=== PATIENT | male | born 1940 | race Caucasian/White ===

== ENCOUNTER 2018-08-29 19:51 | Observation (INO) | payer OTHER ==
[2018-08-29 20:22] LABS: Absolute Lymphocytes (CBC) 0.7 K/uL (0.7-4.9); Absolute Monocytes 0.3 K/uL (0.1-1.3); Absolute Neutrophil 2.8 K/uL (1.8-8.0); Basophils % 0.9 % (0-1.3); Eosinophils % 10.1 % (0-4.4); Hematocrit 36.7 % (39.6-49.0); Lymphocytes % 15.8 % (15.3-44.8); MCH 33.4 pg (27.0-35.0); MCV 95.1 fL (80-100); MPV 7.9 fL (7.6-11.3); Monocytes % 7.1 % (3.3-12.3); RBC Red Blood Cell Count 3.86 M/uL (4.33-5.43)
[2018-08-29] MEDS ORDERED: THIAMINE 200 MG/2 ML INJ ONE (20:22)
[2018-08-29] MEDS ORDERED: NA CHLORIDE 0.9% 1,000 ML ONE (20:22)
[2018-08-29] MEDS ORDERED: TETANUS & DIPHTHERIA TOX,ADULT 0.5 ML VIAL ONE (20:23)
[2018-08-29 20:26] LABS: Protime INR 0.92
--- NOTE | 2018-08-29 20:54 | EDPHYS ---
Physician Documentation [facility] Name: Jimbo Cat Age: 78 yrs Sex: Male : 1940 Arrival Date: 08/29/2018 Time: 19:53 Bed 3 Private MD: ED Physician Terry Sanderson HPI: 08/29 20:06 This 78 yrs old Male presents to ER via EMS with complaints of Fall Injury. lubna 20:06 Details of fall: The patient fell from an upright position, while walking. Onset: The lubna symptoms/episode began/occurred just prior to arrival. Associated injuries: The patient sustained injury to the head. Severity of symptoms: At their worst the symptoms were mild, moderate, in the emergency department the symptoms are unchanged. The patient has not experienced similar symptoms in the past. Historical: - Allergies: 08/30 00:00 No Known Allergies; rr5 - Home Meds: 08/29 19:59 carvedilol Oral [Active]; Lasix Oral [Active]; Primidone Oral [Active]; Eliquis 5 mg tl2 oral tab 1 tab 2 times per day [Active]; Protonix 40 mg Oral TbEC 1 tab once daily [Active]; Plavix 75 mg Oral tab 1 tab once daily [Active]; metoprolol tartrate 25 mg Oral tab 1 tab 2 times per day [Active]; - PMHx: 19:59 Alcoholism; Diabetes; HEART FAILURE; Hypertension; possible dementia; CVA; tl2 - Immunization history: Last tetanus immunization: unknown. - Social history:: Smoking status: Patient/guardian denies using tobacco. - Ebola Screening: : No symptoms or risks identified at this time. ROS: 20:09 Constitutional: Negative for fever, chills, and weight loss, Eyes: Negative for injury, lubna pain, redness, and discharge, ENT: Negative for injury, pain, and discharge, Neck: Negative for injury, pain, and swelling, Cardiovascular: Negative for chest pain, palpitations, and edema, Respiratory: Negative for shortness of breath, cough, wheezing, and pleuritic chest pain, Abdomen/GI: Negative for abdominal pain, nausea, vomiting, diarrhea, and constipation, Back: Negative for injury and pain, : Negative for injury, bleeding, discharge, and swelling, MS/Extremity: Negative for injury and deformity, Psych: Negative for depression, anxiety, suicide ideation, homicidal ideation, and hallucinations, Allergy/Immunology: Negative for hives, rash, and allergies, Endocrine: Negative for neck swelling, polydipsia, polyuria, polyphagia, and marked weight changes, Hematologic/Lymphatic: Negative for swollen nodes, abnormal bleeding, and unusual bruising. 20:09 Skin: Positive for laceration(s). Exam: 20:09 Constitutional: This is a well developed, well nourished patient who is awake, alert, lubna and in no acute distress. Eyes: Pupils equal round and reactive to light, extra-ocular motions intact. Lids and lashes normal. Conjunctiva and sclera are non-icteric and not injected. Cornea within normal limits. Periorbital areas with no swelling, redness, or edema. ENT: Nares patent. No nasal discharge, no septal abnormalities noted. Tympanic membranes are normal and external auditory canals are clear. Oropharynx with no redness, swelling, or masses, exudates, or evidence of obstruction, uvula midline. Mucous membranes moist. Neck: Trachea midline, no thyromegaly or masses palpated, and no cervical lymphadenopathy. Supple, full range of motion without nuchal rigidity, or vertebral point tenderness. No Meningismus. Chest/axilla: Normal chest wall appearance and motion. Nontender with no deformity. No lesions are appreciated. Cardiovascular: Regular rate and rhythm with a normal S1 and S2. No gallops, murmurs, or rubs. Normal PMI, no JVD. No pulse deficits. Respiratory: Lungs have equal breath sounds bilaterally, clear to auscultation and percussion. No rales, rhonchi or wheezes noted. No increased work of breathing, no retractions or nasal flaring. Abdomen/GI: Soft, non-tender, with normal bowel sounds. No distension or tympany. No guarding or rebound. No evidence of tenderness throughout. Back: No spinal tenderness. No costovertebral tenderness. Full range of motion. Male : Normal genitalia with no discharge or lesions. Skin: Warm, dry with normal turgor. Normal color with no rashes, no lesions, and no evidence of cellulitis. MS/ Extremity: Pulses equal, no cyanosis. Neurovascular intact. Full, normal range of motion. Neuro: Awake and alert, GCS 15, oriented to person, place, time, and situation. Cranial nerves II-XII grossly intact. Motor strength 5/5 in all extremities. Sensory grossly intact. Cerebellar exam normal. Normal gait. Psych: Awake, alert, with orientation to person, place and time. Behavior, mood, and affect are within normal limits. 20:09 Head/face: Noted is swelling, tenderness, that is mild, of the forehead. Vital Signs: 19:59 BP 186 / 90; Pulse 68; Resp 14; Temp 97.7(O); Pulse Ox 100% on R/A; Weight 70.31 kg; tl2 Height 5 ft. 5 in. (165.10 cm); 20:53 BP 171 / 95; Pulse 64; Resp 16; Pulse Ox 100% on R/A; tl2 21:59 BP 146 / 83; Pulse 62; Resp 18; Pulse Ox 100% on R/A; tl2 22:26 BP 158 / 87; Pulse 60; Resp 18; Pulse Ox 100% on R/A; tl2 23:15 BP 131 / 57; Pulse 59; Resp 14; Pulse Ox 100% on R/A; rr5 23:57 BP 120 / 50; Pulse 60; Resp 16; Pulse Ox 100% on R/A; rr5 19:59 Body Mass Index 25.79 (70.31 kg, 165.10 cm) tl2 Anderson Coma Score: 19:59 Eye Response: spontaneous(4). Verbal Response: oriented(5). Motor Response: obeys tl2 commands(6). Total: 15. 20:53 Eye Response: spontaneous(4). Verbal Response: oriented(5). Motor Response: obeys tl2 commands(6). Total: 15. Trauma Score (Adult): 19:59 Eye Response: spontaneous(1); Verbal Response: oriented(1); Motor Response: obeys tl2 commands(2); Systolic BP: > 89 mm Hg(4); Respiratory Rate: 10 to 29 per min(4); Anderson Score: 15; Trauma Score: 12 20:53 Eye Response: spontaneous(1); Verbal Response: oriented(1); Motor Response: obeys tl2 commands(2); Systolic BP: > 89 mm Hg(4); Respiratory Rate: 10 to 29 per min(4); Cleopatra Score: 15; Trauma Score: 12 23:15 Eye Response: spontaneous(1); Verbal Response: oriented(1); Motor Response: obeys rr5 commands(2); Systolic BP: > 89 mm Hg(4); Respiratory Rate: 10 to 29 per min(4); Anderson Score: 15; Trauma Score: 12 23:57 Eye Response: spontaneous(1); Verbal Response: oriented(1); Motor Response: obeys rr5 commands(2); Systolic BP: > 89 mm Hg(4); Respiratory Rate: 10 to 29 per min(4); Anderson Score: 15; Trauma Score: 12 MDM: 19:59 Patient medically screened. [facility] 20:12 Data reviewed: vital signs, nurses notes, lab test result(s), EKG, radiologic studies, [facility] CT scan, plain films. 08/29 20:06 Order name: Basic Metabolic Panel [facility] 08/29 20:06 Order name: CBC with Diff [facility] 08/29 20:06 Order name: LFT's [facility] 08/29 20:06 Order name: Magnesium [facility] 08/29 20:06 Order name: NT PRO-BNP [facility] 08/29 20:06 Order name: PT-INR [facility] 08/29 20:06 Order name: Troponin (emerg Dept Use Only); Complete Time: 21:42 [facility] 08/29 20:06 Order name: Acetaminophen; Complete Time: 21:42 [facility] 08/29 20:06 Order name: ETOH Level; Complete Time: 21:08 [facility] 08/29 20:06 Order name: Ptt, Activated; Complete Time: 20:48 [facility] 08/29 20:06 Order name: Salicylate; Complete Time: 21:42 [facility] 08/29 20:06 Order name: Urine Drug Screen; Complete Time: 21:08 [facility] 08/29 20:06 Order name: Lipase; Complete Time: 21:42 [facility] 08/29 20:07 Order name: Basic Metabolic Panel; Complete Time: 21:42 [facility] 08/29 20:06 Order name: XRAY Chest (1 view); Complete Time: 21:08 [facility] 08/29 20:06 Order name: EKG; Complete Time: 20:07 [facility] 08/29 20:06 Order name: Cardiac monitoring; Complete Time: 20:08 [facility] 08/29 20:06 Order name: EKG - Nurse/Tech; Complete Time: 21:03 [facility] 08/29 20:06 Order name: IV Saline Lock; Complete Time: 20:08 [facility] 08/29 20:06 Order name: CT Head C Spine; Complete Time: 21:08 [facility] 08/29 20:07 Order name: CBC with Automated Diff; Complete Time: 20:48 [facility] 08/29 20:07 Order name: Liver (Hepatic) Function; Complete Time: 21:42 [facility] 08/29 20:07 Order name: Magnesium; Complete Time: 21:42 [facility] 08/29 20:07 Order name: NT PRO-BNP; Complete Time: 21:42 [facility] 08/29 20:07 Order name: Protime (+INR); Complete Time: 20:48 [facility] 08/29 20:54 Order name: Urine Dipstick--Ancillary (enter results) 08/29 21:52 Order name: Head Brain Wo Cont [facility] 08/29 20:06 Order name: Labs collected and sent; Complete Time: 20:08 [facility] 08/29 20:06 Order name: O2 Per Protocol; Complete Time: 20:08 [facility] 08/29 20:06 Order name: O2 Sat Monitoring; Complete Time: 20:08 [facility] 08/29 20:06 Order name: Urine Dipstick-Ancillary (obtain specimen); Complete Time: 20:52 [facility] 08/29 20:06 Order name: Wound dressing; Complete Time: 21:02 [facility] Administered Medications: 20:37 Drug: Tetanus-Diphtheria Toxoid Adult 0.5 ml {Research Methodologist: [employer]. Exp: rr5 05/20/2021. Lot #: [id number]. } Route: IM; Site: left deltoid; 21:40 Follow up: Response: No adverse reaction aa1 21:02 Drug: NS 0.9% 1000 ml Route: IV; Rate: 125 ml/hr; Site: right antecubital; tl2 12 00:20 Follow up: IV Status: Infusion continued upon admission aa1 08/29 21:02 Drug: Thiamine 100 mg Route: IV; Rate: bolus; Site: right antecubital; tl2 21:12 Follow up: IV Status: Completed infusion aa1 Disposition: 08/29/18 20:53 Hospitalization ordered by Griffin Medina for Observation. Preliminary diagnosis are Fall due to bumping against object, Alcohol abuse with intoxication, Superficial injury of head, Altered mental status, unspecified, Cardiomegaly - elevated troponin, Anemia, unspecified, Unspecified kidney failure. - Bed requested for Telemetry/MedSurg (observation). - Status is Observation. aa1 - Condition is Fair. - Problem is new. - Symptoms have improved. UTI on Admission? No Signatures: Dispatcher [employer] EDMS Elis Caldera RN RN aa1 Terry Sanderson MD MD cha Ballard, Brenda, RN RN bb Melinda Jameson RN RN tl2 Richard Barron RN RN rr5 Corrections: (The following items were deleted from the chart) 21:25 20:53 Hospitalization Ordered by Griffin Medina MD for Observation. Preliminary bb diagnosis is Fall due to bumping against object; Alcohol abuse with intoxication; Superficial injury of head; Altered mental status, unspecified. Bed requested for Telemetry/MedSurg (observation). Status is Observation. Condition is Fair. Problem is new. Symptoms have improved. UTI on Admission? No. lubna 21:43 21:25 08/29/2018 20:53 Hospitalization Ordered by Griffin Medina MD for Observation. lubna Preliminary diagnosis is Fall due to bumping against object; Alcohol abuse with intoxication; Superficial injury of head; Altered mental status, unspecified. Bed requested for Telemetry/MedSurg (observation). Status is Observation. Condition is Fair. Problem is new. Symptoms have improved. UTI on Admission? No. bb 21:44 21:43 08/29/2018 20:53 Hospitalization Ordered by Griffin Medina MD for Observation. lubna Preliminary diagnosis is Fall due to bumping against object; Alcohol abuse with intoxication; Superficial injury of head; Altered mental status, unspecified; Cardiomegaly; Anemia, unspecified; Unspecified kidney failure. Bed requested for Telemetry/MedSurg (observation). Status is Observation. Condition is Fair. Problem is new. Symptoms have improved. UTI on Admission? No. lubna 08/30 00:24 08/29 21:44 08/29/2018 20:53 Hospitalization Ordered by Griffin Medina MD for aa1 Observation. Preliminary diagnosis is Fall due to bumping against object; Alcohol abuse with intoxication; Superficial injury of head; Altered mental status, unspecified; Cardiomegaly - elevated troponin; Anemia, unspecified; Unspecified kidney failure. Bed requested for Telemetry/MedSurg (observation). Status is Observation. Condition is Fair. Problem is new. Symptoms have improved. UTI on Admission? No. lubna
--- NOTE | 2018-08-29 20:54 | ER ---
Nurse's Notes [facility] Name: Jimbo Cat Age: 78 yrs Sex: Male : 1940 Arrival Date: 08/29/2018 Time: 19:53 Bed 3 Private MD: Diagnosis: Fall due to bumping against object;Alcohol abuse with intoxication;Superficial injury of head;Altered mental status, unspecified;Cardiomegaly-elevated troponin;Anemia, unspecified;Unspecified kidney failure Presentation: 08/29 19:53 Presenting complaint: EMS states: Pt fell approx two hours ago and hit his head on the tl2 porch. Pt initially refused transport. Pt is AOx3 with ETOH on board. Pt has abrasion to left eyebrow, bleeding controlled. Pt is on Eliquis and Plavix. Care prior to arrival: None. Mechanism of Injury: Fall from standing position. Trauma event details: Injury occurred in the [facility]. 19:53 Acuity: SYDNIE 2 tl2 19:53 Method Of Arrival: EMS: [facility] tl2 20:04 Transition of care: patient was not received from another setting of care. Onset of tl2 symptoms was August 29, 2018 at 18:00. Risk Assessment: Do you want to hurt yourself or someone else? Patient reports no desire to harm self or others. Initial Sepsis Screen: Does the patient meet any 2 criteria? No. Patient's initial sepsis screen is negative. Does the patient have a suspected source of infection? No. Patient's initial sepsis screen is negative. Trauma Activation: Alert Physician: ED Physician; Name: Kin; Notified At: 19:43; Arrived At: 19:43 Physician: General Surgeon; Name: ; Notified At: 19:43; Arrived At: Physician: Radiology; Name: Eduardo Serra; Notified At: 19:43; Arrived At: 19:43 Physician: Respiratory; Name: ; Notified At: 19:43; Arrived At: Physician: Lab; Name: ; Notified At: 19:43; Arrived At: Historical: - Allergies: 08/30 00:00 No Known Allergies; rr5 - Home Meds: 12/11 19:59 carvedilol Oral [Active]; Lasix Oral [Active]; Primidone Oral [Active]; Eliquis 5 mg tl2 oral tab 1 tab 2 times per day [Active]; Protonix 40 mg Oral TbEC 1 tab once daily [Active]; Plavix 75 mg Oral tab 1 tab once daily [Active]; metoprolol tartrate 25 mg Oral tab 1 tab 2 times per day [Active]; - PMHx: 19:59 Alcoholism; Diabetes; HEART FAILURE; Hypertension; possible dementia; CVA; tl2 - Immunization history: Last tetanus immunization: unknown. - Social history:: Smoking status: Patient/guardian denies using tobacco. - Ebola Screening: : No symptoms or risks identified at this time. Screenin:59 Abuse screen: Denies threats or abuse. Nutritional screening: No deficits noted. tl2 Tuberculosis screening: No symptoms or risk factors identified. Fall risk At risk due to injury, age, prior history of falls. 20:04 Fall Risk Fall in past 12 months (25 points). IV access (20 points). tl2 Primary Survey: 19:59 A: Airway: patent. Breathing/Chest: Respiratory pattern: regular, Respiratory effort: tl2 spontaneous, unlabored, Chest inspection: symmetrical rise and fall of the chest. Circulation: Skin color: pink. Disability Alert. 20:00 Reassessment Airway Airway Patent Breathing/Chest Respiratory pattern Regular tl2 Respiratory effort Spontaneous Unlabored Circulation Color [place] Disability Alert. Secondary Survey: 19:59 HEENT: Face Other abrasion to left eyebrow. Gastrointestinal: No deficits noted. : No tl2 deficits noted. Musculoskeletal: Circulation, motion, and sensation intact. Range of motion: intact in all extremities. Assessment: 19:53 General: Appears in no apparent distress. uncomfortable, Behavior is calm, cooperative, tl2 appropriate for age, Smells of alcohol. Pain: Complains of pain in forehead. Neuro: Level of Consciousness is awake, alert, obeys commands, Oriented to person, place, time, situation, Denies numbness. Cardiovascular: Denies chest pain. Respiratory: Airway is patent Respiratory effort is even, unlabored, Respiratory pattern is regular, symmetrical, Denies shortness of breath. GI: No signs and/or symptoms were reported involving the gastrointestinal system. Derm: Skin is pink, warm \T\ dry. Injury Description: Abrasion sustained to left eyebrow is dirty, scabbed, was sustained 2-4 hours ago. 21:00 Reassessment: pt was standing using the urinal and stumbled forward hitting his head on tl2 the trauma cart. Small hematoma noted on the top of his head, no bleeding. Dr. Sanderson notified, declined need for repeat CT, ordered for ice pack. 22:13 Reassessment: Dr. Gimenez ordered for repeat head CT, will not transfer pt to floor tl2 until results are back. 23:57 Reassessment: Patient appears in no apparent distress at this time. Patient is alert, rr5 oriented x 3, equal unlabored respirations, skin warm/dry/pink. Report given to Joanna on 4th floor. Vital Signs: 19:59 BP 186 / 90; Pulse 68; Resp 14; Temp 97.7(O); Pulse Ox 100% on R/A; Weight 70.31 kg; tl2 Height 5 ft. 5 in. (165.10 cm); 20:53 BP 171 / 95; Pulse 64; Resp 16; Pulse Ox 100% on R/A; tl2 21:59 BP 146 / 83; Pulse 62; Resp 18; Pulse Ox 100% on R/A; tl2 22:26 BP 158 / 87; Pulse 60; Resp 18; Pulse Ox 100% on R/A; tl2 23:15 BP 131 / 57; Pulse 59; Resp 14; Pulse Ox 100% on R/A; rr5 23:57 BP 120 / 50; Pulse 60; Resp 16; Pulse Ox 100% on R/A; rr5 19:59 Body Mass Index 25.79 (70.31 kg, 165.10 cm) tl2 Vitals: 21:59 Cardiac Rhythm Assessment Paced. tl2 Arab Coma Score: 19:59 Eye Response: spontaneous(4). Verbal Response: oriented(5). Motor Response: obeys tl2 commands(6). Total: 15. 20:53 Eye Response: spontaneous(4). Verbal Response: oriented(5). Motor Response: obeys tl2 commands(6). Total: 15. Trauma Score (Adult): 19:59 Eye Response: spontaneous(1); Verbal Response: oriented(1); Motor Response: obeys tl2 commands(2); Systolic BP: > 89 mm Hg(4); Respiratory Rate: 10 to 29 per min(4); Cleopatra Score: 15; Trauma Score: 12 20:53 Eye Response: spontaneous(1); Verbal Response: oriented(1); Motor Response: obeys tl2 commands(2); Systolic BP: > 89 mm Hg(4); Respiratory Rate: 10 to 29 per min(4); Cleopatra Score: 15; Trauma Score: 12 23:15 Eye Response: spontaneous(1); Verbal Response: oriented(1); Motor Response: obeys rr5 commands(2); Systolic BP: > 89 mm Hg(4); Respiratory Rate: 10 to 29 per min(4); Cleopatra Score: 15; Trauma Score: 12 23:57 Eye Response: spontaneous(1); Verbal Response: oriented(1); Motor Response: obeys rr5 commands(2); Systolic BP: > 89 mm Hg(4); Respiratory Rate: 10 to 29 per min(4); Cleopatra Score: 15; Trauma Score: 12 ED Course: 19:53 Patient arrived in ED. tl2 19:55 Triage completed. tl2 19:59 Terry Sanderson MD is Attending Physician. lubna 19:59 Patient has correct armband on for positive identification. Bed in low position. Call tl2 light in reach. Side rails up X2. 19:59 Inserted saline lock: 18 gauge in right antecubital area, using aseptic technique. tl2 Blood collected. placed by SABINE Gillis. Patient maintains SpO2 saturation greater than 95% on room air. 20:04 Thermoregulation: warm blanket given to patient. tl2 20:05 Arm band placed on right wrist. tl2 20:11 CT Head C Spine Sent. mw2 20:11 Basic Metabolic Panel Sent. mw2 20:11 CBC with Diff Sent. mw2 20:11 LFT's Sent. mw2 20:11 Magnesium Sent. mw2 20:11 NT PRO-BNP Sent. mw2 20:12 PT-INR Sent. mw2 20:17 CT completed. Patient tolerated procedure well. Patient moved back from CT. nj 20:18 CT Head C Spine In Process Unspecified. EDMS 20:26 XRAY Chest (1 view) In Process Unspecified. EDMS 20:51 Griffin Medina MD is Hospitalizing Provider. lubna 22:11 Head Brain Wo Cont In Process Unspecified. EDMS 22:26 Melinda Jameson, RN is Primary Nurse. tl2 23:56 No provider procedures requiring assistance completed. Patient admitted, IV remains in rr5 place. Administered Medications: 20:37 Drug: Tetanus-Diphtheria Toxoid Adult 0.5 ml {Automatic Drill Operator: [employer]. Exp: rr5 05/20/2021. Lot #: [id number]. } Route: IM; Site: left deltoid; 21:40 Follow up: Response: No adverse reaction aa1 21:02 Drug: NS 0.9% 1000 ml Route: IV; Rate: 125 ml/hr; Site: right antecubital; tl2 08/30 00:20 Follow up: IV Status: Infusion continued upon admission aa1 08/29 21:02 Drug: Thiamine 100 mg Route: IV; Rate: bolus; Site: right antecubital; tl2 21:12 Follow up: IV Status: Completed infusion aa1 Outcome: 20:53 Decision to Hospitalize by Provider. [facility] 08/30 00:23 Admitted to Tele accompanied by tech, family with patient, via stretcher, room 401, aa1 with chart, Report called to Joanna Condition: stable Instructed on the need for admit, Demonstrated understanding of instructions. 00:24 Patient left the ED. aa1 Signatures: Dispatcher [employer] EDMS Elis Caldera, RN RN aa1 Terry Sanderson MD MD cha Ballard, Brenda, RN RN bb Knox, Taylor, RN RN tl2 Jacinto Rosen MyKena 2 Richard Barron RN RN rr5
--- NOTE | 2018-08-29 20:54 | RAD REPORT ---
EXAM DESCRIPTION: CT - [id number] - 08/29/2018 8:18 pm CLINICAL HISTORY: Fall, head and neck injury COMPARISON: None. TECHNIQUE: Axial 5 mm thick images of the head were obtained. Axial 2 mm thick images of the cervic al spine were obtained with sagittal and coronal reconstruction images generated and reviewed. All CT scans are performed using dose optimization technique as appropriate and may include automated exposure control or mA/KV adjustment according to patient size. FINDINGS: No intracranial hemorrhage, mass, edema or acute intracranial finding. No suspicion for acute infarct ion. No extra-axial fluid collections. Mastoid air cells and paranasal sinuses are clear. No globe or orbit abnormality seen. Cervical body height and alignment are normal. Disc space narrowing is present from C3 - C6 with prom inent anterior endplate spurring. Posterior endplate spurring is minimal. Mild bilateral foraminal en croachment at C3-4 with advanced C4-5 and C5-6 foraminal encroachment. Canal is borderline stenotic C 4-C7. No fracture or acute bony abnormality. Central canal detail is inherently limited. No paraspinal mass or hematoma. IMPRESSION: No hemorrhage, edema or acute CT Head finding. Advanced cervical spine degenerative change with borderline multilevel central spinal stenosis and fo raminal encroachment. Central canal detail is inherently limited. No cervical fracture or acute finding seen.
[2018-08-29 21:03] LABS: Barbiturates POSITIVE (NEGATIVE); Benzodiazepines NEGATIVE (NEGATIVE); Cocaine NEGATIVE (NEGATIVE); METHAMPHETAM NEGATIVE (NEGATIVE); Methadone NEGATIVE (NEGATIVE); Opiates NEGATIVE (NEGATIVE); Phencyclidine NEGATIVE (NEGATIVE); THC Cannibis NEGATIVE (NEGATIVE)
--- NOTE | 2018-08-29 21:05 | RAD REPORT ---
EXAM DESCRIPTION: RAD - Chest Single View - 08/29/2018 8:26 pm CLINICAL HISTORY: Fall, chest pain COMPARISON: October 2017 TECHNIQUE: AP portable chest image was obtained 2012 hours . FINDINGS: No peripheral mass or consolidation. Lung markings and right infrahilar region partially o bscure the right heart border. This is similar to the prior study. Cardiomegaly is present without fa ilure or volume overload. Trachea is midline. Defibrillator is in place. No measurable pleural effusi on and no pneumothorax. No acute bony abnormality seen. No acute aortic findings suspected. IMPRESSION: Cardiomegaly without acute failure or volume overload. No acute lung parenchymal process.
[2018-08-29 21:32] LABS: ALT/SGPT 28 U/L (12-78); AST/SGOT 31 U/L (15-37); Albumin 3.7 g/dL (3.4-5.0); Alkaline Phosphatase 80 U/L (45-117); BUN Blood Urea Nitrogen 51 mg/dL (7-18); Bicarbonate 27 mmol/L (21-32); Bilirubin Direct 0.1 mg/dL (0-0.2); Bilirubin Total 0.5 mg/dL (0.2-1.0); Glucose Level 94 mg/dL (74-106); Lipase 456 U/L (73-393); NT PRO-BNP 3764 pg/mL (<450); Potassium 4.2 mmol/L (3.5-5.1); Protein, Total 7.7 g/dL (6.4-8.2); Sodium Level 134 mmol/L (136-145); Troponin (Emerg Dept Use Only) 0.08 ng/mL (0.0-0.045)
[2018-08-29 22:06] LABS: Urine Blood 1+ (NEG); Urine Glucose NEGATIVE (NEG); Urine Protein 2+ (NEG); Urine Specific Gravity 1.015 (1.005-1.030); Urine pH 6.5 (5.0-7.0)
--- NOTE | 2018-08-29 23:23 | P.HP ---
Certification for Inpatient Patient admitted to: Observation With expected LOS: <2 Midnights Practitioner: I am a practitioner with admitting privileges, knowledge of patient current condition, hospital course, and medical plan of care. Services: Services provided to patient in accordance with Admission requirements found in Title 42 Section 412.3 of the Code of Federal Regulations Patient History Date of Service: 08/29/18 Reason for admission: fall, ETOH intoxication History of Present Illness: Mr Cat is a 78 years old male with history of alcohol abuse, DM II, HTN, who was hospitalized 2 weeks ago due to CVA with subsequent right leg hemiparesis, who was at home this afternoon, when suddenly his legs collapse and sustained a fall from ground level, having a head trauma with a left frontoparietal area laceration. He lose his conscious. His found him and called 911. The patient states that only drank 1 glass of rhum, ER alcohol level was 227. CT head/neck showed no acute intracranial bleeding but left forehead and left high frontoparietal scalp soft tissue swelling. During his stay in ER, the patient stand up by him self, and again hit his head against a shelf. At my encounter, he was complaining of headache. He has a palpable hematoma on his high left parietal scalp, also chronic hanges on cervical spine. Repited CT scan of the head showed no new changes. The patient was alert and oriented, able to tell me the history. Allergies No Known Allergies Allergy (Verified 11/08/17 06:11) Home medications list reviewed: Yes Home Medications: Aspirin [Aspirin EC 81 MG] 81 mg PO DAILY #90 tablet. 10/13/17 Magnesium Oxide [Mag 0X*] 400 mg PO DAILY #30 tab 11/09/17 Pedi Multivit No.156/Iron Fum [Polyvitamin with Iron Tab Chew] 1 each PO DAILY # 90 tab.chew 11/09/17 Atorvastatin Calcium [Lipitor] 40 mg PO BEDTIME #30 tab 11/24/17 Cyanocobalamin (Vitamin B-12) [Vitamin B-12] 1,000 mcg PO DAILY #90 capsule 05/06 Furosemide [Lasix*] 20 mg PO BIDL #60 tab 11/24/17 Metoprolol Tartrate [Lopressor*] 25 mg PO BID 6AM 6PM #60 tab 11/24/17 Pantoprazole [Protonix Tab*] 40 mg PO ACB #30 tab 11/24/17 Primidone [Mysoline] 250 mg PO BEDTIME #30 tablet 11/24/17 - Past Medical/Surgical History Diabetic: Yes -: pacemaker/defibrillator 2010 (pacemaker evaluated 1 month ago) -: Diabetes mellitus type 2 -: HTN -: Hyperlipidemia -: CVA 2008 -: Depression -: MARZENA cataracts -: Moderate mitral regurgitation -: CHF, systolic dysfunction -: cervical vertebrae surgery x2 -: benign tumor removed from L knee -: appendectomy -: tonsilectomy -: 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 - Family History Mother -: Heart disease, Hypertension, Diabetes, Cancer - Social History Smoking Status: Former smoker Alcohol use: Yes CD- Drugs: No Caffeine use: No Place of Residence: Home Review of Systems 10-point ROS is otherwise unremarkable Physical Examination - Physical Exam General: Alert, In no apparent distress HEENT: PERRLA, Mucous membr. moist/pink, Other (left forehead laceration, left high scalp hematoma), EOMI, Sclerae nonicteric Neck: Supple, 2+ carotid pulse no bruit, No LAD, Without JVD or thyroid abnormality Respiratory: Clear to auscultation bilaterally, Normal air movement Cardiovascular: Normal S1 S2, No gallops Gastrointestinal: Normal bowel sounds, No tenderness Musculoskeletal: No tenderness Integumentary: No rashes Neurological: Normal speech, Normal tone, Normal affect Lymphatics: No axilla or inguinal lymphadenopathy - Studies Laboratory Data (last 24 hrs) 08/29/18 20:00: PT 10.9, INR 0.92, APTT 35.2 08/29/18 20:00: WBC 4.3, Hgb 12.9 L, Hct 36.7 L, Plt Count 153 08/29/18 20:00: Sodium 134 L, Potassium 4.2, BUN 51 H, Creatinine 1.90 H, Glucose 94, Magnesium 2.0, Total Bilirubin 0.5, AST 31, ALT 28, Alkaline Phosphatase 80, Lipase 456 H Assessment and Plan - Problems (Diagnosis) (1) Fall Current Visit: Yes Status: Acute (2) Head trauma Current Visit: Yes Status: Acute Qualifiers: Encounter type: initial encounter Qualified Code(s): S09.90XA - Unspecified injury of head, initial encounter (3) Alcohol intoxication Current Visit: Yes Status: Acute Qualifiers: Complication of substance-induced condition: with unspecified complication Qualified Code(s): F10.929 - Alcohol use, unspecified with intoxication, unspecified (4) Acute kidney injury superimposed on CKD Onset Date: 10/13/17 Current Visit: No Status: Acute (5) Chronic systolic CHF (congestive heart failure) Onset Date: 10/13/17 Current Visit: No Status: Acute - Plan The patient will be admitted to the hospital due to head trauma secondary to a fall, and alcohol intoxication. Will order banana bag and symptomatic medication for pain. Will order PT evaluation also. May go home in AM if patient remain stable. - Advance Directives Does patient have a Living Will: No Does patient have a Durable POA for Healthcare: Yes - Code Status/Comfort Care Code Status Assessed: Yes Code Status: Full Code
[2018-08-30] MEDS ORDERED: TRAMADOL HCL 50 MG TAB PO PRN (00:43)
[2018-08-30] MEDS ORDERED: ONDANSETRON 4 MG/2 ML VIAL IV PRN (00:43)
[2018-08-30] MEDS ORDERED: ACETAMINOPHEN 500 MG TAB PO PRN (00:43)
[2018-08-30 01:40] VITALS: BMI 25.7
[2018-08-30 06:18] LABS: Absolute Lymphocytes (CBC) 0.5 K/uL (0.7-4.9); Absolute Monocytes 0.3 K/uL (0.1-1.3); Absolute Neutrophil 3.1 K/uL (1.8-8.0); Basophils % 0.9 % (0-1.3); Eosinophils % 8.6 % (0-4.4); Hematocrit 31.9 % (39.6-49.0); MCH 33.7 pg (27.0-35.0); MCV 94.8 fL (80-100); MPV 7.7 fL (7.6-11.3); Monocytes % 6.2 % (3.3-12.3); RBC Red Blood Cell Count 3.36 M/uL (4.33-5.43)
[2018-08-30 06:36] LABS: Potassium 4.2 mmol/L (3.5-5.1)
--- NOTE | 2018-08-30 06:58 | EKG ---
Test Date: 2018-08-29 Test Time: 20:58:41 Administrative Asst: YOCASTA MEASUREMENT RESULTS: Intervals: Rate: 62 MS: 194 QRSD: 172 QT: 498 QTc: 505 [place]: P: -75 MS: 194 QRS: 263 T: 85 INTERPRETIVE STATEMENTS: AV dual-paced rhythm Abnormal ECG Compared to ECG 11/23/2017 10:05:28 Ventricular premature complex(es) no longer present Electronically Signed On 08-30-18 06:58:02 TITLE ATTORNEY by Hardeep Longoria
[2018-08-30] MEDS: INSULIN -REGULAR HUMAN 50 UNIT/0.5 ML ML SQ SCH ×2 (07:30→11:30)
--- NOTE | 2018-08-30 08:38 | RAD REPORT ---
EXAM DESCRIPTION: CT - Head Brain Wo Cont - 08/30/2018 2:15 am CLINICAL HISTORY: Head injury status post fall. Headache COMPARISON: None. TECHNIQUE: Computed axial tomography of the head was obtained. IV contrast was not requested. All CT scans are performed using dose optimization technique as appropriate and may include automated exposure control or mA/KV adjustment according to patient size. FINDINGS: Left frontal scalp swelling without an underlying skull fracture An intracranial bleed is not seen . The ventricles are normal in caliber. No extra-axial fluid collection is noted. Fluid within the sinuses/ mastoids is not seen. IMPRESSION: No acute intracranial abnormality is seen. If patient's symptoms persist MRI of the bra in would be recommended.
[2018-08-30] MEDS ORDERED: FUROSEMIDE 20 MG TABLET PO SCH (09:00)
[2018-08-30] MEDS ORDERED: ASPIRIN EC 81 MG TAB PO SCH (09:00)
[2018-08-30] MEDS ORDERED: FOLIC ACID 1 MG, MULTIVITAMINS INJ 10 ML, THIAMINE HCL 100 MG in NA CHLORIDE 0.9% 1,000 ML IV SCH (09:00)
[2018-08-30] MEDS ORDERED: CLOPIDOGREL 75 MG TABLET PO SCH (09:00)
[2018-08-30 09:21] VITALS: O2SAT 99
[2018-08-30] MEDS: PRIMIDONE 250 MG TAB PO SCH ×2 (09:47→14:04)
[2018-08-30 12:01] VITALS: BP 154/75; TEMP 99.4
--- NOTE | 2018-08-30 13:12 | P.DS ---
Admission Date: 08/29/18 Discharge Date: 08/30/18 Primary Care Provider: Dr. Powell Disposition: ROUTINE DISCHARGE Discharge Condition: GOOD Reason for Admission: fall, ETOH intoxication Consultations: None Procedures: CT chest: COMPARISON: None. TECHNIQUE: Axial 5 mm thick images of the head were obtained. Axial 2 mm thick images of the cervical spine were obtained with sagittal and coronal reconstruction images generated and reviewed. All CT scans are performed using dose optimization technique as appropriate and may include automated exposure control or mA/KV adjustment according to patient size. FINDINGS: No intracranial hemorrhage, mass, edema or acute intracranial finding. No suspicion for acute infarction. No extra-axial fluid collections. Mastoid air cells and paranasal sinuses are clear. No globe or orbit abnormality seen. Cervical body height and alignment are normal. Disc space narrowing is present from C3 - C6 with prominent anterior endplate spurring. Posterior endplate spurring is minimal. Mild bilateral foraminal encroachment at C3-4 with advanced C4-5 and C5-6 foraminal encroachment. Canal is borderline stenotic C4- C7. No fracture or acute bony abnormality. Central canal detail is inherently limited. No paraspinal mass or hematoma. IMPRESSION: No hemorrhage, edema or acute CT Head finding. Advanced cervical spine degenerative change with borderline multilevel central spinal stenosis and foraminal encroachment. Central canal detail is inherently limited. No cervical fracture or acute finding seen. Repeat CT scan: COMPARISON: None. TECHNIQUE: Computed axial tomography of the head was obtained. IV contrast was not requested. All CT scans are performed using dose optimization technique as appropriate and may include automated exposure control or mA/KV adjustment according to patient size. FINDINGS: Left frontal scalp swelling without an underlying skull fracture An intracranial bleed is not seen . The ventricles are normal in caliber. No extra-axial fluid collection is noted. Fluid within the sinuses/ mastoids is not seen. IMPRESSION: No acute intracranial abnormality is seen. If patient's symptoms persist MRI of the brain would be recommended. CXR: COMPARISON: October 2017 TECHNIQUE: AP portable chest image was obtained 2012 hours . FINDINGS: No peripheral mass or consolidation. Lung markings and right infrahilar region partially obscure the right heart border. This is similar to the prior study. Cardiomegaly is present without failure or volume overload. Trachea is midline. Defibrillator is in place. No measurable pleural effusion and no pneumothorax. No acute bony abnormality seen. No acute aortic findings suspected. IMPRESSION: Cardiomegaly without acute failure or volume overload. No acute lung parenchymal process. Medical Problem List: Fall secondary to alcohol abuse and intoxication Laceration to the left frontal parietal region with small hematoma Hypertension Diabetes mellitus type 2, diet controlled Previous CVA Chronic renal disease stage III Essential tremor Chronic systolic CHF with ejection fraction around 33% History of defibrillator placement Brief History of Present Illness: 78-year-old male with history of alcohol abuse, diabetes, hypertension , previous CVA. Patient came in to the emergency room with a fall. He reported laceration to the left frontal parietal area. Patient did not lose consciousness. Patient admits to drinking excessive amounts of alcohol. Patient was evaluated the emergency room. He was admitted for further evaluation. Hospital Course: Patient presented with a fall related to alcohol abuse and intoxication. Patient had CT scan showed no internal bleeding. Repeat CT scan of the head showed no bleeding. Patient back to baseline. No loss of conscious was identified. Alcohol cessation addressed in detail. Alcohol level was elevated upon admission. At discharge patient will continue with thiamine 100 mg 1 pill daily and folic acid 1 mg daily. Patient will need to follow up with his PCP within 1 week to follow up this hospitalization. Patient to continue with alcohol cessation education. Fall precautions in place. Patient does not desire any need for home health and physical therapy at discharge. atient with small laceration to the left frontoparietal region with small hematoma to the orbital region. No excessive bleeding noted. Patient will continue with wound care daily including cleaning of area with antibacterial soap. Patient may apply Bactroban ointment to the area daily. Patient with hypertension. Blood pressure stable this time. Patient will continue with metoprolol 25 mg 1 pill twice daily. Recommendation is to maintain blood pressures less 150/80. Further adjustment can be done by his PCP. Patient with diabetes mellitus type 2. This is diet-controlled. Recommendation is to maintain blood sugars less than 140 fasting and less than 200 after meals. Further adjustment can be done by his PCP. Patient with history of prior CVA, CAD, and defibrillator placement. Patient will continue with aspirin 81 mg daily and Plavix 75 mg daily. Recommendation is for the patient follow up with cardiology as previously directed. Patient has chronic systolic CHF with ejection fraction of around 33%. Patient will continue with a 1500 cc per day fluid restriction and low-salt diet. Patient will also continue with Lasix 20 mg 1 pill twice daily. Patient is to monitor his weight daily. If his weight increases by more than 5 lb he is to contact his PCP or transporter radiology for further recommended. Patient has essential tremors. Patient will continue with primidone 250 mg 1 pill 3 times a day. Recommendations for the patient follow up with neurology as directed to further monitor. Patient with chronic renal disease, stage III. Recommendation is for the patient follow up with nephrology in 1-2 weeks to follow up this hospitalization. Recommendation to recheck BMP in 1 week to monitor his progress. Recommendation on no further use of nonsteroidal anti- inflammatories. Future medications will need to be renally dosed. Vital Signs/Physical Exam: Temp Pulse Resp BP Pulse Ox 99.4 F 67 16 154/75 H 98 08/30/18 11:58 08/30/18 11:58 08/30/18 11:58 08/30/18 11:58 08/30/18 11:58 General: Alert, In no apparent distress, Oriented x3, Cooperative HEENT: Atraumatic, Other (Small hematoma to the left parietal frontal region) Neck: Supple Respiratory: Clear to auscultation bilaterally, Normal air movement Cardiovascular: Normal pulses, Regular rate/rhythm Gastrointestinal: Normal bowel sounds, Soft and benign, Non-distended, No tenderness, No masses, No rebound, No guarding Musculoskeletal: No tenderness, No warmth Neurological: Normal speech, Normal strength at 5/5 x4 extr, Normal tone, Normal affect Laboratory Data at Discharge: WBC 4.3 K/uL (4.3-10.9) 08/30/18 05:40 Hgb 11.3 g/dL (13.6-17.9) L 08/30/18 05:40 Hct 31.9 % (39.6-49.0) L 08/30/18 05:40 Plt Count 144 K/uL (152-406) L 08/30/18 05:40 PT 10.9 SECONDS (9.5-12.5) 08/29/18 20:00 INR 0.92 08/29/18 20:00 APTT 35.2 SECONDS (24.3-36.9) 08/29/18 20:00 Sodium 138 mmol/L (136-145) 08/30/18 05:40 Potassium 4.2 mmol/L (3.5-5.1) 08/30/18 05:40 BUN 58 mg/dL (7-18) H 08/30/18 05:40 Creatinine 1.90 mg/dL (0.55-1.3) H 08/30/18 05:40 Glucose 95 mg/dL (74-106) 08/30/18 05:40 Magnesium 2.0 mg/dL (1.8-2.4) 08/29/18 20:00 Total Bilirubin 0.5 mg/dL (0.2-1.0) 08/29/18 20:00 AST 31 U/L (15-37) 08/29/18 20:00 ALT 28 U/L (12-78) 08/29/18 20:00 Alkaline Phosphatase 80 U/L (45-117) 08/29/18 20:00 Lipase 456 U/L (73-393) H 08/29/18 20:00 Home Medications: Aspirin [Aspirin EC 81 MG] 81 mg PO DAILY #90 tablet. 10/13/17 Furosemide [Lasix*] 20 mg PO BIDL #60 tab 11/24/17 Metoprolol Tartrate [Lopressor*] 25 mg PO BID 6AM 6PM #60 tab 11/24/17 Clopidogrel Bisulfate [Plavix*] 75 mg PO DAILY 08/30/18 Folic Acid 1 mg PO DAILY #90 tablet 08/30/18 Mupirocin Oint [Bactroban 2% Ointment] 8 appl TOP BID #1 tube 08/30/18 Primidone [Mysoline] 250 mg PO TID 08/30/18 Thiamine HCl 100 mg PO DAILY #90 tablet 08/30/18 New Medications: Folic Acid 1 mg PO DAILY #90 tablet Mupirocin Oint [Bactroban 2% Ointment] 8 appl TOP BID #1 tube Thiamine HCl 100 mg PO DAILY #90 tablet Patient Discharge Instructions: 1. Patient will need to follow up his PCP in 1 week to follow up this hospitalization. 2. Patient presented with a fall related to alcohol abuse and intoxication. Patient had CT scan showed no internal bleeding. Repeat CT scan of the head showed no bleeding. Patient back to baseline. No loss of conscious was identified. Alcohol cessation addressed in detail. Alcohol level was elevated upon admission. At discharge patient will continue with thiamine 100 mg 1 pill daily and folic acid 1 mg daily. Patient will need to follow up with his PCP within 1 week to follow up this hospitalization. Patient to continue with alcohol cessation education. Fall precautions in place. Patient does not desire any need for home health and physical therapy at discharge. 3. Patient with small laceration to the left frontoparietal region with small hematoma to the orbital region. No excessive bleeding noted. Patient will continue with wound care daily including cleaning of area with antibacterial soap. Patient may apply Bactroban ointment to the area daily. 4. Patient with hypertension. Blood pressure stable this time. Patient will continue with metoprolol 25 mg 1 pill twice daily. Recommendation is to maintain blood pressures less 150/80. Further adjustment can be done by his PCP. 5. Patient with diabetes mellitus type 2. This is diet-controlled. Recommendation is to maintain blood sugars less than 140 fasting and less than 200 after meals. Further adjustment can be done by his PCP. 6. Patient with history of prior CVA, CAD, and defibrillator placement. Patient will continue with aspirin 81 mg daily and Plavix 75 mg daily. Recommendation is for the patient follow up with cardiology as previously directed. 7. Patient has chronic systolic CHF with ejection fraction of around 33%. Patient will continue with a 1500 cc per day fluid restriction and low-salt diet. Patient will also continue with Lasix 20 mg 1 pill twice daily. Patient is to monitor his weight daily. If his weight increases by more than 5 lb he is to contact his PCP or transporter radiology for further recommended. 8. Patient has essential tremors. Patient will continue with primidone 250 mg 1 pill 3 times a day. Recommendations for the patient follow up with neurology as directed to further monitor. 9. Patient with chronic renal disease, stage III. Recommendation is for the patient follow up with nephrology in 1-2 weeks to follow up this hospitalization. Recommendation to recheck BMP in 1 week to monitor his progress. Recommendation on no further use of nonsteroidal anti- inflammatories. Future medications will need to be renally dosed. Diet: AHA Activity: Fall precautions Time spent managing pt's care (in minutes): 55
[2018-08-30] MEDS ORDERED: METOPROLOL TAR 25 MG TAB PO SCH (18:00)
[2018-08-31] MEDS ORDERED: PANTOPRAZOLE 40MG TABLET PO SCH (06:30)
== END 2018-08-30 16:15 | disposition home or self-care (01) ==
LOC: ER 19:51 → ERHOLD 23:23 → 4TH 23:59
PROVIDERS: ADMIT Internal Medicine; ATTEND Internal Medicine
DX: F10.129 Alcohol abuse with intoxication, unspecified (principal); S01.01XA Laceration without foreign body of scalp, initial encounter; W18.30XA Fall on same level, unspecified, initial encounter; Y92.009 Unspecified place in unspecified non-institutional (private) residence as the place of occurrence of the external cause; I13.0 Hypertensive heart and chronic kidney disease with heart failure and stage 1 through stage 4 chronic kidney disease, or unspecified chronic kidney disease; E11.22 Type 2 diabetes mellitus with diabetic chronic kidney disease; N18.3 Chronic kidney disease, stage 3 (moderate); I50.22 Chronic systolic (congestive) heart failure; G25.0 Essential tremor; I25.10 Atherosclerotic heart disease of native coronary artery without angina pectoris; I69.351 Hemiplegia and hemiparesis following cerebral infarction affecting right dominant side; Z95.810 Presence of automatic (implantable) cardiac defibrillator; Z23 Encounter for immunization
CPT/HCPCS: 36415; 70450; 71045; 72125; 80048; 80076; 80307; 80320; 80329; 81003; 82962; 83690; 83735; 83880; 84484; 85025; 85610; 85730; 90714; 93005; 94760; 96361; 96374; 97163; 99285; G0378; J3411; J7030

== ENCOUNTER 2018-12-04 17:50 | Observation (INO) | payer OTHER ==
[2018-12-04] MEDS ORDERED: ALBUTEROL 2.5 MG/3 ML NEB SOL ONE (20:23)
[2018-12-04] MEDS ORDERED: METHYLPREDNISOLONE 125 MG INJ ONE (20:23)
[2018-12-04] MEDS ORDERED: ASPIRIN 81 MG CHEWABLE TABLET ONE (20:46)
[2018-12-04 20:47] LABS: Absolute Lymphocytes (CBC) 0.8 K/uL (0.7-4.9); Absolute Monocytes 0.5 K/uL (0.1-1.3); Absolute Neutrophil 4.4 K/uL (1.8-8.0); Basophils % 1.1 % (0-1.3); Eosinophils % 13.9 % (0-4.4); Hematocrit 34.6 % (39.6-49.0); Lymphocytes % 11.3 % (15.3-44.8); MPV 8.4 fL (7.6-11.3); RBC Red Blood Cell Count 3.66 M/uL (4.33-5.43)
[2018-12-04 20:51] LABS: Protime INR 1.04
[2018-12-04 21:08] LABS: ALT/SGPT 26 U/L (12-78); AST/SGOT 20 U/L (15-37); Albumin 3.5 g/dL (3.4-5.0); Alkaline Phosphatase 94 U/L (45-117); BUN Blood Urea Nitrogen 46 mg/dL (7-18); Bicarbonate 29 mmol/L (21-32); Bilirubin Direct < 0.1 mg/dL (0-0.2); Bilirubin Total 0.2 mg/dL (0.2-1.0); CKMB Creatine Kinase MB 1.2 ng/mL (0.3-3.6); Creatine Phosphokinase 34 U/L (39-308); Glucose Level 99 mg/dL (74-106); Lipase 279 U/L (73-393); Magnesium 1.7 mg/dL (1.8-2.4); NT PRO-BNP 10834 pg/mL (<450); Potassium 3.9 mmol/L (3.5-5.1); Protein, Total 7.2 g/dL (6.4-8.2); Sodium Level 136 mmol/L (136-145); Troponin (Emerg Dept Use Only) 0.07 ng/mL (0.0-0.045)
[2018-12-04] MEDS ORDERED: Magnesium Sulfate 2gm IVPB 2 G/50 ML BAG IV ONE (21:45)
[2018-12-04] MEDS ORDERED: FUROSEMIDE 40 MG/4 ML VIAL ONE (22:35)
--- NOTE | 2018-12-04 22:53 | ER ---
Nurse's Notes [facility] Name: Jimbo Cat Age: 78 yrs Sex: Male : 1940 Arrival Date: 12/04/2018 Time: 17:52 Bed 20 Private MD: Josh Powell Diagnosis: Unspecified combined systolic (congestive) and diastolic (congestive) heart failure Presentation: 12/04 18:10 Presenting complaint: Nonproductive cough, SOB, wheezing x 2-3 days. Transition of hb care: patient was not received from another setting of care. Onset of symptoms was December 02, 2018. Risk Assessment: Do you want to hurt yourself or someone else? Patient reports no desire to harm self or others. Care prior to arrival: None. 18:10 Method Of Arrival: Wheelchair hb 18:10 Acuity: SYDNIE 3 12/05 00:13 Initial Sepsis Screen: Does the patient meet any 2 criteria? No. Patient's initial rv sepsis screen is negative. Does the patient have a suspected source of infection? No. Patient's initial sepsis screen is negative. Historical: - Allergies: 12/04 18:12 No Known Allergies; hb - Home Meds: 18:12 carvedilol Oral [Active]; Lasix Oral [Active]; Eliquis 5 mg Oral tab 1 tab 2 times per hb day [Active]; metoprolol tartrate 25 mg Oral tab 1 tab 2 times per day [Active]; Plavix 75 mg Oral tab 1 tab once daily [Active]; Primidone Oral [Active]; Protonix 40 mg Oral TbEC 1 tab once daily [Active]; - PMHx: 18:12 Alcoholism; CVA; Diabetes; HEART FAILURE; Hypertension; possible dementia; hb - Immunization history:: Adult Immunizations up to date. - Social history:: Smoking status: Patient/guardian denies using tobacco. - Ebola Screening: : No symptoms or risks identified at this time. Screenin:45 Abuse screen: Denies threats or abuse. Denies injuries from another. Nutritional ca1 screening: No deficits noted. Tuberculosis screening: No symptoms or risk factors identified. Fall Risk IV access (20 points). Assessment: 19:45 General: Appears in no apparent distress. comfortable, Behavior is calm, cooperative, ca1 appropriate for age. General: Appears. Pain: Denies pain. Neuro: Level of Consciousness is awake, alert, obeys commands, Oriented to person, place, time, situation. Cardiovascular: Heart tones S1 S2 present Capillary refill is > 3 seconds Rhythm is Respiratory: Reports shortness of breath at rest since 3 days ago Airway is patent Respiratory effort is even, labored, Respiratory pattern is regular, symmetrical, Breath sounds are clear bilaterally. Onset: The symptoms/episode began/occurred gradually, the patient has moderate shortness of breath. GI: Abdomen is round non-distended, Bowel sounds present X 4 quads. Abd is soft and non tender X 4 quads. : No deficits noted. No signs and/or symptoms were reported regarding the genitourinary system. EENT: No deficits noted. No signs and/or symptoms were reported regarding the EENT system. Derm: Skin is fragile, is thin, Skin is pink, warm \T\ dry. Musculoskeletal: Circulation, motion, and sensation intact. Capillary refill < 3 seconds. 20:40 Reassessment: Patient appears in no apparent distress at this time. Patient and/or ca1 family updated on plan of care and expected duration. Pain level reassessed. Patient is alert, oriented x 3, equal unlabored respirations, skin warm/dry/pink. Patient states feeling better. 21:35 Reassessment: Patient appears in no apparent distress at this time. Patient and/or ca1 family updated on plan of care and expected duration. Pain level reassessed. Patient is alert, oriented x 3, equal unlabored respirations, skin warm/dry/pink. Patient states symptoms have improved. 22:29 Reassessment: Patient appears in no apparent distress at this time. Patient and/or ca1 family updated on plan of care and expected duration. Pain level reassessed. Patient is alert, oriented x 3, equal unlabored respirations, skin warm/dry/pink. 12/05 00:13 Reassessment: Patient appears in no apparent distress at this time. Patient and/or rv family updated on plan of care and expected duration. Pain level reassessed. Patient is alert, oriented x 3, equal unlabored respirations, skin warm/dry/pink. Vital Signs: 12/04 18:11 BP 168 / 105; Pulse 64; Resp 24; Temp 97.8; Pulse Ox 98% on R/A; Pain 0/10; hb 19:45 Pulse Ox 80% on R/A; ca1 19:45 BP 162 / 86; Pulse 68; Resp 18; Pulse Ox 98% on 2 lpm NC; ca1 20:15 BP 167 / 105; Pulse 70; Resp 19; Pulse Ox 99% on 2 lpm NC; ca1 20:45 BP 155 / 82; Pulse 67; Resp 18; Pulse Ox 97% on R/A; ca1 21:15 BP 160 / 74; Pulse 66; Resp 19; Pulse Ox 97% on 2 lpm NC; ca1 21:45 BP 161 / 82; Pulse 67; Resp 19; Pulse Ox 97% on 2 lpm NC; ca1 22:15 BP 149 / 81; Pulse 69; Resp 19; Pulse Ox 98% on 2 lpm NC; ca1 22:45 BP 145 / 61; Pulse 65; Resp 19; Pulse Ox 98% on 2 lpm NC; ca1 23:05 BP 156 / 72; Pulse 67; Resp 19; Pulse Ox 98% on 2 lpm NC; ca1 12/05 00:00 BP 150 / 63; Pulse 65; Resp 16; Pulse Ox 98% on 2 lpm NC; rv ED Course: 12/04 17:52 Patient arrived in ED. as 17:52 Josh Powell DO is Private Physician. as 18:11 Triage completed. hb 18:12 Arm band placed on. hb 19:43 Suzette Suarez, RN is Primary Nurse. ca1 19:45 Patient has correct armband on for positive identification. Placed in gown. Bed in low ca1 position. Call light in reach. Side rails up X 1. head of insight on. Pulse ox on. NIBP on. Warm blanket given. 19:48 Terry Fernández PA is PHCP. cp 19:48 Derek Castellanos MD is Attending Physician. cp 20:16 Inserted saline lock: 20 gauge in right antecubital area, using aseptic technique. ca1 Blood collected. 20:20 First set of blood cultures drawn by me. ca1 20:45 Second set of blood cultures drawn by me. ca1 21:56 X-ray completed. Portable x-ray completed in exam room. Patient tolerated procedure az well. 21:58 XRAY Chest (1 view) In Process Unspecified. EDMS 22:50 Griffin Medina MD is Hospitalizing Provider. cp 12/05 00:23 No provider procedures requiring assistance completed. Patient admitted, IV remains in ed1 place. intact, No redness/swelling at site. Administered Medications: 12/04 20:31 Drug: Albuterol 2.5 mg Route: Inhalation; ca1 20:35 Drug: SOLU-Medrol 125 mg Route: IVP; Site: right antecubital; ca1 20:37 Drug: Aspirin Chewable Tablet 324 mg Route: PO; ca1 21:40 Follow up: Response: No adverse reaction ca1 20:51 Drug: Albuterol 2.5 mg Route: Inhalation; ca1 21:35 Drug: Magnesium Sulfate 2 grams Route: IVPB; Infused Over: 1 hrs; Site: right ca1 antecubital; 22:29 Drug: Lasix 40 mg Route: IVP; Site: right antecubital; ca1 23:20 Drug: Albuterol 2.5 mg Route: Inhalation; rv Point of Care Testing: Blood Glucose: 12/05 08:06 Blood Glucose: 116 mg/dL; hb Ranges: Outcome: 12/04 22:52 Decision to Hospitalize by Provider. cp 12/05 00:23 Admitted to ER Hold. Please see [facility] for further documentation. ed1 Condition: stable Discharge instructions given to patient, Instructed on the need for admit, Demonstrated understanding of instructions. 12:14 Patient left the ED. jl7 Signatures: Dispatcher [employer] EDMS Kelley Hartman Erika, RN RN ed1 Terry Fernández PA PA cp Angelica Holly RN RN Nilton Son RN RN jl7 Fabian Adan RN RN Mary Gallo Cheryl, RN RN ca1 Corrections: (The following items were deleted from the chart) 12/04 18:13 18:11 BP 168 / 105; Pulse 64bpm; Resp 20bpm; Pulse Ox 98% RA; Temp 97.8F; Pain 0/10; hb hb 23:00 20:40 Reassessment: Patient appears in no apparent distress at this time. Patient ca1 and/or family updated on plan of care and expected duration. Pain level reassessed. Patient is alert, oriented x 3, equal unlabored respirations, skin warm/dry/pink. Patient states feeling better. ca1
--- NOTE | 2018-12-04 22:53 | EDPHYS ---
Physician Documentation [facility] Name: Jimbo Cat Age: 78 yrs Sex: Male : 1940 Arrival Date: 12/04/2018 Time: 17:52 Bed 20 Private MD: Josh Powell ED Physician Derek Castellanos HPI: 12/04 20:10 This 78 yrs old Male presents to ER via Wheelchair with complaints of Cough, cp Back Pain. 20:10 The patient or guardian reports cough, with productive sputum, difficulty breathing. cp 20:10 Onset: The symptoms/episode began/occurred 3 day(s) ago. Associated signs and symptoms: cp Pertinent positives: back pain, Pertinent negatives: chest pain, diarrhea, fever, sore throat, vomiting. Severity of symptoms: in the emergency department the symptoms are unchanged despite home interventions. Historical: - Allergies: 18:12 No Known Allergies; hb - Home Meds: 18:12 carvedilol Oral [Active]; Lasix Oral [Active]; Eliquis 5 mg Oral tab 1 tab 2 times per hb day [Active]; metoprolol tartrate 25 mg Oral tab 1 tab 2 times per day [Active]; Plavix 75 mg Oral tab 1 tab once daily [Active]; Primidone Oral [Active]; Protonix 40 mg Oral TbEC 1 tab once daily [Active]; - PMHx: 18:12 Alcoholism; CVA; Diabetes; HEART FAILURE; Hypertension; possible dementia; hb - Immunization history:: Adult Immunizations up to date. - Social history:: Smoking status: Patient/guardian denies using tobacco. - Ebola Screening: : No symptoms or risks identified at this time. ROS: 20:15 Constitutional: Negative for body aches, chills, fever, poor PO intake. cp 20:15 Eyes: Negative for injury, pain, redness, and discharge. cp 20:15 ENT: Negative for drainage from ear(s), ear pain, sore throat, difficulty swallowing, difficulty handling secretions. 20:15 Cardiovascular: Negative for chest pain, edema. 20:15 Respiratory: Positive for cough, dyspnea on exertion, orthopnea, shortness of breath, wheezing. 20:15 Abdomen/GI: Negative for abdominal pain, vomiting, diarrhea, constipation, anorexia, black/tarry stool, rectal bleeding. 20:15 Back: Positive for pain at rest, pain with movement. 20:15 : Negative for urinary symptoms. 20:15 Skin: Negative for rash. 20:15 Neuro: Negative for altered mental status, dizziness, headache, syncope, weakness. 20:15 All other systems are negative. Exam: 20:25 Constitutional: The patient appears in no acute distress, alert, awake, cp non-diaphoretic, non-toxic, well developed, well nourished. 20:25 Head/Face: Normocephalic, atraumatic. Eyes: Pupils equal round and reactive to light, cp extra-ocular motions intact. Lids and lashes normal. Conjunctiva and sclera are non-icteric and not injected. Cornea within normal limits. Periorbital areas with no swelling, redness, or edema. ENT: Nares patent. No nasal discharge, no septal abnormalities noted. Tympanic membranes are normal and external auditory canals are clear. Oropharynx with no redness, swelling, or masses, exudates, or evidence of obstruction, uvula midline. Mucous membranes moist. 20:25 Neck: ROM/movement: is normal, is supple, without pain, no range of motions limitations, no meningismus, no nuchal rigidity. 20:25 Chest/axilla: Inspection: normal, Palpation: is normal, no crepitus, no tenderness. 20:25 Cardiovascular: Rate: normal, Rhythm: regular, Pulses: Pulses are 2+ in right radial artery and left radial artery. Edema: is not appreciated, JVD: is not appreciated. 20:25 Respiratory: the patient does not display signs of respiratory distress, Respirations: labored breathing, that is mild, Breath sounds: decreased breath sounds, that are moderate, throughout, stridor, is not appreciated, wheezing: that is mild, is heard diffusely. 20:25 Abdomen/GI: Inspection: abdomen appears normal, Palpation: abdomen is soft and non-tender, in all quadrants. 20:25 Back: pain, is absent, ROM is normal. 20:25 Skin: cellulitis, is not appreciated, no rash present. 20:25 Neuro: Orientation: to person, place \T\ time. Mentation: is normal, Cerebellar function: is grossly normal, Motor: moves all fours, strength is normal, Sensation: is normal. Vital Signs: 18:11 BP 168 / 105; Pulse 64; Resp 24; Temp 97.8; Pulse Ox 98% on R/A; Pain 0/10; hb 19:45 Pulse Ox 80% on R/A; ca1 19:45 BP 162 / 86; Pulse 68; Resp 18; Pulse Ox 98% on 2 lpm NC; ca1 20:15 BP 167 / 105; Pulse 70; Resp 19; Pulse Ox 99% on 2 lpm NC; ca1 20:45 BP 155 / 82; Pulse 67; Resp 18; Pulse Ox 97% on R/A; ca1 21:15 BP 160 / 74; Pulse 66; Resp 19; Pulse Ox 97% on 2 lpm NC; ca1 21:45 BP 161 / 82; Pulse 67; Resp 19; Pulse Ox 97% on 2 lpm NC; ca1 22:15 BP 149 / 81; Pulse 69; Resp 19; Pulse Ox 98% on 2 lpm NC; ca1 22:45 BP 145 / 61; Pulse 65; Resp 19; Pulse Ox 98% on 2 lpm NC; ca1 23:05 BP 156 / 72; Pulse 67; Resp 19; Pulse Ox 98% on 2 lpm NC; ca1 12/05 00:00 BP 150 / 63; Pulse 65; Resp 16; Pulse Ox 98% on 2 lpm NC; rv MDM: 12/04 19:48 Patient medically screened. cp 21:00 Differential diagnosis: bronchitis, flu, CHF exacerbation, COPD, pneumonia. cp 22:49 Physician consultation: Griffin Medina MD was called at 22:45, was contacted at 22:45, cp regarding admission, to the telemetry unit. 23:00 Data reviewed: vital signs, nurses notes, lab test result(s), EKG, radiologic studies, cp plain films, and as a result, I will admit patient. 23:00 Test interpretation: by ED physician or midlevel provider: ECG, plain radiologic cp studies. Counseling: I had a detailed discussion with the patient and/or guardian regarding: the historical points, exam findings, and any diagnostic results supporting the discharge/admit diagnosis, lab results, radiology results. 12/04 20:03 Order name: Blood Culture Adult (2) cp 12/04 20:03 Order name: BMP cp 12/04 20:03 Order name: CBC with Diff cp 12/04 20:03 Order name: Ckmb; Complete Time: 21:25 cp 12/04 20:03 Order name: CPK; Complete Time: 21:25 cp 12/04 20:03 Order name: Hepatic Function; Complete Time: 21:25 cp 12/04 20:03 Order name: Lipase; Complete Time: 21:25 cp 12/04 20:03 Order name: Magnesium; Complete Time: 21:25 cp 12/04 20:03 Order name: NT PRO-BNP; Complete Time: 21:25 cp 12/04 20:03 Order name: PT-INR; Complete Time: 21:25 cp 12/04 20:03 Order name: Ptt, Activated; Complete Time: 21:25 cp 12/04 20:03 Order name: Troponin (emerg Dept Use Only); Complete Time: 21:25 cp 12/04 22:48 Interpretation: Abnormal: TROPED 0.07. cp 12/04 20:04 Order name: Blood Culture EDMS 12/04 20:04 Order name: Basic Metabolic Panel; Complete Time: 21:25 EDMS 12/04 21:30 Interpretation: Normal except: BUN 46; CRE 1.99; GFR 33. cp 12/04 20:04 Order name: CBC with Automated Diff; Complete Time: 21:25 EDMS 12/04 20:06 Order name: Influenza Screen (a \T\ B); Complete Time: 21:25 cp 12/04 20:06 Order name: Procalcitonin; Complete Time: 22:15 cp 12/04 21:29 Order name: XRAY Chest (1 view) cp 12/05 05:20 Order name: CBC with Automated Diff EDMS 12/05 05:44 Order name: Troponin I EDMS 12/05 05:49 Order name: Basic Metabolic Panel EDMS 12/05 05:49 Order name: Magnesium EDMS 12/05 07:07 Order name: Manual Differential EDMS 12/05 08:13 Order name: Glucose, Ancillary Testing EDMS 12/05 11:31 Order name: Glucose, Ancillary Testing EDMS 12/04 20:03 Order name: EKG; Complete Time: 20:04 cp 12/04 20:03 Order name: Cardiac monitoring; Complete Time: 20:31 cp 12/04 20:03 Order name: EKG - Nurse/Tech; Complete Time: 20:31 cp 12/04 20:03 Order name: IV Saline Lock; Complete Time: 20:31 cp 12/04 20:03 Order name: Labs collected and sent; Complete Time: 20:32 cp 12/04 20:03 Order name: O2 Per Protocol; Complete Time: 20:32 cp 12/04 20:03 Order name: O2 Sat Monitoring; Complete Time: 20:32 cp Administered Medications: 20:31 Drug: Albuterol 2.5 mg Route: Inhalation; ca1 20:35 Drug: SOLU-Medrol 125 mg Route: IVP; Site: right antecubital; ca1 20:37 Drug: Aspirin Chewable Tablet 324 mg Route: PO; ca1 21:40 Follow up: Response: No adverse reaction ca1 20:51 Drug: Albuterol 2.5 mg Route: Inhalation; ca1 21:35 Drug: Magnesium Sulfate 2 grams Route: IVPB; Infused Over: 1 hrs; Site: right ca1 antecubital; 22:29 Drug: Lasix 40 mg Route: IVP; Site: right antecubital; ca1 23:20 Drug: Albuterol 2.5 mg Route: Inhalation; rv Point of Care Testing: Blood Glucose: 12/05 08:06 Blood Glucose: 116 mg/dL; hb Ranges: Critical Glucose Levels:Adult <50 mg/dl or >400 mg/dl <40 mg/dl or >180 mg/dl Disposition: 12/04/18 22:52 Hospitalization ordered by Griffin Medina for Inpatient Admission. Preliminary diagnosis is Unspecified combined systolic (congestive) and diastolic (congestive) heart failure. - Bed requested for [facility] ER HOLD. - Status is Inpatient Admission. jl7 - Condition is Stable. - Problem is an acute exacerbation. - Symptoms have improved. UTI on Admission? No Signatures: Dispatcher [employer] EDGA Zehra Mckinney RN RN Terry Fernández PA PA cp Baxter, Heather RN RN Nilton Son RN RN jl7 Fabian Adan RN RN rv Suzette Suarez RN RN ca1 Corrections: (The following items were deleted from the chart) 12/04 23:21 22:52 Hospitalization Ordered by Griffin Medina MD for Inpatient Admission. Preliminary diagnosis is Unspecified combined systolic (congestive) and diastolic (congestive) heart failure. Bed requested for Telemetry/MedSurg (Inpatient). Status is Inpatient Admission. Condition is Stable. Problem is an acute exacerbation. Symptoms have improved. UTI on Admission? No. cp 12/05 12:14 12/04 23:21 12/04/2018 22:52 Hospitalization Ordered by Griffin Medina MD for Inpatient jl7 Admission. Preliminary diagnosis is Unspecified combined systolic (congestive) and diastolic (congestive) heart failure. Bed requested for [facility] ER HOLD. Status is Inpatient Admission. Condition is Stable. Problem is an acute exacerbation. Symptoms have improved. UTI on Admission? No. mw
--- NOTE | 2018-12-04 23:48 | P.HP ---
Certification for Inpatient Patient admitted to: Observation With expected LOS: <2 Midnights Practitioner: I am a practitioner with admitting privileges, knowledge of patient current condition, hospital course, and medical plan of care. Services: Services provided to patient in accordance with Admission requirements found in Title 42 Section 412.3 of the Code of Federal Regulations Patient History Date of Service: 12/04/18 Reason for admission: CHF exacerbation, acute respiratory failure History of Present Illness: Mr Cat is a 78 years old male with history of alcohol abuse (quit on 09/05), chronic systolic CHF, S/P ICD, EF 33% on the last ECHO, anticoagulated due to A.Fib, came to ER complaining of progressive SOB since 4 days ago. He states that get very SOB with minimal activity, and last night he had to sleep on the couch. No chest pain, fever or chills. He has had non-productive cough. Lab work , remarkable for normal WBC count, ProBNP about 10K, CXR shows bilateral venous congestion consitent with CHF. At arrival his O2 sat at RA was 80%. Allergies No Known Allergies Allergy (Verified 11/08/17 06:11) Home medications list reviewed: Yes Home Medications: Aspirin [Aspirin EC 81 MG] 81 mg PO DAILY #90 tablet. 10/13/17 Furosemide [Lasix*] 20 mg PO BIDL #60 tab 11/24/17 Metoprolol Tartrate [Lopressor*] 25 mg PO BID 6AM 6PM #60 tab 11/24/17 Clopidogrel Bisulfate [Plavix*] 75 mg PO DAILY 08/30/18 Folic Acid 1 mg PO DAILY #90 tablet 08/30/18 Mupirocin Oint [Bactroban 2% Ointment] 8 appl TOP BID #1 tube 08/30/18 Primidone [Mysoline] 250 mg PO TID 08/30/18 Thiamine HCl 100 mg PO DAILY #90 tablet 08/30/18 - Past Medical/Surgical History Diabetic: Yes -: pacemaker/defibrillator 2010 (pacemaker evaluated 1 month ago) -: Diabetes mellitus type 2 -: HTN -: Hyperlipidemia -: CVA 2008 -: Depression -: MARZENA cataracts -: Moderate mitral regurgitation -: CHF, systolic dysfunction -: cervical vertebrae surgery x2 -: benign tumor removed from L knee -: appendectomy -: tonsilectomy -: 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 - Family History Mother -: Heart disease, Hypertension, Diabetes, Cancer - Social History Smoking Status: Former smoker Alcohol use: No CD- Drugs: No Caffeine use: No Place of Residence: Home Review of Systems 10-point ROS is otherwise unremarkable Physical Examination - Physical Exam General: Alert, In no apparent distress HEENT: Atraumatic, PERRLA, Mucous membr. moist/pink, EOMI, Sclerae nonicteric Neck: Supple, 2+ carotid pulse no bruit, No LAD, Without JVD or thyroid abnormality Respiratory: Normal air movement, Crackles/rales (bibasilar rales) Cardiovascular: Regular rate/rhythm, Normal S1 S2 Gastrointestinal: Normal bowel sounds, No tenderness Musculoskeletal: No tenderness Integumentary: No rashes Neurological: Normal speech, Normal strength at 5/5 x4 extr, Normal tone, Normal affect Lymphatics: No axilla or inguinal lymphadenopathy - Studies Laboratory Data (last 24 hrs) 12/04/18 20:25: PT 12.3, INR 1.04, APTT 40.1 H 12/04/18 20:25: WBC 6.7, Hgb 12.1 L, Hct 34.6 L, Plt Count 179 12/04/18 20:25: Sodium 136, Potassium 3.9, BUN 46 H, Creatinine 1.99 H, Glucose 99, Magnesium 1.7 L, Total Bilirubin 0.2, AST 20, ALT 26, Alkaline Phosphatase 94, Lipase 279 Microbiology Data (last 24 hrs): 12/04/18 20:25 Nasopharnyx Influenza Type A Antigen Screen - Final 12/04/18 20:25 Nasopharnyx Influenza Type B Antigen Screen - Final Assessment and Plan - Problems (Diagnosis) (1) Acute respiratory failure Current Visit: Yes Status: Acute Qualifiers: Respiratory failure complication: hypoxia Qualified Code(s): J96.01 - Acute respiratory failure with hypoxia (2) Acute on chronic systolic CHF (congestive heart failure) Onset Date: 11/08/17 Current Visit: No Status: Acute (3) CKD (chronic kidney disease) Onset Date: 11/24/17 Current Visit: No Status: Chronic Qualifiers: Chronic kidney disease stage: stage 2 (mild) Qualified Code(s): N18.2 - Chronic kidney disease, stage 2 (mild) (4) Diabetes mellitus, type II Onset Date: 11/24/17 Current Visit: No Status: Chronic Qualifiers: Diabetes mellitus intermediate teacher insulin use: with intermediate teacher use Diabetes mellitus complication status: with unspecified complications Qualified Code(s) : E11.8 - Type 2 diabetes mellitus with unspecified complications; Z79.4 - MCFP (current) use of insulin; Z79.4 - [facility]FP (current) use of insulin; 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 Will continue IV lasix. Close monitor of body fluid level. - Advance Directives Does patient have a Living Will: No Does patient have a Durable POA for Healthcare: Yes - Code Status/Comfort Care Code Status Assessed: Yes Code Status: Full Code
[2018-12-04] MEDS ORDERED: ONDANSETRON 4 MG/2 ML VIAL IV PRN (23:58)
[2018-12-04] MEDS ORDERED: GLUCAGON 1 MG/VIAL IM PRN (23:58)
[2018-12-04] MEDS ORDERED: D50W 25 GM/50 ML SYRINGE IV PRN (23:58)
[2018-12-05 04:34] VITALS: TEMP 97.4
[2018-12-05 05:16] LABS: Absolute Lymphocytes (CBC) 0.5 K/uL (0.7-4.9); Absolute Monocytes 0.2 K/uL (0.1-1.3); Absolute Neutrophil 4.7 K/uL (1.8-8.0); Basophils % 0.5 % (0-1.3); Hematocrit 34.2 % (39.6-49.0); Lymphocytes % 8.7 % (15.3-44.8); MPV 8.8 fL (7.6-11.3); Monocytes % 3.8 % (3.3-12.3); RBC Red Blood Cell Count 3.64 M/uL (4.33-5.43)
[2018-12-05 05:20] VITALS: BMI 28.4
[2018-12-05 05:33] LABS: Magnesium 2.2 mg/dL (1.8-2.4); Potassium 3.7 mmol/L (3.5-5.1)
--- NOTE | 2018-12-05 05:57 | EKG ---
Test Date: 2018-12-04 Test Time: 19:52:17 Dragger: SUSANT MEASUREMENT RESULTS: Intervals: Rate: 66 ND: 188 QRSD: 146 QT: 454 QTc: 475 [place]: P: 78 ND: 188 QRS: -58 T: 131 INTERPRETIVE STATEMENTS: Atrial-sensed ventricular-paced rhythm with occasional AV dual-paced complexes Abnormal ECG Compared to ECG 08/29/2018 20:58:41 No significant changes Electronically Signed On 12-05-18 05:56:24 CDT by Hardeep Longoria
[2018-12-05] MEDS ORDERED: POTASSIUM CL SA 10 MEQ TAB PO ONE ×2 (06:20→08:52)
[2018-12-05 07:06] LABS: Blood Morphology Comment NOT SEEN (NOT SEEN); Platelet Estimate ADEQ
[2018-12-05] MEDS: INSULIN -REGULAR HUMAN 50 UNIT/0.5 ML ML SQ SCH ×2 (07:30→11:30)
--- NOTE | 2018-12-05 08:16 | RAD REPORT ---
EXAM DESCRIPTION: RAD - Chest Single View - 12/04/2018 9:59 pm CLINICAL HISTORY: SOB Chest pain. COMPARISON: Chest Single View dated 08/29/2018; Chest Pa And Lat (2 Views) dated 11/09/2017; Chest Si ngle View dated 11/08/2017; Chest Pa And Lat (2 Views) dated 10/13/2017 FINDINGS: Portable technique limits examination quality. Hazy opacity is present in the right lung base suspicious for developing pneumonia. Mild interstitial pulmonary edema is seen. The heart is moderately enlarged with a multilead pacer/defibrillator devic e present.
[2018-12-05] MEDS ORDERED: HEPARIN 5000 UNIT/ML 1 ML VIAL ONE (08:52)
[2018-12-05] MEDS ORDERED: FUROSEMIDE 40 MG/4 ML VIAL ONE (08:52)
[2018-12-05] MEDS ORDERED: HEPARIN 5000 UNIT/ML 1 ML VIAL SQ SCH (09:00)
[2018-12-05] MEDS ORDERED: FUROSEMIDE 40 MG/4 ML VIAL IV SCH ×2 (09:00)
[2018-12-05 09:23] VITALS: BP 148/85
[2018-12-05 10:50] VITALS: O2SAT 97
[2018-12-05] MEDS ORDERED: COLCHICINE 0.6 MG TAB PO PRN (11:33)
[2018-12-05] MEDS ORDERED: predniSONE 5 MG TAB PO SCH (12:00)
[2018-12-05] MEDS ORDERED: PRIMIDONE 250 MG TAB PO SCH (13:00)
[2018-12-05] MEDS ORDERED: METOPROLOL TAR 25 MG TAB PO SCH (21:00)
--- NOTE | 2018-12-06 04:01 | DS ---
Date of Discharge: 12/05/2018 code status full Discharge Diagnoses: 1. Acute respiratory failure with hypoxia. 2. Acute on chronic systolic congestive heart failure. 3. Chronic kidney disease, stage II. 4. Diabetes mellitus type 2 with long-term use of insulin with hyperglycemia. 5. History of CVA. Hospital Course: The patient is a 78-year-old male with past medical history of alcohol abuse, quit in 08/2018, chronic systolic heart failure, status post AICD, EF of 33%, on anticoagulation secondary to Afib, hypertension, hyperlipidemia, history of CVA, depression, comes in with progressive shortness of breath. The patient had some paroxysmal nocturnal dyspnea, had to lay on his couch and sleep sitting up. The patient's workup revealed elevated BNP. Chest x-ray showed venous congestion. His O2 saturations were 80% on room air. He was started on supplemental oxygen, was diuresed with Lasix. He had significant improvement in his symptoms. He was able to be weaned off oxygen, it was 97% on room air. He remained afebrile. He does have some chronic kidney disease and his creatinine was around baseline. The patient overall did well. He was able to ambulate without significant shortness of breath. Influenza screen was also negative. Blood cultures currently pending. The patient was then doing better. He was able to be weaned off oxygen. He was then discharged home in a stable condition as his symptoms had improved. He was counseled regarding free fluid restriction and sodium restriction. He voiced understanding. Activity: As tolerated. Followup: Follow up with primary care physician in 2-3 days. Follow up with primary hemstitcher in [place], Dr. Arenas, in 1 week. Return to ER for worsening condition. Physical Examination: General: Awake, alert, and oriented x3. No acute distress, elderly male. CV: S1, S2. Peripheral pulses present. Respiratory: Moving air well bilaterally. No wheezing. Gastrointestinal: Abdomen is soft, nontender, and nondistended. Positive bowel sounds. Extremities: No clubbing or cyanosis. Minimal pedal edema. Neurologic: Nonfocal. SA/MODL Voice ID: [id number] Report ID: [id number] [facility]
== END 2018-12-05 12:42 | disposition home or self-care (01) ==
LOC: ER 17:50 → ERHOLD 23:46
PROVIDERS: ADMIT Internal Medicine; ATTEND Internal Medicine
DX: I13.0 Hypertensive heart and chronic kidney disease with heart failure and stage 1 through stage 4 chronic kidney disease, or unspecified chronic kidney disease (principal); I50.23 Acute on chronic systolic (congestive) heart failure; N18.3 Chronic kidney disease, stage 3 (moderate); E11.22 Type 2 diabetes mellitus with diabetic chronic kidney disease; J96.01 Acute respiratory failure with hypoxia; E11.65 Type 2 diabetes mellitus with hyperglycemia; Z79.4 Long term (current) use of insulin; Z86.73 Personal history of transient ischemic attack (TIA), and cerebral infarction without residual deficits; Z95.810 Presence of automatic (implantable) cardiac defibrillator
CPT/HCPCS: 93005; 87040 ×2; 85025 ×2; 80048 ×2; 36415; 83735 ×2; 82550; 85610; 82962 ×2; 80076; 85730; 84484 ×2; 82553; 83690; 84145; 83880; 87804 ×2; 71045; 94760; 96375; 96374; 99285; J1940 ×2; J1644; J3475; J2930; G0378 ×2

== ENCOUNTER 2019-11-30 17:35 | Emergency (ER) | payer OTHER ==
[2019-11-30] MEDS ORDERED: LEVALBUTEROL 1.25 MG/3 ML NEB ONE (18:23)
[2019-11-30] MEDS ORDERED: IPRATROPIUM BROM 0.5MG/2.5ML ONE (18:23)
--- NOTE | 2019-11-30 19:18 | RAD REPORT ---
EXAM DESCRIPTION: Daniel Single View11/30/2019 6:16 pm CLINICAL HISTORY: cough COMPARISON: 2019 FINDINGS: The lungs appear clear of acute infiltrate. The heart is moderately enlarged. Pacemaker l deandre are in place. IMPRESSION: No acute abnormalities displayed
--- NOTE | 2019-11-30 19:42 | EDPHYS ---
Physician Documentation [facility] Name: Jimbo Cat Age: 79 yrs Sex: Male : 1940 Arrival Date: 11/30/2019 Time: 17:41 Bed 4 Private MD: ED Physician Boogie Shah HPI: 11/29 20:55 This 79 yrs old Male presents to ER via EMS with complaints of Cough. kb 20:55 The patient or guardian reports cough, described as moderate. Onset: The kb symptoms/episode began/occurred 4 day(s) ago. Severity of symptoms: At their worst the symptoms were mild, moderate, in the emergency department the symptoms are unchanged. Modifying factors: The symptoms are alleviated by nothing, the symptoms are aggravated by nothing. Associated signs and symptoms: The patient has no apparent associated signs or symptoms, Pertinent negatives: chest pain, diarrhea, ear ache, fever, nausea, rhinorrhea, sore throat, vomiting. The patient has not experienced similar symptoms in the past. The patient has not recently seen a physician. Pt reports cough for 4 days and a rattling in his chest. Denies fever, shortness of breath or chest pain. . Historical: - Allergies: 17:44 No Known Allergies; sv - PMHx: 17:44 Alcoholism; CVA; Diabetes; HEART FAILURE; Hypertension; possible dementia; COPD; sv - PSHx: 17:44 Pacemaker; Appendectomy; sv - Immunization history:: Flu vaccine is not up to date. - Social history:: Smoking status: Patient denies any tobacco usage or history of. ROS: 20:55 Constitutional: Negative for fever, chills, and weight loss, ENT: Negative for injury, kb pain, and discharge, Neck: Negative for injury, pain, and swelling, Cardiovascular: Negative for chest pain, palpitations, and edema, Abdomen/GI: Negative for abdominal pain, nausea, vomiting, diarrhea, and constipation, Back: Negative for injury and pain, MS/Extremity: Negative for injury and deformity, Skin: Negative for injury, rash, and discoloration, Neuro: Negative for headache, weakness, numbness, tingling, and seizure. 20:55 Respiratory: Positive for cough, wheezing. Exam: 20:55 Constitutional: This is a well developed, well nourished patient who is awake, alert, kb and in no acute distress. Head/Face: Normocephalic, atraumatic. ENT: Nares patent. No nasal discharge, no septal abnormalities noted. Tympanic membranes are normal and external auditory canals are clear. Oropharynx with no redness, swelling, or masses, exudates, or evidence of obstruction, uvula midline. Mucous membranes moist. Neck: Trachea midline, no thyromegaly or masses palpated, and no cervical lymphadenopathy. Supple, full range of motion without nuchal rigidity, or vertebral point tenderness. No Meningismus. Chest/axilla: Normal chest wall appearance and motion. Nontender with no deformity. No lesions are appreciated. Cardiovascular: Regular rate and rhythm with a normal S1 and S2. No gallops, murmurs, or rubs. Normal PMI, no JVD. No pulse deficits. Abdomen/GI: Soft, non-tender, with normal bowel sounds. No distension or tympany. No guarding or rebound. No evidence of tenderness throughout. Skin: Warm, dry with normal turgor. Normal color with no rashes, no lesions, and no evidence of cellulitis. MS/ Extremity: Pulses equal, no cyanosis. Neurovascular intact. Full, normal range of motion. Neuro: Awake and alert, GCS 15, oriented to person, place, time, and situation. Cranial nerves II-XII grossly intact. Motor strength 5/5 in all extremities. Sensory grossly intact. Cerebellar exam normal. Normal gait. 20:55 Respiratory: the patient does not display signs of respiratory distress, Respirations: normal, Breath sounds: wheezing: expiratory that is moderate, is heard diffusely. Vital Signs: 17:33 BP 153 / 73; Pulse 66; Resp 20; Temp 98.5; Pulse Ox 99% ; Weight 70.76 kg; Height 5 ft. sv 7 in. (170.18 cm); Pain 0/10; 17:49 BP 149 / 75; sv 19:08 BP 151 / 80; Pulse 64; Resp 20; Pulse Ox 98% ; sv 20:01 BP 145 / 65; Pulse 64; Resp 16; Temp 98.4; Pulse Ox 97% on R/A; rv 17:33 Body Mass Index 24.43 (70.76 kg, 170.18 cm) sv MDM: 17:56 Patient medically screened. kb 19:41 Data reviewed: vital signs, nurses notes. Data reviewed: lab test result(s), radiologic kb studies. Data interpreted: Pulse oximetry: on room air is 98 %. Interpretation: normal. Counseling: I had a detailed discussion with the patient and/or guardian regarding: the historical points, exam findings, and any diagnostic results supporting the discharge/admit diagnosis, lab results, radiology results, the need for outpatient follow up, a family practitioner, to return to the emergency department if symptoms worsen or persist or if there are any questions or concerns that arise at home. Response to treatment: the patient's symptoms have markedly improved after treatment. 20:57 ED course: Pt reports he has a neb machine and the solution at home, just never uses kb it. States he feels better after the neb treatment here and will use the one at home as needed. 11/29 18:02 Order name: Flu; Complete Time: 18:52 kb 11/29 18:02 Order name: Chest Single View XRAY; Complete Time: 19:23 kb Administered Medications: 18:24 Drug: AtroVENT Aerosol 0.5 mg Route: Inhalation; sv 20:01 Follow up: Response: No adverse reaction; Marked relief of symptoms rv 18:25 Drug: Xopenex (3) 1.25 mg Route: Inhalation; sv 20:02 Follow up: Response: No adverse reaction; Marked relief of symptoms rv 19:50 Drug: predniSONE 40 mg Route: PO; ah 20:01 Follow up: Response: No adverse reaction rv Disposition: 11/30/19 19:41 Discharged to Home. Impression: Bronchitis, not specified as acute or chronic. - Condition is Stable. - Discharge Instructions: Acute Bronchitis, Rggk-[id number], Viral Respiratory Infection, [id number]. - Prescriptions for Prednisone 20 mg Oral Tablet - take 1 tablet by ORAL route once daily for 5 days; 5 tablet. - Medication Reconciliation Form, Thank You Letter, Antibiotic Education, Prescription Opioid Use form. - Follow up: Emergency Department; When: As needed; Reason: Worsening of condition. Follow up: Private Physician; When: 2 - 3 days; Reason: Recheck today's complaints, Continuance of care, Re-evaluation by your physician. Addendum: 12/03/2019 10:46 Co-signature as Attending Physician, Boogie Shah MD I agree with the assessment and [facility] plan of care. Signatures: Dispatcher [employer] EDNusrat Virk VISUAL DEVELOPER-C VISUAL DEVELOPER-Ckb Vandana Gomez, RN RN Boogie Shah MD MD [facility] Fabian Adan RN RN Theodora Medrano, RN RN Corrections: (The following items were deleted from the chart) 11/29 20:02 19:41 11/30/2019 19:41 Discharged to Home. Impression: Bronchitis, not specified as rv acute or chronic. Condition is Stable. Forms are Medication Reconciliation Form, Thank You Letter, Antibiotic Education, Prescription Opioid Use. Follow up: Emergency Department; When: As needed; Reason: Worsening of condition. Follow up: Private Physician; When: 2 - 3 days; Reason: Recheck today's complaints, Continuance of care, Re-evaluation by your physician. kb
--- NOTE | 2019-11-30 19:42 | ER ---
Nurse's Notes [facility] Name: Jimbo Cat Age: 79 yrs Sex: Male : 1940 Arrival Date: 11/30/2019 Time: 17:41 Bed 4 Private MD: Diagnosis: Bronchitis, not specified as acute or chronic Presentation: 11/29 17:33 Chief complaint: EMS states: non-productive cough and SOB while laying flat x 2 days, sv denies fever. BP 154/85 HR-82 97.5 temp, 98% RA. Coronavirus screen: The patient has NOT traveled to a country currently being monitored by the [facility] within the last 14 days. Proceed with normal triage procedures. The patient has NOT had contact with any known and/or suspected case of coronavirus. Proceed with normal triage procedures. Ebola Screen: Patient negative for fever greater than or equal to 101.5 degrees Fahrenheit, and additional compatible Ebola Virus Disease symptoms Patient denies exposure to infectious person. Patient denies travel to an Ebola-affected area in the 21 days before illness onset. No symptoms or risks identified at this time. Initial Sepsis Screen: Does the patient meet any 2 criteria? No. Patient's initial sepsis screen is negative. Does the patient have a suspected source of infection? No. Patient's initial sepsis screen is negative. Risk Assessment: Do you want to hurt yourself or someone else? Patient reports no desire to harm self or others. 17:33 Method Of Arrival: [facility] 17:33 Acuity: SYDNIE 3 sv 17:45 Onset of symptoms was November 28, 2019. sv Triage Assessment: 17:33 General: Appears in no apparent distress. comfortable, well groomed, well developed, sv Behavior is calm, cooperative, appropriate for age. Pain: Denies pain. Neuro: Level of Consciousness is awake, alert, obeys commands, Oriented to person, place, time, situation, Moves all extremities. Full function Gait is steady, Speech is normal. Cardiovascular: Patient's skin is warm and dry. Pulses are palpable in right radial artery and left radial artery. Respiratory: Reports shortness of breath at rest while laying flat cough that is non-productive, Airway is patent Respiratory effort is even, unlabored, Respiratory pattern is regular, symmetrical. Derm: Skin is intact, Skin is pink, warm \T\ dry. Musculoskeletal: Range of motion: intact in all extremities. Historical: - Allergies: 17:44 No Known Allergies; sv - PMHx: 17:44 Alcoholism; CVA; Diabetes; HEART FAILURE; Hypertension; possible dementia; COPD; sv - PSHx: 17:44 Pacemaker; Appendectomy; sv - Immunization history:: Flu vaccine is not up to date. - Social history:: Smoking status: Patient denies any tobacco usage or history of. Screenin:44 Abuse screen: Denies threats or abuse. Denies injuries from another. Nutritional sv screening: No deficits noted. Tuberculosis screening: No symptoms or risk factors identified. Fall Risk None identified. Assessment: 18:25 Reassessment: Patient appears in no apparent distress at this time. No changes from sv previously documented assessment. Patient and/or family updated on plan of care and expected duration. Pain level reassessed. Patient is alert, oriented x 3, equal unlabored respirations, skin warm/dry/pink. 19:33 Reassessment: Patient appears in no apparent distress at this time. Patient and/or ah family updated on plan of care and expected duration. Pain level reassessed. Patient is alert, oriented x 3, equal unlabored respirations, skin warm/dry/pink. Pt completed breathing treatment, he states that he is breathing a little easier. Respiratory: Breath sounds with wheezes in right upper lobe and right middle lobe. 20:00 Reassessment: given instructions. patient verbalized feeling better after the rv treatment. discharged ambulatory. gcs 15. Vital Signs: 17:33 BP 153 / 73; Pulse 66; Resp 20; Temp 98.5; Pulse Ox 99% ; Weight 70.76 kg; Height 5 ft. sv 7 in. (170.18 cm); Pain 0/10; 17:49 BP 149 / 75; sv 19:08 BP 151 / 80; Pulse 64; Resp 20; Pulse Ox 98% ; sv 20:01 BP 145 / 65; Pulse 64; Resp 16; Temp 98.4; Pulse Ox 97% on R/A; rv 17:33 Body Mass Index 24.43 (70.76 kg, 170.18 cm) sv ED Course: 17:41 Patient arrived in ED. sv 17:41 Vandana Gomez RN is Primary Nurse. sv 17:43 Triage completed. sv 17:44 Arm band placed on. sv 17:44 Patient has correct armband on for positive identification. Bed in low position. Call sv light in reach. Pulse ox on. NIBP on. Door closed. Head of bed elevated. 17:56 Nusrat Cody FNP-C is [facility]. kb 17:56 Boogie Shah MD is Attending Physician. kb 18:17 Chest Single View XRAY In Process Unspecified. EDMS 18:25 Flu and/or RSV swab sent to lab. sv 19:15 Report given to Theodora RN, Garima RN, and Sukhdev RN. sv 19:30 Primary Nurse role handed off by Vandana Gomez RN sv 19:32 Garima Rudd RN is Primary Nurse. ea 20:01 Patient did not have IV access during this emergency room visit. rv 20:02 No provider procedures requiring assistance completed. rv Administered Medications: 18:24 Drug: AtroVENT Aerosol 0.5 mg Route: Inhalation; sv 20:01 Follow up: Response: No adverse reaction; Marked relief of symptoms rv 18:25 Drug: Xopenex (3) 1.25 mg Route: Inhalation; sv 20:02 Follow up: Response: No adverse reaction; Marked relief of symptoms rv 19:50 Drug: predniSONE 40 mg Route: PO; ah 20:01 Follow up: Response: No adverse reaction rv Outcome: 19:41 Discharge ordered by . kb 20:02 Discharged to home ambulatory. rv 20:02 Condition: improved 20:02 Discharge instructions given to patient, Instructed on discharge instructions, follow up and referral plans. medication usage, Demonstrated understanding of instructions, follow-up care, medications, Prescriptions given X 1. 20:02 Patient left the ED. rv Signatures: Dispatcher [employer] EDMS Nusrat Cody FNP-C M48 M60 ARMOR CREWMAN-Ckb Vandana Gomez RN RN sv Antunez, Elena, RN RN ea Vicente, Ronaldo, RN RN rv Harris, Amy, RN RN Corrections: (The following items were deleted from the chart) 17:44 17:33 Pulse 66bpm; Resp 20bpm; Pulse Ox 99%; Temp 98.5F; 70.76 kg; Height 5 ft. 7 in.; sv BMI: 24.4; Pain 0/10; sv
[2019-11-30] MEDS ORDERED: predniSONE 20 MG TAB ONE (19:49)
[2019-11-30 20:17] VITALS: BP 145/65; TEMP 98.4; O2SAT 97
== END 2019-11-30 20:02 | disposition home or self-care (01) ==
LOC: ER 17:35
DX: J40 Bronchitis, not specified as acute or chronic (principal); I10 Essential (primary) hypertension; F10.20 Alcohol dependence, uncomplicated; Z95.0 Presence of cardiac pacemaker
CPT/HCPCS: 71045; 87804; 99284; J7512

== ENCOUNTER 2020-08-16 21:04 | Observation (INO) | payer OTHER ==
--- OUTSIDE RECORDS SUMMARY | 2020-08-16 21:06 | XMS REPORT | Continuity of Care Document ---
:1940 Author Organization [facility] t Address [address] [place] [address] Care Team Providers Name Role Phone Eryn REGALADO, Ishaan Attending Clinician Unavailable Abena VICTOR, S Attending Clinician Wily VICTOR Attending Clinician Wily VICTOR Admitting Clinician Payers Payer Name Policy Type Policy Number Effective Date Expiration Date S ource Problems This patient has no known problems. Allergies, Adverse Reactions, Alerts Allergy Allergy Status Severity Reaction(s) Onset Inactive Treating Comm ents Source Name Type Date Date Clinician No Known DA Active U 2018- [facility] 10-04 [facility] 00:00: [address] No Known DA Active U [facility] Allergie 05-20 [facility] 00:00: [address] Medications This patient has no known medications. Procedures This patient has no known procedures. Encounters Start End Encounter Admission Attending Care Care Encounter Source Date/Time Date/Time Type Type Clinicians Facility Department ID 2020-06-05 2020-06-05 Transition Mary Kay Cerna [id number] 00:00:00 00:00:00 of Care Cody Stover [id number] Clarisa [id number] 2020-05-29 2020-06-04 [place] [id number] 18:50:00 17:57:00 Encounter Arben Julien [id number] Ling [id number] [place] [id number] Results This patient has no known results.
--- OUTSIDE RECORDS SUMMARY | 2020-08-16 21:09 | XMS REPORT | Summary of Care ---
:1940 Author Organization [facility] - Health Address [address] [place] [id number] Care Team Providers Name Role Phone Lorena Arenas MD Unavailable Rebeca Primary Care Provider Randal Powell DO [facility] Specialist Reason for Visit Reason Comments Transition Of Care Encounter Details Date Type Department Care Team Description 06/05/2020 Transition of Care [facility] [address] [id number] Allergies No Known Allergiesdocumented as of this encounter (statuses as of 06/06/2020) Medications Medication Sig Dispensed Refills Start Date End Date Status ASPIRIN 81 MG ORAL CHEW once daily 0 Active magnesium oxide (MAG-OX Take 400 mg by 0 Active 400) 400 mg tablet mouth daily. Cyanocobalamin (VITAMIN Place under the 0 Active B-12) 2,500 mcg Subl tongue. CALCIUM Take by mouth. 0 Acti ve CARBONATE/VITAMIN D3 (VITAMIN D-3 ORAL) MULTIVITAMIN Take by mouth. 0 A ctive W-MINERALS/LUTEIN (CENTRUM SILVER ORAL) Blood-Glucose Meter Use as directed 1 Each 0 12/25/2015 Active (ACCU-CHEK WILLIAM) Misc Lancets (ACCU-CHEK Use as directed 300 Each 3 12/30/2015 Active SOFTCLIX LANCETS) Misc three (3) times daily blood sugar diagnostic 3 (three) times 300 Strip 3 12/30/2015 Active (ACCU-CHEK ACTIVE TEST) daily. Use as strip directed atorvastatin 20 mg Take 1 tablet by 30 tablet 0 06/04/2020 Active tabletIndications: HLD mouth at bedtime. (hyperlipidemia) primidone 50 mg Take 1 tablet by 60 tablet 0 06/04/2020 Active tabletIndications: mouth every 12 Pneumonia of both lungs (twelve) hours. due to infectious organism, unspecified part of lung metoprolol tartrate 25 Take 1 tablet by 60 tablet 0 06/04/2020 Active mg tabletIndications: mouth 2 (two) Pneumonia of both lungs times daily. due to infectious organism, unspecified part of lung sacubitriL-valsartan Take 1 tablet by 60 tablet 0 06/04/2020 Active 97-103 mg mouth 2 (two) tabletIndications: times daily. Pneumonia of both lungs due to infectious organism, unspecified part of lung levoFLOXacin 500 mg Take 1 tablet by 5 tablet 0 06/04/2020 Active tabletIndications: mouth every 24 Pneumonia of both lungs (twenty-four) due to infectious hours. organism, unspecified part of lung acidophilus 100 million Take 1 tablet by 60 tablet 0 0 Active cell tabletIndications: mouth 2 (two) Pneumonia of both lungs times daily. 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, uncontrolled(250.52) HLD (hyperlipidemia) 11/25/2009 Overview: ICD10 Diagnosis Term Software Test Technician Utility Essential hypertension, benign 11/25/2009 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 documented as of this encounter Last Filed Vital Signs Not on filedocumented in this encounter Miscellaneous Notes Telephone Encounter - Cody Cerna RN - 06/06/2020 9:32 AM CDT TRANSITIONAL CARE MANAGEMENT ASSESSMENT 06/06/2020 Jimbo Cat [id number] Jimbo Cat is a 79 year old /White male was admitted on 05/29/20 to [facility] ICU. He was discharged on 06/04/20 with discharge disposition of HR- Routine Discharge. Admitting Physician: Arben Julien Discharge Diagnosis: # Acute on chronic systolic CHF # h/o NICMP s/p PPM # NSTEMI, likely type 2 # HTN - CT and CXR showed pulm edema.Improved with IV lasix then switchedto po. Monitor I/O. Daily weight - entresto, metoprolol - asa, statin - echo showed no new change, EF 40-45%, mitral regurg - cardiology following. Follow with Dr. Arenas as outpt # Sepsis 2/2 Pneumococcal pneumonia with metabolic encephalopathy and HIRO - Discontinued vanc, zosyn x 2d. Switched to po levaquin course. - Much improved # HIRO on CKD 3 # vit D deficiency # iron deficiency - avoid nephrotoxins - nephrology consulted - monitor renal function - lasix dose decreasedand changed to po - vit D and iron suppl # DM2 - SSI - A1c 5.4 # Dementia Linked Episodes Type: Episode: Status: Noted: Resolved: Last update: Updated by: TRANSITION OF CARE TCM Active 06/04/2020 06/05/2020 11:39 AM Cody Cerna, RN Comments: TCM Ioc-ichy-qg-face outreach documentation: Discharge Assessment Chart Assessed: 06/05/20 TCM Outreach Completed: 06/06/20 Do you have a few minutes to speak with me about how you are doing at home?: Yes(Spoke with pt's spouse. States pt is doing ok.) Discharge Instructions Do you understand your at-home instructions?: Yes(No questions at this time.) Medications Have you filled your prescriptions and do you have them in your home? : Yes Do you know how to take your medications?: Yes(No questions.) Can you provide me with the names or descriptions of any [id number]-[id number] or supplements you are currently taking?: Patient declined Supplies Did you receive applicable home medical supplies/equipment?: N/A Follow Up Appointment Has a follow up appointment been scheduled?: Yes Do you have any questions about your follow up appointments?: No Are you able to get to your appointment? Who will be taking you?: Yes(Family member) Home Health Assistance Has the home health nurse contacted you since you've been home?: Yes( nurse visited 06/05/2020) Survey - Recognition Is there anything you would like to share about your recent hospitalization, or anyone you would like to recognize?: No Do you have any suggestions for improvement?: No Do you have any other questions or concerns at this time?: No Future Appointments: Scheduled per spouse; does not have information with her at time of call. Readmission Questions: Was patient discharged from any acute care hospital within the last 30 days: Yes(DC'd from [facility] on 05/29/20) Were all questions regarding previous illness/diagnosis answered prior to discharge: Yes Did you have any difficulties with your discharge instructions: No Any difficulties after discharge with medications: No Any difficulties after discharge with transportation: No Any difficulties after discharge with physical conditions, support, or other limitations?: Yes If Yes, comment: Pt's family stated pt was too weak to get around alone Did patient refuse services that were recommended on the previous admission: No Was patient non-compliant with the previously recommended treatment: No COVID-19 It is noted in the discharge summary that you were tested for COVID 19. Did your physician discuss the results of this test with you? yes Do you have any questions about your test results? no What instructions did you receive from your physician? prevention Do you have any questions about your discharge instructions related to COVID 19? no Should you have any other questions or concerns, you may call the [facility] at [phone] or toll free [phone] for further guidance. Telephone Encounter - Cody Cerna RN - 06/05/2020 11:42 AM CDT1st attempt CM made follow up call to patient post-discharge. Attempted home number. Number is disconnected. Attempted mobile number. No answer and message states person is not accepting calls. Attempted EC. No answer and call went to voicemail. Voicemail is not set up. Unable to leave a message. documented in this encounter Plan of Treatment Health Maintenance Due Date Last Done Comments EYE EXAM 1950 Depression Screening 1954 DTaP,Tdap,and Td Vaccines (1 - 1961 Tdap) Zoster Recombinant Vaccine 1992 (SHINGRIX) (1 of 2) Medicare Wellness Visit 2007 PNEUMOCOCCAL VACCINES 65+ (1 of 1 2007 - PPSV23) FOOT EXAM 01/27/2017 01/28/2016 URINE MICROALBUMIN 01/27/2017 01/28/2016, 01/22/2015, 10/17/2013 INFLUENZA VACCINE (#1) 2020 HgA1C 11/26/2020 05/29/2020, 01/28/2016, 03/25/2015, Additional history exists LDL-C 05/29/2021 05/29/2020, 01/28/2016, 03/26/2015, Additional history exists CREATININE (SERUM) 06/03/2021 06/03/2020, 06/02/2020, 06/01/2020, Additional history exists documented as of this encounter Implants Implanted Type Area Jogger Operator Device Identifier Shelf Exp iration Model / Date Serial / L ot Pacemaker PACEMAKER documented as of this encounter Results Not on filedocumented in this encounter Insurance Payer Benefit Plan Subscriber ID Effective Dates Phone Address Type / Group HUMANA - HUMANA CHOICE [id number] 2012-Presen Medicare Adv MANAGED t PPO MEDICARE documented as of this encounter Advance Directives Type Date Recorded Patient Clerical Aide Teacher Explanati on Advance Directives and Living Will Power of Space And Storage Clerk
--- OUTSIDE RECORDS SUMMARY | 2020-08-16 21:09 | XMS REPORT | Summary of Care ---
:1940 Author Organization [facility] - [facility] Address [address] [place] [id number] Care Team Providers Name Role Phone Lorena Arenas MD Unavailable Rebeca Primary Care Provider Randal Powell DO Chief Projectionist Reason for Referral (Routine) Status Reason Specialty Diagnoses / Referred By Referred To Procedures Contact Contact New Request Patient is IM-CARDIOVASCUL Diagnoses Pneumonia of both lungs due to infectious organism, unspecified part of lung Dagoberto Hughes, Established with AR DISEASE / Procedures Discharge Follow-Up: Specialty Service IM-CARDIOVASCULAR DISEASE; 2 Weeks MD Lorena Pretty MD a Specific Cardiology [address] [place] [address] Provider [facility] [address] [place], [place] RT 1500AD [address] [place], [place] Phone: [phone] Phone: (Routine) Status Reason Specialty Diagnoses / Referred By Contact Refe rred To Procedures Contact New Request Diagnoses Pneumonia of both lungs due to infectious organism, unspecified part of lung Sukhwinder Hughes MD Bertheau, Julius Procedures Discharge Follow-up: PCP PIA JOSE; [address] [facility] [address] [place], [place] [address] Phone: [place] [phone] Fax: Radiology Services (Routine) Status Reason Specialty Diagnoses / Referred By Referred To Procedures Contact Contact New Request Diagnostic Diagnoses Acute on chronic diastolic congestive heart failure Vanessa Sanders, Radiology Procedures XR CHEST 1 VW 146 [facility] [address] [place] [address] (Routine) Status Reason Specialty Diagnoses / Referred By Referred To Procedures Contact Contact New Request Diagnostic Diagnoses Pneumonia of both lungs due to infectious organism, unspecified part of lung Rufus Goodwin MD Radiology Procedures MOD BARIUM SWALLOW, ([facility]) [address] [place] [phone] (Routine) Status Reason Specialty Diagnoses / Referred By Referred To Procedures Contact Contact New Request Echocardiograph Diagnoses Acute respiratory distress Arben Julien, Procedures ECHO ROUTINE W/DOPPLER COLOR [address] [place] [address]. [address] [place] [id number] MRI/CAT Scan (STAT) Status Reason Specialty Diagnoses / Referred By Referred To Procedures Contact Contact New Request Diagnostic Diagnoses Acute respiratory distress Arben Julien, Radiology Procedures CT THORAX WO CONTRAST [address] [place] [address]. [place] [address] [place] [address] Radiology Services (STAT) Status Reason Specialty Diagnoses / Referred By Referred To Procedures Contact Contact New Request Diagnostic Diagnoses Fatigue, unspecified type Yarima, [place] Radiology Procedures XR CHEST 1 ROGE Combs MD [address] [address] MRI/CAT Scan (STAT) Status Reason Specialty Diagnoses / Referred By Referred To Procedures Contact Contact New Request Diagnostic Diagnoses Fatigue, unspecified type Yarima, [place] Radiology Procedures CT HEAD WO CONTRAST MD Lauryn [address] [place] [address] Reason for Visit Reason Comments Other "second opinion" Auth/Cert Status Reason Specialty Diagnoses / Referred By Referred To Procedures Contact Contact Emergency Medicine [facility] Em ergency Dept [address] [place] [address] Fax: Encounter Details Date Type Department Care Team Description 05/29/2020 - Hospital Encounter ADC Intensive Care Nadia Kraft MD 301 [facility] [id number] [place] [address] [phone] Dyspnea 06/04/2020 Unit Arben Julien MD [address] [facility]. [address] [place], [place] [id number] [address] [place] [address] [place] [address] Allergies No Known Allergiesdocumented as of this encounter (statuses as of 06/04/2020) Medications Medication Sig Dispensed Refills Start Date End Date Status ASPIRIN 81 MG ORAL once daily 0 Active CHEW magnesium oxide Take 400 mg 0 Ac tive (MAG-OX 400) 400 mg by mouth tablet daily. Cyanocobalamin Place under 0 Ac tive (VITAMIN B-12) the tongue. 2,500 mcg Subl CALCIUM Take by 0 Active CARBONATE/VITAMIN mouth. D3 (VITAMIN D-3 ORAL) MULTIVITAMIN Take by 0 Active W-MINERALS/LUTEIN mouth. (CENTRUM SILVER ORAL) Blood-Glucose Meter Use as 1 Each 0 12/25/2015 Active (ACCU-CHEK RUBI) directed Misc Lancets (ACCU-CHEK Use as 300 Each 3 12/30/2015 Active SOFTCLIX LANCETS) directed Misc three (3) times daily blood sugar 3 (three) 300 Strip 3 12/30/2015 Active diagnostic times daily. (ACCU-CHEK ACTIVE Use as TEST) strip directed atorvastatin 20 mg Take 1 tablet 30 tablet 0 06/04/2020 Active tabletIndications: by mouth at [facility] bedtime. (hyperlipidemia) primidone 50 mg Take 1 tablet 60 tablet 0 06/04/2020 Active tabletIndications: by mouth Pneumonia of both every 12 lungs due to (twelve) infectious hours. organism, unspecified part of lung metoprolol tartrate Take 1 tablet 60 tablet 0 06/04/2020 Active 25 mg by mouth 2 tabletIndications: (two) times Pneumonia of both daily. lungs due to infectious organism, unspecified part of lung sacubitriL-valsarta Take 1 tablet 60 tablet 0 06/04/2020 Active n 97-103 mg by mouth 2 tabletIndications: (two) times Pneumonia of both daily. lungs due to infectious organism, unspecified part of lung levoFLOXacin 500 mg Take 1 tablet 5 tablet 0 06/04/2020 Active tabletIndications: by mouth Pneumonia of both every 24 lungs due to (twenty-four) infectious hours. organism, unspecified part of lung acidophilus 100 Take 1 tablet 60 tablet 0 06/04/2020 Active million cell by mouth 2 tabletIndications: (two) times Pneumonia of both daily. lungs due to infectious organism, unspecified part of lung primidone Take 50 mg by 0 Discon tinued (MYSOLINE) 50 mg mouth every 0 ( Reorder) tablet 12 (twelve) hours. FERROUS FUMARATE Take 65 mg by 0 Discontinued (IRON ORAL) mouth daily. 0 EXFORGE 10-320 mg TAKE 1 TABLET 30 Tab 6 01/03/2014 02 Discontinued per tablet BY MOUTH 0 EVERY DAY amlodipine-valsarta Take 1 tablet 0 Discontinued n (EXFORGE) 10-320 by mouth 0 mg per tablet daily. atorvastatin Take 1 tablet 30 tablet 11 01/28/2016 Di scontinued (LIPITOR) 20 mg by mouth at 0 (R eorder) tabletIndications: bedtime. HLD (hyperlipidemia) Insulin Glargine inject 8 1 Box 5 01/28/2016 Di scontinued (LANTUS SOLOSTAR) Units under 0 100 unit/mL (3 mL) the skin injectionIndication daily. 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, uncontrolled(250.52) HLD (hyperlipidemia) 11/25/2009 Overview: ICD10 Diagnosis Term Property Disposal Manager Utility Essential hypertension, benign 11/25/2009 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 01/24/2009 manifestations, not stated as uncontrolled(250.50) documented as of this encounter (statuses as of 06/04/2020) Social History Tobacco Use Types Packs/Day Years [...] of this encounter Last Filed Vital Signs Vital Sign Reading Time Taken Comments Blood Pressure 156/85 06/04/2020 3:55 PM CDT Pulse 67 06/04/2020 3:00 PM CDT Temperature 36.1 C (96.9 F) 06/04/2020 3:00 PM CDT Respiratory Rate 18 06/04/2020 3:55 PM CDT Oxygen Saturation 92% 06/04/2020 3:55 PM CDT Inhaled Oxygen Concentration - - Weight 66 kg (145 lb 8 oz) 06/03/2020 1:15 AM CDT Height 165.1 cm (5' 5") 05/30/2020 1:15 AM CDT Body Mass Index 24.21 05/30/2020 1:15 AM CDT documented in this encounter Discharge Summaries Sukhwinder Hughes MD - 06/04/2020 5:35 PM CDT [facility] Hospitalist Discharge Summary Date of Service: ADMIT DATE: 05/29/2020 DISCHARGE DATE: 06/04/2020 ATTENDING MD: Sukhwinder Hughes MD PCP: Pia Jose REASON FOR ADMISSION Dyspnea HOSPITAL COURSE: # Acute on chronic systolic CHF # [...] 2/2 Pneumococcal pneumonia with metabolic encephalopathy and COLIN - Discontinued vanc, zosyn x 2d. Switched to po levaquin course. - Much improved # COLIN on CKD 3 # vit D deficiency # iron deficiency - avoid nephrotoxins - nephrology consulted - monitor renal function - lasix dose decreasedand changed to po - vit D and iron suppl # DM2 - SSI - A1c 5.4 # Dementia PHYSICAL EXAM: General: No acute distress HEENT: Normal oral mucosa, anicteric sclerae, NCAT Cardiovascular: RRR Lungs: Symmetric expansion Skin: No rash, lesions Neuro: AAOx3, no focal deficits Psych: Normal affect SIGNIFICANT LAB/X-RAYS: LABS - reviewed pertinent labs as below: CBC BMP PT/INR WBC x10^3 (/uL) Date Value 01/22/2015 5.1 WBC (10*3/L) Date Value 06/03/2020 2.42 (L) NA Date Value 06/03/2020 136 mmol/L 01/22/2015 136 MMOL/L No results found for: PT RBC x10^6 (/uL) Date Value 01/22/2015 3.65 (L) RBC (10*6/L) Date Value 06/03/2020 2.99 (L) K Date Value 06/03/2020 3.9 mmol/L 01/22/2015 4.8 MMOL/L INR-LC (no units) Date Value 01/16/2014 1.0 INR (no units) Date Value 05/30/2020 1.2 PLT x10^3 (/uL) Date Value 01/22/2015 172 PLT (10*3/L) Date Value 06/03/2020 146 (L) CALCIUM Date Value 06/03/2020 9.4 mg/dL 01/22/2015 9.9 MG/DL HGB Date Value 06/03/2020 9.6 g/dL (L) 01/22/2015 11.6 G/DL (L) CL Date Value 06/03/2020 100 mmol/L 01/22/2015 101 MMOL/L aPTT HCT (%) Date Value 06/03/2020 27.6 (L) 01/22/2015 33.2 (L) BUN Date Value 06/03/2020 37 mg/dL (H) 01/22/2015 23 MG/DL APTT Patient (Seconds) Date Value 03/25/2015 36 CREATININE Date Value 06/03/2020 1.85 mg/dL (H) 01/22/2015 1.37 MG/DL (H) IMAGING - reviewed Hospital Encounter on 05/29/20 MOD BARIUM SWALLOW, ([facility]) Narrative EXAM: [place] MODIFIED BARIUM SWALLOW HISTORY: aspiration TECHNIQUE: Barium of varying consistencies from thin liquids to solids was administered to the patient during fluoroscopy. The study was performed with the speech pathologists. FINDINGS: The swallow reflex and protective mechanisms are intact. Flash penetration was observed when fed with thin liquids. No penetration or aspiration was seen with nectar thick liquid, puree or jewelry solids. Impression Flash laryngeal penetration on swallowing of thin fluids. Please refer to the speech pathologist's report for further details. CT THORAX WO CONTRAST Narrative PROCEDURE: CT CHEST WITHOUT CONTRAST - CHEST PROTOCOL CLINICAL INDICATION:Acute resp illness, > 40 years old COMPARISON: None TECHNIQUE: Helical CT was performed of the chest (lung apices to bases) using 100 mL Omnipaque-350 nonionic intravenous contrast, without complications. Images were reconstructed at 1.25 mm slice thickness. Axial MIPs and coronal and sagittal MPR images were generated and reviewed. (Display [id number] = 35 cm) FINDINGS: Lower neck/thyroid: Unremarkable. Lungs: Centrilobular septal thickening with groundglass attenuating parenchyma. Left lower lobe calcified granuloma. A 0.4 cm noncalcified, solid pulmonary nodule along the horizontal fissure (10:53), likely a pulmonary lymph node. Spiculated subpleural nodule within the right upper lobe (10:37). A 0.9 cm pulmonary nodule in the right lower lobe (10:66), this may represent a focus of pulmonary edema or atelectasis. Left lower lobe nodular opacities measure 0.7 cm, 0.8 cm and 0.6 cm, also may represent foci of pulmonary edema and/or atelectasis. Central airway: Unremarkable. Pleura: Large volume right pleural effusion. Trace volume left pleural effusion. No thickening or pneumothorax. Thoracic aorta and great vessels: Normal in diameter. Pulmonary arteries: Normal in caliber. Heart and pericardium: No detectable coronary artery calcifications. Cardiac megaly. Lymph nodes: Calcified mediastinal and bilateral hilar lymph nodes. Mediastinum: Unremarkable. Thoracic spine and chest wall: Unremarkable, with normal thoracic vertebral body heights. Other Lines/Tubes/Devices/Hardware: Left chest wall pacemaker/AICD with leads terminating in the right ventricle, right atrium, and coronary sinus.. Visualized upper abdomen: Scattered splenic and hepatic calcified granulomas. Impression 1. Pulmonary edema with moderate volume right and trace volume left pleural effusions. Dilated left ventricle. 2. Scattered pulmonary nodular opacities may represent scattered foci of pulmonary edema and/or atelectasis. However, underlying solid, noncalcified pulmonary nodules cannot be excluded. A follow-up CT chest in 3 6 months recommended document. 3. Calcified intrathoracic lymph nodes with calcified pulmonary, hepatic, and splenic granulomas can be seen with prior granulomatous disease. Preliminary Report Dictated by Resident: Leonora Gillespie I, Iam Givens MD., have reviewed this study and agree with the above report. CT HEAD WO CONTRAST Narrative CT HEAD WO CONTRAST HISTORY: Altered mental status (AMS), unclear cause COMPARISON: None available. TECHNIQUE: Routine unenhanced brain CT. FINDINGS: No acute intracranial hemorrhage, extracerebral fluid collection, midline shift or mass effect. No acute transcortical infarction. Trace intracranial atherosclerosis. Ventricles are normal. Cerebral volume is age appropriate. No depressed calvarial fracture. Visualized orbits are unremarkable. Mucosal thickening of a left posterior ethmoid air cell. Impression No acute intracranial hemorrhage or mass effect. XR CHEST 1 VW Narrative HISTORY: Follow-up of CHF. TECHNIQUE: AP view of the chest is obtained. Comparison is made with 05/29/2020 study. FINDINGS: Moderate cardiomegaly noted with minimal, if any, residual pulmonary edema. Atelectatic changes are seen predominantly in the infrahilar right lower lung. No significant pleural effusion. Multiple permanent electrodes inserted through left subclavian appear to be in good position. CONCLUSIONS: Interval improvement since 05/29/2020 study with minimal, if any, residual pulmonary edema seen at this time. XR CHEST 1 VW Narrative EXAM: XR CHEST 1 VW HISTORY: 79 years-old; Male; ACough, SOB, Wheezing COMPARISON: 03/25/2015 radiograph FINDINGS: Left-sided AICD with leads terminating in right atrium, right ventricle and coronary sinus. Lungs/Pleura: Multifocal airspace and interstitial opacities are noted. There is no pleural effusion or pneumothorax. Heart/Mediastinum: The cardiomediastinal silhouette is enlarged, unchanged. No acute osseous structure abnormality. Impression Multifocal interstitial and airspace opacities are concerning for bronchopneumonia. These findings can also be seen with atypical infectious process, including COVID-19 pneumonia. Disclaimer: Generally, the findings on chest imaging in COVID-19 are not specific, and overlap with other infections, including influenza, H1N1, SARS and MERS. According to the Centers for Disease Control (CDC) and recent statement of the [employer], viral testing remains the only specific method of diagnosis. Confirmation with the viral test is required, even if radiologic findings are suggestive of COVID-[address] Preliminary Report Dictated by Resident: Ming Bradley MD., have reviewed this study and agree with the above report. ITEMS FOR FOLLOW UP PROVIDER: (including pending labs/cultures/studies, anticipated problems, etc.) None FUNCTIONAL STATUS: fully ambulatory DISCHARGE CONDITION: good DIET: cardiac ACTIVITY: as tolerated DISCHARGE MEDICATIONS: Current Discharge Medication List START taking these medications Details acidophilus (LACTINEX) 1 g Take 1 g by mouth 2 (two) times daily. Qty: 60 tablet, Refills: 0 Start date: 06/04/2020 Associated Diagnoses: Pneumonia of both lungs due to infectious organism, unspecified part of lung levoFLOXacin (LEVAQUIN) 500 mg Take 500 mg by mouth every 24 (twenty-four) hours. Qty: 5 tablet, Refills: 0 Start date: 06/04/2020 Associated Diagnoses: Pneumonia of both lungs due to infectious organism, unspecified part of lung metoprolol tartrate (LOPRESSOR) 25 mg Take 25 mg by mouth 2 (two) times daily. Qty: 60 tablet, Refills: 0 Start date: 06/04/2020 Associated Diagnoses: Pneumonia of both lungs due to infectious organism, unspecified part of lung sacubitriL-valsartan (ENTRESTO) 1 tablet Take 1 tablet by mouth 2 (two) times daily. Qty: 60 tablet, Refills: 0 Start date: 06/04/2020 Associated Diagnoses: Pneumonia of both lungs due to infectious organism, unspecified part of lung CONTINUE these medications which have CHANGED Details atorvastatin (LIPITOR) 20 mg Take 20 mg by mouth at bedtime. Qty: 30 tablet, Refills: 0 Start date: 06/04/2020 Associated Diagnoses: HLD (hyperlipidemia) primidone (MYSOLINE) 50 mg Take 50 mg by mouth every 12 (twelve) hours. Qty: 60 tablet, Refills: 0 Start date: 06/04/2020 Associated Diagnoses: Pneumonia of both lungs due to infectious organism, unspecified part of lung CONTINUE these medications which have NOT CHANGED Details blood sugar diagnostic (ACCU-CHEK ACTIVE TEST) strip 3 (three) times daily. Use as directed Qty: 300 Strip, Refills: 3 Comments: Patient has a Accu-Chek Smartview Rubi Meter. Lancets (ACCU-CHEK SOFTCLIX LANCETS) Misc Use as directed three (3) times daily Qty: 300 Each, Refills: 3 Comments: Patient has a Accu-Chek Smartview-Rubi Meter Blood-Glucose Meter (ACCU-CHEK RUBI) Misc Use as directed Qty: 1 Each, Refills: 0 Comments: Accu-chek Rubi Smartview meter CALCIUM CARBONATE/VITAMIN D3 (VITAMIN D-3 ORAL) Take by mouth. MULTIVITAMIN W-MINERALS/LUTEIN (CENTRUM SILVER ORAL) Take by mouth. Cyanocobalamin (VITAMIN B-12) 2,[address] under the tongue. magnesium oxide (MAG-OX 400) 400 mg Take 400 mg by mouth daily. ASPIRIN 81 MG ORAL CHEW once daily STOP taking these medications amlodipine-valsartan (EXFORGE) 1 tablet Comments: Reason for Stopping: Insulin Glargine (LANTUS SOLOSTAR U-100 INSULIN) 8 Units Comments: Reason for Stopping: EXFORGE 10-320 mg per tablet Comments: Reason for Stopping: FERROUS FUMARATE (IRON ORAL) 65 mg Comments: Reason for Stopping: DISCHARGE: home self care Please call paging services at [phone] to contact Sukhwinder Hughes MD with any questions. Sukhwinder Hughes MD Hospital discharge time took longer than 35 minutes. documented in this encounter Progress Notes Nafisa Low LMSW - 06/04/2020 4:25 PM CDTSummary: Inpatient Scheduling GLUE SPECIALTY SUPERVISOR spoke with patient son, Matt, to assist with scheduling hospital follow up appointments. Son agreeable to assistance. Son reports that patient is followed by Dr Powell for PCP and Dr. Arenas for Cardiology. GLUE SPECIALTY SUPERVISOR contacted Dr. Arenas's clinic directly for scheduling and clinic reports that patient has a preexisting appointment scheduled for 06/24/2020 at 1:00pm. GLUE SPECIALTY SUPERVISOR contacted Dr. Powell's clinic directly for scheduling and the clinic was closed for the day. Will attempt to contact clinic again tomorrow and inform son. Referrals documented. Nafisa Low LMSW Para Operator - Community [facility] Out[facility] Mary Kay Mckenna - 7th floor Office: [phone] (Not for patient use) [email or web address] Jane Gaines - 06/04/2020 3:49 PM CDTRoutine unit rounding visit; patient shared some of his narrative; rosary was accepted when offered;edge blacker support provided through [facility] and spiritual resource to enable patient to practice his spirituality. Sundar Wheat RN - 06/04/2020 2:09 PM CDTPeer to peer completed, pt was denied SNF. updated and will set up . Sundar Porter RN, BSN [facility] ADC Management And Budget Analyst [phone] Samson Pond PTA - 06/04/2020 1:30 PM CDT06/04/2020 Physical Therapy Progress Note: Discharge Recommendations: Therapy Needs and Potential: decline in transfers and decline in gait and/or balance Challenges to Home Transition: increased risk of falls decreased safety awareness Equipment recommendations: rolling walker PAIN: denies pain PRECAUTIONS: Weight Bearing Precaution: NA General Precautions: PPE used:Gloves and Surgical mask, Fall Bracing/Cast present or required:N/A S: Patient agreeable to working with PT. Pt said he is feeling better today and that he notices he is getting stronger. Pt said he was ready to leave hospital to go home. O: Patient met sitting in bed. He was seen getting up from his chair and was having difficulty getting to bedside. His felipe alarm was activated when he got up. . PT assisted patient to sitting before starting tx. Patient seen for the following: Transfers: Sit to stand: Modified independent, CGA using Rolling Walker Stand to sit: Modified independent, CGA using Rolling Walker Gait: Assisted patient with ambulation as follows: 90 feet using Rolling Walker and CGA. Therapeutic exercise: instructed patient in the following: ankle pumps, quad sets, glut sets, hamstring sets, straight leg raises, long arc quads, seated marching After session, patient Up in chair and call blair provided. Pillow was put underneath patient to sit on in chair to relieve pressure. Garza alarm was set on top of the pillow. RN notified. A: Patient tolerated session fair. Gait is mildly unsteady with forward posture. Requires CGA for safety. Safety awareness is diminished. Fatigues fairly quickly with gait.. P: PT will continue POC with emphasis on gait transfers and functional mobility. Total Timed Tx Codes in Minutes: 26 Min Total Treatment Time in Minutes: 26 Min Samson Villalobos PTA Abilio Lic [id number] [facility] Rehab Services [facility] [phone] Sharri Kim PT supv odMelecio smith FNP - 06/04/2020 1:09 PM CDT Subjective: Patient is a 79 year old male who was recently admitted to [facility] with weakness and falls. He was discharged and brought straight to [facility] by the family because they felt it was unsafe for him to go home. Patient with altered mental status and weakness, found to have possible pneumonia which I have been consulted for. Patient examined at bedside. More awake and alert but still with confusion. Has been ambulatory around the room. Pending transfer to SNF for rehab Objective: Vitals: 06/04/20 0742 06/04/20 1100 06/04/20 1147 06/04/20 1200 BP: 127/68 (!) 156/68 (!) 154/112 Pulse: 71 76 77 Resp: 17 14 17 Temp: 36.5 C (97.7 F) 36.6 C (97.9 F) TempSrc: Temporal Artery Axillary SpO2: 97% 98% 95% Weight: Height: CBC WBC x10^3 (/uL) Date Value 01/22/2015 5.1 WBC (10*3/L) Date Value 06/03/2020 2.42 (L) RBC x10^6 (/uL) Date Value 01/22/2015 3.65 (L) RBC (10*6/L) Date Value 06/03/2020 2.99 (L) PLT x10^3 (/uL) Date Value 01/22/2015 172 PLT (10*3/L) Date Value 06/03/2020 146 (L) HGB Date Value 06/03/2020 9.6 g/dL (L) 01/22/2015 11.6 G/DL (L) HCT (%) Date Value 06/03/2020 27.6 (L) 01/22/2015 33.2 (L) CMP NA Date Value 06/03/2020 136 mmol/L 01/22/2015 136 MMOL/L K Date Value 06/03/2020 3.9 mmol/L 01/22/2015 4.8 MMOL/L CALCIUM Date Value 06/03/2020 9.4 mg/dL 01/22/2015 9.9 MG/DL CL Date Value 06/03/2020 100 mmol/L 01/22/2015 101 MMOL/L BUN Date Value 06/03/2020 37 mg/dL (H) 01/22/2015 23 MG/DL CREATININE Date Value 06/03/2020 1.85 mg/dL (H) 01/22/2015 1.37 MG/DL (H) GLUCOSE Date Value 06/03/2020 87 mg/dL 01/22/2015 95 MG/DL CO2 TOTAL Date Value 06/03/2020 27 mmol/L 01/22/2015 28 MMOL/L ALBUMIN Date Value 06/03/2020 3.2 g/dL (L) 01/22/2015 3.8 G/DL T PROTEIN Date Value 06/03/2020 6.3 g/dL 01/22/2015 6.3 G/DL TOTAL BILI Date Value 06/03/2020 0.4 mg/dL 01/22/2015 0.3 MG/DL ALT(SGPT) (U/L) Date Value 01/28/2016 24 01/22/2015 29 ALTv (U/L) Date Value 06/03/2020 22 AST(SGOT) (U/L) Date Value 06/03/2020 31 01/22/2015 20 ALK PHOS (U/L) Date Value 06/03/2020 58 01/22/[address] chest 05/30: PROCEDURE: CT CHEST WITHOUT CONTRAST - CHEST PROTOCOL CLINICAL INDICATION:Acute resp illness, >40 years old COMPARISON: None TECHNIQUE: Helical CT was performed of the chest (lung apices to bases) using 100 mL Omnipaque-350 nonionic intravenous contrast, without complications. Images were reconstructed at 1.25 mm slice thickness. Axial MIPs and coronal and sagittal MPR images were generated and reviewed. (Display [id number] = 35 cm) FINDINGS: Lower neck/thyroid: Unremarkable. Lungs: Centrilobular septal thickening with groundglass attenuating parenchyma. Left lower lobe calcified granuloma. A 0.4 cm noncalcified, solid pulmonary nodule along the horizontal fissure (10:53), likely a pulmonary lymph node. Spiculated subpleural nodule within the right upper lobe (10:37). A 0.9 cm pulmonary nodule in the right lower lobe (10:66), this may represent a focus of pulmonary edema or atelectasis. Left lower lobe nodular opacities measure 0.7 cm, 0.8 cm and 0.6 cm, also may represent foci of pulmonary edema and/or atelectasis. Central airway: Unremarkable. Pleura: Large volume right pleural effusion. Trace volume left pleural effusion. No thickening or pneumothorax. Thoracic aorta and great vessels: Normal in diameter. Pulmonary arteries: Normal in caliber. Heart and pericardium: No detectable coronary artery calcifications. Cardiac megaly. Lymph nodes: Calcified mediastinal and bilateral hilar lymph nodes. Mediastinum: Unremarkable. Thoracic spine and chest wall: Unremarkable, with normal thoracic vertebral body heights. Other Lines/Tubes/Devices/Hardware: Left chest wall pacemaker/AICD with leads terminating in the right ventricle, right atrium, and coronary sinus.. Visualized upper abdomen: Scattered splenic and hepatic calcified granulomas. IMPRESSION 1. Pulmonary edema with moderate volume right and trace volume left pleural effusions. Dilated left ventricle. 2. Scattered pulmonary nodular opacities may represent scattered foci of pulmonary edema and/or atelectasis. However, underlying solid, noncalcified pulmonary nodules cannot be excluded. A follow-up CT chest in 3 6 months recommended document. 3. Calcified intrathoracic lymph nodes with calcified pulmonary, hepatic, and splenic granulomas can be seen with prior granulomatous disease. ROS: General: AOX2, pleasant CV: S1,S2, murmur RESP: Good breath sounds ABD: Nontender, bowel sounds present Extremities: multiple bruises to bilateral upper extremities, no edema Assessment and plan: Feverresolved Pneumonia, CT shows scattered pulmonary nodular opacities, Recommend pulmonary consult and follow upCT Procalcitonin 0.06 Bloodcultures show Staph coag negative, most likely contamination, repeat cultures 06/01 show no growth to date Levaquinday 02/26 Diabetes mellitus, monitor glycemic control Will continue to monitor Patient discussed with Dr. Brown Sundar Wheat RN - 06/04/2020 1:04 PM CDTMD notified about peer to peer. Contact info provided to MD. Sundar Porter RN, BSN [facility] Management And Budget Analyst O [phone] F [phone] Sukhwinder Rodgers MD - 06/04/2020 10:01 AM CDT [facility] Hospitalist Progress Note SUBJECTIVE: No acute events overnight. Patient wants to go home. CURRENT MEDICATIONS - reviewed. Current Facility-Administered Medications Medication Dose Route Frequency Last Rate Last Dose levoFLOXacin (LEVAQUIN) tablet 750 mg 750 mg Oral Q48H 750 mg at 06/02/20 1251 bisacodyL (DULCOLAX) suppository 10 mg 10 mg Rectal QHS Stopped at 06/03/202099 sennosides (SENOKOT) tablet 8.6 mg 8.6 mg Oral BID Stopped at 06/03/201999 haloperidol lactate (HALDOL) injection 5 mg 5 mg Slow IV Push QHSPRN 5 mg at 05/31/206 acetaminophen (TYLENOL) tablet 650 mg 650 mg Oral Q6HPRN 650 mg at 05/31/20 0554 ascorbic acid (vitamin C) (VITAMIN C) tablet 500 mg 500 mg Oral TID 500 mg at 06/04/20901 aspirin chewable tablet 81 mg 81 mg Oral DAILY 81 mg at 06/04/20901 atorvastatin (LIPITOR) tablet 40 mg 40 mg Oral QHS 40 mg at 06/03/202048 cholecalciferol (vitamin D3) tablet 1,000 Units 1,000 Units Oral BID 1,000 Units at 06/04/20900 dextrose 50 % in water (D50W) injection 25 mL 25 mL Slow IV Push PRN docusate (COLACE) capsule 100 mg 100 mg Oral BID Stopped at 06/03/201999 glucagon (GLUCAGEN DIAGNOSTIC KIT) injection 1 mg 1 mg Intramuscular PRN heparin (porcine) injection 5,000 Units 5,000 Units Subcutaneous Q8H 5,000 Units at 06/04/20 0508 metoprolol tartrate (LOPRESSOR) tablet 25 mg 25 mg Oral BID 25 mg at 06/04/20901 ondansetron (ZOFRAN (PF)) injection 4 mg 4 mg Slow IV Push Q6HPRN primidone (MYSOLINE) tablet 250 mg 250 mg Oral Q6H 250 mg at 06/04/20 0508 sacubitriL-valsartan (ENTRESTO) 97-103 mg tablet 1 tablet 1 tablet Oral BID 1 tablet at 06/04/20 09 Sliding Scale Insulin - Aspart (NOVOLOG) + Fsbg Testing Subcutaneous TID MEALS+HS Stopped at06/04/20 08 sodium ferric gluconate (FERRLECIT) 125 mg in NaCl 0.9% (NS) 100 mL IV piggyback 125 mg IV Piggyback DAILY 125 mg at 06/04/20 09 zinc sulfate (ORAZINC) capsule 220 mg 220 mg Oral BID 220 mg at 06/04/20 09 PHYSICAL EXAM: BP 127/68 | Pulse 71 | Temp 36.5 C (97.7 F) (Temporal Artery) | Resp 17 | Ht 5' 5" (1.651 m) | Wt 145 lb 8 oz (66 kg) | SpO2 97% | BMI 24.21 kg/m General: No respiratory distress HEENT: Anicteric sclerae, NCAT Lungs: Symmetric expansion Cardio: RRR Musculoskeletal: Normal muscle mass, no synovitis Skin: No rash or lesions Neuro: AAOx3, no focal deficits Psych: Normal affect LABS/IMAGING - reviewed, pertinent results as below: CBC BMP PT/INR WBC x10^3 (/uL) Date Value 01/22/2015 5.1 WBC (10*3/L) Date Value 06/03/2020 2.42 (L) NA Date Value 06/03/2020 136 mmol/L 01/22/2015 136 MMOL/L No results found for: PT RBC x10^6 (/uL) Date Value 01/22/2015 3.65 (L) RBC (10*6/L) Date Value 06/03/2020 2.99 (L) K Date Value 06/03/2020 3.9 mmol/L 01/22/2015 4.8 MMOL/L INR-LC (no units) Date Value 01/16/2014 1.0 INR (no units) Date Value 05/30/2020 1.2 PLT x10^3 (/uL) Date Value 01/22/2015 172 PLT (10*3/L) Date Value 06/03/2020 146 (L) CALCIUM Date Value 06/03/2020 9.4 mg/dL 01/22/2015 9.9 MG/DL HGB Date Value 06/03/2020 9.6 g/dL (L) 01/22/2015 11.6 G/DL (L) CL Date Value 06/03/2020 100 mmol/L 01/22/2015 101 MMOL/L aPTT HCT (%) Date Value 06/03/2020 27.6 (L) 01/22/2015 33.2 (L) BUN Date Value 06/03/2020 37 mg/dL (H) 01/22/2015 23 MG/DL APTT Patient (Seconds) Date Value 03/25/2015 36 CREATININE Date Value 06/03/2020 1.85 mg/dL (H) 01/22/2015 1.37 MG/DL (H) IMAGING- Hospital Encounter on 05/29/20 MOD BARIUM SWALLOW, (DARCY) Narrative EXAM: FL MODIFIED BARIUM SWALLOW HISTORY: aspiration TECHNIQUE: Barium of varying consistencies from thin liquids to solids was administered to the patient during fluoroscopy. The study was performed with the speech pathologists. FINDINGS: The swallow reflex and protective mechanisms are intact. Flash penetration was observed when fed with thin liquids. No penetration or aspiration was seen with nectar thick liquid, puree or jewelry solids. Impression Flash laryngeal penetration on swallowing of thin fluids. Please refer to the speech pathologist's report for further details. CT THORAX WO CONTRAST Narrative PROCEDURE: CT CHEST WITHOUT CONTRAST - CHEST PROTOCOL CLINICAL INDICATION:Acute resp illness, > 40 years old COMPARISON: None TECHNIQUE: Helical CT was performed of the chest (lung apices to bases) using 100 mL Omnipaque-350 nonionic intravenous contrast, without complications. Images were reconstructed at 1.25 mm slice thickness. Axial MIPs and coronal and sagittal MPR images were generated and reviewed. (Display eyvua-fp-ahxi = 35 cm) FINDINGS: Lower neck/thyroid: Unremarkable. Lungs: Centrilobular septal thickening with groundglass attenuating parenchyma. Left lower lobe calcified granuloma. A 0.4 cm noncalcified, solid pulmonary nodule along the horizontal fissure (10:53), likely a pulmonary lymph node. Spiculated subpleural nodule within the right upper lobe (10:37). A 0.9 cm pulmonary nodule in the right lower lobe (10:66), this may represent a focus of pulmonary edema or atelectasis. Left lower lobe nodular opacities measure 0.7 cm, 0.8 cm and 0.6 cm, also may represent foci of pulmonary edema and/or atelectasis. Central airway: Unremarkable. Pleura: Large volume right pleural effusion. Trace volume left pleural effusion. No thickening or pneumothorax. Thoracic aorta and great vessels: Normal in diameter. Pulmonary arteries: Normal in caliber. Heart and pericardium: No detectable coronary artery calcifications. Cardiac megaly. Lymph nodes: Calcified mediastinal and bilateral hilar lymph nodes. Mediastinum: Unremarkable. Thoracic spine and chest wall: Unremarkable, with normal thoracic vertebral body heights. Other Lines/Tubes/Devices/Hardware: Left chest wall pacemaker/AICD with leads terminating in the right ventricle, right atrium, and coronary sinus.. Visualized upper abdomen: Scattered splenic and hepatic calcified granulomas. Impression 1. Pulmonary edema with moderate volume right and trace volume left pleural effusions. Dilated left ventricle. 2. Scattered pulmonary nodular opacities may represent scattered foci of pulmonary edema and/or atelectasis. However, underlying solid, noncalcified pulmonary nodules cannot be excluded. A follow-up CT chest in 3 6 months recommended document. 3. Calcified intrathoracic lymph nodes with calcified pulmonary, hepatic, and splenic granulomas can be seen with prior granulomatous disease. Preliminary Report Dictated by Resident: Leonora Gillespie I, Iam Givens MD., have reviewed this study and agree with the above report. CT HEAD WO CONTRAST Narrative CT HEAD WO CONTRAST HISTORY: Altered mental status (AMS), unclear cause COMPARISON: None available. TECHNIQUE: Routine unenhanced brain CT. FINDINGS: No acute intracranial hemorrhage, extracerebral fluid collection, midline shift or mass effect. No acute transcortical infarction. Trace intracranial atherosclerosis. Ventricles are normal. Cerebral volume is age appropriate. No depressed calvarial fracture. Visualized orbits are unremarkable. Mucosal thickening of a left posterior ethmoid air cell. Impression No acute intracranial hemorrhage or mass effect. XR CHEST 1 VW Narrative HISTORY: Follow-up of CHF. TECHNIQUE: AP view of the chest is obtained. Comparison is made with 05/29/2020 study. FINDINGS: Moderate cardiomegaly noted with minimal, if any, residual pulmonary edema. Atelectatic changes are seen predominantly in the infrahilar right lower lung. No significant pleural effusion. Multiple permanent electrodes inserted through left subclavian appear to be in good position. CONCLUSIONS: Interval improvement since 05/29/2020 study with minimal, if any, residual pulmonary edema seen at this time. XR CHEST 1 VW Narrative EXAM: XR CHEST 1 VW HISTORY: 79 years-old; Male; ACough, SOB, Wheezing COMPARISON: 03/25/2015 radiograph FINDINGS: Left-sided AICD with leads terminating in right atrium, right ventricle and coronary sinus. Lungs/Pleura: Multifocal airspace and interstitial opacities are noted. There is no pleural effusion or pneumothorax. Heart/Mediastinum: The cardiomediastinal silhouette is enlarged, unchanged. No acute osseous structure abnormality. Impression Multifocal interstitial and airspace opacities are concerning for bronchopneumonia. These findings can also be seen with atypical infectious process, including COVID-19 pneumonia. Disclaimer: Generally, the findings on chest imaging in COVID-19 are not specific, and overlap with other infections, including influenza, H1N1, SARS and MERS. According to the Centers for Disease Control (CDC) and recent statement of the [employer], viral testing remains the only specific method of diagnosis. Confirmation with the viral test is required, even if radiologic findings are suggestive of COVID-[address] Preliminary Report Dictated by Resident: Darvin Crabtree I, Ming Lara MD., have reviewed this study and agree with the above report. ASSESSMENT/PLAN Enma Cat is a 79 year old male with PMH as listed above, admitted to the hospital with: # Acute on chronic systolic CHF # h/o NICMP # NSTEMI, likely type 2 # HTN - CT and CXR showed pulm edema. Improved with IV lasix then switched to po. Monitor I/O. Daily weight - entresto, metoprolol - asa, statin - echo showed no new change, EF 40-45%, mitral regurg - cardiology following. Follow with Dr. Arenas as outpt # Sepsis 2/2 Pneumococcal pneumonia with metabolic encephalopathy and COLIN - Discontinued vanc, zosyn x 2d. Switched to po levaquin day 01/26. - ID consulted - [employer] on board # COLIN on CKD 3 # vit D deficiency # iron deficiency - avoid nephrotoxins - nephrology consulted - monitor renal function - lasix dose decreased and changed to po - vit D and iron suppl # DM2 - SSI - A1c 5.4 # Dementia Dispo: [facility] VTE Prophylaxis: heparin Code Status: KURT Hughes MD Marya Cross SLP - 06/04/2020 9:57 AM [employer] L[employer]UAGE PATHOLOGY Daily Progress Note 06/04/2020 [id number] Name: Enma Cat : 1940 Age: [age] year old Sex: male SUBJECTIVE: Pt awake, alert, pleasantly conversing and making jokes. He is agreeable to therapy, but mentions that he would like to go home. OBJECTIVE: Enma Cat is a 79 year old male admitted for confusion and dyspnea with PMH significant for CVA, HTN, DM II, CAD. Patient was seen on this date for 1 dysphagia treatment. Pertinent Imaging: Xr Chest 1 Vw Result Date: 05/29/2020 Multifocal interstitial and airspace opacities are concerning for bronchopneumonia. These findings can also be seen with atypical infectious process, including COVID-19 pneumonia. Disclaimer: Generally, the findings on chest imaging in COVID-19 are not specific, and overlap with other infections, including influenza, H1N1, SARS and MERS. According to the Centers for Disease Control (CDC) and recent statement of the [employer], viral testing remains the only specific method of diagnosis. Confirmation with the viral test is required, even if radiologic findings are suggestive of COVID-[address] Preliminary Report Dictated by Resident: Darvin Crabtree I, Ming Lara MD., have reviewed this study and agree with the above report. Ct Head Wo Contrast Result Date: 05/29/2020 No acute intracranial hemorrhage or mass effect. Ct Thorax Wo Contrast Result Date: 05/30/2020 1. Pulmonary edema with moderate volume right and trace volume left pleural effusions. Dilated leftventricle. 2. Scattered pulmonary nodular opacities may represent scattered foci of pulmonary edemaand/or atelectasis. However, underlying solid, noncalcified pulmonary nodules cannot be excluded. A follow-up CT chest in 3 6 months recommended document. 3. Calcified intrathoracic lymph nodes with calcified pulmonary, hepatic, and splenic granulomas can be seen with prior granulomatous disease. Preliminary Report Dictated by Resident: Iam Mcguire MD., have reviewed this study and agree with the above report. Mod Barium Swallow, (cookie) Result Date: 06/02/2020 Flash laryngeal penetration on swallowing of thin fluids. Please refer to the speech pathologist's report for further details. Progress on short term goals was as follows: - Patient will tolerate the safest, least restricted po diet texture without overt s/sx of aspiration or other negative effects on medical condition. Patient observed drinking thin liquids (approx 5 oz) and eating solids with no si/sx of aspiration (Note: aspiration cannot be ruled out nor confirmed without objective assessment/imaging.) RN reports that patient is eating//drinking well. (goal met) - Patient/family will verbalize swallowing precautions with minimal cues 80% of the time. Goal not addressed on this date. (goal progressing, continue) - Patient will demonstrate adherence to swallowing precautions while eating a meal/snack with minimal cues 80% of the time. Patient able to demonstrate sitting upright and remaining upright independently. Patient needed minimal cues for secondary swallow. (goal met) ASSESSMENT: Enma Cat made good progress on goals as detailed above. He appeared to tolerate regular diet with thin liquids at bedside. He was also able to demonstrate using upright positioning and remaining upright while eating and drinking. [employer] reviewed secondary swallow, which patient was able to demonstrate. He appears safe to continue PO diet as detailed below. PLAN: 1. Recommend patient advance a regular-textured diet with thin liquids and swallow precautions: sit fully upright/chair, remain upright for 30 minutes after meals and use secondary, dry swallow with each bite/sip No further acute [employer] needs, this service is signing off. Please re-consult if indicated, thank you. Marya Garza MS, [facility]-[employer] Speech-Language Pathologist Phone/Text # [phone] mello, MD Vanessa - 06/04/2020 8:08 AM CDT [facility] Cardiology progress note Date of Service: 06/04/2020 Enma Cat is a 79 years old male hospitalized for pneumonia. Feeling better. Cr remains elevated. PHYSICAL EXAM Vitals: 06/04/20 0023 06/04/20 0400 06/04/20 0733 06/04/20 0742 BP: (!) 141/74 133/63 127/68 Pulse: 70 69 71 Resp: 13 13 16 17 Temp: 36.5 C (97.7 F) 36.9 C (98.5 F) 36.5 C (97.7 F) TempSrc: Oral Oral Temporal Artery SpO2: 100% 97% 97% 97% Weight: Height: General: alert and oriented x 3 (person, place and date/time); no apparent distress HEENT: normocephalic atraumatic Neck: supple, no lymphadenopathy, no bruits, no JVD Lungs: clear to auscultation bilaterally Cardio: S1, S2, normal rate, regular; no murmurs, rubs or gallops Abdomen: non-distended : not examined Rectal: not examined Extremities: no clubbing, cyanosis, or edema Skin: no rashes Neuro: no focal deficits Medications: I have reviewed the patient's medications; see Medication Reconciliation. Labs: I have reviewed the patient's labs. ASSESSMENT AND PLAN Principal Problem: Dyspnea Active Problems: HLD (hyperlipidemia) Essential hypertension, benign Acute on chronic diastolic congestive heart failure Pneumonia due to infectious organism Elevated troponin I level Stage 3 chronic kidney disease E44.1 Mild protein-calorie malnutrition Sepsis/multifoal pneumonia/toxic metabolic encephalopathy: As per primary team. Improving. Elevated trop: Troponin trending down. Likely Type 2 NC in the HF and sepsis, demand ischemia. Continue ASA/lipitor/metoprolol. Nonischemic cardiomyopathy/Acute on chronic systolic/diastolic HF: Significantly elevated NT pro BNPnoted. Echo reviewed. Continue home dose of Lopressor 25 mg BiD, Entresto 97/103 mg BiD. Given rising Cr, will hold lasix for now. Will repeat CXR for adjustment. Dyslipidemia: on lipitor 40 mg daily. COLIN on CKD3: will monitor. Vanessa Sanders MD, [facility] [place] Client Experience Consultant, Division of Cardiology [facility] Emilie Valencia MD - 06/03/2020 10:57 PM CDT [facility] Cardiology progress note Date of Service: 06/03/2020 Enma Cat is a 79 year old male hospitalized for hospitalized for pneumonia. No new cardiac complaints noted. PHYSICAL EXAM Vitals: 06/03/20 1200 06/03/20 1600 06/03/20199906/03/202008 BP: 139/77 134/65 139/68 Pulse: 79 69 69 64 Resp: 16 15 12 18 Temp: 36.4 C (97.5 F) 36.9 C (98.5 F) TempSrc: SpO2: 99% 99% 100% 94% Weight: Height: Date 06/03/20 0700 - 06/04/20 0659 Shift 5128-5974 1272-6506 7594-9985 24 Hour Total INTAKE Oral 300 300 Shift Total 300 300 OUTPUT Urine(mL/kg/hr) 700(1.3) 700 Shift Total 700 700 Weight (kg) 66 66 66 66 General: no apparent distress HEENT: normocephalic atraumatic Neck: supple, no lymphadenopathy, no bruits, no JVD Lungs: clear to auscultation bilaterally Cardio: S1, S2, regular; no murmurs, rubs or gallops Abdomen: non-distended : not examined Rectal: not examined Extremities: no clubbing, cyanosis, or edema Skin: no rashes Neuro: no focal deficits Medications: I have reviewed the patient's medications; see Medication Reconciliation. Labs: I have reviewed the patient's labs. CBC BMP PT/INR WBC x10^3 (/uL) Date Value 01/22/2015 5.1 WBC (10*3/L) Date Value 06/03/2020 2.42 (L) NA Date Value 06/03/2020 136 mmol/L 01/22/2015 136 MMOL/L No results found for: PT PLT x10^3 (/uL) Date Value 01/22/2015 172 PLT (10*3/L) Date Value 06/03/2020 146 (L) K Date Value 06/03/2020 3.9 mmol/L 01/22/2015 4.8 MMOL/L INR-LC (no units) Date Value 01/16/2014 1.0 INR (no units) Date Value 05/30/2020 1.2 HGB Date Value 06/03/2020 9.6 g/dL (L) 01/22/2015 11.6 G/DL (L) BUN Date Value 06/03/2020 37 mg/dL (H) 01/22/2015 23 MG/DL HCT (%) Date Value 06/03/2020 27.6 (L) 01/22/2015 33.2 (L) CREATININE Date Value 06/03/2020 1.85 mg/dL (H) 01/22/2015 1.37 MG/DL (H) LIPID PROFILE GLUCOSE Date Value 06/03/2020 87 mg/dL 01/22/2015 95 MG/DL CHOL Date Value 05/29/2020 174 mg/dL 01/22/2015 184 MG/DL TSH LDL CHOL Date Value 05/29/2020 120 mg/dL 01/22/2015 106 MG/DL TSH Date Value 05/29/2020 2.74 mIU/L 01/22/2015 1.40 uIU/mL CARDIAC ENZYMES HDL CHOL (MG/DL) Date Value 01/22/2015 40 HDL (mg/dL) Date Value 05/29/2020 37 (L) CK (U/L) Date Value 05/29/2020 88 TRIG Date Value 05/29/2020 85 mg/dL 01/22/2015 192 MG/DL (H) LFTs CK-MB (ng/mL) Date Value 03/27/2015 0.59 AST(SGOT) (U/L) Date Value 06/03/2020 31 01/22/2015 20 TROPONIN I (ng/mL) Date Value 05/31/2020 0.167 (H) ALT(SGPT) (U/L) Date Value 01/28/2016 24 01/22/2015 29 ALTv (U/L) Date Value 06/03/2020 22 No results found for: BNP LDL CHOL Date Value 05/29/2020 120 mg/dL 01/22/2015 106 MG/DL Recent Labs 05/31/20 0332 TROPNI 0.167* Recent Labs 05/29/20 1959 TRIG 85 LDL CHOL Date Value 05/29/2020 120 mg/dL 01/22/2015 106 MG/DL NT-proBNP (pg/mL) Date Value 06/01/2020 32,400 (H) ASSESSMENT AND PLAN Principal Problem: Dyspnea Active Problems: HLD (hyperlipidemia) Essential hypertension, benign Acute on chronic diastolic congestive heart failure Pneumonia due to infectious organism Elevated troponin I level Stage 3 chronic kidney disease E44.1 Mild protein-calorie malnutrition Sepsis/multifoal pneumonia/toxic metabolic encephalopathy: As per primary team. Elevated trop: Troponin trending down. Type 2 NC in the HF and sepsis, demand ischemia. Continue ASA/lipitor/metoprolol. Nonischemic cardiomyopathy/Acute on chronic systolic/diastolic HF: Significantly elevated NT pro BNPnoted. Echo results reviewed. Continue home dose of Lopressor 25 mg BiD, Entresto 97/103 mg BiD. Holding lasix for now. Dyslipidemia: on lipitor 40 mg daily. COLIN on CKD3: will monitor. Marco Strange MD Client Experience Consultant, Division of Cardiology [facility] odd, [place], [place] IN CHARGE - 06/03/2020 12:31 PM CDT Subjective: Patient is a 79 year old male who was recently admitted to [facility] with weakness and falls. He was discharged and brought straight to [facility] ED by the family because they felt it was unsafe for him to go home. Patient with altered mental status and weakness, found to have possible pneumonia which I have been consulted for. Patient examined at bedside. More awake and alert. Has been ambulatory around the room. Pending transfer to SNF for rehab Objective: Vitals: 06/03/20 0400 06/03/20 0751 06/03/20 0753 06/03/20 1200 BP: 125/72 (!) 151/83 139/77 Pulse: 74 69 79 Resp: 12 17 16 16 Temp: 36.1 C (97 F) 36.5 C (97.7 F) 36.4 C (97.5 F) TempSrc: Axillary Oral SpO2: 97% 97% 100% 99% Weight: Height: CBC WBC x10^3 (/uL) Date Value 01/22/2015 5.1 WBC (10*3/L) Date Value 06/03/2020 2.42 (L) RBC x10^6 (/uL) Date Value 01/22/2015 3.65 (L) RBC (10*6/L) Date Value 06/03/2020 2.99 (L) PLT x10^3 (/uL) Date Value 01/22/2015 172 PLT (10*3/L) Date Value 06/03/2020 146 (L) HGB Date Value 06/03/2020 9.6 g/dL (L) 01/22/2015 11.6 G/DL (L) HCT (%) Date Value 06/03/2020 27.6 (L) 01/22/2015 33.2 (L) CMP NA Date Value 06/03/2020 136 mmol/L 01/22/2015 136 MMOL/L K Date Value 06/03/2020 3.9 mmol/L 01/22/2015 4.8 MMOL/L CALCIUM Date Value 06/03/2020 9.4 mg/dL 01/22/2015 9.9 MG/DL CL Date Value 06/03/2020 100 mmol/L 01/22/2015 101 MMOL/L BUN Date Value 06/03/2020 37 mg/dL (H) 01/22/2015 23 MG/DL CREATININE Date Value 06/03/2020 1.85 mg/dL (H) 01/22/2015 1.37 MG/DL (H) GLUCOSE Date Value 06/03/2020 87 mg/dL 01/22/2015 95 MG/DL CO2 TOTAL Date Value 06/03/2020 27 mmol/L 01/22/2015 28 MMOL/L ALBUMIN Date Value 06/03/2020 3.2 g/dL (L) 01/22/2015 3.8 G/DL T PROTEIN Date Value 06/03/2020 6.3 g/dL 01/22/2015 6.3 G/DL TOTAL BILI Date Value 06/03/2020 0.4 mg/dL 01/22/2015 0.3 MG/DL ALT(SGPT) (U/L) Date Value 01/28/2016 24 01/22/2015 29 ALTv (U/L) Date Value 06/03/2020 22 AST(SGOT) (U/L) Date Value 06/03/2020 31 01/22/2015 20 ALK PHOS (U/L) Date Value 06/03/2020 58 01/22/[address] chest 05/30: PROCEDURE: CT CHEST WITHOUT CONTRAST - CHEST PROTOCOL CLINICAL INDICATION:Acute resp illness, >40 years old COMPARISON: None TECHNIQUE: Helical CT was performed of the chest (lung apices to bases) using 100 mL Omnipaque-350 nonionic intravenous contrast, without complications. Images were reconstructed at 1.25 mm slice thickness. Axial MIPs and coronal and sagittal MPR images were generated and reviewed. (Display [id number] = 35 cm) FINDINGS: Lower neck/thyroid: Unremarkable. Lungs: Centrilobular septal thickening with groundglass attenuating parenchyma. Left lower lobe calcified granuloma. A 0.4 cm noncalcified, solid pulmonary nodule along the horizontal fissure (10:53), likely a pulmonary lymph node. Spiculated subpleural nodule within the right upper lobe (10:37). A 0.9 cm pulmonary nodule in the right lower lobe (10:66), this may represent a focus of pulmonary edema or atelectasis. Left lower lobe nodular opacities measure 0.7 cm, 0.8 cm and 0.6 cm, also may represent foci of pulmonary edema and/or atelectasis. Central airway: Unremarkable. Pleura: Large volume right pleural effusion. Trace volume left pleural effusion. No thickening or pneumothorax. Thoracic aorta and great vessels: Normal in diameter. Pulmonary arteries: Normal in caliber. Heart and pericardium: No detectable coronary artery calcifications. Cardiac megaly. Lymph nodes: Calcified mediastinal and bilateral hilar lymph nodes. Mediastinum: Unremarkable. Thoracic spine and chest wall: Unremarkable, with normal thoracic vertebral body heights. Other Lines/Tubes/Devices/Hardware: Left chest wall pacemaker/AICD with leads terminating in the right ventricle, right atrium, and coronary sinus.. Visualized upper abdomen: Scattered splenic and hepatic calcified granulomas. IMPRESSION 1. Pulmonary edema with moderate volume right and trace volume left pleural effusions. Dilated left ventricle. 2. Scattered pulmonary nodular opacities may represent scattered foci of pulmonary edema and/or atelectasis. However, underlying solid, noncalcified pulmonary nodules cannot be excluded. A follow-up CT chest in 3 6 months recommended document. 3. Calcified intrathoracic lymph nodes with calcified pulmonary, hepatic, and splenic granulomas can be seen with prior granulomatous disease. ROS: General: AOX2, pleasant CV: S1,S2, murmur RESP: Good breath sounds ABD: Nontender, bowel sounds present Extremities: multiple bruises to bilateral upper extremities, no edema Assessment and plan: Fever resolved Pneumonia, CT shows scattered pulmonary nodular opacities, Recommend pulmonary consult and follow upCT Procalcitonin 0.06 Blood cultures show Staph coag negative, most likely contamination, repeat cultures 06/01 show no growth to date Levaquin day 01/26 Diabetes mellitus, monitor glycemic control Will continue to monitor Patient discussed with Dr. Brown Azalea Harper LBSW - 06/03/2020 10:40 AM CDTSubjective Patient ID: Enma Cat is a 79 year old male. Referral was submitted to [facility] as no beds were available at [facility]. Awaiting insurance authorization. SRIDHAR Javier Para Operator - Care Management [facility] [phone] [email or web address] of Systems Objective Physical Exam Assessment/Plan [facility] YT Sukhwinder Hughes MD - 06/03/2020 9:57 AM CDT [facility] Hospitalist Progress Note SUBJECTIVE: No acute events overnight. Patient wants to go home. CURRENT MEDICATIONS - reviewed. Current Facility-Administered Medications Medication Dose Route Frequency Last Rate Last Dose levoFLOXacin (LEVAQUIN) tablet 750 mg 750 mg Oral Q48H 750 mg at 06/02/20 1251 bisacodyL (DULCOLAX) suppository 10 mg 10 mg Rectal QHS 10 mg at 06/01/20 2248 Polyethylene Glycol 3350 (MIRALAX) powder 17 g 17 g Oral DAILY 17 g at 06/02/20 0941 sennosides (SENOKOT) tablet 8.6 mg 8.6 mg Oral BID 8.6 mg at 06/03/20 0812 haloperidol lactate (HALDOL) injection 5 mg 5 mg Slow IV Push QHSPRN 5 mg at 05/31/20 2116 acetaminophen (TYLENOL) tablet 650 mg 650 mg Oral Q6HPRN 650 mg at 05/31/20 0554 ascorbic acid (vitamin C) (VITAMIN C) tablet 500 mg 500 mg Oral TID 500 mg at 06/03/20 0812 aspirin chewable tablet 81 mg 81 mg Oral DAILY 81 mg at 06/03/20 0812 atorvastatin (LIPITOR) tablet 40 mg 40 mg Oral QHS 40 mg at 06/02/20 2051 cholecalciferol (vitamin D3) tablet 1,000 Units 1,000 Units Oral BID 1,000 Units at 06/03/20 0812 dextrose 50 % in water (D50W) injection 25 mL 25 mL Slow IV Push PRN docusate (COLACE) capsule 100 mg 100 mg Oral BID 100 mg at 06/03/20 0812 glucagon (GLUCAGEN DIAGNOSTIC KIT) injection 1 mg 1 mg Intramuscular PRN heparin (porcine) injection 5,000 Units 5,000 Units Subcutaneous Q8H 5,000 Units at 06/03/20 0615 metoprolol tartrate (LOPRESSOR) tablet 25 mg 25 mg Oral BID 25 mg at 06/03/20 0812 ondansetron (ZOFRAN (PF)) injection 4 mg 4 mg Slow IV Push Q6HPRN primidone (MYSOLINE) tablet 250 mg 250 mg Oral Q6H 250 mg at 06/03/20 0517 sacubitriL-valsartan (ENTRESTO) 97-103 mg tablet 1 tablet 1 tablet Oral BID 1 tablet at 06/03/20 0818 Sliding Scale Insulin - Aspart (NOVOLOG) + Fsbg Testing Subcutaneous TID MEALS+HS Stopped at06/01/20 1700 sodium ferric gluconate (FERRLECIT) 125 mg in NaCl 0.9% (NS) 100 mL IV piggyback 125 mg IV Piggyback DAILY 125 mg at 06/03/20 0818 zinc sulfate (ORAZINC) capsule 220 mg 220 mg Oral BID 220 mg at 06/03/20 0812 PHYSICAL EXAM: BP (!) 151/83 | Pulse 69 | Temp 36.5 C (97.7 F) (Oral) | Resp 16 | Ht 5' 5" (1.651 m) | Wt 145 lb 8 oz (66 kg) | SpO2 100% | BMI 24.21 kg/m General: No respiratory distress HEENT: Anicteric sclerae, NCAT Lungs: Symmetric expansion Cardio: RRR Musculoskeletal: Normal muscle mass, no synovitis Skin: No rash or lesions Neuro: AAOx3, no focal deficits Psych: Normal affect LABS/IMAGING - reviewed, pertinent results as below: CBC BMP PT/INR WBC x10^3 (/uL) Date Value 01/22/2015 5.1 WBC (10*3/L) Date Value 06/03/2020 2.42 (L) NA Date Value 06/03/2020 136 mmol/L 01/22/2015 136 MMOL/L No results found for: PT RBC x10^6 (/uL) Date Value 01/22/2015 3.65 (L) RBC (10*6/L) Date Value 06/03/2020 2.99 (L) K Date Value 06/03/2020 3.9 mmol/L 01/22/2015 4.8 MMOL/L INR-LC (no units) Date Value 01/16/2014 1.0 INR (no units) Date Value 05/30/2020 1.2 PLT x10^3 (/uL) Date Value 01/22/2015 172 PLT (10*3/L) Date Value 06/03/2020 146 (L) CALCIUM Date Value 06/03/2020 9.4 mg/dL 01/22/2015 9.9 MG/DL HGB Date Value 06/03/2020 9.6 g/dL (L) 01/22/2015 11.6 G/DL (L) CL Date Value 06/03/2020 100 mmol/L 01/22/2015 101 MMOL/L aPTT HCT (%) Date Value 06/03/2020 27.6 (L) 01/22/2015 33.2 (L) BUN Date Value 06/03/2020 37 mg/dL (H) 01/22/2015 23 MG/DL APTT Patient (Seconds) Date Value 03/25/2015 36 CREATININE Date Value 06/03/2020 1.85 mg/dL (H) 01/22/2015 1.37 MG/DL (H) IMAGING- Hospital Encounter on 05/29/20 MOD BARIUM SWALLOW, (DARCY) Narrative EXAM: FL MODIFIED BARIUM SWALLOW HISTORY: aspiration TECHNIQUE: Barium of varying consistencies from thin liquids to solids was administered to the patient during fluoroscopy. The study was performed with the speech pathologists. FINDINGS: The swallow reflex and protective mechanisms are intact. Flash penetration was observed when fed with thin liquids. No penetration or aspiration was seen with nectar thick liquid, puree or jewelry solids. Impression Flash laryngeal penetration on swallowing of thin fluids. Please refer to the speech pathologist's report for further details. CT THORAX WO CONTRAST Narrative PROCEDURE: CT CHEST WITHOUT CONTRAST - CHEST PROTOCOL CLINICAL INDICATION:Acute resp illness, > 40 years old COMPARISON: None TECHNIQUE: Helical CT was performed of the chest (lung apices to bases) using 100 mL Omnipaque-350 nonionic intravenous contrast, without complications. Images were reconstructed at 1.25 mm slice thickness. Axial MIPs and coronal and sagittal MPR images were generated and reviewed. (Display [id number] = 35 cm) FINDINGS: Lower neck/thyroid: Unremarkable. Lungs: Centrilobular septal thickening with groundglass attenuating parenchyma. Left lower lobe calcified granuloma. A 0.4 cm noncalcified, solid pulmonary nodule along the horizontal fissure (10:53), likely a pulmonary lymph node. Spiculated subpleural nodule within the right upper lobe (10:37). A 0.9 cm pulmonary nodule in the right lower lobe (10:66), this may represent a focus of pulmonary edema or atelectasis. Left lower lobe nodular opacities measure 0.7 cm, 0.8 cm and 0.6 cm, also may represent foci of pulmonary edema and/or atelectasis. Central airway: Unremarkable. Pleura: Large volume right pleural effusion. Trace volume left pleural effusion. No thickening or pneumothorax. Thoracic aorta and great vessels: Normal in diameter. Pulmonary arteries: Normal in caliber. Heart and pericardium: No detectable coronary artery calcifications. Cardiac megaly. Lymph nodes: Calcified mediastinal and bilateral hilar lymph nodes. Mediastinum: Unremarkable. Thoracic spine and chest wall: Unremarkable, with normal thoracic vertebral body heights. Other Lines/Tubes/Devices/Hardware: Left chest wall pacemaker/AICD with leads terminating in the right ventricle, right atrium, and coronary sinus.. Visualized upper abdomen: Scattered splenic and hepatic calcified granulomas. Impression 1. Pulmonary edema with moderate volume right and trace volume left pleural effusions. Dilated left ventricle. 2. Scattered pulmonary nodular opacities may represent scattered foci of pulmonary edema and/or atelectasis. However, underlying solid, noncalcified pulmonary nodules cannot be excluded. A follow-up CT chest in 3 6 months recommended document. 3. Calcified intrathoracic lymph nodes with calcified pulmonary, hepatic, and splenic granulomas can be seen with prior granulomatous disease. Preliminary Report Dictated by Resident: Iam Mcguire MD., have reviewed this study and agree with the above report. CT HEAD WO CONTRAST Narrative CT HEAD WO CONTRAST HISTORY: Altered mental status (AMS), unclear cause COMPARISON: None available. TECHNIQUE: Routine unenhanced brain CT. FINDINGS: No acute intracranial hemorrhage, extracerebral fluid collection, midline shift or mass effect. No acute transcortical infarction. Trace intracranial atherosclerosis. Ventricles are normal. Cerebral volume is age appropriate. No depressed calvarial fracture. Visualized orbits are unremarkable. Mucosal thickening of a left posterior ethmoid air cell. Impression No acute intracranial hemorrhage or mass effect. XR CHEST 1 VW Narrative EXAM: XR CHEST 1 VW HISTORY: 79 years-old; Male; ACough, SOB, Wheezing COMPARISON: 03/25/2015 radiograph FINDINGS: Left-sided AICD with leads terminating in right atrium, right ventricle and coronary sinus. Lungs/Pleura: Multifocal airspace and interstitial opacities are noted. There is no pleural effusion or pneumothorax. Heart/Mediastinum: The cardiomediastinal silhouette is enlarged, unchanged. No acute osseous structure abnormality. Impression Multifocal interstitial and airspace opacities are concerning for bronchopneumonia. These findings can also be seen with atypical infectious process, including COVID-19 pneumonia. Disclaimer: Generally, the findings on chest imaging in COVID-19 are not specific, and overlap with other infections, including influenza, H1N1, SARS and MERS. According to the Centers for Disease Control (CDC) and recent statement of the [employer], viral testing remains the only specific method of diagnosis. Confirmation with the viral test is required, even if radiologic findings are suggestive of COVID-[address] Preliminary Report Dictated by Resident: Darvin Crabtree I, Ming Lara MD., have reviewed this study and agree with the above report. ASSESSMENT/PLAN Enma Cat is a 79 year old male with PMH as listed above, admitted to the hospital with: # Acute on chronic systolic CHF # h/o NICMP # NSTEMI, likely type 2 # HTN - CT and CXR showed pulm edema. Change lasix to po. Monitor I/O. Daily weight - entresto, metoprolol - asa, statin - echo showed no new change, EF 40-45%, mitral regurg - cardiology following. Follow with Dr. Arenas as outpt # Sepsis 2/2 Pneumococcal pneumonia with metabolic encephalopathy and COLIN - Discontinued vanc, zosyn x 2d. Switched to po levaquin day 12/27. - ID consulted - [employer] on board - monitor CBC - follow culture # COLIN on CKD 3 # vit D deficiency # iron deficiency - avoid nephrotoxins - nephrology consulted - monitor renal function - lasix dose decreased and changed to po - vit D and iron suppl # DM2 - SSI - A1c 5.4 Dispo: [facility] VTE Prophylaxis: heparin Code Status: Sukhwinder Hughes MD Marya Cross SLP - 06/02/2020 4:13 PM CDT Modified Barium Swallow Speech-Language Pathology Services Enma Cat : 1940 Age: [age] year old Sex: male GUERRERO: 06/02/2020 Time In/Out: [id number] Referring Physician: Rufus Goodwin MD Date of Referral: 05/31/2020 Medical Diagnosis: oropharyngeal dysphagia; feeding difficulty Reason for Referral: r/o aspiration; objectively evaluate the oropharyngeal swallow with imaging; SUBJECTIVE: Patient arrived to radiology in wheelchair. He was much more awake/alert than when seenon Tuesday. He reports that he used to have trouble swallowing when he drank alcohol, but has not hadproblems since abstaining. OBJECTIVE: Enma Cat was seen for modified barium swallow study (MBS). Patient is a 79 year old male with PMH significant for CVA, HTN, DM II, CAD, otherwise as stated below. Pertinent Imaging: Xr Chest 1 Vw Result Date: 05/29/2020 Multifocal interstitial and airspace opacities are concerning for bronchopneumonia. These findings can also be seen with atypical infectious process, including COVID-19 pneumonia. Disclaimer: Generally, the findings on chest imaging in COVID-19 are not specific, and overlap with other infections, including influenza, H1N1, SARS and MERS. According to the Centers for Disease Control (CDC) and recent statement of the [employer], viral testing remains the only specific method of diagnosis. Confirmation with the viral test is required, even if radiologic findings are suggestive of COVID-[address] Preliminary Report Dictated by Resident: Ming Bradley MD., have reviewed this study and agree with the above report. Ct Head Wo Contrast Result Date: 05/29/2020 No acute intracranial hemorrhage or mass effect. Ct Thorax Wo Contrast Result Date: 05/30/2020 1. Pulmonary edema with moderate volume right and trace volume left pleural effusions. Dilated leftventricle. 2. Scattered pulmonary nodular opacities may represent scattered foci of pulmonary edemaand/or atelectasis. However, underlying solid, noncalcified pulmonary nodules cannot be excluded. A follow-up CT chest in 3 6 months recommended document. 3. Calcified intrathoracic lymph nodes with calcified pulmonary, hepatic, and splenic granulomas can be seen with prior granulomatous disease. Preliminary Report Dictated by Resident: Iam Mcguire MD., have reviewed this study and agree with the above report. Previous [employer] Services/Swallow History: Patient seen by this service on 05/30/2020 for bedside evaluation, recommended regular-textured dietwith nectar-thick liquids and swallow precautions: sit fully upright/chair, small single sips/bites,no straws, crush pills and mix with pudding with MD approval and remain upright for 30 minutes aftermeals. 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, on chronic steroid Past Surgical History: Procedure Laterality Date PACEMAKERS General Behavior: Alert and Cooperative Hearing: Within Functional Limits for speech Oral Mechanism: Structure: dentate, moist oral mucosa and clean oral cavity Function: Unremarkable - no facial droop/weakness, no subjective trismus, symmetric labial spread and pucker, lingual protrusion midline with equal lateralization, symmetrical palatal retraction, no dysphonia, no dysarthria, no apraxia Respiratory Status: room air Orientation/Cognition: - Patient oriented to: person and place - Response type: verbal - If verbal, describe speech: slurred - Follows 1-step commands: Yes EVALUATION: Patient presented with barium in thin liquids, nectar-thick liquids, puree and chewable solid consistencies viewed under fluoroscopy in the lateral plane with Dr. Pruitt from radiology. COMPONENTS AND SCORES ORAL IMPAIRMENT Component 1-Lip Closure: 0= No labial escape Component 2-Tongue Control During Bolus Hold: 2= Posterior escape of less than half of bolus Component 3-Bolus Preparation/Mastication: 2= Disorganized chewing/mashing with solid pieces of bolus unchewed Component 4-Bolus Transport/Lingual Motion: 3= Repetitive/disorganized tongue motion Component 5-Oral Residue: 1= Trace residue lining oral structures and Location C= Tongue Component 6-Initiation of Pharyngeal Swallow: 1= Bolus head in valleculae PHARYNGEAL IMPAIRMENT Component 7-Soft Palate Elevation: 0= No bolus between soft palate (SP)/pharyngeal wall (PW) Component 8-Laryngeal Elevation: 1= Partial superior movement of thyroid cartilage/partial approximation of arytenoids to epiglottic petiole Component 9-Anterior Hyoid Excursion: 1= Partial anterior movement Component 10-Epiglottic Movement: 0= Complete inversion Component 11-Laryngeal Vestibular Closure-Height Swallow: 0=Complete; no air/contrast in laryngeal vestibule Component 12-Pharyngeal Stripping Wave: 0= Present - complete Component 13-Pharyngeal Contraction (A/P view only): NA Component 14-Pharyngoesophageal Segment Openin= Complete distension and complete duration; no obstruction of flow Component 15-Tongue Base (TB) Retraction: 1= Trace column of contrast or air between TB and PW Component 16-Pharyngeal Residue: 2= Collection of residue within or on pharyngeal structures, LOCATION A: Tongue Base, LOCATION B: Valleculae and LOCATION E: Pyriform Sinuses ESOPHAGEAL IMPAIRMENT Component 17-Esophageal Clearance Upright Position: 0= Complete clearance; esophageal coating PENETRATION/ASPIRATION thin liquid: Penetration occurred: single event, flash, to the underside of the epiglottis, during the swallow and trace amount. Aspiration did not occur: N/A PAS: 2-enters the airway, remains above vocal folds and is ejected nectar thick liquid: Penetration did not occur: N/A. Aspiration did not occur: N/A PAS: 1-material does not enter airway puree: Penetration did not occur: N/A. Aspiration did not occur: N/A PAS: 1- material does not enter airway chewable solids: Penetration did not occur: N/A. Aspiration did not occur: N/A PAS: 1-material does not enter airway FACILITATIVE TECHNIQUES ATTEMPTED: N/A Images/loops available for review in PACS. Patient/Family Education: Provided verbally. Reviewed MBS loops/images. Discussed findings of evaluation, recommendations and [employer] plan of care. Patient/Family Goal: safe po intake ASSESSMENT: Enma Cat presents with mild oropharyngeal dysphagia in the setting of prior CVA/TIA with primaryimpairment in pharyngeal efficiency. Patient also demonstrated decreased lingual control and manipulation; this resulted in posterior escape of purees and masticated materials before the swallow. Patient also had slowed A/P transit of bolus due to discoordination of lingual motions. Trace oral stasis noted on tongue. Patient initiated swallow at the level of the valleculae, which is not uncommon for patient's age. He tolerated single sips of thin liquids, nectar-thick liquids, purees, and masticatedmaterials with no penetration or aspiration (PAS 1). He had trace, flash penetration of material to the underside of the epiglottis with sequential sips of thin liquids (PAS 2). Patient had decreased tongue-base retraction and bolus propulsion, which resulted in stasis at the valleculae and pyriform sinuses with nectar-thick liquids, purees, and masticated materials. Stasis was reduced, but not elimin ated, with secondary swallow. Patient appears safe to continue PO diet as detailed below. Impressions: mild oropharyngeal dysphagia, pharyngeal stasis, single instance of penetration with sequential sips of thin liquids. Prognosis is good for safe po intake with adherence to swallow precautions due to above findings. PLAN: 1. Recommend patient advance a regular-textured diet with thin liquids and swallow precautions: sit fully upright/chair, remain upright for 30 minutes after meals and use secondary, dry swallo wwith each bite/sip 2. Recommend [employer] therapy 2-5x/wk for 15-45 min/session to address the following goals: Swallowing: - Patient will tolerate the safest, least restricted po diet texture without overt s/sx of aspiration or other negative effects on medical condition: - Patient/family will verbalize swallowing precautions with minimal cues 80% of the time: - Patient will demonstrate adherence to swallowing precautions while eating a meal/snack with minimal cues 80% of the time: Melecio Shaver FNP - 06/02/2020 3:10 PM CDT Subjective: Patient is a 79 year old male who was recently admitted to [facility] with weakness and falls. He was discharged and brought straight to [facility] ED by the family because they felt it was unsafe for him to go home. Patient with altered mental status and weakness, found to have possible pneumonia which I have been consulted for. Patient examined at bedside. More awake and alert. Has been ambulatory around the room. Patient had MBS done this shift. Objective: Vitals: 06/02/20 0600 06/02/20 0828 06/02/20 0847 06/02/20 1200 BP: 135/73 (!) 146/69 122/69 Pulse: 64 (!) 46 68 Resp: Temp: 36.3 C (97.4 F) 36.6 C (97.9 F) TempSrc: Temporal Artery Oral SpO2: 96% 96% 93% 97% Weight: Height: CBC WBC x10^3 (/uL) Date Value 01/22/2015 5.1 WBC (10*3/L) Date Value 06/02/2020 2.31 (L) RBC x10^6 (/uL) Date Value 01/22/2015 3.65 (L) RBC (10*6/L) Date Value 06/02/2020 2.66 (L) PLT x10^3 (/uL) Date Value 01/22/2015 172 PLT (10*3/L) Date Value 06/02/2020 153 HGB Date Value 06/02/2020 8.6 g/dL (L) 01/22/2015 11.6 G/DL (L) HCT (%) Date Value 06/02/2020 24.4 (L) 01/22/2015 33.2 (L) CMP NA Date Value 06/02/2020 133 mmol/L (L) 01/22/2015 136 MMOL/L K Date Value 06/02/2020 3.4 mmol/L (L) 01/22/2015 4.8 MMOL/L CALCIUM Date Value 06/02/2020 9.4 mg/dL 01/22/2015 9.9 MG/DL CL Date Value 06/02/2020 96 mmol/L (L) 01/22/2015 101 MMOL/L BUN Date Value 06/02/2020 34 mg/dL (H) 01/22/2015 23 MG/DL CREATININE Date Value 06/02/2020 1.83 mg/dL (H) 01/22/2015 1.37 MG/DL (H) GLUCOSE Date Value 06/02/2020 135 mg/dL (H) 01/22/2015 95 MG/DL CO2 TOTAL Date Value 06/02/2020 28 mmol/L 01/22/2015 28 MMOL/L ALBUMIN Date Value 06/02/2020 3.1 g/dL (L) 01/22/2015 3.8 G/DL T PROTEIN Date Value 06/02/2020 6.0 g/dL (L) 01/22/2015 6.3 G/DL TOTAL BILI Date Value 06/02/2020 0.4 mg/dL 01/22/2015 0.3 MG/DL ALT(SGPT) (U/L) Date Value 01/28/2016 24 01/22/2015 29 ALTv (U/L) Date Value 06/02/2020 25 AST(SGOT) (U/L) Date Value 06/02/2020 31 01/22/2015 20 ALK PHOS (U/L) Date Value 06/02/2020 52 01/22/[address] chest 05/30: PROCEDURE: CT CHEST WITHOUT CONTRAST - CHEST PROTOCOL CLINICAL INDICATION:Acute resp illness, >40 years old COMPARISON: None TECHNIQUE: Helical CT was performed of the chest (lung apices to bases) using 100 mL Omnipaque-350 nonionic intravenous contrast, without complications. Images were reconstructed at 1.25 mm slice thickness. Axial MIPs and coronal and sagittal MPR images were generated and reviewed. (Display [id number] = 35 cm) FINDINGS: Lower neck/thyroid: Unremarkable. Lungs: Centrilobular septal thickening with groundglass attenuating parenchyma. Left lower lobe calcified granuloma. A 0.4 cm noncalcified, solid pulmonary nodule along the horizontal fissure (10:53), likely a pulmonary lymph node. Spiculated subpleural nodule within the right upper lobe (10:37). A 0.9 cm pulmonary nodule in the right lower lobe (10:66), this may represent a focus of pulmonary edema or atelectasis. Left lower lobe nodular opacities measure 0.7 cm, 0.8 cm and 0.6 cm, also may represent foci of pulmonary edema and/or atelectasis. Central airway: Unremarkable. Pleura: Large volume right pleural effusion. Trace volume left pleural effusion. No thickening or pneumothorax. Thoracic aorta and great vessels: Normal in diameter. Pulmonary arteries: Normal in caliber. Heart and pericardium: No detectable coronary artery calcifications. Cardiac megaly. Lymph nodes: Calcified mediastinal and bilateral hilar lymph nodes. Mediastinum: Unremarkable. Thoracic spine and chest wall: Unremarkable, with normal thoracic vertebral body heights. Other Lines/Tubes/Devices/Hardware: Left chest wall pacemaker/AICD with leads terminating in the right ventricle, right atrium, and coronary sinus.. Visualized upper abdomen: Scattered splenic and hepatic calcified granulomas. IMPRESSION 1. Pulmonary edema with moderate volume right and trace volume left pleural effusions. Dilated left ventricle. 2. Scattered pulmonary nodular opacities may represent scattered foci of pulmonary edema and/or atelectasis. However, underlying solid, noncalcified pulmonary nodules cannot be excluded. A follow-up CT chest in 3 6 months recommended document. 3. Calcified intrathoracic lymph nodes with calcified pulmonary, hepatic, and splenic granulomas can be seen with prior granulomatous disease. ROS: General: AOX4, pleasant CV: S1,S2, murmur RESP: Good breath sounds ABD: Nontender, bowel sounds present Extremities: multiple bruises to bilateral upper extremities, no edema Assessment and plan: Fever resolved Pneumonia, CT shows scattered pulmonary nodular opacities, Recommend pulmonary consult and follow upCT Procalcitonin 0.06 Blood cultures show Staph coag negative, most likely contamination, repeat cultures 06/01 show no growth to date Levaquin day 12/27 Diabetes mellitus, monitor glycemic control Will continue to monitor Patient discussed with Dr. Brown Marya Cross SLP - 06/02/2020 1:52 PM CDTMBS Brief Note 06/02/2020 1350 Patient seen in upright wheelchair. Tolerated thin liquids, nectar-thick liquids, purees, and masticated materials with no penetration or aspiration. Patient did have decreased lingual control resulting in posterior spillage before the swallow. Patient also with stasis of nectar-thick liquids, purees,and masticated materials after the swallow. This stasis reduced, but did not clear, with secondary swallow. Patient appears safe to continue PO diet of thin liquids with regular solids and precautions:sit fully upright/chair when eating or drinking, remain upright for at least 30 minutes after, and use secondary dry swallow with each bite/sip. Full report and recommendations to follow. Marya Garza MS, [facility] Speech-Language Pathologist Phone/Text # [phone] Samson Villalobos PTA - 06/02/2020 11:10 AM CDT 06/02/2020 Physical Therapy Progress Note: Discharge Recommendations: Discharge Recommendations: Therapy Needs and Potential: decline in transfers and decline in gait and/or balance Challenges to Home Transition: increased risk of falls decreased safety awareness Equipment recommendations: rolling walker PAIN: denies pain PRECAUTIONS: Weight Bearing Precaution: NA General Precautions: PPE used:Gloves and Surgical mask, Fall, Massey catheter, IV on L arm Bracing/Cast present or required:N/A S: Patient agreeable to working with PT. Pt says that he is feeling "good" today. He was not able to walk on his L leg yesterday due to pain but says it feels better. O: Patient met Up in chair. Patient seen for the following: Transfers: Sit to stand: Modified independent using Rolling Walker Stand to sit: Modified independent using Rolling Walker Gait: Assisted patient with ambulation as follows: 40 feet using Rolling Walker and CGA and modified independent. Therapeutic exercise: instructed patient in the following: ankle pumps, quad sets, glut sets, hamstring sets, long arc quads, seated marching, heel raises After session, patient Up in chair and call blair provided. A: Patient tolerated session well. Pt's ambulation improved today from intial consult. He still had decreased opal and short step length. Pt was able to perform all new exercises well. P: PT will continue to progress with gait training, functional mobility and exercises to improve overall strength of the patient. Total Timed Tx Codes in Minutes: 22 Min Total Treatment Time in Minutes: 22 Min Samson Villalobos PTA [facility] Lic [id number] [facility] Rehab Services [facility] [phone] Rodo Hartman, LAN Kim, [employer] Marya Cross SLP - 06/02/2020 10:08 AM CDTSpeech-Language Pathology 06/02/2020 1008 Modified Barium Swallow study ordered, to be completed this afternoon at approx 1 pm. Results and recommendations to follow. Marya Garza MS, [facility] Speech-Language Pathologist Phone/Text # [phone] Sukhwinder Sarmiento MD - 06/02/2020 9:57 AM CDT [facility] Hospitalist Progress Note SUBJECTIVE: No acute events overnight. Patient wants to go home. CURRENT MEDICATIONS - reviewed. Current Facility-Administered Medications Medication Dose Route Frequency Last Rate Last Dose bisacodyL (DULCOLAX) suppository 10 mg 10 mg Rectal QHS 10 mg at 06/01/208 Polyethylene Glycol 3350 (MIRALAX) powder 17 g 17 g Oral DAILY 17 g at 06/02/20940 sennosides (SENOKOT) tablet 8.6 mg 8.6 mg Oral BID 8.6 mg at 06/02/20940 ferrous sulfate tablet 325 mg 325 mg Oral BID MEALS 325 mg at 06/02/20940 haloperidol lactate (HALDOL) injection 5 mg 5 mg Slow IV Push QHSPRN 5 mg at 05/31/202115 piperacillin-tazobactam (ZOSYN) 2.25 g/50 mL RTU 2.25 g IV Piggyback Q6H ABX 2.25 g at 06/02/20940 acetaminophen (TYLENOL) tablet 650 mg 650 mg Oral Q6HPRN 650 mg at 05/31/20553 ascorbic acid (vitamin C) (VITAMIN C) tablet 500 mg 500 mg Oral TID 500 mg at 06/02/20940 aspirin chewable tablet 81 mg 81 mg Oral DAILY 81 mg at 06/02/20940 atorvastatin (LIPITOR) tablet 40 mg 40 mg Oral QHS 40 mg at 06/01/202051 cholecalciferol (vitamin D3) tablet 1,000 Units 1,000 Units Oral BID 1,000 Units at 06/02/20940 dextrose 50 % in water (D50W) injection 25 mL 25 mL Slow IV Push PRN docusate (COLACE) capsule 100 mg 100 mg Oral BID 100 mg at 06/01/202051 glucagon (GLUCAGEN DIAGNOSTIC KIT) injection 1 mg 1 mg Intramuscular PRN heparin (porcine) injection 5,000 Units 5,000 Units Subcutaneous Q8H 5,000 Units at 06/02/20638 levoFLOXacin in D5W (LEVAQUIN) 750 mg/150 mL Piggyback 750 mg 750 mg IV Piggyback Q24H ABX 750 mg at 06/02/20 0208 metoprolol tartrate (LOPRESSOR) tablet 25 mg 25 mg Oral BID 25 mg at 06/02/20 0941 ondansetron (ZOFRAN (PF)) injection 4 mg 4 mg Slow IV Push Q6HPRN primidone (MYSOLINE) tablet 250 mg 250 mg Oral Q6H 250 mg at 06/02/20 0535 sacubitriL-valsartan (ENTRESTO) 97-103 mg tablet 1 tablet 1 tablet Oral BID 1 tablet at 06/02/20 0944 Sliding Scale Insulin - Aspart (NOVOLOG) + Fsbg Testing Subcutaneous TID MEALS+HS Stopped at06/01/20 1700 sodium ferric gluconate (FERRLECIT) 125 mg in NaCl 0.9% (NS) 100 mL IV piggyback 125 mg IV Piggyback DAILY 125 mg at 06/02/20 0941 vancomycin (VANCOCIN) 1,000 mg in NaCl 0.9% (NS) 250 mL VIAL-MATE IV piggyback 15 mg/kg IV Piggyback Q24H ABX 1,000 mg at 06/01/20 1209 zinc sulfate (ORAZINC) capsule 220 mg 220 mg Oral BID 220 mg at 06/02/20 0941 PHYSICAL EXAM: BP (!) 146/69 | Pulse (!) 46 | Temp 36.3 C (97.4 F) (Temporal Artery) | Resp 15 | Ht 5' 5" (1.651 m) | Wt 143 lb 4.8 oz (65 kg) | SpO2 93% | BMI 23.85 kg/m General: No respiratory distress HEENT: Anicteric sclerae, NCAT Lungs: Symmetric expansion Cardio: RRR Musculoskeletal: Normal muscle mass, no synovitis Skin: No rash or lesions Neuro: AAOx3, no focal deficits Psych: Normal affect LABS/IMAGING - reviewed, pertinent results as below: CBC BMP PT/INR WBC x10^3 (/uL) Date Value 01/22/2015 5.1 WBC (10*3/L) Date Value 06/02/2020 2.31 (L) NA Date Value 06/02/2020 133 mmol/L (L) 01/22/2015 136 MMOL/L No results found for: PT RBC x10^6 (/uL) Date Value 01/22/2015 3.65 (L) RBC (10*6/L) Date Value 06/02/2020 2.66 (L) K Date Value 06/02/2020 3.4 mmol/L (L) 01/22/2015 4.8 MMOL/L INR-LC (no units) Date Value 01/16/2014 1.0 INR (no units) Date Value 05/30/2020 1.2 PLT x10^3 (/uL) Date Value 01/22/2015 172 PLT (10*3/L) Date Value 06/02/2020 153 CALCIUM Date Value 06/02/2020 9.4 mg/dL 01/22/2015 9.9 MG/DL HGB Date Value 06/02/2020 8.6 g/dL (L) 01/22/2015 11.6 G/DL (L) CL Date Value 06/02/2020 96 mmol/L (L) 01/22/2015 101 MMOL/L aPTT HCT (%) Date Value 06/02/2020 24.4 (L) 01/22/2015 33.2 (L) BUN Date Value 06/02/2020 34 mg/dL (H) 01/22/2015 23 MG/DL APTT Patient (Seconds) Date Value 03/25/2015 36 CREATININE Date Value 06/02/2020 1.83 mg/dL (H) 01/22/2015 1.37 MG/DL (H) IMAGING- Hospital Encounter on 05/29/20 CT THORAX WO CONTRAST Narrative PROCEDURE: CT CHEST WITHOUT CONTRAST - CHEST PROTOCOL CLINICAL INDICATION:Acute resp illness, > 40 years old COMPARISON: None TECHNIQUE: Helical CT was performed of the chest (lung apices to bases) using 100 mL Omnipaque-350 nonionic intravenous contrast, without complications. Images were reconstructed at 1.25 mm slice thickness. Axial MIPs and coronal and sagittal MPR images were generated and reviewed. (Display [id number] = 35 cm) FINDINGS: Lower neck/thyroid: Unremarkable. Lungs: Centrilobular septal thickening with groundglass attenuating parenchyma. Left lower lobe calcified granuloma. A 0.4 cm noncalcified, solid pulmonary nodule along the horizontal fissure (10:53), likely a pulmonary lymph node. Spiculated subpleural nodule within the right upper lobe (10:37). A 0.9 cm pulmonary nodule in the right lower lobe (10:66), this may represent a focus of pulmonary edema or atelectasis. Left lower lobe nodular opacities measure 0.7 cm, 0.8 cm and 0.6 cm, also may represent foci of pulmonary edema and/or atelectasis. Central airway: Unremarkable. Pleura: Large volume right pleural effusion. Trace volume left pleural effusion. No thickening or pneumothorax. Thoracic aorta and great vessels: Normal in diameter. Pulmonary arteries: Normal in caliber. Heart and pericardium: No detectable coronary artery calcifications. Cardiac megaly. Lymph nodes: Calcified mediastinal and bilateral hilar lymph nodes. Mediastinum: Unremarkable. Thoracic spine and chest wall: Unremarkable, with normal thoracic vertebral body heights. Other Lines/Tubes/Devices/Hardware: Left chest wall pacemaker/AICD with leads terminating in the right ventricle, right atrium, and coronary sinus.. Visualized upper abdomen: Scattered splenic and hepatic calcified granulomas. Impression 1. Pulmonary edema with moderate volume right and trace volume left pleural effusions. Dilated left ventricle. 2. Scattered pulmonary nodular opacities may represent scattered foci of pulmonary edema and/or atelectasis. However, underlying solid, noncalcified pulmonary nodules cannot be excluded. A follow-up CT chest in 3 6 months recommended document. 3. Calcified intrathoracic lymph nodes with calcified pulmonary, hepatic, and splenic granulomas can be seen with prior granulomatous disease. Preliminary Report Dictated by Resident: Iam Mcguire MD., have reviewed this study and agree with the above report. CT HEAD WO CONTRAST Narrative CT HEAD WO CONTRAST HISTORY: Altered mental status (AMS), unclear cause COMPARISON: None available. TECHNIQUE: Routine unenhanced brain CT. FINDINGS: No acute intracranial hemorrhage, extracerebral fluid collection, midline shift or mass effect. No acute transcortical infarction. Trace intracranial atherosclerosis. Ventricles are normal. Cerebral volume is age appropriate. No depressed calvarial fracture. Visualized orbits are unremarkable. Mucosal thickening of a left posterior ethmoid air cell. Impression No acute intracranial hemorrhage or mass effect. XR CHEST 1 VW Narrative EXAM: XR CHEST 1 VW HISTORY: 79 years-old; Male; ACough, SOB, Wheezing COMPARISON: 03/25/2015 radiograph FINDINGS: Left-sided AICD with leads terminating in right atrium, right ventricle and coronary sinus. Lungs/Pleura: Multifocal airspace and interstitial opacities are noted. There is no pleural effusion or pneumothorax. Heart/Mediastinum: The cardiomediastinal silhouette is enlarged, unchanged. No acute osseous structure abnormality. Impression Multifocal interstitial and airspace opacities are concerning for bronchopneumonia. These findings can also be seen with atypical infectious process, including COVID-19 pneumonia. Disclaimer: Generally, the findings on chest imaging in COVID-19 are not specific, and overlap with other infections, including influenza, H1N1, SARS and MERS. According to the Centers for Disease Control (CDC) and recent statement of the [employer], viral testing remains the only specific method of diagnosis. Confirmation with the viral test is required, even if radiologic findings are suggestive of COVID-[address] Preliminary Report Dictated by Resident: Darvin Crabtree I, Ming Lara MD., have reviewed this study and agree with the above report. ASSESSMENT/PLAN Enma Cat is a 79 year old male with PMH as listed above, admitted to the hospital with: # Acute on chronic systolic CHF # h/o NICMP # NSTEMI, likely type 2 # HTN - CT and CXR showed pulm edema. Change lasix to po. Monitor I/O. Daily weight - entresto, metoprolol - asa, statin - echo showed no new change, EF 40-45%, mitral regurg - cardiology following. Follow with Dr. Arenas as outpt # sepsis 2/2 Pneumococcal pneumonia with metabolic encephalopathy and COLIN - Discontinued vanc, zosyn x 2d. Switched to po levaquin day 11/26. - ID consulted - speech consulted, and recommended MBS, ordered; watch for aspiration - monitor CBC - follow culture # COLIN on CKD 3 # vit D deficiency # iron deficiency - avoid nephrotoxins - nephrology consulted - monitor renal function - lasix dose decreased and changed to po - vit D and iron suppl # DM2 - SSI - A1c 5.4 Dispo: [facility] VTE Prophylaxis: heparin Code Status: KURT Hughes MD Vanessa Snell MD - 06/02/2020 8:49 AM CDT [facility] Cardiology progress note Date of Service: 06/02/2020 Enma Cat is a 79 years old male hospitalized for pneumonia. Feeling better. Good UOP. Rising Cr. PHYSICAL EXAM Vitals: 06/02/20 0541 06/02/20 0600 06/02/20 0828 06/02/20 0847 BP: 135/73 (!) 146/69 Pulse: 64 (!) 46 Resp: 21 15 Temp: 36.3 C (97.4 F) TempSrc: Temporal Artery SpO2: 96% 96% 93% Weight: 65 kg (143 lb 4.8 oz) Height: General: alert and oriented x 3 (person, place and date/time); no apparent distress HEENT: normocephalic atraumatic Neck: supple, no lymphadenopathy, no bruits, no JVD Lungs: clear to auscultation bilaterally Cardio: S1, S2, normal rate, regular; no murmurs, rubs or gallops Abdomen: non-distended : not examined Rectal: not examined Extremities: no clubbing, cyanosis, or edema Skin: no rashes Neuro: no focal deficits Medications: I have reviewed the patient's medications; see Medication Reconciliation. Labs: I have reviewed the patient's labs. ASSESSMENT AND PLAN Principal Problem: Dyspnea Active Problems: HLD (hyperlipidemia) Essential hypertension, benign Acute on chronic diastolic congestive heart failure Pneumonia due to infectious organism Elevated troponin I level Stage 3 chronic kidney disease Sepsis/multifoal pneumonia/toxic metabolic encephalopathy: As per primary team. Improving. Elevated trop: Troponin trending down. Likely Type 2 NC in the HF and sepsis, demand ischemia. Continue ASA/lipitor/metoprolol. Nonischemic cardiomyopathy/Acute on chronic systolic/diastolic HF: Significantly elevated NT pro BNPnoted. Echo reviewed. Continue home dose of Lopressor 25 mg BiD, Entresto 97/103 mg BiD. Given rising Cr, will hold lasix for now. Will watch for adjustment. Dyslipidemia: on lipitor 40 mg daily. COLIN on CKD3: will monitor. Vanessa Sanders MD, FACC, [facility] Client Experience Consultant, Division of Cardiology [facility] Josh Woods, DO - 06/02/2020 8:11 AM CDT Nephrology Progress Note Admit Date: 05/29/2020 CPS improving without CP or SOB. +GUERRERO +Cough Mild confusion improving. No acute events overnight. Temp: [36.1 C (97 F)-36.6 C (97.9 F)] Heart Rate (monitor): [63-67] Pulse: [46-74] Resp: [11-22] BP: (122-146)/(59-81) MAP (mmHg): [77-95] Vitals and medications reviewed in the chart. Blood work and imaging reviewed in the chart. Gen: NAD HEENT: NCAT. MMM. Neck: Supple. No LAD. Lungs: Diminished bases CVS: RRR Abd: Soft. NT. +BS Ext: No C/C. LE Edema none. Skin: No rash Psych: AA Neuro: Normal speech ASSESSMENT/PLAN Enma Cat is a 79 year old male admitted to the hospital with: The primary encounter diagnosis was Acute on chronic heart failure, unspecified heart failure type. Diagnoses of Fatigue, unspecified type, Chronic anemia, NSTEMI (non-ST elevated myocardial infarction), Chronic obstructive pulmonary disease, unspecified COPD type, Essential hypertension, Acute respiratory distress, and Pneumonia of both lungs due to infectious organism, unspecified part of lung werealso pertinent to this visit. A/ COLIN, worse. Hyponatremia Hypokalemia CKD III with proteinuria HTN with CKD/ CHF Systolic CHF, A/C. DM II with CKD Anemia in chronic illness Iron deficiency Sepsis with PNA P/ Continue current POC and Medications other than the changes below. Replete potassium. Continue retacrit. Continue abx. Encourage nutrition. No NSAIDs. AM labs. Daily weight. 06/02/20 0541 Weight: 65 kg (143 lb 4.8 oz) Height: Vitals: 06/02/20 0847 06/02/20 1200 06/02/20 1529 06/02/202018 BP: 122/69 122/81 124/63 Pulse: 68 74 70 Resp: 22 12 12 Temp: 36.6 C (97.9 F) 36.5 C (97.7 F) 36.4 C (97.6 F) TempSrc: Oral Oral Axillary SpO2: 93% 97% 95% Weight: Height: Intake/Output Summary (Last 24 hours) at 06/02/20202000 Last data filed at 06/02/2020 1200 Gross per 24 hour Intake 740 ml Output 1550 ml Net -810 ml Hospital Encounter on 05/29/20 MOD BARIUM SWALLOW, (DARCY) Narrative EXAM: FL MODIFIED BARIUM SWALLOW HISTORY: aspiration TECHNIQUE: Barium of varying consistencies from thin liquids to solids was administered to the patient during fluoroscopy. The study was performed with the speech pathologists. FINDINGS: The swallow reflex and protective mechanisms are intact. Flash penetration was observed when fed with thin liquids. No penetration or aspiration was seen with nectar thick liquid, puree or jewelry solids. Impression Flash laryngeal penetration on swallowing of thin fluids. Please refer to the speech pathologist's report for further details. CT THORAX WO CONTRAST Narrative PROCEDURE: CT CHEST WITHOUT CONTRAST - CHEST PROTOCOL CLINICAL INDICATION:Acute resp illness, > 40 years old COMPARISON: None TECHNIQUE: Helical CT was performed of the chest (lung apices to bases) using 100 mL Omnipaque-350 nonionic intravenous contrast, without complications. Images were reconstructed at 1.25 mm slice thickness. Axial MIPs and coronal and sagittal MPR images were generated and reviewed. (Display [id number]-hu-[id number] = 35 cm) FINDINGS: Lower neck/thyroid: Unremarkable. Lungs: Centrilobular septal thickening with groundglass attenuating parenchyma. Left lower lobe calcified granuloma. A 0.4 cm noncalcified, solid pulmonary nodule along the horizontal fissure (10:53), likely a pulmonary lymph node. Spiculated subpleural nodule within the right upper lobe (10:37). A 0.9 cm pulmonary nodule in the right lower lobe (10:66), this may represent a focus of pulmonary edema or atelectasis. Left lower lobe nodular opacities measure 0.7 cm, 0.8 cm and 0.6 cm, also may represent foci of pulmonary edema and/or atelectasis. Central airway: Unremarkable. Pleura: Large volume right pleural effusion. Trace volume left pleural effusion. No thickening or pneumothorax. Thoracic aorta and great vessels: Normal in diameter. Pulmonary arteries: Normal in caliber. Heart and pericardium: No detectable coronary artery calcifications. Cardiac megaly. Lymph nodes: Calcified mediastinal and bilateral hilar lymph nodes. Mediastinum: Unremarkable. Thoracic spine and chest wall: Unremarkable, with normal thoracic vertebral body heights. Other Lines/Tubes/Devices/Hardware: Left chest wall pacemaker/AICD with leads terminating in the right ventricle, right atrium, and coronary sinus.. Visualized upper abdomen: Scattered splenic and hepatic calcified granulomas. Impression 1. Pulmonary edema with moderate volume right and trace volume left pleural effusions. Dilated left ventricle. 2. Scattered pulmonary nodular opacities may represent scattered foci of pulmonary edema and/or atelectasis. However, underlying solid, noncalcified pulmonary nodules cannot be excluded. A follow-up CT chest in 3 6 months recommended document. 3. Calcified intrathoracic lymph nodes with calcified pulmonary, hepatic, and splenic granulomas can be seen with prior granulomatous disease. Preliminary Report Dictated by Resident: Iam Mcguire MD., have reviewed this study and agree with the above report. CT HEAD WO CONTRAST Narrative CT HEAD WO CONTRAST HISTORY: Altered mental status (AMS), unclear cause COMPARISON: None available. TECHNIQUE: Routine unenhanced brain CT. FINDINGS: No acute intracranial hemorrhage, extracerebral fluid collection, midline shift or mass effect. No acute transcortical infarction. Trace intracranial atherosclerosis. Ventricles are normal. Cerebral volume is age appropriate. No depressed calvarial fracture. Visualized orbits are unremarkable. Mucosal thickening of a left posterior ethmoid air cell. Impression No acute intracranial hemorrhage or mass effect. XR CHEST 1 VW Narrative EXAM: XR CHEST 1 VW HISTORY: 79 years-old; Male; ACough, SOB, Wheezing COMPARISON: 03/25/2015 radiograph FINDINGS: Left-sided AICD with leads terminating in right atrium, right ventricle and coronary sinus. Lungs/Pleura: Multifocal airspace and interstitial opacities are noted. There is no pleural effusion or pneumothorax. Heart/Mediastinum: The cardiomediastinal silhouette is enlarged, unchanged. No acute osseous structure abnormality. Impression Multifocal interstitial and airspace opacities are concerning for bronchopneumonia. These findings can also be seen with atypical infectious process, including COVID-19 pneumonia. Disclaimer: Generally, the findings on chest imaging in COVID-19 are not specific, and overlap with other infections, including influenza, H1N1, SARS and MERS. According to the Centers for Disease Control (CDC) and recent statement of the [place], viral testing remains the only specific method of diagnosis. Confirmation with the viral test is required, even if radiologic findings are suggestive of COVID-[address] Preliminary Report Dictated by Resident: Darvin Crabtree I, Ming Lara MD., have reviewed this study and agree with the above report. Recent Results (from the past 48 hour(s)) COMP. METABOLIC PANEL (23717) Collection Time: 06/01/20 5:14 AM Result Value Ref Range NA 136 135 - 145 mmol/L K 3.9 3.5 - 5.0 mmol/L CL 97 (L) 98 - 108 mmol/L CO2 TOTAL 30 23 - 31 mmol/L AGAP 9 2 - 16 BUN 34 (H) 7 - 23 mg/dL GLUCOSE 112 (H) 70 - 110 mg/dL CREATININE 1.81 (H) 0.60 - 1.25 mg/dL TOTAL BILI 0.5 0.1 - 1.1 mg/dL CALCIUM 9.5 8.6 - 10.6 mg/dL T PROTEIN 6.2 (L) 6.3 - 8.2 g/dL ALBUMIN 3.2 (L) 3.5 - 5.0 g/dL ALK PHOS 58 34 - 122 U/L ALTv 32 5 - 50 U/L AST(SGOT) 38 13 - 40 U/L eGFR Calculation (Non-) 36.5 mL/min/1.73m2 eGFR Calculation () 44.3 mL/min/1.73m2 MAGNESIUM Collection Time: 06/01/20 5:14 AM Result Value Ref Range MAGNESIUM 2.0 1.7 - 2.4 mg/dL CBC WITH DIFF Collection Time: 06/01/20 5:14 AM Result Value Ref Range WBC 3.23 (L) 4.20 - 10.70 10*3/L RBC 2.75 (L) 4.26 - 5.52 10*6/L HGB 8.9 (L) 12.2 - 16.4 g/dL HCT 25.3 (L) 38.4 - 49.3 % MCV 92.0 81.7 - 95.6 fL MCH 32.4 26.1 - 32.7 pg MCHC 35.2 (H) 31.2 - 35.0 g/dL RDW-SD 46.0 38.5 - 51.6 fL RDW-CV 13.8 12.1 - 15.4 % PLT 131 (L) 150 - 328 10*3/L MPV 10.3 9.8 - 13.0 fL NRBC/100 WBC 0.0 0.0 - 10.0 /100 WBCs NRBC x10^3 <0.01 10*3/L GRAN MAT (NEUT) % 71.9 % IMM GRAN % 0.30 % LYMPH % 8.0 % MONO % 10.5 % EOS % 8.4 % BASO % 0.9 % GRAN MAT x10^3(ANC) 2.32 1.99 - 6.95 10*3/uL IMM GRAN x10^3 <0.03 0.00 - 0.06 10*3/uL LYMPH x10^3 0.26 (L) 1.09 - 3.23 10*3/uL MONO x10^3 0.34 (L) 0.36 - 1.02 10*3/uL EOS x10^3 0.27 0.06 - 0.53 10*3/uL BASO x10^3 0.03 0.01 - 0.09 10*3/uL N-TERMINAL PRO-BNP Collection Time: 06/01/20 5:14 AM Result Value Ref Range NT-proBNP 32,400 (H) <=450 pg/mL ACUTE CARE VENOUS BLOOD GAS Collection Time: 06/01/20 5:14 AM Result Value Ref Range PH 7.40 7.32 - 7.42 PCO2 GIFTY 46 41 - 51 mmHg PO2 GIFTY 39 25 - 40 mmHg HCO3 GIFTY 28 24 - 28 mEq/L AC VBE(BEAKER) 2.2 mEq/L POCT GLUCOSE (AUTOMATED) Collection Time: 06/01/20 8:18 AM Result Value Ref Range POCT GLU 109 70 - 110 mg/dL BLOOD CULTURE SCREEN Collection Time: 06/01/20 10:29 AM Specimen: ARM, RIGHT; Blood Result Value Ref Range Blood Culture-Aerobic No growth at 24 hours No growth Blood Culture-Anaerobic No growth at 24 hours No growth BLOOD CULTURE SCREEN Collection Time: 06/01/20 10:42 AM Specimen: ARM, LEFT; Blood Result Value Ref Range Blood Culture-Aerobic No growth at 24 hours No growth Blood Culture-Anaerobic No growth at 24 hours No growth POCT GLUCOSE (AUTOMATED) Collection Time: 06/01/20 12:00 PM Result Value Ref Range POCT GLU 184 (H) 70 - 110 mg/dL POCT GLUCOSE (AUTOMATED) Collection Time: 06/01/20 4:51 PM Result Value Ref Range POCT GLU 101 70 - 110 mg/dL COMP. METABOLIC PANEL (63273) Collection Time: 06/02/20 5:40 AM Result Value Ref Range NA 133 (L) 135 - 145 mmol/L K 3.4 (L) 3.5 - 5.0 mmol/L CL 96 (L) 98 - 108 mmol/L CO2 TOTAL 28 23 - 31 mmol/L AGAP 9 2 - 16 BUN 34 (H) 7 - 23 mg/dL GLUCOSE 135 (H) 70 - 110 mg/dL CREATININE 1.83 (H) 0.60 - 1.25 mg/dL TOTAL BILI 0.4 0.1 - 1.1 mg/dL CALCIUM 9.4 8.6 - 10.6 mg/dL T PROTEIN 6.0 (L) 6.3 - 8.2 g/dL ALBUMIN 3.1 (L) 3.5 - 5.0 g/dL ALK PHOS 52 34 - 122 U/L ALTv 25 5 - 50 U/L AST(SGOT) 31 13 - 40 U/L eGFR Calculation (Non-) 36.1 mL/min/1.73m2 eGFR Calculation () 43.7 mL/min/1.73m2 MAGNESIUM Collection Time: 06/02/20 5:40 AM Result Value Ref Range MAGNESIUM 1.8 1.7 - 2.4 mg/dL CBC WITH DIFF Collection Time: 06/02/20 5:40 AM Result Value Ref Range WBC 2.31 (L) 4.20 - 10.70 10*3/L RBC 2.66 (L) 4.26 - 5.52 10*6/L HGB 8.6 (L) 12.2 - 16.4 g/dL HCT 24.4 (L) 38.4 - 49.3 % MCV 91.7 81.7 - 95.6 fL MCH 32.3 26.1 - 32.7 pg MCHC 35.2 (H) 31.2 - 35.0 g/dL RDW-SD 46.7 38.5 - 51.6 fL RDW-CV 13.9 12.1 - 15.4 % PLT 153 150 - 328 10*3/L MPV 10.4 9.8 - 13.0 fL NRBC/100 WBC 0.0 0.0 - 10.0 /100 WBCs NRBC x10^3 <0.01 10*3/L GRAN MAT (NEUT) % 58.9 % IMM GRAN % 0.40 % LYMPH % 11.3 % MONO % 10.8 % EOS % 17.3 % BASO % 1.3 % GRAN MAT x10^3(ANC) 1.36 (L) 1.99 - 6.95 10*3/uL IMM GRAN x10^3 <0.03 0.00 - 0.06 10*3/uL LYMPH x10^3 0.26 (L) 1.09 - 3.23 10*3/uL MONO x10^3 0.25 (L) 0.36 - 1.02 10*3/uL EOS x10^3 0.40 0.06 - 0.53 10*3/uL BASO x10^3 0.03 0.01 - 0.09 10*3/uL POCT GLUCOSE (AUTOMATED) Collection Time: 06/02/20 8:26 AM Result Value Ref Range POCT GLU 105 70 - 110 mg/dL POCT GLUCOSE (AUTOMATED) Collection Time: 06/02/20 11:59 AM Result Value Ref Range POCT GLU 159 (H) 70 - 110 mg/dL POCT GLUCOSE (AUTOMATED) Collection Time: 06/02/20 4:22 PM Result Value Ref Range POCT GLU 129 (H) 70 - 110 mg/dL Current Facility-Administered Medications Medication Dose Route Frequency Last Rate Last Dose KCL (KLOR-CON M20) tablet 20 mEq 20 mEq Oral ONCE NOW levoFLOXacin (LEVAQUIN) tablet 750 mg 750 mg Oral Q48H 750 mg at 06/02/20 1251 bisacodyL (DULCOLAX) suppository 10 mg 10 mg Rectal QHS 10 mg at 06/01/20 5358 Polyethylene Glycol 3350 (MIRALAX) powder 17 g 17 g Oral DAILY 17 g at 06/02/20 0941 sennosides (SENOKOT) tablet 8.6 mg 8.6 mg Oral BID 8.6 mg at 06/02/20 0941 haloperidol lactate (HALDOL) injection 5 mg 5 mg Slow IV Push QHSPRN 5 mg at 05/31/20 2116 acetaminophen (TYLENOL) tablet 650 mg 650 mg Oral Q6HPRN 650 mg at 05/31/20 0554 ascorbic acid (vitamin C) (VITAMIN C) tablet 500 mg 500 mg Oral TID 500 mg at 06/02/20 1251 aspirin chewable tablet 81 mg 81 mg Oral DAILY 81 mg at 06/02/20 09 atorvastatin (LIPITOR) tablet 40 mg 40 mg Oral QHS 40 mg at 06/01/202051 cholecalciferol (vitamin D3) tablet 1,000 Units 1,000 Units Oral BID 1,000 Units at 06/02/20940 dextrose 50 % in water (D50W) injection 25 mL 25 mL Slow IV Push PRN docusate (COLACE) capsule 100 mg 100 mg Oral BID Stopped at 06/02/20 0800 glucagon (GLUCAGEN DIAGNOSTIC KIT) injection 1 mg 1 mg Intramuscular PRN heparin (porcine) injection 5,000 Units 5,000 Units Subcutaneous Q8H 5,000 Units at 06/02/20 1251 metoprolol tartrate (LOPRESSOR) tablet 25 mg 25 mg Oral BID 25 mg at 06/02/20 09 ondansetron (ZOFRAN (PF)) injection 4 mg 4 mg Slow IV Push Q6HPRN primidone (MYSOLINE) tablet 250 mg 250 mg Oral Q6H 250 mg at 06/02/20 1659 sacubitriL-valsartan (ENTRESTO) 97-103 mg tablet 1 tablet 1 tablet Oral BID 1 tablet at 06/02/20 0944 Sliding Scale Insulin - Aspart (NOVOLOG) + Fsbg Testing Subcutaneous TID MEALS+HS Stopped at06/01/20 1700 sodium ferric gluconate (FERRLECIT) 125 mg in NaCl 0.9% (NS) 100 mL IV piggyback 125 mg IV Piggyback DAILY 125 mg at 06/02/20 0941 zinc sulfate (ORAZINC) capsule 220 mg 220 mg Oral BID 220 mg at 06/02/20 0941 Rufus Lipscomb MD - 06/01/2020 7:08 PM CDT Hospital Medicine Progress Note Name: Enma Cat : 1940 Admit Date: 05/29/2020 PCP on file: Pia Jose ASSESSMENT: Enma Cat is a 79 year old male with PLAN: # AMS, acute toxic metabolic encephalopathy, etiology unclear. Possibly due to infection/PNA/bacteremia and/or CHF decompendation - slightly better, 1:1 obs - other management as below # acute on chronic systolic CHF # h/o NICMP # NSTEMI, likely type 2 # HTN - CT and CXR showed pulm edema. Change lasix to po. Monitor I/O. Daily weight - entresto, metoprolol - asa, statin - echo showed no new change, EF 40-45%, mitral regurg - cardiology following. Follow with Dr. Arenas as outpt # sepsis with acute encephalopathy and COLIN # possible multifocal PNA # GPC bacteremia # positive strep pneumo antigen # mild pancytopenia - procal WNL; covid neg - on empiric abx, vanco day 3, levaquin day 4, zosyn day 2 - ID consulted - speech consulted, and recommended MBS, ordered; watch for aspiration - monitor CBC - follow culture # COLIN on CKD 3 # anemia # vit D deficiency # iron deficiency - avoid nephrotoxins - nephrology consulted - monitor renal function - lasix dose decreased and changed to po - vit D and iron suppl # DM2 - SSI - A1c 5.4 Dispo: home once medically cleared VTE Prophylaxis: heparin Code Status: [facility] [place] DIETARY WORKER was verified during stay Electronically signed by: Rufus Goodwin MD SUBJECTIVE/ 24-HOUR HOSPITAL EVENTS: 05/30: presented overnight for AMS and fever. Remains confused. 05/31: seems improved. Slightly confused. 06/01: no acute event. Intermittently agitated. OBJECTIVE: Vital signs range: Temp: [36.1 C (97 F)-36.7 C (98 F)] 36.4 C (97.6 F) Pulse: [64-89] 66 Resp: [11-20] 16 BP: (97-151)/(38-105) 129/75 Most recent vital signs: BP 129/75 | Pulse 66 | Temp 36.4 C (97.6 F) (Temporal Artery) | Resp 16 | Ht 5' 5" (1.651 m) | Wt 143 lb 4.8 oz (65 kg) | SpO2 99% | BMI 23.85 kg/m I/O: I/O last 3 completed shifts: In: 600 [Oral:250; I.V.:350] Out: 1670 [Urine:1670] PHYSICAL EXAM: General: mildly confused HEENT: pupils equal, round, reactive to light; extraocular movements intact; oropharynx clear; moistmucous membranes Neck: supple, no lymphadenopathy, no bruits, no JVD Lungs: clear to auscultation bilaterally Cardio: S1, S2 normal; III/ systolic murmur; no rubs or gallops Abdomen: soft; non-tender; non-distended; normoactive bowel sounds Extremities: no clubbing, cyanosis, or edema Skin: no rashes LABS: I reviewed all the relevant patient's new lab test results Recent Results (from the past 24 hour(s)) POCT GLUCOSE (AUTOMATED) Collection Time: 05/31/20 7:42 PM Result Value Ref Range POCT GLU 124 (H) 70 - 110 mg/dL COMP. METABOLIC PANEL (09223) Collection Time: 06/01/20 5:14 AM Result Value Ref Range NA 136 135 - 145 mmol/L K 3.9 3.5 - 5.0 mmol/L CL 97 (L) 98 - 108 mmol/L CO2 TOTAL 30 23 - 31 mmol/L AGAP 9 2 - 16 BUN 34 (H) 7 - 23 mg/dL GLUCOSE 112 (H) 70 - 110 mg/dL CREATININE 1.81 (H) 0.60 - 1.25 mg/dL TOTAL BILI 0.5 0.1 - 1.1 mg/dL CALCIUM 9.5 8.6 - 10.6 mg/dL T PROTEIN 6.2 (L) 6.3 - 8.2 g/dL ALBUMIN 3.2 (L) 3.5 - 5.0 g/dL ALK PHOS 58 34 - 122 U/L ALTv 32 5 - 50 U/L AST(SGOT) 38 13 - 40 U/L eGFR Calculation (Non-) 36.5 mL/min/1.73m2 eGFR Calculation () 44.3 mL/min/1.73m2 MAGNESIUM Collection Time: 06/01/20 5:14 AM Result Value Ref Range MAGNESIUM 2.0 1.7 - 2.4 mg/dL CBC WITH DIFF Collection Time: 06/01/20 5:14 AM Result Value Ref Range WBC 3.23 (L) 4.20 - 10.70 10*3/L RBC 2.75 (L) 4.26 - 5.52 10*6/L HGB 8.9 (L) 12.2 - 16.4 g/dL HCT 25.3 (L) 38.4 - 49.3 % MCV 92.0 81.7 - 95.6 fL MCH 32.4 26.1 - 32.7 pg MCHC 35.2 (H) 31.2 - 35.0 g/dL RDW-SD 46.0 38.5 - 51.6 fL RDW-CV 13.8 12.1 - 15.4 % PLT 131 (L) 150 - 328 10*3/L MPV 10.3 9.8 - 13.0 fL NRBC/100 WBC 0.0 0.0 - 10.0 /100 WBCs NRBC x10^3 <0.01 10*3/L GRAN MAT (NEUT) % 71.9 % IMM GRAN % 0.30 % LYMPH % 8.0 % MONO % 10.5 % EOS % 8.4 % BASO % 0.9 % GRAN MAT x10^3(ANC) 2.32 1.99 - 6.95 10*3/uL IMM GRAN x10^3 <0.03 0.00 - 0.06 10*3/uL LYMPH x10^3 0.26 (L) 1.09 - 3.23 10*3/uL MONO x10^3 0.34 (L) 0.36 - 1.02 10*3/uL EOS x10^3 0.27 0.06 - 0.53 10*3/uL BASO x10^3 0.03 0.01 - 0.09 10*3/uL N-TERMINAL PRO-BNP Collection Time: 06/01/20 5:14 AM Result Value Ref Range NT-proBNP 32,400 (H) <=450 pg/mL ACUTE CARE VENOUS BLOOD GAS Collection Time: 06/01/20 5:14 AM Result Value Ref Range PH 7.40 7.32 - 7.42 PCO2 GIFTY 46 41 - 51 mmHg PO2 GIFTY 39 25 - 40 mmHg HCO3 GIFTY 28 24 - 28 mEq/L AC VBE(BEAKER) 2.2 mEq/L POCT GLUCOSE (AUTOMATED) Collection Time: 06/01/20 8:18 AM Result Value Ref Range POCT GLU 109 70 - 110 mg/dL BLOOD CULTURE SCREEN Collection Time: 06/01/20 10:29 AM Specimen: ARM, RIGHT; Blood Result Value Ref Range Blood Culture-Aerobic Culture In Progress No growth Blood Culture-Anaerobic Culture In Progress No growth BLOOD CULTURE SCREEN Collection Time: 06/01/20 10:42 AM Specimen: ARM, LEFT; Blood Result Value Ref Range Blood Culture-Aerobic Culture In Progress No growth Blood Culture-Anaerobic Culture In Progress No growth POCT GLUCOSE (AUTOMATED) Collection Time: 06/01/20 12:00 PM Result Value Ref Range POCT GLU 184 (H) 70 - 110 mg/dL POCT GLUCOSE (AUTOMATED) Collection Time: 06/01/20 4:51 PM Result Value Ref Range POCT GLU 101 70 - 110 mg/dL IMAGING: I reviewed all the relevant patient's new radiology test results Hospital Encounter on 05/29/20 CT THORAX WO CONTRAST Narrative PROCEDURE: CT CHEST WITHOUT CONTRAST - CHEST PROTOCOL CLINICAL INDICATION:Acute resp illness, > 40 years old COMPARISON: None TECHNIQUE: Helical CT was performed of the chest (lung apices to bases) using 100 mL Omnipaque-350 nonionic intravenous contrast, without complications. Images were reconstructed at 1.25 mm slice thickness. Axial MIPs and coronal and sagittal MPR images were generated and reviewed. (Display [id number] = 35 cm) FINDINGS: Lower neck/thyroid: Unremarkable. Lungs: Centrilobular septal thickening with groundglass attenuating parenchyma. Left lower lobe calcified granuloma. A 0.4 cm noncalcified, solid pulmonary nodule along the horizontal fissure (10:53), likely a pulmonary lymph node. Spiculated subpleural nodule within the right upper lobe (10:37). A 0.9 cm pulmonary nodule in the right lower lobe (10:66), this may represent a focus of pulmonary edema or atelectasis. Left lower lobe nodular opacities measure 0.7 cm, 0.8 cm and 0.6 cm, also may represent foci of pulmonary edema and/or atelectasis. Central airway: Unremarkable. Pleura: Large volume right pleural effusion. Trace volume left pleural effusion. No thickening or pneumothorax. Thoracic aorta and great vessels: Normal in diameter. Pulmonary arteries: Normal in caliber. Heart and pericardium: No detectable coronary artery calcifications. Cardiac megaly. Lymph nodes: Calcified mediastinal and bilateral hilar lymph nodes. Mediastinum: Unremarkable. Thoracic spine and chest wall: Unremarkable, with normal thoracic vertebral body heights. Other Lines/Tubes/Devices/Hardware: Left chest wall pacemaker/AICD with leads terminating in the right ventricle, right atrium, and coronary sinus.. Visualized upper abdomen: Scattered splenic and hepatic calcified granulomas. Impression 1. Pulmonary edema with moderate volume right and trace volume left pleural effusions. Dilated left ventricle. 2. Scattered pulmonary nodular opacities may represent scattered foci of pulmonary edema and/or atelectasis. However, underlying solid, noncalcified pulmonary nodules cannot be excluded. A follow-up CT chest in 3 6 months recommended document. 3. Calcified intrathoracic lymph nodes with calcified pulmonary, hepatic, and splenic granulomas can be seen with prior granulomatous disease. Preliminary Report Dictated by Resident: Leonora Gillespie I, Iam Givens MD., have reviewed this study and agree with the above report. CT HEAD WO CONTRAST Narrative CT HEAD WO CONTRAST HISTORY: Altered mental status (AMS), unclear cause COMPARISON: None available. TECHNIQUE: Routine unenhanced brain CT. FINDINGS: No acute intracranial hemorrhage, extracerebral fluid collection, midline shift or mass effect. No acute transcortical infarction. Trace intracranial atherosclerosis. Ventricles are normal. Cerebral volume is age appropriate. No depressed calvarial fracture. Visualized orbits are unremarkable. Mucosal thickening of a left posterior ethmoid air cell. Impression No acute intracranial hemorrhage or mass effect. XR CHEST 1 VW Narrative EXAM: XR CHEST 1 VW HISTORY: 79 years-old; Male; ACough, SOB, Wheezing COMPARISON: 03/25/2015 radiograph FINDINGS: Left-sided AICD with leads terminating in right atrium, right ventricle and coronary sinus. Lungs/Pleura: Multifocal airspace and interstitial opacities are noted. There is no pleural effusion or pneumothorax. Heart/Mediastinum: The cardiomediastinal silhouette is enlarged, unchanged. No acute osseous structure abnormality. Impression Multifocal interstitial and airspace opacities are concerning for bronchopneumonia. These findings can also be seen with atypical infectious process, including COVID-19 pneumonia. Disclaimer: Generally, the findings on chest imaging in COVID-19 are not specific, and overlap with other infections, including influenza, H1N1, SARS and MERS. According to the Centers for Disease Control (CDC) and recent statement of the [employer], viral testing remains the only specific method of diagnosis. Confirmation with the viral test is required, even if radiologic findings are suggestive of COVID-[address] Preliminary Report Dictated by Resident: Darvin Crabtree I, Ming Lara MD., have reviewed this study and agree with the above report. MEDICATIONS: I reviewed the current inpatient medications ordered Current Facility-Administered Medications Medication Dose Route Frequency Last Rate Last Dose [START ON 06/02/2020] furosemide (LASIX) tablet 40 mg 40 mg Oral DAILY ferrous sulfate tablet 325 mg 325 mg Oral BID MEALS 325 mg at 06/01/20 1756 haloperidol lactate (HALDOL) injection 5 mg 5 mg Slow IV Push QHSPRN 5 mg at 05/31/20 2116 piperacillin-tazobactam (ZOSYN) 2.25 g/50 mL RTU 2.25 g IV Piggyback Q6H ABX 2.25 g at 06/01/20 1459 acetaminophen (TYLENOL) tablet 650 mg 650 mg Oral Q6HPRN 650 mg at 05/31/20 0554 ascorbic acid (vitamin C) (VITAMIN C) tablet 500 mg 500 mg Oral TID 500 mg at 06/01/20 1457 aspirin chewable tablet 81 mg 81 mg Oral DAILY 81 mg at 06/01/20 0846 atorvastatin (LIPITOR) tablet 40 mg 40 mg Oral QHS 40 mg at 05/31/20 2023 cholecalciferol (vitamin D3) tablet 1,000 Units 1,000 Units Oral BID 1,000 Units at 06/01/20 0847 dextrose 50 % in water (D50W) injection 25 mL 25 mL Slow IV Push PRN docusate (COLACE) capsule 100 mg 100 mg Oral BID 100 mg at 06/01/20 0847 glucagon (GLUCAGEN DIAGNOSTIC KIT) injection 1 mg 1 mg Intramuscular PRN heparin (porcine) injection 5,000 Units 5,000 Units Subcutaneous Q8H 5,000 Units at 06/01/20 1457 levoFLOXacin in D5W (LEVAQUIN) 750 mg/150 mL Piggyback 750 mg 750 mg IV Piggyback Q24H ABX 750 mg at 06/01/20 0135 metoprolol tartrate (LOPRESSOR) tablet 25 mg 25 mg Oral BID 25 mg at 06/01/20 0847 ondansetron (ZOFRAN (PF)) injection 4 mg 4 mg Slow IV Push Q6HPRN primidone (MYSOLINE) tablet 250 mg 250 mg Oral Q6H 250 mg at 06/01/20 1756 sacubitriL-valsartan (ENTRESTO) 97-103 mg tablet 1 tablet 1 tablet Oral BID 1 tablet at 06/01/20 0845 Sliding Scale Insulin - Aspart (NOVOLOG) + Fsbg Testing Subcutaneous TID MEALS+HS Stopped at06/01/20 1700 sodium ferric gluconate (FERRLECIT) 125 mg in NaCl 0.9% (NS) 100 mL IV piggyback 125 mg IV Piggyback DAILY 125 mg at 06/01/20 0847 vancomycin (VANCOCIN) 1,000 mg in NaCl 0.9% (NS) 250 mL VIAL-MATE IV piggyback 15 mg/kg IV Piggyback Q24H ABX 1,000 mg at 06/01/20 1209 zinc sulfate (ORAZINC) capsule 220 mg 220 mg Oral BID 220 mg at 06/01/20 0847 mello, MD Vanessa - 06/01/2020 1:48 PM CDT [facility] Cardiology progress note Date of Service: 06/01/2020 Enma Cat is a 79 years old male hospitalized for pneumonia. Feeling better. Good UOP. Rising Cr. PHYSICAL EXAM Vitals: 06/01/20 0719 06/01/20 0800 06/01/20 1000 06/01/20 1100 BP: 138/70 (!) 114/94 Pulse: 65 67 68 Resp: Temp: 36.1 C (97 F) 36.3 C (97.3 F) TempSrc: Temporal Artery Temporal Artery SpO2: 93% 95% 98% 96% Weight: Height: Date 06/01/20 0700 - 06/02/20 0659 Shift 6262-9440 6754-4823 1485-1935 24 Hour Total INTAKE Shift Total OUTPUT Urine(mL/kg/hr) 1000 1000 Shift Total 1000 1000 Weight (kg) 65 65 65 65 General: alert and oriented x 3 (person, place and date/time); no apparent distress HEENT: normocephalic atraumatic Neck: supple, no lymphadenopathy, no bruits, no JVD Lungs: clear to auscultation bilaterally Cardio: S1, S2, normal rate, regular; no murmurs, rubs or gallops Abdomen: non-distended : not examined Rectal: not examined Extremities: no clubbing, cyanosis, or edema Skin: no rashes Neuro: no focal deficits Medications: I have reviewed the patient's medications; see Medication Reconciliation. Labs: I have reviewed the patient's labs. ASSESSMENT AND PLAN Principal Problem: Dyspnea Active Problems: HLD (hyperlipidemia) Essential hypertension, benign Acute on chronic diastolic congestive heart failure Pneumonia due to infectious organism Elevated troponin I level Stage 3 chronic kidney disease Sepsis/multifoal pneumonia/toxic metabolic encephalopathy: As per primary team. Improving. Elevated trop: Troponin trending down. Likely Type 2 NC in the HF and sepsis, demand ischemia. Continue ASA/lipitor/metoprolol. Nonischemic cardiomyopathy/Acute on chronic systolic/diastolic HF: Significantly elevated NT pro BNPnoted. Echo reviewed. Continue home dose of Lopressor 25 mg BiD, Entresto 97/103 mg BiD. Given rising Cr, will change IV lasix to PO 40 mg daily. Will watch for adjustment. Dyslipidemia: on lipitor 40 mg daily. COLIN on CKD3: will monitor. Vanessa Sanders MD, FACC, [place] Client Experience Consultant, Division of Cardiology [facility] Jr Lott MD - 06/01/2020 1:37 PM CDT Patient know to us from clinic.Patient is more alert and talking more comfortably. However, still with shortness of breath. Trace/verry little edema. On abx/being followed by ID and director internal audit. Vs stable. sbp in 110 range. Lungs cta cvs regular Abd soft Ext edema/trace, minimal Patient eating better/alert. Says he feels better. Still with some shortness of breath, improved overall A/p: Ckd/colin/volume status improved. On lower lasix now (once daily). Beginning to eat better. May need to go back on twice daily lasix as he eats better, if volume status worsens or shortness of breath worsens. However, bp is towards lower side and would need monitoring if lasix is needed to be increased.Hg below 9, give dose of retracrit. clinically improving. Evaluate and monitor residual damage/ckd once acute issues resolved. Fall precautions. Discussed with nursing staff to see if patient can be safely out of bed to chair; very few hours as tolerated. Patient is wanting to try to get out of bed to chair as well. Vanessa Snell MD - 05/31/2020 8:03 PM CDT [facility] Cardiology progress note Date of Service: 05/31/2020 Enma Cat is a 79 years old male hospitalized for pneumonia. Feeling better. Good UOP. PHYSICAL EXAM Vitals: 05/31/20 1100 05/31/20 1200 05/31/20 1600 05/31/20 1800 BP: (!) 157/71 (!) 141/80 132/80 Pulse: 119 79 81 Resp: 19 21 20 Temp: 36.3 C (97.4 F) 36.6 C (97.9 F) TempSrc: Oral Oral SpO2: 94% 94% 93% Weight: Height: Date 05/31/20 0700 - 06/01/20 0659 Shift 9888-5517 [id number] 9381-6449 24 Hour Total INTAKE Shift Total OUTPUT Urine(mL/kg/hr) 700(1.3) 250 950 Shift Total 700 250 950 Weight (kg) 65 65 65 65 General: alert and oriented x 3 (person, place and date/time); no apparent distress HEENT: normocephalic atraumatic Neck: supple, no lymphadenopathy, no bruits, no JVD Lungs: clear to auscultation bilaterally Cardio: S1, S2, normal rate, regular; no murmurs, rubs or gallops Abdomen: non-distended : not examined Rectal: not examined Extremities: no clubbing, cyanosis, or edema Skin: no rashes Neuro: no focal deficits Medications: I have reviewed the patient's medications; see Medication Reconciliation. Labs: I have reviewed the patient's labs. ASSESSMENT AND PLAN Principal Problem: Dyspnea Active Problems: HLD (hyperlipidemia) Essential hypertension, benign Acute on chronic diastolic congestive heart failure Pneumonia due to infectious organism Elevated troponin I level Stage 3 chronic kidney disease Sepsis/multifoal pneumonia/toxic metabolic encephalopathy: As per primary team. Improving. Elevated trop: Troponin trending down. Likely Type 2 NC in the HF and sepsis, demand ischemia. Continue ASA/lipitor/metoprolol. Nonischemic cardiomyopathy/Acute on chronic systolic/diastolic HF: Significantly elevated NT pro BNPnoted. Recommend aggressive IV diuresis. Echo reviewed. Continue home dose of Lopressor 25 mg BiD, Entresto 97/103 mg BiD. Currently on IV lasix 40 mg daily with good UOP. Uptrending Cr. Will watch foradjustment. Dyslipidemia: on lipitor 40 mg daily. COLIN on CKD3: will monitor. Vanessa Sanders MD, FACC, [place] Client Experience Consultant, Division of Cardiology [facility] YTRufus Goodwin MD - 05/31/2020 5:45 PM CDT Hospital Medicine Progress Note Name: Enma Cat : 1940 Admit Date: 05/29/2020 PCP on file: Pia Jose ASSESSMENT: Enma Cat is a 79 year old male with PLAN: # AMS, acute toxic metabolic encephalopathy, etiology unclear. Possibly due to infection/PNA/bacteremia and/or CHF decompendation - better, 1:1 obs - other management as below # acute on chronic systolic CHF # h/o NICMP # NSTEMI, likely type 2 # HTN - CT and CXR showed pulm edema. On iv lasix. Monitor I/O. Daily weight - entresto, metoprolol - asa, statin - echo showed no new change, EF 40-45%, mitral regurg - cardiology following. Follow with Dr. Arenas as outpt # sepsis with acute encephalopathy and COLIN # possible multifocal PNA # GPC bacteremia # positive strep pneumo antigen - procal WNL; covid neg - on empiric abx, vanco day 2, levaquin day 3, zosyn day 1 - ID consulted - speech consulted, and recommended MBS; watch for aspiration # COLIN on CKD 3 # anemia # vit D deficiency # iron deficiency - avoid nephrotoxins - nephrology consulted - monitor renal function - lasix dose decreased - vit D and iron suppl # DM2 - SSI - A1c 5.4 Called and update her about patient's condition and management plan Dispo: home once medically cleared VTE Prophylaxis: heparin Code Status: [facility] DIETARY WORKER was verified during stay Electronically signed by: Rufus Goodwin MD SUBJECTIVE/ 24-HOUR HOSPITAL EVENTS: 05/30: presented overnight for AMS and fever. Remains confused. 05/31: seems improved. Slightly confused. OBJECTIVE: Vital signs range: Temp: [36.3 C (97.4 F)-38.3 C (101 F)] 36.6 C (97.9 F) Pulse: [60-119] 79 Resp: [16-24] 21 BP: (124-170)/(71-91) 141/80 Most recent vital signs: BP (!) 141/80 | Pulse 79 | Temp 36.6 C (97.9 F) (Oral) | Resp 21 | Ht 5' 5" (1.651 m) | Wt 143 lb 4.8 oz (65 kg) | SpO2 94% | BMI 23.85 kg/m I/O: I/O last 3 completed shifts: In: 400 [Oral:250; I.V.:150] Out: 2880 [Urine:2880] PHYSICAL EXAM: General: mildly confused HEENT: pupils equal, round, reactive to light; extraocular movements intact; oropharynx clear; moistmucous membranes Neck: supple, no lymphadenopathy, no bruits, no JVD Lungs: clear to auscultation bilaterally Cardio: S1, S2 normal; III/ systolic murmur; no rubs or gallops Abdomen: soft; non-tender; non-distended; normoactive bowel sounds Extremities: no clubbing, cyanosis, or edema Skin: no rashes LABS: I reviewed all the relevant patient's new lab test results Recent Results (from the past 24 hour(s)) POCT GLUCOSE (AUTOMATED) Collection Time: 05/30/20 7:32 PM Result Value Ref Range POCT GLU 154 (H) 70 - 110 mg/dL CBC WITH DIFF Collection Time: 05/31/20 3:32 AM Result Value Ref Range WBC 5.22 4.20 - 10.70 10*3/L RBC 3.00 (L) 4.26 - 5.52 10*6/L HGB 9.6 (L) 12.2 - 16.4 g/dL HCT 27.5 (L) 38.4 - 49.3 % MCV 91.7 81.7 - 95.6 fL MCH 32.0 26.1 - 32.7 pg MCHC 34.9 31.2 - 35.0 g/dL RDW-SD 47.7 38.5 - 51.6 fL RDW-CV 14.0 12.1 - 15.4 % PLT 141 (L) 150 - 328 10*3/L MPV 10.5 9.8 - 13.0 fL NRBC/100 WBC 0.0 0.0 - 10.0 /100 WBCs NRBC x10^3 <0.01 10*3/L GRAN MAT (NEUT) % 81.0 % IMM GRAN % 0.40 % LYMPH % 4.8 % MONO % 11.5 % EOS % 1.7 % BASO % 0.6 % GRAN MAT x10^3(ANC) 4.23 1.99 - 6.95 10*3/uL IMM GRAN x10^3 <0.03 0.00 - 0.06 10*3/uL LYMPH x10^3 0.25 (L) 1.09 - 3.23 10*3/uL MONO x10^3 0.60 0.36 - 1.02 10*3/uL EOS x10^3 0.09 0.06 - 0.53 10*3/uL BASO x10^3 0.03 0.01 - 0.09 10*3/uL COMP. METABOLIC PANEL (79726) Collection Time: 05/31/20 3:32 AM Result Value Ref Range NA 133 (L) 135 - 145 mmol/L K 3.4 (L) 3.5 - 5.0 mmol/L CL 95 (L) 98 - 108 mmol/L CO2 TOTAL 29 23 - 31 mmol/L AGAP 9 2 - 16 BUN 36 (H) 7 - 23 mg/dL GLUCOSE 136 (H) 70 - 110 mg/dL CREATININE 1.71 (H) 0.60 - 1.25 mg/dL TOTAL BILI 0.8 0.1 - 1.1 mg/dL CALCIUM 9.4 8.6 - 10.6 mg/dL T PROTEIN 6.5 6.3 - 8.2 g/dL ALBUMIN 3.4 (L) 3.5 - 5.0 g/dL ALK PHOS 59 34 - 122 U/L ALTv 35 5 - 50 U/L AST(SGOT) 42 (H) 13 - 40 U/L eGFR Calculation (Non-) 39.0 mL/min/1.73m2 eGFR Calculation () 47.3 mL/min/1.73m2 N-TERMINAL PRO-BNP Collection Time: 05/31/20 3:32 AM Result Value Ref Range NT-proBNP 50,500 (H) <=450 pg/mL MAGNESIUM Collection Time: 05/31/20 3:32 AM Result Value Ref Range MAGNESIUM 1.4 (L) 1.7 - 2.4 mg/dL URIC ACID Collection Time: 05/31/20 3:32 AM Result Value Ref Range URIC ACID 9.0 (H) 3.6 - 8.0 mg/dL TROPONIN I Collection Time: 05/31/20 3:32 AM Result Value Ref Range TROPONIN I 0.167 (H) <=0.034 ng/mL POCT GLUCOSE (AUTOMATED) Collection Time: 05/31/20 11:59 AM Result Value Ref Range POCT GLU 106 70 - 110 mg/dL AMMONIA, PLASMA Collection Time: 05/31/20 12:01 PM Result Value Ref Range AMMONIA <9 (L) 9 - 33 umol/L POCT GLUCOSE (AUTOMATED) Collection Time: 05/31/20 4:51 PM Result Value Ref Range POCT GLU 105 70 - 110 mg/dL IMAGING: I reviewed all the relevant patient's new radiology test results Hospital Encounter on 05/29/20 CT THORAX WO CONTRAST Narrative PROCEDURE: CT CHEST WITHOUT CONTRAST - CHEST PROTOCOL CLINICAL INDICATION:Acute resp illness, > 40 years old COMPARISON: None TECHNIQUE: Helical CT was performed of the chest (lung apices to bases) using 100 mL Omnipaque-350 nonionic intravenous contrast, without complications. Images were reconstructed at 1.25 mm slice thickness. Axial MIPs and coronal and sagittal MPR images were generated and reviewed. (Display [id number] = 35 cm) FINDINGS: Lower neck/thyroid: Unremarkable. Lungs: Centrilobular septal thickening with groundglass attenuating parenchyma. Left lower lobe calcified granuloma. A 0.4 cm noncalcified, solid pulmonary nodule along the horizontal fissure (10:53), likely a pulmonary lymph node. Spiculated subpleural nodule within the right upper lobe (10:37). A 0.9 cm pulmonary nodule in the right lower lobe (10:66), this may represent a focus of pulmonary edema or atelectasis. Left lower lobe nodular opacities measure 0.7 cm, 0.8 cm and 0.6 cm, also may represent foci of pulmonary edema and/or atelectasis. Central airway: Unremarkable. Pleura: Large volume right pleural effusion. Trace volume left pleural effusion. No thickening or pneumothorax. Thoracic aorta and great vessels: Normal in diameter. Pulmonary arteries: Normal in caliber. Heart and pericardium: No detectable coronary artery calcifications. Cardiac megaly. Lymph nodes: Calcified mediastinal and bilateral hilar lymph nodes. Mediastinum: Unremarkable. Thoracic spine and chest wall: Unremarkable, with normal thoracic vertebral body heights. Other Lines/Tubes/Devices/Hardware: Left chest wall pacemaker/AICD with leads terminating in the right ventricle, right atrium, and coronary sinus.. Visualized upper abdomen: Scattered splenic and hepatic calcified granulomas. Impression 1. Pulmonary edema with moderate volume right and trace volume left pleural effusions. Dilated left ventricle. 2. Scattered pulmonary nodular opacities may represent scattered foci of pulmonary edema and/or atelectasis. However, underlying solid, noncalcified pulmonary nodules cannot be excluded. A follow-up CT chest in 3 6 months recommended document. 3. Calcified intrathoracic lymph nodes with calcified pulmonary, hepatic, and splenic granulomas can be seen with prior granulomatous disease. Preliminary Report Dictated by Resident: Iam Mcguire MD., have reviewed this study and agree with the above report. CT HEAD WO CONTRAST Narrative CT HEAD WO CONTRAST HISTORY: Altered mental status (AMS), unclear cause COMPARISON: None available. TECHNIQUE: Routine unenhanced brain CT. FINDINGS: No acute intracranial hemorrhage, extracerebral fluid collection, midline shift or mass effect. No acute transcortical infarction. Trace intracranial atherosclerosis. Ventricles are normal. Cerebral volume is age appropriate. No depressed calvarial fracture. Visualized orbits are unremarkable. Mucosal thickening of a left posterior ethmoid air cell. Impression No acute intracranial hemorrhage or mass effect. XR CHEST 1 VW Narrative EXAM: XR CHEST 1 VW HISTORY: 79 years-old; Male; ACough, SOB, Wheezing COMPARISON: 03/25/2015 radiograph FINDINGS: Left-sided AICD with leads terminating in right atrium, right ventricle and coronary sinus. Lungs/Pleura: Multifocal airspace and interstitial opacities are noted. There is no pleural effusion or pneumothorax. Heart/Mediastinum: The cardiomediastinal silhouette is enlarged, unchanged. No acute osseous structure abnormality. Impression Multifocal interstitial and airspace opacities are concerning for bronchopneumonia. These findings can also be seen with atypical infectious process, including COVID-19 pneumonia. Disclaimer: Generally, the findings on chest imaging in COVID-19 are not specific, and overlap with other infections, including influenza, H1N1, SARS and MERS. According to the Centers for Disease Control (CDC) and recent statement of the [employer], viral testing remains the only specific method of diagnosis. Confirmation with the viral test is required, even if radiologic findings are suggestive of COVID-[address] Preliminary Report Dictated by Resident: Ming Bradley MD., have reviewed this study and agree with the above report. MEDICATIONS: I reviewed the current inpatient medications ordered Current Facility-Administered Medications Medication Dose Route Frequency Last Rate Last Dose [START ON 06/01/2020] furosemide (LASIX) injection 40 mg 40 mg IV Push DAILY acetaminophen (TYLENOL) tablet 650 mg 650 mg Oral Q6HPRN 650 mg at 05/31/20 0554 ascorbic acid (vitamin C) (VITAMIN C) tablet 500 mg 500 mg Oral TID 500 mg at 05/31/20 1504 aspirin chewable tablet 81 mg 81 mg Oral DAILY 81 mg at 05/31/20 0849 atorvastatin (LIPITOR) tablet 40 mg 40 mg Oral QHS 40 mg at 05/30/20 202 cholecalciferol (vitamin D3) tablet 1,000 Units 1,000 Units Oral BID 1,000 Units at 05/31/20 0849 dextrose 50 % in water (D50W) injection 25 mL 25 mL Slow IV Push PRN docusate (COLACE) capsule 100 mg 100 mg Oral BID 100 mg at 05/31/20 0849 glucagon (GLUCAGEN DIAGNOSTIC KIT) injection 1 mg 1 mg Intramuscular PRN heparin (porcine) injection 5,000 Units 5,000 Units Subcutaneous Q8H 5,000 Units at 05/31/20 1504 levoFLOXacin in D5W (LEVAQUIN) 750 mg/150 mL Piggyback 750 mg 750 mg IV Piggyback Q24H ABX 750 mg at 05/31/20 0150 metoprolol tartrate (LOPRESSOR) tablet 25 mg 25 mg Oral BID 25 mg at 05/31/20 0849 ondansetron (ZOFRAN (PF)) injection 4 mg 4 mg Slow IV Push Q6HPRN primidone (MYSOLINE) tablet 250 mg 250 mg Oral Q6H 250 mg at 05/31/20 1247 sacubitriL-valsartan (ENTRESTO) 97-103 mg tablet 1 tablet 1 tablet Oral BID Stopped at 05/30/20 0800 Sliding Scale Insulin - Aspart (NOVOLOG) + Fsbg Testing Subcutaneous TID MEALS+HS Stopped at05/30/20 0800 sodium ferric gluconate (FERRLECIT) 125 mg in NaCl 0.9% (NS) 100 mL IV piggyback 125 mg IV Piggyback DAILY 125 mg at 05/31/20 0925 vancomycin (VANCOCIN) 1,000 mg in NaCl 0.9% (NS) 250 mL VIAL-MATE IV piggyback 15 mg/kg IV Piggyback Q24H ABX 1,000 mg at 05/31/20 1203 zinc sulfate (ORAZINC) capsule 220 mg 220 mg Oral BID 220 mg at 05/31/20 0849 Jr Lott MD - 05/31/2020 11:57 AM CDTPatient know to us from clinic. We were following him at [facility] recently as well before he was discharged from there. Patient seen / examined. Discussed with Hospitalist, Dr. Goodwin, and also with patient's RN (Marielena). Patient is alert and talking more comfortably. On abx/being followed by ID and director internal audit. Vs stable. Lungs cta cvs regular Abd soft Ext edema/trace Patient eating lunch/alert. Says he feels better. A/p: Ckd/colin/volume status improved. On lower lasix now (once daily). Beginning to eat better. Breathing stable. On abx for ? Pneumonia. Check ammonia level. Abx and vancomycin monitoring as per ID. Once organisms clear, may need abx adjustment; clinically improving. Evaluate and monitor residual damage/ckd once acute issues resolved. Fall precautions. Case reviewed with Dr. Goodwin (Hospitalist) Sundar Wheat RN - 05/30/2020 11:05 AM CDT Spoke w/ patient's son and who stated they'd prefer him to go to [facility] for SNF. Awaiting for PT eval to fax over request. Sundar Porter RN, BSN [facility] ADC Management And Budget Analyst [phone] Rufus Lipscomb MD - 05/30/2020 11:02 AM CDT Hospital Medicine Progress Note Name: Enma Cat : 1940 Admit Date: 05/29/2020 PCP on file: Pia Jose ASSESSMENT: Enma Cat is a 79 year old male with PLAN: # AMS, acute toxic metabolic encephalopathy, etiology unclear. Possibly due to infection/PNA and/or CHF decompendation - soft restraint because patient was trying to climb out of bed - family informed - ? vaishnavi prn - other management as below # acute on chronic systolic CHF # h/o NICMP # NSTEMI, likely type 2 # HTN - CT and CXR showed pulm edema. Will increase lasix dose. Monitor I/O. Daily weight - entresto, metoprolol - asa, statin - trend trop - obtain echo - cardiology following. Follow with Dr. Arenas as outpt # sepsis with acute encephalopathy and COLIN # possible multifocal PNA - procal WNL; covid neg - on empiric abx, vanco day 1, levaquin day 2 - ID consulted - speech consulted for possible trouble swallowing # COLIN on CKD 3 # anemia # vit D deficiency - avoid nephrotoxins - nephrology consulted - monitor renal function # DM2 - ssi - A1c 5.4 Called patient's son and daughter in law. Pt does not have a POA. Per patient's son, patient is fullcode. Dispo: home once medically cleared VTE Prophylaxis: heparin Code Status: [facility] DIETARY WORKER was verified during stay Electronically signed by: Rufus Goodwin MD SUBJECTIVE/ 24-HOUR HOSPITAL EVENTS: 05/30: presented overnight for AMS and fever. Remains confused. OBJECTIVE: Vital signs range: Temp: [37.3 C (99.1 F)-38.4 C (101.1 F)] 37.3 C (99.1 F) Pulse: [72-123] 95 Resp: [16-28] 23 BP: (138-171)/(70-112) 169/83 Most recent vital signs: BP (!) 169/83 | Pulse 95 | Temp 37.3 C (99.1 F) (Axillary) | Resp 23 | Ht 5' 5" (1.651 m) |Wt 145 lb 8 oz (66 kg) | SpO2 98% | BMI 24.21 kg/m I/O: I/O last 3 completed shifts: In: - Out: 800 [Urine:800] PHYSICAL EXAM: General: mild distress HEENT: pupils equal, round, reactive to light; extraocular movements intact; oropharynx clear; moistmucous membranes Neck: supple, no lymphadenopathy, no bruits, no JVD Lungs: clear to auscultation bilaterally Cardio: S1, S2 normal; no murmurs, rubs or gallops Abdomen: soft; non-tender; non-distended; normoactive bowel sounds Extremities: no clubbing, cyanosis, or edema Skin: no rashes LABS: I reviewed all the relevant patient's new lab test results Recent Results (from the past 24 hour(s)) CBC WITH DIFF Collection Time: 05/29/20 7:59 PM Result Value Ref Range WBC 6.35 4.20 - 10.70 10*3/L RBC 3.31 (L) 4.26 - 5.52 10*6/L HGB 10.6 (L) 12.2 - 16.4 g/dL HCT 30.4 (L) 38.4 - 49.3 % MCV 91.8 81.7 - 95.6 fL MCH 32.0 26.1 - 32.7 pg MCHC 34.9 31.2 - 35.0 g/dL RDW-SD 46.8 38.5 - 51.6 fL RDW-CV 13.9 12.1 - 15.4 % PLT 162 150 - 328 10*3/L MPV 9.9 9.8 - 13.0 fL NRBC/100 WBC 0.0 0.0 - 10.0 /100 WBCs NRBC x10^3 <0.01 10*3/L GRAN MAT (NEUT) % 82.3 % IMM GRAN % 0.50 % LYMPH % 5.5 % MONO % 10.6 % EOS % 0.6 % BASO % 0.5 % GRAN MAT x10^3(ANC) 5.23 1.99 - 6.95 10*3/uL IMM GRAN x10^3 0.03 0.00 - 0.06 10*3/uL LYMPH x10^3 0.35 (L) 1.09 - 3.23 10*3/uL MONO x10^3 0.67 0.36 - 1.02 10*3/uL EOS x10^3 0.04 (L) 0.06 - 0.53 10*3/uL BASO x10^3 0.03 0.01 - 0.09 10*3/uL COMP. METABOLIC PANEL ([id number]) Collection Time: 05/29/20 7:59 PM Result Value Ref Range NA 135 135 - 145 mmol/L K 4.0 3.5 - 5.0 mmol/L CL 98 98 - 108 mmol/L CO2 TOTAL 27 23 - 31 mmol/L AGAP 10 2 - 16 BUN 27 (H) 7 - 23 mg/dL GLUCOSE 143 (H) 70 - 110 mg/dL CREATININE 1.51 (H) 0.60 - 1.25 mg/dL TOTAL BILI 0.6 0.1 - 1.1 mg/dL CALCIUM 9.5 8.6 - 10.6 mg/dL T PROTEIN 6.9 6.3 - 8.2 g/dL ALBUMIN 3.9 3.5 - 5.0 g/dL ALK PHOS 78 34 - 122 U/L ALTv 29 5 - 50 U/L AST(SGOT) 37 13 - 40 U/L eGFR Calculation (Non-) 45.0 mL/min/1.73m2 eGFR Calculation () 54.6 mL/min/1.73m2 TROPONIN I Collection Time: 05/29/20 7:59 PM Result Value Ref Range TROPONIN I 0.148 (H) <=0.034 ng/mL COVID-19 (ID NOW RAPID TESTING) Collection Time: 05/29/20 7:59 PM Specimen: NASOPHARYNGEAL SWAB Result Value Ref Range SARS-CoV-2 Rapid ID NOW Not Detected Not Detected N-TERMINAL PRO-BNP Collection Time: 05/29/20 7:59 PM Result Value Ref Range NT-proBNP 26,300 (H) <=450 pg/mL MAGNESIUM Collection Time: 05/29/20 7:59 PM Result Value Ref Range MAGNESIUM 1.6 (L) 1.7 - 2.4 mg/dL PHOSPHORUS Collection Time: 05/29/20 7:59 PM Result Value Ref Range PHOSPHORUS 2.9 2.5 - 5.0 mg/dL THYROID STIMULATING HORMONE Collection Time: 05/29/20 7:59 PM Result Value Ref Range TSH 2.74 0.45 - 4.70 mIU/L GLYCOSYLATED HEMOGLOBIN (A1C) Collection Time: 05/29/20 7:59 PM Result Value Ref Range HGB A1C 5.4 4.0 - 6.0 % CREATINE KINASE Collection Time: 05/29/20 7:59 PM Result Value Ref Range CK 88 33 - 194 U/L URIC ACID Collection Time: 05/29/20 7:59 PM Result Value Ref Range URIC ACID 7.9 3.6 - 8.0 mg/dL LIPID PANEL ([id number])(TOTAL CHOLESTEROL, TRIGLYCERIDES, HDL) Collection Time: 05/29/20 7:59 PM Result Value Ref Range CHOL 174 120 - 200 mg/dL HDL 37 (L) >40 mg/dL HDLC RATIO 4.7 <=5.0 TRIG 85 30 - 170 mg/dL LDL CHOL 120 <=160 mg/dL VLDL 17 5 - 60 mg/dL FERRITIN SERUM Collection Time: 05/29/20 7:59 PM Result Value Ref Range FERRITIN 73.2 18.0 - 464.0 ng/mL POCT GLUCOSE (AUTOMATED) Collection Time: 05/29/20 8:03 PM Result Value Ref Range POCT GLU 130 (H) 70 - 110 mg/dL POCT GLUCOSE(AGE >30DAYS) Collection Time: 05/29/20 8:04 PM Result Value Ref Range POCT Glu (age>30days) 130 (A) 70 - 110 mg/dL AC ABG + LACTIC ACID Collection Time: 05/29/20 8:06 PM Result Value Ref Range PH 7.44 7.35 - 7.45 PCO2 35 35 - 45 mmHg PO2 134 (H) 80 - 100 mmHg HCO3 23 22 - 26 mEq/L BE -0.6 -3.0 - 3.0 mEq/L LACTIC ACID 1.10 mmol/L URINALYSIS Collection Time: 05/29/20 10:39 PM Result Value Ref Range APPEARANCE Clear Clear COLOR Yellow Yellow PH 6.0 4.8 - 8.0 SP GRAVITY 1.010 1.003 - 1.030 GLU U QUAL Normal Normal BLOOD 1+ (A) Negative KETONES Negative Negative PROTEIN 500 mg/dL (A) Negative UROBILIN Normal Normal BILIRUBIN Negative Negative NITRITE Negative Negative LEUK MARLENA Negative Negative RBC/HPF 8 (H) 0 - 3 HPF WBC/HPF 1 0 - 5 HPF BACTERIA Few (A) Negative MUCOUS Slight (A) Negative LPF HYAL CAST 3 (H) <=2 LPF GRAN CASTS 4 (H) <=1 LPF CORONAVIRUS COVID-19 TESTING Collection Time: 05/30/20 12:20 AM Specimen: NASOPHARYNGEAL SWAB Result Value Ref Range SARS-CoV-2 PCR Not Detected Not Detected RESPIRATORY PANEL BY PCR Collection Time: 05/30/20 12:20 AM Specimen: NASOPHARYNGEAL SWAB Result Value Ref Range Adenovirus Negative Negative Coronavirus HKU1 Negative Negative Coronavirus NL63 Negative Negative Coronavirus 229E Negative Negative Coronavirus OC43 Negative Negative Human Metapneumovirus Negative Negative Human Rhinovirus/Enterovirus Negative Negative Influenza A Negative Negative Influenza B Negative Negative Parainfluenza Virus 1 Negative Negative Parainfluenza Virus 2 Negative Negative Parainfluenza Virus 3 Negative Negative Parainfluenza Virus 4 Negative Negative Respiratory Syncytial Virus Negative Negative Bordetella parapertussis Negative Negative Bordetella pertussis Negative Negative Chlamydia pneumoniae Negative Negative Mycoplasma pneumoniae Negative Negative BLOOD CULTURE SCREEN Collection Time: 05/30/20 2:07 AM Specimen: VENOUS; Blood Result Value Ref Range Blood Culture-Aerobic Culture In Progress No growth Blood Culture-Anaerobic Culture In Progress No growth BLOOD CULTURE SCREEN Collection Time: 05/30/20 2:07 AM Specimen: VENOUS; Blood Result Value Ref Range Blood Culture-Aerobic Culture In Progress No growth Blood Culture-Anaerobic Culture In Progress No growth PROCALCITONIN Collection Time: 05/30/20 2:08 AM Result Value Ref Range Procalcitonin 0.06 <0.07 ng/mL PROTHROMBIN TIME / INR Collection Time: 05/30/20 2:08 AM Result Value Ref Range PROTIME PATIENT 14.6 12.0 - 14.7 Seconds INR 1.2 VITAMIN B12, LEVEL Collection Time: 05/30/20 2:08 AM Result Value Ref Range VIT B12 412 240 - 930 pg/mL FOLATE Collection Time: 05/30/20 2:08 AM Result Value Ref Range FOLATE SER 8.4 3.0 - 20.0 ng/mL OSMOLALITY SERUM Collection Time: 05/30/20 2:08 AM Result Value Ref Range OSMOLALITY 289 278 - 305 mOsm/kg UREA NITROGEN, URINE RANDOM Collection Time: 05/30/20 3:25 AM Result Value Ref Range UREA N UR 114 mg/dL PROTEIN CREAT RATIO URINE RANDOM Collection Time: 05/30/20 3:28 AM Result Value Ref Range T. PROT U 104 mg/dL CREAT U 14.4 mg/dL Protein/Creatinine Ratio Urine 7.2 (H) 0.0 - 2.0 SODIUM, URINE RANDOM Collection Time: 05/30/20 3:28 AM Result Value Ref Range NA URINE 123 mmol/L TROPONIN I Collection Time: 05/30/20 3:34 AM Result Value Ref Range TROPONIN I 0.233 (H) <=0.034 ng/mL IRON PANEL Collection Time: 05/30/20 3:34 AM Result Value Ref Range IRON 37 (L) 50 - 160 ug/dL TIBC 259 250 - 410 ug/dL % FE SAT 14 (L) 20 - 50 % COMP. METABOLIC PANEL ([id number]) Collection Time: 05/30/20 3:34 AM Result Value Ref Range NA 135 135 - 145 mmol/L K 4.3 3.5 - 5.0 mmol/L CL 98 98 - 108 mmol/L CO2 TOTAL 26 23 - 31 mmol/L AGAP 11 2 - 16 BUN 29 (H) 7 - 23 mg/dL GLUCOSE 127 (H) 70 - 110 mg/dL CREATININE 1.38 (H) 0.60 - 1.25 mg/dL TOTAL BILI 0.9 0.1 - 1.1 mg/dL CALCIUM 9.4 8.6 - 10.6 mg/dL T PROTEIN 6.6 6.3 - 8.2 g/dL ALBUMIN 3.7 3.5 - 5.0 g/dL ALK PHOS 65 34 - 122 U/L ALTv 28 5 - 50 U/L AST(SGOT) 42 (H) 13 - 40 U/L eGFR Calculation (Non-) 50.0 mL/min/1.73m2 eGFR Calculation () 60.6 mL/min/1.73m2 N-TERMINAL PRO-BNP Collection Time: 05/30/20 3:34 AM Result Value Ref Range NT-proBNP 36,600 (H) <=450 pg/mL MAGNESIUM Collection Time: 05/30/20 3:34 AM Result Value Ref Range MAGNESIUM 1.4 (L) 1.7 - 2.4 mg/dL URIC ACID Collection Time: 05/30/20 3:34 AM Result Value Ref Range URIC ACID 7.8 3.6 - 8.0 mg/dL SEDIMENTATION RATE Collection Time: 05/30/20 4:51 AM Result Value Ref Range ESR 53 (H) 0 - 10 mm/HR CBC WITH DIFF Collection Time: 05/30/20 4:51 AM Result Value Ref Range WBC 5.43 4.20 - 10.70 10*3/L RBC 2.93 (L) 4.26 - 5.52 10*6/L HGB 9.5 (L) 12.2 - 16.4 g/dL HCT 26.9 (L) 38.4 - 49.3 % MCV 91.8 81.7 - 95.6 fL MCH 32.4 26.1 - 32.7 pg MCHC 35.3 (H) 31.2 - 35.0 g/dL RDW-SD 47.6 38.5 - 51.6 fL RDW-CV 14.2 12.1 - 15.4 % PLT 145 (L) 150 - 328 10*3/L MPV 10.5 9.8 - 13.0 fL NRBC/100 WBC 0.0 0.0 - 10.0 /100 WBCs NRBC x10^3 <0.01 10*3/L GRAN MAT (NEUT) % 83.1 % IMM GRAN % 0.40 % LYMPH % 3.7 % MONO % 11.8 % EOS % 0.4 % BASO % 0.6 % GRAN MAT x10^3(ANC) 4.52 1.99 - 6.95 10*3/uL IMM GRAN x10^3 <0.03 0.00 - 0.06 10*3/uL LYMPH x10^3 0.20 (L) 1.09 - 3.23 10*3/uL MONO x10^3 0.64 0.36 - 1.02 10*3/uL EOS x10^3 <0.03 (L) 0.06 - 0.53 10*3/uL BASO x10^3 0.03 0.01 - 0.09 10*3/uL POCT GLUCOSE (AUTOMATED) Collection Time: 05/30/20 8:56 AM Result Value Ref Range POCT GLU 100 70 - 110 mg/dL IMAGING: I reviewed all the relevant patient's new radiology test results Hospital Encounter on 05/29/20 CT THORAX WO CONTRAST Narrative PROCEDURE: CT CHEST WITHOUT CONTRAST - CHEST PROTOCOL CLINICAL INDICATION:Acute resp illness, > 40 years old COMPARISON: None TECHNIQUE: Helical CT was performed of the chest (lung apices to bases) using 100 mL Omnipaque-350 nonionic intravenous contrast, without complications. Images were reconstructed at 1.25 mm slice thickness. Axial MIPs and coronal and sagittal MPR images were generated and reviewed. (Display [id number] = 35 cm) FINDINGS: Lower neck/thyroid: Unremarkable. Lungs: Centrilobular septal thickening with groundglass attenuating parenchyma. Left lower lobe calcified granuloma. A 0.4 cm noncalcified, solid pulmonary nodule along the horizontal fissure (10:53), likely a pulmonary lymph node. Spiculated subpleural nodule within the right upper lobe (10:37). A 0.9 cm pulmonary nodule in the right lower lobe (10:66), this may represent a focus of pulmonary edema or atelectasis. Left lower lobe nodular opacities measure 0.7 cm, 0.8 cm and 0.6 cm, also may represent foci of pulmonary edema and/or atelectasis. Central airway: Unremarkable. Pleura: Large volume right pleural effusion. Trace volume left pleural effusion. No thickening or pneumothorax. Thoracic aorta and great vessels: Normal in diameter. Pulmonary arteries: Normal in caliber. Heart and pericardium: No detectable coronary artery calcifications. Cardiac megaly. Lymph nodes: Calcified mediastinal and bilateral hilar lymph nodes. Mediastinum: Unremarkable. Thoracic spine and chest wall: Unremarkable, with normal thoracic vertebral body heights. Other Lines/Tubes/Devices/Hardware: Left chest wall pacemaker/AICD with leads terminating in the right ventricle, right atrium, and coronary sinus.. Visualized upper abdomen: Scattered splenic and hepatic calcified granulomas. Impression 1. Pulmonary edema with moderate volume right and trace volume left pleural effusions. Dilated left ventricle. 2. Scattered pulmonary nodular opacities may represent scattered foci of pulmonary edema and/or atelectasis. However, underlying solid, noncalcified pulmonary nodules cannot be excluded. A follow-up CT chest in 3 6 months recommended document. 3. Calcified intrathoracic lymph nodes with calcified pulmonary, hepatic, and splenic granulomas can be seen with prior granulomatous disease. Preliminary Report Dictated by Resident: Iam Mcguire MD., have reviewed this study and agree with the above report. CT HEAD WO CONTRAST Narrative CT HEAD WO CONTRAST HISTORY: Altered mental status (AMS), unclear cause COMPARISON: None available. TECHNIQUE: Routine unenhanced brain CT. FINDINGS: No acute intracranial hemorrhage, extracerebral fluid collection, midline shift or mass effect. No acute transcortical infarction. Trace intracranial atherosclerosis. Ventricles are normal. Cerebral volume is age appropriate. No depressed calvarial fracture. Visualized orbits are unremarkable. Mucosal thickening of a left posterior ethmoid air cell. Impression No acute intracranial hemorrhage or mass effect. XR CHEST 1 VW Narrative EXAM: XR CHEST 1 VW HISTORY: 79 years-old; Male; ACough, SOB, Wheezing COMPARISON: 03/25/2015 radiograph FINDINGS: Left-sided AICD with leads terminating in right atrium, right ventricle and coronary sinus. Lungs/Pleura: Multifocal airspace and interstitial opacities are noted. There is no pleural effusion or pneumothorax. Heart/Mediastinum: The cardiomediastinal silhouette is enlarged, unchanged. No acute osseous structure abnormality. Impression Multifocal interstitial and airspace opacities are concerning for bronchopneumonia. These findings can also be seen with atypical infectious process, including COVID-19 pneumonia. Disclaimer: Generally, the findings on chest imaging in COVID-19 are not specific, and overlap with other infections, including influenza, H1N1, SARS and MERS. According to the Centers for Disease Control (CDC) and recent statement of the [employer], viral testing remains the only specific method of diagnosis. Confirmation with the viral test is required, even if radiologic findings are suggestive of COVID-[address] Preliminary Report Dictated by Resident: Ming Bradley MD., have reviewed this study and agree with the above report. MEDICATIONS: I reviewed the current inpatient medications ordered Current Facility-Administered Medications Medication Dose Route Frequency Last Rate Last Dose acetaminophen (TYLENOL) tablet 650 mg 650 mg Oral Q6HPRN ascorbic acid (vitamin C) (VITAMIN C) tablet 500 mg 500 mg Oral TID aspirin chewable tablet 81 mg 81 mg Oral DAILY atorvastatin (LIPITOR) tablet 40 mg 40 mg Oral QHS cholecalciferol (vitamin D3) tablet 1,000 Units 1,000 Units Oral BID dextrose 50 % in water (D50W) injection 25 mL 25 mL Slow IV Push PRN docusate (COLACE) capsule 100 mg 100 mg Oral BID furosemide (LASIX) injection 40 mg 40 mg IV Push Q8H 40 mg at 05/30/20 0604 glucagon (GLUCAGEN DIAGNOSTIC KIT) injection 1 mg 1 mg Intramuscular PRN heparin (porcine) injection 5,000 Units 5,000 Units Subcutaneous Q8H 5,000 Units at 05/30/20 0604 levoFLOXacin in D5W (LEVAQUIN) 750 mg/150 mL Piggyback 750 mg 750 mg IV Piggyback Q24H ABX 750 mg at 05/30/20 0223 metoprolol tartrate (LOPRESSOR) tablet 25 mg 25 mg Oral BID ondansetron (ZOFRAN (PF)) injection 4 mg 4 mg Slow IV Push Q6HPRN primidone (MYSOLINE) tablet 250 mg 250 mg Oral Q6H sacubitriL-valsartan (ENTRESTO) 97-103 mg tablet 1 tablet 1 tablet Oral BID Sliding Scale Insulin - Aspart (NOVOLOG) + Fsbg Testing Subcutaneous TID MEALS+HS [START ON 05/31/2020] sodium ferric gluconate (FERRLECIT) 125 mg in NaCl 0.9% (NS) 100 mL IV piggyback 125 mg IV Piggyback DAILY zinc sulfate (ORAZINC) capsule 220 mg 220 mg Oral BID Sundar Wheat RN - 05/30/2020 10:53 AM CDTCare Management Social Functional Assessment Patient Name: Enma Cat Age: [age] year old Sex: male Patient's Previous Admission Date at [facility]: 03/25/2015 Current diagnosis and co-morbidities: Acute on chronic congestive heart failure NSTEMI (non-ST elevated myocardial infarction) Readmission Questions: Was patient discharged from any acute care hospital within the last 30 days: Yes(DC'd from [facility] on 05/29/20) Were all questions regarding previous [...] non-compliant with the previously recommended treatment: No Social Functional Assessment: Primary language spoken/preferred: Ugandan Mental Status: Alert & Oriented to Person Information given by: Child Name and phone number of person giving information: Matt Cat son [phone] Patient's support system: Child;Spouse Name and number of support system: Matt Cat son [phone], Jing Cat [phone] Primary Engraver Tender: Self MPOA: Same as support system Living Arrangement: Apartment Address of living arrangement : [address] [place] [address] Persons living in home: Same as support system Barriers to returning home: Declining function Baseline functional status- ambulation: Independent Functional status-baseline personal care: Independent Baseline functional status- driving: Independent Baseline functional status- grocery shopping: Independent Functional status-baseline housekeeping: Independent Functional status-baseline meal prep: Independent Current functional status same as prior: No Current functional status- ambulation: Requires minimal to moderate assistance Current functional status- personal care: Dependent Current functional status- driving: Dependent Current functional status- grocery shopping: Dependent Current functional status-house keeping: Dependent Current functional status- meal preparation: Dependent Do you have a PCP?: Yes Name of PCP: Dr Hernandez in Home Health Care Agency: Yes Name of Home Health Agency: [address] [place] [address] () [phone] (F) [phone] Previous or current Home Health Care Agency: Current Provider Services: No DME Company: No Equipment: Rollator Hemodialysis: No Funding Resources: Medicare Replacement Medicare Replacement name and information: [employer] Prescription coverage plan: Medicare Part D Pharmacy where meds are filled: ([facility] [place] Anticipated services prior to disharge: Continue Medical Eval Expected mode of discharge transportation: Same as support system Additional info required for discharge planning: Pending medical evaluation;Pending P/T O/T recommendation Recommended discharge plan: New placement SFA Complete: Social Functional Assessment complete: Yes Alcohol Use Screening (AUDIT-C) How often do you have a drink containing alcohol?: Never SCORE: 0 Role of Care Management explained. Yes Any issues or concerns with obtaining/affording your medications at home: no. 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 Describe: Sundar Porter RN, BSN [facility] ADC Management And Budget Analyst [phone] . documented in this encounter H&P Notes Arben Julien MD - 05/29/2020 11:00 PM CDT General Internal Medicine Admission History & Physical CHIEF COMPLAINT: confusion, dyspnea History of Present Illness 79 y/o male 2-3 weeks ago started having weakness, decreased ambulation, fell and went to [facility] two days ago. He was discharged today and came straight to [facility] ER because family feltpatient was unsafe for home. Patient is confused and poor historian. Cannot get proper history or ROS due to acute medical condition. He reports fatigue, fevers/chills, dyspnea, cough. Denies chest pain. No recent travel, no sick contact, no covid exposure. Patient was discharged with levaquin from [facility]. PMHx significant for: CAD, s/p PPM, follows Dr. 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, on chronic steroid Past Surgical History: Procedure Laterality Date PACEMAKERS Family History Problem Relation Age of Onset Diabetes Mother ALLERGIES No Known Allergies MEDICATIONS Current Discharge Medication List STOP taking these medications amlodipine-valsartan (EXFORGE) 10-320 mg per tablet Comments: Reason for Stopping: atorvastatin (LIPITOR) 20 mg tablet Comments: Reason for Stopping: Insulin Glargine (LANTUS SOLOSTAR) 100 unit/mL (3 mL) injection Comments: Reason for Stopping: blood sugar diagnostic (ACCU-CHEK ACTIVE TEST) strip Comments: Reason for Stopping: Lancets (ACCU-CHEK SOFTCLIX LANCETS) Misc Comments: Reason for Stopping: Blood-Glucose Meter (ACCU-CHEK RUBI) Misc Comments: Reason for Stopping: EXFORGE 10-320 mg per tablet Comments: Reason for Stopping: CALCIUM CARBONATE/VITAMIN D3 (VITAMIN D-3 ORAL) Comments: Reason for Stopping: MULTIVITAMIN W-MINERALS/LUTEIN (CENTRUM SILVER ORAL) Comments: Reason for Stopping: Cyanocobalamin (VITAMIN B-12) 2,500 mcg Subl Comments: Reason for Stopping: FERROUS FUMARATE (IRON ORAL) Comments: Reason for Stopping: magnesium oxide (MAG-OX 400) 400 mg tablet Comments: Reason for Stopping: primidone (MYSOLINE) 50 mg tablet Comments: Reason for Stopping: ASPIRIN 81 MG ORAL CHEW Comments: Reason for Stopping: SOCIAL HISTORY Social History Socioeconomic History Marital status: Spouse name: Not on file Number of children: Not on file Years of education: Not on file Highest education level: Not on file Occupational History Not on file Social Needs Financial resource strain: Not on file Food insecurity Worry: Not on file Inability: Not on file Transportation needs Medical: Not on file Non-medical: Not on file Tobacco Use Smoking status: Never Smoker Smokeless tobacco: Never Used Tobacco comment: quit 30 years ago Substance and Sexual Activity Alcohol use: Yes Comment: 3 drinks (vodka) nightly Drug use: No Sexual activity: Not on file Lifestyle Physical activity Days per week: Not on file Minutes per session: Not on file Stress: Not on file Relationships Social connections Talks on phone: Not on file Gets together: Not on file Attends congregational service: Not on file Active member of club or organization: Not on file Attends meetings of clubs or organizations: Not on file Relationship status: Not on file Intimate partner violence Fear of current or ex partner: Not on file Emotionally abused: Not on file Physically abused: Not on file Forced sexual activity: Not on file Other Topics Concern Not on file Social History Narrative Retired, lives with in [place]. REVIEW OF SYSTEMS Unable to get proper ROS due to acute medical condition PHYSICAL EXAMINATION Vitals: 05/29/20 2100 05/29/20 2200 05/29/20 2246 05/29/20 2300 BP: (!) 164/101 138/82 (!) 152/83 (!) 148/88 Pulse: 123 84 81 77 Resp: 27 22 20 Temp: TempSrc: SpO2: 100% 97% 100% 100% Weight: Lying, normal built, in mild distress Anicteric sclera, oral mucosa clear Tachypneic, wheezing b/l, has good air entry b/l Tachycardia, reg rhythm, nl s1s2 Abd soft NT Mild lower ext edema, no calf tenderness AAO to self and maybe to place, confused, moving all extremities , no gross deficits Skin warm and dry Bilateral knees inspected and palpated and is not red or swollen LABS - reviewed pertinent labs as below: CBC BMP PT/INR WBC x10^3 (/uL) Date Value 01/22/2015 5.1 WBC (10*3/L) Date Value 05/29/2020 6.35 NA Date Value 05/29/2020 135 mmol/L 01/22/2015 136 MMOL/L No results found for: PT RBC x10^6 (/uL) Date Value 01/22/2015 3.65 (L) RBC (10*6/L) Date Value 05/29/2020 3.31 (L) K Date Value 05/29/2020 4.0 mmol/L 01/22/2015 4.8 MMOL/L INR-LC (no units) Date Value 01/16/2014 1.0 INR (no units) Date Value 03/25/2015 1.0 PLT x10^3 (/uL) Date Value 01/22/2015 172 PLT (10*3/L) Date Value 05/29/2020 162 CALCIUM Date Value 05/29/2020 9.5 mg/dL 01/22/2015 9.9 MG/DL HGB Date Value 05/29/2020 10.6 g/dL (L) 01/22/2015 11.6 G/DL (L) CL Date Value 05/29/2020 98 mmol/L 01/22/2015 101 MMOL/L aPTT HCT (%) Date Value 05/29/2020 30.4 (L) 01/22/2015 33.2 (L) BUN Date Value 05/29/2020 27 mg/dL (H) 01/22/2015 23 MG/DL APTT Patient (Seconds) Date Value 03/25/2015 36 CREATININE Date Value 05/29/2020 1.51 mg/dL (H) 01/22/2015 1.37 MG/DL (H) IMAGING - reviewed, pertinent results as below: Hospital Encounter on 05/29/20 CT HEAD WO CONTRAST Narrative CT HEAD WO CONTRAST HISTORY: Altered mental status (AMS), unclear cause COMPARISON: None available. TECHNIQUE: Routine unenhanced brain CT. FINDINGS: No acute intracranial hemorrhage, extracerebral fluid collection, midline shift or mass effect. No acute transcortical infarction. Trace intracranial atherosclerosis. Ventricles are normal. Cerebral volume is age appropriate. No depressed calvarial fracture. Visualized orbits are unremarkable. Mucosal thickening of a left posterior ethmoid air cell. Impression No acute intracranial hemorrhage or mass effect. XR CHEST 1 VW Narrative EXAM: XR CHEST 1 VW HISTORY: 79 years-old; Male; ACough, SOB, Wheezing COMPARISON: 03/25/2015 radiograph FINDINGS: Left-sided AICD with leads terminating in right atrium, right ventricle and coronary sinus. Lungs/Pleura: Multifocal airspace and interstitial opacities are noted. There is no pleural effusion or pneumothorax. Heart/Mediastinum: The cardiomediastinal silhouette is enlarged, unchanged. No acute osseous structure abnormality. Impression Multifocal interstitial and airspace opacities are concerning for bronchopneumonia. These findings can also be seen with atypical infectious process, including COVID-19 pneumonia. Disclaimer: Generally, the findings on chest imaging in COVID-19 are not specific, and overlap with other infections, including influenza, H1N1, SARS and MERS. According to the Centers for Disease Control (CDC) and recent statement of the [employer], viral testing remains the only specific method of diagnosis. Confirmation with the viral test is required, even if radiologic findings are suggestive of COVID-[address]. Preliminary Report Dictated by Resident: Ming Bradley MD., have reviewed this study and agree with the above report. EKG: paced ASSESSMENT/PLAN Enma Cat is a 79 y/o male 2-3 weeks ago started having weakness, decreased ambulation, fell and went to [facility] two days ago. He was discharged today and came straight to [facility] ER because family felt patient was unsafe for home. Patient is confused and poor historian. Cannot get proper history or ROS due to acute medical condition. He reports fatigue, fevers/chills, dyspnea, cough. Denies chest pain. No recent travel, no sick contact, no covid exposure. Patient was discharged with levaquin from [facility]. PMHx significant for: CAD, s/p PPM, follows Dr. Arenas Type 2 DM, not insulin anymore Hypertension CVA Home medication list reviewed on phone with son but still unclear list. Doses read over the phone byfamily: Lasix 40 mg BID Metoprolol 25 mg BID Primidone 250 mg QID entresto 97 mg/103 mg 1 tab BID levaquin started on discharge # Acute respiratory distress # Sepsis # toxic metabolic encephalopathy. CT head done on admission no acute pathology # multifocal pneumonia # fevers, tachycardia # NSTEMI likely stype 2 # acute CHF exacerbation, likely systolic but unclear # COLIN on CKD 3, f/u uric acid, ck # anemia, work up ordered including b12, ferritin, occult blood, iron panel - full admission IMU Neuro checks q2h x 2 days Fall/aspiration precautions PT consult, SW consult, likely will need placement on discharge F/u procal, legionella, strep pneum, mycoplasma, respiratory panel, blood cutlure x 2, urine culture COVID rapid negative in [place] ER and also negative in [place] per family. Will recheck COVID pcr, continue with isolation until then F/u tsh, b12, A1c, mag, phos, uric acid, ck IV levaquin 750 mg qd, day 1 Please consider decrease dose to 500 mg qd depending on renal function ID consult Dr. Brown Strict i/o, daily weight, fluid restrictions Trend troponins, telemetry F/u echo Cardiology consult Dr. Strange Nephrology consult Dr. 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 Julien were confusion, dyspnea. 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 Julien's progress note dated 05/31/2020 and additional EPIC documentation for anunderstanding of the patient's current medical condition and plan of care. GI and Nutrition Related Findings: Symptoms: N/A Difficulty: Swallowing GI tract alteration: N/A Alternative means of nutrition: N/A General: Wounds (eg. Vascular, Diabetic, Burn, Pressure) Medications: I have reviewed the medications currently ordered in the EMR located under the medications andMAR tabs. Current medications include: Current Facility-Administered Medications: ferrous sulfate tablet 325 mg, 325 mg, Oral, BID MEALS, Rufus Goodwin MD, 325 mg at 06/01/20 0847 furosemide (LASIX) injection 40 mg, 40 mg, IV Push, DAILY, Donna Prasad MD, 40 mg at 06/01/20 0847 haloperidol lactate (HALDOL) injection 5 mg, 5 mg, Slow IV Push, QHSPRN, Arben Julien MD, 5 mg at 05/31/202115 piperacillin-tazobactam (ZOSYN) 2.25 g/50 mL RTU, 2.25 g, IV Piggyback, Q6H ABX, Rufus Goodwin MD,2.25 g at 06/01/20 0135 acetaminophen (TYLENOL) tablet 650 mg, 650 mg, Oral, Q6HPRN, Arben Julien MD, 650 mg at 05/31/20 0554 ascorbic acid (vitamin C) (VITAMIN C) tablet 500 mg, 500 mg, Oral, TID, Arben Julien MD, 500mg at 06/01/20 0847 aspirin chewable tablet 81 mg, 81 mg, Oral, DAILY, Arben Julien MD, 81 mg at 06/01/20 0846 atorvastatin (LIPITOR) tablet 40 mg, 40 mg, Oral, QHS, Arben Julien MD, 40 mg at 05/31/20 2023 cholecalciferol (vitamin D3) tablet 1,000 Units, 1,000 Units, Oral, BID, Arben Julien MD, 1,000 Units at 06/01/20 0847 dextrose 50 % in water (D50W) injection 25 mL, 25 mL, Slow IV Push, PRN, Arben Julien MD docusate (COLACE) capsule 100 mg, 100 mg, Oral, BID, Arben Julien MD, 100 mg at 06/01/20 0847 glucagon (GLUCAGEN DIAGNOSTIC KIT) injection 1 mg, 1 mg, Intramuscular, PRN, Arben Julien MD heparin (porcine) injection 5,000 Units, 5,000 Units, Subcutaneous, Q8H, Arben Julien MD, 5,000 Units at 06/01/20 0509 levoFLOXacin in D5W (LEVAQUIN) 750 mg/150 mL Piggyback 750 mg, 750 mg, IV Piggyback, Q24H ABX, Arben Julien MD, 750 mg at 06/01/20 0135 metoprolol tartrate (LOPRESSOR) tablet 25 mg, 25 mg, Oral, BID, Arben Julien MD, 25 mg at 06/01/20 0847 ondansetron (ZOFRAN (PF)) injection 4 mg, 4 mg, Slow IV Push, Q6HPRN, Arben Julien MD primidone (MYSOLINE) tablet 250 mg, 250 mg, Oral, Q6H, Arben Julien MD, 250 mg at 06/01/20 0508 sacubitriL-valsartan (ENTRESTO) 97-103 mg tablet 1 tablet, 1 tablet, Oral, BID, Arben Julien MD, 1 tablet at 06/01/20 0845 Sliding Scale Insulin - Aspart (NOVOLOG) + Fsbg Testing, , Subcutaneous, TID MEALS+HS, Arben Julien MD, Stopped at 05/30/20 0800 sodium ferric gluconate (FERRLECIT) 125 mg in NaCl 0.9% (NS) 100 mL IV piggyback, 125 mg, IV Piggyback, DAILY, Helena Bryan MD, 125 mg at 06/01/20 0847 vancomycin (VANCOCIN) 1,000 mg in NaCl 0.9% (NS) 250 mL VIAL-MATE IV piggyback, 15 mg/kg, IV Piggyback, Q24H ABX, Rufus Goodwin MD, 1,000 mg at 05/31/20 1203 zinc sulfate (ORAZINC) capsule 220 mg, 220 mg, Oral, BID, Arben Julien MD, 220 mg at 06/01/20 0847 Lab and Medical Test Results: CMP NA Date Value 06/01/2020 136 mmol/L 01/22/2015 136 MMOL/L K Date Value 06/01/2020 3.9 mmol/L 01/22/2015 4.8 MMOL/L CALCIUM Date Value 06/01/2020 9.5 mg/dL 01/22/2015 9.9 MG/DL CL Date Value 06/01/2020 97 mmol/L (L) 01/22/2015 101 MMOL/L BUN Date Value 06/01/2020 34 mg/dL (H) 01/22/2015 23 MG/DL CREATININE Date Value 06/01/2020 1.81 mg/dL (H) 01/22/2015 1.37 MG/DL (H) GLUCOSE Date Value 06/01/2020 112 mg/dL (H) 01/22/2015 95 MG/DL CO2 TOTAL Date Value 06/01/2020 30 mmol/L 01/22/2015 28 MMOL/L ALBUMIN Date Value 06/01/2020 3.2 g/dL (L) 01/22/2015 3.8 G/DL T PROTEIN Date Value 06/01/2020 6.2 g/dL (L) 01/22/2015 6.3 G/DL TOTAL BILI Date Value 06/01/2020 0.5 mg/dL 01/22/2015 0.3 MG/DL ALT(SGPT) (U/L) Date Value 01/28/2016 24 01/22/2015 29 ALTv (U/L) Date Value 06/01/2020 32 AST(SGOT) (U/L) Date Value 06/01/2020 38 01/22/2015 20 ALK PHOS (U/L) Date Value 06/01/2020 58 01/22/2015 58 CBC WBC x10^3 (/uL) Date Value 01/22/2015 5.1 WBC (10*3/L) Date Value 06/01/2020 3.23 (L) RBC x10^6 (/uL) Date Value 01/22/2015 3.65 (L) RBC (10*6/L) Date Value 06/01/2020 2.75 (L) PLT x10^3 (/uL) Date Value 01/22/2015 172 PLT (10*3/L) Date Value 06/01/2020 131 (L) HGB Date Value 06/01/2020 8.9 g/dL (L) 01/22/2015 11.6 G/DL (L) HCT (%) Date Value 06/01/2020 25.3 (L) 01/22/2015 33.2 (L) Results for ENMA CAT ( ) as of 06/01/2020 12:23 Ref. Range 05/31/2020 19:42 06/01/2020 05:14 06/01/2020 08:18 POCT GLU Latest Ref Range: 70 - 110 mg/dL 124 (H) 109 Intake/Output Summary (Last 24 hours) at 06/01/2020 1208 Last data filed at 06/01/2020 1100 Gross per 24 hour Intake 600 ml Output 1670 ml Net -1070 ml Nutrition Assessment: Age: [age] year old Sex: male Ht: 1.651m / 5'5" Ht Readings from Last 3 Encounters: 05/30/20 1.651 m (5' 5") 03/25/15 1.702 m (5' 7") 01/22/15 1.702 m (5' 7") Current Wt: 65 kg/ 143.4 lb BMI: Body mass index is 23.85 kg/m. (Normal) IBW for Ht: 65.5 kg +/- 6.5 kg %IBW: 99% Weight History: Wt Readings from Last 10 Encounters: 05/31/20 65 kg (143 lb 4.8 oz) 01/28/16 74.4 kg (164 lb 1.6 oz) 03/25/15 68 kg (149 lb 14.4 oz) 01/22/15 72.5 kg (159 lb 12.8 oz) 01/16/14 79.2 kg (174 lb 8 oz) 10/17/13 80.6 kg (177 lb 11.2 oz) 04/13/13 86.2 kg (190 lb 1.6 oz) 01/02/13 87.9 kg (193 lb 12.8 oz) 10/03/12 91.6 kg (202 lb) 04/28/12 89.8 kg (198 lb) Inflammatory Markers: N/A Current Dietary Order(s): Cardiac (2 gm Sodium, Low Fat, Low Cholesterol) Diet; Texture: Regular. EMR documented food allergies/intolerance/cultural preferences: [facility] Nutrition & Diet History: Unable to speak with patient at this time. Noted trouble swallow and seen by [employer]INT[employer] who recommend regular texture diet, nectar thick liquids, and swallow precaution as well as MBSS. PO intake 25-50% per flowsheet. No recent weight history from the last year on file. No BM documented on flowsheet yet. Estimated Daily Nutritional Needs: Calories: 5147-6319 kcal/day (MSJ*1.2-1.3)= 24-26 kcal/kg current wt = 24-26 kcal/kg IBW Protein: 78-85 g/day =1.2-1.3 g/kg current wt = 1.2-1.3 g/kg IBW Carbohydrate: 50 % of kcal need/day = 195-212 g/day = 13-14 choices Fluid: 1500 mL/day or per MD; adjust per acute needs Nutrition Diagnosis: 1. Inadequate oral intake related to decreased ability to consume as evidenced by PO intake 25-50% per flowsheet Nutrition Plan of Care: Intervention(s): 1. Continue current diet per MD 2. Recommend SUPER[employer] recommendations: Recommend patient be downgraded to a regular- textured diet with nectar-thick liquids and swallow precautions: sit fully upright/chair, small single sips/bites, no straws, crush pills and mix with pudding with MD approval and remain upright for 30 minutes after meals - pending MBSS to rule out aspiration 3. Recommend Glucerna PO supplementation with appropriate thickeners BID to help meet nutrition needs 3. MVI supplementation per MD discretion 4. Monitor PO intake, weight, GI function, labs Goal(s): 1. Patient will maintain adequate oral intake of at least 50% of meals and 100% of oral nutrition supplement. D/C Planning: Cardiac diet, regular diet texture with nectar thick liquids, pending MBSS, Glucerna PO supplements Nutrition Monitoring and Evaluation: A registered dietitian will f/u as indicated to report nutrition related information and to revise the recommended nutrition intervention(s); please call with questions or concerns, thank-you. SOFYA GARCIA RDN, [facility] Clinical Dietitian (for hospital use only) Josh Woods DO - 05/31/2020 11:56 AM CDTAssociated Order(s): CONSULT NEPHROLOGYPlease see the nephrology consult by Dr. Leavitt in the chart. Sharri Bautista PT - 05/30/2020 3:45 PM CDTAssociated Order(s): CONSULT ADULT PHYSICAL THERAPY 05/30/2020 Patient agreeable to working with physical therapy. Patient met Semi reclined in bed, with B/L wrist restraints . PHYSICAL THERAPY EVALUATION Consult received, chart reviewed and evaluation complete this date. Patient is referred to PT for evaluation and treatment. Patient is a 79 year old male who presents to hospital for Acute on chronic congestive heart failure NSTEMI (non-ST elevated myocardial infarction). Discharge Recommendations: Therapy Needs and Potential: decline in transfers and decline in gait and/or balance Challenges to Home Transition: increased risk of falls decreased safety awareness Equipment recommendations: rolling walker Current Functional Status and/or Treatment:Functional mobility training, Transfer training, Gait training and Patient/Family/Caregiver education Bed Mobility: Rolling: Independent Supine-sit: SBA/Setup Sitting balance Good Sit to supine: SBA/Setup. Transfers: Sit to stand: CGA using Rolling Walker Stand to sit: CGA using Rolling Walker, Ambulation: Assisted patient with ambulation as follows: 25 feet using Rolling Walker and CGA. After session, patient Semi reclined in bed and restraints were placed on both wrists. Call button provided. RN notified of status. PLAN OF CARE: At least 3 times per week, once or twice a day (while in hospital) per patient's tolerance and medical needs. See below for complete details. 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 Pt said thathe wanted to get the wrist restraints removed. Patient/Family Goals: To be able to go back home Patient/Family verbalizes understanding of condition: Yes PAIN: denies pain COMMUNICATION Primary Language: Ug[place] Able to Verbalize needs: Yes Vision:good; no issues reported Hearing:good; no issues reported ORIENTATION/COGNITION: Oriented to: person, place and situation Awake: Yes Alert: Yes Dizzy: No Follows Commands: Yes 1-Step Yes Multi-Step No Inconsistent: No NEUROLOGICAL Light Touch: within functional limits bilateral LE, Tone: WFL BALANCE: Sitting: Static: Good Dynamic: Good Standing: Static: Good Dynamic: Good RANGE OF MOTION: within functional limits bilateral LE, STRENGTH: 4-/5 (G-), bilateral LE ENDURANCE: Good, Pt was initially wearing a nasal cannula but it was removed for gait training SKIN INTEGRITY: Yes, see RN notes PROBLEM LIST: Decline in gait, Decline in transfers, Decreased strength, Decreased balance and Safety awareness deficits ASSESSMENT: Patient is a 79 year old male seen secondary to the above listed diagnosis. Pt needed constant verbal cueing to be stay alert and to follow directions but was able to perform the tasks thatwere asked. Pt did not have any increased pain with activities. Pt was able to stand up from toilet i ndependently but is still a fall risk. Patient would benefit from continued PT to address the above listed deficits to maximize independence and safety with functional mobility. Rehabilitation Potential: good Goals: The following goals are to maximize independence and safety with functional mobility to eventually return to prior living situation and prior functional status. Upon discharge, patient and/or family will demonstrate the followin. Sit to stand: Modified independent using Rolling Walker Stand to sit: Modified independent using Rolling Walker 2. Modified independent with ambulation, Feet: 150 using least assistive device. 3. Demonstrate or verbalize understanding of home exercise program in order to continue with their rehab on their own. Treatment Plan: Gait training, Therapeutic exercise, Transfer training, Balance training and Safety education, patient/caregiver education PATIENT EDUCATION: Patient provided with preferred teaching of verbal information and demonstration on role of PT, plan of care, and goals. Barriers to learning include cognitive limitations. Verbal instruction teaching provided. Individual is able to read and accurately returns demonstration of skill, needs reinforcement of teaching and Indicates understanding of teaching provided. Total Time Tx Codes in Minutes: 20 min Total Treatment Time in Minutes: 26 min Required Components in Determining Evaluation Level Components for Eval Level Low Moderate High History No comorbidities 1-2 comorbidities or personal factors 3 or more comorbidities or personal factors X Body Systems 1-2 elements X 3 or more elements 4 or more elements Clinical Presentation Stable X Evolving Unstable Clinical Decision Making X Rodo Hartman, SPT Sharri Kim, PT [place] PT License [id number] [facility] Rehabilitation Services Department (phone) (fax) Azalea Ruiz, SRIDHAR - 05/30/2020 1:36 PM CDTAssociated Order(s): CONSULT INTEGRATION DIRECTOR-ADULTCM spoke with patient and he prefers [facility]. Referral has been submitted. Awaiting insurance authorization. Gregoria MA: [phone] SRIDHAR Javier Para Operator - Care Management [facility] [phone] [email or web address] Melecio Shaver FNP - 05/30/2020 12:09 PM CDTAssociated Order(s): CONSULT INFECTIOUS DISEASE Subjective: Patient is a 79 year old male who was recently admitted to [facility] with weakness and falls. He was discharged and brought straight to [facility] by the family because they felt it was unsafe for him to go hoe. Patient with altered mental status and weakness, found to have possible pneumonia which I have been consulted for. [phone] (home) Past Surgical History: Procedure Laterality Date PACEMAKERS Social History Socioeconomic History Marital status: Spouse name: Not on file Number of children: Not on file Years of education: Not on file Highest education level: Not on file Occupational History Not on file Social Needs Financial resource strain: Not on file Food insecurity Worry: Not on file Inability: Not on file Transportation needs Medical: Not on file Non-medical: Not on file Tobacco Use Smoking status: Never Smoker Smokeless tobacco: Never Used Tobacco comment: quit 30 years ago Substance and Sexual Activity Alcohol use: Yes Comment: 3 drinks (vodka) nightly Drug use: No Sexual activity: Not on file Lifestyle Physical activity Days per week: Not on file Minutes per session: Not on file Stress: Not on file Relationships Social connections Talks on phone: Not on file Gets together: Not on file Attends congregational service: Not on file Active member of club or organization: Not on file Attends meetings of clubs or organizations: Not on file Relationship status: Not on file Intimate partner violence Fear of current or ex partner: Not on file Emotionally abused: Not on file Physically abused: Not on file Forced sexual activity: Not on file Other Topics Concern Not on file Social History Narrative Retired, lives with in [place]. Family History Problem Relation Age of Onset Diabetes Mother No Known Allergies Current Facility-Administered Medications: acetaminophen (TYLENOL) tablet 650 mg, 650 mg, Oral, Q6HPRN, Arben Julien MD ascorbic acid (vitamin C) (VITAMIN C) tablet 500 mg, 500 mg, Oral, TID, Arben Julien MD, Stopped at 05/30/20 0800 aspirin chewable tablet 81 mg, 81 mg, Oral, DAILY, Arben Julien MD, Stopped at 05/30/20 0900 atorvastatin (LIPITOR) tablet 40 mg, 40 mg, Oral, QHS, Arben Julien MD cholecalciferol (vitamin D3) tablet 1,000 Units, 1,000 Units, Oral, BID, Arben Julien MD, Stopped at 05/30/20 0800 dextrose 50 % in water (D50W) injection 25 mL, 25 mL, Slow IV Push, PRN, Arben Julien MD docusate (COLACE) capsule 100 mg, 100 mg, Oral, BID, Arben Julien MD, Stopped at 05/30/20 0800 furosemide (LASIX) injection 40 mg, 40 mg, IV Push, Q8H, Arben Julien MD, 40 mg at 05/30/20 0604 glucagon (GLUCAGEN DIAGNOSTIC KIT) injection 1 mg, 1 mg, Intramuscular, PRN, Arben Julien MD heparin (porcine) injection 5,000 Units, 5,000 Units, Subcutaneous, Q8H, Arben Julien MD, 5,000 Units at 05/30/20 0604 levoFLOXacin in D5W (LEVAQUIN) 750 mg/150 mL Piggyback 750 mg, 750 mg, IV Piggyback, Q24H ABX, Arben Julien MD, 750 mg at 05/30/20 0223 metoprolol tartrate (LOPRESSOR) tablet 25 mg, 25 mg, Oral, BID, Arben Julien MD, Stopped at 05/30/20 0800 ondansetron (ZOFRAN (PF)) injection 4 mg, 4 mg, Slow IV Push, Q6HPRN, Arben Julien MD primidone (MYSOLINE) tablet 250 mg, 250 mg, Oral, Q6H, Arben Julien MD, Stopped at 05/30/20 0800 sacubitriL-valsartan (ENTRESTO) 97-103 mg tablet 1 tablet, 1 tablet, Oral, BID, Arben Julien MD, Stopped at 05/30/20 0800 Sliding Scale Insulin - Aspart (NOVOLOG) + Fsbg Testing, , Subcutaneous, TID MEALS+HS, Arben Julien MD, Stopped at 05/30/20 0800 [START ON 05/31/2020] sodium ferric gluconate (FERRLECIT) 125 mg in NaCl 0.9% (NS) 100 mL IV piggyback, 125 mg, IV Piggyback, DAILY, Helena Bryan MD vancomycin (VANCOCIN) 1,000 mg in NaCl 0.9% (NS) 250 mL VIAL-MATE IV piggyback, 15 mg/kg, IV Piggyback, Q24H ABX, Rufus Goodwin MD zinc sulfate (ORAZINC) capsule 220 mg, 220 mg, Oral, BID, Arben Julien MD, Stopped at 05/30/20 0800 Objective: Vitals: 05/30/20 0833 05/30/20 0900 05/30/20 1000 05/30/20 1200 BP: (!) 169/83 Pulse: 95 Resp: 23 Temp: 37.3 C (99.1 F) 36.9 C (98.5 F) TempSrc: Axillary Axillary SpO2: 100% 98% Weight: Height: CBC WBC x10^3 (/uL) Date Value 01/22/2015 5.1 WBC (10*3/L) Date Value 05/30/2020 5.43 RBC x10^6 (/uL) Date Value 01/22/2015 3.65 (L) RBC (10*6/L) Date Value 05/30/2020 2.93 (L) PLT x10^3 (/uL) Date Value 01/22/2015 172 PLT (10*3/L) Date Value 05/30/2020 145 (L) HGB Date Value 05/30/2020 9.5 g/dL (L) 01/22/2015 11.6 G/DL (L) HCT (%) Date Value 05/30/2020 26.9 (L) 01/22/2015 33.2 (L) CMP NA Date Value 05/30/2020 135 mmol/L 01/22/2015 136 MMOL/L K Date Value 05/30/2020 4.3 mmol/L 01/22/2015 4.8 MMOL/L CALCIUM Date Value 05/30/2020 9.4 mg/dL 01/22/2015 9.9 MG/DL CL Date Value 05/30/2020 98 mmol/L 01/22/2015 101 MMOL/L BUN Date Value 05/30/2020 29 mg/dL (H) 01/22/2015 23 MG/DL CREATININE Date Value 05/30/2020 1.38 mg/dL (H) 01/22/2015 1.37 MG/DL (H) GLUCOSE Date Value 05/30/2020 127 mg/dL (H) 01/22/2015 95 MG/DL CO2 TOTAL Date Value 05/30/2020 26 mmol/L 01/22/2015 28 MMOL/L ALBUMIN Date Value 05/30/2020 3.7 g/dL 01/22/2015 3.8 G/DL T PROTEIN Date Value 05/30/2020 6.6 g/dL 01/22/2015 6.3 G/DL TOTAL BILI Date Value 05/30/2020 0.9 mg/dL 01/22/2015 0.3 MG/DL ALT(SGPT) (U/L) Date Value 01/28/2016 24 01/22/2015 29 ALTv (U/L) Date Value 05/30/2020 28 AST(SGOT) (U/L) Date Value 05/30/2020 42 (H) 01/22/2015 20 ALK PHOS (U/L) Date Value 05/30/2020 65 01/22/[address] chest 05/30: PROCEDURE: CT CHEST WITHOUT CONTRAST - CHEST PROTOCOL CLINICAL INDICATION:Acute resp illness, > 40 years old COMPARISON: None TECHNIQUE: Helical CT was performed of the chest (lung apices to bases) using 100 mL Omnipaque-350 nonionic intravenous contrast, without complications. Images were reconstructed at 1.25 mm slice thickness. Axial MIPs and coronal and sagittal MPR images were generated and reviewed. (Display [id number] = 35 cm) FINDINGS: Lower neck/thyroid: Unremarkable. Lungs: Centrilobular septal thickening with groundglass attenuating parenchyma. Left lower lobe calcified granuloma. A 0.4 cm noncalcified, solid pulmonary nodule along the horizontal fissure (10:53), likely a pulmonary lymph node. Spiculated subpleural nodule within the right upper lobe (10:37). A 0.9 cm pulmonary nodule in the right lower lobe (10:66), this may represent a focus of pulmonary edema or atelectasis. Left lower lobe nodular opacities measure 0.7 cm, 0.8 cm and 0.6 cm, also may represent foci of pulmonary edema and/or atelectasis. Central airway: Unremarkable. Pleura: Large volume right pleural effusion. Trace volume left pleural effusion. No thickening or pneumothorax. Thoracic aorta and great vessels: Normal in diameter. Pulmonary arteries: Normal in caliber. Heart and pericardium: No detectable coronary artery calcifications. Cardiac megaly. Lymph nodes: Calcified mediastinal and bilateral hilar lymph nodes. Mediastinum: Unremarkable. Thoracic spine and chest wall: Unremarkable, with normal thoracic vertebral body heights. Other Lines/Tubes/Devices/Hardware: Left chest wall pacemaker/AICD with leads terminating in the right ventricle, right atrium, and coronary sinus.. Visualized upper abdomen: Scattered splenic and hepatic calcified granulomas. IMPRESSION 1. Pulmonary edema with moderate volume right and trace volume left pleural effusions. Dilated left ventricle. 2. Scattered pulmonary nodular opacities may represent scattered foci of pulmonary edema and/or atelectasis. However, underlying solid, noncalcified pulmonary nodules cannot be excluded. A follow-up CT chest in 3 6 months recommended document. 3. Calcified intrathoracic lymph nodes with calcified pulmonary, hepatic, and splenic granulomas can be seen with prior granulomatous disease. ROS: General: AOX1, pleasant CV: S1,S2, murmur RESP: Good breath sounds ABD: Nontender, bowel sounds present Extremities: multiple bruises to bilateral upper extremities, no edema Assessment and plan: Fever Pneumonia, CT shows scattered pulmonary nodular opacities, Recommend pulmonary consult and follow upCT Procalcitonin 0.06 Blood and urine cultures pending Levaquin and Vancomycin day 1, recommend to continue until cultures come back Diabetes mellitus, monitor glycemic control Will continue to monitor Thank you for consult Patient discussed with Dr. Kevin Helena Molina MD - 05/30/2020 10:19 AM CDT Nephrology Consult note Reason for consult CKD , fluid overload CC SOB HPI Patient is a poor historian, H obtained from chart A 79 Y/o man with Pmhx of CKD III baseline Cr ~1.4, CHF S/P AICD ,DM and HTN , and CAD Patient presented for Sob, family felt that patient was unsafe to for home Patient was seen recently in [facility] , with no improvement And family brought patient to ER No fever, chills, chest pain, palpitation, nausea or vomiting ROS As in HPI 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, on chronic steroid Past Surgical History: Procedure Laterality Date PACEMAKERS Family History Problem Relation Age of Onset Diabetes Mother Social History Socioeconomic History Marital status: Spouse name: Not on file Number of children: Not on file Years of education: Not on file Highest education level: Not on file Occupational History Not on file Social Needs Financial resource strain: Not on file Food insecurity Worry: Not on file Inability: Not on file Transportation needs Medical: Not on file Non-medical: Not on file Tobacco Use Smoking status: Never Smoker Smokeless tobacco: Never Used Tobacco comment: quit 30 years ago Substance and Sexual Activity Alcohol use: Yes Comment: 3 drinks (vodka) nightly Drug use: No Sexual activity: Not on file Lifestyle Physical activity Days per week: Not on file Minutes per session: Not on file Stress: Not on file Relationships Social connections Talks on phone: Not on file Gets together: Not on file Attends congregational service: Not on file Active member of club or organization: Not on file Attends meetings of clubs or organizations: Not on file Relationship status: Not on file Intimate partner violence Fear of current or ex partner: Not on file Emotionally abused: Not on file Physically abused: Not on file Forced sexual activity: Not on file Other Topics Concern Not on file Social History Narrative Retired, lives with in [place]. No Known Allergies Current Discharge Medication List STOP taking these medications amlodipine-valsartan (EXFORGE) 10-320 mg per tablet Comments: Reason for Stopping: atorvastatin (LIPITOR) 20 mg tablet Comments: Reason for Stopping: Insulin Glargine (LANTUS SOLOSTAR) 100 unit/mL (3 mL) injection Comments: Reason for Stopping: blood sugar diagnostic (ACCU-CHEK ACTIVE TEST) strip Comments: Reason for Stopping: Lancets (ACCU-CHEK SOFTCLIX LANCETS) Misc Comments: Reason for Stopping: Blood-Glucose Meter (ACCU-CHEK RUBI) Misc Comments: Reason for Stopping: EXFORGE 10-320 mg per tablet Comments: Reason for Stopping: CALCIUM CARBONATE/VITAMIN D3 (VITAMIN D-3 ORAL) Comments: Reason for Stopping: MULTIVITAMIN W-MINERALS/LUTEIN (CENTRUM SILVER ORAL) Comments: Reason for Stopping: Cyanocobalamin (VITAMIN B-12) 2,500 mcg Subl Comments: Reason for Stopping: FERROUS FUMARATE (IRON ORAL) Comments: Reason for Stopping: magnesium oxide (MAG-OX 400) 400 mg tablet Comments: Reason for Stopping: primidone (MYSOLINE) 50 mg tablet Comments: Reason for Stopping: ASPIRIN 81 MG ORAL CHEW Comments: Reason for Stopping: Current Facility-Administered Medications: acetaminophen (TYLENOL) tablet 650 mg, 650 mg, Oral, Q6HPRN, Arben Julien MD ascorbic acid (vitamin C) (VITAMIN C) tablet 500 mg, 500 mg, Oral, TID, Arben Julien MD aspirin chewable tablet 81 mg, 81 mg, Oral, DAILY, Arben Julien MD atorvastatin (LIPITOR) tablet 40 mg, 40 mg, Oral, QHS, Arben Julien MD cholecalciferol (vitamin D3) tablet 1,000 Units, 1,000 Units, Oral, BID, Arben Julien MD dextrose 50 % in water (D50W) injection 25 mL, 25 mL, Slow IV Push, PRN, Arben Julien MD docusate (COLACE) capsule 100 mg, 100 mg, Oral, BID, Arben Julien MD furosemide (LASIX) injection 40 mg, 40 mg, IV Push, Q8H, Arben Julien MD, 40 mg at 05/30/20 0604 glucagon (GLUCAGEN DIAGNOSTIC KIT) injection 1 mg, 1 mg, Intramuscular, PRN, Arben Julien MD heparin (porcine) injection 5,000 Units, 5,000 Units, Subcutaneous, Q8H, Arben Julien MD, 5,000 Units at 05/30/20 0604 levoFLOXacin in D5W (LEVAQUIN) 750 mg/150 mL Piggyback 750 mg, 750 mg, IV Piggyback, Q24H ABX, Arben Julien MD, 750 mg at 05/30/20 0223 metoprolol tartrate (LOPRESSOR) tablet 25 mg, 25 mg, Oral, BID, Arben Julien MD ondansetron (ZOFRAN (PF)) injection 4 mg, 4 mg, Slow IV Push, Q6HPRN, Arben Julien MD primidone (MYSOLINE) tablet 250 mg, 250 mg, Oral, Q6H, Arben Julien MD sacubitriL-valsartan (ENTRESTO) 97-103 mg tablet 1 tablet, 1 tablet, Oral, BID, Arben Julien MD Sliding Scale Insulin - Aspart (NOVOLOG) + Fsbg Testing, , Subcutaneous, TID MEALS+HS, Arben Julien MD zinc sulfate (ORAZINC) capsule 220 mg, 220 mg, Oral, BID, Arben Julien MD BP (!) 154/86 | Pulse 93 | Temp 37.3 C (99.1 F) (Axillary) | Resp 20 | Ht 1.651 m (5' 5") |Wt 66 kg (145 lb 8 oz) | SpO2 100% | BMI 24.21 kg/m Physical exam General: alert, in mild distress, thin Neck Supple, no elevated JVD Chest: decrease air entry B/l Herat: RRR, Normal S1,2 Abd: Soft, NT Extremities: No edmea CBC WBC x10^3 (/uL) Date Value 01/22/2015 5.1 WBC (10*3/L) Date Value 05/30/2020 5.43 RBC x10^6 (/uL) Date Value 01/22/2015 3.65 (L) RBC (10*6/L) Date Value 05/30/2020 2.93 (L) PLT x10^3 (/uL) Date Value 01/22/2015 172 PLT (10*3/L) Date Value 05/30/2020 145 (L) HGB Date Value 05/30/2020 9.5 g/dL (L) 01/22/2015 11.6 G/DL (L) HCT (%) Date Value 05/30/2020 26.9 (L) 01/22/2015 33.2 (L) CMP NA Date Value 05/30/2020 135 mmol/L 01/22/2015 136 MMOL/L K Date Value 05/30/2020 4.3 mmol/L 01/22/2015 4.8 MMOL/L CALCIUM Date Value 05/30/2020 9.4 mg/dL 01/22/2015 9.9 MG/DL CL Date Value 05/30/2020 98 mmol/L 01/22/2015 101 MMOL/L BUN Date Value 05/30/2020 29 mg/dL (H) 01/22/2015 23 MG/DL CREATININE Date Value 05/30/2020 1.38 mg/dL (H) 01/22/2015 1.37 MG/DL (H) GLUCOSE Date Value 05/30/2020 127 mg/dL (H) 01/22/2015 95 MG/DL CO2 TOTAL Date Value 05/30/2020 26 mmol/L 01/22/2015 28 MMOL/L ALBUMIN Date Value 05/30/2020 3.7 g/dL 01/22/2015 3.8 G/DL T PROTEIN Date Value 05/30/2020 6.6 g/dL 01/22/2015 6.3 G/DL TOTAL BILI Date Value 05/30/2020 0.9 mg/dL 01/22/2015 0.3 MG/DL ALT(SGPT) (U/L) Date Value 01/28/2016 24 01/22/2015 29 ALTv (U/L) Date Value 05/30/2020 28 AST(SGOT) (U/L) Date Value 05/30/2020 42 (H) 01/22/2015 20 ALK PHOS (U/L) Date Value 05/30/2020 65 01/22/2015 58 Assessment and plan CKD 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 Cr at baseline Renal dose meds Nephrotic range proteinuria CHF with Rt pleural effusion Continue lasix and entresto DM As per primary team PNA Continue Abx R/O COVID Hypomagnesemia Will replace DONAVAN Will start on IV iron total time spent 50 min Marya Cross SLP - 05/30/2020 9:23 AM CDTAssociated Order(s): CONSULT SPEECH Speech-Language Pathology Clinical Swallow Evaluation 05/30/2020 Enma Cat : 1940 Age: [age] year old Sex: male Referring Physician: Arben Julien MD Date of Referral: 05/30/2020 Reason for Referral: dysphagia Date of Admission/Onset: 05/29/2020 Time IN/OUT: SUBJECTIVE: Patient awake, but disoriented. He was able to respond to questions regarding basic needs. During session, patient attempted to get up and go to the bathroom to urinate. He was stopped and Massey catheter placed. Evaluation resumed once patient was settled. Patient may have expressive aphasia - he had difficulty completing sentences. Unknown baseline language and orientation, chart review reports dysarthria since 05/22/2020. Of note, patient presented with cough before beginning trials. OBJECTIVE: is being seen for a clinical swallow evaluation. Enma Cat is a 79 year old male admitted for confusion and dyspnea with PMH significant for CVA, HTN, DM II, CAD. Pertinent Imaging: Xr Chest 1 Vw Result Date: 05/29/2020 Multifocal interstitial and airspace opacities are concerning for bronchopneumonia. These findings can also be seen with atypical infectious process, including COVID-19 pneumonia. Disclaimer: Generally, the findings on chest imaging in COVID-19 are not specific, and overlap with other infections, including influenza, H1N1, SARS and MERS. According to the Centers for Disease Control (CDC) and recent statement of the [employer], viral testing remains the only specific method of diagnosis. Confirmation with the viral test is required, even if radiologic findings are suggestive of COVID-[address] Preliminary Report Dictated by Resident: Ming Bradley MD., have reviewed this study and agree with the above report. Ct Head Wo Contrast Result Date: 05/29/2020 No acute intracranial hemorrhage or mass effect. Ct Thorax Wo Contrast Result Date: 05/30/2020 1. Pulmonary edema with moderate volume right and trace volume left pleural effusions. Dilated leftventricle. 2. Scattered pulmonary nodular opacities may represent scattered foci of pulmonary edemaand/or atelectasis. However, underlying solid, noncalcified pulmonary nodules cannot be excluded. A follow-up CT chest in 3 6 months recommended document. 3. Calcified intrathoracic lymph nodes with calcified pulmonary, hepatic, and splenic granulomas can be seen with prior granulomatous disease. Preliminary Report Dictated by Resident: Iam Mcguire MD., have reviewed this study and agree with the above report. 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 Unable to assess lingual movement due to decreased ability to follow instructions Respiratory Status: nasal cannula: 2 L/min Orientation/Cognition: - Patient oriented to: person - Response type: verbal - If verbal, describe speech: slurred - Follows 1-step commands: Inconsistently CLINICAL SWALLOW EVALUATION Current Diet Texture/Means of Nutrition: Regular diet, thin liquids Swallows on command: No Handles Secretions: Yes Volitional Cough: No Spontaneous Cough: Yes PO trials were administered by patient. Patient was provided with multiple bites/sips of thin liquids, nectar-thick liquids, puree and chewable solid consistencies with the following observations: Oral Stage: Anterior leakage of bolus (left or right) not observed Pocketing of bolus (left or right) not observed Subjectively Prolonged oral phase not observed Oral residue (left/right/diffuse) not observed Pharyngeal Stage: Subjectively reduced laryngeal elevation observed with thin liquid, nectar thick liquids, puree and masticated material Coughing or throat clearing observed with thin liquid via sequential straw sip Change in voice quality observed with thin liquid Multiple swallows subjectively not observed Respiratory sufficiency and coordination: increased work of breathing Report of globus sensation: No 3 oz water challenge: failed Patient/Family/Staff education: Provided verbally. Discussed findings of evaluation, recommendationsand [employer] plan of care. RN and referring provider notified of findings and recommendations. Patient/Family goal: safe po intake ASSESSMENT/IMPRESSIONS: Enma Cat presents with suspected pharyngeal dysphagia in the setting of fever/AMS. Patient had subjectively functional oral stage with all consistencies and was able to form labial seal on both spoon and straw. He presented with subjectively reduced laryngeal elevation with all materials. Patient appeared to initially tolerate single sips of thin liquids. However, later in the evaluation he had immediate cough following spoon sips. Patient also had cough with wet vocal quality following thin straw sips. He appeared to tolerate nectar-thick liquids, purees, and masticated materials (Note: aspiration cannot be ruled out nor confirmed without objective assessment/imaging). 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 Prognosis is fair for safe po intake with adherence to texture modifications and adherence to swallow precautions due to above findings. RECOMMENDATIONS/GOALS: 1. Recommend patient be downgraded to a regular-textured diet with nectar-thick liquids and swallow precautions: sit fully upright/chair, small single sips/bites, no straws, crush pills and mix with pudding with MD approval and remain upright for 30 minutes after meals 2. Recommend medical team place order for Modified Barium Swallow Study (COOKALEXANDER) to rule out aspiration, further assess swallowing physiology, determine safety for PO intake, and determine need for further dysphagia interventions. Radiologist not available on Tuesday, [employer] will attempt to schedule when again available. 3. Recommend pt be closely monitored for s/sx of aspiration or signs of a developing respiratory infection (i.e. Throat clearing/coughing with po, wet/gurgled voice, fever spikes 30-60 mins after meals, increased chest congestion, leukocytosis, etc). If observed or suspected, recommend pt be made NPOuntil he can be reassessed by [employer]. Marya Garza MS, [facility]-[employer] Speech-Language Pathologist Phone/Text # [phone] Emilie Strange MD - 05/30/2020 8:06 AM CDTAssociated Order(s): CONSULT CARDIOLOGY [facility] Cardiology Consult Note Patient: Enma Cat Date of : 1940 Date of service: 05/30/2020 Primary Care Physician: Pia Jose CHIEF COMPLAINT: Chief Complaint Patient presents with Other "second opinion" HISTORY OF PRESENT ILLNESS: Enma Cat is a 79 year old male presented to the ER for evaluation for GUERRERO/AMS. Patient seen and examined in the room. Pertinent cardiac related history reviewed from chart. Patient is confused and poor historian. Admission H&P reviewed. Reports few weeks ago started having weakness, decreased ambulation, fell and went to [facility] two days ago. He was discharged today and came straight to [facility] ER because family felt patient was unsafe for home. Noted to have fatigue, fevers/chills, dyspnea, cough. History of nonischemic cardiomyopathy, s/p PPM, follows Dr. Arenas, Type 2 DM, Hypertension, CVA Previous Cardiac Studies: IMAGING - I personally reviewed, pertinent results as below: ECG 05/2020 Atrial-sensed ventricular-paced rhythm Abnormal ECG CXR 05/2020 Multifocal interstitial and airspace opacities are concerning for bronchopneumonia. These findings can also be seen with atypical infectious process, including COVID-[address] Thorax 05/2020 1. Pulmonary edema with moderate volume right and trace volume left pleural effusions. Dilated left ventricle. 2. Scattered pulmonary nodular opacities may represent scattered foci of pulmonary edema and/or atelectasis. However, underlying solid, noncalcified pulmonary nodules cannot be excluded. A follow-up CT chest in 3 6 months recommended document. 3. Calcified intrathoracic lymph nodes with calcified pulmonary, hepatic, and splenic granulomas can be seen with prior granulomatous disease. PAST MEDICAL HISTORY 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, on chronic steroid Past Surgical History: Procedure Laterality Date PACEMAKERS Family History Problem Relation Age of Onset Diabetes Mother SOCIAL HISTORY Social History Socioeconomic History Marital status: Spouse name: Not on file Number of children: Not on file Years of education: Not on file Highest education level: Not on file Occupational History Not on file Social Needs Financial resource strain: Not on file Food insecurity Worry: Not on file Inability: Not on file Transportation needs Medical: Not on file Non-medical: Not on file Tobacco Use Smoking status: Never Smoker Smokeless tobacco: Never Used Tobacco comment: quit 30 years ago Substance and Sexual Activity Alcohol use: Yes Comment: 3 drinks (vodka) nightly Drug use: No Sexual activity: Not on file Lifestyle Physical activity Days per week: Not on file Minutes per session: Not on file Stress: Not on file Relationships Social connections Talks on phone: Not on file Gets together: Not on file Attends congregational service: Not on file Active member of club or organization: Not on file Attends meetings of clubs or organizations: Not on file Relationship status: Not on file Intimate partner violence Fear of current or ex partner: Not on file Emotionally abused: Not on file Physically abused: Not on file Forced sexual activity: Not on file Other Topics Concern Not on file Social History Narrative Retired, lives with in [place]. ALLERGIES No Known Allergies MEDICATIONS Current Discharge Medication List STOP taking these medications amlodipine-valsartan (EXFORGE) 10-320 mg per tablet Comments: Reason for Stopping: atorvastatin (LIPITOR) 20 mg tablet Comments: Reason for Stopping: Insulin Glargine (LANTUS SOLOSTAR) 100 unit/mL (3 mL) injection Comments: Reason for Stopping: blood sugar diagnostic (ACCU-CHEK ACTIVE TEST) strip Comments: Reason for Stopping: Lancets (ACCU-CHEK SOFTCLIX LANCETS) Misc Comments: Reason for Stopping: Blood-Glucose Meter (ACCU-CHEK RUBI) Misc Comments: Reason for Stopping: EXFORGE 10-320 mg per tablet Comments: Reason for Stopping: CALCIUM CARBONATE/VITAMIN D3 (VITAMIN D-3 ORAL) Comments: Reason for Stopping: MULTIVITAMIN W-MINERALS/LUTEIN (CENTRUM SILVER ORAL) Comments: Reason for Stopping: Cyanocobalamin (VITAMIN B-12) 2,500 mcg Subl Comments: Reason for Stopping: FERROUS FUMARATE (IRON ORAL) Comments: Reason for Stopping: magnesium oxide (MAG-OX 400) 400 mg tablet Comments: Reason for Stopping: primidone (MYSOLINE) 50 mg tablet Comments: Reason for Stopping: ASPIRIN 81 MG ORAL CHEW Comments: Reason for Stopping: REVIEW OF SYSTEMS: Unable to obtain proper ROS PHYSICAL EXAMINATION: Vitals: 05/30/20 0358 05/30/20 0400 05/30/20 0500 05/30/20 0600 BP: (!) 165/91 (!) 169/112 (!) 148/75 (!) 154/86 Pulse: 114 120 79 93 Resp: Temp: 38.4 C (101.1 F) TempSrc: Axillary SpO2: 90% 94% 99% 90% Weight: Height: General: no apparent distress HEENT: normocephalic atraumatic Neck: supple, no lymphadenopathy, no bruits, no JVD Lungs: clear to auscultation bilaterally. No wheezes or rhonchi. No increased work of breathing. Cardio: Regular rate and rhythm, S1&S2 normal, no murmurs, rubs or gallops Abdomen: soft; non-tender; non-distended; normoactive bowel sounds. : not examined Rectal: not examined Extremities: no clubbing, cyanosis, or edema. Skin: no rashes, no visible lesions. Neuro: no gross focal deficits LABS - Reviewed pertinent labs as below: CBC BMP PT/INR WBC x10^3 (/uL) Date Value 01/22/2015 5.1 WBC (10*3/L) Date Value 05/30/2020 5.43 NA Date Value 05/30/2020 135 mmol/L 01/22/2015 136 MMOL/L No results found for: PT PLT x10^3 (/uL) Date Value 01/22/2015 172 PLT (10*3/L) Date Value 05/30/2020 145 (L) K Date Value 05/30/2020 4.3 mmol/L 01/22/2015 4.8 MMOL/L INR-LC (no units) Date Value 01/16/2014 1.0 INR (no units) Date Value 05/30/2020 1.2 HGB Date Value 05/30/2020 9.5 g/dL (L) 01/22/2015 11.6 G/DL (L) BUN Date Value 05/30/2020 29 mg/dL (H) 01/22/2015 23 MG/DL HCT (%) Date Value 05/30/2020 26.9 (L) 01/22/2015 33.2 (L) CREATININE Date Value 05/30/2020 1.38 mg/dL (H) 01/22/2015 1.37 MG/DL (H) LIPID PROFILE GLUCOSE Date Value 05/30/2020 127 mg/dL (H) 01/22/2015 95 MG/DL CHOL Date Value 05/29/2020 174 mg/dL 01/22/2015 184 MG/DL TSH LDL CHOL Date Value 05/29/2020 120 mg/dL 01/22/2015 106 MG/DL TSH Date Value 05/29/2020 2.74 mIU/L 01/22/2015 1.40 uIU/mL CARDIAC ENZYMES HDL CHOL (MG/DL) Date Value 01/22/2015 40 HDL (mg/dL) Date Value 05/29/2020 37 (L) CK (U/L) Date Value 05/29/2020 88 TRIG Date Value 05/29/2020 85 mg/dL 01/22/2015 192 MG/DL (H) LFTs CK-MB (ng/mL) Date Value 03/27/2015 0.59 AST(SGOT) (U/L) Date Value 05/30/2020 42 (H) 01/22/2015 20 TROPONIN I (ng/mL) Date Value 05/30/2020 0.233 (H) ALT(SGPT) (U/L) Date Value 01/28/2016 24 01/22/2015 29 ALTv (U/L) Date Value 05/30/2020 28 No results found for: BNP LDL CHOL Date Value 05/29/2020 120 mg/dL 01/22/2015 106 MG/DL Recent Labs 05/30/20 0334 TROPNI 0.233* Recent Labs 05/29/20 1959 TRIG 85 LDL CHOL Date Value 05/29/2020 120 mg/dL 01/22/2015 106 MG/DL NT-proBNP (pg/mL) Date Value 05/30/2020 36,600 (H) ASSESSMENT/PLAN Principal Problem: Dyspnea Active Problems: HLD (hyperlipidemia) Essential hypertension, benign Acute on chronic congestive heart failure Pneumonia due to infectious organism Elevated troponin I level Sepsis/multifoal pneumonia/toxic metabolic encephalopathy: As per primary team. Elevated trop: Recommend serial trop, tele monitoring. Likely Type 2 NC in the HF and sepsis. Nonischemic cardiomyopathy/Acute on chronic systolic/diastolic HF: Significantly elevated NT pro BNPnoted. Recommend aggressive IV diuresis. Echo today. Continue home dose of Lopressor 25 mg BiD, Entresto 97/103 mg BiD, Dyslipidemia: on lipitor 40 mg daily. COLIN on CKD3: will monitor. Rx plan reviewed with Hospitalist. Thank you for allowing us to participate in the care of Enma Cat. If you have any questions or concerns please feel free to call our office at [phone]. I would be happy to be of further assistance for Enma Cat wellbeing. Marco Strange MD Client Experience Consultant, Division of Cardiology [facility] documented in this encounter ED Notes Yeni Swift RN - 05/29/2020 6:35 PM CDTSon has brought patient to ED just after he was discharged from [facility]. Son has brought discharge paperwork that shows patient has pneumonia, hyponatremia, and was prescribed Levaquin that hehasn't picked up yet. Son states, "I picked him up from the hospital and I took him home but I didn't think he was in a good condition to leave him at home. So I brought him straight here because I don't think he can take care of himself like this. He can barely walk. He's still sick even though he was in the hospital." Patient is hot to touch and is slow to answer questions. Son advises they've been told patient has dementia. 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 Pt is said to have fallen about three to four days ago from generalized fatigue and was taken to [facility] about a day or two later for evaluation. He ssubsequently diagnosed with Pneum,onia, admitted to the hospital for two days and then discharged home today.Son decided to bring back to this ED for re-evaluation on account of generalized fatigue. Son reports that patient has a cough for about a week that is nonproductive. Past Medical History/Immunizations: 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, on chronic steroid Dementia Tetanus received in last 5 years: Unknown CAD Chronic bronchitis Systolic Heart Failure Liver Disease NOS Parkinson's Disease Allergies: No Known Allergies Past Social History: Tobacco Use Never smoked or used smokeless tobacco. quit 30 years ago Alcohol Use Yes. Comments: 3 drinks (vodka) nightly Drug Use No. Past Surgical History: Pacemaker/Defibrillator 2012 Review of Systems: Review of Systems Constitutional: Positive for appetite change and fatigue. Negative for chills, fever and unexpected weight change. HENT: Positive for trouble swallowing. Eyes: Negative. Respiratory: Positive for cough, shortness of breath and wheezing. Negative for chest tightness. Breasts: Negative. Cardiovascular: Negative. Negative for chest pain, palpitations and leg swelling. Gastrointestinal: Negative. Genitourinary: Negative. Musculoskeletal: Negative. Skin: Negative. Neurological: Negative. Psychiatric/Behavioral: Negative. Endocrine: Endocrine negative Physical Exam: ED Triage Vitals [05/29/20 1840] Weight 71.2 kg (157 lb) Actual or estimated Estimated by patient/family report Height BP (!) 156/93 Pulse 82 Resp 19 Temp 37.9 C (100.2 F) Temp source Oral SpO2 97 % Measured on Room air Physical Exam Vitals signs and nursing note reviewed. Constitutional: General: He is not in acute distress. Appearance: He is well-developed and normal weight. He is ill-appearing. He is not toxic-appearing or diaphoretic. HENT: Head: Normocephalic and atraumatic. Nose: Nose normal. No congestion or rhinorrhea. Mouth/Throat: Mouth: Mucous membranes are moist. Pharynx: Oropharynx is clear. No oropharyngeal exudate or posterior oropharyngeal erythema. Eyes: General: No scleral icterus. Right eye: No discharge. Left eye: No discharge. Extraocular Movements: Extraocular movements intact. Conjunctiva/sclera: Conjunctivae normal. Pupils: Pupils are equal, round, and reactive to light. Neck: Musculoskeletal: Normal range of motion and neck supple. No neck rigidity or muscular tenderness. Cardiovascular: Rate and Rhythm: Regular rhythm. Tachycardia present. Heart sounds: No murmur. Pulmonary: Effort: Pulmonary effort is normal. No respiratory distress. Breath sounds: No stridor. Wheezing and rhonchi present. No rales. Chest: Chest wall: No tenderness. Abdominal: General: Bowel sounds are normal. There is no distension. Palpations: Abdomen is soft. There is no mass. Tenderness: There is no abdominal tenderness. There is no right CVA tenderness, left CVA tenderness, guarding or rebound. Hernia: No hernia is present. Musculoskeletal: Normal range of motion. General: No tenderness. Right lower leg: Edema present. Left lower leg: Edema present. Comments: +1 edema Skin: General: Skin is warm and dry. Capillary Refill: Capillary refill takes less than 2 seconds. Neurological: General: No focal deficit present. Mental Status: He is alert and oriented to person, place, and time. Cranial Nerves: No cranial nerve deficit. Sensory: No sensory deficit. Motor: No weakness. Coordination: Coordination normal. Gait: Gait normal. Deep Tendon Reflexes: Reflexes normal. Psychiatric: Mood and Affect: Mood normal. Behavior: Behavior normal. Thought Content: Thought content normal. Judgment: Judgment normal. Radiology: Hospital Encounter on 05/29/20 CT HEAD WO CONTRAST Narrative CT HEAD WO CONTRAST HISTORY: Altered mental status (AMS), unclear cause COMPARISON: None available. TECHNIQUE: Routine unenhanced brain CT. FINDINGS: No acute intracranial hemorrhage, extracerebral fluid collection, midline shift or mass effect. No acute transcortical infarction. Trace intracranial atherosclerosis. Ventricles are normal. Cerebral volume is age appropriate. No depressed calvarial fracture. Visualized orbits are unremarkable. Mucosal thickening of a left posterior ethmoid air cell. Impression No acute intracranial hemorrhage or mass effect. XR CHEST 1 VW Narrative EXAM: XR CHEST 1 VW HISTORY: 79 years-old; Male; ACough, SOB, Wheezing COMPARISON: 03/25/2015 radiograph FINDINGS: Left-sided AICD with leads terminating in right atrium, right ventricle and coronary sinus. Lungs/Pleura: Multifocal airspace and interstitial opacities is noted. There is no pleural effusion or pneumothorax. Heart/Mediastinum: The cardiomediastinal silhouette is enlarged, unchanged. No acute osseous structure abnormality. Impression Multifocal interstitial and airspace opacities are concerning for bronchopneumonia. These findings are also suspicious for atypical infectious process, including COVID-19 pneumonia. Disclaimer: Generally, the findings on chest imaging in COVID-19 are not specific, and overlap with other infections, including influenza, H1N1, SARS and MERS. According to the Centers for Disease Control (CDC) and recent statement of the [employer], viral testing remains the only specific method of diagnosis. Confirmation with the viral test is required, even if radiologic findings are suggestive of COVID-[address] Preliminary Report Dictated by Resident: Darvin Crabtree Lab Results (24h): Recent Results (from the past 24 hour(s)) CBC WITH DIFF Collection Time: 05/29/20 7:59 PM Result Value Ref Range WBC 6.35 4.20 - 10.70 10*3/L RBC 3.31 (L) 4.26 - 5.52 10*6/L HGB 10.6 (L) 12.2 - 16.4 g/dL HCT 30.4 (L) 38.4 - 49.3 % MCV 91.8 81.7 - 95.6 fL MCH 32.0 26.1 - 32.7 pg MCHC 34.9 31.2 - 35.0 g/dL RDW-SD 46.8 38.5 - 51.6 fL RDW-CV 13.9 12.1 - 15.4 % PLT 162 150 - 328 10*3/L MPV 9.9 9.8 - 13.0 fL NRBC/100 WBC 0.0 0.0 - 10.0 /100 WBCs NRBC x10^3 <0.01 10*3/L GRAN MAT (NEUT) % 82.3 % IMM GRAN % 0.50 % LYMPH % 5.5 % MONO % 10.6 % EOS % 0.6 % BASO % 0.5 % GRAN MAT x10^3(ANC) 5.23 1.99 - 6.95 10*3/uL IMM GRAN x10^3 0.03 0.00 - 0.06 10*3/uL LYMPH x10^3 0.35 (L) 1.09 - 3.23 10*3/uL MONO x10^3 0.67 0.36 - 1.02 10*3/uL EOS x10^3 0.04 (L) 0.06 - 0.53 10*3/uL BASO x10^3 0.03 0.01 - 0.09 10*3/uL COMP. METABOLIC PANEL (08765) Collection Time: 05/29/20 7:59 PM Result Value Ref Range NA 135 135 - 145 mmol/L K 4.0 3.5 - 5.0 mmol/L CL 98 98 - 108 mmol/L CO2 TOTAL 27 23 - 31 mmol/L AGAP 10 2 - 16 BUN 27 (H) 7 - 23 mg/dL GLUCOSE 143 (H) 70 - 110 mg/dL CREATININE 1.51 (H) 0.60 - 1.25 mg/dL TOTAL BILI 0.6 0.1 - 1.1 mg/dL CALCIUM 9.5 8.6 - 10.6 mg/dL T PROTEIN 6.9 6.3 - 8.2 g/dL ALBUMIN 3.9 3.5 - 5.0 g/dL ALK PHOS 78 34 - 122 U/L ALTv 29 5 - 50 U/L AST(SGOT) 37 13 - 40 U/L eGFR Calculation (Non-) 45.0 mL/min/1.73m2 eGFR Calculation () 54.6 mL/min/1.73m2 TROPONIN I Collection Time: 05/29/20 7:59 PM Result Value Ref Range TROPONIN I 0.148 (H) <=0.034 ng/mL COVID-19 (ID NOW RAPID TESTING) Collection Time: 05/29/20 7:59 PM Specimen: NASOPHARYNGEAL SWAB Result Value Ref Range SARS-CoV-2 Rapid ID NOW Not Detected Not Detected N-TERMINAL PRO-BNP Collection Time: 05/29/20 7:59 PM Result Value Ref Range NT-proBNP 26,300 (H) <=450 pg/mL POCT GLUCOSE (AUTOMATED) Collection Time: 05/29/20 8:03 PM Result Value Ref Range POCT GLU 130 (H) 70 - 110 mg/dL POCT GLUCOSE(AGE >30DAYS) Collection Time: 05/29/20 8:04 PM Result Value Ref Range POCT Glu (age>30days) 130 (A) 70 - 110 mg/dL AC ABG + LACTIC ACID Collection Time: 05/29/20 8:06 PM Result Value Ref Range PH 7.44 7.35 - 7.45 PCO2 35 35 - 45 mmHg PO2 134 (H) 80 - 100 mmHg HCO3 23 22 - 26 mEq/L BE -0.6 -3.0 - 3.0 mEq/L LACTIC ACID 1.10 mmol/L EKG: Paced Rhythm 90 Unchanged from Previous EKG Orders and Treatments: Orders Placed This Encounter Procedures CT HEAD WO CONTRAST XR CHEST 1 VW CBC WITH DIFF COMP. METABOLIC PANEL (41089) TROPONIN I URINALYSIS COVID-19 (ID NOW RAPID TESTING) AC ABG + LACTIC ACID Lactic Acid Whole Blood POCT GLUCOSE(AGE >30DAYS) N-TERMINAL PRO-BNP POCT GLUCOSE (AUTOMATED) Orders Placed This Encounter Medications DISCONTD: albuterol (VENTOLIN) inhaler 2 Puff albuterol (VENTOLIN) inhaler 8 Puff furosemide (LASIX) injection 60 mg nitroglycerin (NITROL) 2 % ointment 1 Inch ED COURSE ED Course as of May 29 2136 Marina May 29, [id number] IV Diuresis initiated [[place]] [address] Arenas. Will admit for further evaluation and management [[place]Y] ED Course User Index [[place]Y] Trice Kraft MD MDM: Coding Diagnosis/Impression: ICD-10-CM ICD-9-CM 1. Acute on chronic heart failure, unspecified heart failure type I50.9 428.0 2. Fatigue, unspecified type R53.83 780.79 3. Chronic anemia D64.9 285.9 4. NSTEMI (non-ST elevated myocardial infarction) I21.4 410.70 5. Chronic obstructive pulmonary disease, unspecified COPD type J44.9 496 6. Essential hypertension I10 401.9 Disposition/Condition: ED Disposition ED Disposition Condition Comment Admit - Inpatient Serious Is this patient COVID positive or a patient under investigation (PUI)?: No Treatment Team: [facility] [[id number]] Primary reason for admission: Acute on chronic congestive heart failure [543777] Secondary reason for admission: NSTEMI (non-ST elevated my ocardial infarction) [038059] Is (or was) this a planned re-admission?: No My concerns are:: need for cardiac monitoring My concerns are:: electrolyte imbalance My concerns are:: cardiac instability My concerns are:: risk of morbidity My concer ns are:: risk of mortality My concerns are:: need for IV therapies My concerns are:: lab monitoring The risks to the patient are: high risk of medical event The risks to the patient are: high risk of deterioration in health status Expected lengt h of stay: At least 2 midnights Expected discharge disposition: Home Self Care Certification: I certify the inpatient services are medically necessary and in accordance with Medicare regulations. Discharge Medications: Patient's Medications START taking these medications No medications on file CONTINUE taking these medications which have NOT CHANGED AMLODIPINE-VALSARTAN (EXFORGE) 10-320 MG PER TABLET Take 1 tablet by mouth daily. ASPIRIN 81 MG ORAL CHEW once daily ATORVASTATIN (LIPITOR) 20 MG TABLET Take 1 tablet by mouth at bedtime. BLOOD SUGAR DIAGNOSTIC (ACCU-CHEK ACTIVE TEST) STRIP 3 (three) times daily. Use as directed BLOOD-GLUCOSE METER (ACCU-CHEK RUBI) MISC Use as directed CALCIUM CARBONATE/VITAMIN D3 (VITAMIN D-3 ORAL) Take by mouth. CYANOCOBALAMIN (VITAMIN B-12) 2,[address] under the tongue. EXFORGE 10-320 MG PER TABLET TAKE 1 TABLET BY MOUTH EVERY DAY FERROUS FUMARATE (IRON ORAL) Take 65 mg by mouth daily. INSULIN GLARGINE (LANTUS SOLOSTAR) 100 UNIT/ML (3 ML) INJECTION inject 8 Units under the skin daily. LANCETS (ACCU-CHEK SOFTCLIX LANCETS) MISC Use as directed three (3) times daily MAGNESIUM OXIDE (MAG-OX 400) 400 MG TABLET Take 400 mg by mouth daily. MULTIVITAMIN W-MINERALS/LUTEIN (CENTRUM SILVER ORAL) Take by mouth. PRIMIDONE (MYSOLINE) 50 MG TABLET Take 50 mg by mouth every 12 (twelve) hours. START taking Modified Medications as Prescribed No medications on file STOP taking these medications No medications on file Follow-up: Electronically signed by: Trice Kraft MD 05/29/2020 7:14 PM documented in this encounter Miscellaneous Notes Care Plan - Martha Prince RN - 06/04/2020 5:36 PM CDT Problem: Respiratory Function - Impaired Goal: Able to cough effectively Outcome: Adequate for discharge Goal: Patent airway Outcome: Adequate for discharge Problem: Discharge Planning Goal: Adequate for discharge Outcome: Adequate for discharge Problem: Swallowing - Impaired Goal: Absence of aspiration Outcome: Adequate for discharge Problem: Cardiac Output - Decreased Goal: Absence of signs and symptoms of decreased cardiac output Outcome: Adequate for discharge Problem: Falls, Risk of Goal: Absence of falls Outcome: Adequate for discharge Problem: Gas Exchange - Impaired Goal: Adequate oxygenation Outcome: Adequate for discharge Problem: Respiratory Function - Impaired Goal: Adequate oxygenation Outcome: Adequate for discharge Goal: Adequate work of breathing Outcome: Adequate for discharge are Stewart - Lyndsey Alcocer RN - 06/03/2020 5:06 PM CDT Problem: Respiratory Function - Impaired Goal: Adequate oxygenation Outcome: Progressing as expected Goal: Adequate work of breathing Outcome: Progressing as expected Problem: Swallowing - Impaired Goal: Absence of aspiration Outcome: Progressing as expected Problem: Gas Exchange - Impaired Goal: Adequate oxygenation Outcome: Progressing as expected are Stewart - Romeo Montero RN - 06/01/2020 11:42 PM CDT Problem: Respiratory Function - Impaired Goal: Able to cough effectively Outcome: Progressing as expected Goal: Patent airway Outcome: Progressing as expected Problem: Discharge Planning Goal: Adequate for discharge Outcome: Progressing as expected Problem: Swallowing - Impaired Goal: Absence of aspiration Outcome: Progressing as expected Problem: Cardiac Output - Decreased Goal: Absence of signs and symptoms of decreased cardiac output Outcome: Progressing as expected Problem: Falls, Risk of Goal: Absence of falls Outcome: Progressing as expected Problem: Gas Exchange - Impaired Goal: Adequate oxygenation Outcome: Progressing as expected Problem: Respiratory Function - Impaired Goal: Adequate oxygenation Outcome: Progressing as expected Goal: Adequate work of breathing Outcome: Progressing as expected are Sofía Melton RN - 06/01/2020 5:23 PM CDT Problem: Respiratory Function - Impaired Goal: Able to cough effectively Outcome: Progressing as expected Goal: Patent airway Outcome: Progressing as expected Problem: Respiratory Function - Impaired Goal: Adequate oxygenation Outcome: Progressing as expected Goal: Adequate work of breathing Outcome: Progressing as expected Problem: Discharge Planning Goal: Adequate for discharge Outcome: Progressing as expected Problem: Swallowing - Impaired Goal: Absence of aspiration Outcome: Progressing as expected Problem: Cardiac Output - Decreased Goal: Absence of signs and symptoms of decreased cardiac output Outcome: Progressing as expected Problem: Falls, Risk of Goal: Absence of falls Outcome: Progressing as expected Problem: Gas Exchange - Impaired Goal: Adequate oxygenation Outcome: Progressing as expected are Romeo Banks RN - 05/31/2020 10:12 PM CDT Problem: Respiratory Function - Impaired Goal: Able to cough effectively Outcome: Progressing as expected Goal: Patent airway Outcome: Progressing as expected Problem: Discharge Planning Goal: Adequate for discharge Outcome: Progressing as expected Problem: Swallowing - Impaired Goal: Absence of aspiration Outcome: Progressing as expected Problem: Cardiac Output - Decreased Goal: Absence of signs and symptoms of decreased cardiac output Outcome: Progressing as expected Problem: Falls, Risk of Goal: Absence of falls Outcome: Progressing as expected Problem: Gas Exchange - Impaired Goal: Adequate oxygenation Outcome: Progressing as expected Problem: Respiratory Function - Impaired Goal: Adequate oxygenation Outcome: Progressing as expected Goal: Adequate work of breathing Outcome: Progressing as expected are Marielena Osullivan RN - 05/31/2020 6:27 PM CDT Problem: Respiratory Function - Impaired Goal: Able to cough effectively Outcome: Progressing as expected Goal: Patent airway Outcome: Progressing as expected Problem: Discharge Planning Goal: Adequate for discharge Outcome: Progressing as expected Problem: Swallowing - Impaired Goal: Absence of aspiration Outcome: Progressing as expected Problem: Cardiac Output - Decreased Goal: Absence of signs and symptoms of decreased cardiac output Outcome: Progressing as expected Problem: Falls, Risk of Goal: Absence of falls Outcome: Progressing as expected Problem: Gas Exchange - Impaired Goal: Adequate oxygenation Outcome: Progressing as expected Problem: Respiratory Function - Impaired Goal: Adequate oxygenation Outcome: Progressing as expected Goal: Adequate work of breathing Outcome: Progressing as expected are Stewart - Romeo Montero RN - 05/30/2020 11:07 PM CDT Problem: Respiratory Function - Impaired Goal: Able to cough effectively Outcome: Progressing as expected Goal: Patent airway Outcome: Progressing as expected Problem: Discharge Planning Goal: Adequate for discharge Outcome: Progressing as expected Problem: Swallowing - Impaired Goal: Absence of aspiration Outcome: Progressing as expected Problem: Cardiac Output - Decreased Goal: Absence of signs and symptoms of decreased cardiac output Outcome: Progressing as expected Problem: Falls, Risk of Goal: Absence of falls Outcome: Progressing as expected Problem: Gas Exchange - Impaired Goal: Adequate oxygenation Outcome: Progressing as expected Problem: Respiratory Function - Impaired Goal: Adequate oxygenation Outcome: Progressing as expected Goal: Adequate work of breathing Outcome: Progressing as expected are Stewart - Sofía Fernández RN - 05/30/2020 4:51 PM CDT Problem: Respiratory Function - Impaired Goal: Able to cough effectively Outcome: Progressing as expected Goal: Patent airway Outcome: Progressing as expected Problem: Discharge Planning Goal: Adequate for discharge Outcome: Progressing as expected Problem: Swallowing - Impaired Goal: Absence of aspiration Outcome: Progressing as expected Problem: Cardiac Output - Decreased Goal: Absence of signs and symptoms of decreased cardiac output Outcome: Progressing as expected Problem: Falls, Risk of Goal: Absence of falls Outcome: Progressing as expected Problem: Gas Exchange - Impaired Goal: Adequate oxygenation Outcome: Progressing as expected D Nurse Christina - Katelyn Cat RN - 05/29/2020 10:55 PM CDTNurse Report Report given to SABINE Ozuna. Chief complaint, assessment findings and orders reviewed. Plan of care discussed with both nurses. Patient/family members verbalized understanding for admission. Katelyn Cat RN D Nurse Note - Katelyn Cat RN - 05/29/2020 10:40 PM CDT Attempted to call report. D Nurse Note - Katelyn Cat RN - 05/29/2020 10:39 PM CDTPatient admitted to ICU for diagnosis of acute on chronic CHF, NSTEMI, PNA, and COPD. Patient agrees to admission, discussed plan of care with patient and family. Patient is awake, alert, oriented, resp reg unlabored, color appropriate for race, PIV intact. No adverse reaction to medications administered while in ED. Belongings with patient to unit. D Nurse Note - Katelyn Cat RN - 05/29/2020 8:29 PM CDTPatient attempted to urinate without success. documented in this encounter Plan of Treatment Name Type Priority Associated Diagnoses Date/Ti me BLOOD CULTURE SCREEN LAB Routine 020 10:42 AM CDT BLOOD CULTURE SCREEN LAB Routine 020 10:29 AM CDT Name Type Priority Associated Diagnoses Order S chedule OCCULT (GUAIAC) BLOOD LAB Routine ONCE f or 1 Occurrences starting 2019 until 05/30/2020 Vancomycin Trough Level - LAB Routine ON CE for 1 Occurrences Draw within 30 minutes start ing 05/30/2020 until prior to 3RD dose. 0 Vancomycin Trough Level - LAB Routine ON CE for 1 Occurrences Draw immediately prior to st arting 06/02/2020 until the 1215 dose, but, no 06/02 more than 60 minutes before Health Maintenance Due Date Last Done Comments [...] of this encounter Implants Implanted Type Area Substation Technician Device Identifier Shelf Exp iration Model / Date Serial / L ot Pacemaker PACEMAKER documented as of this encounter Procedures Procedure Name Priority Date/Time Associated Comments Diagnosis POCT GLUCOSE Routine 06/04/2020 4:56 Results for this (AUTOMATED) PM CDT procedure are i n the results section. POCT GLUCOSE Routine 06/04/2020 11:48 Results for this (AUTOMATED) AM CDT procedure are i n the results section. XR CHEST 1 VW Routine 06/04/2020 8:56 Acute on chronic Result s for this AM CDT diastolic procedure are i n congestive heart the results failure section. POCT GLUCOSE Routine 06/04/2020 7:44 Results for this (AUTOMATED) AM CDT procedure are i n the results section. POCT GLUCOSE Routine 06/03/2020 8:32 Results for this (AUTOMATED) PM CDT procedure are i n the results section. POCT GLUCOSE Routine 06/03/2020 4:46 Results for this (AUTOMATED) PM CDT procedure are i n the results section. POCT GLUCOSE Routine 06/03/2020 11:54 Results for this (AUTOMATED) AM CDT procedure are i n the results section. POCT GLUCOSE Routine 06/03/2020 7:50 Results for this (AUTOMATED) AM CDT procedure are i n the results section. COMP. METABOLIC PANEL Routine 06/03/2020 6:37 Re sults for this ([id number]) AM CDT procedure are i n the results section. CBC WITH DIFF Routine 06/03/2020 6:36 Results fo r this AM CDT procedure are i n the results section. POCT GLUCOSE Routine 06/02/2020 8:18 Results for this (AUTOMATED) PM CDT procedure are i n the results section. POCT GLUCOSE Routine 06/02/2020 4:22 Results for this (AUTOMATED) PM CDT procedure are i n the results section. FL MODIFIED BARIUM Routine 06/02/2020 2:00 Pneumonia of both Results for this SWALLOW PM CDT lungs due to procedure are i n infectious the results organism, section. unspecified part of lung POCT GLUCOSE Routine 06/02/2020 11:59 Results for this (AUTOMATED) AM CDT procedure are i n the results section. POCT GLUCOSE Routine 06/02/2020 8:26 Results for this (AUTOMATED) AM CDT procedure are i n the results section. CBC WITH DIFF Routine 06/02/2020 5:40 Results fo r this AM CDT procedure are i n the results section. COMP. METABOLIC PANEL Routine 06/02/2020 5:40 Re sults for this ([id number]) AM CDT procedure are i n the results section. MAGNESIUM Routine 06/02/2020 5:40 Results for this AM CDT procedure are i n the results section. POCT GLUCOSE Routine 06/01/2020 4:51 Results for this (AUTOMATED) PM CDT procedure are i n the results section. POCT GLUCOSE Routine 06/01/2020 12:00 Results for this (AUTOMATED) PM CDT procedure are i n the results section. BLOOD CULTURE SCREEN Routine 06/01/2020 10:42 AM CDT BLOOD CULTURE SCREEN Routine 06/01/2020 10:29 AM CDT POCT GLUCOSE Routine 06/01/2020 8:18 Results for this (AUTOMATED) AM CDT procedure are i n the results section. N-TERMINAL PRO-BNP Routine 06/01/2020 5:14 Resul ts for this AM CDT procedure are i n the results section. CBC WITH DIFF Routine 06/01/2020 5:14 Results fo r this AM CDT procedure are i n the results section. ACUTE CARE VENOUS Routine 06/01/2020 5:14 Result s for this BLOOD GAS AM CDT procedure are i n the results section. COMP. METABOLIC PANEL Routine 06/01/2020 5:14 Re sults for this ([id number]) AM CDT procedure are i n the results section. MAGNESIUM Routine 06/01/2020 5:14 Results for this AM CDT procedure are i n the results section. POCT GLUCOSE Routine 05/31/2020 7:42 Results for this (AUTOMATED) PM CDT procedure are i n the results section. POCT GLUCOSE Routine 05/31/2020 4:51 Results for this (AUTOMATED) PM CDT procedure are i n the results section. AMMONIA, PLASMA Routine 05/31/2020 12:01 Results for this PM CDT procedure are i n the results section. POCT GLUCOSE Routine 05/31/2020 11:59 Results for this (AUTOMATED) AM CDT procedure are i n the results section. N-TERMINAL PRO-BNP Routine 05/31/2020 3:32 Resul ts for this AM CDT procedure are i n the results section. CBC WITH DIFF Routine 05/31/2020 3:32 Results fo r this AM CDT procedure are i n the results section. COMP. METABOLIC PANEL Routine 05/31/2020 3:32 Re sults for this ([id number]) AM CDT procedure are i n the results section. TROPONIN I Routine 05/31/2020 3:32 Results for this AM CDT procedure are i n the results section. MAGNESIUM Routine 05/31/2020 3:32 Results for this AM CDT procedure are i n the results section. URIC ACID Routine 05/31/2020 3:32 Results for this AM CDT procedure are i n the results section. POCT GLUCOSE Routine 05/30/2020 7:32 Results for this (AUTOMATED) PM CDT procedure are i n the results section. POCT GLUCOSE Routine 05/30/2020 3:44 Results for this (AUTOMATED) PM CDT procedure are i n the results section. POCT GLUCOSE Routine 05/30/2020 12:04 Results for this (AUTOMATED) PM CDT procedure are i n the results section. TROPONIN I Routine 05/30/2020 11:25 Results for this AM CDT procedure are i n the results section. ECHO ROUTINE Routine 05/30/2020 11:08 Acute respiratory W/DOPPLER COLOR AM CDT distress POCT GLUCOSE Routine 05/30/2020 8:56 Results for this (AUTOMATED) AM CDT procedure are i n the results section. CT THORAX WO CONTRAST STAT 05/30/2020 5:26 Acute respirato ry Results for this AM CDT distress procedure are i n the results section. CBC WITH DIFF Routine 05/30/2020 4:51 Results fo r this AM CDT procedure are i n the results section. SEDIMENTATION RATE LICO 05/30/2020 4:51 Resul ts for this AM CDT procedure are i n the results section. N-TERMINAL PRO-BNP Routine 05/30/2020 3:34 Resul ts for this AM CDT procedure are i n the results section. IRON PANEL LICO 05/30/2020 3:34 Results for this AM CDT procedure are i n the results section. COMP. METABOLIC PANEL Routine 05/30/2020 3:34 Re sults for this ([id number]) AM CDT procedure are i n the results section. TROPONIN I LICO 05/30/2020 3:34 Results for this AM CDT procedure are i n the results section. CORTISOL AM Routine 05/30/2020 3:34 Results for this AM CDT procedure are i n the results section. MAGNESIUM Routine 05/30/2020 3:34 Results for this AM CDT procedure are i n the results section. URIC ACID Routine 05/30/2020 3:34 Results for this AM CDT procedure are i n the results section. LEGIONELLA URINARY LICO 05/30/2020 3:29 Resul ts for this ANTIGEN TST AM CDT procedure are i n the results section. PROTEIN CREAT RATIO LICO 05/30/2020 3:28 Resu lts for this URINE RANDOM AM CDT procedure are i n the results section. SODIUM, URINE RANDOM LICO 05/30/2020 3:28 Res ults for this AM CDT procedure are i n the results section. PNEUMOCOCCAL ANTIGEN LICO 05/30/2020 3:27 Res ults for this AM CDT procedure are i n the results section. UREA NITROGEN, URINE Routine 05/30/2020 3:25 Res ults for this RANDOM AM CDT procedure are i n the results section. OSMOLALITY URINE Routine 05/30/2020 3:25 Results for this AM CDT procedure are i n the results section. URINE CULTURE LICO 05/30/2020 3:24 Results fo r this AM CDT procedure are i n the results section. PROCALCITONIN LICO 05/30/2020 2:08 Results fo r this AM CDT procedure are i n the results section. VITAMIN D, 25-OH LICO 05/30/2020 2:08 Results for this AM CDT procedure are i n the results section. MYCOPLASMA PNEUMONIAE LICO 05/30/2020 2:08 Re sults for this ANTIBODY, IGM AM CDT procedure are in the results section. PROTHROMBIN TIME / [facility] 05/30/2020 2:08 Resul ts for this INR AM CDT procedure are i n the results section. FOLATE [facility] 05/30/2020 2:08 Results for this AM CDT procedure are i n the results section. VITAMIN B12, LEVEL [facility] 05/30/2020 2:08 Resul ts for this AM CDT procedure are i n the results section. OSMOLALITY SERUM Routine 05/30/2020 2:08 Results for this AM CDT procedure are i n the results section. GRAM POSITIVE BLOOD Routine 05/30/2020 2:07 Resu lts for this PATHOGENS DNA AM CDT procedure are in PROBE-AEROBIC the results section. BLOOD CULTURE WORKUP [facility] 05/30/2020 2:07 Res ults for this AM CDT procedure are i n the results section. BLOOD CULTURE WORKUP [facility] 05/30/2020 2:07 Res ults for this AM CDT procedure are i n the results section. BLOOD CULTURE SCREEN [facility] 05/30/2020 2:07 Res ults for this AM CDT procedure are i n the results section. BLOOD CULTURE SCREEN [facility] 05/30/2020 2:07 Res ults for this AM CDT procedure are i n the results section. COVID-19 (PCR [facility] 05/30/2020 12:20 Results fo r this MOLECULAR TESTING) AM CDT procedure are in the results section. RESPIRATORY PANEL BY [facility] 05/30/2020 12:20 Res ults for this PCR AM CDT procedure are i n the results section. EXTERNAL PROVIDER Routine 05/30/2020 12:01 RECORDS AM CDT URINALYSIS STAT 05/29/2020 10:39 Fatigue, Results for this PM CDT unspecified type procedure a re in the results section. XR CHEST 1 VW STAT 05/29/2020 8:45 Fatigue, Results fo r this PM CDT unspecified type procedure a re in the results section. CT HEAD WO CONTRAST STAT 05/29/2020 8:34 Fatigue, Resu lts for this PM CDT unspecified type procedure a re in the results section. EKG-12 LEAD Routine 05/29/2020 8:08 PM CDT AC ABG + LACTIC ACID STAT 05/29/2020 8:06 Fatigue, Res ults for this PM CDT unspecified type procedure a re in the results section. POCT GLUCOSE(AGE [facility] 05/29/2020 8:04 Fatigue, Results for this >30DAYS) PM CDT unspecified type procedure a re in the results section. POCT GLUCOSE Routine 05/29/2020 8:03 Results for this (AUTOMATED) PM CDT procedure are i n the results section. COVID-19 (ID NOW STAT 05/29/2020 7:59 Fatigue, Results for this RAPID TESTING) PM CDT unspecified type procedure are in the results section. N-TERMINAL PRO-BNP STAT 05/29/2020 7:59 Fatigue, Resul ts for this PM CDT unspecified type procedure a re in the results section. GLYCOSYLATED LICO Add-On 05/29/2020 7:59 Results for this HEMOGLOBIN (A1C) PM CDT procedure a re in the results section. CBC WITH DIFF STAT 05/29/2020 7:59 Fatigue, Results fo r this PM CDT unspecified type procedure a re in the results section. LIPID PANEL LICO Add-On 05/29/2020 7:59 Results for this ([id number])(TOTAL PM CDT procedure are in CHOLESTEROL, the results TRIGLYCERIDES, HDL) section. COMP. METABOLIC PANEL STAT 05/29/2020 7:59 Fatigue, Re sults for this ([id number]) PM CDT unspecified type procedure a re in the results section. THYROID STIMULATING LICO Add-On 05/29/2020 7:59 Resu lts for this HORMONE PM CDT procedure are i n the results section. TROPONIN I STAT 05/29/2020 7:59 Fatigue, Results for this PM CDT unspecified type procedure a re in the results section. FERRITIN SERUM LICO Add-On 05/29/2020 7:59 Results f or this PM CDT procedure are i n the results section. MAGNESIUM LICO Add-On 05/29/2020 7:59 Results for this PM CDT procedure are i n the results section. URIC ACID LICO Add-On 05/29/2020 7:59 Results for this PM CDT procedure are i n the results section. CREATINE KINASE LICO Add-On 05/29/2020 7:59 Results for this PM CDT procedure are i n the results section. PHOSPHORUS LICO Add-On 05/29/2020 7:59 Results for this PM CDT procedure are i n the results section. EKG-12 LEAD Routine 05/29/2020 7:39 PM CDT NOTICE OF PRIVACY Routine 05/29/2020 6:34 PRACTICES PM CDT CONSENT/REFUSAL FOR Routine 05/29/2020 6:33 DIAGNOSIS AND PM CDT TREATMENT documented in this encounter Results POCT GLUCOSE (AUTOMATED) (06/04/2020 4:56 PM CDT) Pathologist Sig nature POCT GLU 133 (H) 70 - 110 mg/dL [facility] Specimen Blood Performing Organization Address City/[facility] Phone Number [facility] CLIA: [id number] [place] [address] POCT GLUCOSE (AUTOMATED) (06/04/2020 11:48 AM CDT) Pathologist Sig nature POCT GLU 154 (H) 70 - 110 mg/dL [facility] Specimen Blood Performing Organization Address City/[facility] Phone Number [facility] CLIA: [id number] [place] [address] XR CHEST 1 VW (06/04/2020 8:56 AM CDT) Specimen Narrative Performed At HISTORY: Follow-up of CHF. PACS/VR/DOSE TECHNIQUE: AP view of the chest is obtai cl. Comparison is made with 05/29/2020 study. FINDINGS: Moderate cardiomegaly noted wi th minimal, if any, residual pulmonary edema. Atelectatic changes are seen predominantly in the infrahilar right lower lung. No signific ant pleural effusion. Multiple permanent electrodes inserted through left pagan bclavian appear to be in good position. CONCLUSIONS: Interval improvement since 05/29/2020 study with minimal, if any, residual pulmonary edema seen at this time. Procedure Note [facility], Radiant Results Inft User - 2019 9:02 AM CDT HISTORY: Follow-up of CHF. TECHNIQUE: AP view of the chest is obtai cl. Comparison is made with 05/29/2020 study. FINDINGS: Moderate cardiomegaly noted wi th minimal, if any, residual pulmonary edema. Atelectatic changes are seen predominantly in the infrahilar right lower lung. No signific ant pleural effusion. Multiple permanent electrodes inserted t hrough left subclavian appear to be in good position. CONCLUSIONS: Interval improvement since 05/29/2020 study with minimal, if any, residual pulmonary edema seen at th is time. Performing Organization Address City/[facility]/Zipcode Phone Number PACS/VR/DOSE POCT GLUCOSE (AUTOMATED) (06/04/2020 7:44 AM CDT) Pathologist Sig nature POCT GLU 98 70 - 110 mg/dL [facility] Specimen Blood Performing Organization Address [facility] [place] Phone Number [facility] CLIA: [id number] [place] [address] POCT GLUCOSE (AUTOMATED) (06/03/2020 8:32 PM CDT) Pathologist Sig nature POCT GLU 192 (H) 70 - 110 mg/dL [facility] Specimen Blood Performing Organization Address [facility] [place] Phone Number [facility] CLIA: [id number] [place] [address] POCT GLUCOSE (AUTOMATED) (06/03/2020 4:46 PM CDT) Pathologist Sig nature POCT GLU 98 70 - 110 mg/dL [facility] Specimen Blood Performing Organization Address [facility] [place] Phone Number [facility] CLIA: [id number] [place] [address] POCT GLUCOSE (AUTOMATED) (06/03/2020 11:54 AM CDT) Pathologist Sig nature POCT GLU 195 (H) 70 - 110 mg/dL [facility] Specimen Blood Performing Organization Address [facility] [place] Phone Number [facility] CLIA: [id number] [place] [address] POCT GLUCOSE (AUTOMATED) (06/03/2020 7:50 AM CDT) Pathologist Sig nature POCT GLU 98 70 - 110 mg/dL [facility] LABORATORY Specimen Blood Performing Organization Address [facility] [place] Phone Number [facility] CLIA: [id number] [place] [address] COMP. METABOLIC PANEL (52910) (06/03/2020 6:37 AM CDT) NA 136 135 - 145 [facility] mmol/L HOSPITAL LABORATORY K 3.9 3.5 - 5.0 [facility] mmol/L HOSPITAL LABORATORY CL 100 98 - 108 mmol/L [facility] CO2 TOTAL 27 23 - 31 mmol/L [facility] AGAP 9 2 - 16 [facility] BUN 37 (H) 7 - 23 mg/dL [facility] GLUCOSE 87 70 - 110 mg/dL [facility] CREATININE 1.85 (H) 0.60 - 1.25 [facility] mg/dL [facility] TOTAL BILI 0.4 0.1 - 1.1 mg/dL [facility] CALCIUM 9.4 8.6 - 10.6 [facility] mg/dL [facility] T PROTEIN 6.3 6.3 - 8.2 g/dL [facility] ALBUMIN 3.2 (L) 3.5 - 5.0 g/dL [facility] ALK PHOS 58 34 - 122 U/L [facility] ALTv 22 5 - 50 U/L [facility] AST(SGOT) 31 13 - 40 U/L [facility] eGFR Calculation 35.6 mL/min/1.73m2 [facility] [place] eGFR Calculation 43.2 mL/min/1.73m2 [facility] () [facility] Specimen Blood - VENOUS Narrative Performed At Association of Glomerular Filtration Rate (GFR) [facility] LABORATORY and Staging of Kidney Disease* + + +- + | GFR (mL/min/1.73 m2) | With Kidney Damage | Without Kidney Damage + + +- + | >90 | Stage one | Normal + + +- + | 60-89 | Stage two | Decreased GFR + + +- + | 30-59 | Stage three | Stage three + + +- + | 15-29 | Stage four | Stage four + + +- + | <15 (or dialysis) | Stage five | Stage five + + +- + *Each stage assumes the associated GFR level has been in effect for at least three months. Stages 1 to 5, with or without kidney disease, indicate chronic kidney disease. Notes: Determination of stages one and two (with eGFR >59mL/min/1.73 m2) requires estimation of kidney damage for at least three months as defined by structural or functional abnormalities of the kidney, manifested by either: Pathological abnormalities or Markers of kidney damage (including abnormalities in the composition of the blood or urine or abnormalities in imaging tests). Performing Organization Address City/State/Zipcode Phone Number [facility] CLIA: [id number] [place] [address] CBC WITH DIFF (06/03/2020 6:36 AM CDT) Pathologist Sig nature WBC 2.42 (L) 4.20 - 10.70 [facility] 10*3/L [facility] RBC 2.99 (L) 4.26 - 5.52 [facility] 10*6/L [facility] HGB 9.6 (L) 12.2 - 16.4 [facility] g/dL [facility] HCT 27.6 (L) 38.4 - 49.3 % [facility] MCV 92.3 81.7 - 95.6 fL [facility] MCH 32.1 26.1 - 32.7 pg [facility] MCHC 34.8 31.2 - 35.0 [facility] g/dL [facility] RDW-SD 46.4 38.5 - 51.6 fL [facility] RDW-CV 13.7 12.1 - 15.4 % [facility] LABORATORY PLT 146 (L) 150 - 328 [facility] 10*3/L [facility] MPV 10.5 9.8 - 13.0 fL [facility] NRBC/100 WBC 0.0 0.0 - 10.0 /100 [facility] WBCs [facility] NRBC x10^3 <0.01 10*3/L [facility] GRAN MAT (NEUT) % 55.9 % [facility] IMM GRAN % 0.40 % [facility] LYMPH % 16.5 % [facility] MONO % 12.4 % [facility] EOS % 14.0 % [facility] BASO % 0.8 % [facility] GRAN MAT x10^3(ANC) 1.35 (L) 1.99 - 6.95 [facility] 10*3/uL [facility] IMM GRAN x10^3 <0.03 0.00 - 0.06 [facility] 10*3/uL [facility] LYMPH x10^3 0.40 (L) 1.09 - 3.23 [facility] 10*3/uL [facility] MONO x10^3 0.30 (L) 0.36 - 1.02 [facility] 10*3/uL [facility] EOS x10^3 0.34 0.06 - 0.53 [facility] 103/uL [facility] LAB[facility] BASO x10^3 <0.03 0.01 - 0.[address]/[facility] LABORATORY Specimen Blood - VENOUS Performing Organization Address [facility] [place] Phone Number [facility] CLIA: [id number] [place] [address] POCT GLUCOSE (AUTOMATED) (06/02/2020 8:18 PM CDT) Pathologist Sig nature POCT GLU 152 (H) 70 - 110 mg/dL [facility] LABOR[facility] Specimen Blood Performing Organization Address [facility] [place] Phone Number [facility] CLIA: [id number] [place] [address] POCT GLUCOSE (AUTOMATED) (06/02/2020 4:22 PM CDT) Pathologist Sig nature POCT GLU 129 (H)Comment: 70 - 110 mg/dL [facility] Notified Provider HOSPITAL LABORATORY Specimen Blood Performing Organization Address [facility] [place] Phone Number [facility] CLIA: [id number] [place] [address] MOD BARIUM SWALLOW, (DARCY) (06/02/2020 2:00 PM CDT) Specimen Impressions Performed At PACS/VR/DOSE Flash laryngeal penetration on swallowin g of thin fluids. Please refer to the speech pathologist's report for fu rther details. Narrative Performed At EXAM: [place] MODIFIED BARIUM SWALLOW PACS/VR/DOSE HISTORY: aspiration TECHNIQUE: Barium of varying consistencies from thin l iquids to solids was administered to the patient during fluor oscopy. The study was performed with the speech pathologists. FINDINGS: The swallow reflex and protective mechanisms are intac t. Flash penetration was observed when fed with thin liquids. No penetratio n or aspiration was seen with nectar thick liquid, puree or jewelry solids. Procedure Note [facility], Radiant Results Inft User - 2019 6:25 PM CDT EXAM: [place] MODIFIED BARIUM SWALLOW HISTORY: aspiration TECHNIQUE: Barium of varying consistenci es from thin liquids to solids was administered to the patient during fluor oscopy. The study was performed with the speech pathologists. FINDINGS: The swallow reflex and protective mechan isms are intact. Flash penetration was observed when fed with thin liquids. No penetration or aspiration was seen with nectar thick liquid, puree or jewelry solids. IMPRESSION Flash laryngeal penetration on swallowin g of thin fluids. Please refer to the speech pathologist's report for further details. Performing Organization Address [facility] [place] Phone Number PACS/VR/DOSE POCT GLUCOSE (AUTOMATED) (06/02/2020 11:59 AM CDT) [facility] POCT GLU 159 (H)Comment: 70 - 110 mg/dL [facility] Notified Provider HOSPITAL LABORATORY Specimen Blood Performing Organization Address [facility] [place] Phone Number [facility] CLIA: [id number] [place] [address] [address] POCT GLUCOSE (AUTOMATED) (06/02/2020 8:26 AM CDT) [facility] POCT GLU 105 70 - 110 mg/dL [facility] Specimen Blood Performing Organization Address [facility] Phone Number [facility] CLIA: [id number] [place] [address] LABORATORY [address] [facility] CBC WITH DIFF (06/02/2020 5:40 AM CDT) [facility] WBC 2.31 (L) 4.20 - 10.70 [facility] 10*3/L [facility] RBC 2.66 (L) 4.26 - 5.52 [facility] 10*6/L [facility] HGB 8.6 (L) 12.2 - 16.4 [facility] g/dL [facility] HCT 24.4 (L) 38.4 - 49.3 % [facility] MCV 91.7 81.7 - 95.6 fL [facility] MCH 32.3 26.1 - 32.7 pg [facility] MCHC 35.2 (H) 31.2 - 35.0 [facility] g/dL [facility] RDW-SD 46.7 38.5 - 51.6 fL [facility] RDW-CV 13.9 12.1 - 15.4 % [facility] PLT 153 150 - 328 [facility] 10*3/L [facility] MPV 10.4 9.8 - 13.0 fL [facility] NRBC/100 WBC 0.0 0.0 - 10.0 /100 [facility] WBCs [facility] NRBC x10^3 <0.01 10*3/L [facility] GRAN MAT (NEUT) % 58.9 % [facility] IMM GRAN % 0.40 % [facility] LYMPH % 11.3 % [facility] MONO % 10.8 % [facility] EOS % 17.3 % [facility] BASO % 1.3 % [facility] GRAN MAT x10^3(ANC) 1.36 (L) 1.99 - 6.95 [facility] 10*3/uL [facility] IMM GRAN x10^3 <0.03 0.00 - 0.06 [facility] 10*3/uL [facility] LYMPH x10^3 0.26 (L) 1.09 - 3.23 [facility] 10*3/uL [facility] MONO x10^3 0.25 (L) 0.36 - 1.02 [facility] 10*3/uL [facility] EOS x10^3 0.40 0.06 - 0.53 [facility] 10*3/uL [facility] BASO x10^3 0.03 0.01 - 0.09 [facility] 10*3/uL [facility] Specimen Blood - ARM, RIGHT Performing Organization Address City/State/Zipcode Phone Number [facility] CLIA: [id number] [place] [address] MAGNESIUM (06/02/2020 5:40 AM CDT) Pathologist Sig nature MAGNESIUM 1.8 1.7 - 2.4 mg/dL [facility] LABORAT[facility] Specimen Blood - ARM, RIGHT Performing Organization Address City/State/Zipcode Phone Number [facility] CLIA: [id number] [place] [address] COMP. METABOLIC PANEL (36012) (06/02/2020 5:40 AM CDT) NA 133 (L) 135 - 145 [facility] mmol/L [facility] K 3.4 (L) 3.5 - 5.0 [facility] mmol/L [facility] CL 96 (L) 98 - 108 mmol/L [facility] CO2 TOTAL 28 23 - 31 mmol/L [facility] AGAP 9 2 - 16 [facility] BUN 34 (H) 7 - 23 mg/dL [facility] GLUCOSE 135 (H) 70 - 110 mg/dL [facility] CREATININE 1.83 (H) 0.60 - 1.25 [facility] mg/dL [facility] TOTAL BILI 0.4 0.1 - 1.1 mg/dL [facility] CALCIUM 9.4 8.6 - 10.6 [facility] mg/dL [facility] T PROTEIN 6.0 (L) 6.3 - 8.2 g/dL [facility] ALBUMIN 3.1 (L) 3.5 - 5.0 g/dL [facility] ALK PHOS 52 34 - 122 U/L [facility] ALTv 25 5 - 50 U/L [facility] AST(SGOT) 31 13 - 40 U/L [facility] eGFR Calculation 36.1 mL/min/1.73m2 [facility] ([facility] LABORATORY [place]) eGFR Calculation 43.7 mL/min/1.73m2 [facility] () [facility] Specimen Blood - ARM, RIGHT Narrative Performed At Association of Glomerular Filtration Rate (GFR) [facility] LABORATORY and Staging of Kidney Disease* + + +- + | GFR (mL/min/1.73 m2) | With Kidney Damage | Without Kidney Damage + + +- + | >90 | Stage one | Normal + + +- + | 60-89 | Stage two | Decreased GFR + + +- + | 30-59 | Stage three | Stage three + + +- + | 15-29 | Stage four | Stage four + + +- + | <15 (or dialysis) | Stage five | Stage five + + +- + *Each stage assumes the associated GFR level has been in effect for at least three months. Stages 1 to 5, with or without kidney disease, indicate chronic kidney disease. Notes: Determination of stages one and two (with eGFR >59mL/min/1.73 m2) requires estimation of kidney damage for at least three months as defined by structural or functional abnormalities of the kidney, manifested by either: Pathological abnormalities or Markers of kidney damage (including abnormalities in the composition of the blood or urine or abnormalities in imaging tests). Performing Organization Address [facility] Phone Number [facility] CLIA: [id number] [place] [address] POCT GLUCOSE (AUTOMATED) (06/01/2020 4:51 PM CDT) Pathologist Sig nature POCT GLU 101 70 - 110 mg/dL [facility] Specimen Blood Performing Organization Address [facility] [place] Phone Number [facility] CLIA: [id number] [place] [address] [address] POCT GLUCOSE (AUTOMATED) (06/01/2020 12:00 PM CDT) Pathologist Sig nature POCT GLU 184 (H) 70 - 110 mg/dL [facility] Specimen Blood Performing Organization Address [facility] [place] Phone Number [facility] CLIA: [id number] [place] [address] [address] POCT GLUCOSE (AUTOMATED) (06/01/2020 8:18 AM CDT) Pathologist Sig nature POCT GLU 109 70 - 110 mg/dL [facility] Specimen Blood Performing Organization Address [facility] [place] Phone Number [facility] CLIA: [id number] [place] [address] [address] CBC WITH DIFF (06/01/2020 5:14 AM CDT) Pathologist Sig nature WBC 3.23 (L) 4.20 - 10.70 [facility] 10*3/L HOSPITAL LABORATORY RBC 2.75 (L) 4.26 - 5.52 [facility] 10*6/L [facility]OSPITAL LABORATORY HGB 8.9 (L) 12.2 - 16.4 [facility] g/dL HOSPITAL LABORATORY HCT 25.3 (L) 38.4 - 49.3 % [facility] MCV 92.0 81.7 - 95.6 fL [facility] MCH 32.4 26.1 - 32.7 pg [facility] MCHC 35.2 (H) 31.2 - 35.0 [facility] g/dL HOSPITAL LABORATORY RDW-SD 46.0 38.5 - 51.6 fL [facility] RDW-CV 13.8 12.1 - 15.4 % [facility] PLT 131 (L) 150 - 328 [facility] 10*3/L HOSPITAL LABORATORY MPV 10.3 9.8 - 13.0 fL [facility] NRBC/100 WBC 0.0 0.0 - 10.0 /100 [facility] WBCs [facility] NRBC x10^3 <0.01 10*3/L [facility] GRAN MAT (NEUT) % 71.9 % [facility] IMM GRAN % 0.30 % [facility] LYMPH % 8.0 % [facility] MONO % 10.5 % [facility] EOS % 8.4 % [facility] BASO % 0.9 % [facility] GRAN MAT x10^3(ANC) 2.32 1.99 - 6.95 [facility] 10*3/uL HOSPITAL LABORATORY IMM GRAN x10^3 <0.03 0.00 - 0.06 [facility] 10*3/uL HOSPITAL LABORATORY LYMPH x10^3 0.26 (L) 1.09 - 3.23 [facility] 10*3/uL HOSPITAL LABORATORY MONO x10^3 0.34 (L) 0.36 - 1.02 [facility] 10*3/uL HOSPITAL LABORATORY EOS x10^3 0.27 0.06 - 0.53 [facility] 10*3/uL HOSPITAL LABORATORY BASO x10^3 0.03 0.01 - 0.09 [facility] 10*3/uL HOSPITAL LABORATORY Specimen Blood - ARM, RIGHT Performing Organization Address [facility] Phone Number [facility] CLIA: [id number] [place] [address] ACUTE CARE VENOUS BLOOD GAS (06/01/2020 5:14 AM CDT) Pathologist Sig nature PH 7.40 7.32 - 7.42 [facility] PCO2 GIFTY 46 41 - 51 mmHg [facility] PO2 GIFTY 39 25 - 40 mmHg [facility] HCO3 GIFTY 28 24 - 28 mEq/L [facility] AC VBE(BEAKER) 2.2 mEq/L [facility] Specimen Blood - ARM, RIGHT Performing Organization Address [facility] Phone Number [facility] CLIA: [id number] [place] [address] MAGNESIUM (06/01/2020 5:14 AM CDT) Pathologist Sig nature MAGNESIUM 2.0 1.7 - 2.4 mg/dL [facility] Specimen Blood - ARM, RIGHT Performing Organization Address [facility] Phone Number [facility] CLIA: [id number] [place] [address] COMP. METABOLIC PANEL ([id number]) (06/01/2020 5:14 AM CDT) NA 136 135 - 145 [facility] mmol/L [facility] K 3.9 3.5 - 5.0 [facility] mmol/L [facility] CL 97 (L) 98 - 108 mmol/L [facility] CO2 TOTAL 30 23 - 31 mmol/L [facility] AGAP 9 2 - 16 [facility] BUN 34 (H) 7 - 23 mg/dL [facility] GLUCOSE 112 (H) 70 - 110 mg/dL [facility] CREATININE 1.81 (H) 0.60 - 1.25 [facility] mg/dL [facility] TOTAL BILI 0.5 0.1 - 1.1 mg/dL [facility] CALCIUM 9.5 8.6 - 10.6 [facility] mg/dL [facility] T PROTEIN 6.2 (L) 6.3 - 8.2 g/dL [facility] ALBUMIN 3.2 (L) 3.5 - 5.0 g/dL [facility] ALK PHOS 58 34 - 122 U/L [facility] ALTv 32 5 - 50 U/L [facility] AST(SGOT) 38 13 - 40 U/L [facility] [place]GFR Calculation 36.5 mL/min/1.73m2 [facility] ([facility] LABORATORY [place]) eGFR Calculation 44.3 mL/min/1.73m2 [facility] () [facility] Specimen Blood - ARM, RIGHT Narrative Performed At Association of Glomerular Filtration Rate (GFR) [facility] LAB[facility] and Staging of Kidney Disease* + + +- + | GFR (mL/min/1.73 m2) | With Kidney Damage | Without Kidney Damage + + +- + | >90 | Stage one | Normal + + +- + | 60-89 | Stage two | Decreased GFR + + +- + | 30-59 | Stage three | Stage three + + +- + | 15-29 | Stage four | Stage four + + +- + | <15 (or dialysis) | Stage five | Stage five + + +- + *Each stage assumes the associated GFR level has been in effect for at least three months. Stages 1 to 5, with or without kidney disease, indicate chronic kidney disease. Notes: Determination of stages one and two (with eGFR >59mL/min/1.73 m2) requires estimation of kidney damage for at least three months as defined by structural or functional abnormalities of the kidney, manifested by either: Pathological abnormalities or Markers of kidney damage (including abnormalities in the composition of the blood or urine or abnormalities in imaging tests). Performing Organization Address City/State/Zipcode Phone Number [facility] CLIA: [id number] [place] [address] N-TERMINAL PRO-BNP (06/01/2020 5:14 AM CDT) [facility] Sig nature NT-proBNP 32,400 (H) <=450 pg/mL [facility] Specimen Blood - ARM, RIGHT Narrative Performed At Biotin has been reported to cause a negative [facility] bias, interpret results relative to patient's use of biotin. Performing Organization Address City/[facility]/Zipcode [id number] [place] [address] POCT GLUCOSE (AUTOMATED) (05/31/2020 7:42 PM CDT) Pathologist Sig nature POCT GLU 124 (H) 70 - 110 mg/dL [facility] Specimen Blood Performing Organization Address [facility] Phone Number [facility] CLIA: [id number] [place] [address] POCT GLUCOSE (AUTOMATED) (05/31/2020 4:51 PM CDT) Pathologist Sig [facility] POCT GLU 105 70 - 110 mg/dL [facility] Specimen Blood Performing Organization Address [facility] [place] Phone Number [facility] CLIA: [id number] [place] [address] AMMONIA, PLASMA (05/31/2020 12:01 PM CDT) Pathologist Sig [facility] AMMONIA <9 (L) 9 - 33 umol/L [facility] Specimen Blood - ARM, LEFT Performing Organization Address [facility] Phone Number [facility] CLIA: [id number] [place] [address] [address] POCT GLUCOSE (AUTOMATED) (05/31/2020 11:59 AM CDT) Pathologist Sig [facility] POCT GLU 106 70 - 110 mg/dL [facility] Specimen Blood Performing Organization Address [facility] [place] Phone Number [facility] CLIA: [id number] [place] [address] CBC WITH DIFF (05/31/2020 3:32 AM CDT) Pathologist Sig [facility] WBC 5.22 4.20 - 10.70 [facility] 10*3/L [facility] RBC 3.00 (L) 4.26 - 5.52 [facility] 10*6/L HOSPITAL LABORATORY HGB 9.6 (L) 12.2 - 16.4 [facility] g/dL HOSPITAL LABORATORY HCT 27.5 (L) 38.4 - 49.3 % [facility] MCV 91.7 81.7 - 95.6 fL [facility] MCH 32.0 26.1 - 32.7 pg [facility] MCHC 34.9 31.2 - 35.0 [facility] g/dL [facility] RDW-SD 47.7 38.5 - 51.6 fL [facility] RDW-CV 14.0 12.1 - 15.4 % [facility] PLT 141 (L) 150 - 328 [facility] 10*3/L [facility] MPV 10.5 9.8 - 13.0 fL [facility] NRBC/100 WBC 0.0 0.0 - 10.0 /100 [facility] WBCs [facility] NRBC x10^3 <0.01 10*3/L [facility] GRAN MAT (NEUT) % 81.0 % [facility] IMM GRAN % 0.40 % [facility] LYMPH % 4.8 % [facility] MONO % 11.5 % [facility] EOS % 1.7 % [facility] BASO % 0.6 % [facility] GRAN MAT x10^3(ANC) 4.23 1.99 - 6.95 [facility] 10*3/uL [facility] IMM GRAN x10^3 <0.03 0.00 - 0.06 [facility] 10*3/uL [facility] LYMPH x10^3 0.25 (L) 1.09 - 3.23 [facility] 10*3/uL [facility] MONO x10^3 0.60 0.36 - 1.02 [facility] 10*3/uL [facility] EOS x10^3 0.09 0.06 - 0.53 [facility] 10*3/uL [facility] BASO x10^3 0.03 0.01 - 0.09 [facility] 10*3/uL [facility] Specimen Blood - ARM, RIGHT Performing Organization Address City/State/Zipcode Phone Number [facility] CLIA: [id number] [place] [address] TROPONIN I (05/31/2020 3:32 AM CDT) Pathologist Sig nature TROPONIN I 0.167 (H) <=0.034 ng/mL [facility] Specimen Blood - ARM, RIGHT Narrative Performed At Equal or Less than 0.034 ng/ml---Normal [facility] Note: Cardiac troponin begins to rise 3-4 hours after the onset of ischemia. Repeat in 4-6 hours if the sample was drawn within 3-4 hours of the onset of the symptom and found normal. Between 0.035 and 0.120 ng/mL--- Borderline. Questionable myocardial injury or necros is Note: Serial measurement may be necessary to confirm or exclude the diagnosis of myocardial injury or necrosis; Clinical correlation (symptoms, EKGs, imaging studies, and others) required; Repeat in 4-6 hours if clinically indicated. Equal or Higher than 0.121 ng/mL---Abnormal. Myocardial Injury or Necrosis Likely Biotin has been reported to cause a negative bias, interpret results relative to patient's use of biotin. Performing Organization Address [facility] [place] Phone Number [facility] CLIA: [id number] [place] [address] URIC ACID (05/31/2020 3:32 AM CDT) Pathologist Sig nature URIC ACID 9.0 (H) 3.6 - 8.0 mg/dL [facility] Specimen Blood - ARM, RIGHT Performing Organization Address [facility] [place] Phone Number [facility] CLIA: [id number] [place] [address] MAGNESIUM (05/31/2020 3:32 AM CDT) Pathologist Sig nature MAGNESIUM 1.4 (L) 1.7 - 2.4 mg/dL [facility] Specimen Blood - ARM, RIGHT Performing Organization Address [facility] [place] Phone Number [facility] CLIA: [id number] [place] [address] N-TERMINAL PRO-BNP (05/31/2020 3:32 AM CDT) Pathologist Sig nature NT-proBNP 50,500 (H) <=450 pg/mL [facility] Specimen Blood - ARM, RIGHT Narrative Performed At [facility] has been reported to cause a negative [facility] bias, interpret results relative to patient's use of biotin. Performing Organization Address City/State/Zipcode Phone Number [facility] CLIA: [id number] [place] [address] COMP. METABOLIC PANEL (75296) (05/31/2020 3:32 AM CDT) NA 133 (L) 135 - 145 [facility] mmol/L [facility] K 3.4 (L) 3.5 - 5.0 [facility] mmol/L [facility] CL 95 (L) 98 - 108 mmol/L [facility] CO2 TOTAL 29 23 - 31 mmol/L [facility] AGAP 9 2 - 16 [facility] BUN 36 (H) 7 - 23 mg/dL [facility] GLUCOSE 136 (H) 70 - 110 mg/dL [facility] CREATININE 1.71 (H) 0.60 - 1.25 [facility] mg/dL [facility] TOTAL BILI 0.8 0.1 - 1.1 mg/dL [facility] CALCIUM 9.4 8.6 - 10.6 [facility] mg/dL [facility] T PROTEIN 6.5 6.3 - 8.2 g/dL [facility] ALBUMIN 3.4 (L) 3.5 - 5.0 g/dL [facility] ALK PHOS 59 34 - 122 U/L [facility] ALTv 35 5 - 50 U/L [facility] AST(SGOT) 42 (H) 13 - 40 U/L [facility] eGFR Calculation 39.0 mL/min/1.73m2 [facility] ([facility] LABORATORY [place]) eGFR Calculation 47.3 mL/min/1.73m2 [facility] () [facility] Specimen Blood - ARM, RIGHT Narrative Performed At [facility] of Glomerular Filtration Rate (GFR) [facility] LAB[facility]ATORY and Staging of Kidney Disease* + + +- + | GFR (mL/min/1.73 m2) | With Kidney Damage | Without Kidney Damage + + +- + | >90 | Stage one | Normal + + +- + | 60-89 | Stage two | Decreased GFR + + +- + | 30-59 | Stage three | Stage three + + +- + | 15-29 | Stage four | Stage four + + +- + | <15 (or dialysis) | Stage five | Stage five + + +- + *Each stage assumes the associated GFR level has been in effect for at least three months. Stages 1 to 5, with or without kidney disease, indicate chronic kidney disease. Notes: Determination of stages one and two (with eGFR >59mL/min/1.73 m2) requires estimation of kidney damage for at least three months as defined by structural or functional abnormalities of the kidney, manifested by either: Pathological abnormalities or Markers of kidney damage (including abnormalities in the composition of the blood or urine or abnormalities in imaging tests). Performing Organization Address [facility] [place] Phone Number [facility] CLIA: [id number] [place] [address] POCT GLUCOSE (AUTOMATED) (05/30/2020 7:32 PM CDT) Pathologist Sig nature POCT GLU 154 (H) 70 - 110 mg/dL [facility] Specimen Blood Performing Organization Address [facility] [place] Phone Number [facility] CLIA: [id number] [place] [address] POCT GLUCOSE (AUTOMATED) (05/30/2020 3:44 PM CDT) Pathologist Sig nature POCT GLU 105 70 - 110 mg/dL [facility] Specimen Blood Performing Organization Address [facility] Phone Number [facility] CLIA: [id number] [place] [address] POCT GLUCOSE (AUTOMATED) (05/30/2020 12:04 PM CDT) Pathologist Sig nature POCT GLU 117 (H) 70 - 110 mg/dL [facility] Specimen Blood Performing Organization Address [facility] Phone Number [facility] CLIA: [id number] [place] [address] TROPONIN I (05/30/2020 11:25 AM CDT) Pathologist Sig nature TROPONIN I 0.222 (H) <=0.034 ng/mL [facility] Specimen Blood - ARM, RIGHT Narrative Performed At Equal or Less than 0.034 ng/ml---Normal [facility] Note: Cardiac troponin begins to rise 3-4 hours after the onset of ischemia. Repeat in 4-6 hours if the sample was drawn within 3-4 hours of the onset of the symptom and found normal. Between 0.035 and 0.120 ng/mL--- Borderline. Questionable myocardial injury or necros is Note: Serial measurement may be necessary to confirm or exclude the diagnosis of myocardial injury or necrosis; Clinical correlation (symptoms, EKGs, imaging studies, and others) required; Repeat in 4-6 hours if clinically indicated. Equal or Higher than 0.121 ng/mL---Abnormal. Myocardial Injury or Necrosis Likely Biotin has been reported to cause a negative bias, interpret results relative to patient's use of biotin. Performing Organization Address City/State/Zipcode Phone Number [facility] CLIA: [id number] [place] [address] [address] POCT GLUCOSE (AUTOMATED) (05/30/2020 8:56 AM CDT) [facility] Sig nature POCT GLU 100 70 - 110 mg/dL [facility] Specimen Blood Performing Organization Address City/State/Zipcode Phone Number [facility] CLIA: [id number] [place] [address] LABORATORY [facility] [employer] CT THORAX WO CONTRAST (05/30/2020 5:26 AM CDT) Specimen Impressions Performed At PACS/VR/DOSE 1. Pulmonary edema with moderate volum e right and trace volume left pleural effusions. Dilated left ventricl e. 2. Scattered pulmonary nodular opacities may represe nt scattered foci of pulmonary edema and/or atelectasis. However, underlyin g solid, noncalcified pulmonary nodules cannot be excluded. A follow-up CT chest in 3 6 months recommended document. 3. Calcified intrathoracic lymph nodes with calcifie d pulmonary, hepatic, and splenic granulomas can be seen with prior granulomatous disease. Preliminary Report Dictated by Resident: Ndy Iam Ball MD., have reviewe d this study and agree with the above report. Narrative Performed At PROCEDURE: CT CHEST WITHOUT CONTRAST - C HEST PROTOCOL PACS/VR/DOSE CLINICAL INDICATION:Acute resp illness, > 40 years old COMPARISON: None TECHNIQUE: Helical CT was performed of the chest (misha ng apices to bases) using 100 mL Omnipaque-350 nonionic intr avenous contrast, without complications. Images were reconstructed at 1.25 mm sl ice thickness. Axial MIPs and coronal and sagittal MPR images were generated and reviewed. (Display [id number] = 35 cm) FINDINGS: Lower neck/thyroid: Unremarkable. Lungs: Centrilobular septal thickening w ith groundglass attenuating parenchyma. Left lower lobe calcified granuloma. A 0.4 cm noncalcified, solid pulmonary nodule along th e horizontal fissure (10:53), likely a pulmonary lymph node. Spiculated subpleural nodule within the right upper lo be (10:37). A 0.9 cm pulmonary nodule in the right lower lobe (10:66), this may represent a focus of pulmonary edema or atelectasis. Left lower lobe nodular opacities measure 0.7 cm, 0.8 cm and 0.6 cm, also may represent foci of pulmonary edema an d/or atelectasis. Central airway: Unremarkable. Pleura: Large volume right pleural effus ion. Trace volume left pleural effusion. No thickening or pneumothorax. Thoracic aorta and great vessels: Normal in diameter. Pulmonary arteries: Normal in caliber. Heart and pericardium: No detectable cor onary artery calcifications. Cardiac megaly. Lymph nodes: Calcified mediastinal and b ilateral hilar lymph nodes. Mediastinum: Unremarkable. Thoracic spine and chest wall: Unremarkable, with norm al thoracic vertebral body heights. Other Lines/Tubes/Devices/Hardware: Left chest wall pacemaker/AICD with leads terminating in the right ventricle , right atrium, and coronary sinus.. Visualized upper abdomen: Scattered sple adelfo and hepatic calcified granulomas. Procedure Note [facility], Radiant Results Inft User - 2019 10:24 AM CDT PROCEDURE: CT CHEST WITHOUT CONTRAST - CHEST PROTOCOL CLINICAL INDICATION:Acute resp illness, > 40 years old COMPARISON: None TECHNIQUE: Helical CT was performed of the chest (lung apices to bases) using 100 mL Omnipaque-350 nonionic intr avenous contrast, without complications. Images were reconstructed at 1.25 mm slice thickness. Axial MIPs and coronal and sagittal MPR images were generated and reviewed. (Display [id number]-[id number] = 35 cm) FINDINGS: Lower neck/thyroid: Unremarkable. Lungs: Centrilobular septal thickening w ith groundglass attenuating parenchyma. Left lower lobe calcified granuloma. A 0.4 cm noncalcified, solid pulmonary n odule along the horizontal fissure (10:53), likely a pulmonary lymph node. Spiculated subpleural nodule within the right upper lobe (10:37). A 0.9 cm pulmonary nodule in the right lower lobe (10:66), this may represent a focus of pulmonary edema or atelectasis. Left lower lobe nodular opacities measur e 0.7 cm, 0.8 cm and 0.6 cm, also may represent foci of pulmonary edema an d/or atelectasis. Central airway: Unremarkable. Pleura: Large volume right pleural effus ion. Trace volume left pleural effusion. No thickening or pneumothorax. Thoracic aorta and great vessels: Normal in diameter. Pulmonary arteries: Normal in caliber. Heart and pericardium: No detectable cor onary artery calcifications. Cardiac megaly. Lymph nodes: Calcified mediastinal and b ilateral hilar lymph nodes. Mediastinum: Unremarkable. Thoracic spine and chest wall: Unremarka ble, with normal thoracic vertebral body heights. Other Lines/Tubes/Devices/Hardware: Left chest wall pacemaker/AICD with leads terminating in the right ventricle , right atrium, and coronary sinus.. Visualized upper abdomen: Scattered sple adelfo and hepatic calcified granulomas. IMPRESSION 1. Pulmonary edema with moderate volume right and trace volume left pleural effusions. Dilated left ventricl e. 2. Scattered pulmonary nodular opacitie s may represent scattered foci of pulmonary edema and/or atelectasis. Zaman alex, underlying solid, noncalcified pulmonary nodules cannot be excluded. A follow-up CT chest in 3 6 months recommended document. 3. Calcified intrathoracic lymph nodes with calcified pulmonary, hepatic, and splenic granulomas can be seen with prior granulomatous disease. Preliminary Report Dictated by Resident: Iam Mcguire MD., have reviewed this study and agree with the above report. Performing Organization Address City/State/Zipcode Phone Number PACS/VR/DOSE CBC WITH DIFF (05/30/2020 4:51 AM CDT) Pathologist Sig nature WBC 5.43 4.20 - 10.70 [facility] 10*3/L HOSPITAL LABORATORY RBC 2.93 (L) 4.26 - 5.52 [facility] 10*6/L [facility]OSPITAL LAB[facility]ATORY HGB 9.5 (L) 12.2 - 16.4 [facility] g/dL [facility] HCT 26.9 (L) 38.4 - 49.3 % [facility] MCV 91.8 81.7 - 95.6 fL [facility] MCH 32.4 26.1 - 32.7 pg [facility] MCHC 35.3 (H) 31.2 - 35.0 [facility] g/dL [facility] RDW-SD 47.6 38.5 - 51.6 fL [facility] RDW-CV 14.2 12.1 - 15.4 % [facility] PLT 145 (L) 150 - 328 [facility] 10*3/L HOSPITAL LABORATORY MPV 10.5 9.8 - 13.0 fL [facility] NRBC/100 WBC 0.0 0.0 - 10.0 /100 [facility] WBCs [facility] NRBC x10^3 <0.01 10*3/L [facility] GRAN MAT (NEUT) % 83.1 % [facility] IMM GRAN % 0.40 % [facility] LYMPH % 3.7 % [facility] MONO % 11.8 % [facility] EOS % 0.4 % [facility] BASO % 0.6 % [facility] GRAN MAT x10^3(ANC) 4.52 1.99 - 6.95 [facility] 10*3/uL HOSPITAL LABORATORY IMM GRAN x10^3 <0.03 0.00 - 0.06 [facility] 10*3/uL HOSPITAL LABORATORY LYMPH x10^3 0.20 (L) 1.09 - 3.23 [facility] 10*3/uL HOSPITAL LABORATORY MONO x10^3 0.64 0.36 - 1.02 [facility] 10*3/uL HOSPITAL LABORATORY EOS x10^3 <0.03 (L) 0.06 - 0.53 [facility] 10*3/uL [facility]OSPITAL LAB[facility]ORY BASO x10^3 0.03 0.01 - 0.09 [facility] 10*3/uL [facility]OSPITAL LABORATORY Specimen Blood - ARM, RIGHT Performing Organization Address [facility] Phone Number [facility] CLIA: [id number] [place] [address] SEDIMENTATION RATE (05/30/2020 4:51 AM CDT) Pathologist Sig nature ESR 53 (H) 0 - 10 mm/HR [facility] Specimen Blood - ARM, RIGHT Performing Organization Address [facility] [place] Phone Number [facility] CLIA: [id number] [place], [place] [address] LABORATORY [address] CORTISOL AM (05/30/2020 3:34 AM CDT) Pathologist Sig nature SHAYY AM 23.8 (H) 4.5 - 23.0 ug/dL [facility] LABORAT[facility] SERVICES Specimen Blood - HAND, RIGHT Narrative Performed At Biotin has been reported to cause a positive bias, int erpret [facility] SERVICES results relative to patient's use of biotin. Performing Organization Address [facility] Phone Number [facility] SERVICES CLIA: [id number] [place] [address] [place] [address] URIC ACID (05/30/2020 3:34 AM CDT) Pathologist Sig nature URIC ACID 7.8 3.6 - 8.0 mg/dL [facility] Specimen Blood - HAND, RIGHT Performing Organization Address [facility] Phone Number [facility] CLIA: [id number] [place] [address] MAGNESIUM (05/30/2020 3:34 AM CDT) Pathologist Sig nature MAGNESIUM 1.4 (L) 1.7 - 2.4 mg/dL [facility] Specimen Blood - HAND, RIGHT Performing Organization Address [facility] Phone Number [facility] CLIA: [id number] [place] [address] N-TERMINAL PRO-BNP (05/30/2020 3:34 AM CDT) Pathologist Sig nature NT-proBNP 36,600 (H) <=450 pg/mL [facility] Specimen Blood - HAND, RIGHT Narrative Performed At Biotin has been reported to cause a negative [facility] bias, interpret results relative to patient's use of biotin. Performing Organization Address [facility] Phone Number [facility] CLIA: [id number] [place] [address] LABORATORY [address] [facility] COMP. METABOLIC PANEL ([id number]) (05/30/2020 3:34 AM CDT) NA 135 135 - 145 [facility] mmol/L [facility] K 4.3 3.5 - 5.0 [facility] mmol/L [facility] CL 98 98 - 108 mmol/L [facility] CO2 TOTAL 26 23 - 31 mmol/L [facility] AGAP 11 2 - 16 [facility] BUN 29 (H) 7 - 23 mg/dL [facility] GLUCOSE 127 (H) 70 - 110 mg/dL [facility] CREATININE 1.38 (H) 0.60 - 1.25 [facility] mg/dL [facility] TOTAL BILI 0.9 0.1 - 1.1 mg/dL [facility] CALCIUM 9.4 8.6 - 10.6 [facility] mg/dL HOSPITAL LABORATORY T PROTEIN 6.6 6.3 - 8.2 g/dL [facility] ALBUMIN 3.7 3.5 - 5.0 g/dL [facility] ALK PHOS 65 34 - 122 U/L [facility] ALTv 28 5 - 50 U/L [facility] AST(SGOT) 42 (H) 13 - 40 U/L [facility] eGFR Calculation 50.0 mL/min/1.73m2 [facility] ([facility] LABORATORY [place]) eGFR Calculation 60.6 mL/min/1.73m2 [facility] () [facility] Specimen Blood - HAND, RIGHT Narrative Performed At [facility] Glomerular Filtration Rate (GFR) [facility] LAB[facility] and Staging of Kidney Disease* + + +- + | GFR (mL/min/1.73 m2) | With Kidney Damage | Without Kidney Damage + + +- + | >90 | Stage one | Normal + + +- + | 60-89 | Stage two | Decreased GFR + + +- + | 30-59 | Stage three | Stage three + + +- + | 15-29 | Stage four | Stage four + + +- + | <15 (or dialysis) | Stage five | Stage five + + +- + *Each stage assumes the associated GFR level has been in effect for at least three months. Stages 1 to 5, with or without kidney disease, indicate chronic kidney disease. Notes: Determination of stages one and two (with eGFR >59mL/min/1.73 m2) requires estimation of kidney damage for at least three months as defined by structural or functional abnormalities of the kidney, manifested by either: Pathological abnormalities or Markers of kidney damage (including abnormalities in the composition of the blood or urine or abnormalities in imaging tests). Performing Organization Address [facility] Phone Number [facility] CLIA: [id number] [place], [place] [address] [facility] [address] IRON PANEL (05/30/2020 3:34 AM CDT) Pathologist Sig nature IRON 37 (L) 50 - 160 ug/dL [facility] TIBC 259 250 - 410 ug/dL [facility] % FE SAT 14 (L) 20 - 50 % [facility] Specimen Blood - HAND, RIGHT Performing Organization Address City/[facility]ode Phone Number [facility] CLIA: [id number] [place] [address] [place] [address] Drive TROPONIN I (05/30/2020 3:34 AM CDT) Pathologist Sig nature TROPONIN I 0.233 (H) <=0.034 ng/mL [facility] Specimen Blood - HAND, RIGHT Narrative Performed At Equal or Less than 0.034 ng/ml---Normal [facility] Note: Cardiac troponin begins to rise 3-4 hours after the onset of ischemia. Repeat in 4-6 hours if the sample was drawn within 3-4 hours of the onset of the symptom and found normal. Between 0.035 and 0.120 ng/mL--- Borderline. Questionable myocardial injury or necros is Note: Serial measurement may be necessary to confirm or exclude the diagnosis of myocardial injury or necrosis; Clinical correlation (symptoms, EKGs, imaging studies, and others) required; Repeat in 4-6 hours if clinically indicated. Equal or Higher than 0.121 ng/mL---Abnormal. Myocardial Injury or Necrosis Likely Biotin has been reported to cause a negative bias, interpret results relative to patient's use of biotin. Performing Organization Address [facility] Phone Number [facility] CLIA: [id number] [place] [address] [address] LEGIONELLA URINARY ANTIGEN TST (05/30/2020 3:29 AM CDT) Pathologist Sig ashley Legionella Urinary Negative Negative [facility] LABORAT[facility] Antigen SERVICES Specimen Urine - URINE, CLEAN CATCH Narrative Performed At Negative for L. pneumophilia serogroup I antigen in ur ine [facility] SERVICES suggesting no recent or current infection. Infection d ue to Legionella cannot be ruled out since other serogroups and species may cause disease. Furthermore, antigens may n ot be present in urine during early stage of infection, or t he level of antigen present in urine may be below the det ection limit of the test. Performing Organization Address City/[facility] Phone Number [facility] SERVICES CLIA: [id number] [place] [address] [place] [address] SODIUM, URINE RANDOM (05/30/2020 3:28 AM CDT) Pathologist Sig [facility] NA URINE 123 mmol/L [facility] Specimen Urine - URINE, CLEAN CATCH Performing Organization Address [facility] Phone Number [facility] CLIA: [id number] [place] [address] PROTEIN CREAT RATIO URINE RANDOM (05/30/2020 3:28 AM CDT) Pathologist Sig nature T. PROT U 104 mg/dL [facility] CREAT U 14.4 mg/dL [facility] Protein/Creatinine 7.2 (H) 0.0 - 2.0 [facility] LABORATORY Specimen Urine - URINE, CLEAN CATCH Narrative Performed At Random Urine Total Protein Reference Ran ges [facility] Random Specimen: Less than 10 mg/dL First Morning Specimen: Less than 20 mg/dL Performing Organization Address [facility] Phone Number [facility] CLIA: [id number] [place] [address] PNEUMOCOCCAL ANTIGEN (05/30/2020 3:27 AM CDT) Pathologist Sig [facility] S. pneumoniae antigen Positive (A) Negative [facility] SERVICES Specimen Urine - URINE, CLEAN CATCH Narrative Performed At S. pneumoniae vaccine may give false positive results in [facility] urine with this assay in the 48 hours following vaccin ation. Performing Organization Address [facility] [place] Phone Number [facility] CLIA: [id number] [place] [address] [place] [address] OSMOLALITY URINE (05/30/2020 3:25 AM CDT) Pathologist Sig nature OSMO U 295 50-1,100 mOsm/kg [facility] SERVICES Specimen Urine - URINE, CLEAN CATCH Performing Organization Address [facility] [place] Phone Number [facility] CLIA: [id number] [place] [address] [place] [address] UREA NITROGEN, URINE RANDOM (05/30/2020 3:25 AM CDT) Pathologist Sig nature UREA N UR 114 mg/dL [facility] SERVICES Specimen Urine - URINE, CLEAN CATCH Performing Organization Address [facility] [place] Phone Number [facility] CLIA: [id number] [place] [address] [place] [address] URINE CULTURE (05/30/2020 3:24 AM CDT) Pathologist Sig nature URINE CULTURE No aerobic growth [facility] (< 1000 CFU/mL) SERVICES Specimen Urine - URINE, CLEAN CATCH Performing Organization Address City/State/Zipcode Phone Number [facility] CLIA: [id number] [place] [address] [place] [address] OSMOLALITY SERUM (05/30/2020 2:08 AM CDT) Pathologist Sig nature OSMOLALITY 289 278 - 305 mOsm/kg [facility] LABOR[facility] SERVICE S Specimen Blood - HAND, RIGHT Performing Organization Address [facility] Phone Number [facility] CLIA: [id number] [place] [address] [place] [address] MYCOPLASMA PNEUMONIAE ANTIBODY, IGM (05/30/2020 2:08 AM CDT) Pathologist Sig nature Mycoplasma IGM 0.06 <=0.76 U/L [facility] Comment: INTERPRETIVE INFORMATION: Mycoplasma pneumoniae Ab, IgM 0.76 U/L or less .......... Negative: No clinically significa nt amount of M. pneumo niae IgM antibody detected. 0.77 - 0.95 U/L ........... Low Positive: M. pneumo niae- specific IgM presumptively detected. Collection of a follow-up sample in 1-2 weeks is recommended to assure re activity. 0.96 U/L or greater ....... Positive: Highly signif icant amount of M. pneumoniae- specific IgM antibody detected. However, low levels of IgM an tibodies may occasiona lly persist for more than 12 m onths post-infection. Performed By: [employer] [address] [place] [address] Remote Encoding Operations Supervisor: Julisa Choi MD Specimen Blood - HAND, RIGHT Performing Organization Address [facility] Phone Number [facility] [address] [place] [address] FOLATE (05/30/2020 2:08 AM CDT) FOLATE SER 8.4Comment: Biotin 3.0 - 20.0 [facility] has been reported ng/mL SERVICES to cause a positive bias, interpret results relative to patient's use of biotin. Specimen Blood - HAND, RIGHT Performing Organization Address [facility]/Zipcode Phone Number [facility] CLIA: [id number] [place] [address] [place] [address] VITAMIN D, 25-OH (05/30/2020 2:08 AM CDT) Pathologist Sig nature VIT D 25OH 29 25 - 80 ng/mL [facility] SERVICES Specimen Blood - HAND, RIGHT Narrative Performed At Deficiency: <20 ng/mL [facility] Insufficiency: 20-24 ng/mL Optimal: 25-80 ng/mL Performing Organization Address City/[facility]ode Phone Number [facility] CLIA: [id number] [place] [address] [place] [address] VITAMIN B12, LEVEL (05/30/2020 2:08 AM CDT) Pathologist Sig nature VIT B12 412 240 - 930 pg/mL [facility] SERVICES Specimen Blood - HAND, RIGHT Narrative Performed At Biotin has been reported to cause a positive bias, int erpret [facility] SERVICES results relative to patient's use of biotin. Performing Organization Address [facility] Phone Number [facility] CLIA: [id number] [place] [address] [place] [address] PROTHROMBIN TIME / INR (05/30/2020 2:08 AM CDT) PROTIME PATIENT 14.6 12.0 - 14.7 [facility] LABORATORY INR 1.2Comment: Normal [facility] INR <1.1; Warfarin [facility] Therapeutic range LABORATORY 2.0 to 3.0 or 2.5 to 3.5, depending upon the indications. Specimen Blood - HAND, RIGHT Performing Organization Address [facility] Phone Number [facility] CLIA: [id number] [place] [address] [place] [address] PROCALCITONIN (05/30/2020 2:08 AM CDT) Pathologist Sig nature Procalcitonin 0.06 <0.07 ng/mL [facility] SERVICES Specimen Blood - HAND, RIGHT Narrative Performed At INTERPRETATION OF PROCALCITONIN RESULTS IN ADULTS >= 1 8 [facility] YEARS OF AGE Initiation and discontinuation of antibiotics on patie nts with suspected or confirmed Lower Respiratory Tract Infection in Adults >= 18 years of age. + + + +----- ------ + |Procalcitonin |Interpretation |Antibiotic |Considerations |ng/mL | |recommend ation | + + + +----- ------ + | <0.1 | Bacterial | Strongly | | | infection very | discouraged | Overruling: | | unlikely | | Clinically unstable + + + + H igh risk for adverse | <0.25 | Bacterial | Discouraged | outcome | | infection | | SEE IMPORTANT NOTE | | unlikely | | + + + +----- ------ + | >=0.25 | Bacterial | Encouraged | | | infection | | | | likely | | Consider treatment failure + + + + if l evels does not decrease | >0.5 | Bacterial | Strongly | appropriately | | infection very | encouraged | | | likely | | + + + +----- ------ + Discontinuation of antibiotics in high-acuity patients with suspected or confirmed sepsis in Adults >= 18 years of age. + + + +----- ------ + |Procalcitonin |Interpretation |Antibiotic |Considerations |ng/mL | |recommend ation | + + + +----- ------ + | <0.25 | Bacterial | Strongly | | | infection very | discouraged | Overruling: | | unlikely | | Clinically unstable + + + + H igh risk for adverse | <0.5 or drop | Bacterial | Discouraged | outcome | >80% from | infection | | SEE IMPORTANT NOTE | highest PCT | unlikely | | | level | | | + + + +----- ------ + | >=0.5 | Bacterial | Encouraged | | | infection | | | | likely | | Consider treatment failure + + + + if l evels does not decrease | >1.0 | Bacterial | Strongly | appropriately | | infection very | encouraged | | | likely | | + + + +----- ------ + Percentage of drop of Procalcitonin calculation for Discontinuation of antibiotics in high-acuity patients with suspected or confirmed sepsis in Adults >= 18 years of age. Procalcitonin highest{}-Procalcitonin current{} Delta Procalcitonin = x100% Procalcitonin current {} IMPORTANT NOTE: Procalcitonin may be elevated without bacterial infection by physiologic stress related to t rauma, santana, chronic dialysis, metastatic cancer, surgery in the past seven days, malaria, some fungal infections, and some forms of vasculitis. The interpretation algorithm may not apply to patients with immunosuppression (equivalent o f >10 mg of prednisone daily), HIV with CD4 cell count < 350 cells/mm3, active malignancy on systemic chemotherapy, solid organ transplant or hematopoietic stem cell transplant ation, or hospital acquired pneumonia. Additionally, some cli nical trials of procalcitonin have excluded patients with sh ock requiring vasopressor use, acute respiratory failure requiring mechanical ventilation, or those with known lung abscess/empyema. For further information please refer to: [email or web address] Performing Organization Address City/State/Zipcode Phone Number [facility] CLIA: [id number] [place] [address] [place] [address] GRAM POSITIVE BLOOD PATHOGENS DNA PROBE-AEROBIC (05/30/2020 2:07 AM CDT) Coagulase Negative Positive (A) Negative [facility] Staphylococcus SERVICES Specimen Blood - VENOUS Narrative Performed At [facility] Coagulase negative Staphylococcus (CoNS) detected by D NA probe. CoNS often contaminate blood cultures from sk in colonization during phlebotomy. Preferred management is to repeat blood cultures, and monitor off antibiotics. Contamination is suggested by culture growth after 4 8 hours, or growth in single culture (i.e., one of two s ets). True bacteremia is suggested by the fever, hypotensi on, and leukocytosis that are not explained by an alternat irina infection, or indwelling foreign devices that appear infected (catheters, lines, or prosthese s). Consider Infectious Diseases consultation if different iation of CoNS bacteremia from contamination is uncertain. If clinical context suggests true bacteremia, preferre d therapy is vancomycin. Please contact the Antimicrobial Stewardship Program w ith questions. Pager: [phone] Testing included eleven identification and three resis tance marker targets. Performing Organization Address City/[facility] Phone Number [facility] CLIA: [id number] [place] [address] [place] [address] BLOOD CULTURE WORKUP (05/30/2020 2:07 AM CDT) Blood Culture Staphylococcus [facility] Workup epidermidis SERVICES Gram stain Gram positive [facility] cocciComment: Aerobic [facility]OSPITAL Bottle LABORATORY Gram stain Gram positive [facility] cocciComment: HOSPITAL Anaerobic Bottle LABORATORY Specimen Blood - VENOUS Organism Antibiotic Method Susceptibility Staphylococcus Clindamycin SUSCEPTIBILITY TESTING <=0.25: S usceptible epidermidis Staphylococcus Erythromycin SUSCEPTIBILITY TESTING >=8: Resi stant epidermidis Staphylococcus Linezolid SUSCEPTIBILITY TESTING 1: Suscep tible epidermidis Staphylococcus Oxacillin SUSCEPTIBILITY TESTING >=4: Resi stant epidermidis Staphylococcus Rifampin SUSCEPTIBILITY TESTING <=0.5: Pagan sceptible epidermidis Staphylococcus Tetracycline SUSCEPTIBILITY TESTING <=1: Susc eptible epidermidis Staphylococcus Trimethoprim/Sulfame SUSCEPTIBILITY TESTING 160: Resistant epidermidis thoxazole Staphylococcus Vancomycin SUSCEPTIBILITY TESTING 2: Suscep tible epidermidis Performing Organization Address [facility] Phone Number [facility] CLIA: [id number] [place] [address] [place] [address] CLIA: [id number] [place] [address], LABORATORY [address] BLOOD CULTURE WORKUP (05/30/2020 2:07 AM CDT) Blood Culture Staphylococcus epidermidis [facility]Y Workup Comment: SERVICES Organism identified by DNA probe For susceptibility results, refer to culture # - [id number] Gram stain Gram positive [facility] cocciComment: Aerobic [facility] Bottle LABORATORY Gram stain Gram positive [facility] cocciComment: HOSPITAL Anaerobic Bottle LABORATORY Specimen Blood - VENOUS Performing Organization Address City/State/Zipcode Phone Number [facility] CLIA: [id number] [place] [address] [place] [address] CLIA: [id number] [place] [address], LABORATORY [address] BLOOD CULTURE SCREEN (05/30/2020 2:07 AM CDT) Blood Culture positive. No growth [facility] Culture-Aerobic See Blood Culture HOSPITAL Workup for LABORATORY additional information. (AA)Comment: Previous preliminary verified result was Culture In Progress on 05/30/2020 at 0701 CDT Blood Culture positive. No growth [facility] Culture-Anaerobic See Blood Culture HOSPITAL Workup for LABORATORY additional information. (AA)Comment: Previous preliminary verified result was Culture In Progress on 05/30/2020 at 0701 CDT Specimen Blood - VENOUS Performing Organization Address City/State/Zipcode Phone Number [facility] CLIA: [id number] [place] [address] [place] [address] CLIA: [id number] [place] [address], [place] [phone] BLOOD CULTURE SCREEN (05/30/2020 2:07 AM CDT) Blood Culture positive. No growth [facility] Culture-Aerobic See Blood Culture HOSPITAL Workup for LABORATORY additional information. (AA)Comment: Previous preliminary verified result was Culture In Progress on 05/30/2020 at 0701 CDT Blood Culture positive. No growth [facility] Culture-Anaerobic See Blood Culture HOSPITAL Workup for LABORATORY additional information. (AA)Comment: Previous preliminary verified result was Culture In Progress on 05/30/2020 at 0701 CDT Specimen Blood - VENOUS Performing Organization Address City/State/Zipcode Phone Number [facility] CLIA: [id number] [place] [address] [place] [address] CLIA: [id number] [place] [address], [place] [phone] RESPIRATORY PANEL BY PCR (05/30/2020 12:20 AM CDT) Pathologist Sig nature Adenovirus Negative Negative [facility] Coronavirus HKU1 Negative Negative [facility] Coronavirus NL63 Negative Negative [facility] Coronavirus 229E Negative Negative [facility] Coronavirus OC43 Negative Negative [facility] Human Metapneumovirus Negative Negative [facility] SERVICES Human Negative Negative [facility] Rhinovirus/Enterovirus SERVICES Influenza A Negative Negative [facility] Influenza B Negative Negative [facility] Parainfluenza Virus 1 Negative Negative [facility] Parainfluenza Virus 2 Negative Negative [facility] Parainfluenza Virus 3 Negative Negative [facility] Parainfluenza Virus 4 Negative Negative [facility] SERVICES Respiratory Syncytial Negative Negative [facility] Virus SERVICES Bordetella parapertussis Negative Negative [facility] SERVICES Bordetella pertussis Negative Negative [facility] Chlamydia pneumoniae Negative Negative [facility] Mycoplasma pneumoniae Negative Negative [facility] Specimen Swab - NASOPHARYNGEAL SWAB Narrative Performed At Negative: [facility] A negative result does not rule-out infection. This assay does not test for all potential infectio us agents. Positive: A positive test result does not necessarily indicate t he presence of viable organism. Performing Organization Address City/State/Zipcode Phone Number [facility] CLIA: [id number] [place] [address] [place] [address] CORONAVIRUS COVID-19 TESTING (05/30/2020 12:20 AM CDT) Pathologist Sig nature SARS-CoV-2 PCR Not Detected Not Detected [facility] Specimen Swab - NASOPHARYNGEAL SWAB Narrative Performed At Cepheid Xpert Xpress SARS-CoV-2 Assay is a rapid, [facility] SERVICES real-time RT-PCR test intended for the qualitative det ection of nucleic acid from the SARS-CoV-2 in nasopharyngeal (DIRECTOR OF RECRUITING) specimens. It is used under Emergency Use Authorizatio n (EUA) by FDA. A positive result is indicative of the presence of SARS-CoV-2 RNA. Clinical correlation with patient hi story and other diagnostic information is necessary to deter mine patient infection status. A negative (Not Detected) result does not preclude SARS-CoV-2 infection. A negative result does not rule out the presence of PCR inhibitors in the patient specimen or SARS-CoV-2 virus RNA concentrations below the limit of detection by the assay. Clinical correlation with tommy ent history and other diagnostic information should be use d in patient management decisions. Invalid: Please collect a new specimen for repeat tommy ent testing if clinically indicated. Performing Organization Address City/[facility] Phone Number [facility] CLIA: [id number] [place] [address] [place] [address] URINALYSIS (05/29/2020 10:39 PM CDT) Pathologist Sig nature APPEARANCE Clear Clear [facility] COLOR Yellow Yellow [facility] PH 6.0 4.8 - 8.0 [facility] SP GRAVITY 1.010 1.003 - 1.030 [facility] GLU U QUAL Normal Normal [facility] BLOOD 1+ (A) Negative [facility] KETONES Negative Negative [facility] PROTEIN 500 mg/dL (A) Negative [facility] UROBILIN Normal Normal [facility] BILIRUBIN Negative Negative [facility] NITRITE Negative Negative [facility] LEUK MARLENA Negative Negative [facility] RBC/HPF 8 (H) 0 - 3 HPF [facility] WBC/HPF 1 0 - 5 HPF [facility] BACTERIA Few (A) Negative [facility] MUCOUS Slight (A) Negative LPF [facility] HYAL CAST 3 (H) <=2 LPF [facility] GRAN CASTS 4 (H) <=1 LPF [facility] Specimen Urine - URINE, CLEAN CATCH Performing Organization Address [facility] Phone Number [facility] CLIA: [id number] [place] [address] XR CHEST 1 VW (05/29/2020 8:45 PM CDT) Specimen Impressions Performed At PACS/VR/DOSE Multifocal interstitial and airspace opa cities are concerning for bronchopneumonia. These findings can also be seen with atypical infectious process, including COVID-19 pneumonia. Disclaimer: Generally, the findings on c hest imaging in COVID-19 are not specific, and overlap with other infecti ons, including influenza, H1N1, SARS and MERS. According to the Centers for Disease Control (CDC) and recent statement of the [employer], viral testing remai ns the only specific method of diagnosis. Confirmation with the viral test is required, even if radiologic findings are suggestive of CO VID-[address]. Preliminary Report Dictated by Resident: Darvin Crabtree I, Ming Lara MD., have reviewed this study and agree with the above report. Narrative Performed At EXAM: XR CHEST 1 VW PACS/VR/DOSE HISTORY: 79 years-old; Male; ACough, SOB , Wheezing COMPARISON: 03/25/2015 radiograph FINDINGS: Left-sided AICD with leads terminating in right atrium , right ventricle and coronary sinus. Lungs/Pleura: Multifocal airspace and in terstitial opacities are noted. There is no pleural effusion or pneumoth orax. Heart/Mediastinum: The cardiomediastinal silhouette is enlarged, unchanged. No acute osseous structure abnormality. Procedure Note [facility], Radiant Results Inft User - 2019 10:34 PM CDT EXAM: XR CHEST 1 VW HISTORY: 79 years-old; Male; ACough, SOB , Wheezing COMPARISON: 03/25/2015 radiograph FINDINGS: Left-sided AICD with leads terminating i n right atrium, right ventricle and coronary sinus. Lungs/Pleura: Multifocal airspace and in terstitial opacities are noted. There is no pleural effusion or pneumoth orax. Heart/Mediastinum: The cardiomediastinal silhouette is enlarged, unchanged. No acute osseous structure abnormality. IMPRESSION Multifocal interstitial and airspace opa cities are concerning for bronchopneumonia. These findings can als o be seen with atypical infectious process, including COVID-19 pneumonia. Disclaimer: Generally, the findings on c hest imaging in COVID-19 are not specific, and overlap with other infecti ons, including influenza, H1N1, SARS and MERS. According to the Centers for Disease Con trol (CDC) and recent statement of the [place], viral testing remains the only specific method of diagnosis. Confirmation with t he viral test is required, even if radiologic findings are suggestive of CO VID-[address]. Preliminary Report Dictated by Resident: Ming Bradley MD., have [facility] and agree with the above report. Performing Organization Address City/[facility] Cent[facility] Phone Number PACS/VR/DOSE CT HEAD WO CONTRAST (05/29/2020 8:34 PM CDT) Specimen Impressions Performed At PACS/VR/DOSE No acute intracranial hemorrhage or mass effect. Narrative Performed At CT HEAD WO CONTRAST PACS/VR/DOSE HISTORY: Altered mental status (AMS), un clear cause COMPARISON: None available. TECHNIQUE: Routine unenhanced brain CT. FINDINGS: No acute intracranial hemorrhage, extracerebral fluid collection, midline shift or mass effect. No acute transcortical infarction. Trace intracranial atherosclerosis. Ventricles are normal. Cerebral volume i s age appropriate. No depressed calvarial fracture. Visualized orbits are unremarkable. Mucosal thickening of a left posterior e thmoid air cell. Procedure Note [facility], Radiant Results Inft User - 2019 8:[address] HEAD WO CONTRAST HISTORY: Altered mental status (AMS), un clear cause COMPARISON: None available. TECHNIQUE: Routine unenhanced brain CT. FINDINGS: No acute intracranial hemorrhage, extrac erebral fluid collection, midline shift or mass effect. No acute transcortical infarction. Trace intracranial atherosclerosis. Ventricles are normal. Cerebral volume i s age appropriate. No depressed calvarial fracture. Visualized orbits are unremarkable. Mucosal thickening of a left posterior e thmoid air cell. IMPRESSION No acute intracranial hemorrhage or mass effect. Performing Organization Address [facility] Cent[facility]ode Phone Number PACS/VR/DOSE AC ABG + LACTIC ACID (05/29/2020 8:06 PM CDT) Pathologist Sig nature PH 7.44 7.35 - 7.45 [facility] PCO2 35 35 - 45 mmHg [facility] PO2 134 (H) 80 - 100 mmHg [facility] HCO3 23 22 - 26 mEq/L [facility] BE -0.6 -3.0 - 3.0 mEq/L [facility] LACTIC ACID 1.10 mmol/L [facility] Specimen Blood - ARTERIAL Performing Organization Address City/[facility] Cent[facility]ode Phone Number [facility] CLIA: [id number] [place] [address] [address] POCT GLUCOSE(AGE >30DAYS) (05/29/2020 8:04 PM CDT) Pathologist Sig nature POCT Glu (age>30days) 130 (A) 70 - 110 mg/dL Specimen Blood - VENOUS POCT GLUCOSE (AUTOMATED) (05/29/2020 8:03 PM CDT) Pathologist Sig nature POCT GLU 130 (H) 70 - 110 mg/dL [facility] Specimen Blood Performing Organization Address City/[facility] Phone Number [facility] CLIA: [id number] [place] [address] LABORATORY [address] [facility] FERRITIN SERUM (05/29/2020 7:59 PM CDT) Pathologist Sig nature FERRITIN 73.2 18.0 - 464.0 ng/mL [facility] Specimen Blood - VENOUS Narrative Performed At Biotin has been reported to cause a negative [facility] bias, interpret results relative to patient's use of biotin. Performing Organization Address City/[facility] Phone Number [facility] CLIA: [id number] [place] [address] LABORATORY [address] LIPID PANEL ([id number])(TOTAL CHOLESTEROL, TRIGLYCERIDES, HDL) (05/29/2020 7:59 PM CDT) Pathologist Sig nature CHOL 174 120 - 200 mg/dL [facility] HDL 37 (L) >40 mg/dL [facility] HDLC RATIO 4.7 <=5.0 [facility] TRIG 85 30 - 170 mg/dL [facility] LDL CHOL 120 <=160 mg/dL [facility] VLDL 17 5 - 60 mg/dL [facility] Specimen Blood - VENOUS Performing Organization Address [facility] Phone Number [facility] CLIA: [id number] [place] [address] URIC ACID (05/29/2020 7:59 PM CDT) Pathologist Sig nature URIC ACID 7.9 3.6 - 8.0 mg/dL [facility] Specimen Blood - VENOUS Performing Organization Address [facility] Number [facility] CLIA: [id number] [place] [address] CREATINE KINASE (05/29/2020 7:59 PM CDT) Pathologist Sig nature CK 88 33 - 194 U/L [facility] Specimen Blood - VENOUS Performing Organization Address [facility] Number [facility] CLIA: [id number] [place], [place] [address] LABORATORY [address] GLYCOSYLATED HEMOGLOBIN (A1C) (05/29/2020 7:59 PM CDT) Pathologist Sig nature HGB A1C 5.4 4.0 - 6.0 % [facility] Specimen Blood - VENOUS Narrative Performed At %A1C (NGSP) Interpretation (ADA) [facility] 4.8-5.6 Normal or (Non-Diabetic Ra nge) 5.7-6.4 Increased Risk (Pre-Diabet ic) >6.5 Diabetes Indicated Performing Organization Address [facility] Number [facility] CLIA: [id number] [place] [address] THYROID STIMULATING HORMONE (05/29/2020 7:59 PM CDT) Pathologist Sig nature TSH 2.74 0.45 - 4.70 mIU/L [facility] Specimen Blood - VENOUS Performing Organization Address [facility] Phone Number [facility] CLIA: [id number] [place] [address] PHOSPHORUS (05/29/2020 7:59 PM CDT) Pathologist Sig nature PHOSPHORUS 2.9 2.5 - 5.0 mg/dL [facility] Specimen Blood - VENOUS Performing Organization Address City/[facility]/Zipcode Phone Number [facility] CLIA: [id number] [place] [address] LABORATORY [address] [address] MAGNESIUM (05/29/2020 7:59 PM CDT) Pathologist Sig nature MAGNESIUM 1.6 (L) 1.7 - 2.4 mg/dL [facility] Specimen Blood - VENOUS Performing Organization Address City/[facility] Phone Number [facility] CLIA: [id number] [place] [address] N-TERMINAL PRO-BNP (05/29/2020 7:59 PM CDT) Pathologist Sig nature NT-proBNP 26,300 (H) <=450 pg/mL [facility] Specimen Blood - VENOUS Narrative Performed At Biotin has been reported to cause a negative [facility] bias, interpret results relative to patient's use of biotin. Performing Organization Address [facility] [place] Phone Number [facility] CLIA: [id number] [place] [address] [place] [address] COVID-19 (ID NOW RAPID TESTING) (05/29/2020 7:59 PM CDT) SARS-CoV-2 Rapid ID Not Detected Not Detected [facility] Specimen Swab - NASOPHARYNGEAL SWAB Narrative Performed At ID NOW COVID-19 Assay is an isothermal nucleic [facility] acid amplification test intended for the qualitative detection of nucleic acid from SARS-CoV-2 viral RNA in nasopharyngeal (DIRECTOR OF RECRUITING) specimens. It is used under Emergency Use Authorization (EUA) by FDA. The limit of detection (LOD) of the assay is 125 Genome Equivalents/mL. A positive result is indicative of the presence of SARS-CoV-2 RNA. Clinical correlation with patient history and other diagnostic information is necessary to determine patient infection status. A negative (Not Detected) result does not preclude SARS-CoV-2 infection. In patients with clinical symptoms and other tests that are consistent with SARS-CoV-2 infection, negative results should be treated as presumptive negative and a new specimen should be tested with alternative PCR molecular test. Invalid: Please collect a new specimen for repeat patient testing if clinically indicated. Performing Organization Address City/State/Zipcode Phone Number [facility] CLIA: [id number] [place] [address] [place] [address] TROPONIN I (05/29/2020 7:59 PM CDT) Pathologist Sig nature TROPONIN I 0.148 (H) <=0.034 ng/mL [facility] Specimen Blood - VENOUS Narrative Performed At Equal or Less than 0.034 ng/ml---Normal [facility] Note: Cardiac troponin begins to rise 3-4 hours after the onset of ischemia. Repeat in 4-6 hours if the sample was drawn within 3-4 hours of the onset of the symptom and found normal. Between 0.035 and 0.120 ng/mL--- Borderline. Questionable myocardial injury or necros is Note: Serial measurement may be necessary to confirm or exclude the diagnosis of myocardial injury or necrosis; Clinical correlation (symptoms, EKGs, imaging studies, and others) required; Repeat in 4-6 hours if clinically indicated. Equal or Higher than 0.121 ng/mL---Abnormal. Myocardial Injury or Necrosis Likely Biotin has been reported to cause a negative bias, interpret results relative to patient's use of biotin. Performing Organization Address [facility]/Zipcode Phone Number [facility] CLIA: [id number] [place] [address] COMP. METABOLIC PANEL (90380) (05/29/2020 7:59 PM CDT) NA 135 135 - 145 [facility] mmol/L HOSPITAL LABORATORY K 4.0 3.5 - 5.0 [facility] mmol/L [facility] CL 98 98 - 108 mmol/L [facility] CO2 TOTAL 27 23 - 31 mmol/L [facility] AGAP 10 2 - 16 [facility] BUN 27 (H) 7 - 23 mg/dL [facility] GLUCOSE 143 (H) 70 - 110 mg/dL [facility] CREATININE 1.51 (H) 0.60 - 1.25 [facility] mg/dL HOSPITAL LAB[facility]ORY TOTAL BILI 0.6 0.1 - 1.1 mg/dL [facility] CALCIUM 9.5 8.6 - 10.6 [facility] mg/dL [facility] T PROTEIN 6.9 6.3 - 8.2 g/dL [facility] ALBUMIN 3.9 3.5 - 5.0 g/dL [facility] ALK PHOS 78 34 - 122 U/L [facility] ALTv 29 5 - 50 U/L [facility] AST(SGOT) 37 13 - 40 U/L [facility] [place]GFR Calculation 45.0 mL/min/1.73m2 [facility] ([facility] LABORATORY [place]) eGFR Calculation 54.6 mL/min/1.73m2 [facility] () [facility] Specimen Blood - VENOUS Narrative Performed At Association of Glomerular Filtration Rate (GFR) [facility] and Staging of Kidney Disease* + + +- + | GFR (mL/min/1.73 m2) | With Kidney Damage | Without Kidney Damage + + +- + | >90 | Stage one | Normal + + +- + | 60-89 | Stage two | Decreased GFR + + +- + | 30-59 | Stage three | Stage three + + +- + | 15-29 | Stage four | Stage four + + +- + | <15 (or dialysis) | Stage five | Stage five + + +- + *Each stage assumes the associated GFR level has been in effect for at least three months. Stages 1 to 5, with or without kidney disease, indicate chronic kidney disease. Notes: Determination of stages one and two (with eGFR >59mL/min/1.73 m2) requires estimation of kidney damage for at least three months as defined by structural or functional abnormalities of the kidney, manifested by either: Pathological abnormalities or Markers of kidney damage (including abnormalities in the composition of the blood or urine or abnormalities in imaging tests). Performing Organization Address City/State/Zipcode Phone Number [facility] CLIA: [id number] [place] [address] CBC WITH DIFF (05/29/2020 7:59 PM CDT) [facility] WBC 6.35 4.20 - 10.70 [facility] 10*3/L [facility] RBC 3.31 (L) 4.26 - 5.52 [facility] 10*6/L HOSPITAL [facility] HGB 10.6 (L) 12.2 - 16.4 [facility] g/dL HOSPITAL LAB[facility]ORY HCT 30.4 (L) 38.4 - 49.3 % [facility] MCV 91.8 81.7 - 95.6 fL [facility] MCH 32.0 26.1 - 32.7 pg [facility] MCHC 34.9 31.2 - 35.0 [facility] g/dL [facility] RDW-SD 46.8 38.5 - 51.6 fL [facility] RDW-CV 13.9 12.1 - 15.4 % [facility] PLT 162 150 - 328 [facility] 10*3/L [facility] MPV 9.9 9.8 - 13.0 fL [facility] NRBC/100 WBC 0.0 0.0 - 10.0 /100 [facility] WBCs [facility] NRBC x10^3 <0.01 10*3/L [facility] GRAN MAT (NEUT) % 82.3 % [facility] IMM GRAN % 0.50 % [facility] LYMPH % 5.5 % [facility] MONO % 10.6 % [facility] EOS % 0.6 % [facility] BASO % 0.5 % [facility] GRAN MAT x10^3(ANC) 5.23 1.99 - 6.95 [facility] 10*3/uL HOSPITAL LABORATORY IMM GRAN x10^3 0.03 0.00 - 0.06 [facility] 10*3/uL HOSPITAL [facility] LYMPH x10^3 0.35 (L) 1.09 - 3.23 [facility] 10*3/uL [facility]ITAL [facility] MONO x10^3 0.67 0.36 - 1.02 [facility] 10*3/uL HOSPITAL LAB[facility]ORY EOS x10^3 0.04 (L) 0.06 - 0.53 [facility] 10*3/uL HOSPITAL LAB[facility] BASO x10^3 0.03 0.01 - 0.09 [facility] 10*3/uL [facility]OSPITAL [facility] Specimen Blood - VENOUS Performing Organization Address City/State/Zipcode Phone Number [facility] CLIA: [id number] [place] [address] documented in this encounter Visit Diagnoses Diagnosis Dyspnea - Primary Other dyspnea and respiratory abnormalit y Fatigue, unspecified type Chronic anemia Anemia, unspecified Acute on chronic heart failure, unspecif ied heart failure type NSTEMI (non-ST elevated myocardial infar ction) Acute myocardial infarction, subendocard ial infarction, episode of care unspecified Chronic obstructive pulmonary disease, u nspecified COPD type Essential hypertension Unspecified essential hypertension Acute respiratory distress Other pulmonary insufficiency, not elsew here classified Pneumonia of both lungs due to infectiou s organism, unspecified part of lung Acute on chronic diastolic congestive he art failure Acute on chronic diastolic heart failure HLD (hyperlipidemia) Other and unspecified hyperlipidemia Essential hypertension, benign Elevated troponin I level Other abnormal blood chemistry Stage 3 chronic kidney disease E44.1 Mild protein-calorie malnutrition Malnutrition of mild degree documented in this encounter Administered Medications Medication Order MAR Action Action Date Dose Rate Site acetaminophen (TYLENOL) tablet Given 05/31/2020 5:54 AM CDT 650 mg 650 mg 650 mg, Oral, Q6HPRN, Starting Tue05/30/20 at 0101, Until Discontinued, Routine, Temp > 38.5 C Given 05/30/2020 8:21 PM CDT 650 mg ascorbic acid (vitamin C) (VITAMIN C) tablet Given 12:12 PM CDT 500 mg 500 mg 500 mg, Oral, TID, First dose on Tue05/30/20 at 0115, Until Discontinued, Routine Given 06/04/2020 9:02 AM CDT 500 mg Given 06/03/2020 8:49 PM CDT 500 mg aspirin chewable tablet 81 mg Given 06/04/2020 9:02 AM CDT 81 mg 81 mg, Oral, DAILY, First dose on Tue05/30/20 at 0100, Until Discontinued, Routine Given 06/03/2020 8:12 AM CDT 81 mg Given 06/02/2020 9:41 AM CDT 81 mg atorvastatin (LIPITOR) tablet 40 mg Given 06/03/2020 8:49 PM CDT 40 mg 40 mg, Oral, QHS, First dose on Tue05/30/20 at 0100, Until Discontinued, Routine Given 06/02/2020 8:51 PM CDT 40 mg Given 06/01/2020 8:52 PM CDT 40 mg bisacodyL (DULCOLAX) suppository 10 mg Given 06/01/2020 10:48 PM CDT 10 mg 10 mg, Rectal, QHS, 3 doses, First dose on Tue06/01/20 at 2215, Last dose on Tue06/03/20 at 2100, Routine cholecalciferol (vitamin D3) tablet Given 06/04/2020 9:01 AM CD T 1,000 Units 1,000 Units 1,000 Units, Oral, BID, First dose on Tue05/30/20 at 0115, Until Discontinued, Routine Given 06/03/2020 8:49 PM CDT 1,000 Units Given 06/03/2020 8:12 AM CDT 1,000 Units dextrose 50 % in water (D50W) injection 25 mL 25 mL, Slow IV Push, PRN, Starting Tue at 0100, Until Discontinued, LICO, Blood Glucose < or = 70 mg/dL and patien t is unable to swallow or has mental status changes. docusate (COLACE) capsule 100 mg Given 06/03/2020 8:12 AM CDT 100 mg 100 mg, Oral, BID, First dose on Tue05/30/20 at 0800, Until Discontinued, Routine Given 06/02/2020 8:51 PM CDT 100 mg Given 06/01/2020 8:52 PM CDT 100 mg glucagon (GLUCAGEN DIAGNOSTIC KIT) injec tion 1 mg 1 mg, Intramuscular, PRN, Starting Tue at 0100, Until Discontinued, LICO, Blood Glucose < or = 70 mg/dL and patient is unable to swallow or has mental changes. haloperidol lactate (HALDOL) injection 5 mg Given 05/31/2020 9:16 PM CDT 5 mg 5 mg, Slow IV Push, QHSPRN, Starting 05/31/20 at 2016, Until Discontinued, Routine, insomnia, psychosis, agitation heparin (porcine) injection Given 06/04/2020 12:13 PM CDT 5,000 Units Abdomen-SC 5,000 Units 5,000 Units, Subcutaneous, Q8H, First dose on Tue05/30/20 at 0600, Until Discontinued, Routine Given 06/04/2020 5:08 AM CDT 5,000 Units Abdo men-SC Given 06/03/2020 10:56 PM CDT 5,000 Units Abdo men-SC levoFLOXacin (LEVAQUIN) tablet 750 mg Given 06/04/2020 1:37 PM CDT 750 mg 750 mg, Oral, Q48H, First dose on Tue06/02/20 at 1100, Until Discontinued, LICO, Reason for Anti-Infective: Empiric Therapy for Suspected Infection, Empiric Therapy Site: Respiratory, Duration of therapy: 72 hours Given 06/02/2020 12:51 PM CDT 750 mg metoprolol tartrate (LOPRESSOR) tablet 2 5 mg Given 06/04/2020 9:02 AM CDT 25 mg 25 mg, Oral, BID, First dose on Tue05/30/20 at 0100, Until Discontinued, Routine Given 06/03/2020 8:12 AM CDT 25 mg Given 06/02/2020 8:51 PM CDT 25 mg ondansetron (ZOFRAN (PF)) injection 4 mg 4 mg, Slow IV Push, Q6HPRN, Starting Tue05/30/20 at 01 01, Until Discontinued, Routine, Nausea and Vomiting (N/V) primidone (MYSOLINE) tablet 250 mg Given 06/04/2020 12:13 PM CDT 250 mg 250 mg, Oral, Q6H, First dose on Tue05/30/20 at 0100, Until Discontinued, Routine Given 06/04/2020 5:08 AM CDT 250 mg Given 06/03/2020 10:56 PM CDT 250 mg sacubitriL-valsartan (ENTRESTO) 97-103 mg Given 2019 9:04 AM CDT 1 tablet tablet 1 tablet 1 tablet, Oral, BID, First dose on Tue05/30/20 at 0800, Until Discontinued, Routine, body team member approving Restricted medication: MEGADC Given 06/03/2020 8:50 PM CDT 1 tablet Given 06/03/2020 8:18 AM CDT 1 tablet sennosides (SENOKOT) tablet 8.6 mg Given 06/03/2020 8:12 AM CDT 8.6 mg 8.6 mg, Oral, BID, First dose on Tue06/01/20 at 2215, Until Discontinued, Routine Given 06/02/2020 8:51 PM CDT 8.6 mg Given 06/02/2020 9:41 AM CDT 8.6 mg Sliding Scale Insulin - Aspart Given 06/03/2020 8:41 PM CDT 1 U nits Abdomen-SC (NOVOLOG) + Fsbg Testing Subcutaneous, TID MEALS+HS, First dose on Tue05/30/20 at 0800, Until Discontinued, Routine Given 06/03/2020 12:00 PM CDT 1 Units Abdo men-SC Given 06/01/2020 12:09 PM CDT 1 Units Abdo men-SC sodium ferric gluconate (FERRLECIT) 125 mg New Bag 06/04 9:04 AM CDT 125 mg in NaCl 0.9% (NS) 100 mL IV piggyback 125 mg, IV Piggyback, DAILY, First dose on 05/31/20 at 0900, Until Discontinued, 100 mL, body team member approving Restricted medication: ANITHACLARAHELENA SEGURA New Bag 06/03/2020 8:18 AM CDT 125 mg New Bag 06/02/2020 9:41 AM CDT 125 mg zinc sulfate (ORAZINC) capsule 220 mg Given 06/04/2020 9:01 AM CDT 220 mg 220 mg, Oral, BID, First dose on Tue05/30/20 at 0115, Until Discontinued, Routine Given 06/03/2020 8:49 PM CDT 220 mg Given 06/03/2020 8:12 AM CDT 220 mg Medication Order MAR Action Action Date Dose Rate Site albuterol (VENTOLIN) inhaler 8 Given 05/29/2020 8:04 PM CDT 8 P uffs Puff 8 Puff, Inhalation, ONCE, 1 dose, [facility] 05/29/20 at 2045, LICO, Is this order for a patient with suspected or confirmed COVID-19 infection? Yes epoetin renetta-epbx (RETACRIT) Given 06/01/2020 2:59 PM CDT 4,000 Units Abdomen-SC injection 4,000 Units 4,000 Units, Subcutaneous, ONCE, 1 dose, 06/01/20 at 1445, Routine, body team member approving Restricted medication: JR LEAVITT ANGELES ferrous sulfate tablet 325 mg Given 06/02/2020 4:59 PM CDT 325 mg 325 mg, Oral, BID MEALS, First dose on 06/01/20 at 0800, Until Discontinued, Routine Given 06/02/2020 9:41 AM CDT 325 mg Given 06/01/2020 5:56 PM CDT 325 mg furosemide (LASIX) injection 40 mg Given 05/31/2020 5:54 AM CDT 40 mg 40 mg, IV Push, Q8H, First dose (after last reorder) on Tue05/30/20 at 0600, Until Discontinued, LICO Given 05/30/2020 8:22 PM CDT 40 mg Given 05/30/2020 3:41 PM CDT 40 mg furosemide (LASIX) injection 40 mg Given 06/01/2020 8:47 AM CDT 40 mg 40 mg, IV Push, DAILY, First dose (after last modification) on Tue06/01/20 at 0900, Until Discontinued, LICO furosemide (LASIX) injection 60 mg Given 05/29/2020 10:39 PM CDT 60 mg 60 mg, IV Push, ONCE, 1 dose, [facility] 05/29/20 at 2215, LICO KCL (KLOR-CON M20) tablet 20 mEq Given 06/02/2020 8:54 PM CDT 20 mEq 20 mEq, Oral, ONCE NOW, 1 dose, 06/02/20 at 2130, Routine KCL (KLOR-CON M20) tablet 40 mEq Given 05/31/2020 8:23 PM CDT 40 mEq 40 mEq, Oral, ONCE, 1 dose, 05/31/20 at 1945, Routine levoFLOXacin in D5W (LEVAQUIN) 750 mg/150 mL Given 2:08 AM CDT 750 mg Piggyback 750 mg 750 mg, IV Piggyback, Q24H ABX, First dose on Tue05/30/20 at 0200, Until Discontinued, 150 mL, Reason for Anti-Infective: Documented Infection, Documented Infection Site: Respiratory, Duration of Therapy: 10 days Given 06/01/2020 1:35 AM CDT 750 mg Given 05/31/2020 1:50 AM CDT 750 mg magnesium sulfate in water 2 gram/50 mL (4 %) New Bag 8:23 PM CDT 2 g infusion 2 g 2 g, IV Piggyback, ONCE, 1 dose, 05/31/20 at 1945, Routine nitroglycerin (NITROL) 2 % Applied 05/29/2020 10:47 PM CDT 1 Inch Right Breast ointment 1 Inch 1 Inch, Transdermal (Apply To Skin), ONCE, 1 dose, Marina 05/29/20 at 2215, LICO piperacillin-tazobactam (ZOSYN) 2.25 Given 06/02/2020 9:41 AM CDT 2.25 g 100 mL/hr g/50 mL RTU 2.25 g, IV Piggyback, Q6H ABX, First dose on Tue05/31/20 at 1945, Until Discontinued, 50 mL, Reason for Anti-Infective: Documented Infection, Documented Infection Site: Respiratory, Duration of Therapy: 10 days Given 06/02/2020 2:08 AM CDT 2.25 g 100 mL/hr Given 06/01/2020 8:51 PM CDT 2.25 g 100 mL/hr Polyethylene Glycol 3350 (MIRALAX) powde r 17 g Given 06/02/2020 9:41 AM CDT 17 g 17 g, Oral, DAILY, 2 doses, First dose on Tue06/02/20 at 0900, Last dose on Tue06/03/20 at 0900, Routine sulfur hexafluoride microsphr (LUMASON) Given 05/30/2020 11:30 A M CDT 5 mL injection 5 mL 5 mL, Intravenous, ONCE, 1 dose, Tue05/30/20 at 1400, Routine, body team member approving Restricted medication: VANESSA SANDERS vancomycin (VANCOCIN) 1,000 mg in NaCl Given 06/01/2020 12:09 PM CDT 1,000 mg 0.9% (NS) 250 mL VIAL-MATE IV piggyback 1,000 mg (rounded from 990 mg = 15 mg/kg 66 kg), IV Piggyback, Q24H ABX, First dose on Tue05/30/20 at 1215, Until Discontinued, 250 mL, Reason for Anti-Infective: Documented Infection, Documented Infection Site: Respiratory, Duration of Therapy: 10 days Given 05/31/2020 12:03 PM CDT 1,000 mg Given 05/30/2020 1:05 PM CDT 1,000 mg documented in this encounter Additional Health Concerns Infection Onset Date Last Indicated Resolved Time COVID-19 Rule Out 05/29/2020 05/29/2020 05/29/2020 8: 54 PM CDT COVID-19 Rule Out 05/29/2020 05/30/2020 05/30/2020 7: 49 AM CDT documented as of this encounter Insurance Payer Benefit Plan Subscriber ID Effective Dates Phone Address Type / Group HUMANA - HUMANA CHOICE [id number] 2012-Presen Medicare Adv MANAGED t PPO MEDICARE documented as of this encounter Advance Directives Type Date Recorded Patient Opticianry Teacher Explanati on Advance Directives and Living Will Power of Repeat Chief
[2020-08-16 21:50] LABS: Absolute Lymphocytes (CBC) 0.8 K/uL (0.7-4.9); Hematocrit 30.6 % (39.6-49.0); Lymphocytes % 15.5 % (15.3-44.8); MPV 8.3 fL (7.6-11.3); Protime INR 1.01; RBC Red Blood Cell Count 3.27 M/uL (4.33-5.43)
[2020-08-16 22:14] LABS: Albumin 3.2 g/dL (3.4-5.0); Bilirubin Direct 0.1 mg/dL (0-0.2); Bilirubin Total 0.4 mg/dL (0.2-1.0); Magnesium 1.6 mg/dL (1.8-2.4); Potassium 4.4 mmol/L (3.5-5.1); Protein, Total 6.7 g/dL (6.4-8.2); Troponin (Emerg Dept Use Only) 0.04 ng/mL (0.0-0.045)
[2020-08-16] MEDS ORDERED: CEFTRIAXONE/SWI 1gm 1 GM/10 ML SYR ONE (23:28)
[2020-08-16] MEDS ORDERED: NA CHLORIDE 0.9% 250 ML ONE (23:28)
[2020-08-16] MEDS ORDERED: FUROSEMIDE 40 MG/4 ML VIAL ONE (23:28)
[2020-08-16] MEDS ORDERED: AZITHROMYCIN 500 MG INJ IVPB ONE (23:28)
--- NOTE | 2020-08-17 00:27 | ER ---
Nurse's Notes [facility] Name: Jimbo Cat Age: 80 yrs Sex: Male : 1940 Arrival Date: 08/16/2020 Time: 21:08 Bed 5 Private MD: Diagnosis: CHF Exacerbation;COPD Exacerbation Presentation: 08/16 21:19 Chief complaint: EMS states: complaint of shortness of breath. wheezing on 4 quadrants rr5 duoneb treatment given 2x and solumedrol 125 mg IV. patient has defibrillator. Coronavirus screen: cough unrelated to allergies, difficulty breathing, shortness of breath, Client presents with at least one sign or symptom that may indicate coronavirus-19. Standard/surgical mask placed on the client. Provider contacted for isolation considerations. Ebola Screen: Patient negative for fever greater than or equal to 101.5 degrees Fahrenheit, and additional compatible Ebola Virus Disease symptoms Patient denies exposure to infectious person. Patient denies travel to an Ebola-affected area in the 21 days before illness onset. Initial Sepsis Screen: Does the patient meet any 2 criteria? RR > 20 per min. Does the patient have a suspected source of infection? Yes: Productive cough/pneumonia. Risk Assessment: Do you want to hurt yourself or someone else? Patient reports no desire to harm self or others. Onset of symptoms was August 14, 2020. 21:19 Method Of Arrival: EMS: [facility] rr5 21:19 Acuity: SYDNIE 3 rr5 21:19 Care prior to arrival: Medication(s) given: duoneb and solumedrol 125 mg. rr5 Triage Assessment: 21:35 Respiratory: Onset: The symptoms/episode began/occurred gradually, the patient has mild rr5 shortness of breath. 21:35 General: Appears in no apparent distress. rr5 Historical: - Allergies: 21:23 No Known Allergies; rr5 - Home Meds: 21:23 carvedilol Oral [Active]; Eliquis 5 mg Oral tab 1 tab 2 times per day [Active]; Lasix rr5 Oral [Active]; metoprolol tartrate 25 mg Oral tab 1 tab 2 times per day [Active]; Plavix 75 mg Oral tab 1 tab once daily [Active]; Primidone Oral [Active]; Protonix 40 mg Oral TbEC 1 tab once daily [Active]; - PMHx: 21:23 Alcoholism; COPD; CVA; Diabetes; HEART FAILURE; Hypertension; possible dementia; rr5 - PSHx: 21:23 defibrillator; rr5 - Immunization history:: Adult Immunizations up to date. - Social history:: Smoking status: unknown. Screenin:35 Abuse screen: Denies threats or abuse. Denies injuries from another. Nutritional rr5 screening: No deficits noted. Tuberculosis screening: No symptoms or risk factors identified. Fall Risk IV access (20 points). Total Johnston Fall Scale indicates No Risk (0-24 pts). Assessment: 21:35 General: Appears in no apparent distress. comfortable, Behavior is calm, cooperative, rr5 appropriate for age. Pain: Denies pain. Neuro: Level of Consciousness is awake, alert, obeys commands, Oriented to person, place, time. Cardiovascular: Capillary refill < 3 seconds Patient's skin is warm and dry. Rhythm is 21:35 Respiratory: Reports shortness of breath cough that is Airway is patent Respiratory rr5 effort is even, unlabored, Respiratory pattern is tachypnea Breath sounds with wheezes. GI: No signs and/or symptoms were reported involving the gastrointestinal system. : No signs and/or symptoms were reported regarding the genitourinary system. EENT: No signs and/or symptoms were reported regarding the EENT system. Derm: Skin is intact, is healthy with good turgor, Skin temperature is warm. Musculoskeletal: Circulation, motion, and sensation intact. Capillary refill < 3 seconds. 22:30 Reassessment: Patient appears in no apparent distress at this time. Patient is alert, rr5 oriented x 3, equal unlabored respirations, skin warm/dry/pink. waiting for results Patient states feeling better. Patient states symptoms have improved. 23:23 Reassessment: Patient appears in no apparent distress at this time. Patient is alert, rr5 oriented x 3, equal unlabored respirations, skin warm/dry/pink. ED provider reassess the patient and advised for admission. he agreed for the plan of care. 08/17 00:31 Reassessment: Patient appears in no apparent distress at this time. Patient is alert, rr5 oriented x 3, equal unlabored respirations, skin warm/dry/pink. hospitalist at bedside. 01:30 Reassessment: Patient appears in no apparent distress at this time. Patient is alert, rr5 oriented x 3, equal unlabored respirations, skin warm/dry/pink. Patient states feeling better. Patient states symptoms have improved. Vital Signs: 08/16 21:19 BP 155 / 116; Pulse 85; Resp 24; Temp 98.5; Pulse Ox 98% on R/A; Weight 67.13 kg; Pain rr5 0/10; 23:00 BP 136 / 72; Pulse 80; Resp 20; Pulse Ox 98% on 2 lpm NC; rr5 08/17 00:30 BP 128 / 73; Pulse 75; Resp 19; Pulse Ox 99% on 2 lpm NC; rr5 01:19 BP 115 / 73; Pulse 70; Resp 17; Pulse Ox 98% on 2 lpm NC; rr5 ED Course: 08/16 21:08 Patient arrived in ED. sg 21:09 Cruz Williamson MD is Attending Physician. mh7 21:19 Richard Barron, RN is Primary Nurse. rr5 21:22 Triage completed. rr5 21:24 Arm band placed on right wrist. rr5 21:35 Patient has correct armband on for positive identification. Placed in gown. Bed in low rr5 position. Call light in reach. 21:35 athletic monitor on. Pulse ox on. NIBP on. rr5 21:35 Maintain EMS IV. Dressing intact. Good blood return noted. Site clean \T\ dry. Gauge \T\ rr 5 site: G20 right forearm. 21:40 EKG done, by ED staff, reviewed by Cruz Williamson MD. rr5 21:45 Initial lab(s) drawn, by ED staff, sent to lab. rr5 22:03 Flu and/or RSV swab sent to lab. covid. rr5 22:14 XRAY Chest (1 view) In Process Unspecified. EDMS 23:25 First set of blood cultures drawn by me, Second set of blood cultures drawn by me. ds4 23:40 Blood Culture Adult (2) Sent. ds4 08/17 00:25 Michele Kaur is Hospitalizing Provider. 7 00:44 No provider procedures requiring assistance completed. Patient admitted, IV remains in rr5 place. intact, No redness/swelling at site. Administered Medications: 08/16 23:22 Drug: Lasix 40 mg Route: IVP; Site: right forearm; rr5 08/17 00:44 Follow up: Response: No adverse reaction; Other; positive urine output post lasix rr5 00:00 Drug: Rocephin - (cefTRIAXone) 1 grams Route: IVPB; Infused Over: 30 mins; Site: right rr5 forearm; 00:44 Follow up: Response: No adverse reaction; IV Status: Completed infusion rr5 00:17 Dru mg of (Zithromax 500 mg, NS 0.9% 250 ml) Route: IVPB; Infused Over: 1 hrs; rr5 Site: right forearm; 01:10 Follow up: Response: No adverse reaction; IV Status: Completed infusion; IV Intake: rr5 250ml Intake: 01:10 IV: 250ml; Total: 250ml. rr5 01:19 PO: 240ml; Total: 490ml. rr5 Output: 00:05 Urine: 400ml (Voided); Total: 400ml. rr5 01:19 Urine: 350ml (Voided); Total: 750ml. rr5 Outcome: 00:26 Decision to Hospitalize by Provider. [facility] 01:38 Admitted to Med/surg accompanied by tech, via stretcher, room 212. rr5 01:38 Condition: stable 01:38 Instructed on the need for admit. 01:43 Patient left the ED. rr5 Signatures: Dispatcher [employer] EDMS Jonny Terrazas, SABINE REGALADO Rubens Colmenares 4 Richard Barron RN RN rr5 Cruz Williamson MD MD 7
--- NOTE | 2020-08-17 00:27 | EDPHYS ---
Physician Documentation [facility] Name: Jimbo Cat Age: 80 yrs Sex: Male : 1940 Arrival Date: 08/16/2020 Time: 21:08 Bed 5 Private MD: ED Physician Cruz Williamson HPI: 08/16 21:27 This 80 yrs old Male presents to ER via EMS with complaints of Shortness Of mh7 Breath. 21:27 The patient has shortness of breath at rest. Onset: The symptoms/episode began/occurred mh7 2 day(s) ago. Duration: The symptoms are continuous, and are unchanged since they started. The patient's shortness of breath is aggravated by coughing, is alleviated by nothing. 21:28 Associated signs and symptoms: Pertinent positives: non-productive cough, Pertinent mh7 negatives: chest pain, productive cough, diaphoresis, dizziness, fever, hemoptysis, loss of consciousness, nausea, numbness in extremities, visual changes, vomiting. Severity of symptoms: At their worst the symptoms were moderate today, in the emergency department the symptoms have improved moderately. Historical: - Allergies: 21:23 No Known Allergies; rr5 - Home Meds: 21:23 carvedilol Oral [Active]; Eliquis 5 mg Oral tab 1 tab 2 times per day [Active]; Lasix rr5 Oral [Active]; metoprolol tartrate 25 mg Oral tab 1 tab 2 times per day [Active]; Plavix 75 mg Oral tab 1 tab once daily [Active]; Primidone Oral [Active]; Protonix 40 mg Oral TbEC 1 tab once daily [Active]; - PMHx: 21:23 Alcoholism; COPD; CVA; Diabetes; HEART FAILURE; Hypertension; possible dementia; rr5 - PSHx: 21:23 defibrillator; rr5 - Immunization history:: Adult Immunizations up to date. - Social history:: Smoking status: unknown. ROS: 21:28 Constitutional: Negative for fever, chills, and weight loss, Eyes: Negative for injury, mh7 pain, redness, and discharge, ENT: Negative for injury, pain, and discharge, Neck: Negative for injury, pain, and swelling, Cardiovascular: Negative for chest pain, palpitations, and edema, Abdomen/GI: Negative for abdominal pain, nausea, vomiting, diarrhea, and constipation, Back: Negative for injury and pain, : Negative for injury, bleeding, discharge, and swelling, MS/Extremity: Negative for injury and deformity, Skin: Negative for injury, rash, and discoloration, Neuro: Negative for headache, weakness, numbness, tingling, and seizure, Psych: Negative for depression, anxiety, suicide ideation, homicidal ideation, and hallucinations, Allergy/Immunology: Negative for hives, rash, and allergies, Endocrine: Negative for neck swelling, polydipsia, polyuria, polyphagia, and marked weight changes, Hematologic/Lymphatic: Negative for swollen nodes, abnormal bleeding, and unusual bruising. Exam: 21:28 Constitutional: This is a well developed, well nourished patient who is awake, alert, mh7 and in no acute distress. Head/Face: Normocephalic, atraumatic. Eyes: Pupils equal round and reactive to light, extra-ocular motions intact. Lids and lashes normal. Conjunctiva and sclera are non-icteric and not injected. Cornea within normal limits. Periorbital areas with no swelling, redness, or edema. Neck: Trachea midline, no thyromegaly or masses palpated, and no cervical lymphadenopathy. Supple, full range of motion without nuchal rigidity, or vertebral point tenderness. No Meningismus. Chest/axilla: Normal chest wall appearance and motion. Nontender with no deformity. No lesions are appreciated. Cardiovascular: Regular rate and rhythm with a normal S1 and S2. No gallops, murmurs, or rubs. Normal PMI, no JVD. No pulse deficits. 21:28 Abdomen/GI: Soft, non-tender, with normal bowel sounds. No distension or tympany. No guarding or rebound. No evidence of tenderness throughout. Back: No spinal tenderness. No costovertebral tenderness. Full range of motion. Skin: Warm, dry with normal turgor. Normal color with no rashes, no lesions, and no evidence of cellulitis. MS/ Extremity: Pulses equal, no cyanosis. Neurovascular intact. Full, normal range of motion. Neuro: Awake and alert, GCS 15, oriented to person, place, time, and situation. Cranial nerves II-XII grossly intact. Motor strength 5/5 in all extremities. Sensory grossly intact. Cerebellar exam normal. Normal gait. Psych: Awake, alert, with orientation to person, place and time. Behavior, mood, and affect are within normal limits. 21:28 Constitutional: The patient appears 21:28 Respiratory: the patient does not display signs of respiratory distress, Respirations: prolonged exhalation, that is mild, Breath sounds: rales, that are mild, are located in both bases, rhonchi, that are mild, are scattered, Respiratory rate: 20 Vital Signs: 21:19 BP 155 / 116; Pulse 85; Resp 24; Temp 98.5; Pulse Ox 98% on R/A; Weight 67.13 kg; Pain rr5 0/10; 23:00 BP 136 / 72; Pulse 80; Resp 20; Pulse Ox 98% on 2 lpm NC; rr5 08/17 00:30 BP 128 / 73; Pulse 75; Resp 19; Pulse Ox 99% on 2 lpm NC; rr5 01:19 BP 115 / 73; Pulse 70; Resp 17; Pulse Ox 98% on 2 lpm NC; rr5 MDM: 00:13 Differential diagnosis: Anemia Anxiety Reaction asthma, Bronchitis CHF exacerbation, mh7 Chronic Obstructive Pulmonary Disease Myocardial Infarction pneumonia, pulmonary edema. Data reviewed: vital signs, nurses notes, old medical records, lab test result(s), cardiac enzymes, CBC, electrolytes, Flu: negative urinalysis, EKG, radiologic studies, plain films. 00:24 Data interpreted: Pulse oximetry: on 2L(s) per nasal canula, is 98 %. Interpretation: mh7 acceptable. Counseling: I had a detailed discussion with the patient and/or guardian regarding: the historical points, exam findings, and any diagnostic results supporting the discharge/admit diagnosis, the presence of at least one elevated blood pressure reading (>120/80) during this emergency department visit, lab results, radiology results, the need for further work-up and treatment in the hospital. Response to treatment: the patient's symptoms have markedly improved after treatment. 00:26 Patient medically screened. [facility] 08/16 21:18 Order name: Basic Metabolic Panel; Complete Time: 23:10 [facility] 08/16 21:18 Order name: CBC with Diff; Complete Time: 22:06 [facility] 08/16 21:18 Order name: LFT's; Complete Time: 23:10 [facility] 08/16 21:18 Order name: Magnesium; Complete Time: 23:10 [facility] 08/16 21:18 Order name: NT PRO-BNP; Complete Time: 23:10 [facility] 08/16 21:18 Order name: PT-INR; Complete Time: 22:06 [facility] 08/16 21:18 Order name: Troponin (emerg Dept Use Only); Complete Time: 23:10 [facility] 08/16 21:18 Order name: XRAY Chest (1 view) [facility] 08/16 21:19 Order name: Influenza Screen (a \T\ B) [facility] 08/16 23:12 Order name: Blood Culture Adult (2) [facility] 08/17 00:30 Order name: SARS-COV-2 RT PCR [facility] 08/16 21:18 Order name: EKG; Complete Time: 21:19 [facility] 08/16 21:18 Order name: Cardiac monitoring; Complete Time: 21:43 [facility] 08/16 21:18 Order name: EKG - Nurse/Tech; Complete Time: 21:43 [facility] 08/16 21:18 Order name: IV Saline Lock; Complete Time: :43 [facility] 08/16 21:18 Order name: Labs collected and sent; Complete Time: :43 [facility] 08/16 21:18 Order name: O2 Per Protocol; Complete Time: :43 [facility] 08/16 21:18 Order name: O2 Sat Monitoring; Complete Time: :43 [facility] Administered Medications: 08/16 23:22 Drug: Lasix 40 mg Route: IVP; Site: right forearm; rr5 08/17 00:44 Follow up: Response: No adverse reaction; Other; positive urine output post lasix rr5 00:00 Drug: Rocephin - (cefTRIAXone) 1 grams Route: IVPB; Infused Over: 30 mins; Site: right rr5 forearm; 00:44 Follow up: Response: No adverse reaction; IV Status: Completed infusion rr5 00:17 Dru mg of (Zithromax 500 mg, NS 0.9% 250 ml) Route: IVPB; Infused Over: 1 hrs; rr5 Site: right forearm; 01:10 Follow up: Response: No adverse reaction; IV Status: Completed infusion; IV Intake: rr5 250ml Disposition: 08/17/20 00:26 Hospitalization ordered by Michele Kaur for Observation. Preliminary diagnosis are CHF Exacerbation, COPD Exacerbation. - Bed requested for Telemetry/MedSurg (observation). - Status is Observation. rr5 - Condition is Stable. - Problem is an acute exacerbation. - Symptoms have improved. Signatures: Dispatcher [employer] Lisa Davila RN RN Richard Barron RN RN rr5 Cruz Williamson MD MD 7 Corrections: (The following items were deleted from the chart) 08/16 23:26 21:29 CORONAVIRUS+MR.LAB.BRZ ordered. [facility] 08/17 01:04 00:26 Hospitalization Ordered by Michele Kaur for Observation. Preliminary diagnosis cg is CHF Exacerbation; COPD Exacerbation. Bed requested for Telemetry/MedSurg (observation). Status is Observation. Condition is Stable. Problem is an acute exacerbation. Symptoms have improved. mh7 01:43 01:04 08/17/2020 00:26 Hospitalization Ordered by Michele Kaur for Observation. rr5 Preliminary diagnosis is CHF Exacerbation; COPD Exacerbation. Bed requested for Telemetry/MedSurg (observation). Status is Observation. Condition is Stable. Problem is an acute exacerbation. Symptoms have improved. cg
--- NOTE | 2020-08-17 01:21 | P.HP ---
Certification for Inpatient Patient admitted to: Observation With expected LOS: <2 Midnights Practitioner: I am a practitioner with admitting privileges, knowledge of patient current condition, hospital course, and medical plan of care. Services: Services provided to patient in accordance with Admission requirements found in Title 42 Section 412.3 of the Code of Federal Regulations Patient History Date of Service: 08/17/20 Reason for admission: Shortness of breath History of Present Illness: 80-year-old gentleman with a history of chronic systolic heart failure, chronic alcoholism, atrial fibrillation, status post pacemaker presented to the emergency department with a complaint of progressive shortness of breath of 2 days duration. Patient denied any wheezing but admitted to coughing. He denied any chest pain. He denied any fever. Chest x-ray in the emergency department demonstrated increased bilateral interstitial opacities and haziness in the left lower. His BNP is elevated to 8000. EKG demonstrated paced rhythm. Her shortness of breath partially improved with IV Lasix given in the ED. Patient is placed under observation for further management of CHF exacerbation. Allergies No Known Allergies Allergy (Verified 11/08/17 06:11) Home Medications: Colchicine [Colcrys *] 1 tab PO DAILY PRN 12/05/18 Furosemide 20 mg PO BID 12/05/18 Metoprolol Tartrate 25 mg PO Q12H 12/05/18 Primidone [Mysoline *] 250 mg PO QID 12/05/18 lisinopriL [Lisinopril] 10 mg PO DAILY #30 tablet 12/05/18 predniSONE [Prednisone*] 5 mg PO DIRECTED 12/05/18 - Past Medical/Surgical History Diabetic: Yes -: pacemaker/defibrillator 2010 (pacemaker evaluated 1 month ago) -: Diabetes mellitus type 2 -: HTN -: Hyperlipidemia -: CVA 2008 -: Depression -: MARZENA cataracts -: Moderate mitral regurgitation -: CHF, systolic dysfunction -: cervical vertebrae surgery x2 -: benign tumor removed from L knee -: appendectomy -: tonsilectomy -: 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 - Family History Mother -: Heart disease, Hypertension, Diabetes, Cancer - Social History Alcohol use: Yes CD- Drugs: No Caffeine use: No Review of Systems Other: Except as documented, all other systems reviewed and negative. Physical Examination - Physical Exam General: Alert, In no apparent distress, Oriented x3 HEENT: Atraumatic, PERRLA, Mucous membr. moist/pink, EOMI, Sclerae nonicteric Neck: Supple, JVD not distended Respiratory: Clear to auscultation bilaterally, Other (Mild bibasilar rales) Cardiovascular: No edema, Regular rate/rhythm, Normal S1 S2, No murmurs Capillary refill: <2 Seconds Gastrointestinal: Normal bowel sounds, Soft and benign, Non-distended, No tenderness Musculoskeletal: No swelling, No tenderness Integumentary: No rashes, No erythema Neurological: Normal speech, Normal strength at 5/5 x4 extr, Cranial nerves 3-12 intact - Studies Laboratory Data (last 24 hrs) 08/16/20 21:37: PT 11.9, INR 1.01 08/16/20 21:37: WBC 5.0, Hgb 10.8 L, Hct 30.6 L, Plt Count 174 08/16/20 21:37: Sodium 129 L, Potassium 4.4, BUN 33 H, Creatinine 1.62 H, Glucose 112 H, Magnesium 1.6 L D, Total Bilirubin 0.4, AST 23, ALT 20, Alkaline Phosphatase 76 Microbiology Data (last 24 hrs): 08/16/20 21:50 Nasopharnyx Influenza Type A Antigen Screen - Final 08/16/20 21:50 Nasopharnyx Influenza Type B Antigen Screen - Final Assessment and Plan - Problems (Diagnosis) (1) Acute on chronic systolic CHF (congestive heart failure) Onset Date: 11/08/17 Current Visit: No Status: Acute (2) Chronic kidney disease, stage 3 Current Visit: Yes Status: Acute (3) Chronic atrial fibrillation Current Visit: Yes Status: Acute (4) Chronic alcoholism Current Visit: Yes Status: Acute - Plan Place patient under observation. Treat CHF exacerbation with IV Lasix Daily weight, intake and output measurement. Salt restriction. Echocardiogram as outpatient. Continue home dose Metoprolol for AFib rate control. Monitor for alcohol withdrawal. Ativan IV p.r.n. for symptoms of alcohol withdrawal. - Advance Directives Does patient have a Living Will: No Does patient have a Durable POA for Healthcare: Yes
[2020-08-17] MEDS ORDERED: ALBUTEROL 2.5 MG/3 ML NEB SOL NEB PRN (01:34)
[2020-08-17] MEDS ORDERED: LORazepam 2 MG/ML VIAL IV PRN (01:34)
[2020-08-17 02:44] VITALS: BMI 23.3
[2020-08-17] MEDS ORDERED: MAGNESIUM SULFATE 1 gm IVPB 1 GM/100 ML BAG IV ONE (03:12)
[2020-08-17] MEDS ORDERED: FUROSEMIDE 40 MG/4 ML VIAL IV SCH (09:00)
[2020-08-17] MEDS ORDERED: ENOXAPARIN 40 MG/0.4 ML SQ SCH (09:00)
[2020-08-17 12:36] VITALS: BP 134/80; TEMP 98.5
[2020-08-17 13:17] LABS: Magnesium 1.8 mg/dL (1.8-2.4); Potassium 4.2 mmol/L (3.5-5.1)
[2020-08-17 14:23] VITALS: O2SAT 98
--- NOTE | 2020-08-17 15:08 | P.DS ---
Admission Date: 08/17/20 Discharge Date: 08/17/20 Primary Care Provider: Dr. Powell Disposition: ROUTINE DISCHARGE Discharge Condition: GOOD Reason for Admission: Shortness of breath Procedures: CXR (08/08): Cardiomegaly with interstitial pulmonary edema pattern. Pulmonary vascular congestion, diffuse bilateral interstitial opacities. Problem list Acute on Chronic systolic heart failure Chronic alcoholism, last drink a few months ago CKD 3 Atrial fibrillation s/p pacemaker/defib 2010 COPD DM2 h/o CVA Brief History of Present Illness: 80-year-old gentleman with a history of chronic systolic heart failure, chronic alcoholism, atrial fibrillation, status post pacemaker presented to the emergency department with a complaint of progressive shortness of breath of 2 days duration. Patient denied any wheezing but admitted to coughing. He denied any chest pain. He denied any fever. Chest x-ray in the emergency department demonstrated increased bilateral interstitial opacities and haziness in the left lower. His BNP is elevated to 8000. EKG demonstrated paced rhythm. Her shortness of breath partially improved with IV Lasix given in the ED. Patient is placed under observation for further management of CHF exacerbation. Hospital Course: Patient received 40 mg IV Lasix in the ED and an additional 40 mg IV Lasix after admission. He reported feeling significantly better, was weaned to room air and breathing comfortably with SpO2: 98%. He was able to ambulate without issue. His troponins were trended and remained at 0.04. He reported no chest pain throughout his presentation here at the hospital. He was COVID negative. The patient was adamant about going home today since he felt so well. Given that he was breathing comfortably on room air, he was discharged home. It was recommended that he take 40 mg of Lasix for the next 4 days, up from his typical 20 mg daily. It was recommended that he check daily weights and follow up with his direct customer service representative in the next few weeks as well as his PCP within 1 week. He was unsure when his last echocardiogram was, and recommended outpatient echocardiogram in the next few weeks. Patient expressed understanding and agreement with this plan. His creatinine seemed to be his baseline of 1.6 and he did have some mild hyponatremia of 129 that improved to 130 a few hr after admission. Vital Signs/Physical Exam: Temp Pulse Resp BP Pulse Ox 98.5 F 60 17 134/80 98 08/17/20 12:00 08/17/20 12:00 08/17/20 12:00 08/17/20 12:00 08/17/20 12:00 General: Alert, In no apparent distress, Oriented x3 HEENT: Mucous membr. moist/pink, Sclerae nonicteric Respiratory: Clear to auscultation bilaterally, Normal air movement (on RA) Cardiovascular: No edema, Regular rate/rhythm Gastrointestinal: Soft and benign, No tenderness Neurological: Normal speech, Normal affect Laboratory Data at Discharge: WBC 5.0 K/uL (4.3-10.9) 08/16/20 21:37 Hgb 10.8 g/dL (13.6-17.9) L 08/16/20 21:37 Hct 30.6 % (39.6-49.0) L 08/16/20 21:37 Plt Count 174 K/uL (152-406) 08/16/20 21:37 PT 11.9 SECONDS (9.5-12.5) 08/16/20 21:37 INR 1.01 08/16/20 21:37 Sodium 130 mmol/L (136-145) L 08/17/20 12:51 Potassium 4.2 mmol/L (3.5-5.1) 08/17/20 12:51 BUN 35 mg/dL (7-18) H 08/17/20 12:51 Creatinine 1.69 mg/dL (0.55-1.3) H 08/17/20 12:51 Glucose 133 mg/dL (74-106) H 08/17/20 12:51 Magnesium 1.8 mg/dL (1.8-2.4) 08/17/20 12:51 Total Bilirubin 0.4 mg/dL (0.2-1.0) 08/16/20 21:37 AST 23 U/L (15-37) 08/16/20 21:37 ALT 20 U/L (12-78) 08/16/20 21:37 Alkaline Phosphatase 76 U/L (45-117) 08/16/20 21:37 Troponin I Cancelled 08/17/20 21:34 Home Medications: Atorvastatin Calcium [Lipitor*] 1 tab PO DAILY 08/17/20 Furosemide [Lasix*] 1 tab PO SEECOM 08/17/20 Metoprolol Tartrate 1 tab PO DAILY 08/17/20 Primidone [Mysoline *] 1 tab PO SEECOM 08/17/20 Sacubitril/Valsartan [Entresto 97 mg-103 mg Tablet] 1 tab PO BID 08/17/20 Patient Discharge Instructions: follow up with PCP within 1 week. follow up with your direct customer service representative in the next few weeks. Recommend obtaining a recent echocardiogram. Discuss with your direct customer service representative if he recommends a stress test. Continue your home medications as previously prescribed. Take 2 of your Furosemide (Lasix) 20mg tablets for the next 4 days. Diet: AHA Activity: Ad brianna Followup: Josh Powell DO [Primary Care Provider] - (PCP- call to schedule an appointment ) Time spent managing pt's care (in minutes): 35
--- NOTE | 2020-08-18 10:43 | RAD REPORT ---
EXAM DESCRIPTION: RAD - Chest Single View - 08/16/2020 10:13 pm CLINICAL HISTORY: SOB COMPARISON: 11/30/2019 FINDINGS: Single frontal radiograph view of the chest. Cardiomediastinal silhouette: Left-sided multilead generator. Cardiomegaly. Lungs: Pulmonary vascular congestion. Diffuse bilateral interstitial opacities. No pneumothorax. Bones: Degenerative endplate spondylosis of the spine. Degenerative change of the shoulders. Upper abdomen: No abnormality identified. IMPRESSION: 1. Cardiomegaly with interstitial pulmonary edema pattern. 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 The interpreting r adiologist is fully responsible for the content of the report.
== END 2020-08-17 15:15 | disposition home or self-care (01) ==
LOC: ER 21:04 → ERHOLD 08-17 00:51 → 2ND 08-17 01:26
PROVIDERS: ADMIT Internal Medicine; ATTEND Hospitalist
DX: I13.0 Hypertensive heart and chronic kidney disease with heart failure and stage 1 through stage 4 chronic kidney disease, or unspecified chronic kidney disease (principal); I50.23 Acute on chronic systolic (congestive) heart failure; N18.30 Chronic kidney disease, stage 3 unspecified; I48.20 Chronic atrial fibrillation, unspecified; F10.20 Alcohol dependence, uncomplicated; Z20.828 Contact with and (suspected) exposure to other viral communicable diseases; Z95.810 Presence of automatic (implantable) cardiac defibrillator; J44.9 Chronic obstructive pulmonary disease, unspecified; E11.22 Type 2 diabetes mellitus with diabetic chronic kidney disease; E78.5 Hyperlipidemia, unspecified; Z86.73 Personal history of transient ischemic attack (TIA), and cerebral infarction without residual deficits; F32.9 Major depressive disorder, single episode, unspecified; I34.0 Nonrheumatic mitral (valve) insufficiency; Z85.89 Personal history of malignant neoplasm of other organs and systems
CPT/HCPCS: 96365; 93005; 87040 ×2; 85025; 80048 ×2; 36415; 83735 ×2; 85610; 80076; 84484 ×3; 83880; 87804 ×2; 71045; 96375; 99285; U0003; J1940 ×2; J0456; J1650; J3475; J0696; J7050; G0378

== ENCOUNTER 2020-09-22 03:14 | Inpatient (IN) | payer OTHER, SELFPAY ==
--- OUTSIDE RECORDS SUMMARY | 2020-09-22 03:16 | XMS REPORT | Continuity of Care Document ---
:1940 Author Organization [facility] t Address [address] [place] [address] Care Team Providers Name Role Phone Eryn [...] DA Active U 2018- [facility] 10-04 [facility] 00:00: [address] No Known DA Active U [facility] 05-20 [facility] 00:00: [address] Medications This patient has no known medications. Procedures This patient has no known procedures. Encounters Start End Encounter Admission Attending Care Care Encounter Source Date/Time Date/Time Type Type Clinicians Facility Department ID 2020-06-05 2020-06-05 Transition Mary Kay Cerna [id number] 00:00:00 00:00:00 of Care Cody Stover [id number] Clarisa [id number] 2020-05-29 2020-06-04 [facility] [id number] 18:50:00 17:57:00 Encounter Arben Julien [id number] Ling [id number] [place] [id number] Results This patient has no known results.
[2020-09-22 03:57] LABS: Protime INR 1.03
[2020-09-22 03:59] LABS: Absolute Lymphocytes (CBC) 0.6 K/uL (0.7-4.9); Basophils % 1.9 % (0-1.3); Hematocrit 30.2 % (39.6-49.0); Lymphocytes % 14.9 % (15.3-44.8); MPV 8.3 fL (7.6-11.3); RBC Red Blood Cell Count 3.23 M/uL (4.33-5.43)
[2020-09-22 04:11] LABS: Albumin 3.3 g/dL (3.4-5.0); Bilirubin Direct 0.1 mg/dL (0-0.2); Bilirubin Total 0.4 mg/dL (0.2-1.0); Magnesium 1.8 mg/dL (1.8-2.4); Potassium 4.1 mmol/L (3.5-5.1); Protein, Total 6.5 g/dL (6.4-8.2); Troponin (Emerg Dept Use Only) 0.05 ng/mL (0.0-0.045)
--- NOTE | 2020-09-22 04:24 | ER ---
Nurse's Notes [facility] Name: Jimbo Cat Age: 80 yrs Sex: Male : 1940 Arrival Date: 09/22/2020 Time: 03:18 Bed 26 Private MD: Diagnosis: Hypo-osmolality and hyponatremia Presentation: 09/22 03:11 Chief complaint: EMS states: patient was wobbly while walking to the bathroom, fell and mg2 hit his right side of the rib cage in the faucet of the bath tub. denies LOC. he also has bloody stool since yesterday and he is on blood thinner. Coronavirus screen: Client denies travel out of the [place] in the last 14 days. Client reports previous positive COVID test result. 3 weeks ago in [place]. Ebola Screen: No symptoms or risks identified at this time. Initial Sepsis Screen: Does the patient meet any 2 criteria? No. Patient's initial sepsis screen is negative. Does the patient have a suspected source of infection? No. Patient's initial sepsis screen is negative. Risk Assessment: Do you want to hurt yourself or someone else? Patient reports no desire to harm self or others. Onset of symptoms was September 22, 2020. 03:11 Method Of Arrival: EMS: [facility] mg2 03:11 Acuity: SYDNIE 3 mg2 Historical: - Allergies: 03:26 No Known Allergies; mg2 - Home Meds: 03:26 carvedilol Oral [Active]; Eliquis 5 mg Oral tab 1 tab 2 times per day [Active]; Lasix mg2 Oral [Active]; metoprolol tartrate 25 mg Oral tab 1 tab 2 times per day [Active]; Plavix 75 mg Oral tab 1 tab once daily [Active]; Primidone Oral [Active]; Protonix 40 mg Oral TbEC 1 tab once daily [Active]; - PMHx: 03:26 Alcoholism; COPD; CVA; Diabetes; HEART FAILURE; Hypertension; possible dementia; mg2 - Immunization history:: Flu vaccine status is unknown. - Social history:: Smoking status: unknown. Screenin:43 Abuse screen: Denies threats or abuse. Denies injuries from another. Nutritional mg2 screening: No deficits noted. Tuberculosis screening: No symptoms or risk factors identified. Fall Risk Fall in past 12 months (25 points). IV access (20 points). Assessment: 03:42 General: Appears in no apparent distress. comfortable, Behavior is calm, cooperative. mg2 Pain: Complains of pain in right side of the rib cage. Neuro: Level of Consciousness is awake, alert, obeys commands, Oriented to person, place, time, situation. Cardiovascular: Capillary refill < 3 seconds Patient's skin is warm and dry. Respiratory: Airway is patent Respiratory effort is even, unlabored, Respiratory pattern is regular, symmetrical. GI: Reports bloody stool. : No signs and/or symptoms were reported regarding the genitourinary system. EENT: No signs and/or symptoms were reported regarding the EENT system. Derm: Skin is intact, is healthy with good turgor, Skin is pink, warm \T\ dry. normal. Musculoskeletal: Circulation, motion, and sensation intact. Capillary refill < 3 seconds. Vital Signs: 03:11 BP 145 / 77; Pulse 60; Resp 18; Temp 98.5; Pulse Ox 100% on R/A; mg2 03:15 BP 145 / 81 Supine; Pulse 60; Resp 18; Pulse Ox 100% on R/A; mg2 03:20 BP 139 / 79 Sitting; Pulse 60; Resp 18; Pulse Ox 99% on R/A; mg2 03:23 BP 136 / 75 Standing; Pulse 60; Resp 18; Pulse Ox 100% on R/A; mg2 ED Course: 03:18 Patient arrived in ED. mw2 03:21 Diallo Becker MD is Attending Physician. tw4 03:22 Cody Mccabe RN is Primary Nurse. mg2 03:26 Triage completed. mg2 03:27 Arm band placed on. mg2 03:40 Inserted saline lock: 20 gauge in right antecubital area, using aseptic technique. mg2 Blood collected. 03:42 XRAY Chest (1 view) In Process Unspecified. EDMS 03:43 Patient has correct armband on for positive identification. radiation monitor on. Pulse mg2 ox on. NIBP on. Door closed. Warm blanket given. 03:44 No provider procedures requiring assistance completed. mg2 04:21 Everardo Gonzalez MD is Hospitalizing Provider. tw4 06:11 Patient admitted, IV remains in place. mg2 07:17 Report given to SABINE Rush. mg2 Administered Medications: 04:30 Drug: NS 0.9% 1000 ml Route: IV; Rate: 1000 ml; Site: right antecubital; mg2 06:11 Follow up: Response: No adverse reaction; IV Status: Completed infusion; IV Intake: mg2 1000ml Intake: 06:11 IV: 1000ml; Total: 1000ml. mg2 Outcome: 04:23 Decision to Hospitalize by Provider. tw4 06:10 Admitted to ER Hold. Please see [facility] for further documentation. mg2 06:10 Condition: stable 06:10 Instructed on the need for admit. 16:08 Patient left the ED. aa5 Signatures: Dispatcher [employer] EDSonia Celestin, RN RN aa5 Diallo Becker MD MD tw4 Samantha Art mw2 Cody Mccabe RN RN mg2
--- NOTE | 2020-09-22 04:24 | EDPHYS ---
Physician Documentation [facility] Name: Jimbo Cat Age: 80 yrs Sex: Male : 1940 Arrival Date: 09/22/2020 Time: 03:18 Bed 26 Private MD: ED Physician Diallo Becker HPI: 09/22 04:14 This 80 yrs old Male presents to ER via EMS with complaints of weakness. tw4 04:14 The patient presents with generalized weakness. Onset: The symptoms/episode tw4 began/occurred today. Context: occurred at home. Modifying factors: The symptoms are alleviated by nothing, the symptoms are aggravated by nothing. Associated signs and symptoms: The patient has no apparent associated signs or symptoms. Severity of symptoms: At their worst the symptoms were moderate in the emergency department the symptoms are unchanged. The patient has not experienced similar symptoms in the past. Historical: - Allergies: 03:26 No Known Allergies; mg2 - Home Meds: 03:26 carvedilol Oral [Active]; Eliquis 5 mg Oral tab 1 tab 2 times per day [Active]; Lasix mg2 Oral [Active]; metoprolol tartrate 25 mg Oral tab 1 tab 2 times per day [Active]; Plavix 75 mg Oral tab 1 tab once daily [Active]; Primidone Oral [Active]; Protonix 40 mg Oral TbEC 1 tab once daily [Active]; - PMHx: 03:26 Alcoholism; COPD; CVA; Diabetes; HEART FAILURE; Hypertension; possible dementia; mg2 - Immunization history:: Flu vaccine status is unknown. - Social history:: Smoking status: unknown. ROS: 04:14 Constitutional: Negative for fever, chills, and weight loss, Eyes: Negative for injury, tw4 pain, redness, and discharge, Cardiovascular: Negative for chest pain, palpitations, and edema, Respiratory: Negative for shortness of breath, cough, wheezing, and pleuritic chest pain, Abdomen/GI: Negative for abdominal pain, nausea, vomiting, diarrhea, and constipation, Back: Negative for injury and pain, MS/Extremity: Negative for injury and deformity, Skin: Negative for injury, rash, and discoloration. 04:14 Neuro: Positive for weakness, Negative for altered mental status, dizziness, gait disturbance, headache, hearing loss, seizure activity, speech changes, syncope. Exam: 04:14 Constitutional: This is a well developed, well nourished patient who is awake, alert, tw4 and in no acute distress. Head/Face: Normocephalic, atraumatic. Chest/axilla: Normal chest wall appearance and motion. Nontender with no deformity. No lesions are appreciated. Cardiovascular: Regular rate and rhythm with a normal S1 and S2. No gallops, murmurs, or rubs. Normal PMI, no JVD. No pulse deficits. Respiratory: Lungs have equal breath sounds bilaterally, clear to auscultation and percussion. No rales, rhonchi or wheezes noted. No increased work of breathing, no retractions or nasal flaring. Abdomen/GI: Soft, non-tender, with normal bowel sounds. No distension or tympany. No guarding or rebound. No evidence of tenderness throughout. Back: No spinal tenderness. No costovertebral tenderness. Full range of motion. MS/ Extremity: Pulses equal, no cyanosis. Neurovascular intact. Full, normal range of motion. Neuro: Awake and alert, GCS 15, oriented to person, place, time, and situation. Cranial nerves II-XII grossly intact. Motor strength 5/5 in all extremities. Sensory grossly intact. Cerebellar exam normal. Normal gait. Vital Signs: 03:11 BP 145 / 77; Pulse 60; Resp 18; Temp 98.5; Pulse Ox 100% on R/A; mg2 03:15 BP 145 / 81 Supine; Pulse 60; Resp 18; Pulse Ox 100% on R/A; mg2 03:20 BP 139 / 79 Sitting; Pulse 60; Resp 18; Pulse Ox 99% on R/A; mg2 03:23 BP 136 / 75 Standing; Pulse 60; Resp 18; Pulse Ox 100% on R/A; mg2 MDM: 03:21 Patient medically screened. tw4 04:23 Differential diagnosis: cardiac arrhythmia. Data reviewed: vital signs, nurses notes. tw4 Data interpreted: Pulse oximetry: Interpretation: normal. Test interpretation: by ED physician or midlevel provider: ECG. Counseling: I had a detailed discussion with the patient and/or guardian regarding: the historical points, exam findings, and any diagnostic results supporting the discharge/admit diagnosis. Physician consultation: Everardo Gonzalez MD regarding admission, to the telemetry unit. patient's condition, and will see patient in ED. 09/22 03:22 Order name: Basic Metabolic Panel tw4 09/22 03:22 Order name: CBC with Diff tw4 09/22 03:22 Order name: LFT's tw4 09/22 03:22 Order name: Magnesium tw4 09/22 03:22 Order name: NT PRO-BNP tw4 09/22 03:22 Order name: PT-INR tw4 09/22 03:22 Order name: Troponin (emerg Dept Use Only) tw4 09/22 04:02 Order name: Manual Differential EDMS 09/22 04:58 Order name: Osmolality, Serum EDMS 09/22 04:58 Order name: Osmolality, Urine EDMS 09/22 04:58 Order name: UR SODIUM EDMS 09/22 05:22 Order name: Urine Dipstick--Ancillary (enter results) 2 09/22 05:27 Order name: Basic Metabolic Panel EDMS 09/22 03:22 Order name: XRAY Chest (1 view) tw4 09/22 03:22 Order name: EKG; Complete Time: 03:23 tw4 09/22 03:22 Order name: Cardiac monitoring; Complete Time: 03:41 tw4 09/22 03:22 Order name: EKG - Nurse/Tech; Complete Time: 03:42 tw4 09/22 03:22 Order name: IV Saline Lock; Complete Time: 03:42 tw4 09/22 03:22 Order name: Labs collected and sent; Complete Time: 03:42 4 09/22 03:22 Order name: O2 Per Protocol; Complete Time: 03:42 tw4 09/22 03:22 Order name: O2 Sat Monitoring; Complete Time: 03:42 tw4 09/22 05:26 Order name: CONS Pharmacy Consult EDMS 09/22 05:26 Order name: Heart Healthy EDMS 09/22 05:55 Order name: Thyroid Stimulating Hormone EDMS 09/22 06:36 Order name: SARS-COV-2 RT PCR EDMS 09/22 06:42 Order name: T4 Free EDMS 09/22 07:58 Order name: Osmolality, Urine EDMS EC:24 Rate is 60 beats/min. Rhythm is regular. QRS [place] is Normal. MI interval is normal. QRS tw4 interval is prolonged. No Q waves. T waves are Normal. No ST changes noted. Clinical impression: NSR w/ Non-specific ST/T Changes. Interpreted by me. Reviewed by me. Administered Medications: 04:30 Drug: NS 0.9% 1000 ml Route: IV; Rate: 1000 ml; Site: right antecubital; mg2 06:11 Follow up: Response: No adverse reaction; IV Status: Completed infusion; IV Intake: mg2 1000ml Disposition: 09/22/20 04:23 Hospitalization ordered by Everardo Gonzalez for Inpatient Admission. Preliminary diagnosis is Hypo-osmolality and hyponatremia. - Bed requested for Telemetry/MedSurg (Inpatient). - Status is Inpatient Admission. aa5 - Condition is Stable. - Problem is new. - Symptoms have improved. Signatures: Dispatcher [employer] EDMO Zehra Mckinney RN RN Rocio Rowe RN RN Sonia Nair RN RN aa5 Diallo Becker MD MD tw4 Cody Mccabe RN RN mg2 Corrections: (The following items were deleted from the chart) 05:01 04:23 Hospitalization Ordered by Everardo Gonzalez MD for Inpatient Admission. Preliminary diagnosis is Hypo-osmolality and hyponatremia. Bed requested for Telemetry/MedSurg (Inpatient). Status is Inpatient Admission. Condition is Stable. Problem is new. Symptoms have improved. tw4 05:43 04:45 CORONAVIRUS+MR.LAB.BRZ ordered. [facility] EDMS 05:54 05:33 Thyroid Stimulating Hormone ordered. [facility] EDMS 13:40 05:01 09/22/2020 04:23 Hospitalization Ordered by Everardo Gonzalez MD for Inpatient dw Admission. Preliminary diagnosis is Hypo-osmolality and hyponatremia. Bed requested for [facility] ER HOLD. Status is Inpatient Admission. Condition is Stable. Problem is new. Symptoms have improved. 16:08 13:40 09/22/2020 04:23 Hospitalization Ordered by Everardo Gonzalez MD for Inpatient aa5 Admission. Preliminary diagnosis is Hypo-osmolality and hyponatremia. Bed requested for Telemetry/MedSurg (Inpatient). Status is Inpatient Admission. Condition is Stable. Problem is new. Symptoms have improved.
[2020-09-22 04:26] LABS: Blood Morphology Comment NOT SEEN (NOT SEEN); Platelet Estimate ADEQ
[2020-09-22] MEDS ORDERED: NA CHLORIDE 0.9% 1,000 ML ONE ×2 (04:27→06:46)
--- NOTE | 2020-09-22 05:32 | P.HP ---
Certification for Inpatient With expected LOS: >2 Midnights Practitioner: I am a practitioner with admitting privileges, knowledge of patient current condition, hospital course, and medical plan of care. Services: Services provided to patient in accordance with Admission requirements found in Title 42 Section 412.3 of the Code of Federal Regulations Patient History Date of Service: 09/22/20 Reason for admission: Hyponatremia History of Present Illness: Patient is 80 years of age she has been feeling dizzy week recently has some hematochezia patient is also been complaining some abdominal discomfort recent diarrhea been having problems for the past week apparently he fell today came into the emergency room and found to be hyponatremia denies any fever chills cough history of congestive heart failure some swelling of his legs Allergies No Known Allergies Allergy (Verified 08/17/20 02:07) Home Medications: Atorvastatin Calcium [Lipitor*] 1 tab PO DAILY 08/17/20 Furosemide [Lasix*] 1 tab PO SEECOM 08/17/20 Metoprolol Tartrate 1 tab PO DAILY 08/17/20 Primidone [Mysoline *] 1 tab PO SEECOM 08/17/20 Sacubitril/Valsartan [Entresto 97 mg-103 mg Tablet] 1 tab PO BID 08/17/20 - Past Medical/Surgical History Diabetic: Yes -: pacemaker/defibrillator 2010 (pacemaker evaluated 1 month ago) -: Diabetes mellitus type 2 -: HTN -: Hyperlipidemia -: CVA 2008 -: Depression -: MARZENA cataracts -: Moderate mitral regurgitation -: CHF, systolic dysfunction -: cervical vertebrae surgery x2 -: benign tumor removed from L knee -: appendectomy -: tonsilectomy -: 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 - Family History Mother -: Heart disease, Hypertension, Diabetes, Cancer - Social History Alcohol use: Yes CD- Drugs: No Caffeine use: No Review of Systems General: Weakness Respiratory: Shortness of Breath Cardiovascular: Edema Gastrointestinal: Abdominal Pain, Diarrhea Physical Examination - Vital Signs Temperature: 98 F Blood Pressure: 145/77 Pulse: 60 Respirations: 18 Pulse Ox (%): 98 - Physical Exam General: Alert, Oriented x3, Mild distress Neck: Supple Respiratory: Clear to auscultation bilaterally Cardiovascular: Regular rate/rhythm, Normal S1 S2, Edema (1+ edema) Gastrointestinal: Soft and benign, Non-distended - Studies Laboratory Data (last 24 hrs) 09/22/20 03:40: PT 12.1, INR 1.03 09/22/20 03:40: WBC 3.7 L, Hgb 10.5 L, Hct 30.2 L, Plt Count 164 09/22/20 03:40: Sodium 119 L*, Potassium 4.1, BUN 35 H, Creatinine 1.49 H, Glucose 84, Magnesium 1.8, Total Bilirubin 0.4, AST 27, ALT 28, Alkaline Phosphatase 70 Assessment and Plan - Problems (Diagnosis) (1) Hyponatremia Current Visit: Yes Status: Acute Plan: Patient is 80 years of age admitted with hyponatremia he is has some abdominal pain recent hematochezia history of congestive heart failure compliant with his medication does not appear to be volume overloaded will try some IV fluids recheck his Chem 7 at 10:00 a.m. I have also ordered urine osmolalities serum osmolalities in urinary sodium is also mildly anemic patient also has underlying chronic renal failure (2) Hematochezia Current Visit: Yes Status: Acute Plan: Recent GI bleeding Consul GI CT scan of the abdomen monitor hemoglobin - Advance Directives Does patient have a Living Will: No Does patient have a Durable POA for Healthcare: Yes - Code Status/Comfort Care Code Status: Full Code
[2020-09-22] MEDS ORDERED: NA CHLORIDE 0.9% 1,000 ML IV SCH (06:00)
[2020-09-22 06:12] LABS: Urine Blood TRACE (NEG); Urine Glucose NEGATIVE (NEG); Urine Protein 2+ (NEG)
[2020-09-22 06:27] LABS: Thyroid Stimulating Hormone 4.62 uIU/mL (0.360-3.740)
--- NOTE | 2020-09-22 08:40 | RAD REPORT ---
EXAM DESCRIPTION: RAD - Chest Single View - 09/22/2020 3:42 am CLINICAL HISTORY: COUGH Chest pain. COMPARISON: Chest Single View dated 08/16/2020; Chest Single View dated 11/30/2019; Chest Single View dated 12/04/2018; Chest Single View dated 08/29/2018 FINDINGS: Portable technique limits examination quality. Mild interstitial pulmonary edema. The heart is moderately enlarged in size with multilead pacer/defi brillator device. No displaced fractures. IMPRESSION: Mild CHF.
[2020-09-22] MEDS ORDERED: ATORVASTATIN 20 MG TAB PO SCH (09:00)
--- NOTE | 2020-09-22 10:28 | EKG ---
Test Date: 2020-09-22 Test Time: 03:33:10 Insurance Analyst: MG MEASUREMENT RESULTS: Intervals: Rate: 60 KS: 124 QRSD: 162 QT: 482 QTc: 482 [place]: P: KS: 124 QRS: -66 T: 121 INTERPRETIVE STATEMENTS: Electronic ventricular pacemaker Compared to ECG 08/16/2020 21:31:30 No significant changes Electronically Signed On 09-22-20 10:27:43 [employer] by [employer]
[2020-09-22] MEDS ORDERED: ATORVASTATIN 20 MG TAB ONE (11:13)
[2020-09-22 11:23] LABS: Potassium 3.7 mmol/L (3.5-5.1)
[2020-09-22 14:50] VITALS: BP 117/68; TEMP 97.8
--- NOTE | 2020-09-22 15:36 | P.PN ---
Date of Service: 09/22/20 Patient seen and examined. He has no complain and desires to go home. Sodium level is up to 124. He stated the diarrhea has stopped. No active bleeding. Plan: Serum sodium level is responding to IV normal saline. Hyponatremia likely secondary to dehydration and sodium loss from diarrhea as well as Lasix use. Hold Lasix. Continue IV NS. Continue to monitor BMP to follow sodium level.
[2020-09-22 15:48] VITALS: BMI 23.5
[2020-09-22 17:05] VITALS: O2SAT 100
--- NOTE | 2020-09-22 19:08 | P.DS ---
Admission Date: 09/22/20 Discharge Date: 09/22/20 Disposition: AMA-LEFT AGAINST MEDICAL ADVIC Reason for Admission: Hyponatremia Brief History of Present Illness: 80-year-old patient presented to the emergency department with a complaint of dizziness. He reported bouts of diarrhea. He also reported previous hematochezia. Blood work done in the emergency department showed hyponatremia with sodium of 119. His serum creatinine at baseline. Hemoglobin was at 10. Patient was admitted for further management of the hyponatremia. Hospital Course: Patient admitted to the medical floor and started on IV normal saline for hyponatremia secondary to dehydration. Noted patient is also on Lasix which could have also contributed to the hyponatremia from renal sodium loss. His sodium level improved to 124. Patient decided not to stay overnight in the hospital and decided to sign out against medical advice. Patient left against medical advice before I could get the chance to convince him to stay for medical treatment. Vital Signs/Physical Exam: Temp Pulse Resp BP Pulse Ox 97.8 F 67 14 117/68 100 09/22/20 12:00 09/22/20 12:00 09/22/20 12:00 09/22/20 12:00 09/22/20 12:00 Laboratory Data at Discharge: WBC 3.7 K/uL (4.3-10.9) L 09/22/20 03:40 Hgb 10.5 g/dL (13.6-17.9) L 09/22/20 03:40 Hct 30.2 % (39.6-49.0) L 09/22/20 03:40 Plt Count 164 K/uL (152-406) 09/22/20 03:40 PT 12.1 SECONDS (9.5-12.5) 09/22/20 03:40 INR 1.03 09/22/20 03:40 Sodium Cancelled 09/22/20 19:00 Potassium Cancelled 09/22/20 19:00 BUN Cancelled 09/22/20 19:00 Creatinine Cancelled 09/22/20 19:00 Glucose Cancelled 09/22/20 19:00 Magnesium 1.8 mg/dL (1.8-2.4) 09/22/20 03:40 Total Bilirubin 0.4 mg/dL (0.2-1.0) 09/22/20 03:40 AST 27 U/L (15-37) 09/22/20 03:40 ALT 28 U/L (12-78) 09/22/20 03:40 Alkaline Phosphatase 70 U/L (45-117) 09/22/20 03:40 Home Medications: Atorvastatin Calcium [Lipitor*] 1 tab PO DAILY 08/17/20 Furosemide [Lasix*] 1 tab PO SEECOM 08/17/20 Metoprolol Tartrate 1 tab PO DAILY 08/17/20 Primidone [Mysoline *] 1 tab PO SEECOM 08/17/20 Sacubitril/Valsartan [Entresto 97 mg-103 mg Tablet] 1 tab PO BID 08/17/20 Followup: Unknown,U [Primary Care Provider] -
== END 2020-09-22 16:25 | disposition left against medical advice (07) | DRG 641 ==
LOC: ER 03:14 → ERHOLD 06:23 → 2ND 14:50
PROVIDERS: ADMIT Internal Medicine Sleep Medicine; ATTEND Internal Medicine
DX: E87.1 Hypo-osmolality and hyponatremia (principal); K92.1 Melena; I50.22 Chronic systolic (congestive) heart failure; I11.0 Hypertensive heart disease with heart failure; E86.0 Dehydration; E78.5 Hyperlipidemia, unspecified; E11.9 Type 2 diabetes mellitus without complications; D64.9 Anemia, unspecified; J44.9 Chronic obstructive pulmonary disease, unspecified; Z79.01 Long term (current) use of anticoagulants; Z79.02 Long term (current) use of antithrombotics/antiplatelets; Z79.899 Other long term (current) drug therapy; Z86.73 Personal history of transient ischemic attack (TIA), and cerebral infarction without residual deficits; Z90.49 Acquired absence of other specified parts of digestive tract; Z95.810 Presence of automatic (implantable) cardiac defibrillator; Z60.2 Problems related to living alone; Z53.29 Procedure and treatment not carried out because of patient's decision for other reasons; Z20.822 Contact with and (suspected) exposure to COVID-19
CPT/HCPCS: 36415; 71045; 80048; 80076; 81003; 83735; 83880; 83930; 83935; 84439; 84443; 84484; 85025; 85610; 93005; 96360; 96361; 99285; J7030; U0003

== ENCOUNTER 2020-10-11 17:58 | Observation (INO) | payer OTHER ==
--- OUTSIDE RECORDS SUMMARY | 2020-10-11 18:00 | XMS REPORT | Continuity of Care Document ---
:1940 Author Organization [facility] t Address [address] [place] [address] Care Team Providers Name Role Phone Eryn [...] DA Active U 2018- [facility] 10-04 [facility] 00:00: [address] No Known DA Active U [facility] 05-20 [facility] 00:00: [address] Medications This patient has no known medications. Procedures This patient has no known procedures. Encounters Start End Encounter Admission Attending Care Care Encounter Source Date/Time Date/Time Type Type Clinicians Facility Department ID 2020-06-05 2020-06-05 Transition Mary Kay Cerna [id number] 00:00:00 00:00:00 of Care Cody Stover [id number] Clarisa [id number] 2020-05-29 2020-06-[facility] [id number] 18:50:00 17:57:00 Encounter Arben Julien [id number] Ling [id number] Loiza [id number] Results This patient has no known results.
--- NOTE | 2020-10-11 18:30 | RAD REPORT ---
EXAM DESCRIPTION: CT - Head C Spine Mpr Wo Con - 10/11/2020 6:11 pm CLINICAL HISTORY: Head and neck injury status post fall. Head and neck pain COMPARISON: 2018 TECHNIQUE: Computed axial tomography of the head and cervical spine was obtained. Sagittal and coronal reconstruction was performed. All CT scans are performed using dose optimization technique as appropriate and may include automated exposure control or mA/KV adjustment according to patient size. FINDINGS: Frontal scalp swelling. An intracranial bleed is not seen. The ventricles are normal in caliber. An extra-axial fluid collect ion is not noted. A cervical fracture is not visualized. No dislocation is noted. Spondylosis involves the cervical spi ne IMPRESSION: No acute intracranial abnormality is seen. A cervical fracture is not visualized. If the patient continues to have symptoms to suggest intracra nial /spinal cord pathology then MRI would be recommended
--- NOTE | 2020-10-11 18:36 | RAD REPORT ---
EXAM DESCRIPTION: CT - Facial Bones W/ Mpr - 10/11/2020 6:11 pm CLINICAL HISTORY: Facial injury status post fall with facial pain COMPARISON: None TECHNIQUE: Computed axial tomography of the face was obtained. Coronal and sagittal reconstruction w as performed. All CT scans are performed using dose optimization technique as appropriate and may include automated exposure control or mA/KV adjustment according to patient size. FINDINGS: A fracture is not seen. A TMJ dislocation is not noted. The globes are intact. Fluid within the sinuses is not seen. 2 centimeter heterogeneous structure within the anterior left nasal cavity probably represents packin g material. If there has been no packing material placed then this represents a hematoma. IMPRESSION: Negative for a facial fracture.
[2020-10-11 18:45] LABS: Absolute Lymphocytes (CBC) 0.4 K/uL (0.7-4.9); Basophils % 2.2 % (0-1.3); Hematocrit 30.9 % (39.6-49.0); Lymphocytes % 14.1 % (15.3-44.8); MPV 7.7 fL (7.6-11.3); RBC Red Blood Cell Count 3.29 M/uL (4.33-5.43)
[2020-10-11 18:46] LABS: Protime INR 1.07
[2020-10-11 19:03] LABS: ALT/SGPT 17 U/L (12-78); AST/SGOT 19 U/L (15-37); Albumin 3.1 g/dL (3.4-5.0); Alkaline Phosphatase 67 U/L (45-117); BUN Blood Urea Nitrogen 32 mg/dL (7-18); Bicarbonate 28 mmol/L (21-32); Bilirubin Direct < 0.1 mg/dL (0-0.2); Bilirubin Total 0.3 mg/dL (0.2-1.0); Glucose Level 107 mg/dL (74-106); Magnesium 1.9 mg/dL (1.8-2.4); NT PRO-BNP 5108 pg/mL (<450); Potassium 3.3 mmol/L (3.5-5.1); Protein, Total 6.1 g/dL (6.4-8.2); Sodium Level 132 mmol/L (136-145); Troponin (Emerg Dept Use Only) 0.06 ng/mL (0.0-0.045)
--- NOTE | 2020-10-11 19:39 | RAD REPORT ---
EXAM DESCRIPTION: Daniel Single View10/11/2020 7:01 pm CLINICAL HISTORY: Chest pain COMPARISON: September 22, 2020 FINDINGS: Area of subsegmental atelectasis within the right lung. The remainder of the lungs appear clear of acute infiltrate. The heart is mildly enlarged. Pacemaker leads are in place.
--- NOTE | 2020-10-11 19:46 | ER ---
Nurse's Notes [facility] Name: Jimbo Cat Age: 80 yrs Sex: Male : 1940 Arrival Date: 10/11/2020 Time: 17:59 Bed 19 Private MD: Diagnosis: Fall on same level from slipping, tripping and stumbling;Laceration without foreign body of other part of head-forehead;Abrasion of unspecified part of head-upper lip;Elevated troponin Presentation: 10/11 17:54 Chief complaint: EMS states: Pt. was at home and stood up from his chair and fell from 3 a standing position hitting his head and face on the hard wood floor. Hematoma noted to the forehead, bilateral nares are packed with 4 x 4 that were cut to control the bleed. Vital signs have been stable. History of CVA, pt. is at normal baseline. Has slurred speech and has slow movements, these are deficits from a previous CVA. History of CVA, COPD, HTN, and pacemaker. NKDA. Pt. arrived on a backboard. Care prior to arrival: Placed on backboard. packing applied to both nares to control bleeding. Mechanism of Injury: Fall from standing position. an unknown distance. Trauma event details: Injury occurred in the [facility], Injury occurred: at home. Injury occurred: October 11, 2020 Injury occurred at: 17:20. 17:54 Acuity: SYDNIE 3 rb3 17:54 Method Of Arrival: EMS: [facility] rb3 17:54 Coronavirus screen: At this time, the client does not indicate any symptoms associated rb3 with coronavirus-19. Ebola Screen: Patient denies travel to an Ebola-affected area in the 21 days before illness onset. Risk Assessment: Do you want to hurt yourself or someone else? Patient reports no desire to harm self or others. Onset of symptoms was October 11, 2020 at 17:20. 17:54 Initial Sepsis Screen: Does the patient meet any 2 criteria?. rb3 Trauma Activation: Physician: ED Physician; Name: Jailene; Notified At: 17:52; Arrived At: 17:52 Physician: General Surgeon; Name: ; Notified At: 17:52; Arrived At: 17:52 Physician: Radiology; Name: BetzaidaMago, Julisa, Maurilio; Notified At: 17:52; Arrived At: 17:55 Physician: Respiratory; Name: ; Notified At: 17:52; Arrived At: Physician: Lab; Name: ; Notified At: 17:52; Arrived At: Trauma Activation: Alert Physician: ED Physician; Name: ; Notified At: ; Arrived At: Physician: General Surgeon; Name: ; Notified At: ; Arrived At: Physician: Radiology; Name: ; Notified At: ; Arrived At: Physician: Respiratory; Name: ; Notified At: ; Arrived At: Physician: Lab; Name: ; Notified At: ; Arrived At: Historical: - Allergies: 17:54 No Known Allergies; rb3 - Home Meds: 17:54 carvedilol Oral [Active]; Eliquis 5 mg Oral tab 1 tab 2 times per day [Active]; Lasix rb3 Oral [Active]; metoprolol tartrate 25 mg Oral tab 1 tab 2 times per day [Active]; Plavix 75 mg Oral tab 1 tab once daily [Active]; Primidone Oral [Active]; Protonix 40 mg Oral TbEC 1 tab once daily [Active]; - PMHx: 17:54 Alcoholism; COPD; CVA; Diabetes; HEART FAILURE; Hypertension; possible dementia; rb3 - Immunization history:: Adult Immunizations up to date. - Social history:: Smoking status: Patient/guardian denies using. Screenin:54 Abuse screen: Denies threats or abuse. Tuberculosis screening: No symptoms or risk rb3 factors identified. 18:14 Nutritional screening: No deficits noted. Fall Risk Fall in past 12 months (25 points). rb3 Secondary diagnosis (15 points) CVA, IV access (20 points). Ambulatory Aid- Crutches/Cane/Walker (15 pts). Gait- Normal/Bed Rest/Wheelchair (0 pts) Mental Status- Oriented to own ability (0 pts). Total Johnston Fall Scale indicates High Risk Score (45 or more points). Fall prevention measures have been instituted. Side Rails Up X 2 Placed Close to Nursing Station 1:1 Attendant Assigned Frequent Obs/Assessments Occuring As available patient and family educated on Fall Prevention Program and Strategies. Primary Survey: 17:54 NO uncontrolled hemorrhage observed. A: The patient is alert. Airway: patent. rb3 Breathing/Chest: Respiratory pattern: regular, Respiratory effort: spontaneous, Chest inspection: symmetrical rise and fall of the chest. Circulation: Skin color: pink, Skin temperature: warm, dry. Disability Alert. Exposure/Environment: There is no evidence of uncontrolled external bleeding. Obvious injury(ies) are noted at this time: hematoma to the forehead and swelling noted to the nose. 18:20 Reassessment Airway Airway Patent Breathing/Chest Respiratory pattern Regular rb3 Respiratory effort Spontaneous Unlabored Circulation Color [place] Temperature Warm Dry Disability Alert. Secondary Survey: 17:54 HEENT: Head Other hematoma to forehead Nose: packing noted in both nares, bleeding rb3 controlled.. Gastrointestinal: No deficits noted. : No signs and/or symptoms were reported regarding the genitourinary system. Musculoskeletal: Range of motion: intact in all extremities. Assessment: 17:54 General: Appears in no apparent distress. Behavior is calm, cooperative. Pain: rb3 Complains of pain in head and face. Neuro: Level of Consciousness is awake, alert, obeys commands, Oriented to person, place, situation, Speech is slurred, normal baseline for the pt per 's report. EENT: Nares packing applied to both nares. Cardiovascular: Patient's skin is warm and dry. Respiratory: Airway is patent Respiratory effort is even, unlabored, Respiratory pattern is regular, symmetrical. GI: No signs and/or symptoms were reported involving the gastrointestinal system. : No signs and/or symptoms were reported regarding the genitourinary system. Derm: hematoma noted to the forehead and swelling noted to the nose. Musculoskeletal: Range of motion: intact in all extremities. 17:54 Reassessment: Jing can be reached at [phone]. rb3 18:52 Reassessment: Patient appears in no apparent distress at this time. No changes from rb3 previously documented assessment. No hemorrhage noted at this time. Packing removed from the pt. nose, not currently bleeding. 19:00 Reassessment: Patient appears in no apparent distress at this time. Patient and/or jb4 family updated on plan of care and expected duration. Pain level reassessed. Patient is alert, oriented x 3, equal unlabored respirations, skin warm/dry/pink. 20:00 Reassessment: Patient appears in no apparent distress at this time. Patient and/or jb4 family updated on plan of care and expected duration. Pain level reassessed. Patient is alert, oriented x 3, equal unlabored respirations, skin warm/dry/pink. 21:00 Reassessment: Patient appears in no apparent distress at this time. Patient and/or jb4 family updated on plan of care and expected duration. Pain level reassessed. Patient is alert, oriented x 3, equal unlabored respirations, skin warm/dry/pink. 22:00 Reassessment: Patient appears in no apparent distress at this time. Patient and/or jb4 family updated on plan of care and expected duration. Pain level reassessed. Patient is alert, oriented x 3, equal unlabored respirations, skin warm/dry/pink. Vital Signs: 18:14 BP 127 / 82; Pulse 60; Resp 12; Temp 97.9(TE); Pulse Ox 100% on R/A; Weight 66.68 kg rb3 (R); Height 5 ft. 7 in. (170.18 cm) (R); 19:30 BP 122 / 78; Pulse 60; Resp 18; Pulse Ox 100% ; jb4 19:58 BP 124 / 72 LA Supine (auto/reg); Pulse 60; Resp 13; Pulse Ox 100% on R/A; dh4 19:58 BP 123 / 75 LA Sitting (auto/reg); Pulse 60; Resp 13; Pulse Ox 100% on R/A; dh4 19:58 BP 116 / 70 LA Standing (auto/reg); Pulse 64; Resp 15; Pulse Ox 97% on R/A; dh4 20:30 BP 129 / 77; Pulse 60; Resp 16; Pulse Ox 100% on R/A; jb4 21:30 BP 118 / 76; Pulse 64; Resp 15; Pulse Ox 98% on R/A; jb4 18:14 Body Mass Index 23.02 (66.68 kg, 170.18 cm) rb3 [place] Coma Score: 17:54 Eye Response: spontaneous(4). Verbal Response: oriented(5). Motor Response: obeys rb3 commands(6). Total: 15. 18:14 Eye Response: spontaneous(4). Verbal Response: oriented(5). Motor Response: obeys rb3 commands(6). Total: 15. 18:30 Eye Response: spontaneous(4). Verbal Response: oriented(5). Motor Response: obeys rb3 commands(6). Total: 15. 19:30 Eye Response: spontaneous(4). Verbal Response: oriented(5). Motor Response: obeys jb4 commands(6). Total: 15. 20:30 Eye Response: spontaneous(4). Verbal Response: oriented(5). Motor Response: obeys jb4 commands(6). Total: 15. 21:30 Eye Response: spontaneous(4). Verbal Response: oriented(5). Motor Response: obeys jb4 commands(6). Total: 15. Trauma Score (Adult): 18:14 Eye Response: spontaneous(1); Verbal Response: oriented(1); Motor Response: obeys rb3 commands(2); Systolic BP: > 89 mm Hg(4); Respiratory Rate: 10 to 29 per min(4); [place] Score: 15; Trauma Score: 12 18:30 Eye Response: spontaneous(1); Verbal Response: oriented(1); Motor Response: obeys rb3 commands(2); Systolic BP: > 89 mm Hg(4); Respiratory Rate: 10 to 29 per min(4); Cleopatra Score: 15; Trauma Score: 12 19:30 Eye Response: spontaneous(1); Verbal Response: oriented(1); Motor Response: obeys jb4 commands(2); Systolic BP: > 89 mm Hg(4); Respiratory Rate: 10 to 29 per min(4); [place] Score: 15; Trauma Score: 12 20:30 Eye Response: spontaneous(1); Verbal Response: oriented(1); Motor Response: obeys jb4 commands(2); Systolic BP: > 89 mm Hg(4); Respiratory Rate: 10 to 29 per min(4); Cleopatra Score: 15; Trauma Score: 12 21:30 Eye Response: spontaneous(1); Verbal Response: oriented(1); Motor Response: obeys jb4 commands(2); Systolic BP: > 89 mm Hg(4); Respiratory Rate: 10 to 29 per min(4); Cleopatra Score: 15; Trauma Score: 12 ED Course: 17:54 Patient has correct armband on for positive identification. Bed in low position. Call rb3 light in reach. Side rails up X 1. 17:54 Arm band placed on right wrist. rb3 17:54 Patient maintains SpO2 saturation greater than 95% on room air. rb3 17:54 Thermoregulation: warm blanket given to patient. rb3 17:59 Patient arrived in ED. em1 17:59 Moy Tavares, DERRICK is PHCP. pm1 17:59 Rhys Dent MD is Attending Physician. pm1 18:02 Ashly Brooks RN is Primary Nurse. rb3 18:08 Triage completed. rb3 18:10 CT Head C Spine In Process Unspecified. EDMS 18:10 CT Facial Bones W/O Con In Process Unspecified. EDMS 18:25 Inserted saline lock: 20 gauge in right antecubital area, using aseptic technique. rb3 Blood collected. 18:55 Initial lab(s) drawn, by ED staff, sent to lab. EKG done, by ED staff, reviewed by [facility] Moy Tavares NP. 18:57 Warm blanket given. library monitor on. Pulse ox on. NIBP on. [facility] 19:01 XRAY Chest (1 view) In Process Unspecified. EDMS 19:43 Shaq Panchal FNP-C is Hospitalizing Provider. pm1 20:17 Richard Dent MD is Hospitalizing Provider. la1 22:00 No provider procedures requiring assistance completed. Patient admitted, IV remains in jb4 place. Administered Medications: 20:30 Drug: Lidocaine (1 %) 5 ml {Note: Adminsitered by ER provider.} Volume: 5 ml; Route: jb4 Infiltration; 20:56 Drug: Tetanus-Diphtheria Toxoid Adult 0.5 ml {Multifocal Button Generator: [employer]. Exp: jb4 01/03/2022. Lot #: [id number]. } Route: IM; Site: right deltoid; Outcome: 19:46 Decision to Hospitalize by Provider. pm1 22:00 Admitted to Med/surg via stretcher, room 205, with chart, Report called to SABINE Anders lp1 22:00 Condition: stable 22:00 Instructed on the need for admit. 22:00 Patient's length of stay in the Emergency Department was greater than 2 hours. PT jb4 admittedPatient's length of stay extended due to 22:10 Patient left the ED. lp1 Signatures: Dispatcher [employer] EDRicky Kuo em1 Kenyatta Fletcher, SABINE RN lp1 Shaq Panchal, CANDY SUPERVISOR-C CANDY SUPERVISOR-Cla1 Moy Tavares, RECEIVING INSPECTOR RECEIVING INSPECTOR pm1 Edwin Higgins RN RN jb4 Clarissa Hartman 5 Jack Garcia 4 Ashly Brooks RN RN rb3
--- NOTE | 2020-10-11 19:47 | EDPHYS ---
Physician Documentation [facility] Name: Jimbo Cat Age: 80 yrs Sex: Male : 1940 Arrival Date: 10/11/2020 Time: 17:59 Bed 19 Private MD: ED Physician Rhys Dent HPI: 10/11 18:06 This 80 yrs old Male presents to ER via EMS with complaints of Fall Injury. pm1 18:06 Details of fall: The patient fell from an upright position, while standing, and struck pm1 wood shiv. Onset: The symptoms/episode began/occurred just prior to arrival. Associated injuries: The patient sustained injury to the head, abrasion, laceration, of the forehead. Severity of symptoms: in the emergency department the symptoms. Patient was sitting on his couch, stood up and fell forward. Patient presenting with laceration to forehead, abrasion to upper lip, and nose bleed. Arrived with backboard and c-collar and nasal packing with gauze. Patient denies dizziness, chest pain, shortness of breath, LOC, and neck pain. Patient does not know why he fell forward. Historical: - Allergies: 17:54 No Known Allergies; rb3 - Home Meds: 17:54 carvedilol Oral [Active]; Eliquis 5 mg Oral tab 1 tab 2 times per day [Active]; Lasix rb3 Oral [Active]; metoprolol tartrate 25 mg Oral tab 1 tab 2 times per day [Active]; Plavix 75 mg Oral tab 1 tab once daily [Active]; Primidone Oral [Active]; Protonix 40 mg Oral TbEC 1 tab once daily [Active]; - PMHx: 17:54 Alcoholism; COPD; CVA; Diabetes; HEART FAILURE; Hypertension; possible dementia; rb3 - Immunization history:: Adult Immunizations up to date. - Social history:: Smoking status: Patient/guardian denies using. ROS: 18:06 Constitutional: Negative for fever, chills, and weight loss, Neck: Negative for injury, pm1 pain, and swelling, Cardiovascular: Negative for chest pain, palpitations, and edema, Respiratory: Negative for shortness of breath, cough, wheezing, and pleuritic chest pain, Abdomen/GI: Negative for abdominal pain, nausea, vomiting, diarrhea, and constipation, Back: Negative for injury and pain, MS/Extremity: Negative for injury and deformity. 18:06 Skin: Positive for abrasions to face and laceration to forehead. Skin tear to left wrist. 18:06 Neuro: Positive for headache, of the forehead, Negative for dizziness, loss of consciousness, weakness, Baseline per CVA history of slow speech. Exam: 18:06 Constitutional: This is a well developed, well nourished patient who is awake, alert, pm1 and in no acute distress. 18:06 Neck: Trachea midline, no thyromegaly or masses palpated, and no cervical lymphadenopathy. Supple, full range of motion without nuchal rigidity, or vertebral point tenderness. No Meningismus. Chest/axilla: Normal chest wall appearance and motion. Nontender with no deformity. No lesions are appreciated. 18:06 Back: No spinal tenderness. No costovertebral tenderness. Full range of motion. MS/ Extremity: Pulses equal, no cyanosis. Neurovascular intact. Full, normal range of motion. 18:06 Head/face: Noted is no obvious of injury or deformity except abrasion(s), that are mild, of the left side of upper lip and forehead, a laceration(s), that is jagged, 2 cm(s), of the forehead. 18:06 Eyes: Exam is negative for acute changes, Periorbital structures: appear normal, Pupils: no acute changes, Extraocular movements: no acute changes, Conjunctiva: normal, no acute changes, no exudate, no injection, no subconjunctival hemorrhage Lids and lashes: appear normal, bilaterally. 18:06 Cardiovascular: Exam negative for acute changes, Rate: normal, Rhythm: regular, Pulses: no pulse deficits are appreciated. 18:06 Respiratory: Exam negative for acute changes, respiratory distress, shortness of breath. 18:06 Abdomen/GI: Exam negative for acute changes, Inspection: abdomen appears normal, Palpation: abdomen is soft and non-tender. 18:06 Skin: Appearance: normal except for affected area, injury, small 1 cm skin tear to left wrist and laceration and abrasion to face as noted above. 18:06 Neuro: Orientation: is normal, Mentation: is normal, Motor: is normal, moves all fours. Vital Signs: 18:14 BP 127 / 82; Pulse 60; Resp 12; Temp 97.9(TE); Pulse Ox 100% on R/A; Weight 66.68 kg rb3 (R); Height 5 ft. 7 in. (170.18 cm) (R); 19:30 BP 122 / 78; Pulse 60; Resp 18; Pulse Ox 100% ; jb4 19:58 BP 124 / 72 LA Supine (auto/reg); Pulse 60; Resp 13; Pulse Ox 100% on R/A; dh4 19:58 BP 123 / 75 LA Sitting (auto/reg); Pulse 60; Resp 13; Pulse Ox 100% on R/A; dh4 19:58 BP 116 / 70 LA Standing (auto/reg); Pulse 64; Resp 15; Pulse Ox 97% on R/A; dh4 20:30 BP 129 / 77; Pulse 60; Resp 16; Pulse Ox 100% on R/A; jb4 21:30 BP 118 / 76; Pulse 64; Resp 15; Pulse Ox 98% on R/A; jb4 18:14 Body Mass Index 23.02 (66.68 kg, 170.18 cm) rb3 Heavener Coma Score: 17:54 Eye Response: spontaneous(4). Verbal Response: oriented(5). Motor Response: obeys rb3 commands(6). Total: 15. 18:14 Eye Response: spontaneous(4). Verbal Response: oriented(5). Motor Response: obeys rb3 commands(6). Total: 15. 18:30 Eye Response: spontaneous(4). Verbal Response: oriented(5). Motor Response: obeys rb3 commands(6). Total: 15. 19:30 Eye Response: spontaneous(4). Verbal Response: oriented(5). Motor Response: obeys jb4 commands(6). Total: 15. 20:30 Eye Response: spontaneous(4). Verbal Response: oriented(5). Motor Response: obeys jb4 commands(6). Total: 15. 21:30 Eye Response: spontaneous(4). Verbal Response: oriented(5). Motor Response: obeys jb4 commands(6). Total: 15. Trauma Score (Adult): 18:14 Eye Response: spontaneous(1); Verbal Response: oriented(1); Motor Response: obeys rb3 commands(2); Systolic BP: > 89 mm Hg(4); Respiratory Rate: 10 to 29 per min(4); Cleopatra Score: 15; Trauma Score: 12 18:30 Eye Response: spontaneous(1); Verbal Response: oriented(1); Motor Response: obeys rb3 commands(2); Systolic BP: > 89 mm Hg(4); Respiratory Rate: 10 to 29 per min(4); Cleopatra Score: 15; Trauma Score: 12 19:30 Eye Response: spontaneous(1); Verbal Response: oriented(1); Motor Response: obeys jb4 commands(2); Systolic BP: > 89 mm Hg(4); Respiratory Rate: 10 to 29 per min(4); Cleopatra Score: 15; Trauma Score: 12 20:30 Eye Response: spontaneous(1); Verbal Response: oriented(1); Motor Response: obeys jb4 commands(2); Systolic BP: > 89 mm Hg(4); Respiratory Rate: 10 to 29 per min(4); Heavener Score: 15; Trauma Score: 12 21:30 Eye Response: spontaneous(1); Verbal Response: oriented(1); Motor Response: obeys jb4 commands(2); Systolic BP: > 89 mm Hg(4); Respiratory Rate: 10 to 29 per min(4); Heavener Score: 15; Trauma Score: 12 Laceration: 20:30 Wound Repair of 2cm ( 0.8in ) subcutaneous laceration to forehead. Irregularly shaped.. pm1 Distal neuro/vascular/tendon intact. Anesthesia: Local anesthetic administered with 2 mls of 1% lidocaine. Wound prep: Extensive cleansing with hibiclenz by nurse, Wound irrigation with saline by nurse, Wound explored extensively, Copious irrigation. Skin closed with 4 5-0 Prolene using simple sutures and sterile technique. Skin closed with thin layer Adhesive skin closure using Dermabond. Patient tolerated well. MDM: 18:03 Patient medically screened. pm1 19:32 Counseling: I had a detailed discussion with the patient and/or guardian regarding: the pm1 historical points, exam findings, and any diagnostic results supporting the discharge/admit diagnosis, lab results, radiology results, the need for further work-up and treatment in the hospital. 19:42 Data reviewed: vital signs. Data interpreted: Pulse oximetry: on room air is 100 %. pm1 Interpretation: normal. 10/11 18:03 Order name: Basic Metabolic Panel pm1 10/11 18:03 Order name: CBC with Diff 10/11 18:03 Order name: LFT's pm10/11 18:03 Order name: Magnesium pm10/11 18:03 Order name: NT PRO-BNP; Complete Time: 19:19 pm1 10/11 18:03 Order name: PT-INR; Complete Time: 18:58 pm1 10/11 18:03 Order name: Troponin (emerg Dept Use Only); Complete Time: 19:19 pm10/11 18:04 Order name: Basic Metabolic Panel; Complete Time: 19:19 EDMS 10/11 18:04 Order name: CBC with Automated Diff; Complete Time: 20:50 EDMS 10/11 18:04 Order name: Liver (Hepatic) Function; Complete Time: 19:19 EDMS 10/11 18:04 Order name: Magnesium; Complete Time: 19:19 EDMS 10/11 20:48 Order name: Manual Differential; Complete Time: 20:50 EDMS 10/11 20:58 Order name: SARS-COV-2 RT PCR; Complete Time: 20:59 EDMS 10/11 18:00 Order name: CT Head C Spine; Complete Time: 18:33 pm10/11 18:00 Order name: CT Facial Bones W/O Con; Complete Time: 18:49 pm10/11 18:03 Order name: XRAY Chest (1 view); Complete Time: 19:42 pm10/11 18:03 Order name: EKG; Complete Time: 18:04 pm10/11 18:03 Order name: Cardiac monitoring; Complete Time: 18:35 pm10/11 18:03 Order name: EKG - Nurse/Tech; Complete Time: 18:55 pm10/11 18:03 Order name: IV Saline Lock; Complete Time: 18:35 pm10/11 18:03 Order name: Labs collected and sent; Complete Time: 18:35 pm10/11 18:03 Order name: O2 Per Protocol; Complete Time: 18:36 pm10/11 18:03 Order name: O2 Sat Monitoring; Complete Time: 18:36 pm10/11 18:03 Order name: Orthostatics; Complete Time: 20:57 pm10/11 19:28 Order name: Dermabond; Complete Time: 20:44 pm1 10/11 20:05 Order name: Prolene, Sutures; Complete Time: 20:44 pm1 10/11 20:05 Order name: Dressing - Wound; Complete Time: 20:44 pm1 10/11 20:05 Order name: Gloves, Sterile; Complete Time: 20:44 pm1 10/11 20:05 Order name: Setup Suture Tray; Complete Time: 20:44 pm1 Administered Medications: 20:30 Drug: Lidocaine (1 %) 5 ml {Note: Adminsitered by ER provider.} Volume: 5 ml; Route: jb4 Infiltration; 20:56 Drug: Tetanus-Diphtheria Toxoid Adult 0.5 ml {Grain Scooper: [employer]. Exp: jb4 01/03/2022. Lot #: [id number]. } Route: IM; Site: right deltoid; Disposition: 10/12 16:03 Co-signature as Attending Physician, Rhys Dent MD. rn Disposition: 10/11/20 19:46 Hospitalization ordered by Richard Dent for Observation. Preliminary diagnosis are Fall on same level from slipping, tripping and stumbling, Laceration without foreign body of other part of head - forehead, Abrasion of unspecified part of head - upper lip, Elevated troponin. - Bed requested for Telemetry/MedSurg (observation). - Status is Observation. lp1 - Condition is Stable. - Problem is new. - Symptoms have improved. Signatures: Dispatcher [employer] EDAK Rhys Dent MD MD rn Pena, Laura, RN RN lp1 Shaq Panchal FNP-C ANIMAL ANATOMY TEACHER-[facility] Lisa Hutchinson RN RN cg Marinas, Patrick, NP ZIPPER REPAIRER pm1 Edwin Higigns RN RN jb4 Ashly Brooks, RN RN rb3 Corrections: (The following items were deleted from the chart) 10/11 20:10 19:55 CORONAVIRUS+MR.LAB.BRZ ordered. EDAK EDMS 20:17 19:46 Hospitalization Ordered by Shaq SANCHEZ for Observation. Preliminary la1 diagnosis is Fall on same level from slipping, tripping and stumbling; Laceration without foreign body of other part of head - forehead; Abrasion of unspecified part of head - upper lip; Elevated troponin. Bed requested for Telemetry/MedSurg (observation). Status is Observation. Condition is Stable. Problem is new. Symptoms have improved. pm1 21:25 20:17 10/11/2020 19:46 Hospitalization Ordered by Richard Dent MD for Observation. cg Preliminary diagnosis is Fall on same level from slipping, tripping and stumbling; Laceration without foreign body of other part of head - forehead; Abrasion of unspecified part of head - upper lip; Elevated troponin. Bed requested for Telemetry/MedSurg (observation). Status is Observation. Condition is Stable. Problem is new. Symptoms have improved. la1 22:10 21:25 10/11/2020 19:46 Hospitalization Ordered by Richard Dent MD for Observation. lp1 Preliminary diagnosis is Fall on same level from slipping, tripping and stumbling; Laceration without foreign body of other part of head - forehead; Abrasion of unspecified part of head - upper lip; Elevated troponin. Bed requested for Telemetry/MedSurg (observation). Status is Observation. Condition is Stable. Problem is new. Symptoms have improved. cg
[2020-10-11] MEDS ORDERED: DERMABOND SKIN ADHESIVE TOP ONE (19:55)
[2020-10-11] MEDS ORDERED: TETANUS & DIPHTHERIA TOX,ADULT 0.5 ML VIAL ONE (19:56)
[2020-10-11] MEDS ORDERED: LIDOCAINE 1% MPF 5 ML VIAL ONE (20:23)
[2020-10-11 20:48] LABS: Blood Morphology Comment NOT SEEN (NOT SEEN); Platelet Estimate DECR
--- NOTE | 2020-10-11 21:10 | P.HP ---
Certification for Inpatient Patient admitted to: Observation With expected LOS: <2 Midnights Patient will require the following post-hospital care: None Practitioner: I am a practitioner with admitting privileges, knowledge of patient current condition, hospital course, and medical plan of care. Services: Services provided to patient in accordance with Admission requirements found in Title 42 Section 412.3 of the Code of Federal Regulations <Shaq Panchal - Last Filed: 10/11/20 21:03> Patient History Date of Service: 10/11/20 Reason for admission: Fall History of Present Illness: 80-year-old male with history of acute systolic congestive heart failure S/P pacemaker/defibrillator placement, hypertension, atrial fibrillation on chronic anticoagulation therapy CKD 3, CAD, diabetes mellitus type 2, hypertension presents emergency department for fall. Patient reports that he is sitting in his recliner when somebody came to the door, he stood up and took 2 steps and fell. Patient not sure why he fell, did not lose consciousness denies chest pain, shortness of breath, palpitations, headache, dizziness. Patient with history of multiple CVAs that have affected his speech and likely gait to some degree. Patient lives with his at home, was evaluated in the emergency department, in the setting of all of his chronic health conditions a cardiac evaluation was completed, labs significant for initial troponin 0.06. BNP 5108 creatinine 1.69 which appears to be his baseline. Chest x-ray unremarkable, CT facial bones negative for any fractures, small laceration noted just above the left eyebrow which was repaired in the emergency department with combination of sutures and derma varghese. As patient does not know the cause for his fall and is unstable on his feet in addition to mildly elevated troponin. ED provider wishes to admit patient for observation. 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 - Family History Mother -: Heart disease, Hypertension, Diabetes, Cancer - Social History Alcohol use: No CD- Drugs: No Caffeine use: Yes Place of Residence: Home <Shaq Panchal - Last Filed: 10/11/20 21:03> Date of Service: 10/12/20 <Richard Dent - Last Filed: 10/12/20 20:32> Allergies No Known Allergies Allergy (Verified 10/11/20 23:03) Home Medications: Furosemide [Lasix*] 1 tab PO SEECOM 08/17/20 Metoprolol Tartrate 1 tab PO DAILY 08/17/20 Primidone [Mysoline *] 1 tab PO QID 08/17/20 Sacubitril/Valsartan [Entresto 97 mg-103 mg Tablet] 1 tab PO BID 08/17/20 Review of Systems General: Weakness, Other (Reports of unsteady gait) <Shaq Panchal - Last Filed: 10/11/20 21:03> Physical Examination - Physical Exam General: Alert, In no apparent distress, Oriented x3 HEENT: PERRLA, Mucous membr. moist/pink, Other (Repaired laceration noted above left eyebrow), EOMI, Sclerae nonicteric Neck: Supple, 2+ carotid pulse no bruit, No LAD, Without JVD or thyroid abnormality Respiratory: Clear to auscultation bilaterally, Normal air movement Cardiovascular: Normal S1 S2, Irregular heart rate/rhythm (Paced rhythm rate around 80), Systolic murmur Capillary refill: <2 Seconds Gastrointestinal: Normal bowel sounds, No tenderness Musculoskeletal: No tenderness Integumentary: No rashes Neurological: Normal speech, Normal strength at 5/5 x4 extr, Normal tone, Normal affect - Studies Laboratory Data (last 24 hrs) 10/11/20 18:25: PT 12.6 H, INR 1.07 10/11/20 18:25: WBC 3.2 L, Hgb 10.8 L, Hct 30.9 L, Plt Count 145 L 10/11/20 18:25: Sodium 132 L, Potassium 3.3 L, BUN 32 H, Creatinine 1.69 H, Glucose 107 H, Magnesium 1.9, Total Bilirubin 0.3, AST 19, ALT 17, Alkaline Phosphatase 67 <Shaq Panchal - Last Filed: 10/11/20 21:03> - Studies Laboratory Data (last 24 hrs) 10/11/20 18:25: WBC 3.2 L, Hgb 10.8 L, Hct 30.9 L, Plt Count 145 L <Richard Dent - Last Filed: 10/12/20 20:32> Assessment and Plan - Plan Assessment Fall, unsteady gait Chronic HFrEF S/P pacemaker/defibrillator placement Chronic atrial fibrillation CKD 3 Diabetes mellitus type 2 Hypertension Hyperlipidemia History of multiple CVA Plan Fall, unsteady gait: Doubt syncope, negative LOC, denies chest pain, shortness of breath, dizziness, palpitations. Will obtain orthostatics vital signs, PT evaluation. If patient does well physical therapy and troponins trended flat patient can likely be discharged to follow up with cardiology for outpatient echocardiogram. Chronic HFrEF S/P pacemaker/defibrillator placement: Last echocardiogram 04/05 shows systolic dysfunction with ejection fraction of 33%. Patient sees quality reviewer in [place], has likely had repeat echocardiogram but this is not available for review at this time. Will trend troponins, 1500 cc per day fluid restriction. Chronic atrial fibrillation: Obtain and continue home medications as appropriate. Patient and paced rhythm at this time. CKD 3: Baseline renal function, continue to renally dose medications as appropriate. Diabetes mellitus type 2: A.c. HS Accu-Cheks, sliding scale insulin therapy. Blood sugar under control at this time. Hypertension: Obtain and continue home medications as appropriate Hyperlipidemia: Obtain and continue home medications History of multiple CVA: Obtain and continue home medications, PT evaluation Discharge Plan: Home Plan to discharge in: 24 Hours - Advance Directives Does patient have a Living Will: No Does patient have a Durable POA for Healthcare: No - Code Status/Comfort Care Code Status Assessed: Yes (DNR) Critical Care: No Time Spent Managing Pts Care (In Minutes): 55 <Shaq Panchal - Last Filed: 10/11/20 21:03> - Plan Agree with plan of care as noted above by Shaq Panchal. pt with low BP on admission, with multiple medications that can contribute and reports low PO intake possibly was hypotensive and orthostatic trend troponon, monitor telemetry, pt's PM/defib was interrogated ~6 months ago per patient <Richard Dent - Last Filed: 10/12/20 20:32>
[2020-10-11] MEDS ORDERED: GLUCAGON 1 MG/VIAL IM PRN (21:57)
[2020-10-11] MEDS ORDERED: ONDANSETRON 4 MG/2 ML VIAL IV PRN (21:57)
[2020-10-11] MEDS: INSULIN -REGULAR HUMAN 50 UNIT/0.5 ML ML SQ SCH (21:57)
[2020-10-11] MEDS ORDERED: ACETAMINOPHEN 500 MG TAB PO PRN (21:57)
[2020-10-11] MEDS ORDERED: D50W 25 GM/50 ML SYRINGE IV PRN (21:57)
[2020-10-11 22:27] VITALS: O2SAT 100
[2020-10-11] MEDS ORDERED: POTASSIUM CL SA 10 MEQ TAB PO ONE (23:32)
[2020-10-11 23:42] LABS: Urine Appearance CLEAR; Urine Bilirubin NEGATIVE (NEG); Urine Blood TRACE (NEG); Urine Color YELLOW; Urine Glucose NEGATIVE (NEG); Urine Protein 2+ (NEG); Urine Specific Gravity <=1.005 (1.005-1.030); Urine Urobilinogen 0.2 mg/dL (0.2-1.0)
[2020-10-12 00:11] LABS: Urine Bacteria <20 /HPF (NONE SEEN)
[2020-10-12 01:41] VITALS: BMI 22.1
[2020-10-12 05:56] LABS: Absolute Lymphocytes (CBC) 0.4 K/uL (0.7-4.9); Basophils % 2.1 % (0-1.3); Hematocrit 30.8 % (39.6-49.0); Lymphocytes % 12.9 % (15.3-44.8); MPV 7.9 fL (7.6-11.3)
[2020-10-12 06:30] LABS: Magnesium 1.8 mg/dL (1.8-2.4); Potassium 3.7 mmol/L (3.5-5.1); Thyroid Stimulating Hormone 2.72 uIU/mL (0.360-3.740); Troponin I 0.06 ng/mL (0.0-0.045)
[2020-10-12] MEDS: INSULIN -REGULAR HUMAN 50 UNIT/0.5 ML ML SQ SCH ×2 (07:30→11:30)
[2020-10-12] MEDS ORDERED: MAGNESIUM SULFATE 1 gm IVPB 1 GM/100 ML BAG IV ONE (09:00)
[2020-10-12] MEDS ORDERED: POTASSIUM CL SA 10 MEQ TAB PO ONE (09:00)
[2020-10-12 18:29] VITALS: BP 132/71; TEMP 97
--- NOTE | 2020-10-12 21:13 | P.DS ---
Admission Date: 10/11/20 Discharge Date: 10/12/20 Disposition: ROUTINE DISCHARGE Discharge Condition: GOOD Reason for Admission: Fall Procedures: CT Head, Cspine; CT facial bones; CXR Problem List: Fall, unsteady gait Forehead laceration s/p irrigation and closure with 4 5-0 prolene Eosinophilia Chronic HFrEF S/P pacemaker/defibrillator placement Chronic atrial fibrillation CKD 3 Diabetes mellitus type 2 Hypertension Hyperlipidemia History of multiple CVA Brief History of Present Illness: 80yo M, PMH: HFrEF s/p pacemaker/defib, HTN, afib on anticoagulation, CKD3, CAD, DM2, HTN presented to ED after fall at home. He was sitting in his recliner when he stood up and took 2 steps and fell forward. He felt his legs give out under him for "no reason". He remembers falling, denies LOC, no prodromal symptoms, no loss of urinary/bowels. Patient with history of multiple CVAs that have affected his speech and likely gait to some degree. Patient lives with his at home, was evaluated in the emergency department, in the setting of all of his chronic health conditions a cardiac evaluation was completed, labs significant for initial troponin 0.06. BNP 5108 creatinine 1.69 which appears to be his baseline. Chest x-ray unremarkable, CT facial bones negative for any fractures, small laceration noted just above the left eyebrow which was repaired in the em ergency department with combination of sutures and derma varghese. As patient does not know the cause for his fall and is unstable on his feet in addition to mildly elevated troponin. ED provider wishes to admit patient for observation. Hospital Course: Fall - unclear of reason why he fell. He was noted to have slightly low BP in ED down to 116/70 and he did appear dehydrated. His BP medications and lasix were held and patient continued with low-normal BP readings during his hospitalization. There were no events on telemetry, and patient was ambulating well without any dizziness/lightheadedness. Orthostatics were obtained on day after admission and were negative. He may have gotten dehydrated with his multiple BP medications and lasix. Patient felt better and was requesting to be discharged. He was advised to follow up with his preassembler and inspector, to review medications and possible pacemaker interrogation. Advised to continue to use walker for ambulation assistance for the next 2 weeks. Forehead laceration - patient will require suture removal in several days Eosinophilia - review of EMR reveals patient with eosinophilia - absolute count: ~[phone] during the last 2 admissions when he had a fall. Unclear if any correlation. Pt with milder increases in eosinophils over the past several years as well. Patient is unaware. Recommended to follow up with Dr. Morel (Heme/Onc) for further evaluation/workup. Vital Signs/Physical Exam: Temp Pulse Resp BP Pulse Ox 97 F 60 18 132/71 99 10/12/20 16:00 10/12/20 16:00 10/12/20 16:00 10/12/20 16:00 10/12/20 16:00 General: Alert, In no apparent distress, Oriented x3 HEENT: Other (dressing over laceration repair - c/d/i) Respiratory: Clear to auscultation bilaterally Cardiovascular: No edema, Regular rate/rhythm Gastrointestinal: Soft and benign, Non-distended Musculoskeletal: No tenderness Integumentary: No rashes Neurological: Normal speech, Normal affect Laboratory Data at Discharge: WBC 3.4 K/uL (4.3-10.9) L 10/12/20 05:27 Hgb 10.9 g/dL (13.6-17.9) L 10/12/20 05:27 Hct 30.8 % (39.6-49.0) L 10/12/20 05:27 Plt Count 155 K/uL (152-406) 10/12/20 05:27 PT 12.6 SECONDS (9.5-12.5) H 10/11/20 18:25 INR 1.07 10/11/20 18:25 Sodium 134 mmol/L (136-145) L 10/12/20 05:27 Potassium 3.7 mmol/L (3.5-5.1) 10/12/20 05:27 BUN 29 mg/dL (7-18) H 10/12/20 05:27 Creatinine 1.52 mg/dL (0.55-1.3) H 10/12/20 05:27 Glucose 94 mg/dL (74-106) 10/12/20 05:27 Magnesium 1.8 mg/dL (1.8-2.4) 10/12/20 05:27 Total Bilirubin 0.3 mg/dL (0.2-1.0) 10/11/20 18:25 AST 19 U/L (15-37) 10/11/20 18:25 ALT 17 U/L (12-78) 10/11/20 18:25 Alkaline Phosphatase 67 U/L (45-117) 10/11/20 18:25 Troponin I 0.06 ng/mL (0.0-0.045) H 10/12/20 05:27 Home Medications: Furosemide [Lasix*] 1 tab PO SEECOM 08/17/20 Metoprolol Tartrate 1 tab PO DAILY 08/17/20 Primidone [Mysoline *] 1 tab PO QID 08/17/20 Sacubitril/Valsartan [Entresto 97 mg-103 mg Tablet] 1 tab PO BID 08/17/20 Patient Discharge Instructions: Your CT brain/cervical spine was without any bone fractures, no brain bleed or concerns of acute stroke. Your heart rhythm was monitored and there were no signficant events. It is unclear what lead to your fall. Your blood pressure was on the low side when you came in. Dehydrration and low blood pressure could lead to a fall. Please ensure you stay adequately hydrated. Hold your lasix for the next 3 days. Follow up with your preassembler and inspector. Please take your blood pressure at home and hold your blood pressure medication if it is less than 120/60. You should also have your pacemaker rechecked. You were also found to have high eosinophils in your blood test. The clinical significance is unclear. You should follow up with a hematolo gist (Dr Morel) for further evaluation. Diet: ADA Activity: Fall precautions (please use your walker when ambulating until follow up with neurology) Followup: [facility] [Provider Group] - 1 Week (call to schedule an appointment with your preassembler and inspector or [facility] ) Josh Powell DO [ACTIVE - CAN ADMIT] - 1 Week (Primary care provider- call to schedule an appointment) Tabitha Bills MD [ACTIVE - CAN ADMIT] - ([employer] OFF MACHINE OPERATOR- call to schedule an appointment ) Time spent managing pt's care (in minutes): 40
== END 2020-10-12 16:55 | disposition home or self-care (01) ==
LOC: ER 17:58 → ERHOLD 20:51 → 2ND 22:01
PROVIDERS: ADMIT Hospitalist; ATTEND Hospitalist
PROC: 0HQ1XZZ Repair Face Skin, External Approach (ICD-10-PCS; principal; 2020-10-11)
DX: R26.81 Unsteadiness on feet (principal); S01.81XA Laceration without foreign body of other part of head, initial encounter; S00.81XA Abrasion of other part of head, initial encounter; S00.511A Abrasion of lip, initial encounter; W01.0XXA Fall on same level from slipping, tripping and stumbling without subsequent striking against object, initial encounter; Y92.019 Unspecified place in single-family (private) house as the place of occurrence of the external cause; I13.0 Hypertensive heart and chronic kidney disease with heart failure and stage 1 through stage 4 chronic kidney disease, or unspecified chronic kidney disease; I50.22 Chronic systolic (congestive) heart failure; N18.30 Chronic kidney disease, stage 3 unspecified; E11.22 Type 2 diabetes mellitus with diabetic chronic kidney disease; E86.0 Dehydration; R77.8 Other specified abnormalities of plasma proteins; I25.10 Atherosclerotic heart disease of native coronary artery without angina pectoris; I48.20 Chronic atrial fibrillation, unspecified; D72.10 Eosinophilia, unspecified; I95.9 Hypotension, unspecified; E78.5 Hyperlipidemia, unspecified; I69.928 Other speech and language deficits following unspecified cerebrovascular disease; I34.0 Nonrheumatic mitral (valve) insufficiency; J44.9 Chronic obstructive pulmonary disease, unspecified; F32.9 Major depressive disorder, single episode, unspecified; F10.20 Alcohol dependence, uncomplicated; Z95.810 Presence of automatic (implantable) cardiac defibrillator; Z66 Do not resuscitate; Z23 Encounter for immunization; Z79.02 Long term (current) use of antithrombotics/antiplatelets; Z79.01 Long term (current) use of anticoagulants; Z85.89 Personal history of malignant neoplasm of other organs and systems; Z20.822 Contact with and (suspected) exposure to COVID-19; Z82.49 Family history of ischemic heart disease and other diseases of the circulatory system; Z83.3 Family history of diabetes mellitus; Z80.9 Family history of malignant neoplasm, unspecified
CPT/HCPCS: 12011; 93005; 85025 ×2; 81001; 80048 ×2; 36415; 83735 ×2; 85610; 82947 ×2; 80076; 84443; 84484 ×3; 84439; 83880; 70450; 72125; 70486; 76377; 71045; 90471; 90714; 97112; 97116; 97161; 97530; 99285; U0003; J3475; G0378 ×2; G0390

== ENCOUNTER 2020-10-30 00:19 | Inpatient (IN) | payer OTHER ==
--- OUTSIDE RECORDS SUMMARY | 2020-10-30 00:22 | XMS REPORT | Continuity of Care Document ---
:1940 Author Organization [facility] t Address [address] [place] [address] Care Team Providers Name Role Phone Eryn [...] DA Active U 2018- [facility]04 [facility] 00:00: [address] No Known DA Active U [facility] 05-20 [facility] 00:00: [address] Medications This patient has no known medications. Procedures This patient has no known procedures. Encounters Start End Encounter Admission Attending Care Care Encounter Source Date/Time Date/Time Type Type Clinicians Facility Department ID 2020-06-05 2020-06-05 Transition Mary Kay Cerna [id number] 00:00:00 00:00:00 of Care Cody Stover [id number] Clarisa [id number] 2020-05-29 2020-06-04 [facility] [id number] 18:50:00 17:57:00 Encounter Arben Julien [id number] Ling [id number] [place] [id number] Results This patient has no known results.
[2020-10-30] MEDS ORDERED: Magnesium Sulfate 2gm IVPB 2 G/50 ML BAG IV ONE (00:40)
[2020-10-30] MEDS ORDERED: NITROGLYCERIN 1 GM PKT TD ONE (00:40)
[2020-10-30] MEDS ORDERED: EPINEPHRINE INH 0.5 ML VIAL IH ONE (00:53)
[2020-10-30 01:00] LABS: Absolute Lymphocytes (CBC) 0.6 K/uL (0.7-4.9); Basophils % 1.3 % (0-1.3); Hematocrit 33.3 % (39.6-49.0); Lymphocytes % 17.3 % (15.3-44.8); MPV 8.4 fL (7.6-11.3); RBC Red Blood Cell Count 3.54 M/uL (4.33-5.43)
[2020-10-30 01:02] LABS: Protime INR 1.09
[2020-10-30 01:16] LABS: Albumin 3.6 g/dL (3.4-5.0); Bilirubin Direct 0.2 mg/dL (0-0.2); Bilirubin Total 0.4 mg/dL (0.2-1.0); CKMB Creatine Kinase MB 2.2 ng/mL (0.3-3.6); Magnesium 1.6 mg/dL (1.8-2.4); Potassium 3.8 mmol/L (3.5-5.1); Protein, Total 7.1 g/dL (6.4-8.2); Troponin (Emerg Dept Use Only) 0.04 ng/mL (0.0-0.045)
[2020-10-30] MEDS ORDERED: LEVALBUTEROL 1.25 MG/3 ML NEB ONE (01:37)
[2020-10-30] MEDS ORDERED: NA CHLORIDE 0.9% 250 ML ONE (02:11)
[2020-10-30] MEDS ORDERED: CEFTRIAXONE/SWI 1gm 1 GM/10 ML SYR ONE (02:11)
[2020-10-30] MEDS ORDERED: AZITHROMYCIN 500 MG INJ IVPB ONE (02:11)
--- NOTE | 2020-10-30 02:11 | ER ---
Nurse's Notes [facility] Name: Jimbo Cat Age: 80 yrs Sex: Male : 1940 Arrival Date: 10/30/2020 Time: 00:21 Bed 15 Private MD: Diagnosis: Chronic obstructive pulmonary disease with (acute) exacerbation;Other disorders of fluid, electrolyte and acid-base balance-hyponatremia Presentation: 10/30 00:15 Chief complaint: EMS states: Pt reports having SOB all day. It continued to get worse. jb4 PT is having labored breathing with audible wheezing. Given 125 Solu-medrol IV, A:A 3:1, and 125 of NS. 00:15 Method Of Arrival: EMS: [facility] jb4 00:15 Coronavirus screen: difficulty breathing, Client presents with at least one sign or jb4 symptom that may indicate coronavirus-19. Standard/surgical mask placed on the client. Provider contacted for isolation considerations. Ebola Screen: Patient negative for fever greater than or equal to 101.5 degrees Fahrenheit, and additional compatible Ebola Virus Disease symptoms. Initial Sepsis Screen: Does the patient meet any 2 criteria? RR > 20 per min. Yes Does the patient have a suspected source of infection? No. Patient's initial sepsis screen is negative. Risk Assessment: Do you want to hurt yourself or someone else? Patient reports no desire to harm self or others. Onset of symptoms was October 30, 2020. Transition of care: patient was not received from another setting of care. 00:15 Acuity: SYDNIE 2 jb4 Triage Assessment: 00:15 General: Appears in no apparent distress. distressed, Behavior is calm, cooperative. jb4 Pain: Complains of pain in chest Pain does not radiate. Pain currently is 8 out of 10 on a pain scale. EENT: No signs and/or symptoms were reported regarding the EENT system. Neuro: Level of Consciousness is awake, alert, obeys commands, Oriented to person, place, time, situation. Cardiovascular: Patient's skin is warm and dry. Respiratory: Airway is patent Respiratory effort is even, labored, with retractions, Respiratory pattern is symmetrical, tachypnea Breath sounds with rhonchi bilaterally. auditory wheezing noted. GI: No signs and/or symptoms were reported involving the gastrointestinal system. : No signs and/or symptoms were reported regarding the genitourinary system. Derm: Skin is intact, Skin is pink, warm \T\ dry. Musculoskeletal: Circulation, motion, and sensation intact. Range of motion: intact in all extremities. Historical: - Allergies: 00:15 No Known Allergies; jb4 - Home Meds: 00:15 carvedilol Oral [Active]; Eliquis 5 mg Oral tab 1 tab 2 times per day [Active]; Lasix jb4 Oral [Active]; metoprolol tartrate 25 mg Oral tab 1 tab 2 times per day [Active]; Plavix 75 mg Oral tab 1 tab once daily [Active]; Primidone Oral [Active]; Protonix 40 mg Oral TbEC 1 tab once daily [Active]; - PMHx: 00:15 Alcoholism; COPD; CVA; Diabetes; HEART FAILURE; Hypertension; possible dementia; jb4 - PSHx: 00:15 pace maker placement; jb4 - Immunization history:: Adult Immunizations up to date. - Social history:: Smoking status: Patient denies any tobacco usage or history of. Patient/guardian denies using alcohol, street drugs. - Family history:: not pertinent. Screenin:15 Abuse screen: Denies threats or abuse. Nutritional screening: No deficits noted. jb4 Tuberculosis screening: No symptoms or risk factors identified. Fall Risk None identified. Assessment: 00:15 Reassessment: see triage note. jb4 01:22 General: Appears in no apparent distress. comfortable, Behavior is calm, cooperative, sf appropriate for age. Neuro: No deficits noted. Level of Consciousness is awake, alert, obeys commands, Oriented to person, place, time, situation, Appropriate for age. Cardiovascular: No deficits noted. Patient's skin is warm and dry. Rhythm is sinus rhythm. Respiratory: Reports shortness of breath at rest Airway is patent Respiratory effort is even, unlabored, Respiratory pattern is regular, symmetrical, Patient placed on BiPAP: Inspiratory Pressure: 14 Expiratory (EPAP) Pressure: 06 FiO2%: 50 Respiratory Rate: 16 Breath sounds are clear bilaterally. in right upper lobe, left upper lobe, right middle lobe, left lower lobe, left posterior upper lobe, right posterior upper lobe, left posterior lower lobe, right posterior middle lobe and right posterior lower lobe. Derm: Bruising that is dark purple, on right side of nose and left side of nose. 02:30 Reassessment: Patient appears in no apparent distress at this time. Patient and/or sf family updated on plan of care and expected duration. Pain level reassessed. 03:30 Reassessment: Patient appears in no apparent distress at this time. No changes from sf previously documented assessment. Patient and/or family updated on plan of care and expected duration. Pain level reassessed. Patient is alert, oriented x 3, equal unlabored respirations, skin warm/dry/pink. Still on BiPap, tolerating well, sleeping. easily arousable. Vital Signs: 00:15 BP 140 / 95; Pulse 60; Resp 21; Temp 98.5(TE); Pulse Ox 100% on Nebulizer Mask; Weight jb4 77.11 kg (R); Height 5 ft. 7 in. (170.18 cm); Pain 8/10; 00:30 BP 169 / 98; Pulse 59; Pulse Ox 100% ; sf 00:45 BP 155 / 88; Pulse 60; Pulse Ox 100% ; sf 01:00 BP 150 / 84; Pulse 60; Pulse Ox 100% ; sf 01:15 BP 154 / 85; Pulse 60; Resp 16; Pulse Ox 100% on 50% BiPAP; sf 02:15 BP 146 / 77; Pulse 60; Resp 16; Pulse Ox 100% ; sf 03:00 BP 134 / 81; Pulse 59; Resp 16; Pulse Ox 100% ; sf 04:00 BP 123 / 75; Pulse 62; Resp 16; Pulse Ox 100% ; sf 04:15 BP 121 / 75 (auto/); Pulse 62 MON; Resp 16 S; Pulse Ox 100% on BiPAP; sf 00:15 Body Mass Index 26.63 (77.11 kg, 170.18 cm) 4 ED Course: 00:15 Arm band placed on right wrist. jb4 00:15 Patient has correct armband on for positive identification. Bed in low position. Call [facility] light in reach. Side rails up X 1. scooper on. Pulse ox on. NIBP on. 00:15 Maintain EMS IV. Dressing intact. Good blood return noted. Site clean \T\ dry. Gauge \T\ parvez 4 site: 20g LAC. IV is patent, is intact, with fluids infusing freely, with good blood return, Flushed left antecubital Converted IV to saline lock on left antecubital area. 00:21 Patient arrived in ED. em 00:24 Parveen Reveles MD is Attending Physician. ma2 00:36 Jonny Mandujano RN is Primary Nurse. sf 00:53 Triage completed. jb4 01:11 XRAY CXR (1 view) In Process Unspecified. EDMS 01:40 First set of blood cultures drawn. Inserted saline lock: 20 gauge in right antecubital sf area, using aseptic technique. Blood collected. 01:55 Second set of blood cultures drawn. sf 02:10 Parveen Crabtree MD is Hospitalizing Provider. ma2 04:44 No provider procedures requiring assistance completed. Patient admitted, IV remains in sf place. Administered Medications: 00:30 Drug: Magnesium Sulfate 2 grams Route: IVPB; Infused Over: 2 hrs; Site: left jb4 antecubital; 02:30 Follow up: IV Status: Completed infusion sf 03:51 Follow up: Response: No adverse reaction sf 00:30 Drug: Nitro-Bid Ointment 2 % 1 inches Route: Transdermal; Site: anterior chest wall; jb4 03:52 Follow up: Response: No adverse reaction sf 00:45 Drug: Racemic EPINPHrine 0.5 ml Route: Inhalation; jb4 03:52 Follow up: Response: No adverse reaction sf 01:23 Drug: Xopenex 1.25 mg Route: Inhalation; jb4 02:08 Drug: Rocephin 1 grams Route: IV; Rate: calculated rate; Site: right antecubital; jb4 02:11 Follow up: IV Status: Completed infusion; IV Intake: 10ml jb4 03:51 Follow up: Response: No adverse reaction sf 02:13 Drug: AZITHromycin 500 mg Route: IVPB; Infused Over: 1 hrs; Site: right antecubital; jb4 03:15 Follow up: IV Status: Completed infusion; IV Intake: 250ml sf Intake: 02:11 IV: 10ml; Total: 10ml. jb4 03:15 IV: 250ml; Total: 260ml. sf Outcome: 02:10 Decision to Hospitalize by Provider. ma2 04:45 Admitted to Tele accompanied by nurse, via stretcher, room 216, with oxygen, Report sf called to SABINE Coker 04:45 Condition: stable sf 05:25 Patient left the ED. sf Signatures: Dispatcher [employer] EDMS Jones, Ricardo, RN RN em Edwin Higgins RN RN jb4 Parveen Reveles MD MD ma2 Jonny Mandujano RN RN sf Corrections: (The following items were deleted from the chart) 01:00 00:15 Pain: Denies pain. jb4 jb4 01:28 00:37 Pulse Ox 98% BiPAP; sf sf
--- NOTE | 2020-10-30 02:11 | EDPHYS ---
Physician Documentation [facility] Name: Jimbo Cat Age: 80 yrs Sex: Male : 1940 Arrival Date: 10/30/2020 Time: 00:21 Bed 15 Private MD: ED Physician Parveen Reveles HPI: 10/30 00:43 This 80 yrs old Male presents to ER via Unassigned with complaints of ma2 shortness of breath. 00:43 The patient has shortness of breath at rest. Associated signs and symptoms: Pertinent ma2 negatives: productive cough, dizziness, fever, nausea. Severity of symptoms: At their worst the symptoms were moderate in the emergency department the symptoms are unchanged. The patient has experienced similar episodes in the past, hx of copd, and chf. Historical: - Allergies: 00:15 No Known Allergies; jb4 - Home Meds: 00:15 carvedilol Oral [Active]; Eliquis 5 mg Oral tab 1 tab 2 times per day [Active]; Lasix jb4 Oral [Active]; metoprolol tartrate 25 mg Oral tab 1 tab 2 times per day [Active]; Plavix 75 mg Oral tab 1 tab once daily [Active]; Primidone Oral [Active]; Protonix 40 mg Oral TbEC 1 tab once daily [Active]; - PMHx: 00:15 Alcoholism; COPD; CVA; Diabetes; HEART FAILURE; Hypertension; possible dementia; jb4 - PSHx: 00:15 pace maker placement; jb4 - Immunization history:: Adult Immunizations up to date. - Social history:: Smoking status: Patient denies any tobacco usage or history of. Patient/guardian denies using alcohol, street drugs. - Family history:: not pertinent. ROS: 00:43 Constitutional: Negative for fever, chills, and weight loss. ma2 00:43 All other systems are negative. Exam: 00:43 Constitutional: This is a well developed, well nourished patient who is awake, alert, ma2 and in no acute distress. Chest/axilla: Normal chest wall appearance and motion. Nontender with no deformity. No lesions are appreciated. Cardiovascular: Regular rate and rhythm with a normal S1 and S2. No gallops, murmurs, or rubs. Normal PMI, no JVD. No pulse deficits. Abdomen/GI: Soft, non-tender, with normal bowel sounds. No distension or tympany. No guarding or rebound. No evidence of tenderness throughout. MS/ Extremity: Pulses equal, no cyanosis. Neurovascular intact. Full, normal range of motion. Neuro: Awake and alert, GCS 15, oriented to person, place, time, and situation. Cranial nerves II-XII grossly intact. Motor strength 5/5 in all extremities. Sensory grossly intact. Cerebellar exam normal. Normal gait. 00:43 Respiratory: moderate respiratory distress is noted, Respirations: labored breathing, Breath sounds: rales, wheezing: expiratory Respiratory rate: 30 Vital Signs: 00:15 BP 140 / 95; Pulse 60; Resp 21; Temp 98.5(TE); Pulse Ox 100% on Nebulizer Mask; Weight jb4 77.11 kg (R); Height 5 ft. 7 in. (170.18 cm); Pain 8/10; 00:30 BP 169 / 98; Pulse 59; Pulse Ox 100% ; sf 00:45 BP 155 / 88; Pulse 60; Pulse Ox 100% ; sf 01:00 BP 150 / 84; Pulse 60; Pulse Ox 100% ; sf 01:15 BP 154 / 85; Pulse 60; Resp 16; Pulse Ox 100% on 50% BiPAP; sf 02:15 BP 146 / 77; Pulse 60; Resp 16; Pulse Ox 100% ; sf 03:00 BP 134 / 81; Pulse 59; Resp 16; Pulse Ox 100% ; sf 04:00 BP 123 / 75; Pulse 62; Resp 16; Pulse Ox 100% ; sf 04:15 BP 121 / 75 (auto/); Pulse 62 MON; Resp 16 S; Pulse Ox 100% on BiPAP; sf 00:15 Body Mass Index 26.63 (77.11 kg, 170.18 cm) jb4 MDM: 00:24 Patient medically screened. ma2 00:43 Differential diagnosis: Anemia asthma, Bronchitis CHF exacerbation, Chronic Obstructive ma2 Pulmonary Disease reactive airway disease. 02:06 Data reviewed: vital signs, nurses notes. Counseling: I had a detailed discussion with ma2 the patient and/or guardian regarding: the historical points, exam findings, and any diagnostic results supporting the discharge/admit diagnosis, the presence of at least one elevated blood pressure reading (>120/80) during this emergency department visit, the need for further work-up and treatment in the hospital. 10/30 00:29 Order name: Blood Culture Adult (2) 10/30 00:29 Order name: BMP; Complete Time: 02:03 10/30 00:29 Order name: CBC with Diff 10/30 00:29 Order name: Ckmb; Complete Time: 02:03 10/30 00:29 Order name: CPK; Complete Time: 02:03 10/30 00:29 Order name: D-Dimer; Complete Time: 02:03 10/30 00:29 Order name: Hepatic Function; Complete Time: 02:03 10/30 00:29 Order name: Lipase; Complete Time: 02:03 10/30 00:29 Order name: Magnesium; Complete Time: 02:03 10/30 00:29 Order name: NT PRO-BNP; Complete Time: 02:03 10/30 00:29 Order name: PT-INR; Complete Time: 02:03 10/30 00:29 Order name: Ptt, Activated; Complete Time: 02:03 10/30 00:29 Order name: Troponin (emerg Dept Use Only); Complete Time: 02:03 10/30 00:29 Order name: Blood Culture EDGA 10/30 00:29 Order name: BIPAP 10/30 00:29 Order name: XRAY CXR (1 view) 10/30 00:29 Order name: EKG; Complete Time: 00:30 10/30 00:29 Order name: Cardiac monitoring; Complete Time: 01:10/30 00:29 Order name: EKG - Nurse/Tech; Complete Time: 01:10/30 00:29 Order name: IV Saline Lock; Complete Time: 01:01 10/30 01:16 Order name: Manual Differential EDGA 10/30 02:12 Order name: Osmolality, Serum 10/30 02:19 Order name: COVID-19 : Document "Date of Symptom Onset" if Symptomatic.: admission tt3 10/30 04:07 Order name: SARS-COV-2 RT PCR EDGA 10/30 00:29 Order name: Labs collected and sent; Complete Time: 01:10/30 00:29 Order name: O2 Per Protocol; Complete Time: 01:01 ma2 02 00:29 Order name: O2 Sat Monitoring; Complete Time: 01:01 ma2 Administered Medications: 00:30 Drug: Magnesium Sulfate 2 grams Route: IVPB; Infused Over: 2 hrs; Site: left jb4 antecubital; 02:30 Follow up: IV Status: Completed infusion sf 03:51 Follow up: Response: No adverse reaction sf 00:30 Drug: Nitro-Bid Ointment 2 % 1 inches Route: Transdermal; Site: anterior chest wall; jb4 03:52 Follow up: Response: No adverse reaction sf 00:45 Drug: Racemic EPINPHrine 0.5 ml Route: Inhalation; jb4 03:52 Follow up: Response: No adverse reaction sf 01:23 Drug: Xopenex 1.25 mg Route: Inhalation; jb4 02:08 Drug: Rocephin 1 grams Route: IV; Rate: calculated rate; Site: right antecubital; 4 02:11 Follow up: IV Status: Completed infusion; IV Intake: 10ml [facility] 03:51 Follow up: Response: No adverse reaction sf 02:13 Drug: AZITHromycin 500 mg Route: IVPB; Infused Over: 1 hrs; Site: right antecubital; jb4 03:15 Follow up: IV Status: Completed infusion; IV Intake: 250ml sf Disposition: 10/30/20 02:10 Hospitalization ordered by Parveen Crabtree for Inpatient Admission. Preliminary diagnosis are Chronic obstructive pulmonary disease with (acute) exacerbation, Other disorders of fluid, electrolyte and acid-base balance - hyponatremia. - Bed requested for Telemetry/MedSurg (Inpatient). - Status is Inpatient Admission. sf - Condition is Stable. - Problem is new. - Symptoms are unchanged. Signatures: Dispatcher [employer] EDMS Liz Chery RN RN tl1 Edwin Higgins RN RN jb4 Parveen Reveles MD MD tn2 Jonny Mandujano RN RN sf Corrections: (The following items were deleted from the chart) 04:16 02:10 Hospitalization Ordered by Parveen Crabtree MD for Inpatient Admission. Preliminary tl1 diagnosis is Chronic obstructive pulmonary disease with (acute) exacerbation; Other disorders of fluid, electrolyte and acid-base balance - hyponatremia. Bed requested for Telemetry/MedSurg (Inpatient). Status is Inpatient Admission. Condition is Stable. Problem is new. Symptoms are unchanged. ma2 05:25 04:16 10/30/2020 02:10 Hospitalization Ordered by Parveen Crabtree MD for Inpatient sf Admission. Preliminary diagnosis is Chronic obstructive pulmonary disease with (acute) exacerbation; Other disorders of fluid, electrolyte and acid-base balance - hyponatremia. Bed requested for Telemetry/MedSurg (Inpatient). Status is Inpatient Admission. Condition is Stable. Problem is new. Symptoms are unchanged. tl1
[2020-10-30 03:39] LABS: Blood Morphology Comment NOT SEEN (NOT SEEN); Platelet Estimate ADEQ
--- NOTE | 2020-10-30 03:47 | P.HP ---
Certification for Inpatient Patient admitted to: Inpatient With expected LOS: >2 Midnights Patient will require the following post-hospital care: None Practitioner: I am a practitioner with admitting privileges, knowledge of patient current condition, hospital course, and medical plan of care. Services: Services provided to patient in accordance with Admission requirements found in Title 42 Section 412.3 of the Code of Federal Regulations <Clarence Bridges - Last Filed: 10/30/20 03:42> Patient History Date of Service: 10/30/20 Primary Care Provider: David Reason for admission: COPD Exacerbation, Hypoxia, Hyponatremia History of Present Illness: This is a 80-year-old male patient with a history of chronic obstructive pulmonary disease, CVA, diabetes, congestive heart failure, hypertension that presented to the emergency room tonight after EMS was called out for difficulty breathing that started a couple hr prior to arrival. Patient stated that he generally never feels quite right but tonight had marked increase in shortness of breath. EMS prior to arrival initiated albuterol and Atrovent treatments along with Solu-Medrol patient was found to have moderate difficulty and respiratory drive upon arrival. Patient was placed on BiPAP and is now doing much better. Patient found to have a low magnesium of 1.6 and a low sodium of 124. Patient's magnesium was replaced with 2 g IV. Patient stated that his sodium is chronically low. Medicine consult at that time for further evaluation and admission. 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 - Family History Mother -: Heart disease, Hypertension, Diabetes, Cancer - Social History Smoking Status: Never smoker Smoking therapy provided: No Alcohol use: No CD- Drugs: No Caffeine use: Yes Place of Residence: Home <Clarence Bridges - Last Filed: 10/30/20 03:42> Date of Service: 10/30/20 - Family History Mother -: Heart disease, Hypertension, Diabetes, Cancer Father -: Heart disease <Parveen Crabtree - Last Filed: 11/27/20 13:46> Allergies No Known Allergies Allergy (Verified 10/11/20 23:03) Home Medications: Albuterol Sulfate [Ventolin Hfa] 18 IN BID 11/13/20 Furosemide 20 mg PO BID 11/13/20 Metoprolol Succinate [Toprol Xl*] 50 mg PO BID* 11/13/20 Potassium Chloride [Micro-K] 10 meq PO M,W,F 11/13/20 Primidone 250 mg PO QID 11/13/20 Sacubitril/Valsartan [Entresto 97 mg-103 mg Tablet] 1 each PO BID 11/13/20 predniSONE [Prednisone*] 20 mg PO BID #15 tab 11/13/20 Review of Systems General: Malaise Eyes: Unremarkable ENT: Unremarkable Respiratory: Shortness of Breath, SOB with Excertion Cardiovascular: Unremarkable Gastrointestinal: Unremarkable Genitourinary: Unremarkable Musculoskeletal: Unremarkable Integumentary: Unremarkable Neurological: Unremarkable Lymphatics: Unremarkable <Clarence Bridges - Last Filed: 10/30/20 03:42> Physical Examination - Vital Signs Temperature: 98.5 F Blood Pressure: 140/95 Pulse: 60 Respirations: 22 Pulse Ox (%): 100 (BiPAP at 50% FiO2) - Physical Exam General: Alert, In no apparent distress, Oriented x3, Cooperative HEENT: PERRLA, EOMI Neck: Supple, 2+ carotid pulse no bruit, JVD not distended, No Thyromegaly Respiratory: Diminished, Inspiratory wheezes Cardiovascular: No edema, Normal pulses, Regular rate/rhythm, Normal S1 S2, No gallops, No rubs, Systolic murmur Capillary refill: <2 Seconds Gastrointestinal: Normal bowel sounds, Soft and benign, Non-distended, No ascites, No tenderness, No masses, No rebound, No guarding Musculoskeletal: No clubbing, No swelling, No contractures, No erythema, No tenderness, No warmth Integumentary: No rashes, No breakdown, No significant lesion, No tenderness/swelling, No erythema, No warmth, No cyanosis Neurological: Normal speech, Normal strength at 5/5 x4 extr, Normal tone, Sensation intact, Cranial nerves 3-12 intact, Normal affect Lymphatics: No axilla or inguinal lymphadenopathy - Studies Laboratory Data (last 24 hrs) 10/30/20 00:30: PT 12.5, INR 1.09, APTT 36.4 10/30/20 00:30: WBC 3.30 L, Hgb 11.4 L, Hct 33.3 L, Plt Count 136 L 10/30/20 00:30: Sodium 124 L, Potassium 3.8, BUN 16, Creatinine 1.57 H, Glucose 119 H, Magnesium 1.6 L, Total Bilirubin 0.4, AST 30, ALT 29, Alkaline Phosphatase 91, Lipase 88 <NickydonnaDamaris zamanClarence - Last Filed: 10/30/20 03:42> Assessment and Plan - Problems (Diagnosis) (1) Chronic obstructive pulmonary disease with acute exacerbation Status: Acute Plan: Patient will be admitted for COPD with exacerbation. Patient was placed on BiPAP in the emergency room and will continue this for foreseeable future until we can safely wean him off. Patient will have KAMAR treatments and Solu-Medrol as well. We will continue to monitor pulse oximetry and respiratory status. (2) Acute respiratory failure Status: Acute Plan: Patient placed on BiPAP for acute respiratory failure with hypoxia. Patient will be on BiPAP for the foreseeable future and will wean as respiratory status improves. Patient will continue on steroids and breathing treatments. Qualifiers: Respiratory failure complication: hypoxia (3) Hypomagnesemia Status: Acute Plan: Patient had magnesium replaced in the emergency room. We will continue magnesium replacement protocol in the inpatient setting in adjust as needed. (4) Hyponatremia Status: Chronic Plan: Patient not an acute volume overload status. As such we will lightly hydrate up to 1 later and see if it has any improvement on his hyponatremia. (5) CHF (congestive heart failure) Onset Date: 11/24/17 Status: Chronic Plan: Patient has chronic congestive heart failure but no active volume overload. We will monitor volume status. Given Lasix as needed Qualifiers: Heart failure type: unspecified Heart failure chronicity: unspecified Qualified Code(s): I50.9 - Heart failure, unspecified (6) Diabetes mellitus, type II Onset Date: 11/24/17 Status: Chronic Plan: Patient with only mild elevation in glucose in emergency room of 119. Patient will have monitored glucose will be on ADA diet. Will put on mild sliding scale if needed. Qualifiers: Diabetes mellitus correction insulin use: with roasterman use Diabetes mellitus complication status: without complication Qualified Code(s): E11.9 - Type 2 diabetes mellitus without complications; Z79.4 - retirement (current) use of insulin (7) HTN (hypertension) Onset Date: 11/24/17 Status: Chronic Plan: Patient's blood pressure will be managed with antihypertensives for systolic greater than 160 Qualifiers: Hypertension type: essential hypertension Discharge Plan: Home Plan to discharge in: 48 Hours - Advance Directives Does patient have a Living Will: Yes Does patient have a Durable POA for Healthcare: Yes - Code Status/Comfort Care Code Status Assessed: No Critical Care: No Time Spent Managing Pts Care (In Minutes): 70 <Clarence Bridges - Last Filed: 10/30/20 03:42> - Problems (Diagnosis) (1) Chronic obstructive pulmonary disease with acute exacerbation Status: Acute (2) CHF (congestive heart failure) Onset Date: 11/24/17 Status: Chronic Qualifiers: Heart failure type: unspecified Heart failure chronicity: unspecified Qualified Code(s): I50.9 - Heart failure, unspecified (3) Alcohol intoxication Onset Date: 08/30/18 Status: Acute Qualifiers: Complication of substance-induced condition: with unspecified complication Qualified Code(s): F10.929 - Alcohol use, unspecified with intoxication, unspecified <Parveen Crabtree - Last Filed: 11/27/20 13:46> Date of Service: 10/30/20 Plan is to continue with treatment with nebs and steroids. Will monitor him through the night and if patient does well possible discharge home in the morning. <Parveen Crabtree - Last Filed: 11/27/20 13:46>
[2020-10-30] MEDS ORDERED: ALBUTEROL 2.5 MG/3 ML NEB SOL NEB PRN (05:33)
[2020-10-30] MEDS ORDERED: IPRATROPIUM BROM 0.5MG/2.5ML NEB PRN (05:33)
[2020-10-30] MEDS ORDERED: NA CHLORIDE 0.9% 1,000 ML IV SCH (05:33)
[2020-10-30] MEDS ORDERED: ONDANSETRON 4 MG/2 ML VIAL IV PRN (05:33)
[2020-10-30 05:35] VITALS: BMI 24.6
[2020-10-30] MEDS: METOPROLOL TAR 25 MG TAB PO SCH ×2 (06:36→17:14)
--- NOTE | 2020-10-30 09:02 | RAD REPORT ---
EXAM DESCRIPTION: RAD - Chest Single View - 10/30/2020 1:11 am CLINICAL HISTORY: CONGESTION Chest pain. COMPARISON: Chest Single View dated 10/11/2020; Chest Single View dated 09/22/2020; Chest Single View d ated 08/16/2020; Chest Single View dated 11/30/2019 FINDINGS: Portable technique limits examination quality. Moderately severe bilateral pulmonary opacities are again noted, mildly progressive since the compara tive study. The heart is quite prominent in size. Multilead pacer/defibrillator device is present. IMPRESSION: Moderate worsening in CHF pattern since prior study.
[2020-10-30] MEDS: ASPIRIN EC 81 MG TAB PO SCH (09:19)
[2020-10-30] MEDS: METHYLPREDNISOLONE 40 MG INJ IV SCH ×2 (09:20→17:14)
[2020-10-30] MEDS: APIXABAN 5 MG TABLET PO SCH ×2 (09:20→20:37)
[2020-10-30] MEDS ORDERED: MAGNESIUM SULFATE 1 gm IVPB 1 GM/100 ML BAG IV ONE (21:00)
[2020-10-31] MEDS: METHYLPREDNISOLONE 40 MG INJ IV SCH ×3 (01:54→16:25)
[2020-10-31] MEDS: METOPROLOL TAR 25 MG TAB PO SCH (05:57)
[2020-10-31 06:06] LABS: Absolute Lymphocytes (CBC) 0.2 K/uL (0.7-4.9); Basophils % 0.2 % (0-1.3); Hematocrit 28.3 % (39.6-49.0); Lymphocytes % 6.1 % (15.3-44.8); MPV 8.9 fL (7.6-11.3); RBC Red Blood Cell Count 3.01 M/uL (4.33-5.43)
[2020-10-31 06:35] LABS: Magnesium 1.8 mg/dL (1.8-2.4); Potassium 4.5 mmol/L (3.5-5.1)
[2020-10-31] MEDS: ASPIRIN EC 81 MG TAB PO SCH (08:33)
[2020-10-31] MEDS: APIXABAN 5 MG TABLET PO SCH (08:34)
[2020-10-31] MEDS ORDERED: MAGNESIUM SULFATE 1 gm IVPB 1 GM/100 ML BAG IV ONE (09:00)
[2020-10-31] MEDS ORDERED: FUROSEMIDE 40 MG/4 ML VIAL IV ONE (09:17)
--- NOTE | 2020-10-31 10:49 | RAD REPORT ---
EXAM DESCRIPTION: Daniel Single View10/31/2020 10:43 am CLINICAL HISTORY: Shortness of breath COMPARISON: October 30 FINDINGS: Bilateral pulmonary opacities have partially resolved. The heart remains enlarged. Pacema ker lead in place IMPRESSION: Improvement in CHF
[2020-10-31] MEDS: PRIMIDONE 50 MG TAB PO SCH ×2 (12:12→16:25)
[2020-10-31] MEDS ORDERED: PRIMIDONE 250 MG TAB PO SCH (13:00)
--- NOTE | 2020-10-31 15:14 | P.PN ---
Subjective Date of Service: 10/30/20 Subjective: No new changes, No C/O voiced, Improving Review of Systems 10-point ROS is otherwise unremarkable Physical Examination - Vital Signs Temperature: 98.5 F Blood Pressure: 142/78 Pulse: 60 Respirations: 20 Pulse Ox (%): 97 - Physical Exam General: Alert, In no apparent distress, Oriented x3 Respiratory: Clear to auscultation bilaterally, Normal air movement Cardiovascular: Regular rate/rhythm, Normal S1 S2 Gastrointestinal: Normal bowel sounds, No tenderness Musculoskeletal: No tenderness Integumentary: No rashes Neurological: Normal speech, Normal tone, Normal affect Lymphatics: No axilla or inguinal lymphadenopathy - Studies Medications List Reviewed: Yes Assessment & Plan - Problems (Diagnosis) (1) Chronic obstructive pulmonary disease with acute exacerbation Status: Acute (2) CHF (congestive heart failure) Onset Date: 11/24/17 Status: Chronic Qualifiers: Heart failure type: unspecified Heart failure chronicity: unspecified Qualified Code(s): I50.9 - Heart failure, unspecified (3) Alcohol intoxication Onset Date: 08/30/18 Status: Acute Qualifiers: Complication of substance-induced condition: with unspecified complication Qualified Code(s): F10.929 - Alcohol use, unspecified with intoxication, unspecified - Plan Plan: 1. Continue with albuterol and Atrovent nebs 2. Continue with IV steroids 3. Repeat labs in a.m. 4. Pulmonary follow-up if symptoms do not improve 5. Room air O2 sats 6. Repeat chest x-ray in the morning 7. GI and DVT prophylaxis - Advance Directives Does patient have a Living Will: Yes Does patient have a Durable POA for Healthcare: Yes
--- NOTE | 2020-10-31 15:14 | P.DS ---
Discharge Date: 10/31/20 Primary Care Provider: David Disposition: ROUTINE DISCHARGE Discharge Condition: GOOD Reason for Admission: COPD Exacerbation, Hypoxia, Hyponatremia - Problems (1) Chronic obstructive pulmonary disease with acute exacerbation Status: Acute (2) CHF (congestive heart failure) Onset Date: 11/24/17 Status: Chronic Qualifiers: Heart failure type: unspecified Heart failure chronicity: unspecified Qualified Code(s): I50.9 - Heart failure, unspecified (3) Alcohol intoxication Onset Date: 08/30/18 Status: Acute Qualifiers: Complication of substance-induced condition: with unspecified complication Qualified Code(s): F10.929 - Alcohol use, unspecified with intoxication, unspecified Brief History of Present Illness: This is a 80-year-old male patient with a history of chronic obstructive pulmonary disease, CVA, diabetes, congestive heart failure, hypertension that presented to the emergency room tonight after EMS was called out for difficulty breathing that started a couple hr prior to arrival. Patient stated that he generally never feels quite right but tonight had marked increase in shortness of breath. EMS prior to arrival initiated albuterol and Atrovent treatments along with Solu-Medrol patient was found to have moderate difficulty and respiratory drive upon arrival. Patient was placed on BiPAP and is now doing much better. Patient found to have a low magnesium of 1.6 and a low sodium of 124. Patient's magnesium was replaced with 2 g IV. Patient stated that his sodium is chronically low. Medicine consult at that time for further evaluation and admission. Hospital Course: Patient was treated with nebs, steroids, and diuretics. Patient is clinically doing well. At this time, patient stable for discharge home. Vital Signs/Physical Exam: Temp Pulse Resp BP Pulse Ox 98.5 F 60 20 142/78 H 97 10/31/20 15:14 10/31/20 15:14 10/31/20 15:14 10/31/20 15:14 10/31/20 15:14 General: Alert, In no apparent distress, Oriented x3 Laboratory Data at Discharge: WBC 3.00 K/uL (4.3-10.9) L 10/31/20 05:20 Hgb 9.9 g/dL (13.6-17.9) L 10/31/20 05:20 Hct 28.3 % (39.6-49.0) L D 10/31/20 05:20 Plt Count 142 K/uL (152-406) L 10/31/20 05:20 PT 12.5 SECONDS (9.5-12.5) 10/30/20 00:30 INR 1.09 10/30/20 00:30 APTT 36.4 SECONDS (24.3-36.9) 10/30/20 00:30 Sodium 125 mmol/L (136-145) L 10/31/20 05:20 Potassium 4.5 mmol/L (3.5-5.1) 10/31/20 05:20 BUN 22 mg/dL (7-18) H 10/31/20 05:20 Creatinine 1.40 mg/dL (0.55-1.3) H 10/31/20 05:20 Glucose 128 mg/dL (74-106) H 10/31/20 05:20 Magnesium 1.8 mg/dL (1.8-2.4) 10/31/20 05:20 Total Bilirubin 0.4 mg/dL (0.2-1.0) 10/30/20 00:30 AST 30 U/L (15-37) 10/30/20 00:30 ALT 29 U/L (12-78) 10/30/20 00:30 Alkaline Phosphatase 91 U/L (45-117) 10/30/20 00:30 Lipase 88 U/L (73-393) 10/30/20 00:30 Home Medications: Albuterol Sulfate [Ventolin Hfa] 18 IN BID 11/13/20 Furosemide 20 mg PO BID 11/13/20 Metoprolol Succinate [Toprol Xl*] 50 mg PO BID* 11/13/20 Potassium Chloride [Micro-K] 10 meq PO M,W,F 11/13/20 Primidone 250 mg PO QID 11/13/20 Sacubitril/Valsartan [Entresto 97 mg-103 mg Tablet] 1 each PO BID 11/13/20 predniSONE [Prednisone*] 20 mg PO BID #15 tab 11/13/20 Physician Discharge Instructions: OK TO DC IV AND DC HOME FOLLOW-UP WITH PRIMARY CARE PROVIDER IN 1-2 WEEKS FOLLOW-UP WITH CARDIOLOGY IN 1-2 WEEKS FOLLOW-UP WITH PULMONARY IN 2-4 WEEKS RETURN TO THE ER IF SYMPTOMS WORSEN CALL or TEXT DR. GR AT [phone] IF ANY QUESTIONS REGARDING HOSPITAL STAY. PLEASE CALL THE FLOOR AT [phone] IF ANY MEDICATION OR NURSING QUESTIONS. Diet: Low sodium Activity: Fall precautions Followup: Everardo Gonzalez MD [ACTIVE - CAN ADMIT] - Max Pro MD [ACTIVE - CAN ADMIT] - Unknown,U [Primary Care Provider] - Time spent managing pt's care (in minutes): 35
[2020-10-31 16:57] VITALS: O2SAT 97
[2020-10-31] MEDS ORDERED: FUROSEMIDE 40 MG TABLET PO SCH (17:00)
[2020-10-31] MEDS ORDERED: VALSARTAN PO SCH (21:00)
[2020-10-31] MEDS ORDERED: SACUBITRIL PO SCH (21:00)
[2020-11-01] MEDS ORDERED: METOPROLOL TAR 25 MG TAB PO SCH (09:00)
[2020-11-27 13:39] VITALS: BP 142/78; TEMP 98.5
== END 2020-10-31 17:07 | disposition home or self-care (01) | DRG 190 ==
LOC: ER 00:19 → ERHOLD 03:08 → 2ND 04:34
PROVIDERS: ADMIT Hospitalist; ATTEND Hospitalist
PROC: 5A09457 Assistance with Respiratory Ventilation, 24-96 Consecutive Hours, Continuous Positive Airway Pressure (ICD-10-PCS; principal; 2020-10-30)
DX: J44.1 Chronic obstructive pulmonary disease with (acute) exacerbation (principal); J96.01 Acute respiratory failure with hypoxia; I50.31 Acute diastolic (congestive) heart failure; E87.1 Hypo-osmolality and hyponatremia; E78.5 Hyperlipidemia, unspecified; I11.0 Hypertensive heart disease with heart failure; E83.42 Hypomagnesemia; F10.129 Alcohol abuse with intoxication, unspecified; E11.9 Type 2 diabetes mellitus without complications; Z79.01 Long term (current) use of anticoagulants; Z79.02 Long term (current) use of antithrombotics/antiplatelets; Z79.899 Other long term (current) drug therapy; Z90.49 Acquired absence of other specified parts of digestive tract; Z86.73 Personal history of transient ischemic attack (TIA), and cerebral infarction without residual deficits; Z95.810 Presence of automatic (implantable) cardiac defibrillator; Z79.4 Long term (current) use of insulin; Z79.52 Long term (current) use of systemic steroids; Z20.822 Contact with and (suspected) exposure to COVID-19
CPT/HCPCS: 36415; 71045; 80048; 80076; 82550; 82553; 82947; 83690; 83735; 83880; 83930; 84484; 85025; 85379; 85610; 85730; 87040; 93005; 94660; 94760; 99285; J0456; J0696; J1940; J2920; J3475; J7030; J7050; U0003

== ENCOUNTER 2020-11-08 14:37 | Inpatient (IN) | payer OTHER ==
--- OUTSIDE RECORDS SUMMARY | 2020-11-08 14:39 | XMS REPORT | Continuity of Care Document ---
:1940 Author Organization [facility] t Address [address] [place] [address] Care Team Providers Name Role Phone Eryn [...] Active U 2018- [facility] 10-04 [facility] 00:00: [address] No Known DA Active U [facility] 05-20 [facility] 00:00: [address] Medications This patient has no known medications. Procedures This patient has no known procedures. Encounters Start End Encounter Admission Attending Care Care Encounter Source Date/Time Date/Time Type Type Clinicians Facility Department ID 2020-06-05 2020-06-05 Transition Mary Kay Cerna [id number] 00:00:00 00:00:00 of Care Cody Stover [id number] Clarisa [id number] 2020-05-29 2020-06-04 [facility] [id number] 18:50:00 17:57:00 Encounter Arben Julien [id number] Ling [id number] [place] [id number] Results This patient has no known results.
[2020-11-08] MEDS ORDERED: LEVALBUTEROL 1.25 MG/3 ML NEB ONE (15:32)
[2020-11-08 15:33] LABS: Basophils % 1.1 % (0-1.3); Hematocrit 31.9 % (39.6-49.0); Lymphocytes % 20.2 % (15.3-44.8); MPV 8.2 fL (7.6-11.3); Protime INR 1.03; RBC Red Blood Cell Count 3.42 M/uL (4.33-5.43)
[2020-11-08 15:45] LABS: Albumin 3.7 g/dL (3.4-5.0); Bilirubin Direct 0.1 mg/dL (0-0.2); Bilirubin Total 0.4 mg/dL (0.2-1.0); Magnesium 1.7 mg/dL (1.8-2.4); Potassium 3.8 mmol/L (3.5-5.1); Protein, Total 7.1 g/dL (6.4-8.2); Troponin (Emerg Dept Use Only) 0.04 ng/mL (0.0-0.045)
--- NOTE | 2020-11-08 16:10 | RAD REPORT ---
EXAM DESCRIPTION: Daniel Single View11/08/2020 3:43 pm CLINICAL HISTORY: Chest pain COMPARISON: October 31, 2020 FINDINGS: Cmug-me-mnnwykcr bilateral pulmonary opacities. The heart is mildly enlarged. . Pacemaker leads are in place. IMPRESSION: Mild to moderate CHF
[2020-11-08 17:08] LABS: SARS-COV-2 RT PCR NEGATIVE (NEGATIVE)
--- NOTE | 2020-11-08 17:14 | EDPHYS ---
Physician Documentation [facility] Name: Jimbo Cat Age: 80 yrs Sex: Male : 1940 Arrival Date: 11/08/2020 Time: 14:47 Bed 7 Private MD: ED Physician Rhys Dent HPI: 11/08 15:08 This 80 yrs old Male presents to ER via EMS with complaints of shortness of jmm breath. 15:08 The patient has shortness of breath at rest. Onset: The symptoms/episode began/occurred jmm gradually, 2 week(s) ago. Duration: The symptoms are continuous. The patient's shortness of breath is aggravated by nothing, is alleviated by nothing. This is a 80 year old male with a history of COPD, CVA, CHF, HTN that presents to the ED with complaints of ongoing shortness of breath. Patient states being admitted multiple times for the same exacerbation. . Historical: - Allergies: 14:51 No Known Allergies; jd3 - Home Meds: 14:51 carvedilol Oral [Active]; Lasix Oral [Active]; Eliquis 5 mg Oral tab 1 tab 2 times per jd3 day [Active]; metoprolol tartrate 25 mg Oral tab 1 tab 2 times per day [Active]; Primidone Oral [Active]; Plavix 75 mg Oral tab 1 tab once daily [Active]; Protonix 40 mg Oral TbEC 1 tab once daily [Active]; - PMHx: 14:51 Alcoholism; COPD; CVA; Diabetes; HEART FAILURE; Hypertension; possible dementia; jd3 - PSHx: 14:51 pace maker placement; jd3 - Immunization history:: Adult Immunizations up to date. - Social history:: Smoking status: unknown. ROS: 15:08 Constitutional: Negative for fever, chills, and weight loss, Cardiovascular: Negative jmm for chest pain, palpitations, and edema. 15:08 Respiratory: Positive for shortness of breath. 15:08 All other systems are negative. Exam: 15:08 Head/Face: atraumatic. Eyes: EOMI, no conjunctival erythema appreciated ENT: Moist jmm Mucus Membranes Neck: Trachea midline, Supple Chest/axilla: Normal chest wall appearance and motion. Cardiovascular: Regular rate and rhythm. No edema appreciated 15:08 Abdomen/GI: Non distended, soft Back: Normal ROM Skin: General appearance color normal MS/ Extremity: Moves all extremities, no obvious deformities appreciated, no edema noted to the lower extremities 15:08 Constitutional: The patient appears alert, awake, uncomfortable. 15:08 Respiratory: mild respiratory distress is noted, Respirations: tachypnea, that is moderate, Breath sounds: wheezing: is heard diffusely. 15:08 Neuro: Orientation: is normal, Mentation: is normal, Memory: is normal, Motor: is normal. 15:08 Psych: Behavior/mood is pleasant, cooperative. Vital Signs: 14:51 BP 173 / 82; Pulse 66; Resp 26 S; Temp 97.9(O); Pulse Ox 95% on R/A; Weight 67.13 kg jd3 (R); Height 5 ft. 7 in. (170.18 cm) (R); Pain 0/10; 15:55 BP 160 / 85; Pulse 65; Resp 21; Pulse Ox 100% on Nebulizer Mask; jl7 17:00 BP 158 / 70; Pulse 66; Resp 19; Pulse Ox 95% on R/A; jl7 18:00 BP 158 / 75; Pulse 65; Resp 18; Pulse Ox 100% ; jl7 14:51 Body Mass Index 23.18 (67.13 kg, 170.18 cm) jd3 MDM: 14:48 Patient medically screened. [facility] 17:11 Data reviewed: vital signs, nurses notes. Counseling: I had a detailed discussion with codie the patient and/or guardian regarding: the historical points, exam findings, and any diagnostic results supporting the discharge/admit diagnosis, lab results, radiology results, the need for further work-up and treatment in the hospital. ED course: I discussed the patient with Dr. Dent whom accepted the patient for admission. 11/08 14:48 Order name: Basic Metabolic Panel [facility] 11/08 14:48 Order name: CBC with Diff [facility] 11/08 14:48 Order name: LFT's [facility] 11/08 14:48 Order name: Magnesium [facility] 11/08 14:48 Order name: NT PRO-BNP [facility] 11/08 14:48 Order name: PT-INR; Complete Time: 15:41 [facility] 11/08 14:48 Order name: Troponin (emerg Dept Use Only); Complete Time: 15:48 [facility] 11/08 14:48 Order name: Basic Metabolic Panel; Complete Time: 15:48 [facility] 11/08 14:48 Order name: CBC with Automated Diff; Complete Time: 15:41 [facility] 11/08 14:48 Order name: Liver (Hepatic) Function; Complete Time: 15:48 [facility] 11/08 14:48 Order name: Magnesium; Complete Time: 15:48 [facility] 11/08 14:48 Order name: NT PRO-BNP; Complete Time: 15:48 [facility] 11/08 15:03 Order name: Blood Culture Adult (2) [facility] 11/08 15:03 Order name: Lactate; Complete Time: 15:50 [facility] 11/08 14:48 Order name: XRAY Chest (1 view); Complete Time: 16:18 [facility] 11/08 14:48 Order name: EKG; Complete Time: 14:49 [facility] 11/08 14:48 Order name: Cardiac monitoring; Complete Time: 15:39 [facility] 11/08 14:48 Order name: EKG - Nurse/Tech; Complete Time: 16:20 [facility] 11/08 14:48 Order name: IV Saline Lock; Complete Time: 15:39 [facility] 11/08 14:48 Order name: Labs collected and sent; Complete Time: 15:40 [facility] 11/08 14:48 Order name: O2 Per Protocol; Complete Time: 15:39 [facility] 11/08 14:48 Order name: O2 Sat Monitoring; Complete Time: 15:39 [facility] 11/08 15:06 Order name: Procalcitonin [facility] 11/08 15:07 Order name: Procalcitonin; Complete Time: 15:59 [facility] 11/08 17:08 Order name: COVID-19/FLU A+B; Complete Time: 17:27 EDMS Administered Medications: 15:39 Not Given (Physician Discretion): SOLU-Medrol 125 mg IVP once jl7 15:39 Drug: Xopenex (3) 1.25 mg Route: Inhalation; jl7 16:20 Follow up: Response: No adverse reaction jl7 Disposition: 11/09 13:07 Co-signature as Attending Physician, Rhys Dent MD. rn Disposition: 11/08/20 17:12 Hospitalization ordered by Richard Dent for Observation. Preliminary diagnosis are Acute on chronic combined systolic (congestive) and diastolic (congestive) heart failure, Chronic obstructive pulmonary disease with (acute) exacerbation, Hypo-osmolality and hyponatremia. - Bed requested for Telemetry/MedSurg (observation). - Status is Observation. jl7 - Condition is Stable. - Problem is an acute exacerbation. - Symptoms have improved. Signatures: Dispatcher [employer] EDCO Landry Yeager PA PA Rhsy Christianson MD MD rn Leal, Jahala, RN RN jl7 Jg Browning RN RN jd3 Isabel Perez Corrections: (The following items were deleted from the chart) 11/08 16: 15:07 Influenza Screen (A \T\ B)+BA.LAB.BRZ ordered. [facility] EDCO 16: 15:07 CORONAVIRUS+MR.LAB.BRZ ordered. [facility] EDCO 17:59 17:12 Hospitalization Ordered by Richard Dent MD for Observation. Preliminary eb diagnosis is Acute on chronic combined systolic (congestive) and diastolic (congestive) heart failure; Chronic obstructive pulmonary disease with (acute) exacerbation; Hypo-osmolality and hyponatremia. Bed requested for Telemetry/MedSurg (observation). Status is Observation. Condition is Stable. Problem is an acute exacerbation. Symptoms have improved. [facility] 19:07 17:59 11/08/2020 17:12 Hospitalization Ordered by Richard Dent MD for Observation. jl7 Preliminary diagnosis is Acute on chronic combined systolic (congestive) and diastolic (congestive) heart failure; Chronic obstructive pulmonary disease with (acute) exacerbation; Hypo-osmolality and hyponatremia. Bed requested for Telemetry/MedSurg (observation). Status is Observation. Condition is Stable. Problem is an acute exacerbation. Symptoms have improved. eb
--- NOTE | 2020-11-08 17:14 | ER ---
Nurse's Notes [facility] Name: Jimbo Cat Age: 80 yrs Sex: Male : 1940 Arrival Date: 11/08/2020 Time: 14:47 Bed 7 Private MD: Diagnosis: Acute on chronic combined systolic (congestive) and diastolic (congestive) heart failure;Chronic obstructive pulmonary disease with (acute) exacerbation;Hypo-osmolality and hyponatremia Presentation: 11/08 14:48 Chief complaint: EMS states: "pt with COPD exasperation. pt has been here recently with jd3 multiple negative COVID results. reporting shortness of breath today. we could hear him wheezing from down the [place]. we gave one A\\T\\A treatment, one Albuterol treatment, and 125 mg of Solu-Medrol through a 18 G IV to his right AC.". Coronavirus screen: shortness of breath, Client presents with at least one sign or symptom that may indicate coronavirus-19. Standard/surgical mask placed on the client. Provider contacted for isolation considerations. Ebola Screen: Patient negative for fever greater than or equal to 101.5 degrees Fahrenheit, and additional compatible Ebola Virus Disease symptoms. Initial Sepsis Screen: Does the patient meet any 2 criteria? No. Patient's initial sepsis screen is negative. Does the patient have a suspected source of infection? No. Patient's initial sepsis screen is negative. Risk Assessment: Do you want to hurt yourself or someone else? Patient reports no desire to harm self or others. Onset of symptoms was November 08, 2020. 14:48 Method Of Arrival: EMS: [facility] jd3 14:48 Acuity: SYDNIE 3 jd3 Historical: - Allergies: 14:51 No Known Allergies; jd3 - Home Meds: 14:51 carvedilol Oral [Active]; Lasix Oral [Active]; Eliquis 5 mg Oral tab 1 tab 2 times per jd3 day [Active]; metoprolol tartrate 25 mg Oral tab 1 tab 2 times per day [Active]; Primidone Oral [Active]; Plavix 75 mg Oral tab 1 tab once daily [Active]; Protonix 40 mg Oral TbEC 1 tab once daily [Active]; - PMHx: 14:51 Alcoholism; COPD; CVA; Diabetes; HEART FAILURE; Hypertension; possible dementia; jd3 - PSHx: 14:51 pace maker placement; jd3 - Immunization history:: Adult Immunizations up to date. - Social history:: Smoking status: unknown. Screenin:00 Abuse screen: Denies threats or abuse. Denies injuries from another. Nutritional jl7 screening: No deficits noted. Tuberculosis screening: No symptoms or risk factors identified. Fall Risk IV access (20 points). Total Johnston Fall Scale indicates No Risk (0-24 pts). Assessment: 15:00 General: Appears in no apparent distress. uncomfortable, Behavior is calm, cooperative, jl7 appropriate for age. Pain: Denies pain. Neuro: Level of Consciousness is awake, alert, obeys commands, Oriented to person, place, time, situation. Cardiovascular: Heart tones present Patient's skin is warm and dry. Respiratory: Airway is patent Respiratory effort is even, labored, with retractions, Respiratory pattern is symmetrical, tachypnea Breath sounds with wheezes bilaterally. Derm: Skin is pink, warm \\T\\ dry. 16:00 Reassessment: Patient appears in no apparent distress at this time. Patient and/or jl7 family updated on plan of care and expected duration. Pain level reassessed. Patient is alert, oriented x 3, equal unlabored respirations, skin warm/dry/pink. Patient states symptoms have improved. 17:00 Reassessment: Patient appears in no apparent distress at this time. No changes from jl7 previously documented assessment. Patient and/or family updated on plan of care and expected duration. Pain level reassessed. Patient is alert, oriented x 3, equal unlabored respirations, skin warm/dry/pink. 18:00 Reassessment: Patient appears in no apparent distress at this time. No changes from jl7 previously documented assessment. Patient and/or family updated on plan of care and expected duration. Pain level reassessed. Patient is alert, oriented x 3, equal unlabored respirations, skin warm/dry/pink. Vital Signs: 14:51 BP 173 / 82; Pulse 66; Resp 26 S; Temp 97.9(O); Pulse Ox 95% on R/A; Weight 67.13 kg jd3 (R); Height 5 ft. 7 in. (170.18 cm) (R); Pain 0/10; 15:55 BP 160 / 85; Pulse 65; Resp 21; Pulse Ox 100% on Nebulizer Mask; jl7 17:00 BP 158 / 70; Pulse 66; Resp 19; Pulse Ox 95% on R/A; jl7 18:00 BP 158 / 75; Pulse 65; Resp 18; Pulse Ox 100% ; jl7 14:51 Body Mass Index 23.18 (67.13 kg, 170.18 cm) jd3 ED Course: 14:47 Patient arrived in ED. iw 14:48 Landry Yeager PA is PHCP. jmm 14:48 Rhys Dent MD is Attending Physician. jmm 14:51 Triage completed. jd3 14:52 Arm band placed on. jd3 15:00 Patient has correct armband on for positive identification. Placed in gown. Bed in low jl7 position. Call light in reach. Side rails up X2. shelter monitor on. Pulse ox on. NIBP on. Warm blanket given. 15:00 Maintain EMS IV. Dressing intact. Good blood return noted. Site clean \\T\\ dry. Gauge \\T\\ jl 7 site: 18 right AC. 15:11 Nilton Son RN is Primary Nurse. jl7 15:20 Initial lab(s) drawn, by ED staff, sent to lab. jl7 15:43 XRAY Chest (1 view) In Process Unspecified. EDMS 16:21 EKG done, by ED staff, reviewed by Landry CHIU. jl7 17:12 Richard Dent MD is Hospitalizing Provider. jmm 18:26 No provider procedures requiring assistance completed. Patient admitted, IV remains in jl7 place. intact, No redness/swelling at site. Administered Medications: 15:39 Not Given (Physician Discretion): SOLU-Medrol 125 mg IVP once jl7 15:39 Drug: Xopenex (3) 1.25 mg Route: Inhalation; jl7 16:20 Follow up: Response: No adverse reaction jl7 Outcome: 17:12 Decision to Hospitalize by Provider. jmm 18:26 Admitted to Tele accompanied by tech, via wheelchair, room 231, with chart, Report jl7 called to SABINE Lopez 18:26 Condition: stable 18:26 Discharge instructions given to patient, Instructed on the need for admit, Demonstrated understanding of instructions. 19:07 Patient left the ED. jl7 Signatures: Dispatcher [employer] EDMS Yeager, Landry, PA PA jmm Jhonny, Rubi, RN RN iw Nilton Son RN RN jl7 Jg Browning RN RN jd3 Corrections: (The following items were deleted from the chart) 15:55 15:00 BP 160 / 85; Pulse 65bpm; Resp 21bpm; Pulse Ox 100% Nebulizer Mask; drew jl7
--- NOTE | 2020-11-08 17:32 | P.HP ---
Certification for Inpatient Patient admitted to: Observation With expected LOS: <2 Midnights Practitioner: I am a practitioner with admitting privileges, knowledge of patient current condition, hospital course, and medical plan of care. Services: Services provided to patient in accordance with Admission requirements found in Title 42 Section 412.3 of the Code of Federal Regulations Patient History Date of Service: 11/08/20 Reason for admission: COPD exacerbation, CHF History of Present Illness: 80-year-old male, with PMH: CHF, COPD, AFib, HTN who presents to the ED due to 1 week of worsening shortness of breath and wheezing. Patient is a poor historian and does not completely remember all the events. He was recently discharged from this hospital ~ 9 days ago for similar issue. His discharge at that time with prednisone antibiotics, and nebulizers. He is unsure if he ever filled the prescriptions/was taking them. He denies fevers, chills, chest pain, abdominal pain, nausea/vomiting, diarrhea, new rashes. Workup in the ED revealed mild hyponatremia, function at baseline of 1.59, elevated BNP: 47100, negative pro calcitonin. I spoke with his who reported she gets his medicines together for him, but he is responsible for taking them. She is unsure exactly of all medications he is currently taking. He has home health but nurses come once a week and has been over 2 weeks since they last visited. Allergies No Known Allergies Allergy (Verified 10/11/20 23:03) Home Medications: Furosemide [Lasix*] 1 tab PO BID 08/17/20 Metoprolol Tartrate 1 tab PO BID 08/17/20 Primidone [Mysoline *] 150 mg PO QID 08/17/20 Sacubitril/Valsartan [Entresto 97 mg-103 mg Tablet] 1 tab PO BID 08/17/20 Albuterol Sulfate [Ventolin Hfa] 2 puff IH QID PRN 10/31/20 Cefdinir [Omnicef] 300 mg PO BID #10 capsule 10/31/20 Ipratropium Neb [Atrovent Neb] 0.5 mg NEB Q12H #120 amp 10/31/20 Levalbuterol HCl [Xopenex] 1.25 mg NEB Q6HR #120 vial.neb 10/31/20 Potassium Chloride [K-Dur] 10 meq PO M,W,F #15 tab.er.prt 10/31/20 metOLazone [Zaroxolyn*] 2.5 mg PO M,W,F #15 tab 10/31/20 predniSONE [Prednisone*] 20 mg PO BID #10 tab 10/31/20 - Past Medical/Surgical History Diabetic: No -: pacemaker/defibrillator 2010 -: Diabetes mellitus-not taking meds/resolved -: HTN -: Hyperlipidemia -: Multiple CVA 5x -: Depression -: MARZENA cataracts -: Moderate mitral regurgitation -: CHF, systolic dysfunction -: Parkinsons -: cervical vertebrae surgery x2 -: benign tumor removed from L knee -: appendectomy -: tonsilectomy -: 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 Psychosocial/ Personal History: 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 , 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 - Family History Father -: Heart disease Mother -: Heart disease, Hypertension, Diabetes, Cancer - Social History Smoking Status: Former smoker Alcohol use: No CD- Drugs: No Caffeine use: Yes Place of Residence: Home Review of Systems 10-point ROS is otherwise unremarkable Physical Examination - Studies Laboratory Data (last 24 hrs) 11/08/20 15:06: PT 11.8, INR 1.03 11/08/20 15:06: WBC 4.70 D, Hgb 11.2 L, Hct 31.9 L, Plt Count 188 D 11/08/20 15:06: Sodium 126 L, Potassium 3.8, BUN 29 H, Creatinine 1.59 H, Glucose 134 H, Magnesium 1.7 L, Total Bilirubin 0.4, AST 47 H, ALT 48, Alkaline Phosphatase 90 Assessment and Plan - Advance Directives Does patient have a Living Will: Yes Does patient have a Durable POA for Healthcare: Yes Physician Review Additional Text: Physical Exam: Gen: in mild-mod distress HEENT: PERRL CV: PVCs, paced rhythm, 1+ edema to knees bilaterally Pulm: diminished, diffuse wheeze / crackles, increased work of breathing Abd: soft, NTND Ext: 1+ edema, no rash Neuro: AAOx3, confused, +dementia Problem List: Acute on Chronic COPD exacerbation Acute on Chronic systolic CHF exacerbation, h/o HFrEF S/P pacemaker/defibrillator placement Chronic atrial fibrillation CKD 3 Hypertension Hyperlipidemia History of multiple CVA Received nebulizers, steroids in the ED. Still tachypneic and dyspneic but he reports breathing "much better" patient needs IV diuresis, continue nebulizers/steroids patient with dementia and does not seem to remember what medicines he is taking, states this has been very taxing on her as well wondering what would be next step for assistance. Discussed SNF/assisted living, stated they are on limited budget and he would likely not want to leave the home she states he has said before he would want to " at home". She asked about hospice, and if someone from hospice could call her for more information. Renal function at baseline Obtain home medications and restart as appropriate PT consulted, states patient has been very weak and is requiring a lot of assistance Last echocardiogram 04/05 shows systolic dysfunction with ejection fraction of 33%. VTE: lovenox Code: full Dispo: anticipate dc home in 24-48hrs Time Spent Managing Pts Care (In Minutes): 60
[2020-11-08 19:49] VITALS: BMI 23.2
[2020-11-08] MEDS: ALBUTEROL 2.5 MG/3 ML NEB SOL NEB SCH (21:00)
[2020-11-08] MEDS: INSULIN -REGULAR HUMAN 50 UNIT/0.5 ML ML SQ SCH (21:00)
[2020-11-08] MEDS: IPRATROPIUM BROM 0.5MG/2.5ML NEB SCH (21:00)
[2020-11-08 21:15] LABS: Urine Appearance CLEAR; Urine Bilirubin NEGATIVE (NEG); Urine Blood 1+ (NEG); Urine Color YELLOW; Urine Glucose NEGATIVE (NEG); Urine Protein 3+ (NEG); Urine Specific Gravity <=1.005 (1.005-1.030); Urine Urobilinogen 0.2 mg/dL (0.2-1.0)
[2020-11-08 21:21] LABS: Urine Microscopic Reflex ORDER UMIC
[2020-11-08 21:27] LABS: Urine Bacteria NONE SEEN /HPF (NONE SEEN); Urine RBC <5 /HPF (NONE SEEN)
[2020-11-08] MEDS: FUROSEMIDE 40 MG/4 ML VIAL IV SCH (22:52)
[2020-11-08] MEDS: METHYLPREDNISOLONE 40 MG INJ IV SCH (22:52)
[2020-11-08] MEDS: METOPROLOL TAR 25 MG TAB PO SCH (22:53)
[2020-11-08] MEDS: PRIMIDONE 50 MG TAB PO SCH (22:53)
[2020-11-09] MEDS: ALBUTEROL 2.5 MG/3 ML NEB SOL NEB SCH ×4 (02:20→19:28)
[2020-11-09] MEDS: IPRATROPIUM BROM 0.5MG/2.5ML NEB SCH ×4 (02:20→19:28)
[2020-11-09 07:00] LABS: Absolute Lymphocytes (CBC) 0.2 K/uL (0.7-4.9); Basophils % 0.4 % (0-1.3); Hematocrit 28.2 % (39.6-49.0); Lymphocytes % 7.9 % (15.3-44.8); MPV 8.3 fL (7.6-11.3); RBC Red Blood Cell Count 3.03 M/uL (4.33-5.43)
[2020-11-09 07:15] LABS: Magnesium 1.7 mg/dL (1.8-2.4); Phosphorus 3.2 mg/dL (2.5-4.9); Potassium 3.9 mmol/L (3.5-5.1)
[2020-11-09] MEDS: INSULIN -REGULAR HUMAN 50 UNIT/0.5 ML ML SQ SCH ×4 (07:30→21:00)
--- NOTE | 2020-11-09 07:33 | RAD REPORT ---
EXAM DESCRIPTION: RAD - Chest Single View - 11/09/2020 7:24 am CLINICAL HISTORY: SOB, CHF COMPARISON: Portable November 08 TECHNIQUE: AP portable chest image was obtained 11/09/2020 7:24 am . FINDINGS: Cardiomegaly and vascular engorgement remain. Vasculature is slightly worse. There is incr easing lung parenchymal opacification more notable in the right base. Defibrillator remains in place. Changes are partly due to a more shallow inspiration. Trachea is midline. No measurable pleural effusion and no pneumothorax. No acute bony abnormality see n. No acute aortic findings suspected. IMPRESSION: Moderate severity CHF/ volume overload pattern similar or slightly worse than prior day imaging.
[2020-11-09] MEDS ORDERED: MAGNESIUM SULFATE 1 gm IVPB 1 GM/100 ML BAG IV ONE (09:00)
[2020-11-09] MEDS ORDERED: POTASSIUM CL SA 10 MEQ TAB PO ONE (09:00)
[2020-11-09] MEDS: METHYLPREDNISOLONE 40 MG INJ IV SCH ×2 (09:51→21:43)
[2020-11-09] MEDS: FUROSEMIDE 40 MG/4 ML VIAL IV SCH ×3 (09:52→21:42)
[2020-11-09] MEDS: PRIMIDONE 50 MG TAB PO SCH ×4 (09:54→21:00)
[2020-11-09 10:03] LABS: Blood Morphology Comment NOT SEEN (NOT SEEN); Platelet Estimate DECR; White Blood Cell Scan OK (OK)
[2020-11-09] MEDS: METOPROLOL TAR 25 MG TAB PO SCH ×2 (10:40→21:43)
--- NOTE | 2020-11-09 12:30 | P.PN ---
Subjective Date of Service: 11/09/20 Chief Complaint: COPD exacerbation, CHF Subjective: Other (patient still tachypneic and dyspneic at rest. Increased work of breathing. He states he feels a lot better compared to yesterday. Seems to be less confused as well.) Physical Examination - Vital Signs Temperature: 96.6 F Blood Pressure: 155/86 Pulse: 60 Respirations: 18 Pulse Ox (%): 95 - Studies Laboratory Data (last 24 hrs) 11/08/20 15:06: PT 11.8, INR 1.03 11/08/20 15:06: WBC 4.70 D, Hgb 11.2 L, Hct 31.9 L, Plt Count 188 D 11/08/20 15:06: Sodium 126 L, Potassium 3.8, BUN 29 H, Creatinine 1.59 H, Glucose 134 H, Magnesium 1.7 L, Total Bilirubin 0.4, AST 47 H, ALT 48, Alkaline Phosphatase 90 Assessment & Plan Physician Review Additional Text: Physical Exam: Gen: in mild distress CV: paced rhythm, 1+ edema to knees bilaterally Pulm: diminished, diffuse crackles, mild increased work of breathing Abd: soft, NTND Ext: 1+ edema, no rash Neuro: AAOx3, +dementia Problem List: Acute on Chronic COPD exacerbation Acute on Chronic systolic CHF exacerbation, h/o HFrEF S/P pacemaker/defibrillator placement Chronic atrial fibrillation CKD 3 Hypertension Hyperlipidemia History of multiple CVA Received nebulizers, steroids in the ED. continue nebulizers/steroids patient still very dyspneic, would benefit from additional day of diuresis, increase to TID Renal function at ~baseline, slight improvement today with diuresis continue home medications PT consulted, states patient has been very weak and is requiring a lot of assistance Last echocardiogram 04/05 shows systolic dysfunction with ejection fraction of 33%. VTE: lovenox Code: full Dispo: anticipate dc home in 24hrs patient with dementia and does not seem to remember what medicines he is taking, he states his gets them all together for him states this has been very taxing on her as well wondering what would be next step for assistance. Discussed SNF/assisted living, stated they are on limited budget and he would likely not want to leave the home she states he has said before he would want to " at home". She asked about hospice, and if someone from hospice could call her for more information. Time Spent Managing Pts Care (In Minutes): 35
[2020-11-10] MEDS: IPRATROPIUM BROM 0.5MG/2.5ML NEB SCH ×3 (02:35→14:00)
[2020-11-10] MEDS: ALBUTEROL 2.5 MG/3 ML NEB SOL NEB SCH ×3 (02:35→14:00)
[2020-11-10 05:55] LABS: Absolute Lymphocytes (CBC) 0.3 K/uL (0.7-4.9); Basophils % 0.3 % (0-1.3); Hematocrit 29.1 % (39.6-49.0); Lymphocytes % 10.2 % (15.3-44.8); MPV 8.4 fL (7.6-11.3); RBC Red Blood Cell Count 3.08 M/uL (4.33-5.43)
[2020-11-10 06:26] LABS: Magnesium 1.8 mg/dL (1.8-2.4); Potassium 4.3 mmol/L (3.5-5.1)
[2020-11-10] MEDS: INSULIN -REGULAR HUMAN 50 UNIT/0.5 ML ML SQ SCH ×2 (07:30→11:30)
[2020-11-10 10:31] VITALS: O2SAT 99
[2020-11-10] MEDS: FUROSEMIDE 40 MG/4 ML VIAL IV SCH (10:39)
[2020-11-10] MEDS: METOPROLOL TAR 25 MG TAB PO SCH (10:40)
[2020-11-10] MEDS: PRIMIDONE 50 MG TAB PO SCH ×2 (10:41→13:00)
[2020-11-10] MEDS: METHYLPREDNISOLONE 40 MG INJ IV SCH (10:42)
[2020-11-10 14:34] VITALS: BP 144/78; TEMP 98.3
--- NOTE | 2020-11-15 14:41 | P.DS ---
Admission Date: 11/08/20 Discharge Date: 11/10/20 Disposition: DC HOME/HOME HEALTH CARE Discharge Condition: GOOD Reason for Admission: COPD exacerbation, CHF Procedures: CXR (11/08): [id number] bilateral pulmonary opacities. The heart is mildly enlarged. . Pacemaker leads are in place. Mild-moderate CHF CXR (11/09): Moderate severity CHF/ volume overload pattern similar or slightly worse than prior day imaging. Problem List: Acute on Chronic COPD exacerbation Acute on Chronic systolic CHF exacerbation, h/o HFrEF S/P pacemaker/defibrillator placement Chronic atrial fibrillation CKD 3 Hypertension Hyperlipidemia History of multiple CVA Brief History of Present Illness: 80-year-old male, with PMH: CHF, COPD, AFib, HTN who presents to the ED due to 1 week of worsening shortness of breath and wheezing. Patient is a poor historian and does not completely remember all the events. He was recently discharged from this hospital ~ 9 days ago for similar issue. His discharge at that time with prednisone antibiotics, and nebulizers. He is unsure if he ever filled the prescriptions/was taking them. He denies fevers, chills, chest pain, abdominal pain, nausea/vomiting, diarrhea, new rashes. Workup in the ED revealed mild hyponatremia, function at baseline of 1.59, elevated BNP: 78232, negative pro calcitonin. Patient's reported she gets his medicines together for him, but he is responsible for taking them. She is unsure exactly of all medications he is currently taking. He has home health but nurses come once a week and states it has been over 2 weeks since they last visited. Hospital Course: Patient was treated for COPD and CHF exacerbations. He diuresed well with increased doses of IV lasix. On day of discharge he was breathing much more comfortably on room air, ambulating well, and was wanting to be discharged home. On admission, patient was confused and has had multiple admissions for similar presentation. I spoke with his who requested to speak with home hospice team for more information, stating the patient previously said he wouldn't want to go to SNF. On day of discharge, patient stated he would be open to going to SNF if he continues to have exacerbations / worsening symptoms. Patient is high risk for readmission with h/o moderate-severe COPD and CHF, complicated by de mentia. He has good and bad days and I am concerned he may not be taking all of his medications. His and home health nursing help get the medications together, but states it is up to him to take and she checks by simply asking him yes/no most days. He was recently discharged in the last 2 weeks with prescriptiosn for nebulizer treatments and machine, which he reports he has now. He is to follow up with his PCP in the next few days. Vital Signs/Physical Exam: Physical Exam: Gen: NAD CV: paced rhythm, trace bilateral edema to ankles Pulm: diminished, mild expiratory wheeze at times, breathing comfortably on RA Abd: soft, NTND Ext: trace edema, no rash Neuro: AAOx3 Temp Pulse Resp BP Pulse Ox 98.3 F 60 17 144/78 H 95 11/10/20 12:00 11/10/20 12:00 11/10/20 12:00 11/10/20 12:00 11/10/20 12:00 Laboratory Data at Discharge: WBC 2.80 K/uL (4.3-10.9) L D 11/10/20 05:15 Hgb 10.1 g/dL (13.6-17.9) L 11/10/20 05:15 Hct 29.1 % (39.6-49.0) L 11/10/20 05:15 Plt Count 154 K/uL (152-406) 11/10/20 05:15 PT 11.8 SECONDS (9.5-12.5) 11/08/20 15:06 INR 1.03 11/08/20 15:06 Sodium 133 mmol/L (136-145) L 11/10/20 05:15 Potassium 4.3 mmol/L (3.5-5.1) 11/10/20 05:15 BUN 34 mg/dL (7-18) H 11/10/20 05:15 Creatinine 1.62 mg/dL (0.55-1.3) H 11/10/20 05:15 Glucose 130 mg/dL (74-106) H 11/10/20 05:15 Phosphorus 3.2 mg/dL (2.5-4.9) 11/09/20 05:58 Magnesium 1.8 mg/dL (1.8-2.4) 11/10/20 05:15 Total Bilirubin 0.4 mg/dL (0.2-1.0) 11/08/20 15:06 AST 47 U/L (15-37) H 11/08/20 15:06 ALT 48 U/L (12-78) 11/08/20 15:06 Alkaline Phosphatase 90 U/L (45-117) 11/08/20 15:06 Home Medications: Albuterol Sulfate [Ventolin Hfa] 18 IN BID 11/13/20 Furosemide 20 mg PO BID 11/13/20 Metoprolol Succinate [Toprol Xl*] 50 mg PO BID* 11/13/20 Potassium Chloride [Micro-K] 10 meq PO M,W,F 11/13/20 Primidone 250 mg PO QID 11/13/20 Sacubitril/Valsartan [Entresto 97 mg-103 mg Tablet] 1 each PO BID 11/13/20 predniSONE [Prednisone*] 20 mg PO BID #15 tab 11/13/20 Diet: AHA Activity: Ad brianna Followup: Unknown,U [Primary Care Provider] - Time spent managing pt's care (in minutes): 40
== END 2020-11-10 15:22 | disposition hospice, home (50) | DRG 291 ==
LOC: ER 14:37 → ERHOLD 17:22 → 2ND 18:27 → OBSVTOIN 11-09 18:26
PROVIDERS: ADMIT Hospitalist; ATTEND Hospitalist
DX: I13.0 Hypertensive heart and chronic kidney disease with heart failure and stage 1 through stage 4 chronic kidney disease, or unspecified chronic kidney disease (principal); I50.23 Acute on chronic systolic (congestive) heart failure; E87.1 Hypo-osmolality and hyponatremia; J44.1 Chronic obstructive pulmonary disease with (acute) exacerbation; I48.20 Chronic atrial fibrillation, unspecified; N18.30 Chronic kidney disease, stage 3 unspecified; E11.22 Type 2 diabetes mellitus with diabetic chronic kidney disease; F03.90 Unspecified dementia, unspecified severity, without behavioral disturbance, psychotic disturbance, mood disturbance, and anxiety; E78.5 Hyperlipidemia, unspecified; Z79.52 Long term (current) use of systemic steroids; Z79.899 Other long term (current) drug therapy; Z86.73 Personal history of transient ischemic attack (TIA), and cerebral infarction without residual deficits; Z90.49 Acquired absence of other specified parts of digestive tract; Z87.891 Personal history of nicotine dependence; Z95.810 Presence of automatic (implantable) cardiac defibrillator; Z79.01 Long term (current) use of anticoagulants; Z79.02 Long term (current) use of antithrombotics/antiplatelets; Z20.822 Contact with and (suspected) exposure to COVID-19
CPT/HCPCS: 0240U; 36415; 71045; 80048; 80076; 81003; 81015; 82947; 83605; 83735; 83880; 84100; 84145; 84484; 85025; 85610; 87040; 93005; 94760; 97161; 99285; G0378; J1940; J2920; J3475

== ENCOUNTER 2020-11-13 01:18 | Observation (INO) | payer OTHER ==
--- OUTSIDE RECORDS SUMMARY | 2020-11-13 01:22 | XMS REPORT | Continuity of Care Document ---
:1940 Author Organization [facility] t Address [address] [place] [address] Care Team Providers Name Role Phone Eryn [...] DA Active U 2018- [facility] 10-04 [facility] 00:00: [address] No Known DA Active U [facility] 05-20 [facility] 00:00: [address] Medications This patient has no known medications. Procedures This patient has no known procedures. Encounters Start End Encounter Admission Attending Care Care Encounter Source Date/Time Date/Time Type Type Clinicians Facility Department ID 2020-06-05 2020-06-05 Transition Mary Kay Cerna [id number] 00:00:00 00:00:00 of Care Cody Stover [id number] Clarisa [id number] 2020-05-29 2020-06-04 [facility] [id number] 18:50:00 17:57:00 Encounter Arben Julien [id number] Ling [id number] [place] [id number] Results This patient has no known results.
--- NOTE | 2020-11-13 02:06 | EDPHYS ---
Physician Documentation [facility] Name: Jimbo Cat Age: 80 yrs Sex: Male : 1940 Arrival Date: 11/13/2020 Time: 01:21 Bed 8 Private MD: Micha Hernandez T ED Physician Terry Sanderson HPI: 11/13 01:56 This 80 yrs old Male presents to ER via EMS with complaints of Shortness Of lubna Breath. 01:56 The patient has shortness of breath at rest, with light activity. Onset: The lubna symptoms/episode began/occurred 2 day(s) ago. Duration: The symptoms are continuous, and are steadily getting worse. The patient's shortness of breath is aggravated by nothing, is alleviated by nebulizer treatment, pursed lip breathing, rest, sitting up, application of supplemental oxygen. Associated signs and symptoms: Pertinent positives: non-productive cough. Severity of symptoms: At their worst the symptoms were moderate in the emergency department the symptoms are unchanged. The patient has experienced similar episodes in the past, multiple times. Historical: - Allergies: 01:29 No Known Allergies; rr5 - Home Meds: :29 carvedilol Oral [Active]; Eliquis 5 mg Oral tab 1 tab 2 times per day [Active]; Lasix rr5 Oral [Active]; metoprolol tartrate 25 mg Oral tab 1 tab 2 times per day [Active]; Plavix 75 mg Oral tab 1 tab once daily [Active]; Primidone Oral [Active]; Protonix 40 mg Oral TbEC 1 tab once daily [Active]; - PMHx: 01:29 Alcoholism; COPD; CVA; Diabetes; HEART FAILURE; Hypertension; possible dementia; rr5 - Immunization history:: Adult Immunizations up to date. - Social history:: Smoking status: unknown Patient uses alcohol. ROS: 01:58 Constitutional: Negative for fever, chills, and weight loss, Eyes: Negative for injury, lubna pain, redness, and discharge, ENT: Negative for injury, pain, and discharge, Neck: Negative for injury, pain, and swelling, Cardiovascular: Negative for chest pain, palpitations, and edema, Abdomen/GI: Negative for abdominal pain, nausea, vomiting, diarrhea, and constipation, Back: Negative for injury and pain, : Negative for injury, bleeding, discharge, and swelling, MS/Extremity: Negative for injury and deformity, Skin: Negative for injury, rash, and discoloration, Neuro: Negative for headache, weakness, numbness, tingling, and seizure, Psych: Negative for depression, anxiety, suicide ideation, homicidal ideation, and hallucinations, Allergy/Immunology: Negative for hives, rash, and allergies, Endocrine: Negative for neck swelling, polydipsia, polyuria, polyphagia, and marked weight changes, Hematologic/Lymphatic: Negative for swollen nodes, abnormal bleeding, and unusual bruising. 01:58 Respiratory: Positive for cough, with no reported sputum, dyspnea on exertion, orthopnea, wheezing, inspiratory, expiratory. 01:58 MS/extremity: Negative for acute changes. Exam: 01:58 Constitutional: This is a well developed, well nourished patient who is awake, alert, lubna and in no acute distress. Head/Face: Normocephalic, atraumatic. Eyes: Pupils equal round and reactive to light, extra-ocular motions intact. Lids and lashes normal. Conjunctiva and sclera are non-icteric and not injected. Cornea within normal limits. Periorbital areas with no swelling, redness, or edema. ENT: Nares patent. No nasal discharge, no septal abnormalities noted. Tympanic membranes are normal and external auditory canals are clear. Oropharynx with no redness, swelling, or masses, exudates, or evidence of obstruction, uvula midline. Mucous membranes moist. Neck: Trachea midline, no thyromegaly or masses palpated, and no cervical lymphadenopathy. Supple, full range of motion without nuchal rigidity, or vertebral point tenderness. No Meningismus. Chest/axilla: Normal chest wall appearance and motion. Nontender with no deformity. No lesions are appreciated. Cardiovascular: Regular rate and rhythm with a normal S1 and S2. No gallops, murmurs, or rubs. Normal PMI, no JVD. No pulse deficits. Abdomen/GI: Soft, non-tender, with normal bowel sounds. No distension or tympany. No guarding or rebound. No evidence of tenderness throughout. Back: No spinal tenderness. No costovertebral tenderness. Full range of motion. Male : Normal genitalia with no discharge or lesions. Skin: Warm, dry with normal turgor. Normal color with no rashes, no lesions, and no evidence of cellulitis. MS/ Extremity: Pulses equal, no cyanosis. Neurovascular intact. Full, normal range of motion. Neuro: Awake and alert, GCS 15, oriented to person, place, time, and situation. Cranial nerves II-XII grossly intact. Motor strength 5/5 in all extremities. Sensory grossly intact. Cerebellar exam normal. Normal gait. Psych: Awake, alert, with orientation to person, place and time. Behavior, mood, and affect are within normal limits. 01:58 Respiratory: mild respiratory distress is noted, Respirations: labored breathing, that is mild, Breath sounds: decreased breath sounds, that are moderate, rhonchi, that are mild, wheezing: inspiratory expiratory is heard diffusely. 03:15 ECG was reviewed by the Attending Physician. [facility] Vital Signs: 01:20 BP 150 / 91; Pulse 66; Resp 17; Temp 98; Pulse Ox 98% on 10% Nebulizer Mask; rr5 01:40 BP 151 / 90; Pulse 60; Resp 18; Pulse Ox 98% on R/A; ea 02:38 BP 158 / 91; Pulse 64; Resp 19; Pulse Ox 100% on 10% Nebulizer Mask; rr5 03:12 BP 153 / 70; Pulse 64; Resp 19; Pulse Ox 95% ; ea 04:30 BP 160 / 75; Pulse 66; Resp 17; Pulse Ox 96% on R/A; rr5 MDM: 01:31 Patient medically screened. [facility] 01:59 Differential diagnosis: Anxiety Reaction Bronchitis CHF exacerbation, Chronic lubna Obstructive Pulmonary Disease pneumonia, pulmonary edema, reactive airway disease, Sepsis. Antibiotic administration: Levaquin given. The patient's Wells Deep Vein Thrombosis Score was calculated as follows: Total Score: 0-2 Pts- Low Risk. Differential Diagnosis: Bronchitis Influenza Upper Respiratory Infection Asthma Exacerbation Pneumonia. The patient's pulmonary embolism risk score was calculated as follows: Total Score: 0-2 points. This patient was found to be at low risk for a pulmonary embolism by using the Well's assessment criteria. Immunization status: Pneumococcal vaccine: Influenza vaccine: Data reviewed: vital signs, nurses notes, EMS record, lab test result(s), cardiac enzymes, CBC, electrolytes, hepatic panel, urinalysis, EKG, radiologic studies, plain films. 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 Test interpretation: by ED physician or midlevel provider: ECG, plain radiologic studies. Counseling: I had a detailed discussion with the patient and/or guardian regarding: the historical points, exam findings, and any diagnostic results supporting the discharge/admit diagnosis, lab results, radiology results, the need for further work-up and treatment in the hospital. 11/13 01:55 Order name: Basic Metabolic Panel [facility] 11/13 01:55 Order name: CBC with Diff [facility] 11/13 01:55 Order name: LFT's [facility] 11/13 01:55 Order name: Magnesium [facility] 11/13 01:55 Order name: NT PRO-BNP [facility] 11/13 01:55 Order name: PT-INR [facility] 11/13 01:55 Order name: Troponin (emerg Dept Use Only) [facility] 11/13 01:56 Order name: Blood Culture Adult (2) [facility] 11/13 01:56 Order name: Lactate; Complete Time: 03:11 [facility] 11/13 01:56 Order name: Basic Metabolic Panel; Complete Time: 03:09 [facility] 11/13 01:56 Order name: CBC with Automated Diff; Complete Time: 03:09 [facility] 11/13 01:56 Order name: Liver (Hepatic) Function; Complete Time: 03:09 [facility] 11/13 01:55 Order name: XRAY Chest (1 view) [facility] 11/13 01:55 Order name: EKG; Complete Time: 01:57 [facility] 11/13 01:56 Order name: Magnesium; Complete Time: 03:09 [facility] 11/13 01:56 Order name: NT PRO-BNP; Complete Time: 03:09 [facility] 11/13 01:56 Order name: Protime (+INR); Complete Time: 03:09 [facility] 11/13 01:56 Order name: Troponin (Emerg Dept Use Only); Complete Time: 03:09 [facility] 11/13 01:56 Order name: Blood Culture [facility] 11/13 04:36 Order name: COVID-19/FLU A+B [facility] 11/13 06:32 Order name: Troponin I [facility] 11/13 01:55 Order name: Cardiac monitoring; Complete Time: 02:34 [facility] 11/13 01:55 Order name: EKG - Nurse/Tech; Complete Time: 02:59 [facility] 11/13 01:56 Order name: IV Saline Lock; Complete Time: 02:34 [facility] 11/13 01:56 Order name: Labs collected and sent; Complete Time: : [facility] 11/13 01:56 Order name: O2 Per Protocol; Complete Time: [facility] 11/13 01:56 Order name: O2 Sat Monitoring; Complete Time: : [facility] EC:15 Rate is 63 beats/min. Rhythm is regular. QRS [place] is Normal. [place] interval is shortened lubna at 72 msec. QRS interval is normal. QT interval is normal. No Q waves. T waves are Normal. No ST changes noted. Interpreted by me. Reviewed by me. Administered Medications: 02:15 Drug: Xopenex 3.75 mg Route: Inhalation; rr5 03:15 Follow up: Response: No adverse reaction rr5 02:15 Drug: AtroVENT Aerosol 0.5 mg Route: Inhalation; rr5 03:15 Follow up: Response: No adverse reaction rr5 02:35 Drug: Pepcid 20 mg Route: IVP; Site: left forearm; rr5 03:40 Follow up: Response: No adverse reaction rr5 02:50 Drug: levofloxacin 500 mg Volume: 100 ml; Route: IVPB; Infused Over: 60 mins; Site: rr5 left forearm; 03:41 Follow up: Response: No adverse reaction; IV Status: Completed infusion; IV Intake: rr5 100ml 02:50 Drug: Lasix 40 mg Route: IVP; Site: right antecubital; rr5 03:39 Follow up: Response: No adverse reaction rr5 03:39 Drug: Magnesium Sulfate 2 grams Route: IVPB; Infused Over: 2 hrs; Site: left forearm; rr5 05:03 Follow up: Response: No adverse reaction; IV Status: Completed infusion; IV Intake: [id number] 05:03 Not Given (Other Intervention Used): SOLU-Medrol 125 mg IVP once rr5 Disposition: 11/13/20 02:05 Hospitalization ordered by Michele Kaur for Observation. Preliminary diagnosis are Chronic obstructive pulmonary disease with (acute) exacerbation, Dyspnea, Systolic (congestive) heart failure, Hypo-osmolality and hyponatremia, Unspecified kidney failure, Hypomagnesemia. - Bed requested for Telemetry/MedSurg (observation). - Status is Observation. sv - Condition is Fair. - Problem is new. - Symptoms have improved. Signatures: Dispatcher [employer] Vandana Mccoy, RN RN Terry Mireles MD MD cha Martinez, Eric em1 Faisal Bridges PA PA jr8 Liz Chery, RN RN tl1 Richard Barron, SABINE RN rr5 Corrections: (The following items were deleted from the chart) 02:19 02:05 Hospitalization Ordered by Michele Kaur for Inpatient Admission. Preliminary lubna diagnosis is Chronic obstructive pulmonary disease with (acute) exacerbation; Dyspnea. Bed requested for Telemetry/MedSurg (Inpatient). Status is Inpatient Admission. Condition is Fair. Problem is new. Symptoms have improved. lubna 03:06 01:57 Influenza Screen (A \T\ B)+BA.LAB.BRZ ordered. [facility] 03:12 02:19 11/13/2020 02:05 Hospitalization Ordered by Michele Kaur for Observation. lubna Preliminary diagnosis is Chronic obstructive pulmonary disease with (acute) exacerbation; Dyspnea; Systolic (congestive) heart failure. Bed requested for Telemetry/MedSurg (observation). Status is Observation. Condition is Fair. Problem is new. Symptoms have improved. lubna 03:28 03:12 11/13/2020 02:05 Hospitalization Ordered by Michele Kaur for Observation. tl1 Preliminary diagnosis is Chronic obstructive pulmonary disease with (acute) exacerbation; Dyspnea; Systolic (congestive) heart failure; Hypo-osmolality and hyponatremia; Unspecified kidney failure; Hypomagnesemia. Bed requested for Telemetry/MedSurg (observation). Status is Observation. Condition is Fair. Problem is new. Symptoms have improved. lubna 03:29 01:57 CORONAVIRUS+MR.LAB.BRZ ordered. [facility] ED[facility] 07:34 03:28 11/13/2020 02:05 Hospitalization Ordered by Michele Kaur for Observation. em1 Preliminary diagnosis is Chronic obstructive pulmonary disease with (acute) exacerbation; Dyspnea; Systolic (congestive) heart failure; Hypo-osmolality and hyponatremia; Unspecified kidney failure; Hypomagnesemia. Bed requested for [facility] ER HOLD. Status is Observation. Condition is Fair. Problem is new. Symptoms have improved. tl1 08:59 07:34 11/13/2020 02:05 Hospitalization Ordered by Michele Kaur for Observation. sv Preliminary diagnosis is Chronic obstructive pulmonary disease with (acute) exacerbation; Dyspnea; Systolic (congestive) heart failure; Hypo-osmolality and hyponatremia; Unspecified kidney failure; Hypomagnesemia. Bed requested for Telemetry/MedSurg (observation). Status is Observation. Condition is Fair. Problem is new. Symptoms have improved. em1
--- NOTE | 2020-11-13 02:06 | ER ---
Nurse's Notes [facility] Name: Jimbo Cat Age: 80 yrs Sex: Male : 1940 Arrival Date: 11/13/2020 Time: 01:21 Bed 8 Private MD: Micha Hernandez T Diagnosis: Chronic obstructive pulmonary disease with (acute) exacerbation;Dyspnea;Systolic (congestive) heart failure;Hypo-osmolality and hyponatremia;Unspecified kidney failure;Hypomagnesemia Presentation: 11/13 01:20 Chief complaint: EMS states: complaints of Shortness of breath started today. has rr5 history of COPD exacerbation. expiratory wheezes noted RA97% , he has nebulizer and oxygen at home but he dont know how use it. 01:20 Coronavirus screen: Client denies travel out of the [place] in the last 14 days. shortness rr5 of breath. Ebola Screen: Patient negative for fever greater than or equal to 101.5 degrees Fahrenheit, and additional compatible Ebola Virus Disease symptoms Patient denies exposure to infectious person. Patient denies travel to an Ebola-affected area in the 21 days before illness onset. Initial Sepsis Screen: Does the patient meet any 2 criteria? No. Patient's initial sepsis screen is negative. Does the patient have a suspected source of infection? No. Patient's initial sepsis screen is negative. Risk Assessment: Do you want to hurt yourself or someone else? Patient reports no desire to harm self or others. Onset of symptoms was November 13, 2020. Care prior to arrival: Medication(s) given: A\T\A first dose, second dose albuterol, solumedrol 125mg/IV given IV initiated. 18 GA, in the right antecubital area. 01:20 Method Of Arrival: EMS: [facility] rr5 01:20 Acuity: SYDNIE 3 rr5 Triage Assessment: 01:30 General: Appears in no apparent distress. comfortable, Behavior is calm, cooperative, rr5 appropriate for age. Respiratory: Onset: The symptoms/episode began/occurred gradually, the patient has mild shortness of breath. Historical: - Allergies: 01:29 No Known Allergies; rr5 - Home Meds: 01:29 carvedilol Oral [Active]; Eliquis 5 mg Oral tab 1 tab 2 times per day [Active]; Lasix rr5 Oral [Active]; metoprolol tartrate 25 mg Oral tab 1 tab 2 times per day [Active]; Plavix 75 mg Oral tab 1 tab once daily [Active]; Primidone Oral [Active]; Protonix 40 mg Oral TbEC 1 tab once daily [Active]; - PMHx: 01:29 Alcoholism; COPD; CVA; Diabetes; HEART FAILURE; Hypertension; possible dementia; rr5 - Immunization history:: Adult Immunizations up to date. - Social history:: Smoking status: unknown Patient uses alcohol. Screenin:30 Abuse screen: Denies threats or abuse. Denies injuries from another. Nutritional rr5 screening: No deficits noted. Tuberculosis screening: No symptoms or risk factors identified. Fall Risk None identified. Total Johnston Fall Scale indicates No Risk (0-24 pts). Assessment: 01:30 General: Appears in no apparent distress. comfortable, Behavior is calm, cooperative, rr5 appropriate for age. Pain: Denies pain. Neuro: Level of Consciousness is awake, alert, obeys commands, Oriented to person, place, time. Cardiovascular: Capillary refill < 3 seconds Patient's skin is warm and dry. Respiratory: Reports shortness of breath Airway is patent Respiratory effort is even, unlabored, Respiratory pattern is regular, Breath sounds with wheezes. GI: Abdomen is round. : No signs and/or symptoms were reported regarding the genitourinary system. EENT: No signs and/or symptoms were reported regarding the EENT system. Derm: Skin is intact, is healthy with good turgor, Skin temperature is warm. Musculoskeletal: Capillary refill < 3 seconds. 02:30 Reassessment: Patient appears in no apparent distress at this time. Patient is alert, rr5 oriented x 3, equal unlabored respirations, skin warm/dry/pink. awaiting for results. 03:30 Reassessment: Patient appears in no apparent distress at this time. Patient is alert, rr5 oriented x 3, equal unlabored respirations, skin warm/dry/pink. Patient states symptoms have improved. 04:30 Reassessment: Patient appears in no apparent distress at this time. awake no complaints rr5 made Patient states feeling better. Patient states symptoms have improved. 07:30 Reassessment: Patient appears in no apparent distress at this time. No changes from sv previously documented assessment. Patient and/or family updated on plan of care and expected duration. Pain level reassessed. Patient is alert, oriented x 3, equal unlabored respirations, skin warm/dry/pink. Patient states symptoms have improved. Vital Signs: 01:20 BP 150 / 91; Pulse 66; Resp 17; Temp 98; Pulse Ox 98% on 10% Nebulizer Mask; rr5 01:40 BP 151 / 90; Pulse 60; Resp 18; Pulse Ox 98% on R/A; ea 02:38 BP 158 / 91; Pulse 64; Resp 19; Pulse Ox 100% on 10% Nebulizer Mask; rr5 03:12 BP 153 / 70; Pulse 64; Resp 19; Pulse Ox 95% ; ea 04:30 BP 160 / 75; Pulse 66; Resp 17; Pulse Ox 96% on R/A; rr5 ED Course: 01:21 Patient arrived in ED. sg 01:21 Micha Hernandez MD is Private Physician. sg 01:22 Richard Barron, RN is Primary Nurse. rr5 01:28 Triage completed. rr5 01:29 Arm band placed on right wrist. rr5 01:29 Patient has correct armband on for positive identification. Bed in low position. Call rr5 light in reach. Side rails up X2. Pulse ox on. NIBP on. 01:30 Maintain EMS IV. Dressing intact. Good blood return noted. Site clean \T\ dry. Gauge \T\ rr 5 site: G18 right AC. 01:30 Inserted saline lock: 20 gauge in left forearm, using aseptic technique. Blood rr5 collected. 01:31 Terry Sanderson MD is Attending Physician. lubna 02:04 Michele Kaur is Hospitalizing Provider. lubna 02:15 Subsequent Neb Treatment Given as ordered Patient was reinforced on procedure Patient rr5 tolerated procedure well without adverse effect. 02:20 First set of blood cultures drawn by me. rr5 02:28 XRAY Chest (1 view) In Process Unspecified. EDMS 02:40 Second set of blood cultures drawn by me. rr5 02:58 COVID swab sent to lab. Flu and/or RSV swab sent to lab. EKG done, by ED staff, rr5 reviewed by Terry Sanderson MD. 04:31 No provider procedures requiring assistance completed. Patient admitted, IV remains in rr5 place. intact, No redness/swelling at site. 07:41 Primary Nurse role handed off by Richard Barron, RN em1 08:13 Vandana Gomez, RN is Primary Nurse. sv Administered Medications: 02:15 Drug: Xopenex 3.75 mg Route: Inhalation; rr5 03:15 Follow up: Response: No adverse reaction rr5 02:15 Drug: AtroVENT Aerosol 0.5 mg Route: Inhalation; rr5 03:15 Follow up: Response: No adverse reaction rr5 02:35 Drug: Pepcid 20 mg Route: IVP; Site: left forearm; rr5 03:40 Follow up: Response: No adverse reaction rr5 02:50 Drug: levofloxacin 500 mg Volume: 100 ml; Route: IVPB; Infused Over: 60 mins; Site: rr5 left forearm; 03:41 Follow up: Response: No adverse reaction; IV Status: Completed infusion; IV Intake: rr5 100ml 02:50 Drug: Lasix 40 mg Route: IVP; Site: right antecubital; rr5 03:39 Follow up: Response: No adverse reaction rr5 03:39 Drug: Magnesium Sulfate 2 grams Route: IVPB; Infused Over: 2 hrs; Site: left forearm; rr5 05:03 Follow up: Response: No adverse reaction; IV Status: Completed infusion; IV Intake: [id number] 05:03 Not Given (Other Intervention Used): SOLU-Medrol 125 mg IVP once rr5 Intake: 03:41 IV: 100ml; Total: 100ml. rr5 05:03 IV: 50ml; Total: 150ml. rr5 Outcome: 02:05 Decision to Hospitalize by Provider. [facility] 04:31 Admitted to ER Hold. Please see [facility] for further documentation. rr5 04:31 Condition: stable 04:31 Instructed on the need for admit. 08:59 Patient left the ED. sv Signatures: Dispatcher [employer] EDMS Vandana Gomez RN RN sv Gay, Steven, RN RN sg Anderson, Corey, MD MD cha Martinez, Eric em1 Garima Rudd RN RN ea Roque, Raymond, RN RN rr5 Corrections: (The following items were deleted from the chart) 04:33 01:30 Respiratory: Reports shortness of breath Airway is patent Respiratory effort is rr5 even, unlabored, Respiratory pattern is regular, rr5
[2020-11-13] MEDS ORDERED: METHYLPREDNISOLONE 125 MG INJ ONE (02:21)
[2020-11-13] MEDS ORDERED: IPRATROPIUM BROM 0.5MG/2.5ML ONE (02:21)
[2020-11-13] MEDS ORDERED: FAMOTIDINE 20 MG/2 ML VIAL IV ONE (02:22)
[2020-11-13] MEDS ORDERED: Levofloxacin500mg IV 500 MG/100 ML BAG IV ONE (02:22)
[2020-11-13] MEDS ORDERED: LEVALBUTEROL 1.25 MG/3 ML NEB ONE (02:22)
[2020-11-13 02:54] LABS: Absolute Lymphocytes (CBC) 0.5 K/uL (0.7-4.9); Basophils % 1.3 % (0-1.3); Hematocrit 32.9 % (39.6-49.0); Lymphocytes % 11.8 % (15.3-44.8); MPV 8.3 fL (7.6-11.3); RBC Red Blood Cell Count 3.48 M/uL (4.33-5.43)
[2020-11-13 02:55] LABS: Protime INR 1.09
[2020-11-13] MEDS ORDERED: FUROSEMIDE 40 MG/4 ML VIAL ONE (03:01)
[2020-11-13 03:07] LABS: Albumin 3.7 g/dL (3.4-5.0); Bilirubin Direct 0.2 mg/dL (0-0.2); Bilirubin Total 0.5 mg/dL (0.2-1.0); Magnesium 1.6 mg/dL (1.8-2.4); Potassium 4.3 mmol/L (3.5-5.1); Protein, Total 7.1 g/dL (6.4-8.2); Troponin (Emerg Dept Use Only) 0.03 ng/mL (0.0-0.045)
--- NOTE | 2020-11-13 03:27 | P.HP ---
Certification for Inpatient Patient admitted to: Observation With expected LOS: <2 Midnights Patient will require the following post-hospital care: None Practitioner: I am a practitioner with admitting privileges, knowledge of patient current condition, hospital course, and medical plan of care. Services: Services provided to patient in accordance with Admission requirements found in Title 42 Section 412.3 of the Code of Federal Regulations <Clarence Bridges - Last Filed: 11/13/20 03:20> Patient History Date of Service: 11/13/20 Primary Care Provider: David Reason for admission: COPD Exacerbation, CHF exacerbation History of Present Illness: This is a 80 y/o M with history of COPD, Alcoholism, CVA, NIDDM, and CHF that presented to ED via EMS after having continued worsening of shortness of breath that started 2 days ago but at approximately 23:00 hours tonight became much worse. Patient stated that he tried to utilize his home nebulizers but was not working. EMS gave solu-medrol 125mg and KAMAR x1 in route to hospital. Patient worked up in ED and found to have a sodium of 126, potassium of 4.3, chloride of 90, bicarb of 25, BUN of 27, Creatinine of 1.59, and glucose of 128. Patient had H/H of 11.3 and 32.9 respectively with a WBC of 4.3 and platelet of 186. Mg++ was 1.6. BNP 9408, and troponin of 0.03. CXR shows CHF with COPD changes consistent with previous imaging. Patient given lasix and more breathing treatments in ED with mild improvement. Medicine consulted at that time for further evaluation and admission for observation. 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 - Family History Father -: Heart disease Mother -: Heart disease, Hypertension, Diabetes, Cancer - Social History Smoking Status: Never smoker Smoking therapy provided: No Alcohol use: No CD- Drugs: No Caffeine use: Yes Place of Residence: Home <Clarence Bridges - Last Filed: 11/13/20 03:20> Date of Service: 11/13/20 <Parveen Crabtree - Last Filed: 12/02/20 02:22> Allergies No Known Allergies Allergy (Verified 10/11/20 23:03) Home Medications: Albuterol Sulfate [Ventolin Hfa] 18 IN BID 11/13/20 Furosemide 20 mg PO BID 11/13/20 Metoprolol Succinate [Toprol Xl*] 50 mg PO BID* 11/13/20 Potassium Chloride [Micro-K] 10 meq PO M,W,F 11/13/20 Primidone 250 mg PO QID 11/13/20 Sacubitril/Valsartan [Entresto 97 mg-103 mg Tablet] 1 each PO BID 11/13/20 predniSONE [Prednisone*] 20 mg PO BID #15 tab 11/13/20 Review of Systems General: Unremarkable Eyes: Unremarkable ENT: Unremarkable Respiratory: Shortness of Breath, SOB with Excertion Cardiovascular: Orthopnea Gastrointestinal: Unremarkable Genitourinary: Unremarkable Musculoskeletal: Unremarkable Integumentary: Unremarkable Neurological: Unremarkable Lymphatics: Unremarkable <Clarence Bridges - Last Filed: 11/13/20 03:20> Physical Examination - Vital Signs Temperature: 98 F Blood Pressure: 150/91 Pulse: 66 Respirations: 18 Pulse Ox (%): 98 (NEB) - Physical Exam General: Alert, In no apparent distress, Oriented x3, Cooperative HEENT: PERRLA, Mucous membr. moist/pink, EOMI Neck: Supple, 2+ carotid pulse no bruit, JVD not distended, No Thyromegaly Respiratory: Crackles/rales (bibasilar), Inspiratory wheezes Cardiovascular: No edema, Normal pulses, Regular rate/rhythm, Normal S1 S2, No gallops, No rubs, No murmurs Capillary refill: <2 Seconds Gastrointestinal: Normal bowel sounds, Soft and benign, Non-distended, No ascites, No tenderness, No masses, No rebound, No guarding Musculoskeletal: No clubbing, No swelling, No contractures, No erythema, No tenderness, No warmth Integumentary: No rashes, No breakdown, No significant lesion, No tenderness/swelling, No erythema, No warmth, No cyanosis Neurological: Normal speech, Normal strength at 5/5 x4 extr, Normal tone, Sensation intact, Cranial nerves 3-12 intact, Normal affect Lymphatics: No axilla or inguinal lymphadenopathy - Studies Laboratory Data (last 24 hrs) 11/13/20 02:20: PT 12.5, INR 1.09 11/13/20 02:20: WBC 4.30 D, Hgb 11.3 L, Hct 32.9 L, Plt Count 186 D 11/13/20 02:20: Sodium 126 L, Potassium 4.3, BUN 27 H, Creatinine 1.59 H, Glucose 128 H, Magnesium 1.6 L, Total Bilirubin 0.5, AST 32, ALT 42, Alkaline Phosphatase 87 <Clarence Bridges - Last Filed: 11/13/20 03:20> Assessment and Plan - Problems (Diagnosis) (1) Chronic alcoholism Status: Chronic (2) Chronic kidney disease, stage 3 Status: Chronic Qualifiers: Chronic kidney disease stage 3 subtype: stage 3b (GFR 30-44) Qualified Code(s): N18.32 - Chronic kidney disease, stage 3b (3) Chronic obstructive pulmonary disease with acute exacerbation Status: Acute (4) Chronic systolic CHF (congestive heart failure) Onset Date: 10/13/17 Status: Acute (5) Hypomagnesemia Status: Acute (6) Hyponatremia Status: Chronic (7) HTN (hypertension) Onset Date: 11/24/17 Status: Chronic Qualifiers: Hypertension type: essential hypertension - Plan 1. Patient admitted to telemetry floor for cardiac monitoring with repeat V/S checks 2. Patient will continue breathing treatments and steroids for COPD exacerbation. Will be on NC 2lpm and will escalate as needed 3. Patient will be given lasix 20mg BID for volume overload 4. Will be on magnesium replacement protocol 5. Will monitor glucose as needed 6. Low sodium diet 7. Will trend CBC, BMP, and BNP for stability and improvement Discharge Plan: Home Plan to discharge in: 24 Hours - Advance Directives Does patient have a Living Will: Yes Does patient have a Durable POA for Healthcare: Yes - Code Status/Comfort Care Code Status Assessed: No Critical Care: No Time Spent Managing Pts Care (In Minutes): 70 <Clarence Bridges - Last Filed: 11/13/20 03:20> Date of Service: 11/13/20 Chart has been reviewed. Events noted. I agree with plan of care as mentioned above. Anticipate discharge home later today if patient continues to improve. <Parveen Crabtree - Last Filed: 12/02/20 02:22>
[2020-11-13] MEDS ORDERED: Magnesium Sulfate 2gm IVPB 2 G/50 ML BAG IV ONE (03:53)
[2020-11-13 04:36] LABS: SARS-COV-2 RT PCR NEGATIVE (NEGATIVE)
[2020-11-13] MEDS ORDERED: ACETAMINOPHEN 500 MG TAB PO PRN (05:04)
[2020-11-13] MEDS ORDERED: ONDANSETRON 4 MG/2 ML VIAL IV PRN (05:04)
[2020-11-13] MEDS ORDERED: IPRATROPIUM BROM 0.5MG/2.5ML NEB PRN (05:04)
[2020-11-13] MEDS ORDERED: ALBUTEROL 2.5 MG/3 ML NEB SOL NEB PRN (05:04)
[2020-11-13 05:18] VITALS: BMI 23.1
--- NOTE | 2020-11-13 05:35 | EKG ---
Test Date: 2020-11-13 Test Time: 02:50:12 Tig Welder: RR MEASUREMENT RESULTS: Intervals: Rate: 63 WA: 72 QRSD: 158 QT: 442 QTc: 452 Douglas: P: WA: 72 QRS: 102 T: -50 INTERPRETIVE STATEMENTS: Demand pacemaker, interpretation is based on intrinsic rhythm Marked sinus bradycardia with short WA with premature ventricular complexes or fusion complexes Right bundle branch block Anteroseptal infarct, age undetermined T wave abnormality, consider inferior ischemia Abnormal ECG Compared to ECG 11/08/2020 16:10:41 Fusion complex(es) now present Short WA interval now present Right bundle-branch block now present Myocardial infarct finding now present T-wave abnormality now present Possible ischemia now present Electronically Signed On 11-13-20 05:35:12 SPINNER IRON by Max Pro
--- NOTE | 2020-11-13 07:42 | RAD REPORT ---
EXAM DESCRIPTION: RAD - Chest Single View - 11/13/2020 2:28 am CLINICAL HISTORY: COPD;Cough COMPARISON: Portable November 09, portable November 08 TECHNIQUE: AP portable chest image was obtained 11/13/2020 2:28 am . FINDINGS: Defibrillator is in place. No new tube or line seen. Cardiomegaly and vascular engorgement are still present. Diffusely prominent interstitial pattern see n. Right base airspace opacification has improved slightly. Trachea is midline. Small pleural effusio ns are seen. No pneumothorax. No acute bony abnormality seen. No acute aortic findings suspected. IMPRESSION: Moderate severity CHF/ volume overload pattern only slightly improved from November 09 i
[2020-11-13] MEDS: FUROSEMIDE 20 MG/ 2ML VIAL IV SCH ×2 (09:16→17:32)
[2020-11-13] MEDS: METHYLPREDNISOLONE 40 MG INJ IV SCH ×2 (09:16→17:32)
--- NOTE | 2020-11-13 09:56 | P.DS ---
Discharge Date: 11/13/20 Primary Care Provider: David Disposition: DC HOME/HOME HEALTH CARE Discharge Condition: GOOD Reason for Admission: COPD Exacerbation, CHF exacerbation Brief History of Present Illness: This is a 80 y/o M with history of COPD, Alcoholism, CVA, NIDDM, and CHF that presented to ED via EMS after having continued worsening of shortness of breath that started 2 days ago but at approximately 23:00 hours tonight became much worse. Patient stated that he tried to utilize his home nebulizers but was not working. EMS gave solu-medrol 125mg and KAMAR x1 in route to hospital. Patient worked up in ED and found to have a sodium of 126, potassium of 4.3, chloride of 90, bicarb of 25, BUN of 27, Creatinine of 1.59, and glucose of 128. Patient had H/H of 11.3 and 32.9 respectively with a WBC of 4.3 and platelet of 186. Mg++ was 1.6. BNP 9408, and troponin of 0.03. CXR shows CHF with COPD changes consistent with previous imaging. Patient given lasix and more breathing treatments in ED with mild improvement. Medicine consulted at that time for further evaluation and admission for observation. Hospital Course: Patient's respiratory status has improved. Patient clinically is doing well and they will for discharge home with outpatient follow up. Continue with nebs, steroids and antibiotics. Outpatient follow with pulmonary. Vital Signs/Physical Exam: Temp Pulse Resp BP Pulse Ox 97.4 F 61 18 158/85 H 98 11/13/20 09:00 11/13/20 09:00 11/13/20 09:00 11/13/20 09:00 11/13/20 09:00 General: Alert, In no apparent distress, Oriented x3 Laboratory Data at Discharge: WBC 4.30 K/uL (4.3-10.9) D 11/13/20 02:20 Hgb 11.3 g/dL (13.6-17.9) L 11/13/20 02:20 Hct 32.9 % (39.6-49.0) L 11/13/20 02:20 Plt Count 186 K/uL (152-406) D 11/13/20 02:20 PT 12.5 SECONDS (9.5-12.5) 11/13/20 02:20 INR 1.09 11/13/20 02:20 Sodium 126 mmol/L (136-145) L 11/13/20 02:20 Potassium 4.3 mmol/L (3.5-5.1) 11/13/20 02:20 BUN 27 mg/dL (7-18) H 11/13/20 02:20 Creatinine 1.59 mg/dL (0.55-1.3) H 11/13/20 02:20 Glucose 128 mg/dL (74-106) H 11/13/20 02:20 Magnesium 1.6 mg/dL (1.8-2.4) L 11/13/20 02:20 Total Bilirubin 0.5 mg/dL (0.2-1.0) 11/13/20 02:20 AST 32 U/L (15-37) 11/13/20 02:20 ALT 42 U/L (12-78) 11/13/20 02:20 Alkaline Phosphatase 87 U/L (45-117) 11/13/20 02:20 Troponin I 0.02 ng/mL (0.0-0.045) 11/13/20 06:05 Home Medications: Albuterol Sulfate [Ventolin Hfa] 18 IN BID 11/13/20 Furosemide 20 mg PO BID 11/13/20 Metoprolol Succinate [Toprol Xl*] 50 mg PO BID* 11/13/20 Potassium Chloride [Micro-K] 10 meq PO M,W,F 11/13/20 Primidone 250 mg PO QID 11/13/20 Sacubitril/Valsartan [Entresto 97 mg-103 mg Tablet] 1 each PO BID 11/13/20 predniSONE [Prednisone*] 20 mg PO BID #15 tab 11/13/20 New Medications: predniSONE [Prednisone*] 20 mg PO BID #15 tab Physician Discharge Instructions: OK TO DC IV AND DC HOME FOLLOW-UP WITH PRIMARY CARE PROVIDER IN 1-2 WEEKS FOLLOW-UP WITH Pulmonary IN 1-2 WEEKS RETURN TO THE ER IF symptoms worsen CALL or TEXT DR. GR AT [phone] IF ANY QUESTIONS REGARDING HOSPITAL STAY. PLEASE CALL THE FLOOR AT [phone] IF ANY MEDICATION OR NURSING QUESTIONS. Diet: Low sodium Activity: Fall precautions Followup: Unknown,U [Primary Care Provider] - Time spent managing pt's care (in minutes): 35
[2020-11-13] MEDS ORDERED: PNEUMOCOCCAL VACCINE 0.5 ML IMVAC ONE (10:00)
[2020-11-13 11:47] LABS: Potassium 4.4 mmol/L (3.5-5.1)
[2020-11-13 12:35] LABS: Absolute Lymphocytes (CBC) 0.2 K/uL (0.7-4.9); Basophils % 0.3 % (0-1.3); Hematocrit 34.4 % (39.6-49.0); MPV 9.3 fL (7.6-11.3); RBC Red Blood Cell Count 3.73 M/uL (4.33-5.43)
[2020-11-13 16:14] VITALS: BP 150/85; TEMP 98
[2020-11-13 18:15] VITALS: O2SAT 94
== END 2020-11-13 18:33 | disposition home health service (06) ==
LOC: ER 01:18 → ERHOLD 04:59 → 4TH 08:25
PROVIDERS: ADMIT Hospitalist; ATTEND Hospitalist
DX: I13.0 Hypertensive heart and chronic kidney disease with heart failure and stage 1 through stage 4 chronic kidney disease, or unspecified chronic kidney disease (principal); N18.32 Chronic kidney disease, stage 3b; I50.22 Chronic systolic (congestive) heart failure; J44.1 Chronic obstructive pulmonary disease with (acute) exacerbation; F10.20 Alcohol dependence, uncomplicated; E78.5 Hyperlipidemia, unspecified; F32.9 Major depressive disorder, single episode, unspecified; H26.9 Unspecified cataract; I34.0 Nonrheumatic mitral (valve) insufficiency; G20 Parkinson's disease; E87.1 Hypo-osmolality and hyponatremia; E83.42 Hypomagnesemia; Z20.822 Contact with and (suspected) exposure to COVID-19; Z95.810 Presence of automatic (implantable) cardiac defibrillator; Z86.73 Personal history of transient ischemic attack (TIA), and cerebral infarction without residual deficits; Z85.89 Personal history of malignant neoplasm of other organs and systems; Z82.49 Family history of ischemic heart disease and other diseases of the circulatory system; Z80.9 Family history of malignant neoplasm, unspecified
CPT/HCPCS: 93005; 87040 ×2; 85025 ×2; 80048 ×2; 36415; 83735; 85610; 80076; 83605; 84484 ×2; 83880 ×2; 0240U; 71045; 99285; J1940 ×3; J3475; J2930; J2920 ×2; G0378 ×2

== ENCOUNTER 2020-12-04 03:08 | Inpatient (IN) | payer OTHER ==
--- OUTSIDE RECORDS SUMMARY | 2020-12-04 03:11 | XMS REPORT | Continuity of Care Document ---
:1940 Author Organization [facility] t Address [address] [place] [address] Care Team Providers Name Role Phone Eryn [...] DA Active U 2018- [facility] 10-04 [facility] 00:00: [address] No Known DA Active U [facility] 05-20 [facility] 00:00: [address] Medications This patient has no known medications. Procedures This patient has no known procedures. Encounters Start End Encounter Admission Attending Care Care Encounter Source Date/Time Date/Time Type Type Clinicians Facility Department ID 2020-06-05 2020-06-05 Transition Mary Kay Cerna [id number] 00:00:00 00:00:00 of Care Cody Stover [id number] Clarisa [id number] 2020-05-29 2020-06-04 [facility] [id number] 18:50:00 17:57:00 Encounter Arben Julien [id number] Ling [id number] [place]rett [id number] Results This patient has no known results.
[2020-12-04] MEDS ORDERED: LEVALBUTEROL 1.25 MG/3 ML NEB ONE (03:43)
[2020-12-04] MEDS ORDERED: IPRATROPIUM BROM 0.5MG/2.5ML ONE ×3 (03:43→15:40)
[2020-12-04] MEDS ORDERED: FUROSEMIDE 40 MG/4 ML VIAL ONE (03:43)
[2020-12-04] MEDS ORDERED: PIPER/TAZO/NS 3.375gm 3.375 GM/100 ML BAG ONE (03:52)
[2020-12-04] MEDS ORDERED: FAMOTIDINE 20 MG/2 ML VIAL IV ONE (03:52)
[2020-12-04] MEDS ORDERED: dexAMETHasone 10 MG/ML VIAL ONE (03:52)
[2020-12-04 03:56] LABS: Arterial Blood Carboxyhemoglob 1.4 % (0-1.5); Blood Gas Oxyhemoglobin 97.2 % (94-97); Blood O2 Saturation 99.5 % (92-98.5)
[2020-12-04 04:03] LABS: Absolute Lymphocytes (CBC) 0.7 K/uL (0.7-4.9); Hematocrit 33.3 % (39.6-49.0); Lymphocytes % 22.2 % (15.3-44.8); MPV 8.9 fL (7.6-11.3); Protime INR 1.07; RBC Red Blood Cell Count 3.53 M/uL (4.33-5.43)
[2020-12-04 04:28] LABS: ALT/SGPT 25 U/L (12-78); AST/SGOT 25 U/L (15-37); Albumin 3.3 g/dL (3.4-5.0); BUN Blood Urea Nitrogen 19 mg/dL (7-18); Bicarbonate 27 mmol/L (21-32); Bilirubin Direct 0.1 mg/dL (0-0.2); Bilirubin Total 0.4 mg/dL (0.2-1.0); Glucose Level 107 mg/dL (74-106); Magnesium 1.5 mg/dL (1.8-2.4); NT PRO-BNP 8467 pg/mL (<450); Potassium 3.4 mmol/L (3.5-5.1); Protein, Total 6.5 g/dL (6.4-8.2); Sodium Level 128 mmol/L (136-145); Troponin (Emerg Dept Use Only) 0.04 ng/mL (0.0-0.045)
[2020-12-04 04:32] LABS: Alkaline Phosphatase ND U/L (45-117)
--- NOTE | 2020-12-04 04:45 | ER ---
Nurse's Notes [facility] Name: Jimbo Cat Age: 80 yrs Sex: Male : 1940 Arrival Date: 12/04/2020 Time: 03:09 Bed 8 Private MD: Diagnosis: Dyspnea;Chronic obstructive pulmonary disease with (acute) exacerbation;Unspecified combined systolic (congestive) and diastolic (congestive) heart failure;Hypokalemia;Unspecified kidney failure-insufficency;Anemia, unspecified;Hypomagnesemia Presentation: 12/04 03:10 Chief complaint: EMS states: PATIENT IS HAVING SOB ALL DAY. WITH HISTORY OF COPD AND rv CHF, WAS SEEN ON THE Oct, PUT ON STEROIDS. GIVEN 3:1 BREATHING TREATMENT, 125 SOLU-MEDROL, AND NS BOLUS EN ROUTE TO ER. Coronavirus screen: Client denies travel out of the [place] in the last 14 days. congestion, cough unrelated to allergies, difficulty breathing, shortness of breath. Coronavirus screen: Client presents with at least one sign or symptom that may indicate coronavirus-19. Standard/surgical mask placed on the client. Provider contacted for isolation considerations. Ebola Screen: No symptoms or risks identified at this time. Initial Sepsis Screen: Does the patient meet any 2 criteria? RR > 20 per min. Yes Does the patient have a suspected source of infection? Yes: Productive cough/pneumonia. Risk Assessment: Do you want to hurt yourself or someone else? Patient reports no desire to harm self or others. Onset of symptoms was December 03, 2020. 03:10 Method Of Arrival: EMS: [facility] rv 03:10 Acuity: SYDNIE 3 rv Triage Assessment: 03:15 General: Appears ill, Behavior is calm, cooperative. Pain: Denies pain. Neuro: Level of rv Consciousness is awake, alert, obeys commands, Oriented to person, place, time, situation. Cardiovascular: Patient's skin is warm and dry. Rhythm is sinus rhythm. Respiratory: Reports shortness of breath at rest Breath sounds with wheezes bilaterally. Onset: The symptoms/episode began/occurred today, the patient has moderate shortness of breath. Derm: Skin is intact. Historical: - Allergies: 03:14 No Known Allergies; rv - PMHx: 03:14 Alcoholism; COPD; CVA; Diabetes; HEART FAILURE; Hypertension; possible dementia; rv - Immunization history:: Adult Immunizations up to date. - Social history:: Smoking status: Patient/guardian denies using tobacco, the patient reports quitting approximately 40 years ago. - Family history:: not pertinent. Screenin:14 Abuse screen: Denies threats or abuse. Denies injuries from another. Nutritional rv screening: No deficits noted. Tuberculosis screening: No symptoms or risk factors identified. Fall Risk None identified. Assessment: 03:16 Respiratory: Airway is patent Respiratory effort is labored. rv Vital Signs: 03:00 BP 159 / 89; Pulse 60; Resp 15; Pulse Ox 100% on 10% Nebulizer Mask; rv 03:10 BP 156 / 93; Pulse 63; Resp 22; Temp 97.5; Pulse Ox 100% on 10% Nebulizer Mask; Weight rv 67.13 kg; Height 5 ft. 7 in. (170.18 cm); Pain 0/10; 04:00 BP 143 / 74; Pulse 63; Resp 14; Pulse Ox 100% on 40% BiPAP; rv 05:00 BP 144 / 75; Pulse 60; Resp 14; Pulse Ox 100% on 40% BiPAP; rv 03:10 Body Mass Index 23.18 (67.13 kg, 170.18 cm) rv ED Course: 03:09 Patient arrived in ED. cl3 03:10 Fabian Adan RN is Primary Nurse. rv 03:14 Triage completed. rv 03:14 Arm band placed on right wrist. Patient placed in the treatment room, on a stretcher, rv Patient notified of wait time. 03:15 Patient has correct armband on for positive identification. reaming press operator on. Pulse rv ox on. NIBP on. 03:15 Maintain EMS IV. Dressing intact. Good blood return noted. Site clean \T\ dry. Gauge \T\ rv site: G18 RAC. 03:16 Terry Sanderson MD is Attending Physician. lubna 03:30 Inserted saline lock: 20 gauge in left antecubital area, using aseptic technique. Blood rv collected. by SAHRA REGALADO. 03:43 XRAY Chest (1 view) In Process Unspecified. EDMS 04:41 Richard Dent MD is Hospitalizing Provider. lubna 05:31 No provider procedures requiring assistance completed. IV is patent, with fluids rv infusing freely, Patient admitted, IV remains in place. 07:14 Primary Nurse role handed off by Fabian Adan RN sv Administered Medications: 03:33 Drug: Xopenex 3.75 mg Route: Inhalation; rv 04:57 Follow up: Response: Wheezing diminished rv 03:33 Drug: Lasix 40 mg Route: IVP; Site: right antecubital; rv 04:58 Follow up: Response: No adverse reaction rv 03:33 Drug: AtroVENT Aerosol 0.5 mg Route: Inhalation; rv 04:58 Follow up: Response: Wheezing diminished rv 03:50 Drug: Pepcid 20 mg Route: IVP; Site: right antecubital; rv 04:58 Follow up: Response: No adverse reaction rv 03:57 Drug: Decadron - Dexamethasone 8 mg Route: IVP; Site: right antecubital; rv 04:54 Follow up: Response: No adverse reaction rv 04:08 Drug: Zosyn 3.375 grams Route: IVPB; Infused Over: 60 mins; Site: left antecubital; rv 04:58 Follow up: IV Status: Completed infusion; IV Intake: 100ml rv 04:53 Drug: Magnesium Sulfate 2 grams Route: IVPB; Infused Over: 2 hrs; Site: right rv antecubital; 05:29 Follow up: IV Status: Completed infusion; IV Intake: 50ml rv 04:54 Drug: Potassium Chloride 20 mEq Route: IV; Rate: per protocol; Site: left antecubital; rv 05:29 Follow up: IV Status: Infusion continued upon admission rv 07:47 Follow up: Response: No adverse reaction; IV Status: Completed infusion; IV Intake: sv 100ml 05:29 Drug: Thiamine 100 mg Route: IV; Rate: bolus; Site: right antecubital; rv 05:29 Follow up: Response: No adverse reaction rv 05:30 Follow up: IV Status: Completed infusion rv Intake: 04:58 IV: 100ml; Total: 100ml. rv 05:29 IV: 50ml; Total: 150ml. rv 07:47 IV: 100ml; Total: 250ml. sv Outcome: 04:45 Decision to Hospitalize by Provider. lubna 05:31 Admitted to ER Hold. Please see [facility] for further documentation. rv 05:31 Condition: good 05:31 Instructed on the need for admit. 15:34 Patient left the ED. ss Signatures: Dispatcher [employer] EDRey Beckwithhanie, Terry Junior RN, MD MD cha Smirch, Shelby, RN RN ss Fabian Adan RN RN Rey Fall cl3
--- NOTE | 2020-12-04 04:45 | EDPHYS ---
Physician Documentation [facility] Name: Jimbo Cat Age: 80 yrs Sex: Male : 1940 Arrival Date: 12/04/2020 Time: 03:09 Bed 8 Private MD: ED Physician Terry Sanderson HPI: 12/04 03:26 This 80 yrs old Male presents to ER via EMS with complaints of Shortness Of lubna Breath. 03:26 The patient has shortness of breath at rest. Onset: The symptoms/episode began/occurred lubna 1 day(s) ago. Duration: The symptoms are continuous, and are steadily getting worse. The patient's shortness of breath is aggravated by coughing, supine position, talking, walking, is alleviated by pursed lip breathing, sitting up, application of supplemental oxygen. Associated signs and symptoms: Pertinent positives: non-productive cough. Severity of symptoms: At their worst the symptoms were moderate in the emergency department the symptoms are unchanged. The patient has experienced similar episodes in the past. Historical: - Allergies: 03:14 No Known Allergies; rv - PMHx: 03:14 Alcoholism; COPD; CVA; Diabetes; HEART FAILURE; Hypertension; possible dementia; rv - Immunization history:: Adult Immunizations up to date. - Social history:: Smoking status: Patient/guardian denies using tobacco, the patient reports quitting approximately 40 years ago. - Family history:: not pertinent. ROS: 03:26 Constitutional: Negative for fever, chills, and weight loss, Eyes: Negative for injury, lubna pain, redness, and discharge, ENT: Negative for injury, pain, and discharge, Neck: Negative for injury, pain, and swelling, Cardiovascular: Negative for chest pain, palpitations, and edema, Abdomen/GI: Negative for abdominal pain, nausea, vomiting, diarrhea, and constipation, Back: Negative for injury and pain, : Negative for injury, bleeding, discharge, and swelling, Skin: Negative for injury, rash, and discoloration, Neuro: Negative for headache, weakness, numbness, tingling, and seizure, Psych: Negative for depression, anxiety, suicide ideation, homicidal ideation, and hallucinations, Allergy/Immunology: Negative for hives, rash, and allergies, Endocrine: Negative for neck swelling, polydipsia, polyuria, polyphagia, and marked weight changes, Hematologic/Lymphatic: Negative for swollen nodes, abnormal bleeding, and unusual bruising. 03:26 Respiratory: Positive for cough, shortness of breath, wheezing, inspiratory, expiratory. 03:26 MS/extremity: Positive for swelling. Exam: 03:26 Constitutional: This is a well developed, well nourished patient who is awake, alert, lubna and in no acute distress. Head/Face: Normocephalic, atraumatic. Eyes: Pupils equal round and reactive to light, extra-ocular motions intact. Lids and lashes normal. Conjunctiva and sclera are non-icteric and not injected. Cornea within normal limits. Periorbital areas with no swelling, redness, or edema. ENT: Nares patent. No nasal discharge, no septal abnormalities noted. Tympanic membranes are normal and external auditory canals are clear. Oropharynx with no redness, swelling, or masses, exudates, or evidence of obstruction, uvula midline. Mucous membranes moist. Neck: Trachea midline, no thyromegaly or masses palpated, and no cervical lymphadenopathy. Supple, full range of motion without nuchal rigidity, or vertebral point tenderness. No Meningismus. Chest/axilla: Normal chest wall appearance and motion. Nontender with no deformity. No lesions are appreciated. Cardiovascular: Regular rate and rhythm with a normal S1 and S2. No gallops, murmurs, or rubs. Normal PMI, no JVD. No pulse deficits. Abdomen/GI: Soft, non-tender, with normal bowel sounds. No distension or tympany. No guarding or rebound. No evidence of tenderness throughout. Back: No spinal tenderness. No costovertebral tenderness. Full range of motion. Male : Normal genitalia with no discharge or lesions. Skin: Warm, dry with normal turgor. Normal color with no rashes, no lesions, and no evidence of cellulitis. MS/ Extremity: Pulses equal, no cyanosis. Neurovascular intact. Full, normal range of motion. Neuro: Awake and alert, GCS 15, oriented to person, place, time, and situation. Cranial nerves II-XII grossly intact. Motor strength 5/5 in all extremities. Sensory grossly intact. Cerebellar exam normal. Normal gait. Psych: Awake, alert, with orientation to person, place and time. Behavior, mood, and affect are within normal limits. 03:26 Respiratory: mild respiratory distress is noted, moderate respiratory distress is noted, Respirations: labored breathing, that is mild, that is moderate, Breath sounds: bronchial sounds, rhonchi, wheezing: inspiratory expiratory Respiratory rate: 22 04:45 ECG was reviewed by the Attending Physician. [facility] Vital Signs: 03:00 BP 159 / 89; Pulse 60; Resp 15; Pulse Ox 100% on 10% Nebulizer Mask; rv 03:10 BP 156 / 93; Pulse 63; Resp 22; Temp 97.5; Pulse Ox 100% on 10% Nebulizer Mask; Weight rv 67.13 kg; Height 5 ft. 7 in. (170.18 cm); Pain 0/10; 04:00 BP 143 / 74; Pulse 63; Resp 14; Pulse Ox 100% on 40% BiPAP; rv 05:00 BP 144 / 75; Pulse 60; Resp 14; Pulse Ox 100% on 40% BiPAP; rv 03:10 Body Mass Index 23.18 (67.13 kg, 170.18 cm) rv MDM: 03:16 Patient medically screened. lubna 03:29 Differential diagnosis: Anemia Anxiety Reaction asthma, CHF exacerbation, Chronic lubna Obstructive Pulmonary Disease Pneumothorax pulmonary edema, Pulmonary Embolism. Antibiotic administration: zosyn. The patient's Wells Deep Vein Thrombosis Score was calculated as follows: Total Score: 0-2 Pts- Low Risk. The patient's pulmonary embolism risk score was calculated as follows: Total Score: 0-2 points. This patient was found to be at low risk for a pulmonary embolism by using the Well's assessment criteria. Immunization status: Pneumococcal vaccine: Influenza vaccine: Data reviewed: vital signs, nurses notes, EMS record, old medical records, lab test result(s), EKG, radiologic studies. Data interpreted: histology assistant: rate is 63 beats/min, rhythm is regular. Test interpretation: by ED physician or midlevel provider: ECG, plain radiologic studies. Counseling: I had a detailed discussion with the patient and/or guardian regarding: the historical points, exam findings, and any diagnostic results supporting the discharge/admit diagnosis, the presence of at least one elevated blood pressure reading (>120/80) during this emergency department visit, lab results, radiology results, the need for further work-up and treatment in the hospital. 12/04 03:25 Order name: Basic Metabolic Panel [facility] 12/04 03:25 Order name: CBC with Diff [facility] 12/04 03:25 Order name: LFT's [facility] 12/04 03:25 Order name: Magnesium [facility] 12/04 03:25 Order name: NT PRO-BNP [facility] 12/04 03:25 Order name: PT-INR; Complete Time: 04:26 [facility] 12/04 03:25 Order name: Troponin (emerg Dept Use Only); Complete Time: 04:37 [facility] 12/04 03:25 Order name: Blood Culture Adult (2) [facility] 12/04 03:25 Order name: COVID-19 : Document "Date of Symptom Onset" if Symptomatic. [facility] 12/04 03:25 Order name: Flu [facility] 12/04 03:27 Order name: Basic Metabolic Panel; Complete Time: 04:37 EDMS 12/04 03:27 Order name: CBC with Automated Diff; Complete Time: 04:08 EDNC 12/04 03:27 Order name: Liver (Hepatic) Function; Complete Time: 04:37 EDMS 12/04 03:27 Order name: Magnesium; Complete Time: 04:37 EDMS 12/04 03:25 Order name: XRAY Chest (1 view) [facility] 12/04 03:25 Order name: BIPAP [facility] 12/04 03:27 Order name: NT PRO-BNP; Complete Time: 04:37 EDMS 12/04 03:43 Order name: ABG; Complete Time: 04:08 [facility] 12/04 03:43 Order name: Procalcitonin; Complete Time: 04:37 [facility] 12/04 05:35 Order name: COVID-19/FLU A+B EDMS 12/04 08:05 Order name: UR SODIUM EDMS 12/04 08:06 Order name: UR POTASSIUM EDMS 12/04 08:06 Order name: Urinalysis EDMS 12/04 08:17 Order name: Glucose, Ancillary Testing EDMS 12/04 08:19 Order name: Urine Microscopic Only EDMS 12/04 08:25 Order name: Osmolality, Urine EDMS 12/04 10:25 Order name: Osmolality, Serum EDMS 12/04 13:29 Order name: Glucose, Ancillary Testing EDMS 12/04 03:25 Order name: EKG; Complete Time: 03:28 [facility] 12/04 03:25 Order name: Cardiac monitoring; Complete Time: 03:35 [facility] 12/04 03:25 Order name: EKG - Nurse/Tech; Complete Time: 03:35 [facility] 12/04 03:25 Order name: IV Saline Lock; Complete Time: :35 [facility] 12/04 03:25 Order name: Labs collected and sent; Complete Time: [facility] 12/04 03:25 Order name: O2 Per Protocol; Complete Time: :35 [facility] 12/04 03:25 Order name: O2 Sat Monitoring; Complete Time: :35 [facility] EC:45 Rate is 62 beats/min. Rhythm is regular. QRS Rector is Normal. MS interval is normal. QRS lubna interval is normal. No Q waves. T waves are Normal. No ST changes noted. Clinical impression: Abnormal EKG without significant change and No evidence of ischemia. Interpreted by me. Reviewed by me. Administered Medications: 03:33 Drug: Xopenex 3.75 mg Route: Inhalation; rv 04:57 Follow up: Response: Wheezing diminished rv 03:33 Drug: Lasix 40 mg Route: IVP; Site: right antecubital; rv 04:58 Follow up: Response: No adverse reaction rv 03:33 Drug: AtroVENT Aerosol 0.5 mg Route: Inhalation; rv 04:58 Follow up: Response: Wheezing diminished rv 03:50 Drug: Pepcid 20 mg Route: IVP; Site: right antecubital; rv 04:58 Follow up: Response: No adverse reaction rv 03:57 Drug: Decadron - Dexamethasone 8 mg Route: IVP; Site: right antecubital; rv 04:54 Follow up: Response: No adverse reaction rv 04:08 Drug: Zosyn 3.375 grams Route: IVPB; Infused Over: 60 mins; Site: left antecubital; rv 04:58 Follow up: IV Status: Completed infusion; IV Intake: 100ml rv 04:53 Drug: Magnesium Sulfate 2 grams Route: IVPB; Infused Over: 2 hrs; Site: right rv antecubital; 05:29 Follow up: IV Status: Completed infusion; IV Intake: 50ml rv 04:54 Drug: Potassium Chloride 20 mEq Route: IV; Rate: per protocol; Site: left antecubital; rv 05:29 Follow up: IV Status: Infusion continued upon admission rv 07:47 Follow up: Response: No adverse reaction; IV Status: Completed infusion; IV Intake: sv 100ml 05:29 Drug: Thiamine 100 mg Route: IV; Rate: bolus; Site: right antecubital; rv 05:29 Follow up: Response: No adverse reaction rv 05:30 Follow up: IV Status: Completed infusion rv Disposition: 12/04/20 04:45 Hospitalization ordered by Richard Dent for Inpatient Admission. Preliminary diagnosis are Dyspnea, Chronic obstructive pulmonary disease with (acute) exacerbation, Unspecified combined systolic (congestive) and diastolic (congestive) heart failure, Hypokalemia, Unspecified kidney failure - insufficency, Anemia, unspecified, Hypomagnesemia. - Bed requested for Telemetry/MedSurg (Inpatient). - Status is Inpatient Admission. ss - Condition is Fair. - Problem is new. - Symptoms have improved. Signatures: Dispatcher [employer] EDMS Terry Sanderson MD MD cha Smirch, Shelby RN RN Shaq Panchal FNP-C SECONDARY EDUCATION PROFESSOR-Cla1 Liz Chery RN RN tl1 Isabel Perez Ronaldo, RN RN rv Verde, Stephanie RN sv Corrections: (The following items were deleted from the chart) 05:03 04:45 Hospitalization Ordered by Richard Dent MD for Inpatient Admission. Preliminary tl1 diagnosis is Dyspnea; Chronic obstructive pulmonary disease with (acute) exacerbation; Unspecified combined systolic (congestive) and diastolic (congestive) heart failure; Hypokalemia; Unspecified kidney failure - insufficency; Anemia, unspecified; Hypomagnesemia. Bed requested for Telemetry/MedSurg (Inpatient). Status is Inpatient Admission. Condition is Fair. Problem is new. Symptoms have improved. [facility] 13:59 05:03 12/04/2020 04:45 Hospitalization Ordered by Richard Dent MD for Inpatient eb Admission. Preliminary diagnosis is Dyspnea; Chronic obstructive pulmonary disease with (acute) exacerbation; Unspecified combined systolic (congestive) and diastolic (congestive) heart failure; Hypokalemia; Unspecified kidney failure - insufficency; Anemia, unspecified; Hypomagnesemia. Bed requested for [facility] ER HOLD. Status is Inpatient Admission. Condition is Fair. Problem is new. Symptoms have improved. tl1 15:34 13:59 12/04/2020 04:45 Hospitalization Ordered by Richard Dent MD for Inpatient ss Admission. Preliminary diagnosis is Dyspnea; Chronic obstructive pulmonary disease with (acute) exacerbation; Unspecified combined systolic (congestive) and diastolic (congestive) heart failure; Hypokalemia; Unspecified kidney failure - insufficency; Anemia, unspecified; Hypomagnesemia. Bed requested for Telemetry/MedSurg (Inpatient). Status is Inpatient Admission. Condition is Fair. Problem is new. Symptoms have improved. eb
--- NOTE | 2020-12-04 05:03 | P.HP ---
Certification for Inpatient Patient admitted to: Observation With expected LOS: <2 Midnights Patient will require the following post-hospital care: None Practitioner: I am a practitioner with admitting privileges, knowledge of patient current condition, hospital course, and medical plan of care. Services: Services provided to patient in accordance with Admission requirements found in Title 42 Section 412.3 of the Code of Federal Regulations <AnsleyShaq - Last Filed: 12/04/20 04:57> Patient History Date of Service: 12/04/20 Primary Care Provider: DR. Hernandez Reason for admission: COPD exacerbation History of Present Illness: 80-year-old male with history of COPD, chronic systolic congestive heart failure, chronic atrial fibrillation with pacemaker, CKD 3, hypertension, hyperlipidemia, diabetes mellitus type 2, history of CVA, chronic hyponatremia presents emergency department for shortness of breath. Patient with multiple admissions in the past couple of months for similar issues reports increasing shortness of breath since yesterday significantly worse last night was transported by EMS to the emergency department given nebs, steroids and placed on BiPAP upon arrival to the emergency department. Lab significant for white blood cell count 3.3 hemoglobin 11.1 hematocrit 33.3 platelets 141 sodium 128, chloride 92 potassium 3.4 creatinine 1.51 GFR 45 which is patient's baseline magnesium 1.5 BNP 8467. Patient with 1+ pitting edema bilateral lower extremities, mild overload pattern on chest x-ray. Patient remain on BiPAP. Patient does not appear septic, will admit for further evaluation and management. 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 - Family History Father -: Heart disease Mother -: Heart disease, Hypertension, Diabetes, Cancer - Social History Smoking Status: Unknown if ever smoked Alcohol use: No CD- Drugs: No Caffeine use: Yes Place of Residence: Home <Shaq Panchal - Last Filed: 12/04/20 04:57> Date of Service: 12/04/20 <Richard Dent - Last Filed: 12/04/20 18:30> Allergies No Known Allergies Allergy (Verified 10/11/20 23:03) Home Medications: Albuterol Sulfate [Ventolin Hfa] 18 inh IN BID 11/13/20 Furosemide 20 mg PO BID 11/13/20 Metoprolol Succinate [Toprol Xl*] 50 mg PO BID* 11/13/20 Potassium Chloride [Micro-K] 10 meq PO M,W,F 11/13/20 Primidone 250 mg PO QID 11/13/20 Sacubitril/Valsartan [Entresto 97 mg-103 mg Tablet] 1 each PO BID 11/13/20 predniSONE [Prednisone*] 20 mg PO BID #15 tab 11/13/20 Review of Systems 10-point ROS is otherwise unremarkable Respiratory: Cough, Shortness of Breath, SOB with Excertion, Sputum, Wheezing <Shaq Panchal - Last Filed: 12/04/20 04:57> Physical Examination - Physical Exam General: Alert, In no apparent distress, Oriented x3 HEENT: Atraumatic, Normocephalic, PERRLA Neck: Supple Respiratory: Crackles/rales, Expiratory wheezes, Other (Tachypnea, dyspnea) Cardiovascular: Edema (1+ pitting edema bilateral lower extremities), Irregular heart rate/rhythm (Paced rhythm rate 80), Systolic murmur (Mitral listening area) Capillary refill: <2 Seconds Gastrointestinal: Normal bowel sounds, No tenderness, No masses, No rebound Musculoskeletal: No contractures, No erythema, No tenderness Integumentary: No significant lesion, No tenderness/swelling, No erythema Neurological: Normal strength at 5/5 x4 extr, Normal tone, Sensation intact - Studies Laboratory Data (last 24 hrs) 12/04/20 03:30: PT 12.3, INR 1.07 12/04/20 03:30: WBC 3.30 L, Hgb 11.1 L, Hct 33.3 L, Plt Count 141 L 12/04/20 03:30: Sodium 128 L, Potassium 3.4 L, BUN 19 H, Creatinine 1.51 H, Glucose 107 H, Magnesium 1.5 L, Total Bilirubin 0.4, AST 25, ALT 25, Alkaline Phosphatase ND <Shaq Panchal - Last Filed: 12/04/20 04:57> - Studies Laboratory Data (last 24 hrs) 12/04/20 03:30: PT 12.3, INR 1.07 12/04/20 03:30: WBC 3.30 L, Hgb 11.1 L, Hct 33.3 L, Plt Count 141 L 12/04/20 03:30: Sodium 128 L, Potassium 3.4 L, BUN 19 H, Creatinine 1.51 H, Glucose 107 H, Magnesium 1.5 L, Total Bilirubin 0.4, AST 25, ALT 25, Alkaline Phosphatase ND <Richard Dent - Last Filed: 12/04/20 18:30> Assessment and Plan - Plan Assessment Dyspnea secondary to Acute on chronic COPD exacerbation Acute on chronic heart failure reduced ejection fraction S/P pacemaker/defibrillator Atrial fibrillation not on chronic anticoagulation therapy Diabetes mellitus type 2 Chronic hyponatremia CKD 3 Hypertension Hyperlipidemia History of CVA Plan Dyspnea secondary to Acute on chronic COPD exacerbation: Continue with scheduled nebs, IV steroids, BiPAP/oxygen as needed. Pulmonology consult in place. Patient multiple admissions recently for similar problem, previously hospitalist team has discussed with possibility for penitentiary placement if there is continued Re admissions for similar issues, patient has been receptive in the past will need to address this again with patient and family. DVT prophylaxis Lovenox 40 mg subcutaneous once daily. Acute on chronic heart failure reduced ejection fraction S/P pacemaker/defibrillator: Mildly overloaded continue with Lasix 20 mg IV b.i.d., daily weights, fluid restriction. Atrial fibrillation not on chronic anticoagulation therapy: Appears stable this time, continue home meds. Diabetes mellitus type 2: A.c. HS Accu-Cheks, sliding scale insulin therapy. Chronic hyponatremia: Fluid restriction, diuresis, urine/serum osmolality, urine electrolytes. CKD 3: Stable. Continue to monitor renal function. Hypertension: Continue home meds Hyperlipidemia: Continue home meds History of CVA: Continue home meds Discharge Plan: Home Plan to discharge in: 24 Hours - Advance Directives Does patient have a Living Will: Yes Does patient have a Durable POA for Healthcare: Yes - Code Status/Comfort Care Code Status Assessed: Yes (Full code) Critical Care: No Time Spent Managing Pts Care (In Minutes): 55 <Shaq Panchal - Last Filed: 12/04/20 04:57> - Plan Plan of care reviewed as noted above by Shaq Panchal Agree, acute on chronic COPD exacerbation, with volume overload / CHF type picture as well steroids, nebs, diuresis pulm consulted - patient with frequent admissions lately per report he was on home hospice - will further discuss with patient and <Richard Dent - Last Filed: 12/04/20 18:30>
[2020-12-04] MEDS ORDERED: Magnesium Sulfate 2gm IVPB 2 G/50 ML BAG IV ONE (05:05)
[2020-12-04] MEDS ORDERED: KCL 20 MEQ/100 mL IVPB 20 MEQ/100 ML BAG IV ONE (05:05)
[2020-12-04] MEDS ORDERED: ONDANSETRON 4 MG/2 ML VIAL IV PRN (05:33)
[2020-12-04] MEDS ORDERED: GLUCAGON 1 MG/VIAL IM PRN (05:33)
[2020-12-04] MEDS ORDERED: ACETAMINOPHEN 500 MG TAB PO PRN (05:33)
[2020-12-04] MEDS ORDERED: D50W 25 GM/50 ML SYRINGE IV PRN (05:33)
[2020-12-04 05:34] LABS: SARS-COV-2 RT PCR NEGATIVE (NEGATIVE)
[2020-12-04] MEDS ORDERED: THIAMINE 200 MG/2 ML INJ ONE (05:40)
[2020-12-04] MEDS ORDERED: NA CHLORIDE 0.9% 100 ML ONE (05:41)
[2020-12-04] MEDS: METOPROLOL XL 50 MG TAB PO SCH ×3 (05:46→18:47)
[2020-12-04] MEDS: INSULIN -REGULAR HUMAN 50 UNIT/0.5 ML ML SQ SCH ×4 (07:30→20:47)
[2020-12-04] MEDS: FUROSEMIDE 40 MG/4 ML VIAL IV SCH ×2 (07:55→16:56)
[2020-12-04 07:56] LABS: Urine Appearance CLEAR; Urine Bilirubin NEGATIVE (NEG); Urine Blood TRACE (NEG); Urine Color YELLOW; Urine Glucose NEGATIVE (NEG); Urine Protein 1+ (NEG); Urine Specific Gravity <=1.005 (1.005-1.030); Urine Urobilinogen 0.2 mg/dL (0.2-1.0); Urine pH 6.5 (5.0-7.0)
[2020-12-04] MEDS ORDERED: ALBUTEROL 2.5 MG/3 ML NEB SOL NEB SCH (08:00)
[2020-12-04 08:06] LABS: Urine Microscopic Reflex ORDER UMIC
[2020-12-04] MEDS ORDERED: ENOXAPARIN 40 MG/0.4 ML SQ ONE (08:17)
[2020-12-04 08:19] LABS: Urine Bacteria NONE SEEN /HPF (NONE SEEN); Urine RBC <5 /HPF (NONE SEEN)
[2020-12-04] MEDS: IPRATROPIUM BROM 0.5MG/2.5ML NEB SCH ×3 (08:20→20:05)
[2020-12-04] MEDS ORDERED: ALBUTEROL 2.5 MG/3 ML NEB SOL ONE ×2 (08:36→15:40)
--- NOTE | 2020-12-04 08:43 | P.CNS ---
Date of Consult: 12/04/20 Reason for Consult: Respiratory failure Primary Care Provider: DR. Hernandez Chief Complaint: Respiratory failure History of Present Illness: Patient is 80 years of age with a history of severe congestive heart failure COPD chronic renal disease multiple problems current admissions admitted with worsening dyspnea was placed on BiPAP is currently doing much better also had some lower extremity edema denies any cough phlegm fever or chills Allergies No Known Allergies Allergy (Verified 10/11/20 23:03) Home Medications: Albuterol Sulfate [Ventolin Hfa] 18 IN BID 11/13/20 Furosemide 20 mg PO BID 11/13/20 Metoprolol Succinate [Toprol Xl*] 50 mg PO BID* 11/13/20 Potassium Chloride [Micro-K] 10 meq PO M,W,F 11/13/20 Primidone 250 mg PO QID 11/13/20 Sacubitril/Valsartan [Entresto 97 mg-103 mg Tablet] 1 each PO BID 11/13/20 predniSONE [Prednisone*] 20 mg PO BID #15 tab 11/13/20 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 Psychosocial/ Personal History: 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 , 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 - Family History Father Medical History: Heart disease Mother Medical History: Heart disease, Hypertension, Diabetes, Cancer - Social History Smoking Status: Unknown if ever smoked Alcohol use: No CD- Drugs: No Caffeine use: Yes Place of Residence: Home Review of Systems General: Weakness Respiratory: Shortness of Breath Cardiovascular: Edema Physical Examination Temp Pulse Resp BP Pulse Ox 97.9 F 62 14 144/75 H 100 12/04/20 07:51 12/04/20 07:51 12/04/20 07:51 12/04/20 07:51 12/04/20 07:51 General: Alert, In no apparent distress, Oriented x3 Respiratory: Crackles/rales (Bilateral) Cardiovascular: Edema Gastrointestinal: Normal bowel sounds, Soft and benign Laboratory Data (last 24 hrs) 12/04/20 03:30: PT 12.3, INR 1.07 12/04/20 03:30: WBC 3.30 L, Hgb 11.1 L, Hct 33.3 L, Plt Count 141 L 12/04/20 03:30: Sodium 128 L, Potassium 3.4 L, BUN 19 H, Creatinine 1.51 H, Glucose 107 H, Magnesium 1.5 L, Total Bilirubin 0.4, AST 25, ALT 25, Alkaline Phosphatase ND - Problems (1) Chronic systolic CHF (congestive heart failure) Onset Date: 10/13/17 Current Visit: No Status: Acute Plan: Patient is 80 years of age has severe congestive heart failure the current admissions addition to multiple other problems including COPD chest x-ray shows cardiomegaly cephalization consistent with heart failure with change him over to nasal cannula aggressive diuresis is going to need more Lasix at home cardiology evaluation patient has chronic renal failure hyponatremia hypokalemia at low-dose spironolactone reduce prednisone to 10 mg twice a day blood gases oxygenation satisfactory respiratory alkalosis BNP is elevated
--- NOTE | 2020-12-04 08:54 | RAD REPORT ---
EXAM DESCRIPTION: RAD - Chest Single View - 12/04/2020 3:43 am CLINICAL HISTORY: COPD;Cough;Dyspnea Chest pain. COMPARISON: Chest Single View dated 11/13/2020; Chest Single View dated 11/09/2020; Chest Single View dated 11/08/2020; Chest Single View dated 10/31/2020 FINDINGS: Portable technique limits examination quality. Moderate bilateral pulmonary opacities are present likely representing pulmonary edema. The heart is moderately enlarged in size. No displaced fractures.The lead pacer/defibrillator device is present. IMPRESSION: Moderate severity CHF versus volume overload pattern.
[2020-12-04] MEDS ORDERED: HOME MED 1 EA UNK (Sacubitril/Valsartan [Entresto 97 Mg-103 Mg Tablet] Tablet) PO SCH (09:00)
[2020-12-04] MEDS ORDERED: METHYLPREDNISOLONE 125 MG INJ IV SCH (09:00)
[2020-12-04] MEDS ORDERED: PNEUMOCOCCAL VACCINE 0.5 ML IMVAC ONE (09:00)
[2020-12-04] MEDS: predniSONE 10 MG TAB PO SCH ×2 (09:00→20:46)
[2020-12-04] MEDS: ENOXAPARIN 40 MG/0.4 ML SQ SCH (09:00)
[2020-12-04] MEDS: SPIRONOLACTONE 25 MG TABLET PO SCH (09:00)
[2020-12-04] MEDS ORDERED: INFLUENZA VACCINE (for 3y+) 0.5 ML DOSE IMVAC ONE (09:00)
[2020-12-04] MEDS ORDERED: ENOXAPARIN 40 MG/0.4 ML SQ SCH (09:00)
[2020-12-04] MEDS ORDERED: predniSONE 10 MG TAB ONE (09:43)
[2020-12-04] MEDS ORDERED: SPIRONOLACTONE 25 MG TABLET ONE (14:04)
[2020-12-04] MEDS: ALBUTEROL 2.5 MG/3 ML NEB SOL NEB PRN ×2 (15:18→20:05)
[2020-12-05 01:23] VITALS: BMI 23.0
[2020-12-05] MEDS: IPRATROPIUM BROM 0.5MG/2.5ML NEB SCH ×2 (02:15→08:12)
[2020-12-05 05:45] LABS: Absolute Lymphocytes (CBC) 0.4 K/uL (0.7-4.9); Basophils % 0.6 % (0-1.3); Hematocrit 31.6 % (39.6-49.0); Lymphocytes % 11.3 % (15.3-44.8); MPV 8.5 fL (7.6-11.3); RBC Red Blood Cell Count 3.38 M/uL (4.33-5.43)
[2020-12-05 05:46] LABS: Alkaline Phosphatase ND U/L (45-117)
[2020-12-05 06:16] LABS: ALT/SGPT 23 U/L (12-78); AST/SGOT 18 U/L (15-37); Albumin 2.9 g/dL (3.4-5.0); BUN Blood Urea Nitrogen 24 mg/dL (7-18); Bicarbonate 29 mmol/L (21-32); Bilirubin Total 0.3 mg/dL (0.2-1.0); Glucose Level 110 mg/dL (74-106); Magnesium 1.7 mg/dL (1.8-2.4); Potassium 3.7 mmol/L (3.5-5.1); Protein, Total 5.8 g/dL (6.4-8.2); Sodium Level 132 mmol/L (136-145)
[2020-12-05] MEDS: METOPROLOL XL 50 MG TAB PO SCH (06:17)
[2020-12-05] MEDS: INSULIN -REGULAR HUMAN 50 UNIT/0.5 ML ML SQ SCH ×2 (07:30→11:30)
--- NOTE | 2020-12-05 07:39 | RAD REPORT ---
EXAM DESCRIPTION: Daniel Single View12/05/2020 6:44 am CLINICAL HISTORY: Hypoxia COMPARISON: December 04 FINDINGS: Bilateral pulmonary opacities have mostly resolved. Heart remains enlarged. Pacemaker lead s in place IMPRESSION: Significant improvement in CHF
[2020-12-05] MEDS ORDERED: MAGNESIUM SULFATE 1 gm IVPB 1 GM/100 ML BAG IV ONE (07:45)
[2020-12-05] MEDS: FUROSEMIDE 40 MG/4 ML VIAL IV SCH (08:05)
[2020-12-05] MEDS: predniSONE 10 MG TAB PO SCH (08:06)
[2020-12-05] MEDS: SPIRONOLACTONE 25 MG TABLET PO SCH (08:06)
[2020-12-05] MEDS: ENOXAPARIN 40 MG/0.4 ML SQ SCH (08:07)
[2020-12-05] MEDS ORDERED: PRIMIDONE 50 MG TAB PO SCH (09:00)
[2020-12-05] MEDS ORDERED: POTASSIUM CL SA 10 MEQ TAB PO ONE (09:00)
[2020-12-05 09:59] VITALS: BP 128/78; TEMP 97
[2020-12-05 10:17] VITALS: O2SAT 95
--- NOTE | 2020-12-06 21:42 | P.DS ---
Admission Date: 12/04/20 Discharge Date: 12/05/20 Primary Care Provider: DR. Hernandez Disposition: DC HOME/HOME HEALTH CARE Discharge Condition: GOOD Reason for Admission: Respiratory failure, CHF exacerbation Consultations: Pulm- Dr. Gonzalez Procedures: CXR (12/04): Moderate bilateral pulmonary opacities are present likely representing pulmonary edema. The heart is moderately enlarged in size. No displaced fractures.The lead pacer/defibrillator device is present. IMPRESSION: Moderate severity CHF versus volume overload pattern. CXR (12/05): Bilateral pulmonary opacities have mostly resolved. Heart remains enlarged. Pacemaker leads in place. IMPRESSION: Significant improvement in CHF Problem List: Dyspnea secondary to Acute on chronic COPD exacerbation Acute on chronic heart failure reduced ejection fraction S/P pacemaker/defibrillator Atrial fibrillation not on chronic anticoagulation therapy Diabetes mellitus type 2 Chronic hyponatremia CKD 3 Hypertension Hyperlipidemia History of CVA Brief History of Present Illness: 80-year-old male with history of COPD, chronic systolic congestive heart failure, chronic atrial fibrillation with pacemaker, CKD 3, hypertension, hyperlipidemia, diabetes mellitus type 2, history of CVA, chronic hyponatremia presents emergency department for shortness of breath. Patient with multiple admissions in the past couple of months for similar issues reports increasing shortness of breath since yesterday significantly worse last night was transported by EMS to the emergency department given nebs, steroids and placed on BiPAP upon arrival to the emergency department. Lab significant for white blood cell count 3.3 hemoglobin 11.1 hematocrit 33.3 platelets 141 sodium 128, chloride 92 potassium 3.4 creatinine 1.51 GFR 45 which is patient's baseline magnesium 1.5 BNP 8467. Patient with 1+ pitting edema bilateral lower extremities, mild overload pattern on chest x-ray. Patient remain on BiPAP. Patient does not appear septic, will admit for further evaluation and management. Hospital Course: Patient was admitted and treated with IV lasix. He responded well and had significant improvement rather quickly. He was breathing comfortably on room air. Pulmonology was consulted and recommended adding spironolactone as well as increasing his lasix on discharge. Patient has been in and out of the hospital multiple times lately. He was given these new prescriptions and advised to follow up with his PCP and Content Strategist in the next 1-2 weeks. I reiterated the importance of allowing the home health agency check on him, as the agency reported he does not allow them to come by as often as they should. Vital Signs/Physical Exam: Physical Exam General: Alert, In no apparent distress, Oriented x3 HEENT: Atraumatic, Normocephalic, PERRLA Neck: Supple Respiratory: clear to auscultation bilaterally, diminished slightly at bases bilaterally CV: Irregular heart rate/rhythm (Paced rhythm rate 80), Systolic murmur Gastrointestinal: Normal bowel sounds, No tenderness, No masses, No rebound Ext: trace edema bilateral lower extremities Neurological: Normal strength at 5/5 x4 extr, Normal tone, Sensation intact Temp Pulse Resp BP Pulse Ox 97.0 F 66 16 128/78 99 12/05/20 08:00 12/05/20 08:05 12/05/20 08:00 12/05/20 08:00 12/05/20 08:00 Laboratory Data at Discharge: WBC 3.50 K/uL (4.3-10.9) L 12/05/20 05:13 Hgb 10.8 g/dL (13.6-17.9) L 12/05/20 05:13 Hct 31.6 % (39.6-49.0) L 12/05/20 05:13 Plt Count 133 K/uL (152-406) L 12/05/20 05:13 PT 12.3 SECONDS (9.5-12.5) 12/04/20 03:30 INR 1.07 12/04/20 03:30 Sodium 132 mmol/L (136-145) L 12/05/20 05:13 Potassium 3.7 mmol/L (3.5-5.1) 12/05/20 05:13 BUN 24 mg/dL (7-18) H 12/05/20 05:13 Creatinine 1.58 mg/dL (0.55-1.3) H 12/05/20 05:13 Glucose 110 mg/dL (74-106) H 12/05/20 05:13 Magnesium 1.7 mg/dL (1.8-2.4) L 12/05/20 05:13 Total Bilirubin 0.3 mg/dL (0.2-1.0) 12/05/20 05:13 AST 18 U/L (15-37) 12/05/20 05:13 ALT 23 U/L (12-78) 12/05/20 05:13 Alkaline Phosphatase ND 12/05/20 05:13 Home Medications: Albuterol Sulfate [Ventolin Hfa] 18 inh IN BID 11/13/20 Metoprolol Succinate [Toprol Xl*] 50 mg PO BID* 11/13/20 Potassium Chloride [Micro-K] 10 meq PO M,W,F 11/13/20 Primidone 250 mg PO QID 11/13/20 Sacubitril/Valsartan [Entresto 97 mg-103 mg Tablet] 1 each PO BID 11/13/20 predniSONE [Prednisone*] 20 mg PO BID #15 tab 11/13/20 Furosemide 40 mg PO BID 30 Days #60 tablet 12/05/20 Spironolactone [Aldactone*] 25 mg PO DAILY 30 Days #30 tab 12/05/20 New Medications: Spironolactone [Aldactone*] 25 mg PO DAILY 30 Days #30 tab Furosemide 40 mg PO BID 30 Days #60 tablet Physician Discharge Instructions: You were found to have acute congestive heart failure with fluid overload. You improved with higher doses of IV lasix (furosemide). You are discharged home with a prescription for higher dose furosemide and a new prescription for spironolactone - which will help keep the fluid off as well. Please check your blood pressure at home to make sure it does not get too low. If you begin to feel dizzy / lightheaded call your doctors office or home health agency. Please allow your home health nurse to check on you. Diet: ADA Activity: Ad brianna Followup: Unknown,U [Primary Care Provider] - Time spent managing pt's care (in minutes): 40
== END 2020-12-05 12:48 | disposition home health service (06) | DRG 291 ==
LOC: ER 03:08 → ERHOLD 04:12 → 2ND 15:20 → OBSVTOIN 18:47
PROVIDERS: ADMIT Hospitalist; ATTEND Hospitalist
PROC: 5A09457 Assistance with Respiratory Ventilation, 24-96 Consecutive Hours, Continuous Positive Airway Pressure (ICD-10-PCS; principal; 2020-12-04)
DX: I13.0 Hypertensive heart and chronic kidney disease with heart failure and stage 1 through stage 4 chronic kidney disease, or unspecified chronic kidney disease (principal); I50.23 Acute on chronic systolic (congestive) heart failure; J44.1 Chronic obstructive pulmonary disease with (acute) exacerbation; E87.1 Hypo-osmolality and hyponatremia; N18.30 Chronic kidney disease, stage 3 unspecified; E11.22 Type 2 diabetes mellitus with diabetic chronic kidney disease; E78.5 Hyperlipidemia, unspecified; E87.6 Hypokalemia; I48.91 Unspecified atrial fibrillation; G20 Parkinson's disease; Z86.73 Personal history of transient ischemic attack (TIA), and cerebral infarction without residual deficits; Z87.891 Personal history of nicotine dependence; Z95.810 Presence of automatic (implantable) cardiac defibrillator; Z90.49 Acquired absence of other specified parts of digestive tract; Z79.52 Long term (current) use of systemic steroids; Z79.899 Other long term (current) drug therapy; Z20.822 Contact with and (suspected) exposure to COVID-19
CPT/HCPCS: 0240U; 36415; 71045; 80048; 80053; 80076; 81003; 81015; 82805; 82947; 83735; 83880; 83930; 83935; 84145; 84439; 84443; 84484; 85025; 85610; 87040; 93005; 94640; 94660; 94760; 99285; G0378; J1100; J1650; J1940; J2543; J3411; J3475; J3480; J7512

== ENCOUNTER 2020-12-09 01:19 | Observation (INO) | payer OTHER ==
--- OUTSIDE RECORDS SUMMARY | 2020-12-09 01:22 | XMS REPORT | Continuity of Care Document ---
:1940 Author Organization [facility] t Address [address] [place] [address] Care Team Providers Name Role Phone Eryn [...] [facility] 10[facility]04 [facility] 00:00: [address] No Known DA Active U [facility] 05-20 [facility] 00:00: [address] Medications This patient has no known medications. Procedures This patient has no known procedures. Encounters Start End Encounter Admission Attending Care Care Encounter Source Date/Time Date/Time Type Type Clinicians Facility Department ID 2020-06-05 2020-06-05 Transition Mary Kay Cerna [id number] 00:00:00 00:00:00 of Care Cody Stover [id number] Clarisa [id number] 2020-05-29 2020-06-04 [facility] [id number] 18:50:00 17:57:00 Encounter Arben Julien [id number] Ling [id number] [place] [id number] Results This patient has no known results.
[2020-12-09 01:46] LABS: Absolute Lymphocytes (CBC) 0.7 K/uL (0.7-4.9); Basophils % 0.9 % (0-1.3); Hematocrit 31.1 % (39.6-49.0); MPV 8.6 fL (7.6-11.3); RBC Red Blood Cell Count 3.34 M/uL (4.33-5.43)
[2020-12-09 01:50] LABS: Protime INR 1.06
[2020-12-09] MEDS ORDERED: METHYLPREDNISOLONE 125 MG INJ ONE (01:58)
[2020-12-09] MEDS ORDERED: LEVALBUTEROL 1.25 MG/3 ML NEB ONE (01:58)
[2020-12-09 02:06] LABS: Albumin 3.1 g/dL (3.4-5.0); Bilirubin Direct 0.2 mg/dL (0-0.2); Bilirubin Total 0.4 mg/dL (0.2-1.0); CKMB Creatine Kinase MB 1.3 ng/mL (0.3-3.6); Magnesium 1.6 mg/dL (1.8-2.4); Potassium 4.7 mmol/L (3.5-5.1); Protein, Total 6.4 g/dL (6.4-8.2); Troponin (Emerg Dept Use Only) 0.02 ng/mL (0.0-0.045)
[2020-12-09] MEDS ORDERED: AZITHROMYCIN 500 MG INJ IVPB ONE (02:26)
[2020-12-09] MEDS ORDERED: NA CHLORIDE 0.9% 250 ML ONE (02:26)
--- NOTE | 2020-12-09 02:34 | EDPHYS ---
Physician Documentation [facility] Name: Jimbo Cat Age: 80 yrs Sex: Male : 1940 Arrival Date: 12/09/2020 Time: 01:21 Bed 7 Private MD: ED Physician Parveen Reveles HPI: 12/09 02:08 This 80 yrs old Male presents to ER via EMS with complaints of Respiratory ma2 Distress. 02:08 The patient has shortness of breath with light activity. Onset: The symptoms/episode ma2 began/occurred gradually, 1 day(s) ago. Associated signs and symptoms: Pertinent positives: non-productive cough, Pertinent negatives: diaphoresis, fever, loss of consciousness, nausea, numbness in extremities. Severity of symptoms: At their worst the symptoms were moderate in the emergency department the symptoms are unchanged. The patient has experienced similar episodes in the past. Historical: - Allergies: 01:26 No Known Allergies; wh - PMHx: :26 Alcoholism; COPD; CVA; Diabetes; HEART FAILURE; Hypertension; possible dementia; wh - Immunization history:: Adult Immunizations up to date. - Social history:: Smoking status: Patient/guardian denies using Patient/guardian denies using alcohol, street drugs, The patient lives with family. - Family history:: not pertinent. ROS: 02:08 Constitutional: Negative for fever, chills, and weight loss. ma2 02:08 All other systems are negative. Exam: 02:08 Constitutional: This is a well developed, well nourished patient who is awake, alert, ma2 and in no acute distress. Head/Face: Normocephalic, atraumatic. Eyes: Pupils equal round and reactive to light, extra-ocular motions intact. Lids and lashes normal. Conjunctiva and sclera are non-icteric and not injected. Cornea within normal limits. Periorbital areas with no swelling, redness, or edema. Neck: Trachea midline, no thyromegaly or masses palpated, and no cervical lymphadenopathy. Supple, full range of motion without nuchal rigidity, or vertebral point tenderness. No Meningismus. Chest/axilla: Normal chest wall appearance and motion. Nontender with no deformity. No lesions are appreciated. Cardiovascular: Regular rate and rhythm with a normal S1 and S2. No gallops, murmurs, or rubs. Normal PMI, no JVD. No pulse deficits. Abdomen/GI: Soft, non-tender, with normal bowel sounds. No distension or tympany. No guarding or rebound. No evidence of tenderness throughout. Back: No spinal tenderness. No costovertebral tenderness. Full range of motion. Skin: Warm, dry with normal turgor. Normal color with no rashes, no lesions, and no evidence of cellulitis. MS/ Extremity: Pulses equal, no cyanosis. Neurovascular intact. Full, normal range of motion. Neuro: Awake and alert, GCS 15, oriented to person, place, time, and situation. Cranial nerves II-XII grossly intact. Motor strength 5/5 in all extremities. Sensory grossly intact. Cerebellar exam normal. Normal gait. 02:08 Respiratory: moderate respiratory distress is noted, Respirations: labored breathing, Breath sounds: wheezing: expiratory is heard diffusely. Vital Signs: 01:28 BP 149 / 84; Pulse 61; Resp 22; Temp 97.8; Pulse Ox 99% 1 lpm ; Weight 67.13 kg; Height wh 5 ft. 7 in. (170.18 cm); 02:45 BP 136 / 78; Pulse 60; Resp 18; Pulse Ox 100% on 1 lpm NC; wh 01:28 Body Mass Index 23.18 (67.13 kg, 170.18 cm) wh MDM: 01:31 Patient medically screened. ma2 02:08 Differential diagnosis: Anemia Anxiety Reaction asthma, Bronchitis pneumonia, reactive ma2 airway disease. Data reviewed: vital signs, nurses notes, EMS record. Counseling: I had a detailed discussion with the patient and/or guardian regarding: the historical points, exam findings, and any diagnostic results supporting the discharge/admit diagnosis, the presence of at least one elevated blood pressure reading (>120/80) during this emergency department visit, the need for outpatient follow up. 12/09 01:33 Order name: BMP mg2 12/09 01:33 Order name: CBC with Diff mg2 12/09 01:33 Order name: Ckmb mg2 12/09 01:33 Order name: CPK mg2 12/09 01:33 Order name: D-Dimer mg2 12/09 01:33 Order name: Hepatic Function; Complete Time: 02:17 mg2 12/09 01:33 Order name: Lipase; Complete Time: 02:17 mg2 12/09 01:33 Order name: Magnesium; Complete Time: 02:17 [facility] [place] 01:33 Order name: NT PRO-BNP; Complete Time: 02:17 [facility] 12/09 01:33 Order name: PT-INR; Complete Time: 02:17 [facility] 12/09 01:33 Order name: Ptt, Activated; Complete Time: 02:17 [facility] 12/09 01:33 Order name: Troponin (emerg Dept Use Only); Complete Time: 02:17 [facility] 12/09 01:33 Order name: Basic Metabolic Panel; Complete Time: 02:17 EDPR 12/09 01:33 Order name: CBC with Automated Diff; Complete Time: 02:17 EDPR 12/09 01:33 Order name: CKMB Creatine Kinase MB; Complete Time: 02:17 EDPR 12/09 01:33 Order name: Creatine Phosphokinase; Complete Time: 02:17 EDPR 12/09 01:33 Order name: D-Dimer; Complete Time: 02:17 EDPR 12/09 01:35 Order name: CXR XRAY [facility] 12/09 01:35 Order name: Lactate; Complete Time: 02:17 [facility] 12/09 03:26 Order name: Urine Dipstick--Ancillary (enter results) [facility] 12/09 06:13 Order name: Urinalysis [facility] 12/09 06:29 Order name: Troponin I [facility] 12/09 06:33 Order name: UR SODIUM EDPR 12/09 07:02 Order name: Urine Microscopic Only EDPR 12/09 07:06 Order name: Osmolality, Serum EDPR 12/09 07:06 Order name: Osmolality, Urine EDPR 12/09 08:01 Order name: Glucose, Ancillary Testing EDPR 12/09 12:06 Order name: Glucose, Ancillary Testing EDPR 12/09 14:31 Order name: Troponin I EDPR 12/09 16:26 Order name: Glucose, Ancillary Testing EDPR 12/09 01:33 Order name: EKG; Complete Time: 01:34 [facility] 12/09 01:33 Order name: Cardiac monitoring; Complete Time: 01:36 [facility] 12/09 01:33 Order name: EKG - Nurse/Tech; Complete Time: 01:36 [facility] 12/09 01:33 Order name: IV Saline Lock; Complete Time: 01:36 [facility] 12/09 01:33 Order name: Labs collected and sent; Complete Time: 01:36 mg2 12/09 01:33 Order name: O2 Per Protocol; Complete Time: 01:36 mg2 12/09 01:33 Order name: O2 Sat Monitoring; Complete Time: 01:36 mg2 12/09 04:55 Order name: CONS Physician Consult EDMS Administered Medications: 01:52 Drug: SOLU-Medrol 125 mg Route: IVP; Site: right forearm; mg2 02:56 Follow up: Response: No adverse reaction 01:53 Drug: Xopenex 2.5 mg Route: Inhalation; mg2 02:56 Follow up: Response: No adverse reaction; Wheezing diminished wh 02:11 Drug: AZITHromycin 500 mg Route: IVPB; Infused Over: 1 hrs; Site: right forearm; 02:56 Follow up: Response: No adverse reaction; IV Status: Infusion continued upon admission 02:56 Drug: Magnesium Sulfate 2 grams Route: IVPB; Infused Over: 2 hrs; Site: right forearm; 02:56 Follow up: Response: No adverse reaction; IV Status: Infusion continued upon admission 03:14 Drug: NS 0.9% 1000 ml Route: IV; Rate: 125 ml/hr; Site: right forearm; mg2 05:30 Follow up: Response: No adverse reaction; IV Status: Infusion continued upon admission wh 08:30 Follow up: IV Status: Order to discontinue infusion; Order to discontinue infusion, VO tw2 per Lisa d/t pts CHF hx Disposition: 12/09/20 02:33 Hospitalization ordered by Michele Kaur for Observation. Preliminary diagnosis is Chronic obstructive pulmonary disease with (acute) exacerbation. - Bed requested for Telemetry/MedSurg (observation). - Status is Observation. em1 - Condition is Stable. - Problem is new. - Symptoms are unchanged. Signatures: Dispatcher [employer] EDMS Bettina Pratt Eric em1 Lisa Hutchinson, RN RN Yarely Birmingham RN RN Parveen Reveles MD MD md2 Cody Mccabe RN RN mg2 Keisha Wilkinson RN tw2 Corrections: (The following items were deleted from the chart) 02:44 02:33 Hospitalization Ordered by Michele Kaur for Observation. Preliminary diagnosis cg is Chronic obstructive pulmonary disease with (acute) exacerbation. Bed requested for Telemetry/MedSurg (observation). Status is Observation. Condition is Stable. Problem is new. Symptoms are unchanged. ma2 15:36 02:44 12/09/2020 02:33 Hospitalization Ordered by Michele Kaur for Observation. bd Preliminary diagnosis is Chronic obstructive pulmonary disease with (acute) exacerbation. Bed requested for [facility] ER HOLD. Status is Observation. Condition is Stable. Problem is new. Symptoms are unchanged. cg 16:43 15:36 12/09/2020 02:33 Hospitalization Ordered by Michele Kaur for Observation. em1 Preliminary diagnosis is Chronic obstructive pulmonary disease with (acute) exacerbation. Bed requested for Telemetry/MedSurg (observation). Status is Observation. Condition is Stable. Problem is new. Symptoms are unchanged. bd
--- NOTE | 2020-12-09 02:34 | ER ---
Nurse's Notes [facility] Name: Jimbo Cat Age: 80 yrs Sex: Male : 1940 Arrival Date: 12/09/2020 Time: :21 Bed 7 Private MD: Diagnosis: Chronic obstructive pulmonary disease with (acute) exacerbation Presentation: 12/09 01:21 Chief complaint: EMS states: Pt with SOB and dyspnea that started yesterday wh progressively getting worse despite taking inhaler twice. Pt with good O2 sats at room air 99% but with audible wheezing and dyspnea. Coronavirus screen: Client denies travel out of the [place] in the last 14 days. difficulty breathing, shortness of breath, Client presents with at least one sign or symptom that may indicate coronavirus-19. Ebola Screen: Patient negative for fever greater than or equal to 101.5 degrees Fahrenheit, and additional compatible Ebola Virus Disease symptoms Patient denies exposure to infectious person. Risk Assessment: Do you want to hurt yourself or someone else? Patient reports no desire to harm self or others. Onset of symptoms was December 09, 2020. 01:21 Method Of Arrival: EMS: [facility] 01:21 Acuity: SYDNIE 3 01:28 Initial Sepsis Screen: Does the patient meet any 2 criteria? RR > 20 per min. Initial Sepsis Screen: Does the patient have a suspected source of infection? No. Patient's initial sepsis screen is negative. 01:30 Care prior to arrival: Medication(s) given: Albuterol Neb x 2, Atrovent Neb x 1, Solumedrol 125 IV initiated. 20 GA, in the right forearm, Med neb given. Oxygen administered. via nasal cannula. Triage Assessment: : Respiratory: Onset: The symptoms/episode began/occurred yesterday, the patient has mild wh shortness of breath. Historical: - Allergies: : No Known Allergies; - PMHx: Alcoholism; COPD; CVA; Diabetes; HEART FAILURE; Hypertension; possible dementia; wh - Immunization history:: Adult Immunizations up to date. - Social history:: Smoking status: Patient/guardian denies using Patient/guardian denies using alcohol, street drugs, The patient lives with family. - Family history:: not pertinent. Screenin:31 Abuse screen: Denies threats or abuse. Denies injuries from another. Nutritional screening: No deficits noted. Tuberculosis screening: No symptoms or risk factors identified. Fall Risk None identified. Assessment: 01:26 General: Appears in no apparent distress. Behavior is calm, cooperative, appropriate wh for age. Pain: Denies pain. Neuro: Level of Consciousness is awake, alert, obeys commands, Oriented to person, place, time, situation. Cardiovascular: Heart tones S1 S2 Rhythm is regular. Respiratory: Airway is patent Respiratory effort is even, labored, Respiratory pattern is tachypnea Breath sounds with wheezes bilaterally. Respiratory: Reports shortness of breath. GI: Abdomen is flat, non-distended. : No signs and/or symptoms were reported regarding the genitourinary system. EENT: No signs and/or symptoms were reported regarding the EENT system. Derm: Skin is intact, is healthy with good turgor, Skin is pink, warm \T\ dry. normal. Musculoskeletal: Circulation, motion, and sensation intact. 02:57 Reassessment: Patient appears in no apparent distress at this time. No changes from previously documented assessment. Patient and/or family updated on plan of care and expected duration. Pain level reassessed. Patient is alert, oriented x 3, equal unlabored respirations, skin warm/dry/pink. Vital Signs: 01:28 BP 149 / 84; Pulse 61; Resp 22; Temp 97.8; Pulse Ox 99% 1 lpm ; Weight 67.13 kg; Height 5 ft. 7 in. (170.18 cm); 02:45 BP 136 / 78; Pulse 60; Resp 18; Pulse Ox 100% on 1 lpm NC; 01:28 Body Mass Index 23.18 (67.13 kg, 170.18 cm) ED Course: 01:21 Patient arrived in ED. cl3 01:21 Yarely Birmingham, RN is Primary Nurse. 01:25 Triage completed. 01:26 Patient has correct armband on for positive identification. Placed in gown. Bed in low wh position. Call light in reach. Side rails up X 1. automatic drilling machine operator on. Pulse ox on. NIBP on. 01:31 Parveen Reveles MD is Attending Physician. ma2 01:31 Arm band placed on right wrist. wh 01:31 Maintain EMS IV. Dressing intact. Good blood return noted. Site clean \T\ dry. wh 01:36 No provider procedures requiring assistance completed. mg2 02:26 CXR XRAY In Process Unspecified. EDMS 02:33 Michele Kaur is Hospitalizing Provider. ma2 03:00 Patient admitted, IV remains in place. 07:35 Primary Nurse role handed off by Yarely Birmingham RN 08:09 Keisha Wilkinson RN is Primary Nurse. tw2 Administered Medications: 01:52 Drug: SOLU-Medrol 125 mg Route: IVP; Site: right forearm; mg2 02:56 Follow up: Response: No adverse reaction wh 01:53 Drug: Xopenex 2.5 mg Route: Inhalation; mg2 02:56 Follow up: Response: No adverse reaction; Wheezing diminished wh 02:11 Drug: AZITHromycin 500 mg Route: IVPB; Infused Over: 1 hrs; Site: right forearm; 02:56 Follow up: Response: No adverse reaction; IV Status: Infusion continued upon admission 02:56 Drug: Magnesium Sulfate 2 grams Route: IVPB; Infused Over: 2 hrs; Site: right forearm; 02:56 Follow up: Response: No adverse reaction; IV Status: Infusion continued upon admission 03:14 Drug: NS 0.9% 1000 ml Route: IV; Rate: 125 ml/hr; Site: right forearm; mg2 05:30 Follow up: Response: No adverse reaction; IV Status: Infusion continued upon admission wh 08:30 Follow up: IV Status: Order to discontinue infusion; Order to discontinue infusion, VO tw2 per Lisa d/t pts CHF hx Outcome: 02:33 Decision to Hospitalize by Provider. ma2 03:00 Admitted to ER Hold. Please see [facility] for further documentation. 03:00 Condition: stable 03:00 Instructed on the need for admit. 16:43 Patient left the ED. em1 Signatures: Dispatcher [employer] EDCO Bettina Pratt Eric em1 Keisha Wilkinson RN RN tw2 Yarely Birmingham RN RN Parveen Reveles MD MD ma2 Cody Mccabe RN RN [facility] [place] cl3
[2020-12-09] MEDS ORDERED: Magnesium Sulfate 2gm IVPB 2 G/50 ML BAG IV ONE (02:57)
[2020-12-09] MEDS ORDERED: NA CHLORIDE 0.9% 1,000 ML ONE (03:33)
[2020-12-09 03:36] LABS: Urine Blood 1+ (NEG); Urine Glucose NEGATIVE (NEG); Urine Protein 3+ (NEG); Urine Specific Gravity 1.015 (1.005-1.030); Urine pH 6.5 (5.0-7.0)
--- NOTE | 2020-12-09 05:18 | P.HP ---
Certification for Inpatient Patient admitted to: Inpatient With expected LOS: >2 Midnights Patient will require the following post-hospital care: None Practitioner: I am a practitioner with admitting privileges, knowledge of patient current condition, hospital course, and medical plan of care. Services: Services provided to patient in accordance with Admission requirements found in Title 42 Section 412.3 of the Code of Federal Regulations <Fadi Garcia - Last Filed: 12/09/20 05:26> Patient History Date of Service: 12/09/20 Primary Care Provider: Dr. Moreno Reason for admission: CHF exacerbation, COPD exacerbation, hyponatremia History of Present Illness: Mr. Cat is a 80-year-old male with history of COPD, chronic systolic congestive heart failure, chronic atrial fibrillation with pacemaker, CKD 3, hypertension, hyperlipidemia, diabetes mellitus type 2, history of CVA, chronic hyponatremia here today for increased SOB starting 3 days ago. Tonight he woke up and couldn't breathe so he administered a breathing treatment with no relief. He reports SOB, GUERRERO, cough, wheezing, and edema in his feet for the past 4-5 days. He denies fever, N/V/D, hemoptysis, changes in sputum, chest pain, fever. He has had recurrent recent admissions with attempts to have him set up with a SNF or more frequent home health to prevent these admissions. Hgb 10.7. Na 123. Cl 88. BUN 30. Cr 1.5. GFR 45. Mg 1.6. Urine protein 3+, 1+ blood. 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 - Family History Father -: Heart disease Mother -: Heart disease, Hypertension, Diabetes, Cancer - Social History Smoking Status: Former smoker Alcohol use: No CD- Drugs: No Caffeine use: No Place of Residence: Home <Fadi Garcia - Last Filed: 12/09/20 05:26> Date of Service: 12/09/20 <fredy pina - Last Filed: 12/09/20 15:53> Allergies No Known Allergies Allergy (Verified 10/11/20 23:03) Home Medications: Albuterol Sulfate [Ventolin Hfa] 18 inh IN BID 11/13/20 Metoprolol Succinate [Toprol Xl*] 50 mg PO BID* 11/13/20 Potassium Chloride [Micro-K] 10 meq PO M,W,F 11/13/20 Primidone 250 mg PO QID 11/13/20 Sacubitril/Valsartan [Entresto 97 mg-103 mg Tablet] 1 each PO BID 11/13/20 predniSONE [Prednisone*] 20 mg PO BID #15 tab 11/13/20 Furosemide 40 mg PO BID 30 Days #60 tablet 12/05/20 Spironolactone [Aldactone*] 25 mg PO DAILY 30 Days #30 tab 12/05/20 Review of Systems General: Unremarkable Eyes: Unremarkable ENT: Unremarkable Respiratory: Cough, Shortness of Breath, SOB with Excertion, Wheezing, As per HPI Cardiovascular: Edema, As per HPI Gastrointestinal: Unremarkable Genitourinary: Unremarkable Musculoskeletal: Unremarkable Integumentary: Unremarkable Neurological: Unremarkable Lymphatics: Unremarkable <Fadi Garcia - Last Filed: 12/09/20 05:26> Physical Examination - Vital Signs Temperature: 97.8 F Blood Pressure: 149/84 Pulse: 61 Respirations: 22 Pulse Ox (%): 99 - Physical Exam General: Alert, In no apparent distress, Oriented x3, Cooperative HEENT: Atraumatic, Normocephalic, PERRLA, Mucous membr. moist/pink, EOMI, Sclerae nonicteric Neck: Supple, 2+ carotid pulse no bruit, No Thyromegaly, No LAD Respiratory: Diminished, Expiratory wheezes Cardiovascular: Normal pulses, Regular rate/rhythm, Normal S1 S2, No gallops, No rubs, No murmurs, Other (paced), Edema Capillary refill: <2 Seconds Gastrointestinal: Normal bowel sounds, Soft and benign, Non-distended, No ascites, No tenderness, No masses, No rebound, No guarding Musculoskeletal: No clubbing, No swelling, No contractures, No erythema, No tenderness, No warmth Integumentary: No rashes, No breakdown, No significant lesion, No tenderness/swelling, No erythema, No warmth, No cyanosis Neurological: Normal speech, Normal strength at 5/5 x4 extr, Normal tone, Sensation intact, Cranial nerves 3-12 intact, Normal affect Lymphatics: No axilla or inguinal lymphadenopathy - Studies Laboratory Data (last 24 hrs) 12/09/20 03:26: Urine pH 6.5, Ur Specific Cecil 1.015, Glucose (UA)(Auto) Negative, Urine Ketones Negative, Urine Blood 1+ H, Urine Nitrite Negative, Ur Leukocyte Esterase Negative, Urine Total Protein 3+ H 12/09/20 01:25: Lactic Acid 1.1 12/09/20 01:25: PT 12.2, INR 1.06, APTT 33.6, D-Dimer 361 12/09/20 01:25: WBC 4.20 L D, RBC 3.34 L, Hgb 10.7 L, Hct 31.1 L, MCV 93.2, MCH 32.0, MCHC 34.3, RDW 14.4, Plt Count 153, MPV 8.6, Neutrophils % 67.7, Lymphocytes % 16.0, Monocytes % 9.4, Eosinophils % 6.0 H, Basophils % 0.9, Absolute Neutrophils 2.8, Absolute Lymphocytes 0.7, Absolute Monocytes 0.4, Absolute Eosinophils 0.2, Absolute Basophils 0.0 12/09/20 01:25: Sodium 123 L, Potassium 4.7, Chloride 88 L, Carbon Dioxide 26, BUN 30 H, Creatinine 1.50 H, Estimated GFR 45 L, Glucose 100, Calcium 8.3 L, Magnesium 1.6 L, Total Bilirubin 0.4, Direct Bilirubin 0.2, AST 40 H, ALT 36, Alkaline Phosphatase 79, Creatine Kinase 46, CK-MB (CK-2) 1.3, Rapid Troponin I 0.02, NT-Pro-B Natriuret Pep 7721 H, Serum Total Protein 6.4, Albumin 3.1 L, Globulin 3.3, Albumin/Globulin Ratio 0.9 L, Lipase 159 <Fadi Garcia - Last Filed: 12/09/20 05:26> - Studies Laboratory Data (last 24 hrs) 12/09/20 01:25: PT 12.2, INR 1.06, APTT 33.6 12/09/20 01:25: WBC 4.20 L D, Hgb 10.7 L, Hct 31.1 L, Plt Count 153 12/09/20 01:25: Sodium 123 L, Potassium 4.7, BUN 30 H, Creatinine 1.50 H, Glucose 100, Magnesium 1.6 L, Total Bilirubin 0.4, AST 40 H, ALT 36, Alkaline Phosphatase 79, Lipase 159 <fredy pina - Last Filed: 12/09/20 15:53> Assessment and Plan - Problems (Diagnosis) (1) Acute on chronic systolic CHF (congestive heart failure) Onset Date: 11/08/17 Current Visit: No Status: Acute Plan: Lasix 20mg BID and spironolactone 25mg daily. [place]NP of 7721. will check daily weights, fluid restrict. (2) Chronic atrial fibrillation Current Visit: No Status: Acute Plan: stable, with pacemaker. (3) Chronic obstructive pulmonary disease with acute exacerbation Current Visit: No Status: Acute Plan: given IV steroids, breathing treatments, O2 as needed. pulm consulted for further recommendations. (4) HTN (hypertension) Onset Date: 11/24/17 Current Visit: No Status: Chronic Plan: stable, continue with home medications. Qualifiers: Hypertension type: essential hypertension (5) History of CVA (cerebrovascular accident) Onset Date: 11/24/17 Current Visit: No Status: Chronic Plan: stable, continue with home medications. (6) Hyperlipidemia Current Visit: No Status: Chronic Plan: stable, continue with home medications. Qualifiers: Hyperlipidemia type: unspecified Qualified Code(s): E78.5 - Hyperlipidemia, unspecified (7) Hyponatremia Current Visit: No Status: Chronic Plan: Received NS in the ER. will recheck Na levels. has been chronically low. urine sodium, urine osmoles, serum osmoles pending currently. Discharge Plan: Home Plan to discharge in: 48 Hours - Advance Directives Does patient have a Living Will: No Does patient have a Durable POA for Healthcare: No - Code Status/Comfort Care Code Status Assessed: Yes (full code) Critical Care: No Time Spent Managing Pts Care (In Minutes): 70 <Fadi Garcia - Last Filed: 12/09/20 05:26> Physician Review: Patient Assessed, Agree with Above Assessment and Plan Physician Review Additional Text: CHF exacerbation COPD exacerbation. Plan: No IV fluid. Treat with IV Lasix Bronchodilators IV steroids Pulmonary consult. <fredy pina - Last Filed: 12/09/20 15:53>
[2020-12-09] MEDS ORDERED: ALBUTEROL 2.5 MG/3 ML NEB SOL NEB PRN (05:20)
[2020-12-09] MEDS ORDERED: ONDANSETRON 4 MG/2 ML VIAL IV PRN (05:20)
[2020-12-09] MEDS ORDERED: ACETAMINOPHEN 500 MG TAB PO PRN (05:20)
[2020-12-09 05:31] VITALS: BMI 23.1
[2020-12-09] MEDS ORDERED: MORPHINE 4 MG/ML SYR ONE (05:50)
[2020-12-09] MEDS: METHYLPREDNISOLONE 40 MG INJ IV SCH ×2 (05:57→12:00)
[2020-12-09] MEDS ORDERED: METHYLPREDNISOLONE 40 MG INJ ONE ×2 (06:10→12:18)
[2020-12-09 06:12] LABS: Urine Appearance CLEAR; Urine Bilirubin NEGATIVE (NEG); Urine Blood TRACE (NEG); Urine Color YELLOW; Urine Glucose NEGATIVE (NEG); Urine Protein 2+ (NEG); Urine Urobilinogen 0.2 mg/dL (0.2-1.0); Urine pH 6.5 (5.0-7.0)
[2020-12-09 06:13] LABS: Urine Microscopic Reflex ORDER UMIC
--- NOTE | 2020-12-09 06:20 | EKG ---
Test Date: 2020-12-09 Test Time: 00:26:45 Dark Room Attendant: TERRANCE MEASUREMENT RESULTS: Intervals: Rate: 60 IA: 122 QRSD: 154 QT: 464 QTc: 464 [place]: P: IA: 122 QRS: -76 T: 102 INTERPRETIVE STATEMENTS: Electronic ventricular pacemaker Compared to ECG 12/04/2020 03:14:12 Ventricular premature complex(es) no longer present Electronically Signed On 12-09-20 06:19:09 CDT by Max Pro
[2020-12-09 07:01] LABS: Urine Bacteria NONE SEEN /HPF (NONE SEEN); Urine RBC <5 /HPF (NONE SEEN)
[2020-12-09] MEDS: SPIRONOLACTONE 25 MG TABLET PO SCH (07:41)
[2020-12-09] MEDS: HEPARIN 5000 UNIT/ML 1 ML VIAL SQ SCH ×2 (07:42→16:19)
[2020-12-09] MEDS ORDERED: HEPARIN 5000 UNIT/ML 1 ML VIAL ONE ×3 (07:43→16:26)
[2020-12-09] MEDS ORDERED: FUROSEMIDE 20 MG/ 2ML VIAL ONE ×2 (07:43→12:18)
[2020-12-09] MEDS ORDERED: SPIRONOLACTONE 25 MG TABLET ONE (07:48)
--- NOTE | 2020-12-09 07:55 | RAD REPORT ---
EXAM DESCRIPTION: RAD - Chest Single View - 12/09/2020 2:26 am CLINICAL HISTORY: DYSPNEA, worsening over the last 2 days COMPARISON: Portable December 05, December 04 TECHNIQUE: AP portable chest image was obtained 12/09/2020 2:26 am . FINDINGS: Cardiomegaly and vascular engorgement are present. Defibrillator remains in place. No new tube or line. Interstitial and alveolar opacities are present in a pattern slightly worse than the prior December 05 s tudy. Heart and vasculature are normal. No measurable pleural effusion and no pneumothorax. No acute bony abnormality seen. No acute aortic findings suspected. IMPRESSION: Mild CHF/volume overload pattern is present less severe than seen on the December 04 examin [facility].
[2020-12-09] MEDS ORDERED: predniSONE 10 MG TAB PO SCH (09:00)
[2020-12-09] MEDS ORDERED: FUROSEMIDE 40 MG/4 ML VIAL IV SCH (09:00)
[2020-12-09] MEDS ORDERED: FUROSEMIDE 20 MG/ 2ML VIAL IV ONE (09:33)
--- NOTE | 2020-12-09 12:27 | P.CNS ---
Date of Consult: 12/09/20 Primary Care Provider: Dr. Moreno Chief Complaint: CHF exacerbation, COPD exacerbation, hyponatremia History of Present Illness: Patient is 80 years of age with a history of COPD congestive heart failure multiple other medical problems admitted with worsening dyspnea over the past 3 day also reports lower extremity edema he is doing well right now I have is on IV fluids that was stopped denies any fever chills cough sputum or hemoptysis Allergies No Known Allergies Allergy (Verified 10/11/20 23:03) Home Medications: Albuterol Sulfate [Ventolin Hfa] 18 inh IN BID 11/13/20 Metoprolol Succinate [Toprol Xl*] 50 mg PO BID* 11/13/20 Potassium Chloride [Micro-K] 10 meq PO M,W,F 11/13/20 Primidone 250 mg PO QID 11/13/20 Sacubitril/Valsartan [Entresto 97 mg-103 mg Tablet] 1 each PO BID 11/13/20 predniSONE [Prednisone*] 20 mg PO BID #15 tab 11/13/20 Furosemide 40 mg PO BID 30 Days #60 tablet 12/05/20 Spironolactone [Aldactone*] 25 mg PO DAILY 30 Days #30 tab 12/05/20 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 Psychosocial/ Personal History: 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 , 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 - Family History Father Medical History: Heart disease Mother Medical History: Heart disease, Hypertension, Diabetes, Cancer - Social History Smoking Status: Unknown if ever smoked Alcohol use: No CD- Drugs: No Caffeine use: No Place of Residence: Home Review of Systems General: Weakness Respiratory: Shortness of Breath Physical Examination Temp Pulse Resp BP Pulse Ox 97.8 F 65 15 136/79 98 12/09/20 05:35 12/09/20 08:00 12/09/20 08:00 12/09/20 08:00 12/09/20 08:00 General: Alert, In no apparent distress, Oriented x3 Neck: Supple Respiratory: Clear to auscultation bilaterally, Diminished Cardiovascular: No edema, Normal S1 S2 Laboratory Data (last 24 hrs) 12/09/20 01:25: PT 12.2, INR 1.06, APTT 33.6 12/09/20 01:25: WBC 4.20 L D, Hgb 10.7 L, Hct 31.1 L, Plt Count 153 12/09/20 01:25: Sodium 123 L, Potassium 4.7, BUN 30 H, Creatinine 1.50 H, Glucose 100, Magnesium 1.6 L, Total Bilirubin 0.4, AST 40 H, ALT 36, Alkaline Phosphatase 79, Lipase 159 - Problems (1) Acute on chronic systolic CHF (congestive heart failure) Onset Date: 11/08/17 Current Visit: No Status: Acute Plan: Patient is 80 years of age admitted with worsening dyspnea he has severe congestive heart failure in addition to COPD chest x-ray shows cardiomegaly with cephalization he has mild chronic hyponatremia Dc IV fluids for now patient has chronic renal failure vital signs stable medication reviewed change to p.o. prednisone evaluate for possible discharge tomorrow at [facility]
--- NOTE | 2020-12-09 15:58 | P.PN ---
Date of Service: 12/09/20 Patient states he feels better. He is currently saturating well without oxygen. COPD exacerbation CHF exacerbation Hyponatremia Plan: IV lasix IV steroid Bronchodilators Pulmonary input appreciated. Free water restriction Monitor blood chemistry. Possible discharge in a.m.
[2020-12-09] MEDS: FUROSEMIDE 40 MG/4 ML VIAL IV SCH (16:19)
[2020-12-09] MEDS ORDERED: FUROSEMIDE 40 MG/4 ML VIAL ONE ×2 (16:24→16:26)
[2020-12-09] MEDS: ARFORMOTEROL TARTRATE 15 MCG/2 ML VIAL.NEB NEB SCH (19:40)
[2020-12-09] MEDS ORDERED: PRIMIDONE 250 MG TAB PO SCH (21:00)
[2020-12-09] MEDS: predniSONE 20 MG TAB PO SCH (21:36)
[2020-12-09] MEDS ORDERED: PRIMIDONE 50 MG TAB PO SCH (22:00)
[2020-12-10] MEDS: HEPARIN 5000 UNIT/ML 1 ML VIAL SQ SCH ×2 (00:17→10:21)
[2020-12-10 05:46] LABS: Absolute Lymphocytes (CBC) 0.2 K/uL (0.7-4.9); Basophils % 0.2 % (0-1.3); Hematocrit 31.5 % (39.6-49.0); Lymphocytes % 7.5 % (15.3-44.8); MPV 8.5 fL (7.6-11.3)
[2020-12-10 05:53] LABS: Magnesium 1.9 mg/dL (1.8-2.4); Phosphorus 2.6 mg/dL (2.5-4.9)
--- NOTE | 2020-12-10 07:05 | EKG ---
Test Date: 2020-12-09 Test Time: 00:27:29 Thrill Performer: TERRANCE MEASUREMENT RESULTS: Intervals: Rate: 60 [place]: QRSD: 148 QT: 464 QTc: 464 [place]: P: LA: QRS: -75 T: 85 INTERPRETIVE STATEMENTS: Electronic ventricular pacemaker Compared to ECG 12/09/2020 00:26:45 No significant changes Electronically Signed On 12-10-20 07:02:35 CDT by Max Pro
[2020-12-10] MEDS: ARFORMOTEROL TARTRATE 15 MCG/2 ML VIAL.NEB NEB SCH (07:30)
[2020-12-10] MEDS: SPIRONOLACTONE 25 MG TABLET PO SCH (10:19)
[2020-12-10] MEDS: FUROSEMIDE 40 MG/4 ML VIAL IV SCH (10:20)
[2020-12-10] MEDS: predniSONE 20 MG TAB PO SCH (10:20)
[2020-12-10 10:34] VITALS: O2SAT 95
--- NOTE | 2020-12-10 12:33 | P.DS ---
Admission Date: 12/09/20 Discharge Date: 12/10/20 Primary Care Provider: Dr. Moreno Disposition: DC HOME/HOME HEALTH CARE Discharge Condition: FAIR Reason for Admission: CHF exacerbation, COPD exacerbation, hyponatremia Consultations: Pulmonary-Dr. Gonzalez - Problems (1) COPD exacerbation Current Visit: Yes Status: Acute (2) Acute on chronic systolic CHF (congestive heart failure) Onset Date: 11/08/17 Current Visit: No Status: Acute (3) Diabetes mellitus, type II Onset Date: 11/24/17 Current Visit: No Status: Chronic Qualifiers: Diabetes mellitus correction insulin use: with terminal operator use Diabetes mellitus complication status: without complication Qualified Code(s): E11.9 - Type 2 diabetes mellitus without complications; Z79.4 - manager terminal (current) use of insulin Brief History of Present Illness: 80-year-old gentleman with a history of systolic heart failure, COPD, multiple hospitalizations over the past 3 months for shortness of breath presented again to the emergency department with a complaint of increased shortness of breath and wheezing. The patient was noted to be wheezing but his oxygen saturation was around 99% on room air. Chest x-ray showed mild CHF pattern. Patient was hospitalized for further management. Hospital Course: Patient placed under observation on the medical floor and treated with IV Lasix. He was also treated with scheduled bronchodilators and oral prednisone. Patient was seen in consultation by pulmonary-Dr. Gonzalez and he was placed on Brovana. He clinically improved with treatment. The wheezing are resolved today. Patient tolerating room air with good oxygen saturation. He is ambulating with no complain of shortness of breath. He is deemed stable for discharge. Patient is prescribed nebulizers including Brovana. His other medications are resumed on discharge. Vital Signs/Physical Exam: Temp Pulse Resp BP Pulse Ox 98.7 F 63 20 127/71 95 12/10/20 08:00 12/10/20 10:19 12/10/20 08:00 12/10/20 10:19 12/10/20 08:00 General: Alert, In no apparent distress, Oriented x3 HEENT: Mucous membr. moist/pink Neck: Supple, JVD not distended Respiratory: Clear to auscultation bilaterally Cardiovascular: No edema, Regular rate/rhythm, Normal S1 S2 Gastrointestinal: Soft and benign, Non-distended Musculoskeletal: No swelling Integumentary: No rashes Neurological: Normal strength at 5/5 x4 extr, Cranial nerves 3-12 intact Laboratory Data at Discharge: WBC 3.20 K/uL (4.3-10.9) L D 12/10/20 05:07 Hgb 10.9 g/dL (13.6-17.9) L 12/10/20 05:07 Hct 31.5 % (39.6-49.0) L 12/10/20 05:07 Plt Count 134 K/uL (152-406) L 12/10/20 05:07 PT 12.2 SECONDS (9.5-12.5) 12/09/20 01:25 INR 1.06 12/09/20 01:25 APTT 33.6 SECONDS (24.3-36.9) 12/09/20 01:25 Sodium 129 mmol/L (136-145) L 12/10/20 05:07 Potassium 4.0 mmol/L (3.5-5.1) 12/10/20 05:07 BUN 39 mg/dL (7-18) H 12/10/20 05:07 Creatinine 1.51 mg/dL (0.55-1.3) H 12/10/20 05:07 Glucose 151 mg/dL (74-106) H 12/10/20 05:07 Phosphorus 2.6 mg/dL (2.5-4.9) 12/10/20 05:07 Magnesium 1.9 mg/dL (1.8-2.4) 12/10/20 05:07 Total Bilirubin 0.4 mg/dL (0.2-1.0) 12/09/20 01:25 AST 40 U/L (15-37) H 12/09/20 01:25 ALT 36 U/L (12-78) 12/09/20 01:25 Alkaline Phosphatase 79 U/L (45-117) 12/09/20 01:25 Troponin I 0.02 ng/mL (0.0-0.045) 12/09/20 21:40 Lipase 159 U/L (73-393) 12/09/20 01:25 Home Medications: Albuterol Sulfate [Ventolin Hfa] 18 inh IN BID 11/13/20 Potassium Chloride [Micro-K] 10 meq PO M,W,F 11/13/20 Primidone 250 mg PO QID 11/13/20 Sacubitril/Valsartan [Entresto 97 mg-103 mg Tablet] 1 each PO BID 11/13/20 Furosemide 40 mg PO BID 30 Days #60 tablet 12/05/20 Spironolactone [Aldactone*] 25 mg PO DAILY 30 Days #30 tab 12/05/20 Albuterol Neb [Proventil 0.083% Neb Soln] 2.5 mg NEB Q6HP PRN #120 amp 12/10/20 Arformoterol Tartrate [Brovana] 15 mcg NEB BIDRESP #60 vial.neb 12/10/20 predniSONE [Deltasone*] 40 mg PO DAILY #50 tab 12/10/20 New Medications: Albuterol Neb [Proventil 0.083% Neb Soln] 2.5 mg NEB Q6HP PRN #120 amp PRN Reason: Shortness Of Breath Arformoterol Tartrate [Brovana] 15 mcg NEB BIDRESP #60 vial.neb predniSONE [Deltasone*] 40 mg PO DAILY #50 tab Diet: AHA Activity: Fall precautions Followup: Unknown,U [Primary Care Provider] - 1-2 Weeks Everardo Gonzalez MD [ACTIVE - CAN ADMIT] - 1-2 Weeks
[2020-12-10 14:22] VITALS: BP 130/70
[2020-12-10 14:47] VITALS: TEMP 98
[2020-12-10] MEDS ORDERED: PRIMIDONE 250 MG TAB PO SCH (21:00)
[2020-12-10] MEDS ORDERED: PRIMIDONE 50 MG TAB PO SCH (21:00)
== END 2020-12-10 13:41 | disposition home health service (06) ==
LOC: ER 01:19 → ERHOLD 05:02 → INTOOBSV 05:02 → 2ND 16:33
PROVIDERS: ADMIT Internal Medicine; ATTEND Internal Medicine
DX: I13.0 Hypertensive heart and chronic kidney disease with heart failure and stage 1 through stage 4 chronic kidney disease, or unspecified chronic kidney disease (principal); E11.22 Type 2 diabetes mellitus with diabetic chronic kidney disease; I50.23 Acute on chronic systolic (congestive) heart failure; N18.30 Chronic kidney disease, stage 3 unspecified; J44.1 Chronic obstructive pulmonary disease with (acute) exacerbation; I51.7 Cardiomegaly; I48.20 Chronic atrial fibrillation, unspecified; E87.1 Hypo-osmolality and hyponatremia; E78.5 Hyperlipidemia, unspecified; I34.0 Nonrheumatic mitral (valve) insufficiency; G20 Parkinson's disease; F32.9 Major depressive disorder, single episode, unspecified; Z95.0 Presence of cardiac pacemaker; Z86.73 Personal history of transient ischemic attack (TIA), and cerebral infarction without residual deficits; Z85.89 Personal history of malignant neoplasm of other organs and systems; Z87.891 Personal history of nicotine dependence; Z82.49 Family history of ischemic heart disease and other diseases of the circulatory system; Z83.3 Family history of diabetes mellitus; Z80.9 Family history of malignant neoplasm, unspecified
CPT/HCPCS: 93005 ×2; 85025 ×2; 80048 ×2; 36415 ×2; 83735 ×2; 82550; 84100; 85610; 84300; 82947 ×6; 85379; 80076; 83605; 85730; 84484 ×4; 82553; 83690; 83880; 83930; 83935; 71045; 94760 ×4; J1940 ×4; J1644 ×4; J0456; J3475; J7605 ×2; J7050; J7030; J2930; J2920 ×2; 81003; 81015; 96361; 96365; 96375; 99285; G0378; J7512

== ENCOUNTER 2020-12-15 05:25 | Observation (INO) | payer OTHER ==
--- OUTSIDE RECORDS SUMMARY | 2020-12-15 05:28 | XMS REPORT | Continuity of Care Document ---
:1940 Author Organization [facility] t Address [address] [place] [address] Care Team Providers Name Role Phone Eryn [...] DA Active U 2018- [facility] 10-04 [facility] 00:00: [address] No Known DA Active U [facility] 05-20 [facility] 00:00: [address] Medications This patient has no known medications. Procedures This patient has no known procedures. Encounters Start End Encounter Admission Attending Care Care Encounter Source Date/Time Date/Time Type Type Clinicians Facility Department ID 2020-06-05 2020-06-05 Transition Mary Kay Cerna [id number] 00:00:00 00:00:00 of Care Cody Stover [id number] [place] [id number] 2020-05-29 2020-06-04 [facility] [id number] 18:50:00 17:57:00 Encounter Arben Julien [id number] [place] [id number] [place] [id number] Results This patient has no known results.
[2020-12-15 06:16] LABS: Absolute Lymphocytes (CBC) 0.5 K/uL (0.7-4.9); Basophils % 1.3 % (0-1.3); Hematocrit 29.9 % (39.6-49.0); Lymphocytes % 16.6 % (15.3-44.8); MPV 8.1 fL (7.6-11.3); RBC Red Blood Cell Count 3.24 M/uL (4.33-5.43)
[2020-12-15 06:20] LABS: Protime INR 1.03
[2020-12-15 06:55] LABS: Bilirubin Direct 0.1 mg/dL (0-0.2); Bilirubin Total 0.4 mg/dL (0.2-1.0); Magnesium 1.5 mg/dL (1.8-2.4); Potassium 3.9 mmol/L (3.5-5.1); Protein, Total 6.3 g/dL (6.4-8.2); Troponin (Emerg Dept Use Only) 0.03 ng/mL (0.0-0.045)
[2020-12-15 08:09] LABS: Blood Morphology Comment NOT SEEN (NOT SEEN); Platelet Estimate ADEQ; White Blood Cell Scan OK (OK)
--- NOTE | 2020-12-15 08:26 | RAD REPORT ---
EXAM DESCRIPTION: RAD - Chest Single View - 12/15/2020 6:49 am CLINICAL HISTORY: COPD;SOB COMPARISON: December 09 TECHNIQUE: AP portable chest image was obtained 12/15/2020 6:49 am . FINDINGS: No peripheral mass or consolidation identified. Defibrillator remains in place. Mild cardi omegaly present. Vasculature is mildly prominent. The heart size and vascular engorgement is much les s than seen December 09. No measurable pleural effusion and no pneumothorax. No acute bony abnormality seen. No acute aortic findings suspected. IMPRESSION: No peripheral mass or consolidation. Minimal CHF/volume overload suspected. Chest findings are much less prominent than seen December 09.
[2020-12-15 08:33] LABS: Urine Blood TRACE (Negative); Urine Glucose NEGATIVE (Negative); Urine Protein 2+ (NEG); Urine Specific Gravity 1.015 (1.005-1.030)
[2020-12-15] MEDS ORDERED: NA CHLORIDE 0.9% 500 ML ONE (09:48)
[2020-12-15] MEDS ORDERED: MAGNESIUM SULFATE 1 gm IVPB 1 GM/100 ML BAG IV ONE (09:48)
--- NOTE | 2020-12-15 10:26 | P.HP ---
Certification for Inpatient Patient admitted to: Observation With expected LOS: <2 Midnights Practitioner: I am a practitioner with admitting privileges, knowledge of patient current condition, hospital course, and medical plan of care. Services: Services provided to patient in accordance with Admission requirements found in Title 42 Section 412.3 of the Code of Federal Regulations Patient History Date of Service: 12/15/20 Reason for admission: Shortness of breath History of Present Illness: 80-year-old gentleman with a history of COPD, chronic systolic heart failure, chronic atrial fibrillation status post pacemaker, diabetes mellitus type 2, history of hyponatremia presented to the emergency department with a complaint of sudden onset of shortness of breath which occurred last night during sleep. Chest x-ray done in the emergency department is unremarkable. Troponin is negative. Patient was given nebulizer treatment in the ED with significant improvement. He was saturating at 99% on room air during my examination. Notable in his blood work is hyponatremia with a sodium of 124. He has a history of recurrent hyponatremia. Noted patient is on maintenance Lasix therapy. Patient placed under observation for further monitoring and management of the hyponatremia. Allergies No Known Allergies Allergy (Verified 10/11/20 23:03) Home Medications: Albuterol Sulfate [Ventolin Hfa] 18 inh IN BID 11/13/20 Potassium Chloride [Micro-K] 10 meq PO M,W,F 11/13/20 Primidone 250 mg PO QID 11/13/20 Sacubitril/Valsartan [Entresto 97 mg-103 mg Tablet] 1 each PO BID 11/13/20 Furosemide 40 mg PO BID 30 Days #60 tablet 12/05/20 Spironolactone [Aldactone*] 25 mg PO DAILY 30 Days #30 tab 12/05/20 Albuterol Neb [Proventil 0.083% Neb Soln] 2.5 mg NEB Q6HP PRN #120 amp 12/10/20 Arformoterol Tartrate [Brovana] 15 mcg NEB BIDRESP #60 vial.neb 12/10/20 Metoprolol Succinate [Toprol Xl] 25 mg PO DAILY #30 tab 12/10/20 predniSONE [Deltasone*] 40 mg PO DAILY #50 tab 12/10/20 - Past Medical/Surgical History Diabetic: No -: pacemaker/defibrillator 2011 -: Diabetes mellitus-not taking meds/resolved -: HTN -: Hyperlipidemia -: Multiple CVA 5x -: Depression -: MARZENA cataracts -: Moderate mitral regurgitation -: CHF, systolic dysfunction -: Parkinsons -: COPD -: cervical vertebrae surgery x2 -: benign tumor removed from L knee -: appendectomy -: tonsilectomy -: 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 Physical Examination - Physical Exam General: Alert, In no apparent distress, Oriented x3 HEENT: Atraumatic, PERRLA, Mucous membr. moist/pink, EOMI, Sclerae nonicteric Neck: Supple, JVD not distended Respiratory: Clear to auscultation bilaterally, Diminished Cardiovascular: No edema, Regular rate/rhythm, Normal S1 S2, Systolic murmur Gastrointestinal: Normal bowel sounds, Soft and benign, Non-distended, No ascites, No tenderness Musculoskeletal: No clubbing, No swelling Integumentary: No rashes, No erythema Neurological: Normal strength at 5/5 x4 extr, Cranial nerves 3-12 intact - Studies Laboratory Data (last 24 hrs) 12/15/20 05:35: PT 11.9, INR 1.03 12/15/20 05:35: WBC 2.90 L, Hgb 10.7 L, Hct 29.9 L, Plt Count 173 D 12/15/20 05:35: Sodium 124 L, Potassium 3.9, BUN 26 H, Creatinine 1.36 H, Glucose 108 H, Magnesium 1.5 L, Total Bilirubin 0.4, AST 17, ALT 23, Alkaline Phosphatase 60 Assessment and Plan - Problems (Diagnosis) (1) Hyponatremia Current Visit: No Status: Chronic (2) COPD exacerbation Current Visit: No Status: Acute (3) Chronic atrial fibrillation Current Visit: No Status: Acute (4) Chronic systolic CHF (congestive heart failure) Onset Date: 10/13/17 Current Visit: No Status: Acute (5) Chronic kidney disease, stage 3 Current Visit: No Status: Chronic Qualifiers: Chronic kidney disease stage 3 subtype: stage 3b (GFR 30-44) Qualified Code(s): N18.32 - Chronic kidney disease, stage 3b - Plan Place patient under observation. Differential diagnosis for hyponatremia include SIADH from COPD, urine sodium loss from Lasix. Check serum urine osmolality. Restrict free water to 1200 meal per day. Patient is compensated for CHF. Hold Lasix today for sodium level recovery. Monitor BMP. Patient also placed on scheduled albuterol and ipratropium. Continue Arfomoterol. Patient should still be on a tapering dose of oral prednisone. Will place him on prednisone 40 mg daily. PT. - Advance Directives Does patient have a Living Will: No Does patient have a Durable POA for Healthcare: No
--- NOTE | 2020-12-15 10:48 | EDPHYS ---
Physician Documentation [facility] Name: Jimbo Cat Age: 80 yrs Sex: Male : 1940 Arrival Date: 12/15/2020 Time: 05:28 Bed 7 Private MD: ED Physician Parveen Reveles HPI: 12/15 06:02 This 80 yrs old Male presents to ER via EMS with complaints of Shortness Of mh7 Breath. 06:02 The patient has shortness of breath at rest. Onset: The symptoms/episode began/occurred mh7 today, at 02:00. Duration: The symptoms are continuous, but are steadily getting better. The patient's shortness of breath is aggravated by nothing, is alleviated by nebulizer treatment. Associated signs and symptoms: Pertinent negatives: chest pain, non-productive cough, productive cough, diaphoresis, dizziness, fever, hemoptysis, loss of consciousness, nausea, numbness in extremities, visual changes, vomiting. Severity of symptoms: At their worst the symptoms were moderate today, in the emergency department the symptoms have improved moderately. The patient has experienced similar episodes in the past, multiple times. Historical: - Allergies: 05:33 No Known Allergies; lp1 - Home Meds: 05:33 carvedilol Oral [Active]; Eliquis 5 mg Oral tab 1 tab 2 times per day [Active]; Lasix lp1 Oral [Active]; metoprolol tartrate 25 mg Oral tab 1 tab 2 times per day [Active]; Plavix 75 mg Oral tab 1 tab once daily [Active]; Primidone Oral [Active]; Protonix 40 mg Oral TbEC 1 tab once daily [Active]; - PMHx: 05:33 Alcoholism; COPD; CVA; Diabetes; HEART FAILURE; Hypertension; possible dementia; lp1 - PSHx: 05:33 Pacemaker; lp1 - Immunization history:: Adult Immunizations up to date. - Social history:: Smoking status: Patient denies any tobacco usage or history of. ROS: 06:02 Constitutional: Negative for fever, chills, and weight loss, Eyes: Negative for injury, mh7 pain, redness, and discharge, ENT: Negative for injury, pain, and discharge, Neck: Negative for injury, pain, and swelling, Cardiovascular: Negative for chest pain, palpitations, and edema, Abdomen/GI: Negative for abdominal pain, nausea, vomiting, diarrhea, and constipation, Back: Negative for injury and pain, : Negative for injury, bleeding, discharge, and swelling, MS/Extremity: Negative for injury and deformity, Skin: Negative for injury, rash, and discoloration, Neuro: Negative for headache, weakness, numbness, tingling, and seizure, Psych: Negative for depression, anxiety, suicide ideation, homicidal ideation, and hallucinations, Allergy/Immunology: Negative for hives, rash, and allergies, Endocrine: Negative for neck swelling, polydipsia, polyuria, polyphagia, and marked weight changes, Hematologic/Lymphatic: Negative for swollen nodes, abnormal bleeding, and unusual bruising. Exam: 06:02 Constitutional: This is a well developed, well nourished patient who is awake, alert, mh7 and in no acute distress. Head/Face: Normocephalic, atraumatic. Eyes: Pupils equal round and reactive to light, extra-ocular motions intact. Lids and lashes normal. Conjunctiva and sclera are non-icteric and not injected. Cornea within normal limits. Periorbital areas with no swelling, redness, or edema. Neck: Trachea midline, no thyromegaly or masses palpated, and no cervical lymphadenopathy. Supple, full range of motion without nuchal rigidity, or vertebral point tenderness. No Meningismus. Chest/axilla: Normal chest wall appearance and motion. Nontender with no deformity. No lesions are appreciated. Cardiovascular: Regular rate and rhythm with a normal S1 and S2. No gallops, murmurs, or rubs. Normal PMI, no JVD. No pulse deficits. 06:02 Abdomen/GI: Soft, non-tender, with normal bowel sounds. No distension or tympany. No guarding or rebound. No evidence of tenderness throughout. Back: No spinal tenderness. No costovertebral tenderness. Full range of motion. Skin: Warm, dry with normal turgor. Normal color with no rashes, no lesions, and no evidence of cellulitis. MS/ Extremity: Pulses equal, no cyanosis. Neurovascular intact. Full, normal range of motion. Neuro: Awake and alert, GCS 15, oriented to person, place, time, and situation. Cranial nerves II-XII grossly intact. Motor strength 5/5 in all extremities. Sensory grossly intact. Cerebellar exam normal. Normal gait. Psych: Awake, alert, with orientation to person, place and time. Behavior, mood, and affect are within normal limits. 06:02 Respiratory: the patient does not display signs of respiratory distress, Respirations: normal, Breath sounds: rhonchi, that are mild, are scattered, Respiratory rate: 20 Vital Signs: 05:30 BP 136 / 87; Pulse 60; Resp 20; Temp 97.8(O); Pulse Ox 100% on R/A; Weight 67.13 kg lp1 (R); Height 5 ft. 7 in. (170.18 cm); Pain 0/10; 06:00 BP 129 / 85; Pulse 60; Resp 18; Pulse Ox 98% on R/A; sf 06:45 BP 128 / 75; Pulse 61; Resp 19; Pulse Ox 100% on R/A; lp1 07:30 BP 121 / 79; Pulse 60; Resp 16 S; Pulse Ox 100% on R/A; aa5 09:57 BP 126 / 83; Pulse 64; Resp 15; Pulse Ox 97% ; jl7 11:30 BP 128 / 85; Pulse 61; Resp 18 S; Temp 98.4(TE); Pulse Ox 100% on R/A; aa5 05:30 Body Mass Index 23.18 (67.13 kg, 170.18 cm) lp1 MDM: 07:04 Patient medically screened. ma2 10:46 Differential diagnosis: CHF exacerbation, Chronic Obstructive Pulmonary Disease ma2 reactive airway disease, hyponatremia. Antibiotic administration: Not indicated. Data reviewed: vital signs, nurses notes. Counseling: I had a detailed discussion with the patient and/or guardian regarding: the historical points, exam findings, and any diagnostic results supporting the discharge/admit diagnosis, the presence of at least one elevated blood pressure reading (>120/80) during this emergency department visit, the need for further work-up and treatment in the hospital. 12/15 05:51 Order name: Basic Metabolic Panel; Complete Time: 07:32 mh7 12/15 05:51 Order name: CBC with Diff; Complete Time: 08:58 mh7 12/15 05:51 Order name: LFT's; Complete Time: 07:32 mh7 12/15 05:51 Order name: Magnesium; Complete Time: 07:32 mh7 12/15 05:51 Order name: NT PRO-BNP; Complete Time: 07:32 [facility] 12/15 05:51 Order name: PT-INR; Complete Time: 06:47 7 12/15 05:51 Order name: Troponin (emerg Dept Use Only); Complete Time: 07:32 [facility] 12/15 06:23 Order name: CBC Smear Scan; Complete Time: 08:58 [facility] 12/15 08:21 Order name: Urine Dipstick--Ancillary (enter results); Complete Time: 08:58 12/15 11:29 Order name: COVID-19 : Document "Date of Symptom Onset" if Symptomatic. 12/15 11:35 Order name: CORONAVIRUS [facility] 12/15 12:14 Order name: SARS-COV-2 RT PCR [facility] 12/15 05:51 Order name: XRAY Chest (1 view); Complete Time: 08:58 [facility] 12/15 05:51 Order name: EKG; Complete Time: 05:51 12/15 05:51 Order name: Cardiac monitoring; Complete Time: 05:57 12/15 05:51 Order name: EKG - Nurse/Tech; Complete Time: 05:57 12/15 05:51 Order name: IV Saline Lock; Complete Time: 05:57 12/15 05:51 Order name: Labs collected and sent; Complete Time: 05:57 12/15 05:51 Order name: O2 Per Protocol; Complete Time: 05:57 12/15 05:51 Order name: O2 Sat Monitoring; Complete Time: 05:57 12/15 08:06 Order name: Urine Dipstick-Ancillary (obtain specimen); Complete Time: 08:12 aa5 12/15 11:34 Order name: Diet Ada 1800 Nino; Complete Time: 11:35 aa5 Administered Medications: :58 Drug: Magnesium Sulfate 1 grams Route: IVPB; Infused Over: 1 hrs; Site: left sr5 antecubital; 58 Drug: NS 0.9% 500 ml Route: IV; Rate: 50 ml/hr; Site: left antecubital; sr5 Disposition: 12/15/20 10:49 Hospitalization ordered by Michele Kaur for Observation. Preliminary diagnosis are Hypo-osmolality and hyponatremia, Chronic obstructive pulmonary disease, unspecified. - Bed requested for Telemetry/MedSurg (observation). - Status is Observation. aa5 - Condition is Stable. - Problem is new. - Symptoms are unchanged. Signatures: Dispatcher [employer] EDRocio Welsh, RN RN dw Sonia Nair, RN RN aa5 Kenyatta Fletcher, RN RN lp1 Kenny Rebollar RN RN sr5 Parveen Reveles MD MD ma2 Cruz Williamson MD MD mh7 Corrections: (The following items were deleted from the chart) 10:48 10:48 12/15/2020 10:48 Discharged to Home. Impression: Hypo-osmolality and ma2 hyponatremia; Chronic systolic (congestive) heart failure; Chronic obstructive pulmonary disease with (acute) exacerbation. Condition is Stable. Forms are Medication Reconciliation Form, Thank You Letter, Antibiotic Education, Prescription Opioid Use. Follow up: Private Physician; When: Tomorrow; Reason: If symptoms return, Continuance of care. ma2 12:30 10:49 Hospitalization Ordered by Michele Kaur for Observation. Preliminary diagnosis dw is Hypo-osmolality and hyponatremia; Chronic obstructive pulmonary disease, unspecified. Bed requested for Telemetry/MedSurg (observation). Status is Observation. Condition is Stable. Problem is new. Symptoms are unchanged. ma2 12:49 12:30 12/15/2020 10:49 Hospitalization Ordered by Michele Kaur for Observation. aa5 Preliminary diagnosis is Hypo-osmolality and hyponatremia; Chronic obstructive pulmonary disease, unspecified. Bed requested for Telemetry/MedSurg (observation). Status is Observation. Condition is Stable. Problem is new. Symptoms are unchanged. dw
--- NOTE | 2020-12-15 10:48 | ER ---
Nurse's Notes [facility] Name: Jimbo Cat Age: 80 yrs Sex: Male : 1940 Arrival Date: 12/15/2020 Time: 05:28 Bed 7 Private MD: Diagnosis: Hypo-osmolality and hyponatremia;Chronic obstructive pulmonary disease, unspecified Presentation: 12/15 05:30 Chief complaint: EMS states: Called for patient with complaint of shortness of breath lp1 since 0200, gave himself nebulizer treatment at home without relief; Per EMS, patient 98% O2 on RA, no distress; Hx of COPD. Coronavirus screen: Client denies travel out of the [place] in the last 14 days. At this time, the client does not indicate any symptoms associated with coronavirus-19. Ebola Screen: No symptoms or risks identified at this time. Initial Sepsis Screen: Does the patient meet any 2 criteria? No. Patient's initial sepsis screen is negative. Does the patient have a suspected source of infection? No. Patient's initial sepsis screen is negative. Risk Assessment: Do you want to hurt yourself or someone else? Patient reports no desire to harm self or others. Onset of symptoms was December 15, 2020 at 02:00. 05:30 Method Of Arrival: EMS: [facility] lp1 05:30 Acuity: SYDNIE 3 lp1 05:34 Care prior to arrival: IV initiated. 18 GA, in the left antecubital area. lp1 Historical: - Allergies: 05:33 No Known Allergies; lp1 - Home Meds: 05:33 carvedilol Oral [Active]; Eliquis 5 mg Oral tab 1 tab 2 times per day [Active]; Lasix lp1 Oral [Active]; metoprolol tartrate 25 mg Oral tab 1 tab 2 times per day [Active]; Plavix 75 mg Oral tab 1 tab once daily [Active]; Primidone Oral [Active]; Protonix 40 mg Oral TbEC 1 tab once daily [Active]; - PMHx: 05:33 Alcoholism; COPD; CVA; Diabetes; HEART FAILURE; Hypertension; possible dementia; lp1 - PSHx: 05:33 Pacemaker; lp1 - Immunization history:: Adult Immunizations up to date. - Social history:: Smoking status: Patient denies any tobacco usage or history of. Screenin:33 Abuse screen: Denies threats or abuse. Denies injuries from another. Nutritional lp1 screening: No deficits noted. Tuberculosis screening: No symptoms or risk factors identified. Fall Risk Total Johnston Fall Scale indicates High Risk Score (45 or more points). Fall prevention measures have been instituted. Side Rails Up X 2 Frequent Obs/Assessments Occuring As available patient and family educated on Fall Prevention Program and Strategies. Assessment: 05:30 General: Appears in no apparent distress. Behavior is calm, cooperative. Pain: Denies lp1 pain. Neuro: Level of Consciousness is awake, alert, obeys commands, Oriented to person, place, situation. Cardiovascular: Patient's skin is warm and dry. Rhythm is Respiratory: Reports shortness of breath Airway is patent Respiratory effort is even, unlabored, Breath sounds are diminished in left posterior lower lobe and right posterior lower lobe the patient has mild shortness of breath. GI: Abdomen is non-distended. : No signs and/or symptoms were reported regarding the genitourinary system. EENT: No signs and/or symptoms were reported regarding the EENT system. Derm: Skin is intact, Skin is dry, Skin is normal. Musculoskeletal: No deficits noted. 06:30 Reassessment: Patient appears in no apparent distress at this time. No changes from sf previously documented assessment. Patient and/or family updated on plan of care and expected duration. Pain level reassessed. Patient is alert, oriented x 3, equal unlabored respirations, skin warm/dry/pink. 07:30 General: Appears comfortable, Behavior is calm, cooperative. Pain: Denies pain. Neuro: aa5 Level of Consciousness is awake, alert, obeys commands, Oriented to person, place, situation, Clocksmith are equal bilaterally Moves all extremities. Speech is normal, Facial symmetry appears normal, Reports paresthesias in left leg. Cardiovascular: Heart tones S1 S2 present swelling noted to jeana ankles Rhythm is paced. Respiratory: Reports shortness of breath at rest on exertion Pt currently O2 sat 100% RA Airway is patent Respiratory effort is even, unlabored, Respiratory pattern is regular, symmetrical, Breath sounds are clear bilaterally. GI: No signs and/or symptoms were reported involving the gastrointestinal system. : No signs and/or symptoms were reported regarding the genitourinary system. EENT: No signs and/or symptoms were reported regarding the EENT system. Derm: Skin is pink, warm \T\ dry. Musculoskeletal: Range of motion: intact in all extremities. 08:30 Reassessment: Patient is alert, oriented x 3, equal unlabored respirations, skin aa5 warm/dry/pink. 09:55 Reassessment: Patient is alert, oriented x 3, equal unlabored respirations, skin aa5 warm/dry/pink. 11:00 Reassessment: Patient is alert, oriented x 3, equal unlabored respirations, skin aa5 warm/dry/pink. Awaiting COVID-19 result for bed assignment, pt notified of wait time. . 12:18 Reassessment: Patient is alert, oriented x 3, equal unlabored respirations, skin aa5 warm/dry/pink. Pt given food tray. 12:45 Reassessment: Patient is alert, oriented x 3, equal unlabored respirations, skin aa5 warm/dry/pink. Vital Signs: 05:30 BP 136 / 87; Pulse 60; Resp 20; Temp 97.8(O); Pulse Ox 100% on R/A; Weight 67.13 kg lp1 (R); Height 5 ft. 7 in. (170.18 cm); Pain 0/10; 06:00 BP 129 / 85; Pulse 60; Resp 18; Pulse Ox 98% on R/A; sf 06:45 BP 128 / 75; Pulse 61; Resp 19; Pulse Ox 100% on R/A; lp1 07:30 BP 121 / 79; Pulse 60; Resp 16 S; Pulse Ox 100% on R/A; aa5 09:57 BP 126 / 83; Pulse 64; Resp 15; Pulse Ox 97% ; jl7 11:30 BP 128 / 85; Pulse 61; Resp 18 S; Temp 98.4(TE); Pulse Ox 100% on R/A; aa5 05:30 Body Mass Index 23.18 (67.13 kg, 170.18 cm) lp1 ED Course: 05:28 Patient arrived in ED. mw2 05:30 Cruz Williamson MD is Attending Physician. mh7 05:30 Maintain EMS IV. Dressing intact. Good blood return noted. Site clean \T\ dry. Gauge \T\ lp 1 site: 18g to L AC. 05:32 Triage completed. lp1 05:32 Arm band placed on right wrist. lp1 05:34 Patient has correct armband on for positive identification. Bed in low position. Call lp1 light in reach. case monitor on. Pulse ox on. NIBP on. 05:56 Kenyatta Fletcher, RN is Primary Nurse. lp1 06:40 XRAY Chest (1 view) Sent. sf 06:40 X-ray(s) taken. sf 06:45 XRAY Chest (1 view) In Process Unspecified. EDMS 07:04 Attending Physician role handed off by Cruz Williamson MD ma2 07:04 Parveen Reveles MD is Attending Physician. ma2 08:27 Primary Nurse role handed off by Kenyatta Fletcher RN 09:28 Sonia Nair RN is Primary Nurse. aa5 10:49 Michele Kaur is Hospitalizing Provider. ma2 12:36 No provider procedures requiring assistance completed. Patient admitted, IV remains in jl7 place. intact, No redness/swelling at site. Administered Medications: 09:58 Drug: Magnesium Sulfate 1 grams Route: IVPB; Infused Over: 1 hrs; Site: left sr5 antecubital; 09:58 Drug: NS 0.9% 500 ml Route: IV; Rate: 50 ml/hr; Site: left antecubital; sr5 Outcome: 10:48 Discharge ordered by . ma2 10:49 Decision to Hospitalize by Provider. ma2 12:36 Admitted to Tele accompanied by corrie, via wheelchair, room 231, with chart, Report jl7 called to SABINE Patten 12:36 Condition: stable 12:36 Discharge instructions given to patient, Instructed on the need for admit, Demonstrated understanding of instructions. 12:49 Patient left the ED. aa5 Signatures: Dispatcher [employer] EDMS Bettina Pratt bd Sonia Nair, RN RN aa5 Kenyatta Fletcher, RN RN lp1 Kenny Rebollar RN RN sr5 Nilton Son RN RN jl7 Parveen Reveles MD MD ak2 Samantha Art [facility] Cruz Williamson MD MD 7 Jonny Mandujano RN RN sf Corrections: (The following items were deleted from the chart) 06:10 05:30 Respiratory: Airway is patent Respiratory effort is even, unlabored, Breath lp1 sounds are diminished in left posterior lower lobe and right posterior lower lobe lp1
[2020-12-15] MEDS ORDERED: ONDANSETRON 4 MG/2 ML VIAL IV PRN (13:30)
[2020-12-15] MEDS: IPRATROPIUM BROM 0.5MG/2.5ML NEB SCH ×2 (14:30→20:00)
[2020-12-15] MEDS: ALBUTEROL 2.5 MG/3 ML NEB SOL NEB SCH ×2 (14:30→20:00)
[2020-12-15 19:12] VITALS: BMI 23.1
[2020-12-16] MEDS: ALBUTEROL 2.5 MG/3 ML NEB SOL NEB SCH ×2 (01:30→08:29)
[2020-12-16] MEDS: IPRATROPIUM BROM 0.5MG/2.5ML NEB SCH ×2 (01:30→08:29)
[2020-12-16 05:37] LABS: Absolute Lymphocytes (CBC) 0.4 K/uL (0.7-4.9); Hematocrit 31.3 % (39.6-49.0); Lymphocytes % 14.4 % (15.3-44.8); MPV 7.6 fL (7.6-11.3); RBC Red Blood Cell Count 3.38 M/uL (4.33-5.43)
[2020-12-16 06:01] LABS: Albumin 2.8 g/dL (3.4-5.0); Bilirubin Total 0.4 mg/dL (0.2-1.0); Magnesium 1.8 mg/dL (1.8-2.4); Potassium 3.8 mmol/L (3.5-5.1); Protein, Total 5.8 g/dL (6.4-8.2); Thyroid Stimulating Hormone 3.91 uIU/mL (0.360-3.740)
[2020-12-16] MEDS ORDERED: MAGNESIUM SULFATE 1 gm IVPB 1 GM/100 ML BAG IV ONE (06:15)
[2020-12-16] MEDS ORDERED: ENOXAPARIN 40 MG/0.4 ML SQ SCH (09:00)
[2020-12-16] MEDS ORDERED: POTASSIUM CL SA 10 MEQ TAB PO ONE (09:00)
[2020-12-16 09:30] VITALS: O2SAT 98
[2020-12-16 10:17] VITALS: BP 132/63; TEMP 97.8
--- NOTE | 2020-12-16 10:45 | P.DS ---
Admission Date: 12/15/20 Discharge Date: 12/16/20 Disposition: [place] HOME/HOME HEALTH CARE Discharge Condition: GOOD Reason for Admission: Shortness of breath Procedures: CXR (12/15): No peripheral mass or consolidation. Minimal CHF/volume overload suspected. Chest findings are much less prominent than seen December 09. Problem List: Acute on Chronic Hyponatremia Acute on Chronic COPD Exacerbation Chronic Atrial fibrillation Chronic systolic CHF CKD3b Brief History of Present Illness: 80-year-old gentleman with a history of COPD, chronic systolic heart failure, chronic atrial fibrillation status post pacemaker, diabetes mellitus type 2, history of hyponatremia presented to the emergency department with a complaint of sudden onset of shortness of breath which occurred last night during sleep. Chest x-ray done in the emergency department is unremarkable. Troponin is negative. Patient was given nebulizer treatment in the ED with significant improvement. He was saturating at 99% on room air during my examination. Notable in his blood work is hyponatremia with a sodium of 124. He has a history of recurrent hyponatremia. Noted patient is on maintenance Lasix therapy. Patient placed under observation for further monitoring and management of the hyponatremia. Hospital Course: Patient's diuretics were held and he had improvement of his hyponatremia up to 131. He reported feeling much better and was asking to be discharged home. His frequent presentations to the ED / CHF and/or COPD exacerbations were reviewed. I advised strongly that he consider short-term SNF placement, however, he adamantly refused. His and son were called, however neither answered/returned the phone call. His medication list was reviewed and he was advised to continue medications as previously prescribed EXCEPT his recently started spironolactone which could be the biggest culprit for his hyponatremia. Vital Signs/Physical Exam: Physical Exam General: Alert, In no apparent distress, Oriented x3 HEENT: Atraumatic, PERRLA, Mucous membr. moist/pink, EOMI, Sclerae nonicteric Respiratory: Clear to auscultation bilaterally, Diminished at bases bilaterally Cardiovascular: Regular rate/rhythm, Normal S1 S2, Systolic murmur Gastrointestinal: Normal bowel sounds, Soft and benign, Non-distended Integumentary: No rashes, No erythema Ext: 1+ pitting edema posterior b/l lower extremities to knees Neurological: Normal strength at 5/5 x4 extr, Cranial nerves 3-12 intact Temp Pulse Resp BP Pulse Ox 97.8 F 60 20 132/63 97 12/16/20 08:00 12/16/20 08:00 12/16/20 08:00 12/16/20 08:00 12/16/20 08:00 Laboratory Data at Discharge: WBC 2.70 K/uL (4.3-10.9) L 12/16/20 05:26 Hgb 11.0 g/dL (13.6-17.9) L 12/16/20 05:26 Hct 31.3 % (39.6-49.0) L 12/16/20 05:26 Plt Count 151 K/uL (152-406) L 12/16/20 05:26 PT 11.9 SECONDS (9.5-12.5) 12/15/20 05:35 INR 1.03 12/15/20 05:35 Sodium 131 mmol/L (136-145) L 12/16/20 05:26 Potassium 3.8 mmol/L (3.5-5.1) 12/16/20 05:26 BUN 26 mg/dL (7-18) H 12/16/20 05:26 Creatinine 1.46 mg/dL (0.55-1.3) H 12/16/20 05:26 Glucose 108 mg/dL (74-106) H 12/16/20 05:26 Phosphorus 3.0 mg/dL (2.5-4.9) 12/16/20 05:26 Magnesium 1.8 mg/dL (1.8-2.4) 12/16/20 05:26 Total Bilirubin 0.4 mg/dL (0.2-1.0) 12/16/20 05:26 AST 13 U/L (15-37) L 12/16/20 05:26 ALT 18 U/L (12-78) 12/16/20 05:26 Alkaline Phosphatase 59 U/L (45-117) 12/16/20 05:26 Home Medications: RX: Albuterol Sulfate [Ventolin Hfa] 18 inh IN BID 11/13/20 RX: Potassium Chloride [Micro-K] 10 meq PO M,W,F 11/13/20 RX: Primidone 250 mg PO QID 11/13/20 RX: Sacubitril/Valsartan [Entresto 97 mg-103 mg Tablet] 1 each PO BID 11/13/20 RX: Furosemide 40 mg PO BID 30 Days #60 tablet 12/05/20 RX: Albuterol Neb [Proventil 0.083% Neb Soln] 2.5 mg NEB Q6HP PRN #120 amp 12/10/20 RX: Arformoterol Tartrate [Brovana] 15 mcg NEB BIDRESP #60 vial.neb 12/10/20 RX: Metoprolol Succinate [Toprol Xl*] 25 mg PO DAILY #30 tab 12/10/20 RX: predniSONE [Deltasone*] 40 mg PO DAILY #50 tab 12/10/20 Physician Discharge Instructions: You were found to have low sodium levels (hyponatremia). You have had low sodium levels in the past as well. This is likely due to the new medication - spironolactone. Your sodium improved with holding this medication. Please discontinue this medication. Continue your other medications as previously prescribed. It is important that you continue your inhalers daily and nebulizers as needed as well. Please follow up with your doctor in 3-5 days. Diet: AHA Activity: Ad brianna Followup: NONE,NONE [Primary Care Provider] - Time spent managing pt's care (in minutes): 35
--- NOTE | 2020-12-16 12:57 | EKG ---
Test Date: 2020-12-15 Test Time: 05:49:21 Mild Disabilities Teacher: KERLINE MEASUREMENT RESULTS: Intervals: Rate: 59 SD: 124 QRSD: 156 QT: 490 QTc: 485 [place]: P: 104 SD: 124 QRS: -66 T: 115 INTERPRETIVE STATEMENTS: Electronic ventricular pacemaker Compared to ECG 12/09/2020 00:27:29 No significant changes Electronically Signed On 12-16-20 12:53:00 CDT by Max Pro
== END 2020-12-16 13:16 | disposition home health service (06) ==
LOC: ER 05:25 → ERHOLD 10:16 → 2ND 12:37
PROVIDERS: ADMIT Internal Medicine; ATTEND Hospitalist
DX: J44.1 Chronic obstructive pulmonary disease with (acute) exacerbation (principal); E87.1 Hypo-osmolality and hyponatremia; Z20.822 Contact with and (suspected) exposure to COVID-19; I48.20 Chronic atrial fibrillation, unspecified; I13.0 Hypertensive heart and chronic kidney disease with heart failure and stage 1 through stage 4 chronic kidney disease, or unspecified chronic kidney disease; I50.22 Chronic systolic (congestive) heart failure; N18.32 Chronic kidney disease, stage 3b; Z95.0 Presence of cardiac pacemaker; E11.22 Type 2 diabetes mellitus with diabetic chronic kidney disease; Z79.02 Long term (current) use of antithrombotics/antiplatelets; F10.20 Alcohol dependence, uncomplicated; Z86.73 Personal history of transient ischemic attack (TIA), and cerebral infarction without residual deficits; G20 Parkinson's disease; E78.5 Hyperlipidemia, unspecified; I34.0 Nonrheumatic mitral (valve) insufficiency
CPT/HCPCS: 93005; 85025 ×2; 80048; 36415; 83735 ×2; 84100; 85610; 84300; 80076; 84443; 81003; 84484; 84439; 80053; 83880; 83930; 83935; 71045; 97116 ×2; 97161; 94640; 94760 ×3; 96374; 99285; U0003; J1650; J3475 ×2; J7040; G0378

== ENCOUNTER 2021-01-05 02:15 | Observation (INO) | payer OTHER ==
--- OUTSIDE RECORDS SUMMARY | 2021-01-05 02:18 | XMS REPORT | Continuity of Care Document ---
:1940 Author Organization [facility] t Address [address] [place] [address] Care Team Providers Name Role Phone Eryn [...] 10-04 [facility] 00:00: [address] No Known DA Active U [facility] Allergie 05-20 [facility] 00:00: [address] Medications This patient has no known medications. Procedures This patient has no known procedures. Encounters Start End Encounter Admission Attending Care Care Encounter Source Date/Time Date/Time Type Type Clinicians Facility Department ID 2020-06-05 2020-06-05 Transition Mary Kay Cerna [id number] 00:00:00 00:00:00 of Care Cody Stover [id number] Clarisa [id number] 2020-05-29 2020-06-[facility] [id number] 18:50:00 17:57:00 Encounter Arben Julien [id number] Ling [id number] [place] [id number] Results This patient has no known results.
[2021-01-05] MEDS ORDERED: MECLIZINE HCL 12.5 MG TAB ONE (02:57)
[2021-01-05 03:09] LABS: Protime INR 1.13
[2021-01-05] MEDS ORDERED: ALBUTEROL 2.5 MG/3 ML NEB SOL ONE ×4 (03:09→19:59)
[2021-01-05] MEDS ORDERED: METHYLPREDNISOLONE 125 MG INJ ONE (03:09)
[2021-01-05] MEDS ORDERED: IPRATROPIUM BROM 0.5MG/2.5ML ONE ×4 (03:09→19:59)
[2021-01-05 03:12] LABS: Absolute Lymphocytes (CBC) 0.5 K/uL (0.7-4.9); Basophils % 1.1 % (0-1.3); Hematocrit 30.6 % (39.6-49.0); MPV 7.9 fL (7.6-11.3); RBC Red Blood Cell Count 3.32 M/uL (4.33-5.43)
[2021-01-05 03:21] LABS: Albumin 3.6 g/dL (3.4-5.0); Bilirubin Direct 0.2 mg/dL (0-0.2); Bilirubin Total 0.5 mg/dL (0.2-1.0); Magnesium 1.6 mg/dL (1.8-2.4); Potassium 4.2 mmol/L (3.5-5.1); Troponin (Emerg Dept Use Only) 0.02 ng/mL (0.0-0.045)
--- NOTE | 2021-01-05 03:44 | ER ---
Nurse's Notes [facility] Name: Jimbo Cat Age: 80 yrs Sex: Male : 1940 Arrival Date: 01/05/2021 Time: 02:18 Bed 23 Private MD: Diagnosis: CHF exacerbation;COPD Exacerbation;Vertigo Presentation: 01/05 02:18 Chief complaint: EMS states: PATIENT WOKE AT ABOUT 11PM LASTNIGHT, WALKED TO THE BATHROOM AND FELT DIZZY. DID NOT GET BETTER. WITH HISTORY OF COPD, UPON ARRIVAL, PATIENT IS WHEEZING, GIVEN BREATHING TREATMENT OF ALBUTEROL AND ATROVENT. Coronavirus screen: Client denies travel out of the [place] in the last 14 days. cough unrelated to allergies, difficulty breathing, Client presents with at least one sign or symptom that may indicate coronavirus-19. Standard/surgical mask placed on the client. Provider contacted for isolation considerations. Ebola Screen: No symptoms or risks identified at this time. Initial Sepsis Screen: Does the patient meet any 2 criteria? No. Patient's initial sepsis screen is negative. Does the patient have a suspected source of infection? No. Patient's initial sepsis screen is negative. Risk Assessment: Do you want to hurt yourself or someone else? Patient reports no desire to harm self or others. Onset of symptoms was January 04, 2021 at 23:00. 02:18 Method Of Arrival: EMS: [facility] 02:18 Acuity: SYDNIE 3 Triage Assessment: 02:22 General: Appears uncomfortable, Behavior is calm, cooperative. Pain: Denies pain. EENT: rv No signs and/or symptoms were reported regarding the EENT system. Neuro: Level of Consciousness is awake, alert, obeys commands, Oriented to person, place, time, situation. Cardiovascular: Patient's skin is warm and dry. Respiratory: Airway is patent Respiratory effort is labored, Breath sounds with wheezes bilaterally. Derm: Skin is intact. Historical: - Allergies: 02: No Known Allergies; rv - PMHx: 02: Alcoholism; COPD; CVA; Diabetes; HEART FAILURE; Hypertension; possible dementia; rv - PSHx: 02: None; rv - Immunization history:: Adult Immunizations up to date. - Social history:: Smoking status: Patient/guardian denies using tobacco, the patient reports quitting approximately 30 years ago. Screenin:23 Abuse screen: Denies threats or abuse. Denies injuries from another. Nutritional rv screening: No deficits noted. Tuberculosis screening: No symptoms or risk factors identified. Fall Risk None identified. Assessment: 02:20 General: Appears in no apparent distress. comfortable, Behavior is calm, cooperative, rr5 appropriate for age. 02:20 Pain: Denies pain. Neuro: Level of Consciousness is awake, alert, obeys commands, rr5 Oriented to person, place, time, Reports dizziness. Cardiovascular: Cardiovascular: Capillary refill < 3 seconds Patient's skin is warm and dry. Respiratory: Airway is patent Respiratory effort is even, unlabored, Respiratory pattern is regular, symmetrical. GI: No signs and/or symptoms were reported involving the gastrointestinal system. : No signs and/or symptoms were reported regarding the genitourinary system. EENT: No signs and/or symptoms were reported regarding the EENT system. Derm: Skin is fragile, is thin, Skin temperature is warm. Musculoskeletal: Capillary refill < 3 seconds. Vital Signs: 02:18 BP 149 / 95; Pulse 60; Resp 15; Temp 97.6; Pulse Ox 99% on R/A; Weight 67.13 kg; Height rv 5 ft. 7 in. (170.18 cm); Pain 0/10; 02:42 BP 124 / 70; Pulse 62; Resp 16; Pulse Ox 98% ; rr5 02:18 Body Mass Index 23.18 (67.13 kg, 170.18 cm) rv ED Course: 02:18 Patient arrived in ED. rv 02:19 Cruz Williamson MD is Attending Physician. [facility] 02:22 Triage completed. rv 02:23 Arm band placed on right wrist. Patient placed in the treatment room, on a stretcher, rv Patient notified of wait time. 02:23 Patient has correct armband on for positive identification. radiation monitor on. Pulse rv ox on. NIBP on. 02:25 Inserted saline lock: 20 gauge in right forearm, using aseptic technique. ,using rr5 aseptic technique. inserted by [facility] Blood collected. 02:29 Fabian Adan, RN is Primary Nurse. rv 02:42 No provider procedures requiring assistance completed. rr5 02:54 CT Head Brain wo Cont In Process Unspecified. EDMS 02:59 XRAY Chest (1 view) In Process Unspecified. EDMS 03:43 Parveen Crabtree MD is Hospitalizing Provider. 7 08:14 Urine Dipstick--Ancillary (enter results) Sent. sv 08:15 COVID-19 : Document "Date of Symptom Onset" if Symptomatic. Sent. sv 13:43 Warm blanket given. Diet tray given. Verbal reassurance given. Diet: Patient given a jp3 regular meal tray. Patient given water. Tolerated well. Administered Medications: 02:40 Drug: Meclizine 25 mg Route: PO; rr5 03:40 Follow up: Response: No adverse reaction rr5 03:00 Drug: Albuterol 1.25 mg Route: Inhalation; rr5 04:00 Follow up: Response: No adverse reaction rr5 03:00 Drug: AtroVENT (ipratropium) Aerosol 0.5 mg Route: Inhalation; rr5 04:00 Follow up: Response: No adverse reaction rr5 03:00 CANCELLED (Other Intervention Used): SOLU-Medrol (methylPREDNISolone sodium succinate) rr5 125 mg IM once 03:00 Drug: SOLU-Medrol (methylPrednisoLONE) 125 mg Route: IVP; Site: right forearm; rr5 04:00 Follow up: Response: No adverse reaction rr5 03:45 Drug: Lasix (furosemide) 40 mg Route: IVP; Site: right forearm; rr5 04:45 Follow up: Response: No adverse reaction rr5 03:56 Drug: Magnesium Sulfate 1 grams Route: IVPB; Infused Over: 1 hrs; Site: right forearm; rr5 05:29 Follow up: Response: No adverse reaction; IV Status: Completed infusion; IV Intake: rr5 100ml Intake: 05:29 IV: 100ml; Total: 100ml. rr5 Outcome: 03:44 Decision to Hospitalize by Provider. mh7 21:37 Patient left the ED. bb Signatures: Dispatcher [employer] Vandana Mccoy RN Kerry Davenport RN RN bb Fabian Adan RN RN Cassius Clements jp3 Richard Barron RN RN rr5 Cruz Williamson MD MD 7
--- NOTE | 2021-01-05 03:44 | EDPHYS ---
Physician Documentation [facility] Name: Jimbo Cat Age: 80 yrs Sex: Male : 1940 Arrival Date: 01/05/2021 Time: 02:18 Bed 23 Private MD: ED Physician Cruz Williamson HPI: 01/05 02:29 This 80 yrs old Male presents to ER via EMS with complaints of Dizziness. mh7 02:29 The patient presents with dizziness, sense of spinning. Onset: The symptoms/episode mh7 began/occurred last night, at 23:00. Context: occurred at home, occurred while the patient was walking, just prior to the episode the patient experienced no apparent symptoms. Modifying factors: The symptoms are alleviated by lying down, the symptoms are aggravated by movement of head, standing up, changing position. Associated signs and symptoms: Pertinent negatives: abdominal pain, agitation, ataxia, blurred vision, chest pain, combativeness, confusion, diaphoresis, focal weakness, head injury, headache, nausea, near-syncope, numbness, palpitations, seizure, shortness of breath, syncope, tingling, vomiting. Severity of symptoms: At their worst the symptoms were moderate today, in the emergency department the symptoms are unchanged. Historical: - Allergies: 02:22 No Known Allergies; rv - PMHx: 02:22 Alcoholism; COPD; CVA; Diabetes; HEART FAILURE; Hypertension; possible dementia; rv - PSHx: 02:22 None; rv - Immunization history:: Adult Immunizations up to date. - Social history:: Smoking status: Patient/guardian denies using tobacco, the patient reports quitting approximately 30 years ago. ROS: 02:29 Constitutional: Negative for fever, chills, and weight loss, Eyes: Negative for injury, mh7 pain, redness, and discharge, ENT: Negative for injury, pain, and discharge, Neck: Negative for injury, pain, and swelling, Cardiovascular: Negative for chest pain, palpitations, and edema, Respiratory: Negative for shortness of breath, cough, wheezing, and pleuritic chest pain, Abdomen/GI: Negative for abdominal pain, nausea, vomiting, diarrhea, and constipation, Back: Negative for injury and pain, : Negative for injury, bleeding, discharge, and swelling, MS/Extremity: Negative for injury and deformity, Skin: Negative for injury, rash, and discoloration, Neuro: Negative for headache, weakness, numbness, tingling, and seizure, Psych: Negative for depression, anxiety, suicide ideation, homicidal ideation, and hallucinations, Allergy/Immunology: Negative for hives, rash, and allergies, Endocrine: Negative for neck swelling, polydipsia, polyuria, polyphagia, and marked weight changes, Hematologic/Lymphatic: Negative for swollen nodes, abnormal bleeding, and unusual bruising. Exam: 02:29 Neuro: Orientation: is normal, Mentation: is normal, Memory: is normal, Cranial nerves: mh7 grossly normal, Cerebellar function: is grossly normal, Motor: is normal, Sensation: is normal, Gait: not tested. seizure activity, is not displayed by the patient, Abnormal movements: there are no abnormal movements. 02:29 Constitutional: This is a well developed, well nourished patient who is awake, alert, mh7 and in no acute distress. Head/Face: Normocephalic, atraumatic. Eyes: Pupils equal round and reactive to light, extra-ocular motions intact. Lids and lashes normal. Conjunctiva and sclera are non-icteric and not injected. Cornea within normal limits. Periorbital areas with no swelling, redness, or edema. Neck: Trachea midline, no thyromegaly or masses palpated, and no cervical lymphadenopathy. Supple, full range of motion without nuchal rigidity, or vertebral point tenderness. No Meningismus. Chest/axilla: Normal chest wall appearance and motion. Nontender with no deformity. No lesions are appreciated. Cardiovascular: Regular rate and rhythm with a normal S1 and S2. No gallops, murmurs, or rubs. Normal PMI, no JVD. No pulse deficits. 02:29 Abdomen/GI: Soft, non-tender, with normal bowel sounds. No distension or tympany. No mh7 guarding or rebound. No evidence of tenderness throughout. Back: No spinal tenderness. No costovertebral tenderness. Full range of motion. Skin: Warm, dry with normal turgor. Normal color with no rashes, no lesions, and no evidence of cellulitis. MS/ Extremity: Pulses equal, no cyanosis. Neurovascular intact. Full, normal range of motion. Psych: Awake, alert, with orientation to person, place and time. Behavior, mood, and affect are within normal limits. 02:29 Respiratory: the patient does not display signs of respiratory distress, Respirations: prolonged exhalation, that is mild, Breath sounds: rhonchi, that are moderate, are scattered, Respiratory rate: 16 Vital Signs: 02:18 BP 149 / 95; Pulse 60; Resp 15; Temp 97.6; Pulse Ox 99% on R/A; Weight 67.13 kg; Height rv 5 ft. 7 in. (170.18 cm); Pain 0/10; 02:42 BP 124 / 70; Pulse 62; Resp 16; Pulse Ox 98% ; rr5 02:18 Body Mass Index 23.18 (67.13 kg, 170.18 cm) rv MDM: 03:42 Differential diagnosis: cardiac arrhythmia, hyperventilation, hypovolemia, idiopathic [facility] [place] dizziness, near-syncope, syncope, vertigo. Data reviewed: vital signs, nurses notes, EMS record, old medical records, lab test result(s), cardiac enzymes, CBC, electrolytes, urinalysis, EKG, radiologic studies, CT scan, plain films. Data interpreted: Pulse oximetry: on 2L(s) per nasal canula, is 98 %. Interpretation: acceptable. Counseling: I had a detailed discussion with the patient and/or guardian regarding: the historical points, exam findings, and any diagnostic results supporting the discharge/admit diagnosis, lab results, radiology results, the need for further work-up and treatment in the hospital. Response to treatment: the patient's symptoms have mildly improved after treatment. 03:[address] [facility] [place] 01/05 02:28 Order name: Basic Metabolic Panel [facility] [place] 01/05 02:28 Order name: CBC with Diff; Complete Time: 03:33 [facility] [place] 01/05 02:28 Order name: LFT's [facility] [place] 01/05 02:28 Order name: Magnesium [facility] [place] 01/05 02:28 Order name: NT PRO-BNP [facility] [place] 01/05 02:28 Order name: PT-INR; Complete Time: 03:33 [facility] [place] 01/05 02:28 Order name: Troponin (emerg Dept Use Only) [facility] [place] 01/05 05:50 Order name: COVID-19 : Document "Date of Symptom Onset" if Symptomatic. [facility] 01/05 05:51 Order name: Urine Dipstick--Ancillary (enter results) [facility] 01/05 06:10 Order name: Urinalysis [facility] 01/05 06:11 Order name: UR SODIUM [facility] 01/05 06:15 Order name: Urine Dipstick-Ancillary [facility] 01/05 06:18 Order name: Urine Microscopic Only [facility] 01/05 02:28 Order name: XRAY Chest ([address] view) [facility] [place] 01/05 02:28 Order name: EKG; Complete Time: 02:29 [facility] [place] 01/05 02:28 Order name: CT Head Brain wo Cont [facility] [place] 01/05 06:22 Order name: SARS-COV-2 RT PCR [facility] 01/05 07:08 Order name: Thyroid Stimulating Hormone [facility] 01/05 07:22 Order name: T4 Free [facility] 01/05 07:48 Order name: Cortisol [facility] 01/05 08:00 Order name: Osmolality, Serum [facility] 01/05 08:00 Order name: Osmolality, Urine [facility] 01/05 02:28 Order name: Cardiac monitoring; Complete Time: 02:30 [facility] [place] 01/05 02:28 Order name: EKG - Nurse/Tech; Complete Time: 02:30 [facility] [place] 01/05 02:28 Order name: IV Saline Lock; Complete Time: 02:30 [facility] [place] 01/05 02:28 Order name: Labs collected and sent; Complete Time: 02:30 [facility] [place] 01/05 02:28 Order name: O2 Per Protocol; Complete Time: 02:30 [facility] [place] 01/05 02:28 Order name: O2 Sat Monitoring; Complete Time: 02:30 [facility] [place] 01/05 02:28 Order name: Urine Dipstick-Ancillary (obtain specimen); Complete Time: 05:50 7 Administered Medications: 02:40 Drug: Meclizine 25 mg Route: PO; rr5 03:40 Follow up: Response: No adverse reaction rr5 03:00 Drug: Albuterol 1.25 mg Route: Inhalation; rr5 04:00 Follow up: Response: No adverse reaction rr5 03:00 Drug: AtroVENT (ipratropium) Aerosol 0.5 mg Route: Inhalation; rr5 04:00 Follow up: Response: No adverse reaction rr5 03:00 CANCELLED (Other Intervention Used): SOLU-Medrol (methylPREDNISolone sodium succinate) rr5 125 mg IM once 03:00 Drug: SOLU-Medrol (methylPrednisoLONE) 125 mg Route: IVP; Site: right forearm; rr5 04:00 Follow up: Response: No adverse reaction rr5 03:45 Drug: Lasix (furosemide) 40 mg Route: IVP; Site: right forearm; rr5 04:45 Follow up: Response: No adverse reaction rr5 03:56 Drug: Magnesium Sulfate 1 grams Route: IVPB; Infused Over: 1 hrs; Site: right forearm; rr5 05:29 Follow up: Response: No adverse reaction; IV Status: Completed infusion; IV Intake: rr5 100ml Disposition: 01/05/21 03:44 Hospitalization ordered by Parveen Crabtree for Inpatient Admission. Preliminary diagnosis are CHF exacerbation, COPD Exacerbation, Vertigo. - Bed requested for Telemetry/MedSurg (Inpatient). - Status is Inpatient Admission. bb - Condition is Stable. - Problem is an acute exacerbation. - Symptoms have improved. Signatures: Dispatcher [employer] EDMS Kerry Tucker RN RN bb Shaq Panchal, ANGELA-C SUPERVISOR JOINERS-Cla1 Liz Chery RN RN 1 Samantha Art 2 Fabian Adan RN Richard Ellison RN RN rr5 Cruz Williamson MD MD [facility] [place] Corrections: (The following items were deleted from the chart) 03:00 02:59 SOLU-Medrol (methylPREDNISolone sodium succinate) 125 mg IM once ordered. rr5 rr5 03:36 02:29 Constitutional: This is a well developed, well nourished patient who is awake, mh7 alert, and in no acute distress. Head/Face: Normocephalic, atraumatic. Eyes: Pupils equal round and reactive to light, extra-ocular motions intact. Lids and lashes normal. Conjunctiva and sclera are non-icteric and not injected. Cornea within normal limits. Periorbital areas with no swelling, redness, or edema. Neck: Trachea midline, no thyromegaly or masses palpated, and no cervical lymphadenopathy. Supple, full range of motion without nuchal rigidity, or vertebral point tenderness. No Meningismus. Chest/axilla: Normal chest wall appearance and motion. Nontender with no deformity. No lesions are appreciated. Cardiovascular: Regular rate and rhythm with a normal S1 and S2. No gallops, murmurs, or rubs. Normal PMI, no JVD. No pulse deficits. Respiratory: Lungs have equal breath sounds bilaterally, clear to auscultation and percussion. No rales, rhonchi or wheezes noted. No increased work of breathing, no retractions or nasal flaring. Abdomen/GI: Soft, non-tender, with normal bowel sounds. No distension or tympany. No guarding or rebound. No evidence of tenderness throughout. Back: No spinal tenderness. No costovertebral tenderness. Full range of motion. Skin: Warm, dry with normal turgor. Normal color with no rashes, no lesions, and no evidence of cellulitis. MS/ Extremity: Pulses equal, no cyanosis. Neurovascular intact. Full, normal range of motion. Psych: Awake, alert, with orientation to person, place and time. Behavior, mood, and affect are within normal limits. 7 05:13 03:44 Hospitalization Ordered by Parveen Crabtree MD for Inpatient Admission. Preliminary mw2 diagnosis is CHF exacerbation; COPD Exacerbation; Vertigo. Bed requested for Telemetry/MedSurg (Inpatient). Status is Inpatient Admission. Condition is Stable. Problem is an acute exacerbation. Symptoms have improved. [facility] [place] 19:59 05:13 01/05/2021 03:44 Hospitalization Ordered by Parveen Crabtree MD for Inpatient tl1 Admission. Preliminary diagnosis is CHF exacerbation; COPD Exacerbation; Vertigo. Bed requested for [facility] ER HOLD. Status is Inpatient Admission. Condition is Stable. Problem is an acute exacerbation. Symptoms have improved. mw2 20:04 19:59 01/05/2021 03:44 Hospitalization Ordered by Parveen Crabtree MD for Inpatient tl1 Admission. Preliminary diagnosis is CHF exacerbation; COPD Exacerbation; Vertigo. Bed requested for Telemetry/MedSurg (Inpatient). Status is Inpatient Admission. Condition is Stable. Problem is an acute exacerbation. Symptoms have improved. tl1 21:37 20:04 01/05/2021 03:44 Hospitalization Ordered by Parveen Crabtree MD for Inpatient bb Admission. Preliminary diagnosis is CHF exacerbation; COPD Exacerbation; Vertigo. Bed requested for Telemetry/MedSurg (Inpatient). Status is Inpatient Admission. Condition is Stable. Problem is an acute exacerbation. Symptoms have improved. tl1
[2021-01-05] MEDS ORDERED: FUROSEMIDE 40 MG/4 ML VIAL ONE (04:00)
[2021-01-05] MEDS ORDERED: MAGNESIUM SULFATE 1 gm IVPB 1 GM/100 ML BAG IV ONE ×2 (04:04→21:00)
--- NOTE | 2021-01-05 04:48 | P.HP ---
Certification for Inpatient Patient admitted to: Observation With expected LOS: <2 Midnights Patient will require the following post-hospital care: None Practitioner: I am a practitioner with admitting privileges, knowledge of patient current condition, hospital course, and medical plan of care. Services: Services provided to patient in accordance with Admission requirements found in Title 42 Section 412.3 of the Code of Federal Regulations <Shaq Panchal - Last Filed: 01/05/21 04:44> Patient History Date of Service: 01/05/21 Reason for admission: COPD exacerbation, dizziness History of Present Illness: 80-year-old male with history of chronic systolic congestive heart failure, COPD, CKD 3, chronic atrial fibrillation presents emergency department for dizziness. Patient reports that he got up to the bathroom around 2300 and was having trouble walking down the hallway. Patient reports periods of dizziness associated with movement of his head, patient also notes some shortness of breath. 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 Patient with expiratory wheezing refractory to initial treatment with steroids, nebulizers in the emergency department. Patient with many previous admissions for COPD/CHF/hyponatremia. ED provider wishes to admit for further evaluation and management. 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 - Family History Father -: Heart disease Mother -: Heart disease, Hypertension, Diabetes, Cancer - Social History Smoking Status: Former smoker Alcohol use: No CD- Drugs: No Caffeine use: No Place of Residence: Home <Shaq Panchal - Last Filed: 01/05/21 04:44> Date of Service: 01/11/21 <Richard Dent - Last Filed: 01/11/21 21:42> Allergies No Known Allergies Allergy (Verified 10/11/20 23:03) Home Medications: Albuterol Sulfate [Ventolin Hfa] 18 inh IN BID 11/13/20 Potassium Chloride [Micro-K] 10 meq PO M,W,F 11/13/20 Primidone 250 mg PO QID 11/13/20 Sacubitril/Valsartan [Entresto 97 mg-103 mg Tablet] 1 each PO BID 11/13/20 Furosemide 40 mg PO BID 30 Days #60 tablet 12/05/20 Albuterol Neb [Proventil 0.083% Neb Soln] 2.5 mg NEB Q6HP PRN #120 amp 12/10/20 Arformoterol Tartrate [Brovana] 15 mcg NEB BIDRESP #60 vial.neb 12/10/20 Metoprolol Succinate [Toprol Xl*] 25 mg PO DAILY #30 tab 12/10/20 predniSONE [Deltasone*] 40 mg PO DAILY #50 tab 12/10/20 Review of Systems 10-point ROS is otherwise unremarkable Respiratory: Cough, Shortness of Breath Neurological: Other (Dizziness) <Shaq Panchal - Last Filed: 01/05/21 04:44> Physical Examination - Physical Exam General: Alert, In no apparent distress, Oriented x3 HEENT: Atraumatic, PERRLA, Mucous membr. moist/pink Neck: Supple, 2+ carotid pulse no bruit, No LAD Respiratory: Normal air movement, Expiratory wheezes, Rhonchi/gurgles Cardiovascular: Regular rate/rhythm, Normal S1 S2 Gastrointestinal: Normal bowel sounds, No tenderness Musculoskeletal: No tenderness Integumentary: No rashes Neurological: Normal speech, Normal strength at 5/5 x4 extr, Normal tone - Studies Laboratory Data (last 24 hrs) 01/05/21 02:34: PT 13.0 H, INR 1.13 01/05/21 02:34: WBC 3.70 L, Hgb 11.0 L, Hct 30.6 L, Plt Count 156 01/05/21 02:34: Sodium 126 L, Potassium 4.2, BUN 32 H, Creatinine 1.47 H, Glucose 100, Magnesium 1.6 L, Total Bilirubin 0.5, AST 22, ALT 23, Alkaline Phosphatase 81 <Shaq Panchal - Last Filed: 01/05/21 04:44> Assessment and Plan - Plan Assessment COPD with exacerbation Acute on chronic systolic congestive heart failure Chronic mild hyponatremia CKD 3 Plan COPD with exacerbation: Continue with IV steroids, scheduled nebs, magnesium has been replaced. Pulmonology consult in place. Patient saturating well on room air at this time but still with expiratory wheezing and mild dyspnea. DVT prophylaxis heparin 5000 subcutaneous twice daily. Acute on chronic systolic congestive heart failure: Obtain and continue home medications including entresto, metoprolol, Lasix. Patient does not appear peripherally edematous at this time although BNP is significantly elevated. Continue home dose of Lasix at this time. Chronic mild hyponatremia: Patient's sodium similar to his baseline and appears, will continue with Lasix. Nephrology consulted for additional assistance in managing patient's chronic hypernatremia and CKD. CKD 3: Continue as above. Discharge Plan: Home Plan to discharge in: 24 Hours - Advance Directives Does patient have a Living Will: No Does patient have a Durable POA for Healthcare: No - Code Status/Comfort Care Code Status Assessed: Yes (DNR) Critical Care: No Time Spent Managing Pts Care (In Minutes): 55 <Shaq Panchal - Last Filed: 01/05/21 04:44> - Plan Plan of care reviewed as noted above by Sahq Panchal. acute on chronic COPD exacerbation, acute on chronic systolic CHF Lasix, IV steroids, lashanda nebs, f/u renal function / UOP <Richard Dent - Last Filed: 01/11/21 21:42>
[2021-01-05] MEDS ORDERED: MECLIZINE HCL 12.5 MG TAB PO PRN (05:38)
[2021-01-05] MEDS ORDERED: ONDANSETRON 4 MG/2 ML VIAL IV PRN (05:38)
[2021-01-05 05:39] VITALS: BMI 23.1
[2021-01-05] MEDS: METOPROLOL XL 25 MG TAB PO SCH (06:00)
[2021-01-05 06:06] LABS: Urine Appearance CLEAR (Clear); Urine Bilirubin NEGATIVE (Negative); Urine Blood 1+ (Negative); Urine Color YELLOW (Yellow); Urine Glucose NEGATIVE (Negative); Urine Protein 1+ (Negative); Urine Specific Gravity <=1.005 (1.005-1.030); Urine Urobilinogen 0.2 mg/dL (0.2-1.0); Urine pH 6.5 (5.0-7.0)
[2021-01-05 06:10] LABS: Urine Microscopic Reflex ORDER UMIC
[2021-01-05 06:15] LABS: Urine Blood 1+ (Negative); Urine Glucose NEGATIVE (Negative); Urine Protein 2+ (Negative); Urine Specific Gravity 1.025 (1.005-1.030)
[2021-01-05 06:18] LABS: Urine Bacteria <20 /HPF (NONE SEEN); Urine RBC <5 /HPF (NONE SEEN)
[2021-01-05] MEDS ORDERED: METOPROLOL XL 50 MG TAB PO ONE (07:02)
--- NOTE | 2021-01-05 07:52 | EKG ---
Test Date: 2021-01-05 Test Time: 02:33:30 Human Capital Analyst: RV MEASUREMENT RESULTS: Intervals: Rate: 62 TN: QRSD: 154 QT: 474 QTc: 481 [place]: P: TN: QRS: -67 T: 151 INTERPRETIVE STATEMENTS: Electronic ventricular pacemaker Compared to ECG 12/15/2020 05:49:21 No significant changes Electronically Signed On 01-05-21 07:51:50 CDT by Max Pro
--- NOTE | 2021-01-05 08:28 | RAD REPORT ---
EXAM DESCRIPTION: RAD - Chest Single View - 01/05/2021 2:59 am CLINICAL HISTORY: dizziness, COPD, heart failure history COMPARISON: December 15December 04 TECHNIQUE: AP portable chest image was obtained 01/05/2021 2:59 am . FINDINGS: Lung volumes are reduced compared to prior imaging. The fullness of the right hilum and in frahilar region accentuated by the low lung volumes. Defibrillator is in place. Cardiomegaly is present. Interstitial opacification does appear increased greater than expected for t he shallow inspiration affects. No measurable pleural effusion and no pneumothorax. No acute bony abn ormality seen. No acute aortic findings suspected. IMPRESSION: CHF/volume overload findings accentuated by low lung volumes. Fullness around the right hilar and infrahilar region again noted not clearly different from comparis on.
--- NOTE | 2021-01-05 08:44 | P.CNS ---
Date of Consult: 01/05/21 Chief Complaint: COPD exacerbation, dizziness History of Present Illness: Patient is 83 years of age with congestive heart failure chronic renal disease presents to the emergency room complaining of vertigo mildly hypernatremic recurrent hospital admissions denies any weakness of his lower extremities also has some lower extremity edema Allergies No Known Allergies Allergy (Verified 10/11/20 23:03) Home Medications: Albuterol Sulfate [Ventolin Hfa] 18 inh IN BID 11/13/20 Potassium Chloride [Micro-K] 10 meq PO M,W,F 11/13/20 Primidone 250 mg PO QID 11/13/20 Sacubitril/Valsartan [Entresto 97 mg-103 mg Tablet] 1 each PO BID 11/13/20 Furosemide 40 mg PO BID 30 Days #60 tablet 12/05/20 Albuterol Neb [Proventil 0.083% Neb Soln] 2.5 mg NEB Q6HP PRN #120 amp 12/10/20 Arformoterol Tartrate [Brovana] 15 mcg NEB BIDRESP #60 vial.neb 12/10/20 Metoprolol Succinate [Toprol Xl*] 25 mg PO DAILY #30 tab 12/10/20 predniSONE [Deltasone*] 40 mg PO DAILY #50 tab 12/10/20 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 -: Pacemaker/defibrillator Psychosocial/ Personal History: 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 , 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 - Family History Father Medical History: Heart disease Mother Medical History: Heart disease, Hypertension, Diabetes, Cancer - Social History Smoking Status: Unknown if ever smoked Alcohol use: No CD- Drugs: No Caffeine use: No Place of Residence: Home Review of Systems 10-point ROS is otherwise unremarkable General: Weakness Respiratory: Shortness of Breath Physical Examination Temp Pulse Resp BP Pulse Ox 72 144/79 H 01/05/21 06:00 01/05/21 06:00 General: Alert, Oriented x3 Neck: Supple Respiratory: Clear to auscultation bilaterally, Diminished Cardiovascular: Regular rate/rhythm, Edema Gastrointestinal: Normal bowel sounds, Soft and benign Laboratory Data (last 24 hrs) 01/05/21 02:34: PT 13.0 H, INR 1.13 01/05/21 02:34: WBC 3.70 L, Hgb 11.0 L, Hct 30.6 L, Plt Count 156 01/05/21 02:34: Sodium 126 L, Potassium 4.2, BUN 32 H, Creatinine 1.47 H, Glucose 100, Magnesium 1.6 L, Total Bilirubin 0.5, AST 22, ALT 23, Alkaline Phosphatase 81 - Problems (1) Dizziness Current Visit: Yes Status: Acute Plan: Patient admitted with dizziness complaining of some vertigo labs read baseline chest x-ray shows cardiomegaly continue to monitor CT of the head is negative chest persistent symptoms are ataxia consider MRI COPD stable congestive heart failure stable physical therapy console to ambulate possible discharge
[2021-01-05] MEDS: FUROSEMIDE 40 MG TABLET PO SCH ×2 (09:00→17:20)
[2021-01-05] MEDS: HEPARIN 5000 UNIT/ML 1 ML VIAL SQ SCH ×2 (09:00→21:57)
[2021-01-05] MEDS: predniSONE 20 MG TAB PO SCH ×2 (09:00→21:57)
[2021-01-05] MEDS: DULERA 100/5 (MOMETASONE/FORMOTEROL) INHALER IH SCH ×2 (09:00→21:58)
[2021-01-05] MEDS ORDERED: METHYLPREDNISOLONE 125 MG INJ IV SCH (09:00)
[2021-01-05] MEDS: IPRATROPIUM BROM 0.5MG/2.5ML NEB SCH ×3 (09:21→20:55)
[2021-01-05] MEDS: ALBUTEROL 2.5 MG/3 ML NEB SOL NEB SCH ×3 (09:21→20:55)
[2021-01-05] MEDS ORDERED: PNEUMOCOCCAL VACCINE 0.5 ML IMVAC ONE (10:00)
[2021-01-05] MEDS ORDERED: HEPARIN 5000 UNIT/ML 1 ML VIAL ONE (10:29)
[2021-01-05] MEDS ORDERED: FUROSEMIDE 40 MG TABLET ONE ×2 (10:30→17:37)
[2021-01-05] MEDS ORDERED: predniSONE 20 MG TAB ONE (10:56)
--- NOTE | 2021-01-05 11:17 | RAD REPORT ---
EXAM DESCRIPTION: CT - Head Brain Wo Cont - 01/05/2021 6:47 am CLINICAL HISTORY: DIZZINESS COMPARISON: 10/11/2020 TECHNIQUE: Axial CT of the head obtained from the skull apex to the skull base without contrast. Thi s exam was performed according to our departmental dose-optimization program, which includes automate d exposure control, adjustment of the mA and/or kV according to patient size and/or use of iterative reconstruction technique. FINDINGS: No acute intracranial hemorrhage identified. No mass, mass effect, shift of the midline, a bnormal extra-axial fluid collection or CT evidence of acute ischemic change identified. The ventricu lar system and sulcal spaces are mildly enlarged compatible with mild cerebral atrophy. Scattered a reas of hypodensity throughout the supratentorial white matter are nonspecific and may be related to chronic small vessel ischemic change. The visualized paranasal sinuses and mastoid air cells are well aerated. No skull fracture identifi ed. Visualized orbits and globes are unremarkable. Atherosclerotic calcification of the intracranial internal carotid arteries. IMPRESSION: 1. No acute intracranial abnormality by CT criteria. Electronically signed by: Abner 01/05/2021 2:59 AM CDT Due to temporary technical issues with the PACS/Fluency reporting system, reports are being signed by the in house radiologist without review as a courtesy to ensure prompt reporting. The interpreting r adiologist is fully responsible for the content of the report.
--- NOTE | 2021-01-05 15:12 | P.CNS ---
Date of Consult: 01/05/21 Reason for Consult: Hyponatremia Requesting Physician: Richard Dent Chief Complaint: COPD exacerbation, dizziness History of Present Illness: 80-year-old male with history of chronic systolic congestive heart failure, COPD, CKD 3, chronic atrial fibrillation presents emergency department for dizziness. Patient reports that he got up to the bathroom around 2300 and was having trouble walking down the hallway. Patient reports periods of dizziness associated with movement of his head, patient also notes some shortness of breath. Patient evaluated in the emergency department, sodium 126, patient was some degree of chronic hyponatremia, sodium always appears to be in the mid to 120s to low 130s, chloride 92 creatinine 1.47 GFR 46 which is similar to patient's baseline B CANDY PULLER elevated 8973 hemoglobin 11 chest x-ray suggest volume overload pattern. Patient with expiratory wheezing refractory to initial treatment with steroids, nebulizers in the emergency department. Patient with many previous admissions for COPD/CHF/hyponatremia. 02:29 This 80 yrs old Male presents to ER via EMS with complaints of Dizziness. mh7 02:29 The patient presents with dizziness, sense of spinning. Onset: The symptoms/episode mh7 began/occurred last night, at 23:00. Context: occurred at home, occurred while the patient was walking, just prior to the episode the patient experienced no apparent symptoms. Modifying factors: The symptoms are alleviated by lying down, the symptoms are aggravated by movement of head, standing up, changing position. Associated signs and symptoms: Pertinent negatives: abdominal pain, agitation, ataxia, blurred vision, chest pain, combativeness, confusion, diaphoresis, focal weakness, head injury, headache, nausea, near-syncope, numbness, palpitations, seizure, shortness of breath, syncope, tingling, vomiting. Severity of symptoms: At their worst the sy mptoms were moderate today, in the emergency department the symptoms are unchanged. Allergies No Known Allergies Allergy (Verified 10/11/20 23:03) Home Medications: Albuterol Sulfate [Ventolin Hfa] 18 inh IN BID 11/13/20 Potassium Chloride [Micro-K] 10 meq PO M,W,F 11/13/20 Primidone 250 mg PO QID 11/13/20 Sacubitril/Valsartan [Entresto 97 mg-103 mg Tablet] 1 each PO BID 11/13/20 Furosemide 40 mg PO BID 30 Days #60 tablet 12/05/20 Albuterol Neb [Proventil 0.083% Neb Soln] 2.5 mg NEB Q6HP PRN #120 amp 12/10/20 Arformoterol Tartrate [Brovana] 15 mcg NEB BIDRESP #60 vial.neb 12/10/20 Metoprolol Succinate [Toprol Xl*] 25 mg PO DAILY #30 tab 12/10/20 predniSONE [Deltasone*] 40 mg PO DAILY #50 tab 12/10/20 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 -: Pacemaker/defibrillator Psychosocial/ Personal History: 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 , 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 - Family History Father Medical History: Heart disease Mother Medical History: Heart disease, Hypertension, Diabetes, Cancer - Social History Smoking Status: Unknown if ever smoked Alcohol use: No CD- Drugs: No Caffeine use: No Place of Residence: Home Review of Systems 10-point ROS is otherwise unremarkable General: Weakness, Malaise Cardiovascular: Edema Neurological: Weakness Physical Examination Temp Pulse Resp BP Pulse Ox 97.9 F 60 17 118/70 96 01/05/21 08:00 01/05/21 09:00 01/05/21 08:00 01/05/21 09:00 01/05/21 08:00 General: In no apparent distress, Oriented x3, Cooperative HEENT: Atraumatic Neck: Supple Respiratory: Normal air movement Cardiovascular: No edema, Regular rate/rhythm Gastrointestinal: Soft and benign, Non-distended Musculoskeletal: No clubbing, No contractures Integumentary: No rashes, No cyanosis Neurological: Normal speech Laboratory Data (last 24 hrs) 01/05/21 02:34: PT 13.0 H, INR 1.13 01/05/21 02:34: WBC 3.70 L, Hgb 11.0 L, Hct 30.6 L, Plt Count 156 01/05/21 02:34: Sodium 126 L, Potassium 4.2, BUN 32 H, Creatinine 1.47 H, Glucose 100, Magnesium 1.6 L, Total Bilirubin 0.5, AST 22, ALT 23, Alkaline Phosphatase 81 Imagings Data: EXAM DESCRIPTION: RAD - Chest Single View - 01/05/2021 2:59 am CLINICAL HISTORY: dizziness, COPD, heart failure history COMPARISON: December 15, December 04 TECHNIQUE: AP portable chest image was obtained 01/05/2021 2:59 am . FINDINGS: Lung volumes are reduced compared to prior imaging. The fullness of the right hilum and infrahilar region accentuated by the low lung volumes. Defibrillator is in place. Cardiomegaly is present. Interstitial opacification does appear increased greater than expected for the shallow inspiration affects. No measurable pleural effusion and no pneumothorax. No acute bony abnormality seen. No acute aortic findings suspected. IMPRESSION: CHF/volume overload findings accentuated by low lung volumes. Fullness around the right hilar and infrahilar region again noted not clearly different from comparison. Conclusions/Impression: A/P: Continue the current POC and Medications other than the changes listed. AM Labs PRN. Recommend daily weight. Please see the orders for complete de tails. CKD III with proteinuria -No NSAIDs Hyponatremia, A/C -Continue furosemide Hypomagnesemia -Replete with IV magnesium -Start Slo-mag HTN with CKD/ CHF -Continue Metoprolol Systolic CHF, A/C -Continue furosemide -Continue Metoprolol Anemia in chronic illness -Monitor H&H Thank you kindly for the consultation. Case reviewed with Dr. Dent.
--- NOTE | 2021-01-05 17:36 | P.PN ---
Subjective Date of Service: 01/05/21 Chief Complaint: COPD exacerbation, dizziness Subjective: No new changes (feels breathing is slightly better, still wheezing and tachypneic, feels unsteady on feet) Review of Systems 10-point ROS is otherwise unremarkable Physical Examination - Vital Signs Temperature: 98.1 F Blood Pressure: 122/71 Pulse: 61 Respirations: 18 Pulse Ox (%): 98 - Studies Laboratory Data (last 24 hrs) 01/05/21 02:34: PT 13.0 H, INR 1.13 01/05/21 02:34: WBC 3.70 L, Hgb 11.0 L, Hct 30.6 L, Plt Count 156 01/05/21 02:34: Sodium 126 L, Potassium 4.2, BUN 32 H, Creatinine 1.47 H, Glucose 100, Magnesium 1.6 L, Total Bilirubin 0.5, AST 22, ALT 23, Alkaline Phosphatase 81 Assessment & Plan Physician Review Additional Text: Physical Exam General: Alert, Oriented x3 HEENT: normal conjunctiva, sclera anicteric Pulm: shallow inspiration, b/l crackles with expiratory wheeze CV: Regular rate/rhythm, Normal S1 S2 Abd: Normal bowel sounds, No tenderness Ext: No tenderness Integumentary: No rashes Neurological: Normal speech, Normal strength at 5/5 x4 extr, Normal tone Problem List acute on chronic COPD with exacerbation Acute on chronic systolic congestive heart failure acute on chronic hyponatremia CKD 3 continue steroids, nebs, mag replaced pulm consulted with tacypnea on exam continue home cardiac medications, lasix renal function appears near baseline hypontramia is chronic, continue lasix, nephrology consulted PT consulted Code: DNR Dispo: anticipate dc home in next ~24hrs, pending PT eval, ambulating ok, improved respiratory status Time Spent Managing Pts Care (In Minutes): 35
[2021-01-05] MEDS: SODIUM CHLORIDE 1 GM TAB PO SCH ×2 (21:57→23:21)
[2021-01-05] MEDS: MAGNESIUM CHLORIDE 64 MG TAB PO SCH (21:58)
[2021-01-05 22:23] VITALS: O2SAT 98
[2021-01-06] MEDS: ALBUTEROL 2.5 MG/3 ML NEB SOL NEB SCH ×4 (01:42→13:02)
[2021-01-06] MEDS: IPRATROPIUM BROM 0.5MG/2.5ML NEB SCH ×4 (01:42→13:02)
[2021-01-06] MEDS: METOPROLOL XL 25 MG TAB PO SCH (05:38)
[2021-01-06 05:40] LABS: Absolute Lymphocytes (CBC) 0.2 K/uL (0.7-4.9); Basophils % 0.6 % (0-1.3); Hematocrit 28.4 % (39.6-49.0); Lymphocytes % 7.9 % (15.3-44.8); RBC Red Blood Cell Count 3.05 M/uL (4.33-5.43)
[2021-01-06 05:59] LABS: Bilirubin Total 0.4 mg/dL (0.2-1.0); Phosphorus 3.6 mg/dL (2.5-4.9); Potassium 4.2 mmol/L (3.5-5.1); Protein, Total 5.9 g/dL (6.4-8.2); Uric Acid 9.2 mg/dL (3.5-7.2)
[2021-01-06] MEDS: MAGNESIUM CHLORIDE 64 MG TAB PO SCH (09:49)
[2021-01-06] MEDS: predniSONE 20 MG TAB PO SCH (09:49)
[2021-01-06] MEDS: HEPARIN 5000 UNIT/ML 1 ML VIAL SQ SCH (09:49)
[2021-01-06] MEDS: FUROSEMIDE 40 MG TABLET PO SCH ×2 (09:49→16:29)
[2021-01-06] MEDS: DULERA 100/5 (MOMETASONE/FORMOTEROL) INHALER IH SCH (09:50)
[2021-01-06 11:28] LABS: Urine Appearance CLEAR (Clear); Urine Bilirubin NEGATIVE (Negative); Urine Blood TRACE (Negative); Urine Color YELLOW (Yellow); Urine Glucose NEGATIVE (Negative); Urine Protein 1+ (Negative); Urine Urobilinogen 0.2 mg/dL (0.2-1.0); Urine pH 6.5 (5.0-7.0)
[2021-01-06 12:27] LABS: Urine Bacteria NONE SEEN /HPF (NONE SEEN); Urine RBC <5 /HPF (NONE SEEN)
[2021-01-06 13:54] VITALS: TEMP 97.4
--- NOTE | 2021-01-06 13:55 | P.DS ---
Admission Date: 01/05/21 Discharge Date: 01/06/21 Disposition: [facility]/HOME HEALTH CARE Discharge Condition: FAIR Reason for Admission: COPD exacerbation, dizziness Consultations: Pulmonary-Dr. Gonzalez. - Problems (1) Dizziness Current Visit: Yes Status: Acute (2) Acute on chronic systolic CHF (congestive heart failure) Onset Date: 11/08/17 Current Visit: No Status: Acute (3) COPD exacerbation Current Visit: No Status: Acute (4) Chronic atrial fibrillation Current Visit: No Status: Acute Brief History of Present Illness: 80-year-old male with history of chronic systolic congestive heart failure, COPD, CKD 3, chronic atrial fibrillation, multiple hospitalizations presents emergency department for report of dizziness and increasing shortness of breath. His sodium level in the ED was 126. Chest x-ray suggested volume overload pattern. Patient with expiratory wheezing refractory to initial treatment with steroids, nebulizers in the emergency department. He was hospitalized for further management. Hospital Course: Patient given IV Lasix for CHF exacerbation. He was also treated for COPD exacerbation with steroids and bronchodilators. Patient was seen in consultation by pulmonary Dr. Gonzalez. He was also seen in consultation by nephrology Dr. Powell for slight increase in serum creatinine. Patient's symptoms improved significantly. He was up and ambulating in the hallway with no symptoms within 24 hours. Patient has clinically improved. He states his shortness of breath has resolved and he is back to baseline. Patient deemed clinically stable for discharge. Vital Signs/Physical Exam: Temp Pulse Resp BP Pulse Ox 97.4 F 60 18 160/81 H 98 01/06/21 12:00 01/06/21 12:00 01/06/21 12:00 01/06/21 12:00 01/06/21 12:00 General: Alert, In no apparent distress, Oriented x3 HEENT: Mucous membr. moist/pink Neck: Supple Respiratory: Clear to auscultation bilaterally, Normal air movement Cardiovascular: No edema, Normal S1 S2, Irregular heart rate/rhythm Gastrointestinal: Normal bowel sounds, Soft and benign, Non-distended, No tenderness Musculoskeletal: No swelling Neurological: Normal strength at 5/5 x4 extr, Cranial nerves 3-12 intact Laboratory Data at Discharge: WBC 3.10 K/uL (4.3-10.9) L D 01/06/21 05:19 Hgb 9.9 g/dL (13.6-17.9) L 01/06/21 05:19 Hct 28.4 % (39.6-49.0) L 01/06/21 05:19 Plt Count 161 K/uL (152-406) 01/06/21 05:19 PT 13.0 SECONDS (9.5-12.5) H 01/05/21 02:34 INR 1.13 01/05/21 02:34 Sodium 131 mmol/L (136-145) L 01/06/21 05:19 Potassium 4.2 mmol/L (3.5-5.1) 01/06/21 05:19 BUN 41 mg/dL (7-18) H 01/06/21 05:19 Creatinine 1.80 mg/dL (0.55-1.3) H 01/06/21 05:19 Glucose 138 mg/dL (74-106) H 01/06/21 05:19 Uric Acid 9.2 mg/dL (3.5-7.2) H 01/06/21 05:19 Phosphorus 3.6 mg/dL (2.5-4.9) 01/06/21 05:19 Magnesium 2.0 mg/dL (1.8-2.4) 01/06/21 05:19 Total Bilirubin 0.4 mg/dL (0.2-1.0) 01/06/21 05:19 AST 17 U/L (15-37) 01/06/21 05:19 ALT 20 U/L (12-78) 01/06/21 05:19 Alkaline Phosphatase 62 U/L (45-117) 01/06/21 05:19 Home Medications: Albuterol Sulfate [Ventolin Hfa] 18 inh IN BID 11/13/20 Potassium Chloride [Micro-K] 10 meq PO M,W,F 11/13/20 Primidone 250 mg PO QID 11/13/20 Sacubitril/Valsartan [Entresto 97 mg-103 mg Tablet] 1 each PO BID 11/13/20 Furosemide 40 mg PO BID 30 Days #60 tablet 12/05/20 Albuterol Neb [Proventil 0.083% Neb Soln] 2.5 mg NEB Q6HP PRN #120 amp 12/10/20 Arformoterol Tartrate [Brovana] 15 mcg NEB BIDRESP #60 vial.neb 12/10/20 Metoprolol Succinate [Toprol Xl*] 25 mg PO DAILY #30 tab 12/10/20 predniSONE [Deltasone*] 40 mg PO DAILY #50 tab 12/10/20 Physician Discharge Instructions: PROBLEM: COPD Exacerbation GOAL: Clear understanding of disease process INSTRUCTIONS: - Follow up with your Primary Care Provider in 1 week. - Follow up with Dr. Gonzalez in 1-2 weeks. - Return to the ER if your symptoms worsen. - Call the 2nd floor at if you have any questions regarding your hospital stay. Diet: Heart healthy Activity: As tolerated [facility] Services Needed: Home Health Name of Company: [employer] Date or Referral: IMMUNIZATION Influenza Vaccine Indicated: Influenza Vaccine Given: Date Given: Pneumonia Vaccine Indicated: Yes Pneumonia Vaccine Given: Date Given: Diet: AHA Activity: Ad brianna Followup: Everardo Gonzalez MD [ACTIVE - CAN ADMIT] - 1-2 Weeks (Follow up in office in 1-2 weeks. Call to schedule an appointment.)
[2021-01-06 17:17] VITALS: BP 169/81
--- NOTE | 2021-01-06 20:16 | P.PN ---
Date of Service: 01/06/21 Vital Signs Temp Pulse Resp BP Pulse Ox 97.4 F 60 17 169/81 H 97 01/06/21 16:00 01/06/21 16:00 01/06/21 16:00 01/06/21 16:00 01/06/21 16:00 Assessment/ Plan: Nephrology No acute cardiac or pulmonary complaints. No CP or SOB. +GUERRERO Feeling better today. No acute events overnight. Vitals, medications, blood work and imaging reviewed in the chart. General: In no apparent distress, Oriented x3, Cooperative HEENT: Atraumatic Neck: Supple Respiratory: Normal air movement Cardiovascular: No edema, Regular rate/rhythm Gastrointestinal: Soft and benign, Non-distended Musculoskeletal: No clubbing, No contractures Integumentary: No rashes, No cyanosis Neurological: Normal speech Laboratory Data (last 24 hrs) 01/05/21 02:34: PT 13.0 H, INR 1.13 01/05/21 02:34: WBC 3.70 L, Hgb 11.0 L, Hct 30.6 L, Plt Count 156 01/05/21 02:34: Sodium 126 L, Potassium 4.2, BUN 32 H, Creatinine 1.47 H, Glucose 100, Magnesium 1.6 L, Total Bilirubin 0.5, AST 22, ALT 23, Alkaline Phosphatase 81 Imagings Data: EXAM DESCRIPTION: RAD - Chest Single View - 01/05/2021 2:59 am CLINICAL HISTORY: dizziness, COPD, heart failure history COMPARISON: December 15, December 04 TECHNIQUE: AP portable chest image was obtained 01/05/2021 2:59 am . FINDINGS: Lung volumes are reduced compared to prior imaging. The fullness of the right hilum and infrahilar region accentuated by the low lung volumes. Defibrillator is in place. Cardiomegaly is present. Interstitial opacification does appear increased greater than expected for the shallow inspiration affects. No measurable pleural effusion and no pneumothorax. No acute bony abnormality seen. No acute aortic findings suspected. IMPRESSION: CHF/volume overload findings accentuated by low lung volumes. Fullness around the right hilar and infrahilar region again noted not clearly different from comparison. Conclusions/Impression: A/P: Continue the current POC and Medications other than the changes listed. AM Labs PRN. Recommend daily weight. Please see the orders for complete details. CKD III with proteinuria -No NSAIDs Hyponatremia, A/C -Continue furosemide Hypomagnesemia -Continue Slo-mag HTN with CKD/ CHF -Continue Metoprolol Systolic CHF, A/C -Continue furosemide -Continue Metoprolol -Start CQ10 Anemia in chronic illness -Monitor H&H
== END 2021-01-06 18:00 | disposition home health service (06) ==
LOC: ER 02:15 → ERHOLD 04:39 → 2ND 20:49
PROVIDERS: ADMIT Hospitalist; ATTEND Internal Medicine
DX: R42 Dizziness and giddiness (principal); J44.1 Chronic obstructive pulmonary disease with (acute) exacerbation; I48.20 Chronic atrial fibrillation, unspecified; I13.0 Hypertensive heart and chronic kidney disease with heart failure and stage 1 through stage 4 chronic kidney disease, or unspecified chronic kidney disease; I50.23 Acute on chronic systolic (congestive) heart failure; N18.30 Chronic kidney disease, stage 3 unspecified; E87.1 Hypo-osmolality and hyponatremia; E83.42 Hypomagnesemia; D63.1 Anemia in chronic kidney disease; Z20.822 Contact with and (suspected) exposure to COVID-19; Z66 Do not resuscitate; Z95.810 Presence of automatic (implantable) cardiac defibrillator; E78.5 Hyperlipidemia, unspecified; I34.0 Nonrheumatic mitral (valve) insufficiency; G20 Parkinson's disease
CPT/HCPCS: 96365; 93005; 85025 ×2; 81001; 80048; 36415 ×2; 83735 ×2; 84100; 85610; 84300; 80076; 84550; 84443; 84484; 84439; 80053; 82533; 83880 ×2; 83930 ×2; 83935; 70450; 71045; 97161; 94640 ×2; 96375; 99285; 96366; U0003; J1940; J1644 ×3; J3475 ×2; J2930; G0378 ×3; 81003; 81015; J7512; J7606

== ENCOUNTER 2021-01-28 23:37 | Observation (INO) | payer OTHER ==
--- OUTSIDE RECORDS SUMMARY | 2021-01-28 23:40 | XMS REPORT | Continuity of Care Document ---
:1940 Author Organization [facility] t Address [address] [place] [address] Care Team Providers Name Role Phone Eryn [...] [facility] 10[facility]04 [facility] 00:00: [address] No Known DA Active U [facility] 05-20 [facility] 00:00: [address] Medications This patient has no known medications. Procedures This patient has no known procedures. Encounters Start End Encounter Admission Attending Care Care Encounter Source Date/Time Date/Time Type Type Clinicians Facility Department ID 2020-06-05 2020-06-05 Transition Mary Kay Cerna [id number] 00:00:00 00:00:00 of Care Cody Stover [id number] Clarisa [id number] 2020-05-29 2020-06-04 [facility] [id number] 18:50:00 17:57:00 Encounter Arben Julien [id number] Ling [id number] [place] [id number] Results This patient has no known results.
[2021-01-29] MEDS ORDERED: LEVALBUTEROL 1.25 MG/3 ML NEB ONE (00:04)
[2021-01-29 00:23] LABS: Absolute Lymphocytes (CBC) 0.8 K/uL (0.7-4.9); Basophils % 1.4 % (0-1.3); Hematocrit 29.5 % (39.6-49.0); Lymphocytes % 16.8 % (15.3-44.8); MPV 8.1 fL (7.6-11.3); RBC Red Blood Cell Count 3.18 M/uL (4.33-5.43)
[2021-01-29 00:35] LABS: Potassium 3.7 mmol/L (3.5-5.1); Troponin (Emerg Dept Use Only) 0.04 ng/mL (0.0-0.045)
[2021-01-29] MEDS ORDERED: MAGNESIUM SULFATE 1 gm IVPB 1 GM/100 ML BAG IV ONE (00:37)
--- NOTE | 2021-01-29 01:01 | ER ---
Nurse's Notes [facility] Name: Jimbo Cat Age: 80 yrs Sex: Male : 1940 Arrival Date: 01/28/2021 Time: 23:39 Bed 6 Private MD: Diagnosis: Unspecified combined systolic (congestive) and diastolic (congestive) heart failure;Chronic obstructive pulmonary disease with (acute) exacerbation;Dyspnea, unspecified Presentation: 01/28 23:41 Chief complaint: EMS states: SOB, and cough for a week now. Pt denies any fever. Coronavirus screen: difficulty breathing, shortness of breath, Client presents with at least one sign or symptom that may indicate coronavirus-19. Standard/surgical mask placed on the client. Ebola Screen: Patient negative for fever greater than or equal to 101.5 degrees Fahrenheit, and additional compatible Ebola Virus Disease symptoms Patient denies exposure to infectious person. Initial Sepsis Screen: Does the patient meet any 2 criteria? RR > 20 per min. Does the patient have a suspected source of infection? Yes: Productive cough/pneumonia. Risk Assessment: Do you want to hurt yourself or someone else? Patient reports no desire to harm self or others. Onset of symptoms was January 28, 2021. 23:41 Method Of Arrival: EMS: [facility] 23:41 Acuity: SYDNIE 3 23:42 Care prior to arrival: Medication(s) given: Albuterol Neb x 1, Atrovent Neb x 1, Solumedrol 125 mg IV initiated. 18 GA, in the right antecubital area. Historical: - Allergies: 23:44 No Known Allergies; - PMHx: 23:44 Alcoholism; COPD; CVA; Diabetes; HEART FAILURE; Hypertension; possible dementia; - Immunization history:: Adult Immunizations up to date. - Social history:: Smoking status: Patient/guardian denies using. - Family history:: not pertinent. - Hospitalizations: : No recent hospitalization is reported. Screenin:40 Abuse screen: Denies threats or abuse. Nutritional screening: No deficits noted. jb4 Tuberculosis screening: No symptoms or risk factors identified. Fall Risk None identified. Assessment: 23:40 General: Appears in no apparent distress. uncomfortable, Behavior is calm, cooperative. jb4 Pain: Denies pain. Neuro: Level of Consciousness is awake, alert, obeys commands, Oriented to person, place, time, situation. Cardiovascular: Patient's skin is warm and dry. Respiratory: Airway is patent Respiratory effort is even, labored, Respiratory pattern is symmetrical, tachypnea Breath sounds with wheezes bilaterally. GI: No signs and/or symptoms were reported involving the gastrointestinal system. : No signs and/or symptoms were reported regarding the genitourinary system. EENT: No signs and/or symptoms were reported regarding the EENT system. Derm: Skin is intact, Skin is pink, warm \T\ dry. Musculoskeletal: Circulation, motion, and sensation intact. Range of motion: intact in all extremities. 01/29 01:00 Reassessment: Patient appears in no apparent distress at this time. Patient and/or jb4 family updated on plan of care and expected duration. Pain level reassessed. Patient is alert, oriented x 3, equal unlabored respirations, skin warm/dry/pink. 02:00 Reassessment: Patient appears in no apparent distress at this time. Patient and/or jb4 family updated on plan of care and expected duration. Pain level reassessed. Patient is alert, oriented x 3, equal unlabored respirations, skin warm/dry/pink. 02:46 Reassessment: Patient appears in no apparent distress at this time. Patient and/or jb4 family updated on plan of care and expected duration. Pain level reassessed. Patient is alert, oriented x 3, equal unlabored respirations, skin warm/dry/pink. 02:46 Respiratory: Airway is patent Respiratory effort is even, unlabored, Respiratory jb4 pattern is regular, symmetrical, Breath sounds are clear bilaterally. Vital Signs: 01/28 23:41 BP 156 / 94; Pulse 60; Resp 24; Temp 98.2; Pulse Ox 100% on R/A; Weight 64.86 kg; Height 5 ft. 7 in. (170.18 cm); 01/29 01:22 BP 126 / 55; Pulse 61; Resp 18; Pulse Ox 98% on R/A; jb4 02:19 BP 129 / 58; Pulse 60; Resp 16; Pulse Ox 99% on R/A; wh 01/28 23:41 Body Mass Index 22.40 (64.86 kg, 170.18 cm) ED Course: 05/12 23:39 Patient arrived in ED. rn 23:39 Rhys Dent MD is Attending Physician. rn 23:40 Patient has correct armband on for positive identification. Bed in low position. Call jb4 light in reach. Side rails up X 1. Pulse ox on. NIBP on. 23:42 Triage completed. 23:44 Arm band placed on right wrist. 01/29 00:05 Edwin Higgins, RN is Primary Nurse. jb4 00:30 XRAY CXR (1 view) In Process Unspecified. EDMS 01:00 Jarrett Tan DO is Hospitalizing Provider. rn 01:14 CT Soft Tissue Neck W/contr In Process Unspecified. EDMS 02:19 No provider procedures requiring assistance completed. Patient admitted, IV remains in place. Administered Medications: 00:06 Drug: Xopenex (levalbuterol) (3) 1.25 mg Route: Inhalation; jb4 00:25 Drug: Magnesium Sulfate 1 grams Route: IVPB; Infused Over: 1 hrs; Site: right antecubital; 02:20 Follow up: Response: No adverse reaction; IV Status: Completed infusion 01:16 Drug: Lasix (furosemide) 60 mg Route: IVP; Site: right antecubital; jb4 02:20 Follow up: Response: No adverse reaction Outcome: 01:01 Decision to Hospitalize by Provider. rn 02:19 Admitted to Med/surg accompanied by tech, via stretcher, room 219, with oxygen, with chart, Report called to Carlos Enrique Vidales RN 02:19 Condition: stable 02:19 Instructed on the need for admit. 02:46 Patient left the ED. jb4 Signatures: Dispatcher [employer] EDWA Rhys Dent MD MD rn Bryson, James, RN SABINE jb4 Yarely Birmingham RN RN
--- NOTE | 2021-01-29 01:02 | EDPHYS ---
Physician Documentation [facility] Name: Jimbo Cat Age: 80 yrs Sex: Male : 1940 Arrival Date: 01/28/2021 Time: 23:39 Bed 6 Private MD: ED Physician Rhys Dent HPI: 01/28 23:44 This 80 yrs old Male presents to ER via EMS with complaints of sob. rn 23:44 The patient has shortness of breath at rest, with light activity. Onset: The rn symptoms/episode began/occurred 1 week(s) ago. Duration: The symptoms are continuous. 23:46 The patient's shortness of breath is aggravated by exertion. Associated signs and rn symptoms: Pertinent positives: non-productive cough, Pertinent negatives: fever, hemoptysis. Severity of symptoms: At their worst the symptoms were moderate in the emergency department the symptoms have improved. The patient has experienced similar episodes in the past. The patient has not recently seen a physician. Reports sob for 1 week, + mild non-productive cough, no fever, seen by home health yesterday and concerned for pneumonia, no abx given. No fever. + generalized weakness. No hemoptysis. Given solumedrol and albuterol by EMS with some improvement. . Historical: - Allergies: 23:44 No Known Allergies; wh - PMHx: 23:44 Alcoholism; COPD; CVA; Diabetes; HEART FAILURE; Hypertension; possible dementia; wh - Immunization history:: Adult Immunizations up to date. - Social history:: Smoking status: Patient/guardian denies using. - Family history:: not pertinent. - Hospitalizations: : No recent hospitalization is reported. ROS: 23:46 Constitutional: Negative for fever, chills, and weight loss, Eyes: Negative for injury, rn pain, redness, and discharge, ENT: Negative for injury, pain, and discharge, Neck: Negative for injury, pain, and swelling, Cardiovascular: Negative for chest pain, palpitations Respiratory: + cough and sob Abdomen/GI: Negative for abdominal pain, nausea, vomiting, diarrhea, and constipation, Back: Negative for injury and pain, MS/Extremity: Negative for injury and deformity, Skin: Negative for injury, rash, and discoloration, Neuro: Negative for headache, numbness, tingling, and seizure. Exam: 23:46 Constitutional: This is a well developed, well nourished patient who is awake, alert, rn mild tachypnea Head/Face: Normocephalic, atraumatic. ENT: NO oral swelling, MMM Neck: No neck swelling Cardiovascular: Regular rate and rhythm. No pulse deficits. Respiratory: + mild to moderate tachypnea, faint exp wheezing upper lung osman Abdomen/GI: Soft, non-tender Skin: Warm, dry MS/ Extremity: Pulses equal, no cyanosis. Neurovascular intact. Full, normal range of motion. Equal circumference. Neuro: Awake and alert, GCS 15 Vital Signs: 23:41 BP 156 / 94; Pulse 60; Resp 24; Temp 98.2; Pulse Ox 100% on R/A; Weight 64.86 kg; wh Height 5 ft. 7 in. (170.18 cm); 01/29 01:22 BP 126 / 55; Pulse 61; Resp 18; Pulse Ox 98% on R/A; jb4 02:19 BP 129 / 58; Pulse 60; Resp 16; Pulse Ox 99% on R/A; 01/28 23:41 Body Mass Index 22.40 (64.86 kg, 170.18 cm) MDM: 01/28 23:39 Patient medically screened. rn 01/29 00:01 ED course: So significant change in ECG, + pacemaker, with widened QRS, compared to rn last 3, only change is slightly more depressed ST segment in V3. 00:59 Differential diagnosis: Bronchitis CHF exacerbation, Chronic Obstructive Pulmonary rn Disease Myocardial Infarction pneumonia, Pneumothorax pulmonary edema, Sepsis. Data reviewed: vital signs, nurses notes, lab test result(s), EKG, radiologic studies, plain films, and as a result, I will admit patient. Counseling: I had a detailed discussion with the patient and/or guardian regarding: the historical points, exam findings, and any diagnostic results supporting the discharge/admit diagnosis, lab results, radiology results, the need for further work-up and treatment in the hospital. Response to treatment: the patient's symptoms have mildly improved after treatment, and as a result, I will admit patient. Admission orders: after a detailed discussion of the patient's condition and case, the admit orders are written by me. 01/28 23:41 Order name: Blood Culture Adult (2) rn 01/28 23:41 Order name: BMP rn 01/28 23:41 Order name: CBC with Diff rn 01/28 23:41 Order name: NT PRO-BNP rn 01/28 23:41 Order name: Troponin (emerg Dept Use Only) rn 01/28 23:41 Order name: Procalcitonin rn 01/28 23:41 Order name: Lactate rn 01/28 23:42 Order name: Blood Culture EDMS 01/28 23:42 Order name: Basic Metabolic Panel; Complete Time: 00:38 EDMS 01/28 23:42 Order name: CBC with Automated Diff EDMS 01/28 23:42 Order name: NT PRO-BNP; Complete Time: 00:38 EDMS 01/28 23:42 Order name: Troponin (Emerg Dept Use Only); Complete Time: 00:38 EDMS 01/28 23:42 Order name: Procalcitonin EDMA 01/28 23:41 Order name: XRAY CXR (1 view) rn 01/28 23:41 Order name: EKG; Complete Time: 23:42 rn 01/28 23:41 Order name: Cardiac monitoring; Complete Time: 00:06 rn 01/28 23:41 Order name: EKG - Nurse/Tech; Complete Time: 00:06 rn 01/28 23:41 Order name: IV Saline Lock; Complete Time: 00:06 rn 01/28 23:41 Order name: Labs collected and sent; Complete Time: 00:06 rn 01/28 23:41 Order name: O2 Per Protocol; Complete Time: 00:06 rn 01/28 23:41 Order name: O2 Sat Monitoring; Complete Time: 00:06 rn 01/28 23:42 Order name: Lactate; Complete Time: 00:38 EDMS 01/29 00:34 Order name: Manual Differential EDMS 01/29 00:44 Order name: CT Soft Tissue Neck W/contr rn 01/29 01:36 Order name: SARS-COV-2 RT PCR EDMS Administered Medications: 00:06 Drug: Xopenex (levalbuterol) (3) 1.25 mg Route: Inhalation; jb4 00:25 Drug: Magnesium Sulfate 1 grams Route: IVPB; Infused Over: 1 hrs; Site: right wh antecubital; 02:20 Follow up: Response: No adverse reaction; IV Status: Completed infusion 01:16 Drug: Lasix (furosemide) 60 mg Route: IVP; Site: right antecubital; jb4 02:20 Follow up: Response: No adverse reaction Disposition: 01/29/21 01:01 Hospitalization ordered by Jarrett Tan for Inpatient Admission. Preliminary diagnosis are Unspecified combined systolic (congestive) and diastolic (congestive) heart failure, Chronic obstructive pulmonary disease with (acute) exacerbation, Dyspnea, unspecified. - Bed requested for Telemetry/MedSurg (Inpatient). - Status is Inpatient Admission. jb4 - Condition is Stable. - Problem is an acute exacerbation. - Symptoms have improved. Signatures: Dispatcher [employer] [facility] Rhys Dent MD MD rn Lasagna, Tonya RN RN tl1 Edwin Higgins RN RN jb4 Yarely Birmingham RN RN Corrections: (The following items were deleted from the chart) 00:52 01/28 23:42 CORONAVIRUS+MR.LAB.BRZ ordered. [facility] 01/29 02:01 01:01 Hospitalization Ordered by Jarrett Tan DO for Inpatient Admission. Preliminary tl1 diagnosis is Unspecified combined systolic (congestive) and diastolic (congestive) heart failure; Chronic obstructive pulmonary disease with (acute) exacerbation; Dyspnea, unspecified. Bed requested for Telemetry/MedSurg (Inpatient). Status is Inpatient Admission. Condition is Stable. Problem is an acute exacerbation. Symptoms have improved. rn 02:46 02:01 01/29/2021 01:01 Hospitalization Ordered by Jarrett Tan DO for Inpatient jb4 Admission. Preliminary diagnosis is Unspecified combined systolic (congestive) and diastolic (congestive) heart failure; Chronic obstructive pulmonary disease with (acute) exacerbation; Dyspnea, unspecified. Bed requested for Telemetry/MedSurg (Inpatient). Status is Inpatient Admission. Condition is Stable. Problem is an acute exacerbation. Symptoms have improved. tl1
--- NOTE | 2021-01-29 01:08 | P.HP ---
Certification for Inpatient Patient admitted to: Observation With expected LOS: <2 Midnights Patient will require the following post-hospital care: None Practitioner: I am a practitioner with admitting privileges, knowledge of patient current condition, hospital course, and medical plan of care. Services: Services provided to patient in accordance with Admission requirements found in Title 42 Section 412.3 of the Code of Federal Regulations Patient History Date of Service: 01/29/21 Reason for admission: COPD exacerbation History of Present Illness: 80-year-old male with history of chronic systolic congestive heart failure, COPD, CKD 3, chronic hyponatremia presents emergency department for shortness of breath. Patient reports progressive shortness breath over the course of the last 1 week. Patient has had multiple hospitalizations for similar symptoms in the past, is currently on prednisone 40 mg daily at home and has been taking his nebulizer treatments 3 times per day without significant improvement. Patient also on Lasix 40 mg b.i.d.. Patient was given 2 rounds of nebulizer treatments, IV steroids, IV magnesium in the emergency department still with tachypnea and expiratory wheezing. Patient also with some noted upper airway noises which patient has not had previously during admission, CT soft tissue neck pending to evaluate further, expiratory upper airway noises significantly less pronounced when patient is speaking and not associated with any significant respiratory distress, patient saturating well on room air. Labs in the emergency department significant for hemoglobin 10.2 hematocrit 29.5 sodium 125, patient's baseline sodium ranges anywhere from 124-132 but is not typically any higher than that. creatinine 1.2 GFR 59 which is close to patient's baseline. BNP elevated 7884 again this is very similar to patient's baseline. ED provider wishes to admit for further evaluation and management of COPD exacerbation. Allergies No Known Allergies Allergy (Verified 10/11/20 23:03) Home Medications: Albuterol Sulfate [Ventolin Hfa] 18 inh IN BID 11/13/20 Potassium Chloride [Micro-K] 10 meq PO M,W,F 11/13/20 Primidone 250 mg PO QID 11/13/20 Sacubitril/Valsartan [Entresto 97 mg-103 mg Tablet] 1 each PO BID 11/13/20 Furosemide 40 mg PO BID 30 Days #60 tablet 12/05/20 Albuterol Neb [Proventil 0.083% Neb Soln] 2.5 mg NEB Q6HP PRN #120 amp 12/10/20 Arformoterol Tartrate [Brovana] 15 mcg NEB BIDRESP #60 vial.neb 12/10/20 Metoprolol Succinate [Toprol Xl*] 25 mg PO DAILY #30 tab 12/10/20 predniSONE [Deltasone*] 40 mg PO DAILY #50 tab 12/10/20 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 -: Pacemaker/defibrillator Psychosocial/ Personal History: 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 , 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 moist/pink Neck: Supple Respiratory: Diminished, Expiratory wheezes Cardiovascular: Normal S1 S2, Irregular heart rate/rhythm (Paced rhythm) Capillary refill: <2 Seconds Gastrointestinal: Normal bowel sounds Musculoskeletal: No contractures, No erythema, No tenderness Integumentary: No significant lesion, No tenderness/swelling, No erythema Neurological: Normal speech, Normal strength at 5/5 x4 extr, Normal tone, Sensation intact - Studies Laboratory Data (last 24 hrs) 01/28/21 23:50: WBC 4.80, Hgb 10.2 L, Hct 29.5 L, Plt Count 167 01/28/21 23:50: Sodium 125 L, Potassium 3.7, BUN 26 H, Creatinine 1.20, Glucose 110 H Assessment and Plan - Plan Assessment COPD with exacerbation Chronic systolic congestive heart failure Chronic hyponatremia CKD 3 Hypertension, hyperlipidemia, Parkinson's Plan COPD with exacerbation: Continue with IV steroids, inhalers, nebulizer treatments. Pulmonology consult for additional assistance, patient with relatively frequent COPD exacerbations, likely worsening chronically. Patient does not appear to need home oxygen given his saturations but he is tachypneic/dyspneic with significant expiratory wheezes. DVT prophylaxis with heparin 5000 units twice daily. Chronic systolic congestive heart failure: Patient currently taking entresto, metoprolol, Lasix 40 mg p.o. b.i.d., will continue these medications. Appears stable without significant peripheral edema. Chronic hyponatremia: Continue Lasix, similar to baseline sodium level. Continue fluid restriction. CKD 3: Stable, continue with treatment as above, consult nephrology for worsening renal function. Hypertension, hyperlipidemia, Parkinson's: Stable, continue home medications. Discharge Plan: Home Plan to discharge in: 24 Hours - Advance Directives Does patient have a Living Will: Yes Does patient have a Durable POA for Healthcare: No - Code Status/Comfort Care Code Status Assessed: Yes (Full code) Critical Care: No Time Spent Managing Pts Care (In Minutes): 55
[2021-01-29 01:22] LABS: Blood Morphology Comment NOTED (NOT SEEN); Burr Cells 1+; Platelet Estimate ADEQ
[2021-01-29] MEDS ORDERED: FUROSEMIDE 40 MG/4 ML VIAL ONE (01:30)
[2021-01-29] MEDS ORDERED: FUROSEMIDE 20 MG/ 2ML VIAL ONE (01:30)
[2021-01-29] MEDS ORDERED: ACETAMINOPHEN 500 MG TAB PO PRN (02:41)
[2021-01-29] MEDS ORDERED: ONDANSETRON 4 MG/2 ML VIAL IV PRN (02:41)
[2021-01-29] MEDS: IPRATROPIUM BROM 0.5MG/2.5ML NEB SCH ×3 (03:25→14:00)
[2021-01-29] MEDS: ALBUTEROL 2.5 MG/3 ML NEB SOL NEB SCH ×3 (03:25→14:00)
[2021-01-29 04:01] VITALS: BMI 22.8
[2021-01-29 04:26] LABS: Absolute Lymphocytes (CBC) 0.2 K/uL (0.7-4.9); Basophils % 0.2 % (0-1.3); Hematocrit 30.6 % (39.6-49.0); Lymphocytes % 3.2 % (15.3-44.8); MPV 8.3 fL (7.6-11.3); RBC Red Blood Cell Count 3.26 M/uL (4.33-5.43)
[2021-01-29 04:40] LABS: Albumin 3.6 g/dL (3.4-5.0); Bilirubin Total 0.5 mg/dL (0.2-1.0); Magnesium 1.9 mg/dL (1.8-2.4); Protein, Total 7.1 g/dL (6.4-8.2)
[2021-01-29] MEDS: METHYLPREDNISOLONE 40 MG INJ IV SCH ×2 (05:02→11:38)
[2021-01-29 05:18] LABS: Blood Morphology Comment NOT SEEN (NOT SEEN); Platelet Estimate ADEQ
[2021-01-29] MEDS: FUROSEMIDE 40 MG TABLET PO SCH ×2 (08:55→13:31)
[2021-01-29] MEDS ORDERED: HEPARIN 5000 UNIT/ML 1 ML VIAL SQ SCH (09:00)
[2021-01-29] MEDS ORDERED: PNEUMOCOCCAL VACCINE 0.5 ML IMVAC ONE (09:00)
[2021-01-29] MEDS ORDERED: DULERA 100/5 (MOMETASONE/FORMOTEROL) INHALER IH SCH (09:00)
[2021-01-29] MEDS ORDERED: HOME MED 1 EA UNK (Sacubitril/Valsartan [Entresto 97 Mg-103 Mg Tablet] Tablet) PO SCH (09:00)
[2021-01-29] MEDS ORDERED: METOPROLOL XL 25 MG TAB PO SCH (09:00)
[2021-01-29] MEDS ORDERED: POTASSIUM CL SA 10 MEQ TAB PO ONE (09:00)
[2021-01-29] MEDS: PRIMIDONE 250 MG TAB PO SCH ×2 (09:09→13:32)
[2021-01-29 10:27] VITALS: O2SAT 94
--- NOTE | 2021-01-29 10:51 | RAD REPORT ---
EXAM DESCRIPTION: CT - Soft Tissue Neck W/Contr - 01/29/2021 6:28 am COMPARISON: CT C-spine October 11, 2020 CLINICAL HISTORY: [facility] eval for neck mass, upper airway sounds while breathing TECHNIQUE: Axial CT images are obtained from the skull base through the thoracic inlet with intraven ous contrast. Multiplanar reformats were performed. Automated exposure control was utilized on the ex am as a dose lowering technique. FINDINGS: Larynx, supraglottic, glottic, infraglottic airways: The larynx and the entire cervical ai rway are unremarkable. Nasopharynx, oropharynx, parotid glands, submandibular glands and tongue: The soft tissues of the brian opharynx and oropharynx are normal. The parotid and both submandibular glands are normal. Inherent mu scles of the tongue and lingual tonsils are normal. Lymph nodes: No pathologically enlarged lymph nodes. Thyroid: Normal. Vascular structures: Mild atherosclerosis. Cervical esophagus: Normal. Musculoskeletal: Cervical spondylosis with anterior osteophytes. There are degenerative changes of th e odontoid process. Visualized upper thorax and mediastinum: Pulmonary edema is present with large right pleural effusion . Visualized structures of the skull base: Visualized portions of the skull base, mastoid air cells, mi ddle ear, and paranasal sinuses are normal. IMPRESSION: 1. No acute cervical findings or evidence of mass. 2. Pulmonary edema with large right pleural effusion. Electronically signed by: Doni Red MD 01/29/2021 1:37 AM CDT Due to temporary technical issues with the PACS/Fluency reporting system, reports are being signed by the in house radiologist without review as a courtesy to ensure prompt reporting. The interpreting r adiologist is fully responsible for the content of the report.
--- NOTE | 2021-01-29 11:12 | RAD REPORT ---
EXAM DESCRIPTION: RAD - Chest Single View - 01/29/2021 12:30 am CLINICAL HISTORY: 80 years, Male, Cough;Dyspnea COMPARISON: 08/16/2020. FINDINGS: Single view of the chest was obtained portable. Prior films were compared. . There is a mu ltilead pacemaker defibrillator via left subclavian. There is coronary made. Increased interstitial p ulmonary markings and perihilar regions corresponding to pulmonary edema. The heart is prominent. T he thoracic aorta demonstrate minimal intimal calcification. There are trace of bilateral pleural eff usions. External EKG leads within the [id number]-[id number] limits diagnosis. The rest of the soft tissue and bony structures demonstrate to be unremarkable. IMPRESSION: Findings patient is for volume overload/pulmonary venous congestion. Cardiomegaly. Pacemaker defibrillator in place. Electronically signed by: Jimmy Richardson MD 01/29/2021 12:38 AM CDT Due to temporary technical issues with the PACS/Fluency reporting system, reports are being signed by the in house radiologist without review as a courtesy to ensure prompt reporting. The interpreting r adiologist is fully responsible for the content of the report.
--- NOTE | 2021-01-29 12:15 | P.DS ---
Admission Date: 01/29/21 Discharge Date: 01/29/21 Primary Care Provider: none; Orestes Gonzalez Disposition: DC HOME/HOME HEALTH CARE Discharge Condition: GOOD Reason for Admission: COPD exacerbation Consultations: Pulmonary-Dr. Gonzalez Procedures: COVID: Negative CT Neck: FINDINGS: Larynx, supraglottic, glottic, infraglottic airways: The larynx and the entire cervical airway are unremarkable. Nasopharynx, oropharynx, parotid glands, submandibular glands and tongue: The soft tissues of the nasopharynx and oropharynx are normal. The parotid and both submandibular glands are normal. Inherent muscles of the tongue and lingual tonsils are normal. Lymph nodes: No pathologically enlarged lymph nodes. Thyroid: Normal. Vascular structures: Mild atherosclerosis. Cervical esophagus: Normal. Musculoskeletal: Cervical spondylosis with anterior osteophytes. There are degenerative changes of the odontoid process. Visualized upper thorax and mediastinum: Pulmonary edema is present with large right pleural effusion. Visualized structures of the skull base: Visualized portions of the skull base, mastoid air cells, middle ear, and paranasal sinuses are normal. IMPRESSION: 1. No acute cervical findings or evidence of mass. 2. Pulmonary edema with large right pleural effusion. CXR: COMPARISON: 08/16/2020. FINDINGS: Single view of the chest was obtained portable. Prior films were compared. . There is a multilead pacemaker defibrillator via left subclavian. There is coronary made. Increased interstitial pulmonary markings and perihilar regions corresponding to pulmonary edema. The heart is prominent. The thoracic aorta demonstrate minimal intimal calcification. There are trace of bilateral pleural effusions. External EKG leads within the [id number] limits diagnosis. The rest of the soft tissue and bony structures demonstrate to be unremarkable. IMPRESSION: Findings patient is for volume overload/pulmonary venous congestion. Cardiomegaly. Pacemaker defibrillator in place. Follow up CXR: FINDINGS: Previously noted CHF pattern has significantly improved since prior study. Small bilateral pleural effusions. Heart is moderately enlarged. Dual lead pacer/ defibrillator device present. IMPRESSION: Significant improvement in CHF pattern. Medical Problem List: COPD with exacerbation on chronic oxygen Chronic systolic congestive heart failure Chronic pleural effusion Chronic hyponatremia CKD 3 Hypertension Parkinson's Brief History of Present Illness: 80-year-old male with history of chronic systolic congestive heart failure, COPD, CKD 3, chronic hyponatremia presents emergency department for shortness of breath. Patient reports progressive shortness breath over the course of the last 1 week. Patient has had multiple hospitalizations for similar symptoms in the past, is currently on prednisone 40 mg daily at home and has been taking his nebulizer treatments 3 times per day without significant improvement. Patient also on Lasix 40 mg b.i.d.. Patient was given 2 rounds of nebulizer treatments, IV steroids, IV magnesium in the emergency department still with tachypnea and expiratory wheezing. Patient also with some noted upper airway noises which patient has not had previously during admission, CT soft tissue neck pending to evaluate further, expiratory upper airway noises significantly less pronounced when patient is speaking and not associated with any significant respiratory distress, patient saturating well on room air. Labs in the emergency department significant for hemoglobin 10.2 hematocrit 29.5 sodi um 125, patient's baseline sodium ranges anywhere from 124-132 but is not typically any higher than that. creatinine 1.2 GFR 59 which is close to patient's baseline. BNP elevated 7884 again this is very similar to patient's baseline. ED provider wishes to admit for further evaluation and management of COPD exacerbation. Hospital Course: Patient presented with shortness of breath secondary to COPD exacerbation. Patient received IV steroids with improvement. Case discussed with pulmonology. No further intervention required. At discharge patient will continue with prednisone 20 mg 1 pill twice daily for 7 days then 1 pill once daily for 7 days. Patient will continue with home oxygen to maintain sats above 93%. At discharge patient will continue with his other COPD medications including albuterol and Brovana as directed. Recommend follow-up with pulmonology within 1 week. At discharge patient will continue with home health at home. Patient with chronic systolic CHF and hypertension. Patient takes Entresto, metoprolol, Lasix. At discharge patient will continue with his current medication. This includes Toprol-XL 25 mg 1 pill once daily, Lasix 40 mg 1 pill twice daily, with supplementation of potassium and Entresto 97/103 mg 1 pill twice daily. At discharge patient will continue with a 1500 cc/day fluid restriction and low-salt diet. Recommend to monitor his weight daily. If his weight increases by more than 5 pounds he is to contact his PCP or room attendants for further adjustment in medication. CHF education provided. Patient with chronic hyponatremia. This appears stable. Patient also with underlying chronic renal disease stage III. Recommend follow-up with nephrology as an outpatient to further monitor and address. Recommend to recheck BMP in 1 to 2 weeks to monitor his progress. Recommend further use of nonsteroidal anti- inflammatories. Patient with Parkinson's. At discharge patient will continue with his current medications of primidone 250 mg 1 pill 4 times a day. Vital Signs/Physical Exam: Temp Pulse Resp BP Pulse Ox 97.9 F 60 18 153/73 H 92 01/29/21 08:00 01/29/21 08:56 01/29/21 08:00 01/29/21 08:56 01/29/21 08:00 General: Alert, In no apparent distress, Oriented x3, Cooperative HEENT: Atraumatic Neck: Supple Respiratory: Clear to auscultation bilaterally, Normal air movement Cardiovascular: Normal pulses, Regular rate/rhythm Gastrointestinal: Normal bowel sounds, Soft and benign, Non-distended, No tenderness, No masses, No rebound, No guarding Musculoskeletal: No erythema, No tenderness, No warmth Integumentary: No tenderness/swelling Neurological: Normal speech, Normal strength at 5/5 x4 extr, Normal tone, Normal affect Laboratory Data at Discharge: WBC 5.10 K/uL (4.3-10.9) 01/29/21 04:01 Hgb 10.5 g/dL (13.6-17.9) L 01/29/21 04:01 Hct 30.6 % (39.6-49.0) L 01/29/21 04:01 Plt Count 148 K/uL (152-406) L 01/29/21 04:01 Sodium 123 mmol/L (136-145) L 01/29/21 04:01 Potassium 3.0 mmol/L (3.5-5.1) L 01/29/21 04:01 BUN 28 mg/dL (7-18) H 01/29/21 04:01 Creatinine 1.46 mg/dL (0.55-1.3) H 01/29/21 04:01 Glucose 208 mg/dL (74-106) H 01/29/21 04:01 Magnesium 1.9 mg/dL (1.8-2.4) 01/29/21 04:01 Total Bilirubin 0.5 mg/dL (0.2-1.0) 01/29/21 04:01 AST 22 U/L (15-37) 01/29/21 04:01 ALT 28 U/L (12-78) 01/29/21 04:01 Alkaline Phosphatase 90 U/L (45-117) 01/29/21 04:01 Home Medications: Albuterol Sulfate [Ventolin Hfa] 18 inh IN BID 11/13/20 Potassium Chloride [Micro-K] 10 meq PO M,W,F 11/13/20 Primidone 250 mg PO QID 11/13/20 Sacubitril/Valsartan [Entresto 97 mg-103 mg Tablet] 1 each PO BID 11/13/20 Furosemide 40 mg PO BID 30 Days #60 tablet 12/05/20 Albuterol Neb [Proventil 0.083% Neb Soln] 2.5 mg NEB Q6HP PRN #120 amp 12/10/20 Arformoterol Tartrate [Brovana] 15 mcg NEB BIDRESP #60 vial.neb 12/10/20 Metoprolol Succinate [Toprol Xl*] 25 mg PO DAILY #30 tab 12/10/20 predniSONE [Prednisone*] 20 mg PO SEECOM #21 tab 01/29/21 New Medications: predniSONE [Prednisone*] 20 mg PO SEECOM #21 tab Physician Discharge Instructions: Patient presented with shortness of breath secondary to COPD exacerbation. Patient received IV steroids with improvement. Case discussed with pulmonology. No further intervention required. At discharge patient will continue with prednisone 20 mg 1 pill twice daily for 7 days then 1 pill once daily for 7 days. Patient will continue with home oxygen to maintain sats above 93%. At discharge patient will continue with his other COPD medications including albuterol and Brovana as directed. Recommend follow-up with pulmonology within 1 week. At discharge patient will continue with home health at home. Patient with chronic systolic CHF and hypertension. Patient takes Entresto, metoprolol, Lasix. At discharge patient will continue with his current medication. This includes Toprol-XL 25 mg 1 pill once daily, Lasix 40 mg 1 pill twice daily, with supplementation of potassium and Entresto 97/103 mg 1 pill twice daily. At discharge patient will continue with a 1500 cc/day fluid restriction and low-salt diet. Recommend to monitor his weight daily. If his weight increases by more than 5 pounds he is to contact his PCP or room attendants for further adjustment in medication. CHF education provided. Patient with chronic hyponatremia. This appears stable. Patient also with underlying chronic renal disease stage III. Recommend follow-up with nephrology as an outpatient to further monitor and address. Recommend to recheck BMP in 1 to 2 weeks to monitor his progress. Recommend further use of nonsteroidal anti-inflammatories. Patient with Parkinson's. At discharge patient will continue with his current medications of primidone 250 mg 1 pill 4 times a day. Diet: AHA Activity: Fall precautions Followup: NONE,NONE [Primary Care Provider] - Time spent managing pt's care (in minutes): 55
[2021-01-29 14:45] VITALS: TEMP 97.8
--- NOTE | 2021-01-29 15:20 | RAD REPORT ---
EXAM DESCRIPTION: RAD - Chest Pa And Lat (2 Views) - 01/29/2021 3:15 pm CLINICAL HISTORY: follow up pleural effusion/COPD Chest pain. FINDINGS: Previously noted CHF pattern has significantly improved since prior study. Small bilateral pleural effusions. Heart is moderately enlarged. Dual lead pacer/ defibrillator device present. IMPRESSION: Significant improvement in CHF pattern.
[2021-01-29 16:50] VITALS: BP 154/78
[2021-01-30] MEDS ORDERED: POTASSIUM CL SA 10 MEQ TAB PO SCH (09:00)
== END 2021-01-29 16:28 | disposition home health service (06) ==
LOC: ER 23:37 → 2ND 01-29 02:23
PROVIDERS: ADMIT Family Medicine; ATTEND Family Medicine
DX: J44.1 Chronic obstructive pulmonary disease with (acute) exacerbation (principal); Z99.81 Dependence on supplemental oxygen; I13.0 Hypertensive heart and chronic kidney disease with heart failure and stage 1 through stage 4 chronic kidney disease, or unspecified chronic kidney disease; N18.30 Chronic kidney disease, stage 3 unspecified; I50.22 Chronic systolic (congestive) heart failure; E87.1 Hypo-osmolality and hyponatremia; E78.5 Hyperlipidemia, unspecified; G20 Parkinson's disease; F32.9 Major depressive disorder, single episode, unspecified; Z85.9 Personal history of malignant neoplasm, unspecified; I34.0 Nonrheumatic mitral (valve) insufficiency; Z23 Encounter for immunization; F10.20 Alcohol dependence, uncomplicated; Z95.810 Presence of automatic (implantable) cardiac defibrillator; Z87.891 Personal history of nicotine dependence; Z86.73 Personal history of transient ischemic attack (TIA), and cerebral infarction without residual deficits; Z20.822 Contact with and (suspected) exposure to COVID-19; Z82.49 Family history of ischemic heart disease and other diseases of the circulatory system; Z83.3 Family history of diabetes mellitus; Z80.9 Family history of malignant neoplasm, unspecified
CPT/HCPCS: 96365; 87040 ×2; 85025 ×2; 80048; 36415; 83735; 84132; 83605; 84484; 80053; 84145; 83880; 70491; 71045; 71046; 90471; 90732; 94640; 96375; 99285; 96366; U0003; Q9967; J1940 ×2; J1644; J3475; J2920 ×2; G0378; J7606

== ENCOUNTER 2021-02-20 06:06 | Inpatient (IN) | payer OTHER ==
--- OUTSIDE RECORDS SUMMARY | 2021-02-20 06:08 | XMS REPORT | Continuity of Care Document ---
:1940 Author Organization [facility] t Address [address] [place] [address] Care Team Providers Name Role Phone Eryn [...] 10-04 [facility] 00:00: [address] No Known DA Active [facility] Allergie 05-20 [facility] 00:00: [address] Medications This patient has no known medications. Procedures This patient has no known procedures. Encounters Start End Encounter Admission Attending Care Care Encounter Source Date/Time Date/Time Type Type Clinicians Facility Department ID 2020-06-05 2020-06-05 Transition Mary Kay Cerna [id number] 00:00:00 00:00:00 of Care Cody Stover [id number] Clarisa [id number] 2020-05-29 [facility]06-[facility] [id number] 18:50:00 17:57:00 Encounter Arben Julien [id number] Ling [id number] [place] [id number] Results This patient has no known results.
[2021-02-20 07:57] LABS: Absolute Lymphocytes (CBC) 0.4 K/uL (0.7-4.9); Basophils % 1.2 % (0-1.3); Hematocrit 28.4 % (39.6-49.0); Lymphocytes % 9.3 % (15.3-44.8); MPV 7.6 fL (7.6-11.3); RBC Red Blood Cell Count 3.13 M/uL (4.33-5.43)
[2021-02-20 08:01] LABS: Protime INR 1.05
[2021-02-20 08:13] LABS: Albumin 3.2 g/dL (3.4-5.0); Bilirubin Direct 0.2 mg/dL (0-0.2); Bilirubin Total 0.5 mg/dL (0.2-1.0); Magnesium 1.5 mg/dL (1.8-2.4); Potassium 3.6 mmol/L (3.5-5.1); Protein, Total 6.2 g/dL (6.4-8.2); Troponin (Emerg Dept Use Only) 0.05 ng/mL (0.0-0.045)
[2021-02-20] MEDS ORDERED: ASPIRIN 81 MG CHEWABLE TABLET ONE (08:18)
[2021-02-20] MEDS ORDERED: NA CHLORIDE 0.9% 1,000 ML ONE (08:38)
--- NOTE | 2021-02-20 08:52 | RAD REPORT ---
EXAM DESCRIPTION: RAD - Chest Single View - 02/20/2021 7:48 am CLINICAL HISTORY: CHEST PAIN, tightness in the chest, recent pneumonia diagnosis, history of COPD COMPARISON: Two view chest January 29 TECHNIQUE: AP portable chest image was obtained 02/20/2021 7:48 am . FINDINGS: Left-sided pacemaker/ defibrillator is in place. Cardiomegaly is present. There is central vascular engorgement and overall diffuse prominence of the interstitial pattern. This is accentuated by a low lung volume compared to prior imaging. There are a lveolar opacities present as well. Trachea is midline. No pneumothorax. Small pleural effusions are l ikely. No acute bony abnormality seen. No acute aortic findings suspected. IMPRESSION: Moderate CHF/volume overload pattern. No focal pneumonia seen though the pneumonia could be obscured by the failure changes to the lung par enchyma.
--- NOTE | 2021-02-20 09:57 | ER ---
Nurse's Notes [facility] Name: Jimbo Cat Age: 80 yrs Sex: Male : 1940 Arrival Date: 02/20/2021 Time: 06:43 Bed 5 Private MD: Diagnosis: Presentation: 02/20 07:06 Chief complaint: EMS states: chest pain described as tightness, recently diagnosed with iw pneumonia , hx of COPD and pacemaker. Coronavirus screen: Client presents with at least one sign or symptom that may indicate coronavirus-19. Ebola Screen: Patient negative for fever greater than or equal to 101.5 degrees Fahrenheit, and additional compatible Ebola Virus Disease symptoms Patient denies exposure to infectious person. Patient denies travel to an Ebola-affected area in the 21 days before illness onset. No symptoms or risks identified at this time. Initial Sepsis Screen: Does the patient meet any 2 criteria? No. Patient's initial sepsis screen is negative. Does the patient have a suspected source of infection? No. Patient's initial sepsis screen is negative. Risk Assessment: Do you want to hurt yourself or someone else? Patient reports no desire to harm self or others. Onset of symptoms was February 20, 2021. 07:06 Method Of Arrival: EMS: [facility] iw 07:06 Acuity: SYDNIE 3 iw Triage Assessment: 07:29 General: Appears in no apparent distress. uncomfortable, Behavior is cooperative, bp appropriate for age, anxious. Pain: Complains of pain in mid-sternal area. EENT: No deficits noted. Neuro: No deficits noted. Cardiovascular: Rhythm is Respiratory: Reports shortness of breath. GI: No signs and/or symptoms were reported involving the gastrointestinal system. : No signs and/or symptoms were reported regarding the genitourinary system. Derm: No deficits noted. Musculoskeletal: No deficits noted. Historical: - PMHx: 07:08 Alcoholism; COPD; CVA; Diabetes; HEART FAILURE; Hypertension; possible dementia; iw - Immunization history:: Adult Immunizations up to date. - Social history:: Smoking status: unknown. Screenin:31 Abuse screen: Denies threats or abuse. Denies injuries from another. Nutritional bp screening: No deficits noted. Tuberculosis screening: No symptoms or risk factors identified. Fall Risk None identified. Assessment: 07:31 General: SEE TRIAGE NOTE. bp 08:23 Reassessment: CRITICAL VALUES RECD FROM LAB AND RELAYED TO PROVIDER. NA 119, CL 83. IVF bp STARTED. 09:30 Reassessment: No changes from previously documented assessment. Patient and/or family bp updated on plan of care and expected duration. Pain level reassessed. Patient is alert, oriented x 3, equal unlabored respirations, skin warm/dry/pink. ALL CURRENT ORDERS COMPLETED. 10:00 Reassessment: No changes from previously documented assessment. Patient and/or family bp updated on plan of care and expected duration. Pain level reassessed. Patient is alert, oriented x 3, equal unlabored respirations, skin warm/dry/pink. ADMIT INITIATED. 12:33 Reassessment: PT EXPRESSING DESIRE TO LEAVE AMA. MD AT B/S FOR COUNSELING. PT AOx4. bp 13:13 Reassessment: PT LEFT AMA. COUNSELED TO REMAIN BY STAFF AND MD, BUT REFUSED. URGED TO bp RETURN IF S/S RETURN OR WORSEN. AOx4, AMBULATORY WITH STEADY GAIT. Vital Signs: 07:29 BP 131 / 81; Pulse 60; Resp 15; Temp 98; Pulse Ox 97% on R/A; bp 08:23 BP 138 / 82; Pulse 61; Resp 17; Pulse Ox 100% ; bp 09:29 BP 134 / 83; Pulse 60; Resp 15; Pulse Ox 100% ; bp 10:30 BP 134 / 82; Pulse 60; Resp 17; Pulse Ox 100% ; bp 11:30 BP 128 / 71; Pulse 60; Resp 16; Pulse Ox 99% ; bp 13:13 BP 131 / 75; Pulse 60; Resp 16; Temp 98; Pulse Ox 99% ; bp ED Course: 06:43 Patient arrived in ED. iw 07:08 Triage completed. iw 07:21 Bryan Gtz, RN is Primary Nurse. bp 07:26 Boogie Shah MD is Attending Physician. kdr 07:31 Arm band placed on. bp 07:31 Patient has correct armband on for positive identification. Bed in low position. Call bp light in reach. Side rails up X2. monitor worker on. Pulse ox on. NIBP on. 07:31 Patient maintains SpO2 saturation greater than 95% on room air. bp 07:38 Initial lab(s) drawn, by me, sent to lab. Inserted saline lock: 20 gauge in right dh3 forearm, using aseptic technique. Blood collected. 07:48 XRAY Chest (1 view) In Process Unspecified. EDMS 08:25 ETOH Level Sent. bp 09:29 LFT's Sent. bp 09:29 Basic Metabolic Panel Sent. bp 09:29 CBC with Diff Sent. bp 09:29 Magnesium Sent. bp 09:55 Michele Kaur is Hospitalizing Provider. kdr 13:14 No provider procedures requiring assistance completed. IV discontinued, intact, bp bleeding controlled, No redness/swelling at site. Pressure dressing applied. Administered Medications: 08:01 Drug: Aspirin Chewable Tablet 324 mg Route: PO; bp 08:25 Follow up: Response: No adverse reaction bp 08:20 Drug: NS 0.9% 1000 ml Route: IV; Rate: 125 ml/hr; Site: right forearm; bp 13:17 Follow up: IV Status: Completed infusion; IV Intake: 500ml bp 10:00 Drug: Lasix (furosemide) 40 mg Route: IVP; Site: right forearm; bp 13:17 Follow up: Response: No adverse reaction bp Intake: 13:17 IV: 500ml; Total: 500ml. bp Outcome: 09:56 Decision to Hospitalize by Provider. kdr 13:14 AMA AMA form signed bp 13:14 Condition: stable 13:18 Patient left the ED. bp Signatures: Dispatcher [employer] EDMS Boogie Shah MD MD [facility] Rubi Barry, RN SABINE Lindsey Williamson [facility] Bryan Gtz RN RN bp
--- NOTE | 2021-02-20 09:57 | EDPHYS ---
Physician Documentation [facility] Name: Jimbo Cat Age: 80 yrs Sex: Male : 1940 Arrival Date: 02/20/2021 Time: 06:43 Bed 5 Private MD: ED Physician Boogie Shah HPI: 02/20 14:41 This 80 yrs old Male presents to ER via EMS with complaints of Chest Pain. kdr 14:41 The patient or guardian reports chest pain that is located primarily in the anterior kdr chest wall, bilaterally. Onset: gradually, at an unknown time. The pain does not radiate. Associated signs and symptoms: Pertinent positives: shortness of breath, Weakness. The chest pain is described as aching, dull, a heaviness. Duration: The patient or guardian reports a single episode, that is now resolved. Severity of pain: At its worst the pain was mild just prior to arrival, in the emergency department the pain has improved markedly. The patient has not experienced similar symptoms in the past. The patient has been recently seen by a physician: 1 week(s) ago. Historical: - PMHx: 07:08 Alcoholism; COPD; CVA; Diabetes; HEART FAILURE; Hypertension; possible dementia; iw - Immunization history:: Adult Immunizations up to date. - Social history:: Smoking status: unknown. ROS: 14:41 Constitutional: Negative for fever, chills, and weight loss, Eyes: Negative for injury, kdr pain, redness, and discharge, ENT: Negative for injury, pain, and discharge, Neck: Negative for injury, pain, and swelling, Abdomen/GI: Negative for abdominal pain, nausea, vomiting, diarrhea, and constipation, Back: Negative for injury and pain, : Negative for injury, bleeding, discharge, and swelling, MS/Extremity: Negative for injury and deformity, Skin: Negative for injury, rash, and discoloration, Psych: Negative for depression, anxiety, suicide ideation, homicidal ideation, and hallucinations, Allergy/Immunology: Negative for hives, rash, and allergies, Endocrine: Negative for neck swelling, polydipsia, polyuria, polyphagia, and marked weight changes, Hematologic/Lymphatic: Negative for swollen nodes, abnormal bleeding, and unusual bruising. 14:41 Cardiovascular: Positive for chest pain, with cough, with movement, Negative for edema, orthopnea, palpitations, paroxysmal nocturnal dyspnea, acute changes. 14:41 Respiratory: Positive for shortness of breath, on exertion. 14:41 Neuro: Positive for weakness. Exam: 14:41 Constitutional: This is a well developed, well nourished patient who is awake, alert, kdr and in no acute distress. Head/Face: Normocephalic, atraumatic. Eyes: Pupils equal round and reactive to light, extra-ocular motions intact. Lids and lashes normal. Conjunctiva and sclera are non-icteric and not injected. Cornea within normal limits. Periorbital areas with no swelling, redness, or edema. Neck: Trachea midline, no thyromegaly or masses palpated, and no cervical lymphadenopathy. Supple, full range of motion without nuchal rigidity, or vertebral point tenderness. No Meningismus. Chest/axilla: Normal chest wall appearance and motion. Nontender with no deformity. No lesions are appreciated. Cardiovascular: Regular rate and rhythm with a normal S1 and S2. No gallops, murmurs, or rubs. Normal PMI, no JVD. No pulse deficits. Respiratory: Lungs have equal breath sounds bilaterally, clear to auscultation and percussion. No rales, rhonchi or wheezes noted. No increased work of breathing, no retractions or nasal flaring. Abdomen/GI: Soft, non-tender, with normal bowel sounds. No distension or tympany. No guarding or rebound. No evidence of tenderness throughout. Back: No spinal tenderness. No costovertebral tenderness. Full range of motion. Skin: Warm, dry with normal turgor. Normal color with no rashes, no lesions, and no evidence of cellulitis. MS/ Extremity: Pulses equal, no cyanosis. Neurovascular intact. Full, normal range of motion. Psych: Awake, alert, with orientation to person, place and time. Behavior, mood, and affect are within normal limits. 14:41 Neuro: Orientation: is normal, Mentation: is normal, Memory: is normal, Motor: no acute changes, moves all fours, strength is 5/5 in all extremities, Gait: is unsteady, shuffling. Vital Signs: 07:29 BP 131 / 81; Pulse 60; Resp 15; Temp 98; Pulse Ox 97% on R/A; bp 08:23 BP 138 / 82; Pulse 61; Resp 17; Pulse Ox 100% ; bp 09:29 BP 134 / 83; Pulse 60; Resp 15; Pulse Ox 100% ; bp 10:30 BP 134 / 82; Pulse 60; Resp 17; Pulse Ox 100% ; bp 11:30 BP 128 / 71; Pulse 60; Resp 16; Pulse Ox 99% ; bp 13:13 BP 131 / 75; Pulse 60; Resp 16; Temp 98; Pulse Ox 99% ; bp MDM: 09:56 Patient medically screened. kdr 14:41 Data reviewed: vital signs, lab test result(s), radiologic studies. Counseling: I had a kdr detailed discussion with the patient and/or guardian regarding: the historical points, exam findings, and any diagnostic results supporting the discharge/admit diagnosis, lab results, radiology results, the need for further work-up and treatment in the hospital. 02/20 07:26 Order name: Basic Metabolic Panel kdr 02/20 07:26 Order name: CBC with Diff kdr 02/20 07:26 Order name: LFT's kdr 02/20 07:26 Order name: Magnesium kdr 02/20 07:26 Order name: NT PRO-BNP; Complete Time: 09:49 kdr 02/20 07:26 Order name: PT-INR; Complete Time: 08:17 kdr 02/20 07:26 Order name: Troponin (emerg Dept Use Only); Complete Time: 09:49 kdr 02/20 07:26 Order name: XRAY Chest (1 view); Complete Time: 09:49 kdr 02/20 07:26 Order name: Basic Metabolic Panel; Complete Time: 09:49 EDMS 02/20 07:26 Order name: CBC with Automated Diff; Complete Time: 08:17 EDMS 02/20 07:26 Order name: Liver (Hepatic) Function; Complete Time: 09:49 EDMS 02/20 07:26 Order name: Magnesium; Complete Time: 09:49 EDMS 02/20 07:48 Order name: ETOH Level kdr 02/20 07:49 Order name: Alcohol Serum/Plasma; Complete Time: 08:17 EDMS 02/20 07:26 Order name: EKG; Complete Time: 07:27 kdr 02/20 07:26 Order name: Cardiac monitoring; Complete Time: 07:32 kdr 02/20 07:26 Order name: EKG - Nurse/Tech; Complete Time: 07:32 kdr 02/20 07:26 Order name: IV Saline Lock; Complete Time: 07:42 kdr 02/20 07:26 Order name: Labs collected and sent; Complete Time: 07:42 kdr 02/20 07:26 Order name: O2 Per Protocol; Complete Time: 07:32 kdr 02/20 07:26 Order name: O2 Sat Monitoring; Complete Time: 07:32 kdr Administered Medications: 08:01 Drug: Aspirin Chewable Tablet 324 mg Route: PO; bp 08:25 Follow up: Response: No adverse reaction bp 08:20 Drug: NS 0.9% 1000 ml Route: IV; Rate: 125 ml/hr; Site: right forearm; bp 13:17 Follow up: IV Status: Completed infusion; IV Intake: 500ml bp 10:00 Drug: Lasix (furosemide) 40 mg Route: IVP; Site: right forearm; bp 13:17 Follow up: Response: No adverse reaction bp Disposition: 02/20/21 13:18 Patient has left against medical advice. - Patients states they are going to Home. - Condition is Stable. Signatures: Dispatcher [employer] EDMS Boogie Shah MD MD kdr Rubi Barry, SABINE RN iw Bryan Gtz RN RN bp Corrections: (The following items were deleted from the chart) 13:18 09:56 Hospitalization Ordered by Michele Kaur for Inpatient Admission. Preliminary bp diagnosis is Chest pain, unspecified; Heart failure; Weakness. Bed requested for Telemetry/MedSurg (Inpatient). Status is Inpatient Admission. Condition is Fair. Problem is new. Symptoms have improved. kdr
[2021-02-20] MEDS ORDERED: FUROSEMIDE 40 MG/4 ML VIAL ONE (10:27)
--- NOTE | 2021-02-20 11:08 | P.HP ---
Patient History Date of Service: 02/20/21 Allergies No Known Allergies Allergy (Verified 01/29/21 03:19) Home Medications: Albuterol Sulfate [Ventolin Hfa] 18 inh IN BID 11/13/20 Potassium Chloride [Micro-K] 10 meq PO M,W,F 11/13/20 Primidone 250 mg PO QID 11/13/20 Sacubitril/Valsartan [Entresto 97 mg-103 mg Tablet] 1 each PO BID 11/13/20 Furosemide 40 mg PO BID 30 Days #60 tablet 12/05/20 Albuterol Neb [Proventil 0.083% Neb Soln] 2.5 mg NEB Q6HP PRN #120 amp 12/10/20 Arformoterol Tartrate [Brovana] 15 mcg NEB BIDRESP #60 vial.neb 12/10/20 Metoprolol Succinate [Toprol Xl*] 25 mg PO DAILY #30 tab 12/10/20 predniSONE [Prednisone*] 20 mg PO SEECOM #21 tab 01/29/21 - Past Medical/Surgical History Diabetic: No -: pacemaker/defibrillator 2010 -: Diabetes mellitus-not taking meds/resolved -: HTN -: Hyperlipidemia -: Multiple CVA 5x -: Depression -: MARZENA cataracts -: Moderate mitral regurgitation -: CHF, systolic dysfunction -: Parkinsons -: COPD -: Hyponatremia -: cervical vertebrae surgery x2 -: benign tumor removed from L knee -: appendectomy -: tonsillectomy -: 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 -: Pacemaker/defibrillator Psychosocial/ Personal History: 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 , 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 - Family History Father -: Heart disease Mother -: Heart disease, Hypertension, Diabetes, Cancer - Social History Alcohol use: No CD- Drugs: No Caffeine use: Yes Physical Examination - Studies Laboratory Data (last 24 hrs) 02/20/21 07:38: PT 12.5, INR 1.05 02/20/21 07:38: WBC 4.60, Hgb 10.0 L, Hct 28.4 L, Plt Count 163 02/20/21 07:38: Sodium 119 L*, Potassium 3.6, BUN 25 H, Creatinine 1.39 H, Glucose 92, Magnesium 1.5 L, Total Bilirubin 0.5, AST 15, ALT 17, Alkaline Phosphatase 70 Assessment and Plan - Advance Directives Does patient have a Living Will: Yes Does patient have a Durable POA for Healthcare: Yes
[2021-02-20 13:50] VITALS: TEMP 98
[2021-02-20 13:55] VITALS: O2SAT 99
[2021-02-20 13:57] VITALS: BP 131/75
--- NOTE | 2021-02-20 19:54 | P.SSS ---
Patient History Date of Service: 02/20/21 Reason for admission: Chest pain History of Present Illness: 80-year-old gentleman history of frequent hospitalization for shortness of breath presented to the emergency department with a complaint of chest pain. He was recently diagnosed with pneumonia. His initial troponin in the ED negative. Blood work showed hyponatremia with sodium of 119. Chest x-ray demonstrated CHF, no pneumonia. Initial troponin mildly elevated, BNP is significantly elev ated. Patient admitted for further management Allergies No Known Allergies Allergy (Verified 01/29/21 03:19) Home Medications: Albuterol Sulfate [Ventolin Hfa] 18 inh IN BID 11/13/20 Potassium Chloride [Micro-K] 10 meq PO M,W,F 11/13/20 Primidone 250 mg PO QID 11/13/20 Sacubitril/Valsartan [Entresto 97 mg-103 mg Tablet] 1 each PO BID 11/13/20 Furosemide 40 mg PO BID 30 Days #60 tablet 12/05/20 Albuterol Neb [Proventil 0.083% Neb Soln] 2.5 mg NEB Q6HP PRN #120 amp 12/10/20 Arformoterol Tartrate [Brovana] 15 mcg NEB BIDRESP #60 vial.neb 12/10/20 Metoprolol Succinate [Toprol Xl*] 25 mg PO DAILY #30 tab 12/10/20 predniSONE [Prednisone*] 20 mg PO SEECOM #21 tab 01/29/21 - Past Medical/Surgical History Diabetic: No -: pacemaker/defibrillator 2011 -: Diabetes mellitus-not taking meds/resolved -: HTN -: Hyperlipidemia -: Multiple CVA 5x -: Depression -: MARZENA cataracts -: Moderate mitral regurgitation -: CHF, systolic dysfunction -: Parkinsons -: COPD -: Hyponatremia -: cervical vertebrae surgery x2 -: benign tumor removed from L knee -: appendectomy -: tonsillectomy -: 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 Physical Examination - Vital Signs Temperature: 98 F Blood Pressure: 131/75 Pulse: 60 Respirations: 16 - Studies Laboratory Data (last 24 hrs) 02/20/21 07:38: PT 12.5, INR 1.05 02/20/21 07:38: WBC 4.60, Hgb 10.0 L, Hct 28.4 L, Plt Count 163 02/20/21 07:38: Sodium 119 L*, Potassium 3.6, BUN 25 H, Creatinine 1.39 H, Glucose 92, Magnesium 1.5 L, Total Bilirubin 0.5, AST 15, ALT 17, Alkaline Phosphatase 70 - Diagnosis (Problem(s)) (1) Acute on chronic systolic CHF (congestive heart failure) Onset Date: 11/08/17 Status: Acute (2) Chest pain Onset Date: 06/15/17 Status: Acute Qualifiers: Chest pain type: unspecified Qualified Code(s): R07.9 - Chest pain, unspecified (3) Chronic atrial fibrillation Status: Acute (4) Diabetes mellitus, type II Onset Date: 11/24/17 Status: Chronic Qualifiers: Diabetes mellitus bed bug exterminator insulin use: with bed bug exterminator use Diabetes mellitus complication status: without complication Qualified Code(s): E11.9 - Type 2 diabetes mellitus without complications; Z79.4 - halfway (current) use of insulin Treatment Summary: ED physician-Dr. Shah called and informed me patient signed out against medical advice. - Disposition Disposition: AMA-LEFT AGAINST MEDICAL ADVIC Condition: GOOD
== END 2021-02-20 13:18 | disposition left against medical advice (07) | DRG 292 ==
LOC: ER 06:06 → SUPCPDRO 06:06 → ERHOLD 11:58
PROVIDERS: ADMIT Internal Medicine; ATTEND Internal Medicine
DX: I11.0 Hypertensive heart disease with heart failure (principal); I48.20 Chronic atrial fibrillation, unspecified; E87.1 Hypo-osmolality and hyponatremia; I50.23 Acute on chronic systolic (congestive) heart failure; E11.9 Type 2 diabetes mellitus without complications; G20 Parkinson's disease; J44.9 Chronic obstructive pulmonary disease, unspecified; Z79.4 Long term (current) use of insulin; Z53.29 Procedure and treatment not carried out because of patient's decision for other reasons; Z95.0 Presence of cardiac pacemaker; Z86.73 Personal history of transient ischemic attack (TIA), and cerebral infarction without residual deficits
CPT/HCPCS: 36415; 71045; 80048; 80076; 80320; 83735; 83880; 84484; 85025; 85610; 93005; 96361; 96374; 99285; J1940; J7030

== ENCOUNTER 2021-03-15 09:35 | Inpatient (IN) | payer OTHER ==
--- OUTSIDE RECORDS SUMMARY | 2021-03-15 09:37 | XMS REPORT | Continuity of Care Document ---
:1940 Author Organization [facility] t Address [address] [place] [address] Care Team Providers Name Role Phone Eryn [...] DA Active U 2018- [facility] 10-04 [facility] 00:00: [address] No Known DA Active U [facility] 05-20 [facility] 00:00: [address] Medications This patient has no known medications. Procedures This patient has no known procedures. Encounters Start End Encounter Admission Attending Care Care Encounter Source Date/Time Date/Time Type Type Clinicians Facility Department ID 2020-06-05 2020-06-05 Transition Mary Kay Cerna [id number] 00:00:00 00:00:00 of Care Cody Stover [id number] Clarisa [id number] 2020-05-29 2020-06-04 [facility] [id number] 18:50:00 17:57:00 Encounter Arben Julien [id number] [place] [id number] [place] [id number] Results This patient has no known results.
[2021-03-15 10:20] LABS: Absolute Lymphocytes (CBC) 0.6 K/uL (0.7-4.9); Basophils % 1.2 % (0-1.3); Hematocrit 30.8 % (39.6-49.0); Lymphocytes % 12.8 % (15.3-44.8); MPV 7.7 fL (7.6-11.3); RBC Red Blood Cell Count 3.34 M/uL (4.33-5.43)
[2021-03-15 10:23] LABS: Protime INR 1.09
[2021-03-15 10:33] LABS: Albumin 3.6 g/dL (3.4-5.0); Bilirubin Direct 0.3 mg/dL (0-0.2); Bilirubin Total 0.7 mg/dL (0.2-1.0); Magnesium 1.6 mg/dL (1.8-2.4); Potassium 3.7 mmol/L (3.5-5.1); Protein, Total 6.7 g/dL (6.4-8.2); Troponin (Emerg Dept Use Only) 0.04 ng/mL (0.0-0.045)
--- NOTE | 2021-03-15 11:08 | RAD REPORT ---
EXAM DESCRIPTION: Daniel Single View03/15/2021 10:18 am CLINICAL HISTORY: Cough COMPARISON: March 12 FINDINGS: [id number] bilateral pulmonary opacities slightly improved Heart remains enlarged. Pacemaker leads in place IMPRESSION: Mild improvement in CHF
--- NOTE | 2021-03-15 11:11 | EDPHYS ---
Physician Documentation [facility] Name: Jimbo Cat Age: 80 yrs Sex: Male : 1940 Arrival Date: 03/15/2021 Time: 09:42 Bed 16 Private MD: ED Physician Terry Sanderson HPI: 03/15 11:00 This 80 yrs old Male presents to ER via EMS with complaints of Shortness Of lubna Breath. 11:00 The patient has shortness of breath at rest, with light activity. Onset: The lubna symptoms/episode began/occurred 3 day(s) ago. Duration: The symptoms are continuous, and are steadily getting worse. The patient's shortness of breath is aggravated by exertion, light activity, supine position, is alleviated by elevating head, pursed lip breathing, application of supplemental oxygen. Associated signs and symptoms: Pertinent positives: non-productive cough. Severity of symptoms: At their worst the symptoms were moderate in the emergency department the symptoms are unchanged. The patient has experienced similar episodes in the past, several times. Historical: - Allergies: :44 No Known Allergies; ll1 - PMHx: :44 CVA; Alcoholism; COPD; Diabetes; HEART FAILURE; Hypertension; possible dementia; ll1 - PSHx: :44 pacemaker; ll1 - Immunization history:: Flu vaccine status is unknown. - Social history:: Smoking status: Patient/guardian denies using tobacco, the patient reports quitting approximately 50 years ago. - Family history:: not pertinent. ROS: 11:00 Constitutional: Negative for fever, chills, and weight loss, Eyes: Negative for injury, lubna pain, redness, and discharge, ENT: Negative for injury, pain, and discharge, Neck: Negative for injury, pain, and swelling, Cardiovascular: Negative for chest pain, palpitations, and edema, Abdomen/GI: Negative for abdominal pain, nausea, vomiting, diarrhea, and constipation, Back: Negative for injury and pain, : Negative for injury, bleeding, discharge, and swelling, Skin: Negative for injury, rash, and discoloration, Neuro: Negative for headache, weakness, numbness, tingling, and seizure, Psych: Negative for depression, anxiety, suicide ideation, homicidal ideation, and hallucinations, Allergy/Immunology: Negative for hives, rash, and allergies, Endocrine: Negative for neck swelling, polydipsia, polyuria, polyphagia, and marked weight changes. 11:00 Respiratory: Positive for cough, dyspnea on exertion, orthopnea, shortness of breath, on exertion. 11:00 MS/extremity: Positive for swelling, of the right leg and left leg. Exam: 11:00 Constitutional: This is a well developed, well nourished patient who is awake, alert, lubna and in no acute distress. Head/Face: Normocephalic, atraumatic. Eyes: Pupils equal round and reactive to light, extra-ocular motions intact. Lids and lashes normal. Conjunctiva and sclera are non-icteric and not injected. Cornea within normal limits. Periorbital areas with no swelling, redness, or edema. ENT: Nares patent. No nasal discharge, no septal abnormalities noted. Tympanic membranes are normal and external auditory canals are clear. Oropharynx with no redness, swelling, or masses, exudates, or evidence of obstruction, uvula midline. Mucous membranes moist. Neck: Trachea midline, no thyromegaly or masses palpated, and no cervical lymphadenopathy. Supple, full range of motion without nuchal rigidity, or vertebral point tenderness. No Meningismus. Chest/axilla: Normal chest wall appearance and motion. Nontender with no deformity. No lesions are appreciated. Cardiovascular: Regular rate and rhythm with a normal S1 and S2. No gallops, murmurs, or rubs. Normal PMI, no JVD. No pulse deficits. Abdomen/GI: Soft, non-tender, with normal bowel sounds. No distension or tympany. No guarding or rebound. No evidence of tenderness throughout. Back: No spinal tenderness. No costovertebral tenderness. Full range of motion. Male : Normal genitalia with no discharge or lesions. Skin: Warm, dry with normal turgor. Normal color with no rashes, no lesions, and no evidence of cellulitis. Neuro: Awake and alert, GCS 15, oriented to person, place, time, and situation. Cranial nerves II-XII grossly intact. Motor strength 5/5 in all extremities. Sensory grossly intact. Cerebellar exam normal. Normal gait. Psych: Awake, alert, with orientation to person, place and time. Behavior, mood, and affect are within normal limits. 11:00 Respiratory: the patient does not display signs of respiratory distress, Respirations: normal, no acute changes, Breath sounds: decreased breath sounds, that are mild, are scattered, rhonchi, that are mild, are scattered, stridor, is not appreciated, + upper airway congestion. Respiratory rate: 22 11:12 ECG was reviewed by the Attending Physician. [facility] Vital Signs: 09:49 BP 157 / 86; Pulse 60; Resp 22; Temp 97.9; Pulse Ox 98% on R/A; Weight 67.13 kg; Height ll1 5 ft. 7 in. (170.18 cm); Pain 9/10; 10:30 BP 147 / 78; Pulse 61; Resp 18 S; Pulse Ox 100% on 2 lpm NC; ca1 11:30 BP 151 / 65; Pulse 61; Resp 18 S; Pulse Ox 100% on 2 lpm NC; ca1 12:30 BP 149 / 76; Pulse 60; Resp 18 S; Pulse Ox 100% on R/A; ca1 13:30 BP 132 / 91; Pulse 60; Resp 21 S; Pulse Ox 100% on R/A; ca1 09:49 Body Mass Index 23.18 (67.13 kg, 170.18 cm) ll1 MDM: 09:46 Patient medically screened. lubna 09:47 Patient medically screened. lubna 11:03 Differential diagnosis: Anemia Anxiety Reaction asthma, Bronchitis CHF exacerbation, lubna Chronic Obstructive Pulmonary Disease Myocardial Infarction pneumonia, pulmonary edema, reactive airway disease. Antibiotic administration: Levaquin given. The patient's Wells Deep Vein Thrombosis Score was calculated as follows: Imm/Surg in last 4 wks (1.5 Pts) Total Score: 0-2 Pts- Low Risk. The patient's pulmonary embolism risk score was calculated as follows: patient has experienced immobilization or surgery in the last four weeks (1.5 Pts) Total Score: 0-2 points. This patient was found to be at low risk for a pulmonary embolism by using the Well's assessment criteria. Immunization status: Pneumococcal vaccine: Influenza vaccine: Data reviewed: vital signs, nurses notes, EMS record, lab test result(s), EKG, radiologic studies, plain films. Data interpreted: bus driver/monitor: rate is 60 beats/min, rhythm is regular, Pulse oximetry: on room air is 98 %. Test interpretation: by ED physician or midlevel provider: ECG, plain radiologic studies. Counseling: I had a detailed discussion with the patient and/or guardian regarding: the historical points, exam findings, and any diagnostic results supporting the discharge/admit diagnosis, lab results, radiology results, the need for further work-up and treatment in the hospital. 03/15 09:50 Order name: Basic Metabolic Panel [facility] 03/15 09:50 Order name: CBC with Diff; Complete Time: 10:48 [facility] 03/15 09:50 Order name: LFT's [facility] 03/15 09:50 Order name: Magnesium; Complete Time: 10:48 [facility] 03/15 09:50 Order name: NT PRO-BNP; Complete Time: 10:48 [facility] 03/15 09:50 Order name: PT-INR; Complete Time: 10:48 [facility] 03/15 09:50 Order name: Troponin (emerg Dept Use Only); Complete Time: 10:48 [facility] 03/15 09:50 Order name: Blood Culture Adult (2) [facility] 03/15 09:50 Order name: Lactate; Complete Time: 10:48 [facility] 03/15 09:50 Order name: Procalcitonin [facility] 03/15 09:50 Order name: Flu [facility] 03/15 09:50 Order name: Urine Culture [facility] 03/15 09:51 Order name: Basic Metabolic Panel; Complete Time: 10:48 [facility] 03/15 09:50 Order name: XRAY Chest (1 view) [facility] 03/15 09:50 Order name: EKG; Complete Time: 09:51 [facility] 03/15 09:50 Order name: Cardiac monitoring; Complete Time: 10:38 [facility] 03/15 09:50 Order name: EKG - Nurse/Tech; Complete Time: 10:38 [facility] 03/15 09:50 Order name: IV Saline Lock; Complete Time: 10:07 [facility] 03/15 09:50 Order name: Labs collected and sent; Complete Time: 10:07 [facility] 03/15 09:50 Order name: O2 Per Protocol; Complete Time: 10:08 [facility] 03/15 09:51 Order name: Liver (Hepatic) Function; Complete Time: 10:48 [facility] 03/15 11:39 Order name: SARS-COV-2 RT PCR [facility] 03/15 11:50 Order name: Urine Dipstick-Ancillary [facility] 03/15 09:50 Order name: O2 Sat Monitoring; Complete Time: 10:08 [facility] 03/15 09:50 Order name: Urine Dipstick-Ancillary (obtain specimen); Complete Time: 11:59 lubna EC:12 Rate is 68 beats/min. QRS [place] is Normal. [place] interval is normal. QRS interval is lubna prolonged. QT interval is normal. No Q waves. T waves are Normal. No ST changes noted. Clinical impression: No evidence of ischemia. Interpreted by me. Reviewed by me. Administered Medications: 11:15 Drug: Xopenex (levalbuterol) 2.5 mg Route: Inhalation; ca1 11:17 Drug: Pepcid (famotidine) 20 mg Route: IVP; Site: left forearm; ca1 11:40 Follow up: Response: No adverse reaction ca1 11:19 Drug: Thiamine 100 mg Route: IV; Rate: bolus; Site: left forearm; ca1 11:30 Follow up: Response: No adverse reaction; IV Status: Completed infusion ca1 11:20 Drug: levofloxacin 500 mg Volume: 100 ml; Route: IVPB; Infused Over: 60 mins; Site: ca1 right antecubital; 12:20 Follow up: Response: No adverse reaction; IV Status: Completed infusion; IV Intake: ca1 100ml 11:22 Drug: Lasix (furosemide) 40 mg Route: IVP; Site: left forearm; ca1 13:44 Follow up: Urine output 600 ml; Response: No adverse reaction ca1 11:25 Drug: Magnesium Sulfate 1 grams Route: IVPB; Infused Over: 1 hrs; Site: left forearm; ca1 12:30 Follow up: IV Status: Completed infusion; IV Intake: 100ml ca1 Disposition: 03/15/21 11:10 Hospitalization ordered by Jarrett Tan for Inpatient Admission. Preliminary diagnosis are Systolic (congestive) heart failure, Chronic obstructive pulmonary disease with (acute) exacerbation, Dyspnea. - Bed requested for Telemetry/MedSurg (Inpatient). - Status is Inpatient Admission. ca1 - Condition is Fair. - Problem is new. - Symptoms have improved. Signatures: Dispatcher [employer] EDMS Rocio Rowe RN RN dw Terry Sanderson MD MD cha Acob, Cheryl, RN RN ca1 Fernando Strange RN RN ll1 Corrections: (The following items were deleted from the chart) 10:46 09:51 CORONAVIRUS+MR.LAB.BRZ ordered. EDMS EDMS 13:11 11:10 Hospitalization Ordered by Jarrett Tan DO for Inpatient Admission. Preliminary dw diagnosis is Systolic (congestive) heart failure; Chronic obstructive pulmonary disease with (acute) exacerbation; Dyspnea. Bed requested for Telemetry/MedSurg (Inpatient). Status is Inpatient Admission. Condition is Fair. Problem is new. Symptoms have improved. lubna 14:06 13:11 03/15/2021 11:10 Hospitalization Ordered by Jarrett Tan DO for Inpatient ca1 Admission. Preliminary diagnosis is Systolic (congestive) heart failure; Chronic obstructive pulmonary disease with (acute) exacerbation; Dyspnea. Bed requested for Telemetry/MedSurg (Inpatient). Status is Inpatient Admission. Condition is Fair. Problem is new. Symptoms have improved. dw
--- NOTE | 2021-03-15 11:11 | ER ---
Nurse's Notes [facility] Name: Jimbo Cat Age: 80 yrs Sex: Male : 1940 Arrival Date: 03/15/2021 Time: 09:42 Bed 16 Private MD: Diagnosis: Systolic (congestive) heart failure;Chronic obstructive pulmonary disease with (acute) exacerbation;Dyspnea Presentation: 03/15 09:42 Chief complaint: Patient states: SOB for 2 weeks. Breathing treatments aren't helping ll1 at home. No known fever. Abdominal pain for 1 week. Denies N/V/D. Coronavirus screen: Client denies travel out of the [place] in the last 14 days. difficulty breathing, shortness of breath, Client presents with at least one sign or symptom that may indicate coronavirus-19. Standard/surgical mask placed on the client. Ebola Screen: Patient denies travel to an Ebola-affected area in the 21 days before illness onset. Initial Sepsis Screen: Does the patient meet any 2 criteria? No. Patient's initial sepsis screen is negative. Does the patient have a suspected source of infection? Yes: Productive cough/pneumonia. Risk Assessment: Do you want to hurt yourself or someone else? Patient reports no desire to harm self or others. Onset of symptoms was March 01, 2021. 09:42 Method Of Arrival: EMS: [facility] ll1 09:42 Acuity: SYDNIE 3 ll1 09:44 Chief complaint: EMS states: 98% RA. Given albuterol x 2 and Solu-Medrol 125 mg IV en ll1 route. VSS. Historical: - Allergies: 09:44 No Known Allergies; ll1 - PMHx: 09:44 CVA; Alcoholism; COPD; Diabetes; HEART FAILURE; Hypertension; possible dementia; ll1 - PSHx: 09:44 pacemaker; ll1 - Immunization history:: Flu vaccine status is unknown. - Social history:: Smoking status: Patient/guardian denies using tobacco, the patient reports quitting approximately 50 years ago. - Family history:: not pertinent. Screenin:51 Abuse screen: Denies threats or abuse. Nutritional screening: No deficits noted. ll1 Tuberculosis screening: No symptoms or risk factors identified. Fall Risk IV access (20 points). Ambulatory Aid- Crutches/Cane/Walker (15 pts). Gait- Weak (10 pts.). Total Johnston Fall Scale indicates High Risk Score (45 or more points). Fall prevention measures have been instituted. Placed Close to Nursing Station Frequent Obs/Assessments Occuring As available patient and family educated on Fall Prevention Program and Strategies. Assessment: 09:52 General: Appears ill, Behavior is calm, cooperative, appropriate for age. Pain: ll1 Complains of pain in abdomen Quality of pain is described as aching. Neuro: No deficits noted. Cardiovascular: No deficits noted. Cardiovascular: No deficits noted. Rhythm is pacemaker rate 60. Respiratory: Reports shortness of breath at rest Airway is patent Trachea midline Respiratory effort is even, labored, Respiratory pattern is symmetrical, tachypnea Breath sounds are coarse bilaterally. Breath sounds with wheezes bilaterally. Onset: The symptoms/episode began/occurred 2 weeks ago, the patient has mild shortness of breath. GI: Abdomen is flat, Bowel sounds present X 4 quads. Abd is soft and non tender X 4 quads. Reports lower abdominal pain, upper abdominal pain. 10:30 Reassessment: Patient appears in no apparent distress at this time. Patient and/or ca1 family updated on plan of care and expected duration. Pain level reassessed. Patient is alert, oriented x 3, equal unlabored respirations, skin warm/dry/pink. Respiratory: Airway is patent Respiratory effort is even, unlabored, Respiratory pattern is regular, symmetrical. 11:30 Reassessment: Patient appears in no apparent distress at this time. Patient and/or ca1 family updated on plan of care and expected duration. Pain level reassessed. Patient is alert, oriented x 3, equal unlabored respirations, skin warm/dry/pink. 12:30 Reassessment: Patient appears in no apparent distress at this time. Patient and/or ca1 family updated on plan of care and expected duration. Pain level reassessed. Patient is alert, oriented x 3, equal unlabored respirations, skin warm/dry/pink. 13:30 Reassessment: Patient appears in no apparent distress at this time. Patient and/or ca1 family updated on plan of care and expected duration. Pain level reassessed. Patient is alert, oriented x 3, equal unlabored respirations, skin warm/dry/pink. Vital Signs: 09:49 BP 157 / 86; Pulse 60; Resp 22; Temp 97.9; Pulse Ox 98% on R/A; Weight 67.13 kg; Height ll1 5 ft. 7 in. (170.18 cm); Pain 9/10; 10:30 BP 147 / 78; Pulse 61; Resp 18 S; Pulse Ox 100% on 2 lpm NC; ca1 11:30 BP 151 / 65; Pulse 61; Resp 18 S; Pulse Ox 100% on 2 lpm NC; ca1 12:30 BP 149 / 76; Pulse 60; Resp 18 S; Pulse Ox 100% on R/A; ca1 13:30 BP 132 / 91; Pulse 60; Resp 21 S; Pulse Ox 100% on R/A; ca1 09:49 Body Mass Index 23.18 (67.13 kg, 170.18 cm) ll1 ED Course: 09:42 Patient arrived in ED. ll1 09:43 Triage completed. ll1 09:43 Arm band placed on Patient placed in an exam room, on a stretcher. ll1 09:44 Fernando Strange, RN is Primary Nurse. ll1 09:44 Maintain EMS IV. Dressing intact. Good blood return noted. Site clean \T\ dry. Gauge \T\ ll 1 site: 20 G L AC. 09:46 Terry Sanderson MD is Attending Physician. lubna 09:51 Patient has correct armband on for positive identification. Bed in low position. Call ll1 light in reach. Side rails up X2. 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 Pulse ox on. NIBP on. 09:59 Primary Nurse role handed off by Fernando Strange, RN ca1 09:59 Suzette Suarez, SABINE is Primary Nurse. ca1 09:59 Initial lab(s) drawn, by ia, sent to lab. dh3 10:18 XRAY Chest (1 view) In Process Unspecified. EDMS 10:31 First set of blood cultures drawn by me. ca1 10:31 No provider procedures requiring assistance completed. Inserted saline lock: 22 gauge ca1 in left forearm, using aseptic technique. Blood collected. Patient admitted, IV remains in place. 11:09 Jrarett Tan DO is Hospitalizing Provider. lubna 13:41 Second set of blood cultures drawn by me. ca1 Administered Medications: 11:15 Drug: Xopenex (levalbuterol) 2.5 mg Route: Inhalation; ca1 11:17 Drug: Pepcid (famotidine) 20 mg Route: IVP; Site: left forearm; ca1 11:40 Follow up: Response: No adverse reaction ca1 11:19 Drug: Thiamine 100 mg Route: IV; Rate: bolus; Site: left forearm; ca1 11:30 Follow up: Response: No adverse reaction; IV Status: Completed infusion ca1 11:20 Drug: levofloxacin 500 mg Volume: 100 ml; Route: IVPB; Infused Over: 60 mins; Site: ca1 right antecubital; 12:20 Follow up: Response: No adverse reaction; IV Status: Completed infusion; IV Intake: ca1 100ml 11:22 Drug: Lasix (furosemide) 40 mg Route: IVP; Site: left forearm; ca1 13:44 Follow up: Urine output 600 ml; Response: No adverse reaction ca1 11:25 Drug: Magnesium Sulfate 1 grams Route: IVPB; Infused Over: 1 hrs; Site: left forearm; ca1 12:30 Follow up: IV Status: Completed infusion; IV Intake: 100ml ca1 Intake: 12:20 IV: 100ml; Total: 100ml. ca1 12:30 IV: 100ml; Total: 200ml. ca1 Output: 13:39 Urine: 600ml (Voided); Total: 600ml. ca1 13:44 Urine: 600ml; Total: 1200ml. ca1 Outcome: 11:10 Decision to Hospitalize by Provider. lubna 13:45 Admitted to Med/surg accompanied by tech, via wheelchair, room 204, with oxygen, with ca1 chart, Report called to SABINE Wang 13:45 Condition: stable 13:45 Instructed on the need for admit. 14:06 Patient left the ED. ca1 Signatures: Dispatcher [employer] EDND Terry Sanderson MD MD cha [facility], [facility] Suzette Suarez RN RN ca1 Fernando Strange RN RN ll1 Corrections: (The following items were deleted from the chart) 09:50 09:42 Chief complaint: Patient states: SOB for 2 weeks. Breathing treatments aren't ll1 helping at home. No known fever. ll1
[2021-03-15] MEDS ORDERED: THIAMINE 200 MG/2 ML INJ ONE (11:35)
[2021-03-15] MEDS ORDERED: MAGNESIUM SULFATE 1 gm IVPB 1 GM/100 ML BAG IV ONE (11:36)
[2021-03-15] MEDS ORDERED: FUROSEMIDE 40 MG/4 ML VIAL ONE (11:36)
[2021-03-15] MEDS ORDERED: FAMOTIDINE 20 MG/2 ML VIAL IV ONE (11:36)
[2021-03-15] MEDS ORDERED: Levofloxacin500mg IV 500 MG/100 ML BAG IV ONE (11:36)
[2021-03-15] MEDS ORDERED: LEVALBUTEROL 1.25 MG/3 ML NEB ONE (11:36)
--- NOTE | 2021-03-15 11:41 | P.HP ---
Certification for Inpatient Patient admitted to: Observation With expected LOS: <2 Midnights Patient will require the following post-hospital care: Home Health Services Practitioner: I am a practitioner with admitting privileges, knowledge of patient current condition, hospital course, and medical plan of care. Services: Services provided to patient in accordance with Admission requirements found in Title 42 Section 412.3 of the Code of Federal Regulations Patient History Date of Service: 03/15/21 Primary Care Provider: Dr. Powell; Cardiology-Dr. Arenas Reason for admission: Shortness of breath History of Present Illness: 80-year-old male with history of chronic systolic congestive heart failure, COPD, CKD 3, chronic hyponatremia presents emergency department for shortness of breath. Patient reports progressive shortness breath over the course of the last 1 week. Patient has had multiple hospitalizations for similar symptoms in the past. Patient reports compliant with his medication. He denies any fever, chills. He denies any significant chest pain. Patient came to the ER for further evaluation. In the ER patient was evaluated. Chest x-ray shows CHF. White count 4.6. Hemoglobin 10.6. Platelet count 189. Sodium 125, potassium 3.7. BUN of 30, creatinine 1.47. GFR 46. Glucose 116. Troponin unremarkable. Procalcitonin unremarkable. Lactic acid normal. BNP greater than 10,000. Patient was given Solu-Medrol by EMS. Patient given Lasix in the emergency room. Patient admitted for further evaluation and treatment. Allergies No Known Allergies Allergy (Verified 01/29/21 03:19) Home medications list reviewed: Yes Home Medications: Albuterol Sulfate [Ventolin Hfa] 18 inh IN BID 11/13/20 Potassium Chloride [Micro-K] 10 meq PO M,W,F 11/13/20 Primidone 250 mg PO QID 11/13/20 Sacubitril/Valsartan [Entresto 97 mg-103 mg Tablet] 1 each PO BID 11/13/20 Furosemide 40 mg PO BID 30 Days #60 tablet 12/05/20 Albuterol Neb [Proventil 0.083% Neb Soln] 2.5 mg NEB Q6HP PRN #120 amp 12/10/20 Arformoterol Tartrate [Brovana] 15 mcg NEB BIDRESP #60 vial.neb 12/10/20 Metoprolol Succinate [Toprol Xl*] 25 mg PO DAILY #30 tab 12/10/20 predniSONE [Prednisone*] 20 mg PO SEECOM #21 tab 01/29/21 - Past Medical/Surgical History Diabetic: No -: pacemaker/defibrillator 2010 -: Diabetes mellitus-not taking meds/resolved -: HTN -: Hyperlipidemia -: Multiple CVA 5x -: Depression -: MARZENA cataracts -: Moderate mitral regurgitation -: CHF, systolic dysfunction -: Parkinsons -: COPD -: Hyponatremia -: cervical vertebrae surgery x2 -: benign tumor removed from L knee -: appendectomy -: tonsillectomy -: 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 -: Pacemaker/defibrillator Psychosocial/ Personal History: 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 , 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 - Family History Father -: Heart disease Mother -: Heart disease, Hypertension, Diabetes, Cancer - Social History Smoking Status: Former smoker Alcohol use: No CD- Drugs: No Caffeine use: Yes Place of Residence: Home Review of Systems General: Weakness, Malaise, As per HPI Eyes: Unremarkable ENT: Unremarkable Respiratory: Shortness of Breath, SOB with Excertion, Wheezing, As per HPI Cardiovascular: Edema, As per HPI Gastrointestinal: Unremarkable Genitourinary: Unremarkable Musculoskeletal: Pedal edema, As per HPI Integumentary: Unremarkable Neurological: Unremarkable Lymphatics: Unremarkable Physical Examination - Studies Laboratory Data (last 24 hrs) 03/15/21 09:59: PT 12.6 H, INR 1.09 03/15/21 09:59: WBC 4.60, Hgb 10.6 L, Hct 30.8 L, Plt Count 189 03/15/21 09:59: Sodium 125 L, Potassium 3.7, BUN 30 H, Creatinine 1.47 H, Glucose 116 H, Magnesium 1.6 L, Total Bilirubin 0.7, AST 25, ALT 28, Alkaline Phosphatase 83 Microbiology Data (last 24 hrs): 03/15/21 10:02 Nasopharnyx Influenza Type A Antigen Screen - Final 03/15/21 10:02 Nasopharnyx Influenza Type B Antigen Screen - Final Assessment and Plan - Plan Chest x-ray: COMPARISON: March 12 FINDINGS: [id number] bilateral pulmonary opacities slightly improved Heart remains enlarged. Pacemaker leads in place IMPRESSION: Mild improvement in CHF Physical exam: General: Alert, patient receiving nebulized treatment. Currently on 2 L per nasal cannula. Patient oriented x3. Patient cooperative. HEENT: Atraumatic Neck: Supple Respiratory: Mild crackles to the bases. Wheezing noted throughout. Cardiovascular: Normal pulses, Regular rate/rhythm Gastrointestinal: Normal bowel sounds, Soft and benign, Non-distended, No tenderness, No masses, No rebound, No guarding Musculoskeletal: No erythema, No tenderness, No warmth Integumentary: Mild pitting edema to the lower extremities. Neurological: Normal speech, Normal strength at 5/5 x4 extr, Normal tone, Normal affect Impression: Dyspnea secondary to acute on chronic systolic CHF compromised by COPD exacerbation on chronic oxygen Chronic renal disease stage III with chronic hyponatremia Hypertension Parkinson's Plan: Dyspnea secondary to acute on chronic systolic CHF compromised by COPD exacerbation on chronic oxygen: Patient will be admitted for further evaluation and treatment. We will continue with IV Solu-Medrol and COPD medicationBrovana/Atrovent and albuterol. We will continue to wean off oxygen. Patient has home oxygen. We will also treat his CHF. Continue IV Lasix 40 mg twice daily. We will also restart his Entresto. Continue 1500 cc. Fluid restriction and low-salt diet. Recheck chest x-ray tomorrow. Will consult nephrology to further assist as the patient is seen by nephrology for his PCP. Anticipate improvement over the next 24 to 48 hours. Patient would benefit with home health and physical therapy at discharge. I will turn the service over to the hospitalist team tomorrow. I will go plan of care with him. Chronic renal disease stage III with chronic hyponatremia: This may be related to his CHF. Continue diuresis. Will monitor closely. Will recheck lab tomorrow. Await further recommendations from nephrology. Hypertension: Restart Toprol. Will monitor and treat appropriately. Parkinson's: Restart primidone DVT prophylaxis: Heparin CODE STATUS: Patient is DNR Advanced care [id number] minutes: Home at discharge. Will recommend home health and physical therapy at discharge. Will consult social work to help with this. Continue home oxygen. Discharge Plan: Home Plan to discharge in: 48 Hours - Advance Directives Does patient have a Living Will: Yes Does patient have a Durable POA for Healthcare: Yes - Code Status/Comfort Care Code Status Assessed: Yes (Patient is DNR) Time Spent Managing Pts Care (In Minutes): 55
[2021-03-15 11:51] LABS: Urine Blood 1+ (Negative); Urine Glucose Negative (Negative); Urine Protein 3+ (Negative)
[2021-03-15] MEDS ORDERED: ACETAMINOPHEN 500 MG TAB PO PRN (13:41)
[2021-03-15] MEDS ORDERED: IPRATROPIUM BROM 0.5MG/2.5ML NEB PRN (13:41)
[2021-03-15] MEDS ORDERED: ONDANSETRON 4 MG/2 ML VIAL IV PRN (13:41)
[2021-03-15] MEDS ORDERED: ALBUTEROL 2.5 MG/3 ML NEB SOL NEB PRN (13:41)
[2021-03-15 15:19] VITALS: BMI 23.1
[2021-03-15 15:50] LABS: CKMB Creatine Kinase MB 1.8 ng/mL (1.0-3.6); Troponin I 0.03 ng/mL (0.0-0.045)
[2021-03-15] MEDS ORDERED: POTASSIUM CL SA 10 MEQ TAB PO ONE (16:00)
[2021-03-15] MEDS: FUROSEMIDE 40 MG/4 ML VIAL IV SCH (16:14)
[2021-03-15] MEDS: METHYLPREDNISOLONE 40 MG INJ IV SCH (16:15)
--- NOTE | 2021-03-15 16:24 | CON ---
History Of Present Illness: The patient is seen in room 204 at [facility] in [facility]. The patient is alert, awake, sitting at the edge of the bed, somewhat short of breath, but able to talk and answer questions. He has swelling in the legs that is more than his usual. He states th at he has been feeling somewhat short of breath more than his usual. He is improved since he got a L asix in the emergency room. States that he has also had history of COPD, has been given some steroid s. Overall condition improved, but still some shortness of breath. Denies any headache, nausea, vom iting. Currently, the patient is a 80-year-old male with history of COPD, chronic kidney disease, hy ponatremia, CHF, COPD, has had admissions for respiratory issues and volume overload in the hospital a few times. He presents this time with a sodium of 125, more shortness of breath, lungs with few cr ackles at the bases, swelling increased in the lower extremities. Allergies: LISTED NKDA. Medications: In the chart reviewed. He has been on potassium, has been using albuterol, has been on furosemide 40 mg p.o. b.i.d., metoprolol and prednisone at home for COPD exacerbations. Past Medical History: Significant for diabetes, has a pacemaker defibrillator, has had history of de pression, mitral regurg, hyponatremia, COPD, CHF, CKD, presumed to be in stage 3. Social History: 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 . Denies any alcohol abuse. Denies any IVDA. 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 He states that he smoked in the past, but does not anymore. Family History: Noncontributory. Physical Examination: General: The patient is alert, awake, able to answer questions. Vital Signs: His blood pressure is on the higher side 168/82, pulse around 60 and regular, O2 sats a re in the 95% to 100%. He is on 2 L nasal cannula. He does get slightly short of breath when he kimmie ks. Temperature is afebrile. Lungs: Clear to auscultation with few crackles at the bases. He does have some wheezing that clears up with cough. Abdomen: Soft. Extremities: Do reveal edema 1 to 2+ bilaterally. HEART: Sounds are regular. Laboratory Data: Reviewed. Sodium 125, potassium 3.7, chloride 87, bicarb 30, BUN 30, creatinine 1. 47, glucose 116, lactic acid 1.7, calcium 8.9, magnesium 1.6, AST 25, ALT 28, alkaline phosphatase 83 , proBNP level is 10,567. Hematology shows WBC 4.6, hemoglobin 10.6, hematocrit 30.8, platelet count of 189. X-ray report from x-ray done earlier this morning at about 0950 reveals mild improvement in CHF, but still has mild to moderate bilateral pulmonary opacities, slightly improved. Assessment And Plan: The patient with congestive heart failure, chronic kidney disease, presents wit h volume overload, elevated blood pressure in the setting of shortness of breath. He is alert, able to answer some questions, getting short of breath easily on a slight bit of ambulation. Low sodium l ikely secondary to volume overload and CHF. X-ray also indicative of CHF. Hemoglobin is stable at a bout 10.6, WBCs are okay. He may also be having a COPD exacerbation superimposed on steroids current ly. Does not seem to have any infectious etiology right now with a WBCs in normal range. He does no t have a cough or any sputum production. We will increase Lasix at this time to t.i.d., give him of 20 mEq p.o. dose once due to compensate for the additional Lasix. We will recheck his BMP tomorrow m orning. Expect him to improve further in the next day or 2 with volume removal. I advised him about salt restriction, fluid restriction and medication compliance specifically with Lasix and monitoring his breathing status, stay way from smoke and dust. The patient understands. /FAITH Voice ID: [id number] Report ID: [id number]
[2021-03-15] MEDS ORDERED: FUROSEMIDE 40 MG/4 ML VIAL IV SCH (17:00)
[2021-03-15] MEDS: ARFORMOTEROL TARTRATE 15 MCG/2 ML VIAL.NEB NEB SCH (19:58)
[2021-03-15] MEDS: HEPARIN 5000 UNIT/ML 1 ML VIAL SQ SCH (20:32)
[2021-03-15] MEDS: VALSARTAN PO SCH (20:41)
[2021-03-15] MEDS: SACUBITRIL PO SCH (20:41)
[2021-03-15] MEDS ORDERED: SACUBITRIL/VALSARTAN 49/51 MG TAB PO SCH (21:00)
[2021-03-15] MEDS ORDERED: PRIMIDONE 50 MG TAB PO SCH (21:00)
[2021-03-15 23:49] LABS: CKMB Creatine Kinase MB 1.3 ng/mL (1.0-3.6); Troponin I 0.03 ng/mL (0.0-0.045)
[2021-03-16] MEDS: METHYLPREDNISOLONE 40 MG INJ IV SCH ×3 (00:40→17:27)
[2021-03-16] MEDS: FUROSEMIDE 40 MG/4 ML VIAL IV SCH ×3 (00:40→17:27)
[2021-03-16] MEDS: METOPROLOL XL 25 MG TAB PO SCH (05:21)
[2021-03-16 06:12] LABS: Absolute Lymphocytes (CBC) 0.2 K/uL (0.7-4.9); Basophils % 0.2 % (0-1.3); Hematocrit 29.7 % (39.6-49.0); Lymphocytes % 5.4 % (15.3-44.8); MPV 8.1 fL (7.6-11.3); RBC Red Blood Cell Count 3.25 M/uL (4.33-5.43)
[2021-03-16 06:29] LABS: Magnesium 1.7 mg/dL (1.8-2.4); Potassium 4.1 mmol/L (3.5-5.1); Thyroid Stimulating Hormone 2.03 uIU/mL (0.360-3.740)
[2021-03-16] MEDS: ARFORMOTEROL TARTRATE 15 MCG/2 ML VIAL.NEB NEB SCH ×2 (07:50→20:30)
[2021-03-16] MEDS: PANTOPRAZOLE 40MG TABLET PO SCH (08:23)
[2021-03-16] MEDS: HEPARIN 5000 UNIT/ML 1 ML VIAL SQ SCH (08:26)
[2021-03-16] MEDS: SACUBITRIL PO SCH ×2 (09:00→21:06)
[2021-03-16] MEDS: VALSARTAN PO SCH ×2 (09:00→21:06)
--- NOTE | 2021-03-16 09:28 | RAD REPORT ---
EXAM DESCRIPTION: RAD - Chest Single View - 03/16/2021 5:19 am CLINICAL HISTORY: Follow-up CHF/COPD Chest pain. COMPARISON: Chest Single View dated 03/15/2021; Chest Single View dated 02/20/2021; Chest Pa And Lat (2 Views) dated 01/29/2021; Chest Single View dated 01/29/2021 FINDINGS: Portable technique limits examination quality. Mild interstitial pulmonary edema seen. Moderate right-sided pleural effusion is present. The heart i s moderately enlarged with a multi lead pacer/defibrillator device.
[2021-03-16] MEDS: PRIMIDONE 250 MG TAB PO SCH ×4 (09:41→21:06)
[2021-03-16] MEDS ORDERED: MAGNESIUM SULFATE 1 gm IVPB 1 GM/100 ML BAG IV ONE (10:17)
--- NOTE | 2021-03-16 12:18 | RAD REPORT ---
EXAM DESCRIPTION: RAD - Chest Lateral Decubitus - 03/16/2021 11:59 am CLINICAL HISTORY: right decubitus; pleural effusion COMPARISON: Chest Single View dated 03/16/2021 FINDINGS: Left side up decubitus view demonstrates layering right pleural fluid measuring maximally 3.5 cm in thickness. Some loculation of the fluid inferiorly is suspected. Right-side up decubitus vi ew demonstrates a small amount of layering left pleural fluid maximally measuring 1.7 cm in thickness .
--- NOTE | 2021-03-16 15:07 | PN ---
Date of Progress Note: 03/16/2021 The patient seen in second floor in room 204. Subjective: He is alert, awake. States he feels a whole lot better compared to yesterday. He is br eathing better. He is more energetic. He feels that he has gotten some fluid off him and his breath ing is much improved. His crackles in the lungs are improved. His wheezing is improved. He is not coughing as much and he feels like his energy level is improved also. He is asking for a comb and a toothbrush. He wants to brush his teeth and comb his hair. He has been able to move around a little bit better in bed and able to sit on the side of the bed without discomfort and feels like his arms and legs are also stronger than they were yesterday. Objective: Vital signs: On evaluation of his vitals, his vitals are in good range with blood pressu re in the low range 140 range, 141/79; pulse 63. He is afebrile, respirations around 14, O2 sats are 95%. He is on room air. TSH is 2.030. Lungs: Clear to auscultation with no wheezing. He does have decreased breath sounds bilaterally, mo re so on the right side. Abdomen: Soft. Extremities: Reveal trace edema bilaterally. Significant improvement compared to yesterday. Laboratory Data: On the lab evaluation sodium is improved from 124 yesterday to 128, potassium 4.1, chloride 92, bicarb 29, BUN 35, creatinine 1.51. His glucose is 137. WBC 3.2, hemoglobin and hemato crit 10.6 and 29.7, platelet count 149. Magnesium level is slightly on the lower side at 1.7. Assessment And Plan: The patient with congestive heart failure exacerbation, acute kidney injury, ch ronic kidney disease, hypomagnesemia, anemia, history of multiple episodes of congestive heart failur e , presents with similar complaints. Has significantly improved also with steroids. His wheezing i s improved. He does not seem to have any infection currently. His WBC is in normal range. He is no t having any fevers and his breathing has improved with diuresis. Would recommend at this time repla cement of magnesium. I have placed the order. Continue Lasix t.i.d. He has a right effusion on his chest x-ray. Question if this can be thoracentesed to give the patient some more breathing assistan ce and improvement in his breathing. I have discussed this with Dr. Crabtree. They will be looking into the possibility of doing a thoracentesis if the effusion does look enough of for this to be done. /FAITH Voice ID: [id number] Report ID: [id number]
--- NOTE | 2021-03-16 15:51 | EKG ---
Test Date: 2021-03-15 Test Time: 10:19:17 Lead Ruby On [employer] Developer: CHRIS MEASUREMENT RESULTS: Intervals: Rate: 68 OR: QRSD: 132 QT: 486 QTc: 516 [place]: P: 100 OR: QRS: -73 T: 121 INTERPRETIVE STATEMENTS: Ventricular-paced rhythm with frequent and consecutive premature ventricular complexes Abnormal ECG Compared to ECG 02/20/2021 06:13:29 Ventricular premature complex(es) now present Electronically Signed On 03-16-21 15:47:23 CDT by Max Pro
[2021-03-17] MEDS: METHYLPREDNISOLONE 40 MG INJ IV SCH ×3 (01:51→16:27)
[2021-03-17] MEDS: FUROSEMIDE 40 MG/4 ML VIAL IV SCH ×3 (01:51→16:27)
--- NOTE | 2021-03-17 05:32 | P.PN ---
Subjective Date of Service: 03/16/21 Patient w/ a large pleural effusion. Patient had a lateral decubitus film which later significantly. Patient with difficulty breathing on ambulation. Spoke with Radiology regarding difficulty thoracenteses in a.m. Physical Examination - Vital Signs Temperature: 98.4 F Blood Pressure: 132/78 Pulse: 60 Respirations: 16 Pulse Ox (%): 96 - Studies Laboratory Data (last 24 hrs) 03/16/21 05:42: Sodium 128 L, Potassium 4.1, BUN 35 H, Creatinine 1.51 H, Glucose 137 H, Magnesium 1.7 L 03/16/21 05:42: WBC 3.20 L D, Hgb 10.6 L, Hct 29.7 L, Plt Count 149 L D Assessment & Plan - Plan Impression: Dyspnea secondary to acute on chronic systolic CHF compromised by COPD exacerbation on chronic oxygen Chronic renal disease stage III with chronic hyponatremia Hypertension Parkinson's Plan: 1. Continue with IV steroids and Brovana 2. Continue with diuresing 3. Monitor renal function closely 4. Monitor sodium level 5. Resume Parkinson's medication 6. Continue with beta-sincere therapy 7. GI and DVT prophylaxis Discharge Plan: Home Plan to discharge in: Greater than 2 days - Advance Directives Does patient have a Living Will: No Does patient have a Durable POA for Healthcare: No - Code Status/Comfort Care Code Status Assessed: Yes Code Status: Full Code Critical Care: No Time Spent Managing PTS Care (In Minutes): 35
[2021-03-17 06:14] LABS: Absolute Lymphocytes (CBC) 0.2 K/uL (0.7-4.9); Basophils % 0.4 % (0-1.3); Hematocrit 30.2 % (39.6-49.0); Lymphocytes % 6.9 % (15.3-44.8); MPV 7.6 fL (7.6-11.3)
[2021-03-17] MEDS: METOPROLOL XL 25 MG TAB PO SCH (06:23)
[2021-03-17 06:37] LABS: Magnesium 1.9 mg/dL (1.8-2.4)
[2021-03-17] MEDS: PANTOPRAZOLE 40MG TABLET PO SCH (07:30)
[2021-03-17] MEDS: ARFORMOTEROL TARTRATE 15 MCG/2 ML VIAL.NEB NEB SCH (09:10)
[2021-03-17] MEDS: PRIMIDONE 250 MG TAB PO SCH ×3 (09:11→16:27)
[2021-03-17] MEDS: SACUBITRIL PO SCH ×2 (09:12→09:22)
[2021-03-17] MEDS: VALSARTAN PO SCH ×2 (09:12→09:22)
[2021-03-17 09:46] VITALS: O2SAT 98
--- NOTE | 2021-03-17 11:08 | RAD REPORT ---
EXAM DESCRIPTION: US - Thoracentesis w/ US Guide - 03/17/2021 10:45 am CLINICAL HISTORY: Right pleural effusion COMPARISON: Multiple preceding chest films TECHNIQUE: The patient presents for ultrasound-guided thoracentesis. Preliminary imaging showed a sm all pocket of fluid at the posterior gutter on the right. This was deemed too small or insufficient f or the thoracentesis procedure. Fluid was sufficient for diagnostic thoracentesis. The procedure, risks and alternatives were discussed with the patient in detail. Oral and written con sent were obtained. Time out procedure was performed. The patient had no contraindicated allergy or medication history. Preliminary sonographic evaluation identified posterior lower right chest access site. The skin and deeper tissues were anesthetized with 1 percent lidocaine. Under direct sonographic visualization, a 22 gauge needle was advanced into the pleural cavity and approximately 12 mL of pleural fluid remove d. At the conclusion of the procedure, needle was withdrawn and a bandage placed at the puncture site. P ostprocedure chest film was not felt be warranted. Patient was transferred back to the floor for cont inued care. Aspirated fluid was delivered to the laboratory pending orders from the primary service. IMPRESSION: Quantity of pleural fluid was not sufficient quantity for therapeutic thoracentesis. Ultrasound-guided diagnostic thoracentesis was performed with 12 mL of pleural fluid obtained. Fluid was delivered to the laboratory. The patient tolerated procedure well without complications.
--- NOTE | 2021-03-17 11:20 | PN ---
Date of Progress Note: 03/17/2021 The patient is seen and evaluated in his room, in room 204. Subjective: He is alert, awake, comfortable. He is off the oxygen currently, satting in the low 90s . He is comfortable, breathing comfortably, talking more comfortably. His crackles and his wheezing have significantly improved. He denies any pain. He states that he has been n.p.o. for procedure a nd is wanting to know when the procedure will be done. I spoke with the nursing director who will viet ck for him and then let him know. I also spoke with Dr. Crabtree earlier and I have been told that the p atient is going to be getting a thoracentesis of his right lung to remove some fluid that is layering to about 4 to 5 cm and then may allow some removal through thoracentesis. We had seen this on the x -ray yesterday also. He is otherwise doing well. He is talking in full sentences. He is alert and comfortable. Objective: Vital signs: His blood pressure is 133/80, pulse is 60, respirations are around 14 to 16 on my exam. He is afebrile, O2 sats are in mid 90s on room air. His heart rhythm is paced at 60. Lungs: Clear to auscultation anteriorly with decreased breath sounds at both bases, more so on the r ight. Abdomen: Soft. Extremities: Reveal trace edema. Significant improvement from 2 days ago. Laboratory Data: Reviewed. His labs show WBC of 3.1, hemoglobin and hematocrit 10.8 and 30.2, plate let count of 169. His chemistry shows sodium 129, potassium 4.0, chloride 91, bicarb 32, BUN 40, cre atinine 1.69, glucose 39, magnesium 1.9. Troponins have been in normal range at 0.03. His TSH was 2 .030. His x-ray showed pulmonary edema seen. Moderate right-sided pleural effusion is present. Thi s is the x-ray from yesterday. Assessment And Plan: The patient is a pleasant 80-year-old male who has been in the hospital before with similar complaints of congestion, presents to the hospital with shortness of breath, congestive heart failure, on Lasix currently, tolerating that well. His magnesium was low, has been replaced. His breathing is stabilized with volume status correcting. He has been on some steroids and nebulize r treatments and oxygen and his chronic obstructive pulmonary disease exacerbation, which seem to be mild, has also improved significantly. His x-ray shows a pleural effusion on his right side, awaitin g thoracentesis. The patient may be able to get discharged after that with close followup in clinic. He seems to stabilize his blood pressure. His sodium has come up, but the chronic hyponatremia and acute hyponatremia were likely secondary to his volume overload, which is now significantly improved and hopefully will further improve once his volume status and his pleural effusions are corrected fu rther. The patient will need ongoing medication adjustment and close followup of blood pressure and electrolytes and I have advised him to keep his followup appointment in clinic. He knows how to reac h our clinic and make appointment. /FAITH Voice ID: [id number] Report ID: [id number]
--- NOTE | 2021-03-17 15:48 | RAD REPORT ---
EXAM DESCRIPTION: FAMMaryreed Single View03/17/2021 3:42 pm CLINICAL HISTORY: thoracentesis IMPRESSION: A pneumothorax is not seen status post thoracentesis
[2021-03-17 16:52] LABS: Appearance CLEAR (CLEAR); Body Fluid Source PLEURAL; Color of fluid Yellow (COLORLESS)
[2021-03-17 16:53] LABS: Body Fluid WBC 215 /mm^3
--- NOTE | 2021-03-23 03:02 | P.DS ---
Discharge Date: 03/17/21 Primary Care Provider: Dr. Powell; Cardiology-Dr. Arenas Disposition: DC HOME/HOME HEALTH CARE Discharge Condition: GOOD Reason for Admission: Shortness of breath Consultations: Health Unit Clerk Brief History of Present Illness: 80-year-old male with history of chronic systolic congestive heart failure, COPD, CKD 3, chronic hyponatremia presents emergency department for shortness of breath. Patient reports progressive shortness breath over the course of the last 1 week. Patient has had multiple hospitalizations for similar symptoms in the past. Patient reports compliant with his medication. He denies any fever, chills. He denies any significant chest pain. Patient came to the ER for further evaluation. In the ER patient was evaluated. Chest x-ray shows CHF. White count 4.6. Hemoglobin 10.6. Platelet count 189. Sodium 125, potassium 3.7. BUN of 30, creatinine 1.47. GFR 46. Glucose 116. Troponin unremarkable. Procalcitonin unremarkable. Lactic acid normal. BNP greater than 10,000. Patient was given Solu-Medrol by EMS. Patient given Lasix in the emergency room. Patient admitted for further evaluation and treatment. Hospital Course: Patient has done well during hospital stay. Patient had minimal amount of fluid drained. Patient is oxygenating really well. Chest x-ray revealed pleural effusion and decubitus x-ray showed significant later range. However, Radiology was only able did drain the minimal amount of fluid. Patient overall is feeling much better and at this time, patient is stable for discharge home. Vital Signs/Physical Exam: Temp Pulse Resp BP Pulse Ox 97.0 F 59 20 130/72 97 03/17/21 12:00 03/17/21 12:00 03/17/21 12:00 03/17/21 12:00 03/17/21 12:00 General: Alert, In no apparent distress, Oriented x3 Laboratory Data at Discharge: WBC 3.10 K/uL (4.3-10.9) L 03/17/21 05:49 Hgb 10.8 g/dL (13.6-17.9) L 03/17/21 05:49 Hct 30.2 % (39.6-49.0) L 03/17/21 05:49 Plt Count 169 K/uL (152-406) 03/17/21 05:49 PT 12.6 SECONDS (9.5-12.5) H 03/15/21 09:59 INR 1.09 03/15/21 09:59 Sodium 129 mmol/L (136-145) L 03/17/21 05:49 Potassium 4.0 mmol/L (3.5-5.1) 03/17/21 05:49 BUN 40 mg/dL (7-18) H 03/17/21 05:49 Creatinine 1.69 mg/dL (0.55-1.3) H 03/17/21 05:49 Glucose 127 mg/dL (74-106) H 03/17/21 05:49 Magnesium 1.9 mg/dL (1.8-2.4) 03/17/21 05:49 Total Bilirubin 0.7 mg/dL (0.2-1.0) 03/15/21 09:59 AST 25 U/L (15-37) 03/15/21 09:59 ALT 28 U/L (12-78) 03/15/21 09:59 Alkaline Phosphatase 83 U/L (45-117) 03/15/21 09:59 Troponin I 0.03 ng/mL (0.0-0.045) 03/15/21 22:45 Home Medications: Albuterol Sulfate [Ventolin Hfa] 18 inh IN BID 11/13/20 Primidone 250 mg PO QID 11/13/20 Sacubitril/Valsartan [Entresto 97 mg-103 mg Tablet] 1 each PO BID 11/13/20 Furosemide 40 mg PO BID 30 Days #60 tablet 12/05/20 Arformoterol Tartrate [Brovana] 15 mcg NEB BIDRESP #60 vial.neb 12/10/20 Metoprolol Succinate [Toprol Xl*] 25 mg PO DAILY #30 tab 12/10/20 predniSONE [Deltasone] 20 mg PO BID #11 tab 03/17/21 New Medications: predniSONE [Deltasone] 20 mg PO BID #11 tab Physician Discharge Instructions: PROBLEM: Congestive Heart Failure, COPD, Chronic Renal Disease GOAL: Clear understanding of disease process INSTRUCTIONS: OK TO DC IV AND DC HOME after thoracentesis is completed and chest x-ray is stable FOLLOW-UP WITH PRIMARY CARE PROVIDER IN 1-2 WEEKS FOLLOW-UP WITH CARDIOLOGY and Pulmonary IN 1-2 WEEKS RETURN TO THE ER IF symptoms worsen CALL or TEXT DR. GR AT [phone] IF ANY QUESTIONS REGARDING HOSPITAL STAY. PLEASE CALL THE FLOOR AT [phone] IF ANY MEDICATION OR NURSING QUESTIONS. Diet: Heart Healthy Activity: Fall precautions Diet: AHA (Low sodium diet) Activity: Fall precautions Followup: Everardo Gonzalez MD [ACTIVE - CAN ADMIT] - Max Pro MD [ACTIVE - CAN ADMIT] - NONE,NONE [Primary Care Provider] - Time spent managing pt's care (in minutes): 35
[2021-03-23 03:04] VITALS: BP 132/78; TEMP 98.4
== END 2021-03-17 16:51 | disposition home health service (06) | DRG 291 ==
LOC: ER 09:35 → ERHOLD 12:04 → 2ND 13:29 → OBSVTOIN 03-16 12:55
PROVIDERS: ADMIT Family Medicine; ATTEND Family Medicine
PROC: 0W993ZZ Drainage of Right Pleural Cavity, Percutaneous Approach (ICD-10-PCS; principal; 2021-03-17)
DX: I13.0 Hypertensive heart and chronic kidney disease with heart failure and stage 1 through stage 4 chronic kidney disease, or unspecified chronic kidney disease (principal); I50.23 Acute on chronic systolic (congestive) heart failure; E87.1 Hypo-osmolality and hyponatremia; J44.1 Chronic obstructive pulmonary disease with (acute) exacerbation; J91.8 Pleural effusion in other conditions classified elsewhere; N18.30 Chronic kidney disease, stage 3 unspecified; G20 Parkinson's disease; Z99.81 Dependence on supplemental oxygen; E83.42 Hypomagnesemia; Z86.73 Personal history of transient ischemic attack (TIA), and cerebral infarction without residual deficits; Z95.810 Presence of automatic (implantable) cardiac defibrillator; Z20.822 Contact with and (suspected) exposure to COVID-19
CPT/HCPCS: 32555; 36415; 71045; 71046; 80048; 80076; 81003; 82550; 82553; 83605; 83735; 83880; 84145; 84443; 84484; 85025; 85610; 87040; 87070; 87086; 87088; 87804; 89050; 93005; 94640; 99285; G0378; J1644; J1940; J2920; J3411; J3475; J7605; U0003

== ENCOUNTER 2021-03-22 22:47 | Observation (INO) | payer OTHER ==
--- OUTSIDE RECORDS SUMMARY | 2021-03-22 22:59 | XMS REPORT | Continuity of Care Document ---
:1940 Author Organization [facility] t Address [address] [place] [address] Care Team Providers Name Role Phone Eryn [...] DA Active U 2018- [facility] 10-04 [facility] 00:00: [address] No Known DA Active U [facility] 05-20 [facility] 00:00: [address] Medications This patient has no known medications. Procedures This patient has no known procedures. Encounters Start End Encounter Admission Attending Care Care Encounter Source Date/Time Date/Time Type Type Clinicians Facility Department ID 2020-06-05 2020-06-05 Transition Mary Kay Cerna [id number] 00:00:00 00:00:00 of Care Cody Stover [id number] Clarisa [id number] 2020-05-29 2020-06-04 [facility] [id number] 18:50:00 17:57:00 Encounter Arben Julien [id number] Ling [id number] [place] [id number] Results This patient has no known results.
[2021-03-23 00:04] LABS: Absolute Lymphocytes (CBC) 0.4 K/uL (0.7-4.9); Basophils % 1.2 % (0-1.3); Hematocrit 28.9 % (39.6-49.0); Lymphocytes % 10.5 % (15.3-44.8); MPV 7.6 fL (7.6-11.3); Protime INR 1.04; RBC Red Blood Cell Count 3.17 M/uL (4.33-5.43)
[2021-03-23] MEDS ORDERED: MECLIZINE HCL 12.5 MG TAB ONE (00:04)
[2021-03-23 00:30] LABS: Albumin 3.3 g/dL (3.4-5.0); Bilirubin Direct 0.2 mg/dL (0-0.2); Bilirubin Total 0.5 mg/dL (0.2-1.0); Magnesium 1.6 mg/dL (1.8-2.4); Potassium 3.3 mmol/L (3.5-5.1); Protein, Total 6.4 g/dL (6.4-8.2); Troponin (Emerg Dept Use Only) 0.04 ng/mL (0.0-0.045)
--- NOTE | 2021-03-23 01:10 | ER ---
Nurse's Notes [facility] Name: Jimbo Cat Age: 80 yrs Sex: Male : 1940 Arrival Date: 03/22/2021 Time: 22:50 Bed 4 Private MD: Diagnosis: Benign paroxysmal vertigo;Hypo-osmolality and hyponatremia Presentation: 03/22 23:04 Chief complaint: EMS states: Called for patient with dizziness that began about 3 hours lp1 ago, denies any chest pain, shortness of breath; Patient reports dizziness resolved on arrival to ED. Coronavirus screen: Client denies travel out of the [place] in the last 14 days. At this time, the client does not indicate any symptoms associated with coronavirus-19. Ebola Screen: No symptoms or risks identified at this time. Initial Sepsis Screen: Does the patient meet any 2 criteria? No. Patient's initial sepsis screen is negative. Does the patient have a suspected source of infection? No. Patient's initial sepsis screen is negative. Risk Assessment: Do you want to hurt yourself or someone else? Patient reports no desire to harm self or others. Onset of symptoms was March 22, 2021. 23:04 Method Of Arrival: EMS: [facility] lp1 23:04 Acuity: SYDNIE 3 lp1 Historical: - Allergies: 23:05 No Known Allergies; lp1 - Home Meds: 23:05 carvedilol Oral [Active]; Eliquis 5 mg Oral tab 1 tab 2 times per day [Active]; Lasix lp1 Oral [Active]; metoprolol tartrate 25 mg Oral tab 1 tab 2 times per day [Active]; Plavix 75 mg Oral tab 1 tab once daily [Active]; Primidone Oral [Active]; Protonix 40 mg Oral TbEC 1 tab once daily [Active]; - PMHx: 23:05 Alcoholism; COPD; CVA; Diabetes; HEART FAILURE; Hypertension; possible dementia; lp1 - PSHx: 23:05 Pacemaker/Defib; Appendectomy; lp1 - Immunization history:: Adult Immunizations up to date. - Social history:: Smoking status: Patient denies any tobacco usage or history of. Screenin:07 Abuse screen: Denies threats or abuse. Denies injuries from another. Nutritional lp1 screening: No deficits noted. Tuberculosis screening: No symptoms or risk factors identified. Fall Risk Total Johnston Fall Scale indicates High Risk Score (45 or more points). Fall prevention measures have been instituted. Side Rails Up X 2 Frequent Obs/Assessments Occuring Family Present and informed to notify staff if the need to leave the bedside As available patient and family educated on Fall Prevention Program and Strategies. Assessment: 23:10 General: Appears in no apparent distress. Behavior is calm, cooperative, appropriate lp1 for age. Pain: Denies pain. Neuro: Level of Consciousness is awake, alert, obeys commands, Oriented to person, place, time, situation, Reports dizziness, since 3 hours ago; Reports worse with turning head or lifting head off of pillow. Cardiovascular: Patient's skin is warm and dry. Edema pitting to left ankle, left foot, right ankle and right foot Rhythm is Paced. Respiratory: Respiratory effort is even, unlabored, Respiratory pattern is regular, Breath sounds are clear bilaterally. GI: No signs and/or symptoms were reported involving the gastrointestinal system. : No signs and/or symptoms were reported regarding the genitourinary system. EENT: No signs and/or symptoms were reported regarding the EENT system. Derm: Skin is intact, is thin, Skin is dry, Skin is normal. Musculoskeletal: No deficits noted. 03/23 00:30 Reassessment: Patient appears in no apparent distress at this time. Patient is alert, lp1 oriented x 3, equal unlabored respirations, skin warm/dry/pink. Patient aware of pending admission. 01:30 Reassessment: Patient appears in no apparent distress at this time. Patient resting, lp1 eyes closed, respirations even, unlabored. Vital Signs: 03/22 23:04 BP 149 / 85; Pulse 60; Resp 18; Temp 97.8(O); Pulse Ox 99% on R/A; Weight 64.86 kg (R); lp1 Height 5 ft. 7 in. (170.18 cm); Pain 0/10; 03/23 00:14 BP 145 / 82; Pulse 60; Resp 15; Pulse Ox 100% on R/A; lp1 00:45 BP 141 / 92; Pulse 60; Resp 15; Pulse Ox 99% on R/A; lp1 01:30 BP 149 / 83; Pulse 60; Resp 16; Pulse Ox 99% on R/A; lp1 03:03 BP 141 / 77; Pulse 60; Resp 16; Pulse Ox 100% on R/A; lp1 03/22 23:04 Body Mass Index 22.40 (64.86 kg, 170.18 cm) lp1 ED Course: 03/22 22:50 Patient arrived in ED. ds1 23:03 Kenyatta Fletcher, RN is Primary Nurse. lp1 23:05 Triage completed. lp1 23:05 Arm band placed on right wrist. lp1 23:07 Moy Tavares NP is PHCP. pm1 23:07 Jackson De La Rosa MD is Attending Physician. pm1 23:07 Patient has correct armband on for positive identification. Placed in gown. Bed in low lp1 position. athletic monitor on. Pulse ox on. NIBP on. 23:37 CT Head Brain wo Cont In Process Unspecified. EDMS 23:51 XRAY Chest (1 view) In Process Unspecified. EDMS 23:55 Inserted saline lock: 20 gauge in right forearm, using aseptic technique. Blood lp1 collected. 03/23 00:22 Basic Metabolic Panel Sent. bs2 00:22 CBC with Diff Sent. bs2 01:09 Fadi Garcia PA is Hospitalizing Provider. pm1 02:04 No provider procedures requiring assistance completed. Patient admitted, IV remains in lp1 place. Administered Medications: 03/22 23:43 Drug: Meclizine 25 mg Route: PO; lp1 07 01:01 Follow up: Response: No adverse reaction lp1 01:03 Drug: NS 0.9% 250 ml Route: IV; Rate: bolus; Site: right forearm; lp1 03:04 Follow up: IV Status: Completed infusion; IV Intake: 250ml lp1 01:03 Drug: Magnesium Sulfate 1 grams Route: IVPB; Infused Over: 1 hrs; Site: right forearm; lp1 02:05 Follow up: IV Status: Completed infusion; IV Intake: 100ml lp1 Intake: 02:05 IV: 100ml; Total: 100ml. lp1 03:04 IV: 250ml; Total: 350ml. lp1 Output: 00:30 Urine: 500ml (Voided); Total: 500ml. lp1 02:44 Urine: 800ml (Voided); Total: 1300ml. lp1 Outcome: 01:10 Decision to Hospitalize by Provider. pm1 02:04 Condition: stable lp1 02:04 Instructed on the need for admit. 03:03 Admitted to Med/surg accompanied by tech, room 230, with chart, Report called to [email or web address] SABINE Albert 03:14 Patient left the ED. lp1 Signatures: Dispatcher [employer] EDPR Brigitte Zuñiga dsKenyatta Vidal RN RN lp1 Moy Tavares, DERRICK SUPERVISOR FRAME ASSEMBLY pm1 Rianna Luu bs2 Corrections: (The following items were deleted from the chart) 03/22 23:55 23:04 BP 149 / 85; Pulse 60bpm; Resp 18bpm; Pulse Ox 99% RA; 64.86 kg Reported; Height lp1 5 ft. 7 in.; BMI: 22.4; Pain 0/10; lp1 03/23 01:00 07 23:10 Cardiovascular: Patient's skin is warm and dry. Rhythm is Paced lp1 lp1
--- NOTE | 2021-03-23 01:10 | EDPHYS ---
Physician Documentation [facility] Name: Jimbo Cat Age: 80 yrs Sex: Male : 1940 Arrival Date: 03/22/2021 Time: 22:50 Bed 4 Private MD: ED Physician Jackson De La Rosa HPI: 03/22 23:16 This 80 yrs old Male presents to ER via EMS with complaints of Dizziness. pm1 23:16 The patient presents with sense of spinning, the room is spinning. Onset: The pm1 symptoms/episode began/occurred today, 3 hour(s) ago. Context: occurred at home, occurred while the patient was lying down, just prior to the episode the patient experienced no apparent symptoms. Modifying factors: The symptoms are alleviated by closing eyes, the symptoms are aggravated by changing position. Associated signs and symptoms: Pertinent negatives: abdominal pain, chest pain, nausea, numbness, palpitations, shortness of breath, tingling, vomiting. Severity of symptoms: in the emergency department the symptoms have resolved Pain is currently a 0 / 10. The patient has not experienced similar symptoms in the past. 23:16 The patient has been recently been admitted at [facility], was pm1 discharged last week, for apparently unrelated complaints, COPD and CHF exacerbation . Historical: - Allergies: 23:05 No Known Allergies; lp1 - Home Meds: 23:05 carvedilol Oral [Active]; Eliquis 5 mg Oral tab 1 tab 2 times per day [Active]; Lasix lp1 Oral [Active]; metoprolol tartrate 25 mg Oral tab 1 tab 2 times per day [Active]; Plavix 75 mg Oral tab 1 tab once daily [Active]; Primidone Oral [Active]; Protonix 40 mg Oral TbEC 1 tab once daily [Active]; - PMHx: 23:05 Alcoholism; COPD; CVA; Diabetes; HEART FAILURE; Hypertension; possible dementia; lp1 - PSHx: 23:05 Pacemaker/Defib; Appendectomy; lp1 - Immunization history:: Adult Immunizations up to date. - Social history:: Smoking status: Patient denies any tobacco usage or history of. ROS: 23:16 Constitutional: Negative for fever, chills, and weight loss. pm1 23:16 Eyes: Negative for injury, pain, redness, and discharge, ENT: Negative for injury, pain, and discharge, Neck: Negative for injury, pain, and swelling, Cardiovascular: Negative for chest pain, palpitations, and edema, Respiratory: Negative for shortness of breath, cough, wheezing, and pleuritic chest pain, Abdomen/GI: Negative for abdominal pain, nausea, vomiting, diarrhea, and constipation, Back: Negative for injury and pain, MS/Extremity: Negative for injury and deformity, Skin: Negative for injury, rash, and discoloration. 23:16 Neuro: Positive for dizziness, Negative for headache, numbness, tingling, weakness. Exam: 23:16 Constitutional: This is a well developed, well nourished patient who is awake, alert, pm1 and in no acute distress. Head/Face: Normocephalic, atraumatic. 23:16 Neck: Trachea midline, no thyromegaly or masses palpated, and no cervical lymphadenopathy. Supple, full range of motion without nuchal rigidity, or vertebral point tenderness. No Meningismus. 23:16 Skin: Warm, dry with normal turgor. Normal color with no rashes, no lesions, and no evidence of cellulitis. MS/ Extremity: Pulses equal, no cyanosis. Neurovascular intact. Full, normal range of motion. 23:16 Eyes: Periorbital structures: appear normal, Pupils: no acute changes, Extraocular movements: intact throughout, Conjunctiva: no acute changes, no injection, Sclera: no acute changes, icterus, is not appreciated, Nystagmus: vestibular nystagmus bilaterally. 23:16 Cardiovascular: Rate: normal, Rhythm: regular, Pulses: no pulse deficits are appreciated. 23:16 Respiratory: Exam negative for acute changes, respiratory distress, shortness of breath, Breath sounds: are clear throughout. 23:16 Abdomen/GI: Inspection: abdomen appears normal, Palpation: abdomen is soft and non-tender, in all quadrants. 23:16 Neuro: Exam negative for acute changes, Orientation: is normal, Mentation: is normal, Motor: is normal, moves all fours. Vital Signs: 23:04 BP 149 / 85; Pulse 60; Resp 18; Temp 97.8(O); Pulse Ox 99% on R/A; Weight 64.86 kg (R); lp1 Height 5 ft. 7 in. (170.18 cm); Pain 0/10; 07/05 00:14 BP 145 / 82; Pulse 60; Resp 15; Pulse Ox 100% on R/A; lp1 00:45 BP 141 / 92; Pulse 60; Resp 15; Pulse Ox 99% on R/A; lp1 01:30 BP 149 / 83; Pulse 60; Resp 16; Pulse Ox 99% on R/A; lp1 03:03 BP 141 / 77; Pulse 60; Resp 16; Pulse Ox 100% on R/A; lp1 03/22 23:04 Body Mass Index 22.40 (64.86 kg, 170.18 cm) lp1 MDM: 03/22 23:14 Patient medically screened. pm1 23:26 Data reviewed: vital signs. Data interpreted: Pulse oximetry: on room air is 99 %. pm1 Interpretation: normal. 03/23 00:42 ED course: Vertigo resolved with meclizine. pm1 00:59 Data reviewed: I have discussed the patient's presentation/case with the attending pm1 Emergency Department Physician; and as a result, I will admit patient, recommends admission due to hyponatermia. 01:01 Counseling: I had a detailed discussion with the patient and/or guardian regarding: the pm1 historical points, exam findings, and any diagnostic results supporting the discharge/admit diagnosis, lab results, radiology results, the need for further work-up and treatment in the hospital. 01:08 Physician consultation: Fadi CHIU was called at 01:08, was contacted at 01:08, pm1 regarding admission, patient's condition, and will see patient in ED. 03/22 23:14 Order name: Basic Metabolic Panel pm1 03/22 23:14 Order name: CBC with Diff pm1 03/22 23:14 Order name: LFT's; Complete Time: 00:34 pm1 03/22 23:14 Order name: Magnesium; Complete Time: 00:34 pm03/22 23:14 Order name: NT PRO-BNP; Complete Time: 00:34 pm03/22 23:14 Order name: PT-INR; Complete Time: 00:16 pm03/22 23:14 Order name: Troponin (emerg Dept Use Only); Complete Time: 00:34 pm1 03/22 23:14 Order name: XRAY Chest (1 view) pm1 03/22 23:14 Order name: CT Head Brain wo Cont pm1 03/22 23:15 Order name: Basic Metabolic Panel; Complete Time: 00:34 EDMS 03/22 23:15 Order name: CBC with Automated Diff; Complete Time: 00:16 EDMS 03/23 02:41 Order name: SARS-COV-2 RT PCR; Complete Time: 04:39 EDMS 03/22 23:14 Order name: EKG; Complete Time: 23:15 pm1 03/22 23:14 Order name: Cardiac monitoring; Complete Time: 23:22 pm1 03/22 23:14 Order name: EKG - Nurse/Tech; Complete Time: 23:22 pm1 03/22 23:14 Order name: IV Saline Lock; Complete Time: 23:55 pm1 03/22 23:14 Order name: Labs collected and sent; Complete Time: 23:55 pm1 03/22 23:14 Order name: O2 Per Protocol; Complete Time: 23:22 pm1 03/22 23:14 Order name: O2 Sat Monitoring; Complete Time: 23:22 pm1 03/23 01:49 Order name: CONS Physician Consult EDMS Administered Medications: 03/22 23:43 Drug: Meclizine 25 mg Route: PO; lp1 03/23 01:01 Follow up: Response: No adverse reaction lp1 01:03 Drug: NS 0.9% 250 ml Route: IV; Rate: bolus; Site: right forearm; lp1 03:04 Follow up: IV Status: Completed infusion; IV Intake: 250ml lp1 01:03 Drug: Magnesium Sulfate 1 grams Route: IVPB; Infused Over: 1 hrs; Site: right forearm; lp1 02:05 Follow up: IV Status: Completed infusion; IV Intake: 100ml lp1 Disposition: 04:31 Co-signature as Attending Physician, Jackson De La Rosa MD. pkl Disposition Summary: 03/23/21 01:10 Hospitalization Ordered Hospitalization Status: Inpatient Admission pm1 Provider: Fadi Garcia pm1 Location: Telemetry/MedSur (Inpatient) pm1 Condition: Stable pm1 Problem: new pm1 Symptoms: have improved pm1 Bed/Room Type: Standard pm1 Room Assignment: 230(03/23/21 02:52) mw Diagnosis - Benign paroxysmal vertigo pm1 - Hypo-osmolality and hyponatremia pm1 Forms: - Medication Reconciliation Form pm1 - SBAR form pm1 Signatures: Dispatcher [employer] EDMS Zehra cMkinney RN RN mw Jackson De La Rosa MD MD pkl Kenyatta Fletcher RN RN lp1 Moy Tavares NP PILING SETTER pm1 Corrections: (The following items were deleted from the chart) 01:46 01:21 CORONAVIRUS+MR.LAB.BRZ olea. EDMS EDMS 02:52 01:10 pm1 bayron
[2021-03-23] MEDS ORDERED: NA CHLORIDE 0.9% 250 ML ONE (01:23)
[2021-03-23] MEDS ORDERED: MAGNESIUM SULFATE 1 gm IVPB 1 GM/100 ML BAG IV ONE (01:24)
[2021-03-23] MEDS ORDERED: POTASSIUM CL SA 10 MEQ TAB PO ONE ×2 (03:20→10:40)
[2021-03-23] MEDS ORDERED: MECLIZINE HCL 12.5 MG TAB PO PRN (03:20)
[2021-03-23] MEDS ORDERED: ALBUTEROL 2.5 MG/3 ML NEB SOL NEB PRN (03:20)
[2021-03-23] MEDS ORDERED: ONDANSETRON 4 MG/2 ML VIAL IV PRN (03:20)
[2021-03-23] MEDS ORDERED: NA CHLORIDE 0.9% 1,000 ML IV SCH (03:20)
[2021-03-23] MEDS ORDERED: ACETAMINOPHEN 500 MG TAB PO PRN (03:20)
--- NOTE | 2021-03-23 03:41 | P.HP ---
Certification for Inpatient Patient admitted to: Observation With expected LOS: <2 Midnights Patient will require the following post-hospital care: None Practitioner: I am a practitioner with admitting privileges, knowledge of patient current condition, hospital course, and medical plan of care. Services: Services provided to patient in accordance with Admission requirements found in Title 42 Section 412.3 of the Code of Federal Regulations Patient History Date of Service: 03/23/21 Reason for admission: hyponatremia History of Present Illness: Mr. Cat is a 80 yo M with CHF, COPD, CKD3, chronic hyponatremia who came in today for vertigo. He says while he was laying down, the room started spinning, worse when he changed position and improved with closing his eyes. Denies nausea and vomiting. Says he tried to get up to walk and was unable to. Labs revealed Na 121, K 3.3, Cl 84. BUN 35, Cr 1.46, GFR 47. Mg 1.6. BNP 8879. Admitted for management of hyponatremia. Allergies No Known Allergies Allergy (Verified 01/29/21 03:19) Home Medications: Albuterol Sulfate [Ventolin Hfa] 18 inh IN BID 11/13/20 Primidone 250 mg PO QID 11/13/20 Sacubitril/Valsartan [Entresto 97 mg-103 mg Tablet] 1 each PO BID 11/13/20 Furosemide 40 mg PO BID 30 Days #60 tablet 12/05/20 Arformoterol Tartrate [Brovana] 15 mcg NEB BIDRESP #60 vial.neb 12/10/20 Metoprolol Succinate [Toprol Xl*] 25 mg PO DAILY #30 tab 12/10/20 predniSONE [Deltasone] 20 mg PO BID #11 tab 03/17/21 - Past Medical/Surgical History Diabetic: No -: pacemaker/defibrillator 2010 -: Diabetes mellitus-not taking meds/resolved -: HTN -: Hyperlipidemia -: Multiple CVA 5x -: Depression -: MARZENA cataracts -: Moderate mitral regurgitation -: CHF, systolic dysfunction -: Parkinsons -: COPD -: Hyponatremia -: cervical vertebrae surgery x2 -: benign tumor removed from L knee -: appendectomy -: tonsillectomy -: 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 moist/pink, EOMI, Sclerae nonicteric Neck: Supple, 2+ carotid pulse no bruit, No LAD, Without JVD or thyroid abnormality Respiratory: Diminished Cardiovascular: Regular rate/rhythm, Normal S1 S2, No gallops, No rubs, No murmurs Capillary refill: <2 Seconds Gastrointestinal: Normal bowel sounds, Soft and benign, Non-distended, No ascites, No tenderness, No masses, No rebound, No guarding Musculoskeletal: No tenderness Integumentary: No rashes Neurological: Normal speech, Normal strength at 5/5 x4 extr, Normal tone, Sensation intact, Cranial nerves 3-12 intact, Normal affect Lymphatics: No axilla or inguinal lymphadenopathy - Studies Laboratory Data (last 24 hrs) 03/22/21 23:50: PT 12.0, INR 1.04 03/22/21 23:50: WBC 4.10 L D, Hgb 10.1 L, Hct 28.9 L, Plt Count 155 03/22/21 23:50: Sodium 121 L, Potassium 3.3 L, BUN 35 H, Creatinine 1.46 H, Glucose 89, Magnesium 1.6 L, Total Bilirubin 0.5, AST 19, ALT 18, Alkaline Phosphatase 65 Assessment and Plan - Problems (Diagnosis) (1) Vertigo Current Visit: Yes Status: Acute (2) Chronic systolic CHF (congestive heart failure) Onset Date: 10/13/17 Current Visit: No Status: Chronic (3) Hypomagnesemia Current Visit: No Status: Acute (4) CHF (congestive heart failure) Onset Date: 11/24/17 Current Visit: No Status: Chronic Qualifiers: (5) CKD (chronic kidney disease) Onset Date: 11/24/17 Current Visit: No Status: Chronic Qualifiers: (6) HTN (hypertension) Onset Date: 11/24/17 Current Visit: No Status: Chronic Qualifiers: Hypertension type: primary hypertension Qualified Code(s): I10 - Essential (primary) hypertension (7) History of CVA (cerebrovascular accident) Onset Date: 11/24/17 Current Visit: No Status: Chronic (8) Hyponatremia Current Visit: No Status: Chronic (9) Presence of combination internal cardiac defibrillator (ICD) and pacemaker Current Visit: No Status: Chronic - Plan nephrology consulted gentle IVF hydration, may consider holding AM Lasix continue to monitor volume status and respiratory function potassium and magnesium replacement meclizine PRN if symptomatic reconcile and continue home medications Discharge Plan: Home Plan to discharge in: 24 Hours - Advance Directives Does patient have a Living Will: No Does patient have a Durable POA for Healthcare: No - Code Status/Comfort Care Code Status Assessed: Yes (full code ) Critical Care: No Time Spent Managing Pts Care (In Minutes): 70
[2021-03-23] MEDS: IPRATROPIUM BROM 0.5MG/2.5ML NEB SCH ×3 (03:50→13:54)
[2021-03-23 04:25] VITALS: BMI 22.4
[2021-03-23 05:04] LABS: Albumin 3.2 g/dL (3.4-5.0); Bilirubin Total 0.5 mg/dL (0.2-1.0); Magnesium 1.8 mg/dL (1.8-2.4); Phosphorus 2.7 mg/dL (2.5-4.9); Potassium 3.2 mmol/L (3.5-5.1); Protein, Total 6.1 g/dL (6.4-8.2)
--- NOTE | 2021-03-23 07:01 | RAD REPORT ---
EXAM DESCRIPTION: RAD - Chest Single View - 03/22/2021 11:52 pm CLINICAL HISTORY: Dizziness COMPARISON: Portable March 17 TECHNIQUE: AP portable chest image was obtained 03/22/2021 11:52 pm . FINDINGS: No focal consolidation is present. Interstitial markings are prominent similar or slightly worse from comparison. Defibrillator remains in place. Cardiomegaly is present similar to comparison . Vasculature is mildly prominent. Retrocardiac left base assessment is limited. No measurable pleura l effusion and no pneumothorax. No acute bony abnormality seen. No acute aortic findings suspected. IMPRESSION: No peripheral mass or consolidation. Heart, vasculature and lung markings are all prominent. Chest is not substantially different comparis on. A mild failure or volume overload cannot be excluded.
[2021-03-23] MEDS ORDERED: ENOXAPARIN 40 MG/0.4 ML SQ SCH (09:00)
[2021-03-23 09:48] LABS: Potassium 3.6 mmol/L (3.5-5.1)
[2021-03-23 10:20] VITALS: BP 153/83; TEMP 97.4
--- NOTE | 2021-03-23 10:29 | EKG ---
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
[2021-03-23 10:35] VITALS: O2SAT 94
--- NOTE | 2021-03-23 11:37 | RAD REPORT ---
EXAM DESCRIPTION: CT - Head Brain Wo Cont - 03/23/2021 2:43 am CLINICAL HISTORY: DIZZINESS. TECHNIQUE: Axial, coronal, and sagittal images through the brain were performed in the absence of in travenous contrast. This exam was performed according to our departmental dose-optimization program w hich includes use of Automated Exposure Control, adjustment of the mA and/or kV according to patient size and/or use of iterative reconstruction technique. COMPARISON: None. FINDINGS: The brain parenchyma appears unremarkable. There is no intra-axial or extra-axial bleed se en. There is no mass or mass effect. The ventricles are normal in size shape and configuration. The o rbital contents appear unremarkable. The visualized paranasal sinuses and mastoid air cells are patent. No acute fracture is identified. IMPRESSION: No acute intracranial abnormality identified. Electronically signed by: Yasmin Stewart MD 03/22/2021 11:43 PM CDT Due to temporary technical issues with the PACS/Fluency reporting system, reports are being signed by the in house radiologist without review as a courtesy to ensure prompt reporting. The interpreting r adiologist is fully responsible for the content of the report.
--- NOTE | 2021-03-23 12:15 | P.PN ---
Subjective Date of Service: 03/23/21 Chief Complaint: hyponatremia Subjective: Improving, Doing well Physical Examination - Vital Signs Temperature: 97.4 F Blood Pressure: 153/83 Pulse: 60 Respirations: 18 Pulse Ox (%): 94 - Studies Laboratory Data (last 24 hrs) 03/22/21 23:50: PT 12.0, INR 1.04 03/22/21 23:50: WBC 4.10 L D, Hgb 10.1 L, Hct 28.9 L, Plt Count 155 03/22/21 23:50: Sodium 121 L, Potassium 3.3 L, BUN 35 H, Creatinine 1.46 H, Glucose 89, Magnesium 1.6 L, Total Bilirubin 0.5, AST 19, ALT 18, Alkaline Phosphatase 65 Assessment & Plan Discharge Plan: Home Plan to discharge in: 24 Hours Physician Review Additional Text: Physical exam General: Patient alert, cooperative. No focal deficits noted. Eyes: Unremarkable ENT: Unremarkable Respiratory: No significant shortness of breath noted Cardiovascular: Heart regular rate rhythm Gastrointestinal: Abdomen soft nontender nondistended Musculoskeletal: No significant edema to the lower extremity. Neurological: No focal deficits. Impression: Vertigo Acute on chronic hyponatremia Chronic renal disease stage III Chronic chronic systolic CHF COPD on chronic oxygen Hypertension Parkinson's Plan: Vertigo: Overall stable. Will provide meclizine as needed. Patient getting IV fluids. Patient with hyponatremia. Acute on chronic hyponatremia: This has improved with IV fluids. Nephrology consulted for further recommendation. Await recommendation. What physical therapy assess ambulation. Possible discharge within the next 24 hr with improvement. Continue to hold Lasix. Chronic renal disease stage III: Hold Lasix at this time. Will discuss further with nephrology about plan of care. Chronic chronic systolic CHF : Hold Lasix at this time. Continue IV fluid hydration. Will need to restart Entresto. Will need to verify home medication. Will discuss plan of care with nephrology. COPD on chronic oxygen: Continue with COPD medication. Hypertension: Continue with Toprol. Parkinson's: Continue primidone. Need to verify home medication. DVT prophylaxis: Lovenox CODE STATUS: Patient is full code Advanced care [id number] minutes: Home at discharge. Continue home oxygen at discharge. Time Spent Managing Pts Care (In Minutes): 55
--- NOTE | 2021-03-23 14:41 | CON ---
Date of Consultation: 03/23/2021 Requesting Provider: Jarrett Tan DO. Reason For Consultation: Electrolyte imbalance, renal insufficiency. History Of Present Illness: Mr. Cat is a 80-year-old male with a history of COPD, congestive heart failure, chronic kidney disease, and chronic hyponatremia who presented to the hospital by ambulance for vertigo. The patient was admitted secondary to findings of severe electrolyte imbalance. The p atient does have chronic hyponatremia, which is attributed to CHF and volume overload state, however, on presentation, the patient had evidence of volume depletion and was admitted for gentle IV hydrati on. The patient is seen at the bedside. He feels well. His vertigo has resolved. Denies any fevers, ch ills, chest pain, shortness of breath, nausea, vomiting, or diarrhea. I reviewed the patient's home medications with him and he did confirm that he was taking his cardiac medications including Lasix an d Entresto as prescribed, which in the system shows that he takes these twice a day. He denies any r ecent changes to these medications. He also states that his p.o. intake has been adequate. He denied any diarrhea. Past Medical History: As per HPI. Family History: Noncontributory. Physical Examination: Vital Signs: Blood pressure 153/83, pulse 60, temperature 97.4. Blood pressure since admission has been in the 140s to 150s range. General: The patient is thin, no acute distress. Heart: Distant heart sounds. Lungs: Clear to auscultation bilaterally. Abdomen: Soft, nontender, nondistended. Extremities: Without any significant edema. Laboratory Data: Sodium 124, potassium 3.6, chloride 88, CO2 31, BUN 34, creatinine 1.35, glucose 14 5. Serum osmolality is 255 in comparison to urine osmolality which was 131. Urine sodium was 38. C BC was reviewed. Current Medications: Reviewed. Impression: 1.Hyponatremia, likely in the setting of volume depletion with the use of multiple diuretics. 2.Chronic systolic congestive heart failure, currently compensated. 3.Vertigo, unclear etiology. 4.Further electrolyte imbalance secondary to diuretic use. 5.Chronic kidney disease stage 3. Stable. Plan: Mr. Cat does appear euvolemic to even volume depleted. We will continue gentle hydration, n ormal saline at 50 mL/h as ordered per primary team. I have ordered a thyroid panel and cortisol lev els to be drawn tomorrow morning. Given the patient's history of COPD, I have ordered a CT scan of t he chest without contrast. I do not see any recent noncontrast radiology studies and I would like to obtain one to rule out any lung mass which also lead to hyponatremia. The patient however did have a dilute urine, which is not a clear response and so I still feel that this is diuretic mediated depl etional hyponatremia, however, with the patient's high risk as he is, I would like to have a chest st udy just to ensure that there is not another underlying component to his hyponatremia. Please refer to Cardiology regarding his diuretic. This patient is on both Entresto and furosemide t wice daily. The patient may not need such an aggressive diuretic regimen, however, as I am new to th is patient, I would defer to Cardiology in that regard based on their known care for him from a cardi ology/CHF perspective. Avoid NSAIDs and iodinated contrast. We will dose all medications. Again, we will continue gentle n ormal saline 50 mL an hour. Continue to monitor for improvement. SE/MODL Voice ID: [id number] Report ID: [id number]
--- NOTE | 2021-03-23 14:44 | P.DS ---
Admission Date: 03/23/21 Discharge Date: 03/23/21 Primary Care Provider: Dr. Powell Disposition: ROUTINE DISCHARGE Discharge Condition: GOOD Reason for Admission: hyponatremia Consultations: Nephrology-Dr. Powell Procedures: CT head: COMPARISON: None. FINDINGS: The brain parenchyma appears unremarkable. There is no intra-axial or extra-axial bleed seen. There is no mass or mass effect. The ventricles are normal in size shape and configuration. The orbital contents appear unremarkable. The visualized paranasal sinuses and mastoid air cells are patent. No acute fracture is identified. IMPRESSION: No acute intracranial abnormality identified. CT Chest: COMPARISON: Thorax Wo Con dated 06/28/2018; Chest Single View dated 03/22/2021 FINDINGS: Areas of subpleural nodularity in both lungs again seen, similar to 2018 comparative study. Trace left and small right pleural effusion are present. No pneumothorax. Calcified adenopathy is seen in the mediastinum and both hilar regions. Dual lead pacer device noted. Cardiac size is enlarged. No concerning bony finding. No gross upper abdominal finding. All CT scans are performed using dose optimization technique as appropriate and may include automated exposure control or mA/KV adjustment according to patient size. IMPRESSION: Numerous juxtapleural pulmonary nodule is again seen, similar to 2018 comparative study.Numerous calcified mediastinal and hilar lymph nodes are also present. Although nonspecific, the pattern favors prior granulomatous infection or sarcoidosis. Trace left and small right pleural effusion. Medical Problem List: Vertigo Acute on chronic hyponatremia Chronic renal disease stage III Chronic chronic systolic CHF COPD Hypertension Parkinson's CT scan showing numerous pulmonary nodules similar to 2018 along with numerous calcified mediastinal and hilar lymph nodes Brief History of Present Illness: 80-year-old male with history of chronic systolic CHF, chronic renal disease, hypertension, Parkinson's presented with vertigo. Patient recently hospitalized for volume overload. Patient was admitted for further evaluation. Initial CT head unremarkable. Patient appeared volume depleted. Sodium level was also lower than normal. Hospital Course: Patient presented with vertigo. Patient appeared to be volume depleted. Patient recently hospitalized for volume overload. Medications reviewed and adjusted. Patient was given IV fluids with improvement. Sodium level improved. Nephrology was consulted to further evaluate. Nephrology recommended to get CT of the chest to rule out abnormality that may be the cause of his hyponatremia. CT chest unremarkable. Medications reviewed. Case discussed with cardiology. At discharge recommend to continue 1500 cc per day fluid restriction and low- salt diet. Will also decrease Lasix to 40 mg once daily instead of twice a day. He is to monitor his weight daily. If his weight increases by more than 5 lb he may need to increase his Lasix back up to twice daily. Will also decrease his Entresto medication to 49/51 mg 1 pill twice daily. Patient previously on Entresto 97/103 mg once daily. Recommend to follow up with nephrology in 1 week. Recommend to recheck lab-BMP in 1 week to monitor his progress. Recommend follow up with cardiology in 1 week to monitor his progress is well. Patient with chronic renal disease stage III. As mentioned above Lasix will be decreased to 40 mg once daily. Recommend to monitor his input and output closely. Recommend to continue 1500 cc per day fluid restriction. Recommend to recheck lab-BMP in 1 week. Further adjustment in medication can be done by nephrology. Patient with COPD. Continue with oxygen to maintain sats above 93%. Patient currently on room air. Patient with hypertension. At discharge patient will continue with metoprolol XL 25 mg daily. Recommend to maintain blood pressure less than 130/80. Further adjustment can be done by his PCP. Recommend to hold medication if blood pressure systolic less than 110 or heart rate less than 50. Patient with Parkinson's. At discharge patient will continue with primidone 250 mg 1 pill 4 times a day. Patient with history of alcohol abuse. Alcohol cessation education provided. Nephrology recommended to get a CT scan. CT scan showing numerous pulmonary nodules similar to 2018 along with numerous calcified mediastinal and hilar lymph nodes. Will recommend follow up with Pulmonary in 1-2 weeks to follow up as outpatient to further evaluate. Vital Signs/Physical Exam: Temp Pulse Resp BP Pulse Ox 97.4 F 60 18 153/83 H 94 03/23/21 12:23 03/23/21 12:23 03/23/21 12:23 03/23/21 12:23 03/23/21 12:23 General: Alert, In no apparent distress, Oriented x3, Cooperative HEENT: Atraumatic Neck: Supple Respiratory: Clear to auscultation bilaterally, Normal air movement Cardiovascular: Normal pulses, Regular rate/rhythm Gastrointestinal: Normal bowel sounds, No tenderness, No masses, No rebound, No guarding Musculoskeletal: No erythema, No tenderness, No warmth Integumentary: No tenderness/swelling Neurological: Normal speech, Normal strength at 5/5 x4 extr, Normal tone, Normal affect Laboratory Data at Discharge: WBC 4.10 K/uL (4.3-10.9) L D 03/22/21 23:50 Hgb 10.1 g/dL (13.6-17.9) L 03/22/21 23:50 Hct 28.9 % (39.6-49.0) L 03/22/21 23:50 Plt Count 155 K/uL (152-406) 03/22/21 23:50 PT 12.0 SECONDS (9.5-12.5) 03/22/21 23:50 INR 1.04 03/22/21 23:50 Sodium 124 mmol/L (136-145) L 03/23/21 09:01 Potassium 3.6 mmol/L (3.5-5.1) 03/23/21 09:01 BUN 34 mg/dL (7-18) H 03/23/21 09:01 Creatinine 1.35 mg/dL (0.55-1.3) H 03/23/21 09:01 Glucose 145 mg/dL (74-106) H 03/23/21 09:01 Phosphorus 2.7 mg/dL (2.5-4.9) 03/23/21 04:22 Magnesium 1.8 mg/dL (1.8-2.4) 03/23/21 04:22 Total Bilirubin 0.5 mg/dL (0.2-1.0) 03/23/21 04:22 AST 15 U/L (15-37) 03/23/21 04:22 ALT 18 U/L (12-78) 03/23/21 04:22 Alkaline Phosphatase 64 U/L (45-117) 03/23/21 04:22 Home Medications: Furosemide [Lasix] 40 mg PO DAILY #30 03/23/21 Metoprolol Succinate [Toprol Xl*] 25 mg PO DAILY 03/23/21 Primidone 250 mg PO QID 03/23/21 Sacubitril/Valsartan [Entresto 49 mg-51 mg Tablet] 1 tab PO BID #60 tab 03/23/21 New Medications: Sacubitril/Valsartan [Entresto 49 mg-51 mg Tablet] 1 tab PO BID #60 tab Furosemide [Lasix] 40 mg PO DAILY #30 Physician Discharge Instructions: Patient presented with vertigo. Patient appeared to be volume depleted. Patient recently hospitalized for volume overload. Medications reviewed and adjusted. Patient was given IV fluids with improvement. Sodium level improved. Nephrology was consulted to further evaluate. Nephrology recommended to get CT of the chest to rule out abnormality that may be the cause of his hyponatremia. CT chest unremarkable. Medications reviewed. Case discussed with cardiology. At discharge recommend to continue 1500 cc per day fluid restriction and low-salt diet. Will also decrease Lasix to 40 mg once daily instead of twice a day. He is to monitor his weight daily. If his weight increases by more than 5 lb he may need to increase his Lasix back up to twice daily. Will also decrease his Entresto medication to 49/51 mg 1 pill twice daily. Patient previously on Entresto 97/103 mg once daily. Recommend to follow up with nephrology in 1 week. Recommend to recheck lab-BMP in 1 week to monitor his progress. Recommend follow up with cardiology in 1 week to monitor his progress is well. Patient with chronic renal disease stage III. As mentioned above Lasix will be decreased to 40 mg once daily. Recommend to monitor his input and output closely. Recommend to continue 1500 cc per day fluid restriction. Recommend to recheck lab-BMP in 1 week. Further adjustment in medication can be done by nephrology. Patient with COPD. Continue with oxygen to maintain sats above 93%. Patient currently on room air. Patient with hypertension. At discharge patient will continue with metoprolol XL 25 mg daily. Recommend to maintain blood pressure less than 130/80. Further adjustment can be done by his PCP. Recommend to hold medication if blood pressure systolic less than 110 or heart rate less than 50. Patient with Parkinson's. At discharge patient will continue with primidone 250 mg 1 pill 4 times a day. Patient with history of alcohol abuse. Alcohol cessation education provided. Nephrology recommended to get a CT scan. CT scan showing numerous pulmonary nodules similar to 2018 along with numerous calcified mediastinal and hilar lymph nodes. Will recommend follow up with Pulmonary in 1-2 weeks to follow up as outpatient to further evaluate. Diet: AHA Activity: Ad brianna Followup: OOTOOT [Primary Care Provider] - Time spent managing pt's care (in minutes): 55
--- NOTE | 2021-03-23 14:45 | RAD REPORT ---
EXAM DESCRIPTION: CT - Thorax Wo Con CLINICAL HISTORY: Chest pain eval for lung mass; ckd pt no contrast COMPARISON: Thorax Wo Con dated 06/28/2018; Chest Single View dated 03/22/2021 FINDINGS: Areas of subpleural nodularity in both lungs again seen, similar to 2018 comparative study . Trace left and small right pleural effusion are present. No pneumothorax. Calcified adenopathy is seen in the mediastinum and both hilar regions. Dual lead pacer device noted. Cardiac size is enlarged. No concerning bony finding. No gross upper abdominal finding. All CT scans are performed using dose optimization technique as appropriate and may include automated exposure control or mA/KV adjustment according to patient size. IMPRESSION: Numerous juxtapleural pulmonary nodule is again seen, similar to 2018 comparative study. Numerous calcified mediastinal and hilar lymph nodes are also present. Although nonspecific, the chloe debra favors prior granulomatous infection or sarcoidosis. Trace left and small right pleural effusion.
[2021-03-23] MEDS ORDERED: PRIMIDONE 250 MG TAB PO SCH (17:00)
[2021-03-24] MEDS ORDERED: HOME MED 1 EA UNK (Sacubitril/Valsartan [Entresto 97 Mg-103 Mg Tablet] Tablet) PO SCH (09:00)
[2021-03-24] MEDS ORDERED: METOPROLOL XL 25 MG TAB PO SCH (09:00)
== END 2021-03-23 16:09 | disposition home health service (06) ==
LOC: ER 22:47 → ERHOLD 03-23 01:55 → 2ND 03-23 03:03
PROVIDERS: ADMIT Family Medicine; ATTEND Family Medicine
DX: E87.1 Hypo-osmolality and hyponatremia (principal); E83.42 Hypomagnesemia; I13.0 Hypertensive heart and chronic kidney disease with heart failure and stage 1 through stage 4 chronic kidney disease, or unspecified chronic kidney disease; N18.30 Chronic kidney disease, stage 3 unspecified; I50.22 Chronic systolic (congestive) heart failure; R42 Dizziness and giddiness; Z20.822 Contact with and (suspected) exposure to COVID-19; J44.9 Chronic obstructive pulmonary disease, unspecified; G20 Parkinson's disease; R59.0 Localized enlarged lymph nodes; Z99.81 Dependence on supplemental oxygen; Z95.810 Presence of automatic (implantable) cardiac defibrillator; E78.5 Hyperlipidemia, unspecified; Z86.73 Personal history of transient ischemic attack (TIA), and cerebral infarction without residual deficits; I34.0 Nonrheumatic mitral (valve) insufficiency; Z87.891 Personal history of nicotine dependence
CPT/HCPCS: 96365; 96368; 93005; 85025; 80048 ×3; 36415; 83735 ×2; 84100; 84132; 85610; 84300; 80076; 84484; 80053; 83880; 83930; 83935; 70450; 71250; 71045; 94760 ×2; 99285; 96366; U0003; J1650; J3475; J7050; J7030; G0378 ×2

== ENCOUNTER 2021-03-30 12:34 | Inpatient (IN) | payer OTHER ==
--- OUTSIDE RECORDS SUMMARY | 2021-03-30 12:36 | XMS REPORT | Continuity of Care Document ---
:[address] [facility] t Address [address] [place] [address] Care Team Providers Name Role Phone Eryn [...] Allergie 10-04 [facility] 00:00: [address] No Known DA Active U [facility] Allergie 05-20 [facility] 00:00: [address] Medications This patient has no known medications. Procedures This patient has no known procedures. Encounters Start End Encounter Admission Attending Care Care Encounter Source Date/Time Date/Time Type Type Clinicians Facility Department ID 2020-06-05 2020-06-05 Transition Mary Kay Cerna [id number] 00:00:00 00:00:00 of Care Cody Stover [id number] Clarisa [id number] 2020-05-29 2020-06-[facility] [id number] 18:50:00 17:57:00 Encounter Arben Julien [id number] Ling [id number] [place] [id number] Results This patient has no known results.
[2021-03-30 13:02] LABS: Absolute Lymphocytes (CBC) 0.7 K/uL (0.7-4.9); Basophils % 1.4 % (0-1.3); Hematocrit 29.5 % (39.6-49.0); Lymphocytes % 13.9 % (15.3-44.8); MPV 7.5 fL (7.6-11.3); RBC Red Blood Cell Count 3.19 M/uL (4.33-5.43)
[2021-03-30] MEDS ORDERED: LEVALBUTEROL 1.25 MG/3 ML NEB ONE (13:03)
[2021-03-30 13:14] LABS: Protime INR 1.09
[2021-03-30 13:25] LABS: Albumin 3.6 g/dL (3.4-5.0); Bilirubin Direct 0.2 mg/dL (0-0.2); Bilirubin Total 0.4 mg/dL (0.2-1.0); Magnesium 1.8 mg/dL (1.8-2.4); Potassium 3.9 mmol/L (3.5-5.1); Protein, Total 6.7 g/dL (6.4-8.2); Troponin (Emerg Dept Use Only) 0.04 ng/mL (0.0-0.045)
[2021-03-30 13:41] LABS: Urine Blood 2+ (Negative); Urine Glucose Negative (Negative); Urine Protein 3+ (Negative); Urine pH 6.5 (5.0-7.0)
--- NOTE | 2021-03-30 13:55 | RAD REPORT ---
EXAM DESCRIPTION: RAD - Chest Single View - 03/30/2021 1:16 pm CLINICAL HISTORY: SOB COMPARISON: March 22 TECHNIQUE: AP portable chest image was obtained 03/30/2021 1:16 pm . FINDINGS: Perihilar interstitial opacification is increased over an already prominent pattern. Cardi omegaly is present. No far peripheral mass or consolidation. Trachea is midline. Defibrillator is in place. Upper lobe vasculature is prominent but not clearly different. No measurable pleural effusion and no pneumothorax. No acute bony abnormality seen. No acute aortic findings suspected. IMPRESSION: Cardiomegaly, mild vascular engorgement and prominent interstitial markings are noted. T his is slightly worse than the baseline and a mild failure or volume overload is suspected.
[2021-03-30] MEDS ORDERED: ASPIRIN 81 MG CHEWABLE TABLET ONE (14:11)
[2021-03-30] MEDS ORDERED: FUROSEMIDE 40 MG/4 ML VIAL ONE (14:46)
--- NOTE | 2021-03-30 14:47 | RAD REPORT ---
EXAM DESCRIPTION: CT - Chest For Pe Angio - 03/30/2021 2:11 pm CLINICAL HISTORY: SOB COMPARISON: Thorax Wo Con dated 03/23/2021; Chest Single View dated 03/30/2021; Thorax Wo Con dated 06/2018 TECHNIQUE: Dynamically enhanced 3 mm thick images of the chest were obtained during administration o f approximately 150mL Isovue 370 IV contrast. Coronal and oblique MIP reconstruction images were gene rated and reviewed. Exam utilizes a protocol to evaluate the pulmonary arterial tree. All CT scans are performed using dose optimization technique as appropriate and may include automated exposure control or mA/KV adjustment according to patient size. FINDINGS: No pulmonary emboli are identified. The aorta as imaged shows no acute or suspicious finding. Significant cardiomegaly is present without pericardial effusion. Moderate size bilateral pleural effusions are present worse on the right increased slightly from March 23 imaging. Motion accentuates the interstitial pattern. Pleural effusions cause bilateral lower lobe partial compressive atelectasis. Prominent perihilar soft tissues on the right cause narrowing of th e right middle lobe bronchus. There is partial atelectasis. Soft tissue opacification is present in t he right hilum contributing to the right middle lobe bronchial narrowing and parenchymal opacificatio n. Parenchymal opacification is not substantially different over the short interval. . No pneumothora x is present. Numerous mediastinal and hilar calcifications are present similar to prior imaging. No chest wall mas ses or abnormal axillary lymphadenopathy. IMPRESSION: No pulmonary emboli identified. Mildly large bilateral pleural effusions, right greater than left, increased from March [address] CT study. Pronounced cardiomegaly. There is an overall interstitial opacification pattern and significant fluid retention pattern in the subcutaneous tissues.
--- NOTE | 2021-03-30 14:53 | EDPHYS ---
Physician Documentation [facility] Name: Jimbo Cat Age: 80 yrs Sex: Male : 1940 Arrival Date: 03/30/2021 Time: 12:39 Bed 6 Private MD: ED Physician Rhys Dent HPI: 03/30 12:50 This 80 yrs old Male presents to ER via EMS with complaints of Shortness Of cp Breath. 12:50 The patient has shortness of breath at rest. Onset: The symptoms/episode began/occurred cp gradually, and became worse today. Duration: The symptoms are continuous, and are steadily getting worse. 12:50 Associated signs and symptoms: Pertinent positives: non-productive cough, Pertinent cp negatives: chest pain, diaphoresis, fever. 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 - Social history:: Smoking status: Patient denies any tobacco usage or history of. ROS: 12:55 Constitutional: Negative for body aches, chills, fever, poor PO intake. cp 12:55 Eyes: Negative for injury, pain, redness, and discharge. cp 12:55 ENT: Negative for ear pain, sore throat, difficulty swallowing, difficulty handling secretions. 12:55 Cardiovascular: Negative for chest pain. 12:55 Respiratory: Positive for cough, shortness of breath, at rest. 12:55 Abdomen/GI: Negative for abdominal pain, nausea, vomiting, and diarrhea. 12:55 Back: Negative for radiated pain. 12:55 : Negative for urinary symptoms. 12:55 Neuro: Negative for altered mental status, headache, syncope, weakness. 12:55 All other systems are negative. Exam: 13:05 Constitutional: The patient appears alert, awake, non-diaphoretic, non-toxic, well cp developed, well nourished, in obvious distress, moderately distressed. 13:05 Head/Face: Normocephalic, atraumatic. cp 13:05 Eyes: Periorbital structures: appear normal, Pupils: equal, round, and reactive to light and accomodation, Extraocular movements: intact throughout, Conjunctiva: normal, no exudate, no injection, Sclera: no appreciated abnormality, Lids and lashes: appear normal, bilaterally. 13:05 ENT: External ear(s): are unremarkable, Nose: is normal, Mouth: Lips: moist, Oral mucosa: moist, Posterior pharynx: Airway: no evidence of obstruction, patent. 13:05 Neck: ROM/movement: is normal, is supple, without pain, no range of motions limitations. 13:05 Chest/axilla: Inspection: normal, Palpation: is normal, no crepitus, no tenderness. 13:05 Cardiovascular: Rate: normal, Rhythm: regular, Edema: ankle edema, that is very mild, JVD: is not appreciated. 13:05 Respiratory: moderate respiratory distress is noted, Respirations: labored breathing, that is moderate, intercostal retractions, that is moderate, Breath sounds: decreased breath sounds, that are moderate, diffuse, wheezing: that is mild, is heard diffusely. 13:05 Abdomen/GI: Inspection: abdomen appears normal, Bowel sounds: active, all quadrants, Palpation: abdomen is soft and non-tender, in all quadrants. 13:05 Neuro: Orientation: to person, place \T\ time. Mentation: is normal, Motor: moves all fours, strength is normal. 13:12 ECG was reviewed by the Attending Physician. cp Vital Signs: 12:32 BP 189 / 84; Pulse 60; Resp 42; Temp 98; Pulse Ox 98% on Nebulizer Mask; Weight 67 kg; sv Height 5 ft. 7 in. (170.18 cm); Pain 0/10; 13:43 BP 149 / 88; Pulse 63; Resp 18; Pulse Ox 100% on BiPAP; sv 14:15 BP 163 / 78; Pulse 62; Resp 17; Pulse Ox 100% on 4 lpm NC; sv 15:39 Pulse 63; Resp 16; Pulse Ox 99% on 2 lpm NC; sv 16:30 BP 137 / 80; Pulse 60; Resp 13; Pulse Ox 99% on 4 lpm NC; sv 19:48 BP 128 / 66; Pulse 60; Resp 16; Temp 98.6; Pulse Ox 100% ; ea 12:32 Body Mass Index 23.13 (67.00 kg, 170.18 cm) sv MDM: 12:45 Patient medically screened. cp 14:11 Data reviewed: vital signs, nurses notes, lab test result(s), EKG, radiologic studies, cp plain films. Test interpretation: by ED physician or midlevel provider: ECG, plain radiologic studies. Physician consultation: JarrettLavonne KINGSLEY was called at 14:12, left message on voicemail. 14:45 Physician consultation: Jarrett Britney KINGSLEY was contacted at 14:45, regarding admission, cp to the telemetry unit. patient's condition. 03/30 12:45 Order name: Basic Metabolic Panel; Complete Time: 13:26 cp 03/30 13:27 Interpretation: Normal except: NA 124; CL 92; GLUC 132; BUN 28; CRE 1.36; GFR 51. cp 03/30 12:45 Order name: CBC with Diff; Complete Time: 13:26 cp 03/30 13:27 Interpretation: Normal except: WBC 4.90; RBC 3.19; HGB 10.3; HCT 29.5; PLT 194; MPV cp 7.5; LYM% 13.9; EOSINOPHIL % 9.0; BASO% 1.4. 03/30 12:45 Order name: LFT's; Complete Time: 13:26 cp 03/30 12:45 Order name: Magnesium; Complete Time: 13:26 cp 03/30 12:45 Order name: NT PRO-BNP; Complete Time: 13:26 cp 03/30 12:45 Order name: PT-INR; Complete Time: 13:26 cp 03/30 12:43 Order name: BIPAP sv 03/30 12:45 Order name: Troponin (emerg Dept Use Only); Complete Time: 13:26 cp 03/30 12:45 Order name: XRAY Chest (1 view); Complete Time: 14:09 cp 03/30 13:28 Order name: CT Chest For PE Angio; Complete Time: 14:53 cp 03/30 13:40 Order name: Urine Dipstick-Ancillary; Complete Time: 14:09 EDMS 03/30 14:09 Interpretation: Normal except: UBLD 2+; UPROT 3+. cp 03/30 14:26 Order name: SARS-COV-2 RT PCR; Complete Time: 14:39 EDMS 03/30 14:53 Order name: ABG 03/30 12:45 Order name: EKG; Complete Time: 12:46 03/30 12:45 Order name: Cardiac monitoring; Complete Time: 12:45 03/30 12:45 Order name: EKG - Nurse/Tech; Complete Time: 13:00 03/30 12:45 Order name: IV Saline Lock; Complete Time: 12:46 03/30 12:45 Order name: Labs collected and sent; Complete Time: 13:00 03/30 12:45 Order name: O2 Per Protocol; Complete Time: 12:46 03/30 12:45 Order name: O2 Sat Monitoring; Complete Time: 12:46 03/30 13:30 Order name: Misc. Order: discontinue fluids; Complete Time: 13:33 03/30 15:25 Order name: Social Service Consult EDMS EC:12 Rate is 60 beats/min. Rhythm is regular, Paced. UT interval is normal. QRS interval is cp prolonged at 116 msec. QT interval is normal. T waves are Inverted in leads I, aVL, aVR, V2. Interpreted by me. Reviewed by me. Administered Medications: 12:43 Drug: Xopenex (levalbuterol) (3) 1.25 mg Route: Inhalation; sv 13:58 Drug: Aspirin Chewable Tablet 324 mg Route: PO; sv 14:38 Follow up: Response: No adverse reaction sv 14:37 Drug: Lasix (furosemide) 40 mg Route: IVP; Site: left forearm; sv 14:40 Follow up: Response: No adverse reaction sv Disposition: 15:28 Co-signature as Attending Physician, Rhys Dent MD I agree with the assessment and rn plan of care. Attestation: The patient's history, exam findings, diagnostics, and a summary of any interventions or procedures was reviewed in detail with Terry CHIU. 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 EDOK EDMS 14:55 14:55 Pleural effusion in other conditions classified elsewhere cp cp 17:21 14:52 Telemetry/MedSurg (Inpatient) cp sv 17:21 14:52 cp sv 18:46 17:21 BR ER HOLD sv rd1 18:46 17:21 ERHOLD- sv rd1 03/31 07:14 07 12:50 Patient reports finishing course of antibiotics last week w/o improvement cp of symptoms. cp
--- NOTE | 2021-03-30 14:53 | ER ---
Nurse's Notes [facility] Name: Jimbo Cat Age: 80 yrs Sex: Male : 1940 Arrival Date: 03/30/2021 Time: 12:39 Bed 6 Private MD: Diagnosis: COPD/ Chronic obstructive pulmonary disease with (acute) exacerbation;Acute on chronic combined systolic (congestive) and diastolic (congestive) heart failure;Pleural effusion in other conditions classified elsewhere-bilateral Presentation: 03/30 12:32 Chief complaint: EMS states: SOB and dyspnea x 3 days. 20G L FA, Solumedrol 125 mg IVP, sv A\T\A given, NS 300 mls. BS-115. 12:32 Acuity: SYDNIE 1 sv 12:32 Coronavirus screen: Client denies travel out of the [place] in the last 14 days. At this sv time, the client does not indicate any symptoms associated with coronavirus-19. Ebola Screen: No symptoms or risks identified at this time. Initial Sepsis Screen: Does the patient meet any 2 criteria? RR > 20 per min. No. Patient's initial sepsis screen is negative. Does the patient have a suspected source of infection? No. Patient's initial sepsis screen is negative. Risk Assessment: Do you want to hurt yourself or someone else? Patient reports no desire to harm self or others. Onset of symptoms was March 27, 2021. 12:32 Method Of Arrival: EMS: [facility] sv Triage Assessment: 12:32 General: Appears distressed, uncomfortable, slender, Behavior is calm, cooperative, sv appropriate for age. Pain: Denies pain. Neuro: Level of Consciousness is awake, alert, obeys commands, Oriented to person, place, time, situation. Respiratory: Reports shortness of breath at rest on exertion labored breathing Airway is patent Respiratory effort is even, labored, with retractions, shallow, Respiratory pattern is symmetrical, tachypnea Onset: The symptoms/episode began/occurred 3 days ago, the patient has severe shortness of breath. Derm: Skin is pale. Musculoskeletal: Range of motion: intact in all extremities. 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 - Social history:: Smoking status: Patient denies any tobacco usage or history of. Screenin:45 Abuse screen: Denies threats or abuse. Denies injuries from another. Nutritional sv screening: No deficits noted. Tuberculosis screening: No symptoms or risk factors identified. Fall Risk None identified. Assessment: 12:40 Reassessment: Lisa RT at the bedside to place pt on BIPAP. sv 13:45 Reassessment: Patient appears in no apparent distress at this time. Patient and/or sv family updated on plan of care and expected duration. Pain level reassessed. Patient is alert, oriented x 3, equal unlabored respirations, skin warm/dry/pink. Patient states symptoms have improved. Cardiovascular: Rhythm is A-V sequential pacer. Respiratory: Airway is patent Respiratory effort is even, unlabored, Respiratory pattern is regular, symmetrical. 14:37 Reassessment: Patient appears in no apparent distress at this time. Patient and/or sv family updated on plan of care and expected duration. Pain level reassessed. Patient is alert, oriented x 3, equal unlabored respirations, skin warm/dry/pink. 15:39 Reassessment: Patient appears in no apparent distress at this time. Patient and/or sv family updated on plan of care and expected duration. Pain level reassessed. Patient is alert, oriented x 3, equal unlabored respirations, skin warm/dry/pink. 16:52 Reassessment: Patient appears in no apparent distress at this time. Patient and/or sv family updated on plan of care and expected duration. Pain level reassessed. Patient is alert, oriented x 3, equal unlabored respirations, skin warm/dry/pink. 19:48 Reassessment: Patient and/or family updated on plan of care and expected duration. Pain ea level reassessed. Patient is alert, oriented x 3, equal unlabored respirations, skin warm/dry/pink. Report called to receiving nurse on second floor. Pt admitted to second floor, left ED via stretcher per neurology tech. Pt tolerating well. Vital Signs: 12:32 BP 189 / 84; Pulse 60; Resp 42; Temp 98; Pulse Ox 98% on Nebulizer Mask; Weight 67 kg; sv Height 5 ft. 7 in. (170.18 cm); Pain 0/10; 13:43 BP 149 / 88; Pulse 63; Resp 18; Pulse Ox 100% on BiPAP; sv 14:15 BP 163 / 78; Pulse 62; Resp 17; Pulse Ox 100% on 4 lpm NC; sv 15:39 Pulse 63; Resp 16; Pulse Ox 99% on 2 lpm NC; sv 16:30 BP 137 / 80; Pulse 60; Resp 13; Pulse Ox 99% on 4 lpm NC; sv 19:48 BP 128 / 66; Pulse 60; Resp 16; Temp 98.6; Pulse Ox 100% ; ea 12:32 Body Mass Index 23.13 (67.00 kg, 170.18 cm) sv ED Course: 12:32 environmental monitoring technician on. Pulse ox on. NIBP on. sv 12:39 Patient arrived in ED. sv 12:39 Vandana Gomez, SABINE is Primary Nurse. sv 12:39 Terry Fernández PA is PHCP. cp 12:39 Rhys Dent MD is Attending Physician. cp 12:40 Maintain EMS IV. Dressing intact. Site clean \T\ dry. Gauge \T\ site: 20G L FA. sv 12:41 Triage completed. sv 12:43 Arm band placed on. sv 12:45 Patient has correct armband on for positive identification. Bed in low position. Call sv light in reach. Side rails up X2. 12:45 Door closed. Warm blanket given. Head of bed elevated. sv 12:46 BIPAP Sent. sv 12:50 Initial lab(s) drawn, by me, sent to lab. sv 13:16 XRAY Chest (1 view) In Process Unspecified. EDMS 14:10 CT Chest For PE Angio In Process Unspecified. EDMS 14:51 Jarrett Tan DO is Hospitalizing Provider. cp 15:10 ABG drawn. by RT staff, on oxygen. sv 15:39 No provider procedures requiring assistance completed. Patient admitted, IV remains in sv place. intact. 19:01 Primary Nurse role handed off by Vandana Gomez, SABINE mw2 Administered Medications: 12:43 Drug: Xopenex (levalbuterol) (3) 1.25 mg Route: Inhalation; sv 13:58 Drug: Aspirin Chewable Tablet 324 mg Route: PO; sv 14:38 Follow up: Response: No adverse reaction sv 14:37 Drug: Lasix (furosemide) 40 mg Route: IVP; Site: left forearm; sv 14:40 Follow up: Response: No adverse reaction sv Output: 17:51 Urine: 775ml (Voided); Total: 775ml. ph Outcome: 14:52 Decision to Hospitalize by Provider. cp 15:39 Condition: stable sv 15:39 Instructed on the need for admit. 17:29 Admitted to ER Hold. Please see [facility] for further documentation. sv 19:49 Patient left the ED. jasen Signatures: Dispatcher [employer] Vandana Mccoy RN RN sv Hall, Patricia, RN RN ph Page, Corey, Garima Hernández cp, RN RN ea [place], MyKena mw2 Corrections: (The following items were deleted from the chart) 12:48 12:32 Pulse 60bpm; Resp 42bpm; Pulse Ox 98% Nebulizer Mask; Temp 98F; Pain 0/10; sv sv 17:29 15:39 Admitted to Tele accompanied by tech, via wheelchair, room 218, with chart, sv Report called to Bety cadena
--- NOTE | 2021-03-30 14:56 | P.HP ---
Certification for Inpatient Patient admitted to: Inpatient With expected LOS: >2 Midnights Patient will require the following post-hospital care: Home Health Services (with home oxygen) Practitioner: I am a practitioner with admitting privileges, knowledge of patient current condition, hospital course, and medical plan of care. Services: Services provided to patient in accordance with Admission requirements found in Title 42 Section 412.3 of the Code of Federal Regulations Patient History Date of Service: 03/30/21 Primary Care Provider: Dr. Powell; Cardiology-Dr. Arenas Reason for admission: Shortness of breath, edema to the lower extremities History of Present Illness: 80-year-old male with history of chronic systolic CHF with pacemaker defibrillator, chronic renal disease, chronic hyponatremia, COPD, hypertension and Parkinson's. Patient presented to the ER with increasing shortness of breath. Patient reported increasing shortness of breath since last night. He also reported increase in edema. Patient has had multiple admissions for COPD and CHF. Patient noncompliant with his fluid restriction. Patient reports that he takes his medication. Patient denies any alcohol use. He denies any fever, chills. Denies any significant nausea or vomiting. In the ER patient was found to be hypoxic. Patient required BiPAP in the emergency room. This improved with diuresis. Patient now on nasal cannula. He did not want to be on the BiPAP anymore. White count 4.9, hemoglobin 10.3. Platelet count 194. Sodium 124, potassium 3.9. BUN of 28, creatinine 1.36 with a GFR 51. Glucose 132. Troponin 0 0.04. BNP elevated at 8926. CT scan shows bilateral large pleural effusions. Patient admitted for further evaluation and treatment. Allergies No Known Allergies Allergy (Verified 03/23/21 04:35) Home medications list reviewed: Yes Home Medications: Furosemide [Lasix] 40 mg PO DAILY 30 Days #30 tab 03/23/21 Metoprolol Succinate [Toprol Xl*] 25 mg PO DAILY 03/23/21 Primidone 250 mg PO QID 03/23/21 Sacubitril/Valsartan [Entresto 49 mg-51 mg Tablet] 1 tab PO BID #60 tab 03/23/21 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 , 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 - Family History Father -: Heart disease Mother -: Heart disease, Hypertension, Diabetes, Cancer - Social History Smoking Status: Unknown if ever smoked Alcohol use: No CD- Drugs: No Caffeine use: No Place of Residence: Home Review of Systems General: Weakness, As per HPI Eyes: Unremarkable ENT: Unremarkable Respiratory: Shortness of Breath, SOB with Excertion, As per HPI Cardiovascular: Edema, As per HPI Gastrointestinal: Unremarkable Genitourinary: Unremarkable Musculoskeletal: Pedal edema, As per HPI Integumentary: Unremarkable Neurological: Unremarkable Lymphatics: Unremarkable Physical Examination - Studies Laboratory Data (last 24 hrs) 03/30/21 12:50: PT 12.6 H, INR 1.09 03/30/21 12:50: WBC 4.90 D, Hgb 10.3 L, Hct 29.5 L, Plt Count 194 D 03/30/21 12:50: Sodium 124 L, Potassium 3.9, BUN 28 H, Creatinine 1.36 H, Glucose 132 H, Magnesium 1.8, Total Bilirubin 0.4, AST 27, ALT 36, Alkaline Phosphatase 96 Assessment and Plan - Plan Previous ECHO 2018: MEASUREMENTS (cm) DIASTOLIC (NORMALS) SYSTOLIC (NORMALS) IVSd 1.1 (0.6-1.2) LA Diam 6.0 (1.9-4.0) LVEF 33% LVIDd 7.3 (3.5-5.7) LVIDs 6.2 (2.0-3.5) %FS 16% LVPWd 1.1 (0.6-1.2) Ao Diam 2.8 (2.0-3.7) 2 DIMENSIONAL ASSESSMENT: RIGHT ATRIUM: DILATED LEFT ATRIUM: DILATED RIGHT VENTRICLE: DILATED LEFT VENTRICLE: DILATED TRICUSPID VALVE: NORMAL MITRAL VALVE: MITRAL ANNULAR CALCIFICATION PULMONIC VALVE: NORMAL AORTIC VALVE: SCLEROSIS PERICARDIAL EFFUSION: NONE AORTIC ROOT: NORMAL LEFT VENTRICULAR WALL MOTION: SEVERE GOLBAL HYOKINEIS DOPPLER/COLOR FLOW: MILD MITRAL AND TRICUSPID REGURGITATION. COMMENTS: SEVERE GLOBAL HYPOKINESIS. FOUR CHAMBER DILATATION. AUTOMATIC INTERNAL CARDIAC DEFIBRILLATOR. / PACEMAKER IN RIGHT VENTRICULAR APEX MITRAL ANNULAR CALCIFCATION. AORTIC SCLEROSIS. MILD MITRAL AND TRICUSPID REGURGITATION, CT scan: COMPARISON: Thorax Wo Con dated 03/23/2021; Chest Single View dated 03/30/2021; Thorax Wo Con dated 06/28/2018 TECHNIQUE: Dynamically enhanced 3 mm thick images of the chest were obtained during administration of approximately 150mL Isovue 370 IV contrast. Coronal and oblique MIP reconstruction images were generated and reviewed. Exam utilizes a protocol to evaluate the pulmonary arterial tree. All CT scans are performed using dose optimization technique as appropriate and may include automated exposure control or mA/KV adjustment according to patient size. FINDINGS: No pulmonary emboli are identified. The aorta as imaged shows no acute or suspicious finding. Significant cardiomegaly is present without pericardial effusion. Moderate size bilateral pleural effusions are present worse on the right increased slightly from March 23 imaging. Motion accentuates the interstitial pattern. Pleural effusions cause bilateral lower lobe partial compressive atelectasis. Prominent perihilar soft tissues on the right cause narrowing of the right middle lobe bronchus. There is partial atelectasis. Soft tissue opacification is present in the right hilum contributing to the right middle lobe bronchial narrowing and parenchymal opacification. Parenchymal opacification is not substantially different over the short interval. . No pneumothorax is present. Numerous mediastinal and hilar calcifications are present similar to prior imaging. No chest wall masses or abnormal axillary lymphadenopathy. IMPRESSION: No pulmonary emboli identified. Mildly large bilateral pleural effusions, right greater than left, increased from March [address] study[address] Pronounced cardiomegaly. There is an overall interstitial opacification pattern and significant fluid retention pattern in the subcutaneous tissues. Physical Exam: GENERAL: The patient is a well-developed, well-nourished, in no apparent distress. Alert and oriented x3. VITAL SIGNS: Reviewed HEENT: Mild JVD. NECK: Supple. No carotid bruits. No lymphadenopathy or thyromegaly. LUNGS: Decreased at the bases with crackles bilateral. Patient on 4 L per nasal cannula HEART: Regular rate and rhythm, no appreciable gallops, rubs, murmurs or extra heart sounds ABDOMEN: Soft, nontender, and nondistended. Positive bowel sounds. No hep atosplenomegaly was noted. EXTREMITIES: 1+ pedal edema to the lower extremities bilateral NEUROLOGIC: The patient is oriented to person, place and time. Strength and sensation are grossly intact. Face is symmetric. SKIN: Normal color, turgor and temperature. No ulcerations or rashes noted. Impression: Dyspnea secondary to acute on chronic respiratory failure with hypoxia/bilateral pleural effusions secondary to acute on chronic systolic CHF with internal cardiac pacemaker defibrillator with prior EF of 33 % COPD Chronic hyponatremia Chronic renal failure stage III Hypertension Parkinson's Plan: Dyspnea secondary to acute on chronic respiratory failure with hypoxia/bilateral pleural effusions secondary to acute on chronic systolic CHF with internal cardiac pacemaker defibrillator with prior EF of 33%: Patient will be admitted for further evaluation and treatment. Patient was on BiPAP now on nasal cannula at 4L/min. Will continue to monitor maintain oxygen saturations below 93 percent. Respiratory consulted to help with this. Continue with aggressive IV diuresisLasix 40 mg 3 times a day. Continue 1500 cc/day fluid restriction and low-salt diet. Monitor input and output closely along with daily weights. Patient noncompliant with fluid restriction at home. Patient does not have home oxygen at home. Patient will likely require home oxygen at discharge. Recheck echocardiogram. Recheck chest x-ray tomorrow to monitor his progress. Restart Entresto. DVT prophylaxisheparin in place. Social work to help arrange for home health and oxygen at discharge. Will consult cardiology for further recommendation. Will also consult nephrology for recommendations. Anticipate improvement over the next 48 to 72 hours. Advanced care planning addressed in detail. Patient is DO NOT RESUSCITATE. COPD: Will provide medication for COPD. Maintain oxygen above 93 percent. Hypertension: Will restart Toprol-XL 25 mg daily. Continue with Entresto twice daily. Chronic hyponatremia: Will monitor sodium level closely. Await recommendations from nephrology. Chronic renal failure stage III: Will monitor renal function closely. Nephrology consulted to further assist. Parkinson's: Restart primidone 250 mg 4 times a day. Code Status: DNR DVT prophylaxis: Heparin Advanced Care Planning-30 minutes: Patient will likely require home health and physical therapy at discharge along with home oxygen. Discharge Plan: Home Plan to discharge in: 72 Hours - Advance Directives Does patient have a Living Will: No Does patient have a Durable POA for Healthcare: No - Code Status/Comfort Care Code Status Assessed: Yes (Patient is DNR) Time Spent Managing Pts Care (In Minutes): 55
[2021-03-30 15:14] LABS: Arterial Blood Carboxyhemoglob 1.5 % (0-1.5); Blood O2 Saturation 97.4 % (92-98.5)
--- NOTE | 2021-03-30 16:03 | EKG ---
Test Date: 2021-03-30 Test Time: 13:06:57 Buyer Assistant: DONNIE MEASUREMENT RESULTS: Intervals: Rate: 60 MD: 114 QRSD: 116 QT: 432 QTc: 432 [place]: P: 92 MD: 114 QRS: -73 T: 117 INTERPRETIVE STATEMENTS: Electronic ventricular pacemaker Left axis deviation Inferior-posterior infarct, possibly acute Anterior infarct, age undetermined Consider right ventricular involvement in acute inferior infarct Abnormal ECG Compared to ECG 03/22/2021 23:09:28 Left-axis deviation now present ST (T wave) deviation now present Possible ischemia now present Electronically Signed On 03-30-21 16:03:26 CDT by Max Pro
[2021-03-30] MEDS ORDERED: ALBUTEROL 2.5 MG/3 ML NEB SOL NEB PRN (17:19)
[2021-03-30] MEDS ORDERED: ACETAMINOPHEN 500 MG TAB PO PRN (17:19)
[2021-03-30] MEDS ORDERED: IPRATROPIUM BROM 0.5MG/2.5ML NEB PRN (17:19)
[2021-03-30] MEDS ORDERED: ONDANSETRON 4 MG/2 ML VIAL IV PRN (17:19)
[2021-03-30 17:30] VITALS: BMI 23.1
[2021-03-30] MEDS ORDERED: FUROSEMIDE 40 MG/4 ML VIAL IV SCH (21:00)
[2021-03-30 21:23] LABS: Troponin I 0.04 ng/mL (0.0-0.045)
[2021-03-30] MEDS: SACUBITRIL/VALSARTAN 49/51 MG TAB PO SCH (21:23)
[2021-03-30] MEDS: HEPARIN 5000 UNIT/ML 1 ML VIAL SQ SCH (21:25)
[2021-03-31 05:01] LABS: Absolute Lymphocytes (CBC) 0.3 K/uL (0.7-4.9); Basophils % 0.8 % (0-1.3); Hematocrit 28.6 % (39.6-49.0); Lymphocytes % 11.9 % (15.3-44.8); MPV 7.5 fL (7.6-11.3); RBC Red Blood Cell Count 3.13 M/uL (4.33-5.43)
[2021-03-31 05:25] LABS: Magnesium 1.7 mg/dL (1.8-2.4); Potassium 3.8 mmol/L (3.5-5.1)
[2021-03-31 05:31] LABS: CKMB Creatine Kinase MB 1.2 ng/mL (1.0-3.6); Troponin I 0.05 ng/mL (0.0-0.045)
[2021-03-31] MEDS: METOPROLOL XL 25 MG TAB PO SCH (05:53)
--- NOTE | 2021-03-31 06:15 | P.PN ---
Subjective Date of Service: 03/31/21 Primary Care Provider: Dr. Powell; Cardiology-Dr. Arenas Chief Complaint: Shortness of breath, edema to the lower extremities Subjective: Improving, Doing well Physical Examination - Vital Signs Temperature: 97.1 F Blood Pressure: 146/76 Pulse: 70 Respirations: 18 Pulse Ox (%): 100 - Studies Laboratory Data (last 24 hrs) 03/30/21 12:50: PT 12.6 H, INR 1.09 03/30/21 12:50: WBC 4.90 D, Hgb 10.3 L, Hct 29.5 L, Plt Count 194 D 03/30/21 12:50: Sodium 124 L, Potassium 3.9, BUN 28 H, Creatinine 1.36 H, Glucose 132 H, Magnesium 1.8, Total Bilirubin 0.4, AST 27, ALT 36, Alkaline Phosphatase 96 Assessment & Plan Discharge Plan: Home Plan to discharge in: 24 Hours Physician Review Additional Text: Previous ECHO 2018: MEASUREMENTS (cm) DIASTOLIC (NORMALS) SYSTOLIC (NORMALS) IVSd 1.1 (0.6-1.2) LA Diam 6.0 (1.9-4.0) LVEF 33% LVIDd 7.3 (3.5-5.7) LVIDs 6.2 (2.0-3.5) %FS 16% LVPWd 1.1 (0.6-1.2) Ao Diam 2.8 (2.0-3.7) 2 DIMENSIONAL ASSESSMENT: RIGHT ATRIUM: DILATED LEFT ATRIUM: DILATED RIGHT VENTRICLE: DILATED LEFT VENTRICLE: DILATED TRICUSPID VALVE: NORMAL MITRAL VALVE: MITRAL ANNULAR CALCIFICATION PULMONIC VALVE: NORMAL AORTIC VALVE: SCLEROSIS PERICARDIAL EFFUSION: NONE AORTIC ROOT: NORMAL LEFT VENTRICULAR WALL MOTION: SEVERE GOLBAL HYOKINEIS DOPPLER/COLOR FLOW: MILD MITRAL AND TRICUSPID REGURGITATION. COMMENTS: SEVERE GLOBAL HYPOKINESIS. FOUR CHAMBER DILATATION. AUTOMATIC INTERNAL CARDIAC DEFIBRILLATOR. / PACEMAKER IN RIGHT VENTRICULAR APEX MITRAL ANNULAR CALCIFCATION. AORTIC SCLEROSIS. MILD MITRAL AND TRICUSPID REGURGITATION, CT scan: COMPARISON: Thorax Wo Con dated 03/23/2021; Chest Single View dated 03/30/2021; Thorax Wo Con dated 06/28/2018 TECHNIQUE: Dynamically enhanced 3 mm thick images of the chest were obtained during administration of approximately 150mL Isovue 370 IV contrast. Coronal and oblique MIP reconstruction images were generated and reviewed. Exam utilizes a protocol to evaluate the pulmonary arterial tree. All CT scans are performed using dose optimization technique as appropriate and may include automated exposure control or mA/KV adjustment according to patient size. FINDINGS: No pulmonary emboli are identified. The aorta as imaged shows no acute or suspicious finding. Significant cardiomegaly is present without pericardial effusion. Moderate size bilateral pleural effusions are present worse on the right increased slightly from March 23 imaging. Motion accentuates the interstitial pattern. Pleural effusions cause bilateral lower lobe partial compressive atelectasis. Prominent perihilar soft tissues on the right cause narrowing of the right middle lobe bronchus. There is partial atelectasis. Soft tissue opacification is present in the right hilum contributing to the right middle lobe bronchial narrowing and parenchymal opacification. Parenchymal opacification is not substantially different over the short interval. . No pneumothorax is present. Numerous mediastinal and hilar calcifications are present similar to prior imagi ng. No chest wall masses or abnormal axillary lymphadenopathy. IMPRESSION: No pulmonary emboli identified. Mildly large bilateral pleural effusions, right greater than left, increased from March [address] study[address] Pronounced cardiomegaly. There is an overall interstitial opacification pattern and significant fluid retention pattern in the subcutaneous tissues. Follow-up chest x-ray: COMPARISON: March 30 2021 FINDINGS: Mild bilateral pulmonary opacities without significant change Pleural effusions appear unchanged. The heart remains enlarged. Pacemaker leads in place Echocardiogram: Ordered Physical Exam: GENERAL: The patient is a well-developed, well-nourished, in no apparent distress. Alert and oriented x3. VITAL SIGNS: Reviewed HEENT: Mild JVD. NECK: Supple. No carotid bruits. No lymphadenopathy or thyromegaly. LUNGS: Significant improvement since yesterday. Better air movement bilateral. Currently on 1 to 2 L per nasal minute HEART: Regular rate and rhythm, no appreciable gallops, rubs, murmurs or extra heart sounds ABDOMEN: Soft, nontender, and nondistended. Positive bowel sounds. No hepatosplenomegaly was noted. EXTREMITIES: No significant edema noted to the lower extremities. NEUROLOGIC: The patient is oriented to person, place and time. Strength and sensation are grossly intact. Face is symmetric. SKIN: Normal color, turgor and temperature. No ulcerations or rashes noted. Impression: Dyspnea secondary to acute on chronic respiratory failure with hypoxia/bilateral pleural effusions secondary to acute on chronic systolic CHF with internal cardiac pacemaker defibrillator with prior EF of 33 % COPD Chronic hyponatremia Chronic renal failure stage III Hypertension Parkinson's Plan: Dyspnea secondary to acute on chronic respiratory failure with hypoxia/bilateral pleural effusions secondary to acute on chronic systolic CHF with internal cardiac pacemaker defibrillator with prior EF of 33%: Patient has improved. Patient down to 1 L of nasal cannula. As the patient continued to do well in the morning patient was evaluated by respiratory on whether patient will qualify for oxygen. They were able to wean him off oxygen. Patient at this time does not qualify for oxygen. Will decrease IV Lasix to 40 twice daily. Continue 1500 cc/day fluid restriction. We will teach on fluid restriction and monitor input output closely. Echocardiogram pending. Case discussed with cardiology. Continue with Entresto. Continue with current plan of care likely discharge tomorrow. I will turn to service her over to the hospitalist team tomorrow. I will go plan of care with him. Patient is DO NOT RESUSCITATE. COPD: Continue with COPD medication. Respiratory reports patient does not qualify for home oxygen. Hypertension: Continue Toprol-XL 25 mg daily. Continue with Entresto twice daily. Chronic hyponatremia: Improved. Will monitor sodium level closely. Await recommendations from nephrology. Chronic renal failure stage III: Will monitor renal function closely. Nephrology consulted to further assist. Parkinson's: Continue primidone 250 mg 4 times a day. Code Status: DNR DVT prophylaxis: Heparin Advanced Care Planning-30 minutes: Patient will likely require home health and physical therapy at discharge along with home oxygen. Time Spent Managing Pts Care (In Minutes): 55
[2021-03-31 07:20] LABS: Urine Appearance CLEAR (Clear); Urine Bilirubin NEGATIVE (Negative); Urine Blood 1+ (Negative); Urine Color YELLOW (Yellow); Urine Glucose NEGATIVE (Negative); Urine Protein 2+ (Negative); Urine Specific Gravity <=1.005 (1.005-1.030); Urine Urobilinogen 0.2 mg/dL (0.2-1.0); Urine pH 6.5 (5.0-7.0)
[2021-03-31 07:27] LABS: Urine Microscopic Reflex ORDER UMIC
[2021-03-31 07:36] LABS: Urine RBC <5 /HPF (NONE SEEN)
[2021-03-31 07:37] LABS: Urine Bacteria NONE SEEN /HPF (NONE SEEN)
--- NOTE | 2021-03-31 08:02 | RAD REPORT ---
EXAM DESCRIPTION: Daniel Single View03/31/2021 5:39 am CLINICAL HISTORY: Chest pain COMPARISON: March 30 2021 FINDINGS: Mild bilateral pulmonary opacities without significant change Pleural effusions appear unchanged. The heart remains enlarged. Pacemaker leads in place
[2021-03-31] MEDS ORDERED: MAGNESIUM SULFATE 1 gm IVPB 1 GM/100 ML BAG IV ONE (09:00)
[2021-03-31] MEDS ORDERED: POTASSIUM CL SA 10 MEQ TAB PO ONE (09:00)
[2021-03-31] MEDS: ASPIRIN EC 81 MG TAB PO SCH (10:10)
[2021-03-31] MEDS: SACUBITRIL/VALSARTAN 49/51 MG TAB PO SCH ×2 (10:11→21:16)
[2021-03-31] MEDS: HEPARIN 5000 UNIT/ML 1 ML VIAL SQ SCH ×2 (10:13→21:16)
[2021-03-31] MEDS: FUROSEMIDE 40 MG/4 ML VIAL IV SCH ×2 (10:31→16:41)
--- NOTE | 2021-03-31 14:39 | CON ---
History Of Present Illness: The patient is alert, awake and comfortable. He presented to the hospit al yesterday with shortness of breath getting worse. He has been in the hospital before with similar complaints. He has a history of congestive heart failure. At last hospitalization required thorace ntesis. He has slightly low sodium, came in with 124, but with diuresis, he is feeling better. His breathing has improved and also sodium has come up to 130. Past Medical History: Consistent for CHF, multiple hospitalizations for that; history of coronary ar pancho disease; history of low ejection fraction; history of CVA; pacemaker defibrillator placement; hi story of chronic hyponatremia in the setting of volume overload; chronic systolic heart failure. His tory also reviewed from the chart. Psychosocial And Personal History: 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 . 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 He is alert awake and able to answer questions appropriately. Family History: Noncontributory. Social History: Does not currently smoke. Does not use any drugs or alcohol in excess. Seems to be in good mood. No SI or homicidal ideation. Medications: In the chart reviewed. CT scan x-ray consistent with volume overload. Physical Examination: Vital signs: Reasonably stable with blood pressure slightly on the higher side, 159/79; pulse of 60; respirations around 18, O2 sats are in high 90 range, but the patient is on oxygen. Lungs: Clear to auscultation with crackles at the bases and decreased breath sounds. Abdomen: Soft. Extremities: Reveal trace edema bilaterally. Laboratory Data: Reviewed. WBC 2.9, hemoglobin 10, hematocrit 28.6, platelet count 170. Sodium 130 , this is an improvement from 124; creatinine 3.8; chloride 95; bicarb 27; BUN creatinine 35 and 1.67 . This is a change from 28/1.36 in the setting of the patient getting diuresis. Magnesium 1.7, calc ium 8.3, proBNP of 8926, albumin of 3.6. Assessment And Plan: The patient with shortness of breath, chronic kidney disease with perhaps some acute component of acute kidney injury, presents with shortness of breath and volume overload. X-ray consistent with congestion. The patient has a low EF and chronic systolic heart failure. His low s odium is likely in the setting of hypovolemia and congestive heart failure. At this point, agree marissa ferris Lasix at a regular dosing. We will go ahead and change Lasix dosing to 3 times a day and give him a dose currently. The patient's blood pressure is on the higher side, but that should also improve w ith his volume status improving. Salt restriction counseled. Avoid NSAIDs. The patient's Parkinson 's seems to be stable on current medication. He has chronic hyponatremia. It has already improved f rom 124 to 130 with some diuresis overnight. /FAITH Voice ID: [id number] Report ID: [id number]
--- NOTE | 2021-03-31 21:13 | CON ---
Date of Consultation: 03/31/2021 Reason For Consultation: Acute renal failure and congestive heart failure. History Of Present Illness: Mr. Cat is a 80-year-old male. He is a DNR. He has a history of alcoh ol, dementia, coronary artery disease, COPD, depression, CVA, dyslipidemia, parkinsonism, congestive heart failure, diabetes, hypertension. He is status post pacemaker and defibrillator. He came in wi th acute renal failure. Creatinine 1.67. He is 100% paced. He has a known ejection fraction of 33% in 2018. Another echo is pending. Came in with PND, orthopnea, pedal edema, palpitations and no sy ncope. Denied fever or chills. Past Medical History: As stated above. Allergies: NONE. Review of Systems: Negative. Social History: Negative. Family History: Noncontributory. Medications: At home which include Lasix, Entresto and prednisone. Physical Examination: General: He was in mild respiratory distress. Vital Signs: Stable. Paced rhythm, afebrile. HEENT: Negative. Neck: Supple without any bruit, lymphadenopathy, JVD, or thyromegaly. Chest: Revealed rales both bases. Cardiac: Revealed a paced rhythm with no gallops, murmurs or rubs. Abdomen: Benign. Extremities: Revealed 1+ edema. Diagnostic Data: As stated earlier. Chest x-ray showed mild CHF. EKG showed paced rhythm. Impression And Plan: 1.Acute on chronic systolic congestive heart failure exacerbation. The patient needs to be back on Lasix, metoprolol, and Entresto. We need to watch his creatinine. 2.Status post pacemaker and defibrillator, which seem to be stable. 3.Alcohol abuse history. 4.Dementia. 5.Coronary artery disease, stable. 6.Chronic obstructive pulmonary disease, stable. 7.History of cerebrovascular accident, resolved. 8.History of depression. 9.Dyslipidemia, stable. 10.Diabetes, stable. 11.Parkinsonism, stable. 12.Hypertension, well controlled. I think it would be reasonable to do another echo on Mr. Cat. I think he needs to be on Entresto, metoprolol, and Lasix. He needs to have close followup. He need to be instructed on low sodium and l ow fluid intake and compliance. I will continue to follow. NB/MODL Voice ID: [id number] Report ID: [id number]
[2021-04-01 04:08] LABS: Absolute Lymphocytes (CBC) 0.4 K/uL (0.7-4.9); Basophils % 1.9 % (0-1.3); Hematocrit 27.5 % (39.6-49.0); Lymphocytes % 11.7 % (15.3-44.8); MPV 7.8 fL (7.6-11.3); RBC Red Blood Cell Count 2.95 M/uL (4.33-5.43)
[2021-04-01 04:35] LABS: Magnesium 1.8 mg/dL (1.8-2.4); Potassium 3.9 mmol/L (3.5-5.1)
[2021-04-01 05:19] LABS: Blood Morphology Comment NOT SEEN (NOT SEEN); Platelet Estimate ADEQ
[2021-04-01] MEDS: METOPROLOL XL 25 MG TAB PO SCH (05:54)
[2021-04-01] MEDS ORDERED: POTASSIUM CL SA 10 MEQ TAB PO ONE (09:00)
[2021-04-01] MEDS ORDERED: MAGNESIUM SULFATE 1 gm IVPB 1 GM/100 ML BAG IV ONE (09:00)
--- NOTE | 2021-04-01 09:08 | ECHO ---
HEIGHT: 5 ft 7 in WEIGHT: 146 lb 12.8 oz DATE OF STUDY: 03/31/[address]: Jarrett Tan DO 2-DIMENSIONAL: YES M.MODE: YES DOPPLER: YES COLOR FLOW: YES TDS: NO PORTABLE: NO DEFINITY: NO BUBBLE STUDY: NO DIAGNOSIS: CONGESTIVE HEART FAILURE, SYSTOLIC, PRIOR EF OF 33% CARDIAC HISTORY: CATHERIZATION: NO SURGERY: NO PROSTHETIC VALVE: NO PACEMAKER: YES MEASUREMENTS (cm) DIASTOLIC (NORMALS) SYSTOLIC (NORMALS) IVSd 1.1 (0.6-1.2) LA Diam 5.8 (1.9-4.0) LVEF 30-35% LVIDd 7.2 (3.5-5.7) LVIDs 5.3 (2.0-3.5) %FS % LVPWd 1.2 (0.6-1.2) Ao Diam 2.5 (2.0-3.7) 2 DIMENSIONAL ASSESSMENT: RIGHT ATRIUM: NORMAL LEFT ATRIUM: DILATED RIGHT VENTRICLE: NORMAL LEFT VENTRICLE: DILATED TRICUSPID VALVE: NORMAL MITRAL VALVE: NORMAL PULMONIC VALVE: NORMAL AORTIC VALVE: NORMAL PERICARDIAL EFFUSION: NONE AORTIC ROOT: NORMAL LEFT VENTRICULAR WALL MOTION: SEVERE GLOBAL HYPOKINESIS. DOPPLER/COLOR FLOW: MILD TO MODERATE MITRAL AND TRICUSPID REGURGITATION. COMMENTS: SEVERE GLOBAL HYPOKINESIS. LEFT VENTRICULAR EJECTION FRACTION 30-35%. MILD TO MODERATE MITRAL AND TRICUSPID REGURGITATION. LEFT ATRIAL ENLARGEMENT. LEFT VENTRICLE ENLARGEMENT. TECHNOLOGIST: Cee COUCH
[2021-04-01] MEDS: ASPIRIN EC 81 MG TAB PO SCH (09:35)
[2021-04-01] MEDS: SACUBITRIL/VALSARTAN 49/51 MG TAB PO SCH (09:35)
[2021-04-01] MEDS: FUROSEMIDE 40 MG/4 ML VIAL IV SCH (09:35)
[2021-04-01] MEDS: HEPARIN 5000 UNIT/ML 1 ML VIAL SQ SCH (09:35)
--- NOTE | 2021-04-01 09:58 | P.PN ---
Date of Service: 04/01/21 Vital Signs Temp Pulse Resp BP Pulse Ox 97.0 F 60 16 158/75 H 96 04/01/21 08:00 04/01/21 08:00 04/01/21 08:00 04/01/21 08:00 04/01/21 08:00 Medications Acetaminophen (Acetaminophen 500 Mg Tab) 500 mg PO Q4HP PRN PRN Reason: TEMP > 101' F Albuterol Sulfate (Albuterol 2.5 Mg/3 Ml Neb Thao) 2.5 mg NEB [id number] PRN PRN Reason: SHORTNESS OF BREATH Aspirin (Aspirin Ec 81 Mg Tab) 81 mg PO DAILY [facility] Last Admin: 04/01/21 09:35 Dose: 81 mg Documented by: Furosemide (Furosemide 40 Mg/4 Ml Vial) 40 mg IV BIDL [facility] Last Admin: 04/01/21 09:35 Dose: 40 mg Documented by: Heparin Sodium (Porcine) (Heparin 5000 Unit/Ml 1 Ml Vial) 5,000 unit SQ Q12HR [facility] Last Admin: 04/01/21 09:35 Dose: 5,000 unit Documented by: Magnesium Sulfate/Dextrose (Magnesium Sulfate 1gm/D5w Ivpb (Premix)) 1 gm in 100 mls @ 100 mls/hr IV 1X ONE Stop: 04/01/21 09:59 Last Admin: 04/01/21 09:35 Dose: 100 mls Documented by: Ipratropium Rosharon (Ipratropium Brom 0.5mg/2.5ml) 0.5 mg NEB [id number] PRN PRN Reason: SHORTNESS OF BREATH Metoprolol Succinate (Metoprolol Xl 25 Mg Tab) 25 mg PO [id number] [facility] Last Admin: 04/01/21 05:54 Dose: 25 mg Documented by: Ondansetron HCl (Ondansetron 4 Mg/2 Ml Vial) 4 mg IV Q6HP PRN PRN Reason: NAUSEA / VOMITING Sodium Chloride (Flush Normal Saline 10 Ml) 10 ml IV BID [facility] Last Admin: 04/01/21 09:00 Dose: 10 ml Documented by: Assessment/ Plan: Nephrology Feeling much better today. CPS improving without CP. +GUERRERO No acute events overnight Vitals, medications, blood work and imaging reviewed in the chart NAD. NCAT. MMM. Neck supple. CTA. RRR. Soft Abd. No C/C/E. No rash. AAO. Normal speech. HIRO likely CRS complicated by IV contrast exposure CKD III with proteinuria -No NSAIDs Hyponatremia -Continue furosemide Hypocalcemia -Start Vitamin D3 Hypomagnesemia -Replete with IV Mag prn HTN with CKD/ CHF -Continue Metoprolol Systolic CHF, A/C Moderate MR & TR BL Pleural Effusions -Continue furosemide -Continue Entresto -Continue Metoprolol Anemia in chronic illness Leukocytopenia -Monitor H&H Case reviewed with Dr. Crabtree SEVERE GLOBAL HYPOKINESIS. LEFT VENTRICULAR EJECTION FRACTION 30-35%. MILD TO MODERATE MITRAL AND TRICUSPID REGURGITATION. LEFT ATRIAL ENLARGEMENT. LEFT VENTRICLE ENLARGEMENT. EXAM DESCRIPTION: CT - Chest For Pe Angio - 03/30/2021 2:11 pm CLINICAL HISTORY: SOB COMPARISON: Thorax Wo Con dated 03/23/2021; Chest Single View dated 03/30/2021; Thorax Wo Con dated 06/28/2018 TECHNIQUE: Dynamically enhanced 3 mm thick images of the chest were obtained during administration of approximately 150mL Isovue 370 IV contrast. Coronal and oblique MIP reconstruction images were generated and reviewed. Exam utilizes a protocol to evaluate the pulmonary arterial tree. All CT scans are performed using dose optimization technique as appropriate and may include automated exposure control or mA/KV adjustment according to patient size. FINDINGS: No pulmonary emboli are identified. The aorta as imaged shows no acute or suspicious finding. Significant cardiomegaly is present without pericardial effusion. Moderate size bilateral pleural effusions are present worse on the right increased slightly from March 23 imaging. Motion accentuates the interstitial pattern. Pleural effusions cause bilateral lower lobe partial compressive atelectasis. Prominent perihilar soft tissues on the right cause narrowing of the right middle lobe bronchus. There is partial atelectasis. Soft tissue opacification is present in the right hilum contributing to the right middle lobe bronchial narrowing and parenchymal opacification. Parenchymal o pacification is not substantially different over the short interval. . No pneumothorax is present. Numerous mediastinal and hilar calcifications are present similar to prior imaging. No chest wall masses or abnormal axillary lymphadenopathy. IMPRESSION: No pulmonary emboli identified. Mildly large bilateral pleural effusions, right greater than left, increased from March 23 CT study. Pronounced cardiomegaly. There is an overall interstitial opacification pattern and significant fluid retention pattern in the subcutaneous tissues.
[2021-04-01 10:27] VITALS: O2SAT 99
[2021-04-01 12:14] VITALS: BP 140/70; TEMP 99.2
--- NOTE | 2021-04-02 11:00 | PN ---
Date of Progress Note: 04/01/2021 Mr. Cat has been admitted with congestive heart failure. Echocardiogram which was done showed mode rate global hypokinesis with ejection fraction about 40% to 45%. He has improved on diuresis. I wou ld continue his present regimen. His O2 saturation is adequate. He remained in sinus rhythm. I am comfortable with him going home on beta-blockade, Lasix, ARMANDO inhibitor. I will see him in the office in the next 2 weeks. CHIVO/FAITH Voice ID: [id number] Report ID: [id number]
== END 2021-04-01 15:16 | disposition home health service (06) | DRG 291 ==
LOC: ER 12:34 → ERHOLD 14:56 → 2ND 19:32
PROVIDERS: ADMIT Family Medicine; ATTEND Hospitalist
PROC: 5A09457 Assistance with Respiratory Ventilation, 24-96 Consecutive Hours, Continuous Positive Airway Pressure (ICD-10-PCS; principal; 2021-03-30)
DX: I13.0 Hypertensive heart and chronic kidney disease with heart failure and stage 1 through stage 4 chronic kidney disease, or unspecified chronic kidney disease (principal); J96.21 Acute and chronic respiratory failure with hypoxia; I50.23 Acute on chronic systolic (congestive) heart failure; E87.1 Hypo-osmolality and hyponatremia; N17.9 Acute kidney failure, unspecified; N18.30 Chronic kidney disease, stage 3 unspecified; E11.22 Type 2 diabetes mellitus with diabetic chronic kidney disease; I25.10 Atherosclerotic heart disease of native coronary artery without angina pectoris; E78.5 Hyperlipidemia, unspecified; J44.9 Chronic obstructive pulmonary disease, unspecified; D72.819 Decreased white blood cell count, unspecified; F03.90 Unspecified dementia, unspecified severity, without behavioral disturbance, psychotic disturbance, mood disturbance, and anxiety; E83.51 Hypocalcemia; D63.8 Anemia in other chronic diseases classified elsewhere; E83.42 Hypomagnesemia; G20 Parkinson's disease; Z90.49 Acquired absence of other specified parts of digestive tract; Z86.73 Personal history of transient ischemic attack (TIA), and cerebral infarction without residual deficits; Z95.810 Presence of automatic (implantable) cardiac defibrillator; Z66 Do not resuscitate; Z91.19 Patient's noncompliance with other medical treatment and regimen; Z20.822 Contact with and (suspected) exposure to COVID-19
CPT/HCPCS: 36415; 71045; 71275; 80048; 80076; 81003; 81015; 82550; 82553; 82805; 83735; 83880; 84484; 85025; 85610; 93005; 93306; 94660; 96374; 99291; 99292; J1644; J1940; J3475; Q9967; U0003

== ENCOUNTER 2021-04-07 01:56 | Inpatient (IN) | payer OTHER ==
--- OUTSIDE RECORDS SUMMARY | 2021-04-07 01:58 | XMS REPORT | Continuity of Care Document ---
:1940 Author Organization [facility] t Address [address] [place] [address] Care Team Providers Name Role Phone Eryn [...] [facility] 10[facility]04 [facility] 00:00: [address] No Known DA Active U [facility] 05-20 [facility] 00:00: [address] Medications This patient has no known medications. Procedures This patient has no known procedures. Encounters Start End Encounter Admission Attending Care Care Encounter Source Date/Time Date/Time Type Type Clinicians Facility Department ID 2020-06-05 2020-06-05 Transition Mary Kay Cerna [id number] 00:00:00 00:00:00 of Care Cody Stover [id number] Clarisa [id number] 2020-05-29 2020-06-04 [facility] [id number] 18:50:00 17:57:00 Encounter Arben Julien [id number] Ling [id number] [place] [id number] Results This patient has no known results.
[2021-04-07 02:29] LABS: Protime INR 1.1
[2021-04-07 02:32] LABS: Absolute Lymphocytes (CBC) 0.5 K/uL (0.7-4.9); Basophils % 0.9 % (0-1.3); Hematocrit 30.2 % (39.6-49.0); Lymphocytes % 13.3 % (15.3-44.8); MPV 7.1 fL (7.6-11.3); RBC Red Blood Cell Count 3.34 M/uL (4.33-5.43)
[2021-04-07 02:50] LABS: Albumin 3.4 g/dL (3.4-5.0); Bilirubin Direct 0.2 mg/dL (0-0.2); Bilirubin Total 0.5 mg/dL (0.2-1.0); Magnesium 1.5 mg/dL (1.8-2.4); Protein, Total 6.7 g/dL (6.4-8.2); Troponin (Emerg Dept Use Only) 0.04 ng/mL (0.0-0.045)
--- NOTE | 2021-04-07 03:36 | ER ---
Nurse's Notes [facility] Name: Jimbo Cat Age: 80 yrs Sex: Male : 1940 Arrival Date: 04/07/2021 Time: 02:01 Bed 27 Private MD: Josh Powell Diagnosis: COPD/ Chronic obstructive pulmonary disease with (acute) exacerbation;Dyspnea;Hypo-osmolality and hyponatremia Presentation: 04/07 02:01 Chief complaint: EMS states: Pt is coming in for COPD exacerbation. Has wheezes MARZENA. jb4 took an albuterol treatment at home, we gave him 2 of albuterol and one of atrovent upon arrival He also received 125 of solumedrol. He has an 18g to the [facility]. Coronavirus screen: Client denies travel out of the [place] in the last 14 days. Client presents with at least one sign or symptom that may indicate coronavirus-19. Standard/surgical mask placed on the client. Provider contacted for isolation considerations. Ebola Screen: No symptoms or risks identified at this time. Initial Sepsis Screen: Does the patient meet any 2 criteria? No. Patient's initial sepsis screen is negative. Does the patient have a suspected source of infection? No. Patient's initial sepsis screen is negative. Risk Assessment: Do you want to hurt yourself or someone else? Patient reports no desire to harm self or others. Onset of symptoms was April 07, 2021. Transition of care: patient was not received from another setting of care. 02:01 Method Of Arrival: EMS: [facility] jb4 02:01 Acuity: SYDNIE 3 jb4 Triage Assessment: 02:21 Pain: Denies pain. bb Historical: - Allergies: 02:03 No Known Allergies; jb4 - Home Meds: 02:03 Protonix 40 mg Oral TbEC 1 tab once daily [Active]; Plavix 75 mg Oral tab 1 tab once jb4 daily [Active]; metoprolol tartrate 25 mg Oral tab 1 tab 2 times per day [Active]; Primidone Oral [Active]; Lasix Oral [Active]; Eliquis 5 mg Oral tab 1 tab 2 times per day [Active]; carvedilol Oral [Active]; - PMHx: 02:03 Alcoholism; Marzena cataracts; CAD; CHF; Chronic hyponatremia; COPD; CVA; depressive jb4 disorder; Diabetes; HEART FAILURE; Hyperlipidemia; Hypertension; Parkinson's disease; possible dementia; - PSHx: 02:03 Benign tumo removed from L knee; Appendectomy; 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 - Social history:: Smoking status: Patient denies any tobacco usage or history of. Screenin:20 Fall Risk Secondary diagnosis (15 points) impaired mobility, IV access (20 points). bb Ambulatory Aid- None/Bed Rest/Nurse Assist (0 pts). Gait- Normal/Bed Rest/Wheelchair (0 pts) Mental Status- Overestimates/Forgets Limitations (15 pts.). Total Johnston Fall Scale indicates High Risk Score (45 or more points). Fall prevention measures have been instituted. Side Rails Up X 2 As available patient and family educated on Fall Prevention Program and Strategies. 02:21 Abuse screen: Denies threats or abuse. Nutritional screening: No deficits noted. bb Tuberculosis screening: No symptoms or risk factors identified. Assessment: 02:15 General: Appears in no apparent distress. comfortable, Behavior is calm, cooperative, jb4 appropriate for age. Pain: Denies pain. Neuro: Level of Consciousness is awake, alert, Oriented to person, place, time, situation. Cardiovascular: Patient's skin is warm and dry. Respiratory: Airway is compromised Respiratory effort is even, unlabored, Respiratory pattern is regular, symmetrical. GI: No signs and/or symptoms were reported involving the gastrointestinal system. : No signs and/or symptoms were reported regarding the genitourinary system. EENT: No signs and/or symptoms were reported regarding the EENT system. Derm: Skin is intact, Skin is pink, warm \T\ dry. Musculoskeletal: Circulation, motion, and sensation intact. Range of motion: intact in all extremities. 03:07 Reassessment: Patient appears in no apparent distress at this time. Patient and/or jb4 family updated on plan of care and expected duration. Pain level reassessed. Patient is alert, oriented x 3, equal unlabored respirations, skin warm/dry/pink. 03:59 Reassessment: Patient appears in no apparent distress at this time. Patient and/or jb4 family updated on plan of care and expected duration. Pain level reassessed. Patient is alert, oriented x 3, equal unlabored respirations, skin warm/dry/pink. Patient states feeling better. Patient states symptoms have improved. Vital Signs: 02:01 BP 149 / 90; Pulse 62; Resp 20; Temp 97.6(O); Pulse Ox 100% on Nebulizer Mask; Weight jb4 62.6 kg (R); Height 5 ft. 7 in. (170.18 cm) (R); Pain 0/10; 03:09 BP 137 / 73; Pulse 60; Resp 15; Pulse Ox 100% on R/A; jb4 03:30 BP 136 / 68; Pulse 60; Resp 15; Pulse Ox 100% on R/A; jb4 02:01 Body Mass Index 21.61 (62.60 kg, 170.18 cm) jb4 ED Course: 02:00 Initial lab(s) drawn, by me, sent to lab. Maintain EMS IV. Dressing intact. Good blood bb return noted. Site clean \T\ dry. Gauge \T\ site: 18 g R FA. 02:01 Patient arrived in ED. jb4 02:01 Josh Powell DO is Private Physician. es 02:02 Terry Fernández PA is PHCP. cp 02:02 Terry Sanderson MD is Attending Physician. cp 02:03 Triage completed. jb4 02:03 Arm band placed on right wrist. jb4 02:10 EKG done, by ED staff, reviewed by Terry Sanderson MD COVID swab sent to lab. bb 02:21 Patient has correct armband on for positive identification. Bed in low position. Call bb light in reach. Side rails up X2. clinical research monitor on. Pulse ox on. NIBP on. 02:24 XRAY Chest (1 view) In Process Unspecified. EDMS 03:06 Edwin Higgins, RN is Primary Nurse. jb4 03:30 No provider procedures requiring assistance completed. Patient admitted, IV remains in jb4 place. 03:35 Jarrett Tan DO is Hospitalizing Provider. cp Administered Medications: 03:45 Drug: Magnesium Sulfate 1 grams Route: IVPB; Infused Over: 1 hrs; Site: right forearm; 4 04:45 Follow up: Response: No adverse reaction; IV Status: Completed infusion; IV Intake: jb4 100ml Intake: 04:45 IV: 100ml; Total: 100ml. jb4 Outcome: 03:36 Decision to Hospitalize by Provider. cp 04:01 Admitted to ER Hold. Please see [facility] for further documentation. jb4 04:01 Condition: stable 04:01 Discharge instructions given to patient, Instructed on the need for admit, Demonstrated understanding of instructions. 16:55 Patient left the ED. aa5 Signatures: Dispatcher [employer] Beata Casillas Brenda, RN RN bb Sonia Nair RN RN aa5 Terry Fernández PA PA cp Bryson, James, SABINE RN jb4
--- NOTE | 2021-04-07 03:36 | EDPHYS ---
Physician Documentation [facility] Name: Jimbo Cat Age: 80 yrs Sex: Male : 1940 Arrival Date: 04/07/2021 Time: 02:01 Bed 27 Private MD: Josh Powell ED Physician Terry Sanderson HPI: 04/07 02:05 This 80 yrs old Male presents to ER via EMS with complaints of Shortness of cp Breath. 02:05 The patient or guardian reports difficulty breathing. Onset: The symptoms/episode cp began/occurred gradually, and became worse last night. Associated signs and symptoms: Pertinent negatives: chest pain, diarrhea, fever, vomiting. Severity of symptoms: in the emergency department the symptoms are unchanged despite EMS interventions. Historical: - Allergies: 02:03 No Known Allergies; jb4 - Home Meds: 02:03 Protonix 40 mg Oral TbEC 1 tab once daily [Active]; Plavix 75 mg Oral tab 1 tab once jb4 daily [Active]; metoprolol tartrate 25 mg Oral tab 1 tab 2 times per day [Active]; Primidone Oral [Active]; Lasix Oral [Active]; Eliquis 5 mg Oral tab 1 tab 2 times per day [Active]; carvedilol Oral [Active]; - PMHx: 02:03 Alcoholism; Shantanu cataracts; CAD; CHF; Chronic hyponatremia; COPD; CVA; depressive jb4 disorder; Diabetes; HEART FAILURE; Hyperlipidemia; Hypertension; Parkinson's disease; possible dementia; - PSHx: 02:03 Benign tumo removed from L knee; Appendectomy; 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 - Social history:: Smoking status: Patient denies any tobacco usage or history of. ROS: 02:10 Constitutional: Negative for body aches, chills, fever, poor PO intake. cp 02:10 Eyes: Negative for injury, pain, redness, and discharge. cp 02:10 ENT: Negative for ear pain, sore throat, difficulty swallowing, difficulty handling secretions. 02:10 Cardiovascular: Negative for chest pain, edema, palpitations. 02:10 Respiratory: Positive for shortness of breath, at rest. wheezing. 02:10 Abdomen/GI: Negative for abdominal pain, nausea, vomiting, and diarrhea. 02:10 Neuro: Negative for altered mental status, headache, syncope, weakness. 02:10 All other systems are negative. Exam: 02:15 ECG was reviewed by the Attending Physician. cp 02:15 Constitutional: The patient appears in no acute distress, alert, awake, cp non-diaphoretic, non-toxic, well developed, well nourished. 02:15 Head/Face: Normocephalic, atraumatic. cp 02:15 Eyes: Periorbital structures: appear normal, Conjunctiva: normal, no exudate, no injection, Sclera: no appreciated abnormality, Lids and lashes: appear normal, bilaterally. 02:15 ENT: External ear(s): are unremarkable, Nose: is normal, Mouth: Lips: moist, Oral mucosa: moist, Posterior pharynx: Airway: no evidence of obstruction, patent, Tonsils: are normal in appearance, swelling, is not appreciated, erythema, is not appreciated, exudate, is not appreciated. 02:15 Neck: ROM/movement: is normal, is supple, without pain, no range of motions limitations, no meningismus. 02:15 Chest/axilla: Inspection: normal, Palpation: is normal, no crepitus, no tenderness. 02:15 Cardiovascular: Rate: normal, Rhythm: regular, Edema: is not appreciated, JVD: is not appreciated. 02:15 Respiratory: the patient does not display signs of respiratory distress, Respirations: labored breathing, that is mild, Breath sounds: bronchial sounds, that are mild, are heard diffusely, decreased breath sounds, that are mild, throughout. 02:15 Abdomen/GI: Inspection: abdomen appears normal, Palpation: abdomen is soft and non-tender, in all quadrants. 02:15 Back: pain, is absent, ROM is normal. 02:15 Skin: cellulitis, is not appreciated, no rash present. 02:15 Neuro: Orientation: to person, place \T\ time. Mentation: is normal, Motor: moves all fours, strength is normal, Sensation: is normal. Vital Signs: 02:01 BP 149 / 90; Pulse 62; Resp 20; Temp 97.6(O); Pulse Ox 100% on Nebulizer Mask; Weight jb4 62.6 kg (R); Height 5 ft. 7 in. (170.18 cm) (R); Pain 0/10; 03:09 BP 137 / 73; Pulse 60; Resp 15; Pulse Ox 100% on R/A; jb4 03:30 BP 136 / 68; Pulse 60; Resp 15; Pulse Ox 100% on R/A; jb4 02:01 Body Mass Index 21.61 (62.60 kg, 170.18 cm) jb4 MDM: 02:03 Patient medically screened. [facility] 02:30 Differential diagnosis: bronchitis, flu, URI, CHF exacerbation, COPD exacerbation, cp pneumonia. 03:25 Data reviewed: vital signs, nurses notes, lab test result(s), EKG, radiologic studies, cp plain films. Physician consultation: Bud Acevedo MD was called at 03:26, was contacted at 03:26, regarding consult, patient's condition, and will see patient later today, no fluids for now, will see patient later this morning. 04/07 02:04 Order name: Basic Metabolic Panel 04/07 02:04 Order name: CBC with Diff; Complete Time: 02:48 cp 04/07 02:48 Interpretation: Normal except: WBC 3.70; RBC 3.34; HGB 10.8; HCT 30.2; MPV 7.1; LYM% cp 13.3; EOSINOPHIL % 9.4; LYMA 0.5. 04/07 02:04 Order name: LFT's; Complete Time: 03:17 cp 04/07 03:18 Interpretation: Normal except: A/G 1.0. cp 04/07 02:04 Order name: Magnesium; Complete Time: 03:17 cp 04/07 03:18 Interpretation: Abnormal: MG 1.5. cp 04/07 02:04 Order name: NT PRO-BNP; Complete Time: 03:17 cp 04/07 02:04 Order name: PT-INR; Complete Time: 02:48 cp 04/07 02:04 Order name: Troponin (emerg Dept Use Only); Complete Time: 03:17 cp 04/07 03:18 Interpretation: TROPED 0.04; Reviewed. 04/07 02:04 Order name: Basic Metabolic Panel; Complete Time: 03:17 EDMS 04/07 03:17 Interpretation: Normal except: NA 114; CL 79; GLUC 112; BUN 28; CRE 1.34; GFR 52; CA cp 8.1. 04/07 03:07 Order name: Urine Osmolality la1 04/07 03:07 Order name: Osmolality, Serum la1 04/07 03:07 Order name: Urine Sodium Random la1 04/07 03:17 Order name: ABG 04/07 03:17 Order name: ABG Arterial Blood Gas EDAR 04/07 02:04 Order name: XRAY Chest (1 view) 04/07 02:04 Order name: EKG; Complete Time: 02:05 04/07 03:43 Order name: SARS-COV-2 RT PCR EDMS 04/07 06:50 Order name: Basic Metabolic Panel EDMS 04/07 09:14 Order name: Magnesium EDAR 04/07 09:44 Order name: Basic Metabolic Panel EDAR 04/07 09:44 Order name: Thyroid Stimulating Hormone EDMS 04/07 10:25 Order name: Urinalysis EDMS 04/07 10:27 Order name: UR SODIUM EDMS 04/07 10:29 Order name: Osmolality, Urine EDMS 04/07 10:31 Order name: UR CREAT EDMS 04/07 10:43 Order name: Urine Microscopic Only EDMS 04/07 12:08 Order name: Basic Metabolic Panel EDMS 04/07 14:08 Order name: Basic Metabolic Panel EDMS 04/07 15:15 Order name: Potassium EDAR 04/07 02:04 Order name: Cardiac monitoring; Complete Time: 02:19 04/07 02:04 Order name: EKG - Nurse/Tech; Complete Time: 02:19 cp 04/07 02:04 Order name: IV Saline Lock; Complete Time: 02:19 cp 04/07 02:04 Order name: Labs collected and sent; Complete Time: 02:18 cp 04/07 02:04 Order name: O2 Per Protocol; Complete Time: 02:18 cp 04/07 02:04 Order name: O2 Sat Monitoring; Complete Time: 02:18 cp EC:15 Rate is 60 beats/min. Rhythm is regular, Paced. QRS interval is prolonged at 160 msec. cp QT interval is normal. T waves are Inverted in leads I, aVL, aVR, V2. Interpreted by me. Reviewed by me. Administered Medications: 03:45 Drug: Magnesium Sulfate 1 grams Route: IVPB; Infused Over: 1 hrs; Site: right forearm; jb4 04:45 Follow up: Response: No adverse reaction; IV Status: Completed infusion; IV Intake: jb4 100ml Disposition: 04/08 07:12 Co-signature as Attending Physician, Terry Sanderson MD I agree with the assessment and [facility] plan of care. Disposition Summary: 04/07/21 03:36 Hospitalization Ordered Hospitalization Status: Inpatient Admission cp Provider: Jarrett Tan cp Condition: Fair cp Problem: new cp Symptoms: have improved cp Bed/Room Type: Standard cp Location: Telemetry/MedSurg (Inpatient)(04/07/21 13:48) dw Room Assignment: 209(04/07/21 13:48) dw Diagnosis - COPD/ Chronic obstructive pulmonary disease with (acute) exacerbation cp - Dyspnea cp - Hypo-osmolality and hyponatremia cp Forms: - Medication Reconciliation Form cp - SBAR form cp Signatures: Dispatcher [employer] EDAR Zehra Mckinney RN Rocio Abraham RN Terry Epperson MD MD cha Page, Corey, PA PA cp Bryson, James, RN RN jb4 Corrections: (The following items were deleted from the chart) 04/07 02:36 02:04 CORONAVIRUS+MR.[email or web address].CECELIAZ ordered. [facility] EDAR 02:39 00:15 ECG was reviewed by the Attending Physician. cp 02:39 00:15 Rate is 60 beats/min. Rhythm is regular, Paced. QRS interval is prolonged at 160 cp msec. QT interval is normal. T waves are Inverted in leads I, aVL, aVR, V2. Interpreted by me. Reviewed by me. cp 03:45 03:36 Telemetry/MedSurg (Inpatient) cp mw 03:45 03:36 cp mw 13:48 03:45 [facility] ER HOLD mw dw 13:48 03:45 ERHOLD- mw dw
[2021-04-07 03:48] LABS: Arterial Blood Carboxyhemoglob 1.7 % (0-1.5); Blood O2 Saturation 98.6 % (92-98.5)
--- NOTE | 2021-04-07 03:48 | P.HP ---
Certification for Inpatient Patient admitted to: Inpatient With expected LOS: >2 Midnights Patient will require the following post-hospital care: None Practitioner: I am a practitioner with admitting privileges, knowledge of patient current condition, hospital course, and medical plan of care. Services: Services provided to patient in accordance with Admission requirements found in Title 42 Section 412.3 of the Code of Federal Regulations Patient History Date of Service: 04/07/21 Primary Care Provider: Dr. Powell Reason for admission: Hyponatremia History of Present Illness: 80-year-old male with history of chronic systolic congestive heart failure, COPD, hypertension chronic hyponatremia, CKD 3, Parkinson's presents emergency department for shortness of breath. Patient recently discharged for CHF exacerbation, and now presents emergency department with expiratory wheezing, cough. Patient evaluated in the emergency department, labs significant for white blood cell count 3.7 hemoglobin 10.3 sodium 114 chloride 79 creatinine 1.34 GFR 52 BUN 28 glucose 112 BNP 4083. Patient does have chronic hyponatremia but baseline sodium level it is around 125-130. Nephrology was contacted for additional assistance in management of hyponatremia, recommended no IV fluids or diuretics at this time and will evaluate in the morning. Patient is stable, no neurological deficits noted this time. Will admit for further evaluation and management. Allergies No Known Allergies Allergy (Verified 03/23/21 04:35) Home Medications: Furosemide [Lasix*] 40 mg PO DAILY 30 Days #30 tab 03/23/21 Primidone 250 mg PO QID 03/23/21 Sacubitril/Valsartan [Entresto 49 mg-51 mg Tablet] 1 tab PO BID #60 tab 03/23/21 predniSONE [Prednisone*] 20 mg PO DAILY 03/30/21 Cholecalciferol (Vitamin D3) [Vitamin D3] 10,000 unit PO DAILY #30 capsule 04/01/21 Metoprolol Succinate [Toprol Xl*] 25 mg PO [id number] #30 tab 04/01/21 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 -: Pacemaker/defibrillator Psychosocial/ Personal History: 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 , is retired [employer] - Family History Father -: Heart disease Mother -: Heart disease, Hypertension, Diabetes, Cancer - Social History Smoking Status: Former smoker Alcohol use: No CD- Drugs: No Caffeine use: No Place of Residence: Home Review of Systems 10-point ROS is otherwise unremarkable General: Weakness, Malaise Respiratory: Cough, Shortness of Breath, SOB with Excertion, Wheezing Physical Examination - Physical Exam General: Alert, In no apparent distress, Oriented x3 HEENT: Atraumatic, PERRLA, Mucous membr. moist/pink Neck: Supple, 2+ carotid pulse no bruit, No LAD Respiratory: Normal air movement, Expiratory wheezes Cardiovascular: Regular rate/rhythm, Normal S1 S2 Gastrointestinal: Normal bowel sounds, No tenderness Musculoskeletal: No tenderness Integumentary: No rashes Neurological: Normal speech, Normal strength at 5/5 x4 extr, Normal tone, Normal affect - Studies Laboratory Data (last 24 hrs) 04/07/21 02:00: PT 12.7 H, INR 1.10 04/07/21 02:00: WBC 3.70 L D, Hgb 10.8 L, Hct 30.2 L, Plt Count 175 04/07/21 02:00: Sodium 114 L*, Potassium 4.0, BUN 28 H, Creatinine 1.34 H, Glucose 112 H, Magnesium 1.5 L, Total Bilirubin 0.5, AST 15, ALT 20, Alkaline Phosphatase 80 Assessment and Plan - Plan Assessment Severe acute on chronic hyponatremia Dyspnea secondary to a COPD with exacerbation Chronic systolic congestive heart failure S/P pacemaker/defibrillator placement History of CAD/CVA Hypertension Hyperlipidemia Parkinson's Plan Severe acute on chronic hyponatremia: Case was discussed with nephrology who recommends holding IV fluids/diuretics this time, will evaluate in the morning. Patient with chronic hypernatremia, has previously had similar presentation and responded well to normal saline, patient does not appear to be significantly overloaded at this time. Urine/serum osmolality, urine sodium levels pending. DVT prophylaxis heparin 5000 units subcutaneous twice daily. Appreciate further input from nephrology. Dyspnea secondary to a COPD with exacerbation: Continue with p.r.n. nebs/oral prednisone, daily room air saturations. Patient recently admitted and did not qualify for home oxygen. Chronic systolic congestive heart failure S/P pacemaker/defibrillator placement: Appears to be stable at this time, patient does not appear overloaded. Will hold off on diuretics at this time, appreciate further input from nephrology. History of CAD/CVA: Obtain and continue home meds Hypertension: Obtain and continue home medications, may need to adjust if there are any diuretics Hyperlipidemia: Continue home meds Parkinson's: Continue home meds Discharge Plan: Home Plan to discharge in: Greater than 2 days - Advance Directives Does patient have a Living Will: No Does patient have a Durable POA for Healthcare: No - Code Status/Comfort Care Code Status Assessed: Yes (DNR) Critical Care: No Time Spent Managing Pts Care (In Minutes): 55
[2021-04-07] MEDS ORDERED: MAGNESIUM SULFATE 1 gm IVPB 1 GM/100 ML BAG IV ONE (03:52)
[2021-04-07] MEDS ORDERED: ALBUTEROL 2.5 MG/3 ML NEB SOL NEB PRN ×2 (04:06→14:00)
[2021-04-07] MEDS ORDERED: ACETAMINOPHEN 500 MG TAB PO PRN (04:06)
[2021-04-07] MEDS ORDERED: ONDANSETRON 4 MG/2 ML VIAL IV PRN (04:06)
--- NOTE | 2021-04-07 06:21 | P.PN ---
Subjective Date of Service: 04/07/21 Primary Care Provider: Dr. Powell Chief Complaint: Hyponatremia Subjective: Other (He is feeling better. He is breathing better. He is on oxygen.) Physical Examination - Vital Signs Temperature: 97.6 F Blood Pressure: 139/76 Pulse: 60 Respirations: 14 Pulse Ox (%): 100 - Studies Laboratory Data (last 24 hrs) 04/07/21 02:00: PT 12.7 H, INR 1.10 04/07/21 02:00: WBC 3.70 L D, Hgb 10.8 L, Hct 30.2 L, Plt Count 175 04/07/21 02:00: Sodium 114 L*, Potassium 4.0, BUN 28 H, Creatinine 1.34 H, Glucose 112 H, Magnesium 1.5 L, Total Bilirubin 0.5, AST 15, ALT 20, Alkaline Phosphatase 80 Assessment & Plan Discharge Plan: Home Plan to discharge in: 24 Hours Physician Review Additional Text: Physical exam: General: Alert, In no apparent distress, Oriented x3 HEENT: Atraumatic, PERRLA, Mucous membr. moist/pink Neck: Supple, 2+ carotid pulse no bruit, No LAD Respiratory: Normal air movement, Clear. Currently on 2 l/min Cardiovascular: Regular rate/rhythm, Normal S1 S2 Gastrointestinal: Normal bowel sounds, No tenderness Musculoskeletal: No tenderness Integumentary: No rashes. No edema Neurological: Normal speech, Normal strength at 5/5 x4 extr, Normal tone, Normal affect Impression: Severe acute on chronic hyponatremia Dyspnea secondary to a COPD with exacerbation Chronic systolic congestive heart failure S/P pacemaker/defibrillator placement History of CAD/CVA Hypertension Hyperlipidemia Parkinson's Plan Severe acute on chronic hyponatremia: NA still 114. He appears Hypovolemic. Continue to hold diuretics. Will discuss with Nephrology about starting some IV fluids and monitor the NA closely while on fluids. Will order PT. DVT prophylaxis-Heparin. Dyspnea secondary to a COPD with exacerbation: Continue with p.r.n. nebs/oral prednisone, daily room air saturations. Continue with COPD medication. Chronic systolic congestive heart failure S/P pacemaker/defibrillator placement: Appears to be stable at this time, patient does not appear overloaded. Will hold off on diuretics at this time, appreciate further input from nephrology. History of CAD/CVA: Obtain and continue home meds Hypertension: Obtain and continue with medication. Parameters in place. Hyperlipidemia: Continue home meds Parkinson's: Continue home meds CODE STATUS: DNR DVT prophylaxis: Heparin Advance care [id number] minutes: Home at discharge Time Spent Managing Pts Care (In Minutes): 55
[2021-04-07 06:47] LABS: Potassium 3.6 mmol/L (3.5-5.1)
--- NOTE | 2021-04-07 07:28 | EKG ---
Test Date: 2021-04-07 Test Time: 02:09:34 Public Interviewer: TERRANCE MEASUREMENT RESULTS: Intervals: Rate: 60 DE: QRSD: 160 QT: 496 QTc: 496 [place]: P: -82 DE: QRS: -68 T: 110 INTERPRETIVE STATEMENTS: Ventricular-paced rhythm Abnormal ECG Compared to ECG 03/30/2021 13:06:57 Left-axis deviation no longer present Myocardial infarct finding no longer present Electronically Signed On 04-07-21 07:27:39 CDT by Max Pro
[2021-04-07] MEDS ORDERED: FUROSEMIDE 40 MG/4 ML VIAL IV ONE (08:07)
[2021-04-07] MEDS ORDERED: ARFORMOTEROL TARTRATE 15 MCG/2 ML VIAL.NEB ONE ×2 (08:45→20:05)
[2021-04-07] MEDS ORDERED: IPRATROPIUM BROM 0.5MG/2.5ML ONE (08:45)
[2021-04-07] MEDS: ARFORMOTEROL TARTRATE 15 MCG/2 ML VIAL.NEB NEB SCH ×2 (08:48→19:55)
[2021-04-07] MEDS: PRIMIDONE 250 MG TAB PO SCH ×4 (09:00→20:51)
[2021-04-07] MEDS ORDERED: POTASSIUM CL SA 10 MEQ TAB PO ONE ×2 (09:00→09:16)
[2021-04-07] MEDS ORDERED: HEPARIN 5000 UNIT/ML 1 ML VIAL ONE ×2 (09:16→20:53)
[2021-04-07] MEDS ORDERED: predniSONE 20 MG TAB ONE (09:16)
[2021-04-07] MEDS ORDERED: FUROSEMIDE 100 MG/10 ML VIAL IV ONE (09:17)
--- NOTE | 2021-04-07 09:18 | RAD REPORT ---
EXAM DESCRIPTION: RAD - Chest Single View - 04/07/2021 2:24 am CLINICAL HISTORY: Cough;SOB Chest pain. COMPARISON: Chest Single View dated 03/31/2021; Chest Single View dated 03/30/2021; Chest Single View dated 03/22/2021; Chest Single View dated 03/17/2021; Thorax Wo Con dated 03/23/2021 FINDINGS: Portable technique limits examination quality. Moderate bilateral pulmonary opacities suggest pulmonary edema. The heart is moderately enlarged with a multi lead pacer/defibrillator device. No displaced fractures. IMPRESSION: Moderate CHF versus volume overload pattern.
[2021-04-07] MEDS: HEPARIN 5000 UNIT/ML 1 ML VIAL SQ SCH ×2 (09:19→20:49)
[2021-04-07] MEDS: predniSONE 20 MG TAB PO SCH (09:19)
[2021-04-07 09:35] LABS: Thyroid Stimulating Hormone 3.26 uIU/mL (0.360-3.740)
[2021-04-07] MEDS ORDERED: FUROSEMIDE 40 MG/4 ML VIAL ONE ×2 (09:43→18:53)
[2021-04-07 10:23] LABS: Urine Appearance CLEAR (Clear); Urine Bilirubin NEGATIVE (Negative); Urine Blood 1+ (Negative); Urine Color YELLOW (Yellow); Urine Glucose NEGATIVE (Negative); Urine Protein 2+ (Negative); Urine Specific Gravity <=1.005 (1.005-1.030); Urine Urobilinogen 0.2 mg/dL (0.2-1.0); Urine pH 6.5 (5.0-7.0)
[2021-04-07 10:25] LABS: Urine Microscopic Reflex ORDER UMIC
[2021-04-07 10:42] LABS: Urine Bacteria NONE SEEN /HPF (NONE SEEN); Urine RBC <5 /HPF (NONE SEEN)
[2021-04-07] MEDS: VITAMIN D 5,000 UNIT CAP PO SCH (11:21)
[2021-04-07] MEDS: SACUBITRIL/VALSARTAN 49/51 MG TAB PO SCH ×3 (11:26→21:00)
[2021-04-07 12:07] LABS: Potassium 3.9 mmol/L (3.5-5.1)
--- NOTE | 2021-04-07 12:23 | CON ---
The patient seen in emergency room hold in room 27. History Of Present Illness: He is alert, awake, able to actually walk around without any difficulty. He is mildly short of breath, perhaps a little bit more than his usual. Got a dose of Lasix jenna maldonado. States that he has had some urine output and is feeling a little bit better. His lung x-ray did show some congestion and the report is consistent with congestive heart failure. We were not able to open up the x-ray itself, but was able to review the report. The patient does not develop much swel ling in his lower extremities, but has had volume overload in the past too without having much swelli ng in his lower extremities, but getting fluid in his lungs. His blood pressure is stable right now with readings between 120 to 140. Last blood pressure 130. Currently, the blood pressure is in the 117 systolic range. He is able to talk to me in full sentences. Does get some short shortness of br eath. He has history of COPD. He is requiring oxygen currently to keep his O2 sats in the 90s and h as been already given treatments with nebulizers and also with steroid. He has gotten prednisone 20 mg. Past Medical History: As stated above is consistent for COPD, CHF, chronic kidney disease. He has b een in the hospital multiple times. I have seen him also in the past month or so and he recognizes m e from that. He is alert currently, mentating at close to his baseline. Past medical history also i s consistent for hyperlipidemia, CVA, depression, bilateral cataracts, chronic systolic CHF, Parkinso n disease, history of noncompliance with medications in the past, but seems to be doing quite well re cently. Chronic hyponatremia which seems to be slightly worse likely in the setting of volume overlo ad and with the congestion. Family History: Father has had heart disease. Mother has had heart disease, hypertension and diabet es. Social History: Former smoker. Does not smoke now. No alcohol. No IV drugs. Physical Examination: General: The patient is alert, awake and relatively comfortable. He states his breathing has somewh at improved since he got the Lasix earlier. He has had some urine output. Vital signs: The patient's blood pressure last was 117/76, before that 139/76; O2 sats are in mid 90 s, but the patient is on 2 to 3 L of nasal cannula. Last O2 sat 100%. He is on 3 L nasal cannula. Lungs: Clear anteriorly with some wheezing that improves with cough, but also has some basal crackle s bilaterally. Abdomen: Soft. Extremities: Do not reveal any edema. Heart: Sounds are regular. His sodium has been stable. Laboratory Data: Reviewed. His labs show WBC of 3.7, hemoglobin 10.8, hematocrit 30.2, platelet cou nt of 175. Chemistry shows sodium 114, it was 114 earlier in the morning, 114 on the repeat lab work ; chloride 80; bicarb is 26; BUN 29; creatinine 1.47. Glucose level was at 188. Calcium level 8.6, magnesium 1.9. TSH was 3.260. Hematology reviewed. Hemoglobin and hematocrit 10.8 and 30.2, platel et count 175. Medications: Reviewed. The patient is on vitamin D replacement. He is getting Zofran p.r.n. He zamora s been given prednisone. He does not have any IV fluids going. He is on primidone currently and he has gotten a dose of Lasix in the morning at 60 mg IV x1. Assessment/plan: Jimbo Cat is an elderly gentleman, 80 years old. He is alert, awake, presents t [facility] with shortness of breath. Seems like, he has a combination of chronic obstructive pulmona ry disease and congestive heart failure. Sodium is low in the setting of congestive heart failure. His TSH is okay. Blood pressure is okay currently. Got a dose of Lasix earlier in the morning ____ feeding and has had some urine output. We will continue on Lasix 40 mg IV b.i.d. Since he zamora s gotten a dose now, we will repeat the dose in the evening. The patient will have blood work done a t 11 a.m. and also in the afternoon to monitor sodium. If there is any drop in sodium, may consider other interventions. At this point, the patient does seem to be slightly on the volume overload side and I do not think he needs to get any fluids to correct the sodium, but hopefully with the Lasix an d his correction of congestive heart failure, the sodium will come up. He does not have hypothyroidi sm and his sodium has run low in the past in the 120 and 130 range in the past. The patient is howev er alert. He is mentating fine. He has been able to walk fine. No difficulty with diet. He has be en assessed by physical therapy as well. I have advised him on fall precautions. We will continue t o do salt restriction and fluid restriction. /FAITH Voice ID: [id number] Report ID: [id number]
[2021-04-07 13:59] LABS: Potassium 3.8 mmol/L (3.5-5.1)
[2021-04-07] MEDS ORDERED: NA CHLORIDE 3% 500 ML IV SCH ×2 (14:00→20:00)
[2021-04-07] MEDS ORDERED: NA CHLORIDE 3% 500 ML ONE (14:22)
[2021-04-07] MEDS: FUROSEMIDE 40 MG/4 ML VIAL IV SCH (18:36)
[2021-04-07 19:10] LABS: Potassium 4.1 mmol/L (3.5-5.1)
[2021-04-07] MEDS ORDERED: METOPROLOL TAR 25 MG TAB ONE (20:53)
[2021-04-07] MEDS ORDERED: SACUBITRIL/VALSARTAN 49/51 MG TAB ONE (21:01)
[2021-04-07 22:48] LABS: Potassium 4.2 mmol/L (3.5-5.1)
[2021-04-08 05:24] LABS: Absolute Lymphocytes (CBC) 0.4 K/uL (0.7-4.9); Basophils % 0.6 % (0-1.3); Lymphocytes % 13.4 % (15.3-44.8); MPV 7.3 fL (7.6-11.3); RBC Red Blood Cell Count 3.35 M/uL (4.33-5.43)
[2021-04-08 05:35] LABS: Magnesium 1.8 mg/dL (1.8-2.4)
[2021-04-08] MEDS: METOPROLOL XL 25 MG TAB PO SCH (06:00)
[2021-04-08 06:12] LABS: Potassium 3.7 mmol/L (3.5-5.1)
--- NOTE | 2021-04-08 06:13 | P.PN ---
Subjective Date of Service: 04/08/21 Primary Care Provider: Dr. Powell Chief Complaint: Hyponatremia Subjective: Improving, Doing well Physical Examination - Vital Signs Temperature: 97.9 F Blood Pressure: 111/63 Pulse: 60 Respirations: 11 Pulse Ox (%): 100 Assessment & Plan Discharge Plan: Home Plan to discharge in: 48 Hours Physician Review Additional Text: Physical exam: General: Alert, In no apparent distress, Oriented x3 HEENT: Atraumatic, PERRLA, Mucous membr. moist/pink Neck: Supple, 2+ carotid pulse no bruit, No LAD Respiratory: Normal air movement, Clear. Currently on 2 l/min Cardiovascular: Regular rate/rhythm, Normal S1 S2 Gastrointestinal: Normal bowel sounds, No tenderness Musculoskeletal: No tenderness Integumentary: No rashes. No edema Neurological: Normal speech, Normal strength at 5/5 x4 extr, Normal tone, Normal affect Impression: Severe acute on chronic hyponatremia Dyspnea secondary to COPD with exacerbation Chronic systolic congestive heart failure S/P pacemaker/defibrillator placement History of CAD/CVA Hypertension Hyperlipidemia Parkinson's Plan Severe acute on chronic hyponatremia: NA up to 119. Patient was given 3% solution. Now IV Fluids held. Will continue to monitor NA closely. Case discussed with Nephrology yesterday. Await further recommendations from Nephrology. Dyspnea secondary to COPD with exacerbation: Continue with p.r.n. nebs/oral prednisone, daily room air saturations. Continue with COPD medication. Chronic systolic congestive heart failure S/P pacemaker/defibrillator placement: Appears to be stable at this time, patient does not appear overloaded. Continue with Nephrology recommendations. History of CAD/CVA: Obtain and continue home meds Hypertension: Obtain and continue with medication. Parameters in place. Hyperlipidemia: Continue home meds Parkinson's: Continue home meds CODE STATUS: DNR DVT prophylaxis: Heparin Advance care [id number] minutes: Home at discharge Time Spent Managing Pts Care (In Minutes): 55
[2021-04-08] MEDS ORDERED: POTASSIUM CL SA 10 MEQ TAB PO ONE ×2 (08:00→08:39)
[2021-04-08] MEDS: predniSONE 20 MG TAB PO SCH (08:23)
[2021-04-08] MEDS: FUROSEMIDE 40 MG/4 ML VIAL IV SCH ×2 (08:24→18:12)
[2021-04-08] MEDS: HEPARIN 5000 UNIT/ML 1 ML VIAL SQ SCH ×2 (08:26→20:02)
[2021-04-08] MEDS ORDERED: FUROSEMIDE 40 MG/4 ML VIAL ONE ×2 (08:39→16:14)
[2021-04-08] MEDS ORDERED: predniSONE 20 MG TAB ONE (08:39)
[2021-04-08] MEDS ORDERED: HEPARIN 5000 UNIT/ML 1 ML VIAL ONE ×2 (08:39→19:39)
[2021-04-08] MEDS: SACUBITRIL/VALSARTAN 49/51 MG TAB PO SCH ×2 (09:00→20:01)
[2021-04-08] MEDS: ARFORMOTEROL TARTRATE 15 MCG/2 ML VIAL.NEB NEB SCH ×2 (09:20→20:00)
[2021-04-08] MEDS: IPRATROPIUM BROM 0.5MG/2.5ML NEB PRN ×2 (09:20→15:20)
[2021-04-08] MEDS ORDERED: IPRATROPIUM BROM 0.5MG/2.5ML ONE ×2 (09:34→15:34)
[2021-04-08] MEDS ORDERED: ARFORMOTEROL TARTRATE 15 MCG/2 ML VIAL.NEB ONE (09:34)
--- NOTE | 2021-04-08 09:40 | P.CNS ---
Date of Consult: 04/08/21 Reason for Consult: Hyponatremia Requesting Physician: Jarrett Tan Primary Care Provider: Dr. Powell Chief Complaint: Hyponatremia History of Present Illness: 80-year-old male with history of chronic systolic congestive heart failure, COPD, hypertension chronic hyponatremia, CKD 3, Parkinson's presents emergency department for shortness of breath. Patient recently discharged for CHF exacerbation, and now presents emergency department with expiratory wheezing, cough. Patient evaluated in the emergency department, labs significant for white blood cell count 3.7 hemoglobin 10.3 sodium 114 chloride 79 creatinine 1.34 GFR 52 BUN 28 glucose 112 BNP 4083. Patient does have chronic hyponatremia but baseline sodium level it is around 125-130. Nephrology was contacted for additional assistance in management of hyponatremia, recommended no IV fluids or diuretics at this time and will evaluate in the morning. Patient is stable, no neurological deficits noted this time. 02:05 This 80 yrs old Male presents to ER via EMS with complaints of Shortness of cp Breath. 02:05 The patient or guardian reports difficulty breathing. Onset: The symptoms/episode cp began/occurred gradually, and became worse last night. Associated signs and symptoms: Pertinent negatives: chest pain, diarrhea, fever, vomiting. Severity of symptoms: in the emergency department the symptoms are unchanged despite EMS interventions. Allergies No Known Allergies Allergy (Verified 03/23/21 04:35) Home medications list reviewed: Yes Home Medications: Furosemide [Lasix*] 40 mg PO DAILY 30 Days #30 tab 03/23/21 Primidone 250 mg PO QID 03/23/21 Sacubitril/Valsartan [Entresto 49 mg-51 mg Tablet] 1 tab PO BID #60 tab 03/23/21 predniSONE [Prednisone*] 20 mg PO DAILY 03/30/21 Cholecalciferol (Vitamin D3) [Vitamin D3] 10,000 unit PO DAILY #30 capsule 04/01/21 Metoprolol Succinate [Toprol Xl*] 25 mg PO [id number] #30 tab 04/01/21 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 , 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 - Family History Father Medical History: Heart disease Mother Medical History: Heart disease, Hypertension, Diabetes, Cancer - Social History Smoking Status: Unknown if ever smoked Alcohol use: No CD- Drugs: No Caffeine use: No Place of Residence: Home Review of Systems 10-point ROS is otherwise unremarkable General: Weakness, Malaise Physical Examination Temp Pulse Resp BP Pulse Ox 97.9 F 62 12 112/62 100 04/08/21 06:32 04/08/21 07:00 04/08/21 07:00 04/08/21 08:24 04/08/21 07:00 General: In no apparent distress, Cooperative HEENT: Atraumatic Neck: Supple Respiratory: Clear to auscultation bilaterally Cardiovascular: No edema, Regular rate/rhythm Gastrointestinal: Soft and benign, Non-distended Musculoskeletal: No clubbing, No contractures Integumentary: No rashes, No cyanosis Neurological: Normal speech Blood work reviewed in the chart. Imagings Data: EXAM DESCRIPTION: RAD - Chest Single View - 04/07/2021 2:24 am CLINICAL HISTORY: Cough;SOB Chest pain. COMPARISON: Chest Single View dated 03/31/2021; Chest Single View dated 03/30/2021; Chest Single View dated 03/22/2021; Chest Single View dated 03/17/2021; Thorax Wo Con dated 03/23/2021 FINDINGS: Portable technique limits examination quality. Moderate bilateral pulmonary opacities suggest pulmonary edema. The heart is moderately enlarged with a multi lead pacer/defibrillator device. No displaced fractures. IMPRESSION: Moderate CHF versus volume overload pattern. Conclusions/Impression: CKD III with proteinuria -No NSAIDs Hyponatremia -Hypertonic saline prn Hypocalcemia -Continue Vitamin D3 Systolic CHF, chronic -Continue furosemide -Continue Entresto -Continue Metoprolol Anemia in chronic illness/ Pancytopenia -Monitor H&H Thank you kindly for the consultation. Case discussed with Dr. Tan.
[2021-04-08 09:54] LABS: White Blood Cell Scan OK (OK)
[2021-04-08 09:55] LABS: Blood Morphology Comment NOT SEEN (NOT SEEN); Platelet Estimate ADEQ
[2021-04-08] MEDS: VITAMIN D 5,000 UNIT CAP PO SCH (10:22)
[2021-04-08] MEDS: PRIMIDONE 250 MG TAB PO SCH ×4 (10:22→20:02)
[2021-04-08] MEDS ORDERED: ALBUTEROL 2.5 MG/3 ML NEB SOL ONE (15:34)
[2021-04-08 18:45] LABS: Potassium 4.4 mmol/L (3.5-5.1)
[2021-04-09 05:25] LABS: Absolute Lymphocytes (CBC) 0.3 K/uL (0.7-4.9); Basophils % 0.6 % (0-1.3); Hematocrit 29.8 % (39.6-49.0); Lymphocytes % 6.4 % (15.3-44.8); MPV 7.4 fL (7.6-11.3); RBC Red Blood Cell Count 3.27 M/uL (4.33-5.43)
[2021-04-09 05:39] LABS: Albumin 3.2 g/dL (3.4-5.0); Bilirubin Total 0.4 mg/dL (0.2-1.0); Phosphorus 3.1 mg/dL (2.5-4.9); Potassium 4.1 mmol/L (3.5-5.1); Uric Acid 8.6 mg/dL (3.5-7.2)
[2021-04-09] MEDS: METOPROLOL XL 25 MG TAB PO SCH (06:00)
--- NOTE | 2021-04-09 06:12 | P.PN ---
Subjective Date of Service: 04/09/21 Primary Care Provider: Dr. Powell Chief Complaint: Hyponatremia Subjective: Improving, Doing well Physical Examination - Vital Signs Temperature: 97.7 F Blood Pressure: 101/46 Pulse: 60 Respirations: 12 Pulse Ox (%): 96 Assessment & Plan Discharge Plan: Home Plan to discharge in: 24 Hours Physician Review Additional Text: Physical exam: General: Alert, In no apparent distress, Oriented x3 HEENT: Atraumatic, PERRLA, Mucous membr. moist/pink Neck: Supple, 2+ carotid pulse no bruit, No LAD Respiratory: Normal air movement, Clear. Currently on 2 l/min Cardiovascular: Regular rate/rhythm, Normal S1 S2 Gastrointestinal: Normal bowel sounds, No tenderness Musculoskeletal: No tenderness Integumentary: No rashes. No edema Neurological: Normal speech, Normal strength at 5/5 x4 extr, Normal tone, Normal affect Impression: Severe acute on chronic hyponatremia Dyspnea secondary to COPD with exacerbation Chronic systolic congestive heart failure S/P pacemaker/defibrillator placement History of CAD/CVA Hypertension Hyperlipidemia Parkinson's Plan Severe acute on chronic hyponatremia: NA up to 124. Patient doing well. No complaints noted. Will discuss with Nephrology about possible dc home today or tomorrow. Dyspnea secondary to COPD with exacerbation: Continue with p.r.n. nebs/oral prednisone, daily room air saturations. Continue with COPD medication. Chronic systolic congestive heart failure S/P pacemaker/defibrillator placement: Appears to be stable at this time, patient does not appear overloaded. Continue with Nephrology recommendations. History of CAD/CVA: Obtain and continue home meds Hypertension: Obtain and continue with medication. Parameters in place. Hyperlipidemia: Continue home meds Parkinson's: Continue home meds CODE STATUS: DNR DVT prophylaxis: Heparin Advance care [id number] minutes: Home at discharge. He does not need HH/PT at home. Time Spent Managing Pts Care (In Minutes): 55
[2021-04-09] MEDS: SACUBITRIL/VALSARTAN 49/51 MG TAB PO SCH ×2 (07:07→22:55)
[2021-04-09] MEDS: ARFORMOTEROL TARTRATE 15 MCG/2 ML VIAL.NEB NEB SCH ×2 (08:00→20:00)
[2021-04-09] MEDS: FUROSEMIDE 40 MG/4 ML VIAL IV SCH ×2 (08:34→17:00)
[2021-04-09] MEDS: VITAMIN D 5,000 UNIT CAP PO SCH (08:35)
[2021-04-09] MEDS: predniSONE 20 MG TAB PO SCH (08:35)
[2021-04-09] MEDS: PRIMIDONE 250 MG TAB PO SCH ×4 (08:35→23:22)
[2021-04-09] MEDS: HEPARIN 5000 UNIT/ML 1 ML VIAL SQ SCH ×2 (08:35→22:55)
[2021-04-09] MEDS ORDERED: HEPARIN 5000 UNIT/ML 1 ML VIAL ONE (08:55)
[2021-04-09] MEDS ORDERED: predniSONE 20 MG TAB ONE (08:56)
--- NOTE | 2021-04-09 11:34 | P.PN ---
Date of Service: 04/09/21 Vital Signs Temp Pulse Resp BP Pulse Ox 97.5 F 60 14 110/57 L 100 04/09/21 07:00 04/09/21 10:00 04/09/21 10:00 04/09/21 10:00 04/09/21 10:00 Medications Acetaminophen (Acetaminophen 500 Mg Tab) 500 mg PO Q4HP PRN PRN Reason: TEMP > 100' F Albuterol Sulfate (Albuterol 2.5 Mg/3 Ml Neb Thao) 2.5 mg NEB [id number] PRN PRN Reason: SHORTNESS OF BREATH Arformoterol Tartrate (Arformoterol Tartrate 15 Mcg/2 Ml Vial.Neb) 15 mcg NEB BIDRESP [facility] Last Admin: 04/09/21 08:00 Dose: Not Given Documented by: Cholecalciferol (Vitamin D 5,000 Unit Cap) 10,000 unit PO DAILY [facility] Last Admin: 04/09/21 08:35 Dose: 10,000 unit Documented by: Furosemide (Furosemide 40 Mg/4 Ml Vial) 40 mg IV BIDL [facility] Last Admin: 04/09/21 08:34 Dose: Not Given Documented by: Heparin Sodium (Porcine) (Heparin 5000 Unit/Ml 1 Ml Vial) 5,000 unit SQ Q12HR [facility] Last Admin: 04/09/21 08:35 Dose: 5,000 unit Documented by: Ipratropium [place] (Ipratropium Brom 0.5mg/2.5ml) 0.5 mg NEB [id number] PRN PRN Reason: WHEEZING Last Admin: 04/08/21 15:20 Dose: 0.5 mg Documented by: Metoprolol Succinate (Metoprolol Xl 25 Mg Tab) 25 mg PO [id number] [facility] Last Admin: 04/09/21 06:00 Dose: Not Given Documented by: Ondansetron HCl (Ondansetron 4 Mg/2 Ml Vial) 4 mg IV Q6HP PRN PRN Reason: NAUSEA / VOMITING Prednisone (Prednisone 20 Mg Tab) 20 mg PO DAILY [facility] Last Admin: 04/09/21 08:35 Dose: 20 mg Documented by: Primidone (Primidone 250 Mg Tab) 250 mg PO QID [facility] Last Admin: 04/09/21 08:35 Dose: 250 mg Documented by: Sodium Chloride (Flush Normal Saline 10 Ml) 10 ml IV BID [facility] Last Admin: 04/09/21 08:36 Dose: 10 ml Documented by: Assessment/ Plan: Nephrology Feeling better today. CPS stable without CP or SOB. No acute events overnight. Vitals, medications, blood work and imaging reviewed in the chart. General: In no apparent distress, Cooperative HEENT: Atraumatic Neck: Supple Respiratory: Clear to auscultation bilaterally Cardiovascular: No edema, Regular rate/rhythm Gastrointestinal: Soft and benign, Non-distended Musculoskeletal: No clubbing, No contractures Integumentary: No rashes, No cyanosis Neurological: Normal speech Blood work reviewed in the chart. Imagings Data: EXAM DESCRIPTION: RAD - Chest Single View - 04/07/2021 2:24 am CLINICAL HISTORY: Cough;SOB Chest pain. COMPARISON: Chest Single View dated 03/31/2021; Chest Single View dated 03/30/2021; Chest Single View dated 03/22/2021; Chest Single View dated 03/17/2021; Thorax Wo Con dated 03/23/2021 FINDINGS: Portable technique limits examination quality. Moderate bilateral pulmonary opacities suggest pulmonary edema. The heart is moderately enlarged with a multi lead pacer/defibrillator device. No displaced fractures. IMPRESSION: Moderate CHF versus volume overload pattern. Conclusions/Impression: CKD III with proteinuria -No NSAIDs Hyponatremia -Hypertonic saline prn -Salt tabs X2 today -Encourage nutrition Hypocalcemia -Continue Vitamin D3 Systolic CHF, chronic -Continue furosemide -Continue Entresto -Continue Metoprolol Anemia in chronic illness/ Pancytopenia -Monitor H&H PT today in preparation for discharge. Case discussed with Dr. Tan.
[2021-04-09] MEDS ORDERED: SODIUM CHLORIDE 1 GM TAB PO ONE ×3 (12:00→21:15)
[2021-04-09 13:55] LABS: Urine Appearance CLEAR (Clear); Urine Bilirubin NEGATIVE (Negative); Urine Blood NEGATIVE (Negative); Urine Color YELLOW (Yellow); Urine Glucose NEGATIVE (Negative); Urine Protein 1+ (Negative); Urine Specific Gravity <=1.005 (1.005-1.030); Urine Urobilinogen 0.2 mg/dL (0.2-1.0); Urine pH 6.5 (5.0-7.0)
[2021-04-09 14:07] LABS: Urine Bacteria NONE SEEN /HPF (NONE SEEN); Urine RBC <5 /HPF (NONE SEEN)
[2021-04-09] MEDS ORDERED: FUROSEMIDE 40 MG/4 ML VIAL ONE (17:03)
[2021-04-09 18:50] LABS: Potassium 4.6 mmol/L (3.5-5.1)
[2021-04-09] MEDS ORDERED: ARFORMOTEROL TARTRATE 15 MCG/2 ML VIAL.NEB ONE (20:20)
[2021-04-10 04:56] VITALS: BMI 21.1
[2021-04-10] MEDS: METOPROLOL XL 25 MG TAB PO SCH (06:17)
[2021-04-10 06:46] LABS: Albumin 3.3 g/dL (3.4-5.0); Bilirubin Total 0.4 mg/dL (0.2-1.0); Magnesium 1.9 mg/dL (1.8-2.4); Potassium 4.3 mmol/L (3.5-5.1)
[2021-04-10 06:52] LABS: Absolute Lymphocytes (CBC) 0.4 K/uL (0.7-4.9); Basophils % 1.4 % (0-1.3); Hematocrit 28.4 % (39.6-49.0); Lymphocytes % 20.2 % (15.3-44.8); RBC Red Blood Cell Count 3.13 M/uL (4.33-5.43)
[2021-04-10] MEDS: IPRATROPIUM BROM 0.5MG/2.5ML NEB PRN (08:11)
[2021-04-10] MEDS: ARFORMOTEROL TARTRATE 15 MCG/2 ML VIAL.NEB NEB SCH (08:11)
[2021-04-10 08:38] VITALS: O2SAT 98
--- NOTE | 2021-04-10 09:40 | P.DS ---
Admission Date: 04/07/21 Discharge Date: 04/10/21 Primary Care Provider: Dr. Powell Disposition: ROUTINE DISCHARGE Discharge Condition: GOOD Reason for Admission: Hyponatremia Consultations: Nephrology-Dr. Powell Procedures: Initial CXR: COMPARISON: Chest Single View dated 03/31/2021; Chest Single View dated 03/30/2021; Chest Single View dated 03/22/2021; Chest Single View dated 03/17/2021; Thorax Wo Con dated 03/23/2021 FINDINGS: Portable technique limits examination quality. Moderate bilateral pulmonary opacities suggest pulmonary edema. The heart is moderately enlarged with a multi lead pacer/defibrillator device. No displaced fractures. IMPRESSION: Moderate CHF versus volume overload pattern. Medical problem list: Severe acute on chronic hyponatremia Dyspnea secondary to COPD with exacerbation Chronic systolic congestive heart failure S/P pacemaker/defibrillator placement History of CAD/CVA Hypertension Parkinson's Brief History of Present Illness: 80-year-old male with history of chronic systolic congestive heart failure, COPD, hypertension chronic hyponatremia, CKD 3, Parkinson's presents emergency department for shortness of breath. Patient recently discharged for CHF exacerbation, and now presents emergency department with expiratory wheezing, cough. Patient evaluated in the emergency department, labs significant for white blood cell count 3.7 hemoglobin 10.3 sodium 114 chloride 79 creatinine 1.34 GFR 52 BUN 28 glucose 112 BNP 4083. Patient does have chronic hyponatremia but baseline sodium level it is around 125-130. Nephrology was contacted for additional assistance in management of hyponatremia. patient admitted for further evaluation and treatment. Hospital Course: Patient presented with shortness of breath secondary to COPD exacerbation. This was complicated with acute on chronic hyponatremia. During the course of his stay patient received treatment for COPD, CHF and his hyponatremia. Nephrology was consulted to help assist with his hyponatremia. Patient received 3% s olution with improvement. His hyponatremia continue to improve. At discharge sodium was up to 129. For his hyponatremia patient is at baseline. At discharge patient will continue with his current medications. Recommend to continue Lasix and fluid restriction, but encouraged to eat appropriately. Recommend to follow-up with nephrology in 1 week with repeat lab BMP at that time. Education on hyponatremia would be provided. For his COPD, patient without significant shortness of breath at discharge. Patient on room air. At discharge patient will continue with prednisone 20 mg daily for 7 days. Patient will continue with his COPD medication including albuterol 2 puffs 3 times a day as needed for shortness of breath and Brovana 1 unit dose twice daily. Recommend follow-up with pulmonology as an outpatient to further monitor and adjust his medication. Patient with chronic systolic CHF and hypertension. Patient received IV diuresis during the course of his stay. At discharge patient overall stable. Patient on room air. At discharge patient will continue with the 1500 cc/day fluid restriction and low-salt diet. Recommend to monitor his weight daily. Encourage oral intake as far as with his nutrition. At discharge the patient will continue with metoprolol XL 25 mg daily, Entresto 49/51 mg 1 pill twice daily, and Lasix 40 mg 1 pill twice daily. Recommend follow-up with PCP and cardiology in 1 to 2 weeks to [place] hospitalization. Patient with Parkinson's. At discharge patient will continue with his medication of primidone 2 and 50 mg 1 pill 4 times a day. Vital Signs/Physical Exam: Temp Pulse Resp BP Pulse Ox 97 F 60 18 124/72 96 04/10/21 04:00 04/10/21 06:17 04/10/21 04:00 04/10/21 06:17 04/10/21 04:00 General: Alert, In no apparent distress, Oriented x3, Cooperative HEENT: Atraumatic Neck: Supple Respiratory: Clear to auscultation bilaterally, Normal air movement Cardiovascular: Normal pulses, Regular rate/rhythm Gastrointestinal: Normal bowel sounds, No tenderness, No masses, No rebound, No guarding Musculoskeletal: No erythema, No tenderness, No warmth Integumentary: No tenderness/swelling Neurological: Normal speech, Normal strength at 5/5 x4 extr, Normal tone, Normal affect Laboratory Data at Discharge: WBC 2.20 K/uL (4.3-10.9) L D 04/10/21 06:11 Hgb 10.1 g/dL (13.6-17.9) L 04/10/21 06:11 Hct 28.4 % (39.6-49.0) L 04/10/21 06:11 Plt Count 148 K/uL (152-406) L 04/10/21 06:11 PT 12.7 SECONDS (9.5-12.5) H 04/07/21 02:00 INR 1.10 04/07/21 02:00 Sodium 129 mmol/L (136-145) L 04/10/21 06:11 Potassium 4.3 mmol/L (3.5-5.1) 04/10/21 06:11 BUN 38 mg/dL (7-18) H 04/10/21 06:11 Creatinine 1.45 mg/dL (0.55-1.3) H 04/10/21 06:11 Glucose 91 mg/dL (74-106) 04/10/21 06:11 Uric Acid 8.6 mg/dL (3.5-7.2) H 04/09/21 04:50 Phosphorus 3.1 mg/dL (2.5-4.9) 04/09/21 04:50 Magnesium 1.9 mg/dL (1.8-2.4) 04/10/21 06:11 Total Bilirubin 0.4 mg/dL (0.2-1.0) 04/10/21 06:11 AST 10 U/L (15-37) L 04/10/21 06:11 ALT 16 U/L (12-78) 04/10/21 06:11 Alkaline Phosphatase 65 U/L (45-117) 04/10/21 06:11 Home Medications: Primidone 250 mg PO QID 03/23/21 Sacubitril/Valsartan [Entresto 49 mg-51 mg Tablet] 1 tab PO BID #60 tab 03/23/21 Cholecalciferol (Vitamin D3) [Vitamin D3] 10,000 unit PO DAILY #30 capsule 04/01/21 Metoprolol Succinate [Toprol Xl*] 25 mg PO [id number] #30 tab 04/01/21 Albuterol Inhaler [Ventolin Inhaler*] 2 puff IH Q6H PRN #1 hfa.aer.ad 04/10/21 Arformoterol Tartrate [Brovana] 15 mcg NEB BIDRESP #60 vial.neb 04/10/21 Furosemide [Lasix*] 40 mg PO BID 30 Days #60 tab 04/10/21 predniSONE [Prednisone*] 20 mg PO DAILY #7 tab 04/10/21 New Medications: Arformoterol Tartrate [Brovana] 15 mcg NEB BIDRESP #60 vial.neb Furosemide [Lasix*] 40 mg PO BID 30 Days #60 tab predniSONE [Prednisone*] 20 mg PO DAILY #7 tab Albuterol Inhaler [Ventolin Inhaler*] 2 puff IH Q6H PRN #1 hfa.aer.ad PRN Reason: Shortness Of Breath Physician Discharge Instructions: Patient presented with shortness of breath secondary to COPD exacerbation. This was complicated with acute on chronic hyponatremia. During the course of his stay patient received treatment for COPD, CHF and his hyponatremia. Nephrology was consulted to help assist with his hyponatremia. Patient received 3% solution with improvement. His hyponatremia continue to improve. At discharge sodium was up to 129. For his hyponatremia patient is at baseline. At discharge patient will continue with his current medications. Recommend to continue Lasix and fluid restriction, but encouraged to eat appropriately. Recommend to follow-up with nephrology in 1 week with repeat lab BMP at that time. Education on hyponatremia would be provided. For his COPD, patient without significant shortness of breath at discharge. Patient on room air. At discharge patient will continue with prednisone 20 mg daily for 7 days. Patient will continue with his COPD medication including albuterol 2 puffs 3 times a day as needed for shortness of breath and Brovana 1 unit dose twice daily. Recommend follow-up with pulmonology as an outpatient to further monitor and adjust his medication. Patient with chronic systolic CHF and hypertension. Patient received IV diuresis during the course of his stay. At discharge patient overall stable. Patient on room air. At discharge patient will continue with the 1500 cc/day fluid restriction and low-salt diet. Recommend to monitor his weight daily. Encourage oral intake as far as with his nutrition. At discharge the patient will continue with metoprolol XL 25 mg daily, Entresto 49/51 mg 1 pill twice daily, and Lasix 40 mg 1 pill twice daily. Recommend follow-up with PCP and cardiology in 1 to 2 weeks to [place] hospitalization. Patient with Parkinson's. At discharge patient will continue with his medication of primidone 2 and 50 mg 1 pill 4 times a day. Diet: AHA Activity: Ad brianna Followup: Josh Powell DO [Primary Care Provider] - Time spent managing pt's care (in minutes): 55
[2021-04-10] MEDS: FUROSEMIDE 40 MG/4 ML VIAL IV SCH ×2 (10:21→16:37)
[2021-04-10] MEDS: PRIMIDONE 250 MG TAB PO SCH ×3 (10:21→16:37)
[2021-04-10] MEDS: HEPARIN 5000 UNIT/ML 1 ML VIAL SQ SCH (10:22)
[2021-04-10] MEDS: predniSONE 20 MG TAB PO SCH (10:22)
[2021-04-10] MEDS: SACUBITRIL/VALSARTAN 49/51 MG TAB PO SCH (10:22)
[2021-04-10] MEDS: VITAMIN D 5,000 UNIT CAP PO SCH (10:22)
[2021-04-10] MEDS ORDERED: SODIUM CHLORIDE 1 GM TAB PO ONE (15:50)
[2021-04-10 17:21] VITALS: BP 155/74; TEMP 97.7
--- NOTE | 2021-04-10 17:54 | P.PN ---
Date of Service: 04/10/21 Vital Signs Temp Pulse Resp BP Pulse Ox 97.7 F 66 20 155/74 H 99 04/10/21 16:00 04/10/21 16:00 04/10/21 16:00 04/10/21 16:00 04/10/21 16:00 Medications Acetaminophen (Acetaminophen 500 Mg Tab) 500 mg PO Q4HP PRN PRN Reason: TEMP > 100' F Albuterol Sulfate (Albuterol 2.5 Mg/3 Ml Neb Thao) 2.5 mg NEB [id number] PRN PRN Reason: SHORTNESS OF BREATH Arformoterol Tartrate (Arformoterol Tartrate 15 Mcg/2 Ml Vial.Neb) 15 mcg NEB BIDRESP [facility] Last Admin: 04/10/21 08:11 Dose: 15 mcg Documented by: Cholecalciferol (Vitamin D 5,000 Unit Cap) 10,000 unit PO DAILY [facility] Last Admin: 04/10/21 10:22 Dose: 10,000 unit Documented by: Furosemide (Furosemide 40 Mg/4 Ml Vial) 40 mg IV BIDL [facility] Last Admin: 04/10/21 16:37 Dose: Not Given Documented by: Heparin Sodium (Porcine) (Heparin 5000 Unit/Ml 1 Ml Vial) 5,000 unit SQ Q12HR [facility] Last Admin: 04/10/21 10:22 Dose: 5,000 unit Documented by: Ipratropium [place] (Ipratropium Brom 0.5mg/2.5ml) 0.5 mg NEB [id number] PRN PRN Reason: WHEEZING Last Admin: 04/10/21 08:11 Dose: 0.5 mg Documented by: Metoprolol Succinate (Metoprolol Xl 25 Mg Tab) 25 mg PO [id number] [facility] Last Admin: 04/10/21 06:17 Dose: 25 mg Documented by: Ondansetron HCl (Ondansetron 4 Mg/2 Ml Vial) 4 mg IV Q6HP PRN PRN Reason: NAUSEA / VOMITING Prednisone (Prednisone 20 Mg Tab) 20 mg PO DAILY [facility] Last Admin: 04/10/21 10:22 Dose: 20 mg Documented by: Primidone (Primidone 250 Mg Tab) 250 mg PO QID [facility] Last Admin: 04/10/21 16:37 Dose: 250 mg Documented by: Sodium Chloride (Flush Normal Saline 10 Ml) 10 ml IV BID [facility] Last Admin: 04/10/21 10:22 Dose: 10 ml Documented by: Assessment/ Plan: Nephrology Feeling better today. CPS stable without CP or SOB. No acute events overnight. Vitals, medications, blood work and imaging reviewed in the chart. General: In no apparent distress, Cooperative HEENT: Atraumatic Neck: Supple Respiratory: Clear to auscultation bilaterally Cardiovascular: No edema, Regular rate/rhythm Gastrointestinal: Soft and benign, Non-distended Musculoskeletal: No clubbing, No contractures Integumentary: No rashes, No cyanosis Neurological: Normal speech Blood work reviewed in the chart. Imagings Data: EXAM DESCRIPTION: RAD - Chest Single View - 04/07/2021 2:24 am CLINICAL HISTORY: Cough;SOB Chest pain. COMPARISON: Chest Single View dated 03/31/2021; Chest Single View dated 03/30/2021; Chest Single View dated 03/22/2021; Chest Single View dated 03/17/2021; Thorax Wo Con dated 03/23/2021 FINDINGS: Portable technique limits examination quality. Moderate bilateral pulmonary opacities suggest pulmonary edema. The heart is moderately enlarged with a multi lead pacer/defibrillator device. No displaced fractures. IMPRESSION: Moderate CHF versus volume overload pattern. Conclusions/Impression: CKD III with proteinuria -No NSAIDs Hyponatremia -Hypertonic saline prn -Salt tab today -Encourage nutrition Hypocalcemia -Continue Vitamin D3 Systolic CHF, chronic -Continue Furosemide -Continue Entresto -Continue Metoprolol Anemia in chronic illness/ Pancytopenia -Monitor H&H Continue PT Case discussed with Dr. Tan.
== END 2021-04-10 17:57 | disposition home health service (06) | DRG 191 ==
LOC: ER 01:56 → ERHOLD 03:35 → 2ND 04-09 20:21
PROVIDERS: ADMIT Family Medicine; ATTEND Family Medicine
DX: J44.1 Chronic obstructive pulmonary disease with (acute) exacerbation (principal); E87.1 Hypo-osmolality and hyponatremia; I50.22 Chronic systolic (congestive) heart failure; I13.0 Hypertensive heart and chronic kidney disease with heart failure and stage 1 through stage 4 chronic kidney disease, or unspecified chronic kidney disease; D61.818 Other pancytopenia; N18.30 Chronic kidney disease, stage 3 unspecified; E11.22 Type 2 diabetes mellitus with diabetic chronic kidney disease; E83.51 Hypocalcemia; E78.5 Hyperlipidemia, unspecified; I25.10 Atherosclerotic heart disease of native coronary artery without angina pectoris; G20 Parkinson's disease; Z66 Do not resuscitate; Z79.02 Long term (current) use of antithrombotics/antiplatelets; Z79.899 Other long term (current) drug therapy; Z86.73 Personal history of transient ischemic attack (TIA), and cerebral infarction without residual deficits; Z95.810 Presence of automatic (implantable) cardiac defibrillator; Z79.01 Long term (current) use of anticoagulants; Z90.49 Acquired absence of other specified parts of digestive tract; Z79.52 Long term (current) use of systemic steroids; Z87.891 Personal history of nicotine dependence; Z20.822 Contact with and (suspected) exposure to COVID-19
CPT/HCPCS: 36415; 71045; 80048; 80053; 80076; 81001; 81003; 81015; 82570; 82805; 83735; 83880; 83930; 83935; 84100; 84132; 84300; 84443; 84484; 84550; 85025; 85610; 93005; 94640; 96365; 97116; 97161; 97530; 99285; J1644; J1940; J3475; J7131; J7512; J7605; U0003

== ENCOUNTER 2021-04-29 05:15 | Observation (INO) | payer OTHER ==
--- OUTSIDE RECORDS SUMMARY | 2021-04-29 05:18 | XMS REPORT | Continuity of Care Document ---
:1940 Author Organization [facility] t Address [address] [place] [address] Care Team Providers Name Role Phone Eryn [...] DA Active U 2018- [facility] 10-04 [facility] 00:00: [address] No Known DA Active U [facility] 05-20 [facility] 00:00: [address] Medications This patient has no known medications. Procedures This patient has no known procedures. Encounters Start End Encounter Admission Attending Care Care Encounter Source Date/Time Date/Time Type Type Clinicians Facility Department ID 2020-06-05 2020-06-05 Transition Mary Kay Cerna [id number] 00:00:00 00:00:00 of Care Cody Stover [id number] [place] [id number] 2020-05-29 2020-06-04 [id number] 18:50:00 17:57:00 Encounter Arben Julien [id number] [place] [id number] [place] [id number] Results This patient has no known results.
--- NOTE | 2021-04-29 05:33 | EDPHYS ---
Physician Documentation [facility] Name: Jimbo Cat Age: 80 yrs Sex: Male : 1940 Arrival Date: 04/29/2021 Time: 05:16 Bed 26 Private MD: NIVIA Physician Terry Sanderson HPI: 04/29 05:26 This 80 yrs old Male presents to ER via Unassigned with complaints of copd lubna exacerbation. 05:26 The patient has shortness of breath at rest, with light activity. Onset: The lubna symptoms/episode began/occurred 1 day(s) ago. Duration: The symptoms are continuous, and are steadily getting worse. The patient's shortness of breath has no apparent modifying factors. The patient or guardian reports cough, that is intermittent, difficulty breathing, flu symptoms, myalgias. Modifying factors: The symptoms are alleviated by changing position, the symptoms are aggravated by hot environment, lying flat. Associated signs and symptoms: The patient has no apparent associated signs or symptoms. Severity of symptoms: At their worst the symptoms were mild in the emergency department the symptoms are unchanged. Associated signs and symptoms: The patient has no apparent associated signs or symptoms. Historical: - Allergies: 05:33 No Known Allergies; bb - PMHx: 05:33 Alcoholism; Shantanu cataracts; CAD; CHF; Chronic hyponatremia; COPD; CVA; depressive bb disorder; Diabetes; HEART FAILURE; Hyperlipidemia; Hypertension; Parkinson's disease; possible dementia; - Immunization history:: Adult Immunizations up to date, Client reports having NOT received the Covid vaccine. - Social history:: Smoking status: Patient denies any tobacco usage or history of. Patient/guardian denies using alcohol. - Family history:: not pertinent. ROS: 05:26 Constitutional: Negative for fever, chills, and weight loss, Eyes: Negative for injury, lubna pain, redness, and discharge, ENT: Negative for injury, pain, and discharge, Neck: Negative for injury, pain, and swelling, Cardiovascular: Negative for chest pain, palpitations, and edema, Abdomen/GI: Negative for abdominal pain, nausea, vomiting, diarrhea, and constipation, Back: Negative for injury and pain, : Negative for injury, bleeding, discharge, and swelling, MS/Extremity: Negative for injury and deformity, Skin: Negative for injury, rash, and discoloration, Neuro: Negative for headache, weakness, numbness, tingling, and seizure, Psych: Negative for depression, anxiety, suicide ideation, homicidal ideation, and hallucinations, Allergy/Immunology: Negative for hives, rash, and allergies, Endocrine: Negative for neck swelling, polydipsia, polyuria, polyphagia, and marked weight changes, Hematologic/Lymphatic: Negative for swollen nodes, abnormal bleeding, and unusual bruising. 05:26 Respiratory: Positive for cough, with no reported sputum, shortness of breath, at rest. wheezing, inspiratory, expiratory. Exam: 05:26 Constitutional: This is a well developed, well nourished patient who is awake, alert, lubna and in no acute distress. Head/Face: Normocephalic, atraumatic. Eyes: Pupils equal round and reactive to light, extra-ocular motions intact. Lids and lashes normal. Conjunctiva and sclera are non-icteric and not injected. Cornea within normal limits. Periorbital areas with no swelling, redness, or edema. ENT: Nares patent. No nasal discharge, no septal abnormalities noted. Tympanic membranes are normal and external auditory canals are clear. Oropharynx with no redness, swelling, or masses, exudates, or evidence of obstruction, uvula midline. Mucous membranes moist. Neck: Trachea midline, no thyromegaly or masses palpated, and no cervical lymphadenopathy. Supple, full range of motion without nuchal rigidity, or vertebral point tenderness. No Meningismus. Chest/axilla: Normal chest wall appearance and motion. Nontender with no deformity. No lesions are appreciated. Cardiovascular: Regular rate and rhythm with a normal S1 and S2. No gallops, murmurs, or rubs. Normal PMI, no JVD. No pulse deficits. Abdomen/GI: Soft, non-tender, with normal bowel sounds. No distension or tympany. No guarding or rebound. No evidence of tenderness throughout. Back: No spinal tenderness. No costovertebral tenderness. Full range of motion. Male : Normal genitalia with no discharge or lesions. Skin: Warm, dry with normal turgor. Normal color with no rashes, no lesions, and no evidence of cellulitis. MS/ Extremity: Pulses equal, no cyanosis. Neurovascular intact. Full, normal range of motion. Neuro: Awake and alert, GCS 15, oriented to person, place, time, and situation. Cranial nerves II-XII grossly intact. Motor strength 5/5 in all extremities. Sensory grossly intact. Cerebellar exam normal. Normal gait. Psych: Awake, alert, with orientation to person, place and time. Behavior, mood, and affect are within normal limits. 05:26 Respiratory: mild respiratory distress is noted, moderate respiratory distress is noted, Respirations: labored breathing, that is mild, Breath sounds: decreased breath sounds, that are mild, rhonchi, that are mild, stridor, is not appreciated, Respiratory rate: 18 06:00 ECG was reviewed by the Attending Physician. [facility] Vital Signs: 05:30 BP 145 / 92; Pulse 60; Resp 28 S; Pulse Ox 100% on Nebulizer Mask; Weight 63.5 kg (R); bb Height 5 ft. 7 in. (170.18 cm) (R); Pain 0/10; 05:30 Body Mass Index 21.93 (63.50 kg, 170.18 cm) bb MDM: 05:17 Patient medically screened. [facility] 05:29 Differential diagnosis: Anxiety Reaction asthma, Bronchitis CHF exacerbation, Chronic lubna Obstructive Pulmonary Disease bronchitis, flu, URI, pneumonia, Pneumothorax. Antibiotic administration: Not indicated, Rocephin and Zithromax given. The patient's Wells Deep Vein Thrombosis Score was calculated as follows: Heart Rate >100 BPM (1.5 Pts) Total Score: 0-2 Pts- Low Risk. The patient's pulmonary embolism risk score was calculated as follows: Total Score: 0-2 points. This patient was found to be at low risk for a pulmonary embolism by using the Well's assessment criteria. Immunization status: Pneumococcal vaccine: Influenza vaccine: Data reviewed: vital signs, nurses notes, lab test result(s), EKG, radiologic studies, CT scan, plain films. 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 Test interpretation: by ED physician or midlevel provider: ECG, plain radiologic studies. Counseling: I had a detailed discussion with the patient and/or guardian regarding: the historical points, exam findings, and any diagnostic results supporting the discharge/admit diagnosis, lab results, radiology results, the need for further work-up and treatment in the hospital. 04/29 05:26 Order name: Basic Metabolic Panel [facility] 04/29 05:26 Order name: CBC with Diff; Complete Time: 06:21 [facility] 04/29 05:26 Order name: LFT's; Complete Time: 06:27 [facility] 04/29 05:26 Order name: Magnesium; Complete Time: 06:27 [facility] 04/29 05:26 Order name: NT PRO-BNP; Complete Time: 06:27 [facility] 04/29 05:26 Order name: PT-INR; Complete Time: 06:21 [facility] 04/29 05:26 Order name: Troponin (emerg Dept Use Only); Complete Time: 06:27 [facility] 04/29 05:26 Order name: Blood Culture Adult (2) [facility] 04/29 05:26 Order name: Lactate; Complete Time: 06:21 [facility] 04/29 05:26 Order name: Basic Metabolic Panel; Complete Time: 06:27 [facility] 04/29 06:22 Order name: COVID-19 : Document "Date of Symptom Onset" if Symptomatic. [facility] 04/29 06:28 Order name: Osmolality, Serum [facility] 04/29 06:28 Order name: Urine Sodium Random [facility] 04/29 05:26 Order name: XRAY Chest (1 view) [facility] 04/29 06:28 Order name: Urine Osmolality [facility] 04/29 08:01 Order name: SARS-COV-2 RT PCR [facility] 04/29 08:34 Order name: Sodium Level [facility] 04/29 08:38 Order name: Basic Metabolic Panel [facility] 04/29 08:38 Order name: Basic Metabolic Panel [facility] 04/29 08:38 Order name: Basic Metabolic Panel [facility] 04/29 08:38 Order name: CBC with Automated Diff [facility] 04/29 08:38 Order name: Basic Metabolic Panel [facility] 04/29 08:38 Order name: Basic Metabolic Panel [facility] 04/29 08:38 Order name: Hemoglobin A1c [facility] 04/29 08:38 Order name: Lipid Profile [facility] 04/29 13:07 Order name: Protime (+INR) [facility] 04/29 05:26 Order name: EKG; Complete Time: 05:27 [facility] 04/29 05:26 Order name: Cardiac monitoring; Complete Time: 05:37 [facility] 04/29 05:26 Order name: EKG - Nurse/Tech; Complete Time: 05:59 [facility] 04/29 05:26 Order name: IV Saline Lock; Complete Time: 05:37 [facility] 04/29 05:26 Order name: Labs collected and sent; Complete Time: 05:42 lubna 04/29 05:26 Order name: O2 Per Protocol; Complete Time: lubna 04/29 05:26 Order name: O2 Sat Monitoring; Complete Time: :37 [facility] EC:00 Rate is 60 beats/min. Clinical impression: No evidence of ischemia. Interpreted by me. lubna Reviewed by me. Administered Medications: 05:37 CANCELLED (Physician Discretion): SOLU-Medrol (methylPrednisoLONE) 125 mg IVP once bb 05:50 Drug: Xopenex (levalbuterol) 2.5 mg Route: Inhalation; bb 06:26 Follow up: Response: No adverse reaction bb 05:50 Drug: Zithromax (azithromycin) 500 mg Route: PO; bb 06:26 Follow up: Response: No adverse reaction bb 05:52 Drug: Rocephin (cefTRIAXone) 1 grams Route: IV; Rate: per protocol; Site: left bb antecubital; 06:00 Follow up: IV Status: Completed infusion; IV Intake: 10ml bb 05:55 Drug: Pepcid (famotidine) 20 mg Route: IVP; Site: left antecubital; bb 06:26 Follow up: Response: No adverse reaction bb 06:55 Drug: Lasix (furosemide) 40 mg Route: IVP; Site: left antecubital; bb 06:55 Drug: NS 0.9% 1000 ml Route: IV; Rate: 75 ml/hr; Site: left antecubital; bb Disposition Summary: 04/29/21 05:32 Hospitalization Ordered Hospitalization Status: Inpatient Admission lubna Provider: Parveen Crabtree lubna Condition: Stable lubna Problem: new lubna Symptoms: have improved lubna Bed/Room Type: Standard lubna Location: [facility] ER HOLD(04/29/21 17:19) aa5 Room Assignment: ERHOLD-(04/29/21 17:19) aa5 Diagnosis - COPD/ Chronic obstructive pulmonary disease with (acute) exacerbation lubna - Hypoxemia lubna - Acute upper respiratory infection, unspecified lubna - Cardiomegaly lubna - Systolic (congestive) heart failure lubna - Hypo-osmolality and hyponatremia lubna Forms: - Medication Reconciliation Form lubna - SBAR form lubna Signatures: Dispatcher [employer] Rocio Painting RN RN dw Anderson, Corey, MD MD cha Ballard, Kerry, RN RN bb Sonia Nair, RN RN aa5 Corrections: (The following items were deleted from the chart) 05:37 05:26 SOLU-Medrol (methylPrednisoLONE) 125 mg IVP once ordered. lubna pagan 07:00 06:22 CORONAVIRUS ordered. EDMS EDMS 15:48 05:32 lubna chau 17:19 05:32 Telemetry/MedSurg (Inpatient) lubna carnes 17:19 15:48 [facility] aa5
[2021-04-29 06:07] LABS: Absolute Lymphocytes (CBC) 0.4 K/uL (0.7-4.9); Basophils % 1.4 % (0-1.3); Hematocrit 26.9 % (39.6-49.0); Lymphocytes % 12.5 % (15.3-44.8); MPV 7.7 fL (7.6-11.3); RBC Red Blood Cell Count 2.93 M/uL (4.33-5.43)
[2021-04-29 06:08] LABS: Protime INR 1.09
[2021-04-29] MEDS ORDERED: LEVALBUTEROL 1.25 MG/3 ML NEB ONE (06:12)
[2021-04-29] MEDS ORDERED: AZITHROMYCIN 250 MG TAB ONE (06:12)
[2021-04-29] MEDS ORDERED: FAMOTIDINE 20 MG/2 ML VIAL IV ONE (06:12)
[2021-04-29] MEDS ORDERED: CEFTRIAXONE 1000 MG/VIAL ONE (06:12)
[2021-04-29 06:18] LABS: Albumin 3.2 g/dL (3.4-5.0); Bilirubin Direct 0.2 mg/dL (0-0.2); Bilirubin Total 0.4 mg/dL (0.2-1.0); Magnesium 2.3 mg/dL (1.8-2.4); Potassium 4.1 mmol/L (3.5-5.1); Protein, Total 6.2 g/dL (6.4-8.2); Troponin (Emerg Dept Use Only) 0.04 ng/mL (0.0-0.045)
[2021-04-29] MEDS ORDERED: NA CHLORIDE 0.9% 1,000 ML ONE (07:09)
[2021-04-29] MEDS ORDERED: FUROSEMIDE 40 MG/4 ML VIAL ONE ×3 (07:09→17:39)
--- NOTE | 2021-04-29 07:17 | RAD REPORT ---
EXAM DESCRIPTION: RAD - Chest Single View - 04/29/2021 6:09 am CLINICAL HISTORY: COPD;Cough;Congestion COMPARISON: Chest Single View dated 04/07/2021; Chest Single View dated 03/31/2021; Chest Single View dated 03/30/2021; Chest Single View dated 03/22/2021; Chest For Pe Angio dated 03/30/2021 FINDINGS: Similar pulmonary edema compared with 04/07/2021. Cardiomegaly. Pacemaker.No acute osseous abnormality. No significant pleural effusions or pneumothorax. IMPRESSION: Pulmonary edema is similar to 04/07/2021.
[2021-04-29] MEDS ORDERED: LABETALOL 20 MG/4ML SYRINGE IV PRN (08:33)
[2021-04-29] MEDS: ASPIRIN 81 MG CHEWABLE TABLET PO ONE ×2 (08:47→10:28)
[2021-04-29] MEDS ORDERED: ONDANSETRON 4 MG/2 ML VIAL IV PRN (08:59)
[2021-04-29] MEDS ORDERED: ACETAMINOPHEN 500 MG TAB PO PRN (08:59)
[2021-04-29] MEDS: HEPARIN 5000 UNIT/ML 1 ML VIAL SQ SCH ×2 (09:00→17:00)
--- NOTE | 2021-04-29 09:03 | P.HP ---
Certification for Inpatient Patient admitted to: Inpatient With expected LOS: >2 Midnights Patient will require the following post-hospital care: None Practitioner: I am a practitioner with admitting privileges, knowledge of patient current condition, hospital course, and medical plan of care. Services: Services provided to patient in accordance with Admission requirements found in Title 42 Section 412.3 of the Code of Federal Regulations Patient History Date of Service: 04/29/21 Reason for admission: SOB History of Present Illness: Patient is a 80-year-old male with past medical history significant for chronic systolic congestive heart failure, COPD, CKD 3, chronic hyponatremia who presents to the hospital to shortness of breath that has become worse in the last 3 days. Patient reports associated signs and symptoms of cough, dyspnea with exertion, chest tightness and fatigue. Patient denies any other signs and symptoms. Symptoms are aggravated by exertion and relieved by nothing. Patient decided to present to the hospital due to worsening symptoms. Of note, patient was recently discharged for similar presentation. Allergies No Known Allergies Allergy (Verified 03/23/21 04:35) Home Medications: Primidone 250 mg PO QID 03/23/21 Sacubitril/Valsartan [Entresto 49 mg-51 mg Tablet] 1 tab PO BID #60 tab 03/23/21 Cholecalciferol (Vitamin D3) [Vitamin D3] 10,000 unit PO DAILY #30 capsule 04/01/21 Metoprolol Succinate [Toprol Xl*] 25 mg PO [id number] #30 tab 04/01/21 Albuterol Inhaler [Ventolin Inhaler*] 2 puff IH Q6H PRN #1 hfa.aer.ad 04/10/21 Arformoterol Tartrate [Brovana] 15 mcg NEB BIDRESP #60 vial.neb 04/10/21 Furosemide [Lasix*] 40 mg PO BID 30 Days #60 tab 04/10/21 predniSONE [Prednisone*] 20 mg PO DAILY #7 tab 04/10/21 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 , 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 - Family History Father -: Heart disease Mother -: Heart disease, Hypertension, Diabetes, Cancer - Social History Alcohol use: No CD- Drugs: No Caffeine use: No Place of Residence: Home Review of Systems General: Weakness, Malaise Eyes: Unremarkable ENT: Unremarkable Respiratory: Cough, Shortness of Breath, SOB with Excertion Cardiovascular: Unremarkable Gastrointestinal: Unremarkable Genitourinary: Unremarkable Musculoskeletal: Unremarkable Integumentary: Unremarkable Neurological: Seizures Physical Examination - Physical Exam General: Alert, In no apparent distress, Oriented x3 HEENT: Atraumatic, PERRLA, Mucous membr. moist/pink, EOMI, Sclerae nonicteric Neck: Supple, 2+ carotid pulse no bruit, No LAD, Without JVD or thyroid abnormality Respiratory: Diminished Cardiovascular: Regular rate/rhythm, Normal S1 S2 Capillary refill: <2 Seconds Gastrointestinal: Normal bowel sounds, No tenderness Musculoskeletal: No clubbing, No tenderness Integumentary: No rashes Neurological: Normal gait, Normal speech, Normal tone, Normal affect Lymphatics: No axilla or inguinal lymphadenopathy External genitalia: Deferred Rectal: Deferred - Studies Laboratory Data (last 24 hrs) 04/29/21 05:45: PT 12.5, INR 1.09 04/29/21 05:45: WBC 3.10 L, Hgb 9.5 L, Hct 26.9 L, Plt Count 157 04/29/21 05:45: Sodium 119 L*, Potassium 4.1, BUN 24 H, Creatinine 1.33 H, G lucose 116 H, Magnesium 2.3, Total Bilirubin 0.4, AST 14 L, ALT 21, Alkaline Phosphatase 79 Assessment and Plan - Plan --Acute on chronic systolic CHF exacerbation. Patient placed on diuresis with Lasix. Daily weights and strict I/O. Continue supportive care. --Acute on chronic COPD exacerbation. Patient placed on steroids, neb treatment with Atrovet\Albuterol and O2 therapy as needed. --Acute on chronic hyponatremia. Urine\serum sodium, urine\serum osmolality pending. --Pulmonary edema. As noted on chest x-ray. Likely secondary to CHF exacerbation. Continue diuresis with Lasix. Continue supportive care. --Hypertension. Stable. Continue home medications. --Anemia of chronic disease. H&H stable. We will continue to monitor he moglobin and transfuse if less than 7.0. --Pacemaker presence. Continue supportive care. --Parkinsons disease. Continue home meds when available --Hx pf CVA. Continue aspirin. ----CKD 3A. Stable. [employer]aker on board. Further management per project engineering manager. --DVT prophylaxis with heparin subQ. I have had discussion about advanced directives with the patient during this hospital admission. Addressed code status and /or goals of care. Spent more than 15 minutes. Case discussed withpatient and nurse. Discharge Plan: Home Plan to discharge in: 48 Hours - Advance Directives Does patient have a Living Will: No Does patient have a Durable POA for Healthcare: Yes - Code Status/Comfort Care Code Status Assessed: Yes Code Status: Full Code Physician Review: Patient Assessed, Agree with Above Assessment and Plan Critical Care: No
--- NOTE | 2021-04-29 09:30 | P.CNS ---
<Bird Fox - Last Filed: 04/29/21 09:42> Date of Consult: 04/29/21 Reason for Consult: Hyponatremia Requesting Physician: fredy pina Chief Complaint: Dyspnea History of Present Illness: 80 yo WM COPD, CHF presented to the ER with 24 hours of moderate, progressive dyspnea with associated malaise. Found to have hyponatremia. 05:26 This 80 yrs old Male presents to ER via Unassigned with complaints of copd lubna exacerbation. 05:26 The patient has shortness of breath at rest, with light activity. Onset: The lubna symptoms/episode began/occurred 1 day(s) ago. Duration: The symptoms are continuous, and are steadily getting worse. The patient's shortness of breath has no apparent modifying factors. The patient or guardian reports cough, that is intermittent, difficulty breathing, flu symptoms, myalgias. Modifying factors: The symptoms are alleviated by changing position, the symptoms are aggravated by hot environment, lying flat. Associated signs and symptoms: The patient has no apparent associated signs or symptoms. Severity of symptoms: At their worst the symptoms were mild in the emergency department the symptoms are unchanged. Associated signs and symptoms: The patient has no apparent associated signs or symptoms. 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 - Family History Father Medical History: Heart disease Mother Medical History: Heart disease, Hypertension, Diabetes, Cancer - Social History Smoking Status: Unknown if ever smoked Alcohol use: No CD- Drugs: No Caffeine use: No <Josh Powell - Last Filed: 04/29/21 19:02> Allergies No Known Allergies Allergy (Verified 03/23/21 04:35) Home Medications: Primidone 250 mg PO QID 03/23/21 Sacubitril/Valsartan [Entresto 49 mg-51 mg Tablet] 1 tab PO BID #60 tab 03/23/21 Cholecalciferol (Vitamin D3) [Vitamin D3] 10,000 unit PO DAILY #30 capsule 04/01/21 Metoprolol Succinate [Toprol Xl*] 25 mg PO [id number] #30 tab 04/01/21 Albuterol Inhaler [Ventolin Inhaler*] 2 puff IH Q6H PRN #1 hfa.aer.ad 04/10/21 Arformoterol Tartrate [Brovana] 15 mcg NEB BIDRESP #60 vial.neb 04/10/21 predniSONE [Prednisone*] 20 mg PO DAILY #7 tab 04/10/21 Furosemide [Lasix*] 40 mg PO BID 30 Days #60 tab 04/29/21 Review of Systems 10-point ROS is otherwise unremarkable General: Weakness, Malaise Respiratory: Shortness of Breath, SOB with Excertion <Josh Powell - Last Filed: 04/29/21 19:02> Physical Examination Capillary refill: <2 Seconds Laboratory Data (last 24 hrs) 04/29/21 05:45: PT 12.5, INR 1.09 04/29/21 05:45: WBC 3.10 L, Hgb 9.5 L, Hct 26.9 L, Plt Count 157 04/29/21 05:45: Sodium 119 L*, Potassium 4.1, BUN 24 H, Creatinine 1.33 H, Glucose 116 H, Magnesium 2.3, Total Bilirubin 0.4, AST 14 L, ALT 21, Alkaline Phosphatase 79 <Bird Fox - Last Filed: 04/29/21 09:42> General: In no apparent distress, Cooperative HEENT: Atraumatic Neck: Supple Respiratory: Diminished Cardiovascular: Regular rate/rhythm Gastrointestinal: Soft and benign, Non-distended Musculoskeletal: No clubbing, No contractures Integumentary: No rashes, No cyanosis Neurological: Normal speech Laboratory Data (last 24 hrs) 04/29/21 05:45: PT 12.5, INR 1.09 04/29/21 05:45: WBC 3.10 L, Hgb 9.5 L, Hct 26.9 L, Plt Count 157 04/29/21 05:45: Sodium 119 L*, Potassium 4.1, BUN 24 H, Creatinine 1.33 H, Glucose 116 H, Magnesium 2.3, Total Bilirubin 0.4, AST 14 L, ALT 21, Alkaline Phosphatase 79 Imagings Data: EXAM DESCRIPTION: RAD - Chest Single View - 04/29/2021 6:09 am CLINICAL HISTORY: COPD;Cough;Congestion COMPARISON: Chest Single View dated 04/07/2021; Chest Single View dated 03/31/2021; Chest Single View dated 03/30/2021; Chest Single View dated 03/22/2021; Chest For Pe Angio dated 03/30/2021 FINDINGS: Similar pulmonary edema compared with 04/07/2021. Cardiomegaly. Pacemaker.No acute osseous abnormality. No significant pleural effusions or pneumothorax. IMPRESSION: Pulmonary edema is similar to 04/07/2021. <Josh Powell - Last Filed: 04/29/21 19:02> Conclusions/Impression: CKD III -No NSAIDs Hypervolemia Hyponatremia -Continue furosemide Systolic CHF, A/C -Continue Entresto -Continue furosemide DM II with CKD -No sugar diet Anemia in chronic illness -Monitor H&H -Transfuse PRBC as needed Thank you kindly for the consultation. <Josh Powell - Last Filed: 04/29/21 19:02>
[2021-04-29 09:43] LABS: Absolute Lymphocytes (CBC) 0.1 K/uL (0.7-4.9); Basophils % 0.3 % (0-1.3); Hematocrit 27.7 % (39.6-49.0); Lymphocytes % 3.1 % (15.3-44.8); MPV 7.7 fL (7.6-11.3); RBC Red Blood Cell Count 3.01 M/uL (4.33-5.43)
[2021-04-29 09:44] VITALS: BMI 21.9
[2021-04-29] MEDS: FUROSEMIDE 40 MG/4 ML VIAL IV SCH ×2 (10:29→17:00)
[2021-04-29] MEDS ORDERED: ASPIRIN 81 MG CHEWABLE TABLET ONE (10:37)
[2021-04-29] MEDS ORDERED: HEPARIN 5000 UNIT/ML 1 ML VIAL ONE (10:38)
[2021-04-29 11:13] VITALS: O2SAT 100
[2021-04-29 12:40] LABS: Protime INR 1.06
--- NOTE | 2021-04-29 13:00 | EKG ---
Test Date: 2021-04-29 Test Time: 05:55:39 [employer]: CHIN MEASUREMENT RESULTS: Intervals: Rate: 60 TN: 104 QRSD: 156 QT: 468 QTc: 468 [place]: P: 81 TN: 104 QRS: -62 T: 117 INTERPRETIVE STATEMENTS: Electronic ventricular pacemaker Compared to ECG 04/07/2021 02:09:34 No significant changes Electronically Signed On 04-29-21 12:59:15 CDT by Max Pro
[2021-04-29 13:34] VITALS: TEMP 97.5
[2021-04-29] MEDS ORDERED: ALBUTEROL 2.5 MG/3 ML NEB SOL ONE (13:34)
[2021-04-29] MEDS ORDERED: IPRATROPIUM BROM 0.5MG/2.5ML ONE (13:34)
[2021-04-29] MEDS ORDERED: IPRATROPIUM BROM 0.5MG/2.5ML NEB SCH (14:00)
[2021-04-29] MEDS ORDERED: ALBUTEROL 2.5 MG/3 ML NEB SOL NEB SCH (14:00)
[2021-04-29 16:59] VITALS: BP 124/61
[2021-04-29] MEDS ORDERED: METHYLPREDNISOLONE 40 MG INJ IV SCH (17:00)
--- NOTE | 2021-04-29 17:11 | P.DS ---
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 use: with termite treater helper use Diabetes mellitus complication status: without complication Qualified Code(s): E11.9 - Type 2 diabetes mellitus without complications; Z79.4 - senior living (current) use of insulin (6) HTN (hypertension) Onset Date: 11/24/17 Status: Chronic Qualifiers: Hypertension type: primary hypertension Qualified Code(s): I10 - Essential (primary) hypertension Brief History of Present Illness: 80-year-old man with past medical history significant for chronic systolic congestive heart failure, COPD, CKD 3, chronic hyponatremia frequent admissions for COPD exacerbation and CHF presented to the emergency department with a complaint of progressive shortness of breath over the last 3 days. Patient stated he uses nebulizers without significant improvement. Symptoms associated with nonproductive cough. Chest x-ray in the ED demonstrated pulmonary edema which is unchanged from previous. Patient hospitalized for further management. Hospital Course: Patient placed under observation and treated with IV Lasix, scheduled bronchodilators and IV steroid. Condition rapidly improved with treatment. He is currently at baseline, tolerating room air with oxygen saturation of 100%. He is deemed stable for discharge. Vital Signs/Physical Exam: Temp Pulse Resp BP Pulse Ox 97.5 F 60 16 124/61 100 04/29/21 16:00 04/29/21 16:00 04/29/21 16:00 04/29/21 16:00 04/29/21 16:00 General: Alert, In no apparent distress, Oriented x3 HEENT: Mucous membr. moist/pink Neck: JVD not distended Respiratory: Clear to auscultation bilaterally, Normal air movement Cardiovascular: Regular rate/rhythm, Normal S1 S2 Gastrointestinal: Soft and benign, Non-distended Musculoskeletal: No swelling Integumentary: No rashes Neurological: Normal strength at 5/5 x4 extr Laboratory Data at Discharge: WBC 4.20 K/uL (4.3-10.9) L D 04/29/21 09:09 Hgb 9.9 g/dL (13.6-17.9) L 04/29/21 09:09 Hct 27.7 % (39.6-49.0) L 04/29/21 09:09 Plt Count 145 K/uL (152-406) L 04/29/21 09:09 PT 12.2 SECONDS (9.5-12.5) 04/29/21 12:05 INR 1.06 04/29/21 12:05 Sodium 120 mmol/L (136-145) L 04/29/21 09:09 Sodium 120 mmol/L (136-145) L 04/29/21 09:09 Potassium 4.0 mmol/L (3.5-5.1) 04/29/21 09:09 BUN 25 mg/dL (7-18) H 04/29/21 09:09 Creatinine 1.39 mg/dL (0.55-1.3) H 04/29/21 09:09 Glucose 154 mg/dL (74-106) H 04/29/21 09:09 Magnesium 2.3 mg/dL (1.8-2.4) 04/29/21 05:45 Total Bilirubin 0.4 mg/dL (0.2-1.0) 04/29/21 05:45 AST 14 U/L (15-37) L 04/29/21 05:45 ALT 21 U/L (12-78) 04/29/21 05:45 Alkaline Phosphatase 79 U/L (45-117) 04/29/21 05:45 Triglycerides 84 mg/dL (<150) 04/29/21 09:09 Cholesterol 174 mg/dL (<200) 04/29/21 09:09 HDL Cholesterol 51 mg/dL (40-60) 04/29/21 09:09 Cholesterol/HDL Ratio 3.41 04/29/21 09:09 Home Medications: Primidone 250 mg PO QID 03/23/21 Sacubitril/Valsartan [Entresto 49 mg-51 mg Tablet] 1 tab PO BID #60 tab 03/23/21 Cholecalciferol (Vitamin D3) [Vitamin D3] 10,000 unit PO DAILY #30 capsule 04/01/21 Metoprolol Succinate [Toprol Xl*] 25 mg PO [id number] #30 tab 04/01/21 Albuterol Inhaler [Ventolin Inhaler*] 2 puff IH Q6H PRN #1 hfa.aer.ad 04/10/21 Arformoterol Tartrate [Brovana] 15 mcg NEB BIDRESP #60 vial.neb 04/10/21 predniSONE [Prednisone*] 20 mg PO DAILY #7 tab 04/10/21 Furosemide [Lasix*] 40 mg PO BID 30 Days #60 tab 04/29/21 New Medications: Furosemide [Lasix*] 40 mg PO BID 30 Days #60 tab Diet: AHA Activity: Fall precautions Followup: Everardo Gonzalez MD [ACTIVE - CAN ADMIT] - Unknown,U [Primary Care Provider] - 1 Week
[2021-04-29] MEDS ORDERED: METHYLPREDNISOLONE 40 MG INJ ONE (17:39)
--- NOTE | 2021-04-29 18:16 | ER ---
Nurse's Notes [facility] Name: Jimbo Cat Age: 80 yrs Sex: Male : 1940 Arrival Date: 04/29/2021 Time: 05:16 Bed 26 Private MD: Diagnosis: COPD/ Chronic obstructive pulmonary disease with (acute) exacerbation;Hypoxemia;Acute upper respiratory infection, unspecified;Cardiomegaly;Systolic (congestive) heart failure;Hypo-osmolality and hyponatremia Presentation: 04/29 05:30 Chief complaint: EMS states: they were toned out for report of pt with difficulty bb breathing worsening over the last 3 days. Coronavirus screen: Client presents with at least one sign or symptom that may indicate coronavirus-19. Standard/surgical mask placed on the client. Ebola Screen: No symptoms or risks identified at this time. Initial Sepsis Screen: Does the patient meet any 2 criteria? No. Patient's initial sepsis screen is negative. Does the patient have a suspected source of infection? Yes: Productive cough/pneumonia. Risk Assessment: Do you want to hurt yourself or someone else? Patient reports no desire to harm self or others. Onset of symptoms was April 25, 2021. 05:30 Method Of Arrival: EMS: [facility] bb 05:30 Acuity: SYDNIE 3 bb 05:36 Care prior to arrival: Medication(s) given: Albuterol Neb x 3, Atrovent Neb x 1, solu bb medrol 125mg, magnesium 2 mg IV initiated. 20 GA, in the left antecubital area, Med neb given. Oxygen administered. via a nebulizer mask. Triage Assessment: 05:33 General: Appears in no apparent distress. uncomfortable, slender, Behavior is calm, bb cooperative. Pain: Denies pain. Neuro: Level of Consciousness is awake, alert, obeys commands, Oriented to person, place, situation. Cardiovascular: Capillary refill < 3 seconds Patient's skin is warm and dry. Respiratory: Respiratory effort is labored, Respiratory pattern is tachypnea Breath sounds with wheezes bilaterally. GI: Abdomen is non-distended. Derm: Skin is dry, Skin is pale, Skin temperature is warm. Musculoskeletal: Circulation, motion, and sensation intact. Historical: - Allergies: 05:33 No Known Allergies; bb - PMHx: 05:33 Alcoholism; Shantanu cataracts; CAD; CHF; Chronic hyponatremia; COPD; CVA; depressive bb disorder; Diabetes; HEART FAILURE; Hyperlipidemia; Hypertension; Parkinson's disease; possible dementia; - Immunization history:: Adult Immunizations up to date, Client reports having NOT received the Covid vaccine. - Social history:: Smoking status: Patient denies any tobacco usage or history of. Patient/guardian denies using alcohol. - Family history:: not pertinent. Screenin:35 Abuse screen: Denies threats or abuse. Nutritional screening: No deficits noted. bb Tuberculosis screening: No symptoms or risk factors identified. Fall Risk None identified. Assessment: 05:35 Reassessment: No changes from previously documented assessment. Patient is alert, bb oriented x 3, equal unlabored respirations, skin warm/dry/pink. see triage assessment. Vital Signs: 05:30 BP 145 / 92; Pulse 60; Resp 28 S; Pulse Ox 100% on Nebulizer Mask; Weight 63.5 kg (R); bb Height 5 ft. 7 in. (170.18 cm) (R); Pain 0/10; 05:30 Body Mass Index 21.93 (63.50 kg, 170.18 cm) bb ED Course: 05:16 Patient arrived in ED. lubna 05:17 Terry Sanderson MD is Attending Physician. lubna 05:31 Parveen Crabtree MD is Hospitalizing Provider. lubna 05:33 Triage completed. bb 05:33 Antipyretic given from triage as ordered by the ER provider. Patient placed in an exam bb room, on a stretcher, on oxygen, on phototypesetting equipment monitor, on pulse oximetry. 05:35 Patient has correct armband on for positive identification. Bed in low position. Call bb light in reach. Side rails up X2. quality assurance monitor final on. Pulse ox on. NIBP on. 05:35 Maintain EMS IV. Dressing intact. Site clean \\T\\ dry. Gauge \\T\\ site: 20 g L AC. bb 06:04 Kerry Tucker, SABINE is Primary Nurse. bb 06:09 XRAY Chest (1 view) In Process Unspecified. EDMS 06:33 COVID-19 : Document "Date of Symptom Onset" if Symptomatic. Sent. bb 15:04 Primary Nurse role handed off by Kerry Tucker RN bd Administered Medications: 05:37 CANCELLED (Physician Discretion): SOLU-Medrol (methylPrednisoLONE) 125 mg IVP once bb 05:50 Drug: Xopenex (levalbuterol) 2.5 mg Route: Inhalation; bb 06:26 Follow up: Response: No adverse reaction bb 05:50 Drug: Zithromax (azithromycin) 500 mg Route: PO; bb 06:26 Follow up: Response: No adverse reaction bb 05:52 Drug: Rocephin (cefTRIAXone) 1 grams Route: IV; Rate: per protocol; Site: left bb antecubital; 06:00 Follow up: IV Status: Completed infusion; IV Intake: 10ml bb 05:55 Drug: Pepcid (famotidine) 20 mg Route: IVP; Site: left antecubital; bb 06:26 Follow up: Response: No adverse reaction bb 06:55 Drug: Lasix (furosemide) 40 mg Route: IVP; Site: left antecubital; bb 06:55 Drug: NS 0.9% 1000 ml Route: IV; Rate: 75 ml/hr; Site: left antecubital; bb Intake: 06:00 IV: 10ml; Total: 10ml. bb Outcome: 05:32 Decision to Hospitalize by Provider. lubna 18:15 Patient left the ED. aa5 Signatures: Dispatcher [employer] EDMS Bettina Pratt Corey, MD MD cha Ballard, Brenda, RN RN Sonia Parr RN RN aa5 Corrections: (The following items were deleted from the chart) 06:07 05:02 Rocephin (cefTRIAXone) 1 grams IV at per protocol in left antecubital bb bb
== END 2021-04-29 18:46 | disposition home health service (06) ==
LOC: ER 05:15 → ERHOLD 08:38 → INTOOBSV 08:38
PROVIDERS: ADMIT Internal Medicine; ATTEND Internal Medicine
DX: I13.0 Hypertensive heart and chronic kidney disease with heart failure and stage 1 through stage 4 chronic kidney disease, or unspecified chronic kidney disease (principal); E11.22 Type 2 diabetes mellitus with diabetic chronic kidney disease; I50.23 Acute on chronic systolic (congestive) heart failure; N18.31 Chronic kidney disease, stage 3a; D63.1 Anemia in chronic kidney disease; J44.1 Chronic obstructive pulmonary disease with (acute) exacerbation; R09.02 Hypoxemia; E87.1 Hypo-osmolality and hyponatremia; I48.0 Paroxysmal atrial fibrillation; I25.10 Atherosclerotic heart disease of native coronary artery without angina pectoris; E78.5 Hyperlipidemia, unspecified; G20 Parkinson's disease; F32.9 Major depressive disorder, single episode, unspecified; Z20.822 Contact with and (suspected) exposure to COVID-19; Z95.0 Presence of cardiac pacemaker; Z86.73 Personal history of transient ischemic attack (TIA), and cerebral infarction without residual deficits; Z85.89 Personal history of malignant neoplasm of other organs and systems; Z82.49 Family history of ischemic heart disease and other diseases of the circulatory system; Z83.3 Family history of diabetes mellitus; Z80.9 Family history of malignant neoplasm, unspecified
CPT/HCPCS: 93005; 87040 ×2; 85025 ×2; 80048 ×2; 36415; 83735; 85610 ×2; 84295; 80061; 80076; 83605; 83036; 84484; 83880; 83930; 71045; 96375; 96374; 99285; U0003; J1940 ×3; J1644; J7030; J2920

== ENCOUNTER 2021-06-15 00:49 | Emergency (ER) | payer OTHER ==
[2021-06-15 01:33] LABS: Absolute Lymphocytes (CBC) 0.4 K/uL (0.7-4.9); Basophils % 1.1 % (0-1.3); Hematocrit 27.3 % (39.6-49.0); Lymphocytes % 8.5 % (15.3-44.8); MPV 7.3 fL (7.6-11.3); RBC Red Blood Cell Count 2.93 M/uL (4.33-5.43)
[2021-06-15 01:43] LABS: Albumin 3.2 g/dL (3.4-5.0); Bilirubin Direct 0.2 mg/dL (0-0.2); Bilirubin Total 0.4 mg/dL (0.2-1.0); Protein, Total 6.3 g/dL (6.4-8.2); Troponin (Emerg Dept Use Only) 0.04 ng/mL (0.0-0.045)
[2021-06-15 02:03] LABS: Blood Morphology Comment NOT SEEN (NOT SEEN); Platelet Estimate ADEQ
--- NOTE | 2021-06-15 05:29 | RAD REPORT ---
EXAM DESCRIPTION: CT - Angio Aorta For Dissection - 06/15/2021 2:32 am CLINICAL HISTORY: abdominal pain;Chest pain COMPARISON: None. TECHNIQUE: Dynamically enhanced 3 mm thick images of the chest, abdomen, and upper pelvis were obtai cl during administration of approximately 150mL Isovue 370 IV contrast. Sagittal and coronal reconst ruction images were generated using MIP and reviewed. Exam utilizes a protocol to evaluate entire cou rse of the aorta. All CT scans are performed using dose optimization technique as appropriate and may include automated exposure control or mA/KV adjustment according to patient size. FINDINGS: Aorta is normal in diameter with no dissection or other acute aortic findings. Reconstruct ion images show no significant findings. Minimal for age atherosclerotic wall calcifications present. No centrally displaced calcifications. Pulmonary arteries are normal as well. Patient has pronounced cardiomegaly without pericardial thicke dwayne or effusion. Is primarily left ventricular and left atrial dilatation. No acute infiltrate or mass seen in the lung parenchyma. 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 Numerous small juxtapleu ral nodules are present and a long-standing stable pattern. No pleural thickening, pleural effusion o r pneumothorax. Again noted are the numerous small and medium-sized partially calcified mediastinal and hilar lymph n odes. Old granulomatous disease or sarcoidosis are probably etiologies. Pattern is stable. No chest w all mass or abnormal axillary lymphadenopathy. Celiac, SMA and renal arteries show no suspicious findings. Solid abdominal viscera and bowel show no significant findings. No mass or abnormal lymphadenopathy. No free air, free fluid or inflammatory stranding. No urinary bladder abnormality. Mild fluid retention seen in the subcutaneous tissues. IMPRESSION: Negative CT scan of the aorta. Additional findings detailed in the body of the report are stable prior imaging.
--- NOTE | 2021-06-15 05:46 | RAD REPORT ---
EXAM DESCRIPTION: RAD - Chest Single View - 06/15/2021 1:15 am CLINICAL HISTORY: CHEST PAIN COMPARISON: April 29 TECHNIQUE: AP portable chest image was obtained 06/15/2021 1:15 am . FINDINGS: No peripheral mass or consolidation identified. Skin fold artifact overlies the lateral ma rgin of the left chest. No new mass or focal lung parenchymal process. Interstitial pattern in vascul ature are decreased from April. Prominent cardiomegaly again noted. Upper lobe vasculature within normal limits. Defibrillator is in place. No measurable pleural effusion and no pneumothorax. No acute bony abnormality seen. No acute aortic findings suspected. IMPRESSION: No acute cardiopulmonary process. Prominent cardiomegaly again noted. Vasculature and lung markings are much less pronounced than seen April 29.
--- NOTE | 2021-06-15 05:47 | EDPHYS ---
Physician Documentation [facility] Name: Jimbo Cat Age: 80 yrs Sex: Male : 1940 Arrival Date: 06/15/2021 Time: 00:50 Bed 17 Private MD: ED Physician Rhys Dent HPI: 06/15 00:56 This 80 yrs old Male presents to ER via Unassigned with complaints of Chest rn pain and abdominal pain. 00:56 The patient or guardian reports chest pain that is located primarily in the substernal rn area, epigastric area. Onset: today. The pain does not radiate. Associated signs and symptoms: Pertinent positives: cough, Pertinent negatives: diaphoresis, lightheadedness, palpitations, shortness of breath, syncope. The chest pain is described as aching. Duration: The patient or guardian reports a single episode, that is now resolved. Modifying factors: The symptoms are alleviated by ASA, NTG, the symptoms are aggravated by nothing. Severity of pain: At its worst the pain was mild in the emergency department the pain has resolved. The patient has experienced similar episodes in the past. The patient has not recently seen a physician. Patient reports called EMS for chest pain and abdominal pain. States abdominal pain began first is diffuse and not associated with nausea vomiting or diarrhea. No blood in stool. States about an hour or 2 ago started with chest pain which is substernal nonradiating, not associated with diaphoresis. No syncope. Given aspirin and nitroglycerin x1 by EMS with resolution of chest pain. Still reporting abdominal pain.. Historical: - Allergies: 01:08 No Known Allergies; bc5 - Immunization history:: Pneumococcal vaccine is up to date, Flu vaccine is up to date. - Family history:: not pertinent. - Social history:: Smoking status: Patient denies any tobacco usage or history of. - Hospitalizations: : No recent hospitalization is reported. ROS: 00:56 Constitutional: Negative for fever, chills, and weight loss, Eyes: Negative for injury, rn pain, redness, and discharge, Neck: Negative for injury, pain, and swelling, Cardiovascular: Negative for palpitations, and edema, Respiratory: Negative for shortness of breath, cough, wheezing, and pleuritic chest pain, Abdomen/GI: Negative for nausea, vomiting, diarrhea, and constipation, Back: Negative for injury and pain, : Negative for injury, bleeding, discharge, and swelling, MS/Extremity: Negative for injury and deformity, Skin: Negative for injury, rash, and discoloration, Neuro: Negative for headache, weakness, numbness, tingling, and seizure. 00:56 All other systems are negative. Exam: 00:56 Constitutional: This is a well developed, well nourished patient who is awake, alert, rn and in no acute distress. Head/Face: Normocephalic, atraumatic. Eyes: Periorbital areas with no swelling, redness, or edema. Cardiovascular: Regular rate and rhythm. No pulse deficits. Respiratory: No increased work of breathing, no retractions or nasal flaring. Abdomen/GI: Soft, tender periumbilical region and left lower quadrant. No rebound or masses palpated Skin: Warm, dry MS/ Extremity: Pulses equal, no cyanosis. Neurovascular intact. Full, normal range of motion. Equal circumference. Neuro: Awake and alert, GCS 15, oriented to person, place, time, and situation. Cranial nerves II-XII grossly intact. Motor strength 5/5 in all extremities. Sensory grossly intact. Vital Signs: 00:56 BP 142 / 79; Pulse 60; Resp 16; Temp 98.5(O); Pulse Ox 100% on R/A; Weight 62.6 kg (R); bc5 Height 5 ft. 7 in. (170.18 cm) (R); Pain 0/10; 02:48 BP 137 / 74; Pulse 60; Resp 16; Pulse Ox 99% on R/A; Pain 0/10; bc5 04:00 BP 127 / 60; Pulse 60; Resp 15; Pulse Ox 100% on R/A; Pain 0/10; bc5 00:56 Body Mass Index 21.61 (62.60 kg, 170.18 cm) 5 MDM: 00:50 Patient medically screened. rn 05:40 Differential diagnosis: acute myocardial infarction, acute pericarditis, anxiety, rn coronary artery disease costochondritis, esophagitis, gastritis, gastroesophageal reflux disease (GERD), pericarditis, pleurisy, pneumonia, pneumothorax, enteritis, bowel obstruction, acid reflux. The patient was not given aspirin in the Emergency Department. Administered by EMS. Data reviewed: vital signs, nurses notes, lab test result(s), EKG, radiologic studies, CT scan, and as a result, I will admit patient. Data interpreted: Pulse oximetry: on room air is 99 %. Interpretation: normal. Counseling: I had a detailed discussion with the patient and/or guardian regarding: the historical points, exam findings, and any diagnostic results supporting the discharge/admit diagnosis, lab results, radiology results, the need for outpatient follow up, to return to the emergency department if symptoms worsen or persist or if there are any questions or concerns that arise at home. Admission orders: after a detailed discussion of the patient's condition and case, the admit orders are written by me. ED course: No acute findings on bloodwork/ECG/CT chest/abdomen/pelvis. I recommended observation given chest pain resolved with nitroglycerin by EMS. Patient refuses to stay. States feels fine and asymptomatic and asking for food. Troponin negative and no ischemia on ECG but resolution with nitroglycerin is concerning to me. I recommended admission another time and patient declines. States wants to go home, there is no way he is staying here, and promises to return if anything returns or worsens. Understands the risks of leaving and not being admitted for cardiac evaluation.. 06/15 00:51 Order name: Basic Metabolic Panel; Complete Time: 02:06/15 00:51 Order name: CBC with Diff; Complete Time: 02:04 rn 06/15 00:51 Order name: Hepatic Function; Complete Time: 02:06/15 00:51 Order name: Lipase; Complete Time: 02:01 06/15 00:51 Order name: BNP; Complete Time: 02:06/15 00:51 Order name: Troponin (emerg Dept Use Only); Complete Time: 02:06/15 00:51 Order name: IV Saline Lock; Complete Time: 01:06/15 00:51 Order name: Labs collected and sent; Complete Time: 01:06/15 00:51 Order name: XRAY Chest (1 view); Complete Time: 05:47 rn 06/15 00:52 Order name: CT Aorta for Dissection; Complete Time: 05:36 rn 06/15 00:53 Order name: EKG; Complete Time: 00:53 rn 06/15 01:35 Order name: Manual Differential; Complete Time: 02:04 EDMS 06/15 02:35 Order name: SARS-COV-2 RT PCR; Complete Time: 02:35 EDMS 06/15 00:53 Order name: EKG - Nurse/Tech; Complete Time: 01:21 rn Administered Medications: No medications were administered Disposition Summary: 06/15/21 05:47 Discharge Ordered Location: Home rn Problem: new rn Symptoms: have improved rn Condition: Stable rn Diagnosis - Chest pain, unspecified rn - Abdominal pain, unspecified rn Followup: rn - With: Private Physician - When: As needed - Reason: Recheck today's complaints, Re-evaluation by your physician Discharge Instructions: - Discharge Summary Sheet rn - Abdominal Pain, Adult rn - Nonspecific Chest Pain, Adult rn - Pain Without a Known Cause rn Forms: - Medication Reconciliation Form rn - Thank You Letter rn - 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 [facility] EDNM 01:08 01:08 PMHx: Hypertension; [place] [id number] 01:08 01:08 PMHx: Diabetes; [place] [id number] 01:08 01:08 PMHx: HEART FAILURE; [email or web address] 01:08 01:08 PMHx: Alcoholism; [email or web address] 01:08 01:08 PMHx: possible dementia; [place] [id number] 01:08 01:08 PMHx: CVA; [place] [id number] 01:08 01:08 PMHx: COPD; [place] [id number] 01:08 01:08 PMHx: CAD; 5 5 01:08 01:08 PMHx: depressive disorder; 5 5 01:08 01:08 PMHx: Hyperlipidemia; [email or web address] 01:08 01:08 PMHx: Shantanu cataracts; [email or web address] 01:08 01:08 PMHx: CHF; 5 5 01:08 01:08 PMHx: Parkinson's disease; [email or web address] 01:08 01:08 PMHx: Chronic hyponatremia; [place] [id number] 01:08 01:08 PSHx: Pacemaker/Defib; [email or web address] 01:08 01:08 PSHx: Appendectomy; 5 5 :08 01:08 PSHx: Cervical vertebrae surgery x 2; 5 5 : 01:08 PSHx: Benign tumo removed from L knee; 5 5 :08 01:08 PSHx: Tonsillectomy; 5 5 :08 01:08 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
--- NOTE | 2021-06-15 05:47 | ER ---
Nurse's Notes [facility] Name: Jimbo Cat Age: 80 yrs Sex: Male : 1940 Arrival Date: 06/15/2021 Time: 00:50 Bed 17 Private MD: Diagnosis: Chest pain, unspecified;Abdominal pain, unspecified Presentation: 06/15 00:56 Chief complaint: Patient states: BIBA. Pt c/o chest pain and abdominal pain that woke bc5 him up. EMS gave 324 ASA and nitro x 1 sublingual with reported relief. A\\T\\O x 3, RR is even and unlabored, speaking in clear and complete sentences at this time. Coronavirus screen: Vaccine status: Patient reports being unvaccinated. Pt stated "I think so" when asked about covid vaccine. Ebola Screen: Patient negative for fever greater than or equal to 101.5 degrees Fahrenheit, and additional compatible Ebola Virus Disease symptoms Patient denies exposure to infectious person. Patient denies travel to an Ebola-affected area in the 21 days before illness onset. No symptoms or risks identified at this time. Initial Sepsis Screen: Does the patient meet any 2 criteria? No. Patient's initial sepsis screen is negative. Does the patient have a suspected source of infection? No. Patient's initial sepsis screen is negative. Risk Assessment: Do you want to hurt yourself or someone else? Patient reports no desire to harm self or others. Onset of symptoms was June 15, 2021. 00:56 Method Of Arrival: EMS: [facility] 00:56 Acuity: SYDNIE 3 bc5 Triage Assessment: 01:06 General: Appears in no apparent distress. comfortable, Behavior is calm, cooperative, bc5 appropriate for age. Pain: Denies pain. Historical: - Allergies: 01:08 No Known Allergies; bc5 - Immunization history:: Pneumococcal vaccine is up to date, Flu vaccine is up to date. - Family history:: not pertinent. - Social history:: Smoking status: Patient denies any tobacco usage or history of. - Hospitalizations: : No recent hospitalization is reported. Screenin:07 Abuse screen: Denies threats or abuse. Denies injuries from another. Nutritional bc5 screening: No deficits noted. Tuberculosis screening: No symptoms or risk factors identified. Fall Risk No fall in past 12 months (0 pts). No secondary diagnosis (0 pts). IV access (20 points). Ambulatory Aid- None/Bed Rest/Nurse Assist (0 pts). Gait- Normal/Bed Rest/Wheelchair (0 pts) Mental Status- Oriented to own ability (0 pts). Total Johnston Fall Scale indicates No Risk (0-24 pts). Vital Signs: 00:56 BP 142 / 79; Pulse 60; Resp 16; Temp 98.5(O); Pulse Ox 100% on R/A; Weight 62.6 kg (R); bc5 Height 5 ft. 7 in. (170.18 cm) (R); Pain 0/10; 02:48 BP 137 / 74; Pulse 60; Resp 16; Pulse Ox 99% on R/A; Pain 0/10; bc5 04:00 BP 127 / 60; Pulse 60; Resp 15; Pulse Ox 100% on R/A; Pain 0/10; bc5 00:56 Body Mass Index 21.61 (62.60 kg, 170.18 cm) 5 ED Course: 00:50 Patient arrived in ED. mw2 00:50 Rhys Dent MD is Attending Physician. rn 00:56 Kanika Matthews, SABINE is Primary Nurse. bc5 01:01 Basic Metabolic Panel Sent. cw2 01:01 CBC with Diff Sent. cw2 01:02 Hepatic Function Sent. cw2 01:02 Lipase Sent. cw2 01:02 BNP Sent. cw2 01:02 Troponin (emerg Dept Use Only) Sent. cw2 01:06 Triage completed. bc5 01:07 Arm band placed on right wrist. bc5 01:09 Patient has correct armband on for positive identification. Bed in low position. Call [facility] light in reach. Side rails up X2. 01:16 XRAY Chest (1 view) In Process Unspecified. EDMS 02:54 No provider procedures requiring assistance completed. bc5 04:09 CT Aorta for Dissection In Process Unspecified. EDMS Administered Medications: No medications were administered Outcome: 05:47 Discharge ordered by . rn 06:28 Patient left the ED. cw2 Signatures: Dispatcher [employer] EDMS Rhys Dent MD MD rn [place], MyKena mw2 Kanika Matthews, RN RN 5 Abner Barry RN RN cw2 Corrections: (The following items were deleted from the chart) 01:08 PMHx: Hypertension; bc5 bc5 : 01:08 PMHx: Diabetes; bc5 bc5 : 01:08 PMHx: HEART FAILURE; bc5 bc5 01:08 PMHx: Alcoholism; bc5 5 : 01:08 PMHx: possible dementia; bc5 5 : 01:08 PMHx: CVA; bc5 5 : 01:08 PMHx: COPD; bc5 5 : 01:08 PMHx: CAD; bc5 5 : 01:08 PMHx: depressive disorder; bc5 5 : 01:08 PMHx: Hyperlipidemia; bc5 5 01:08 PMHx: Shantanu cataracts; bc5 5 : 01:08 PMHx: CHF; bc5 5 01:08 PMHx: Parkinson's disease; bc5 5 01:08 PMHx: Chronic hyponatremia; 5 5 : 01:08 PSHx: Pacemaker/Defib; bc5 5 : 01:08 PSHx: Appendectomy; bc5 5 : 01:08 PSHx: Cervical vertebrae surgery x 2; 5 5 : 01:08 PSHx: Benign tumo removed from L knee; 5 5 : 01:08 PSHx: Tonsillectomy; bc5 5 : 01:08 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
[2021-06-15 06:58] VITALS: TEMP 98.5
[2021-06-15 07:01] VITALS: BP 127/60; O2SAT 100
== END 2021-06-15 06:28 | disposition home or self-care (01) ==
LOC: ER 00:49
DX: R10.13 Epigastric pain (principal); Z20.822 Contact with and (suspected) exposure to COVID-19
CPT/HCPCS: 93005 ×2; 85025; 80048; 36415; 80076; 84484; 83690; 83880; 71275; 74175; 71045; 99283; U0003; Q9967

== ENCOUNTER 2021-06-23 00:07 | Inpatient (IN) | payer OTHER ==
--- NOTE | 2021-06-23 01:27 | ER ---
Nurse's Notes [facility] Name: Jimbo Cat Age: 80 yrs Sex: Male : 1940 Arrival Date: 06/23/2021 Time: 00:22 Bed 17 Private MD: Diagnosis: Cardiomegaly;Systolic (congestive) heart failure;Unspecified combined systolic (congestive) and diastolic (congestive) heart failure;Hypo-osmolality and hyponatremia;Hypomagnesemia;Anemia, unspecified Presentation: 06/23 00:31 Chief complaint: Patient states: BIBA. 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 Pt denies subjective fever. No swelling noted at this time. A\\T\\O x 3, RR is even and unlabored, speaking in clear and complete sentences at this time. Coronavirus screen: Vaccine status: Patient reports receiving the 2nd dose of the covid vaccine. Ebola Screen: Patient negative for fever greater than or equal to 101.5 degrees Fahrenheit, and additional compatible Ebola Virus Disease symptoms Patient denies exposure to infectious person. Patient denies travel to an Ebola-affected area in the 21 days before illness onset. No symptoms or risks identified at this time. Initial Sepsis Screen: Does the patient meet any 2 criteria? No. Patient's initial sepsis screen is negative. Does the patient have a suspected source of infection? No. Patient's initial sepsis screen is negative. Risk Assessment: Do you want to hurt yourself or someone else? Patient reports no desire to harm self or others. Onset of symptoms was June 23, 2021. 00:31 Method Of Arrival: EMS: [facility] bc5 00:31 Acuity: SYDNIE 3 bc5 00:36 Care prior to arrival: Medication(s) given: ASA, 325 mg. bc5 Triage Assessment: 00:36 General: Appears in no apparent distress. distressed, comfortable, Behavior is calm, bc5 cooperative, appropriate for age. Pain: Complains of pain in chest. Historical: - Allergies: 00:35 No Known Allergies; bc5 - PMHx: 00:35 Congestive heart failure; bc5 - Immunization history:: Adult Immunizations up to date. - Social history:: Smoking status: Patient denies any tobacco usage or history of. - Family history:: not pertinent. Screenin:37 Abuse screen: Denies threats or abuse. Denies injuries from another. Nutritional bc5 screening: No deficits noted. Tuberculosis screening: No symptoms or risk factors identified. Fall Risk No fall in past 12 months (0 pts). No secondary diagnosis (0 pts). IV access (20 points). Ambulatory Aid- Crutches/Cane/Walker (15 pts). Gait- Normal/Bed Rest/Wheelchair (0 pts) Mental Status- Oriented to own ability (0 pts). Total Johnston Fall Scale indicates Low Risk Score (25-44 pts). Side Rails Up X 2 Placed close to Nursing Station Frequent Obs/Assesments occuring As available Patient and Family Educated on Fall Prevention Program and strategies. Assessment: 00:36 Neuro: No deficits noted. Cardiovascular: Reports chest pain. Respiratory: No deficits bc5 noted. GI: No deficits noted. : No deficits noted. EENT: No deficits noted. Derm: No deficits noted. Musculoskeletal: No deficits noted. 01:40 Reassessment: Pt states "I want to go home" "I just feel like I need to be home" Pt bc5 refused medication "I don't need any medication" when asked if he will wait for Dr to come speak to him Pt agreed. Dr. Sanderson aware. 03:13 Reassessment: Pt agreed to stay after told him she will not come pick him up bc5 tonight. Vital Signs: 00:31 BP 157 / 86; Pulse 69; Resp 15; Temp 97.8(O); Pulse Ox 100% on R/A; Weight 63.5 kg (R); bc5 Height 5 ft. 7 in. (170.18 cm) (R); Pain 5/10; 03:06 BP 147 / 75; Pulse 60; Resp 16; Pulse Ox 100% on R/A; Pain 3/10; bc5 05:17 BP 104 / 74; Pulse 60; Resp 15; Temp 98.5(O); Pulse Ox 95% on R/A; Pain 0/10; bc5 00:31 Body Mass Index 21.93 (63.50 kg, 170.18 cm) bc5 ED Course: 00:22 Patient arrived in ED. tt3 00:31 Kanika Matthews, RN is Primary Nurse. bc5 00:35 Triage completed. bc5 00:36 Arm band placed on right wrist. bc5 00:50 Terry Sanderson MD is Attending Physician. lubna 01:16 XRAY Chest (1 view) In Process Unspecified. EDMS 01:18 Parveen Crabtree MD is Hospitalizing Provider. lubna 01:38 No provider procedures requiring assistance completed. Inserted saline lock: 18 gauge bc5 in left antecubital area, using aseptic technique. 01:44 Patient has correct armband on for positive identification. Bed in low position. Call bc5 light in reach. Side rails up X2. Administered Medications: 01:07 Not Given (Pt recieved max dose by EMS DRUG SAFETY PHYSICIAN): Aspirin 81 mg PO once bc5 02:39 Not Given (Patient Refused): Nitro-Bid (nitroglycerin) Ointment 2 % 1 inches bc5 Transdermal once 02:50 Drug: Tylenol 650 mg Route: PO; bc5 03:05 Follow up: Response: Pain is decreased bc5 02:51 Drug: Thiamine 100 mg Route: IV; Rate: per protocol; Site: left forearm; bc5 03:05 Follow up: IV Status: Completed infusion; IV Intake: 10ml bc5 02:51 Drug: Lasix (furosemide) 60 mg Route: IVP; Site: left forearm; bc5 03:05 Follow up: Urine output 375 ml bc5 03:05 Drug: Magnesium Sulfate 1 grams Route: IVPB; Infused Over: 1 hrs; Site: left bc5 antecubital; 04:26 Follow up: IV Status: Completed infusion bc5 Intake: 03:05 IV: 10ml; Total: 10ml. bc5 Output: 03:05 Urine: 375ml; Total: 375ml. bc5 Outcome: 01:26 Decision to Hospitalize by Provider. lubna 05:59 Patient left the ED. bc5 Signatures: Dispatcher [employer] EDMS Terry Sanderson MD MD cha Trim, [place] tt3 Kanika Matthews RN RN bc5
--- NOTE | 2021-06-23 01:27 | EDPHYS ---
Physician Documentation [facility] Name: Jimbo Cat Age: 80 yrs Sex: Male : 1940 Arrival Date: 06/23/2021 Time: 00:22 Bed 17 Private MD: ED Physician Terry Sanderson HPI: 06/23 01:03 This 80 yrs old Male presents to ER via EMS with complaints of CHEST PAIN. [facility] 01:03 The patient or guardian reports chest pain that is located primarily in the anterior lubna chest wall, bilaterally. Onset: just prior to arrival. The pain does not radiate. Associated signs and symptoms: Pertinent positives: shortness of breath. The chest pain is described as a heaviness. Duration: The patient or guardian reports multiple episodes, that have now resolved. Modifying factors: The symptoms are alleviated by nothing. the symptoms are aggravated by nothing. Severity of pain: At its worst the pain was mild in the emergency department the pain is unchanged. The patient has not experienced similar symptoms in the past. Historical: - Allergies: 00:35 No Known Allergies; bc5 - PMHx: 00:35 Congestive heart failure; bc5 - Immunization history:: Adult Immunizations up to date. - Social history:: Smoking status: Patient denies any tobacco usage or history of. - Family history:: not pertinent. ROS: 01:03 Constitutional: Negative for fever, chills, and weight loss, Eyes: Negative for injury, lubna pain, redness, and discharge, ENT: Negative for injury, pain, and discharge, Neck: Negative for injury, pain, and swelling, Abdomen/GI: Negative for abdominal pain, nausea, vomiting, diarrhea, and constipation, Back: Negative for injury and pain, : Negative for injury, bleeding, discharge, and swelling, MS/Extremity: Negative for injury and deformity, Skin: Negative for injury, rash, and discoloration, Neuro: Negative for headache, weakness, numbness, tingling, and seizure, Psych: Negative for depression, anxiety, suicide ideation, homicidal ideation, and hallucinations, Allergy/Immunology: Negative for hives, rash, and allergies, Endocrine: Negative for neck swelling, polydipsia, polyuria, polyphagia, and marked weight changes, Hematologic/Lymphatic: Negative for swollen nodes, abnormal bleeding, and unusual bruising. 01:03 Cardiovascular: Positive for chest pain, of the chest. 01:03 Respiratory: Positive for cough, shortness of breath, at rest. Exam: 01:03 Constitutional: This is a well developed, well nourished patient who is awake, alert, lubna and in no acute distress. Head/Face: Normocephalic, atraumatic. Eyes: Pupils equal round and reactive to light, extra-ocular motions intact. Lids and lashes normal. Conjunctiva and sclera are non-icteric and not injected. Cornea within normal limits. Periorbital areas with no swelling, redness, or edema. ENT: Nares patent. No nasal discharge, no septal abnormalities noted. Tympanic membranes are normal and external auditory canals are clear. Oropharynx with no redness, swelling, or masses, exudates, or evidence of obstruction, uvula midline. Mucous membranes moist. Neck: Trachea midline, no thyromegaly or masses palpated, and no cervical lymphadenopathy. Supple, full range of motion without nuchal rigidity, or vertebral point tenderness. No Meningismus. Chest/axilla: Normal chest wall appearance and motion. Nontender with no deformity. No lesions are appreciated. Cardiovascular: Regular rate and rhythm with a normal S1 and S2. No gallops, murmurs, or rubs. Normal PMI, no JVD. No pulse deficits. Respiratory: Lungs have equal breath sounds bilaterally, clear to auscultation and percussion. No rales, rhonchi or wheezes noted. No increased work of breathing, no retractions or nasal flaring. Abdomen/GI: Soft, non-tender, with normal bowel sounds. No distension or tympany. No guarding or rebound. No evidence of tenderness throughout. Back: No spinal tenderness. No costovertebral tenderness. Full range of motion. Male : Normal genitalia with no discharge or lesions. Skin: Warm, dry with normal turgor. Normal color with no rashes, no lesions, and no evidence of cellulitis. MS/ Extremity: Pulses equal, no cyanosis. Neurovascular intact. Full, normal range of motion. Neuro: Awake and alert, GCS 15, oriented to person, place, time, and situation. Cranial nerves II-XII grossly intact. Motor strength 5/5 in all extremities. Sensory grossly intact. Cerebellar exam normal. Normal gait. Psych: Awake, alert, with orientation to person, place and time. Behavior, mood, and affect are within normal limits. 01:03 ECG was reviewed by the Attending Physician. 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 7 in. (170.18 cm) (R); Pain 5/10; 03:06 BP 147 / 75; Pulse 60; Resp 16; Pulse Ox 100% on R/A; Pain 3/10; bc5 05:17 BP 104 / 74; Pulse 60; Resp 15; Temp 98.5(O); Pulse Ox 95% on R/A; Pain 0/10; bc5 00:31 Body Mass Index 21.93 (63.50 kg, 170.18 cm) bc5 MDM: 00:50 Patient medically screened. lubna 01:07 Differential diagnosis: abnormal EKG, acute myocardial infarction, coronary artery lubna disease chest wall pain, hiatal hernia, pancreatitis, pulmonary embolus, stable angina. HEART Score: History: Moderately Suspicious (1), ECG: Non specific repolarization disturbance / LBTB / PM (1), Age: > or = 65 years (2), Risk Factors: > or = 3 Risk factors for atherosclerotic disease (2), [Hypercholesterolemia] [Hypertension] [+ Family HX] Troponin: < or = 1 x Normal Limit (0). The patient was given aspirin in the Emergency Department. The patient's deep vein thrombosis risk score was calculated as follows: Total Score: 0. This patient was found to be at low risk for a deep vein thrombosis by using the Well's assessment criteria. The patient's pulmonary embolism risk score was calculated as follows: Total Score: 0-2 points. This patient was found to be at low risk for a pulmonary embolism by using the Well's assessment criteria. YOGESH Risk Score: 1 - Three or more CAD risk factors, 1- Known CAD, 1 - Recent [<24hrs] Severe Angina, 1 - Elevated Cardiac Markers, TOTAL SCORE = 4. Data reviewed: vital signs, nurses notes, lab test result(s), EKG, radiologic studies, plain films. 06/23 00:43 Order name: Basic Metabolic Panel; Complete Time: 02:12 em 06/23 00:43 Order name: CBC with Diff em 06/23 00:43 Order name: LFT's; Complete Time: 02:12 em 06/23 00:43 Order name: Magnesium; Complete Time: 02:12 em 06/23 00:43 Order name: NT PRO-BNP; Complete Time: 02:12 em 06/23 00:43 Order name: PT-INR; Complete Time: 02:08 em 06/23 00:43 Order name: Troponin (emerg Dept Use Only); Complete Time: 02:12 em 06/23 00:43 Order name: XRAY Chest (1 view) em 06/23 01:51 Order name: Manual Differential EDMS 06/23 04:48 Order name: SARS-COV-2 RT PCR EDMS 06/23 00:43 Order name: EKG; Complete Time: 00:44 em 06/23 00:43 Order name: Cardiac monitoring; Complete Time: 01:06 em 06/23 00:43 Order name: EKG - Nurse/Tech; Complete Time: 01:06 em 06/23 00:43 Order name: IV Saline Lock; Complete Time: 01:37 em 06/23 00:43 Order name: Labs collected and sent; Complete Time: 01:37 em 06/23 00:43 Order name: O2 Per Protocol; Complete Time: 01:06 em 06/23 00:43 Order name: O2 Sat Monitoring; Complete Time: 01:06 em Administered Medications: 01:07 Not Given (Pt recieved max dose by EMS SENIOR SYSTEMS 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): Aspirin 81 mg PO once bc5 02:39 Not Given (Patient Refused): Nitro-Bid (nitroglycerin) Ointment 2 % 1 inches bc5 Transdermal once 02:50 Drug: Tylenol 650 mg Route: PO; bc5 03:05 Follow up: Response: Pain is decreased bc5 02:51 Drug: Thiamine 100 mg Route: IV; Rate: per protocol; Site: left forearm; bc5 03:05 Follow up: IV Status: Completed infusion; IV Intake: 10ml bc5 02:51 Drug: Lasix (furosemide) 60 mg Route: IVP; Site: left forearm; bc5 03:05 Follow up: Urine output 375 ml bc5 03:05 Drug: Magnesium Sulfate 1 grams Route: IVPB; Infused Over: 1 hrs; Site: left bc5 antecubital; 04:26 Follow up: IV Status: Completed infusion bc5 Disposition Summary: 06/23/21 01:26 Hospitalization Ordered Hospitalization Status: Observation lubna Provider: Parveen Crabtree cha Location: Telemetry/MedSurg (Inpatient) lubna Condition: Stable lubna Problem: new lubna Symptoms: have improved lubna Bed/Room Type: Standard lubna Room Assignment: 218(06/23/21 05:07) tl1 Diagnosis - Cardiomegaly lubna - Systolic (congestive) heart failure lubna - Unspecified combined systolic (congestive) and diastolic (congestive) heart failure lubna - Hypo-osmolality and hyponatremia lubna - Hypomagnesemia lubna - Anemia, unspecified lubna Forms: - Medication Reconciliation Form lubna - SBAR form lubna Signatures: Dispatcher [employer] EDMS Terry Sanderson MD MD cha Munoz, Edgar, RN Liz Mckay RN RN tl1 Kanika Matthews RN RN bc5 Corrections: (The following items were deleted from the chart) 03:34 01:01 CORONAVIRUS+MR.LAB.BRZ ordered. [facility] EDMS 05:07 01:26 lubna tl1
[2021-06-23] MEDS ORDERED: THIAMINE 200 MG/2 ML INJ ONE (01:45)
[2021-06-23] MEDS ORDERED: ACETAMINOPHEN 325 MG TABLET ONE (01:45)
[2021-06-23] MEDS ORDERED: NITROGLYCERIN 1 GM PKT TD ONE (01:45)
[2021-06-23] MEDS ORDERED: FUROSEMIDE 40 MG/4 ML VIAL ONE (01:45)
[2021-06-23] MEDS ORDERED: FUROSEMIDE 20 MG/ 2ML VIAL ONE (01:45)
[2021-06-23 01:47] LABS: Absolute Lymphocytes (CBC) 0.4 K/uL (0.7-4.9); Basophils % 1.8 % (0-1.3); Hematocrit 26.9 % (39.6-49.0); Lymphocytes % 9.8 % (15.3-44.8); RBC Red Blood Cell Count 2.98 M/uL (4.33-5.43)
[2021-06-23 01:52] LABS: Protime INR 1.04
[2021-06-23 02:07] LABS: Albumin 3.5 g/dL (3.4-5.0); Bilirubin Direct 0.2 mg/dL (0-0.2); Bilirubin Total 0.5 mg/dL (0.2-1.0); Magnesium 1.7 mg/dL (1.8-2.4); Potassium 3.6 mmol/L (3.5-5.1); Protein, Total 6.7 g/dL (6.4-8.2); Troponin (Emerg Dept Use Only) 0.08 ng/mL (0.0-0.045)
[2021-06-23 03:12] LABS: Blood Morphology Comment NOT SEEN (NOT SEEN); Platelet Estimate ADEQ
[2021-06-23] MEDS ORDERED: Magnesium Sulfate 2gm IVPB 2 G/50 ML BAG IV ONE (03:16)
--- NOTE | 2021-06-23 03:39 | P.HP ---
Certification for Inpatient Patient admitted to: Observation With expected LOS: <2 Midnights Patient will require the following post-hospital care: None Practitioner: I am a practitioner with admitting privileges, knowledge of patient current condition, hospital course, and medical plan of care. Services: Services provided to patient in accordance with Admission requirements found in Title 42 Section 412.3 of the Code of Federal Regulations <Fadi Garcia Lauryn - Last Filed: 06/23/21 03:33> Patient History Date of Service: 06/23/21 Reason for admission: chest pain History of Present Illness: Mr. Cat is a 80 yo M with CHF, COPD, HTN, chronic hyponatremia, CKD3 who presents with chest pain and cough. Says chest pain began 3 hoursagowhile he was in bed. Describes pain as sharp, with no radiaiton, and is now resolved. Plt 150, Na 125, Cl 88, BUN 31, GFR 54, troponin 0.08, BNP 6752. Ejection fracture 03/2021 was estimated 30-35%. Patient is frequently admitted for CHF and COPD exacerbations. He is requesting to leave, but told him that he has to stay. 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 - Family History Father -: Heart disease Mother -: Heart disease, Hypertension, Diabetes, Cancer - Social History Smoking Status: Unknown if ever smoked Alcohol use: No CD- Drugs: No Caffeine use: No Place of Residence: Home <Fadi Garcia - Last Filed: 06/23/21 03:33> Date of Service: 06/23/21 <Parveen Crabtree - Last Filed: 07/06/21 04:12> Allergies No Known Allergies Allergy (Verified 03/23/21 04:35) Home Medications: Primidone 250 mg PO QID 03/23/21 Sacubitril/Valsartan [Entresto 49 mg-51 mg Tablet] 1 tab PO BID #60 tab 03/23/21 Cholecalciferol (Vitamin D3) [Vitamin D3] 10,000 unit PO DAILY #30 capsule 04/01/21 Metoprolol Succinate [Toprol Xl*] 25 mg PO [id number] #30 tab 04/01/21 Albuterol Inhaler [Ventolin Inhaler*] 2 puff IH Q6H PRN #1 hfa.aer.ad 04/10/21 Arformoterol Tartrate [Brovana] 15 mcg NEB BIDRESP #60 vial.neb 04/10/21 predniSONE [Prednisone*] 20 mg PO DAILY #7 tab 04/10/21 Furosemide [Lasix*] 40 mg PO BID 30 Days #60 tab 04/29/21 Albuterol Neb [Proventil 0.083% Neb Soln] 2.5 mg NEB Q6HP PRN #0 amp 06/24/21 Atorvastatin Calcium [Lipitor] 40 mg PO BEDTIME #0 tab 06/24/21 Atorvastatin Calcium [Lipitor] 40 mg PO DAILY #14 tablet 06/24/21 Ipratropium Neb [Atrovent*] 0.5 mg NEB [id number] PRN #0 amp 06/24/21 Metoprolol Succinate [Toprol Xl*] 25 mg PO [id number] #0 tab 06/24/21 Sacubitril/Valsartan [Entresto 49 mg-51 mg Tablet] 1 tab PO BID tab 06/24/21 Review of Systems 10-point ROS is otherwise unremarkable Respiratory: Cough Cardiovascular: Chest Pain <Fadi Garcia - Last Filed: 06/23/21 03:33> Physical Examination - Physical Exam General: Alert, In no apparent distress HEENT: Atraumatic, PERRLA, Mucous membr. moist/pink, EOMI, Sclerae nonicteric Neck: Supple, 2+ carotid pulse no bruit, No LAD, Without JVD or thyroid abnormality Respiratory: Normal air movement, Crackles/rales Cardiovascular: Regular rate/rhythm, Normal S1 S2 Gastrointestinal: Normal bowel sounds, No tenderness Musculoskeletal: No tenderness Integumentary: No rashes Neurological: Normal speech, Normal strength at 5/5 x4 extr, Normal tone, Normal affect Lymphatics: No axilla or inguinal lymphadenopathy - Studies Laboratory Data (last 24 hrs) 10/05/21 01:29: PT 12.0, INR 1.04 06/23/21 01:29: WBC 3.80 L D, Hgb 9.6 L, Hct 26.9 L, Plt Count 150 L 06/23/21 01:29: Sodium 125 L, Potassium 3.6, BUN 31 H D, Creatinine 1.28, Glucose 106, Magnesium 1.7 L D, Total Bilirubin 0.5, AST 20, ALT 27, Alkaline Phosphatase 69 <Fadi Garcia - Last Filed: 06/23/21 03:33> Assessment and Plan - Problems (Diagnosis) (1) Acute on chronic systolic CHF (congestive heart failure) Onset Date: 11/08/17 Status: Acute (2) Chronic atrial fibrillation Status: Chronic (3) Anemia Onset Date: 11/24/17 Status: Chronic (4) CAD (coronary artery disease) Onset Date: 11/24/17 Status: Chronic (5) Chronic kidney disease, stage 3 Status: Chronic (6) Diabetes mellitus, type II Onset Date: 11/24/17 Status: Chronic (7) Hyperlipidemia Status: Chronic (8) Hyponatremia Status: Chronic (9) Presence of combination internal cardiac defibrillator (ICD) and pacemaker Status: Chronic - Plan on telemetry trend troponins, repeat EKG continue IV lasix and PO entresto daily monitor Na levels, consult nephrology if worsening breathing treatments as needed reconcile and continue home medications DVT ppx Discharge Plan: Home Plan to discharge in: 24 Hours - Advance Directives Does patient have a Living Will: No Does patient have a Durable POA for Healthcare: Yes - Code Status/Comfort Care Code Status Assessed: Yes (full code ) Critical Care: No Time Spent Managing Pts Care (In Minutes): 70 <Fadi Garcia - Last Filed: 06/23/21 03:33> Date of Service: 06/23/21 Agree with HPI as mentioned above Vitals: Reviewed Physical exam: Oriented to person place and time Cardiovascular: Regular rate rhythm no murmur Lungs: Clear bilaterally Abdomen: Soft nontender nondistended Extremities no clubbing no cyanosis no edema Assessment: 1. Acute CHF exacerbation 2. Anasarca Plan: - Echocardiogram - Start pt on an ARB - Start patient on a Beta sincere - Cardiology consultation - Aggressive diuresis - Strict I's and O's - Repeat CXR - Daily weights - Education regarding diet and treatment of congestive heart failure <Parveen Crabtree - Last Filed: 07/06/21 04:12>
[2021-06-23 05:06] VITALS: BMI 21.9
[2021-06-23] MEDS ORDERED: MORPHINE 2 MG/ML SYR IV PRN (05:06)
[2021-06-23] MEDS ORDERED: IPRATROPIUM BROM 0.5MG/2.5ML NEB PRN (05:06)
[2021-06-23] MEDS ORDERED: NITROGLYCERIN 0.4 MG/TAB SL PRN (05:06)
[2021-06-23] MEDS ORDERED: ONDANSETRON 4 MG/2 ML VIAL IV PRN (05:06)
[2021-06-23] MEDS ORDERED: ACETAMINOPHEN 500 MG TAB PO PRN (05:06)
[2021-06-23] MEDS ORDERED: ALBUTEROL 2.5 MG/3 ML NEB SOL NEB PRN (05:06)
[2021-06-23] MEDS: METOPROLOL XL 25 MG TAB PO SCH (05:51)
--- NOTE | 2021-06-23 07:17 | RAD REPORT ---
EXAM DESCRIPTION: RAD - Chest Single View - 06/23/2021 1:16 am CLINICAL HISTORY: CHEST PAIN COMPARISON: Chest Single View dated 06/15/2021; Chest Single View dated 04/29/2021; Chest Single View dated 04/07/2021; Chest Single View dated 03/31/2021; Angio Aorta For Dissection dated 06/15/2021 FINDINGS: Lines: Pacemaker/ICD. Lungs: Increased interstitial markings noted bilaterally, but somewhat more prominent at the right misha ng base. Pleural: No significant pleural effusions or pneumothorax. Cardiac: Cardiomegaly. Bones: No acute fractures. Other: IMPRESSION: Edema and/or multifocal pneumonia which is new since 06/15/2021.
[2021-06-23] MEDS: INSULIN -REGULAR HUMAN 50 UNIT/0.5 ML ML SQ SCH ×4 (07:30→21:00)
[2021-06-23] MEDS: FUROSEMIDE 20 MG/ 2ML VIAL IV SCH ×2 (08:03→16:21)
[2021-06-23] MEDS: ASPIRIN EC 81 MG TAB PO SCH (08:03)
[2021-06-23] MEDS: SACUBITRIL/VALSARTAN 49/51 MG TAB PO SCH ×2 (08:04→21:51)
[2021-06-23 11:11] LABS: Albumin 3.2 g/dL (3.4-5.0); Bilirubin Total 0.4 mg/dL (0.2-1.0); Magnesium 1.8 mg/dL (1.8-2.4); Phosphorus 3.1 mg/dL (2.5-4.9); Potassium 3.2 mmol/L (3.5-5.1); Protein, Total 6.4 g/dL (6.4-8.2); Thyroid Stimulating Hormone 3.74 uIU/mL (0.360-3.740); Troponin I 0.07 ng/mL (0.0-0.045)
[2021-06-23] MEDS ORDERED: POTASSIUM CL SA 10 MEQ TAB PO ONE (11:13)
[2021-06-23] MEDS ORDERED: MAGNESIUM SULFATE 1 gm IVPB 1 GM/100 ML BAG IV ONE (11:14)
[2021-06-23] MEDS ORDERED: INFLUENZA VACCINE (for 6+ mo) 0.5 ML DOSE IMVAC ONE (16:00)
--- NOTE | 2021-06-23 18:07 | EKG ---
Test Date: 2021-06-23 Test Time: 00:29:58 Director Social Welfare: TERRANCE MEASUREMENT RESULTS: Intervals: Rate: 60 [place]: QRSD: 212 QT: 618 QTc: 618 [place]: P: IL: QRS: -90 T: 104 INTERPRETIVE STATEMENTS: Ventricular-paced rhythm Abnormal ECG Compared to ECG 06/15/2021 00:54:54 No significant changes Electronically Signed On 06-23-21 18:05:40 CDT by Max Pro
[2021-06-23] MEDS ORDERED: ATORVASTATIN 40 MG TAB PO SCH (21:00)
[2021-06-24 06:28] LABS: Albumin 3.4 g/dL (3.4-5.0); Bilirubin Total 0.5 mg/dL (0.2-1.0); Phosphorus 3.7 mg/dL (2.5-4.9); Potassium 3.9 mmol/L (3.5-5.1); Protein, Total 6.4 g/dL (6.4-8.2)
[2021-06-24] MEDS: METOPROLOL XL 25 MG TAB PO SCH (06:28)
[2021-06-24] MEDS: INSULIN -REGULAR HUMAN 50 UNIT/0.5 ML ML SQ SCH ×2 (07:30→11:30)
[2021-06-24] MEDS: SACUBITRIL/VALSARTAN 49/51 MG TAB PO SCH (08:34)
[2021-06-24] MEDS: FUROSEMIDE 20 MG/ 2ML VIAL IV SCH (08:34)
[2021-06-24] MEDS: ASPIRIN EC 81 MG TAB PO SCH (08:34)
[2021-06-24] MEDS ORDERED: POTASSIUM 25 MEQ EFFERV TAB PO ONE (09:00)
[2021-06-24 10:41] VITALS: O2SAT 95
[2021-06-24 13:03] VITALS: BP 153/76; TEMP 97.1
--- NOTE | 2021-07-06 04:15 | P.DS ---
Discharge Date: 06/24/21 Disposition: DC HOME/HOME HEALTH CARE Discharge Condition: GOOD Reason for Admission: chest pain Brief History of Present Illness: Mr. Cat is a 80 yo M with CHF, COPD, HTN, chronic hyponatremia, CKD3 who presents with chest pain and cough. Says chest pain began 3 hoursagowhile he was in bed. Describes pain as sharp, with no radiaiton, and is now resolved. Plt 150, Na 125, Cl 88, BUN 31, GFR 54, troponin 0.08, BNP 6752. Ejection fracture 03/2021 was estimated 30-35%. Patient is frequently admitted for CHF and COPD exacerbations. He is requesting to leave, but told him that he has to stay. Hospital Course: Patient was given diuretics. Patient anasarca has improved. Patient is clinically doing much better. Respiratory status has improved. At this time patient is stable for discharge. Vital Signs/Physical Exam: Temp Pulse Resp BP Pulse Ox 97.1 F 63 18 153/76 H 91 06/24/21 12:00 06/24/21 12:00 06/24/21 12:00 06/24/21 12:00 06/24/21 12:00 General: Alert, In no apparent distress, Oriented x3 Laboratory Data at Discharge: WBC 3.80 K/uL (4.3-10.9) L D 06/23/21 01:29 Hgb 9.6 g/dL (13.6-17.9) L 06/23/21 01:29 Hct 26.9 % (39.6-49.0) L 06/23/21 01:29 Plt Count 150 K/uL (152-406) L 06/23/21 01:29 PT 12.0 SECONDS (9.5-12.5) 06/23/21 01:29 INR 1.04 06/23/21 01:29 Sodium 128 mmol/L (136-145) L 06/24/21 05:45 Potassium 3.9 mmol/L (3.5-5.1) 06/24/21 05:45 BUN 37 mg/dL (7-18) H 06/24/21 05:45 Creatinine 1.65 mg/dL (0.55-1.3) H 06/24/21 05:45 Glucose 94 mg/dL (74-106) 06/24/21 05:45 Phosphorus 3.7 mg/dL (2.5-4.9) 06/24/21 05:45 Magnesium 2.0 mg/dL (1.8-2.4) 06/24/21 05:45 Total Bilirubin 0.5 mg/dL (0.2-1.0) 06/24/21 05:45 AST 21 U/L (15-37) 06/24/21 05:45 ALT 26 U/L (12-78) 06/24/21 05:45 Alkaline Phosphatase 70 U/L (45-117) 06/24/21 05:45 Troponin I 0.07 ng/mL (0.0-0.045) H 06/23/21 09:57 Troponin I 0.07 ng/mL (0.0-0.045) H 06/23/21 09:57 Triglycerides 50 mg/dL (<150) 06/23/21 09:57 Cholesterol 152 mg/dL (<200) 06/23/21 09:57 HDL Cholesterol 56 mg/dL (40-60) 06/23/21 09:57 Cholesterol/HDL Ratio 2.71 06/23/21 09:57 Home Medications: Primidone 250 mg PO QID 03/23/21 Sacubitril/Valsartan [Entresto 49 mg-51 mg Tablet] 1 tab PO BID #60 tab 03/23/21 Cholecalciferol (Vitamin D3) [Vitamin D3] 10,000 unit PO DAILY #30 capsule 04/01/21 Metoprolol Succinate [Toprol Xl*] 25 mg PO [id number] #30 tab 04/01/21 Albuterol Inhaler [Ventolin Inhaler*] 2 puff IH Q6H PRN #1 hfa.aer.ad 04/10/21 Arformoterol Tartrate [Brovana] 15 mcg NEB BIDRESP #60 vial.neb 04/10/21 predniSONE [Prednisone*] 20 mg PO DAILY #7 tab 04/10/21 Furosemide [Lasix*] 40 mg PO BID 30 Days #60 tab 04/29/21 Albuterol Neb [Proventil 0.083% Neb Soln] 2.5 mg NEB Q6HP PRN #0 amp 06/24/21 Atorvastatin Calcium [Lipitor] 40 mg PO BEDTIME #0 tab 06/24/21 Atorvastatin Calcium [Lipitor] 40 mg PO DAILY #14 tablet 06/24/21 Ipratropium Neb [Atrovent*] 0.5 mg NEB [id number] PRN #0 amp 06/24/21 Metoprolol Succinate [Toprol Xl*] 25 mg PO [id number] #0 tab 06/24/21 Sacubitril/Valsartan [Entresto 49 mg-51 mg Tablet] 1 tab PO BID tab 06/24/21 New Medications: Atorvastatin Calcium [Lipitor] 40 mg PO DAILY #14 tablet Physician Discharge Instructions: -OK TO DC IV AND DC HOME -FOLLOW-UP WITH PCP IN 1-2 WEEKS -FOLLOW-UP WITH CARDIOLOGY IN 1-2 WEEKS -PLEASE MAKE SURE ALL DIAGNOSTIC STUDIES ARE AVAILABLE AND HAVE BEEN REVIEWED WITH PATIENT PRIOR TO DISCHARGE -RETURN TO THE ER IF symptoms worsen -CALL DR. GR AT [phone] IF ANY QUESTIONS REGARDING HOSPITAL STAY -PLEASE CALL THE FLOOR AT [phone] IF ANY MEDICATION OR NURSING QUESTIONS Diet: AHA Activity: Fall precautions Followup: Max Pro MD [ACTIVE - CAN ADMIT] - NONE,NONE [Primary Care Provider] - Time spent managing pt's care (in minutes): 35
== END 2021-06-24 16:09 | disposition home health service (06) | DRG 291 ==
LOC: ER 00:07 → ERHOLD 03:08 → 2ND 05:27
PROVIDERS: ADMIT Hospitalist; ATTEND Hospitalist
DX: I13.0 Hypertensive heart and chronic kidney disease with heart failure and stage 1 through stage 4 chronic kidney disease, or unspecified chronic kidney disease (principal); I50.23 Acute on chronic systolic (congestive) heart failure; E87.1 Hypo-osmolality and hyponatremia; N18.30 Chronic kidney disease, stage 3 unspecified; I25.10 Atherosclerotic heart disease of native coronary artery without angina pectoris; J44.9 Chronic obstructive pulmonary disease, unspecified; E78.5 Hyperlipidemia, unspecified; G20 Parkinson's disease; I48.91 Unspecified atrial fibrillation; D64.9 Anemia, unspecified; Z95.810 Presence of automatic (implantable) cardiac defibrillator; Z86.73 Personal history of transient ischemic attack (TIA), and cerebral infarction without residual deficits; Z20.822 Contact with and (suspected) exposure to COVID-19
CPT/HCPCS: 36415; 71045; 80048; 80053; 80061; 80076; 82947; 83735; 83880; 84100; 84132; 84439; 84443; 84484; 85025; 85610; 93005; 94760; 96365; 96375; 99284; J1940; J3411; J3475; U0003

== ENCOUNTER 2021-07-08 01:21 | Inpatient (IN) | payer OTHER ==
[2021-07-08 03:40] LABS: Protime INR 1.16
[2021-07-08 03:42] LABS: Absolute Lymphocytes (CBC) 0.5 K/uL (0.7-4.9); Basophils % 1.3 % (0-1.3); Hematocrit 25.2 % (39.6-49.0); Lymphocytes % 11.7 % (15.3-44.8); MPV 6.8 fL (7.6-11.3)
[2021-07-08 04:00] LABS: Albumin 3.2 g/dL (3.4-5.0); Bilirubin Direct 0.2 mg/dL (0-0.2); Bilirubin Total 0.5 mg/dL (0.2-1.0); Potassium 3.6 mmol/L (3.5-5.1); Protein, Total 5.9 g/dL (6.4-8.2); Troponin (Emerg Dept Use Only) 0.06 ng/mL (0.0-0.045)
[2021-07-08 04:17] LABS: Magnesium 1.4 mg/dL (1.8-2.4)
[2021-07-08] MEDS ORDERED: FUROSEMIDE 40 MG/4 ML VIAL ONE (05:30)
--- NOTE | 2021-07-08 05:50 | P.HP ---
Certification for Inpatient Patient admitted to: Inpatient With expected LOS: <2 Midnights Patient will require the following post-hospital care: None Practitioner: I am a practitioner with admitting privileges, knowledge of patient current condition, hospital course, and medical plan of care. Services: Services provided to patient in accordance with Admission requirements found in Title 42 Section 412.3 of the Code of Federal Regulations Patient History Date of Service: 07/08/21 Reason for admission: chf exacerbation History of Present Illness: Mr. Cat is a 80 yo M with CHF, COPD, HTN, chronic hyponatremia, CKD3 who presents with chest tightness, SOB and GUERRERO beginning 4-5 hours ago. He reports cough. Denies fever, nausea, vomiting, and wheezing. He is not on home oxygen. Na 126 Cl 90 BUN 33 Cr 1.67 GFR 40 Mg 1.4 Trop 0.06 BNP 7781. Ejection fracture 03/2021 was estimated 30-35%. Allergies No Known Allergies Allergy (Verified 03/23/21 04:35) Home Medications: Primidone 250 mg PO QID 03/23/21 Sacubitril/Valsartan [Entresto 49 mg-51 mg Tablet] 1 tab PO BID #60 tab 03/23/21 Cholecalciferol (Vitamin D3) [Vitamin D3] 10,000 unit PO DAILY #30 capsule 04/01/21 Metoprolol Succinate [Toprol Xl*] 25 mg PO [id number] #30 tab 04/01/21 Albuterol Inhaler [Ventolin Inhaler*] 2 puff IH Q6H PRN #1 hfa.aer.ad 04/10/21 Arformoterol Tartrate [Brovana] 15 mcg NEB BIDRESP #60 vial.neb 04/10/21 predniSONE [Prednisone*] 20 mg PO DAILY #7 tab 04/10/21 Furosemide [Lasix*] 40 mg PO BID 30 Days #60 tab 04/29/21 Albuterol Neb [Proventil 0.083% Neb Soln] 2.5 mg NEB Q6HP PRN #0 amp 06/24/21 Atorvastatin Calcium [Lipitor] 40 mg PO BEDTIME #0 tab 06/24/21 Atorvastatin Calcium [Lipitor] 40 mg PO DAILY #14 tablet 06/24/21 Ipratropium Neb [Atrovent*] 0.5 mg NEB [id number] PRN #0 amp 06/24/21 Metoprolol Succinate [Toprol Xl*] 25 mg PO [id number] #0 tab 06/24/21 Sacubitril/Valsartan [Entresto 49 mg-51 mg Tablet] 1 tab PO BID tab 06/24/21 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 moist/pink, EOMI, Sclerae nonicteric Neck: Supple, 2+ carotid pulse no bruit, No LAD, Without JVD or thyroid abnormality Respiratory: Diminished, Crackles/rales Cardiovascular: Regular rate/rhythm, Normal S1 S2 Gastrointestinal: Normal bowel sounds, No tenderness Musculoskeletal: No tenderness Integumentary: No rashes Neurological: Normal gait, Normal speech, Normal strength at 5/5 x4 extr, Normal tone, Normal affect Lymphatics: No axilla or inguinal lymphadenopathy - Studies Laboratory Data (last 24 hrs) 07/08/21 02:45: PT 13.4 H, INR 1.16 07/08/21 02:45: WBC 3.90 L, Hgb 9.2 L, Hct 25.2 L, Plt Count 167 07/08/21 02:45: Sodium 126 L, Potassium 3.6, BUN 33 H, Creatinine 1.67 H, Glucose 99, Magnesium 1.4 L* D, Total Bilirubin 0.5, AST 13 L, ALT 16, Alkaline Phosphatase 64 Assessment and Plan - Problems (Diagnosis) (1) Acute on chronic systolic CHF (congestive heart failure) Onset Date: 11/08/17 Current Visit: No Status: Acute (2) Hypomagnesemia Current Visit: No Status: Acute (3) Anemia Onset Date: 11/24/17 Current Visit: No Status: Chronic Qualifiers: Anemia type: B12 deficiency Vitamin B12 deficiency anemia type: unspecified B12 deficiency Qualified Code(s): D51.9 - Vitamin B12 deficiency anemia, unspecified (4) CKD (chronic kidney disease) Onset Date: 11/24/17 Current Visit: No Status: Chronic Qualifiers: Chronic kidney disease stage: stage 3 (moderate) Chronic kidney disease stage 3 subtype: stage 3b (GFR 30-44) Qualified Code(s): N18.32 - Chronic kidney disease, stage 3b (5) HTN (hypertension) Onset Date: 11/24/17 Current Visit: No Status: Chronic Qualifiers: (6) Hyperlipidemia Current Visit: No Status: Chronic Qualifiers: (7) Hyponatremia Current Visit: No Status: Chronic - Plan on tele, trend troponins, daily weight, fluid restriction continue IV lasix reconcile and continue home medications breathing treatments as needed magnesium replacement protocol DVT ppx Discharge Plan: Home Plan to discharge in: 24 Hours - Advance Directives Does patient have a Living Will: No Does patient have a Durable POA for Healthcare: No - Code Status/Comfort Care Code Status Assessed: Yes (full code ) Critical Care: No Time Spent Managing Pts Care (In Minutes): 70
--- NOTE | 2021-07-08 05:57 | EDPHYS ---
Physician Documentation [facility] Name: Jimbo Cat Age: 80 yrs Sex: Male : 1940 Arrival Date: 07/08/2021 Time: 01:22 Bed 24 Private MD: ED Physician Cruz Williamson HPI: 07/08 02:11 This 80 yrs old Male presents to ER via Unassigned with complaints of Chest mh7 Pain. 02:11 The patient or guardian reports chest pain that is located primarily in the substernal mh7 area. Onset: last night. The pain does not radiate. Associated signs and symptoms: Pertinent positives: nausea, shortness of breath, Pertinent negatives: abdominal pain, cough, diaphoresis, dizziness, headache, lower extremity pain, lower extremity swelling, lightheadedness, near syncope, palpitations, recent travel, syncope, vomiting. The chest pain is described as Tightness. Duration: The patient or guardian reports multiple episodes, that are intermittent, that wax and wane, with no pattern. Modifying factors: The symptoms are alleviated by nothing. the symptoms are aggravated by nothing. Severity of pain: At its worst the pain was moderate last night, in the emergency department the pain has improved moderately. Historical: - Allergies: 01:56 No Known Allergies; dc2 - PMHx: 01:56 Congestive heart failure; Myocardial infarction; Diabetes mellitus; dc2 - PSHx: 01:56 Appendectomy; dc2 - Immunization history:: Adult Immunizations up to date. - Social history:: Smoking status: Patient/guardian denies using tobacco, the patient reports quitting approximately 20 years ago. - Unable to obtain history due to: Unable to reconcile meds, pt states he can call in the morning to get list. . ROS: 02:11 Constitutional: Negative for fever, chills, and weight loss, Eyes: Negative for injury, mh7 pain, redness, and discharge, ENT: Negative for injury, pain, and discharge, Neck: Negative for injury, pain, and swelling. 02:11 Back: Negative for injury and pain, : Negative for injury, bleeding, discharge, and swelling, MS/Extremity: Negative for injury and deformity, Skin: Negative for injury, rash, and discoloration, Neuro: Negative for headache, weakness, numbness, tingling, and seizure, Psych: Negative for depression, anxiety, suicide ideation, homicidal ideation, and hallucinations, Allergy/Immunology: Negative for hives, rash, and allergies, Endocrine: Negative for neck swelling, polydipsia, polyuria, polyphagia, and marked weight changes, Hematologic/Lymphatic: Negative for swollen nodes, abnormal bleeding, and unusual bruising. Exam: 02:11 Constitutional: This is a well developed, well nourished patient who is awake, alert, mh7 and in no acute distress. Head/Face: Normocephalic, atraumatic. Eyes: Pupils equal round and reactive to light, extra-ocular motions intact. Lids and lashes normal. Conjunctiva and sclera are non-icteric and not injected. Cornea within normal limits. Periorbital areas with no swelling, redness, or edema. Neck: Trachea midline, no thyromegaly or masses palpated, and no cervical lymphadenopathy. Supple, full range of motion without nuchal rigidity, or vertebral point tenderness. No Meningismus. Chest/axilla: Normal chest wall appearance and motion. Nontender with no deformity. No lesions are appreciated. Cardiovascular: Regular rate and rhythm with a normal S1 and S2. No gallops, murmurs, or rubs. Normal PMI, no JVD. No pulse deficits. 02:11 Abdomen/GI: Soft, non-tender, with normal bowel sounds. No distension or tympany. No guarding or rebound. No evidence of tenderness throughout. Back: No spinal tenderness. No costovertebral tenderness. Full range of motion. Skin: Warm, dry with normal turgor. Normal color with no rashes, no lesions, and no evidence of cellulitis. MS/ Extremity: Pulses equal, no cyanosis. Neurovascular intact. Full, normal range of motion. Neuro: Awake and alert, GCS 15, oriented to person, place, time, and situation. Cranial nerves II-XII grossly intact. Motor strength 5/5 in all extremities. Sensory grossly intact. Cerebellar exam normal. Normal gait. Psych: Awake, alert, with orientation to person, place and time. Behavior, mood, and affect are within normal limits. 02:11 Respiratory: the patient does not display signs of respiratory distress, Respirations: normal, Breath sounds: rhonchi, that are mild, are scattered, Respiratory rate: 20 Vital Signs: 01:25 BP 162 / 78; Pulse 63; Resp 20; Temp 97.6; Pulse Ox 100% on R/A; Weight 68.04 kg; dc2 Height 5 ft. 7 in. (170.18 cm); Pain 4/10; 02:30 BP 153 / 85; Pulse 59; Resp 20; Pulse Ox 100% ; Pain 4/10; dc2 03:30 BP 142 / 84; Pulse 59; Resp 18; Temp 97.9(O); Pulse Ox 100% on R/A; Pain 4/10; dc2 04:30 BP 140 / 87; Pulse 60; Resp 17; Pulse Ox 100% on R/A; Pain 3/10; dc2 05:30 BP 165 / 87; Pulse 60; Resp 17; Pulse Ox 100% on R/A; Pain 2/10; dc2 06:30 BP 133 / 77; Pulse 59; Resp 17; Temp 97.8(O); Pulse Ox 100% ; Pain 0/10; dc2 08:52 BP 121 / 72; Pulse 60; Resp 18; Temp 97.9; Pulse Ox 100% ; Pain 0/10; ch5 01:25 Body Mass Index 23.49 (68.04 kg, 170.18 cm) dc2 MDM: 05:53 Differential diagnosis: abnormal EKG, acute myocardial infarction, acute pericarditis, 7 anxiety, coronary artery disease chest wall pain, congestive heart failure costochondritis, myocarditis, pericarditis, pneumonia. HEART Score: History: Moderately Suspicious (1), ECG: Non specific repolarization disturbance / LBTB / PM (1), Age: > or = 65 years (2), Risk Factors: 1 or 2 risk factors (1), [Hypertension] [DM] Troponin: > 1 and < 3 x normal limit (1), Total Score = 6. 05:54 The patient was given aspirin in the Emergency Department. Data reviewed: vital signs, [facility] nurses notes, old medical records, lab test result(s), cardiac enzymes, CBC, electrolytes, EKG, radiologic studies, plain films. Data interpreted: Pulse oximetry: on room air is 100 %. Interpretation: normal. Counseling: I had a detailed discussion with the patient and/or guardian regarding: the historical points, exam findings, and any diagnostic results supporting the discharge/admit diagnosis, the presence of at least one elevated blood pressure reading (>120/80) during this emergency department visit, lab results, radiology results, the need for further work-up and treatment in the hospital. Response to treatment: the patient's symptoms have markedly improved after treatment. 05:56 Patient medically screened. [facility] 07/08 02:06 Order name: Basic Metabolic Panel; Complete Time: 04:35 [facility] 07/08 02:06 Order name: CBC with Diff [facility] 07/08 02:06 Order name: LFT's; Complete Time: 04:35 [facility] 07/08 02:06 Order name: Magnesium; Complete Time: 04:35 [facility] 07/08 02:06 Order name: NT PRO-BNP; Complete Time: 04:35 [facility] 07/08 02:06 Order name: PT-INR; Complete Time: 04:15 [facility] 07/08 02:06 Order name: Troponin (emerg Dept Use Only); Complete Time: 04:35 [facility] 07/08 02:06 Order name: XRAY Chest (1 view) [facility] 07/08 02:06 Order name: EKG; Complete Time: 02:07 [facility] 07/08 03:30 Order name: SARS-COV-2 RT PCR EDNE 07/08 03:44 Order name: Manual Differential EDMS 07/08 02:06 Order name: Cardiac monitoring; Complete Time: 02:09 [facility] 07/08 02:06 Order name: EKG - Nurse/Tech; Complete Time: 02:09 [facility] 07/08 02:06 Order name: IV Saline Lock; Complete Time: 02:10 [facility] 07/08 02:06 Order name: Labs collected and sent; Complete Time: 02:10 [facility] 07/08 02:06 Order name: O2 Per Protocol; Complete Time: 02:10 [facility] 07/08 02:06 Order name: O2 Sat Monitoring; Complete Time: 02:10 [facility] 07/08 02:37 Order name: Labs - recollect needed: everything please; Complete Time: 09:03 em Administered Medications: 05:03 Drug: Lasix (furosemide) 40 mg Route: IVP; Site: right antecubital; dc2 05:48 Follow up: Urine output 600 ml; Response: Other dc2 06:44 Follow up: Response: No adverse reaction dc2 06:01 Not Given (wrong orderr): Aspirin Chewable Tablet 324 mg PO once; 81 mg tablets x 4 7 Disposition Summary: 07/08/21 05:56 Hospitalization Ordered Hospitalization Status: Inpatient Admission [facility] Provider: Parveen Crabtree Natacha Location: Telemetry/MedSurg (Inpatient) [facility] Condition: Stable [facility] Problem: an acute exacerbation [facility] Symptoms: have improved [facility] Bed/Room Type: Standard [facility] Room Assignment: 222(07/08/21 08:38) dw Diagnosis - Acute on chronic combined systolic (congestive) and diastolic (congestive) heart [facility] failure - Chest pain, unspecified [facility] Forms: - Medication Reconciliation Form [facility] - SBAR form [facility] Signatures: Dispatcher [employer] Rocio Painting RN RN dw Munoz, Edgar, RN RN em Holmes, Maurice, MD MD [facility] Alal, SABINE Clinton RN dc2 Corrections: (The following items were deleted from the chart) 03:30 03:07 CORONAVIRUS+MR.LAB.BRZ ordered. [facility] 08:38 05:56 7 dw
--- NOTE | 2021-07-08 05:57 | ER ---
Nurse's Notes [facility] Name: Jimbo Cat Age: 80 yrs Sex: Male : 1940 Arrival Date: 07/08/2021 Time: 01: Bed 24 Private MD: Diagnosis: Acute on chronic combined systolic (congestive) and diastolic (congestive) heart failure;Chest pain, unspecified Presentation: 07/08 01:23 Method Of Arrival: EMS dc2 01:23 Acuity: SYDNIE 3 dc2 01:23 Chief complaint:. Chief complaint: EMS states: Was given 324mg ASA, 0.4 sublingual dc2 nitro and 1inch nitropaste to left chest wall. Coronavirus screen: Vaccine status: Patient reports receiving the 2nd dose of the covid vaccine. Says he was vaccinated at [facility] . Onset of symptoms was July 08, 2021 at 00:00. 01:25 Chief complaint: Patient states: " I woke up with Chest pain and thought I was having a dc2 heart attack" CO pain " all over my chest". 01:25 Activity prior to arrival: sleeping. dc2 01:25 Care prior to arrival: EKG Medication(s) given: ASA, 81 mg, x 4, Normal saline dc2 infusion, 500 mL, Nitroglycerin, 0.4 mg SL x 1, 2 inch nitro paste to left chest wall. 01:30 Ebola Screen: Patient negative for fever greater than or equal to 101.5 degrees dc2 Fahrenheit, and additional compatible Ebola Virus Disease symptoms Patient denies exposure to infectious person. Patient denies travel to an Ebola-affected area in the 21 days before illness onset. No symptoms or risks identified at this time. Initial Sepsis Screen: Does the patient meet any 2 criteria? Does the patient have a suspected source of infection? No. Patient's initial sepsis screen is negative. Risk Assessment: Do you want to hurt yourself or someone else? Patient reports no desire to harm self or others. Triage Assessment: 01:25 General: Appears in no apparent distress. comfortable, slender, well groomed, Behavior dc2 is calm, cooperative. Pain: Complains of pain in across my whole chest. 01:25 EENT: No deficits noted. No signs and/or symptoms were reported regarding the EENT dc2 system. Neuro: No deficits noted. Denies blurred vision headache. Cardiovascular: Reports chest pain, Cardiovascular: Capillary refill is brisk Patient's skin is warm and dry. Bilateral 1+ swelling noted. Respiratory: Reports shortness of breath since Since waking up. Pt is 100% on room air. GI: No deficits noted. No signs and/or symptoms were reported involving the gastrointestinal system. Abdomen is non-distended. : No signs and/or symptoms were reported regarding the genitourinary system. Derm: No deficits noted. Skin is thin, with poor turgor. Musculoskeletal: No signs and/or symptoms reported regarding the musculoskeletal system. Historical: - Allergies: 01:56 No Known Allergies; dc2 - PMHx: :56 Congestive heart failure; Myocardial infarction; Diabetes mellitus; dc2 - PSHx: :56 Appendectomy; dc2 - Immunization history:: Adult Immunizations up to date. - Social history:: Smoking status: Patient/guardian denies using tobacco, the patient reports quitting approximately 20 years ago. - Unable to obtain history due to: Unable to reconcile meds, pt states he can call in the morning to get list. . Screenin:30 Abuse screen: Denies threats or abuse. Denies injuries from another. Nutritional dc2 screening: No deficits noted. Tuberculosis screening: No symptoms or risk factors identified. Never had TB. Fall Risk None identified. No fall in past 12 months (0 pts). Secondary diagnosis (15 points) IV access (20 points). Ambulatory Aid- Crutches/Cane/Walker (15 pts). Gait- Weak (10 pts.). Mental Status- Oriented to own ability (0 pts). Total Johnston Fall Scale indicates High Risk Score (45 or more points). Fall prevention measures have been instituted. Side Rails Up X 2 Frequent Obs/Assessments Occuring. Assessment: 01:30 General: Appears in no apparent distress. comfortable, slender, well groomed, Behavior dc2 is calm, cooperative. Pain: Complains of pain in across chest / midsternal pain Pain does not radiate. Pain at worst was 9 out of 10 on a pain scale. Quality of pain is described as dull, pressure, Pain began 3 hours ago. Is continuous, Alleviated by nothing. 01:30 Neuro: No deficits noted. Cardiovascular: Capillary refill is brisk Patient's skin is dc2 warm and dry. slight edema to bilateral feet/ lower legs. Respiratory: Reports shortness of breath at rest Airway is patent Respiratory effort is even, unlabored, Respiratory pattern is regular, Breath sounds with crackles bilaterally. in scattered throughout Onset: The symptoms/episode began/occurred this morning, the patient has mild shortness of breath. GI: No deficits noted. No signs and/or symptoms were reported involving the gastrointestinal system. Abdomen is non-distended. GI: Bowel sounds present X 4 quads. : No signs and/or symptoms were reported regarding the genitourinary system. Derm: Skin is intact, is fragile, is thin, Skin is Skin is pink, warm \\T\\ dry. 06:48 Reassessment: Pt informed that Covid was negative and now just waiting on room dc2 assignment. Pt voices understanding. In nad. Vital Signs: 01:25 BP 162 / 78; Pulse 63; Resp 20; Temp 97.6; Pulse Ox 100% on R/A; Weight 68.04 kg; dc2 Height 5 ft. 7 in. (170.18 cm); Pain 4/10; 02:30 BP 153 / 85; Pulse 59; Resp 20; Pulse Ox 100% ; Pain 4/10; dc2 03:30 BP 142 / 84; Pulse 59; Resp 18; Temp 97.9(O); Pulse Ox 100% on R/A; Pain 4/10; dc2 04:30 BP 140 / 87; Pulse 60; Resp 17; Pulse Ox 100% on R/A; Pain 3/10; dc2 05:30 BP 165 / 87; Pulse 60; Resp 17; Pulse Ox 100% on R/A; Pain 2/10; dc2 06:30 BP 133 / 77; Pulse 59; Resp 17; Temp 97.8(O); Pulse Ox 100% ; Pain 0/10; dc2 08:52 BP 121 / 72; Pulse 60; Resp 18; Temp 97.9; Pulse Ox 100% ; Pain 0/10; ch5 01:25 Body Mass Index 23.49 (68.04 kg, 170.18 cm) dc2 Vitals: 02:30 Cardiac Rhythm Assessment Paced. dc2 03:30 Cardiac Rhythm Assessment Paced. dc2 05:30 Cardiac Rhythm Assessment Paced. dc2 ED Course: 01:22 Patient arrived in ED. bp1 01:23 Arm band placed on right wrist. dc2 01:25 tile installer on. Pulse ox on. NIBP on. dc2 01:25 Patient has correct armband on for positive identification. Fall risk band placed. dc2 Placed in gown. Bed in low position. Call light in reach. Side rails up X 1. 01:28 EKG done, by ED staff, reviewed by Cruz Williamson MD. dc2 01:28 Maintain EMS IV. IV Changed dressing on Flushed Converted IV to saline lock on right dc2 antecubital area. 01:35 Mary Beth Gold RN is Primary Nurse. dc2 01:46 Cruz Williamson MD is Attending Physician. mh7 02:10 Basic Metabolic Panel Sent. dc2 02:10 CBC with Diff Sent. dc2 02:10 LFT's Sent. dc2 02:10 Magnesium Sent. dc2 02:10 NT PRO-BNP Sent. dc2 02:10 PT-INR Sent. dc2 02:10 Troponin (emerg Dept Use Only) Sent. dc2 02:17 Triage completed. dc2 02:18 No provider procedures requiring assistance completed. dc2 02:18 X-ray(s) taken. dc2 02:21 XRAY Chest (1 view) Sent. dc2 02:25 XRAY Chest (1 view) In Process Unspecified. EDMS 02:30 tile installer on. Pulse ox on. NIBP on. dc2 02:51 Fall risk band placed. Bed in low position. Call light in reach. Side rails up X 1. dc2 04:30 Bed in low position. Call light in reach. Side rails up X 1. Warm blanket given. dc2 05:30 Patient requests food. Patient requests liquids. Pt given diet richie and turkey dc2 sandwich. 05:30 Bed in low position. Call light in reach. Side rails up X 1. tile installer on. Pulse dc2 ox on. NIBP on. 05:40 Maintain EMS IV. Flushed Converted IV to saline lock on right Wrist . Patient maintains dc2 SpO2 saturation greater than 95% on room air. 05:55 Parveen Crabtree MD is Hospitalizing Provider. 7 06:00 Admitting physician to see patient. dc2 07:02 Report given to Keegan, RN. dc2 08:35 Assisted with dressing. Cleaned of incontinence. mb4 Administered Medications: 05:03 Drug: Lasix (furosemide) 40 mg Route: IVP; Site: right antecubital; dc2 05:48 Follow up: Urine output 600 ml; Response: Other dc2 06:44 Follow up: Response: No adverse reaction dc2 06:01 Not Given (wrong orderr): Aspirin Chewable Tablet 324 mg PO once; 81 mg tablets x 4 7 Output: 03:30 Urine: 300ml (Voided); Total: 300ml. dc2 05:48 Urine: 600ml; Total: 900ml. dc2 Outcome: 05:41 Condition: stable dc2 05:56 Decision to Hospitalize by Provider. 7 09:50 Patient left the ED. [facility] Signatures: Dispatcher [employer] EDMS Shirin Holly mb4 Dolores Santos Maurice, MD MD 7 Abner Vega RN RN 5 Mary Beth Gold RN RN hi2
[2021-07-08 06:35] LABS: Blood Morphology Comment NOT SEEN (NOT SEEN); Platelet Estimate ADEQ
--- NOTE | 2021-07-08 07:18 | RAD REPORT ---
EXAM DESCRIPTION: Daniel Single View07/08/2021 2:25 am CLINICAL HISTORY: Chest pain COMPARISON: June 23, 2021 FINDINGS: Bilateral pulmonary opacities appear mostly result. The heart is moderately enlarged. Pacemaker leads are in place. IMPRESSION: Bilateral pulmonary opacities have mostly resolved
[2021-07-08] MEDS ORDERED: ONDANSETRON 4 MG/2 ML VIAL IV PRN (09:52)
[2021-07-08] MEDS ORDERED: METHYLPREDNISOLONE 125 MG INJ IV ONE (09:52)
[2021-07-08] MEDS ORDERED: BENZONATATE 100 MG CAP PO PRN (09:52)
[2021-07-08] MEDS ORDERED: ALBUTEROL 2.5 MG/3 ML NEB SOL NEB PRN (09:52)
[2021-07-08] MEDS ORDERED: ACETAMINOPHEN 500 MG TAB PO PRN (09:52)
[2021-07-08] MEDS ORDERED: MAGNESIUM SULFATE 1 gm IVPB 1 GM/100 ML BAG IV ONE (09:52)
[2021-07-08] MEDS ORDERED: IPRATROPIUM BROM 0.5MG/2.5ML NEB PRN (09:52)
[2021-07-08 11:08] LABS: Troponin I 0.06 ng/mL (0.0-0.045)
--- NOTE | 2021-07-08 11:14 | RAD REPORT ---
EXAM DESCRIPTION: CT - Head Brain Wo Cont - 07/08/2021 10:38 am CLINICAL HISTORY: Numbness COMPARISON: March 2021 TECHNIQUE: Computed axial tomography of the head was obtained. IV contrast was not requested. All CT scans are performed using dose optimization technique as appropriate and may include automated exposure control or mA/KV adjustment according to patient size. FINDINGS: An intracranial bleed is not seen . The ventricles are normal in caliber. No extra-axial fluid collection is noted. Coarse left vertebral artery calcification. Fluid within the sinuses/ mastoids is not seen. IMPRESSION: No acute intracranial abnormality is seen. If patient's symptoms persist MRI of the bra in would be recommended.
[2021-07-08 11:24] VITALS: BMI 23.5
[2021-07-08] MEDS: SACUBITRIL/VALSARTAN 49/51 MG TAB PO SCH ×2 (11:58→21:12)
[2021-07-08] MEDS ORDERED: INFLUENZA VACCINE (for 6+ mo) 0.5 ML DOSE IMVAC ONE (12:00)
[2021-07-08] MEDS ORDERED: POTASSIUM 25 MEQ EFFERV TAB PO ONE (12:05)
[2021-07-08] MEDS: FUROSEMIDE 40 MG/4 ML VIAL IV SCH (16:39)
[2021-07-08] MEDS ORDERED: ATORVASTATIN 40 MG TAB PO SCH (21:00)
[2021-07-08] MEDS ORDERED: MELATONIN 5 MG TABLET PO PRN (23:10)
[2021-07-09 06:10] LABS: Absolute Lymphocytes (CBC) 0.6 K/uL (0.7-4.9); Basophils % 0.7 % (0-1.3); Lymphocytes % 12.5 % (15.3-44.8); MPV 6.9 fL (7.6-11.3); RBC Red Blood Cell Count 3.69 M/uL (4.33-5.43)
[2021-07-09 06:25] LABS: Bilirubin Total 0.7 mg/dL (0.2-1.0); Phosphorus 3.1 mg/dL (2.5-4.9); Potassium 3.8 mmol/L (3.5-5.1); Protein, Total 7.4 g/dL (6.4-8.2)
[2021-07-09 06:26] LABS: Albumin 3.7 g/dL (3.4-5.0); Magnesium 1.8 mg/dL (1.8-2.4)
[2021-07-09 06:30] LABS: Thyroid Stimulating Hormone 5.65 uIU/mL (0.360-3.740)
[2021-07-09] MEDS: SACUBITRIL/VALSARTAN 49/51 MG TAB PO SCH (08:26)
[2021-07-09] MEDS: FUROSEMIDE 40 MG/4 ML VIAL IV SCH ×2 (08:26→16:29)
[2021-07-09 08:43] VITALS: O2SAT 97
[2021-07-09] MEDS ORDERED: POTASSIUM 25 MEQ EFFERV TAB PO ONE (09:00)
[2021-07-09 16:29] VITALS: BP 161/88
[2021-07-09 16:49] VITALS: TEMP 97.3
== END 2021-07-09 17:30 | disposition home health service (06) | DRG 291 ==
LOC: ER 01:21 → ERHOLD 05:48 → 2ND 09:37
PROVIDERS: ADMIT Hospitalist; ATTEND Hospitalist
DX: I13.0 Hypertensive heart and chronic kidney disease with heart failure and stage 1 through stage 4 chronic kidney disease, or unspecified chronic kidney disease (principal); I50.23 Acute on chronic systolic (congestive) heart failure; E87.1 Hypo-osmolality and hyponatremia; N18.32 Chronic kidney disease, stage 3b; E11.22 Type 2 diabetes mellitus with diabetic chronic kidney disease; I25.10 Atherosclerotic heart disease of native coronary artery without angina pectoris; E78.5 Hyperlipidemia, unspecified; G20 Parkinson's disease; D51.9 Vitamin B12 deficiency anemia, unspecified; J44.9 Chronic obstructive pulmonary disease, unspecified; I25.2 Old myocardial infarction; Z87.891 Personal history of nicotine dependence; Z90.49 Acquired absence of other specified parts of digestive tract; Z79.52 Long term (current) use of systemic steroids; Z79.899 Other long term (current) drug therapy; Z86.73 Personal history of transient ischemic attack (TIA), and cerebral infarction without residual deficits; Z85.22 Personal history of malignant neoplasm of nasal cavities, middle ear, and accessory sinuses; Z95.810 Presence of automatic (implantable) cardiac defibrillator; Z20.822 Contact with and (suspected) exposure to COVID-19
CPT/HCPCS: 36415; 70450; 71045; 80048; 80053; 80061; 80076; 82607; 82747; 82947; 83735; 83880; 84100; 84439; 84443; 84484; 85025; 85610; 93005; 94760; 96374; 99285; J1940; J2930; J3475; U0003

== ENCOUNTER 2021-11-19 21:58 | Observation (INO) | payer OTHER ==
--- OUTSIDE RECORDS SUMMARY | 2021-11-19 22:06 | XMS REPORT | Continuity of Care Document ---
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 9-14 it y of nellie nellie 00:00: [place] malnutriti malnutriti 00 Me dical on on Branch 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 9-12 ity of kidney kidney 00:00: [place] disease disease 00 Medical Branch Dyspnea Dyspnea Disease Active 2020-0 Univers 9-11 ity of 00:00: [place] 00 Medical Branch Pneumonia Pneumonia Disease Active 2020-0 Uni vers due to due to 05-30 [place]y of infectious infectious [place] organism organism 00 Medica l Branch Elevated Elevated Disease Active Unive rs troponin I troponin I 9-11 it y of level level 00:00: [place] [facility] Acute on Acute on Disease Active Unive rs chronic chronic 9-10 ity of diastolic diastolic 00:00: [place] congestive congestive 00 Me dical heart heart Branch failure failure Chest pain Chest pain Disease Active U nivers 7-07 ity of 00:00: [place] [facility] Obesity Obesity Disease Active Overview: Univ ers 4-17 ICD10 ity of 00:00: Diagnosis Term Medical [employer] Branch Utility 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 U nivers unspecifie unspecifie 7-09 it y of d type d type 00:00: [place] diabetes diabetes 00 Medica l mellitus mellitus 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, ions, uncontroll uncontroll ed(250.52) ed(250.52) HLD HLD Disease Active Overview: Univer s (hyperlipi (hyperlipi 3-09 ICD10 it y of demia) demia) 00:00: Diagnosis Term Medical [employer] Branch Utility Essential Essential Disease Active Uni vers hypertensi hypertensi 3-09 it y of on, benign on, benign [place] 00 [place] 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 U nivers unspecifie unspecifie 5-08 it y of d type d type 00:00: [place] diabetes diabetes Medica l mellitus mellitus 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, not ions, not stated as stated as uncontroll uncontroll ed(250.50) ed(250.50) Allergies, Adverse Reactions, Alerts Allergy Allergy Status Severity Reaction(s) Onset Inactive Treating Comm ents Source Name Type Date Date Clinician No Known DA Active [facility]04 [facility] 00:00: [address] No Known DA Active U [facility] Allergie 05-20 [facility] 00:00: [address] NO KNOWN Drug Active Univers ALLERGIE Class ity of S [facility] Social History Social Habit Start Date Stop Date Quantity Comments Source Tobacco Comment quit 30 years Univer sity of ago [facility] Alcohol Comment 3 drinks (vodka) Uni versity of nightly [facility] Sex Assigned At Universit y of [facility] Branch Exposure to Unable to assess Univers ity of SARS-CoV-2 [facility] (event) Branch Tobacco use and 2020-05-30 2020-05-30 Never used Universit y of exposure 00:00:00 00:00:00 [facility] Alcohol intake 2020-05-30 2020-05-30 Current drinker Unive rsity of 00:00:00 00:00:00 of alcohol [facility] (finding) [place] Smoking Status Start Date Stop Date Source Never smoker [facility] Medications Ordered Filled Start Stop Current Ordering Indication Dosage Frequency Signature Comments Components Source Medication Medication Date Date Medication? Clinician (SIG) Name Name ASPIRIN 81 2020-0 Yes once daily U nivers MG ORAL 9-16 ity of CHEW 22:57: [address] Branch magnesium 2020-0 Yes 400mg Take 400 Uni vers oxide 9-16 mg by ity of (MAG-OX 22:57: mouth [place] 400) 400 mg 45 daily. Medica l tablet Branch Cyanocobala 2020-[address] Unive rs min 9-16 under the ity of (VITAMIN 22:57: tongue. [place] B-12) 2,500 45 Medical mcg Subl Branch CALCIUM 2020-0 Yes Take by Univer s CARBONATE/V 9-16 mouth. ity of ITAMIN D3 22:57: [place] (VITAMIN 45 Medical D-3 ORAL) [place] MULTIVITAMI 2019-0 Yes Take by Un audra N 9-16 mouth. ity of W-MINERALS/ 22:57: [place] [id number] Medical (CENTRUM Branch SILVER ORAL) ASPIRIN 81 2020-0 Yes once daily U nivers MG ORAL 9-16 ity of CHEW 22:57: [address] Branch magnesium 2020-0 Yes 400mg Take 400 Uni vers oxide 9-16 mg by ity of (MAG-OX 22:57: mouth [place] 400) 400 mg 45 daily. Medica l tablet Branch Cyanocobala 2020-[address] Unive rs min 9-16 under the ity of (VITAMIN 22:57: tongue. [place] B-12) 2,500 45 Medical mcg Subl Branch CALCIUM 2020-0 Yes Take by Univer s CARBONATE/V 9-16 mouth. ity of ITAMIN D3 22:57: [place] (VITAMIN 45 Medical D-3 ORAL) Branch MULTIVITAMI 2020-0 Yes Take by Un audra N 9-16 mouth. ity of W-MINERALS/ 22:57: [place] LUTEIN 45 Medical (CENTRUM Branch SILVER ORAL) primidone 2020-0 2020- No 50mg Take 50 mg U nivers (MYSOLINE) 06-04 by mouth ity of 50 mg 21:06: 00:00 every 12 [place] tablet 25 :00 (twelve) Medical hours. Branch FERROUS 2020-0 2020- No 65mg Take 65 mg Uni vers FUMARATE 06-04 by mouth ity of (IRON ORAL) 21:06: 00:00 daily. Abilio as 25 :00 Medical Branch amlodipine- 2020-0 2020- No 1{tbl} Take 1 U nivers valsartan 06-04 tablet by ity of (EXFORGE) 21:06: 00:00 mouth [place] 10-320 mg 25 :00 daily. Medical per tablet Branch atorvastati 2020-0 Yes [id number] 20mg Take 1 Univers n 20 mg 9-16 tablet by ity of tablet 00:00: mouth at [place] 00 bedtime. Medical Branch primidone 2020-0 Yes [id number] 50mg Take 1 U nivers 50 mg 9-16 tablet by ity of tablet 00:00: mouth [place] 00 every 12 Medical (twelve) Branch hours. metoprolol 2020-0 Yes [id number] 25mg Take 1 Univers tartrate 25 9-16 tablet by ity of mg tablet 00:00: mouth 2 [place] 00 (two) Medical times Branch daily. sacubitriL- 2020-0 Yes [id number] 1{tbl} Take 1 Univers valsartan 9-16 tablet by ity o f 97-103 mg 00:00: mouth 2 [place] tablet 00 (two) Medical times Branch daily. levoFLOXaci 2020-0 Yes [id number] 500mg Take 1 Univers n 500 mg 9-16 tablet by ity of tablet 00:00: mouth [place] 00 every 24 Medical (twenty-fo Branch ur) hours. acidophilus 2020-0 Yes [id number] 1g Take 1 Univers 100 million 9-16 tablet by ity of cell tablet 00:00: mouth 2 [place] as 00 (two) Medical times Branch daily. atorvastati 2020-0 Yes [id number] 20mg Take 1 Univers n 20 mg 9-16 tablet by ity of tablet 00:00: mouth at [place] 00 bedtime. Medical Branch primidone 2020-0 Yes [id number] 50mg Take 1 U nivers 50 mg 9-16 tablet by ity of tablet 00:00: mouth [place] 00 every 12 Medical (twelve) Branch hours. metoprolol 2020-0 Yes [id number] 25mg Take 1 Univers tartrate 25 9-16 tablet by ity of mg tablet 00:00: mouth 2 [place] 00 (two) Medical times Branch daily. sacubitriL- 2020-0 Yes [id number] 1{tbl} Take 1 Univers valsartan 9-16 tablet by ity o f 97-103 mg 00:00: mouth 2 [place] tablet 00 (two) Medical times Branch daily. levoFLOXaci 2020-0 Yes [id number] 500mg Take 1 Univers n 500 mg 9-16 tablet by ity of tablet 00:00: mouth [place] 00 every 24 Medical (twenty-fo Branch ur) hours. acidophilus 2020-0 Yes [id number] 1g Take 1 Univers 100 million 9-16 tablet by ity of cell tablet 00:00: mouth 2 [place] as 00 (two) Medical times Branch daily. KCL 2020-0 2020- No 20meq 20 mEq, Univers (KLOR-CON 06-03 Oral, ONCE ity of M20) tablet 02:30: 01:54 NOW, 1 [place] as 20 mEq 00 :00 dose, [facility] 06/02/20 at Branch 2130, Routine levoFLOXaci 2020-0 Yes 750mg 750 mg, Un audra n 9-14 Oral, ity of (LEVAQUIN) 16:00: Q48H, [place] tablet 750 00 First dose Med ical mg on [facility] 06/02/20 at 1100, Until Discontinu ed, LICO
Re ason for Anti-Infec tive: Empiric Therapy for Suspected Infection< br>Empiric Therapy Site: Respirator y
Durat ion of therapy: 72 hours Polyethylen 2020-0 2020- No 17g 17 g, Univ ers e Glycol 06-02 Oral, ity of 3350 14:00: 13:59 DAILY, 2 [place] (MIRALAX) 00 :00 doses, Medical powder 17 g First dose Br anch on Tue06/02/20 at 0900, Last dose on Tue06/03/20 at 0900, Routine sennosides 2020-0 Yes 8.6mg 8.6 mg, Uni vers (SENOKOT) 06-02 Oral, BID, ity of tablet 8.6 03:15: First dose [place] mg 00 on [facility] 06/01/20 at Branch 2215, Until Discontinu ed, Routine bisacodyL 2020- No 10mg 10 mg, Unive rs (DULCOLAX) 06-02 Rectal, ity o f suppository 03:15: 01:59 QHS, 3 [place] as 10 mg 00 :00 doses, Medical First dose Branch on [place] 06/01/20 at 2215, Last dose on Tue06/03/20 at 2100, Routine epoetin 2019- 2020- No 4000U 4,000 Univers renetta-epbx 06-01 Units, ity of (RETACRIT) 19:45: 19:59 Subcutaneo [place] injection 00 :00 us, ONCE, Medic al 4,000 Units 1 dose, [facility] 06/01/20 at 1445, Routine
natural resources faculty member approving Restricted medication : AKILAH ANDRE ANGELES furosemide 2020- No 40mg 40 mg, IV U nivers (LASIX) 06-01 Push, ity of injection 14:00: 17:48 DAILY, [place] 40 mg 00 :15 First dose Medical (after Branch last modificati on) on [place] 06/01/20 at 0900, Until Discontinu ed, LICO ferrous 2019- 2020- No 325mg 325 mg, Unive rs sulfate 06-01 Oral, BID ity of tablet 325 13:00: 01:14 MEALS, [place] mg 00 :51 First dose Medical on [place] Branch 06/01/20 at 0800, Until Discontinu ed, Routine haloperidol 2019-0 Yes 5mg 5 mg, Slow Univers lactate 06-01 IV Push, ity of (HALDOL) 01:16: QHSPRN, [place] injection 5 44 Starting Medi [place] mg Sat Branch 05/31/20 at 2016, Until Discontinu ed, Routine, insomnia, psychosis, agitation piperacilli 2019-0 2020- No 2.25g 2.25 g, IV Univers n-tazobacta 06-01 Piggyback, i ty of m (ZOSYN) 00:45: 14:59 Q6H ABX, [place] as 2.25 g/50 00 :52 First dose Medi [place] mL RTU on Sat Branch 05/31/20 at 1945, Until Discontinu ed, 50 mL
Reas on for Anti-Infec tive: Documented Infection< br>Documen moshe Infection Site: Respirator y
Durat ion of Therapy: 10 days KCL 2019- No 40meq 40 mEq, Univers (KLOR-CON 06-01 Oral, ity of M20) tablet 00:45: 01:23 ONCE, 1 [place] 40 mEq 00 :00 dose, Sat Medical 05/31/20 at Branch 1945, Routine magnesium 2019- No 2g 2 g, IV Univ ers sulfate in 06-01 Piggyback, it y of water 2 00:45: 01:23 ONCE, 1 [place] gram/50 mL 00 :00 dose, Sat [facility] mecca (4 %) 05/31/20 at Branch infusion 2 1944, g Routine sodium Yes 125mg 125 mg, IV Univ ers ferric 05-31 Piggyback, ity of gluconate 14:00: DAILY, [place] (FERRLECIT) 00 First dose Me dical 125 mg in on Sat [place] NaCl 0.9% 05/31/20 at (NS) 100 mL 0900, IV Until piggyback Discontinu ed, 100 mL
Facu lty member approving Restricted medication : HELENA KMUAR sulfur 2019- No 5mL 5 mL, Univers hexafluorid 05-30 Intravenou i ty of e microsphr 19:00: 16:30 s, ONCE, 1 [place] (LUMASON) 00 :00 dose, Fri Medic al injection 5 05/30/20 at Br anch mL 1400, Routine
natural resources faculty member approving Restricted medication : VENESSA SHAH vancomycin 2019- No 15mg/kg 1,000 mg Univers (VANCOCIN) 05-30 (rounded ity of 1,000 mg in 17:15: 14:59 from 990 [place] NaCl 0.9% 00 :52 mg = 15 Medical (NS) 250 mL mg/kg ?66 Bra [facility] VIAL-MATE kg), IV IV Piggyback, piggyback Q24H ABX, First dose on Tue05/30/20 at 1215, Until Discontinu ed, 250 mL
Reas on for Anti-Infec tive: Documented Infection< br>Documen moshe Infection Site: Respirator y
Durat ion of Therapy: 10 days docusate 2020-0 Yes 100mg 100 mg, Unive rs (COLACE) -11 Oral, BID, ity o f capsule 100 13:00: First dose [place] mg 00 on Tue Medical 05/30/20 at Branch 0800, Until Discontinu ed, Routine Sliding 2020-0 Yes Subcutaneo Univ ers Scale -11 us, TID ity of Insulin - 13:00: MEALS+HS, [place] as Aspart 00 First dose Medical (NOVOLOG) + on Tue Branch Fsbg 05/30/20 at Testing 0800, Until Discontinu ed, Routine sacubitriL- 2019-0 Yes 1{tbl} 1 tablet, Univers valsartan 05-30 Oral, BID, ity of (ENTRESTO) 13:00: First dose [place] 97-103 mg 00 on Tue Medical tablet 1 05/30/20 at [facility] h tablet 0800, Until Discontinu ed, Routine
natural resources faculty member approving Restricted medication : MEGADC heparin 2019-0 Yes 5000U 5,000 Univers (porcine) 05-30 Units, ity of injection 11:00: Subcutaneo [place] 5,000 Units 00 us, Q8H, Medi [place] First dose Branch on Tue05/30/20 at 0600, Until Discontinu ed, Routine furosemide 2020- No 40mg 40 mg, IV U nivers (LASIX) 05-30 Push, Q8H, ity o f injection 11:00: 14:40 First dose [place] 40 mg 00 :52 (after Medical last Branch reorder) on Tue05/30/20 at 0600, Until Discontinu ed, LICO levoFLOXaci 2019-0 2020- No 750mg 750 mg, IV Univers n in D5W 05-30 Piggyback, ity of (LEVAQUIN) 07:00: 15:03 Q24H ABX, [place] 750 mg/150 00 :19 First dose Med ical mL on Tue Branch Piggyback 05/30/20 at 750 mg 0200, Until Discontinu ed, 150 mL
R joseline for Anti-Infec tive: Documented Infection< br>Documen moshe Infection Site: Respirator y
Durat ion of Therapy: 10 days ascorbic 2020-0 Yes 500mg 500 mg, Unive rs acid 9-11 Oral, TID, ity of (vitamin C) 06:15: First dose [place] (VITAMIN C) 00 on Tue Medica l tablet 500 05/30/20 at [facility] mg 0115, Until Discontinu ed, Routine cholecalcif 2020-0 Yes 1000U 1,000 Univ ers shelley 11 Units, ity of (vitamin 06:15: Oral, BID, [place] as D3) tablet 00 First dose Med ical 1,000 Units on Tue Branch 05/30/20 at 0115, Until Discontinu ed, Routine zinc 2020-0 Yes 220mg 220 mg, Univers sulfate 05-30 Oral, BID, ity of (ORAZINC) 06:15: First dose [place] capsule 220 00 on Tue Medica l mg 05/30/20 at Branch 0115, Until Discontinu ed, Routine acetaminoph 2020-0 Yes 650mg 650 mg, Un audra en 05-30 Oral, ity of (TYLENOL) 06:01: Q6HPRN, [place] tablet 650 34 Starting Medic al mg [facility] 05/30/20 at 0101, Until Discontinu ed, Routine, Temp > 38.5 C ondansetron 2020-0 Yes 4mg 4 mg, Slow Univers (ZOFRAN 05-30 IV Push, ity of (PF)) 06:01: Q6HPRN, [place] injection 4 16 Starting Medi [place] mg Tue [place] 05/30/20 at 0101, Until Discontinu ed, Routine, Nausea and Vomiting (N/V) glucagon 2020-0 Yes 1mg 1 mg, Univers (GLUCAGEN 05-30 Intramuscu ity of DIAGNOSTIC 06:00: lar, PRN, [place] KIT) 03 Starting Medical injection 1 Fri Branch mg 05/30/20 at 0100, Until Discontinu ed, LICO, Blood Glucose < or = 70 mg/dL and patient is unable to swallow or has mental changes. dextrose 50 2020-0 Yes 25mL 25 mL, Univ ers % in water 05-30 Slow IV ity of (D50W) 06:00: Push, PRN, [place] injection 03 Starting Medica l 25 mL Fri [place] 05/30/20 at 0100, Until Discontinu ed, LICO, Blood Glucose < or = 70 mg/dL and patient is unable to swallow or has mental status changes. primidone 2020-0 Yes 250mg 250 mg, Univ ers (MYSOLINE) - Oral, Q6H, ity of tablet 250 06:00: First dose [place] mg 00 on [facility] Medical 05/30/20 at Branch 0100, Until Discontinu ed, Routine metoprolol 2020-0 Yes 25mg 25 mg, Unive rs tartrate 11 Oral, BID, ity o f (LOPRESSOR) 06:00: First dose [place] tablet [address] [facility] mg 05/30/20 at Branch 0100, Until Discontinu ed, Routine atorvastati 2020-0 Yes 40mg 40 mg, Univ ers n (LIPITOR) 05-30 Oral, QHS, it y of tablet 40 06:00: First dose [place] mg 00 on [facility] Medical 05/30/20 at Branch 0100, Until Discontinu ed, Routine aspirin 2020-0 Yes 81mg 81 mg, Univers chewable 05-30 Oral, ity of tablet 81 06:00: DAILY, [place] mg 00 First dose Medical on Tue [place] 05/30/20 at 0100, Until Discontinu ed, Routine nitroglycer 2020-0 2020- No 1[in_us 1 Inch, Univers in (NITROL) 05-30 ] Transderma i ty of 2 % 03:15: 03:47 l (Apply [place] ointment 1 00 :00 To Skin), Medi [place]cca Inch ONCE, 1 Branch dose, [facility] 05/29/20 at 2215, LICO furosemide 2020-0 2020- No 60mg 60 mg, IV U nivers (LASIX) 05-30 Push, ity of injection 03:15: 03:39 ONCE, 1 [place] 60 mg 00 :00 dose, [facility] 05/29/20 at Branch 2215, LICO albuterol 2020-0 2020- No 8{puff} 8 Puff, U nivers (VENTOLIN) 9-11 09-11 Inhalation it y of inhaler 8 01:45: 01:04 , ONCE, 1 [place] Puff 00 :00 dose, [place] [facility] 05/29/20 at Branch 2045, LICO
Is this order for a patient with suspected or confirmed COVID-19 infection? Yes atorvastati 2020- No [id number] 20mg Take 1 Univers n (LIPITOR) 01-27 tablet by it y of 20 mg 00:00: 00:00 mouth at [place] tablet 00 :00 bedtime. Medical Branch Insulin 2020- No [id number] 8U inject 8 U nivers Glargine 01-27 Units ity of (LANTUS 00:00: 00:00 under the [place] SOLOSTAR) 00 :00 skin Medical 100 unit/mL daily. Branch (3 mL) injection Lancets Yes Use as Univers (ACCU-CHEK 4-12 directed ity o f SOFTCLIX 00:00: three (3) [place] LANCETS) 00 times Medical Misc daily Branch blood sugar Yes 3 (three) U nivers diagnostic 4-12 times ity of (ACCU-CHEK 00:00: daily. Use [place] ACTIVE 00 as Medical TEST) strip directed Bran ch Lancets Yes Use as Univers (ACCU-CHEK 4-12 directed ity o f SOFTCLIX 00:00: [place] (3) [place] LANCETS) 00 times Medical Misc daily Branch blood sugar Yes 3 (three) U nivers diagnostic 4-12 times ity of (ACCU-CHEK 00:00: daily. Use [place] ACTIVE 00 as Medical TEST) strip directed Bran ch Blood-Gluco Yes Use as Univ ers se Meter 4-07 directed ity of (ACCU-CHEK 00:00: [place] WILLIAM) Misc Medical Branch Blood-Gluco Yes Use as Univ ers se Meter 4-07 directed ity of (ACCU-CHEK 00:00: [place] WILLIAM) Mis 00 Medical Branch EXFORGE 2020- No TAKE 1 Univers 10-320 mg 01-03 TABLET BY ity of per tablet 00:00: 00:00 MOUTH [place] 00 :00 EVERY DAY Medical Branch Vital Signs Vital Name Observation Time Observation Value Comments Source Systolic blood 2020-06-04 20:55:00 156 mm[Hg] Univer sity of pressure [facility] Branch Diastolic blood 2020-06-04 20:55:00 85 mm[Hg] Unive rsity of pressure [facility] Branch Respiratory rate 2020-06-04 20:55:00 18 /min Univ ersity of [facility] Oxygen saturation in 2020-06-04 20:55:00 92 /min University of Arterial blood by [facility] mecca Pulse oximetry Branch Heart rate 2020-06-04 20:00:00 67 /min Universi ty of [facility] Body temperature 2020-06-04 20:00:00 36.06 Razia Univ ersity of [facility] Body weight 2020-06-03 06:15:00 65.998 kg Universi ty of [facility] BMI 2020-06-03 06:15:00 24.21 kg/m2 Universi ty of [facility] Body height 2020-05-30 06:15:00 165.1 cm Universi ty of [facility] Systolic blood 2020-06-04 20:55:00 156 mm[Hg] Univer sity of pressure [facility] Diastolic blood 2020-06-04 20:55:00 85 mm[Hg] Unive rsity of pressure [facility] Respiratory rate 2020-06-04 20:55:00 18 /min Univ ersity of [facility] Oxygen saturation in 2020-06-04 20:55:00 92 /min University of Arterial blood by [facility] Pulse oximetry Branch Heart rate 2020-06-04 20:00:00 67 /min Universi ty of [facility] Body temperature 2020-06-04 20:00:00 36.06 Razia Univ ersity of [facility] Body weight 2020-06-03 06:15:00 65.998 kg Universi ty of [facility] BMI 2020-06-03 06:15:00 24.21 kg/m2 Universi ty of [facility] Body height 2020-05-30 06:15:00 165.1 cm Universi ty [facility] Procedures Procedure Date / Time Performing Clinician Source Performed POCT GLUCOSE (AUTOMATED) 2020-06-04 21:56:00 [facility] POCT GLUCOSE (AUTOMATED) 2020-06-04 16:48:00 [facility] XR CHEST 1 VW 2020-06-04 13:56[facility] 2020-06-04 12:44:00 Arben Julien Uni versity of [facility] POCT GLUCOSE (AUTOMATED) 2020-06-04 01:32:00 Arben Julien Uni versity of [facility] POCT GLUCOSE (AUTOMATED) 2020-06-03 21:46:00 Arben Julien Uni versity of [facility] POCT GLUCOSE (AUTOMATED) 2020-06-03 16:54:00 Arben Julien Uni versity of [facility] POCT GLUCOSE (AUTOMATED) 2020-06-03 12:50:00 Arben Julien Uni versity of [facility] COMP. METABOLIC PANEL 2020-06-03 11:37:00 [facility] ([id number]) [facility] CBC WITH DIFF 2020-06-03 11:36:00 Sukhwinder Hughes [facility] POCT GLUCOSE (AUTOMATED) 2020-06-03 01:18:00 Arben Julien Uni versity of [facility] POCT GLUCOSE (AUTOMATED) 2020-06-02 21:22:00 Arben Julien Uni versity of [facility] FL MODIFIED BARIUM 2020-06-02 19:00:00 Rufus Goodwin [facility] POCT GLUCOSE (AUTOMATED) 2020-06-02 16:59:00 Arben Julien Uni versity of [facility] POCT GLUCOSE (AUTOMATED) 2020-06-02 13:26:00 Arben Julien Uni versity of [place] [facility] MAGNESIUM 2020-06-02 10:40:00 Rufus Goodwin [facility] COMP. METABOLIC PANEL 2020-06-02 10:40:00 [facility]ufus [facility] ([id number]) [facility] CBC WITH DIFF 2020-06-02 10:40:00 Arben Julien [facility] POCT GLUCOSE (AUTOMATED) 2020-06-01 21:51:00 Arben Julien Uni versity of [facility] POCT GLUCOSE (AUTOMATED) 2020-06-01 17:00:00 Arben Julien [facility] BLOOD CULTURE SCREEN 2020-06-01 15:42:00 Rufus Goodwin [facility] BLOOD CULTURE SCREEN 2020-06-01 15:29:00 Rufus Goodwin [facility] POCT GLUCOSE (AUTOMATED) 2020-06-01 13:18:[address] [facility] MAGNESIUM 2020-06-01 10:14:00 Rufus Goodwin [facility] COMP. METABOLIC PANEL 2020-06-01 10:14:00 [facility]ufus [facility] ([id number]) [facility] ACUTE CARE VENOUS BLOOD 2020-06-01 10:14:00 Arben Julien [facility] CBC WITH DIFF 2020-06-01 10:14:00 [facility] N-TERMINAL PRO-BNP 2020-06-01 10:14:00 Wily hilda [facility] POCT GLUCOSE (AUTOMATED) 2020-06-01 00:42:00 Arben Julien [facility] POCT GLUCOSE (AUTOMATED) 2020-05-31 21:51:00 Arben Julien [facility] AMMONIA, PLASMA 2020-05-31 17:01:00 Rufus Goodwin [facility] POCT GLUCOSE (AUTOMATED) 2020-05-31 16:59:00 Arben Julien [facility] URIC ACID 2020-05-31 08:32:00 [facility] MAGNESIUM 2020-05-31 08:32:00 [facility] TROPONIN I 2020-05-31 08:32:00 [facility] COMP. METABOLIC PANEL 2020-05-31 08:32:00 [facility] ([id number]) [facility] CBC WITH DIFF 2020-05-31 08:32:00 [facility] N-TERMINAL PRO-BNP 2020-05-31 08:32:00 Wily hilda [facility] POCT GLUCOSE (AUTOMATED) 2020-05-31 00:32:00 Arben Julien [facility] POCT GLUCOSE (AUTOMATED) 2020-05-30 20:44:00 Wily hilda [facility] POCT GLUCOSE (AUTOMATED) 2020-05-30 17:04:00 Arben Julien [facility] TROPONIN I 2020-05-30 16:25:00 Wily hilda [facility] ECHO ROUTINE W/DOPPLER 2020-05-30 16:08:[address] [facility] POCT GLUCOSE (AUTOMATED) 2020-05-30 13:56:00 Arben Julien [facility] CT THORAX WO CONTRAST 2020-05-30 10:26:42 Wily hilda [facility] SEDIMENTATION RATE 2020-05-30 09:51:00 Wily hilda [facility] CBC WITH DIFF 2020-05-30 09:51:00 [facility] URIC ACID 2020-05-30 08:34:00 [facility] MAGNESIUM 2020-05-30 08:34:00 [facility] CORTISOL AM 2020-05-30 08:34:00 [facility] TROPONIN I 2020-05-30 08:34:00 [facility] COMP. METABOLIC PANEL 2020-05-30 08:34:00 [facility] ([id number]) [facility] IRON PANEL 2020-05-30 08:34:00 Wily hilda [facility] N-TERMINAL PRO-BNP 2020-05-30 08:34:00 Wily hilda [facility] LEGIONELLA URINARY 2020-05-30 08:29:00 Wily hilda [facility] ANTIGEN TST [facility] SODIUM, URINE RANDOM 2020-05-30 08:28:00 Wily hilda [facility] PROTEIN CREAT RATIO 2020-05-30 08:28:00 Wily hilda [facility] URINE RANDOM [facility] PNEUMOCOCCAL ANTIGEN 2020-05-30 08:27:00 Arben Julien [facility] OSMOLALITY URINE 2020-05-30 08:25:00 [facility] UREA NITROGEN, URINE 2020-05-30 08:25:00 Arben Julien [facility] RANDOM [facility] URINE CULTURE 2020-05-30 08:24:00 Arben Julien [facility] OSMOLALITY SERUM 2020-05-30 07:08:00 [facility] VITAMIN B12, LEVEL 2020-05-30 07:08:00 Arben Julien [facility] FOLATE 2020-05-30 07:08:00 Arben Julien [place] [facility] PROTHROMBIN TIME / INR 2020-05-30 07:08:00 Arben Julien [facility] MYCOPLASMA PNEUMONIAE 2020-05-30 07:08:00 Arben Julien [facility] ANTIBODY, IGM [facility] VITAMIN D, 25-OH 2020-05-30 07:08:00 Wily hilda [facility] PROCALCITONIN 2020-05-30 07:08:00 Arben Julien [facility] BLOOD CULTURE SCREEN 2020-05-30 07:07:00 Arben Julien [facility] BLOOD CULTURE WORKUP 2020-05-30 07:07:00 Wily hilda [facility] BLOOD CULTURE WORKUP 2020-05-30 07:07:00 Arben Julien [facility] GRAM POSITIVE BLOOD 2020-05-30 07:07[facility]00 [facility] PROBE-AEROBIC RESPIRATORY PANEL BY PCR 2020-05-30 05:20:00 Arben Julien [facility] COVID-19 (PCR MOLECULAR 2020-05-30 05:20:00 Arben Julien [facility] TESTING) [facility] EXTERNAL PROVIDER 2020-05-30 05:01:00 Doctor Unassigned, No [facility] RECORDS Name Medical Branch URINALYSIS 2020-05-30 03:39:00 Trice Kraft [facility] XR CHEST 1 VW 2020-05-30 01:45:07 Trice Kraft [facility] CT HEAD WO CONTRAST 2020-05-30 01:34:53 Trice Kraft [facility] EKG-12 LEAD 2020-05-30 01:08:00 Trice Kraft [facility] AC ABG + LACTIC ACID 2020-05-30 01:06:00 Trice Kraft [facility] POCT GLUCOSE(AGE 2020-05-30 01:04:00 Trice Kraft [facility] >30DAYS) [facility] POCT GLUCOSE (AUTOMATED) 2020-05-30 01:03:00 [facility] 2020-05-30 00:59:00 [facility] CREATINE KINASE 2020-05-30 00:59:00 [facility] URIC ACID 2020-05-30 00:59:00 [facility] MAGNESIUM 2020-05-30 00:59:00 [facility] FERRITIN SERUM 2020-05-30 00:59:00 [facility] TROPONIN I 2020-05-30 00:59:00 Trice Kraft [facility] THYROID STIMULATING 2020-05-30 00:59:00 Wily [facility] HORMONE [facility] COMP. METABOLIC PANEL 2020-05-30 00:59:00 Trice Kraft [facility] ([id number]) [facility] LIPID PANEL 2020-05-30 00:59:00 Wily hilda [facility] ([id number])(TOTAL Medical Branch CHOLESTEROL, TRIGLYCERIDES, HDL) CBC WITH DIFF 2020-05-30 00:59:00 Trice Kraft [facility] GLYCOSYLATED HEMOGLOBIN 2020-05-30 00:59:00 Arben Julien [facility] (A1C) [facility] N-TERMINAL PRO-BNP 2020-05-30 00:59:00 Trice Kraft [facility] COVID-19 (ID NOW RAPID 2020-05-30 00:59:00 Trice Kraft [facility] TESTING) Medical Branch EKG-12 LEAD 2020-05-30 00:39:36 Trice Kraft [facility] NOTICE OF PRIVACY 2020-05-29 23:34:11 Doctor Unassigned, No [facility] PRACTICES Name Medical Branch CONSENT/REFUSAL FOR 2020-05-29 23:33:17 [facility]igned, [facility] Name Medical Branch Encounters Start End Encounter Admission Attending Care Care Encounter Source Date/Time Date/Time Type Type Clinicians Facility Department ID 2020-06-05 2020-06-05 Transition Mary Kay Cerna [id number] 00:00:00 00:00:00 of Care Cody oNrma Stover [id number] [place] [id number] [id number] 2020-06-05 2020-06-05 Transition Mary Kay Cerna [id number] [facility] 00:00:00 00:00:00 of Care Cody Stover [id number] ity of [place] [address] [place] [address] [id number] [facility] 403 Branch 2020-05-29 2020-06-04 [facility] 1.2.840. 114 [id number] 18:50:00 17:57:00 Encounter Arben Julien [id number] [place] [address] [place] [id number] [facility] 2020-05-29 2020-06-04 [facility] 1.2.840. 114 [id number] Univers 18:50:00 17:57:00 Encounter Arben Julien [id number] ity of [place] 4.[address] [place] [address] [id number] [facility] 080 Branch 2020-05-29 2020-05-29 Emergency X [facility] ERT [id number] Univers 18:28:00 [facility]:28:[facility] Test Description Test Time Test Comments Results Result Comments Source POCT GLUCOSE (AUTOMATED) 2020-06-04 21:59:00 Test Item Value Reference Range Interpretation Comme nts POCT GLU (test code = 3591075205) 133 mg/dL 70-110 H Lab Interpretation (test code = 63629-4) Abnormal [facility]2020-06-04 17:13:00 Test Item Value Reference Range Interpretation Comments POCT GLU (test code = 2833555224) 154 mg/dL 70-110 H Lab Interpretation (test code = Abnormal 56165-0) [facility] 1 [id number] 14:00:56HISTORY: Follow-up of CHF. TECHNIQUE: AP view of the chest is obtained. Comparison is made with05/29/2020 study. FINDINGS: Moderate cardiomegaly noted with minimal, if any, residualpulmonary edema. Atelectatic changes are seen predominantly in theinfrahilar right lower lung. No significant pleural effusion. Multiple permanent electrodes inserted through left subclavian appear to bein good position. CONCLUSIONS: Interval improvement since 05/29/2020 study with minimal, ifany, residual pulmonary edema seen at this time.[facility], Radiant Results Inft User - 06/04/2020 9:02 AM CDTHISTORY: Follow-up of CHF.TECHNIQUE: AP view of the chest is obtained. Comparison is made with05/29/2020 study.FINDINGS: Moderate cardiomegaly noted with minimal, if any, residualpulmonary edema. Atelectatic changes are seen predominantly in theinfrahilar right lower lung. No significant pleural effusion.Multiple permanent electrodes inserted through left subclavian appear to bein good position.CONCLUSIONS: Interval improvement since 05/29/2020 study with minimal, ifany, residual pulmonary edema seen at this time.[facility])2020-06-04 13:19:00 Test Item Value Reference Range Interpretation Comments POCT GLU (test code = 7848920738) 98 mg/dL 70-110 Lab Interpretation (test code = Normal 34667-7) [facility]2020-06-04 01:35:00 Test Item Value Reference Range Interpretation Comments POCT GLU (test code = 9924712128) 192 mg/dL 70-110 H Lab Interpretation (test code = Abnormal 99302-4) [facility] GLUCOSE (AUTOMATED)2020-06-03 21:51:00 Test Item Value Reference Range Interpretation Comments POCT GLU (test code = 4186649200) 98 mg/dL 70-110 Lab Interpretation (test code = Normal 62782-9) [facility] GLUCOSE (AUTOMATED)2020-06-03 17:28:00 Test Item Value Reference Range Interpretation Comments POCT GLU (test code = 6248095051) 195 mg/dL 70-110 H Lab Interpretation (test code = Abnormal 56164-9) [facility] GLUCOSE (AUTOMATED)2020-06-03 13:43:00 Test Item Value Reference Range Interpretation Comments POCT GLU (test code = 3111345510) 98 mg/dL 70-110 Lab Interpretation (test code = Normal 29370-1) [facility] WITH [id number] 13:10:00 Test Item Value Reference Range Interpretation Comments WBC (test code = See_Comment L [Automated 6690-2) message] The sy stem which generated this result transmitted reference range : 4.20 - 10.70 10*3/?L. The reference range was not used to interpret this result as normal/abnormal . RBC (test code = See_Comment L [Automated 789-8) message] The sy stem which generated this result transmitted reference range : 4.26 - 5.52 10*6/?L. The reference range was not used to interpret this result as normal/abnormal . HGB (test code = 9.6 g/dL 12.2-16.4 L 718-7) HCT (test code = 27.6 % 38.4-49.3 L 4544-3) MCV (test code = 92.3 fL 81.7-95.6 787-2) MCH (test code = 32.1 pg 26.1-32.7 785-6) MCHC (test code = 34.8 g/dL 31.2-35 786-4) RDW-SD (test code = 46.4 fL 38.5-51.6 33406-2) RDW-CV (test code = 13.7 % 12.1-15.4 788-0) PLT (test code = See_Comment L [Automated 777-3) message] The sy stem which generated this result transmitted reference range : 150 - 328 10*3/ ?L. The reference r martin was not used to interpret this result as normal/abnormal . MPV (test code = 10.5 fL 9.8-13 43740-2) NRBC/100 WBC (test See_Comment [Automat ed code = 9901685265) message] The system which generated this result transmitted reference range : 0.0 - 10.0 /100 WBCs. The refer ence range was not u sed to interpret th is result as normal/abnormal . NRBC x10^3 (test code <0.01 See_Comment [Auto mated = 4272774779) message] The s ystem which generated this result transmitted reference range : 10*3/?L. The reference range was not used to interpret this result as normal/abnormal . GRAN MAT (NEUT) % 55.9 % (test code = 770-8) IMM GRAN % (test code 0.40 % = 5767949526) LYMPH % (test code = 16.5 % 736-9) MONO % (test code = 12.4 % 5905-5) EOS % (test code = 14.0 % 713-8) BASO % (test code = 0.8 % 706-2) GRAN MAT x10^3(ANC) 1.35 10*3/uL 1.99-6.95 L (test code = 2377159855) IMM GRAN x10^3 (test <0.03 0-0.06 code = 0025718481) LYMPH x10^3 (test code 0.40 10*3/uL 1.09-3.23 L = 731-0) MONO x10^3 (test code 0.30 10*3/uL 0.36-1.02 L = 742-7) EOS x10^3 (test code = 0.34 10*3/uL 0.06-0.53 711-2) BASO x10^3 (test code <0.03 0.01-0.09 = 704-7) Lab Interpretation Abnormal (test code = 29010-6) [facility]. METABOLIC PANEL (53086)2020-06-03 12:46:00 Test Item Value Reference Range Interpretation Comments NA (test code = 136 mmol/L 135-145 6393321110) K (test code = 3.9 mmol/L 3.5-5 9797580025) CL (test code = 100 mmol/L 98-108 0523775440) CO2 TOTAL (test code = 27 mmol/L 23-31 9538189964) AGAP (test code = 2-16 0412705220) BUN (test code = 37 mg/dL 7-23 H 1425866463) GLUCOSE (test code = 87 mg/dL 70-110 1244190571) CREATININE (test code = 1.85 mg/dL 0.6-1.25 H 8081616088) TOTAL BILI (test code = 0.4 mg/dL 0.1-1.7 3825061740) CALCIUM (test code = 9.4 mg/dL 8.6-10.6 8787792558) T PROTEIN (test code = 6.3 g/dL 6.3-8.2 5178409218) ALBUMIN (test code = 3.2 g/dL 3.5-5 L 8485233574) ALK PHOS (test code = 58 U/L 34-122 2562581045) ALTv (test code = 22 U/L 5-50 1742-6) AST(SGOT) (test code = 31 U/L 13-40 0526739953) eGFR Calculation mL/min/1.73m2 (Non-) (test code = 4380603134) eGFR Calculation mL/min/1.73m2 () (test code = 2271355701) EMIR (test code = EMIR) Association of Glomerular Filtration Rate (GFR) and Staging of Kidney Disease* + --+ --+ ------+| GFR (mL/min/1.73 m2) ?| With Kidney Damage ?| ?Without Kidney Damage+ --------+ --------+ +| ?>90 ?| ?Stage one ?| ? Normal ?+ ---+ ---+ -------+| ?60-89 ?| ?Stage two ?| ? Decreased GFR ? + --+ --+ ------+| ?30-59 ?| ?Stage three ?| ? Stage three ? + --+ --+ ------+| ?15-29 ?| ?Stage four ? | ? Stage four ?+ ---+ ---+ -------+| ?<15 (or dialysis) ? ?| ?Stage five ? | ? Stage five ?+ ---+ ---+ -------+ *Each stage assumes the associated GFR level has been in effect for at least three months. ?Stages 1 to 5, with or without kidney disease, indicate chronic kidney disease. Notes: Determination of stages one and two (with eGFR >59mL/min/1.73 m2) requires estimation of kidney damage for at least three months as defined by structural or functional abnormalities of the kidney, manifested by either:Pathological abnormalities or Markers of kidney damage (including abnormalities in the composition of the blood or urine or abnormalities in imaging tests). Lab Interpretation Abnormal (test code = 55844-4) [facility] GLUCOSE (AUTOMATED)2020-06-03 01:56:00 Test Item Value Reference Range Interpretation Comments POCT GLU (test code = 1891337936) 152 mg/dL 70-110 H Lab Interpretation (test code = Abnormal 54404-1) [facility] BARIUM SWALLOW, (COOKIE)2020-06-02 23:24:43 Flash laryngeal penetration on swallowing of thin fluids. Please refer to the speech pathologist's report for further details.EXAM: [place] MODIFIED BARIUM SWALLOW HISTORY: aspiration TECHNIQUE: Barium of varying consistencies from thin liquids to solids wasadministered to the patient during fluoroscopy. The study was performedwith the speech pathologists. FINDINGS: The swallow reflex and protectivemechanisms are intact. Flash penetrationwas observed when fed with thin liquids. No penetration or aspiration wasseen with nectar thick liquid, puree or jewelry solids. [facility], Radiant Results Inft User- 06/02/2020 6:25 PM CDTEXAM: [place] MODIFIED BARIUM SWALLOW HISTORY: aspiration TECHNIQUE: Barium of varying consistencies from thin liquids to solids wasadministered to the patient during fluoroscopy. The study was performedwith the speech pathologists.FINDINGS: The swallow reflex and protective mechanisms are intact. Flash penetrationwas observed when fed with thin liquids. No penetration or aspiration wasseen with nectar thick liquid, puree or jewelry solids.IMPRESSIONFlash laryngeal penetration on swallowing of thin fluids.Please refer to the speech pathologist's report for further details.[facility] GLUCOSE (AUTOMATED)2020-06-02 21:24:00 Test Item Value Reference Range Interpretation Comments POCT GLU (test code = 129 mg/dL 70-110 H Notifi ed Provider [id number]) Lab Interpretation (test Abnormal code = 67654-5) [facility]2020-06-02 17:12:00 Test Item Value Reference Range Interpretation Comments POCT GLU (test code = 159 mg/dL 70-110 H Notifi ed Provider [id number]) Lab Interpretation (test Abnormal code = 57966-8) [facility] WITH [id number] 14:34:00 Test Item Value Reference Range Interpretation Comments WBC (test code = See_Comment L [Automated 6690-2) message] The sy stem which generated this result transmitted reference range : 4.20 - 10.70 10*3/?L. The reference range was not used to interpret this result as normal/abnormal . RBC (test code = See_Comment L [Automated 789-8) message] The sy stem which generated this result transmitted reference range : 4.26 - 5.52 10*6/?L. The reference range was not used to interpret this result as normal/abnormal . HGB (test code = 8.6 g/dL 12.2-16.4 L 718-7) HCT (test code = 24.4 % 38.4-49.3 L 4544-3) MCV (test code = 91.7 fL 81.7-95.6 787-2) MCH (test code = 32.3 pg 26.1-32.7 785-6) MCHC (test code = 35.2 g/dL 31.2-35 H 786-4) RDW-SD (test code = 46.7 fL 38.5-51.6 90924-1) RDW-CV (test code = 13.9 % 12.1-15.4 788-0) PLT (test code = See_Comment [Automated 777-3) message] The sy stem which generated this result transmitted reference range : 150 - 328 10*3/ ?L. The reference r martin was not used to interpret this result as normal/abnormal . MPV (test code = 10.4 fL 9.8-13 41376-0) NRBC/100 WBC (test See_Comment [Automat ed code = 0580710216) message] The system which generated this result transmitted reference range : 0.0 - 10.0 /100 WBCs. The refer ence range was not u sed to interpret th is result as normal/abnormal . NRBC x10^3 (test code <0.01 See_Comment [Auto mated = 8957726506) message] The s ystem which generated this result transmitted reference range : 10*3/?L. The reference range was not used to interpret this result as normal/abnormal . GRAN MAT (NEUT) % 58.9 % (test code = 770-8) IMM GRAN % (test code 0.40 % = 0643585909) LYMPH % (test code = 11.3 % 736-9) MONO % (test code = 10.8 % 5905-5) EOS % (test code = 17.3 % 713-8) BASO % (test code = 1.3 % 706-2) GRAN MAT x10^3(ANC) 1.36 10*3/uL 1.99-6.95 L (test code = 6607270356) IMM GRAN x10^3 (test <0.03 0-0.06 code = 3099377962) LYMPH x10^3 (test code 0.26 10*3/uL 1.09-3.23 L = 731-0) MONO x10^3 (test code 0.25 10*3/uL 0.36-1.02 L = 742-7) EOS x10^3 (test code = 0.40 10*3/uL 0.06-0.53 711-2) BASO x10^3 (test code 0.03 10*3/uL 0.01-0.09 = 704-7) Lab Interpretation Abnormal (test code = 55849-9) [facility]2020-06-02 13:45:00 Test Item Value Reference Range Interpretation Comments POCT GLU (test code = 6543166095) 105 mg/dL 70-110 Lab Interpretation (test code = Normal 00053-8) [facility] [id number] 13:39:00 Test Item Value Reference Range Interpretation Comments Blood Culture Staphylococcus Organism elvia ntified Workup (test epidermidis by DNA probeFor code = 600-7) susceptibility results, refer to culture # - [id number] Gram stain Gram positive cocci Anaerobi c Bottle (test code = 664-3) [facility]. METABOLIC PANEL (11205)2020-06-02 13:10:00 Test Item Value Reference Range Interpretation Comments NA (test code = 133 mmol/L 135-145 L 0482570022) K (test code = 3.4 mmol/L 3.5-5 L 0351813150) CL (test code = 96 mmol/L 98-108 L 4974473562) CO2 TOTAL (test code = 28 mmol/L 23-31 1820212911) AGAP (test code = 2-16 1249023500) BUN (test code = 34 mg/dL 7-23 H 5561203918) GLUCOSE (test code = 135 mg/dL 70-110 H 8006355862) CREATININE (test code = 1.83 mg/dL 0.6-1.25 H 1069971335) TOTAL BILI (test code = 0.4 mg/dL 0.1-1.9 9756206254) CALCIUM (test code = 9.4 mg/dL 8.6-10.6 6761018202) T PROTEIN (test code = 6.0 g/dL 6.3-8.2 L 5010899752) ALBUMIN (test code = 3.1 g/dL 3.5-5 L 2654910607) ALK PHOS (test code = 52 U/L 34-122 0975225179) ALTv (test code = 25 U/L 5-50 1742-6) AST(SGOT) (test code = 31 U/L 13-40 1980341572) eGFR Calculation mL/min/1.73m2 (Non-) (test code = 0151420669) eGFR Calculation mL/min/1.73m2 () (test code = 4060847982) EMIR (test code = EMIR) Association of Glomerular Filtration Rate (GFR) and Staging of Kidney Disease* + --+ --+ ------+| GFR (mL/min/1.73 m2) ?| With Kidney Damage ?| ?Without Kidney Damage+ --------+ --------+ +| ?>90 ?| ?Stage one ?| ? Normal ?+ ---+ ---+ -------+| ?60-89 ?| ?Stage two ?| ? Decreased GFR ? + --+ --+ ------+| ?30-59 ?| ?Stage three ?| ? Stage three ? + --+ --+ ------+| ?15-29 ?| ?Stage four ? | ? Stage four ?+ ---+ ---+ -------+| ?<15 (or dialysis) ? ?| ?Stage five ? | ? Stage five ?+ ---+ ---+ -------+ *Each stage assumes the associated GFR level has been in effect for at least three months. ?Stages 1 to 5, with or without kidney disease, indicate chronic kidney disease. Notes: Determination of stages one and two (with eGFR >59mL/min/1.73 m2) requires estimation of kidney damage for at least three months as defined by structural or functional abnormalities of the kidney, manifested by either:Pathological abnormalities or Markers of kidney damage (including abnormalities in the composition of the blood or urine or abnormalities in imaging tests). Lab Interpretation Abnormal (test code = 27498-8) [facility]2020-[facility] 13:10:00 Test Item Value Reference Range Interpretation Comments MAGNESIUM (test code = 7310402363) 1.8 mg/dL 1.7-2.4 Lab Interpretation (test code = Normal 55586-2) [facility] HospitalMYCOPLASMA PNEUMONIAE ANTIBODY, [id number] 11:34:00 Test Item Value Reference Range Interpretation Comments Mycoplasma IGM (test 0.06 U/L See_Comment INTERPR ETIVE code = 5256-3) INFORMATION: ?Mycoplasma pneumoniae Ab, IgM ?0.76 U/L or less ... ....... Negative: No cl inically ?significan t amount of ?M. pneum oniae IgM antibody ?de tected. ?0.77 - 0.95 U/ L ........... Low Positive: M. pn eumoniae- ?specific I gM presumptively ?detected. Dena ection of a ?follow-u p sample in 1-2 ?week s is recommended to ?assure reactiv ity. ?0.96 U/L or gr eater ....... Positiv e: Highly significant ?amount of M. pneumonia e- ?specific IgM a ntibody ?detected. Ho wever, low levels ? of IgM antibodies may ?occasionally p ersist for more ?th an 12 months post-infection. Performed By: YUMIKO amado[address] [place] [id number] aboratory Director: Julisa Choi MD [Aut omated message] The sy stem which generated this result transmit moshe reference range : <=0.76. The reference r martin was not used to int erpret this result as normal/abnormal . [facility] [id number] 22:31:00 Test Item Value Reference Range Interpretation Comments Blood Culture-Aerobic Culture positive. No growth AA P revious (test code = 57402-6) See Blood prelim inary Culture Workup verified resu lt for additional was Culture I n information. Progress on 05/30/2020 at 03 19 CDT Blood Culture positive. No growth AA Previous Culture-Anaerobic See Blood preliminar y (test code = 85969-1) Culture Workup veri fied result for additional was Culture I n information. Progress on 05/30/2020 at 03 19 CDT Lab Interpretation Abnormal (test code = 21743-6) [facility]2020-06-01 21:59:00 Test Item Value Reference Range Interpretation Comments POCT GLU (test code = 9126243979) 101 mg/dL 70-110 Lab Interpretation (test code = Normal 64831-6) [facility] GLUCOSE (AUTOMATED)2020-06-01 17:53:00 Test Item Value Reference Range Interpretation Comments POCT GLU (test code = 8115915319) 184 mg/dL 70-110 H Lab Interpretation (test code = Abnormal 88322-3) [facility] [id number] 17:20:00 Test Item Value Reference Range Interpretation Comments Blood Culture-Aerobic Culture positive. No growth AA P revious (test code = 73667-3) See Blood prelim inary Culture Workup verified resu lt for additional was Culture I n information. Progress on 05/30/2020 at 03 19 CDT Blood Culture positive. No growth AA Previous Culture-Anaerobic See Blood preliminar y (test code = 32860-3) Culture Workup veri fied result for additional was Culture I n information. Progress on 05/30/2020 at 07 01 CDT Lab Interpretation Abnormal (test code = 82360-8) [facility] GLUCOSE (AUTOMATED)2020-06-01 13:22:00 Test Item Value Reference Range Interpretation Comments POCT GLU (test code = 1331863025) 109 mg/dL 70-110 Lab Interpretation (test code = Normal 38874-3) [facility] WITH [id number] 11:12:00 Test Item Value Reference Range Interpretation Comments WBC (test code = See_Comment L [Automated 6690-2) message] The sy stem which generated this result transmitted reference range : 4.20 - 10.70 10*3/?L. The reference range was not used to interpret this result as normal/abnormal . RBC (test code = See_Comment L [Automated 789-8) message] The sy stem which generated this result transmitted reference range : 4.26 - 5.52 10*6/?L. The reference range was not used to interpret this result as normal/abnormal . HGB (test code = 8.9 g/dL 12.2-16.4 L 718-7) HCT (test code = 25.3 % 38.4-49.3 L 4544-3) MCV (test code = 92.0 fL 81.7-95.6 787-2) MCH (test code = 32.4 pg 26.1-32.7 785-6) MCHC (test code = 35.2 g/dL 31.2-35 H 786-4) RDW-SD (test code = 46.0 fL 38.5-51.6 45468-3) RDW-CV (test code = 13.8 % 12.1-15.4 788-0) PLT (test code = See_Comment L [Automated 777-3) message] The sy stem which generated this result transmitted reference range : 150 - 328 10*3/ ?L. The reference r martin was not used to interpret this result as normal/abnormal . MPV (test code = 10.3 fL 9.8-13 55770-8) NRBC/100 WBC (test See_Comment [Automat ed code = 4978300778) message] The system which generated this result transmitted reference range : 0.0 - 10.0 /100 WBCs. The refer ence range was not u sed to interpret th is result as normal/abnormal . NRBC x10^3 (test code <0.01 See_Comment [Auto mated = 8042333029) message] The s ystem which generated this result transmitted reference range : 10*3/?L. The reference range was not used to interpret this result as normal/abnormal . GRAN MAT (NEUT) % 71.9 % (test code = 770-8) IMM GRAN % (test code 0.30 % = 5888882261) LYMPH % (test code = 8.0 % 736-9) MONO % (test code = 10.5 % 5905-5) EOS % (test code = 8.4 % 713-8) BASO % (test code = 0.9 % 706-2) GRAN MAT x10^3(ANC) 2.32 10*3/uL 1.99-6.95 (test code = 6833322042) IMM GRAN x10^3 (test <0.03 0-0.06 code = 2595965655) LYMPH x10^3 (test code 0.26 10*3/uL 1.09-3.23 L = 731-0) MONO x10^3 (test code 0.34 10*3/uL 0.36-1.02 L = 742-7) EOS x10^3 (test code = 0.27 10*3/uL 0.06-0.53 711-2) BASO x10^3 (test code 0.03 10*3/uL 0.01-0.09 = 704-7) Lab Interpretation Abnormal (test code = 31741-7) [id number] 11:07:00 Test Item Value Reference Range Interpretation Comments NT-proBNP (test code 59114 pg/mL See_Comment H [Autom ated = 0815273516) message] The system which generated this result transmitted reference range : <=450. The reference range was not used to interpret this result as normal/abnormal . EMIR (test code = EMIR) Biotin has been reported to cause a negative bias, interpret results relative to patient's use of biotin. Lab Interpretation Abnormal (test code = 39968-4) [facility]OL[facility] ([id number])2020-06-01 11:03:00 Test Item Value Reference Range Interpretation Comments NA (test code = 136 mmol/L 135-145 0669896025) K (test code = 3.9 mmol/L 3.5-5 5998033462) CL (test code = 97 mmol/L 98-108 L 9447237700) CO2 TOTAL (test code = 30 mmol/L 23-31 4005088126) AGAP (test code = 2-16 1685606081) BUN (test code = 34 mg/dL 7-23 H 5962084545) GLUCOSE (test code = 112 mg/dL 70-110 H 0827396112) CREATININE (test code = 1.81 mg/dL 0.6-1.25 H 6401771886) TOTAL BILI (test code = 0.5 mg/dL 0.1-1.5 4571397671) CALCIUM (test code = 9.5 mg/dL 8.6-10.6 0387601529) T PROTEIN (test code = 6.2 g/dL 6.3-8.2 L 0100128767) ALBUMIN (test code = 3.2 g/dL 3.5-5 L 7295169071) ALK PHOS (test code = 58 U/L 34-122 1779077377) ALTv (test code = 32 U/L 5-50 1742-6) AST(SGOT) (test code = 38 U/L 13-40 9562670416) eGFR Calculation mL/min/1.73m2 (Non-) (test code = 1572650846) eGFR Calculation mL/min/1.73m2 () (test code = 4793246851) EMIR (test code = EMIR) Association of Glomerular Filtration Rate (GFR) and Staging of Kidney Disease* + --+ --+ ------+| GFR (mL/min/1.73 m2) ?| With Kidney Damage ?| ?Without Kidney Damage+ --------+ --------+ +| ?>90 ?| ?Stage one ?| ? Normal ?+ ---+ ---+ -------+| ?60-89 ?| ?Stage two ?| ? Decreased GFR ? + --+ --+ ------+| ?30-59 ?| ?Stage three ?| ? Stage three ? + --+ --+ ------+| ?15-29 ?| ?Stage four ? | ? Stage four ?+ ---+ ---+ -------+| ?<15 (or dialysis) ? ?| ?Stage five ? | ? Stage five ?+ ---+ ---+ -------+ *Each stage assumes the associated GFR level has been in effect for at least three months. ?Stages 1 to 5, with or without kidney disease, indicate chronic kidney disease. Notes: Determination of stages one and two (with eGFR >59mL/min/1.73 m2) requires estimation of kidney damage for at least three months as defined by structural or functional abnormalities of the kidney, manifested by either:Pathological abnormalities or Markers of kidney damage (including abnormalities in the composition of the blood or urine or abnormalities in imaging tests). Lab Interpretation Abnormal (test code = 51497-5) [facility] 11:03:00 Test Item Value Reference Range Interpretation Comments MAGNESIUM (test code = 8111168221) 2.0 mg/dL 1.7-2.4 Lab Interpretation (test code = Normal 78542-8) [facility] [id number] 10:21:00 Test Item Value Reference Range Interpretation Comments PH (test code = 7.32-7.42 9925086100) PCO2 GIFTY (test code = See_Comment [Auto mated message] The 9652814388) system which ge nerated this result transmit moshe reference range : 41 - 51 mmHg. The refer ence range was not used to interpret this result as normal/abnormal . PO2 GIFTY (test code = See_Comment [Autom ated message] The 3304055974) system which ge nerated this result transmit moshe reference range : 25 - 40 mmHg. The refer ence range was not used to interpret this result as normal/abnormal . HCO3 GIFTY (test code = See_Comment [Auto mated message] The 8267313732) system which ge nerated this result transmit moshe reference range : 24 - 28 mEq/L. The refe rence range was not used to interpret this result as normal/abnormal . AC VBE(BEAKER) (test mEq/L code = 3927166520) [facility] GLUCOSE (AUTOMATED)2020-06-01 01:53:00 Test Item Value Reference Range Interpretation Comments POCT GLU (test code = 3485770128) 124 mg/dL 70-110 H Lab Interpretation (test code = Abnormal 38901-1) [facility] GLUCOSE (AUTOMATED)2020-05-31 22:35:00 Test Item Value Reference Range Interpretation Comments POCT GLU (test code = 5694038679) 105 mg/dL 70-110 Lab Interpretation (test code = Normal 51581-8) [facility] GLUCOSE (AUTOMATED)2020-05-31 17:52:00 Test Item Value Reference Range Interpretation Comments POCT GLU (test code = 7777232531) 106 mg/dL 70-110 Lab Interpretation (test code = Normal 30637-9) [facility] HospitalAMMONIA, [id number] 17:33:00 Test Item Value Reference Range Interpretation Comments AMMONIA (test code = 2119849654) <9 9-33 L Lab Interpretation (test code = Abnormal 16838-0) [facility] HospitalGRAM POSITIVE BLOOD PATHOGENS DNA [id number] 14:44:00 Test Item Value Reference Range Interpretation Comments Coagulase Negative Positive Negative A Staphylococcus (test code = 99353-6) EMIR (test code = EMIR) Coagulase negative Staphylococcus (CoNS) detected by DNA probe. ?CoNS often contaminate blood cultures from skin colonization during phlebotomy. ?Preferred management is to repeat blood cultures, and monitor off antibiotics. ?Contamination is suggested by culture growth after 48 hours, or growth in single culture (i.e., one of two sets). ?True bacteremia is suggested by the fever, hypotension, and leukocytosis that are not explained by an alternative infection, or indwelling foreign devices that appear infected (catheters, lines, or prostheses). Consider Infectious Diseases consultation if differentiation of CoNS bacteremia from contamination is uncertain. If clinical context suggests true bacteremia, preferred therapy is vancomycin. Please contact the Antimicrobial Stewardship Program with questions.Pager: ?[phone] Testing included eleven identification and three resistance marker targets. Lab Interpretation Abnormal (test code = 55151-9) [facility]2020-05-31 13:09:00 Test Item Value Reference Range Interpretation Comments POCT GLU (test code = 3869453361) 154 mg/dL 70-110 H Lab Interpretation (test code = Abnormal 98656-6) [facility] HospitalURINE [id number] 12:11:00 Test Item Value Reference Range Interpretation Comments URINE CULTURE (test No aerobic growth (< code = 630-4) 1000 CFU/mL) [facility]AL [id number] 11:51:00 Test Item Value Reference Range Interpretation Comments NT-proBNP (test code 18621 pg/mL See_Comment H [Autom ated = 1683437487) message] The system which generated this result transmitted reference range : <=450. The reference range was not used to interpret this result as normal/abnormal . EMIR (test code = EMIR) Biotin has been reported to cause a negative bias, interpret results relative to patient's use of biotin. Lab Interpretation Abnormal (test code = 24084-9) [facility] HospitalURIC [id number] 11:25:00 Test Item Value Reference Range Interpretation Comments URIC ACID (test code = 8007898432) 9.0 mg/dL 3.6-8 H Lab Interpretation (test code = Abnormal 16259-2) [facility] WITH [id number] 11:02:00 Test Item Value Reference Range Interpretation Comments WBC (test code = See_Comment [Automated 6690-2) message] The sy stem which generated this result transmitted reference range : 4.20 - 10.70 10*3/?L. The reference range was not used to interpret this result as normal/abnormal . RBC (test code = See_Comment L [Automated 789-8) message] The sy stem which generated this result transmitted reference range : 4.26 - 5.52 10*6/?L. The reference range was not used to interpret this result as normal/abnormal . HGB (test code = 9.6 g/dL 12.2-16.4 L 718-7) HCT (test code = 27.5 % 38.4-49.3 L 4544-3) MCV (test code = 91.7 fL 81.7-95.6 787-2) MCH (test code = 32.0 pg 26.1-32.7 785-6) MCHC (test code = 34.9 g/dL 31.2-35 786-4) RDW-SD (test code = 47.7 fL 38.5-51.6 09966-4) RDW-CV (test code = 14.0 % 12.1-15.4 788-0) PLT (test code = See_Comment L [Automated 777-3) message] The sy stem which generated this result transmitted reference range : 150 - 328 10*3/ ?L. The reference r martin was not used to interpret this result as normal/abnormal . MPV (test code = 10.5 fL 9.8-13 78213-3) NRBC/100 WBC (test See_Comment [Automat ed code = 0443559696) message] The system which generated this result transmitted reference range : 0.0 - 10.0 /100 WBCs. The refer ence range was not u sed to interpret th is result as normal/abnormal . NRBC x10^3 (test code <0.01 See_Comment [Auto mated = 9404233696) message] The s ystem which generated this result transmitted reference range : 10*3/?L. The reference range was not used to interpret this result as normal/abnormal . GRAN MAT (NEUT) % 81.0 % (test code = 770-8) IMM GRAN % (test code 0.40 % = 5765272118) LYMPH % (test code = 4.8 % 736-9) MONO % (test code = 11.5 % 5905-5) EOS % (test code = 1.7 % 713-8) BASO % (test code = 0.6 % 706-2) GRAN MAT x10^3(ANC) 4.23 10*3/uL 1.99-6.95 (test code = 7945927512) IMM GRAN x10^3 (test <0.03 0-0.06 code = 4185690194) LYMPH x10^3 (test code 0.25 10*3/uL 1.09-3.23 L = 731-0) MONO x10^3 (test code 0.60 10*3/uL 0.36-1.02 = 742-7) EOS x10^3 (test code = 0.09 10*3/uL 0.06-0.53 711-2) BASO x10^3 (test code 0.03 10*3/uL 0.01-0.09 = 704-7) Lab Interpretation Abnormal (test code = 78107-1) [facility] [id number] 10:45:00 Test Item Value Reference Range Interpretation Comments TROPONIN I (test 0.167 ng/mL See_Comment H [Automated code = 8821935869) message] The system which generated this result transmitted reference range : <=0.034. The reference range was not used to interpret this result as normal/abnormal . EMIR (test code = Equal or Less than EMIR) 0.034 ng/ml---Normal ?Note: Cardiac troponin begins to rise 3-4 hours after the onset of ischemia. Repeat in 4-6 hours if the sample was drawn within 3-4 hours of the onset of the symptom and found normal. Between 0.035 and 0.120 ng/mL--- Borderline. Questionable myocardial injury or necrosis ? ?Note: Serial measurement may be necessary to confirm or exclude the diagnosis of myocardial injury or necrosis; Clinical correlation (symptoms, EKGs, imaging studies, and others) required; Repeat in 4-6 hours if clinically indicated. ? Equal or Higher than 0.121 ng/mL---Abnormal. Myocardial Injury or Necrosis Likely ? Biotin has been reported to cause a negative bias, interpret results relative to patient's use of biotin. ? Lab Interpretation Abnormal (test code = 28099-8) [facility]OL[facility] PAN[facility] (76060)2020-05-31 10:35:00 Test Item Value Reference Range Interpretation Comments NA (test code = 133 mmol/L 135-145 L 0068812056) K (test code = 3.4 mmol/L 3.5-5 L 9129285153) CL (test code = 95 mmol/L 98-108 L 8022512176) CO2 TOTAL (test code = 29 mmol/L 23-31 8641605554) AGAP (test code = 2-16 7091158465) BUN (test code = 36 mg/dL 7-23 H 0986450905) GLUCOSE (test code = 136 mg/dL 70-110 H 5359988604) CREATININE (test code = 1.71 mg/dL 0.6-1.25 H 4383725596) TOTAL BILI (test code = 0.8 mg/dL 0.1-1.8 6837615509) CALCIUM (test code = 9.4 mg/dL 8.6-10.6 8234576761) T PROTEIN (test code = 6.5 g/dL 6.3-8.2 4831667421) ALBUMIN (test code = 3.4 g/dL 3.5-5 L 7675656204) ALK PHOS (test code = 59 U/L 34-122 5094014477) ALTv (test code = 35 U/L 5-50 1742-6) AST(SGOT) (test code = 42 U/L 13-40 H 1296956082) eGFR Calculation mL/min/1.73m2 (Non-) (test code = 4779870138) eGFR Calculation mL/min/1.73m2 () (test code = 9815773273) EMIR (test code = EMIR) Association of Glomerular Filtration Rate (GFR) and Staging of Kidney Disease* + --+ --+ ------+| GFR (mL/min/1.73 m2) ?| With Kidney Damage ?| ?Without Kidney Damage+ --------+ --------+ +| ?>90 ?| ?Stage one ?| ? Normal ?+ ---+ ---+ -------+| ?60-89 ?| ?Stage two ?| ? Decreased GFR ? + --+ --+ ------+| ?30-59 ?| ?Stage three ?| ? Stage three ? + --+ --+ ------+| ?15-29 ?| ?Stage four ? | ? Stage four ?+ ---+ ---+ -------+| ?<15 (or dialysis) ? ?| ?Stage five ? | ? Stage five ?+ ---+ ---+ -------+ *Each stage assumes the associated GFR level has been in effect for at least three months. ?Stages 1 to 5, with or without kidney disease, indicate chronic kidney disease. Notes: Determination of stages one and two (with eGFR >59mL/min/1.73 m2) requires estimation of kidney damage for at least three months as defined by structural or functional abnormalities of the kidney, manifested by either:Pathological abnormalities or Markers of kidney damage (including abnormalities in the composition of the blood or urine or abnormalities in imaging tests). Lab Interpretation Abnormal (test code = 32151-4) [facility]2020-[facility] 10:35:00 Test Item Value Reference Range Interpretation Comments MAGNESIUM (test code = 8177510536) 1.4 mg/dL 1.7-2.4 L Lab Interpretation (test code = Abnormal 89505-8) [facility]2020-05-30 21:17:00 Test Item Value Reference Range Interpretation Comments POCT GLU (test code = 5417321022) 105 mg/dL 70-110 Lab Interpretation (test code = Normal 38439-3) [facility] HospitalPNEUMOCOCCAL [id number] 19:20:00 Test Item Value Reference Range Interpretation Comments S. pneumoniae antigen Positive Negative A (test code = 1252938822) EMIR (test code = EMIR) S. pneumoniae vaccine may give false positive results in urine with this assay in the 48 hours following vaccination. Lab Interpretation (test Abnormal code = 81737-7) [facility] HospitalLEGIONELLA URINARY ANTIGEN [id number] 19:20:00 Test Item Value Reference Range Interpretation Comments Legionella Urinary Negative Negative Antigen (test code = 7116282084) EMIR (test code = EMIR) Negative for L. pneumophilia serogroup I antigen in urine suggesting no recent or current infection. Infection due to Legionella cannot be ruled out since other serogroups and species may cause disease. Furthermore, antigens may not be present in urine during early stage of infection, or the level of antigen present in urine may be below the detection limit of the test. Lab Interpretation (test Normal code = 14153-9) [facility] HospitalCORTISOL [id number] 18:48:00 Test Item Value Reference Range Interpretation Comments SHAYY AM (test code = 23.8 ug/dL 4.5-23 H 1040230525) EMIR (test code = EMIR) Biotin has been reported to cause a positive bias, interpret results relative to patient's use of biotin. Lab Interpretation (test Abnormal code = 54364-4) [facility]2020-05-30 17:17:00 Test Item Value Reference Range Interpretation Comments POCT GLU (test code = 6116700450) 117 mg/dL 70-110 H Lab Interpretation (test code = Abnormal 02785-9) [facility] HospitalTROPONIN [id number] 17:14:00 Test Item Value Reference Range Interpretation Comments TROPONIN I (test 0.222 ng/mL See_Comment H [Automated code = 2764072849) message] The system which generated this result transmitted reference range : <=0.034. The reference range was not used to interpret this result as normal/abnormal . EMIR (test code = Equal or Less than EMIR) 0.034 ng/ml---Normal ?Note: Cardiac troponin begins to rise 3-4 hours after the onset of ischemia. Repeat in 4-6 hours if the sample was drawn within 3-4 hours of the onset of the symptom and found normal. Between 0.035 and 0.120 ng/mL--- Borderline. Questionable myocardial injury or necrosis ? ?Note: Serial measurement may be necessary to confirm or exclude the diagnosis of myocardial injury or necrosis; Clinical correlation (symptoms, EKGs, imaging studies, and others) required; Repeat in 4-6 hours if clinically indicated. ? Equal or Higher than 0.121 ng/mL---Abnormal. Myocardial Injury or Necrosis Likely ? Biotin has been reported to cause a negative bias, interpret results relative to patient's use of biotin. ? Lab Interpretation Abnormal (test code = 71427-0) [facility] HospitalOSMOLALITY [id number] 16:53:00 Test Item Value Reference Range Interpretation Comments OSMO U (test code = See_Comment [Automa moshe message] 0844254688) The system [employer] generated this result transmitted ref erence range: 50-1,100 mOsm/kg. The re ference range was not u sed to interpret this result as normal/abnor mal. Lab Interpretation (test Normal code = 69922-6) [facility] HospitalVITAMIN D, [id number] 16:43:00 Test Item Value Reference Range Interpretation Comments VIT D 25OH (test code = 29 ng/mL 25-80 12446-1) EMIR (test code = EMIR) Deficiency: <20 ng/mLInsufficiency : 20-24 ng/mLOptimal: 25-80 ng/mL Lab Interpretation (test Normal code = 75093-3) [facility] HospitalUREA NITROGEN, URINE [id number] 15:44:00 Test Item Value Reference Range Interpretation Comments UREA N UR (test code = 7370447877) 114 mg/dL [facility] HospitalCT THORAX WO [id number] 15:23:12 1. ?Pulmonary edema with moderate volume right and trace volume leftpleural effusions. Dilated leftventricle. 2. ?Scattered pulmonary nodular opacities may represent scattered foci ofpulmonary edema and/or atelectasis. However, underlying solid, noncalcifiedpulmonary nodules cannot be excluded. A follow-up CT chest in 3 6 monthsrecommended document. 3. ?Calcified intrathoracic lymph nodes with calcified pulmonary, hepatic,and splenic granulomas can be seen with prior granulomatous disease. Preliminary Report Dictated by Resident: Iam Mcguire ?MD Chon., have reviewed this study and agree with theabove report.PROCEDURE: CT CHEST WITHOUT CONTRAST - CHEST PROTOCOL CLINICAL INDICATION:Acute resp illness, > 40 years old COMPARISON: None TECHNIQUE: ?Helical CT was performed of the chest (lung apices to bases)using 100 mL Omnipaque-350 nonionic intravenous contrast, withoutcomplications. Images were reconstructed at 1.25 mm slice thickness. AxialMIPs and coronal and sagittal MPR images were generated and reviewed.(Display kbbgq-fi-ykqf = 35 cm) FINDINGS: Lower neck/thyroid: Unremarkable. Lungs: Centrilobular septal thickening with groundglass at tenuatingparenchyma. Left lower lobe calcified granuloma. A 0.4 cm noncalcified, solid pulmonary nodule along the horizontal fissure(10:53), likely a pulmonary lymph node. Spiculated subpleural nodule within the right upper lobe (10:37). A 0.9 cmpulmonary nodule in the right lower lobe (10:66), this may represent afocus of pulmonary edema or atelectasis. Left lower lobe nodular opacities measure 0.7 cm, 0.8 cm and 0.6 cm, alsomay represent foci of pulmonary edema and/or atelectasis. Central airway: Unremarkable. Pleura: Large volume right pleural effusion. Trace volume left pleuraleffusion. No thickening or pneumothorax. Thoracic aorta and great vessels: Normal in diameter. Pulmonary arteries: Normal in caliber. Heart and pericardium: No detectable coronary artery calcifications.Cardiac megaly. Lymph nodes: Calcified mediastinal and bilateral hilar lymph nodes. Mediastinum: Unremarkable. Thoracic spine and chest wall: Unremarkable, with normal thoracic vertebralbody heights. Other Lines/Tubes/Devices/Hardware: Left chest wall pacemaker/AICD withleads terminating in the right ventricle, right atrium, and coronarysinus.. Visualized upper abdomen: Scattered splenic and hepatic calcifiedgranulomas . [facility], Radiant Results Inft User - 05/30/2020 10:24 AM CDTPROCEDURE:CT CHEST WITHOUT CONTRAST - CHEST PROTOCOLCLINICAL INDICATION:Acute resp illness, > 40 years old COMPARISON: NoneTECHNIQUE: Helical CT was performed of the chest (lung apices to bases)using 100 mL O mnipaque-350 nonionic intravenous contrast, withoutcomplications. Images were reconstructed at 1.25 mm slice thickness. AxialMIPs and coronal and sagittal MPR images were generated and reviewed.(Display itgut-oe-catp = 35 cm)FINDINGS:Lower neck/thyroid: Unremarkable.Lungs: Centrilobular septal thickening with groundglass attenuatingparenchyma.Left lower lobe calcified granuloma.A 0.4 cm noncalcified,solid pulmonary nodule along the horizontal fissure(10:53), likely a pulmonary lymph node.Spiculatedsubpleural nodule within the right upper lobe (10:37). A 0.9 cmpulmonary nodule in the right lower lobe (10:66), this may represent afocus of pulmonary edema or atelectasis.Left lower lobe nodular opaci ties measure 0.7 cm, 0.8 cm and 0.6 cm, alsomay represent foci of pulmonary edema and/or atelectasis.Central airway: Unremarkable.Pleura: Large volume right pleural effusion. Trace volume left pleuraleffusion. No thickening or pneumothorax.Thoracic aorta and great vessels: Normal in diameter.Pulmonary arteries: Normal in caliber.Heart and pericardium: No detectable coronary artery calcifications.Cardiac megaly.Lymph nodes: Calcified mediastinal and bilateral hilar lymph nodes.Mediastinum: Unremarkable.Thoracic spine and chest wall: Unremarkable, with normal thoracic vertebralbody heights.Other Lines /Tubes/Devices/Hardware: Left chest wall pacemaker/AICD withleads terminating in the right ventricle, right atrium, and coronarysinus..Visualized upper abdomen: Scattered splenic and hepatic calcifiedgr anulomas. IMPRESSION1. Pulmonary edema with moderate volume right andtrace volume leftpleural effusions. Dilated left ventricle.2. Scattered pulmonary nodular opacitiesmay represent scattered foci ofpulmonary edema and/or atelectasis. However, underlying solid, noncalc ifiedpulmonary nodules cannot be excluded. A follow-up CT chest in 3 6 monthsrecommended document.3. Calcified intrathoracic lymph nodes with calcified pulmonary, hepatic,and splenic granulomas can beseen with prior granulomatous disease. Preliminary Report Dictated byResident: Iam Gibson MD., have reviewed this study and agree with theabove report.[facility] 2020-05-30 14:53:00 Test Item Value Reference Range Interpretation Comments POCT GLU (test code = 9459066506) 100 mg/dL 70-110 Lab Interpretation (test code = Normal 42152-9) [facility] HospitalVITAMIN B12, [id number] 13:07:00 Test Item Value Reference Range Interpretation Comments VIT B12 (test code = 412 pg/mL 240-930 3849459825) EMIR (test code = EMIR) Biotin has been reported to cause a positive bias, interpret results relative to patient's use of biotin. Lab Interpretation (test Normal code = 48338-5) [facility] HospitalFOLATE2020-09-11 13:07:00 Test Item Value Reference Range Interpretation Comments FOLATE SER (test code = 8.4 ng/mL 3-20 Biot in has been 2193483103) reported to cau se a positive bias, interpret resul ts relative to patient's use o f biotin. Lab Interpretation (test Normal code = 81160-7) [facility] HospitalCORONAVIRUS COVID-19 [id number] 12:49:00 Test Item Value Reference Range Interpretation Comments SARS-CoV-2 PCR (test Not Detected Not Detected code = 10904-3) EMIR (test code = EMIR) Cepheid Xpert ?Xpress SARS-CoV-2 Assay is a rapid, real-time RT-PCR test intended for the qualitative detection of nucleic acid from the SARS-CoV-2 in nasopharyngeal ([employer]) specimens. It is used under Emergency Use Authorization (EUA) by FDA. A positive result is indicative of the presence of SARS-CoV-2 RNA. ?Clinical correlation with patient history and other diagnostic information is necessary to determine patient infection status. A negative (Not Detected) result does not preclude SARS-CoV-2 infection. A negative result does not rule out the presence of PCR inhibitors in the patient specimen or SARS-CoV-2 virus RNA concentrations below the limit of detection by the assay. Clinical correlation with patient history and other diagnostic information should be used in patient management decisions. Invalid: Please collect a new specimen for repeat patient testing if clinically indicated. Lab Interpretation Normal (test code = 33744-9) [facility] BY [id number] 12:44:00 Test Item Value Reference Range Interpretation Comments Adenovirus (test code = Negative Negative 18296-3) Coronavirus HKU1 (test Negative Negative code = 32954-2) Coronavirus NL63 (test Negative Negative code = 94056-5) Coronavirus 229E (test Negative Negative code = 98659-6) Coronavirus OC43 (test Negative Negative code = 10298-0) Human Metapneumovirus Negative Negative (test code = 47588-7) Human Negative Negative Rhinovirus/Enterovirus (test code = 28188-5) Influenza A (test code = Negative Negative 61846-4) Influenza B (test code = Negative Negative 23974-5) Parainfluenza Virus 1 Negative Negative (test code = 02512-0) Parainfluenza Virus 2 Negative Negative (test code = 54902-0) Parainfluenza Virus 3 Negative Negative (test code = 85889-8) Parainfluenza Virus 4 Negative Negative (test code = 28951-1) Respiratory Syncytial Negative Negative Virus (test code = 93552-1) Bordetella parapertussis Negative Negative (test code = 68772-7) Bordetella pertussis Negative Negative (test code = 58674-8) Chlamydia pneumoniae Negative Negative (test code = 00383-0) Mycoplasma pneumoniae Negative Negative (test code = 09851-8) EMIR (test code = EMIR) Negative:A negative result does not rule-out infection. ?This assay does not test for all potential infectious agents. ? Positive:A positive test result does not necessarily indicate the presence of viable organism. ? Lab Interpretation (test Normal code = 88300-4) [facility] HospitalPROCALCITONIN2020-[facility]-11 12:14:00 Test Item Value Reference Range Interpretation Comments Procalcitonin (test 0.06 ng/mL <0.07 code = 4767681130) EMIR (test code = EMIR) INTERPRETATION OF PROCALCITONIN RESULTS IN ADULTS >= 18 YEARS OF AGE Initiation and discontinuation of antibiotics on patients with suspected or confirmed Lower Respiratory Tract Infection in Adults >= 18 years of age. + +-------- --------+ + -----+|Procalcitonin |Interpretation ?|Antibiotic ? ? |Considerations ? |ng/mL ? | ?|recommendation | ? + +-------- --------+ + -----+| <0.1 ? | Bacterial ? ? ?| Strongly ? ? ?| ? | ?| infection very | discouraged ? | Overruling: ? | ?| unlikely ? ? ? | ? | ? Clinically unstable ? ? ? + +-------- --------+ + ? High risk for adverse ? ? | <0.25 ?| Bacterial ? ? ?| Discouraged ? | ? outcome ? | ?| infection ? ? ?| ? | ? SEE IMPORTANT NOTE ?| ?| unlikely ? ? ? | ? | ? + +-------- --------+ + -----+| >=0.25 ? ? ? | Bacterial ? ? ?| Encouraged ? ?| ? | ?| infection ? ? ?| ? | ? | ?| likely ? | ? | Consider treatment failure ?+ +------- ---------+ -+ if levels does not decrease | >0.5 ? | Bacterial ? ? ?| Strongly ? ? ?| appropriately ? | ?| infection very | encouraged ? ?| ? | ?| likely ? | ? | ? + +-------- --------+ + -----+ Discontinuation of antibiotics in high-acuity patients with suspected or confirmed sepsis in Adults >= 18 years of age. + +-------- --------+ + -----+|Procalcitonin |Interpretation ?|Antibiotic ? ? |Considerations ? |ng/mL ? | ?|recommendation | ? + +-------- --------+ + -----+| <0.25 ?| Bacterial ? ? ?| Strongly ? ? ?| ? | ?| infection very | discouraged ? | Overruling: ? | ?| unlikely ? ? ? | ? | ? Clinically unstable ? ? ? + +-------- --------+ + ? High risk for adverse ? ? | <0.5 or drop | Bacterial ? ? ?| Discouraged ? | ? outcome ? | >80% from ? ?| infection ? ? ?| ? | ? SEE IMPORTANT NOTE ?| highest PCT ?| unlikely ? ? ? | ? | ? | level ?| ?| ? | ? + +-------- --------+ + -----+| >=0.5 ?| Bacterial ? ? ?| Encouraged ? ?| ? | ?| infection ? ? ?| ? | ? | ?| likely ? | ? | Consider treatment failure ?+ +------- ---------+ -+ if levels does not decrease | >1.0 ? | Bacterial ? ? ?| Strongly ? ? ?| appropriately ? | ?| infection very | encouraged ? ?| ? | ?| likely ? | ? | ? + +-------- --------+ + -----+ Percentage of drop of Procalcitonin calculation for Discontinuation of antibiotics in high-acuity patients with suspected or confirmed sepsis in Adults >= 18 years of age. ? Procalcitonin highest{}-Procalcitonin current{}Delta Procalcitonin = x100% ? Procalcitonin current {} IMPORTANT NOTE: Procalcitonin may be elevated without bacterial infection by physiologic stress related to trauma, santana, chronic dialysis, metastatic cancer, surgery in the past seven days, malaria, some fungal infections, and some forms of vasculitis. The interpretation algorithm may not apply to patients with immunosuppression (equivalent of >10 mg of prednisone daily), HIV with CD4 cell count < 350 cells/mm3, active malignancy on systemic chemotherapy, solid organ transplant or hematopoietic stem cell transplantation, or hospital acquired pneumonia. Additionally, some clinical trials of procalcitonin have excluded patients with shock requiring vasopressor use, acute respiratory failure requiring mechanical ventilation, or those with known lung abscess/empyema. For further information please refer to:[email or web address] Lab Interpretation Normal (test code = 73961-6) [facility] HospitalOSMOLALITY [id number] 11:49:00 Test Item Value Reference Range Interpretation Comments OSMOLALITY (test code = See_Comment [Au tomated message] 6256243929) The system [employer] generated this result transmitted ref erence range: 278 - 30 5 mOsm/kg. The re ference range was not u sed to interpret this result as normal/abnor mal. Lab Interpretation (test Normal code = 39490-2) [facility] HospitalN-TERMINAL [id number] 11:19:00 Test Item Value Reference Range Interpretation Comments NT-proBNP (test code 02216 pg/mL See_Comment H [Autom ated = 8841820070) message] The system which generated this result transmitted reference range : <=450. The reference range was not used to interpret this result as normal/abnormal . EMIR (test code = EMIR) Biotin has been reported to cause a negative bias, interpret results relative to patient's use of biotin. Lab Interpretation Abnormal (test code = 68259-5) [facility] HospitalSEDIMENTATION [id number] 11:01:00 Test Item Value Reference Range Interpretation Comments ESR (test code = See_Comment H [Automated message] 3386940215) The system [employer] generated this result transmitted ref erence range: 0 - 10 m m/HR. The reference r martin was not used to interpret this result as normal/abnor mal. Lab Interpretation (test Abnormal code = 38892-6) [facility] HospitalTROPONIN [id number] 10:57:00 Test Item Value Reference Range Interpretation Comments TROPONIN I (test 0.233 ng/mL See_Comment H [Automated code = 6911914606) message] The system which generated this result transmitted reference range : <=0.034. The reference range was not used to interpret this result as normal/abnormal . EMIR (test code = Equal or Less than EMIR) 0.034 ng/ml---Normal ?Note: Cardiac troponin begins to rise 3-4 hours after the onset of ischemia. Repeat in 4-6 hours if the sample was drawn within 3-4 hours of the onset of the symptom and found normal. Between 0.035 and 0.120 ng/mL--- Borderline. Questionable myocardial injury or necrosis ? ?Note: Serial measurement may be necessary to confirm or exclude the diagnosis of myocardial injury or necrosis; Clinical correlation (symptoms, EKGs, imaging studies, and others) required; Repeat in 4-6 hours if clinically indicated. ? Equal or Higher than 0.121 ng/mL---Abnormal. Myocardial Injury or Necrosis Likely ? Biotin has been reported to cause a negative bias, interpret results relative to patient's use of biotin. ? Lab Interpretation Abnormal (test code = 15640-1) [facility] HospitalIRON [id number] 10:53:00 Test Item Value Reference Range Interpretation Comments IRON (test code = 8090253366) 37 ug/dL 50-160 L TIBC (test code = 3322272881) 259 ug/dL 250-410 % FE SAT (test code = 1497657591) 14 % 20-50 L Lab Interpretation (test code = Abnormal 93638-7) [facility] HospitalCOMP. METABOLIC PANEL (05825)2020-05-30 10:44:00 Test Item Value Reference Range Interpretation Comments NA (test code = 135 mmol/L 135-145 6882035987) K (test code = 4.3 mmol/L 3.5-5 4283715319) CL (test code = 98 mmol/L 98-108 4644410864) CO2 TOTAL (test code = 26 mmol/L 23-31 5334374188) AGAP (test code = 2-16 6489280377) BUN (test code = 29 mg/dL 7-23 H 1877537486) GLUCOSE (test code = 127 mg/dL 70-110 H 5884003133) CREATININE (test code = 1.38 mg/dL 0.6-1.25 H 6345024701) TOTAL BILI (test code = 0.9 mg/dL 0.1-1.2 2368937436) CALCIUM (test code = 9.4 mg/dL 8.6-10.6 5553226792) T PROTEIN (test code = 6.6 g/dL 6.3-8.2 1228980707) ALBUMIN (test code = 3.7 g/dL 3.5-5 3165701753) ALK PHOS (test code = 65 U/L 34-122 1279802484) ALTv (test code = 28 U/L 5-50 1742-6) AST(SGOT) (test code = 42 U/L 13-40 H 5558944709) eGFR Calculation mL/min/1.73m2 (Non-) (test code = 0631197943) eGFR Calculation mL/min/1.73m2 () (test code = 8385909614) EMIR (test code = EMIR) Association of Glomerular Filtration Rate (GFR) and Staging of Kidney Disease* + --+ --+ ------+| GFR (mL/min/1.73 m2) ?| With Kidney Damage ?| ?Without Kidney Damage+ --------+ --------+ +| ?>90 ?| ?Stage one ?| ? Normal ?+ ---+ ---+ -------+| ?60-89 ?| ?Stage two ?| ? Decreased GFR ? + --+ --+ ------+| ?30-59 ?| ?Stage three ?| ? Stage three ? + --+ --+ ------+| ?15-29 ?| ?Stage four ? | ? Stage four ?+ ---+ ---+ -------+| ?<15 (or dialysis) ? ?| ?Stage five ? | ? Stage five ?+ ---+ ---+ -------+ *Each stage assumes the associated GFR level has been in effect for at least three months. ?Stages 1 to 5, with or without kidney disease, indicate chronic kidney disease. Notes: Determination of stages one and two (with eGFR >59mL/min/1.73 m2) requires estimation of kidney damage for at least three months as defined by structural or functional abnormalities of the kidney, manifested by either:Pathological abnormalities or Markers of kidney damage (including abnormalities in the composition of the blood or urine or abnormalities in imaging tests). Lab Interpretation Abnormal (test code = 85587-7) [facility] HospitalMAGNESIUM2020-09-11 10:44:00 Test Item Value Reference Range Interpretation Comments MAGNESIUM (test code = 1180374240) 1.4 mg/dL 1.7-2.4 L Lab Interpretation (test code = Abnormal 49987-4) [facility] HospitalURIC [id number] 10:44:00 Test Item Value Reference Range Interpretation Comments URIC ACID (test code = 4474105673) 7.8 mg/dL 3.6-8 Lab Interpretation (test code = Normal 80421-4) [facility] HospitalPROTEIN CREAT RATIO URINE [id number] 10:29:00 Test Item Value Reference Range Interpretation Comments T. PROT U (test code = 104 mg/dL 2888-6) CREAT U (test code = 14.4 mg/dL 3002938866) Protein/Creatinine Ratio 0.0-2.0 H Urine (test code = 6375665802) EMIR (test code = EMIR) Random Urine Total Protein Reference Ranges Random Specimen: ? Less than 10 mg/dLFirst Morning Specimen: ? ?Less than 20 mg/dL ? Lab Interpretation (test Abnormal code = 64655-7) [facility] HospitalCBC WITH [id number] 10:28:00 Test Item Value Reference Range Interpretation Comments WBC (test code = See_Comment [Automated 5390-2) message] The sy stem which generated this result transmitted reference range : 4.20 - 10.70 10*3/?L. The reference range was not used to interpret this result as normal/abnormal . RBC (test code = See_Comment L [Automated 679-8) message] The sy stem which generated this result transmitted reference range : 4.26 - 5.52 10*6/?L. The reference range was not used to interpret this result as normal/abnormal . HGB (test code = 9.5 g/dL 12.2-16.4 L 718-7) HCT (test code = 26.9 % 38.4-49.3 L 4544-3) MCV (test code = 91.8 fL 81.7-95.6 787-2) MCH (test code = 32.4 pg 26.1-32.7 785-6) MCHC (test code = 35.3 g/dL 31.2-35 H 786-4) RDW-SD (test code = 47.6 fL 38.5-51.6 91023-2) RDW-CV (test code = 14.2 % 12.1-15.4 788-0) PLT (test code = See_Comment L [Automated 777-3) message] The sy stem which generated this result transmitted reference range : 150 - 328 10*3/ ?L. The reference r martin was not used to interpret this result as normal/abnormal . MPV (test code = 10.5 fL 9.8-13 24072-0) NRBC/100 WBC (test See_Comment [Automat ed code = 2239899002) message] The system which generated this result transmitted reference range : 0.0 - 10.0 /100 WBCs. The refer ence range was not u sed to interpret th is result as normal/abnormal . NRBC x10^3 (test code <0.01 See_Comment [Auto mated = 4981712565) message] The s ystem which generated this result transmitted reference range : 10*3/?L. The reference range was not used to interpret this result as normal/abnormal . GRAN MAT (NEUT) % 83.1 % (test code = 770-8) IMM GRAN % (test code 0.40 % = 2635569565) LYMPH % (test code = 3.7 % 736-9) MONO % (test code = 11.8 % 5905-5) EOS % (test code = 0.4 % 713-8) BASO % (test code = 0.6 % 706-2) GRAN MAT x10^3(ANC) 4.52 10*3/uL 1.99-6.95 (test code = 0223664440) IMM GRAN x10^3 (test <0.03 0-0.06 code = 0770453747) LYMPH x10^3 (test code 0.20 10*3/uL 1.09-3.23 L = 731-0) MONO x10^3 (test code 0.64 10*3/uL 0.36-1.02 = 742-7) EOS x10^3 (test code = <0.03 0.06-0.53 L 711-2) BASO x10^3 (test code 0.03 10*3/uL 0.01-0.09 = 704-7) Lab Interpretation Abnormal (test code = 39317-0) [facility] HospitalSODIUM, URINE [id number] 10:25:00 Test Item Value Reference Range Interpretation Comments NA URINE (test code = 9107934984) 123 mmol/L [facility] HospitalPROTHROMBIN TIME / [id number] 08:09:00 Test Item Value Reference Range Interpretation Comments PROTIME PATIENT (test See_Comment [Auto mated message] code = 5964-2) The system [employer] generated this result transmitted ref erence range: 12.0 - 1 4.7 Seconds. The re ference range was not u sed to interpret this result as normal/abnor mal. INR (test code = 6301-6) Nor mal INR <1.1; Warfarin Therap eutic range 2.0 to 3. 0 or 2.5 to 3.5, dep ending upon the indica tions. Lab Interpretation (test Normal code = 75416-8) [facility] HospitalGLYCOSYLATED HEMOGLOBIN (A1C)2020-05-30 07:33:00 Test Item Value Reference Range Interpretation Comments HGB A1C (test code = 5.4 % 4-6 4548-4) EMIR (test code = EMIR) %A1C (NGSP) Interpretation (ADA)4.8-5.6 ? ? Normal or (Non-Diabetic Range)5.7-6.4 ? ? Increased Risk (Pre-Diabetic)>6.5 ?Diabetes Indicated Lab Interpretation Normal (test code = 77664-6) [facility] HospitalLIPID PANEL (34193)(TOTAL CHOLESTEROL, TRIGLYCERIDES, HDL)2020-05-30 07:20:00 Test Item Value Reference Range Interpretation Comments CHOL (test code = 174 mg/dL 120-200 3311604610) HDL (test code = 37 mg/dL >40 L 5537181029) HDLC RATIO (test code = See_Comment [Au tomated message] 2414736844) The system [employer] generated this result transmit moshe reference range : <=5.0. The refe rence range was not u sed to interpret th is result as normal/abnormal . TRIG (test code = 85 mg/dL 30-170 8136854452) LDL CHOL (test code = 120 mg/dL See_Comment [Auto mated message] 16581-8) The system [employer] generated this result transmit moshe reference range : <=160. The refe rence range was not u sed to interpret th is result as normal/abnormal . VLDL (test code = 17 mg/dL 5-60 4925628744) Lab Interpretation (test Abnormal code = 49988-2) [facility] HospitalCREATINE [id number] 07:19:00 Test Item Value Reference Range Interpretation Comments CK (test code = 1945986166) 88 U/L 33-194 Lab Interpretation (test code = Normal 52947-6) [facility] HospitalURIC [id number] 07:19:00 Test Item Value Reference Range Interpretation Comments URIC ACID (test code = 1462647816) 7.9 mg/dL 3.6-8 Lab Interpretation (test code = Normal 02293-1) [facility] HospitalFERRITIN [id number] 06:48:00 Test Item Value Reference Range Interpretation Comments FERRITIN (test code = 73.2 ng/mL 18-464 2345995508) EMIR (test code = EMIR) Biotin has been reported to cause a negative bias, interpret results relative to patient's use of biotin. Lab Interpretation (test Normal code = 10718-8) [facility] HospitalTHYROID STIMULATING [id number] 06:46:00 Test Item Value Reference Range Interpretation Comments TSH (test code = See_Comment [Automated message] 8259428341) The system [employer] generated this result transmitted ref erence range: 0.45 - 4 .70 mIU/L. The refe rence range was not u sed to interpret this result as normal/abnor mal. Lab Interpretation (test Normal code = 78285-0) [facility] HospitalMAGNESIUM2020-09-11 06:19:00 Test Item Value Reference Range Interpretation Comments MAGNESIUM (test code = 1324977887) 1.6 mg/dL 1.7-2.4 L Lab Interpretation (test code = Abnormal 91860-6) [facility] HospitalPHOSPHORUS2020-09-11 06:19:00 Test Item Value Reference Range Interpretation Comments PHOSPHORUS (test code = 8437183541) 2.9 mg/dL 2.5-5 Lab Interpretation (test code = Normal 11776-9) [facility] HospitalURINALYSIS2020-09-11 04:26:00 Test Item Value Reference Range Interpretation Comments APPEARANCE (test code = Clear Clear 7819103348) COLOR (test code = Yellow Yellow 6371149291) PH (test code = 4.8-8.0 8110673748) SP GRAVITY (test code = 1.003-1.030 4964694299) GLU U QUAL (test code = Normal Normal 6666246806) BLOOD (test code = 1+ Negative A 4379279900) KETONES (test code = Negative Negative 2230332802) PROTEIN (test code = 500 mg/dL Negative A 2887-8) UROBILIN (test code = Normal Normal 1683063812) BILIRUBIN (test code = Negative Negative 2859319535) NITRITE (test code = Negative Negative 8173729708) LEUK MARLENA (test code = Negative Negative 0670173844) RBC/HPF (test code = See_Comment H [Autom ated message] 9196394994) The system [employer] generated this result transmit moshe reference range : 0 - 3 HPF. The refe rence range was not u sed to interpret th is result as normal/abnormal . WBC/HPF (test code = See_Comment [Autom ated message] 5208958326) The system [employer] generated this result transmit moshe reference range : 0 - 5 HPF. The refe rence range was not u sed to interpret th is result as normal/abnormal . BACTERIA (test code = Few Negative A 0198431902) MUCOUS (test code = Slight Negative LPF A 5152935157) HYAL CAST (test code = See_Comment H [Aut omated message] 5516797762) The system [employer] generated this result transmit moshe reference range : <=2 LPF. The refere nce range was not u sed to interpret th is result as normal/abnormal . GRAN CASTS (test code = See_Comment H [Au tomated message] 8859698045) The system [employer] generated this result transmit moshe reference range : <=1 LPF. The refere nce range was not u sed to interpret th is result as normal/abnormal . Lab Interpretation (test Abnormal code = 25380-3) [facility] HospitalXR CHEST 1 [id number] 03:33:16 Multifocal interstitial and airspace opacities are concerning forbronchopneumonia. These findings can also be seen with atypical infectiousprocess, including COVID-19 pneumonia. Disclaimer: Generally,the findings on chest imaging in COVID-19 are notspecific, and overlap with other infections, including influenza, H1N1,SARS and MERS.According to the Centers for Disease Control (CDC) and recent statement ofthe [employer], viral testing remains the only specificmethod of diagnosis.Confirmation with the viral test is required, even ifradiologic findings are suggestive of COVID-[address]. Preliminary Report Dictated by Resident: Ming Bradley MD., have reviewed this study and agree with the abovereport.EXAM: XR CHEST 1 VW HISTORY: 79 years- old; Male; ACough, SOB, Wheezing COMPARISON: 03/25/2015 radiograph FINDINGS:Left- sided AICD with leads terminating in right atrium, right ventricle andcoronary sinus. Lungs/Pleura: Multifocal airspace and interstitial opacities are noted.There is no pleural effusion or pneumothorax. Heart/Mediastinum: The cardiomediastinal silhouette is enlarged, unchanged. No acute osseous structure abnormality. [facility], Radiant Results Inft User - 05/29/2020 10:34 PM CDTEXAM: XR CHEST 1 VWHISTORY: 79 years-old; Male; ACough, SOB, Wheezing COMPARISON: 03/25/2015 radiographFINDINGS:Left-sided AICD with leads terminating in right atrium,right ventricle andcoronary sinus.Lungs/Pleura: Multifocal airspace and interstitial opacities are noted.There is no pleural effusion or pneumothorax.Heart/Mediastinum: The cardiomediastinal silhouetteis enlarged, unchanged.No acute osseous structure abnormality.IMPRESSIONMultifocal interstitial and airspace opacities are concerning forbronchopneumonia. These findings can also be seen with atypical infectiousprocess, including COVID-19 pneumonia.Disclaimer: Generally, the findings on chest imaging in COVID-19 are notspecific, and overlap with other infections, including influenza, H1N1,SARS and MERS.According to the Centers for Disease Control (CDC) and recent statement ofthe [employer], viral testing remains the only specificmethod of diagnosis. Confirmation with the viral test is required, even ifradiologic findings are suggestive of COVID-[address]Preliminary Report Dictated by Resident: Darvin Duarte, Ming Lara MD., have reviewed this study and agree with the abovereport.[facility] HospitalCOVID-19 (ID NOW RAPID TESTING)2020-05-30 01:54:00 Test Item Value Reference Range Interpretation Comments SARS-CoV-2 Rapid ID NOW Not Detected Not Detected (test code = 03938-7) EMIR (test code = EMIR) ID NOW COVID-19 Assay is an isothermal nucleic acid amplification test intended for the qualitative detection of nucleic acid from SARS-CoV-2 viral RNA in nasopharyngeal ([employer]) specimens. It is used under Emergency Use Authorization (EUA) by FDA. The limit of detection (LOD) of the assay is 125 Genome Equivalents/mL. A positive result is indicative of the presence of SARS-CoV-2 RNA. ?Clinical correlation with patient history and other diagnostic [...] for repeat patient testing if clinically indicated. Lab Interpretation Normal (test code = 74255-0) [facility] HospitalTROPONIN [id number] 01:52:00 Test Item Value Reference Range Interpretation Comments TROPONIN I (test 0.148 ng/mL See_Comment H [Automated code = 2906577473) message] The system which generated this result transmitted reference range : <=0.034. The reference range was not used to interpret this result as normal/abnormal . EMIR (test code = Equal or Less than EMIR) 0.034 ng/ml---Normal ?Note: Cardiac troponin begins to rise 3-4 hours after the onset of ischemia. Repeat in 4-6 hours if the sample was drawn within 3-4 hours of the onset of the symptom and found normal. Between 0.035 and 0.120 ng/mL--- Borderline. Questionable myocardial injury or necrosis ? ?Note: Serial measurement may be necessary to confirm or exclude the diagnosis of myocardial injury or necrosis; Clinical correlation (symptoms, EKGs, imaging studies, and others) required; Repeat in 4-6 hours if clinically indicated. ? Equal or Higher than 0.121 ng/mL---Abnormal. Myocardial Injury or Necrosis Likely ? Biotin has been reported to cause a negative bias, interpret results relative to patient's use of biotin. ? Lab Interpretation Abnormal (test code = 27579-2) [facility] HospitalN-TERMINAL [id number] 01:49:00 Test Item Value Reference Range Interpretation Comments NT-proBNP (test code 35102 pg/mL See_Comment H [Autom ated = 0912509394) message] The system which generated this result transmitted reference range : <=450. The reference range was not used to interpret this result as normal/abnormal . EMIR (test code = EMIR) Biotin has been reported to cause a negative bias, interpret results relative to patient's use of biotin. Lab Interpretation Abnormal (test code = 13685-2) [facility] HospitalCOMP. METABOLIC PANEL (92347)2020-05-30 01:41:00 Test Item Value Reference Range Interpretation Comments NA (test code = 135 mmol/L 135-145 9008503392) K (test code = 4.0 mmol/L 3.5-5 0208036691) CL (test code = 98 mmol/L 98-108 6300492471) CO2 TOTAL (test code = 27 mmol/L 23-31 3818480133) AGAP (test code = 2-16 0675013399) BUN (test code = 27 mg/dL 7-23 H 8787332136) GLUCOSE (test code = 143 mg/dL 70-110 H 6971782045) CREATININE (test code = 1.51 mg/dL 0.6-1.25 H 7946879092) TOTAL BILI (test code = 0.6 mg/dL 0.1-1.3 3778305535) CALCIUM (test code = 9.5 mg/dL 8.6-10.6 3595898988) T PROTEIN (test code = 6.9 g/dL 6.3-8.2 0136832450) ALBUMIN (test code = 3.9 g/dL 3.5-5 1817511216) ALK PHOS (test code = 78 U/L 34-122 3706609353) ALTv (test code = 29 U/L 5-50 1742-6) AST(SGOT) (test code = 37 U/L 13-40 1017536644) eGFR Calculation mL/min/1.73m2 (Non-) (test code = 7476406006) eGFR Calculation mL/min/1.73m2 () (test code = 3176212895) EMIR (test code = EMIR) Association of Glomerular Filtration Rate (GFR) and Staging of Kidney Disease* + --+ --+ ------+| GFR (mL/min/1.73 m2) ?| With Kidney Damage ?| ?Without Kidney Damage+ --------+ --------+ +| ?>90 ?| ?Stage one ?| ? Normal ?+ ---+ ---+ -------+| ?60-89 ?| ?Stage two ?| ? Decreased GFR ? + --+ --+ ------+| ?30-59 ?| ?Stage three ?| ? Stage three ? + --+ --+ ------+| ?15-29 ?| ?Stage four ? | ? Stage four ?+ ---+ ---+ -------+| ?<15 (or dialysis) ? ?| ?Stage five ? | ? Stage five ?+ ---+ ---+ -------+ *Each stage assumes the associated GFR level has been in effect for at least three months. ?Stages 1 to 5, with or without kidney disease, indicate chronic kidney disease. Notes: Determination of stages one and two (with eGFR >59mL/min/1.73 m2) requires estimation of kidney damage for at least three months as defined by structural or functional abnormalities of the kidney, manifested by either:Pathological abnormalities or Markers of kidney damage (including abnormalities in the composition of the blood or urine or abnormalities in imaging tests). Lab Interpretation Abnormal (test code = 24944-8) [facility] HEAD WO [id number] 01:40:13 No acute intracranial hemorrhage or mass effect. CT HEAD WO CONTRAST HISTORY: Altered mental status (AMS), unclear cause COMPARISON: None available. ? TECHNIQUE: Routine unenhanced brain CT. ? FINDINGS: No acute intracranial hemorrhage, extracerebral fluid collection, midlineshift or mass effect.No acute transcortical infarction. Trace intracranial atherosclerosis.Ventricles are normal. Cerebral volume is age appropriate. No depressed calvarial fracture. Visualized orbits are unremarkable. Mucosal thickening of a left posterior ethmoid air cell. [facility], Radiant Results Inft User - 05/29/2020 8:52 PM CDTCT HEAD WO CONTRASTHISTORY: Altered mental status (AMS), unclear cause COMPARISON: None available. TECHNIQUE: Routine unenhanced brain CT. FINDINGS:No acute intracranial hemorrhage, extracerebral fluid collection, midlineshift or mass effect. No acute transcortical infarction. Trace intracranial atherosclerosis.Ventricles are normal. Cerebral volume is age appropriate. No depressed calvarial fracture. Visualized orbits are unremarkable. Mucosal thickening of a left posterior ethmoid aircell.IMPRESSIONNo acute intracranial hemorrhage or mass effect.[facility] 01:23:00 Test Item Value Reference Range Interpretation Comments POCT GLU (test code = 3731855553) 130 mg/dL 70-110 H Lab Interpretation (test code = Abnormal 96712-4) [facility] WITH [id number] 01:22:00 Test Item Value Reference Range Interpretation Comments WBC (test code = See_Comment [Automated 9790-2) message] The sy stem which generated this result transmitted reference range : 4.20 - 10.70 10*3/?L. The reference range was not used to interpret this result as normal/abnormal . RBC (test code = See_Comment L [Automated 979-8) message] The sy stem which generated this result transmitted reference range : 4.26 - 5.52 10*6/?L. The reference range was not used to interpret this result as normal/abnormal . HGB (test code = 10.6 g/dL 12.2-16.4 L 718-7) HCT (test code = 30.4 % 38.4-49.3 L 4544-3) MCV (test code = 91.8 fL 81.7-95.6 787-2) MCH (test code = 32.0 pg 26.1-32.7 785-6) MCHC (test code = 34.9 g/dL 31.2-35 786-4) RDW-SD (test code = 46.8 fL 38.5-51.6 67674-7) RDW-CV (test code = 13.9 % 12.1-15.4 788-0) PLT (test code = See_Comment [Automated 777-3) message] The sy stem which generated this result transmitted reference range : 150 - 328 10*3/ ?L. The reference r martin was not used to interpret this result as normal/abnormal . MPV (test code = 9.9 fL 9.8-13 37031-2) NRBC/100 WBC (test See_Comment [Automat ed code = 0883159223) message] The system which generated this result transmitted reference range : 0.0 - 10.0 /100 WBCs. The refer ence range was not u sed to interpret th is result as normal/abnormal . NRBC x10^3 (test code <0.01 See_Comment [Auto mated = 4870575154) message] The s ystem which generated this result transmitted reference range : 10*3/?L. The reference range was not used to interpret this result as normal/abnormal . GRAN MAT (NEUT) % 82.3 % (test code = 770-8) IMM GRAN % (test code 0.50 % = 0085139900) LYMPH % (test code = 5.5 % 736-9) MONO % (test code = 10.6 % 5905-5) EOS % (test code = 0.6 % 713-8) BASO % (test code = 0.5 % 706-2) GRAN MAT x10^3(ANC) 5.23 10*3/uL 1.99-6.95 (test code = 2693370625) IMM GRAN x10^3 (test 0.03 10*3/uL 0-0.06 code = 2964789912) LYMPH x10^3 (test code 0.35 10*3/uL 1.09-3.23 L = 731-0) MONO x10^3 (test code 0.67 10*3/uL 0.36-1.02 = 742-7) EOS x10^3 (test code = 0.04 10*3/uL 0.06-0.53 L 711-2) BASO x10^3 (test code 0.03 10*3/uL 0.01-0.09 = 704-7) Lab Interpretation Abnormal (test code = 06511-2) [facility] LACTIC [id number] 01:14:00 Test Item Value Reference Range Interpretation Comments PH (test code = 2) 7.35-7.45 PCO2 (test code = See_Comment [Automat ed 6440643089) message] The sy stem which generated this result transmitted reference range : 35 - 45 mmHg. The reference range was not used to interpret this result as normal/abnormal . PO2 (test code = See_Comment H [Automated 4004938590) message] The sy stem which generated this result transmitted reference range : 80 - 100 mmHg. The reference range was not used to interpret this result as normal/abnormal . HCO3 (test code = See_Comment [Automate d 0887445714) message] The sy stem which generated this result transmitted reference range : 22 - 26 mEq/L. The reference range was not used to interpret this result as normal/abnormal . BE (test code = See_Comment [Automated 2088585498) message] The sy stem which generated this result transmitted reference range : -3.0 - 3.0 mEq/ L. The reference r martin was not used to interpret this result as normal/abnormal . LACTIC ACID (test code 1.10 mmol/L = 7014936753) Lab Interpretation Abnormal (test code = 12325-4) [facility] >30DAYS[facility]2020-05-30 01:04:00 Test Item Value Reference Range Interpretation Comments POCT Glu (age>30days) (test code = 130 mg/dL 70-110 A 3342) Lab Interpretation (test code = Abnormal 26678-2) [facility]"
[2021-11-19 22:21] LABS: Absolute Lymphocytes (CBC) 0.6 K/uL (0.7-4.9); Hematocrit 30.8 % (39.6-49.0); Lymphocytes % 10.3 % (15.3-44.8); RBC Red Blood Cell Count 3.47 M/uL (4.33-5.43)
[2021-11-19 22:28] LABS: Protime INR 1.07
[2021-11-19 22:42] LABS: Bilirubin Direct 0.2 mg/dL (0-0.2); Bilirubin Total 0.8 mg/dL (0.2-1.0); Magnesium 1.9 mg/dL (1.8-2.4); Potassium 3.9 mmol/L (3.5-5.1); Protein, Total 6.5 g/dL (6.4-8.2)
[2021-11-19 22:49] LABS: Troponin High Sensitivity 123.7 pg/mL (<58.9)
--- NOTE | 2021-11-19 23:05 | ER ---
Nurse's Notes [facility] Name: Jimbo Cat Age: 81 yrs Sex: Male : 1940 Arrival Date: 11/19/2021 Time: 22:00 Bed 6 Private MD: Diagnosis: AICD defibrillation, palpitations Presentation: 11/19 22:00 Chief complaint: EMS states: they were toned out for pt who's defibrillator went off x bb 4 after he went to sleep pt denies chest pain on arrival states it just feels "tight". Coronavirus screen: At this time, the client does not indicate any symptoms associated with coronavirus-19. Ebola Screen: No symptoms or risks identified at this time. Initial Sepsis Screen: Does the patient meet any 2 criteria? No. Patient's initial sepsis screen is negative. Does the patient have a suspected source of infection? No. Patient's initial sepsis screen is negative. Risk Assessment: Do you want to hurt yourself or someone else? Patient reports no desire to harm self or others. Onset of symptoms was November 19, 2021. 22:00 Method Of Arrival: EMS: [facility] bb 22:00 Acuity: SYDNIE 3 bb Historical: - Allergies: 22:19 No Known Allergies; bb - Home Meds: 22:19 Albuterol Inhl [Active]; Doxycycline Oral [Active]; Metoprolol Tartrate Oral [Active]; bb Furosemide Oral [Active]; Entresto oral [Active]; Prednisone Oral [Active]; - PMHx: 22:19 Congestive heart failure; diabetes mellitus; Myocardial infarction; bb - PSHx: 22:19 Appendectomy; defibrillator; bb - Immunization history:: pt thinks he got vaccinated. - Social history:: Smoking status: unknown. Screenin:21 Abuse screen: Denies threats or abuse. Denies injuries from another. Nutritional tw5 screening: No deficits noted. Tuberculosis screening: No symptoms or risk factors identified. Fall Risk Secondary diagnosis (15 points). Assessment: 22:21 General: " I have a pacemaker/defibrillator I was sound asleep when my defibrillator tw5 went off. It started hitting me really bad when I got home. I got to my and said " honey I am in trouble.". Pain: Pain currently is 0 out of 10 on a pain scale. at worst was 9 out of 10 on a pain scale. Quality of pain is described as "It felt like a lightening bolt.". Neuro: Level of Consciousness is awake, alert, obeys commands, Oriented to person, place, time, situation. Cardiovascular: Heart tones S1 S2 present pacemaker under skin. Attempted to interrogate device with MedInterface21, no device found with that system. Capillary refill < 3 seconds is brisk in bilateral. Respiratory: Airway is patent Trachea midline Respiratory effort is even, unlabored, Breath sounds are clear bilaterally. 11/20 00:08 Reassessment: Patient appears in no apparent distress at this time. No changes from tw5 previously documented assessment. Patient and/or family updated on plan of care and expected duration. Pain level reassessed. General: Appears in no apparent distress. Behavior is calm, cooperative, appropriate for age, Reports " I am doing good.". Vital Signs: 11/19 22:00 BP 183 / 90; Pulse 60; Resp 20 S; Temp 98.5(O); Pulse Ox 99% on R/A; Weight 68.95 kg bb (R); Height 5 ft. 7 in. (170.18 cm) (R); Pain 0/10; 22:21 BP 183 / 90; Pulse 60; Resp 19; Pulse Ox 97% on R/A; Pain 0/10; tw5 22:31 BP 183 / 90; Pulse 60; Resp 17; Pulse Ox 97% on R/A; kd3 11/20 00:08 BP 172 / 85; Pulse 60; Resp 20; Pulse Ox 96% on R/A; tw5 00:35 BP 180 / 87; Pulse 60; Resp 18; Pulse Ox 98% on R/A; kd3 11/19 22:00 Body Mass Index 23.81 (68.95 kg, 170.18 cm) bb ED Course: 11/19 22:00 Patient arrived in ED. wm 22:00 Arm band placed on Patient placed in an exam room, on a stretcher, on security monitor, bb on pulse oximetry. EKG completed in triage. Results shown to MD. 22:00 Maintain EMS IV. Dressing intact. Good blood return noted. Site clean \\T\\ dry. Gauge \\T\\ bb site: 20g L AC. 22:03 Juan Oquendo MD is Attending Physician. sp3 22:05 Initial lab(s) drawn, by pr, sent to lab. latasha 22:15 Mague Ortega, RN is Primary Nurse. kd3 22:19 Triage completed. bb 22:21 Patient has correct armband on for positive identification. Placed in gown. Bed in low tw5 position. Call light in reach. Side rails up X 1. Pulse ox on. NIBP on. Door closed. Noise minimized. Moved to private room. 22:41 XRAY Chest (1 view) In Process Unspecified. EDMS 22:49 Notified ED physician of a critical lab result(s). troponin 123.7. tw5 23:05 Prince Zuluaga MD is Hospitalizing Provider. sp3 23:26 COVID-19/FLU A+B (Document "Date of Onset" if Symptomatic) Sent. kd3 11/20 00:08 Diet: Patient given water. tw5 02:35 No provider procedures requiring assistance completed. Patient admitted, IV remains in kd3 place. Administered Medications: 11/19 23:10 Drug: Lasix (furosemide) 40 mg Route: IVP; Site: left antecubital; kd3 11/20 00:36 Follow up: Response: No adverse reaction kd3 Outcome: 11/19 23:05 Decision to Hospitalize by Provider. sp3 11/20 02:26 Admitted to Med/surg Report called to report attempted to 4th floor kd3 02:34 Admitted to Med/surg Report called to 4th floor RN kd3 02:34 Condition: stable 02:45 Patient left the ED. kd3 Signatures: Dispatcher [employer] EDHI Kerry Tucker, Madelin Rosenthal RN, Setul, MD MD sp3 Lynne Cody tw5 Mague Ortega, RN RN kd3
--- NOTE | 2021-11-19 23:05 | EDPHYS ---
Physician Documentation [facility] Name: Jimbo Cat Age: 81 yrs Sex: Male : 1940 Arrival Date: 11/19/2021 Time: 22:00 Bed 6 Private MD: ED Physician Juan Oquendo HPI: 11/19 22:36 This 81 yrs old Male presents to ER via EMS with complaints of Defibrillator went off. sp3 22:36 81-year-old male with a history of myocardial infarction, AICD/pacer, diabetes, CHF sp3 presents to the ED via EMS for chief complaint "my defibrillator went off 4 times". Patient was asleep when his defibrillator went off multiple times and afterwards due to the intensity of the events he activated EMS who brought him to the ED. Patient had no symptoms that woke him up prior to the defibrillator firing. He currently feels the aftereffects of the defibrillator, but denies any substernal chest pain, back pain, shortness of breath, neck pain, left arm pain, or any other anginal equivalents. He also denies headache, abdominal pain, nausea, vomiting, diarrhea, rash, fever. He states that his last event where his AICD went off was approximately 4 years ago, however he also states that he has "early onset dementia" and his "memory is not so good". He does not have his defibrillator card with him and his is not able to located at home when she was contacted via telephone.. Historical: - Allergies: 22:19 No Known Allergies; bb - Home Meds: 22:19 Albuterol Inhl [Active]; Doxycycline Oral [Active]; Metoprolol Tartrate Oral [Active]; bb Furosemide Oral [Active]; Entresto oral [Active]; Prednisone Oral [Active]; - PMHx: 22:19 Congestive heart failure; diabetes mellitus; Myocardial infarction; bb - PSHx: 22:19 Appendectomy; defibrillator; bb - Immunization history:: pt thinks he got vaccinated. - Social history:: Smoking status: unknown. ROS: 22:38 Constitutional: Negative for fever, chills, and weight loss, Eyes: Negative for injury, sp3 pain, redness, and discharge, ENT: Negative for injury, pain, and discharge, Neck: Negative for injury, pain, and swelling, Respiratory: Negative for shortness of breath, cough, wheezing, and pleuritic chest pain, Abdomen/GI: Negative for abdominal pain, nausea, vomiting, diarrhea, and constipation, Back: Negative for injury and pain, MS/Extremity: Negative for injury and deformity, Skin: Negative for injury, rash, and discoloration, Neuro: Negative for headache, weakness, numbness, tingling, and seizure, Psych: Negative for depression, anxiety, suicide ideation, homicidal ideation, and hallucinations, Allergy/Immunology: Negative for hives, rash, and allergies, Endocrine: Negative for neck swelling, polydipsia, polyuria, polyphagia, and marked weight changes. 22:38 All other systems are negative. Exam: 22:38 Constitutional: This is a well developed, well nourished patient who is awake, alert, sp3 and in no acute distress. Head/Face: Normocephalic, atraumatic. Eyes: Pupils equal round and reactive to light, extra-ocular motions intact. Lids and lashes normal. Conjunctiva and sclera are non-icteric and not injected. Cornea within normal limits. Periorbital areas with no swelling, redness, or edema. ENT: Nares patent. No nasal discharge, no septal abnormalities noted. External auditory canals are clear. Oropharynx with no redness, swelling, or masses, exudates, or evidence of obstruction, uvula midline. Mucous membranes moist. Neck: Trachea midline, no thyromegaly or masses palpated, and no cervical lymphadenopathy. Supple, full range of motion without nuchal rigidity, or vertebral point tenderness. No Meningismus. Chest/axilla: Normal chest wall appearance and motion. Nontender with no deformity. No lesions are appreciated. Cardiovascular: Regular rate and rhythm with a normal S1 and S2. No gallops, murmurs, or rubs. Normal PMI, no JVD. No pulse deficits. Respiratory: Lungs have equal breath sounds bilaterally, clear to auscultation and percussion. No rales, rhonchi or wheezes noted. No increased work of breathing, no retractions or nasal flaring. Abdomen/GI: Soft, non-tender, with normal bowel sounds. No distension or tympany. No guarding or rebound. No evidence of tenderness throughout. Back: No spinal tenderness. No costovertebral tenderness. Full range of motion. MS/ Extremity: Pulses equal, no cyanosis. Neurovascular intact. Full, normal range of motion. Neuro: Awake and alert, GCS 15, oriented to person, place, time, and situation. Cranial nerves II-XII grossly intact. Motor strength 5/5 in all extremities. Sensory grossly intact. Cerebellar exam normal. Normal gait. Psych: Awake, alert, with orientation to person, place and time. Behavior, mood, and affect are within normal limits. 22:38 ECG was reviewed by the Attending Physician. EKG demonstrates paced rhythm at 60 bpm with adequate ventricular capture. No other abnormalities noted at this time. Vital Signs: 22:00 BP 183 / 90; Pulse 60; Resp 20 S; Temp 98.5(O); Pulse Ox 99% on R/A; Weight 68.95 kg bb (R); Height 5 ft. 7 in. (170.18 cm) (R); Pain 0/10; 22:21 BP 183 / 90; Pulse 60; Resp 19; Pulse Ox 97% on R/A; Pain 0/10; tw5 22:31 BP 183 / 90; Pulse 60; Resp 17; Pulse Ox 97% on R/A; kd3 11/20 00:08 BP 172 / 85; Pulse 60; Resp 20; Pulse Ox 96% on R/A; tw5 00:35 BP 180 / 87; Pulse 60; Resp 18; Pulse Ox 98% on R/A; kd3 11/19 22:00 Body Mass Index 23.81 (68.95 kg, 170.18 cm) bb MDM: 11/19 22:31 Patient medically screened. sp3 22:39 Data reviewed: vital signs, nurses notes. ED course: 81-year-old male who presents with sp3 AICD firing x4. Currently patient is stable and AICD is not firing. Unknown defibrillator type card is not accessible. Will observe in ED and likely admit overnight for cardiac consultation and proper interrogation. We will also trend troponins. Currently patient is stable and in no acute distress and I am not highly suspicious for acute coronary syndrome, or any other critical findings.. 23:05 ED course: No AICD firing in the ED and no ectopy on his monitor. Patient's troponin is sp3 123 though his creatinine is 1.67. BNP is significantly elevated and will administer Lasix 40 mg IV. Patient is not have any chest pain at the moment we will trend his troponins. 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 consultation. Interrogation was unsuccessful and we do not know the exact type of AICD that he has placed.. 11/19 22:08 Order name: Basic Metabolic Panel; Complete Time: 22:52 3 11/19 22:08 Order name: CBC with Diff; Complete Time: :52 3 11/19 22:08 Order name: LFT's; Complete Time: :52 sp3 11/19 22:08 Order name: Magnesium; Complete Time: :52 3 11/19 22:08 Order name: NT PRO-BNP; Complete Time: :52 3 11/19 22:08 Order name: PT-INR; Complete Time: :52 3 11/19 22:08 Order name: Troponin HS; Complete Time: :52 3 11/19 22:08 Order name: XRAY Chest (1 view) 3 11/19 22:08 Order name: EKG; Complete Time: 22:09 3 11/19 22:08 Order name: Cardiac monitoring; Complete Time: 22:31 3 11/19 22:08 Order name: EKG - Nurse/Tech; Complete Time: 22:31 3 11/19 23:17 Order name: COVID-19/FLU A+B (Document "Date of Onset" if Symptomatic); Complete Time: cs9 00:30 11/19 22:08 Order name: IV Saline Lock; Complete Time: 22:31 3 11/19 22:08 Order name: Labs collected and sent; Complete Time: 22:31 sp3 11/19 22:08 Order name: O2 Per Protocol; Complete Time: 22:31 3 11/19 22:08 Order name: O2 Sat Monitoring; Complete Time: 22:31 sp3 Administered Medications: 23:10 Drug: Lasix (furosemide) 40 mg Route: IVP; Site: left antecubital; kd3 11/20 00:36 Follow up: Response: No adverse reaction kd3 Disposition Summary: 11/19/21 23:05 Hospitalization Ordered Hospitalization Status: Observation sp3 Provider: Prince Zan spLeeann Location: Telemetry/MedSurg (observation) sp3 Condition: Stable sp3 Problem: an acute exacerbation sp3 Symptoms: have worsened sp3 Bed/Room Type: Standard sp3 Room Assignment: 426(11/20/21 02:21) cg Diagnosis - AICD defibrillation, palpitations sp3 Forms: - Medication Reconciliation Form sp3 - SBAR form sp3 Signatures: Dispatcher [employer] EDDE Kerry Tucker RN RN bb Shaq Panchal, MODEL ENGINE MECHANIC-C MODEL ENGINE MECHANIC-Cla1 Lisa Hutchinson RN RN cg Juan Oquendo MD MD sp3 Mague Ortega RN RN kd3 Corrections: (The following items were deleted from the chart) 11/19 23:34 23:16 SARS-COV-2 RT PCR+MOL.LAB.DANNI ordered. [facility] 11/20 02:21 11/19 23:05 sp3 cg
[2021-11-19] MEDS ORDERED: FUROSEMIDE 20 MG/ 2ML VIAL ONE (23:10)
[2021-11-20 00:15] LABS: SARS-COV-2 RT PCR NEGATIVE (NEGATIVE)
--- NOTE | 2021-11-20 00:52 | P.HP ---
Certification for Inpatient Patient admitted to: Observation With expected LOS: <2 Midnights Patient will require the following post-hospital care: None Practitioner: I am a practitioner with admitting privileges, knowledge of patient current condition, hospital course, and medical plan of care. Services: Services provided to patient in accordance with Admission requirements found in Title 42 Section 412.3 of the Code of Federal Regulations Patient History Date of Service: 11/20/21 Reason for admission: AICD defibrillation, CHF exacerbation History of Present Illness: 81-year-old male with history of systolic congestive heart failure, CKD 3, CAD presents the emergency department after being shocked by his pacemaker approximate 4 times this evening. Patient reports that the first 1 happened while he was sleeping and awoken from sleep, happened 3 more times since then. Patient denied any palpitations, shortness of breath or chest pain prior to these episodes of defibrillation. Patient was brought to the emergency department by EMS and evaluated initial troponinhigh-sensitivity 123.7 BNP also elevated 17,628 GFR is 40 similar to baseline. EKG without acute changes attempts were made to interrogate pacemaker but we did not have the appropriate equipment to do so, patient not sure what type of pacemaker/brand he has. ED provider wishes to admit under observation for further evaluation and management. Electrolytes normal in the ER. Patient symptom-free at this time. Allergies No Known Allergies Allergy (Verified 03/23/21 04:35) Home Medications: Primidone 250 mg PO QID 03/23/21 Sacubitril/Valsartan [Entresto 49 mg-51 mg Tablet] 1 tab PO BID #60 tab 03/23/21 Cholecalciferol (Vitamin D3) [Vitamin D3] 10,000 unit PO DAILY #30 capsule 04/01/21 Metoprolol Succinate [Toprol Xl*] 25 mg PO [id number] #30 tab 04/01/21 Albuterol Inhaler [Ventolin Inhaler*] 2 puff IH Q6H PRN #1 hfa.aer.ad 04/10/21 Arformoterol Tartrate [Brovana] 15 mcg NEB BIDRESP #60 vial.neb 04/10/21 predniSONE [Prednisone*] 20 mg PO DAILY #7 tab 04/10/21 Furosemide [Lasix*] 40 mg PO BID 30 Days #60 tab 04/29/21 Albuterol Neb [Proventil 0.083% Neb Soln] 2.5 mg NEB Q6HP PRN #0 amp 06/24/21 Atorvastatin Calcium [Lipitor] 40 mg PO DAILY #14 tablet 06/24/21 Ipratropium Neb [Atrovent*] 0.5 mg NEB [id number] PRN #0 amp 06/24/21 Albuterol Neb [Proventil 0.083% Neb Soln] 2.5 mg NEB Q6HP PRN #60 amp 07/09/21 Atorvastatin Calcium [Lipitor] 40 mg PO BEDTIME #30 tab 07/09/21 Benzonatate [Tessalon Perle*] 100 mg PO TID PRN #20 cap 07/09/21 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 moist/pink, EOMI, Sclerae nonicteric Neck: Supple, 2+ carotid pulse no bruit, No LAD, Without JVD or thyroid abnormality Respiratory: Diminished, Crackles/rales Cardiovascular: Regular rate/rhythm, Normal S1 S2 Capillary refill: <2 Seconds Gastrointestinal: Normal bowel sounds, No tenderness Musculoskeletal: No tenderness Integumentary: No rashes Neurological: Normal speech, Normal strength at 5/5 x4 extr, Normal tone, Normal affect - Studies Laboratory Data (last 24 hrs) 11/19/21 22:05: PT 12.3, INR 1.07 11/19/21 22:05: WBC 6.20, Hgb 10.7 L, Hct 30.8 L, Plt Count 149 L 11/19/21 22:05: Sodium 133 L, Potassium 3.9, BUN 40 H, Creatinine 1.67 H, Glucose 114 H, Magnesium 1.9, Total Bilirubin 0.8, AST 16, ALT 22, Alkaline Phosphatase 71 Assessment and Plan - Plan Assessment: AICD defibrillation Acute on chronic systolic congestive heart failure CKD 3 Hypertension Plan: AICD defibrillation: Electrolytes checked and normal at this time, cardiology consult in place. Monitor on telemetry. Patient chest pain-free at this time will trend troponin, monitor on telemetry. Appreciate further input from cardiology. Unable to interrogate pacemaker at this time, unsure what brand. Acute on chronic systolic congestive heart failure: IV Lasix for diuresis BNP significantly elevated. Obtain and review home medications, patient may need more diuretics at home. Appreciate further input from cardiology CKD 3: Stable and compared to baseline, monitor daily. Consult nephrology for worsening. Hypertension: Obtain and continue medications as appropriate. DVT PPX: Heparin Code status: Full Discharge Plan: Home Plan to discharge in: 24 Hours - Advance Directives Does patient have a Living Will: No Does patient have a Durable POA for Healthcare: No - Code Status/Comfort Care Code Status Assessed: Yes (Full code) Critical Care: No Time Spent Managing Pts Care (In Minutes): 55
[2021-11-20 04:40] VITALS: BMI 22.8
[2021-11-20] MEDS ORDERED: ONDANSETRON 4 MG/2 ML VIAL IV PRN (05:25)
[2021-11-20] MEDS ORDERED: HYDRALAZINE HCL 20 MG/ML VIAL IV PRN (05:47)
[2021-11-20 06:09] LABS: Absolute Lymphocytes (CBC) 0.6 K/uL (0.7-4.9); Lymphocytes % 11.8 % (15.3-44.8); MPV 6.9 fL (7.6-11.3)
[2021-11-20 06:35] LABS: Albumin 3.1 g/dL (3.4-5.0); Magnesium 1.9 mg/dL (1.8-2.4); Potassium 3.4 mmol/L (3.5-5.1); Protein, Total 6.7 g/dL (6.4-8.2)
[2021-11-20 06:39] LABS: Troponin High Sensitivity 126.8 pg/mL (<58.9)
--- NOTE | 2021-11-20 07:37 | RAD REPORT ---
EXAM DESCRIPTION: RAD - Chest Single View - 11/19/2021 10:41 pm CLINICAL HISTORY: CHEST PAIN COMPARISON: Chest Single View dated 07/08/2021; Chest Single View dated 06/23/2021; Chest Single View dated 06/15/2021; Chest Single View dated 04/29/2021 FINDINGS: Lines: Pacemaker/ICD. Lungs: Ill-defined bilateral perihilar opacities have increased from prior. Pleural: No significant pleural effusions or pneumothorax. Cardiac: Cardiomegaly. Bones: No acute fractures. Other: IMPRESSION: Increased perihilar opacities may reflect pulmonary edema and/or pneumonia.
[2021-11-20] MEDS ORDERED: INFLUENZA VACCINE (for 6+ mo) 0.5 ML DOSE IMVAC ONE (08:00)
[2021-11-20 08:12] LABS: Blood Morphology Comment NOT SEEN (NOT SEEN); Platelet Estimate DECR; White Blood Cell Scan OK (OK)
[2021-11-20 08:59] LABS: Urine Appearance CLEAR (Clear); Urine Bilirubin NEGATIVE (Negative); Urine Blood 2+ (Negative); Urine Color YELLOW (Yellow); Urine Glucose NEGATIVE (Negative); Urine Protein 2+ (Negative); Urine Specific Gravity <=1.005 (1.005-1.030); Urine Urobilinogen 0.2 mg/dL (0.2-1.0); Urine pH 6.5 (5.0-7.0)
[2021-11-20] MEDS ORDERED: HEPARIN 5000 UNIT/ML 1 ML VIAL SQ SCH (09:00)
[2021-11-20] MEDS ORDERED: FUROSEMIDE 40 MG/4 ML VIAL IV SCH (09:00)
[2021-11-20] MEDS ORDERED: POTASSIUM CL SA 10 MEQ TAB PO ONE (09:00)
[2021-11-20] MEDS ORDERED: ASPIRIN EC 81 MG TAB PO SCH (09:00)
[2021-11-20 09:02] LABS: Urine Microscopic Reflex ORDER UMIC
[2021-11-20 09:11] LABS: Urine Bacteria NONE SEEN /HPF (NONE SEEN)
--- NOTE | 2021-11-20 10:51 | P.DS ---
Admission Date: 11/20/21 Discharge Date: 11/20/21 Disposition: ROUTINE DISCHARGE Discharge Condition: GOOD Reason for Admission: AICD defibrillation, CHF exacerbation Hospital Course: Patient is a 81-year-old male with a known past medical history of congestive heart failure status post AICD. He presented to the ER after his defibrillator shocked him 4 times. He is euvolemic during this encounter. He could not do an ICD interrogation here as he did not know which brand was device. He was seen by cardiology during the stay as well. We will discharge him on amiodarone 40 mg twice daily. He will need to follow-up with Dr. 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 Vital Signs/Physical Exam: Temp Pulse Resp BP Pulse Ox 99.1 F 60 20 166/80 H 97 11/20/21 08:00 11/20/21 08:09 11/20/21 08:00 11/20/21 08:09 11/20/21 08:00 General: Alert, In no apparent distress, Cooperative HEENT: Atraumatic, Normocephalic Respiratory: Clear to auscultation bilaterally, Normal air movement Cardiovascular: Regular rate/rhythm, Normal S1 S2, Other (aicd) Musculoskeletal: No clubbing, No swelling, No contractures, No erythema, No tenderness Neurological: Normal speech, Normal affect Laboratory Data at Discharge: WBC 4.80 K/uL (4.3-10.9) D 11/20/21 04:26 Hgb 11.1 g/dL (13.6-17.9) L 11/20/21 04:26 Hct 32.0 % (39.6-49.0) L 11/20/21 04:26 Plt Count 150 K/uL (152-406) L 11/20/21 04:26 PT 12.3 SECONDS (9.5-12.5) 11/19/21 22:05 INR 1.07 11/19/21 22:05 Sodium 136 mmol/L (136-145) 11/20/21 04:26 Potassium 3.4 mmol/L (3.5-5.1) L 11/20/21 04:26 BUN 39 mg/dL (7-18) H 11/20/21 04:26 Creatinine 1.66 mg/dL (0.55-1.3) H 11/20/21 04:26 Glucose 128 mg/dL (74-106) H 11/20/21 04:26 Magnesium 1.9 mg/dL (1.8-2.4) 11/20/21 04:26 Total Bilirubin 1.0 mg/dL (0.2-1.0) 11/20/21 04:26 AST 16 U/L (15-37) 11/20/21 04:26 ALT 21 U/L (12-78) 11/20/21 04:26 Alkaline Phosphatase 72 U/L (45-117) 11/20/21 04:26 Triglycerides 61 mg/dL (<150) 11/20/21 04:26 Cholesterol 191 mg/dL (<200) 11/20/21 04:26 HDL Cholesterol 51 mg/dL (40-60) 11/20/21 04:26 Cholesterol/HDL Ratio 3.75 11/20/21 04:26 Home Medications: Sacubitril/Valsartan [Entresto 49 mg-51 mg Tablet] 1 tab PO BID #60 tab 03/23/21 Cholecalciferol (Vitamin D3) [Vitamin D3] 10,000 unit PO DAILY #30 capsule 04/01/21 Metoprolol Succinate [Toprol Xl*] 25 mg PO [id number] #30 tab 04/01/21 Albuterol Neb [Proventil 0.083% Neb Soln] 2.5 mg NEB Q6HP PRN #60 amp 07/09/21 Atorvastatin Calcium [Lipitor] 40 mg PO BEDTIME #30 tab 07/09/21 Amiodarone HCl [Pacerone] 400 mg PO BID #60 tablet 11/20/21 Furosemide [Lasix] 1 tab PO BEDTIME 11/20/21 Mometasone/Formoterol [Dulera 100 Mcg/5 Mcg Inhaler] 2 puff IH BID 11/20/21 New Medications: Amiodarone HCl [Pacerone] 400 mg PO BID #60 tablet Followup: Unknown,U [Primary Care Provider] -
--- NOTE | 2021-11-20 11:30 | EKG ---
Test Date: 2021-11-19 Test Time: 22:06:45 Ribbon Sweatband Operator: ZO MEASUREMENT RESULTS: Intervals: Rate: 60 SC: 104 QRSD: 164 QT: 488 QTc: 488 Cinebar: P: SC: 104 QRS: -64 T: 106 INTERPRETIVE STATEMENTS: Electronic ventricular pacemaker Compared to ECG 07/09/2021 09:08:10 No significant changes Electronically Signed On 11-20-21 11:28:52 SLIDE DEVELOPER by Max Pro
--- NOTE | 2021-11-20 11:37 | ECHO ---
HEIGHT: 5 ft 7 in WEIGHT: 146 lb 0 oz DATE OF STUDY: 11/20/[address]: Max Pro MD 2-DIMENSIONAL: YES M.MODE: YES DOPPLER: YES COLOR FLOW: YES TDS: NO PORTABLE: NO DEFINITY: NO BUBBLE STUDY: NO DIAGNOSIS: CONGESTIVE HEART FAILURE CARDIAC HISTORY: CATHERIZATION: NO SURGERY: NO PROSTHETIC VALVE: NO PACEMAKER: YES MEASUREMENTS (cm) DIASTOLIC (NORMALS) SYSTOLIC (NORMALS) IVSd 1.2 (0.6-1.2) LA Diam 6.0 (1.9-4.0) LVEF 62% LVIDd 5.5 (3.5-5.7) LVIDs 3.7 (2.0-3.5) %FS 34% LVPWd 1.3 (0.6-1.2) Ao Diam 2.8 (2.0-3.7) 2 DIMENSIONAL ASSESSMENT: RIGHT ATRIUM: NORMAL LEFT ATRIUM: DILATED RIGHT VENTRICLE: PACEMAKER WIRE SEEN LEFT VENTRICLE: NORMAL TRICUSPID VALVE: NORMAL MITRAL VALVE: NORMAL PULMONIC VALVE: NORMAL AORTIC VALVE: SCLEROSIS PERICARDIAL EFFUSION: NONE AORTIC ROOT: NORMAL LEFT VENTRICULAR WALL MOTION: NORMAL. DOPPLER/COLOR FLOW: MILD TO MODERATE MITRAL REGURGITATION. MILD TRICUSPID REGURGITATION. COMMENTS: NORMAL LEFT VENTRICULAR EJECTION FRACTION AND SIZE. LEFT ATRIAL ENLARGEMENT. AORTIC SCLEROSIS. MILD TO MODERATE MITRAL REGURGITATION. MILD TRICUSPID REGURGITATION. PACEMAKER WIRE IN RIGHT VENTRICULAR APEX. TECHNOLOGIST: MATA ALMARAZ
[2021-11-20 12:08] VITALS: BP 169/89; TEMP 98.4; O2SAT 96
--- NOTE | 2021-11-21 23:54 | CON ---
Reason For Consultation: The patient admitted to Dr. Zuluaga for AICD discharge x4, history of CHF. History Of Present Illness: Mr. Cat is 81-year-old, has a history of CAD, AICD, congestive heart f ailure, and diabetes, follows up with Dr. Arenas, came in with 4 shocks from the defibrillator and h as a potassium 3.4, normal magnesium, elevated troponin, elevated BNP, creatinine 1.66. He was hyper tensive at 185/91, but had no chest pain, nausea, vomiting, diaphoresis, PND, orthopnea, pedal edema, or palpitations. Denied any fever or chills. Past Medical History: As stated above. Allergies: NONE. Review of Systems: Negative. Social History: Negative. Family History: Negative. Physical Examination: Vital Signs: Stable, afebrile. HEENT: Negative. Neck: Supple, no bruit. Chest: Clear. Cardiac: Revealed a regular rhythm and rate. No murmurs, gallops, or rubs. Abdomen: Benign. Extremities: Revealed no clubbing, cyanosis, or edema. Medications: Please note, his medications at home include, 1.Inhalers. 2.Lipitor. 3.Lasix. 4.Metoprolol 25 daily. 5.Entresto 49/51 b.i.d. Diagnostic Data: As stated earlier. Impression And Plan: This is a patient with history of coronary artery disease, congestive heart jaimee lure, had an automatic implantable cardioverter-defibrillator discharge x4. He needs his potassium s upplemented. He has diabetes that is well controlled. His troponin and BNP elevation are expected s econdary to his hypertension and congestive heart failure and chronic coronary artery disease. I wou ld like him to get a 2D echocardiogram, supplement potassium, follow magnesium. I discussed the case with Dr. Arenas. I am going to put him on amiodarone 400 b.i.d. for 7 days and then 200 mg daily. He will follow up with Dr. Arenas as soon as he goes home in the very near future. He can go home otherwise whenever it is okay with Dr. Zuluaga. CHIVO/MODL Voice ID: [id number] Report ID: [id number]
== END 2021-11-20 15:34 | disposition home or self-care (01) ==
LOC: ER 21:58 → ERHOLD 11-20 00:56 → 4TH 11-20 02:37
PROVIDERS: ADMIT Internal Medicine; ATTEND Internal Medicine
DX: I13.0 Hypertensive heart and chronic kidney disease with heart failure and stage 1 through stage 4 chronic kidney disease, or unspecified chronic kidney disease (principal); I50.23 Acute on chronic systolic (congestive) heart failure; N18.30 Chronic kidney disease, stage 3 unspecified; E11.22 Type 2 diabetes mellitus with diabetic chronic kidney disease; I25.10 Atherosclerotic heart disease of native coronary artery without angina pectoris; I25.2 Old myocardial infarction; J44.9 Chronic obstructive pulmonary disease, unspecified; E78.5 Hyperlipidemia, unspecified; G20 Parkinson's disease; F32.A Depression, unspecified; Z95.810 Presence of automatic (implantable) cardiac defibrillator; Z86.73 Personal history of transient ischemic attack (TIA), and cerebral infarction without residual deficits; Z85.89 Personal history of malignant neoplasm of other organs and systems; Z79.899 Other long term (current) drug therapy; Z20.822 Contact with and (suspected) exposure to COVID-19; Z82.49 Family history of ischemic heart disease and other diseases of the circulatory system; Z83.3 Family history of diabetes mellitus; Z80.9 Family history of malignant neoplasm, unspecified
CPT/HCPCS: 93005; 93306; 85025 ×2; 80048; 36415; 83735 ×2; 84132; 85610; 80061; 80076; 84484 ×3; 80053; 83880; 0240U; 71045; 96374; 99285; J0360; J1940 ×2; J1644; G0378 ×2; 81003; 81015

== ENCOUNTER 2021-11-27 08:53 | Inpatient (IN) | payer OTHER ==
--- OUTSIDE RECORDS SUMMARY | 2021-11-27 08:58 | XMS REPORT | Continuity of Care Document ---
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 9-12 ity of kidney kidney 00:00: [place] disease disease 00 Medical Branch Dyspnea Dyspnea Disease Active 2020-0 Univers 9-11 ity of 00:00: [place] 00 Medical Branch Pneumonia Pneumonia Disease Active 2020-0 Uni vers due to due to -11 ity of infectious infectious [place] organism organism 00 Medica l Branch Elevated Elevated Disease Active Unive rs troponin I troponin I 9-11 it y of level level 00:00: [place] [facility] Acute on Acute on Disease Active Unive rs chronic chronic 9-10 ity of diastolic diastolic 00:00[place] congestive congestive 00 Me dical heart heart Branch failure failure Chest pain Chest pain Disease Active U nivers 7-07 ity of 00:00: [place] [facility] Obesity Obesity Disease Active Overview: Univ ers 4-17 ICD10 ity of 00:00: Diagnosis Term Medical Converting Technician Branch Utility Type II or Type II [...] of demia) demia) 00:00: Diagnosis Term Medical Converting Technician Branch Utility Essential Essential Disease Active Uni [...] Known DA Active U [facility]04 [facility] 00:00: [address] No Known DA Active U [facility] 05-20 [facility] 00:00: [address] NO KNOWN Drug Active Univers ALLERGIE Class ity of S [facility] [place] [facility] Social History Social Habit Start Date Stop Date Quantity Comments Source Tobacco Comment quit 30 years Univer sity of ago [facility] [place] [facility] Alcohol Comment 3 drinks (vodka) Uni versity of nightly [facility] [place] [facility] Sex Assigned At Universit y of [facility] [place] [facility] Exposure to Unable to assess Univers ity of SARS-CoV-2 [facility] (event) Branch Tobacco use and 2020-05-30 2020-05-30 Never used Universit y of exposure 00:00:00 00:00:00 [facility] [place] [facility] Alcohol intake 2020-05-30 2020-05-30 Current drinker Unive rsity of 00:00:00 00:00:00 of alcohol [facility] (finding) [place] Smoking Status Start Date Stop Date Source Never smoker [facility] Medications Ordered Filled Start Stop Current Ordering Indication Dosage Frequency Signature Comments Components Source Medication Medication Date Date Medication? Clinician (SIG) Name Name ASPIRIN 81 2020-0 Yes once daily U nivers MG ORAL 9-16 ity of CHEW 22:57: [address] Branch magnesium 2020-0 Yes 400mg Take 400 Uni vers oxide 9-16 mg by ity of (MAG-OX 22:57: mouth [place] 400) 400 mg 45 daily. Medica l tablet Branch Cyanocobala 2020-[address] Unive rs min 9-16 under the ity of (VITAMIN 22:57: tongue. [place] B-12) 2,500 45 Medical mcg Subl Branch CALCIUM 2020-0 Yes Take by Univer s CARBONATE/V 9-16 mouth. ity of ITAMIN D3 22:57: [place] (VITAMIN 45 Medical D-3 ORAL) [place] MULTIVITAMI 0 Yes Take by Un audra N 9-16 mouth. ity of W-MINERALS/ 22:57: [place] [id number] Medical (CENTRUM Branch SILVER ORAL) ASPIRIN 81 2020-0 Yes once daily U nivers MG ORAL 9-16 ity of CHEW 22:57: [address] Branch magnesium 2020-0 Yes 400mg Take 400 Uni vers oxide 9-16 mg by ity of (MAG-OX 22:57: mouth [place] 400) 400 mg 45 daily. Medica l tablet Branch Cyanocobala 2020-[address] Unive rs min 9-16 under the ity of (VITAMIN 22:57: tongue. [place] B-12) 2,500 45 Medical mcg Subl Branch CALCIUM 2020-0 Yes Take by Univer s CARBONATE/V 9-16 mouth. ity of ITAMIN D3 22:57: [place] (VITAMIN 45 Medical D-3 ORAL) Branch MULTIVITAMI 2020-0 Yes Take by Un audra N 9-16 mouth. ity of W-MINERALS/ 22:57: [place] LUTEIN 45 Medical (CENTRUM Branch SILVER ORAL) primidone 2019-0 2020- No 50mg Take 50 mg U [...] Medical per tablet Branch atorvastati 2020-0 Yes [id number] 20mg Take 1 Univers n 20 mg 9-16 tablet by ity of tablet 00:00: mouth at [place] 00 bedtime. Medical Branch primidone 2020-0 Yes [id number] 50mg Take 1 U nivers 50 mg 9-16 tablet by ity of tablet 00:00: mouth [place] 00 every 12 Medical (twelve) Branch hours. metoprolol 2020-0 Yes [id number] 25mg Take 1 Univers tartrate 25 9-16 tablet by ity of mg tablet 00:00: mouth 2 [place] 00 (two) Medical times Branch daily. sacubitriL- 2020-0 Yes [id number] 1{tbl} Take 1 Univers valsartan 9-16 tablet by ity o f 97-103 mg 00:00: mouth 2 [place] tablet 00 (two) Medical times Branch daily. levoFLOXaci 2020-0 Yes [id number] 500mg Take 1 Univers n 500 mg 9-16 tablet by ity of tablet 00:00: mouth [place] 00 every 24 Medical (twenty-fo Branch ur) hours. acidophilus 2020-0 Yes [id number] 1g Take 1 Univers 100 million 9-16 tablet by ity of cell tablet 00:00: mouth 2 Ab[place] as 00 (two) Medical times Branch daily. atorvastati 2020-0 Yes [id number] 20mg Take 1 Univers n 20 mg 9-16 tablet by ity of tablet 00:00: mouth at [place] 00 bedtime. Medical Branch primidone 2020-0 Yes [id number] 50mg Take 1 U nivers 50 mg 9-16 tablet by ity of tablet 00:00: mouth [place] 00 every 12 Medical (twelve) Branch hours. metoprolol 2020-0 Yes [id number] 25mg Take 1 Univers tartrate 25 9-16 tablet by ity of mg tablet 00:00: mouth 2 [place] 00 (two) Medical times Branch daily. sacubitriL- 2020-0 Yes [id number] 1{tbl} Take 1 Univers valsartan 9-16 tablet by ity o f 97-103 mg 00:00: mouth 2 [place] tablet 00 (two) Medical times Branch daily. levoFLOXaci 2020-0 Yes [id number] 500mg Take 1 Univers n 500 mg 9-16 tablet by ity of tablet 00:00: mouth [place] 00 every 24 Medical (twenty-fo Branch ur) hours. acidophilus 2020-0 Yes [id number] 1g Take 1 Univers 100 million 9-16 tablet by ity of cell tablet 00:00: mouth 2 [place] as 00 (two) Medical times Branch daily. KCL 2020-0 2020- No 20meq 20 mEq, Univers (KLOR-CON 06-03 Oral, ONCE ity of M20) tablet 02:30: 01:54 NOW, 1 [place] as 20 mEq 00 :00 dose, [facility] 06/02/20 at Branch 2130, Routine levoFLOXaci 2020-0 Yes 750mg 750 mg, Un audra n -14 Oral, ity of (LEVAQUIN) 16:00: Q48H, [place] tablet 750 00 First dose Med ical mg on Tue [place] 06/02/20 at 1100, Until Discontinu ed, LICO
Re ason for Anti-Infec tive: Empiric Therapy for Suspected Infection< br>Empiric Therapy Site: Respirator y
Durat ion of therapy: 72 hours Polyethylen 2020-0 2020- No 17g 17 g, Univ ers e Glycol 06-02- Oral, ity of 3350 14:00: 13:59 DAILY, 2 [place] (MIRALAX) 00 :00 doses, Medical powder 17 g First dose Br anch on Tue06/02/20 at 0900, Last dose on Tue06/03/20 at 0900, Routine sennosides 2019-0 Yes 8.6mg 8.6 mg, Uni vers (SENOKOT) 06-02 Oral, BID, ity of tablet 8.6 03:15: First dose [place] mg 00 on [place] [facility] 06/01/20 at Branch 2215, Until Discontinu ed, Routine bisacodyL 2019- 2020- No 10mg 10 mg, Unive rs (DULCOLAX) 06-02 Rectal, ity o f suppository 03:15: 01:59 QHS, 3 [place] as 10 mg 00 :00 doses, Medical First dose Branch on [place] 06/01/20 at 2215, Last dose on Tue06/03/20 at 2100, Routine epoetin 2019- 2020- No 4000U 4,000 Univers renetta-epbx 06-01 Units, ity of (RETACRIT) 19:45: 19:59 Subcutaneo [place] injection 00 :00 us, ONCE, Medic al 4,000 Units [facility], Routine
english faculty member approving Restricted medication : AKILAH ANDRE ANGELES furosemide 2020- No 40mg 40 mg, IV U nivers (LASIX) 06-01 Push, ity of injection 14:00: 17:48 DAILY, [place] 40 mg 00 :15 First dose Medical (after Branch last modificati on) on [place] 06/01/20 at 0900, Until Discontinu ed, LICO ferrous 2019- 2020- No 325mg 325 mg, Unive rs sulfate 06-01 Oral, BID ity of tablet 325 13:00: 01:14 MEALS, [place] mg 00 :51 First dose Medical on [place] Branch 06/01/20 at 0800, Until Discontinu ed, Routine haloperidol 2019-0 Yes 5mg 5 mg, Slow Univers lactate 06-01 IV Push, ity of (HALDOL) 01:16: QHSPRN, [place] injection 5 44 Starting Medi mecca mg Sat Branch 05/31/20 at 2016, Until Discontinu ed, Routine, insomnia, psychosis, agitation piperacilli 2019-0 2020- No 2.25g 2.25 g, IV Univers n-tazobacta 9-13 09-14 Piggyback, i ty of m (ZOSYN) 00:45: 14:59 Q6H ABX, [place] as 2.25 g/50 00 :52 First dose Medi mecca mL RTU on [facility] Branch 05/31/20 at 1945, Until Discontinu ed, 50 mL
Reas on for Anti-Infec tive: Documented Infection< br>Documen moshe Infection Site: Respirator y
Durat ion of Therapy: 10 days KCL 2019- 2020- No 40meq 40 mEq, Univers (KLOR-CON 06-01 Oral, ity of M20) tablet 00:45: 01:23 ONCE, 1 [place] 40 mEq 00 :00 dose, [facility] Medical 05/31/20 at Branch 1945, Routine magnesium 2019- No 2g 2 g, IV Univ ers sulfate in 06-01 Piggyback, it y of water 2 00:45: 01:23 ONCE, 1 [place] gram/50 mL 00 :00 dose, [facility] mecca (4 %) 05/31/20 at [place] infusion 2 1944, g Routine sodium Yes 125mg 125 mg, IV Univ ers ferric 05-31 Piggyback, ity of gluconate 14:00: DAILY, [place] (FERRLECIT) 00 First dose Me dical 125 mg in on [facility] NaCl 0.9% 05/31/20 at (NS) 100 mL 0900, IV Until piggyback Discontinu ed, 100 mL
Facu lty member approving Restricted medication : HELENA KUMAR sulfur 2019-2019- No 5mL 5 mL, Univers hexafluorid 05-30 Intravenou i ty of e microsphr 19:00: 16:30 s, ONCE, 1 [place] (LUMASON) 00 :00 dose, Fri Medic al injection 5 05/30/20 at Br anch mL 1400, Routine
english faculty member approving Restricted medication : VANESSA SHAH vancomycin 2019- 2020- No 15mg/kg 1,000 mg Univers (VANCOCIN) 05-30 (rounded ity of 1,000 mg in 17:15: 14:59 from 990 [place] NaCl 0.9% 00 :52 mg = 15 Medical (NS) 250 mL mg/kg ?66 [facility] VIAL-MATE kg), IV IV Piggyback, piggyback Q24H [...] on Tue Medical tablet 1 05/30/20 at [facility] h tablet 0800, Until Discontinu ed, Routine
english faculty member approving Restricted medication : MEGADC heparin 2019-0 Yes 5000U 5,000 Univers (porcine) 05-30 Units, ity of injection 11:00: Subcutaneo [place] 5,000 Units 00 us, Q8H, Medi [place] First dose Branch on Tue05/30/20 at 0600, Until Discontinu ed, Routine furosemide 2019- No 40mg 40 mg, IV U nivers [...] First dose [place] (VITAMIN C) 00 on Fri Medica l tablet 500 05/30/20 at [facility] mg 0115, Until Discontinu ed, Routine cholecalcif 2020-0 Yes 1000U 1,000 Univ ers shelley 9-11 Units, ity of (vitamin 06:15: Oral, BID, [...] 05-30 Oral, ity of (TYLENOL) 06:01: Q6HPRN, [place] tablet 650 34 Starting Medic al mg Fri Branch 05/30/20 at 0101, Until Discontinu ed, Routine, Temp > 38.5 C ondansetron 2020-0 Yes 4mg 4 mg, Slow Univers (ZOFRAN 05-30 IV Push, ity of (PF)) 06:01: Q6HPRN [place] injection 4 16 Starting Medi [place] mg Fri Branch 05/30/20 at 0101, Until Discontinu ed, Routine, [...] 03 Starting Medica l 25 mL Fri Branch 05/30/20 at 0100, Until Discontinu ed, LICO, Blood Glucose < or = 70 mg/dL and patient is unable to swallow or has mental status changes. primidone 2020-0 Yes 250mg 250 mg, Univ ers (MYSOLINE) 05-30 Oral, Q6H, ity of tablet 250 06:00: First dose [place] mg 00 on [facility] Medical 05/30/20 at Branch 0100, Until Discontinu ed, Routine metoprolol 2020-0 Yes 25mg 25 mg, Unive rs tartrate 11 Oral, BID, ity o f (LOPRESSOR) 06:00: First dose [place] tablet 25 00 on [facility] Medical mg 05/30/20 at Branch 0100, Until Discontinu ed, Routine atorvastati 2020-0 Yes 40mg 40 mg, Univ ers n (LIPITOR) 05-30 Oral, QHS, it y of tablet 40 06:00: First dose [place] mg 00 on [facility] Medical 05/30/20 at Branch 0100, Until Discontinu ed, Routine aspirin 2020-0 Yes 81mg 81 mg, Univers chewable 05-30 Oral, ity of tablet 81 06:00: DAILY, [place] mg 00 First dose Medical on Fri Branch 05/30/20 at 0100, Until Discontinu ed, Routine nitroglycer 2020-0 2020- No 1[in_us 1 Inch, Univers in (NITROL) 05-30 ] Transderma i ty of 2 % 03:15: 03:47 l (Apply [place] ointment 1 00 :00 To Skin), Medi mecca Inch ONCE, 1 Branch dose, [facility] 05/29/20 at 2215, LICO furosemide 2020-0 2020- No 60mg 60 mg, IV U nivers (LASIX) 05-30 Push, ity of injection 03:15: 03:39 ONCE, 1 [place] 60 mg 00 :00 dose, [facility] 05/29/20 at Branch 2215, LICO albuterol 2020-0 2020- No 8{puff} 8 Puff, U nivers (VENTOLIN) 05-30 Inhalation it y of inhaler 8 01:45: 01:04 , ONCE, 1 [place] Puff 00 :00 dose, [place] [facility] 05/29/20 at Branch 2045, LICO
Is this order for a patient with suspected or confirmed COVID-19 infection? Yes atorvastati 2020- No [id number] 20mg Take 1 Univers n (LIPITOR) 01-27 tablet by it y of 20 mg 00:00: 00:00 mouth at [place] tablet 00 :00 bedtime. Medical Branch Insulin 2020- No [id number] 8U inject 8 U nivers Glargine 01-27 [...] ity of (ACCU-CHEK 00:00: [place] WILLIAM) Misc 00 Medical Branch Blood-Gluco Yes Use as Univ ers se Meter 4-07 directed ity of (ACCU-CHEK 00:00: [place] WILLIAM) Misc 00 Medical Branch EXFORGE 2020- No TAKE 1 Univers 10-320 mg 01-03 TABLET BY ity of per tablet 00:00: 00:00 MOUTH [place] 00 :00 EVERY DAY Medical Branch Vital Signs Vital Name Observation Time Observation Value Comments Source Systolic blood 2020-06-04 20:55:00 156 mm[Hg] Univer sity of pressure [facility] Branch Diastolic blood 2020-06-04 20:55:00 85 mm[Hg] Unive rsity of pressure [facility] Branch Respiratory rate 2020-06-04 20:55:00 18 /min Univ ersity of [facility] [place] [facility] Oxygen saturation in 2020-06-04 20:55:00 92 /min University of Arterial blood by [facility] Pulse oximetry Branch Heart rate 2020-06-04 20:00:00 67 /min Universi ty of [facility] [place] [facility] Body temperature 2020-06-04 20:00:00 36.06 Razia Univ ersity of [facility] [place] [facility] Body weight 2020-06-03 06:15:00 65.998 kg Universi ty of [facility] [place] [facility] BMI 2020-06-03 06:15:00 24.21 kg/m2 Universi ty of [facility] [place] [facility] Body height 2020-05-30 06:15:00 165.1 cm Universi ty [facility] Systolic blood 2020-06-04 20:55:00 156 mm[Hg] Univer sity of pressure [facility] [place] [facility] Diastolic blood 2020-06-04 20:55:00 85 mm[Hg] Unive rsity of pressure [facility] [place] [facility] Respiratory rate 2020-06-04 20:55:00 18 /min Univ ersity of [facility] [place] [facility] Oxygen saturation in 2020-06-04 20:55:00 92 /min University of Arterial blood by [facility] Pulse oximetry Branch Heart rate 2020-06-04 20:00:00 67 /min Universi ty of [facility] [place] [facility] Body temperature 2020-06-04 20:00:00 36.06 Razia Univ ersity of [facility] [place] [facility] Body weight 2020-06-03 06:15:00 65.998 kg Universi ty of [facility] [place] [facility] BMI 2020-06-03 06:15:00 24.21 kg/m2 Universi ty of [facility] [place] [facility] Body height 2020-05-30 06:15:00 165.1 cm Universi ty [facility] Procedures Procedure Date / Time Performing Clinician Source Performed POCT GLUCOSE (AUTOMATED) 2020-06-04 21:56:00 Arben Julien Uni versity [facility] POCT GLUCOSE (AUTOMATED) 2020-06-04 16:48:00 Arben Julien Uni versity of [facility] [place] [facility] XR CHEST 1 VW 2020-06-04 13:56:16 Vanessa Shah [facility] POCT GLUCOSE (AUTOMATED) 2020-06-04 12:44:00 Arben Julien Uni versity of [facility] [place] [facility] POCT GLUCOSE (AUTOMATED) 2020-06-04 01:32:00 Arben Julien Uni versity of [facility] [place] [facility] POCT GLUCOSE (AUTOMATED) 2020-06-03 21:46:00 Arben Julien Uni versity of [facility] Branch POCT GLUCOSE (AUTOMATED) 2020-06-03 16:54:00 Arben Julien Uni versity of [facility] [place] [facility] POCT GLUCOSE (AUTOMATED) 2020-06-03 12:50:00 Arben Julien Uni versity of [facility] [place] [facility] COMP. METABOLIC PANEL 2020-06-03 11:37:00 [facility] ([id number]) [facility] CBC WITH DIFF 2020-06-03 11:36:00 Sukhwinder Hughes [facility] POCT GLUCOSE (AUTOMATED) 2020-06-03 01:18:00 Arben Julien Uni versity of [facility] [place] [facility] POCT GLUCOSE (AUTOMATED) 2020-06-02 21:22:00 Arben Julien Uni versity of [facility] [place] MODIFIED BARIUM 2020-06-02 19:00:00 Rufus Goodwin [facility] POCT GLUCOSE (AUTOMATED) 2020-06-02 16:59:00 Arben Julien Uni versity of [facility] [place] [facility] POCT GLUCOSE (AUTOMATED) 2020-06-02 13:26:00 Arben Julien Uni versity of [facility] Branch MAGNESIUM 2020-06-02 10:40:00 Buddy [facility] COMP. METABOLIC PANEL 2020-06-02 10:40:00 Buddy [facility] ([id number]) [facility] CBC WITH DIFF 2020-06-02 10:40:00 Arben Julien [facility] POCT GLUCOSE (AUTOMATED) 2020-06-01 21:51:00 Arben Julien Uni versity of [facility] [place] [facility] POCT GLUCOSE (AUTOMATED) 2020-06-01 17:00:00 Arben Julien [facility] BLOOD CULTURE SCREEN 2020-06-01 15:42:00 Rufus Goodwin [facility] BLOOD CULTURE SCREEN 2020-06-01 15:29:00 Rufus Goodwin [facility] POCT GLUCOSE (AUTOMATED) 2020-06-01 13:18:00 Arben Julien [facility] MAGNESIUM 2020-06-01 10:14:00 Rufus Goodwin [facility] acute hospital COMP. METABOLIC PANEL 2020-06-01 10:14:00 Rufus Goodwin [facility] ([id number]) [facility] ACUTE CARE VENOUS BLOOD 2020-06-01 10:14:00 Arben Julien [facility] CBC WITH DIFF 2020-06-01 10:14:00 Wily [facility] N-TERMINAL PRO-BNP 2020-06-01 10:14:00 Wily hilda [facility] POCT GLUCOSE (AUTOMATED) 2020-06-01 00:42:00 Wily hilda [facility] POCT GLUCOSE (AUTOMATED) 2020-05-31 21:51:00 Wily hilda [facility] AMMONIA, PLASMA 2020-05-31 17:01:00 Rufus Goodwin [facility] acute [facility] POCT GLUCOSE (AUTOMATED) 2020-05-31 16:59:00 Arben Julien [facility] URIC ACID 2020-05-31 08:32:00 [facility]ily [facility] MAGNESIUM 2020-05-31 08:32:00 Wily [facility] TROPONIN I 2020-05-31 08:32:00 Wily [facility] COMP. METABOLIC PANEL 2020-05-31 08:32:00 Wily hilda [facility] ([id number]) [facility] CBC WITH DIFF 2020-05-31 08:32:00 [facility] N-TERMINAL PRO-BNP 2020-05-31 08:32:00 Wily hilda [facility] POCT GLUCOSE (AUTOMATED) 2020-05-31 00:32:00 Arben Julien [facility] POCT GLUCOSE (AUTOMATED) 2020-05-30 20:44:00 Wily hilda [facility] POCT GLUCOSE (AUTOMATED) 2020-05-30 17:04:00 Arben Julien [facility] TROPONIN I 2020-05-30 16:25:00 Wily hilda [facility] acute hospital ECHO ROUTINE W/DOPPLER 2020-05-30 16:08:22 Arben Julien [facility] POCT GLUCOSE (AUTOMATED) 2020-05-30 13:56:00 Arben Julien [facility] CT THORAX WO CONTRAST 2020-05-30 10:26:42 Arben Julien [facility] SEDIMENTATION RATE 2020-05-30 09:51:00 Wily hilda [facility] CBC WITH DIFF 2020-05-30 09:51:00 Wily [facility] URIC ACID 2020-05-30 08:34:00 Wily [facility] MAGNESIUM 2020-05-30 08:34:00 Wily [facility] CORTISOL AM 2020-05-30 08:34:00 [facility]ily [facility] TROPONIN I 2020-05-30 08:34:00 Wily [facility] COMP. METABOLIC PANEL 2020-05-30 08:34:00 Wily hilda [facility] ([id number]) [facility] IRON PANEL 2020-05-30 08:34:00 [facility] N-TERMINAL PRO-BNP 2020-05-30 08:34:00 Wily hilda [facility] LEGIONELLA URINARY 2020-05-30 08:29:00 Wily hilda [facility] ANTIGEN TST [facility] SODIUM, URINE RANDOM 2020-05-30 08:28:00 Wily hilda [facility] PROTEIN CREAT RATIO 2020-05-30 08:28:00 Wily hilda [facility] URINE RANDOM [facility] PNEUMOCOCCAL ANTIGEN 2020-05-30 08:27:00 Arbne Julien [facility] OSMOLALITY URINE 2020-05-30 08:25:[address] [facility] UREA NITROGEN, URINE 2020-05-30 08:25:00 Arben Juline [facility] RANDOM [facility] URINE CULTURE 2020-05-30 08:24:00 Arben Julien [facility] acute hospital OSMOLALITY SERUM 2020-05-30 07:08:[address] [facility] VITAMIN B12, LEVEL 2020-05-30 07:08:00 Arben Julien [facility] FOLATE 2020-05-30 07:08:00 Arben Julien [facility] acute hospital PROTHROMBIN TIME / INR 2020-05-30 07:08:00 Arben Julien [facility] MYCOPLASMA PNEUMONIAE 2020-05-30 07:08:00 Arben Julien [facility] ANTIBODY, IGM [facility] VITAMIN D, 25-OH 2020-05-30 07:08:[address] [facility] PROCALCITONIN 2020-05-30 07:08:00 Arben Julien [facility] acute hospital BLOOD CULTURE SCREEN 2020-05-30 07:07:00 Arben Julien [facility] BLOOD CULTURE WORKUP 2020-05-30 07:07:00 Arben Julien [facility] BLOOD CULTURE WORKUP 2020-05-30 07:07:00 Arben Julien [facility] GRAM POSITIVE BLOOD 2020-05-30 07:07:00 [facility] PROBE-AEROBIC RESPIRATORY PANEL BY PCR 2020-05-30 05:20:00 Arben Julien [facility] COVID-19 (PCR MOLECULAR 2020-05-30 05:20:00 Arben Julien [facility] TESTING) [facility] EXTERNAL PROVIDER 2020-05-30 05:01:00 Doctor Unassigned, No Univ [facility] RECORDS Name Medical Branch URINALYSIS 2020-05-30 03:39:[address] [facility] XR CHEST 1 VW 2020-05-30 01:45:[address] [facility] CT HEAD WO CONTRAST 2020-05-30 01:34:53 Trice Kraft [facility] EKG-12 LEAD 2020-05-30 01:08:[address] [facility] AC ABG + LACTIC ACID 2020-05-30 01:06:00 Trice Kraft [facility] POCT GLUCOSE(AGE 2020-05-30 01:04:00 Trice Kraft [facility] >30DAYS) [facility] POCT GLUCOSE (AUTOMATED) 2020-05-30 01:03:00 [facility] PHOSPHORUS 2020-05-30 00:59:00 [facility] CREATINE KINASE 2020-05-30 00:59:00 [facility]ily [facility] URIC ACID 2020-05-30 00:59:00 [facility]ily [facility] MAGNESIUM 2020-05-30 00:59:00 [facility] FERRITIN SERUM 2020-05-30 00:59:00 [facility]ily [facility] TROPONIN I 2020-05-30 00:59:[address] [facility] THYROID STIMULATING 2020-05-30 00:59:00 Wily hilda [facility] HORMONE [facility] COMP. METABOLIC PANEL 2020-05-30 00:59:00 Trice Kraft [facility] ([id number]) [facility] LIPID PANEL 2020-05-30 00:59:00 Wily hilda [facility] ([id number])(TOTAL Medical [place] CHOLESTEROL, TRIGLYCERIDES, HDL) CBC WITH DIFF 2020-05-30 00:59:[address] [facility] GLYCOSYLATED HEMOGLOBIN 2020-05-30 00:59:00 Arben Julien [facility] (A1C) [facility] Branch N-TERMINAL PRO-BNP 2020-05-30 00:59:00 Trice Kraft [facility] [place] [facility] COVID-19 (ID NOW RAPID 2020-05-30 00:59:00 EricaharrietNadia bennettbenedict Lauryn [facility] TESTING) Medical Branch EKG-12 LEAD 2020-05-30 00:39:[address] [facility] NOTICE OF PRIVACY 2020-05-29 23:34:11 Doctor Unassigned, No [facility] PRACTICES Name Medical Branch CONSENT/REFUSAL FOR 2020-05-29 23:33:17 [facility], [facility] Name Medical Branch Encounters Start End Encounter Admission Attending Care Care Encounter Source Date/Time Date/Time Type Type Clinicians Facility Department ID 2020-06-05 2020-06-05 Transition Mary Kay Cerna 1.2.840.114 [id number] 00:00:00 00:00:00 of Care Cody Stover 350.1.13.10 [place] 4.2.7.2.686 [id number] 2020-06-05 2020-06-05 Transition Mary Kay Cerna 1.2.840.114 [id number] [facility] 00:00:00 00:00:00 of Care Cody Stover 350.1.13.10 ity of [place] 4.2.7.2.686 [facility] [id number] [facility] 403 Branch 2020-05-29 2020-06-04 [facility] 1.2.840. 114 [id number] 18:50:00 17:57:00 Encounter Arben Julien 350.1.13.10 [place] 4.2.7.2.686 [place] [id number] 2020-05-29 2020-06-04 [facility] 1.2.840. 114 [id number] Univers 18:50:00 17:57:00 Encounter Arben Julien 350.1.13.10 ity of [place] 4.2.7.2.686 [facility] [id number] [facility] 080 Branch 2020-05-29 2020-05-29 Emergency X [facility] ERT [id number] Univers 18:28:00 18:28:00 [place] Medical [facility] Results Test Description Test Time Test Comments Results Result Comments Source POCT GLUCOSE (AUTOMATED) 2020-06-04 21:59:00 Test Item Value Reference Range Interpretation Comme nts POCT GLU (test code = 7864691333) 133 mg/dL 70-110 H Lab Interpretation (test code = 51559-5) Abnormal [facility]2020-06-04 17:13:00 Test Item Value Reference Range Interpretation Comments POCT GLU (test code = 8305826009) 154 mg/dL 70-110 H Lab Interpretation (test code = Abnormal 17733-5) [facility] CHEST 1 [id number] 14:00:56HISTORY: Follow-up of CHF. TECHNIQUE: AP view [...] ifany, residual pulmonary edema seen at this time.[facility], Radiant Results Inft User - 06/04/2020 9:02 [...] ifany, residual pulmonary edema seen at this time.[facility] GLUCOSE (AUTOMATED)2020-06-04 13:19:00 Test Item Value Reference Range Interpretation Comments POCT GLU (test code = 4632713714) 98 mg/dL 70-110 Lab Interpretation (test code = Normal 79023-2) [facility])2020-06-04 01:35:00 Test Item Value Reference Range Interpretation Comments POCT GLU (test code = 9675590280) 192 mg/dL 70-110 H Lab Interpretation (test code = Abnormal 55247-0) [facility] GLUCOSE (AUTOMATED)2020-06-03 21:51:00 Test Item Value Reference Range Interpretation Comments POCT GLU (test code = 5717537972) 98 mg/dL 70-110 Lab Interpretation (test code = Normal 18348-8) [facility] GLUCOSE (AUTOMATED)2020-06-03 17:28:00 Test Item Value Reference Range Interpretation Comments POCT GLU (test code = 6918798730) 195 mg/dL 70-110 H Lab Interpretation (test code = Abnormal 48978-0) [facility] GLUCOSE (AUTOMATED)2020-06-03 13:43:00 Test Item Value Reference Range Interpretation Comments POCT GLU (test code = 5120127010) 98 mg/dL 70-110 Lab Interpretation (test code = Normal 65231-6) [facility] WITH [id number] 13:10:00 Test Item Value Reference Range Interpretation [...] RDW-SD (test code = 46.4 fL 38.5-51.6 16517-0) RDW-CV (test code = 13.7 % 12.1-15.4 788-0) PLT (test code = See_Comment L [Automated 777-3) message] The sy stem which generated this result transmitted reference range : 150 - 328 10*3/ ?L. The reference r martin was not used to interpret this result as normal/abnormal . MPV (test code = 10.5 fL 9.8-13 08638-2) NRBC/100 WBC (test See_Comment [Automat ed code = 2218846993) message] The system which generated this result transmitted reference range : 0.0 - 10.0 /100 WBCs. The refer ence range was not u sed to interpret th is result as normal/abnormal . NRBC x10^3 (test code <0.01 See_Comment [Auto mated = 9809363060) message] The s ystem which generated this result transmitted reference range : 10*3/?L. The reference range was not used to interpret this result as normal/abnormal . GRAN MAT (NEUT) % 55.9 % (test code = 770-8) IMM GRAN % (test code 0.40 % = 7316672840) LYMPH % (test code = 16.5 % 736-9) MONO % (test code = 12.4 % 5905-5) EOS % (test code = 14.0 % 713-8) BASO % (test code = 0.8 % 706-2) GRAN MAT x10^3(ANC) 1.35 10*3/uL 1.99-6.95 L (test code = 0457305198) IMM GRAN x10^3 (test <0.03 0-0.06 code = 1656518624) LYMPH x10^3 (test code 0.40 10*3/uL 1.09-3.23 L = 731-0) MONO x10^3 (test code 0.30 10*3/uL 0.36-1.02 L = 742-7) EOS x10^3 (test code = 0.34 10*3/uL 0.06-0.53 711-2) BASO x10^3 (test code <0.03 0.01-0.09 = 704-7) Lab Interpretation Abnormal (test code = 88093-8) [facility] METABOLIC PANEL (46642)2020-06-03 12:46:00 Test Item Value Reference Range Interpretation Comments NA (test code = 136 mmol/L 135-145 3978910219) K (test code = 3.9 mmol/L 3.5-5 7821726306) CL (test code = 100 mmol/L 98-108 1684396204) CO2 TOTAL (test code = 27 mmol/L 23-31 6797993742) AGAP (test code = 2-16 5678699031) BUN (test code = 37 mg/dL 7-23 H 5068058623) GLUCOSE (test code = 87 mg/dL 70-110 7194039550) CREATININE (test code = 1.85 mg/dL 0.6-1.25 H 7456294298) TOTAL BILI (test code = 0.4 mg/dL 0.1-1.5 2235534984) CALCIUM (test code = 9.4 mg/dL 8.6-10.6 6409722714) T PROTEIN (test code = 6.3 g/dL 6.3-8.2 8686691740) ALBUMIN (test code = 3.2 g/dL 3.5-5 L 9809828811) ALK PHOS (test code = 58 U/L 34-122 7700722655) ALTv (test code = 22 U/L 5-50 1742-6) AST(SGOT) (test code = 31 U/L 13-40 9726456632) eGFR Calculation mL/min/1.73m2 (Non-) (test code = 9271628145) eGFR Calculation mL/min/1.73m2 () (test code = 3168638279) EMIR (test code = EMIR) Association of [...] tests). Lab Interpretation Abnormal (test code = 26377-3) [facility] GLUCOSE (AUTOMATED)2020-06-03 01:56:00 Test Item Value Reference Range Interpretation Comments POCT GLU (test code = 1486627521) 152 mg/dL 70-110 H Lab Interpretation (test code = Abnormal 88136-8) [facility] BARIUM SWALLOW, (COOKIE)2020-06-02 23:24:43 Flash laryngeal [...] nectar thick liquid, puree or jewelry solids. [facility], Radiant Results Inft User- 06/02/2020 6:25 PM [...] to the speech pathologist's report for further details.[facility] GLUCOSE (AUTOMATED)2020-06-02 21:24:00 Test Item Value Reference Range Interpretation Comments POCT GLU (test code = 129 mg/dL 70-110 H Notifi ed Provider 1216849636) Lab Interpretation (test Abnormal code = 76442-8) [facility] GLUCOSE (AUTOMATED)2020-06-02 17:12:00 Test Item Value Reference Range Interpretation Comments POCT GLU (test code = 159 mg/dL 70-110 H Notifi ed Provider [id number]) Lab Interpretation (test Abnormal code = 80525-0) [facility] WITH [id number] 14:34:00 Test Item Value Reference Range Interpretation [...] RDW-SD (test code = 46.7 fL 38.5-51.6 03656-1) RDW-CV (test code = 13.9 % 12.1-15.4 788-0) PLT (test code = See_Comment [Automated 777-3) message] The sy stem which generated this result transmitted reference range : 150 - 328 10*3/ ?L. The reference r martin was not used to interpret this result as normal/abnormal . MPV (test code = 10.4 fL 9.8-13 84205-7) NRBC/100 WBC (test See_Comment [Automat ed code = 2922079135) message] The system which generated this result transmitted reference range : 0.0 - 10.0 /100 WBCs. The refer ence range was not u sed to interpret th is result as normal/abnormal . NRBC x10^3 (test code <0.01 See_Comment [Auto mated = 0128684054) message] The s ystem which generated this result transmitted reference range : 10*3/?L. The reference range was not used to interpret this result as normal/abnormal . GRAN MAT (NEUT) % 58.9 % (test code = 770-8) IMM GRAN % (test code 0.40 % = 6458717559) LYMPH % (test code = 11.3 % 736-9) MONO % (test code = 10.8 % 5905-5) EOS % (test code = 17.3 % 713-8) BASO % (test code = 1.3 % 706-2) GRAN MAT x10^3(ANC) 1.36 10*3/uL 1.99-6.95 L (test code = 3746350931) IMM GRAN x10^3 (test <0.03 0-0.06 code = 6947487016) LYMPH x10^3 (test code 0.26 10*3/uL 1.09-3.23 L = 731-0) MONO x10^3 (test code 0.25 10*3/uL 0.36-1.02 L = 742-7) EOS x10^3 (test code = 0.40 10*3/uL 0.06-0.53 711-2) BASO x10^3 (test code 0.03 10*3/uL 0.01-0.09 = 704-7) Lab Interpretation Abnormal (test code = 80752-6) [facility])2020-06-02 13:45:00 Test Item Value Reference Range Interpretation Comments POCT GLU (test code = 8357591270) 105 mg/dL 70-110 Lab Interpretation (test code = Normal 10784-7) [facility] CenterBLOOD CULTURE [id number] 13:39:00 Test Item Value Reference Range Interpretation Comments Blood Culture Staphylococcus Organism elvia ntified Workup (test epidermidis by DNA probeFor code = 600-7) susceptibility results, refer to culture # - [id number] Gram stain Gram positive cocci Anaerobi c Bottle (test code = 664-3) [facility]. METABOLIC PANEL (95667)2020-06-02 13:10:00 Test Item Value Reference Range Interpretation Comments NA (test code = 133 mmol/L 135-145 L 9649316187) K (test code = 3.4 mmol/L 3.5-5 L 3939654376) CL (test code = 96 mmol/L 98-108 L 4854446033) CO2 TOTAL (test code = 28 mmol/L 23-31 8227048830) AGAP (test code = 2-16 4200305603) BUN (test code = 34 mg/dL 7-23 H 5993491019) GLUCOSE (test code = 135 mg/dL 70-110 H 6472529733) CREATININE (test code = 1.83 mg/dL 0.6-1.25 H 7453988252) TOTAL BILI (test code = 0.4 mg/dL 0.1-1.3 9529055439) CALCIUM (test code = 9.4 mg/dL 8.6-10.6 0531192628) T PROTEIN (test code = 6.0 g/dL 6.3-8.2 L 3775847999) ALBUMIN (test code = 3.1 g/dL 3.5-5 L 9148136982) ALK PHOS (test code = 52 U/L 34-122 7495567075) ALTv (test code = 25 U/L 5-50 1742-6) AST(SGOT) (test code = 31 U/L 13-40 5770596035) eGFR Calculation mL/min/1.73m2 (Non-) (test code = 0166258554) eGFR Calculation mL/min/1.73m2 () (test code = 4652413149) EMIR (test code = EMIR) Association of [...] tests). Lab Interpretation Abnormal (test code = 16830-4) [facility] CenterMAGNESIUM2020-09-14 13:10:00 Test Item Value Reference Range Interpretation Comments MAGNESIUM (test code = 4578991955) 1.8 mg/dL 1.7-2.4 Lab Interpretation (test code = Normal 26177-7) [facility] CenterMYCOPLASMA PNEUMONIAE ANTIBODY, [id number] 11:34:00 Test Item Value Reference Range Interpretation [...] an 12 months post-infection. Performed By: YUMIKO amado[address] [place] [address] [id number] aboratory Director: Julisa Choi MD [Aut omated message] The sy stem which generated this result transmit moshe reference range : <=0.76. The reference r martin was not used to int erpret this result as normal/abnormal . [facility] CenterBLST[facility] CULTURE [id number] 22:31:00 Test Item Value Reference Range Interpretation Comments Blood Culture-Aerobic Culture positive. No growth AA P revious (test code = 41970-6) See Blood prelim inary Culture Workup verified resu lt for additional was Culture I n information. Progress on 05/30/2020 at 03 19 CDT Blood Culture positive. No growth AA Previous Culture-Anaerobic See Blood preliminar y (test code = 24470-1) Culture Workup veri fied result for additional was Culture I n information. Progress on 05/30/2020 at 07 01 CDT Lab Interpretation Abnormal (test code = 01296-4) [facility]PO[facility] GLUCOSE (AUTOMATED)2020-06-01 21:59:00 Test Item Value Reference Range Interpretation Comments POCT GLU (test code = 2315115838) 101 mg/dL 70-110 Lab Interpretation (test code = Normal 31913-6) [facility] GLUCOSE (AUTOMATED)2020-06-01 17:53:00 Test Item Value Reference Range Interpretation Comments POCT GLU (test code = 1902547993) 184 mg/dL 70-110 H Lab Interpretation (test code = Abnormal 45757-3) [facility] CenterBLOOD CULTURE [id number] 17:20:00 Test Item Value Reference Range Interpretation Comments Blood Culture-Aerobic Culture positive. No growth AA P revious (test code = 42325-0) See Blood prelim inary Culture Workup verified resu lt for additional was Culture I n information. Progress on 05/30/2020 at 03 19 CDT Blood Culture positive. No growth AA Previous Culture-Anaerobic See Blood preliminar y (test code = 45340-6) Culture Workup veri fied result for additional was Culture I n information. Progress on 05/30/2020 at 07 CDT Lab Interpretation Abnormal (test code = 52744-3) [facility] GLUCOSE (AUTOMATED)2020-06-01 13:22:00 Test Item Value Reference Range Interpretation Comments POCT GLU (test code = 1431103201) 109 mg/dL 70-110 Lab Interpretation (test code = Normal 50602-1) [facility] WITH [id number] 11:12:00 Test Item Value Reference Range Interpretation [...] RDW-SD (test code = 46.0 fL 38.5-51.6 47397-1) RDW-CV (test code = 13.8 % 12.1-15.4 788-0) PLT (test code = See_Comment L [Automated 777-3) message] The sy stem which generated this result transmitted reference range : 150 - 328 10*3/ ?L. The reference r martin was not used to interpret this result as normal/abnormal . MPV (test code = 10.3 fL 9.8-13 13942-3) NRBC/100 WBC (test See_Comment [Automat ed code = 5035414722) message] The system which generated this result transmitted reference range : 0.0 - 10.0 /100 WBCs. The refer ence range was not u sed to interpret th is result as normal/abnormal . NRBC x10^3 (test code <0.01 See_Comment [Auto mated = 0665376454) message] The s ystem which generated this result transmitted reference range : 10*3/?L. The reference range was not used to interpret this result as normal/abnormal . GRAN MAT (NEUT) % 71.9 % (test code = 770-8) IMM GRAN % (test code 0.30 % = 2449017327) LYMPH % (test code = 8.0 % 736-9) MONO % (test code = 10.5 % 5905-5) EOS % (test code = 8.4 % 713-8) BASO % (test code = 0.9 % 706-2) GRAN MAT x10^3(ANC) 2.32 10*3/uL 1.99-6.95 (test code = 7956003163) IMM GRAN x10^3 (test <0.03 0-0.06 code = 9843721267) LYMPH x10^3 (test code 0.26 10*3/uL 1.09-3.23 L = 731-0) MONO x10^3 (test code 0.34 10*3/uL 0.36-1.02 L = 742-7) EOS x10^3 (test code = 0.27 10*3/uL 0.06-0.53 711-2) BASO x10^3 (test code 0.03 10*3/uL 0.01-0.09 = 704-7) Lab Interpretation Abnormal (test code = 14152-7) [facility] CenterN-TERMINAL [id number] 11:07:00 Test Item Value Reference Range Interpretation Comments NT-proBNP (test code 82095 pg/mL See_Comment H [Autom ated = 3700439412) message] The system which generated this result transmitted reference range : <=450. The reference range was not used to interpret this result as normal/abnormal . EMIR (test code = EMIR) Biotin has been reported to cause a negative bias, interpret results relative to patient's use of biotin. Lab Interpretation Abnormal (test code = 37112-9) [facility] CenterCOMP. METABOLIC PANEL (72560)2020-06-01 11:03:00 Test Item Value Reference Range Interpretation Comments NA (test code = 136 mmol/L 135-145 6901166137) K (test code = 3.9 mmol/L 3.5-5 6731042423) CL (test code = 97 mmol/L 98-108 L 3108874679) CO2 TOTAL (test code = 30 mmol/L 23-31 7332585421) AGAP (test code = 2-16 9127962292) BUN (test code = 34 mg/dL 7-23 H 3226160948) GLUCOSE (test code = 112 mg/dL 70-110 H 3141530152) CREATININE (test code = 1.81 mg/dL 0.6-1.25 H 4452797264) TOTAL BILI (test code = 0.5 mg/dL 0.1-1.1 0448697799) CALCIUM (test code = 9.5 mg/dL 8.6-10.6 8802907030) T PROTEIN (test code = 6.2 g/dL 6.3-8.2 L 4574640500) ALBUMIN (test code = 3.2 g/dL 3.5-5 L 7066139370) ALK PHOS (test code = 58 U/L 34-122 5294004148) ALTv (test code = 32 U/L 5-50 1742-6) AST(SGOT) (test code = 38 U/L 13-40 5232764597) eGFR Calculation mL/min/1.73m2 (Non-) (test code = 8968228353) eGFR Calculation mL/min/1.73m2 () (test code = 7471564189) EMIR (test code = EMIR) Association of [...] tests). Lab Interpretation Abnormal (test code = 67391-8) [facility] CenterMAGNESIUM2020-09-13 11:03:00 Test Item Value Reference Range Interpretation Comments MAGNESIUM (test code = 0846244917) 2.0 mg/dL 1.7-2.4 Lab Interpretation (test code = Normal 89025-3) [facility] CARE VENOUS BLOOD [id number] 10:21:00 Test Item Value Reference Range Interpretation Comments PH (test code = 7.32-7.42 2729232963) PCO2 GIFTY (test code = See_Comment [Auto mated message] The 8917194208) system which ge nerated this result transmit moshe reference range : 41 - 51 mmHg. The refer ence range was not used to interpret this result as normal/abnormal . PO2 GIFTY (test code = See_Comment [Autom ated message] The 8048213002) system which ge nerated this result transmit moshe reference range : 25 - 40 mmHg. The refer ence range was not used to interpret this result as normal/abnormal . HCO3 GIFTY (test code = See_Comment [Auto mated message] The 8746774497) system which ge nerated this result transmit moshe reference range : 24 - 28 mEq/L. The refe rence range was not used to interpret this result as normal/abnormal . AC VBE(BEAKER) (test mEq/L code = 2998981704) [facility] GLUCOSE (AUTOMATED)2020-06-01 01:53:00 Test Item Value Reference Range Interpretation Comments POCT GLU (test code = 4005312985) 124 mg/dL 70-110 H Lab Interpretation (test code = Abnormal 58238-6) [facility] GLUCOSE (AUTOMATED)2020-05-31 22:35:00 Test Item Value Reference Range Interpretation Comments POCT GLU (test code = 6648180120) 105 mg/dL 70-110 Lab Interpretation (test code = Normal 03702-5) [facility] GLUCOSE (AUTOMATED)2020-05-31 17:52:00 Test Item Value Reference Range Interpretation Comments POCT GLU (test code = 1352279484) 106 mg/dL 70-110 Lab Interpretation (test code = Normal 88230-6) [facility] CenterAMMONIA, [id number] 17:33:00 Test Item Value Reference Range Interpretation Comments AMMONIA (test code = 9740199402) <9 9-33 L Lab Interpretation (test code = Abnormal 70834-6) [facility] CenterGRAM POSITIVE BLOOD PATHOGENS DNA PUPAT-[id number] 14:44:00 Test Item Value Reference Range Interpretation Comments Coagulase Negative Positive Negative A Staphylococcus (test code = 21813-2) EMIR (test code = EMIR) Coagulase negative [...] contact the Antimicrobial Stewardship Program with questions.Pager: ?[phone] Testing included eleven identification and three resistance marker targets. Lab Interpretation Abnormal (test code = 71602-7) [facility] CenterPOCT GLUCOSE (AUTOMATED)2020-05-31 13:09:00 Test Item Value Reference Range Interpretation Comments POCT GLU (test code = 4171462483) 154 mg/dL 70-110 H Lab Interpretation (test code = Abnormal 07048-4) [facility] CenterURINE [id number] 12:11:00 Test Item Value Reference Range Interpretation Comments URINE CULTURE (test No aerobic growth (< code = 630-4) 1000 CFU/mL) [facility] CenterN-TERMINAL [id number] 11:51:00 Test Item Value Reference Range Interpretation Comments NT-proBNP (test code 07253 pg/mL See_Comment H [Autom ated = 3942794792) message] The system which generated this result transmitted reference range : <=450. The reference range was not used to interpret this result as normal/abnormal . EMIR (test code = EMIR) Biotin has been reported to cause a negative bias, interpret results relative to patient's use of biotin. Lab Interpretation Abnormal (test code = 84255-9) [facility] CenterURIC [id number] 11:25:00 Test Item Value Reference Range Interpretation Comments URIC ACID (test code = 9092925791) 9.0 mg/dL 3.6-8 H Lab Interpretation (test code = Abnormal 76979-7) [facility] WITH [id number] 11:02:00 Test Item Value Reference Range Interpretation [...] RDW-SD (test code = 47.7 fL 38.5-51.6 27437-2) RDW-CV (test code = 14.0 % 12.1-15.4 788-0) PLT (test code = See_Comment L [Automated 777-3) message] The sy stem which generated this result transmitted reference range : 150 - 328 10*3/ ?L. The reference r martin was not used to interpret this result as normal/abnormal . MPV (test code = 10.5 fL 9.8-13 42395-7) NRBC/100 WBC (test See_Comment [Automat ed code = 9741101818) message] The system which generated this result transmitted reference range : 0.0 - 10.0 /100 WBCs. The refer ence range was not u sed to interpret th is result as normal/abnormal . NRBC x10^3 (test code <0.01 See_Comment [Auto mated = 1931177201) message] The s ystem which generated this result transmitted reference range : 10*3/?L. The reference range was not used to interpret this result as normal/abnormal . GRAN MAT (NEUT) % 81.0 % (test code = 770-8) IMM GRAN % (test code 0.40 % = 1677213958) LYMPH % (test code = 4.8 % 736-9) MONO % (test code = 11.5 % 5905-5) EOS % (test code = 1.7 % 713-8) BASO % (test code = 0.6 % 706-2) GRAN MAT x10^3(ANC) 4.23 10*3/uL 1.99-6.95 (test code = 5331617227) IMM GRAN x10^3 (test <0.03 0-0.06 code = 9870038452) LYMPH x10^3 (test code 0.25 10*3/uL 1.09-3.23 L = 731-0) MONO x10^3 (test code 0.60 10*3/uL 0.36-1.02 = 742-7) EOS x10^3 (test code = 0.09 10*3/uL 0.06-0.53 711-2) BASO x10^3 (test code 0.03 10*3/uL 0.01-0.09 = 704-7) Lab Interpretation Abnormal (test code = 25284-7) [id number] 10:45:00 Test Item Value Reference Range Interpretation Comments TROPONIN I (test 0.167 ng/mL See_Comment H [Automated code = 2637164480) message] The system which generated this result [...] ? Lab Interpretation Abnormal (test code = 76970-5) [facility] CenterCOM. METABOLIC PANEL (18922)2020-05-31 10:35:00 Test Item Value Reference Range Interpretation Comments NA (test code = 133 mmol/L 135-145 L 9919846418) K (test code = 3.4 mmol/L 3.5-5 L 8955201338) CL (test code = 95 mmol/L 98-108 L 0982566632) CO2 TOTAL (test code = 29 mmol/L 23-31 3663099807) AGAP (test code = 2-16 5848130423) BUN (test code = 36 mg/dL 7-23 H 6575781624) GLUCOSE (test code = 136 mg/dL 70-110 H 8826097457) CREATININE (test code = 1.71 mg/dL 0.6-1.25 H 5634624272) TOTAL BILI (test code = 0.8 mg/dL 0.1-1.3 5880943713) CALCIUM (test code = 9.4 mg/dL 8.6-10.6 8927591574) T PROTEIN (test code = 6.5 g/dL 6.3-8.2 5014719673) ALBUMIN (test code = 3.4 g/dL 3.5-5 L 1076750177) ALK PHOS (test code = 59 U/L 34-122 3494717898) ALTv (test code = 35 U/L 5-50 1742-6) AST(SGOT) (test code = 42 U/L 13-40 H 2979632657) eGFR Calculation mL/min/1.73m2 (Non-) (test code = 5311468000) eGFR Calculation mL/min/1.73m2 () (test code = 7399560127) EMIR (test code = EMIR) Association of [...] tests). Lab Interpretation Abnormal (test code = 35891-1) [facility] CenterMAGNESIUM2020-09-12 10:35:00 Test Item Value Reference Range Interpretation Comments MAGNESIUM (test code = 9424799318) 1.4 mg/dL 1.7-2.4 L Lab Interpretation (test code = Abnormal 31576-7) [facility]PO[facility] GLUCOSE (AUTOMATED)2020-05-30 21:17:00 Test Item Value Reference Range Interpretation Comments POCT GLU (test code = 2464064431) 105 mg/dL 70-110 Lab Interpretation (test code = Normal 21147-2) [facility] CenterPNEUMOCOCCAL [id number] 19:20:00 Test Item Value Reference Range Interpretation Comments S. pneumoniae antigen Positive Negative A (test code = 7642221934) EMIR (test code = EMIR) S. pneumoniae vaccine may give false positive results in urine with this assay in the 48 hours following vaccination. Lab Interpretation (test Abnormal code = 23890-5) [facility] CenterLEGIONELLA URINARY ANTIGEN [id number] 19:20:00 Test Item Value Reference Range Interpretation Comments Legionella Urinary Negative Negative Antigen (test code = 6499252275) EMIR (test code = EMIR) Negative for [...] test. Lab Interpretation (test Normal code = 06771-7) [facility] CenterCORTISOL [id number] 18:48:00 Test Item Value Reference Range Interpretation Comments SHAYY AM (test code = 23.8 ug/dL 4.5-23 H 6504183576) EMIR (test code = EMIR) Biotin has been reported to cause a positive bias, interpret results relative to patient's use of biotin. Lab Interpretation (test Abnormal code = 04714-4) [facility] CenterPOCT GLUCOSE (AUTOMATED)2020-05-30 17:17:00 Test Item Value Reference Range Interpretation Comments POCT GLU (test code = 4898156779) 117 mg/dL 70-110 H Lab Interpretation (test code = Abnormal 71323-0) [facility] CenterTROPONIN [id number] 17:14:00 Test Item Value Reference Range Interpretation Comments TROPONIN I (test 0.222 ng/mL See_Comment H [Automated code = 0647778934) message] The system which generated this result [...] ? Lab Interpretation Abnormal (test code = 69108-7) [facility] CenterOSMOLALITY [id number] 16:53:00 Test Item Value Reference Range Interpretation Comments OSMO U (test code = See_Comment [Automa moshe message] 0905677113) The system Retidoc generated this result transmitted ref erence range: 50-1,100 mOsm/kg. The re ference range was not u sed to interpret this result as normal/abnor mal. Lab Interpretation (test Normal code = 84020-0) [facility] CenterVITAMIN D, [id number] 16:43:00 Test Item Value Reference Range Interpretation Comments VIT D 25OH (test code = 29 ng/mL 25-80 82381-8) EMIR (test code = EMIR) Deficiency: <20 ng/mLInsufficiency : 20-24 ng/mLOptimal: 25-80 ng/mL Lab Interpretation (test Normal code = 12740-0) [facility] CenterUREA NITROGEN, URINE [id number] 15:44:00 Test Item Value Reference Range Interpretation Comments UREA N UR (test code = 3275629787) 114 mg/dL [facility] CenterCT THORAX WO [id number] 15:23:12 1. ?Pulmonary edema with moderate volume [...] Preliminary Report Dictated by Resident: Iam Mcguire ?MD. Chon, have reviewed this study and agree with [...] sagittal MPR images were generated and reviewed.(Display gtzjl-ao-zaoi = 35 cm) FINDINGS: Lower neck/thyroid: Unremarkable. [...] sagittal MPR images were generated and reviewed.(Display hynwr-zx-dhqy = 35 cm)FINDINGS:Lower neck/thyroid: Unremarkable.Lungs: Centrilobular septal [...] reviewed this study and agree with theabove report.[facility] CenterPO[facility]SE (AUTOMATED) 2020-05-30 14:53:00 Test Item Value Reference Range Interpretation Comments POCT GLU (test code = 6221841904) 100 mg/dL 70-110 Lab Interpretation (test code = Normal 03653-3) [facility] CenterVITAMIN B12, [id number] 13:07:00 Test Item Value Reference Range Interpretation Comments VIT B12 (test code = 412 pg/mL 240-930 9121340172) EMIR (test code = EMIR) Biotin has been reported to cause a positive bias, interpret results relative to patient's use of biotin. Lab Interpretation (test Normal code = 21690-4) [facility] CenterFOLATE2020-09-11 13:07:00 Test Item Value Reference Range Interpretation Comments FOLATE SER (test code = 8.4 ng/mL 3-20 Biot in has been 4988312503) reported to cau se a positive bias, interpret resul ts relative to patient's use o f biotin. Lab Interpretation (test Normal code = 07137-3) [facility] CenterCORONAVIRUS COVID-19 [id number] 12:49:00 Test Item Value Reference Range Interpretation Comments SARS-CoV-2 PCR (test Not Detected Not Detected code = 41720-7) EMIR (test code = EMIR) Cepheid Xpert ?Xpress SARS-CoV-2 Assay is a rapid, real-time RT-PCR test intended for the qualitative detection of nucleic acid from the SARS-CoV-2 in nasopharyngeal (CLERICAL ADMINISTRATIVE ASSISTANT) specimens. It is used under Emergency Use [...] indicated. Lab Interpretation Normal (test code = 98100-4) [facility] CenterRESPIRATORY PANEL BY [id number] 12:44:00 Test Item Value Reference Range Interpretation Comments Adenovirus (test code = Negative Negative 54644-7) Coronavirus HKU1 (test Negative Negative code = 67281-2) Coronavirus NL63 (test Negative Negative code = 67110-6) Coronavirus 229E (test Negative Negative code = 14881-7) Coronavirus OC43 (test Negative Negative code = 61245-6) Human Metapneumovirus Negative Negative (test code = 24236-9) Human Negative Negative Rhinovirus/Enterovirus (test code = 28977-5) Influenza A (test code = Negative Negative 22536-0) Influenza B (test code = Negative Negative 86523-2) Parainfluenza Virus 1 Negative Negative (test code = 45294-3) Parainfluenza Virus 2 Negative Negative (test code = 38909-2) Parainfluenza Virus 3 Negative Negative (test code = 94161-8) Parainfluenza Virus 4 Negative Negative (test code = 13231-4) Respiratory Syncytial Negative Negative Virus (test code = 78765-0) Bordetella parapertussis Negative Negative (test code = 84006-7) Bordetella pertussis Negative Negative (test code = 33480-9) Chlamydia pneumoniae Negative Negative (test code = 45199-1) Mycoplasma pneumoniae Negative Negative (test code = 07672-8) EMIR (test code = EMIR) Negative:A negative result does not rule-out infection. ?This assay does not test for all potential infectious agents. ? Positive:A positive test result does not necessarily indicate the presence of viable organism. ? Lab Interpretation (test Normal code = 36316-4) [facility] CenterPROCALCITONIN2020-09-11 12:14:00 Test Item Value Reference Range Interpretation Comments Procalcitonin (test 0.06 ng/mL <0.07 code = 2998316267) EMIR (test code = EMIR) INTERPRETATION OF [...] lung abscess/empyema. For further information please refer to:[email or web address] Lab Interpretation Normal (test code = 13615-0) [facility] CenterOSMOLALITY [id number] 11:49:00 Test Item Value Reference Range Interpretation Comments OSMOLALITY (test code = See_Comment [Au tomated message] 3403498664) The system Retidoc generated this result transmitted ref erence range: 278 - 30 5 mOsm/kg. The re ference range was not u sed to interpret this result as normal/abnor mal. Lab Interpretation (test Normal code = 67984-3) [facility] CenterN-TERMINAL [id number] 11:19:00 Test Item Value Reference Range Interpretation Comments NT-proBNP (test code 02190 pg/mL See_Comment H [Autom ated = 6090208577) message] The system which generated this result transmitted reference range : <=450. The reference range was not used to interpret this result as normal/abnormal . EMIR (test code = EMIR) Biotin has been reported to cause a negative bias, interpret results relative to patient's use of biotin. Lab Interpretation Abnormal (test code = 27112-2) [facility] CenterSEDIMENTATION [id number] 11:01:00 Test Item Value Reference Range Interpretation Comments ESR (test code = See_Comment H [Automated message] 3921246122) The system Retid[employer] generated this result transmitted ref erence range: 0 - 10 m m/HR. The reference r martin was not used to interpret this result as normal/abnor mal. Lab Interpretation (test Abnormal code = 23053-0) [facility] CenterTROPONIN [id number] 10:57:00 Test Item Value Reference Range Interpretation Comments TROPONIN I (test 0.233 ng/mL See_Comment H [Automated code = 5470120245) message] The system which generated this result transmitted reference range : <=0.034. The reference range was not used to interpret this result as normal/abnormal . MEIR (test code = Equal or Less than [...] ? Lab Interpretation Abnormal (test code = 51003-7) [facility] CenterIRON [id number] 10:53:00 Test Item Value Reference Range Interpretation Comments IRON (test code = 4297476949) 37 ug/dL 50-160 L TIBC (test code = 8080224662) 259 ug/dL 250-410 % FE SAT (test code = 0909238094) 14 % 20-50 L Lab Interpretation (test code = Abnormal 40949-8) [facility] CenterCOM. METABOLIC PANEL (22199)2020-05-30 10:44:00 Test Item Value Reference Range Interpretation Comments NA (test code = 135 mmol/L 135-145 8133294706) K (test code = 4.3 mmol/L 3.5-5 5678189436) CL (test code = 98 mmol/L 98-108 0747348171) CO2 TOTAL (test code = 26 mmol/L 23-31 9532914511) AGAP (test code = 2-16 3508212753) BUN (test code = 29 mg/dL 7-23 H 5623943517) GLUCOSE (test code = 127 mg/dL 70-110 H 7097233655) CREATININE (test code = 1.38 mg/dL 0.6-1.25 H 5333680639) TOTAL BILI (test code = 0.9 mg/dL 0.1-1.3 9515295828) CALCIUM (test code = 9.4 mg/dL 8.6-10.6 3040162881) T PROTEIN (test code = 6.6 g/dL 6.3-8.2 0437590539) ALBUMIN (test code = 3.7 g/dL 3.5-5 8857645283) ALK PHOS (test code = 65 U/L 34-122 7077001754) ALTv (test code = 28 U/L 5-50 1742-6) AST(SGOT) (test code = 42 U/L 13-40 H 6730545036) eGFR Calculation mL/min/1.73m2 (Non-) (test code = 3203055847) eGFR Calculation mL/min/1.73m2 () (test code = 4871348720) EMIR (test code = EMIR) Association of [...] tests). Lab Interpretation Abnormal (test code = 43859-3) [facility] CenterMAGNESIUM2020-09-11 10:44:00 Test Item Value Reference Range Interpretation Comments MAGNESIUM (test code = 7995001925) 1.4 mg/dL 1.7-2.4 L Lab Interpretation (test code = Abnormal 03930-9) [facility] CenterURIC [id number] 10:44:00 Test Item Value Reference Range Interpretation Comments URIC ACID (test code = 8363925217) 7.8 mg/dL 3.6-8 Lab Interpretation (test code = Normal 12989-6) [facility] CenterPROTEIN CREAT RATIO URINE [id number] 10:29:00 Test Item Value Reference Range Interpretation Comments T. PROT U (test code = 104 mg/dL 2888-6) CREAT U (test code = 14.4 mg/dL 9319271574) Protein/Creatinine Ratio 0.0-2.0 H Urine (test code = 9530219896) EMIR (test code = EMIR) Random Urine Total Protein Reference Ranges Random Specimen: ? Less than 10 mg/dLFirst Morning Specimen: ? ?Less than 20 mg/dL ? Lab Interpretation (test Abnormal code = 38911-4) [facility] CenterCBC WITH [id number] 10:28:00 Test Item Value Reference Range Interpretation Comments WBC (test code = See_Comment [Automated 7204-2) message] The sy stem which generated this result transmitted reference range : 4.20 - 10.70 10*3/?L. The reference range was not used to interpret this result as normal/abnormal . RBC (test code = See_Comment L [Automated 299-8) message] The sy stem which generated this [...] RDW-SD (test code = 47.6 fL 38.5-51.6 28709-2) RDW-CV (test code = 14.2 % 12.1-15.4 788-0) PLT (test code = See_Comment L [Automated 777-3) message] The sy stem which generated this result transmitted reference range : 150 - 328 10*3/ ?L. The reference r martin was not used to interpret this result as normal/abnormal . MPV (test code = 10.5 fL 9.8-13 29998-5) NRBC/100 WBC (test See_Comment [Automat ed code = 9735310178) message] The system which generated this result transmitted reference range : 0.0 - 10.0 /100 WBCs. The refer ence range was not u sed to interpret th is result as normal/abnormal . NRBC x10^3 (test code <0.01 See_Comment [Auto mated = 8387997030) message] The s ystem which generated this result transmitted reference range : 10*3/?L. The reference range was not used to interpret this result as normal/abnormal . GRAN MAT (NEUT) % 83.1 % (test code = 770-8) IMM GRAN % (test code 0.40 % = 6250927832) LYMPH % (test code = 3.7 % 736-9) MONO % (test code = 11.8 % 5905-5) EOS % (test code = 0.4 % 713-8) BASO % (test code = 0.6 % 706-2) GRAN MAT x10^3(ANC) 4.52 10*3/uL 1.99-6.95 (test code = 8274845879) IMM GRAN x10^3 (test <0.03 0-0.06 code = 2533766223) LYMPH x10^3 (test code 0.20 10*3/uL 1.09-3.23 L = 731-0) MONO x10^3 (test code 0.64 10*3/uL 0.36-1.02 = 742-7) EOS x10^3 (test code = <0.03 0.06-0.53 L 711-2) BASO x10^3 (test code 0.03 10*3/uL 0.01-0.09 = 704-7) Lab Interpretation Abnormal (test code = 14155-6) [facility] CenterSODIUM, URINE [id number] 10:25:00 Test Item Value Reference Range Interpretation Comments NA URINE (test code = 0714962962) 123 mmol/L [facility] CenterPROTHROMBIN TIME / [id number] 08:09:00 Test Item Value Reference Range Interpretation Comments PROTIME PATIENT (test See_Comment [Auto mated message] code = 5964-2) The system Minutta generated this result transmitted ref erence range: 12.0 - 1 4.7 Seconds. The re ference range was not u sed to interpret this result as normal/abnor mal. INR (test code = 6301-6) Nor mal INR <1.1; Warfarin Therap eutic range 2.0 to 3. 0 or 2.5 to 3.5, dep ending upon the indica tions. Lab Interpretation (test Normal code = 34517-5) [facility] CenterGLYCOSYLATED HEMOGLOBIN (A1C)2020-05-30 07:33:00 Test Item Value Reference Range Interpretation Comments HGB A1C (test code = 5.4 % 4-6 4548-4) EMIR (test code = EMIR) %A1C (NGSP) Interpretation (ADA)4.8-5.6 ? ? Normal or (Non-Diabetic Range)5.7-6.4 ? ? Increased Risk (Pre-Diabetic)>6.5 ?Diabetes Indicated Lab Interpretation Normal (test code = 61116-0) [facility] CenterLIPID PANEL (75449)(TOTAL CHOLESTEROL, TRIGLYCERIDES, HDL)2020-05-30 07:20:00 Test Item Value Reference Range Interpretation Comments CHOL (test code = 174 mg/dL 120-200 4869370105) HDL (test code = 37 mg/dL >40 L 3572514844) HDLC RATIO (test code = See_Comment [Au tomated message] 4922309510) The system Retidoc generated this result transmit moshe reference range : <=5.0. The refe rence range was not u sed to interpret th is result as normal/abnormal . TRIG (test code = 85 mg/dL 30-170 7017700737) LDL CHOL (test code = 120 mg/dL See_Comment [Auto mated message] 33987-3) The system Retidoc generated this result transmit moshe reference range : <=160. The refe rence range was not u sed to interpret th is result as normal/abnormal . VLDL (test code = 17 mg/dL 5-60 1995174043) Lab Interpretation (test Abnormal code = 72605-8) [facility] CenterCREATINE [id number] 07:19:00 Test Item Value Reference Range Interpretation Comments CK (test code = 2633671233) 88 U/L 33-194 Lab Interpretation (test code = Normal 43771-7) [facility] CenterURIC [id number] 07:19:00 Test Item Value Reference Range Interpretation Comments URIC ACID (test code = 6443093403) 7.9 mg/dL 3.6-8 Lab Interpretation (test code = Normal 78894-8) [facility] CenterFERRITIN [id number] 06:48:00 Test Item Value Reference Range Interpretation Comments FERRITIN (test code = 73.2 ng/mL 18-464 8980950968) EMIR (test code = EMIR) Biotin has been reported to cause a negative bias, interpret results relative to patient's use of biotin. Lab Interpretation (test Normal code = 98670-5) [facility] CenterTHYROID STIMULATING [id number] 06:46:00 Test Item Value Reference Range Interpretation Comments TSH (test code = See_Comment [Automated message] 1503565782) The system Retidoc generated this result transmitted ref erence range: 0.45 - 4 .70 mIU/L. The refe rence range was not u sed to interpret this result as normal/abnor mal. Lab Interpretation (test Normal code = 86046-9) [facility] CenterMAGNESIUM2020-09-11 06:19:00 Test Item Value Reference Range Interpretation Comments MAGNESIUM (test code = 0293192139) 1.6 mg/dL 1.7-2.4 L Lab Interpretation (test code = Abnormal 55999-4) [facility] CenterPHOSPHORUS2020-09-11 06:19:00 Test Item Value Reference Range Interpretation Comments PHOSPHORUS (test code = 6533605883) 2.9 mg/dL 2.5-5 Lab Interpretation (test code = Normal 73111-6) [facility] CenterURINALYSIS2020-09-11 04:26:00 Test Item Value Reference Range Interpretation Comments APPEARANCE (test code = Clear Clear 5093744633) COLOR (test code = Yellow Yellow 4603957510) PH (test code = 4.8-8.0 3594332207) SP GRAVITY (test code = 1.003-1.030 7387079176) GLU U QUAL (test code = Normal Normal 9821775439) BLOOD (test code = 1+ Negative A 3425707659) KETONES (test code = Negative Negative 2509173073) PROTEIN (test code = 500 mg/dL Negative A 2887-8) UROBILIN (test code = Normal Normal 6860978914) BILIRUBIN (test code = Negative Negative 4500060866) NITRITE (test code = Negative Negative 0795484472) LEUK MARLENA (test code = Negative Negative 0915673985) RBC/HPF (test code = See_Comment H [Autom ated message] 1258642805) The system Retidoc generated this result transmit moshe reference range : 0 - 3 HPF. The refe rence range was not u sed to interpret th is result as normal/abnormal . WBC/HPF (test code = See_Comment [Autom ated message] 2247939500) The system Retidoc generated this result transmit moshe reference range : 0 - 5 HPF. The refe rence range was not u sed to interpret th is result as normal/abnormal . BACTERIA (test code = Few Negative A 3831659427) MUCOUS (test code = Slight Negative LPF A 6414561777) HYAL CAST (test code = See_Comment H [Aut omated message] 0047975296) The system Retidoc generated this result transmit moshe reference range : <=2 LPF. The refere nce range was not u sed to interpret th is result as normal/abnormal . GRAN CASTS (test code = See_Comment H [Au tomated message] 6886479828) The system Retidoc generated this result transmit moshe reference range : <=1 LPF. The refere nce range was not u sed to interpret th is result as normal/abnormal . Lab Interpretation (test Abnormal code = 16713-6) [facility] CenterXR CHEST 1 [id number] 03:33:16 Multifocal interstitial and airspace opacities are concerning forbronchopneumonia. These findings can also be seen with atypical infectiousprocess, including COVID-19 pneumonia. Disclaimer: Generally,the findings on chest imaging in COVID-19 are notspecific, and overlap with other infections, including influenza, H1N1,SARS and MERS.According to the Centers for Disease Control (CDC) and recent statement ofthe [employer], viral testing remains the [...] Disease Control (CDC) and recent statement ofthe [employer], viral testing remains the only specificmethod of diagnosis. Confirmation with the viral test is required, even ifradiologic findings are suggestive of COVID-[address]Preliminary Report Dictated by Resident: Darvin Duarte, Ming Lara MD., have reviewed this study and agree with the abovereport.[facility] CenterCOVID-19 (ID NOW RAPID TESTING)2020-05-30 01:54:00 Test Item Value Reference Range Interpretation Comments SARS-CoV-2 Rapid ID NOW Not Detected Not Detected (test code = 24171-0) EMIR (test code = EMIR) ID NOW COVID-19 Assay is an isothermal nucleic acid amplification test intended for the qualitative detection of nucleic acid from SARS-CoV-2 viral RNA in nasopharyngeal (CLERICAL ADMINISTRATIVE ASSISTANT) specimens. It is used under Emergency Use [...] indicated. Lab Interpretation Normal (test code = 17001-0) [facility] CenterTROPONIN [id number] 01:52:00 Test Item Value Reference Range Interpretation Comments TROPONIN I (test 0.148 ng/mL See_Comment H [Automated code = 8368443492) message] The system which generated this result [...] ? Lab Interpretation Abnormal (test code = 68813-1) [facility] CenterN-TERMINAL [id number] 01:49:00 Test Item Value Reference Range Interpretation Comments NT-proBNP (test code 19137 pg/mL See_Comment H [Autom ated = 1237410854) message] The system which generated this result transmitted reference range : <=450. The reference range was not used to interpret this result as normal/abnormal . EMIR (test code = EMIR) Biotin has been reported to cause a negative bias, interpret results relative to patient's use of biotin. Lab Interpretation Abnormal (test code = 11346-3) [facility] CenterCOM. METABOLIC PANEL (62084)2020-05-30 01:41:00 Test Item Value Reference Range Interpretation Comments NA (test code = 135 mmol/L 135-145 0965736879) K (test code = 4.0 mmol/L 3.5-5 9872041861) CL (test code = 98 mmol/L 98-108 3014230266) CO2 TOTAL (test code = 27 mmol/L 23-31 9627055421) AGAP (test code = 2-16 1561363985) BUN (test code = 27 mg/dL 7-23 H 6084203647) GLUCOSE (test code = 143 mg/dL 70-110 H 7647025713) CREATININE (test code = 1.51 mg/dL 0.6-1.25 H 8300760335) TOTAL BILI (test code = 0.6 mg/dL 0.1-1.8 9436984310) CALCIUM (test code = 9.5 mg/dL 8.6-10.6 3289309220) T PROTEIN (test code = 6.9 g/dL 6.3-8.2 6341200105) ALBUMIN (test code = 3.9 g/dL 3.5-5 4800076107) ALK PHOS (test code = 78 U/L 34-122 4431576036) ALTv (test code = 29 U/L 5-50 1742-6) AST(SGOT) (test code = 37 U/L 13-40 3041952709) eGFR Calculation mL/min/1.73m2 (Non-) (test code = 1273500711) eGFR Calculation mL/min/1.73m2 () (test code = 5475327768) EMIR (test code = EMIR) Association of [...] tests). Lab Interpretation Abnormal (test code = 98055-5) [facility] HEAD WO [id number] 01:40:13 No acute intracranial hemorrhage or mass [...] ethmoid air cell. [facility], Radiant Results Inft 05/29/2020 8:52 PM CDTCT HEAD WO CONTRASTHISTORY: [...] ethmoid aircell.IMPRESSIONNo acute intracranial hemorrhage or mass effect.[facility] GLUCOSE (AUTOMATED)2020-05-30 01:23:00 Test Item Value Reference Range Interpretation Comments POCT GLU (test code = 7314770144) 130 mg/dL 70-110 H Lab Interpretation (test code = Abnormal 21460-9) [facility] WITH [id number] 01:22:00 Test Item Value Reference Range Interpretation Comments WBC (test code = See_Comment [Automated 9390-2) message] The sy stem which generated this result transmitted reference range : 4.20 - 10.70 10*3/?L. The reference range was not used to interpret this result as normal/abnormal . RBC (test code = See_Comment L [Automated 599-8) message] The sy stem which generated this [...] RDW-SD (test code = 46.8 fL 38.5-51.6 96759-1) RDW-CV (test code = 13.9 % 12.1-15.4 788-0) PLT (test code = See_Comment [Automated 777-3) message] The sy stem which generated this result transmitted reference range : 150 - 328 10*3/ ?L. The reference r martin was not used to interpret this result as normal/abnormal . MPV (test code = 9.9 fL 9.8-13 76215-7) NRBC/100 WBC (test See_Comment [Automat ed code = 2255342253) message] The system which generated this result transmitted reference range : 0.0 - 10.0 /100 WBCs. The refer ence range was not u sed to interpret th is result as normal/abnormal . NRBC x10^3 (test code <0.01 See_Comment [Auto mated = 3984539500) message] The s ystem which generated this result transmitted reference range : 10*3/?L. The reference range was not used to interpret this result as normal/abnormal . GRAN MAT (NEUT) % 82.3 % (test code = 770-8) IMM GRAN % (test code 0.50 % = 6221078302) LYMPH % (test code = 5.5 % 736-9) MONO % (test code = 10.6 % 5905-5) EOS % (test code = 0.6 % 713-8) BASO % (test code = 0.5 % 706-2) GRAN MAT x10^3(ANC) 5.23 10*3/uL 1.99-6.95 (test code = 0021359658) IMM GRAN x10^3 (test 0.03 10*3/uL 0-0.06 code = 0448471325) LYMPH x10^3 (test code 0.35 10*3/uL 1.09-3.23 L = 731-0) MONO x10^3 (test code 0.67 10*3/uL 0.36-1.02 = 742-7) EOS x10^3 (test code = 0.04 10*3/uL 0.06-0.53 L 711-2) BASO x10^3 (test code 0.03 10*3/uL 0.01-0.09 = 704-7) Lab Interpretation Abnormal (test code = 66331-5) [facility] [id number] 01:14:00 Test Item Value Reference Range Interpretation Comments PH (test code = 2) 7.35-7.45 PCO2 (test code = See_Comment [Automat ed [id number]) message] The sy stem which generated this result transmitted reference range : 35 - 45 mmHg. The reference range was not used to interpret this result as normal/abnormal . PO2 (test code = See_Comment H [Automated [id number]) message] The sy stem which generated this result transmitted reference range : 80 - 100 mmHg. The reference range was not used to interpret this result as normal/abnormal . HCO3 (test code = See_Comment [Automate d [id number]) message] The sy stem which generated this result transmitted reference range : 22 - 26 mEq/L. The reference range was not used to interpret this result as normal/abnormal . BE (test code = See_Comment [Automated [id number]) message] The sy stem which generated this result transmitted reference range : -3.0 - 3.0 mEq/ L. The reference r martin was not used to interpret this result as normal/abnormal . LACTIC ACID (test code 1.10 mmol/L = 3064520661) Lab Interpretation Abnormal (test code = 14184-3) [facility](AGE >30DAYS)2020-05-30 01:04:00 Test Item Value Reference Range Interpretation Comments POCT Glu (age>30days) (test code = 130 mg/dL 70-110 A 3342) Lab Interpretation (test code = Abnormal 98786-7) [facility]"
[2021-11-27 09:18] LABS: Absolute Lymphocytes (CBC) 0.4 K/uL (0.7-4.9); Hematocrit 31.6 % (39.6-49.0); Lymphocytes % 5.1 % (15.3-44.8); MPV 6.9 fL (7.6-11.3); RBC Red Blood Cell Count 3.56 M/uL (4.33-5.43)
[2021-11-27] MEDS ORDERED: NITROGLYCERIN 0.4 MG/TAB SL ONE (09:23)
[2021-11-27] MEDS ORDERED: FUROSEMIDE 100 MG/10 ML VIAL IV ONE (09:23)
--- NOTE | 2021-11-27 09:48 | RAD REPORT ---
EXAM DESCRIPTION: RAD - Chest Single View - 11/27/2021 9:40 am CLINICAL HISTORY: DYSPNEA COMPARISON: Chest Single View dated 11/19/2021; Chest Single View dated 07/08/2021; Chest Single View dated 06/23/2021; Chest Single View dated 06/15/2021 FINDINGS: Lines: Pacemaker/ICD Lungs: Increased prominence of the pulmonary vasculature. Pleural: No significant pleural effusions or pneumothorax. Cardiac: Cardiomegaly. Bones: No acute fractures. Other: IMPRESSION: Findings most likely representing pulmonary edema which has worsened since 11/19/2021. P neumonia less likely but not entirely excluded.
[2021-11-27] MEDS ORDERED: NITROGLYCERIN 1 GM PKT TD ONE (09:55)
[2021-11-27 10:01] LABS: Albumin 3.5 g/dL (3.4-5.0); Bilirubin Direct 0.2 mg/dL (0-0.2); Bilirubin Total 0.8 mg/dL (0.2-1.0); Protein, Total 7.2 g/dL (6.4-8.2)
[2021-11-27 10:03] LABS: Magnesium 1.9 mg/dL (1.8-2.4); Potassium 4.9 mmol/L (3.5-5.1)
[2021-11-27 10:06] LABS: Troponin High Sensitivity 92.8 pg/mL (<58.9)
[2021-11-27 10:08] LABS: Blood Morphology Comment NOT SEEN (NOT SEEN); Platelet Estimate ADEQ; White Blood Cell Scan OK (OK)
--- NOTE | 2021-11-27 10:30 | ER ---
Nurse's Notes [facility] Name: Jimbo Cat Age: 81 yrs Sex: Male : 1940 Arrival Date: 11/27/2021 Time: 08:55 Bed 26 Private MD: Diagnosis: Acute respiratory failure;Prerenal Azotemia;Acute on chronic systolic (congestive) heart failure;Hypertensive heart disease with heart failure Presentation: 11/27 09:10 Chief complaint: Patient states: Chest pressure that started this morning around 2 AM ww with shortness of breath. Coronavirus screen: Client denies travel out of the [place] in the last 14 days. Ebola Screen: Patient denies travel to an Ebola-affected area in the 21 days before illness onset. Initial Sepsis Screen: Does the patient meet any 2 criteria? No. Patient's initial sepsis screen is negative. Does the patient have a suspected source of infection? No. Patient's initial sepsis screen is negative. Risk Assessment: Do you want to hurt yourself or someone else? Patient reports no desire to harm self or others. Onset of symptoms was November 27, 2021. 09:10 Method Of Arrival: EMS: [facility] 09:10 Acuity: SYDNIE 3 Triage Assessment: 09:13 General: Appears uncomfortable, Behavior is cooperative. Pain: Complains of pain in ww chest. EENT: No signs and/or symptoms were reported regarding the EENT system. Neuro: Level of Consciousness is awake, alert, obeys commands, Oriented to person, place, time, situation, Speech is normal. Cardiovascular: Patient's skin is warm and dry. Edema is 1+ to left ankle, left foot, right ankle and right foot Rhythm is Chest pain quality is pressure, began 4 hours prior to arrival. Respiratory: Airway is patent Respiratory effort is labored, Respiratory pattern is regular, symmetrical. GI: No signs and/or symptoms were reported involving the gastrointestinal system. Abdomen is non-distended, Abd is soft and non tender. : No signs and/or symptoms were reported regarding the genitourinary system. Derm: No signs and/or symptoms reported regarding the dermatologic system. Skin is intact, is thin. Historical: - Allergies: :13 No Known Allergies; ww - Home Meds: :13 albuterol sulfate 2.5 mg /3 mL (0.083 %) inhalation nebu [Active]; Furosemide Oral once ww daily [Active]; Entresto 49-51 mg oral tab 1 tab 2 times per day [Active]; atorvastatin 40 mg oral tab 1 tab once daily [Active]; amiodarone 400 mg Oral tab 1 tab once daily [Active]; metoprolol succinate 25 mg oral CSpX 1 cap once daily [Active]; - PMHx: 09:13 Congestive heart failure; diabetes mellitus; Myocardial infarction; ww - PSHx: 09:13 Appendectomy; defibrillator; ww - Immunization history:: Adult Immunizations up to date. - Social history:: Smoking status: Patient denies any tobacco usage or history of. Screenin:17 Abuse screen: Denies threats or abuse. Denies injuries from another. Nutritional ww screening: No deficits noted. Tuberculosis screening: No symptoms or risk factors identified. Fall Risk None identified. Assessment: 09:30 Reassessment: No changes from previously documented assessment. Patient and/or family ww updated on plan of care and expected duration. Pain level reassessed. see triage assessment. 09:48 Respiratory: Airway is patent Respiratory effort is labored, Respiratory pattern is ww tachypnea Breath sounds with crackles Stridor noted. 09:50 Reassessment: Worsening respiratory distress. Faisal CHIU notified and at bedside Verbal ww order to give nitro 0.4mg SL x 3, 1 inch nitro paste to see if patient will have improvements. 10:05 Reassessment: No changes from previously documented assessment. APPLE Malone notified of ww patient still not feeling like he can breath and pressure across chest. BiPAP ordered. Respiratory notifed. 10:13 Reassessment: Bipap placed on patient 10/5 respirations 12 with O2 100%. ww 10:45 Reassessment: Dr. Crabtree at bedside, verbal order of Morphine 2mg IVP once. ww 11:00 Reassessment: No changes from previously documented assessment. Patient and/or family ww updated on plan of care and expected duration. Pain level reassessed. Patient is alert, oriented x 3, equal unlabored respirations, skin warm/dry/pink. Symptoms have mildly improved. Respirations slowing down. Patient states symptoms have improved. 11:30 Reassessment: patient states he is starting to feel better, lights dimmed, call light ww at bedside and urinal at bedside. Patient states symptoms have improved. 12:25 Reassessment: Patient and/or family updated on plan of care and expected duration. Pain ww level reassessed. Patient is alert, oriented x 3, equal unlabored respirations, skin warm/dry/pink. spouse updated with plan of care. Jing [phone] Patient states feeling better. Patient states symptoms have improved. 13:26 Reassessment: No changes from previously documented assessment. Patient and/or family ww updated on plan of care and expected duration. Pain level reassessed. patient states he is feeling like he is having trouble breathing. Faisal CHIU notified. New orders received and placed. 14:30 Reassessment: Patient appears in no apparent distress at this time. No changes from ww previously documented assessment. Patient and/or family updated on plan of care and expected duration. Pain level reassessed. Vital Signs: 09:10 BP 194 / 92; Pulse 60; Resp 23; Pulse Ox 97% on 2 lpm NC; Weight 70.31 kg; Height 5 ft. ww 7 in. (170.18 cm); Pain 4/10; 09:50 BP 202 / 87; Pulse 71; Resp 23; Pulse Ox 98% on 3 lpm NC; ww 09:55 BP 183 / 85; Pulse 60; Resp 24; Pulse Ox 100% on 3 lpm NC; ww 10:00 BP 168 / 84; Pulse 60; Resp 27; Pulse Ox 99% on 3 lpm NC; ww 10:30 BP 183 / 97; Pulse 60; Resp 21; Pulse Ox 100% on BiPAP; ww 11:00 BP 175 / 93; Pulse 60; Resp 16; Pulse Ox 100% on BiPAP; ww 11:30 BP 176 / 97; Pulse 60; Resp 18; Pulse Ox 100% on BiPAP; ww 12:00 BP 181 / 97; Pulse 60; Resp 16; Pulse Ox 100% on BiPAP; ww 12:28 BP 194 / 61; Pulse 72; Resp 16; Pulse Ox 100% on BiPAP; ww 13:30 BP 191 / 99; Pulse 60; Resp 20; Pulse Ox 100% on BiPAP; ww 13:47 BP 172 / 85; Pulse 60; Resp 22; Temp 98.4; Pulse Ox 100% on BiPAP; ww 15:06 BP 171 / 89; Pulse 80; Resp 21; Pulse Ox 100% on BiPAP; ww 09:10 Body Mass Index 24.28 (70.31 kg, 170.18 cm) ww 09:50 Faisal CHIU at bedside Nitro administered ww 09:55 Nitro administered ww ED Course: 08:55 Patient arrived in ED. em1 08:55 Faisal Bridges PA is PHCP. jr8 08:55 Boogie Shah MD is Attending Physician. jr8 09:10 Sheila oCdy, RN is Primary Nurse. ww 09:13 Triage completed. ww 09:13 Arm band placed on right wrist. ww 09:17 Patient has correct armband on for positive identification. Bed in low position. Call ww light in reach. Side rails up X 1. bondactor machine operator on. Pulse ox on. NIBP on. 09:17 Initial lab(s) drawn, by me, sent to lab. EKG done, by ED staff, reviewed by Boogie Shah MD. Maintain EMS IV. Dressing intact. Good blood return noted. Site clean \T\ dry. Gauge \T\ site: 20 right forearm. 09:40 XRAY Chest (1 view) In Process Unspecified. EDMS 10:11 Notified Nurse Practitioner and/or Physician Manager Government of a critical lab result(s), jl7 Troponin 92.80. 10:28 Parveen Crabtree MD is Hospitalizing Provider. jr8 10:37 BIPAP Sent. ww 13:37 EKG done, by ED staff, reviewed by Faisal CHIU. jw7 Administered Medications: 09:19 Not Given (patient recieved in route with EMS): Aspirin Chewable Tablet 324 mg PO once; ww 81 mg tablets x 4 09:25 Drug: Lasix (furosemide) 60 mg Route: IVP; Site: right forearm; ww 09:50 Drug: Nitroglycerin 0.4 mg Route: Sublingual; ww 09:55 Drug: Nitro-Bid (nitroglycerin) Ointment 2 % 1 inches Route: Transdermal; Site: anterior chest wall; 10:59 CANCELLED (Physician Discretion): morphine 2 mg IM once; RASS on ADMIN: Combtv4, Very ww Agttd3, Agttd2, Rstlss1, AlertClm0, Drwsy-1, Lt Sdtn-2, Mod Sdtn-3, Dp Sdtn-4, UnArsble-5 11:01 CANCELLED (wrong orderr): morphine 2 mg IVP once; (PAIN>8) RASS on ADMN: Combtv4, Very jl7 Agttd3, Agttd2, Rstlss1, AlertClm0, Drwsy-1, LtSdtn-2, ModSdtn-3, DpSdtn-4, UnArsble-5 x2 11:02 Drug: morphine 2 mg Route: IVP; Site: right forearm; ww 13:40 Drug: Ativan (LORazepam) 0.5 mg Route: IVP; Site: right forearm; ww 13:42 Drug: hydrALAZINE 10 mg Route: IVP; Site: right forearm; ww Output: 10:29 Urine: 325ml (Voided); Total: 325ml. jw7 12:24 Urine: 800ml (Voided); Total: 1125ml. ww 16:13 Urine: 1200ml (Voided); Total: 2325ml. ww Outcome: 10:29 Decision to Hospitalize by Provider. janie 22:01 Patient left the ED. mw Signatures: Dispatcher [employer] EDMS Zehra Mckinney RN RN mw Martinez, Eric emFaisal Gibbs PA PA jr8 Nilton Son RN RN jlSheila Cruz RN RN ww Waits, Jodi jw7 Corrections: (The following items were deleted from the chart) 11:01 10:59 morphine 2 mg IVP in right forearm ww jl7
--- NOTE | 2021-11-27 10:30 | EDPHYS ---
Physician Documentation [facility] Name: Jimbo Cat Age: 81 yrs Sex: Male : 1940 Arrival Date: 11/27/2021 Time: 08:55 Bed 26 Private MD: ED Physician Boogie Shah HPI: 11/27 09:45 This 81 yrs old Male presents to ER via EMS with complaints of Chest Pain. jr8 09:45 The patient or guardian reports chest pain that is located primarily in the substernal jr8 area. Onset: acutely, this morning. The pain does not radiate. Associated signs and symptoms: Pertinent positives: shortness of breath. The chest pain is described as a heaviness. Duration: The patient or guardian reports a single episode, that is still ongoing. Modifying factors: The symptoms are alleviated by nothing. the symptoms are aggravated by exertion. Severity of pain: At its worst the pain was moderate in the emergency department the pain is unchanged. The patient has experienced a previous episode, last week. The patient has not recently seen a physician. Historical: - Allergies: 09:13 No Known Allergies; ww - Home Meds: 09:13 albuterol sulfate 2.5 mg /3 mL (0.083 %) inhalation nebu [Active]; Furosemide Oral once ww daily [Active]; Entresto 49-51 mg oral tab 1 tab 2 times per day [Active]; atorvastatin 40 mg oral tab 1 tab once daily [Active]; amiodarone 400 mg Oral tab 1 tab once daily [Active]; metoprolol succinate 25 mg oral CSpX 1 cap once daily [Active]; - PMHx: 09:13 Congestive heart failure; diabetes mellitus; Myocardial infarction; ww - PSHx: 09:13 Appendectomy; defibrillator; ww - Immunization history:: Adult Immunizations up to date. - Social history:: Smoking status: Patient denies any tobacco usage or history of. ROS: 09:45 Eyes: Negative for injury, pain, redness, and discharge, ENT: Negative for injury, jr8 pain, and discharge, Neck: Negative for injury, pain, and swelling, Abdomen/GI: Negative for abdominal pain, nausea, vomiting, diarrhea, and constipation, Back: Negative for injury and pain, MS/Extremity: Negative for injury and deformity, Skin: Negative for injury, rash, and discoloration, Neuro: Negative for headache, weakness, numbness, tingling, and seizure. 09:45 Cardiovascular: Positive for chest pain, orthopnea. 09:45 Respiratory: Positive for dyspnea on exertion, shortness of breath. Exam: 09:45 Neck: Trachea midline, no thyromegaly or masses palpated, and no cervical jr8 lymphadenopathy. Supple, full range of motion without nuchal rigidity, or vertebral point tenderness. No Meningismus. Cardiovascular: Regular rate and rhythm with a normal S1 and S2. No gallops, murmurs, or rubs. Normal PMI, no JVD. No pulse deficits. Abdomen/GI: Soft, non-tender, with normal bowel sounds. No distension or tympany. No guarding or rebound. No evidence of tenderness throughout. Back: No spinal tenderness. No costovertebral tenderness. Full range of motion. Skin: Warm, dry with normal turgor. Normal color with no rashes, no lesions, and no evidence of cellulitis. MS/ Extremity: Pulses equal, no cyanosis. Neurovascular intact. Full, normal range of motion. Neuro: Awake and alert, GCS 15, oriented to person, place, time, and situation. Cranial nerves II-XII grossly intact. Motor strength 5/5 in all extremities. Sensory grossly intact. 09:45 Constitutional: The patient appears alert, awake, uncomfortable. 09:45 Respiratory: mild respiratory distress is noted, Respirations: labored breathing, that is mild, tachypnea, that is mild, Breath sounds: rales, that are mild, are located in both bases. Vital Signs: 09:10 BP 194 / 92; Pulse 60; Resp 23; Pulse Ox 97% on 2 lpm NC; Weight 70.31 kg; Height 5 ft. ww 7 in. (170.18 cm); Pain 4/10; 09:50 BP 202 / 87; Pulse 71; Resp 23; Pulse Ox 98% on 3 lpm NC; ww 09:55 BP 183 / 85; Pulse 60; Resp 24; Pulse Ox 100% on 3 lpm NC; ww 10:00 BP 168 / 84; Pulse 60; Resp 27; Pulse Ox 99% on 3 lpm NC; ww 10:30 BP 183 / 97; Pulse 60; Resp 21; Pulse Ox 100% on BiPAP; ww 11:00 BP 175 / 93; Pulse 60; Resp 16; Pulse Ox 100% on BiPAP; ww 11:30 BP 176 / 97; Pulse 60; Resp 18; Pulse Ox 100% on BiPAP; ww 12:00 BP 181 / 97; Pulse 60; Resp 16; Pulse Ox 100% on BiPAP; ww 12:28 BP 194 / 61; Pulse 72; Resp 16; Pulse Ox 100% on BiPAP; ww 13:30 BP 191 / 99; Pulse 60; Resp 20; Pulse Ox 100% on BiPAP; ww 13:47 BP 172 / 85; Pulse 60; Resp 22; Temp 98.4; Pulse Ox 100% on BiPAP; ww 15:06 BP 171 / 89; Pulse 80; Resp 21; Pulse Ox 100% on BiPAP; ww 09:10 Body Mass Index 24.28 (70.31 kg, 170.18 cm) ww 09:50 Faisal CHIU at bedside Nitro administered ww 09:55 Nitro administered ww MDM: 09:08 Patient medically screened. [facility] 10:33 Data reviewed: vital signs, nurses notes, lab test result(s), EKG, radiologic studies, jr8 plain films, and as a result, I will admit patient. Data interpreted: Pulse oximetry: on 2L(s) per nasal canula, is 97 %. Interpretation: normal. Counseling: I had a detailed discussion with the patient and/or guardian regarding: the historical points, exam findings, and any diagnostic results supporting the discharge/admit diagnosis, lab results, radiology results, the need for further work-up and treatment in the hospital. ED course: Patient continue to have increased work of breathing. Patient put on bipap to help control breathing . 11/27 09:08 Order name: Basic Metabolic Panel; Complete Time: :11/27 09:08 Order name: CBC with Diff; Complete Time: :11/27 09:08 Order name: LFT's; Complete Time: :11/27 09:08 Order name: Magnesium; Complete Time: :11/27 09:08 Order name: NT PRO-BNP; Complete Time: :11/27 09:08 Order name: PT-INR; Complete Time: 09:38 11/27 09:08 Order name: Troponin HS; Complete Time: 10:11/27 09:20 Order name: CBC Smear Scan; Complete Time: 10:27 EDMS 11/27 10:34 Order name: ABG; Complete Time: 11:25 jr8 11/27 11:34 Order name: SARS-COV-2 RT PCR; Complete Time: 12:18 EDMS 11/27 13:26 Order name: Troponin High Sensitivity; Complete Time: 14:20 11/27 14:03 Order name: Comprehensive Metabolic Panel EDMS 11/27 14:03 Order name: Comprehensive Metabolic Panel EDMS 11/27 09:08 Order name: XRAY Chest (1 view); Complete Time: 09:52 8 11/27 10:06 Order name: BIPAP ww 11/27 14:03 Order name: Magnesium EDMS 11/27 14:03 Order name: Magnesium EDMS 11/27 14:03 Order name: Echo with Doppler EDMS 11/27 14:03 Order name: CBC with Automated Diff EDMS 11/27 14:03 Order name: CBC with Automated Diff EDMS 11/27 14:03 Order name: NT PRO-BNP EDMS 11/27 14:03 Order name: NT PRO-BNP EDMS 11/27 14:03 Order name: Phosphorus EDMS 11/27 14:04 Order name: Phosphorus EDMS 11/27 19:34 Order name: Flu bb 11/27 19:51 Order name: Influenza Screen (A EDMS 11/27 19:58 Order name: COVID-19/FLU A+B EDMS 11/27 09:08 Order name: EKG; Complete Time: 09:09 [facility] 11/27 09:08 Order name: Cardiac monitoring; Complete Time: 09:18 8 11/27 09:08 Order name: EKG - Nurse/Tech; Complete Time: 09:18 8 11/27 09:08 Order name: IV Saline Lock; Complete Time: 09:18 8 11/27 09:08 Order name: Labs collected and sent; Complete Time: 09:18 8 11/27 09:08 Order name: O2 Per Protocol; Complete Time: 09:18 8 11/27 09:08 Order name: O2 Sat Monitoring; Complete Time: 09:18 8 11/27 13:26 Order name: EKG; Complete Time: 13:26 11/27 14:03 Order name: CONS Physician Consult EDMS 11/27 14:03 Order name: Heart Healthy EDMI Administered Medications: 09:19 Not Given (patient recieved in route with EMS): Aspirin Chewable Tablet 324 mg PO once; ww 81 mg tablets x 4 09:25 Drug: Lasix (furosemide) 60 mg Route: IVP; Site: right forearm; ww 09:50 Drug: Nitroglycerin 0.4 mg Route: Sublingual; ww 09:55 Drug: Nitro-Bid (nitroglycerin) Ointment 2 % 1 inches Route: Transdermal; Site: ww anterior chest wall; 10:59 CANCELLED (Physician Discretion): morphine 2 mg IM once; RASS on ADMIN: Combtv4, Very ww Agttd3, Agttd2, Rstlss1, AlertClm0, Drwsy-1, Lt Sdtn-2, Mod Sdtn-3, Dp Sdtn-4, UnArsble-5 11:01 CANCELLED (wrong orderr): morphine 2 mg IVP once; (PAIN>8) RASS on ADMN: Combtv4, Very jl7 Agttd3, Agttd2, Rstlss1, AlertClm0, Drwsy-1, LtSdtn-2, ModSdtn-3, DpSdtn-4, UnArsble-5 x2 11:02 Drug: morphine 2 mg Route: IVP; Site: right forearm; ww 13:40 Drug: Ativan (LORazepam) 0.5 mg Route: IVP; Site: right forearm; ww 13:42 Drug: hydrALAZINE 10 mg Route: IVP; Site: right forearm; ww Disposition Summary: 11/27/21 10:29 Hospitalization Ordered Hospitalization Status: Inpatient Admission jr8 Provider: Parveen Crabtree Condition: Fair jr8 Problem: new jr8 Symptoms: have improved jr8 Bed/Room Type: Standard [facility] Location: Telemetry/MedSurg (Inpatient)(11/27/21 19:32) mw Room Assignment: 210(11/27/21 19:34) mw Diagnosis - Acute respiratory failure jr8 - Prerenal Azotemia jr8 - Acute on chronic systolic (congestive) heart failure jr8 - Hypertensive heart disease with heart failure jr8 Forms: - Medication Reconciliation Form jr8 - SBAR form jr8 Addendum: 12/10/2021 07:33 Co-signature as Attending Physician, Boogie Shah MD I agree with the assessment and k dr plan of care. Signatures: Dispatcher [employer] EDMS Zehra Mckinney RN RN Boogie Shah MD MD [facility] Ricky Hartman em1 Faisal Bridges, APPLE CHIU jr8 Nilton Son RN RN jl7 Sheila Cody RN RN ww Corrections: (The following items were deleted from the chart) 11/27 10:33 10:29 Subsequent non-ST elevation (NSTEMI) myocardial infarction jr8 jr8 10:59 10:53 morphine 2 mg IM once; RASS on ADMIN: Combtv4, Very Agttd3, Agttd2, Rstlss1, ww AlertClm0, Drwsy-1, Lt Sdtn-2, Mod Sdtn-3, Dp Sdtn-4, UnArsble-5 ordered. ww 11: 10:59 morphine 2 mg IVP once; (PAIN>8) RASS on ADMN: Combtv4, Very Agttd3, Agttd2, jl7 Rstlss1, AlertClm0, Drwsy-1, LtSdtn-2, ModSdtn-3, DpSdtn-4, UnArsble-5 x2 ordered. ww : 11:00 morphine 2 mg IVP once; (PAIN>8) RASS on ADMN: Combtv4, Very Agttd3, Agttd2, jl7 Rstlss1, AlertClm0, Drwsy-1, LtSdtn-2, ModSdtn-3, DpSdtn-4, UnArsble-5 x2 given. ww : 11:01 morphine 2 mg IVP once; (PAIN>8) RASS on ADMN: Combtv4, Very Agttd3, Agttd2, jl7 Rstlss1, AlertClm0, Drwsy-1, LtSdtn-2, ModSdtn-3, DpSdtn-4, UnArsble-5 x2 ordered. [facility] 11:34 10:51 COVID 19 CPL+MR.LAB.BRZ ordered. EDMI EDMI 14:51 10:29 Telemetry/MedSurg (Inpatient) jr8 em1 14:51 10:29 jr8 em1 19:32 14:51 [facility] em1 mw 19:32 [facility] mw 19:34 19:32 mw
[2021-11-27] MEDS ORDERED: MORPHINE 2 MG/ML SYR ONE (10:47)
[2021-11-27 11:14] LABS: Arterial Blood Carboxyhemoglob 1.4 % (0-1.5); Blood Gas Oxyhemoglobin 96.9 % (94-97); Blood O2 Saturation 99.5 % (92-98.5)
[2021-11-27] MEDS ORDERED: LORazepam 2 MG/ML VIAL ONE (13:34)
[2021-11-27] MEDS ORDERED: HYDRALAZINE HCL 20 MG/ML VIAL ONE (13:34)
[2021-11-27] MEDS ORDERED: ONDANSETRON 4 MG/2 ML VIAL IV PRN (13:59)
[2021-11-27] MEDS ORDERED: ACETAMINOPHEN 500 MG TAB PO PRN (13:59)
[2021-11-27] MEDS: FUROSEMIDE 40 MG/4 ML VIAL IV SCH (17:00)
[2021-11-27] MEDS ORDERED: FUROSEMIDE 20 MG/ 2ML VIAL ONE (18:44)
[2021-11-27 19:57] LABS: SARS-COV-2 RT PCR NEGATIVE (NEGATIVE)
[2021-11-27] MEDS: ATORVASTATIN 40 MG TAB PO SCH (21:00)
[2021-11-27] MEDS ORDERED: AMIODARONE HCL 200 MG TAB ONE (21:00)
[2021-11-27] MEDS: AMIODARONE HCL 200 MG TAB PO SCH (21:00)
[2021-11-27] MEDS ORDERED: ATORVASTATIN 20 MG TAB ONE (21:00)
[2021-11-27] MEDS: SACUBITRIL/VALSARTAN 49/51 MG TAB PO SCH (22:18)
[2021-11-27] MEDS ORDERED: ALBUTEROL 2.5 MG/3 ML NEB SOL NEB PRN (23:02)
[2021-11-27] MEDS: BENZONATATE 100 MG CAP PO PRN (23:57)
[2021-11-28] MEDS ORDERED: D10W 0 ML IV ONE (00:59)
[2021-11-28 06:14] LABS: Albumin 3.2 g/dL (3.4-5.0); Bilirubin Total 0.9 mg/dL (0.2-1.0); Magnesium 1.9 mg/dL (1.8-2.4); Phosphorus 3.6 mg/dL (2.5-4.9); Protein, Total 7.2 g/dL (6.4-8.2)
[2021-11-28 06:20] LABS: Absolute Lymphocytes (CBC) 0.3 K/uL (0.7-4.9); Hematocrit 32.9 % (39.6-49.0); Lymphocytes % 6.5 % (15.3-44.8); RBC Red Blood Cell Count 3.78 M/uL (4.33-5.43)
--- NOTE | 2021-11-28 08:20 | CON ---
Date of Consultation: 11/28/[address] Crabtree on 11/27/2021. I saw the patient on 11/28/2021. Reason For Consultation: Chest pain. History Of Present Illness: Mr. Cat is a 81-year-old white male. I recently saw him in the office . He is presumed to have a history of congestive heart failure. He has defibrillator and biventricu lar pacemaker, but his ejection fraction on 11/20/2021 was 62%. He had come in with AICD shocks and I put him on amiodarone 400 mg b.i.d. He is supposed to take that for a week and then go down to 200 mg daily, but I am not really so sure what dose he takes. He also has a history of diabetes and dys lipidemia. He is status post CABG many years ago. He sees Dr. Arenas normally. He comes in with s ubsternal chest pain going to the arm on the left side without any nausea, vomiting, or diaphoresis, but he did get short of breath. Symptoms lasted about an hour. His troponin is 95. His BNP is 11,5 29. EKG is paced rhythm. Chest x-ray is negative. Allergies: NONE. Review of Systems: Negative. Social History: Negative. Past Medical History: As stated above. Review of Systems: Negative. Medications: At home include amiodarone, Lasix, metoprolol 25 daily, inhalers, Lipitor, and Entresto 49/51 mg b.i.d. Physical Examination: Today, pain free, 100% paced. Vital Signs: Stable. Afebrile. HEENT: Negative. Neck: Supple. No bruit. Chest: Clear. Cardiac: Exam revealed a regular rhythm and rate. No murmurs, gallops, or rubs. Abdomen: Benign. Extremities: Revealed no clubbing, cyanosis, or edema. Diagnostic Data: As stated earlier. Impression And Plan: 1.Chest pain consistent with unstable angina. Mildly elevated troponin and BNP. No need to repeat another echo, and I think he needs to have a heart catheterization done by Dr. Arenas in the near [facility]. Of course, he has a creatinine of 2.21 and that may be an issue, but I will leave that up to Grant Arenas to decide, but I will call him today and let him know Mr. Cat's status. He has had rubio nary artery bypass graft many years ago. 2.Recent automatic implantable cardioverter-defibrillator shocks. He should be on amiodarone 200 mg daily now instead of 400 b.i.d. He has not had any further shocks. 3.Renal insufficiency. Creatinine is 2.1. 4.Elevated BNP and troponin secondary to coronary artery disease and chronic congestive heart failur e. His dyslipidemia, diabetes, and chronic obstructive pulmonary disease are stable. I would defini ana rosa continue the amiodarone at 200 daily, double the metoprolol, continue the rest of his medicines. His Entresto may be affecting his kidney function and like I said earlier, I will discuss the case further with Dr. Arenas. He has an appointment with him on December 22 and I will try to see if we ca n move that a little bit closer. I am concerned he can go home today. I will discuss the case [facility] with Dr. Crabtree. CHIVO/FAITH Voice ID: [id number] Report ID: [id number]
[2021-11-28] MEDS ORDERED: lisinopriL 10 MG TAB PO SCH (09:00)
[2021-11-28] MEDS: SACUBITRIL/VALSARTAN 49/51 MG TAB PO SCH ×2 (09:40→20:26)
[2021-11-28] MEDS: ENOXAPARIN 30 MG/0.3 ML SQ SCH (09:40)
[2021-11-28] MEDS: CLOPIDOGREL 75 MG TABLET PO SCH (09:41)
[2021-11-28] MEDS: AMIODARONE HCL 200 MG TAB PO SCH ×2 (09:41→20:26)
[2021-11-28] MEDS: ASPIRIN EC 81 MG TAB PO SCH (09:41)
[2021-11-28] MEDS: METOPROLOL TAR 50 MG TAB PO SCH ×2 (09:42→20:26)
[2021-11-28] MEDS: FUROSEMIDE 40 MG/4 ML VIAL IV SCH (09:43)
[2021-11-28] MEDS: BENZONATATE 100 MG CAP PO PRN (12:12)
[2021-11-28 18:29] LABS: Urine Appearance CLEAR (Clear); Urine Bilirubin NEGATIVE (Negative); Urine Blood 1+ (Negative); Urine Color YELLOW (Yellow); Urine Glucose NEGATIVE (Negative); Urine Protein 2+ (Negative); Urine Urobilinogen 0.2 mg/dL (0.2-1.0)
[2021-11-28 19:39] LABS: Urine Amorphous Sediment 1+ /HPF (NONE SEEN); Urine Bacteria <20 /HPF (NONE SEEN)
[2021-11-28] MEDS: ATORVASTATIN 40 MG TAB PO SCH (20:25)
--- NOTE | 2021-11-28 21:54 | RAD REPORT ---
EXAM DESCRIPTION: US - Renal Ultrasound-Complete - 11/28/2021 9:40 pm CLINICAL HISTORY: HIRO Flank pain COMPARISON: Renal Ultrasound-Complete dated 06/15/2017 FINDINGS: Both kidneys are normal in size, shape and echotexture. Small benign renal cysts bilateral ly. The right kidney measures 10.3 x 5.0 x 5.0 cm. No hydronephrosis, focal mass or perinephric fluid. The left kidney measures 10.4 x 5.1 x 4.4 cm. No hydronephrosis, focal mass or perinephric fluid. The urinary bladder is incompletely distended without gross abnormality seen. IMPRESSION: Benign renal cysts are present bilaterally, otherwise negative study.
[2021-11-29] MEDS: SACUBITRIL/VALSARTAN 49/51 MG TAB PO SCH ×2 (08:02→21:50)
[2021-11-29] MEDS: AMIODARONE HCL 200 MG TAB PO SCH ×2 (08:02→21:51)
[2021-11-29] MEDS: CLOPIDOGREL 75 MG TABLET PO SCH (08:03)
[2021-11-29] MEDS: ASPIRIN EC 81 MG TAB PO SCH (08:03)
[2021-11-29] MEDS: ENOXAPARIN 30 MG/0.3 ML SQ SCH (08:03)
[2021-11-29] MEDS: METOPROLOL TAR 50 MG TAB PO SCH ×2 (08:03→21:50)
--- NOTE | 2021-11-29 10:14 | EKG ---
Test Date: 2021-11-27 Test Time: 09:06:55 Energy And Conservation Technician: FROILAN MEASUREMENT RESULTS: Intervals: Rate: 60 VA: 126 QRSD: 154 QT: 510 QTc: 510 [place]: P: 31 VA: 126 QRS: -69 T: 182 INTERPRETIVE STATEMENTS: Electronic ventricular pacemaker Compared to ECG 11/27/2021 09:06:28 No significant changes Electronically Signed On 11-29-21 10:12:00 CDT by Max Pro
--- NOTE | 2021-11-29 10:14 | EKG ---
Test Date: 2021-11-27 Test Time: 09:06:28 Hearing Care Professional: FROILAN MEASUREMENT RESULTS: Intervals: Rate: 60 MI: 114 QRSD: 162 QT: 506 QTc: 506 [place]: P: MI: 114 QRS: -68 T: 174 INTERPRETIVE STATEMENTS: Electronic ventricular pacemaker Compared to ECG 11/19/2021 22:06:45 No significant changes Electronically Signed On 11-29-21 10:12:01 CDT by Max Pro
[2021-11-29 12:20] LABS: Albumin 2.9 g/dL (3.4-5.0); Bilirubin Total 0.8 mg/dL (0.2-1.0); Potassium 4.1 mmol/L (3.5-5.1); Protein, Total 6.5 g/dL (6.4-8.2)
[2021-11-29] MEDS ORDERED: ALBUMIN HUMAN 25% 100 ML IV ONE (12:32)
--- NOTE | 2021-11-29 15:05 | P.CNS ---
Date of Consult: 11/29/21 Reason for Consult: HIRO, CKD3 Requesting Physician: Parveen Crabtree History of Present Illness: 81M w/ PMHx of CKD stage III presumed to be 2/2 Htn/DM, baseline SCr 1.4-1.7 (equiv GFR 39-40 ml/min) as of 11/20/2021, DM type II, CHF, hyperlipidemia, COPD, & CAD status post HI status post CABG, who presents with chest pain. He reported having substernal chest pain that started a few hours prior to admission associated with shortness of breath. He is admitted for further cardiac evaluation. He was referred to nephrology for HIRO with serum creatinine was 2.2 on admission and currently up to 2.4. He was on Entresto at home and this is held due to the HIRO. His urinalysis shows proteinuria but no hematuria or pyuria. Renal ultrasound is unremarkable. He has subnephrotic proteinuria w/ random UPCR 2.8g. Urine chem showed secondary hyperaldosteronism state. Allergies No Known Allergies Allergy (Verified 03/23/21 04:35) Home Medications: Sacubitril/Valsartan [Entresto 49 mg-51 mg Tablet] 1 tab PO BID #60 tab 03/23/21 Cholecalciferol (Vitamin D3) [Vitamin D3] 10,000 unit PO DAILY #30 capsule 04/01/21 Metoprolol Succinate [Toprol Xl*] 25 mg PO [id number] #30 tab 04/01/21 Albuterol Neb [Proventil 0.083% Neb Soln] 2.5 mg NEB Q6HP PRN #60 amp 07/09/21 Atorvastatin Calcium [Lipitor] 40 mg PO BEDTIME #30 tab 07/09/21 Amiodarone HCl [Pacerone] 400 mg PO BID #60 tablet 11/20/21 Furosemide [Lasix] 20 mg PO DAILY 11/20/21 Mometasone/Formoterol [Dulera 100 Mcg/5 Mcg Inhaler] 2 puff IH BID 11/20/21 Aspirin [Aspirin EC 81 MG] 162 mg PO DAILY #60 tablet. 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 - Family History Father Medical History: Heart disease Mother Medical History: Heart disease, Hypertension, Diabetes, Cancer - Social History Smoking Status: Unknown if ever smoked Alcohol use: Yes CD- Drugs: No Caffeine use: Yes Place of Residence: Home Review of Systems General: Weakness Eyes: Unremarkable ENT: Unremarkable Respiratory: Shortness of Breath, SOB with Excertion Cardiovascular: Unremarkable Gastrointestinal: Unremarkable Genitourinary: Unremarkable Musculoskeletal: Pedal edema Integumentary: Unremarkable Neurological: Unremarkable Lymphatics: Unremarkable Physical Examination Temp Pulse Resp BP Pulse Ox 97.6 F 60 14 121/80 100 11/29/21 12:00 11/29/21 12:00 11/29/21 12:00 11/29/21 12:00 11/29/21 12:00 General: Other (appears as his stated age) HEENT: Atraumatic, Normocephalic Neck: Supple, JVD not distended Respiratory: Other (Symmetric chest expansion) Cardiovascular: No rubs, No murmurs Gastrointestinal: Soft and benign, No guarding Musculoskeletal: No clubbing Integumentary: No warmth Neurological: Normal speech, Normal tone Lymphatics: No axilla or inguinal lymphadenopathy Urinary: Other (no bladder distention) External genitalia: Deferred Rectal: Deferred Conclusions/Impression: # HIRO 2/2 accelerated Htn + Entresto use SCr 2.2 on admission and currently at 2.4 Hold Entresto Urinalysis +proteinuria but no hematuria or pyuria. Renal ultrasound is unremarkable Has subnephrotic proteinuria w/ random UPCR 2.8g Urine chem showed secondary hyperaldosteronism state # CKD stage III presumed to be 2/2 Htn/DM Baseline SCr 1.4-1.7 (equiv GFR 39-40 ml/min) as of 11/20/2021 Monitor renal panel # Acute respiratory failure 2/2 accelerated Htn & acute on chronic CHF Hx of AICD/PPM placement, CAD status post HI status post CABG, COPD Trop+, BNP sig elevated TTE on 11/20/21 showed LVEF 62%, dilated LA Lasix prn Cont cardioprudent meds For his secondary hyperaldo state, resume Entresto vs start low dose laron when HIRO better O2 suppl prn # Chest pain/Unstable angina Per Cardiology # Hyponatremia Mild, corrected serum Na 132, monitor # DM type II Mngt per primary team
[2021-11-29 19:33] LABS: UR PROTEIN 230.3 mg/dL (<11.9); Urine Protein/Creatinine Ratio 2.84 ratio (<0.15)
[2021-11-29 19:34] LABS: UR SODIUM < 15 mmol/L (27-287)
[2021-11-29] MEDS: ATORVASTATIN 40 MG TAB PO SCH (21:50)
--- NOTE | 2021-11-30 01:35 | P.HP ---
Certification for Inpatient Patient admitted to: Inpatient With expected LOS: >2 Midnights Patient will require the following post-hospital care: None Practitioner: I am a practitioner with admitting privileges, knowledge of patient current condition, hospital course, and medical plan of care. Services: Services provided to patient in accordance with Admission requirements found in Title 42 Section 412.3 of the Code of Federal Regulations Patient History Date of Service: 11/27/21 Reason for admission: Flash pulmonary edema History of Present Illness: Patient is a 81-year-old gentleman who came to the hospital with shortness of breath. Patient blood pressure was poorly controlled. Patient had flash pulmonary edema. Patient was admitted to the hospital for diuresing and blood pressure control. Patient has a history of congestive heart failure with diastolic dysfunction. Patient will be admitted to the hospital for further treatment. Patient also has a history of Parkinson's disease as well as hypertension and coronary artery disease. Allergies No Known Allergies Allergy (Verified 03/23/21 04:35) Home Medications: Sacubitril/Valsartan [Entresto 49 mg-51 mg Tablet] 1 tab PO BID #60 tab 03/23/21 Cholecalciferol (Vitamin D3) [Vitamin D3] 10,000 unit PO DAILY #30 capsule 04/01/21 Metoprolol Succinate [Toprol Xl*] 25 mg PO [id number] #30 tab 04/01/21 Albuterol Neb [Proventil 0.083% Neb Soln] 2.5 mg NEB Q6HP PRN #60 amp 07/09/21 Atorvastatin Calcium [Lipitor] 40 mg PO BEDTIME #30 tab 07/09/21 Amiodarone HCl [Pacerone] 400 mg PO BID #60 tablet 11/20/21 Furosemide [Lasix] 20 mg PO DAILY 11/20/21 Mometasone/Formoterol [Dulera 100 Mcg/5 Mcg Inhaler] 2 puff IH BID 11/20/21 Aspirin [Aspirin EC 81 MG] 162 mg PO DAILY #60 tablet. 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 moist/pink, EOMI, Sclerae nonicteric Neck: Supple, 2+ carotid pulse no bruit, No LAD, Without JVD or thyroid abnormality Respiratory: Diminished, Crackles/rales Cardiovascular: Regular rate/rhythm, Normal S1 S2 Gastrointestinal: Normal bowel sounds, Soft and benign, Non-distended, No tenderness Musculoskeletal: No clubbing, No swelling, No tenderness Integumentary: No rashes Neurological: Normal gait, Normal speech, Normal strength at 5/5 x4 extr, Normal tone, Sensation intact, Cranial nerves 3-12 intact, Normal affect Lymphatics: No axilla or inguinal lymphadenopathy Assessment & Plan - Problems (Diagnosis) (1) Flash pulmonary edema Current Visit: Yes Status: Acute (2) Uncontrolled hypertension Current Visit: Yes Status: Acute (3) Acute on chronic systolic CHF (congestive heart failure) Onset Date: 11/08/17 Current Visit: No Status: Acute (4) Acute respiratory failure Current Visit: No Status: Acute Qualifiers: Respiratory failure complication: hypoxia (5) COPD exacerbation Current Visit: No Status: Acute (6) Chronic atrial fibrillation Current Visit: No Status: Chronic (7) Chronic kidney disease, stage 3 Current Visit: No Status: Chronic Qualifiers: (8) Diabetes mellitus, type II Onset Date: 11/24/17 Current Visit: No Status: Chronic Qualifiers: (9) Presence of combination internal cardiac defibrillator (ICD) and pacemaker Current Visit: No Status: Chronic (10) Depression Current Visit: No Status: Suspected - Plan PLAN: 1. Echocardiogram to be reviewed 2. Continue cardiac meds with strict blood pressure control 3. We will start patient on a Beta sincere 4. Cardiology consultation 5. Aggressive diuresis 6. Strict I's and O's 7. Repeat CXR 8. Daily weights 9. Education regarding diet and treatment of congestive heart failure Discharge Plan: Home Plan to discharge in: Greater than 2 days - Advance Directives Does patient have a Living Will: No Does patient have a Durable POA for Healthcare: Yes - Code Status/Comfort Care Code Status Assessed: Yes Code Status: Full Code Critical Care: No Time Spent Managing PTS Care (In Minutes): 45
[2021-11-30] MEDS ORDERED: NITROGLYCERIN 1 GM PKT TD ONE (01:41)
[2021-11-30] MEDS ORDERED: HYDRALAZINE HCL 20 MG/ML VIAL IV PRN (01:41)
--- NOTE | 2021-11-30 01:45 | P.PN ---
Subjective Date of Service: 11/28/21 Patient is feeling much better. Spoke with cardiology and patient cleared to go home. However, renal function elevated. Continue to monitor closely. Review of Systems 10-point ROS is otherwise unremarkable Physical Examination - Vital Signs Temperature: 97.5 F Blood Pressure: 197/110 Pulse: 68 Respirations: 18 Pulse Ox (%): 100 - Physical Exam General: Alert, In no apparent distress, Oriented x3 HEENT: Atraumatic, PERRLA, EOMI Neck: Supple, JVD not distended Respiratory: Clear to auscultation bilaterally, Normal air movement Cardiovascular: Regular rate/rhythm, Normal S1 S2, No murmurs Gastrointestinal: Normal bowel sounds, Soft and benign, Non-distended, No tenderness Musculoskeletal: No clubbing, No swelling, No tenderness Integumentary: No rashes Neurological: Normal speech, Sensation intact, Cranial nerves 3-12 intact, Normal affect - Studies Medications List Reviewed: Yes Assessment & Plan - Problems (Diagnosis) (1) Flash pulmonary edema Current Visit: Yes Status: Acute (2) Uncontrolled hypertension Current Visit: Yes Status: Acute (3) Acute on chronic systolic CHF (congestive heart failure) Onset Date: 11/08/17 Current Visit: No Status: Acute (4) Acute respiratory failure Current Visit: No Status: Acute Qualifiers: Respiratory failure complication: hypoxia (5) COPD exacerbation Current Visit: No Status: Acute (6) Chronic atrial fibrillation Current Visit: No Status: Chronic (7) Chronic kidney disease, stage 3 Current Visit: No Status: Chronic Qualifiers: (8) Diabetes mellitus, type II Onset Date: 11/24/17 Current Visit: No Status: Chronic Qualifiers: (9) Presence of combination internal cardiac defibrillator (ICD) and pacemaker Current Visit: No Status: Chronic (10) Depression Current Visit: No Status: Suspected - Plan PLAN: Continue with plan of care as mentioned below: 1. Echocardiogram with heart failure with preserved ejection fraction(HFpEF) 2. Continue cardiac meds with strict blood pressure control 3. Continue with Beta sincere 4. Cardiology consultation appreciated 5. Hold Lasix 6. Strict I's and O's 7. Repeat CXR 8. Daily weights 9. Education regarding diet and treatment of congestive heart failure Discharge Plan: Home Plan to discharge in: Greater than 2 days - Advance Directives Does patient have a Living Will: No Does patient have a Durable POA for Healthcare: Yes - Code Status/Comfort Care Code Status: Full Code Critical Care: No Time Spent Managing PTS Care (In Minutes): 35
--- NOTE | 2021-11-30 01:47 | P.PN ---
Date of Service: 11/29/21 Subjective Patient doing better. Oxygen saturations were decreased on ambulation. Renal function still elevated. Consulted nephrology for further recommendation. They recommended holding Entresto. Holding diuretics and preventing blood pressure from becoming elevated. Anticipate discharge over the next 24 to 48 hours Review of Systems 10-point ROS is otherwise unremarkable Physical Examination - Vital Signs Reviewed - Physical Exam General: Alert, In no apparent distress, Oriented x3 Respiratory: Clear to auscultation bilaterally, Normal air movement Cardiovascular: Regular rate/rhythm, Normal S1 S2, No murmurs Gastrointestinal: Normal bowel sounds, Soft and benign, Non-distended, No tenderness Musculoskeletal: No clubbing, No swelling, No tenderness Neurological: Normal speech, Sensation intact, Cranial nerves 3-12 intact, Normal affect Assessment & Plan - Problems (Diagnosis) (1) Flash pulmonary edema Current Visit: Yes Status: Acute (2) Uncontrolled hypertension Current Visit: Yes Status: Acute (3) Acute on chronic systolic CHF (congestive heart failure) Onset Date: 11/08/17 Current Visit: No Status: Acute (4) Acute respiratory failure Current Visit: No Status: Acute Qualifiers: Respiratory failure complication: hypoxia (5) COPD exacerbation Current Visit: No Status: Acute (6) Chronic atrial fibrillation Current Visit: No Status: Chronic (7) Chronic kidney disease, stage 3 Current Visit: No Status: Chronic Qualifiers: (8) Diabetes mellitus, type II Onset Date: 11/24/17 Current Visit: No Status: Chronic Qualifiers: (9) Presence of combination internal cardiac defibrillator (ICD) and pacemaker Current Visit: No Status: Chronic (10) Depression Current Visit: No Status: Suspected - Plan PLAN: Continue with plan of care as mentioned below: 1. Echocardiogram with heart failure with preserved ejection fraction(HFpEF) 2. Continue cardiac meds with strict blood pressure control; nephrology recommending holding Entresto 3. Continue with Beta sincere 4. Cardiology consultation appreciated 5. Hold Lasix per nephrology recommendation 6. Strict I's and O's 7. Repeat CXR 8. Daily weights 9. Education regarding diet and treatment of congestive heart failure Discharge Plan: Home Plan to discharge in: Greater than 2 days - Advance Directives Does patient have a Living Will: No Does patient have a Durable POA for Healthcare: Yes - Code Status/Comfort Care Code Status: Full Code Critical Care: No Time Spent Managing PTS Care (In Minutes): 35
[2021-11-30 04:36] LABS: Absolute Lymphocytes (CBC) 0.6 K/uL (0.7-4.9); Hematocrit 36.5 % (39.6-49.0); Lymphocytes % 10.9 % (15.3-44.8); RBC Red Blood Cell Count 4.19 M/uL (4.33-5.43)
[2021-11-30 04:52] LABS: Albumin 3.1 g/dL (3.4-5.0); Phosphorus 2.8 mg/dL (2.5-4.9); Potassium 3.9 mmol/L (3.5-5.1)
[2021-11-30 06:35] LABS: Potassium 3.8 mmol/L (3.5-5.1)
[2021-11-30] MEDS: POTASSIUM CL SA 10 MEQ TAB PO ONE ×2 (06:36→06:37)
[2021-11-30 06:38] VITALS: BMI 23.1
[2021-11-30] MEDS ORDERED: POTASSIUM CL SA 10 MEQ TAB PO SCH (09:00)
[2021-11-30 09:15] VITALS: O2SAT 98
[2021-11-30] MEDS: ENOXAPARIN 30 MG/0.3 ML SQ SCH (09:49)
[2021-11-30] MEDS: ASPIRIN EC 81 MG TAB PO SCH (09:50)
[2021-11-30] MEDS: METOPROLOL TAR 50 MG TAB PO SCH (09:50)
[2021-11-30] MEDS: CLOPIDOGREL 75 MG TABLET PO SCH (09:50)
[2021-11-30] MEDS: SACUBITRIL/VALSARTAN 49/51 MG TAB PO SCH (09:50)
[2021-11-30] MEDS: AMIODARONE HCL 200 MG TAB PO SCH (09:50)
--- NOTE | 2021-11-30 10:59 | P.CNS ---
Date of Consult: 11/30/21 Reason for Consult: HIRO/ CKD Requesting Physician: Parveen Crabtree Chief Complaint: Flash pulmonary edema History of Present Illness: Patient is a 81-year-old gentleman who came to the hospital with shortness of breath. Patient blood pressure was poorly controlled. Patient had flash pulmonary edema. Patient was admitted to the hospital for diuresing and blood pressure control. Patient has a history of congestive heart failure with diastolic dysfunction. Patient will be admitted to the hospital for further treatment. Patient also has a history of Parkinson's disease as well as hypertension and coronary artery disease. 09:45 This 81 yrs old Male presents to ER via EMS with complaints of Chest Pain. jr8 09:45 The patient or guardian reports chest pain that is located primarily in the substernal jr8 area. Onset: acutely, this morning. The pain does not radiate. Associated signs and symptoms: Pertinent positives: shortness of breath. The chest pain is described as a heaviness. Duration: The patient or guardian reports a single episode, that is still ongoing. Modifying factors: The symptoms are alleviated by nothing. the symptoms are aggravated by exertion. Severity of pain: At its worst the pain was moderate in the emergency department the pain is unchanged. The patient has experienced a previous episode, last week. The patient has not recently seen a physician. Allergies No Known Allergies Allergy (Verified 03/23/21 04:35) Home medications list reviewed: Yes Home Medications: Sacubitril/Valsartan [Entresto 49 mg-51 mg Tablet] 1 tab PO BID #60 tab 03/23/21 Cholecalciferol (Vitamin D3) [Vitamin D3] 10,000 unit PO DAILY #30 capsule 04/01/21 Metoprolol Succinate [Toprol Xl*] 25 mg PO [id number] #30 tab 04/01/21 Albuterol Neb [Proventil 0.083% Neb Soln] 2.5 mg NEB Q6HP PRN #60 amp 07/09/21 Atorvastatin Calcium [Lipitor] 40 mg PO BEDTIME #30 tab 07/09/21 Amiodarone HCl [Pacerone] 400 mg PO BID #60 tablet 11/20/21 Furosemide [Lasix] 20 mg PO DAILY 11/20/21 Mometasone/Formoterol [Dulera 100 Mcg/5 Mcg Inhaler] 2 puff IH BID 11/20/21 Aspirin [Aspirin EC 81 MG] 162 mg PO DAILY #60 tablet. 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 - Family History Father Medical History: Heart disease Mother Medical History: Heart disease, Hypertension, Diabetes, Cancer - Social History Smoking Status: Unknown if ever smoked Alcohol use: Yes CD- Drugs: No Caffeine use: Yes Place of Residence: Home Review of Systems 10-point ROS is otherwise unremarkable General: Weakness Physical Examination Temp Pulse Resp BP Pulse Ox 96.9 F 60 16 146/76 H 97 11/30/21 08:00 11/30/21 08:00 11/30/21 08:00 11/30/21 08:00 11/30/21 08:00 General: In no apparent distress, Oriented x3, Cooperative HEENT: Atraumatic Neck: Supple Respiratory: Clear to auscultation bilaterally Cardiovascular: No edema, Regular rate/rhythm Gastrointestinal: Soft and benign, Non-distended Musculoskeletal: No clubbing, No contractures Integumentary: No rashes, No cyanosis Neurological: Normal speech, Abnormal tone Blood work reviewed in the chart. Imagings Data: EXAM DESCRIPTION: US - Renal Ultrasound-Complete - 11/28/2021 9:40 pm CLINICAL HISTORY: HIRO Flank pain COMPARISON: Renal Ultrasound-Complete dated 06/15/2017 FINDINGS: Both kidneys are normal in size, shape and echotexture. Small benign renal cysts bilaterally. The right kidney measures 10.3 x 5.0 x 5.0 cm. No hydronephrosis, focal mass or perinephric fluid. The left kidney measures 10.4 x 5.1 x 4.4 cm. No hydronephrosis, focal mass or perinephric fluid. The urinary bladder is incompletely distended without gross abnormality seen. IMPRESSION: Benign renal cysts are present bilaterally, otherwise negative study. EXAM DESCRIPTION: RAD - Chest Single View - 11/27/2021 9:40 am CLINICAL HISTORY: DYSPNEA COMPARISON: Chest Single View dated 11/19/2021; Chest Single View dated 07/08/2021; Chest Single View dated 06/23/2021; Chest Single View dated 06/15/2021 FINDINGS: Lines: Pacemaker/ICD Lungs: Increased prominence of the pulmonary vasculature. Pleural: No significant pleural effusions or pneumothorax. Cardiac: Cardiomegaly. Bones: No acute fractures. Other: IMPRESSION: Findings most likely representing pulmonary edema which has worsened since 11/19/2021. Pneumonia less likely but not entirely excluded. Conclusions/Impression: HIRO in the setting of uncontrolled HTN & CRS CKD III with proteinuria -No NSAIDs -Restart furosemide Hyponatremia -Encourage nutrition -Restart furosemide 20mg daily Hypokalemia -Replete potassium prn HTN with CKD/CHF -Continue Metoprolol Systolic CHF, A/C -Continue Entresto -Start CoQ10 -Continue Metoprolol DM II with CKD -No sugar diet -RISS PRN Anemia in chronic illness -Monitor H&H CKD MBD Secondary HyperPTH 243 -Start Vitamin D Thank you kindly for the consultation.
[2021-11-30 12:36] VITALS: BP 134/80; TEMP 97.4
--- NOTE | 2021-11-30 13:49 | ECHO ---
HEIGHT: 5 ft 7 in WEIGHT: 148 lb 0 oz DATE OF STUDY: 11/30/[address]: Parveen Crabtree MD 2-DIMENSIONAL: YES M.MODE: YES DOPPLER: YES COLOR FLOW: YES TDS: NO PORTABLE: NO DEFINITY: NO BUBBLE STUDY: NO DIAGNOSIS: CONGESTIVE HEART FAILURE CARDIAC HISTORY: CATHERIZATION: NO SURGERY: NO PROSTHETIC VALVE: NO PACEMAKER: YES MEASUREMENTS (cm) DIASTOLIC (NORMALS) SYSTOLIC (NORMALS) IVSd 1.3 (0.6-1.2) LA Diam 5.2 (1.9-4.0) LVEF 50-55% LVIDd 5.3 (3.5-5.7) LVIDs 4.1 (2.0-3.5) %FS 22% LVPWd 1.0 (0.6-1.2) Ao Diam 2.8 (2.0-3.7) 2 DIMENSIONAL ASSESSMENT: RIGHT ATRIUM: NORMAL LEFT ATRIUM: ENLARGED RIGHT VENTRICLE: NORMAL LEFT VENTRICLE: NORMAL TRICUSPID VALVE: NORMAL MITRAL VALVE: PULMONIC VALVE: NORMAL AORTIC VALVE: NORMAL PERICARDIAL EFFUSION: NONE AORTIC ROOT: NORMAL LEFT VENTRICULAR WALL MOTION: MILD GLOBAL HYPOKINESIS. DOPPLER/COLOR FLOW: SEE BELOW. COMMENTS: LOW NORMAL LEFT VENTRICULAR EJECTION FRACTION 50-55%. MODERATE MITRAL REGURGITATION. SEVERELY ENLARGED LEFT ATRIUM. TECHNOLOGIST: Aliza NOBLE
--- NOTE | 2021-11-30 19:49 | P.DS ---
Admission Date: 11/27/21 Discharge Date: 11/30/21 Disposition: ROUTINE DISCHARGE Discharge Condition: GOOD Reason for Admission: Flash pulmonary edema - Problems (1) Malignant hypertension Status: Acute (2) Dizziness Status: Acute (3) Flash pulmonary edema Status: Acute (4) Atrial fibrillation Status: Chronic Qualifiers: Atrial fibrillation type: paroxysmal Qualified Code(s): I48.0 - Paroxysmal atrial fibrillation (5) Chronic kidney disease, stage 3 Status: Chronic Qualifiers: (6) Diabetes mellitus, type II Onset Date: 11/24/17 Status: Chronic Qualifiers: (7) Acute diastolic heart failure Status: Acute Brief History of Present Illness: Patient is a 81-year-old gentleman who came to the hospital with shortness of breath. Patient blood pressure was severely elevated in the ED. checks x-ray in the ED suggested pulmonary edema.patient suspected to have experienced flash pulmonary edema from severe hypertension. Patient was admitted to the hospital for diuresing and blood pressure control. Patient has a history of congestive heart failure. He was admitted to the hospital for diuresis and blood pressure control. Hospital Course: Patient admitted to the medical floor and treated for pulmonary edema with IV Lasix. He also received albumin infusion. His serum creatinine is mildly elevated. Renal function was monitored with diuresis. Patient seen and evaluated by nephrology who assisted with management. Echocardiogram done showed normal EF. His blood pressure was managed with metoprolol 50 mg twice daily and Entresto. Patient blood pressure improved with this regimen. His renal function was also stable on Entresto. His shortness of breath resolved. Patient request to go home stating he is feeling at baseline. Vitals are stable, he is clinically stable for discharge. Oral Lasix resumed on discharge. Vital Signs/Physical Exam: Temp Pulse Resp BP Pulse Ox 97.4 F 60 16 134/80 100 11/30/21 12:00 11/30/21 12:00 11/30/21 12:00 11/30/21 12:11/30/21 12:00 General: Alert, In no apparent distress, Oriented x3 HEENT: Mucous membr. moist/pink Neck: JVD not distended Respiratory: Clear to auscultation bilaterally, Normal air movement Cardiovascular: No edema, Regular rate/rhythm, Normal S1 S2 Gastrointestinal: Soft and benign, Non-distended Musculoskeletal: No swelling Integumentary: No rashes Neurological: Normal strength at 5/5 x4 extr Laboratory Data at Discharge: WBC 5.80 K/uL (4.3-10.9) 11/30/21 04:00 Hgb 12.8 g/dL (13.6-17.9) L 11/30/21 04:00 Hct 36.5 % (39.6-49.0) L 11/30/21 04:00 Plt Count 193 K/uL (152-406) 11/30/21 04:00 PT 11.0 SECONDS (9.5-12.5) 11/27/21 09:08 INR 1.00 11/27/21 09:08 Sodium 131 mmol/L (136-145) L 11/30/21 05:40 Potassium 3.8 mmol/L (3.5-5.1) 11/30/21 05:40 BUN 59 mg/dL (7-18) H 11/30/21 05:40 Creatinine 2.49 mg/dL (0.55-1.3) H 11/30/21 05:40 Glucose 169 mg/dL (74-106) H 11/30/21 05:40 Phosphorus 2.8 mg/dL (2.5-4.9) 11/30/21 04:00 Magnesium 2.0 mg/dL (1.8-2.4) 11/30/21 04:00 Total Bilirubin 0.8 mg/dL (0.2-1.0) 11/29/21 11:45 AST 21 U/L (15-37) 11/29/21 11:45 ALT 42 U/L (12-78) 11/29/21 11:45 Alkaline Phosphatase 71 U/L (45-117) 11/29/21 11:45 Home Medications: Sacubitril/Valsartan [Entresto 49 mg-51 mg Tablet] 1 tab PO BID #60 tab 03/23/21 Cholecalciferol (Vitamin D3) [Vitamin D3] 10,000 unit PO DAILY #30 capsule 04/01/21 Albuterol Neb [Proventil 0.083% Neb Soln] 2.5 mg NEB Q6HP PRN #60 amp 07/09/21 Atorvastatin Calcium [Lipitor] 40 mg PO BEDTIME #30 tab 07/09/21 Furosemide [Lasix] 20 mg PO DAILY 11/20/21 Mometasone/Formoterol [Dulera 100 Mcg/5 Mcg Inhaler] 2 puff IH BID 11/20/21 Aspirin [Aspirin EC 81 MG] 162 mg PO DAILY #60 tablet. 11/29/21 Benzonatate [Tessalon Perle*] 100 mg PO TID PRN #30 cap 11/29/21 Amiodarone HCl [Pacerone] 200 mg PO DAILY #30 tablet 11/30/21 Clopidogrel Bisulfate [Plavix*] 75 mg PO DAILY #30 tablet 11/30/21 Metoprolol Tartrate [Lopressor*] 50 mg PO BID #60 tab 11/30/21 New Medications: Aspirin [Aspirin EC 81 MG] 162 mg PO DAILY #60 tablet. Metoprolol Tartrate [Lopressor*] 50 mg PO BID #60 tab Amiodarone HCl [Pacerone] 200 mg PO DAILY #30 tablet Clopidogrel Bisulfate [Plavix*] 75 mg PO DAILY #30 tablet Benzonatate [Tessalon Perle*] 100 mg PO TID PRN #30 cap PRN Reason: Cough Physician Discharge Instructions: -DC IV and DC home -Follow-up with PCP in 1 to 2 weeks -Follow-up with Cardiology in 1 to 2 weeks -Follow-up with nephrology in 1 to 2 weeks -Please call Dr. Crabtree at [phone] if any questions regarding hospital stay -Please call nursing station at [phone] if any nursing or medication questions -Return to the emergency room if symptoms worsen -Home oxygen was delivered by [employer] [facility] Patient, Use at 2L per nasal cannula -Prescriptions sent to [facility] in [place] Diet: AHA Activity: Fall precautions Followup: Josh Powell DO [ACTIVE - CAN ADMIT] - 1-2 Weeks Micha Hernandez MD [Primary Care Provider] - 1 Week LESLIE DICKSON [UNKNOWN] - 1-2 Weeks Time spent managing pt's care (in minutes): 34
[2021-12-01] MEDS ORDERED: FUROSEMIDE 20 MG TABLET PO SCH (09:00)
[2021-12-01] MEDS ORDERED: VITAMIN D 5,000 UNIT CAP PO SCH (09:00)
[2021-12-01] MEDS ORDERED: CALCITROL 0.25 MCG CAP PO SCH (09:00)
[2021-12-01] MEDS ORDERED: COENZYME Q10- 200 MG CAP PO SCH (09:00)
== END 2021-11-30 13:45 | disposition home or self-care (01) | DRG 291 ==
LOC: ER 08:53 → ERHOLD 14:18 → 2ND 21:24
PROVIDERS: ADMIT Hospitalist; ATTEND Hospitalist
DX: I13.0 Hypertensive heart and chronic kidney disease with heart failure and stage 1 through stage 4 chronic kidney disease, or unspecified chronic kidney disease (principal); J81.0 Acute pulmonary edema; J96.00 Acute respiratory failure, unspecified whether with hypoxia or hypercapnia; I50.23 Acute on chronic systolic (congestive) heart failure; N17.9 Acute kidney failure, unspecified; E87.1 Hypo-osmolality and hyponatremia; N25.81 Secondary hyperparathyroidism of renal origin; N18.30 Chronic kidney disease, stage 3 unspecified; E11.22 Type 2 diabetes mellitus with diabetic chronic kidney disease; I48.0 Paroxysmal atrial fibrillation; G20 Parkinson's disease; E87.6 Hypokalemia; D63.8 Anemia in other chronic diseases classified elsewhere; I25.110 Atherosclerotic heart disease of native coronary artery with unstable angina pectoris; J44.9 Chronic obstructive pulmonary disease, unspecified; Z95.810 Presence of automatic (implantable) cardiac defibrillator; Z86.73 Personal history of transient ischemic attack (TIA), and cerebral infarction without residual deficits; Z95.1 Presence of aortocoronary bypass graft; Z20.822 Contact with and (suspected) exposure to COVID-19
CPT/HCPCS: 0240U; 36415; 71045; 76770; 80048; 80053; 80069; 80076; 81001; 82550; 82570; 82805; 83735; 83880; 83930; 83935; 83970; 84100; 84132; 84156; 84300; 84484; 85025; 85610; 93005; 93306; 94660; 96374; 96375; 99285; J0360; J1650; J1940; J2270; P9047

== ENCOUNTER 2021-12-26 23:55 | Inpatient (IN) | payer OTHER ==
[2021-12-27] MEDS ORDERED: MAGNES/ALUMIN/SIMET 30ML UCUP ONE ×2 (00:18→00:19)
[2021-12-27] MEDS ORDERED: LIDOCAINE VISCOUS 2% SOLN 15 ML UDC ONE (00:21)
[2021-12-27 01:49] LABS: Absolute Lymphocytes (CBC) 0.4 K/uL (0.7-4.9); Hematocrit 31.5 % (39.6-49.0); Lymphocytes % 7.2 % (15.3-44.8); MPV 7.5 fL (7.6-11.3); RBC Red Blood Cell Count 3.57 M/uL (4.33-5.43)
[2021-12-27 02:08] LABS: Potassium 3.4 mmol/L (3.5-5.1)
[2021-12-27 02:34] LABS: Troponin High Sensitivity 83.6 pg/mL (<58.9)
--- NOTE | 2021-12-27 02:55 | ER ---
Nurse's Notes [facility] Name: Jimbo Cat Age: 81 yrs Sex: Male : 1940 Arrival Date: 12/27/2021 Time: 00:01 Bed 13 Private MD: Diagnosis: Congestive heart failure;Hypokalemia;Hyponatremia;Dyspnea;Renal insufficiency Presentation: 12/27 00:12 Chief complaint: EMS states: they were toned out for report of pt who thought he had bb something stuck in his throat pt had been eating cake approx 4 hours ago pt states he is having difficulty breathing also. Coronavirus screen: At this time, the client does not indicate any symptoms associated with coronavirus-19. Ebola Screen: No symptoms or risks identified at this time. Initial Sepsis Screen: Does the patient meet any 2 criteria? No. Patient's initial sepsis screen is negative. Does the patient have a suspected source of infection? No. Patient's initial sepsis screen is negative. Risk Assessment: Do you want to hurt yourself or someone else? Patient reports no desire to harm self or others. Onset of symptoms was December 26, 2021. 00:12 Method Of Arrival: EMS: [facility] bb 00:12 Acuity: SYDNIE 3 bb Historical: - Allergies: 00:15 No Known Allergies; bb - Home Meds: 00:15 albuterol sulfate 2.5 mg /3 mL (0.083 %) Inhl nebu [Active]; amiodarone 400 mg Oral tab bb 1 tab once daily [Active]; atorvastatin 40 mg Oral tab 1 tab once daily [Active]; Entresto 49-51 mg Oral tab 1 tab 2 times per day [Active]; Furosemide Oral once daily [Active]; metoprolol succinate 25 mg Oral CSpX 1 cap once daily [Active]; - PMHx: 00:15 Congestive heart failure; diabetes mellitus; Myocardial infarction; CVA; bb - PSHx: 00:15 Appendectomy; defibrillator; bb - Immunization history:: Client reports receiving the 2nd dose of the Covid vaccine. - Social history:: Smoking status: Patient denies any tobacco usage or history of. Screenin:32 Abuse screen: Denies threats or abuse. Nutritional screening: No deficits noted. ag7 Tuberculosis screening: No symptoms or risk factors identified. Fall Risk No fall in past 12 months (0 pts). Secondary diagnosis (15 points) No IV (0 pts). Ambulatory Aid- None/Bed Rest/Nurse Assist (0 pts). Gait- Normal/Bed Rest/Wheelchair (0 pts) Mental Status- Oriented to own ability (0 pts). Total Johnston Fall Scale indicates No Risk (0-24 pts). Assessment: 00:29 General: Appears in no apparent distress. Behavior is calm, cooperative, appropriate ag7 for age. Pain: Denies pain. Neuro: Oriented to person, place, situation, Appropriate for age Tailer In are equal bilaterally Moves all extremities. Cardiovascular: Heart tones present Murmur present Capillary refill < 3 seconds in bilateral fingers Patient's skin is warm and dry. Pulses are 2+ in right radial artery and left radial artery Rhythm is with capture. Respiratory: Reports shortness of breath at rest 02 2l n/c Airway is patent Trachea midline Respiratory effort is even, unlabored, Respiratory pattern is regular, symmetrical, Breath sounds are clear bilaterally. Breath sounds are diminished bilaterally. GI: Bowel sounds present X 4 quads. 01:39 Reassessment: No changes from previously documented assessment. Patient and/or family ag7 updated on plan of care and expected duration. Pain level reassessed. Patient is alert, oriented x 3, equal unlabored respirations, skin warm/dry/pink. Patient states feeling better. 03:21 Reassessment: pt is A\T\O x 4, Johanna CHIU at bedside for discussion of need for bb admit pt verbalized understanding of and agrees to plan of care awaiting room assignment. IV site intact, patent no erythema or edema noted. Vital Signs: 00:12 BP 183 / 84; Pulse 59; Resp 20 S; Temp 97.7(O); Pulse Ox 100% on 2 lpm NC; Weight 77.11 bb kg (R); Height 5 ft. 7 in. (170.18 cm) (R); Pain 0/10; 01:30 BP 175 / 84; Pulse 60; Resp 20 S; Pulse Ox 100% ; Pain 0/10; ag7 03:02 BP 181 / 93; Pulse 58; Resp 18 S; Pulse Ox 99% on 2 lpm NC; bb 00:12 Body Mass Index 26.63 (77.11 kg, 170.18 cm) bb ED Course: 00:01 Patient arrived in ED. ms3 00:01 Deangelo Cabezas DO is Attending Physician. ms3 00:15 Triage completed. bb 00:15 Arm band placed on Patient placed in an exam room, on a stretcher, on pulse oximetry. bb 00:33 Patient has correct armband on for positive identification. Bed in low position. Call ag7 light in reach. Side rails up X 1. 01:35 XRAY Chest (1 view) In Process Unspecified. EDMS 01:39 Inserted saline lock: 20 gauge in right antecubital area, using aseptic technique. ag7 Blood collected. IV is patent, is intact, with fluids infusing freely, with good blood return. 01:42 No provider procedures requiring assistance completed. ag7 02:53 Parveen Crabtree MD is Hospitalizing Provider. ms3 03:22 Patient admitted, IV remains in place. bb 04:49 Urine Microscopic Only Sent. ag7 05:31 Joi Ordaz, SABINE is Primary Nurse. ag7 09:33 Primary Nurse role handed off by Joi Ordaz RN Administered Medications: 00:24 Drug: GI Cocktail without - (Maalox Suspension 30 ml, Lidocaine Liquid 2 % 15 ag7 ml) Route: PO; 01:24 Follow up: Response: No adverse reaction ag7 03:20 Drug: Lasix (furosemide) 40 mg Route: IVP; Site: right hand; bb 03:20 Drug: Potassium Chloride 40 mEq Route: PO; bb Output: 03:20 Urine: 425ml (Voided); Total: 425ml. bb Outcome: 02:55 Decision to Hospitalize by Provider. ms3 03:22 Instructed on the need for admit. bb 03:22 Condition: stable bb 11:36 Admitted to Tele accompanied by tech, via wheelchair, Report called to manager icu jh6 11:38 Patient left the ED. jh6 Signatures: Dispatcher [employer] EDMS Kerry Tucker RN RN Isabel Olmedo Marcus, DO DO ms3 Snady Galloway RN RN 6 Joi Ordaz, SABINE RN 7
--- NOTE | 2021-12-27 02:56 | EDPHYS ---
Physician Documentation [facility] Name: Jimbo Cat Age: 81 yrs Sex: Male : 1940 Arrival Date: 12/27/2021 Time: 00:01 Bed 13 Private MD: ED Physician Deangelo Cabezas HPI: 12/27 00:06 This 81 yrs old Male presents to ER via Unassigned with complaints of FB in throat ms3 sensation. 00:06 The patient presents with a foreign body sensation in the throat. The patient describes ms3 throat pain as scratchy. Onset: The symptoms/episode began/occurred 4 hour(s) ago. Severity of symptoms: At their worst the symptoms were moderate, in the emergency department the symptoms are unchanged. Modifying factors: The symptoms are alleviated by nothing, the symptoms are aggravated by nothing, Patient's oral intake status: unable to tolerate foods. 81-year-old male presents via [facility] after eating cake hours prior to arrival. Patient states he has a sensation that the cake is stuck in his throat. Patient states he has been able to tolerate liquids. Patient states he is having moderate discomfort. Patient denies alleviating or inciting factors. Historical: - Allergies: 00:15 No Known Allergies; bb - Home Meds: 00:15 albuterol sulfate 2.5 mg /3 mL (0.083 %) Inhl nebu [Active]; amiodarone 400 mg Oral tab bb 1 tab once daily [Active]; atorvastatin 40 mg Oral tab 1 tab once daily [Active]; Entresto 49-51 mg Oral tab 1 tab 2 times per day [Active]; Furosemide Oral once daily [Active]; metoprolol succinate 25 mg Oral CSpX 1 cap once daily [Active]; - PMHx: 00:15 Congestive heart failure; diabetes mellitus; Myocardial infarction; CVA; bb - PSHx: 00:15 Appendectomy; defibrillator; bb - Immunization history:: Client reports receiving the 2nd dose of the Covid vaccine. - Social history:: Smoking status: Patient denies any tobacco usage or history of. ROS: 00:06 Constitutional: Negative for fever, and chills. Neck: Negative for injury, pain, and ms3 swelling, Cardiovascular: Negative for chest pain, and palpitations. Respiratory: Negative for shortness of breath, cough, wheezing, and pleuritic chest pain, Abdomen/GI: Negative for abdominal pain, nausea, vomiting, diarrhea, and constipation, Skin: Negative for injury, rash, and discoloration. 00:06 ENT: Positive for sore throat. 00:06 Neuro: 00:06 All other systems are negative. Exam: 00:06 Constitutional: This is a well developed, well nourished patient who is awake, alert, ms3 and in no acute distress. Head/Face: Normocephalic, atraumatic. ENT: Nares patent. No nasal discharge, no septal abnormalities noted. Tympanic membranes are normal and external auditory canals are clear. Oropharynx with no redness, swelling, or masses, exudates, or evidence of obstruction, uvula midline. Mucous membranes moist. Neck: Trachea midline, no cervical lymphadenopathy. Supple, full range of motion without nuchal rigidity, or vertebral point tenderness. No Meningismus. Chest/axilla: Normal chest wall appearance and motion. Nontender with no deformity. Cardiovascular: Regular rate and rhythm with a normal S1 and S2. No gallops, murmurs, or rubs. Normal PMI, no JVD. No pulse deficits. Respiratory: Lungs have equal breath sounds bilaterally, clear to auscultation and percussion. No rales, rhonchi or wheezes noted. No increased work of breathing, no retractions or nasal flaring. Abdomen/GI: Soft, non-tender, with normal bowel sounds. No distension or tympany. No guarding or rebound. No evidence of tenderness throughout. Skin: Warm, dry with normal turgor. Normal color with no rashes, no lesions, and no evidence of cellulitis. 01:26 ECG was reviewed by the Attending Physician. ms3 Vital Signs: 00:12 BP 183 / 84; Pulse 59; Resp 20 S; Temp 97.7(O); Pulse Ox 100% on 2 lpm NC; Weight 77.11 bb kg (R); Height 5 ft. 7 in. (170.18 cm) (R); Pain 0/10; 01:30 BP 175 / 84; Pulse 60; Resp 20 S; Pulse Ox 100% ; Pain 0/10; ag7 03:02 BP 181 / 93; Pulse 58; Resp 18 S; Pulse Ox 99% on 2 lpm NC; bb 00:12 Body Mass Index 26.63 (77.11 kg, 170.18 cm) bb MDM: 00:01 Patient medically screened. ms3 00:06 Differential diagnosis: Food bolus vs esophageal irritation vs FB sensation. ms3 06:37 Data reviewed: vital signs, nurses notes, lab test result(s), EKG, radiologic studies. ms3 Data interpreted: monitor and storage bin tender: rate is 60 beats/min, rhythm is normal sinus rhythm, with no ectopy, Interpretation: normal rate, normal rhythm. Test interpretation: by ED physician or midlevel provider: ECG. Counseling: I had a detailed discussion with the patient and/or guardian regarding: the historical points, exam findings, and any diagnostic results supporting the discharge/admit diagnosis, lab results, radiology results, the need for further work-up and treatment in the hospital. ED course: Discussed case with APPLE Tai, and she accepts patient on behalf of Dr Crabtree. Patient has remained stable in the ED.. 12/27 01:16 Order name: Basic Metabolic Panel; Complete Time: 02:41 ms3 12/27 01:16 Order name: CBC with Diff; Complete Time: 02:41 ms3 12/27 01:16 Order name: Troponin HS; Complete Time: 02:41 ms3 12/27 01:16 Order name: BNP; Complete Time: 02:41 ms3 12/27 02:41 Order name: COVID-19/FLU A+B (Document "Date of Onset" if Symptomatic); Complete Time: ag7 04:06 12/27 04:23 Order name: Urine Microscopic Only ag7 12/27 01:16 Order name: XRAY Chest (1 view) ms3 12/27 04:32 Order name: Urine Dipstick-Ancillary EDMS 12/27 04:45 Order name: Creatine Phosphokinase EDMS 12/27 04:45 Order name: CKMB Creatine Kinase MB EDMS 12/27 04:51 Order name: Lipid Profile EDMS 12/27 05:26 Order name: Urine Microscopic Only EDMS 12/27 07:58 Order name: Troponin High Sensitivity EDMS 12/27 00:29 Order name: PO challenge; Complete Time: 00:51 ms3 12/27 01:16 Order name: EKG; Complete Time: 01:17 ms3 12/27 01:16 Order name: Cardiac monitoring; Complete Time: 01:17 ms3 12/27 01:16 Order name: EKG - Nurse/Tech; Complete Time: 01:27 ms3 12/27 01:16 Order name: IV Saline Lock; Complete Time: 01:39 ms3 12/27 01:16 Order name: Labs collected and sent; Complete Time: 01:39 ms3 12/27 01:16 Order name: O2 Per Protocol; Complete Time: 01:17 ms3 12/27 01:16 Order name: O2 Sat Monitoring; Complete Time: 01:17 ms3 12/27 04:23 Order name: Urine Dipstick-Ancillary (obtain specimen); Complete Time: 04:49 ag7 EC:26 Rate is 60 beats/min. Rhythm is regular, Paced. Clinical impression: Paced. Interpreted ms3 by me. Reviewed by me. Administered Medications: 00:24 Drug: GI Cocktail without - (Maalox Suspension 30 ml, Lidocaine Liquid 2 % 15 ag7 ml) Route: PO; 01:24 Follow up: Response: No adverse reaction ag7 03:20 Drug: Lasix (furosemide) 40 mg Route: IVP; Site: right hand; bb 03:20 Drug: Potassium Chloride 40 mEq Route: PO; bb Disposition Summary: 12/27/21 02:55 Hospitalization Ordered Hospitalization Status: Inpatient Admission ms3 Provider: Parveen Crabtree ms3 Condition: Stable ms3 Problem: new ms3 Symptoms: are unchanged ms3 Bed/Room Type: Standard ms3 Location: Intensive Care Unit(12/27/21 09:47) dw Room Assignment: 3-(12/27/21 09:47) Diagnosis - Congestive heart failure ms3 - Hypokalemia ms3 - Hyponatremia ms3 - Dyspnea ms3 - Renal insufficiency ms3 Forms: - Medication Reconciliation Form ms3 - SBAR form ms3 Signatures: Dispatcher [employer] EDMS Zehra Mckinney RN RN mw Woody, Diana RN Kerry Gracia RN RN bb Sims, Marcus, DO DO ms3 Joi Ordaz RN RN ag7 Corrections: (The following items were deleted from the chart) 02:59 02:55 Telemetry/MedSurg (Inpatient) ms3 mw 02:59 02:55 ms3 mw 09:47 02:59 [facility] ER HOLD [facility] 09:47 02:59 ERHOLD- mw dw
[2021-12-27] MEDS ORDERED: POTASSIUM CL SA 10 MEQ TAB PO ONE ×2 (03:08→12:57)
[2021-12-27] MEDS ORDERED: FUROSEMIDE 40 MG/4 ML VIAL ONE (03:08)
--- OUTSIDE RECORDS SUMMARY | 2021-12-27 03:10 | XMS REPORT | Continuity of Care Document ---
:1940 Author Organization [facility] t Address [address] [place] [address] Care Team Providers Name Role Phone Eryn [...] 9-11 it y of level level 00:00: [place] [facility] Acute on Acute on Disease Active Unive rs chronic chronic 9 [place]y of diastolic diastolic [place] congest[place] congestive 00 Me dical heart heart Branch failure failure Chest pain Chest pain Disease Active U nivers 7-07 ity of 00:00: [place] [facility] Obesity Obesity Disease Active Overview: Univ ers 4-17 ICD10 ity of 00:00: Diagnosis Term Medical [employer] Branch Utility Type II or Type II [...] of demia) demia) 00:00: Diagnosis Term Medical [employer] Branch Utility Essential Essential Disease Active Uni vers hypertensi hypertensi 3-09 it y of on, benign on, benign [place] 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 U nivers unspecifie unspecifie 5-08 it y of d type d type 00:00: [place] diabetes diabetes Medica l mellitus mellitus 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, not ions, not stated as stated as uncontroll uncontroll ed(250.50) ed(250.50) Allergies, Adverse Reactions, Alerts Allergy Allergy Status Severity Reaction(s) Onset Inactive Treating Comm ents Source Name Type Date Date Clinician No Known DA Active U [facility] 10-04 [facility] 00:00: [address] No Known DA Active U [facility] Allergie 05-20 [facility] 00:00: [address] NO KNOWN Drug Active Univers ALLERGIE Class ity of S [facility] Social History Social Habit Start Date Stop Date Quantity Comments Source Tobacco Comment quit 30 years Univer sity of ago [place] [facility] Alcohol Comment 3 drinks (vodka) Uni versity of nightly [facility] Sex Assigned At Universit y of [facility] Branch Exposure to Unable to assess Univers ity of SARS-CoV-2 [facility] (event) Branch Tobacco use and 2020-05-30 2020-05-30 Never used Universit y of exposure 00:00:00 00:00:00 [facility] Alcohol intake 2020-05-30 2020-05-30 Current drinker Unive rsity of 00:00:00 00:00:00 of alcohol [facility] (finding) [place] Smoking Status Start Date Stop Date Source Never smoker [facility] Medications Ordered Filled Start Stop Current Ordering Indication Dosage Frequency Signature Comments Components Source Medication Medication Date Date Medication? Clinician (SIG) Name Name ASPIRIN 81 2020-0 Yes once daily U nivers MG ORAL 9-16 ity of CHEW 22:57: [address] Branch magnesium 2020-0 Yes 400mg Take [...] 9-16 mouth. ity of ITAMIN D3 22:57: [place] (VITAMIN 45 Medical D-3 ORAL) [place] MULTIVITAMI 0 Yes Take by Un audra N 9-16 mouth. ity of W-MINERALS/ 22:57: [place] [id number] Medical (CENTRUM Branch SILVER ORAL) ASPIRIN 81 2020-0 Yes once daily U nivers MG ORAL 9-16 ity of CHEW 22:57: [address] Branch magnesium 2020-0 Yes 400mg Take [...] 9-16 mouth. ity of ITAMIN D3 22:57: [place] (VITAMIN 45 Medical D-3 ORAL) Branch MULTIVITAMI [...] Medical per tablet Branch atorvastati 2020-0 Yes [id number] 20mg Take 1 Univers n 20 mg 9-16 tablet by ity of tablet 00:00: mouth at [place] 00 bedtime. Medical Branch primidone 2020-0 Yes [id number] 50mg Take 1 U nivers 50 mg 9-16 tablet by ity of tablet 00:00: mouth [place] 00 every 12 Medical (twelve) Branch hours. metoprolol 2020-0 Yes [id number] 25mg Take 1 Univers tartrate 25 9-16 tablet by ity of mg tablet 00:00: mouth 2 [place] 00 (two) Medical times Branch daily. sacubitriL- 2020-0 Yes [id number] 1{tbl} Take 1 Univers valsartan 9-16 tablet by ity o f 97-103 mg 00:00: mouth 2 [place] tablet 00 (two) Medical times Branch daily. levoFLOXaci 2020-0 Yes [id number] 500mg Take 1 Univers n 500 mg 9-16 tablet by ity of tablet 00:00: mouth [place] 00 every 24 Medical (twenty-fo Branch ur) hours. acidophilus 2020-0 Yes [id number] 1g Take 1 Univers 100 million 9-16 tablet by ity of cell tablet 00:00: mouth 2 [place] 00 (two) Medical times Branch daily. atorvastati 2020-0 Yes [id number] 20mg Take 1 Univers n 20 mg 9-16 tablet by ity of tablet 00:00: mouth at [place] 00 bedtime. Medical Branch primidone 2020-0 Yes [id number] 50mg Take 1 U nivers 50 mg 9-16 tablet by ity of tablet 00:00: mouth [place] 00 every 12 Medical (twelve) Branch hours. metoprolol 2020-0 Yes [id number] 25mg Take 1 Univers tartrate 25 9-16 tablet by ity of mg tablet 00:00: mouth 2 [place] 00 (two) Medical times Branch daily. sacubitriL- 2020-0 Yes [id number] 1{tbl} Take 1 Univers valsartan 9-16 tablet by ity o f 97-103 mg 00:00: mouth 2 [place] tablet 00 (two) Medical times Branch daily. levoFLOXaci 2020-0 Yes [id number] 500mg Take 1 Univers n 500 mg 9-16 tablet by ity of tablet 00:00: mouth [place] 00 every 24 Medical (twenty-fo Branch ur) hours. acidophilus 2020-0 Yes [id number] 1g Take 1 Univers 100 million 9-16 tablet by ity of cell tablet 00:00: mouth 2 [place] 00 (two) Medical times Branch daily. KCL 2020-0 2020- No 20meq 20 mEq, Univers (KLOR-CON 06-03 Oral, ONCE ity of M20) tablet 02:30: 01:54 NOW, 1 [place] as 20 mEq 00 :00 dose, [facility] 06/02/20 at Branch 2130, Routine levoFLOXaci 2019-0 Yes 750mg 750 mg, Un audra n -14 Oral, ity of (LEVAQUIN) 16:00: Q48H, [place] tablet 750 00 First dose Med ical mg on Tue [place] 06/02/20 at 1100, Until Discontinu ed, LICO
Re ason for Anti-Infec tive: Empiric Therapy for Suspected Infection< br>Empiric Therapy Site: Respirator y
Durat ion of therapy: 72 hours Polyethylen 2020-0 2020- No 17g 17 g, Univ ers e Glycol 06-0216 Oral, ity of 3350 14:00: 13:59 DAILY, 2 [place] (MIRALAX) 00 :00 doses, Medical powder 17 g First dose Br anch on Tue06/02/20 at 0900, Last dose on Tue06/03/20 at 0900, Routine sennosides 2019-0 Yes 8.6mg 8.6 mg, Uni vers (SENOKOT) 06-02 Oral, BID, ity of tablet 8.6 03:15: First dose [place] mg 00 on [place] Medical 06/01/20 at Branch 2215, Until Discontinu ed, Routine bisacodyL 2019- 2020- No 10mg 10 mg, Unive rs (DULCOLAX) 06-02 Rectal, ity o f suppository 03:15: 01:59 QHS, 3 [place] as 10 mg 00 :00 doses, Medical First dose Branch on [place] 06/01/20 at 2215, Last dose on Tue06/03/20 at 2100, Routine epoetin 2019- 2020- No 4000U 4,000 Univers renetta-epbx 06-01 Units, ity of (RETACRIT) 19:45: 19:59 Subcutaneo [place] injection 00 :00 us, ONCE, Medic al 4,000 Units 1 dose, [facility] 06/01/20 at 1445, Routine
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 Restricted medication : AKILAH ANDRE ANGELES furosemide 2020- No 40mg 40 mg, IV U nivers (LASIX) 06-01 Push, ity of injection 14:00: 17:48 DAILY, [place] 40 mg 00 :15 First dose Medical (after Branch last modificati on) on [place] 06/01/20 at 0900, Until Discontinu ed, LICO ferrous 2019-0 2020- No 325mg 325 mg, Unive rs sulfate 06-01 Oral, BID ity of tablet 325 13:00: 01:14 MEALS, [place] mg 00 :51 First dose Medical on [place] Branch 06/01/20 at 0800, Until Discontinu ed, [...] [place] 40 mEq 00 :00 dose, [facility] Medical 05/31/20 at Branch 1945, Routine magnesium 2020- No 2g 2 g, IV Univ ers sulfate in 06-01 Piggyback, it y of water 2 00:45: 01:23 ONCE, 1 [place] gram/50 mL 00 :00 dose, [facility] [place]cca (4 %) 05/31/20 at [place] infusion 2 1944, g Routine sodium Yes 125mg 125 mg, IV Univ ers ferric 05-31 Piggyback, ity of gluconate 14:00: DAILY, [place] (FERRLECIT) 00 First dose Me dical 125 mg in on [facility] NaCl 0.9% 05/31/20 at (NS) 100 mL 0900, IV Until piggyback Discontinu ed, 100 mL
Facu lty member approving Restricted medication : HELENA KUMAR sulfur 2019- 2020- No 5mL 5 mL, Univers hexafluorid 05-30 Intravenou i ty of e microsphr 19:00: 16:30 s, ONCE, 1 [place] (LUMASON) 00 :00 dose, Fri Medic al injection 5 05/30/20 at Br anch mL 1400, Routine
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
Reas on for Anti-Infec tive: Documented Infection< br>Documen moshe Infection Site: Respirator y
Durat ion of Therapy: 10 days docusate 2020-0 Yes 100mg 100 mg, Unive rs (COLACE) 9-11 Oral, BID, ity o f capsule 100 [...] on Tue Medical tablet 1 05/30/20 at [facility] h tablet 0800, Until Discontinu ed, Routine
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 Restricted medication : MEGADC heparin 2019-0 Yes 5000U 5,000 Univers (porcine) 05-30 Units, ity of injection 11:00: Subcutaneo [place] 5,000 Units 00 us, Q8H, Medi [place] First dose Branch on Tue05/30/20 at 0600, Until Discontinu ed, Routine furosemide 2019- No 40mg 40 mg, IV U nivers (LASIX) 05-3012 Push, Q8H, ity o f injection 11:00: [...] Medica l tablet 500 05/30/20 at [facility] mg 0115, Until Discontinu ed, Routine cholecalcif 2020-0 Yes 1000U 1,000 Univ ers [place] - Units, ity of (vitamin 06:15: Oral, BID, [...] 05-30 Oral, ity of (TYLENOL) 06:01: Q6HPRN, [place] tablet 650 34 Starting Medic al mg Fri Branch 05/30/20 at 0101, Until Discontinu ed, Routine, Temp > 38.5 C ondansetron 2020-0 Yes 4mg 4 mg, Slow Univers (ZOFRAN 05-30 IV Push, ity of (PF)) 06:01: Q6HPRN, [place] injection 4 16 Starting Medi [place] mg [...] First dose [place] mg 00 on Tue Medical 05/30/20 at Branch 0100, Until Discontinu ed, Routine metoprolol 2020-0 Yes 25mg 25 mg, Unive rs tartrate 05-30 Oral, BID, ity o f (LOPRESSOR) 06:00: First dose [place] tablet 25 00 on Tue Medical mg 05/30/20 at Branch 0100, Until Discontinu ed, Routine atorvastati 2020-0 Yes 40mg 40 mg, Univ ers n (LIPITOR) 05-30 Oral, QHS, it y of tablet 40 06:00: First dose [place] mg 00 on Fri Medical 05/30/20 at Branch 0100, Until Discontinu [...] Medi [place] Inch ONCE, 1 Branch dose, [facility] 05/29/20 at 2215, LICO furosemide 2020-0 2020- No 60mg 60 mg, IV U nivers (LASIX) 05-30 Push, ity of injection 03:15: 03:39 ONCE, 1 [place] 60 mg 00 :00 dose, [facility] Medical 05/29/20 at Branch 2215, LICO albuterol 2020-0 2020- No 8{puff} 8 Puff, U nivers (VENTOLIN) 05-30 Inhalation it y of inhaler 8 01:45: 01:04 , ONCE, 1 [place] Puff 00 :00 dose, [place] [facility] 05/29/20 at Branch 2045, LICO
Is this order for a patient with suspected or confirmed COVID-19 infection? Yes atorvastati 2020- No [id number] 20mg Take 1 Univers n (LIPITOR) 01-27 tablet by it y of 20 mg 00:00: 00:00 mouth at [place] tablet 00 :00 bedtime. Medical Branch Insulin 2020- No [id number] 8U inject 8 U nivers Glargine 01-27 [...] 20:55:00 156 mm[Hg] Univer sity of pressure [place] [facility] Diastolic blood 2020-06-04 20:55:00 85 mm[Hg] Unive rsity of pressure [facility] Branch Respiratory rate 2020-06-04 20:55:00 18 /min Univ ersity of [facility] Oxygen saturation in 2020-06-04 20:55:00 92 /min University of Arterial blood by [facility] mecca Pulse oximetry Branch Heart rate 2020-06-04 20:00:00 67 /min Universi ty of [facility] Body temperature 2020-06-04 20:00:00 36.06 Raz[place] Univ ersity of [facility] Body weight 2020-06-03 06:15:00 65.998 kg Universi ty of [facility] BMI 2020-06-03 06:15:00 24.21 kg/m2 Universi ty of [facility] Body height 2020-05-30 06:15:00 165.1 cm Universi ty of [facility] Systolic blood 2020-06-04 20:55:00 156 mm[Hg] Univer sity of pressure [facility] Branch Diastolic blood 2020-06-04 20:55:00 85 mm[Hg] Unive rsity of pressure [facility] Branch Respiratory rate 2020-06-04 20:55:00 18 /min Univ ersity of [facility] Oxygen saturation in 2020-06-04 20:55:00 92 /min University of Arterial blood by [facility] Pulse oximetry Branch Heart rate 2020-06-04 20:00:00 67 /min Universi ty of [facility] Body temperature 2020-06-04 20:00:00 36.06 Razia Univ ersity of [facility] Branch Body weight 2020-06-03 06:15:00 65.998 kg Universi ty of [facility] Branch BMI 2020-06-03 06:15:00 24.21 kg/m2 Universi ty of [facility] Body height 2020-05-30 06:15:00 165.1 cm Universi ty [facility] Procedures Procedure Date / Time Performing Clinician Source Performed POCT GLUCOSE (AUTOMATED) 2020-06-04 21:56:00 [facility] 2020-06-04 16:48:00 Arben Julien Uni versity of [facility] XR CHEST 1 VW 2020-06-04 13:56:16 Vanessa Shah [facility] POCT GLUCOSE (AUTOMATED) 2020-06-04 12:44:00 Arben Julien Uni versity of [facility] POCT GLUCOSE (AUTOMATED) 2020-06-04 01:32:00 Arben Julien Uni versity of [facility] POCT GLUCOSE (AUTOMATED) 2020-06-03 21:46:00 Arben Julien Uni versity of [facility] POCT GLUCOSE (AUTOMATED) 2020-06-03 16:54:00 Arben Julien Uni versity of [facility] POCT GLUCOSE (AUTOMATED) 2020-06-03 12:50:00 Arben Julien Uni versity of [facility] COMP. METABOLIC PANEL 2020-06-03 11:37:00 [id number] CBC WITH DIFF 2020-06-03 11:36:00 Sukhwinder Hughes [facility] POCT GLUCOSE (AUTOMATED) 2020-06-03 01:18:00 Arben Julien Uni versity of [facility] POCT GLUCOSE (AUTOMATED) 2020-06-02 21:22:00 Arben Julien Uni versity of [facility] FL MODIFIED BARIUM 2020-06-02 19:00:00 Rufus Goodwin [facility] POCT GLUCOSE (AUTOMATED) 2020-06-02 16:59:00 Arben Julien Uni versity of [facility] POCT GLUCOSE (AUTOMATED) 2020-06-02 13:26:00 Arben Julien Uni versity of [facility] Branch MAGNESIUM 2020-06-02 10:40:00 Buddy [facility] COMP. METABOLIC PANEL 2020-06-02 10:40:00 Buddy [facility] ([id number]) [facility] CBC WITH DIFF 2020-06-02 10:40:00 Wily hilda [facility] POCT GLUCOSE (AUTOMATED) 2020-06-01 21:51:00 Arben Julien Uni versity of [facility] POCT GLUCOSE (AUTOMATED) 2020-06-01 17:00:00 Arben Julien [facility] BLOOD CULTURE SCREEN 2020-06-01 15:42:00 Rufus Goodwin [facility] BLOOD CULTURE SCREEN 2020-06-01 15:29:00 Rufus Goodwin [facility] POCT GLUCOSE (AUTOMATED) 2020-06-01 13:18:00 Arben Julien [facility] MAGNESIUM 2020-06-01 10:14:00 Rufus Goodwin [facility] COMP. METABOLIC PANEL 2020-06-01 10:14:00 Rufus Goodwin [facility] ([id number]) [facility] ACUTE CARE VENOUS BLOOD 2020-06-01 10:14:00 Arben Julien [facility] CBC WITH DIFF 2020-06-01 10:14:00 [facility] N-TERMINAL PRO-BNP 2020-06-01 10:14:00 Wily hilda [facility] POCT GLUCOSE (AUTOMATED) 2020-06-01 00:42:00 Wily hilda [facility] POCT GLUCOSE (AUTOMATED) 2020-05-31 21:51:00 Wily hilda [facility] AMMONIA, PLASMA 2020-05-31 17:01:00 Rufus Goodwin [facility] POCT GLUCOSE (AUTOMATED) 2020-05-31 16:59:00 Arben Julien [facility] URIC ACID 2020-05-31 08:32:00 [facility] MAGNESIUM 2020-05-31 08:32:00 [facility] TROPONIN I 2020-05-31 08:32:00 [facility] COMP. METABOLIC PANEL 2020-05-31 08:32:00 Wily hilda [facility] ([id number]) [facility] CBC WITH DIFF 2020-05-31 08:32:00 [facility] N-TERMINAL PRO-BNP 2020-05-31 08:32:00 Wily hilda [facility] POCT GLUCOSE (AUTOMATED) 2020-05-31 00:32:00 Arben Julien [facility] POCT GLUCOSE (AUTOMATED) 2020-05-30 20:44:00 Wily hilda [facility] POCT GLUCOSE (AUTOMATED) 2020-05-30 17:04:00 Arben Julien [facility] TROPONIN I 2020-05-30 16:25:00 Wily hilda [facility] ECHO ROUTINE W/DOPPLER 2020-05-30 16:08:22 Arben Julien [facility] POCT GLUCOSE (AUTOMATED) 2020-05-30 13:56:00 Arben Julien [facility] CT THORAX WO CONTRAST 2020-05-30 10:26:42 Arben Julien [facility] SEDIMENTATION RATE 2020-05-30 09:51:00 Wily hilda [facility] CBC WITH DIFF 2020-05-30 09:51:00 [facility] URIC ACID 2020-05-30 08:34:00 [facility] MAGNESIUM 2020-05-30 08:34:00 [facility] CORTISOL AM 2020-05-30 08:34:00 [facility] TROPONIN I 2020-05-30 08:34:00 [facility] COMP. METABOLIC PANEL 2020-05-30 08:34:00 Wily hilda [facility] ([id number]) [facility] IRON PANEL 2020-05-30 08:34:00 [facility] N-TERMINAL PRO-BNP 2020-05-30 08:34:00 Wily hilda [facility] LEGIONELLA URINARY 2020-05-30 08:29:00 Wily hilda [facility] ANTIGEN TST [facility] SODIUM, URINE RANDOM 2020-05-30 08:28:00 Wily hilda [facility] PROTEIN CREAT RATIO 2020-05-30 08:28:00 Arben Julien [facility] URINE RANDOM [facility] PNEUMOCOCCAL ANTIGEN 2020-05-30 08:27:00 Arben Julien [facility] OSMOLALITY URINE 2020-05-30 08:25:00 Wily [facility] UREA NITROGEN, URINE 2020-05-30 08:25:00 Arben Julien [facility] RANDOM [facility] URINE CULTURE 2020-05-30 08:24:00 Arben Julien [facility] OSMOLALITY SERUM 2020-05-30 07:08:00 Wily hilda [facility] VITAMIN B12, LEVEL 2020-05-30 07:08:00 Arben Julien [facility] FOLATE 2020-05-30 07:08:00 Arben Julien [facility] PROTHROMBIN TIME / INR 2020-05-30 07:08:00 Arben Julien [facility] MYCOPLASMA PNEUMONIAE 2020-05-30 07:08:00 Arben Julien [facility] ANTIBODY, IGM [facility] VITAMIN D, 25-OH 2020-05-30 07:08:00 Arben Julien [facility] PROCALCITONIN 2020-05-30 07:08:00 Arben Julien [facility] BLOOD CULTURE SCREEN 2020-05-30 07:07:00 Arben Julien [facility] BLOOD CULTURE WORKUP 2020-05-30 07:07:00 Arben Julien [facility] BLOOD CULTURE WORKUP 2020-05-30 07:07:00 Arben Julien [facility] GRAM POSITIVE BLOOD 2020-05-30 07:07:00 [facility] PROBE-AEROBIC RESPIRATORY PANEL BY PCR 2020-05-30 05:20:00 Arben Julien [facility] COVID-19 (PCR MOLECULAR 2020-05-30 05:20:00 Arben Julien [facility] TESTING) [facility] Branch EXTERNAL PROVIDER 2020-05-30 05:01:00 Doctor Unassigned, No Univ [facility] RECORDS Name Medical Branch URINALYSIS 2020-05-30 03:39:00 Trice Kraft [facility] XR CHEST 1 VW 2020-05-30 01:45:07 Trice Kraft [facility] CT HEAD WO CONTRAST 2020-05-30 01:34:53 Trice Kraft [facility] EKG-12 LEAD 2020-05-30 01:08:00 Trice Kraft [facility] AC ABG + LACTIC ACID 2020-05-30 01:06:00 Trice Kraft [facility] POCT GLUCOSE(AGE 2020-05-30 01:04:00 Trice Kraft [facility] >30DAYS) [facility] POCT GLUCOSE (AUTOMATED) 2020-05-30 01:03:00 [facility]OS[facility] 2020-05-30 00:59:00 [facility] CREATINE KINASE 2020-05-30 00:59:00 [facility] URIC ACID 2020-05-30 00:59:00 [facility] MAGNESIUM 2020-05-30 00:59:00 [facility] FERRITIN SERUM 2020-05-30 00:59:00 [facility] TROPONIN I 2020-05-30 00:59:00 Trice Kraft [facility] THYROID STIMULATING 2020-05-30 00:59:00 Wily hilda [facility] HORMONE [facility] Branch COMP. METABOLIC PANEL 2020-05-30 00:59:00 Trice Kraft [facility] ([id number]) [facility] Branch LIPID PANEL 2020-05-30 00:59:00 Wily hilda [facility] ([id number])(TOTAL Medical Branch CHOLESTEROL, TRIGLYCERIDES, HDL) CBC WITH DIFF 2020-05-30 00:59:00 Trice Kraft [facility] GLYCOSYLATED HEMOGLOBIN 2020-05-30 00:59:00 Arben Julien [facility] (A1C) Medical Branch N-TERMINAL PRO-BNP 2020-05-30 00:59:00 Trice Kraft [facility] Medical [place] COVID-19 (ID NOW RAPID 2020-05-30 00:59:00 Ericaharrietsabrina Trice Lauryn [facility] TESTING) Medical Branch EKG-12 LEAD 2020-05-30 00:39:36 EricaharrietSerenity bennettangelina Lauryn [facility] NOTICE OF PRIVACY 2020-05-29 23:34:11 Doctor Unassigned, No [facility] PRACTICES Name Medical Branch CONSENT/REFUSAL FOR 2020-05-29 23:33:17 [facility] Name Medical Branch Encounters Start End Encounter Admission Attending Care Care Encounter Source Date/Time Date/Time Type Type Clinicians Facility Department ID 2020-06-05 2020-06-05 Transition Mary Kay Cerna [id number] 00:00:00 00:00:00 of Care Cody Stover [id number] [place] [id number] 2020-06-05 2020-06-05 Transition Mary Kay Cerna [id number] [facility] 00:00:00 00:00:00 of Care Cody Stover [id number] ity of [place] [id number] [facility] [id number] [facility] 403 Branch 2020-05-29 2020-06-04 [facility] 1.2.840. 114 [id number] 18:50:00 17:57:00 Encounter Arben Julien [id number] [place] [id number] [place] [id number] 2020-05-29 2020-06-04 [facility] 1.2.840. 114 [id number] Univers 18:50:00 17:57:00 Encounter Arben Julien [id number] ity of [place] [id number] [facility] [id number] [facility] 080 Branch 2020-05-29 2020-05-29 Emergency X [facility] ERT [id number] Univers 18:28:00 18:28:00 ity of [place] [facility] Results Test Description Test Time Test Comments Results Result Comments Source POCT GLUCOSE (AUTOMATED) 2020-06-04 21:59:00 Test Item Value Reference Range Interpretation Comme nts POCT GLU (test code = [id number]) 133 mg/dL 70-110 H Lab Interpretation (test code = 76073-6) Abnormal [facility]2020-06-04 17:13:00 Test Item Value Reference Range Interpretation Comments POCT GLU (test code = [id number]) 154 mg/dL 70-110 H Lab Interpretation (test code = Abnormal 19607-9) [facility] 1 [id number] 14:00:56HISTORY: Follow-up of CHF. TECHNIQUE: AP view [...] ifany, residual pulmonary edema seen at this time.[facility], Radiant Results Inft User - 06/04/2020 9:02 [...] ifany, residual pulmonary edema seen at this time.[facility] GLUCOSE (AUTOMATED)2020-06-04 13:19:00 Test Item Value Reference Range Interpretation Comments POCT GLU (test code = [id number]) 98 mg/dL 70-110 Lab Interpretation (test code = Normal 80840-6) [facility]2020-06-04 01:35:00 Test Item Value Reference Range Interpretation Comments POCT GLU (test code = [id number]) 192 mg/dL 70-110 H Lab Interpretation (test code = Abnormal 02010-7) [facility] GLUCOSE (AUTOMATED)2020-06-03 21:51:00 Test Item Value Reference Range Interpretation Comments POCT GLU (test code = [id number]) 98 mg/dL 70-110 Lab Interpretation (test code = Normal 91828-1) [facility] GLUCOSE (AUTOMATED)2020-06-03 17:28:00 Test Item Value Reference Range Interpretation Comments POCT GLU (test code = 6543858004) 195 mg/dL 70-110 H Lab Interpretation (test code = Abnormal 91483-5) [facility] GLUCOSE (AUTOMATED)2020-06-03 13:43:00 Test Item Value Reference Range Interpretation Comments POCT GLU (test code = 0788431139) 98 mg/dL 70-110 Lab Interpretation (test code = Normal 10242-6) [facility] WITH [id number] 13:10:00 Test Item Value Reference Range Interpretation [...] RDW-SD (test code = 46.4 fL 38.5-51.6 44935-4) RDW-CV (test code = 13.7 % 12.1-15.4 788-0) PLT (test code = See_Comment L [Automated 777-3) message] The sy stem which generated this result transmitted reference range : 150 - 328 10*3/ ?L. The reference r martin was not used to interpret this result as normal/abnormal . MPV (test code = 10.5 fL 9.8-13 02789-9) NRBC/100 WBC (test See_Comment [Automat ed code = 6272737256) message] The system which generated this result transmitted reference range : 0.0 - 10.0 /100 WBCs. The refer ence range was not u sed to interpret th is result as normal/abnormal . NRBC x10^3 (test code <0.01 See_Comment [Auto mated = 3556949742) message] The s ystem which generated this result transmitted reference range : 10*3/?L. The reference range was not used to interpret this result as normal/abnormal . GRAN MAT (NEUT) % 55.9 % (test code = 770-8) IMM GRAN % (test code 0.40 % = 7673995376) LYMPH % (test code = 16.5 % 736-9) MONO % (test code = 12.4 % 5905-5) EOS % (test code = 14.0 % 713-8) BASO % (test code = 0.8 % 706-2) GRAN MAT x10^3(ANC) 1.35 10*3/uL 1.99-6.95 L (test code = 1686041633) IMM GRAN x10^3 (test <0.03 0-0.06 code = 3025660037) LYMPH x10^3 (test code 0.40 10*3/uL 1.09-3.23 L = 731-0) MONO x10^3 (test code 0.30 10*3/uL 0.36-1.02 L = 742-7) EOS x10^3 (test code = 0.34 10*3/uL 0.06-0.53 711-2) BASO x10^3 (test code <0.03 0.01-0.09 = 704-7) Lab Interpretation Abnormal (test code = 93808-6) [facility]62593[facility]2020-[facility]-03 12:46:00 Test Item Value Reference Range Interpretation Comments NA (test code = 136 mmol/L 135-145 8605120628) K (test code = 3.9 mmol/L 3.5-5 3237831737) CL (test code = 100 mmol/L 98-108 8535639982) CO2 TOTAL (test code = 27 mmol/L 23-31 7924429846) AGAP (test code = 2-16 0514635476) BUN (test code = 37 mg/dL 7-23 H 5256693272) GLUCOSE (test code = 87 mg/dL 70-110 1218389924) CREATININE (test code = 1.85 mg/dL 0.6-1.25 H 3500283722) TOTAL BILI (test code = 0.4 mg/dL 0.1-1.5 4022446892) CALCIUM (test code = 9.4 mg/dL 8.6-10.6 7633629578) T PROTEIN (test code = 6.3 g/dL 6.3-8.2 0029669336) ALBUMIN (test code = 3.2 g/dL 3.5-5 L 7166205669) ALK PHOS (test code = 58 U/L 34-122 5675578136) ALTv (test code = 22 U/L 5-50 1742-6) AST(SGOT) (test code = 31 U/L 13-40 0740855266) eGFR Calculation mL/min/1.73m2 (Non-) (test code = 9685727743) eGFR Calculation mL/min/1.73m2 () (test code = 0648741628) EMIR (test code = EMIR) Association of [...] tests). Lab Interpretation Abnormal (test code = 62246-0) [facility] GLUCOSE (AUTOMATED)2020-06-03 01:56:00 Test Item Value Reference Range Interpretation Comments POCT GLU (test code = 7248021950) 152 mg/dL 70-110 H Lab Interpretation (test code = Abnormal 77315-6) [facility] BARIUM SWALLOW, (COOKIE)2020-06-02 23:24:43 Flash laryngeal penetration [...] nectar thick liquid, puree or jewelry solids. [facility], Radiant Results Inft User- 06/02/2020 6:25 PM [...] to the speech pathologist's report for further details.[facility] GLUCOSE (AUTOMATED)2020-06-02 21:24:00 Test Item Value Reference Range Interpretation Comments POCT GLU (test code = 129 mg/dL 70-110 H Notifi ed Provider 3568306845) Lab Interpretation (test Abnormal code = 28788-2) [facility] GLUCOSE (AUTOMATED)2020-06-02 17:12:00 Test Item Value Reference Range Interpretation Comments POCT GLU (test code = 159 mg/dL 70-110 H Notifi ed Provider 2596040249) Lab Interpretation (test Abnormal code = 82227-0) [facility] WITH [id number] 14:34:00 Test Item Value Reference Range Interpretation [...] RDW-SD (test code = 46.7 fL 38.5-51.6 89425-3) RDW-CV (test code = 13.9 % 12.1-15.4 788-0) PLT (test code = See_Comment [Automated 777-3) message] The sy stem which generated this result transmitted reference range : 150 - 328 10*3/ ?L. The reference r martin was not used to interpret this result as normal/abnormal . MPV (test code = 10.4 fL 9.8-13 62362-8) NRBC/100 WBC (test See_Comment [Automat ed code = 4133552375) message] The system which generated this result transmitted reference range : 0.0 - 10.0 /100 WBCs. The refer ence range was not u sed to interpret th is result as normal/abnormal . NRBC x10^3 (test code <0.01 See_Comment [Auto mated = 6561817499) message] The s ystem which generated this result transmitted reference range : 10*3/?L. The reference range was not used to interpret this result as normal/abnormal . GRAN MAT (NEUT) % 58.9 % (test code = 770-8) IMM GRAN % (test code 0.40 % = 4962141726) LYMPH % (test code = 11.3 % 736-9) MONO % (test code = 10.8 % 5905-5) EOS % (test code = 17.3 % 713-8) BASO % (test code = 1.3 % 706-2) GRAN MAT x10^3(ANC) 1.36 10*3/uL 1.99-6.95 L (test code = 0835139925) IMM GRAN x10^3 (test <0.03 0-0.06 code = 2145570097) LYMPH x10^3 (test code 0.26 10*3/uL 1.09-3.23 L = 731-0) MONO x10^3 (test code 0.25 10*3/uL 0.36-1.02 L = 742-7) EOS x10^3 (test code = 0.40 10*3/uL 0.06-0.53 711-2) BASO x10^3 (test code 0.03 10*3/uL 0.01-0.09 = 704-7) Lab Interpretation Abnormal (test code = 44572-5) [facility] 13:45:00 Test Item Value Reference Range Interpretation Comments POCT GLU (test code = 4813845217) 105 mg/dL 70-110 Lab Interpretation (test code = Normal 40782-6) [facility] [id number] 13:39:00 Test Item Value Reference Range Interpretation Comments Blood Culture Staphylococcus Organism elvia ntified Workup (test epidermidis by DNA probeFor code = 600-7) susceptibility results, refer to culture # - [id number] Gram stain Gram positive cocci Anaerobi c Bottle (test code = 664-3) [facility]. METABOLIC PANEL (82878)2020-06-02 13:10:00 Test Item Value Reference Range Interpretation Comments NA (test code = 133 mmol/L 135-145 L 6310601793) K (test code = 3.4 mmol/L 3.5-5 L 2385853807) CL (test code = 96 mmol/L 98-108 L 9675115356) CO2 TOTAL (test code = 28 mmol/L 23-31 4704031220) AGAP (test code = 2-16 6655703664) BUN (test code = 34 mg/dL 7-23 H 6341484248) GLUCOSE (test code = 135 mg/dL 70-110 H 2591792682) CREATININE (test code = 1.83 mg/dL 0.6-1.25 H 8451598100) TOTAL BILI (test code = 0.4 mg/dL 0.1-1.1 7453643789) CALCIUM (test code = 9.4 mg/dL 8.6-10.6 3752658596) T PROTEIN (test code = 6.0 g/dL 6.3-8.2 L 9090546996) ALBUMIN (test code = 3.1 g/dL 3.5-5 L 5134801057) ALK PHOS (test code = 52 U/L 34-122 8070543469) ALTv (test code = 25 U/L 5-50 1742-6) AST(SGOT) (test code = 31 U/L 13-40 6682728091) eGFR Calculation mL/min/1.73m2 (Non-) (test code = 6734629818) eGFR Calculation mL/min/1.73m2 () (test code = 1627709904) EMIR (test code = EMIR) Association of [...] tests). Lab Interpretation Abnormal (test code = 38625-7) [facility] 13:10:00 Test Item Value Reference Range Interpretation Comments MAGNESIUM (test code = 6390506403) 1.8 mg/dL 1.7-2.4 Lab Interpretation (test code = Normal 95145-4) [facility] HospitalMYCOPLASMA PNEUMONIAE ANTIBODY, [id number] 11:34:00 Test Item Value Reference Range Interpretation [...] 12 months post-infection. Performed By: YUMIKO amado[address] [place] [address]S aboratory Director: Julisa Choi MD [Aut omated message] The sy stem which generated this result transmit moshe reference range : <=0.76. The reference r martin was not used to int erpret this result as normal/abnormal . [facility] [id number] 22:31:00 Test Item Value Reference Range Interpretation Comments Blood Culture-Aerobic Culture positive. No growth AA P revious (test code = 80679-9) See Blood prelim inary Culture Workup verified resu lt for additional was Culture I n information. Progress on 05/30/2020 at 03 19 CDT Blood Culture positive. No growth AA Previous Culture-Anaerobic See Blood preliminar y (test code = 26937-3) Culture Workup veri fied result for additional was Culture I n information. Progress on 05/30/2020 at 07 01 CDT Lab Interpretation Abnormal (test code = 79296-3) [facility]2020-06-01 21:59:00 Test Item Value Reference Range Interpretation Comments POCT GLU (test code = 8233309903) 101 mg/dL 70-110 Lab Interpretation (test code = Normal 29922-5) [facility] GLUCOSE (AUTOMATED)2020-06-01 17:53:00 Test Item Value Reference Range Interpretation Comments POCT GLU (test code = 3153936834) 184 mg/dL 70-110 H Lab Interpretation (test code = Abnormal 29115-3) [facility] [id number] 17:20:00 Test Item Value Reference Range Interpretation Comments Blood Culture-Aerobic Culture positive. No growth AA P revious (test code = 75546-5) See Blood prelim inary Culture Workup verified resu lt for additional was Culture I n information. Progress on 05/30/2020 at 03 19 CDT Blood Culture positive. No growth AA Previous Culture-Anaerobic See Blood preliminar y (test code = 26468-0) Culture Workup veri fied result for additional was Culture I n information. Progress on 05/30/2020 at 03 19 CDT Lab Interpretation Abnormal (test code = 01858-6) [facility] GLUCOSE (AUTOMATED)2020-06-01 13:22:00 Test Item Value Reference Range Interpretation Comments POCT GLU (test code = 9915666103) 109 mg/dL 70-110 Lab Interpretation (test code = Normal 74166-8) [facility] WITH [id number] 11:12:00 Test Item Value Reference Range Interpretation [...] RDW-SD (test code = 46.0 fL 38.5-51.6 12342-1) RDW-CV (test code = 13.8 % 12.1-15.4 788-0) PLT (test code = See_Comment L [Automated 777-3) message] The sy stem which generated this result transmitted reference range : 150 - 328 10*3/ ?L. The reference r martin was not used to interpret this result as normal/abnormal . MPV (test code = 10.3 fL 9.8-13 68178-9) NRBC/100 WBC (test See_Comment [Automat ed code = 8450570060) message] The system which generated this result transmitted reference range : 0.0 - 10.0 /100 WBCs. The refer ence range was not u sed to interpret th is result as normal/abnormal . NRBC x10^3 (test code <0.01 See_Comment [Auto mated = 6483947175) message] The s ystem which generated this result transmitted reference range : 10*3/?L. The reference range was not used to interpret this result as normal/abnormal . GRAN MAT (NEUT) % 71.9 % (test code = 770-8) IMM GRAN % (test code 0.30 % = 1106819913) LYMPH % (test code = 8.0 % 736-9) MONO % (test code = 10.5 % 5905-5) EOS % (test code = 8.4 % 713-8) BASO % (test code = 0.9 % 706-2) GRAN MAT x10^3(ANC) 2.32 10*3/uL 1.99-6.95 (test code = 0990339890) IMM GRAN x10^3 (test <0.03 0-0.06 code = 2765582591) LYMPH x10^3 (test code 0.26 10*3/uL 1.09-3.23 L = 731-0) MONO x10^3 (test code 0.34 10*3/uL 0.36-1.02 L = 742-7) EOS x10^3 (test code = 0.27 10*3/uL 0.06-0.53 711-2) BASO x10^3 (test code 0.03 10*3/uL 0.01-0.09 = 704-7) Lab Interpretation Abnormal (test code = 02177-9) [facility] [id number] 11:07:00 Test Item Value Reference Range Interpretation Comments NT-proBNP (test code 14267 pg/mL See_Comment H [Autom ated = 3987691476) message] The system which generated this result transmitted reference range : <=450. The reference range was not used to interpret this result as normal/abnormal . EMIR (test code = EMIR) Biotin has been reported to cause a negative bias, interpret results relative to patient's use of biotin. Lab Interpretation Abnormal (test code = 98869-5) [facility]OL[facility] (59783)2020-06-01 11:03:00 Test Item Value Reference Range Interpretation Comments NA (test code = 136 mmol/L 135-145 0955180891) K (test code = 3.9 mmol/L 3.5-5 5284193360) CL (test code = 97 mmol/L 98-108 L 5782288554) CO2 TOTAL (test code = 30 mmol/L 23-31 0433554720) AGAP (test code = 2-16 7919073010) BUN (test code = 34 mg/dL 7-23 H 8862362626) GLUCOSE (test code = 112 mg/dL 70-110 H 6576442756) CREATININE (test code = 1.81 mg/dL 0.6-1.25 H 9079581696) TOTAL BILI (test code = 0.5 mg/dL 0.1-1.7 9025352988) CALCIUM (test code = 9.5 mg/dL 8.6-10.6 7949235447) T PROTEIN (test code = 6.2 g/dL 6.3-8.2 L 8315849136) ALBUMIN (test code = 3.2 g/dL 3.5-5 L 5190674030) ALK PHOS (test code = 58 U/L 34-122 2132570123) ALTv (test code = 32 U/L 5-50 1742-6) AST(SGOT) (test code = 38 U/L 13-40 7126947158) eGFR Calculation mL/min/1.73m2 (Non-) (test code = 0587736639) eGFR Calculation mL/min/1.73m2 () (test code = 4802630124) EMIR (test code = EMIR) Association of [...] tests). Lab Interpretation Abnormal (test code = 30042-4) [facility]2020-[facility] 11:03:00 Test Item Value Reference Range Interpretation Comments MAGNESIUM (test code = 0991420204) 2.0 mg/dL 1.7-2.4 Lab Interpretation (test code = Normal 14971-6) [facility] B[facility] [id number] 10:21:00 Test Item Value Reference Range Interpretation Comments PH (test code = 7.32-7.42 1814243808) PCO2 GIFTY (test code = See_Comment [Auto mated message] The 1890227194) system which ge nerated this result transmit moshe reference range : 41 - 51 mmHg. The refer ence range was not used to interpret this result as normal/abnormal . PO2 GIFTY (test code = See_Comment [Autom ated message] The 3775337182) system which ge nerated this result transmit moshe reference range : 25 - 40 mmHg. The refer ence range was not used to interpret this result as normal/abnormal . HCO3 GIFTY (test code = See_Comment [Auto mated message] The 4734556957) system which ge nerated this result transmit moshe reference range : 24 - 28 mEq/L. The refe rence range was not used to interpret this result as normal/abnormal . AC VBE(BEAKER) (test mEq/L code = 2085561038) [facility] GLUCOSE (AUTOMATED)2020-06-01 01:53:00 Test Item Value Reference Range Interpretation Comments POCT GLU (test code = 9866275463) 124 mg/dL 70-110 H Lab Interpretation (test code = Abnormal 24042-2) [facility] GLUCOSE (AUTOMATED)2020-05-31 22:35:00 Test Item Value Reference Range Interpretation Comments POCT GLU (test code = 0124764800) 105 mg/dL 70-110 Lab Interpretation (test code = Normal 52588-1) [facility] GLUCOSE (AUTOMATED)2020-05-31 17:52:00 Test Item Value Reference Range Interpretation Comments POCT GLU (test code = 4694222703) 106 mg/dL 70-110 Lab Interpretation (test code = Normal 83609-0) [facility]AMMONIA, [id number] 17:33:00 Test Item Value Reference Range Interpretation Comments AMMONIA (test code = 4581077970) <9 9-33 L Lab Interpretation (test code = Abnormal 36078-2) [facility] HospitalGRAM POSITIVE BLOOD PATHOGENS DNA [id number] 14:44:00 Test Item Value Reference Range Interpretation Comments Coagulase Negative Positive Negative A Staphylococcus (test code = 69871-3) EMIR (test code = EMIR) Coagulase negative [...] contact the Antimicrobial Stewardship Program with questions.Pager: ?[phone] Testing included eleven identification and three resistance marker targets. Lab Interpretation Abnormal (test code = 93025-4) [facility]2020-05-31 13:09:00 Test Item Value Reference Range Interpretation Comments POCT GLU (test code = 9169986863) 154 mg/dL 70-110 H Lab Interpretation (test code = Abnormal 65044-8) [facility]URINE [id number] 12:11:00 Test Item Value Reference Range Interpretation Comments URINE CULTURE (test No aerobic growth (< code = 630-4) 1000 CFU/mL) [facility]N-[facility]MINAL [id number] 11:51:00 Test Item Value Reference Range Interpretation Comments NT-proBNP (test code 29362 pg/mL See_Comment H [Autom ated = 6785293348) message] The system which generated this result transmitted reference range : <=450. The reference range was not used to interpret this result as normal/abnormal . EMIR (test code = EMIR) Biotin has been reported to cause a negative bias, interpret results relative to patient's use of biotin. Lab Interpretation Abnormal (test code = 84662-6) [facility]URIC [id number] 11:25:00 Test Item Value Reference Range Interpretation Comments URIC ACID (test code = 9328876007) 9.0 mg/dL 3.6-8 H Lab Interpretation (test code = Abnormal 49567-7) [facility] WITH [id number] 11:02:00 Test Item Value Reference Range Interpretation [...] RDW-SD (test code = 47.7 fL 38.5-51.6 19996-3) RDW-CV (test code = 14.0 % 12.1-15.4 788-0) PLT (test code = See_Comment L [Automated 777-3) message] The sy stem which generated this result transmitted reference range : 150 - 328 10*3/ ?L. The reference r martin was not used to interpret this result as normal/abnormal . MPV (test code = 10.5 fL 9.8-13 79445-2) NRBC/100 WBC (test See_Comment [Automat ed code = 7118765542) message] The system which generated this result transmitted reference range : 0.0 - 10.0 /100 WBCs. The refer ence range was not u sed to interpret th is result as normal/abnormal . NRBC x10^3 (test code <0.01 See_Comment [Auto mated = 9637149562) message] The s ystem which generated this result transmitted reference range : 10*3/?L. The reference range was not used to interpret this result as normal/abnormal . GRAN MAT (NEUT) % 81.0 % (test code = 770-8) IMM GRAN % (test code 0.40 % = 0055002049) LYMPH % (test code = 4.8 % 736-9) MONO % (test code = 11.5 % 5905-5) EOS % (test code = 1.7 % 713-8) BASO % (test code = 0.6 % 706-2) GRAN MAT x10^3(ANC) 4.23 10*3/uL 1.99-6.95 (test code = 7731099493) IMM GRAN x10^3 (test <0.03 0-0.06 code = 7338117851) LYMPH x10^3 (test code 0.25 10*3/uL 1.09-3.23 L = 731-0) MONO x10^3 (test code 0.60 10*3/uL 0.36-1.02 = 742-7) EOS x10^3 (test code = 0.09 10*3/uL 0.06-0.53 711-2) BASO x10^3 (test code 0.03 10*3/uL 0.01-0.09 = 704-7) Lab Interpretation Abnormal (test code = 27626-2) [facility] [id number] 10:45:00 Test Item Value Reference Range Interpretation Comments TROPONIN I (test 0.167 ng/mL See_Comment H [Automated code = 0357047614) message] The system which generated this result [...] ? Lab Interpretation Abnormal (test code = 30231-6) [facility]. METABOLIC PANEL (53840)2020-05-31 10:35:00 Test Item Value Reference Range Interpretation Comments NA (test code = 133 mmol/L 135-145 L 4382309657) K (test code = 3.4 mmol/L 3.5-5 L 0324587159) CL (test code = 95 mmol/L 98-108 L 9372232368) CO2 TOTAL (test code = 29 mmol/L 23-31 9639741133) AGAP (test code = 2-16 3616218583) BUN (test code = 36 mg/dL 7-23 H 0590197971) GLUCOSE (test code = 136 mg/dL 70-110 H 4402775050) CREATININE (test code = 1.71 mg/dL 0.6-1.25 H 5314379170) TOTAL BILI (test code = 0.8 mg/dL 0.1-1.4 0751340195) CALCIUM (test code = 9.4 mg/dL 8.6-10.6 7815191325) T PROTEIN (test code = 6.5 g/dL 6.3-8.2 5441508445) ALBUMIN (test code = 3.4 g/dL 3.5-5 L 3153716989) ALK PHOS (test code = 59 U/L 34-122 5338794349) ALTv (test code = 35 U/L 5-50 1742-6) AST(SGOT) (test code = 42 U/L 13-40 H 1970133995) eGFR Calculation mL/min/1.73m2 (Non-) (test code = 9265588774) eGFR Calculation mL/min/1.73m2 () (test code = 4690254118) EMIR (test code = EMIR) Association of [...] tests). Lab Interpretation Abnormal (test code = 82008-5) [facility] 10:35:00 Test Item Value Reference Range Interpretation Comments MAGNESIUM (test code = 9519994860) 1.4 mg/dL 1.7-2.4 L Lab Interpretation (test code = Abnormal 42592-5) [facility]2020-05-30 21:17:00 Test Item Value Reference Range Interpretation Comments POCT GLU (test code = 4569823238) 105 mg/dL 70-110 Lab Interpretation (test code = Normal 55700-6) [facility] HospitalPNEUMOCOCCAL [id number] 19:20:00 Test Item Value Reference Range Interpretation Comments S. pneumoniae antigen Positive Negative A (test code = 2041073927) EMIR (test code = EMIR) S. pneumoniae vaccine may give false positive results in urine with this assay in the 48 hours following vaccination. Lab Interpretation (test Abnormal code = 11865-0) [facility] HospitalLEGIONELLA URINARY ANTIGEN [id number] 19:20:00 Test Item Value Reference Range Interpretation Comments Legionella Urinary Negative Negative Antigen (test code = 2612360834) EMIR (test code = EMIR) Negative for [...] test. Lab Interpretation (test Normal code = 93180-4) [facility] HospitalCORTISOL [id number] 18:48:00 Test Item Value Reference Range Interpretation Comments SHAYY AM (test code = 23.8 ug/dL 4.5-23 H 9212405166) EMIR (test code = EMIR) Biotin has been reported to cause a positive bias, interpret results relative to patient's use of biotin. Lab Interpretation (test Abnormal code = 80767-7) [facility]2020-05-30 17:17:00 Test Item Value Reference Range Interpretation Comments POCT GLU (test code = 8010802688) 117 mg/dL 70-110 H Lab Interpretation (test code = Abnormal 97477-2) [facility] HospitalTROPONIN [id number] 17:14:00 Test Item Value Reference Range Interpretation Comments TROPONIN I (test 0.222 ng/mL See_Comment H [Automated code = 0504939259) message] The system which generated this result [...] ? Lab Interpretation Abnormal (test code = 51764-4) [facility] HospitalOSMOLALITY [id number] 16:53:00 Test Item Value Reference Range Interpretation Comments OSMO U (test code = See_Comment [Automa moshe message] 8332168280) The system [employer] generated this result transmitted ref erence range: 50-1,100 mOsm/kg. The re ference range was not u sed to interpret this result as normal/abnor mal. Lab Interpretation (test Normal code = 62904-4) [facility] HospitalVITAMIN D, [id number] 16:43:00 Test Item Value Reference Range Interpretation Comments VIT D 25OH (test code = 29 ng/mL 25-80 22613-7) EMIR (test code = EMIR) Deficiency: <20 ng/mLInsufficiency : 20-24 ng/mLOptimal: 25-80 ng/mL Lab Interpretation (test Normal code = 84781-6) [facility] HospitalUREA NITROGEN, URINE [id number] 15:44:00 Test Item Value Reference Range Interpretation Comments UREA N UR (test code = 4939412957) 114 mg/dL [facility] HospitalCT THORAX WO [id number] 15:23:12 1. ?Pulmonary edema with moderate volume [...] sagittal MPR images were generated and reviewed.(Display catzv-wk-rzcd = 35 cm) FINDINGS: Lower neck/thyroid: Unremarkable. [...] sagittal MPR images were generated and reviewed.(Display oorkj-nc-pvaq = 35 cm)FINDINGS:Lower neck/thyroid: Unremarkable.Lungs: Centrilobular septal [...] reviewed this study and agree with theabove report.[facility] 2020-05-30 14:53:00 Test Item Value Reference Range Interpretation Comments POCT GLU (test code = 3217193834) 100 mg/dL 70-110 Lab Interpretation (test code = Normal 10960-3) [facility] HospitalVIT[facility]IN B12, [id number] 13:07:00 Test Item Value Reference Range Interpretation Comments VIT B12 (test code = 412 pg/mL 240-930 4950554878) EMIR (test code = EMIR) Biotin has been reported to cause a positive bias, interpret results relative to patient's use of biotin. Lab Interpretation (test Normal code = 56404-1) [facility]00 Test Item Value Reference Range Interpretation Comments FOLATE SER (test code = 8.4 ng/mL 3-20 Biot in has been [id number]) reported to cau se a positive bias, interpret resul ts relative to patient's use o f biotin. Lab Interpretation (test Normal code = 90945-9) [facility] COVID-19 [id number] 12:49:00 Test Item Value Reference Range Interpretation Comments SARS-CoV-2 PCR (test Not Detected Not Detected code = 74423-1) EMIR (test code = EMIR) Cepheid Xpert ?Xpress SARS-CoV-2 Assay is a rapid, real-time RT-PCR test intended for the qualitative detection of nucleic acid from the SARS-CoV-2 in nasopharyngeal (MAS[facility] LINER) specimens. It is used under Emergency Use [...] indicated. Lab Interpretation Normal (test code = 92210-2) [facility] PANEL BY [id number] 12:44:00 Test Item Value Reference Range Interpretation Comments Adenovirus (test code = Negative Negative 22337-7) Coronavirus HKU1 (test Negative Negative code = 67550-3) Coronavirus NL63 (test Negative Negative code = 26519-6) Coronavirus 229E (test Negative Negative code = 30816-7) Coronavirus OC43 (test Negative Negative code = 39408-8) Human Metapneumovirus Negative Negative (test code = 90234-1) Human Negative Negative Rhinovirus/Enterovirus (test code = 43846-0) Influenza A (test code = Negative Negative 74555-9) Influenza B (test code = Negative Negative 46690-3) Parainfluenza Virus 1 Negative Negative (test code = 46593-9) Parainfluenza Virus 2 Negative Negative (test code = 48835-1) Parainfluenza Virus 3 Negative Negative (test code = 19808-9) Parainfluenza Virus 4 Negative Negative (test code = 38523-9) Respiratory Syncytial Negative Negative Virus (test code = 89490-7) Bordetella parapertussis Negative Negative (test code = 59951-6) Bordetella pertussis Negative Negative (test code = 78480-4) Chlamydia pneumoniae Negative Negative (test code = 60041-7) Mycoplasma pneumoniae Negative Negative (test code = 11076-3) EMIR (test code = EMIR) Negative:A negative result does not rule-out infection. ?This assay does not test for all potential infectious agents. ? Positive:A positive test result does not necessarily indicate the presence of viable organism. ? Lab Interpretation (test Normal code = 18406-5) [facility]PROCALCITONIN2020-09-11 12:14:00 Test Item Value Reference Range Interpretation Comments Procalcitonin (test 0.06 ng/mL <0.07 code = 0324743099) EMIR (test code = EMIR) INTERPRETATION OF [...] lung abscess/empyema. For further information please refer to:[email or web address] Lab Interpretation Normal (test code = 80841-6) [facility] HospitalOSMOLALITY [id number] 11:49:00 Test Item Value Reference Range Interpretation Comments OSMOLALITY (test code = See_Comment [Au tomated message] 8629925800) The system [employer] generated this result transmitted ref erence range: 278 - 30 5 mOsm/kg. The re ference range was not u sed to interpret this result as normal/abnor mal. Lab Interpretation (test Normal code = 07021-1) [facility]N-TERMINAL [id number] 11:19:00 Test Item Value Reference Range Interpretation Comments NT-proBNP (test code 26446 pg/mL See_Comment H [Autom ated = 9805070265) message] The system which generated this result transmitted reference range : <=450. The reference range was not used to interpret this result as normal/abnormal . EMIR (test code = EMIR) Biotin has been reported to cause a negative bias, interpret results relative to patient's use of biotin. Lab Interpretation Abnormal (test code = 41210-4) [facility] HospitalSEDIMENTATION [id number] 11:01:00 Test Item Value Reference Range Interpretation Comments ESR (test code = See_Comment H [Automated message] 5965945309) The system [employer] generated this result transmitted ref erence range: 0 - 10 m m/HR. The reference r martin was not used to interpret this result as normal/abnor mal. Lab Interpretation (test Abnormal code = 08849-6) [facility] HospitalTROPONIN [id number] 10:57:00 Test Item Value Reference Range Interpretation Comments TROPONIN I (test 0.233 ng/mL See_Comment H [Automated code = 3619514657) message] The system which generated this result [...] ? Lab Interpretation Abnormal (test code = 83551-9) [facility] HospitalIRON [id number] 10:53:00 Test Item Value Reference Range Interpretation Comments IRON (test code = 7528224081) 37 ug/dL 50-160 L TIBC (test code = 9155833408) 259 ug/dL 250-410 % FE SAT (test code = 8353952014) 14 % 20-50 L Lab Interpretation (test code = Abnormal 24176-2) [facility] HospitalCOMP. METABOLIC PANEL (13409)2020-05-30 10:44:00 Test Item Value Reference Range Interpretation Comments NA (test code = 135 mmol/L 135-145 2716924413) K (test code = 4.3 mmol/L 3.5-5 9221881389) CL (test code = 98 mmol/L 98-108 4998875129) CO2 TOTAL (test code = 26 mmol/L 23-31 9301072217) AGAP (test code = 2-16 2719529486) BUN (test code = 29 mg/dL 7-23 H 3269949108) GLUCOSE (test code = 127 mg/dL 70-110 H 4170467123) CREATININE (test code = 1.38 mg/dL 0.6-1.25 H 1336673239) TOTAL BILI (test code = 0.9 mg/dL 0.1-1.3 2184109912) CALCIUM (test code = 9.4 mg/dL 8.6-10.6 5316081236) T PROTEIN (test code = 6.6 g/dL 6.3-8.2 3553953479) ALBUMIN (test code = 3.7 g/dL 3.5-5 8467941752) ALK PHOS (test code = 65 U/L 34-122 8947065561) ALTv (test code = 28 U/L 5-50 1742-6) AST(SGOT) (test code = 42 U/L 13-40 H 9403612211) eGFR Calculation mL/min/1.73m2 (Non-) (test code = 9323137887) eGFR Calculation mL/min/1.73m2 () (test code = 9987908770) EMIR (test code = EMIR) Association of [...] tests). Lab Interpretation Abnormal (test code = 91008-4) [facility] HospitalMAGNESIUM2020-09-11 10:44:00 Test Item Value Reference Range Interpretation Comments MAGNESIUM (test code = 8945356229) 1.4 mg/dL 1.7-2.4 L Lab Interpretation (test code = Abnormal 11821-5) [facility] HospitalURIC [id number] 10:44:00 Test Item Value Reference Range Interpretation Comments URIC ACID (test code = 8522890503) 7.8 mg/dL 3.6-8 Lab Interpretation (test code = Normal 10687-2) [facility] HospitalPROTEIN CREAT RATIO URINE [id number] 10:29:00 Test Item Value Reference Range Interpretation Comments T. PROT U (test code = 104 mg/dL 2888-6) CREAT U (test code = 14.4 mg/dL 5101616484) Protein/Creatinine Ratio 0.0-2.0 H Urine (test code = 1138989521) EMIR (test code = EMIR) Random Urine Total Protein Reference Ranges Random Specimen: ? Less than 10 mg/dLFirst Morning Specimen: ? ?Less than 20 mg/dL ? Lab Interpretation (test Abnormal code = 41411-0) [facility] HospitalCBC WITH [id number] 10:28:00 Test Item Value Reference Range Interpretation Comments WBC (test code = See_Comment [Automated 9576-2) message] The sy stem which generated this result transmitted reference range : 4.20 - 10.70 10*3/?L. The reference range was not used to interpret this result as normal/abnormal . RBC (test code = See_Comment L [Automated 632-8) message] The sy stem which generated this [...] RDW-SD (test code = 47.6 fL 38.5-51.6 66361-3) RDW-CV (test code = 14.2 % 12.1-15.4 788-0) PLT (test code = See_Comment L [Automated 777-3) message] The sy stem which generated this result transmitted reference range : 150 - 328 10*3/ ?L. The reference r martin was not used to interpret this result as normal/abnormal . MPV (test code = 10.5 fL 9.8-13 56884-6) NRBC/100 WBC (test See_Comment [Automat ed code = 9938658778) message] The system which generated this result transmitted reference range : 0.0 - 10.0 /100 WBCs. The refer ence range was not u sed to interpret th is result as normal/abnormal . NRBC x10^3 (test code <0.01 See_Comment [Auto mated = 8464765867) message] The s ystem which generated this result transmitted reference range : 10*3/?L. The reference range was not used to interpret this result as normal/abnormal . GRAN MAT (NEUT) % 83.1 % (test code = 770-8) IMM GRAN % (test code 0.40 % = 2208826379) LYMPH % (test code = 3.7 % 736-9) MONO % (test code = 11.8 % 5905-5) EOS % (test code = 0.4 % 713-8) BASO % (test code = 0.6 % 706-2) GRAN MAT x10^3(ANC) 4.52 10*3/uL 1.99-6.95 (test code = 3152465409) IMM GRAN x10^3 (test <0.03 0-0.06 code = 4867559934) LYMPH x10^3 (test code 0.20 10*3/uL 1.09-3.23 L = 731-0) MONO x10^3 (test code 0.64 10*3/uL 0.36-1.02 = 742-7) EOS x10^3 (test code = <0.03 0.06-0.53 L 711-2) BASO x10^3 (test code 0.03 10*3/uL 0.01-0.09 = 704-7) Lab Interpretation Abnormal (test code = 74816-9) [facility] HospitalSODIUM, URINE [id number] 10:25:00 Test Item Value Reference Range Interpretation Comments NA URINE (test code = 9717464794) 123 mmol/L [facility] HospitalPROTHROMBIN TIME / [id number] 08:09:00 Test Item Value Reference Range Interpretation Comments PROTIME PATIENT (test See_Comment [Auto mated message] code = 5964-2) The system [employer] generated this result transmitted ref erence range: 12.0 - 1 4.7 Seconds. The re ference range was not u sed to interpret this result as normal/abnor mal. INR (test code = 6301-6) Nor mal INR <1.1; Warfarin Therap eutic range 2.0 to 3. 0 or 2.5 to 3.5, dep ending upon the indica tions. Lab Interpretation (test Normal code = 42887-9) [facility] HospitalGLYCOSYLATED HEMOGLOBIN (A1C)2020-05-30 07:33:00 Test Item Value Reference Range Interpretation Comments HGB A1C (test code = 5.4 % 4-6 4548-4) EMIR (test code = EMIR) %A1C (NGSP) Interpretation (ADA)4.8-5.6 ? ? Normal or (Non-Diabetic Range)5.7-6.4 ? ? Increased Risk (Pre-Diabetic)>6.5 ?Diabetes Indicated Lab Interpretation Normal (test code = 60761-9) [facility] HospitalLIPID PANEL (10063)(TOTAL CHOLESTEROL, TRIGLYCERIDES, HDL)2020-05-30 07:20:00 Test Item Value Reference Range Interpretation Comments CHOL (test code = 174 mg/dL 120-200 2412861970) HDL (test code = 37 mg/dL >40 L 5568488647) HDLC RATIO (test code = See_Comment [Au tomated message] 1297989947) The system [employer] generated this result transmit moshe reference range : <=5.0. The refe rence range was not u sed to interpret th is result as normal/abnormal . TRIG (test code = 85 mg/dL 30-170 6483761408) LDL CHOL (test code = 120 mg/dL See_Comment [Auto mated message] 76719-3) The system [employer] generated this result transmit moshe reference range : <=160. The refe rence range was not u sed to interpret th is result as normal/abnormal . VLDL (test code = 17 mg/dL 5-60 1897884813) Lab Interpretation (test Abnormal code = 95433-6) [facility] HospitalCREATINE [id number] 07:19:00 Test Item Value Reference Range Interpretation Comments CK (test code = 3085449759) 88 U/L 33-194 Lab Interpretation (test code = Normal 85703-9) [facility] HospitalURIC [id number] 07:19:00 Test Item Value Reference Range Interpretation Comments URIC ACID (test code = 9510617605) 7.9 mg/dL 3.6-8 Lab Interpretation (test code = Normal 73157-5) [facility] HospitalFERRITIN [id number] 06:48:00 Test Item Value Reference Range Interpretation Comments FERRITIN (test code = 73.2 ng/mL 18-464 2615834612) EMIR (test code = EMIR) Biotin has been reported to cause a negative bias, interpret results relative to patient's use of biotin. Lab Interpretation (test Normal code = 76364-4) [facility] HospitalTHYROID STIMULATING [id number] 06:46:00 Test Item Value Reference Range Interpretation Comments TSH (test code = See_Comment [Automated message] 8015532286) The system [employer] generated this result transmitted ref erence range: 0.45 - 4 .70 mIU/L. The refe rence range was not u sed to interpret this result as normal/abnor mal. Lab Interpretation (test Normal code = 26410-6) [facility]MAGNESIUM2020-09-11 06:19:00 Test Item Value Reference Range Interpretation Comments MAGNESIUM (test code = 7880266186) 1.6 mg/dL 1.7-2.4 L Lab Interpretation (test code = Abnormal 41797-8) [facility] HospitalPHOSPHORUS2020-09-11 06:19:00 Test Item Value Reference Range Interpretation Comments PHOSPHORUS (test code = 9798573423) 2.9 mg/dL 2.5-5 Lab Interpretation (test code = Normal 60588-7) [facility] HospitalURINALYSIS2020-09-11 04:26:00 Test Item Value Reference Range Interpretation Comments APPEARANCE (test code = Clear Clear 2942716301) COLOR (test code = Yellow Yellow 1264333830) PH (test code = 4.8-8.0 5155360854) SP GRAVITY (test code = 1.003-1.030 9200528525) GLU U QUAL (test code = Normal Normal 8182371990) BLOOD (test code = 1+ Negative A 5986941614) KETONES (test code = Negative Negative 0745953386) PROTEIN (test code = 500 mg/dL Negative A 2887-8) UROBILIN (test code = Normal Normal 5450678659) BILIRUBIN (test code = Negative Negative 4240866965) NITRITE (test code = Negative Negative 6723759084) LEUK MARLENA (test code = Negative Negative 9940303743) RBC/HPF (test code = See_Comment H [Autom ated message] 1266745153) The system [employer] generated this result transmit moshe reference range : 0 - 3 HPF. The refe rence range was not u sed to interpret th is result as normal/abnormal . WBC/HPF (test code = See_Comment [Autom ated message] 4998918156) The system [employer] generated this result transmit moshe reference range : 0 - 5 HPF. The refe rence range was not u sed to interpret th is result as normal/abnormal . BACTERIA (test code = Few Negative A 2778804001) MUCOUS (test code = Slight Negative LPF A 3201851289) HYAL CAST (test code = See_Comment H [Aut omated message] 4248704470) The system [employer] generated this result transmit omshe reference range : <=2 LPF. The refere nce range was not u sed to interpret th is result as normal/abnormal . GRAN CASTS (test code = See_Comment H [Au tomated message] 0692192108) The system [employer] generated this result transmit moshe reference range : <=1 LPF. The refere nce range was not u sed to interpret th is result as normal/abnormal . Lab Interpretation (test Abnormal code = 11630-8) [facility] HospitalXR CHEST 1 [id number] 03:33:16 Multifocal interstitial and airspace opacities are concerning forbronchopneumonia. These findings can also be seen with atypical infectiousprocess, including COVID-19 pneumonia. Disclaimer: Generally,the findings on chest imaging in COVID-19 are notspecific, and overlap with other infections, including influenza, H1N1,SARS and MERS.According to the Centers for Disease Control (CDC) and recent statement ofthe [employer], viral testing remains the [...] Disease Control (CDC) and recent statement ofthe [employer], viral testing remains the only specificmethod of diagnosis. Confirmation with the viral test is required, even ifradiologic findings are suggestive of COVID-[address]Preliminary Report Dictated by Resident: Ming Ivan MD., have reviewed this study and agree with the abovereport.[facility] HospitalCOVID-19 (ID NOW RAPID TESTING)2020-05-30 01:54:00 Test Item Value Reference Range Interpretation Comments SARS-CoV-2 Rapid ID NOW Not Detected Not Detected (test code = 01682-8) EMIR (test code = EMIR) ID NOW COVID-19 Assay is an isothermal nucleic acid amplification test intended for the qualitative detection of nucleic acid from SARS-CoV-2 viral RNA in nasopharyngeal (MAS[facility] LIN[facility]) specimens. It is used under Emergency Use [...] indicated. Lab Interpretation Normal (test code = 55376-3) [facility] HospitalTROPONIN [id number] 01:52:00 Test Item Value Reference Range Interpretation Comments TROPONIN I (test 0.148 ng/mL See_Comment H [Automated code = 2341240473) message] The system which generated this result [...] ? Lab Interpretation Abnormal (test code = 51834-0) [facility]N-TERMINAL [id number] 01:49:00 Test Item Value Reference Range Interpretation Comments NT-proBNP (test code 88275 pg/mL See_Comment H [Autom ated = 6543222496) message] The system which generated this result transmitted reference range : <=450. The reference range was not used to interpret this result as normal/abnormal . EMIR (test code = EMIR) Biotin has been reported to cause a negative bias, interpret results relative to patient's use of biotin. Lab Interpretation Abnormal (test code = 44419-5) [facility] HospitalCOMP. METABOLIC PANEL (26344)2020-05-30 01:41:00 Test Item Value Reference Range Interpretation Comments NA (test code = 135 mmol/L 135-145 0905270427) K (test code = 4.0 mmol/L 3.5-5 7653388803) CL (test code = 98 mmol/L 98-108 8644067786) CO2 TOTAL (test code = 27 mmol/L 23-31 7015307500) AGAP (test code = 2-16 0071272796) BUN (test code = 27 mg/dL 7-23 H 3524436406) GLUCOSE (test code = 143 mg/dL 70-110 H 7662377785) CREATININE (test code = 1.51 mg/dL 0.6-1.25 H 6694891484) TOTAL BILI (test code = 0.6 mg/dL 0.1-1.2 8104823876) CALCIUM (test code = 9.5 mg/dL 8.6-10.6 8218681251) T PROTEIN (test code = 6.9 g/dL 6.3-8.2 4675626210) ALBUMIN (test code = 3.9 g/dL 3.5-5 4446897367) ALK PHOS (test code = 78 U/L 34-122 1976071840) ALTv (test code = 29 U/L 5-50 1742-6) AST(SGOT) (test code = 37 U/L 13-40 0406786591) eGFR Calculation mL/min/1.73m2 (Non-) (test code = 5482597889) eGFR Calculation mL/min/1.73m2 () (test code = 5202452672) EMIR (test code = EMIR) Association of [...] tests). Lab Interpretation Abnormal (test code = 46915-0) [facility] HEAD WO [id number] 01:40:13 No acute intracranial hemorrhage or mass [...] ethmoid aircell.IMPRESSIONNo acute intracranial hemorrhage or mass effect.[facility] GLUCOSE (AUTOMATED)2020-05-30 01:23:00 Test Item Value Reference Range Interpretation Comments POCT GLU (test code = 3008125856) 130 mg/dL 70-110 H Lab Interpretation (test code = Abnormal 34038-0) [facility] WITH [id number] 01:22:00 Test Item Value Reference Range Interpretation Comments WBC (test code = See_Comment [Automated 4690-2) message] The sy stem which generated this result transmitted reference range : 4.20 - 10.70 10*3/?L. The reference range was not used to interpret this result as normal/abnormal . RBC (test code = See_Comment L [Automated 379-8) message] The sy stem which generated this [...] RDW-SD (test code = 46.8 fL 38.5-51.6 63392-1) RDW-CV (test code = 13.9 % 12.1-15.4 788-0) PLT (test code = See_Comment [Automated 777-3) message] The sy stem which generated this result transmitted reference range : 150 - 328 10*3/ ?L. The reference r martin was not used to interpret this result as normal/abnormal . MPV (test code = 9.9 fL 9.8-13 64824-5) NRBC/100 WBC (test See_Comment [Automat ed code = 6922078444) message] The system which generated this result transmitted reference range : 0.0 - 10.0 /100 WBCs. The refer ence range was not u sed to interpret th is result as normal/abnormal . NRBC x10^3 (test code <0.01 See_Comment [Auto mated = 6341608638) message] The s ystem which generated this result transmitted reference range : 10*3/?L. The reference range was not used to interpret this result as normal/abnormal . GRAN MAT (NEUT) % 82.3 % (test code = 770-8) IMM GRAN % (test code 0.50 % = 8750567592) LYMPH % (test code = 5.5 % 736-9) MONO % (test code = 10.6 % 5905-5) EOS % (test code = 0.6 % 713-8) BASO % (test code = 0.5 % 706-2) GRAN MAT x10^3(ANC) 5.23 10*3/uL 1.99-6.95 (test code = 7506102686) IMM GRAN x10^3 (test 0.03 10*3/uL 0-0.06 code = 1455960014) LYMPH x10^3 (test code 0.35 10*3/uL 1.09-3.23 L = 731-0) MONO x10^3 (test code 0.67 10*3/uL 0.36-1.02 = 742-7) EOS x10^3 (test code = 0.04 10*3/uL 0.06-0.53 L 711-2) BASO x10^3 (test code 0.03 10*3/uL 0.01-0.09 = 704-7) Lab Interpretation Abnormal (test code = 47017-7) [facility]AC ABG + LACTIC [id number] 01:14:00 Test Item Value Reference Range Interpretation Comments PH (test code = 2) 7.35-7.45 PCO2 (test code = See_Comment [Automat ed 9598177170) message] The sy stem which generated this result transmitted reference range : 35 - 45 mmHg. The reference range was not used to interpret this result as normal/abnormal . PO2 (test code = See_Comment H [Automated 7344379373) message] The sy stem which generated this result transmitted reference range : 80 - 100 mmHg. The reference range was not used to interpret this result as normal/abnormal . HCO3 (test code = See_Comment [Automate d 3377321941) message] The sy stem which generated this result transmitted reference range : 22 - 26 mEq/L. The reference range was not used to interpret this result as normal/abnormal . BE (test code = See_Comment [Automated 3424359810) message] The sy stem which generated this result transmitted reference range : -3.0 - 3.0 mEq/ L. The reference r martin was not used to interpret this result as normal/abnormal . LACTIC ACID (test code 1.10 mmol/L = 9644247524) Lab Interpretation Abnormal (test code = 03912-6) [facility]PO[facility] GLU[facility]SE(AGE >30DAYS)2020-05-30 01:04:00 Test Item Value Reference Range Interpretation Comments POCT Glu (age>30days) (test code = 130 mg/dL 70-110 A 3342) Lab Interpretation (test code = Abnormal 09330-9) [facility]"
--- NOTE | 2021-12-27 03:32 | P.HP ---
Certification for Inpatient Patient admitted to: Inpatient With expected LOS: <2 Midnights Patient will require the following post-hospital care: None Practitioner: I am a practitioner with admitting privileges, knowledge of patient current condition, hospital course, and medical plan of care. Services: Services provided to patient in accordance with Admission requirements found in Title 42 Section 412.3 of the Code of Federal Regulations <Johanna Villalobos - Last Filed: 12/27/21 03:38> Patient History Date of Service: 12/27/21 Primary Care Provider: Dr. Hernandez Reason for admission: CHF, Elevated Trop History of Present Illness: Patient is a 81-year-old male with diastolic CHF, hypertension, COPD, CAD, pacemaker and defibrillator who presented to the ED with sensation of food stuck in his throat and shortness of breath. His labs ended up showing an elevated troponin high-sensitivity at 83. BNP elevated 6522. EKG negative. He was given 40 of Lasix IV. Patient was admitted about 1 month ago for very similar story. He was instructed to follow-up with a cardiac catheterization. Patient states he has not had that done. Will admit patient for further evaluation and treatment. 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 - Family History Father -: Heart disease Mother -: Heart disease, Hypertension, Diabetes, Cancer - Social History Smoking Status: Former smoker Alcohol use: Yes CD- Drugs: No Caffeine use: Yes Place of Residence: Home <WilfredoJohanna - Last Filed: 12/27/21 03:38> Date of Service: 12/27/21 <Parveen Crabtree - Last Filed: 12/28/21 03:58> Allergies No Known Allergies Allergy (Verified 03/23/21 04:35) Home Medications: Sacubitril/Valsartan [Entresto 49 mg-51 mg Tablet] 1 tab PO BID #60 tab 03/23/21 Albuterol Neb [Proventil 0.083% Neb Soln] 2.5 mg NEB Q6HP PRN #60 amp 07/09/21 Atorvastatin Calcium [Lipitor] 40 mg PO BEDTIME #30 tab 07/09/21 Furosemide [Lasix] 20 mg PO DAILY 11/20/21 Amiodarone HCl [Pacerone] 200 mg PO DAILY #30 tablet 11/30/21 Clopidogrel Bisulfate [Plavix*] 75 mg PO DAILY #30 tablet 11/30/21 Metoprolol Tartrate [Lopressor*] 50 mg PO BID #60 tab 11/30/21 Review of Systems 10-point ROS is otherwise unremarkable Respiratory: Shortness of Breath <Johanna Villalobos - Last Filed: 12/27/21 03:38> Physical Examination - Physical Exam General: Alert, In no apparent distress, Oriented x3 HEENT: Atraumatic, PERRLA, Mucous membr. moist/pink, EOMI, Sclerae nonicteric Neck: Supple, 2+ carotid pulse no bruit, No LAD, Without JVD or thyroid abnormality Respiratory: Clear to auscultation bilaterally, Normal air movement Cardiovascular: No edema, Regular rate/rhythm, Normal S1 S2 Gastrointestinal: Normal bowel sounds, No tenderness Musculoskeletal: No tenderness Integumentary: No rashes Neurological: Normal speech, Normal strength at 5/5 x4 extr, Normal tone, Normal affect - Studies Laboratory Data (last 24 hrs) 12/27/21 01:30: WBC 5.3, Hgb 10.9 L, Hct 31.5 L, Plt Count 155 12/27/21 01:30: Sodium 129 L, Potassium 3.4 L, BUN 23 H, Creatinine 2.06 H, Glucose 182 H <Johanna Villalobos - Last Filed: 12/27/21 03:38> Assessment and Plan - Problems (Diagnosis) (1) Dyspnea Current Visit: Yes Status: Acute Qualifiers: Dyspnea type: shortness of breath Qualified Code(s): R06.02 - Shortness of breath; R06.00 - Dyspnea, unspecified; R06.01 - Orthopnea (2) Acute on chronic systolic CHF (congestive heart failure) Onset Date: 11/08/17 Current Visit: Yes Status: Acute (3) CAD (coronary artery disease) Current Visit: Yes Status: Chronic Qualifiers: Coronary Disease-Associated Artery/Lesion type: unspecified vessel or lesion type [place] vs. transplanted heart: [place] heart Associated angina: with other forms of angina Qualified Code(s): I25.118 - Atherosclerotic heart disease of [place] coronary artery with other forms of angina pectoris (4) CKD (chronic kidney disease) Current Visit: Yes Status: Chronic Qualifiers: Chronic kidney disease stage: stage 3 (moderate) Chronic kidney disease stage 3 subtype: stage 3b (GFR 30-44) Qualified Code(s): N18.32 - Chronic kidney disease, stage 3b (5) HTN (hypertension) Current Visit: Yes Status: Chronic Qualifiers: Hypertension type: primary hypertension Qualified Code(s): I10 - Essential (primary) hypertension (6) History of CVA (cerebrovascular accident) Onset Date: 11/24/17 Current Visit: No Status: Chronic (7) Hyperlipidemia Current Visit: Yes Status: Chronic Qualifiers: Hyperlipidemia type: mixed hyperlipidemia Qualified Code(s): E78.2 - Mixed hyperlipidemia (8) Hyponatremia Current Visit: Yes Status: Chronic (9) Presence of combination internal cardiac defibrillator (ICD) and pacemaker Current Visit: Yes Status: Chronic - Plan -Patient complaining of SHOB with elevated BNP and trop. Will continue lasix and monitor inputs and outputs. 1200cc fluid restriction. -HS trop slightly elevated. This occured during patients last admission for CHF. Will trend q6x2 and check CPK and CKMB. EKG negative. 324 aspirin ordered. Patient takes atorvastatin daily. -Patient has a history of noncompliance but states that he does take his medications regularly. he was instructed to get a cardiac catheterization upon last discharge 1 month ago but states he did not. -Sodium 129. patient has history of chronic hyponatremia. Does not appear symptomatic. -CKD appears stable at this time -obtain and continue home medications -Heparin for DVT prophylaxis Discharge Plan: Home Plan to discharge in: 48 Hours - Advance Directives Does patient have a Living Will: No Does patient have a Durable POA for Healthcare: Yes - Code Status/Comfort Care Code Status Assessed: Yes (Full) Critical Care: No Time Spent Managing Pts Care (In Minutes): 70 <Johanna Villalobos - Last Filed: 12/27/21 03:38> Date of Service: 12/27/21 Subjective: HPI as mentioned above Physical Examination: Vitals: Afebrile vital signs are stable Physical exam: Cardiovascular: Within normal limits. Lungs: Within normal limits Abdomen: Within normal limits Neuro: Awake, alert, oriented to person place and time Assessment: 1. CHF 2. Elevated troponin Plan: 1. Continue with current plan of care as mentioned above <Parveen Crabtree - Last Filed: 12/28/21 03:58>
[2021-12-27] MEDS ORDERED: ZOLPIDEM TARTRATE 5 MG TABLET PO PRN (03:37)
[2021-12-27] MEDS ORDERED: ASPIRIN 81 MG CHEWABLE TABLET PO ONE (03:37)
[2021-12-27] MEDS ORDERED: ONDANSETRON 4 MG/2 ML VIAL IV PRN (03:37)
[2021-12-27] MEDS ORDERED: ACETAMINOPHEN 500 MG TAB PO PRN (03:37)
[2021-12-27] MEDS ORDERED: ALBUTEROL 2.5 MG/3 ML NEB SOL NEB PRN ×2 (03:42→18:26)
[2021-12-27 03:47] LABS: SARS-COV-2 RT PCR NEGATIVE (NEGATIVE)
[2021-12-27 04:32] LABS: Urine Blood 1+ (Negative); Urine Glucose Negative (Negative); Urine Protein 2+ (Negative)
[2021-12-27 04:45] LABS: CKMB Creatine Kinase MB 3.4 ng/mL (1.0-3.6)
[2021-12-27 05:17] VITALS: BMI 26.4
[2021-12-27 05:26] LABS: Urine Bacteria <20 /HPF (NONE SEEN)
[2021-12-27] MEDS ORDERED: HEPARIN 5000 UNIT/ML 1 ML VIAL ONE (08:16)
[2021-12-27] MEDS ORDERED: FUROSEMIDE 20 MG/ 2ML VIAL ONE (08:16)
[2021-12-27] MEDS ORDERED: ASPIRIN 325 MG TAB ONE (08:17)
[2021-12-27] MEDS: FUROSEMIDE 20 MG/ 2ML VIAL IV SCH ×2 (08:25→16:48)
[2021-12-27] MEDS: HEPARIN 5000 UNIT/ML 1 ML VIAL SQ SCH ×2 (08:25→16:49)
--- NOTE | 2021-12-27 09:11 | CON ---
Date of Consultation: 12/27/[address] Crabtree on 12/27/2021. I saw him on 12/27/2021. Reason For Consultation: Congestive heart failure and elevated troponin. History Of Present Illness: Mr. Cat is 81. He is known to have a chronic diastolic congestive hea rt failure. In November of 2021, ejection fraction was 55% with moderate mitral regurgitation. He also has a history of pacemaker and defibrillator, hypertension, parkinsonism, diabetes, coronary artery disease, and history of CVA. He comes into the hospital, feeling like something was stuck in his thr oat. He was found to have an elevated troponin and CHF with a BNP of 6522. Denied any chest pain, n ausea, vomiting, diaphoresis, PND, orthopnea, pedal edema, palpitation, syncope, fever, or chills. Allergies: NONE. Review of Systems: Negative. Social History: Negative. Family History: Noncontributory. Medications: At home include Lasix, metoprolol, Entresto, inhalers, amiodarone, aspirin, Plavix, and Lipitor. Physical Examination: Vital Signs: Blood pressure is 175/92. He was in a paced rhythm. HEENT: Exam was negative. Neck: Supple with no bruit. Chest: Reveals some rales in both bases. Cardiac: Exam revealed a paced rhythm. No murmurs, gallops, or rubs. Abdomen: Benign. Extremities: Revealed 1+ edema. Neurologic: He was nonfocal. Skin: Dry and intact. Pulses were present distally bilaterally. Diagnostic Data: EKG showed a paced rhythm. Creatinine is 2.06. Sodium was 129, potassium is 3.4. Troponin was 83. BNP was 6522. Echocardiogram in November of 2021 showed an ejection fraction of 55%, diastolic dysfunction, and moderate mitral regurgitation. Impression And Plan: 1.Acute on chronic diastolic congestive heart failure. I would increase his Lasix dose, resume the rest of the medications. No need for any further cardiac workup at this point. His elevated troponi n and BNP are secondary to chronic coronary artery disease and congestive heart failure. 2.Hypertension, poorly controlled. We may have to go up on the dose of the metoprolol. 3.He is status post pacemaker and defibrillator that appear to be functioning appropriately. 4.Parkinsonism. 5.Diabetes. 6.Coronary artery disease that is stable. 7.History of cerebrovascular accident. 8.Renal insufficiency stage IV. We will need to be careful with his creatinine considering he is ta sri Entresto and Lasix. We will watch his I's and O's and daily weight. Again, his mainstay of the rapy right now is home medication plus IV Lasix. No further cardiac workup. We will continue to fol low. CHIVO/FAITH Voice ID: [id number] Report ID: [id number]
[2021-12-27 12:35] LABS: CKMB Creatine Kinase MB 3.2 ng/mL (1.0-3.6)
[2021-12-27] MEDS ORDERED: HYDRALAZINE HCL 20 MG/ML VIAL IV ONE (18:26)
[2021-12-27] MEDS ORDERED: METOPROLOL TAR 50 MG TAB PO ONE (18:28)
[2021-12-27] MEDS: SACUBITRIL/VALSARTAN 49/51 MG TAB PO SCH (20:57)
[2021-12-27] MEDS ORDERED: ATORVASTATIN 40 MG TAB PO SCH (21:00)
[2021-12-27] MEDS ORDERED: METOPROLOL TAR 50 MG TAB PO SCH (21:00)
[2021-12-27] MEDS ORDERED: HYDRALAZINE HCL 20 MG/ML VIAL IV PRN (22:00)
[2021-12-27] MEDS ORDERED: TRAMADOL HCL 50 MG TAB PO PRN (22:58)
[2021-12-28] MEDS: HEPARIN 5000 UNIT/ML 1 ML VIAL SQ SCH ×2 (00:35→09:34)
[2021-12-28 05:52] LABS: Absolute Lymphocytes (CBC) 0.4 K/uL (0.7-4.9); Hematocrit 32.9 % (39.6-49.0); Lymphocytes % 9.1 % (15.3-44.8); MPV 7.6 fL (7.6-11.3); RBC Red Blood Cell Count 3.75 M/uL (4.33-5.43)
[2021-12-28] MEDS ORDERED: METOPROLOL TAR 50 MG TAB PO SCH (06:00)
[2021-12-28 06:17] LABS: Albumin 2.7 g/dL (3.4-5.0); Bilirubin Total 0.6 mg/dL (0.2-1.0); Magnesium 1.5 mg/dL (1.8-2.4); Phosphorus 2.5 mg/dL (2.5-4.9); Potassium 4.1 mmol/L (3.5-5.1)
--- NOTE | 2021-12-28 07:29 | RAD REPORT ---
EXAM DESCRIPTION: RAD - Chest Single View - 12/28/2021 5:17 am CLINICAL HISTORY: pneumonia COMPARISON: Portable 12/27/2021 TECHNIQUE: AP portable chest image was obtained 12/28/2021 5:17 am . FINDINGS: Lung volumes are low, further reduced compared to December 27 imaging. Interstitial pattern i n the right lung field is similar or slightly less pronounced. There does appear to be greater airspa ce opacification in the lower left lung field. This asymmetry is concerning for a left lung base pneu monia and needs correlation with clinical findings and laboratory findings. Upper left lung field is clear of any dense consolidation or significant edema. Defibrillator remains in place. Trachea is midline. Cardiomegaly is present with vascular engorgement . No pneumothorax or enlarging pleural effusion. No acute bony abnormality seen. No acute aortic find ings suspected. IMPRESSION: Asymmetric left base airspace opacification without dense consolidation is concerning fo r a left lung base pneumonia. This needs correlation with exam findings and laboratory findings. Concurrent mild CHF/volume overload findings are stable to slightly improved.
[2021-12-28 08:57] VITALS: O2SAT 97
[2021-12-28] MEDS ORDERED: CLOPIDOGREL 75 MG TABLET PO SCH (09:00)
[2021-12-28] MEDS: SACUBITRIL/VALSARTAN 49/51 MG TAB PO SCH (09:00)
[2021-12-28] MEDS ORDERED: AMIODARONE HCL 200 MG TAB PO SCH (09:00)
--- NOTE | 2021-12-28 09:09 | P.DS ---
Admission Date: 12/27/21 Discharge Date: 12/28/21 Primary Care Provider: Dr. Hernandez Disposition: ROUTINE DISCHARGE Discharge Condition: GOOD Reason for Admission: CHF, Elevated Trop Brief History of Present Illness: Patient is a 81-year-old male with diastolic CHF, hypertension, COPD, CAD, pacemaker and defibrillator who presented to the ED with sensation of food stuck in his throat and shortness of breath. His labs ended up showing an elevated troponin high-sensitivity at 83. BNP elevated 6522. EKG negative. He was given 40 of Lasix IV. Patient was admitted about 1 month ago for very similar story. He was instructed to follow-up with a cardiac catheterization. Patient states he has not had that done. Will admit patient for further evaluation and treatment. Hospital Course: Started on IV diuresis on admission and is improved clinically. His sensation of shortness of breath is improved. he is deemed clinically stable for discharge today to continue with oral Lasix at 20 mg p.o. twice daily. He will follow-up with his outpatient linen room worker for left heart catheter as scheduled. Vital Signs/Physical Exam: Temp Pulse Resp BP Pulse Ox 97.3 F 63 16 151/84 H 97 12/28/21 08:00 12/28/21 08:00 12/28/21 08:00 12/28/21 08:00 12/28/21 08:00 General: Alert, In no apparent distress HEENT: Atraumatic, Normocephalic Neck: Supple Respiratory: Clear to auscultation bilaterally, Normal air movement Cardiovascular: Regular rate/rhythm, Normal S1 S2 Gastrointestinal: Soft and benign Neurological: Normal speech Laboratory Data at Discharge: WBC 4.3 K/uL (4.3-10.9) D 12/28/21 05:25 Hgb 11.6 g/dL (13.6-17.9) L 12/28/21 05:25 Hct 32.9 % (39.6-49.0) L 12/28/21 05:25 Plt Count 164 K/uL (152-406) 12/28/21 05:25 Sodium 131 mmol/L (136-145) L 12/28/21 05:25 Potassium 4.1 mmol/L (3.5-5.1) 12/28/21 05:25 BUN 27 mg/dL (7-18) H 12/28/21 05:25 Creatinine 2.17 mg/dL (0.55-1.3) H 12/28/21 05:25 Glucose 165 mg/dL (74-106) H 12/28/21 05:25 Phosphorus 2.5 mg/dL (2.5-4.9) 12/28/21 05:25 Magnesium 1.5 mg/dL (1.8-2.4) L D 12/28/21 05:25 Magnesium Cancelled 12/28/21 05:25 Total Bilirubin 0.6 mg/dL (0.2-1.0) 12/28/21 05:25 AST 91 U/L (15-37) H 12/28/21 05:25 ALT 141 U/L (12-78) H 12/28/21 05:25 Alkaline Phosphatase 72 U/L (45-117) 12/28/21 05:25 Triglycerides 65 mg/dL (<150) 12/27/21 04:17 Cholesterol 170 mg/dL (<200) 12/27/21 04:17 HDL Cholesterol 47 mg/dL (40-60) 12/27/21 04:17 Cholesterol/HDL Ratio 3.62 12/27/21 04:17 Home Medications: RX: Sacubitril/Valsartan [Entresto 49 mg-51 mg Tablet] 1 tab PO BID #60 tab 03/23/21 RX: Albuterol Neb [Proventil 0.083% Neb Soln] 2.5 mg NEB Q6HP PRN #60 amp 07/09/21 RX: Atorvastatin Calcium [Lipitor] 40 mg PO BEDTIME #30 tab 07/09/21 RX: Amiodarone HCl [Pacerone] 200 mg PO DAILY #30 tablet 11/30/21 RX: Clopidogrel Bisulfate [Plavix*] 75 mg PO DAILY #30 tablet 11/30/21 RX: Metoprolol Tartrate [Lopressor*] 50 mg PO BID #60 tab 11/30/21 RX: Furosemide [Lasix] 20 mg PO BID #60 12/28/21 New Medications: RX: Furosemide [Lasix] 20 mg PO BID #60 Diet: AHA Activity: Ad brianna Followup: Unknown,U [Primary Care Provider] -
--- NOTE | 2021-12-28 09:40 | EKG ---
Test Date: 2021-12-27 Test Time: 01:26:33 Adjunct Professor: KILLIAN MEASUREMENT RESULTS: Intervals: Rate: 60 ND: 124 QRSD: 176 QT: 546 QTc: 546 [place]: P: ND: 124 QRS: -78 T: 82 INTERPRETIVE STATEMENTS: AV sequential or dual chamber electronic pacemaker Compared to ECG 11/27/2021 13:32:14 Ventricular-paced complex(es) or rhythm no longer present Electronically Signed On 12-28-21 09:35:50 CDT by Max Pro
[2021-12-28 13:41] VITALS: BP 161/95; TEMP 97
--- NOTE | 2021-12-28 13:44 | RAD REPORT ---
EXAM DESCRIPTION: RAD - Chest Single View - 12/27/2021 1:34 am CLINICAL HISTORY: 81 years Male, SOB COMPARISON: Chest x-ray August 16, 2020 FINDINGS: Cardiac pacer noted. Mild interstitial thickening is demonstrated. No consolidation. No pneumothorax. No significant pleur al effusion. Cardiac silhouette appears enlarged but unchanged. Several small calcified mediastinal/hilar nodes ar e again noted. Osseous structures are unremarkable. IMPRESSION: Mild pulmonary interstitial thickening suggestive of mild pulmonary edema. Electronically signed by: Tobi Landry MD 12/27/2021 1:54 AM CDT Due to temporary technical issues with the PACS/Fluency reporting system, reports are being signed by the in house radiologist without review as a courtesy to ensure prompt reporting. The interpreting r adiologist is fully responsible for the content of the report.
--- NOTE | 2021-12-28 15:03 | PN ---
Date of Progress Note: 12/28/2021 Mr. Cat was admitted with acute on chronic diastolic congestive heart failure, has an AICD and a pa cemaker, parkinsonism, hypertension, diabetes, and chronic renal disease, CAD. His troponin had decr eased from 83-66. His laboratory evaluation was otherwise negative. He is feeling better from a CHF standpoint. He is on aspirin, Lipitor, Lasix, hydralazine, metoprolol, heparin, Entresto and potass ium. We will continue present regimen. He can go home whenever it is okay with admitting physician. He needs to have a followup with his doctor in [place] in the near future. CHIVO/FAITH Voice ID: [id number] Report ID: [id number]
[2021-12-28] MEDS ORDERED: FUROSEMIDE 20 MG/ 2ML VIAL IV SCH (20:00)
--- NOTE | 2021-12-28 20:59 | P.CNS ---
Date of Consult: 12/28/21 Reason for Consult: CKD III Requesting Physician: Rell Lee Primary Care Provider: Dr. Hernandez Chief Complaint: CHF, Elevated Trop History of Present Illness: Patient is a 81-year-old male with diastolic CHF, hypertension, COPD, CAD, pacemaker and defibrillator who presented to the ED with sensation of food stuck in his throat and shortness of breath. His labs ended up showing an elevated troponin high-sensitivity at 83. BNP elevated 6522. EKG negative. He was given 40 of Lasix IV. Patient was admitted about 1 month ago for very similar story. He was instructed to follow-up with a cardiac catheterization. Patient states he has not had that done. Will admit patient for further evaluation and treatment. 00:06 This 81 yrs old Male presents to ER via Un[facility] with complaints of FB in throat ms3 sensation. 00:06 The patient presents with a foreign body sensation in the throat. The patient describes ms3 throat pain as scratchy. Onset: The symptoms/episode began/occurred 4 hour(s) ago. Severity of symptoms: At their worst the symptoms were moderate, in the emergency department the symptoms are unchanged. Modifying factors: The symptoms are alleviated by nothing, the symptoms are aggravated by nothing, Patient's oral intake status: unable to tolerate foods. 81-year-old male presents via [facility] after eating cake hours prior to arrival. Patient states he has a sensation that the cake is stuck in his throat. Patient states he has been able to tolerate liquids. Patient states he is having moderate discomfort. Patient denies alleviating or inciting fac tors. Allergies No Known Allergies Allergy (Verified 03/23/21 04:35) Home medications list reviewed: Yes Home Medications: Sacubitril/Valsartan [Entresto 49 mg-51 mg Tablet] 1 tab PO BID #60 tab 03/23/21 Albuterol Neb [Proventil 0.083% Neb Soln] 2.5 mg NEB Q6HP PRN #60 amp 07/09/21 Atorvastatin Calcium [Lipitor] 40 mg PO BEDTIME #30 tab 07/09/21 Amiodarone HCl [Pacerone] 200 mg PO DAILY #30 tablet 11/30/21 Clopidogrel Bisulfate [Plavix*] 75 mg PO DAILY #30 tablet 11/30/21 Metoprolol Tartrate [Lopressor*] 50 mg PO BID #60 tab 11/30/21 Furosemide 20 mg PO BID #60 tablet 12/28/21 - Past Medical/Surgical History Diabetic: No -: Pacemaker/defibrillator 2010 -: Hypertension -: CAD -: Hyperlipidemia -: History of CVA -: Depression -: Bilateral cataracts -: Chronic systolic CHF -: COPD -: Parkinsons -: CKD III followed by Dr. 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 - Family History Father Medical History: Heart disease Mother Medical History: Heart disease, Hypertension, Diabetes, Cancer - Social History Smoking Status: Unknown if ever smoked Alcohol use: Yes CD- Drugs: No Caffeine use: Yes Place of Residence: Home Review of Systems 10-point ROS is otherwise unremarkable General: Weakness Respiratory: SOB with Excertion Neurological: Weakness Physical Examination Temp Pulse Resp BP Pulse Ox 97.0 F 62 16 161/95 H 100 12/28/21 12:00 12/28/21 12:00 12/28/21 12:00 12/28/21 12:00 12/28/21 12:00 General: Oriented x3, Cooperative HEENT: Atraumatic Neck: Supple Respiratory: Clear to auscultation bilaterally Cardiovascular: No edema, Regular rate/rhythm Gastrointestinal: Soft and benign, Non-distended Musculoskeletal: No clubbing, No contractures Integumentary: No rashes, No cyanosis Neurological: Normal speech Blood work reviewed in the chart. Imagings Data: EXAM DESCRIPTION: RAD - Chest Single View - 12/28/2021 5:17 am CLINICAL HISTORY: pneumonia COMPARISON: Portable 12/27/2021 TECHNIQUE: AP portable chest image was obtained 12/28/2021 5:17 am . FINDINGS: Lung volumes are low, further reduced compared to December 27 imaging. Interstitial pattern in the right lung field is similar or slightly less pronounced. There does appear to be greater airspace opacification in the lower left lung field. This asymmetry is concerning for a left lung base pneumonia and needs correlation with clinical findings and laboratory findings. Upper left lung field is clear of any dense consolidation or significant edema. Defibrillator remains in place. Trachea is midline. Cardiomegaly is present with vascular engorgement. No pneumothorax or enlarging pleural effusion. No acute bony abnormality seen. No acute aortic findings suspected. IMPRESSION: Asymmetric left base airspace opacification without dense consolidation is concerning for a left lung base pneumonia. This needs correlation with exam findings and laboratory findings. Concurrent mild CHF/volume overload findings are stable to slightly improved. Conclusions/Impression: CKD IIIb with Proteinuria -No NSAIDs Hyponatremia -Continue Lasix Hypokalemia -Replete potassium HTN with CKD/ CHF -Continue Metoprolol Systolic CHF, A/C -Low sodium diet -Continue Metoprolol -Continue Lasix Moderate malnutrition -Encourage nutrition including protein supplementation Thank you kindly for the consultation Case discussed with Dr. Lee
== END 2021-12-28 14:48 | disposition home or self-care (01) | DRG 291 ==
LOC: ER 23:55 → ERHOLD 12-27 03:09 → 3RD-ICU 12-27 11:19 → 2ND 12-27 17:05
PROVIDERS: ADMIT Hospitalist; ATTEND Hospitalist
DX: I13.0 Hypertensive heart and chronic kidney disease with heart failure and stage 1 through stage 4 chronic kidney disease, or unspecified chronic kidney disease (principal); I50.33 Acute on chronic diastolic (congestive) heart failure; N18.4 Chronic kidney disease, stage 4 (severe); E87.1 Hypo-osmolality and hyponatremia; E44.0 Moderate protein-calorie malnutrition; I25.10 Atherosclerotic heart disease of native coronary artery without angina pectoris; J44.9 Chronic obstructive pulmonary disease, unspecified; G20 Parkinson's disease; E87.6 Hypokalemia; Z68.26 Body mass index [BMI] 26.0-26.9, adult; E78.2 Mixed hyperlipidemia; Z86.73 Personal history of transient ischemic attack (TIA), and cerebral infarction without residual deficits; Z95.810 Presence of automatic (implantable) cardiac defibrillator; Z20.822 Contact with and (suspected) exposure to COVID-19
CPT/HCPCS: 0240U; 36415; 71045; 80048; 80053; 80061; 81003; 81015; 82550; 82553; 83735; 83880; 84100; 84132; 84484; 85025; 93005; 96374; 99285; J0360; J1644; J1940; J2405

== ENCOUNTER 2022-01-19 18:37 | Emergency (ER) | payer OTHER ==
--- OUTSIDE RECORDS SUMMARY | 2022-01-19 18:42 | XMS REPORT | Continuity of Care Document ---
:1940 Author Organization [facility] t Address [address] [place] [address] Care Team Providers Name Role Phone Eryn [...] 9-11 it y of level level 00:00: [place] [facility] Acute on Acute on Disease Active Unive rs chronic chronic 9-10 [place] of diastolic diastolic [place] congest[place] congestive 00 Me dical heart heart Branch failure failure Chest pain Chest pain Disease Active U nivers 7-07 ity of 00:00: [place] [facility] Obesity Obesity Disease Active Overview: Univ ers 4-17 ICD10 ity of 00:00: Diagnosis Term Medical Claim Processing Specialist Branch Utility Type II or Type II [...] of demia) demia) 00:00: Diagnosis Term Medical Claim Processing Specialist Branch Utility Essential Essential Disease Active Uni [...] Known DA Active U [facility] 10[facility]04 [facility] 00:00: [address] No Known DA Active U [facility] 05-20 [facility] 00:00: [address] NO KNOWN Drug Active Univers ALLERGIE Class ity of S [facility] Social History Social Habit Start Date Stop Date Quantity Comments Source Tobacco Comment quit 30 years Univer sity of ago [facility] Alcohol Comment 3 drinks (vodka) Uni versity of nightly [facility] Sex Assigned At Universit y [facility] Exposure to Unable to assess Univers ity of SARS-CoV-2 [facility] (event) Branch Tobacco use and 2020-05-30 2020-05-30 Never used Universit y of exposure 00:00:00 00:00:00 [facility] Alcohol intake 2020-05-30 2020-05-30 Current drinker Unive rsity of 00:00:00 00:00:00 of alcohol [facility] (finding) [place] Smoking Status Start Date Stop Date Source Never smoker [facility] Medications Ordered Filled Start Stop Current Ordering Indication Dosage Frequency Signature Comments Components Source Medication Medication Date Date Medication? Clinician (SIG) Name Name ASPIRIN 81 2020-0 Yes once daily U nivers MG ORAL 9-16 ity of CHEW 22:57: [address] Branch magnesium 2020-0 Yes 400mg Take 400 Uni vers oxide 9-16 mg by ity of (MAG-OX 22:57: mouth [place] 400) 400 mg 45 daily. Medica l tablet Branch Cyanocobala 2020-[address] Unive rs min 9-16 under the ity of (VITAMIN 22:57: tongue. [place] B-12) 2,500 45 Medical mcg Subl Branch CALCIUM 2020-0 Yes Take by Univer s CARBONATE/V 9-16 mouth. ity of ITAMIN D3 22:57: [place] (VITAMIN 45 Medical D-3 ORAL) [facility] MULTIVITAMI 0 Yes Take by Un audra N 9-16 mouth. ity of W-MINERALS/ 22:57: [place] [address] Medical (CENTRUM Branch SILVER ORAL) ASPIRIN 81 2020-0 Yes once daily U nivers MG ORAL 9-16 ity of CHEW 22:57: [address] Branch magnesium 2020-0 Yes 400mg Take 400 Uni vers oxide 9-16 mg by ity of (MAG-OX 22:57: mouth [place] 400) 400 mg 45 daily. Medica l tablet Branch Cyanocobala 2020-[address] Unive rs min 9-16 under the ity of (VITAMIN 22:57: tongue. [place] B-12) 2,500 45 Medical mcg Subl Branch CALCIUM 2020-0 Yes Take by Univer s CARBONATE/V 9-16 mouth. ity of ITAMIN D3 22:57: [place] (VITAMIN 45 Medical D-3 ORAL) Branch MULTIVITAMI [...] Medical per tablet Branch atorvastati 2020-0 Yes [id number] 20mg Take 1 Univers n 20 mg 9-16 tablet by ity of tablet 00:00: mouth at [place] 00 bedtime. Medical Branch primidone 2020-0 Yes [id number] 50mg Take 1 U nivers 50 mg 9-16 tablet by ity of tablet 00:00: mouth [place] 00 every 12 Medical (twelve) Branch hours. metoprolol 2020-0 Yes [id number] 25mg Take 1 Univers tartrate 25 9-16 tablet by ity of mg tablet 00:00: mouth 2 [place] 00 (two) Medical times Branch daily. sacubitriL- 2020-0 Yes [id number] 1{tbl} Take 1 Univers valsartan 9-16 tablet by ity o f 97-103 mg 00:00: mouth 2 [place] tablet 00 (two) Medical times Branch daily. levoFLOXaci 2020-0 Yes [id number] 500mg Take 1 Univers n 500 mg 9-16 tablet by ity of tablet 00:00: mouth [place] 00 every 24 Medical (twenty-fo Branch ur) hours. acidophilus 2020-0 Yes [id number] 1g Take 1 Univers 100 million 9-16 tablet by ity of cell tablet 00:00: mouth 2 [place] as 00 (two) Medical times Branch daily. atorvastati 2020-0 Yes [id number] 20mg Take 1 Univers n 20 mg 9-16 tablet by ity of tablet 00:00: mouth at [place] 00 bedtime. Medical Branch primidone 2020-0 Yes [id number] 50mg Take 1 U nivers 50 mg 9-16 tablet by ity of tablet 00:00: mouth [place] 00 every 12 Medical (twelve) Branch hours. metoprolol 2020-0 Yes [id number] 25mg Take 1 Univers tartrate 25 9-16 tablet by ity of mg tablet 00:00: mouth 2 [place] 00 (two) Medical times Branch daily. sacubitriL- 2020-0 Yes [id number] 1{tbl} Take 1 Univers valsartan 9-16 tablet by ity o f 97-103 mg 00:00: mouth 2 [place] tablet 00 (two) Medical times Branch daily. levoFLOXaci 2020-0 Yes [id number] 500mg Take 1 Univers n 500 mg 9-16 tablet by ity of tablet 00:00: mouth [place] 00 every 24 Medical (twenty-fo Branch ur) hours. acidophilus 2020-0 Yes [id number] 1g Take 1 Univers 100 million 9-16 tablet by ity of cell tablet 00:00: mouth 2 [place] as 00 (two) Medical times Branch daily. KCL 2020-0 2020- No 20meq 20 mEq, Univers (KLOR-CON 06-03 Oral, ONCE ity of M20) tablet 02:30: 01:54 NOW, 1 [place] as 20 mEq 00 :00 dose, [facility] 06/02/20 at Branch 2130, Routine levoFLOXaci 2020-0 Yes 750mg 750 mg, Un audra n -14 Oral, ity of (LEVAQUIN) 16:00: Q48H, [place] tablet 750 00 First dose Med ical mg on Tue [place] 06/02/20 at 1100, Until Discontinu ed, LICO
[...] First dose [place] mg 00 on [place] [facility] 06/01/20 at Branch 2215, Until Discontinu ed, Routine bisacodyL 2019- 2020- No 10mg 10 mg, Unive rs (DULCOLAX) 06-02 Rectal, ity o f suppository 03:15: 01:59 QHS, 3 [place] as 10 mg 00 :00 doses, Medical First dose Branch on [place] 06/01/20 at 2215, Last dose on Tue06/03/20 at 2100, Routine epoetin 2019- 2020- No 4000U 4,000 Univers renetta-epbx 06-01 Units, ity of (RETACRIT) 19:45: 19:59 Subcutaneo [place] injection 00 :00 us, ONCE, Medic al 4,000 Units [facility] 14[facility], Routine
production team member approving Restricted medication : AKILAH ANDRE ANGELES furosemide 2020- No 40mg 40 mg, IV U nivers (LASIX) 06-01 Push, ity of injection 14:00: 17:48 DAILY, [place] 40 mg 00 :15 First dose Medical (after Branch last modificati on) on [place] 06/01/20 at 0900, Until Discontinu ed, LICO ferrous 2019- 2020- No 325mg 325 mg, Unive rs sulfate 06-01 Oral, BID ity of tablet 325 13:00: 01:14 MEALS, [place] mg 00 :51 First dose Medical on [place] [facility] 06/01/20 at 0800, Until Discontinu ed, [...] First dose Medi mecca mL RTU on [facility] Branch 05/31/20 at 1945, Until Discontinu ed, 50 mL
Reas on for Anti-Infec tive: Documented Infection< br>Documen moshe Infection Site: Respirator y
Durat ion of Therapy: 10 days KCL 2019- 2020- No 40meq 40 mEq, Univers (KLOR-CON 06-01 Oral, ity of M20) tablet 00:45: 01:23 ONCE, 1 [place] 40 mEq 00 :00 dose, [facility] Medical 05/31/20 at Branch 1945, Routine magnesium 2019- No 2g 2 g, IV Univ ers sulfate in 06-01 Piggyback, it y of water 2 00:45: 01:23 ONCE, 1 [place] gram/50 mL 00 :00 dose, [facility] mecca (4 %) 05/31/20 at [place] infusion 2 1944, g Routine sodium Yes 125mg 125 mg, IV Univ ers ferric 05-31 Piggyback, ity of gluconate 14:00: DAILY, [place] (FERRLECIT) 00 First dose Me dical 125 mg in on [facility] NaCl 0.9% 05/31/20 at (NS) 100 mL 0900, IV Until piggyback Discontinu ed, 100 mL
Facu lty member approving Restricted medication : HELENA KUMAR sulfur 2019-2019- No 5mL 5 mL, Univers hexafluorid 05-30 Intravenou i ty of e microsphr 19:00: 16:30 s, ONCE, 1 [place] (LUMASON) 00 :00 dose, Fri Medic al injection 5 05/30/20 at Br anch mL 1400, Routine
production team member approving Restricted medication : VANESSA SHAH vancomycin 2019- 2020- No 15mg/kg 1,000 mg Univers (VANCOCIN) 05-30 (rounded ity of 1,000 mg in 17:15: 14:59 from 990 [place] NaCl 0.9% 00 :52 mg = 15 Medical (NS) 250 mL mg/kg ?66 [facility] VIAL-MATE kg), IV IV Piggyback, piggyback Q24H [...] on Tue Medical tablet 1 05/30/20 at [facility] h tablet 0800, Until Discontinu ed, Routine
production team member approving Restricted medication : MEGADC heparin [...] l tablet 500 05/30/20 at [facility] mg 0115, Until Discontinu ed, Routine cholecalcif [...] 05-30 Oral, ity of (TYLENOL) 06:01: Q6HPRN, [place] tablet 650 34 Starting Medic al mg Fri Branch 05/30/20 at 0101, Until Discontinu ed, Routine, Temp > 38.5 C ondansetron 2020-0 Yes 4mg 4 mg, Slow Univers (ZOFRAN 05-30 IV Push, ity of (PF)) 06:01: Q6HPRN [place] injection 4 16 Starting Medi [place] mg [...] First dose [place] mg 00 on [facility] Medical 05/30/20 at Branch 0100, Until Discontinu ed, Routine metoprolol 2020-0 Yes 25mg 25 mg, Unive rs tartrate 11 Oral, BID, ity o f (LOPRESSOR) 06:00: First dose [place] tablet 25 00 on [facility] Medical mg 05/30/20 at Branch 0100, Until Discontinu ed, Routine atorvastati 2020-0 Yes 40mg 40 mg, Univ ers n (LIPITOR) 05-30 Oral, QHS, it y of tablet 40 06:00: First dose [place] mg 00 on [facility] Medical 05/30/20 at Branch 0100, Until Discontinu [...] Medi mecca Inch ONCE, 1 Branch dose, [facility] 05/29/20 at 2215, LICO furosemide 2020-0 2020- No 60mg 60 mg, IV U nivers (LASIX) 05-30 Push, ity of injection 03:15: 03:39 ONCE, 1 [place] 60 mg 00 :00 dose, [facility] 05/29/20 at Branch 2215, LICO albuterol 2020-0 2020- No 8{puff} 8 Puff, U nivers (VENTOLIN) 05-30 Inhalation it y of inhaler 8 01:45: 01:04 , ONCE, 1 [place] Puff 00 :00 dose, [facility] 05/29/20 at Branch 2045, LICO
Is this order for a patient with suspected or confirmed COVID-19 infection? Yes atorvastati 2020- No [id number] 20mg Take 1 Univers n (LIPITOR) 01-27 tablet by it y of 20 mg 00:00: 00:00 mouth at [place] tablet 00 :00 bedtime. Medical Branch Insulin 2020- No [id number] 8U inject 8 U nivers Glargine 01-27 [...] 20:55:00 156 mm[Hg] Univer sity of pressure [facility] Branch Diastolic blood 2020-06-04 20:55:00 85 mm[Hg] Unive rsity of pressure [facility] Branch Respiratory rate 2020-06-04 20:55:00 18 /min Univ ersity of [facility] Oxygen saturation in 2020-06-04 20:55:00 92 /min University of Arterial blood by [facility] Pulse oximetry Branch Heart rate 2020-06-04 20:00:00 67 /min Universi ty of [facility] Body temperature 2020-06-04 20:00:00 36.06 Razia Univ ersity of [facility] Body weight 2020-06-03 06:15:00 65.998 kg Universi ty of [facility] BMI 2020-06-03 06:15:00 24.21 kg/m2 Universi ty of [facility] Body height 2020-05-30 06:15:[address] [facility] Systolic blood 2020-06-04 20:55:00 156 mm[Hg] Univer sity of pressure [facility] Diastolic blood 2020-06-04 20:55:00 85 mm[Hg] Unive rsity of pressure [facility] Respiratory rate 2020-06-04 20:55:00 18 /min Univ ersity of [facility] Oxygen saturation in 2020-06-04 20:55:00 92 /min University of Arterial blood by [facility] Pulse oximetry Branch Heart rate 2020-06-04 20:00:00 67 /min Universi ty of [facility] Body temperature 2020-06-04 20:00:00 36.06 Razia Univ ersity of [facility] Body weight 2020-06-03 06:15:00 65.998 kg Universi ty of [facility] BMI 2020-06-03 06:15:00 24.21 kg/m2 Universi ty of [facility] Body height 2020-05-30 06:15:[address] [facility] Procedures Procedure Date / Time Performing Clinician Source Performed POCT GLUCOSE (AUTOMATED) 2020-06-04 21:56:[address] versity [facility] POCT GLUCOSE (AUTOMATED) 2020-06-04 16:48:00 Arben Julien Uni versity of [facility] XR CHEST 1 VW 2020-06-04 13:56:16 Vanessa Shah [facility] POCT GLUCOSE (AUTOMATED) 2020-06-04 12:44:00 Arben Julien Uni versity of [facility] POCT GLUCOSE (AUTOMATED) 2020-06-04 01:32:00 Arben Julien Uni versity of [facility] POCT GLUCOSE (AUTOMATED) 2020-06-03 21:46:00 Arben Julien Uni versity of [facility] Branch POCT GLUCOSE (AUTOMATED) 2020-06-03 16:54:00 Arben Julien Uni versity of [facility] POCT GLUCOSE (AUTOMATED) 2020-06-03 12:50:00 Arben Julien Uni versity of [facility] COMP. METABOLIC PANEL 2020-06-03 11:37:[address] [facility] ([id number]) [facility] CBC WITH DIFF 2020-06-03 11:36:00 Sukhwinder Hughes [facility] POCT GLUCOSE (AUTOMATED) 2020-06-03 01:18:00 Arben Julien Uni versity of [facility] POCT GLUCOSE (AUTOMATED) 2020-06-02 21:22:00 Arben Julien Uni versity of [facility] FL MODIFIED BARIUM 2020-06-02 19:00:00 Rufus Goodwin [facility] POCT GLUCOSE (AUTOMATED) 2020-06-02 16:59:00 Arben Julien Uni versity of [facility] POCT GLUCOSE (AUTOMATED) 2020-06-02 13:26:00 Arben Julien Uni versity of [facility] Branch MAGNESIUM 2020-06-02 10:40:00 Buddy [facility] COMP. METABOLIC PANEL 2020-06-02 10:40:00 Buddy [facility] ([id number]) [facility] CBC WITH DIFF 2020-06-02 10:40:00 Arben Julien [facility] POCT GLUCOSE (AUTOMATED) 2020-06-01 21:51:00 rAben Julien Uni versity of [facility] POCT GLUCOSE (AUTOMATED) 2020-06-01 17:00:00 Arben Julien [facility] BLOOD CULTURE SCREEN 2020-06-01 15:42:00 Rufus Goodwin [facility] BLOOD CULTURE SCREEN 2020-06-01 15:29:00 Rufus Goodwin [facility] POCT GLUCOSE (AUTOMATED) 2020-06-01 13:18:00 Arben Julien [facility] MAGNESIUM 2020-06-01 10:14:00 Rufus Goodwin [facility] COMP. METABOLIC PANEL 2020-06-01 10:14:00 Rufus Goodwin [facility] ([id number]) [facility] ACUTE CARE VENOUS BLOOD 2020-06-01 10:14:00 Arben Julien [facility] CBC WITH DIFF 2020-06-01 10:14:[address] [facility] N-TERMINAL PRO-BNP 2020-06-01 10:14:00 Wily hilda [facility] POCT GLUCOSE (AUTOMATED) 2020-06-01 00:42:00 Wily hilda [facility] POCT GLUCOSE (AUTOMATED) 2020-05-31 21:51:00 Wily hilda [facility] AMMONIA, PLASMA 2020-05-31 17:01:00 Rufus Goodwin [facility] POCT GLUCOSE (AUTOMATED) 2020-05-31 16:59:00 Arben Julien [facility] URIC ACID 2020-05-31 08:32:[address] [facility] MAGNESIUM 2020-05-31 08:32:[address] [facility] TROPONIN I 2020-05-31 08:32:[address] [facility] COMP. METABOLIC PANEL 2020-05-31 08:32:00 Wily hilda [facility] ([id number]) [facility] CBC WITH DIFF 2020-05-31 08:32:[address] [facility] N-TERMINAL PRO-BNP 2020-05-31 08:32:00 Wily hilda [facility] POCT GLUCOSE (AUTOMATED) 2020-05-31 00:32:00 Arben Julien [facility] POCT GLUCOSE (AUTOMATED) 2020-05-30 20:44:00 Wily hilda [facility] POCT GLUCOSE (AUTOMATED) 2020-05-30 17:04:00 Arben Julien [facility] TROPONIN I 2020-05-30 16:25:00 Wily hilda [facility] ECHO ROUTINE W/DOPPLER 2020-05-30 16:08:22 Arben Julien [facility] POCT GLUCOSE (AUTOMATED) 2020-05-30 13:56:00 Arben Julien [facility] CT THORAX WO CONTRAST 2020-05-30 10:26:42 Arben Julien [facility] SEDIMENTATION RATE 2020-05-30 09:51:00 Wily hilda [facility] CBC WITH DIFF 2020-05-30 09:51:[address] [facility] URIC ACID 2020-05-30 08:34:[address] [facility] MAGNESIUM 2020-05-30 08:34:[address] [facility] CORTISOL AM 2020-05-30 08:34:[address] [facility] TROPONIN I 2020-05-30 08:34:[address] [facility] COMP. METABOLIC PANEL 2020-05-30 08:34:00 Wily hilda [facility] ([id number]) [facility] IRON PANEL 2020-05-30 08:34:[address] [facility] N-TERMINAL PRO-BNP 2020-05-30 08:34:00 Wily hilda [facility] LEGIONELLA URINARY 2020-05-30 08:29:00 Wily hilda [facility] ANTIGEN TST [facility] SODIUM, URINE RANDOM 2020-05-30 08:28:00 Wily hilda [facility] PROTEIN CREAT RATIO 2020-05-30 08:28:00 Wily hilda [facility] URINE RANDOM [facility] PNEUMOCOCCAL ANTIGEN 2020-05-30 08:27:00 Arben Julien [facility] OSMOLALITY URINE 2020-05-30 08:25:00 Wily hilda [facility] UREA NITROGEN, URINE 2020-05-30 08:25:00 Arben Julien [facility] RANDOM [facility] URINE CULTURE 2020-05-30 08:24:00 Arben Julien [facility] OSMOLALITY SERUM 2020-05-30 07:08:00 Wily hilda [facility] VITAMIN B12, LEVEL 2020-05-30 07:08:00 Arben Julien [facility] FOLATE 2020-05-30 07:08:00 Arben Julien [facility] PROTHROMBIN TIME / INR 2020-05-30 07:08:00 Arben Julien [facility] MYCOPLASMA PNEUMONIAE 2020-05-30 07:08:00 Arben Julien [facility] ANTIBODY, IGM [facility] VITAMIN D, 25-OH 2020-05-30 07:08:00 Arben Julien [facility] PROCALCITONIN 2020-05-30 07:08:00 Arben Julien [facility] BLOOD CULTURE SCREEN 2020-05-30 07:07:00 Arben Julien [facility] BLOOD CULTURE WORKUP 2020-05-30 07:07:00 Arben Julien [facility] BLOOD CULTURE WORKUP 2020-05-30 07:07:00 Arben Julien [facility] GRAM POSITIVE BLOOD 2020-05-30 07:07:00 [facility] PROBE-AEROBIC RESPIRATORY PANEL BY PCR 2020-05-30 05:20:00 Arben Julien [facility] COVID-19 (PCR MOLECULAR 2020-05-30 05:20:00 Arben Julien [facility] TESTING) [facility] EXTERNAL PROVIDER 2020-05-30 05:01:00 Doctor Unassigned, No Univ [facility] RECORDS Name Medical Branch URINALYSIS 2020-05-30 03:39:00 Trice Kraft [facility] XR CHEST 1 VW 2020-05-30 01:45:07 Trice Kraft [facility] CT HEAD WO CONTRAST 2020-05-30 01:34:53 Trice Kraft [facility] EKG-12 LEAD 2020-05-30 01:08:00 Trice Kraft [facility] AC ABG + LACTIC ACID 2020-05-30 01:06:00 Trice Kraft [facility] POCT GLUCOSE(AGE 2020-05-30 01:04:00 Trice Kraft [facility] >30DAYS) [facility] POCT GLUCOSE (AUTOMATED) 2020-05-30 01:03:00 [facility] 2020-05-30 00:59:[address] [facility] CREATINE KINASE 2020-05-30 00:59:[address] [facility] URIC ACID 2020-05-30 00:59:[address] [facility] MAGNESIUM 2020-05-30 00:59:[address] [facility] FERRITIN SERUM 2020-05-30 00:59:[address] [facility] TROPONIN I 2020-05-30 00:59:00 Trice Kraft [facility] THYROID STIMULATING 2020-05-30 00:59:00 Wily hilda [facility] HORMONE [facility] COMP. METABOLIC PANEL 2020-05-30 00:59:00 Trice Kraft [facility] ([id number]) [facility] LIPID PANEL 2020-05-30 00:59:00 Wily hilda [facility] ([id number])(TOTAL Medical [facility] CHOLESTEROL, TRIGLYCERIDES, HDL) CBC WITH DIFF 2020-05-30 00:59:00 Trice Kraft [facility] GLYCOSYLATED HEMOGLOBIN 2020-05-30 00:59:00 Arben Julien [facility] (A1C) [facility] Branch N-TERMINAL PRO-BNP 2020-05-30 00:59:00 Trice Kraft [facility] [place] [facility] COVID-19 (ID NOW RAPID 2020-05-30 00:59:00 EricaharrietNadia bennettbenedict Lauryn [facility] TESTING) Medical Branch EKG-12 LEAD 2020-05-30 00:39:36 EricaharrietSerenity bennettangelina Lauryn [facility] NOTICE OF PRIVACY 2020-05-29 23:34:11 Doctor Unassigned, No [facility] PRACTICES Name Medical Branch CONSENT/REFUSAL FOR 2020-05-29 23:33:17 [facility], [facility] Name Medical Branch Encounters Start End Encounter Admission Attending Care Care Encounter Source Date/Time Date/Time Type Type Clinicians Facility Department ID 2020-06-05 2020-06-05 Transition Mary Kay Cerna [id number] 00:00:00 00:00:00 of Care Cody Stover [id number] [place] [id number] 2020-06-05 2020-06-05 Transition Mary Kay Cerna [id number] Univers 00:00:00 00:00:00 of Care Cody Stover [id number] ity of [place] [id number] [facility] [id number] [facility] 403 Branch 2020-05-29 2020-06-04 [facility] 1.2.840. 114 [id number] 18:50:00 17:57:00 Encounter Arben Julien [id number] [place] [id number] [place] [id number] 2020-05-29 2020-06-04 [facility] 1.2.840. 114 [id number] Univers 18:50:00 17:57:00 Encounter Arben Julien [id number] ity of [place] [id number] [facility] [id number] [facility] 080 Branch 2020-05-29 2020-05-29 Emergency X [facility] ERT [id number] Univers 18:28:00 18:28:00 ity of [place] Medical Branch Results Test Description Test Time Test Comments Results Result Comments Source POCT GLUCOSE (AUTOMATED) 2020-06-04 21:59:00 Test Item Value Reference Range Interpretation Comme nts POCT GLU (test code = 4587112514) 133 mg/dL 70-110 H Lab Interpretation (test code = 00066-2) Abnormal [place] [facility]2020-06-04 17:13:00 Test Item Value Reference Range Interpretation Comments POCT GLU (test code = 1457160561) 154 mg/dL 70-110 H Lab Interpretation (test code = Abnormal 89795-2) [place] [facility] 1 [id number] 14:00:56HISTORY: Follow-up of CHF. TECHNIQUE: AP view [...] ifany, residual pulmonary edema seen at this time.[facility], Radiant Results Inft User - 06/04/2020 9:02 [...] ifany, residual pulmonary edema seen at this time.[facility] GLUCOSE (AUTOMATED)2020-06-04 13:19:00 Test Item Value Reference Range Interpretation Comments POCT GLU (test code = 3466101328) 98 mg/dL 70-110 Lab Interpretation (test code = Normal 64401-9) [place] [facility])2020-06-04 01:35:00 Test Item Value Reference Range Interpretation Comments POCT GLU (test code = 3981061215) 192 mg/dL 70-110 H Lab Interpretation (test code = Abnormal 49991-7) [facility] GLUCOSE (AUTOMATED)2020-06-03 21:51:00 Test Item Value Reference Range Interpretation Comments POCT GLU (test code = 4112072405) 98 mg/dL 70-110 Lab Interpretation (test code = Normal 95623-7) [facility] GLUCOSE (AUTOMATED)2020-06-03 17:28:00 Test Item Value Reference Range Interpretation Comments POCT GLU (test code = [id number]) 195 mg/dL 70-110 H Lab Interpretation (test code = Abnormal 12942-5) [facility] GLUCOSE (AUTOMATED)2020-06-03 13:43:00 Test Item Value Reference Range Interpretation Comments POCT GLU (test code = 8953001469) 98 mg/dL 70-110 Lab Interpretation (test code = Normal 78061-9) [facility] WITH [id number] 13:10:00 Test Item Value Reference Range Interpretation [...] RDW-SD (test code = 46.4 fL 38.5-51.6 91893-6) RDW-CV (test code = 13.7 % 12.1-15.4 788-0) PLT (test code = See_Comment L [Automated 777-3) message] The sy stem which generated this result transmitted reference range : 150 - 328 10*3/ ?L. The reference r martin was not used to interpret this result as normal/abnormal . MPV (test code = 10.5 fL 9.8-13 85329-2) NRBC/100 WBC (test See_Comment [Automat ed code = 0186128234) message] The system which generated this result transmitted reference range : 0.0 - 10.0 /100 WBCs. The refer ence range was not u sed to interpret th is result as normal/abnormal . NRBC x10^3 (test code <0.01 See_Comment [Auto mated = 2196228138) message] The s ystem which generated this result transmitted reference range : 10*3/?L. The reference range was not used to interpret this result as normal/abnormal . GRAN MAT (NEUT) % 55.9 % (test code = 770-8) IMM GRAN % (test code 0.40 % = 7038669257) LYMPH % (test code = 16.5 % 736-9) MONO % (test code = 12.4 % 5905-5) EOS % (test code = 14.0 % 713-8) BASO % (test code = 0.8 % 706-2) GRAN MAT x10^3(ANC) 1.35 10*3/uL 1.99-6.95 L (test code = 8557522831) IMM GRAN x10^3 (test <0.03 0-0.06 code = 5687729358) LYMPH x10^3 (test code 0.40 10*3/uL 1.09-3.23 L = 731-0) MONO x10^3 (test code 0.30 10*3/uL 0.36-1.02 L = 742-7) EOS x10^3 (test code = 0.34 10*3/uL 0.06-0.53 711-2) BASO x10^3 (test code <0.03 0.01-0.09 = 704-7) Lab Interpretation Abnormal (test code = 48434-9) [facility]OL[facility] ([id number])2020-06-03 12:46:00 Test Item Value Reference Range Interpretation Comments NA (test code = 136 mmol/L 135-145 6189144408) K (test code = 3.9 mmol/L 3.5-5 6158885009) CL (test code = 100 mmol/L 98-108 6425944060) CO2 TOTAL (test code = 27 mmol/L 23-31 6309844324) AGAP (test code = 2-16 8949244373) BUN (test code = 37 mg/dL 7-23 H 6379801287) GLUCOSE (test code = 87 mg/dL 70-110 4951065285) CREATININE (test code = 1.85 mg/dL 0.6-1.25 H 2023768403) TOTAL BILI (test code = 0.4 mg/dL 0.1-1.0 3980281324) CALCIUM (test code = 9.4 mg/dL 8.6-10.6 6051591279) T PROTEIN (test code = 6.3 g/dL 6.3-8.2 7531164587) ALBUMIN (test code = 3.2 g/dL 3.5-5 L 6693028935) ALK PHOS (test code = 58 U/L 34-122 7550990998) ALTv (test code = 22 U/L 5-50 1742-6) AST(SGOT) (test code = 31 U/L 13-40 6859892385) eGFR Calculation mL/min/1.73m2 (Non-) (test code = 0985360862) eGFR Calculation mL/min/1.73m2 () (test code = 0008311923) EMIR (test code = EMIR) Association of [...] tests). Lab Interpretation Abnormal (test code = 80589-4) [facility] GLUCOSE (AUTOMATED)2020-06-03 01:56:00 Test Item Value Reference Range Interpretation Comments POCT GLU (test code = 8146057664) 152 mg/dL 70-110 H Lab Interpretation (test code = Abnormal 41878-6) [facility] BARIUM SWALLOW, (COOKIE)2020-06-02 23:24:43 Flash [...] nectar thick liquid, puree or jewelry solids. [facility], Radiant Results Inft User- 06/02/2020 [...] to the speech pathologist's report for further details.[facility] GLUCOSE (AUTOMATED)2020-06-02 21:24:00 Test Item Value Reference Range Interpretation Comments POCT GLU (test code = 129 mg/dL 70-110 H Notifi ed Provider [id number]) Lab Interpretation (test Abnormal code = 00933-5) [facility] GLUCOSE (AUTOMATED)2020-06-02 17:12:00 Test Item Value Reference Range Interpretation Comments POCT GLU (test code = 159 mg/dL 70-110 H Notifi ed Provider [id number]) Lab Interpretation (test Abnormal code = 58417-5) [facility] WITH [id number] 14:34:00 Test Item Value Reference Range Interpretation [...] RDW-SD (test code = 46.7 fL 38.5-51.6 02157-9) RDW-CV (test code = 13.9 % 12.1-15.4 788-0) PLT (test code = See_Comment [Automated 777-3) message] The sy stem which generated this result transmitted reference range : 150 - 328 10*3/ ?L. The reference r martin was not used to interpret this result as normal/abnormal . MPV (test code = 10.4 fL 9.8-13 84314-7) NRBC/100 WBC (test See_Comment [Automat ed code = 2335777055) message] The system which generated this result transmitted reference range : 0.0 - 10.0 /100 WBCs. The refer ence range was not u sed to interpret th is result as normal/abnormal . NRBC x10^3 (test code <0.01 See_Comment [Auto mated = 9141507215) message] The s ystem which generated this result transmitted reference range : 10*3/?L. The reference range was not used to interpret this result as normal/abnormal . GRAN MAT (NEUT) % 58.9 % (test code = 770-8) IMM GRAN % (test code 0.40 % = 0170153768) LYMPH % (test code = 11.3 % 736-9) MONO % (test code = 10.8 % 5905-5) EOS % (test code = 17.3 % 713-8) BASO % (test code = 1.3 % 706-2) GRAN MAT x10^3(ANC) 1.36 10*3/uL 1.99-6.95 L (test code = 1718078414) IMM GRAN x10^3 (test <0.03 0-0.06 code = 5127838165) LYMPH x10^3 (test code 0.26 10*3/uL 1.09-3.23 L = 731-0) MONO x10^3 (test code 0.25 10*3/uL 0.36-1.02 L = 742-7) EOS x10^3 (test code = 0.40 10*3/uL 0.06-0.53 711-2) BASO x10^3 (test code 0.03 10*3/uL 0.01-0.09 = 704-7) Lab Interpretation Abnormal (test code = 26246-4) [facility]2020-06-02 13:45:00 Test Item Value Reference Range Interpretation Comments POCT GLU (test code = 2388691343) 105 mg/dL 70-110 Lab Interpretation (test code = Normal 46182-0) [facility] ChildrenBL[facility] CULTURE [id number] 13:39:00 Test Item Value Reference Range Interpretation Comments Blood Culture Staphylococcus Organism elvia ntified Workup (test epidermidis by DNA probeFor code = 600-7) susceptibility results, refer to culture # - [id number] Gram stain Gram positive cocci Anaerobi c Bottle (test code = 664-3) [facility]. METABOLIC PANEL (36517)2020-06-02 13:10:00 Test Item Value Reference Range Interpretation Comments NA (test code = 133 mmol/L 135-145 L 6541334111) K (test code = 3.4 mmol/L 3.5-5 L 1564772839) CL (test code = 96 mmol/L 98-108 L 2669990287) CO2 TOTAL (test code = 28 mmol/L 23-31 9381938273) AGAP (test code = 2-16 7038744244) BUN (test code = 34 mg/dL 7-23 H 4770297738) GLUCOSE (test code = 135 mg/dL 70-110 H 3610123317) CREATININE (test code = 1.83 mg/dL 0.6-1.25 H 0294915873) TOTAL BILI (test code = 0.4 mg/dL 0.1-1.7 0338514556) CALCIUM (test code = 9.4 mg/dL 8.6-10.6 2603902558) T PROTEIN (test code = 6.0 g/dL 6.3-8.2 L 3299507833) ALBUMIN (test code = 3.1 g/dL 3.5-5 L 2009289390) ALK PHOS (test code = 52 U/L 34-122 8505710546) ALTv (test code = 25 U/L 5-50 1742-6) AST(SGOT) (test code = 31 U/L 13-40 2432477557) eGFR Calculation mL/min/1.73m2 (Non-) (test code = 7608745970) eGFR Calculation mL/min/1.73m2 () (test code = 5944690864) EMIR (test code = EMIR) Association of [...] tests). Lab Interpretation Abnormal (test code = 01907-0) [facility]2020-[facility]-14 13:10:00 Test Item Value Reference Range Interpretation Comments MAGNESIUM (test code = 3019139530) 1.8 mg/dL 1.7-2.4 Lab Interpretation (test code = Normal 59194-5) [facility] ChildrenMYCOPLASMA PNEUMONIAE ANTIBODY, [id number] 11:34:00 Test Item Value Reference Range Interpretation [...] an 12 months post-infection. Performed By: YUMI[facility] amado[address] [place] [id number] aboratory Director: Julisa Choi MD [Aut omated message] The sy stem which generated this result transmit moshe reference range : <=0.76. The reference r martin was not used to int erpret this result as normal/abnormal . [facility] C[facility] [id number] 22:31:00 Test Item Value Reference Range Interpretation Comments Blood Culture-Aerobic Culture positive. No growth AA P revious (test code = 79794-5) See Blood prelim inary Culture Workup verified resu lt for additional was Culture I n information. Progress on 05/30/2020 at 03 19 CDT Blood Culture positive. No growth AA Previous Culture-Anaerobic See Blood preliminar y (test code = 24755-4) Culture Workup veri fied result for additional was Culture I n information. Progress on 05/30/2020 at 07 01 CDT Lab Interpretation Abnormal (test code = 46590-5) [facility]2020-06-01 21:59:00 Test Item Value Reference Range Interpretation Comments POCT GLU (test code = 6776412091) 101 mg/dL 70-110 Lab Interpretation (test code = Normal 44300-5) [facility] GLUCOSE (AUTOMATED)2020-06-01 17:53:00 Test Item Value Reference Range Interpretation Comments POCT GLU (test code = 6924491874) 184 mg/dL 70-110 H Lab Interpretation (test code = Abnormal 03173-2) [facility] [id number] 17:20:00 Test Item Value Reference Range Interpretation Comments Blood Culture-Aerobic Culture positive. No growth AA P revious (test code = 91229-7) See Blood prelim inary Culture Workup verified resu lt for additional was Culture I n information. Progress on 05/30/2020 at 03 19 CDT Blood Culture positive. No growth AA Previous Culture-Anaerobic See Blood preliminar y (test code = 65190-0) Culture Workup veri fied result for additional was Culture I n information. Progress on 05/30/2020 at 07 CDT Lab Interpretation Abnormal (test code = 86489-7) [facility] GLUCOSE (AUTOMATED)2020-06-01 13:22:00 Test Item Value Reference Range Interpretation Comments POCT GLU (test code = 7199803437) 109 mg/dL 70-110 Lab Interpretation (test code = Normal 15918-1) [facility] WITH [id number] 11:12:00 Test Item Value Reference Range Interpretation [...] RDW-SD (test code = 46.0 fL 38.5-51.6 60645-0) RDW-CV (test code = 13.8 % 12.1-15.4 788-0) PLT (test code = See_Comment L [Automated 777-3) message] The sy stem which generated this result transmitted reference range : 150 - 328 10*3/ ?L. The reference r martin was not used to interpret this result as normal/abnormal . MPV (test code = 10.3 fL 9.8-13 96438-4) NRBC/100 WBC (test See_Comment [Automat ed code = 3198798086) message] The system which generated this result transmitted reference range : 0.0 - 10.0 /100 WBCs. The refer ence range was not u sed to interpret th is result as normal/abnormal . NRBC x10^3 (test code <0.01 See_Comment [Auto mated = 3801697286) message] The s ystem which generated this result transmitted reference range : 10*3/?L. The reference range was not used to interpret this result as normal/abnormal . GRAN MAT (NEUT) % 71.9 % (test code = 770-8) IMM GRAN % (test code 0.30 % = 6302901712) LYMPH % (test code = 8.0 % 736-9) MONO % (test code = 10.5 % 5905-5) EOS % (test code = 8.4 % 713-8) BASO % (test code = 0.9 % 706-2) GRAN MAT x10^3(ANC) 2.32 10*3/uL 1.99-6.95 (test code = 0786235034) IMM GRAN x10^3 (test <0.03 0-0.06 code = 1209342382) LYMPH x10^3 (test code 0.26 10*3/uL 1.09-3.23 L = 731-0) MONO x10^3 (test code 0.34 10*3/uL 0.36-1.02 L = 742-7) EOS x10^3 (test code = 0.27 10*3/uL 0.06-0.53 711-2) BASO x10^3 (test code 0.03 10*3/uL 0.01-0.09 = 704-7) Lab Interpretation Abnormal (test code = 39303-3) [facility] ChildrenN-[facility]MINAL [id number] 11:07:00 Test Item Value Reference Range Interpretation Comments NT-proBNP (test code 05705 pg/mL See_Comment H [Autom ated = 9142534716) message] The system which generated this result transmitted reference range : <=450. The reference range was not used to interpret this result as normal/abnormal . EMIR (test code = EMIR) Biotin has been reported to cause a negative bias, interpret results relative to patient's use of biotin. Lab Interpretation Abnormal (test code = 62749-0) [facility]COMP[facility] METABOLIC PANEL (08565)2020-06-01 11:03:00 Test Item Value Reference Range Interpretation Comments NA (test code = 136 mmol/L 135-145 7514222125) K (test code = 3.9 mmol/L 3.5-5 1401650845) CL (test code = 97 mmol/L 98-108 L 0101263704) CO2 TOTAL (test code = 30 mmol/L 23-31 3429632845) AGAP (test code = 2-16 3965482448) BUN (test code = 34 mg/dL 7-23 H 8439786710) GLUCOSE (test code = 112 mg/dL 70-110 H 6723047023) CREATININE (test code = 1.81 mg/dL 0.6-1.25 H 8616282374) TOTAL BILI (test code = 0.5 mg/dL 0.1-1.4 6933067161) CALCIUM (test code = 9.5 mg/dL 8.6-10.6 4121862591) T PROTEIN (test code = 6.2 g/dL 6.3-8.2 L 1235116465) ALBUMIN (test code = 3.2 g/dL 3.5-5 L 5794714833) ALK PHOS (test code = 58 U/L 34-122 0068652088) ALTv (test code = 32 U/L 5-50 1742-6) AST(SGOT) (test code = 38 U/L 13-40 8018916918) eGFR Calculation mL/min/1.73m2 (Non-) (test code = 9415987667) eGFR Calculation mL/min/1.73m2 () (test code = 8734904529) EMIR (test code = EMIR) Association of [...] tests). Lab Interpretation Abnormal (test code = 21552-0) [facility]2020-09-13 11:03:00 Test Item Value Reference Range Interpretation Comments MAGNESIUM (test code = 7004223867) 2.0 mg/dL 1.7-2.4 Lab Interpretation (test code = Normal 95137-4) [facility] CARE VENOUS BLOOD [id number] 10:21:00 Test Item Value Reference Range Interpretation Comments PH (test code = 7.32-7.42 6700631023) PCO2 GIFTY (test code = See_Comment [Auto mated message] The 0148456993) system which ge nerated this result transmit moshe reference range : 41 - 51 mmHg. The refer ence range was not used to interpret this result as normal/abnormal . PO2 GIFTY (test code = See_Comment [Autom ated message] The 7095701374) system which ge nerated this result transmit moshe reference range : 25 - 40 mmHg. The refer ence range was not used to interpret this result as normal/abnormal . HCO3 GIFTY (test code = See_Comment [Auto mated message] The 3031035235) system which ge nerated this result transmit moshe reference range : 24 - 28 mEq/L. The refe rence range was not used to interpret this result as normal/abnormal . AC VBE(BEAKER) (test mEq/L code = 3492297915) [facility] GLUCOSE (AUTOMATED)2020-06-01 01:53:00 Test Item Value Reference Range Interpretation Comments POCT GLU (test code = 7693011613) 124 mg/dL 70-110 H Lab Interpretation (test code = Abnormal 02007-6) [facility] GLUCOSE (AUTOMATED)2020-05-31 22:35:00 Test Item Value Reference Range Interpretation Comments POCT GLU (test code = 3489962988) 105 mg/dL 70-110 Lab Interpretation (test code = Normal 72058-4) [facility] GLUCOSE (AUTOMATED)2020-05-31 17:52:00 Test Item Value Reference Range Interpretation Comments POCT GLU (test code = 1642792132) 106 mg/dL 70-110 Lab Interpretation (test code = Normal 02025-4) [facility] ChildrenAMMONIA, [id number] 17:33:00 Test Item Value Reference Range Interpretation Comments AMMONIA (test code = 1110992151) <9 9-33 L Lab Interpretation (test code = Abnormal 53073-6) [facility] ChildrenGRAM POSITIVE BLOOD PATHOGENS DNA [id number] 14:44:00 Test Item Value Reference Range Interpretation Comments Coagulase Negative Positive Negative A Staphylococcus (test code = 87541-4) EMIR (test code = EMIR) Coagulase negative [...] contact the Antimicrobial Stewardship Program with questions.Pager: ?[phone] Testing included eleven identification and three resistance marker targets. Lab Interpretation Abnormal (test code = 79738-9) [facility]2020-05-31 13:09:00 Test Item Value Reference Range Interpretation Comments POCT GLU (test code = 3610480658) 154 mg/dL 70-110 H Lab Interpretation (test code = Abnormal 28065-2) [facility] ChildrenURINE [id number] 12:11:00 Test Item Value Reference Range Interpretation Comments URINE CULTURE (test No aerobic growth (< code = 630-4) 1000 CFU/mL) [facility] ChildrenN-TERMINAL [id number] 11:51:00 Test Item Value Reference Range Interpretation Comments NT-proBNP (test code 99452 pg/mL See_Comment H [Autom ated = 0851056460) message] The system which generated this result transmitted reference range : <=450. The reference range was not used to interpret this result as normal/abnormal . EMIR (test code = EMIR) Biotin has been reported to cause a negative bias, interpret results relative to patient's use of biotin. Lab Interpretation Abnormal (test code = 93127-6) [facility] ChildrenURIC [id number] 11:25:00 Test Item Value Reference Range Interpretation Comments URIC ACID (test code = 1649896411) 9.0 mg/dL 3.6-8 H Lab Interpretation (test code = Abnormal 74524-5) [facility] WITH [id number] 11:02:00 Test Item Value Reference Range Interpretation [...] RDW-SD (test code = 47.7 fL 38.5-51.6 21434-8) RDW-CV (test code = 14.0 % 12.1-15.4 788-0) PLT (test code = See_Comment L [Automated 777-3) message] The sy stem which generated this result transmitted reference range : 150 - 328 10*3/ ?L. The reference r martin was not used to interpret this result as normal/abnormal . MPV (test code = 10.5 fL 9.8-13 22081-2) NRBC/100 WBC (test See_Comment [Automat ed code = 1796529048) message] The system which generated this result transmitted reference range : 0.0 - 10.0 /100 WBCs. The refer ence range was not u sed to interpret th is result as normal/abnormal . NRBC x10^3 (test code <0.01 See_Comment [Auto mated = 5956582478) message] The s ystem which generated this result transmitted reference range : 10*3/?L. The reference range was not used to interpret this result as normal/abnormal . GRAN MAT (NEUT) % 81.0 % (test code = 770-8) IMM GRAN % (test code 0.40 % = 9648204721) LYMPH % (test code = 4.8 % 736-9) MONO % (test code = 11.5 % 5905-5) EOS % (test code = 1.7 % 713-8) BASO % (test code = 0.6 % 706-2) GRAN MAT x10^3(ANC) 4.23 10*3/uL 1.99-6.95 (test code = 4939567314) IMM GRAN x10^3 (test <0.03 0-0.06 code = 2268253142) LYMPH x10^3 (test code 0.25 10*3/uL 1.09-3.23 L = 731-0) MONO x10^3 (test code 0.60 10*3/uL 0.36-1.02 = 742-7) EOS x10^3 (test code = 0.09 10*3/uL 0.06-0.53 711-2) BASO x10^3 (test code 0.03 10*3/uL 0.01-0.09 = 704-7) Lab Interpretation Abnormal (test code = 45200-8) [id number] 10:45[facility]00 Test Item Value Reference Range Interpretation Comments TROPONIN I (test 0.167 ng/mL See_Comment H [Automated code = 1296952953) message] The system which generated this result [...] ? Lab Interpretation Abnormal (test code = 75685-2) [facility] ChildrenCOM[facility] METABOLIC PANEL (61835)2020-05-31 10:35:00 Test Item Value Reference Range Interpretation Comments NA (test code = 133 mmol/L 135-145 L 1614874390) K (test code = 3.4 mmol/L 3.5-5 L 4201366569) CL (test code = 95 mmol/L 98-108 L 1027885542) CO2 TOTAL (test code = 29 mmol/L 23-31 7000294523) AGAP (test code = 2-16 4133929471) BUN (test code = 36 mg/dL 7-23 H 7665886697) GLUCOSE (test code = 136 mg/dL 70-110 H 1232274549) CREATININE (test code = 1.71 mg/dL 0.6-1.25 H 9212051243) TOTAL BILI (test code = 0.8 mg/dL 0.1-1.6 4321395685) CALCIUM (test code = 9.4 mg/dL 8.6-10.6 5243610033) T PROTEIN (test code = 6.5 g/dL 6.3-8.2 0239107274) ALBUMIN (test code = 3.4 g/dL 3.5-5 L 9639013296) ALK PHOS (test code = 59 U/L 34-122 7836987483) ALTv (test code = 35 U/L 5-50 1742-6) AST(SGOT) (test code = 42 U/L 13-40 H 6539980619) eGFR Calculation mL/min/1.73m2 (Non-) (test code = 5547902251) eGFR Calculation mL/min/1.73m2 () (test code = 9695399272) EMIR (test code = EMIR) Association of [...] tests). Lab Interpretation Abnormal (test code = 19275-3) [facility]2020-[facility]-12 10:35:00 Test Item Value Reference Range Interpretation Comments MAGNESIUM (test code = 6619477058) 1.4 mg/dL 1.7-2.4 L Lab Interpretation (test code = Abnormal 37246-4) [facility])2020-05-30 21:17:00 Test Item Value Reference Range Interpretation Comments POCT GLU (test code = 9919331459) 105 mg/dL 70-110 Lab Interpretation (test code = Normal 85002-5) [facility] ChildrenPNEUMOCOCCAL [id number] 19:20:00 Test Item Value Reference Range Interpretation Comments S. pneumoniae antigen Positive Negative A (test code = 9641378094) EMIR (test code = EMIR) S. pneumoniae vaccine may give false positive results in urine with this assay in the 48 hours following vaccination. Lab Interpretation (test Abnormal code = 24309-8) [facility] ChildrenLEGIONELLA URINARY ANTIGEN [id number] 19:20:00 Test Item Value Reference Range Interpretation Comments Legionella Urinary Negative Negative Antigen (test code = 5926668047) EMIR (test code = EMIR) Negative for [...] test. Lab Interpretation (test Normal code = 07692-0) [facility] ChildrenCORTISOL [id number] 18:48:00 Test Item Value Reference Range Interpretation Comments SHAYY AM (test code = 23.8 ug/dL 4.5-23 H 3131911971) EMIR (test code = EMIR) Biotin has been reported to cause a positive bias, interpret results relative to patient's use of biotin. Lab Interpretation (test Abnormal code = 49986-4) [facility])2020-05-30 17:17:00 Test Item Value Reference Range Interpretation Comments POCT GLU (test code = 3358085251) 117 mg/dL 70-110 H Lab Interpretation (test code = Abnormal 81190-2) [facility] ChildrenTROPONIN [id number] 17:14:00 Test Item Value Reference Range Interpretation Comments TROPONIN I (test 0.222 ng/mL See_Comment H [Automated code = 9720355213) message] The system which generated this result [...] ? Lab Interpretation Abnormal (test code = 77002-3) [facility] ChildrenOSMOLALITY [id number] 16:53:00 Test Item Value Reference Range Interpretation Comments OSMO U (test code = See_Comment [Automa moshe message] 2741381438) The system [email or web address] generated this result transmitted ref erence range: 50-1,100 mOsm/kg. The re ference range was not u sed to interpret this result as normal/abnor mal. Lab Interpretation (test Normal code = 61102-6) [facility] ChildrenVITAMIN D, [id number] 16:43:00 Test Item Value Reference Range Interpretation Comments VIT D 25OH (test code = 29 ng/mL 25-80 56004-0) EMIR (test code = EMIR) Deficiency: <20 ng/mLInsufficiency : 20-24 ng/mLOptimal: 25-80 ng/mL Lab Interpretation (test Normal code = 96793-5) [facility] ChildrenUREA NITROGEN, URINE [id number] 15:44:00 Test Item Value Reference Range Interpretation Comments UREA N UR (test code = 6606010646) 114 mg/dL [facility] ChildrenCT THORAX WO [id number] 15:23:12 1. ?Pulmonary edema with moderate volume [...] sagittal MPR images were generated and reviewed.(Display lxfmr-ty-lmra = 35 cm) FINDINGS: Lower neck/thyroid: Unremarkable. [...] sagittal MPR images were generated and reviewed.(Display djkys-zi-dwpw = 35 cm)FINDINGS:Lower neck/thyroid: Unremarkable.Lungs: Centrilobular septal [...] reviewed this study and agree with theabove report.[facility] 2020-05-30 14:53:00 Test Item Value Reference Range Interpretation Comments POCT GLU (test code = 6538297274) 100 mg/dL 70-110 Lab Interpretation (test code = Normal 10167-9) [facility] ChildrenVITAMIN B12, [id number] 13:07:00 Test Item Value Reference Range Interpretation Comments VIT B12 (test code = 412 pg/mL 240-930 0778581022) EMIR (test code = EMIR) Biotin has been reported to cause a positive bias, interpret results relative to patient's use of biotin. Lab Interpretation (test Normal code = 20838-6) [facility] ChildrenFOLATE2020-09-11 13:07:00 Test Item Value Reference Range Interpretation Comments FOLATE SER (test code = 8.4 ng/mL 3-20 Biot in has been 0691603515) reported to cau se a positive bias, interpret resul ts relative to patient's use o f biotin. Lab Interpretation (test Normal code = 48087-0) [facility] ChildrenCORONAVIRUS COVID-19 [id number] 12:49:00 Test Item Value Reference Range Interpretation Comments SARS-CoV-2 PCR (test Not Detected Not Detected code = 65899-5) EMIR (test code = EMIR) Cepheid Xpert ?Xpress SARS-CoV-2 Assay is a rapid, real-time RT-PCR test intended for the qualitative detection of nucleic acid from the SARS-CoV-2 in nasopharyngeal (UNCLAIMED PROPERTY MANAGER) specimens. It is used under Emergency Use [...] indicated. Lab Interpretation Normal (test code = 69064-2) [facility] ChildrenRESPIRATORY PANEL BY [id number] 12:44:00 Test Item Value Reference Range Interpretation Comments Adenovirus (test code = Negative Negative 13399-0) Coronavirus HKU1 (test Negative Negative code = 19873-9) Coronavirus NL63 (test Negative Negative code = 87628-5) Coronavirus 229E (test Negative Negative code = 54319-2) Coronavirus OC43 (test Negative Negative code = 08069-5) Human Metapneumovirus Negative Negative (test code = 17831-9) Human Negative Negative Rhinovirus/Enterovirus (test code = 12523-8) Influenza A (test code = Negative Negative 84870-9) Influenza B (test code = Negative Negative 55785-0) Parainfluenza Virus 1 Negative Negative (test code = 38168-7) Parainfluenza Virus 2 Negative Negative (test code = 62877-9) Parainfluenza Virus 3 Negative Negative (test code = 19104-2) Parainfluenza Virus 4 Negative Negative (test code = 83071-1) Respiratory Syncytial Negative Negative Virus (test code = 19063-5) Bordetella parapertussis Negative Negative (test code = 21865-9) Bordetella pertussis Negative Negative (test code = 58319-4) Chlamydia pneumoniae Negative Negative (test code = 45319-4) Mycoplasma pneumoniae Negative Negative (test code = 35182-9) EMIR (test code = EMIR) Negative:A negative result does not rule-out infection. ?This assay does not test for all potential infectious agents. ? Positive:A positive test result does not necessarily indicate the presence of viable organism. ? Lab Interpretation (test Normal code = 08436-2) [facility]PROCAL[facility]ONIN2020-09-11 12:14:00 Test Item Value Reference Range Interpretation Comments Procalcitonin (test 0.06 ng/mL <0.07 code = 9731134507) EMIR (test code = EMIR) INTERPRETATION OF [...] lung abscess/empyema. For further information please refer to:[email or web address] Lab Interpretation Normal (test code = 20503-1) [facility] ChildrenOSMOLALITY [id number] 11:49:00 Test Item Value Reference Range Interpretation Comments OSMOLALITY (test code = See_Comment [Au tomated message] 4036511733) The system [email or web address] generated this result transmitted ref erence range: 278 - 30 5 mOsm/kg. The re ference range was not u sed to interpret this result as normal/abnor mal. Lab Interpretation (test Normal code = 86253-8) [facility] ChildrenN-TERMINAL [id number] 11:19:00 Test Item Value Reference Range Interpretation Comments NT-proBNP (test code 50872 pg/mL See_Comment H [Autom ated = 9327231987) message] The system which generated this result transmitted reference range : <=450. The reference range was not used to interpret this result as normal/abnormal . EMIR (test code = EMIR) Biotin has been reported to cause a negative bias, interpret results relative to patient's use of biotin. Lab Interpretation Abnormal (test code = 32661-2) [facility] ChildrenSEDIMENTATION [id number] 11:01:00 Test Item Value Reference Range Interpretation Comments ESR (test code = See_Comment H [Automated message] 9751670118) The system [email or web address] generated this result transmitted ref erence range: 0 - 10 m m/HR. The reference r martin was not used to interpret this result as normal/abnor mal. Lab Interpretation (test Abnormal code = 34049-9) [facility] ChildrenTROPONIN [id number] 10:57:00 Test Item Value Reference Range Interpretation Comments TROPONIN I (test 0.233 ng/mL See_Comment H [Automated code = 7552459373) message] The system which generated this result [...] ? Lab Interpretation Abnormal (test code = 14058-8) [facility] ChildrenIRON [id number] 10:53:00 Test Item Value Reference Range Interpretation Comments IRON (test code = 9975557083) 37 ug/dL 50-160 L TIBC (test code = 0834106636) 259 ug/dL 250-410 % FE SAT (test code = 6514096566) 14 % 20-50 L Lab Interpretation (test code = Abnormal 51991-6) [facility] ChildrenCOM. METABOLIC PANEL (37750)2020-05-30 10:44:00 Test Item Value Reference Range Interpretation Comments NA (test code = 135 mmol/L 135-145 1101113596) K (test code = 4.3 mmol/L 3.5-5 6692895706) CL (test code = 98 mmol/L 98-108 5151269647) CO2 TOTAL (test code = 26 mmol/L 23-31 9065506314) AGAP (test code = 2-16 1442980469) BUN (test code = 29 mg/dL 7-23 H 6333042632) GLUCOSE (test code = 127 mg/dL 70-110 H 2404833268) CREATININE (test code = 1.38 mg/dL 0.6-1.25 H 8525096019) TOTAL BILI (test code = 0.9 mg/dL 0.1-1.5 5736673620) CALCIUM (test code = 9.4 mg/dL 8.6-10.6 3202712885) T PROTEIN (test code = 6.6 g/dL 6.3-8.2 2972858858) ALBUMIN (test code = 3.7 g/dL 3.5-5 7248404625) ALK PHOS (test code = 65 U/L 34-122 1145372740) ALTv (test code = 28 U/L 5-50 1742-6) AST(SGOT) (test code = 42 U/L 13-40 H 3429592231) eGFR Calculation mL/min/1.73m2 (Non-) (test code = 1494628521) eGFR Calculation mL/min/1.73m2 () (test code = 9579745899) EMIR (test code = EMIR) Association of [...] tests). Lab Interpretation Abnormal (test code = 60990-1) [facility] ChildrenMAGNESIUM2020-09-11 10:44:00 Test Item Value Reference Range Interpretation Comments MAGNESIUM (test code = 1537414255) 1.4 mg/dL 1.7-2.4 L Lab Interpretation (test code = Abnormal 50457-5) [facility] ChildrenURIC [id number] 10:44:00 Test Item Value Reference Range Interpretation Comments URIC ACID (test code = 3730434099) 7.8 mg/dL 3.6-8 Lab Interpretation (test code = Normal 96436-0) [facility] ChildrenPROTEIN CREAT RATIO URINE [id number] 10:29:00 Test Item Value Reference Range Interpretation Comments T. PROT U (test code = 104 mg/dL 2888-6) CREAT U (test code = 14.4 mg/dL 7356673688) Protein/Creatinine Ratio 0.0-2.0 H Urine (test code = 7425263766) EMIR (test code = EMIR) Random Urine Total Protein Reference Ranges Random Specimen: ? Less than 10 mg/dLFirst Morning Specimen: ? ?Less than 20 mg/dL ? Lab Interpretation (test Abnormal code = 48347-9) [facility] ChildrenCBC WITH [id number] 10:28:00 Test Item Value Reference Range Interpretation Comments WBC (test code = See_Comment [Automated 1432-2) message] The sy stem which generated this result transmitted reference range : 4.20 - 10.70 10*3/?L. The reference range was not used to interpret this result as normal/abnormal . RBC (test code = See_Comment L [Automated 117-8) message] The sy stem which generated this [...] RDW-SD (test code = 47.6 fL 38.5-51.6 65127-8) RDW-CV (test code = 14.2 % 12.1-15.4 788-0) PLT (test code = See_Comment L [Automated 777-3) message] The sy stem which generated this result transmitted reference range : 150 - 328 10*3/ ?L. The reference r martin was not used to interpret this result as normal/abnormal . MPV (test code = 10.5 fL 9.8-13 02469-7) NRBC/100 WBC (test See_Comment [Automat ed code = 3524773281) message] The system which generated this result transmitted reference range : 0.0 - 10.0 /100 WBCs. The refer ence range was not u sed to interpret th is result as normal/abnormal . NRBC x10^3 (test code <0.01 See_Comment [Auto mated = 6847775232) message] The s ystem which generated this result transmitted reference range : 10*3/?L. The reference range was not used to interpret this result as normal/abnormal . GRAN MAT (NEUT) % 83.1 % (test code = 770-8) IMM GRAN % (test code 0.40 % = 7819267609) LYMPH % (test code = 3.7 % 736-9) MONO % (test code = 11.8 % 5905-5) EOS % (test code = 0.4 % 713-8) BASO % (test code = 0.6 % 706-2) GRAN MAT x10^3(ANC) 4.52 10*3/uL 1.99-6.95 (test code = 9891129182) IMM GRAN x10^3 (test <0.03 0-0.06 code = 0349979975) LYMPH x10^3 (test code 0.20 10*3/uL 1.09-3.23 L = 731-0) MONO x10^3 (test code 0.64 10*3/uL 0.36-1.02 = 742-7) EOS x10^3 (test code = <0.03 0.06-0.53 L 711-2) BASO x10^3 (test code 0.03 10*3/uL 0.01-0.09 = 704-7) Lab Interpretation Abnormal (test code = 95551-0) [facility] ChildrenSODIUM, URINE [id number] 10:25:00 Test Item Value Reference Range Interpretation Comments NA URINE (test code = 9209785290) 123 mmol/L [facility] ChildrenPROTHROMBIN TIME / [id number] 08:09:00 Test Item Value Reference Range Interpretation Comments PROTIME PATIENT (test See_Comment [Auto mated message] code = 5964-2) The system [employer] generated this result transmitted ref erence range: 12.0 - 1 4.7 Seconds. The re ference range was not u sed to interpret this result as normal/abnor mal. INR (test code = 6301-6) Nor mal INR <1.1; Warfarin Therap eutic range 2.0 to 3. 0 or 2.5 to 3.5, dep ending upon the indica tions. Lab Interpretation (test Normal code = 25059-8) [facility] ChildrenGLYCOSYLATED HEMOGLOBIN (A1C)2020-05-30 07:33:00 Test Item Value Reference Range Interpretation Comments HGB A1C (test code = 5.4 % 4-6 4548-4) EMIR (test code = EMIR) %A1C (NGSP) Interpretation (ADA)4.8-5.6 ? ? Normal or (Non-Diabetic Range)5.7-6.4 ? ? Increased Risk (Pre-Diabetic)>6.5 ?Diabetes Indicated Lab Interpretation Normal (test code = 10472-4) [facility] ChildrenLIPID PANEL (11549)(TOTAL CHOLESTEROL, TRIGLYCERIDES, HDL)2020-05-30 07:20:00 Test Item Value Reference Range Interpretation Comments CHOL (test code = 174 mg/dL 120-200 9638426881) HDL (test code = 37 mg/dL >40 L 0085209888) HDLC RATIO (test code = See_Comment [Au tomated message] 3465902989) The system [email or web address] generated this result transmit moshe reference range : <=5.0. The refe rence range was not u sed to interpret th is result as normal/abnormal . TRIG (test code = 85 mg/dL 30-170 6751604546) LDL CHOL (test code = 120 mg/dL See_Comment [Auto mated message] 47041-9) The system [email or web address] generated this result transmit moshe reference range : <=160. The refe rence range was not u sed to interpret th is result as normal/abnormal . VLDL (test code = 17 mg/dL 5-60 3365335129) Lab Interpretation (test Abnormal code = 55054-1) [facility] ChildrenCREATINE [id number] 07:19:00 Test Item Value Reference Range Interpretation Comments CK (test code = 3596952793) 88 U/L 33-194 Lab Interpretation (test code = Normal 88552-4) [facility] ChildrenURIC [id number] 07:19:00 Test Item Value Reference Range Interpretation Comments URIC ACID (test code = 3844119110) 7.9 mg/dL 3.6-8 Lab Interpretation (test code = Normal 76061-7) [facility] ChildrenFERRITIN [id number] 06:48:00 Test Item Value Reference Range Interpretation Comments FERRITIN (test code = 73.2 ng/mL 18-464 3044217736) EMIR (test code = EMIR) Biotin has been reported to cause a negative bias, interpret results relative to patient's use of biotin. Lab Interpretation (test Normal code = 01966-6) [facility] ChildrenTHYROID STIMULATING [id number] 06:46:00 Test Item Value Reference Range Interpretation Comments TSH (test code = See_Comment [Automated message] 8434331238) The system [email or web address] generated this result transmitted ref erence range: 0.45 - 4 .70 mIU/L. The refe rence range was not u sed to interpret this result as normal/abnor mal. Lab Interpretation (test Normal code = 59871-7) [facility] ChildrenMAGNESIUM2020-09-11 06:19:00 Test Item Value Reference Range Interpretation Comments MAGNESIUM (test code = 4262033522) 1.6 mg/dL 1.7-2.4 L Lab Interpretation (test code = Abnormal 32487-6) [facility] ChildrenPHOSPHORUS2020-09-11 06:19:00 Test Item Value Reference Range Interpretation Comments PHOSPHORUS (test code = 4795843369) 2.9 mg/dL 2.5-5 Lab Interpretation (test code = Normal 16988-0) [facility] ChildrenURINALYSIS2020-09-11 04:26:00 Test Item Value Reference Range Interpretation Comments APPEARANCE (test code = Clear Clear 7066010322) COLOR (test code = Yellow Yellow 6503792462) PH (test code = 4.8-8.0 7549860701) SP GRAVITY (test code = 1.003-1.030 5192480485) GLU U QUAL (test code = Normal Normal 2292091139) BLOOD (test code = 1+ Negative A 9888728185) KETONES (test code = Negative Negative 1618993979) PROTEIN (test code = 500 mg/dL Negative A 2887-8) UROBILIN (test code = Normal Normal 6798043065) BILIRUBIN (test code = Negative Negative 8799351424) NITRITE (test code = Negative Negative 4203000309) LEUK MARLENA (test code = Negative Negative 0193659259) RBC/HPF (test code = See_Comment H [Autom ated message] 6522260617) The system [email or web address] generated this result transmit moshe reference range : 0 - 3 HPF. The refe rence range was not u sed to interpret th is result as normal/abnormal . WBC/HPF (test code = See_Comment [Autom ated message] 2004851650) The system [email or web address] generated this result transmit moshe reference range : 0 - 5 HPF. The refe rence range was not u sed to interpret th is result as normal/abnormal . BACTERIA (test code = Few Negative A 6816997955) MUCOUS (test code = Slight Negative LPF A 7462455110) HYAL CAST (test code = See_Comment H [Aut omated message] 3515710860) The system [email or web address] generated this result transmit moshe reference range : <=2 LPF. The refere nce range was not u sed to interpret th is result as normal/abnormal . GRAN CASTS (test code = See_Comment H [Au tomated message] 3716654729) The system [email or web address] generated this result transmit moshe reference range : <=1 LPF. The refere nce range was not u sed to interpret th is result as normal/abnormal . Lab Interpretation (test Abnormal code = 86346-8) [facility] ChildrenXR CHEST 1 [id number] 03:33:16 Multifocal interstitial and airspace opacities are concerning forbronchopneumonia. These findings can also be seen with atypical infectiousprocess, including COVID-19 pneumonia. Disclaimer: Generally,the findings on chest imaging in COVID-19 are notspecific, and overlap with other infections, including influenza, H1N1,SARS and MERS.According to the Centers for Disease Control (CDC) and recent statement ofthe [employer], viral testing remains the [...] Disease Control (CDC) and recent statement ofthe [employer], viral testing remains the only specificmethod of diagnosis. Confirmation with the viral test is required, even ifradiologic findings are suggestive of COVID-[address]Preliminary Report Dictated by Resident: Darvin Duarte, Ming Lara MD., have reviewed this study and agree with the abovereport.[facility] ChildrenCOVID-19 (ID NOW RAPID TESTING)2020-05-30 01:54:00 Test Item Value Reference Range Interpretation Comments SARS-CoV-2 Rapid ID NOW Not Detected Not Detected (test code = 71804-0) EMIR (test code = EMIR) ID NOW COVID-19 Assay is an isothermal nucleic acid amplification test intended for the qualitative detection of nucleic acid from SARS-CoV-2 viral RNA in nasopharyngeal (UNCLAIMED PROPERTY [employer]NAGER) specimens. It is used under Emergency Use [...] indicated. Lab Interpretation Normal (test code = 46455-0) [facility] ChildrenTROPONIN [id number] 01:52:00 Test Item Value Reference Range Interpretation Comments TROPONIN I (test 0.148 ng/mL See_Comment H [Automated code = 4701351327) message] The system which generated this result [...] ? Lab Interpretation Abnormal (test code = 06968-1) [facility] ChildrenN-TERMINAL [id number] 01:49:00 Test Item Value Reference Range Interpretation Comments NT-proBNP (test code 98057 pg/mL See_Comment H [Autom ated = 9529041880) message] The system which generated this result transmitted reference range : <=450. The reference range was not used to interpret this result as normal/abnormal . EMIR (test code = EMIR) Biotin has been reported to cause a negative bias, interpret results relative to patient's use of biotin. Lab Interpretation Abnormal (test code = 84857-7) [facility] ChildrenCOM. METABOLIC PANEL (48628)2020-05-30 01:41:00 Test Item Value Reference Range Interpretation Comments NA (test code = 135 mmol/L 135-145 2537799744) K (test code = 4.0 mmol/L 3.5-5 0245628625) CL (test code = 98 mmol/L 98-108 3206038309) CO2 TOTAL (test code = 27 mmol/L 23-31 6857126053) AGAP (test code = 2-16 0729935927) BUN (test code = 27 mg/dL 7-23 H 1083473232) GLUCOSE (test code = 143 mg/dL 70-110 H 2739372804) CREATININE (test code = 1.51 mg/dL 0.6-1.25 H 7411474962) TOTAL BILI (test code = 0.6 mg/dL 0.1-1.7 7804189295) CALCIUM (test code = 9.5 mg/dL 8.6-10.6 4387709395) T PROTEIN (test code = 6.9 g/dL 6.3-8.2 8410688278) ALBUMIN (test code = 3.9 g/dL 3.5-5 0147084800) ALK PHOS (test code = 78 U/L 34-122 0159356602) ALTv (test code = 29 U/L 5-50 1742-6) AST(SGOT) (test code = 37 U/L 13-40 8875514041) eGFR Calculation mL/min/1.73m2 (Non-) (test code = 8068645088) eGFR Calculation mL/min/1.73m2 () (test code = 6491536312) EMIR (test code = EMIR) Association of [...] tests). Lab Interpretation Abnormal (test code = 90048-0) [facility] HEAD WO [id number] 01:40:13 No acute intracranial hemorrhage or mass [...] ethmoid aircell.IMPRESSIONNo acute intracranial hemorrhage or mass effect.[facility] GLUCOSE (AUTOMATED)2020-05-30 01:23:00 Test Item Value Reference Range Interpretation Comments POCT GLU (test code = 5495596167) 130 mg/dL 70-110 H Lab Interpretation (test code = Abnormal 20003-9) [facility] WITH [id number] 01:22:00 Test Item Value Reference Range Interpretation Comments WBC (test code = See_Comment [Automated 3590-2) message] The sy stem which generated this result transmitted reference range : 4.20 - 10.70 10*3/?L. The reference range was not used to interpret this result as normal/abnormal . RBC (test code = See_Comment L [Automated 889-8) message] The sy stem which generated this [...] RDW-SD (test code = 46.8 fL 38.5-51.6 07433-0) RDW-CV (test code = 13.9 % 12.1-15.4 788-0) PLT (test code = See_Comment [Automated 777-3) message] The sy stem which generated this result transmitted reference range : 150 - 328 10*3/ ?L. The reference r martin was not used to interpret this result as normal/abnormal . MPV (test code = 9.9 fL 9.8-13 74971-2) NRBC/100 WBC (test See_Comment [Automat ed code = 8760615157) message] The system which generated this result transmitted reference range : 0.0 - 10.0 /100 WBCs. The refer ence range was not u sed to interpret th is result as normal/abnormal . NRBC x10^3 (test code <0.01 See_Comment [Auto mated = 5079474030) message] The s ystem which generated this result transmitted reference range : 10*3/?L. The reference range was not used to interpret this result as normal/abnormal . GRAN MAT (NEUT) % 82.3 % (test code = 770-8) IMM GRAN % (test code 0.50 % = 9930185060) LYMPH % (test code = 5.5 % 736-9) MONO % (test code = 10.6 % 5905-5) EOS % (test code = 0.6 % 713-8) BASO % (test code = 0.5 % 706-2) GRAN MAT x10^3(ANC) 5.23 10*3/uL 1.99-6.95 (test code = 0638751869) IMM GRAN x10^3 (test 0.03 10*3/uL 0-0.06 code = 3656313835) LYMPH x10^3 (test code 0.35 10*3/uL 1.09-3.23 L = 731-0) MONO x10^3 (test code 0.67 10*3/uL 0.36-1.02 = 742-7) EOS x10^3 (test code = 0.04 10*3/uL 0.06-0.53 L 711-2) BASO x10^3 (test code 0.03 10*3/uL 0.01-0.09 = 704-7) Lab Interpretation Abnormal (test code = 86606-1) [facility] ChildrenAC ABG + LACTIC [id number] 01:14:00 Test Item Value Reference Range Interpretation Comments PH (test code = 2) 7.35-7.45 PCO2 (test code = See_Comment [Automat ed 6578228375) message] The sy stem which generated this result transmitted reference range : 35 - 45 mmHg. The reference range was not used to interpret this result as normal/abnormal . PO2 (test code = See_Comment H [Automated 7956805025) message] The sy stem which generated this result transmitted reference range : 80 - 100 mmHg. The reference range was not used to interpret this result as normal/abnormal . HCO3 (test code = See_Comment [Automate d 2890923004) message] The sy stem which generated this result transmitted reference range : 22 - 26 mEq/L. The reference range was not used to interpret this result as normal/abnormal . BE (test code = See_Comment [Automated 6434527083) message] The sy stem which generated this result transmitted reference range : -3.0 - 3.0 mEq/ L. The reference r martin was not used to interpret this result as normal/abnormal . LACTIC ACID (test code 1.10 mmol/L = 5579173786) Lab Interpretation Abnormal (test code = 17926-4) [facility] ChildrenPO[facility] GLUCOSE(AGE >30DAYS)2020-05-30 01:04:00 Test Item Value Reference Range Interpretation Comments POCT Glu (age>30days) (test code = 130 mg/dL 70-110 A 3342) Lab Interpretation (test code = Abnormal 52920-1) [facility]"
--- NOTE | 2022-01-19 19:33 | RAD REPORT ---
EXAM DESCRIPTION: RAD - Chest Single View - 01/19/2022 7:18 pm CLINICAL HISTORY: shortness of breath COMPARISON: Portable 12/28/2021, portable 12/27/2021 TECHNIQUE: AP portable chest image was obtained 01/19/2022 7:18 pm . FINDINGS: No peripheral mass or consolidation. Interstitial markings are mildly prominent but less p ronounced than seen on prior imaging. No vascular engorgement or cardiomegaly. Defibrillator remains in place. No measurable pleural effusion and no pneumothorax. No acute bony abnormality seen. No acut e aortic findings suspected. IMPRESSION: No acute cardiopulmonary process. No significant failure or volume overload. Heart, vasculature and lung markings are all less prominent than comparison imaging.
[2022-01-19 19:38] LABS: Absolute Lymphocytes (CBC) 0.2 K/uL (0.7-4.9); Hematocrit 38.5 % (39.6-49.0); Lymphocytes % 3.3 % (15.3-44.8); MPV 7.8 fL (7.6-11.3); RBC Red Blood Cell Count 4.38 M/uL (4.33-5.43)
[2022-01-19 19:39] LABS: Protime INR 1.08
[2022-01-19 20:01] LABS: Albumin 3.2 g/dL (3.4-5.0); Bilirubin Direct 4.6 mg/dL (0-0.2); Bilirubin Total 5.6 mg/dL (0.2-1.0); Magnesium 1.8 mg/dL (1.8-2.4); Protein, Total 6.7 g/dL (6.4-8.2); Troponin High Sensitivity 61.4 pg/mL (<58.9)
[2022-01-19 20:06] LABS: Potassium 2.8 mmol/L (3.5-5.1)
[2022-01-19 20:10] LABS: SARS-COV-2 RT PCR NEGATIVE (NEGATIVE)
--- NOTE | 2022-01-19 20:54 | RAD REPORT ---
EXAM DESCRIPTION: US - Abdomen Exam Limited - 01/19/2022 8:49 pm CLINICAL HISTORY: ABD PAIN COMPARISON: Renal Ultrasound-Complete dated 11/28/2021 FINDINGS: No gallstones, sludge or other abnormalities within the gallbladder lumen. There is no wal l thickening or pericholecystic fluid. No common duct stone or biliary tree dilatation identified. IMPRESSION: Normal gallbladder and biliary tree ultrasound.
--- NOTE | 2022-01-19 22:12 | EDPHYS ---
Physician Documentation [facility] Name: Jimbo Cat Age: 81 yrs Sex: Male : 1940 Arrival Date: 01/19/2022 Time: 18:39 Bed 4 Private MD: ED Physician Terry Sanderson HPI: 01/19 18:53 This 81 yrs old Male presents to ER via EMS with complaints of Shortness Of Breath. jmm 18:53 The patient has shortness of breath at rest. Onset: The symptoms/episode began/occurred jmm gradually, 2 week(s) ago. Duration: The symptoms are continuous, and are steadily getting worse. The patient's shortness of breath is aggravated by nothing, is alleviated by nothing. Associated signs and symptoms: Pertinent positives: shortness of breath. The patient has not experienced similar symptoms in the past. Patient complains of progessively worsening shortness of breath over the past 2 weeks. Patient has some sob, denies chest pain. Denies abdominal pain. Historical: - Allergies: 18:50 No Known Allergies; ss - PMHx: 18:50 Congestive heart failure; CVA; diabetes mellitus; Myocardial infarction; ss - PSHx: 18:50 Appendectomy; Pacemaker/Defibrillator; ss - Immunization history:: Adult Immunizations unknown. - Social history:: Smoking status: Patient denies any tobacco usage or history of. ROS: 18:53 Cardiovascular: Negative for chest pain, palpitations, and edema. jmm 18:53 Constitutional: Positive for malaise. 18:53 Respiratory: Positive for shortness of breath. 18:53 Abdomen/GI: Negative for nausea and vomiting, diarrhea. 18:53 All other systems are negative. Exam: 18:53 Constitutional: This is a well developed, well nourished patient who is awake, alert, jmm and in no acute distress. Head/Face: atraumatic. 18:53 ENT: Moist Mucus Membranes Neck: Trachea midline, Supple Chest/axilla: Normal chest wall appearance and motion. Cardiovascular: Regular rate and rhythm. No edema appreciated Respiratory: Normal respirations, no respiratory distress appreciated Abdomen/GI: Non distended, soft Back: Normal ROM Skin: General appearance color normal MS/ Extremity: Moves all extremities, no obvious deformities appreciated, no edema noted to the lower extremities Neuro: Awake and alert Psych: Behavior is normal, Mood is normal, Patient is cooperative and pleasant 18:53 Eyes: Extraocular movements: intact throughout, Sclera: icterus, is present. Vital Signs: 18:46 BP 138 / 71; Pulse 60; Resp 19; Temp 98.1(O); Pulse Ox 100% on R/A; Weight 58.97 kg; ss Height 5 ft. 7 in. (170.18 cm); Pain 0/10; 19:27 BP 119 / 62; Pulse 60; Resp 17 S; Pulse Ox 100% on R/A; lg3 21:17 BP 145 / 75; Pulse 61; Resp 17; Pulse Ox 100% on R/A; ll3 22:00 BP 158 / 80; Pulse 60; Resp 17; Pulse Ox 100% on R/A; ll3 23:00 BP 170 / 90; Pulse 65; Resp 16; Pulse Ox 100% on R/A; ll3 18:46 Body Mass Index 20.36 (58.97 kg, 170.18 cm) ss MDM: 19:02 Patient medically screened. [facility] 22:08 Data reviewed: vital signs, nurses notes. Counseling: I had a detailed discussion with [facility] the patient and/or guardian regarding: the historical points, exam findings, and any diagnostic results supporting the discharge/admit diagnosis, lab results, radiology results, the need to transfer to another facility. ED course: Dr. Sanderson discussed the patient with hepatology and internal medicine whom accepted the patient for admission. . 01/19 18:53 Order name: Basic Metabolic Panel; Complete Time: 20:09 [facility] 01/19 18:53 Order name: CBC with Diff; Complete Time: 19:51 [facility] 01/19 18:53 Order name: LFT's; Complete Time: 20:09 [facility] 01/19 18:53 Order name: Magnesium; Complete Time: 20:09 [facility] 01/19 18:53 Order name: NT PRO-BNP; Complete Time: 20:09 [facility] 01/19 18:53 Order name: PT-INR; Complete Time: 19:51 [facility] 01/19 18:53 Order name: Troponin HS; Complete Time: 20:09 [facility] 01/19 18:53 Order name: XRAY Chest (1 view); Complete Time: 19:34 [facility] 01/19 18:53 Order name: EKG; Complete Time: 18:53 [facility] 01/19 18:53 Order name: Cardiac monitoring; Complete Time: 19:18 [facility] 01/19 18:54 Order name: COVID-19/FLU A+B (Document "Date of Onset" if Symptomatic); Complete Time: [facility] 20:12 01/19 20:10 Order name: US Abdomen Limited; Complete Time: 20:56 [facility] 01/19 21:41 Order name: AMMONIA; Complete Time: 23:45 [facility] 01/19 21:41 Order name: Hepatitis Panel [facility] 01/19 18:53 Order name: EKG - Nurse/Tech; Complete Time: 19:18 [facility] 01/19 18:53 Order name: IV Saline Lock; Complete Time: 19:23 [facility] 01/19 18:53 Order name: Labs collected and sent; Complete Time: 19:23 [facility] 01/19 18:53 Order name: O2 Per Protocol; Complete Time: 19:18 [facility] 01/19 18:53 Order name: O2 Sat Monitoring; Complete Time: 19:18 [facility] 01/19 20:01 Order name: Urine Dipstick-Ancillary (obtain specimen) [facility] Administered Medications: No medications were administered Disposition Summary: 01/19/22 22:12 Transfer Ordered Transfer Location: [facility] Reason: Higher level of care [facility] Condition: Stable jm Problem: new jmm Symptoms: are unchanged jm Accepting Physician: Dr. Angel (01/20/22 00:19) ll3 Diagnosis - Liver Failure jmm - Hyponatremia jmm - Hypokalemia jmm - Heart Failure jm Forms: - Medication Reconciliation Form jmm - SBAR form [facility] Signatures: Dispatcher [employer] EDMS Landry Yeager PA PA jmm Smirch, Shelby RN RN ss Britta Franklin RN RN lg3 Brigido Rothman, RN RN ll3 Corrections: (The following items were deleted from the chart) 18:51 18:50 PSHx: defibrillator; [facility] 01/20 00:19 01/19 22:12 Dr. Stanley mackay ll3
--- NOTE | 2022-01-19 22:12 | ER ---
Nurse's Notes [facility] Name: Jimbo Cat Age: 81 yrs Sex: Male : 1940 Arrival Date: 01/19/2022 Time: 18:39 Bed 4 Private MD: Diagnosis: Liver Failure;Hyponatremia;Hypokalemia;Heart Failure Presentation: 01/19 18:46 Chief complaint: Patient states: shortness of breath and generalized weakness that ss began over a week ago. Denies fever/ cough. Pt reports he wears home O2, but upon EMS arrival patient was on RA with 100% O2. Coronavirus screen: Client denies travel out of the [place] in the last 14 days. Ebola Screen: Patient denies exposure to infectious person. Patient denies travel to an Ebola-affected area in the 21 days before illness onset. Initial Sepsis Screen: Does the patient meet any 2 criteria? No. Patient's initial sepsis screen is negative. Does the patient have a suspected source of infection? No. Patient's initial sepsis screen is negative. Risk Assessment: Do you want to hurt yourself or someone else? Patient reports no desire to harm self or others. Onset of symptoms is unknown. 18:46 Method Of Arrival: EMS: [facility] 18:46 Acuity: SYDNIE 3 ss Triage Assessment: 01/20 00:00 Respiratory: Onset: The symptoms/episode began/occurred 1 week ago. lg3 00:19 General:. Respiratory: Respiratory: Reports. ll3 Historical: - Allergies: 01/19 18:50 No Known Allergies; ss - PMHx: 18:50 Congestive heart failure; CVA; diabetes mellitus; Myocardial infarction; ss - PSHx: 18:50 Appendectomy; Pacemaker/Defibrillator; ss - Immunization history:: Adult Immunizations unknown. - Social history:: Smoking status: Patient denies any tobacco usage or history of. Screenin:24 Abuse screen: Denies threats or abuse. Denies injuries from another. Nutritional lg3 screening: No deficits noted. Tuberculosis screening: No symptoms or risk factors identified. Fall Risk Ambulatory Aid- Crutches/Cane/Walker (15 pts). Assessment: 19:24 General: Appears in no apparent distress. comfortable, Behavior is calm, cooperative. lg3 Pain: Denies pain. Neuro: No deficits noted. James Agitation-Sedation Scale (RASS): 0 - Alert and Calm Level of Consciousness is awake, alert, obeys commands, Oriented to person, place, time, situation. Cardiovascular: Reports shortness of breath, Rhythm is sinus rhythm Parent/caregiver reports patient has had pacemaker/defib in place. Respiratory: Airway is patent Trachea midline Respiratory effort is even, unlabored, Respiratory pattern is regular, symmetrical, Breath sounds are clear bilaterally. GI: No deficits noted. No signs and/or symptoms were reported involving the gastrointestinal system. : No deficits noted. No signs and/or symptoms were reported regarding the genitourinary system. EENT: No deficits noted. No signs and/or symptoms were reported regarding the EENT system. Derm: No deficits noted. No signs and/or symptoms reported regarding the dermatologic system. Skin is intact, is thin, Skin is dry, Skin is pink, warm \\T\\ dry. Musculoskeletal: Circulation, motion, and sensation intact. Capillary refill < 3 seconds, Range of motion: intact in all extremities, Reports weakness in generalized. 20:04 Reassessment: potassium 2.8 ALT 805 total Bili 5.6 Troponin 61.4. vc1 21:01 Reassessment: Patient appears in no apparent distress at this time. No changes from lg3 previously documented assessment. Patient and/or family updated on plan of care and expected duration. Pain level reassessed. Patient is alert, oriented x 3, equal unlabored respirations, skin warm/dry/pink. 23:04 General: spoke with receiving facility, per Dr. Angel, do not transport pt until lg3 ammonia level results are back and called to receiving facility. Vital Signs: 18:46 BP 138 / 71; Pulse 60; Resp 19; Temp 98.1(O); Pulse Ox 100% on R/A; Weight 58.97 kg; ss Height 5 ft. 7 in. (170.18 cm); Pain 0/10; 19:27 BP 119 / 62; Pulse 60; Resp 17 S; Pulse Ox 100% on R/A; lg3 21:17 BP 145 / 75; Pulse 61; Resp 17; Pulse Ox 100% on R/A; ll3 22:00 BP 158 / 80; Pulse 60; Resp 17; Pulse Ox 100% on R/A; ll3 23:00 BP 170 / 90; Pulse 65; Resp 16; Pulse Ox 100% on R/A; ll3 18:46 Body Mass Index 20.36 (58.97 kg, 170.18 cm) ED Course: 18:39 Patient arrived in ED. ph 18:50 Triage completed. ss 18:50 Arm band placed on right wrist. ss 18:52 Landry Yeager PA is PHCP. m 18:52 Terry Sanderson MD is Attending Physician. [facility] 19:15 Britta Franklin, RN is Primary Nurse. lg3 19:18 X-ray completed. Portable x-ray completed in exam room. md1 19:20 XRAY Chest (1 view) In Process Unspecified. EDMS 19:23 Basic Metabolic Panel Sent. lg3 19:23 CBC with Diff Sent. lg3 19:23 LFT's Sent. lg3 19:23 Magnesium Sent. lg3 19:24 Patient has correct armband on for positive identification. Bed in low position. Call lg3 light in reach. Side rails up X 1. Client placed on continuous cardiac and pulse oximetry monitoring. NIBP monitoring applied. monitor and storage bin tender on. Door closed. Noise minimized. Warm blanket given. 19:24 NT PRO-BNP Sent. lg3 19:24 PT-INR Sent. lg3 19:24 Troponin HS Sent. lg3 19:24 COVID-19/FLU A+B (Document "Date of Onset" if Symptomatic) Sent. lg3 19:24 Inserted saline lock: 20 gauge in right antecubital area, using aseptic technique. lg3 Blood collected. 20:51 US Abdomen Limited In Process Unspecified. EDMS 21:14 initiated a transfer with Roberta Ramos from [facility]. mw2 21:52 Hepatitis Panel Sent. lg3 21:52 AMMONIA Sent. lg3 22:17 administrative approval given by Roberta Raoms/ patient has been accepted to [address]/ Dr. Angel accepted the patient in transfer/ report to be called to [phone]. 23:59 No provider procedures requiring assistance completed. Patient transferred, IV remains lg3 in place. intact, No redness/swelling at site. Administered Medications: No medications were administered Outcome: 22:12 ER care complete, transfer ordered by . [facility] 23:59 Transferred by ground [facility] to [facility]. lg3 23:59 Condition: stable 23:59 Instructed on the need for transfer. 01/20 00:19 Patient left the ED. ll3 Signatures: Dispatcher [employer] EDMS Landry Yeager PA PA jmm Smirch, Shelby RN RN Yandy Bean RN RN Samantha Art 2 Dayana Rosen md1 Britta Franklin RN RN lg3 Brigido Rohtman RN RN 3 Shani Mendez RN RN vc1 Corrections: (The following items were deleted from the chart) 01/19 18:51 18:50 PSHx: defibrillator; [facility] 19:19 19:18 X-ray completed. Portable x-ray completed in exam room. [facility]
[2022-01-20 02:12] VITALS: TEMP 98.1; O2SAT 100
[2022-01-20 02:22] VITALS: BP 170/90
--- NOTE | 2022-01-20 12:54 | EKG ---
Test Date: 2022-01-19 Test Time: 19:23:25 Systems Eng: MEASUREMENT RESULTS: Intervals: Rate: 60 NH: 158 QRSD: 164 QT: 512 QTc: 512 Hooper: P: NH: 158 QRS: -80 T: 25 INTERPRETIVE STATEMENTS: Electronic atrial pacemaker Left axis deviation Left ventricular hypertrophy with QRS widening Inferior infarct, age undetermined Anterolateral infarct, age undetermined Abnormal ECG Compared to ECG 12/27/2021 01:26:33 Left-axis deviation now present Left ventricular hypertrophy now present Myocardial infarct finding now present AV dual-paced complex(es) or rhythm no longer present Electronically Signed On 01-20-22 12:52:00 CDT by Max Pro
[2022-01-24 11:52] LABS: HBsAG Nonreactive (Nonreactive)
== END 2022-01-20 00:19 | disposition short-term general hospital (02) ==
LOC: ER 18:37
DX: K72.90 Hepatic failure, unspecified without coma (principal); E87.1 Hypo-osmolality and hyponatremia; E87.6 Hypokalemia; I50.9 Heart failure, unspecified; E11.9 Type 2 diabetes mellitus without complications; Z86.73 Personal history of transient ischemic attack (TIA), and cerebral infarction without residual deficits; Z20.822 Contact with and (suspected) exposure to COVID-19; Z95.810 Presence of automatic (implantable) cardiac defibrillator
CPT/HCPCS: 93005; 85025; 80048; 36415; 82140; 83735; 85610; 80076; 84484; 83880; 0240U; 80074; 71045; 76705; 99285

== ENCOUNTER 2022-01-27 20:49 | Inpatient (IN) | payer OTHER ==
--- OUTSIDE RECORDS SUMMARY | 2022-01-27 20:55 | XMS REPORT | Continuity of Care Document ---
:1940 Author Organization [facility] t Address [address] [place] [address] Care Team Providers Name Role Phone JOHNSON COLE Primary Care Physician Unavailable Herve EVANS Attending Clinician Unavailable JASVIR Attending Clinician Unavailable HOLLIE DARNELL Attending Clinician Unavailable Eryn REGALADO, A Attending Clinician Unavailable Abena VICTOR, S Attending Clinician Wily VICTOR Attending Clinician Herve EVANS Admitting Clinician Unavailable CORDELL SMITH Admitting Clinician Unavailable Wily VICTOR Admitting Clinician Payers Payer Name Policy Type Policy Number Effective Date Expiration Date Lauryn little UNITED MEDICARE [id number] 2021 O 00:00:00 Problems Condition Condition Condition Status Onset Resolution Last Treating Co mments Source Name Details Category Date Date Treatment Clinician Date 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-ca 9-14 it y of nellie ballard 00:00: [place] malnutriti malnutriti 00 Me dical on on Branch 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 9-12 ity of kidney kidney 00:00: [place] disease disease 00 Medical Branch Dyspnea Dyspnea Disease Active Univers 9-11 ity of 00:00: [place] [facility] Pneumonia Pneumonia Disease Active Uni vers due to due to 9-11 [place]y of infectious infectious [place] organism organism 00 Medica l Branch Elevated Elevated Disease Active Unive rs troponin I troponin I 9-11 it y of level level 00:00: [place] [facility] Acute on Acute on Disease Active Unive rs chronic chronic 9-10 [place] of diastolic diastolic [place] congestive congestive 00 Me dical heart heart Branch failure failure Chest pain Chest pain Disease Active U nivers 7-07 ity of 00:00: [place] [facility] Obesity Obesity Disease Active Overview: Univ ers 4-17 ICD10 ity of 00:00: Diagnosis Term 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 Branch Utility 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 U nivers unspecifie unspecifie 7-09 it y of d type d type 00:00: [place] diabetes diabetes Medica l mellitus mellitus 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, ions, uncontroll uncontroll ed(250.52) ed(250.52) HLD HLD Disease Active Overview: Univer s (hyperlipi (hyperlipi 3-09 ICD10 it y of demia) demia) 00:00: Diagnosis [place] Term 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 Branch Utility Essential Essential Disease Active Uni [...] No Known DA Active U [facility] 1-16 [place] 00:00: [address] No Known DA Active U [facility]ergie 05-20 [place] 00:00: [address] NO KNOWN Drug Active Univers ALLERGIE Class ity of S [facility] NO KNOWN Allergy Active [facility] Social History Social Habit Start Date Stop Date Quantity Comments Source Tobacco Comment quit 30 years Univer sity of ago [facility] Alcohol Comment 3 drinks (vodka) Uni versity of nightly [facility] Sex Assigned At Universit y of [facility] Exposure to Unable to assess Univers ity of SARS-CoV-2 [facility] (event) [place] Tobacco use and 2020-05-30 2020-05-30 Never used Universit y of exposure 00:00:00 00:00:00 [facility] Alcohol intake 2020-05-30 2020-05-30 Current drinker Unive rsity of 00:00:00 00:00:[address] [facility] (finding) [place] Smoking Status Start Date Stop Date Source Never smoker [facility] Medications Ordered Filled Start Stop Current Ordering Indication Dosage Frequency Signature Comments Components Source Medication Medication Date Date Medication? Clinician (SIG) Name Name ASPIRIN 81 0 Yes once daily U nivers MG ORAL 9-16 ity of CHEW 22:57: [address] magnesium 2019-0 Yes 400mg Take 400 Uni vers oxide 9-16 mg by ity of (MAG-OX 22:57: mouth [place] 400) 400 mg 45 daily. Medica l tablet Branch Cyanocobala Yes Place Unive rs min 9-16 under the ity of (VITAMIN 22:57: tongue. [place] B-12) 2,500 45 Medical mcg Subl Branch CALCIUM 2019-[address] [facility] CARBONATE/V 9-16 mouth. ity of ITAMIN D3 22:57: [place] (VITAMIN 45 Medical D-3 ORAL) Branch MULTIVITAMI 0 Yes Take by Un audra N 9-16 mouth. ity of W-MINERALS/ 22:57: [place] LUTEIN 45 Medical (CENTRUM Branch SILVER ORAL) ASPIRIN 81 2019-0 Yes once daily U nivers MG ORAL 9-16 ity of CHEW 22:57: [address] Branch magnesium 2020-0 Yes 400mg Take 400 Uni vers oxide 9-16 mg by ity of (MAG-OX 22:57: mouth [place] 400) 400 mg 45 daily. Medica l tablet Branch Cyanocobala Yes Place Unive rs min 06-04 under the ity of (VITAMIN 22:57: tongue. [place] B-12) 2,500 45 Medical mcg Subl Branch CALCIUM Yes Take by Univer s CARBONATE/V 16 mouth. ity of ITAMIN D3 22:57: [place] (VITAMIN 45 Medical D-3 ORAL) Branch MULTIVITAMI Yes Take by Un audra N -16 mouth. ity of W-MINERALS/ 22:57: [place] LUTEIN 45 Medical (CENTRUM Branch SILVER ORAL) primidone 2020- No 50mg Take 50 mg U nivers (MYSOLINE) 06-04 by mouth ity of 50 mg 21:06: 00:00 every 12 [place] tablet 25 :00 (twelve) Medical hours. Branch FERROUS 2020- No 65mg Take 65 mg Uni vers FUMARATE 06-04 by mouth ity of (IRON ORAL) 21:06: 00:00 daily. [place] as 25 :00 Medical Branch amlodipine- 0 2020- No 1{tbl} Take 1 U nivers valsartan 06-04 tablet by ity of (EXFORGE) 21:06: 00:00 mouth [place] 10-320 mg 25 :00 daily. Medical per tablet Branch atorvastati Yes [id number] 20mg Take 1 Univers n 20 mg 9-16 tablet by ity of tablet 00:00: mouth at [place] 00 bedtime. Medical Branch primidone 2019-0 Yes [id number] 50mg Take 1 U nivers 50 mg 9-16 tablet by ity of tablet 00:00: mouth [place] 00 every 12 Medical (twelve) Branch hours. metoprolol 2019-0 Yes [id number] 25mg Take 1 Univers tartrate 25 9-16 tablet by ity of mg tablet 00:00: mouth 2 [place] 00 (two) Medical times Branch daily. sacubitriL- 2020-0 Yes [id number] 1{tbl} Take 1 Univers valsartan 9-16 tablet by ity o f 97-103 mg 00:00: mouth 2 [place] tablet 00 (two) Medical times Branch daily. levoFLOXaci 2019-0 Yes [id number] 500mg Take 1 Univers n 500 mg 9-16 tablet by ity of tablet 00:00: mouth [place] 00 every 24 Medical (twenty-fo Branch ur) hours. acidophilus 2020-0 Yes [id number] 1g Take 1 Univers 100 million 9-16 tablet by ity of cell tablet 00:00: mouth 2 [place] as 00 (two) Medical times Branch daily. atorvastati 2020-0 Yes [id number] 20mg Take 1 Univers n 20 mg 9-16 tablet by ity of tablet 00:00: mouth at [place] 00 bedtime. Medical Branch primidone 2020-0 Yes [id number] 50mg Take 1 U nivers 50 mg 9-16 tablet by ity of tablet 00:00: mouth [place] 00 every 12 Medical (twelve) Branch hours. metoprolol 2020-0 Yes [id number] 25mg Take 1 Univers tartrate 25 9-16 tablet by ity of mg tablet 00:00: mouth 2 [place] 00 (two) Medical times Branch daily. sacubitriL- 2020-0 Yes [id number] 1{tbl} Take 1 Univers valsartan 9-16 tablet by ity o f 97-103 mg 00:00: mouth 2 [place] tablet 00 (two) Medical times Branch daily. levoFLOXaci 2020-0 Yes [id number] 500mg Take 1 Univers n 500 mg 9-16 tablet by ity of tablet 00:00: mouth [place] 00 every 24 Medical (twenty-fo Branch ur) hours. acidophilus 2020-0 Yes [id number] 1g Take 1 Univers 100 million 9-16 tablet by ity of cell tablet 00:00: mouth 2 [place] 00 (two) Medical times Branch daily. KCL 2020-0 2020- No 20meq 20 mEq, Univers (KLOR-CON 06-03-15 Oral, ONCE ity of M20) tablet 02:30: 01:54 NOW, 1 [place] 20 mEq 00 :00 dose, [facility] 06/02/20 at Branch 2130, Routine levoFLOXaci 2020-0 Yes 750mg 750 mg, Un audra n 9-14 Oral, ity of (LEVAQUIN) 16:00: Q48H, [place] tablet 750 00 First dose Med ical mg on [facility] Branch 06/02/20 at 1100, Until Discontinu ed, LICO
Re ason for Anti-Infec tive: Empiric Therapy for Suspected Infection< br>Empiric Therapy Site: Respirator y
Durat ion of therapy: 72 hours Polyethylen 2019- 2020- No 17g 17 g, Univ ers e Glycol 06-02 Oral, ity of 3350 14:00: 13:59 DAILY, 2 [place] (MIRALAX) 00 :00 doses, Medical powder 17 g First dose Br anch on Tue06/02/20 at 0900, Last dose on Tue06/03/20 at 0900, Routine sennosides 2019- Yes 8.6mg 8.6 mg, Uni vers (SENOKOT) 06-02 Oral, BID, ity of tablet 8.6 03:15: First dose [place] mg 00 on [facility] 06/01/20 at Branch 2215, Until Discontinu ed, Routine bisacodyL 2019- No 10mg 10 mg, Unive rs (DULCOLAX) 06-02 Rectal, ity o f suppository 03:15: 01:59 QHS, 3 [place] 10 mg 00 :00 doses, Medical First dose Branch on [place] 06/01/20 at 2215, Last dose on Tue06/03/20 at 2100, Routine epoetin 2019- 2020- No 4000U 4,000 Univers renetta-epbx 06-01 Units, ity of (RETACRIT) 19:45: 19:59 Subcutaneo [place] injection 00 :00 us, ONCE, Medic al 4,000 Units 1 dose, Branc h [place] 06/01/20 at 1445, Routine
bakery team member approving Restricted medication : AKILAH ANDRE ANGELES furosemide 2019- No 40mg 40 mg, IV U nivers (LASIX) 06-01 Push, ity of injection 14:00: 17:48 DAILY, [place] 40 mg 00 :15 First dose Medical (after Branch last modificati on) on [place] 06/01/20 at 0900, Until Discontinu ed, LICO ferrous 2019- 2020- No 325mg 325 mg, Unive rs sulfate 06-01 Oral, BID ity of tablet 325 13:00: 01:14 MEALS, [place] mg 00 :51 First dose Medical on [place] Branch 9/13/20 at 0800, Until Discontinu ed, Routine haloperidol 2020-0 Yes 5mg 5 mg, Slow Univers lactate 06-01 IV Push, ity of (HALDOL) 01:16: QHSPRN, [place] injection 5 44 Starting Medi [place] mg [facility] 05/31/20 at 2016, Until Discontinu ed, Routine, insomnia, psychosis, agitation piperacilli 2020-0 2020- No 2.25g 2.25 g, IV Univers n-tazobacta 06-01 Piggyback, i ty of m (ZOSYN) 00:45: 14:59 Q6H ABX, [place] as 2.25 g/50 00 :52 First dose Medi [place]cca mL RTU on [facility] Branch 05/31/20 at 1945, Until Discontinu ed, 50 mL
Reas on for Anti-Infec tive: Documented Infection< br>Documen moshe Infection Site: Respirator y
Durat ion of Therapy: 10 days KCL 2020-0 2020- No 40meq 40 mEq, Univers (KLOR-CON 06-01 Oral, ity of M20) tablet 00:45: 01:23 ONCE, 1 [place] 40 mEq 00 :00 dose, [facility] Medical 05/31/20 at Branch 1945, Routine magnesium 2019-0 2020- No 2g 2 g, IV Univ ers sulfate in 06-01 Piggyback, it y of water 2 00:45: 01:23 ONCE, 1 [place] gram/50 mL 00 :00 dose, [facility] Medi mecca (4 %) 05/31/20 at [place] infusion 2 1944, g Routine sodium 2019-0 Yes 125mg 125 mg, IV Univ ers ferric 05-31 Piggyback, ity of gluconate 14:00: DAILY, [place] (FERRLECIT) 00 First dose Me dical 125 mg in on [facility] NaCl 0.9% 05/31/20 at (NS) 100 mL 0900, IV Until piggyback Discontinu ed, 100 mL
Facu lty member approving Restricted medication : HELENA KUMAR sulfur 2020-0 2020- No 5mL 5 mL, Univers hexafluorid 05-30 Intravenou i ty of e microsphr 19:00: 16:30 s, ONCE, 1 [place] (LUMASON) 00 :00 dose, Fri Medic al injection 5 05/30/20 at Br anch mL 1400, Routine
bakery team member approving Restricted medication : VENESSA SHAH vancomycin 2020-0 2020- No 15mg/kg 1,000 mg Univers (VANCOCIN) 05-3014 (rounded ity of 1,000 mg in 17:15: 14:59 from 990 [place] NaCl 0.9% 00 :52 mg = 15 Medical (NS) 250 mL mg/kg ?66 Bra count includes the [facility] VIAL-MATE kg), IV IV Piggyback, piggyback [...] Sliding 2020-0 Yes Subcutaneo Univ ers Scale 9-11 us, TID ity of Insulin - 13:00: MEALS+HS, [place] as Aspart 00 First dose Medical (NOVOLOG) + on Tue Branch Fsbg 05/30/20 at Testing 0800, Until Discontinu ed, Routine sacubitriL- 2020-0 Yes 1{tbl} 1 tablet, Univers valsartan -11 Oral, BID, ity of (ENTRESTO) 13:00: First dose [place] 97-103 mg 00 on Tue Medical tablet 1 05/30/[address] [facility] h tablet 0800, Until Discontinu ed, Routine
bakery team member approving Restricted medication : MEGADC heparin 2020-0 Yes 5000U 5,000 Univers (porcine) -11 Units, ity of injection 11:00: Subcutaneo [place] 5,000 Units 00 us, Q8H, Medi [place]cca First dose Branch on Tue05/30/20 at 0600, Until Discontinu ed, Routine furosemide 2019-0 2020- No 40mg 40 mg, IV U nivers (LASIX) 05-3012 Push, Q8H, ity o f injection 11:00: 14:40 First dose [place] 40 mg 00 :52 (after Medical last Branch reorder) on Tue05/30/20 at 0600, Until Discontinu ed, LICO levoFLOXaci 2020-0 2020- No 750mg 750 mg, IV Univers n in D5W 05-3014 Piggyback, ity of (LEVAQUIN) 07:00: 15:03 Q24H [...] ity of (vitamin C) 06:15: First dose [place] (VITAMIN C) 00 on Tue Medica l tablet 500 05/30/20 at [facility] mg 0115, Until Discontinu ed, Routine cholecalcif 2020-0 Yes 1000U 1,000 Univ ers shelley 9-11 Units, ity of (vitamin 06:15: Oral, BID, [place] as D3) tablet 00 First dose Med ical 1,000 Units on Tue Branch 05/30/20 at 0115, Until Discontinu ed, Routine zinc 2020-0 Yes 220mg 220 mg, Univers sulfate 9-11 Oral, BID, ity of (ORAZINC) 06:15: First dose [place] capsule 220 00 on Tue Medica l mg 05/30/20 at Branch 0115, Until Discontinu ed, Routine acetaminoph 2020-0 Yes 650mg 650 mg, Un audra en -11 Oral, ity of (TYLENOL) 06:01: Q6HPRN [place] tablet 650 34 Starting Medic al mg Tue Branch 05/30/20 at 0101, Until Discontinu ed, Routine, Temp > 38.5 C ondansetron 2020-0 Yes 4mg 4 mg, Slow Univers (ZOFRAN 9-11 IV Push, ity of (PF)) 06:01: Q6HPRN [place] injection 4 16 Starting Medi [place]cca mg Tue Branch 05/30/20 at 0101, Until Discontinu ed, [...] 00 on Tue Medical 05/30/20 at Branch 010, Until Discontinu ed, Routine metoprolol 2020-0 Yes [...] First dose [place] mg 00 on Tue Medical 05/30/20 at Branch 0100, Until Discontinu ed, Routine aspirin 2020-0 Yes 81mg 81 mg, Univers chewable 05-30 Oral, ity of tablet 81 06:00: DAILY, [place] mg 00 First dose Medical on Tue Branch 05/30/20 at 0100, Until Discontinu ed, Routine nitroglycer 2020-0 2020- No 1[in_us 1 Inch, Univers in (NITROL) 05-30 ] Transderma i ty of 2 % 03:15: 03:47 l (Apply [place] ointment 1 00 :00 To Skin), Medi mecca Inch ONCE, 1 Branch dose, [place] 05/29/20 at 2215, LICO furosemide 2019- No 60mg 60 mg, IV U nivers (LASIX) 05-30 Push, ity of injection 03:15: 03:39 ONCE, 1 [place] 60 mg 00 :00 dose, [facility] Medical 05/29/20 at Branch 2215, LICO albuterol 2020- No 8{puff} 8 Puff, U nivers (VENTOLIN) 05-30 Inhalation it y of inhaler 8 01:45: 01:04 , ONCE, 1 [place] Puff 00 :00 dose, [facility] 05/29/20 at Branch 2045, LICO
Is this order for a patient with suspected or confirmed COVID-19 infection? Yes atorvastati 2019- No [id number] 20mg Take 1 Univers n (LIPITOR) 01-27 tablet by it y of 20 mg 00:00: 00:00 mouth at [place] tablet 00 :00 bedtime. Medical Branch Insulin 2020- No [id number] 8U inject 8 U nivers Glargine 01-27 [...] directed ity of (ACCU-CHEK 00:00: [place] WILLIAM) [place] [id number] Medical Branch Blood-Gluco Yes Use as [facility] ers se Meter 4-07 directed ity of (ACCU-CHEK 00:00: [place] WILLIAM) [place] [id number] Medical Branch EXFORGE 2020- No TAKE 1 Univers 10-320 mg 01-03 TABLET BY ity of per tablet 00:00: 00:00 MOUTH [place] 00 :00 EVERY DAY Medical Branch Vital Signs Vital Name Observation Time Observation Value Comments Source WEIGHT 2022-01-24 06:00:00 62.642 kg WEIGHT 2022-01-23 06:00:00 62.415 kg WEIGHT 2022-01-22 06:02:00 61.1 kg WEIGHT 2022-01-21 06:03:00 60 kg HEIGHT 2022-01-20 02:17:00 170.2 cm WEIGHT 2022-01-20 01:38:00 62.551 kg WEIGHT 2022-01-24 06:00:00 62.642 kg WEIGHT 2022-01-23 06:00:00 62.415 kg WEIGHT 2022-01-22 06:02:00 61.1 kg WEIGHT 2022-01-21 06:03:00 60 kg HEIGHT 2022-01-20 02:17:00 170.2 cm WEIGHT 2022-01-20 01:38:00 62.551 kg Systolic blood 2020-06-04 20:55:00 156 mm[Hg] Univer sity of pressure [facility] Diastolic blood 2020-06-04 20:55:00 85 mm[Hg] Unive rsity [facility] Respiratory rate 2020-06-04 20:55:00 18 /min [facility] Oxygen saturation in 2020-06-04 20:55:00 92 /min [facility] blood by [facility] Pulse oximetry Branch Heart rate 2020-06-04 20:00:00 67 /min [facility] Body temperature 2020-06-04 20:00:[address] [facility] Body weight 2020-06-03 06:15:00 65.998 kg [facility] BMI 2020-06-03 06:15:00 24.21 kg/m2 [facility] Body height 2020-05-30 06:15:00 165.1 cm [facility] Systolic blood 2020-06-04 20:55:00 156 mm[Hg] Univer sity of pressure [facility] Diastolic blood 2020-06-04 20:55:00 85 mm[Hg] Unive rsity of [email or web address] Respiratory rate 2020-06-04 20:55:00 18 /min [facility] Oxygen saturation in 2020-06-04 20:55:00 92 /min [facility] Arterial blood by [facility] Pulse oximetry Branch Heart rate 2020-06-04 20:00:00 67 /min [facility] Body temperature 2020-06-04 20:00:00 36.06 Razia [facility] Body weight 2020-06-03 06:15:00 65.998 kg [facility] BMI 2020-06-03 06:15:00 24.21 kg/m2 [facility] Body height 2020-05-30 06:15:00 165.1 cm [facility] Procedures Procedure Date / Time Performing Clinician Source Performed POCT GLUCOSE (AUTOMATED) 2020-06-04 21:56:00 [facility]OM[facility]) 2020-06-04 16:48:00 Arben Julien Uni [facility] XR CHEST 1 VW 2020-06-04 13:56:16 [facility] POCT GLUCOSE (AUTOMATED) 2020-06-04 12:44:00 [facility] PO[facility]SE (AUTOMATED) 2020-06-04 01:32:00 [facility] PO[facility]SE (AUTOMATED) 2020-06-03 21:46:00 [facility] PO[facility]SE (AUTOMATED) 2020-06-03 16:54:00 [facility] PO[facility] (AUTOMATED) 2020-06-03 12:50:00 [facility] COMP. METABOLIC PANEL 2020-06-03 11:37:00 Sukhwinder Hughes [facility] ([id number]) [facility] CBC WITH DIFF 2020-06-03 11:36:00 Sukhwinder Hughes [facility] POCT GLUCOSE (AUTOMATED) 2020-06-03 01:18:00 [facility] POCT GLUCOSE (AUTOMATED) 2020-06-02 21:22:00 [facility] [place] MODIFIED BARIUM 2020-06-02 19:00:00 Rufus Goodwin [facility] POCT GLUCOSE (AUTOMATED) 2020-06-02 16:59:00 [facility] PO[facility] GLU[facility]SE (AUTOMATED) 2020-06-02 13:26:00 Arben Julien [facility] MAGNESIUM 2020-06-02 10:40:00 Buddy [facility] COMP. METABOLIC PANEL 2020-06-02 10:40:00 Rufus Goodwin [facility] ([id number]) [facility] CBC WITH DIFF 2020-06-02 10:40:00 Arben Julien [facility] POCT GLUCOSE (AUTOMATED) 2020-06-01 21:51:[address] [facility] POCT GLUCOSE (AUTOMATED) 2020-06-01 17:00:[address] [facility] BLOOD CULTURE SCREEN 2020-06-01 15:42:00 Rufus Goodwin [facility] BLOOD CULTURE SCREEN 2020-06-01 15:29:00 Rufus Goodwin [facility] POCT GLUCOSE (AUTOMATED) 2020-06-01 13:18:00 [facility] MAGNESIUM 2020-06-01 10:14:00 Buddy [facility] COMP. METABOLIC PANEL 2020-06-01 [id number] ACUTE CARE VENOUS BLOOD 2020-06-01 10:14:00 Arben Julien [facility] GAS [facility] CBC WITH DIFF 2020-06-01 10:14:00 Wily hilda [facility] N-TERMINAL PRO-BNP 2020-06-01 10:14:00 [facility] POCT GLUCOSE (AUTOMATED) 2020-06-01 00:42:[address] [facility] POCT GLUCOSE (AUTOMATED) 2020-05-31 21:51:00 Arben Julien [facility] AMMONIA, PLASMA 2020-05-31 17:01:00 Buddy [facility] POCT GLUCOSE (AUTOMATED) 2020-05-31 16:59:[address] [facility] URIC ACID 2020-05-31 08:32:00 Wily [facility] MAGNESIUM 2020-05-31 08:32:00 Wily [facility] TROPONIN I 2020-05-31 08:32:00 Wily [facility] COMP. METABOLIC PANEL 2020-05-31 08:32:00 Arben Julien [facility] ([id number] CBC WITH DIFF 2020-05-31 08:32:00 Wily [facility] N-TERMINAL PRO-BNP 2020-05-31 08:32:00 [facility] POCT GLUCOSE (AUTOMATED) 2020-05-31 00:32:[address] [facility] POCT GLUCOSE (AUTOMATED) 2020-05-30 20:44:[address] [facility] POCT GLUCOSE (AUTOMATED) 2020-05-30 17:04:[address] [facility] TROPONIN I 2020-05-30 16:25:00 Arben Julien [facility] ECHO ROUTINE W/DOPPLER 2020-05-30 16:08:22 Arben Julien [facility] POCT GLUCOSE (AUTOMATED) 2020-05-30 13:56:00 Arben Julien [facility] CT THORAX WO CONTRAST 2020-05-30 10:26:42 Arben Juline [facility] SEDIMENTATION RATE 2020-05-30 09:51:00 Arben [facility]ien [facility] CBC WITH DIFF 2020-05-30 09:51:00 Wily [facility] URIC ACID 2020-05-30 08:34:00 Wily [facility] MAGNESIUM 2020-05-30 08:34:00 Wily [facility] CORTISOL AM 2020-05-30 08:34:00 Wily [facility] TROPONIN I 2020-05-30 08:34:00 Wily [facility] COMP. METABOLIC PANEL 2020-05-30 08:34:00 Arben Julien [facility] ([id number]) Medical [place] IRON PANEL 2020-05-30 08:34:00 Wily [facility] N-TERMINAL PRO-BNP 2020-05-30 08:34:00 Wily [facility] LEGIONELLA URINARY 2020-05-30 08:29:00 Wily hilda [facility] ANTIGEN TST [facility] SODIUM, URINE RANDOM 2020-05-30 08:28:00 Wily hilda [facility] PROTEIN CREAT RATIO 2020-05-30 08:28:00 Arben Julien [facility] URINE [facility] PNEUMOCOCCAL ANTIGEN 2020-05-30 08:27:00 Wily hilda [facility] OSMOLALITY URINE 2020-05-30 08:25:00 Wily [facility] UREA NITROGEN, URINE 2020-05-30 08:25:00 Wily hilda [facility] URINE CULTURE 2020-05-30 08:24:00 Wily [facility] OSMOLALITY SERUM 2020-05-30 07:08:00 Wily [facility] VITAMIN B12, LEVEL 2020-05-30 07:08:00 Wily [facility] FOLATE 2020-05-30 07:08:00 Wily hilda [facility] PROTHROMBIN TIME / INR 2020-05-30 07:08:[address] [facility] MYCOPLASMA PNEUMONIAE 2020-05-30 07:08:00 Arben Julien [facility] ANTIBODY, IGM [facility] VITAMIN D, 25-OH 2020-05-30 07:08:00 Arben Julien [facility] PROCALCITONIN 2020-05-30 07:08:00 Arben Julien [place] [facility] BLOOD CULTURE SCREEN 2020-05-30 07:07:00 Arben Julien [facility] BLOOD CULTURE WORKUP 2020-05-30 07:07:00 Arben Julien [facility] BLOOD CULTURE WORKUP 2020-05-30 07:07:00 Arben Julien [facility] GRAM POSITIVE BLOOD 2020-05-30 07:07:00 Arben Julien [facility] PATHOGENS DNA [facility] PROBE-AEROBIC RESPIRATORY PANEL BY PCR 2020-05-30 05:20:[address] [facility] COVID-19 (PCR MOLECULAR 2020-05-30 05:20:00 Arben Julien [facility] TESTING) [facility] Branch EXTERNAL PROVIDER 2020-05-30 05:01:00 Doctor Unassigned, No [facility] RECORDS Name [facility] URINALYSIS 2020-05-30 03:39:00 Trice Kraft [facility] XR CHEST 1 VW 2020-05-30 01:45:07 Trice Kraft [facility] CT HEAD WO CONTRAST 2020-05-30 01:34:53 Trice Kraft [facility] EKG-12 LEAD 2020-05-30 01:08:00 Trice Kraft [facility] [facility] AC ABG + LACTIC ACID 2020-05-30 01:06:00 Trice Kraft [facility] POCT GLUCOSE(AGE 2020-05-30 01:04:00 Trice Kraft [facility] >30DAYS) [facility] POCT GLUCOSE (AUTOMATED) 2020-05-30 01:03:00 [facility] 2020-05-30 00:59:00 Wily, [facility] CREATINE KINASE 2020-05-30 00:59:00 Wily hilda [facility] URIC ACID 2020-05-30 00:59:00 Wily [facility] MAGNESIUM 2020-05-30 00:59:00 Wily [facility] FERRITIN SERUM 2020-05-30 00:59:00 Wily [facility] TROPONIN I 2020-05-30 00:59:00 Trice Kraft [facility] THYROID STIMULATING 2020-05-30 00:59:00 Wily hilda [facility] HORMONE [facility] COMP. METABOLIC PANEL 2020-05-30 00:59:00 Trice Kraft [facility] ([id number]) Medical Branch LIPID PANEL 2020-05-30 00:59:00 Wily hilda [facility] ([id number])(TOTAL Medical Branch CHOLESTEROL, TRIGLYCERIDES, HDL) CBC WITH DIFF 2020-05-30 00:59:00 Trice Kraft [facility] GLYCOSYLATED HEMOGLOBIN 2020-05-30 00:59:00 Wily hilda [facility] (A1C) Medical Branch N-TERMINAL PRO-BNP 2020-05-30 00:59:00 Trice Kraft [facility] COVID-19 (ID NOW RAPID 2020-05-30 00:59:00 Trice Kraft [facility] TESTING) Medical Branch EKG-12 LEAD 2020-05-30 00:39:36 Trice Kraft [facility] NOTICE OF PRIVACY 2020-05-29 23:34:11 Doctor Unassigned, No [facility] PRACTICES Name Medical Branch CONSENT/REFUSAL FOR 2020-05-29 23:33:17 Doctor Unassigned, No [facility] DIAGNOSIS AND TREATMENT Name Medical Branch Encounters Start End Encounter Admission Attending Care Care Encounter Source Date/Time Date/Time Type Type Clinicians Facility Department ID 2022-01-27 Outpatient ALONSO EVANS [facility] Surgery [id number] [facility] 14:58:54 2022-02-08 2022-02-08 Outpatient [facility] [id number] [facility] 00:00:00 00:00:00 2022-01-20 2022-01-25 Inpatient ER JASVIR [facility] [id number] SLE 01:13:00 14:52:00 [facility] 2020-06-05 2020-06-05 Transition Mary Kay Cerna [id number] [facility] [place] [place] 00:00:00 00:00:00 of Care Cody Minery [id number] ity of [place] 4.2.7.2.686 [facility] [id number] [facility] 403 Branch 2020-06-05 2020-06-05 Transition Mary Kay Cerna [id number] 00:00:00 00:00:00 of Care Cody Minery [id number] [place] 4.2.7.2.686 [id number] 2020-05-29 2020-06-04 [facility] 1.2.840. 114 [id number] [facility] 18:50:00 17:57:00 Encounter Wily Arben Quintana [id number] ity of [place] 4.2.7.2.686 [facility] [id number] [place] [id number] Branch 2020-05-29 2020-06-04 [facility] 1.2.840. 114 [id number] 18:50:00 17:57:00 Encounter WilyArben chew [place] 350.1.13.10 [place] 4.2.7.2.686 [place] [id number] [facility] 2020-05-29 2020-05-29 Emergency X [facility] ERT [id number] Univers 18:28:00 18:28:[address] [facility] [place] [place] Results Test Description Test Time Test Comments Results Result Comments Source PHOSPHATIDYLETHANOL, BLOOD 2022-01-27 11:24:39 Test Item Value Reference Range Interpretation Comme nts PHOSPHATIDYLETHANOL (PETH) (test code = 5477142) See scanned report See scanned reportPOCT-GLUCOSE [id number] 09:57:09 Test Item Value Reference Range Interpretation Comments POC-GLUCOSE METER 216 mg/dL 70-110 H : TESTED A T [facility] 6720 (BEAKER) (test code = [place], 1538) [address]: Stopper Maker/Techni diaz ID = [id number] for Aleksey munroe (pca2)Pebbles BASIC METABOLIC [id number] 05:33:08 Test Item Value Reference Range Interpretation Comments SODIUM (BEAKER) 129 meq/L 136-145 L (test code = 381) POTASSIUM (BEAKER) 3.7 meq/L 3.5-5.1 (test code = 379) CHLORIDE (BEAKER) 92 meq/L 98-107 L (test code = 382) CO2 (BEAKER) (test 28 meq/L 22-29 code = 355) BLOOD UREA NITROGEN 52 mg/dL 7-21 H (BEAKER) (test code = 354) CREATININE (BEAKER) 2.34 mg/dL 0.57-1.25 H (test code = 358) GLUCOSE RANDOM 145 mg/dL 70-105 H (BEAKER) (test code = 652) CALCIUM (BEAKER) 9.5 mg/dL 8.4-10.2 (test code = 697) EGFR (BEAKER) (test 27 mL/min/1.73 ESTIMA MOSHE GFR IS code = 1092) sq m NOT ACCURATE CREATININE CLEARANCE IN PREDICTING GLOMERULAR FILTRATION RATE . ESTIMATED GFR I S NOT APPLICABLE FOR DIALYSIS PATIEN TS. Stopper Maker ID - PIAYA LCBC W/PLT COUNT & AUTO [id number] 04:37:52 Test Item Value Reference Range Interpretation Comments WHITE BLOOD CELL COUNT (BEAKER) 8.2 K/ L 3.5-10.5 (test code = 775) RED BLOOD CELL COUNT (BEAKER) 3.87 M/ L 4.63-6.08 L (test code = 761) HEMOGLOBIN (BEAKER) (test code = 11.7 GM/DL 13.7-17.5 L 410) HEMATOCRIT (BEAKER) (test code = 34.1 % 40.1-51.0 L 411) MEAN CORPUSCULAR VOLUME (BEAKER) 88.1 fL 79.0-92.2 (test code = 753) MEAN CORPUSCULAR HEMOGLOBIN 30.2 pg 25.7-32.2 (BEAKER) (test code = 751) MEAN CORPUSCULAR HEMOGLOBIN CONC 34.3 GM/DL 32.3-36.5 (BEAKER) (test code = 752) RED CELL DISTRIBUTION WIDTH 14.5 % 11.6-14.4 H (BEAKER) (test code = 412) PLATELET COUNT (BEAKER) (test 153 K/CU MM 150-450 code = 756) MEAN PLATELET VOLUME (BEAKER) 10.0 fL 9.4-12.4 (test code = 754) NUCLEATED RED BLOOD CELLS 0 /100 WBC 0-0 (BEAKER) (test code = 413) NEUTROPHILS RELATIVE PERCENT 80 % (BEAKER) (test code = 429) LYMPHOCYTES RELATIVE PERCENT 5 % (BEAKER) (test code = 430) MONOCYTES RELATIVE PERCENT 11 % (BEAKER) (test code = 431) EOSINOPHILS RELATIVE PERCENT 3 % (BEAKER) (test code = 432) BASOPHILS RELATIVE PERCENT 0 % (BEAKER) (test code = 437) NEUTROPHILS ABSOLUTE COUNT 6.55 K/ L 1.78-5.38 H (BEAKER) (test code = 670) LYMPHOCYTES ABSOLUTE COUNT 0.40 K/ L 1.32-3.57 L (BEAKER) (test code = 414) MONOCYTES ABSOLUTE COUNT (BEAKER) 0.87 K/ L 0.30-0.82 H (test code = 415) EOSINOPHILS ABSOLUTE COUNT 0.24 K/ L 0.04-0.54 (BEAKER) (test code = 416) BASOPHILS ABSOLUTE COUNT (BEAKER) 0.03 K/ L 0.01-0.08 (test code = 417) IMMATURE GRANULOCYTES-RELATIVE 2 % 0-1 H PERCENT (BEAKER) (test code = 2801) POCT-GLUCOSE [id number] 16:00:26 Test Item Value Reference Range Interpretation Comments POC-GLUCOSE METER 399 mg/dL 70-110 H : TESTED A T [facility] 6720 (BEAKER) (test code = [place], 1538) [address]: Stopper Maker/Techni diaz ID = [id number] for Maribel Rhoades BASIC METABOLIC [id number] 06:39:45 Test Item Value Reference Range Interpretation Comments SODIUM (BEAKER) 131 meq/L 136-145 L (test code = 381) POTASSIUM (BEAKER) 3.7 meq/L 3.5-5.1 (test code = 379) CHLORIDE (BEAKER) 94 meq/L 98-107 L (test code = 382) CO2 (BEAKER) (test 26 meq/L 22-29 code = 355) BLOOD UREA NITROGEN 57 mg/dL 7-21 H (BEAKER) (test code = 354) CREATININE (BEAKER) 2.77 mg/dL 0.57-1.25 H (test code = 358) GLUCOSE RANDOM 327 mg/dL 70-105 H (BEAKER) (test code = 652) CALCIUM (BEAKER) 9.4 mg/dL 8.4-10.2 (test code = 697) EGFR (BEAKER) (test 22 mL/min/1.73 ESTIMA MOSHE GFR IS code = 1092) sq m NOT ACCURATE CREATININE CLEARANCE IN PREDICTING GLOMERULAR FILTRATION RATE . ESTIMATED GFR I S NOT APPLICABLE FOR DIALYSIS PATIEN TS. Stopper Maker ID - PIAYA LCBC W/PLT COUNT & AUTO [id number] 05:29:49 Test Item Value Reference Range Interpretation Comments WHITE BLOOD CELL COUNT (BEAKER) 8.3 K/ L 3.5-10.5 (test code = 775) RED BLOOD CELL COUNT (BEAKER) 3.93 M/ L 4.63-6.08 L (test code = 761) HEMOGLOBIN (BEAKER) (test code = 11.7 GM/DL 13.7-17.5 L 410) HEMATOCRIT (BEAKER) (test code = 34.7 % 40.1-51.0 L 411) MEAN CORPUSCULAR VOLUME (BEAKER) 88.3 fL 79.0-92.2 (test code = 753) MEAN CORPUSCULAR HEMOGLOBIN 29.8 pg 25.7-32.2 (BEAKER) (test code = 751) MEAN CORPUSCULAR HEMOGLOBIN CONC 33.7 GM/DL 32.3-36.5 (BEAKER) (test code = 752) RED CELL DISTRIBUTION WIDTH 14.7 % 11.6-14.4 H (BEAKER) (test code = 412) PLATELET COUNT (BEAKER) (test 148 K/CU MM 150-450 L code = 756) MEAN PLATELET VOLUME (BEAKER) 11.0 fL 9.4-12.4 (test code = 754) NUCLEATED RED BLOOD CELLS 0 /100 WBC 0-0 (BEAKER) (test code = 413) NEUTROPHILS RELATIVE PERCENT 81 % (BEAKER) (test code = 429) LYMPHOCYTES RELATIVE PERCENT 5 % (BEAKER) (test code = 430) MONOCYTES RELATIVE PERCENT 10 % (BEAKER) (test code = 431) EOSINOPHILS RELATIVE PERCENT 2 % (BEAKER) (test code = 432) BASOPHILS RELATIVE PERCENT 0 % (BEAKER) (test code = 437) NEUTROPHILS ABSOLUTE COUNT 6.74 K/ L 1.78-5.38 H (BEAKER) (test code = 670) LYMPHOCYTES ABSOLUTE COUNT 0.45 K/ L 1.32-3.57 L (BEAKER) (test code = 414) MONOCYTES ABSOLUTE COUNT (BEAKER) 0.83 K/ L 0.30-0.82 H (test code = 415) EOSINOPHILS ABSOLUTE COUNT 0.16 K/ L 0.04-0.54 (BEAKER) (test code = 416) BASOPHILS ABSOLUTE COUNT (BEAKER) 0.02 K/ L 0.01-0.08 (test code = 417) IMMATURE GRANULOCYTES-RELATIVE 1 % 0-1 PERCENT (BEAKER) (test code = 2801) POCT-GLUCOSE [id number] 21:12:45 Test Item Value Reference Range Interpretation Comments POC-GLUCOSE METER 156 mg/dL 70-110 H : Notified RN/MD: (GAEL) (test code = TESTED AT [place] [address]) [facility], [address]: Stopper Maker/Techni diaz ID = [id number] for HAZEL CHUN POCT-GLUCOSE [id number] 19:36:30 Test Item Value Reference Range Interpretation Comments POC-GLUCOSE METER 209 mg/dL 70-110 H : Notified RN/MD: (GAEL) (test code = TESTED AT [place] [address]) [facility], [address]: Stopper Maker/Techni diaz ID = [id number] for HAZEL CHUN POCT-GLUCOSE [id number] 16:34:24 Test Item Value Reference Range Interpretation Comments POC-GLUCOSE METER 414 mg/dL 70-110 HH : Notified RN/MD: TESTED (GAEL) (test code AT [address] = 1538) [facility], [address]: Stopper Maker/Techni diaz ID = [id number] for Miryam brock Anabel POCT-GLUCOSE [id number] 12:12:54 Test Item Value Reference Range Interpretation Comments POC-GLUCOSE METER 180 mg/dL 70-110 H : TESTED A T [facility] 6720 (BEAKER) (test code [facility], = 1538) [address]: Stopper Maker/Techni diaz ID = [id number] for Anabel Silverio POCT-GLUCOSE [id number] 07:53:32 Test Item Value Reference Range Interpretation Comments POC-GLUCOSE METER 263 mg/dL 70-110 H : TESTED A T [facility] 6720 (BEAKER) (test code [facility], = 1538) [address]: Stopper Maker/Techni diaz ID = [id number] for Anabel Silverio COMPREHENSIVE METABOLIC [id number] 07:29:57 Test Item Value Reference Range Interpretation Comments TOTAL PROTEIN 5.8 gm/dL 6.0-8.3 L (BEAKER) (test code = 770) ALBUMIN (BEAKER) 3.0 g/dL 3.5-5.0 L (test code = 1145) ALKALINE PHOSPHATASE 103 U/L 40-150 (BEAKER) (test code = 346) BILIRUBIN TOTAL 3.2 mg/dL 0.2-1.2 H (BEAKER) (test code = 377) SODIUM (BEAKER) (test 130 meq/L 136-145 L code = 381) POTASSIUM (BEAKER) 4.2 meq/L 3.5-5.1 (test code = 379) CHLORIDE (BEAKER) 94 meq/L 98-107 L (test code = 382) CO2 (BEAKER) (test 28 meq/L 22-29 code = 355) BLOOD UREA NITROGEN 63 mg/dL 7-21 H (BEAKER) (test code = 354) CREATININE (BEAKER) 2.92 mg/dL 0.57-1.25 H (test code = 358) GLUCOSE RANDOM 318 mg/dL 70-105 H (BEAKER) (test code = 652) CALCIUM (BEAKER) 9.6 mg/dL 8.4-10.2 (test code = 697) AST (SGOT) (BEAKER) 53 U/L 5-34 H (test code = 353) ALT (SGPT) (BEAKER) 262 U/L 6-55 H (test code = 347) EGFR (BEAKER) (test 21 mL/min/1.73 ESTIMA MOSHE GFR IS code = 1092) sq m NOT ACCURATE CREATININE CLEARANCE IN PREDICTING GLOMERULAR FILTRATION RATE . ESTIMATED GFR I S NOT APPLICABLE FOR DIALYSIS PATIEN TS. Stopper Maker ID - SHANITA MSpecimen slightly ictericCBC W/PLT COUNT & AUTO [id number] 07:13:58 Test Item Value Reference Range Interpretation Comments WHITE BLOOD CELL COUNT (BEAKER) 7.0 K/ L 3.5-10.5 (test code = 775) RED BLOOD CELL COUNT (BEAKER) 3.99 M/ L 4.63-6.08 L (test code = 761) HEMOGLOBIN (BEAKER) (test code = 12.0 GM/DL 13.7-17.5 L 410) HEMATOCRIT (BEAKER) (test code = 36.0 % 40.1-51.0 L 411) MEAN CORPUSCULAR VOLUME (BEAKER) 90.2 fL 79.0-92.2 (test code = 753) MEAN CORPUSCULAR HEMOGLOBIN 30.1 pg 25.7-32.2 (BEAKER) (test code = 751) MEAN CORPUSCULAR HEMOGLOBIN CONC 33.3 GM/DL 32.3-36.5 (BEAKER) (test code = 752) RED CELL DISTRIBUTION WIDTH 15.1 % 11.6-14.4 H (BEAKER) (test code = 412) PLATELET COUNT (BEAKER) (test 137 K/CU MM 150-450 L code = 756) MEAN PLATELET VOLUME (BEAKER) 10.3 fL 9.4-12.4 (test code = 754) NUCLEATED RED BLOOD CELLS 0 /100 WBC 0-0 (BEAKER) (test code = 413) NEUTROPHILS RELATIVE PERCENT 80 % (BEAKER) (test code = 429) LYMPHOCYTES RELATIVE PERCENT 5 % (BEAKER) (test code = 430) MONOCYTES RELATIVE PERCENT 11 % (BEAKER) (test code = 431) EOSINOPHILS RELATIVE PERCENT 2 % (BEAKER) (test code = 432) BASOPHILS RELATIVE PERCENT 0 % (BEAKER) (test code = 437) NEUTROPHILS ABSOLUTE COUNT 5.61 K/ L 1.78-5.38 H (BEAKER) (test code = 670) LYMPHOCYTES ABSOLUTE COUNT 0.37 K/ L 1.32-3.57 L (BEAKER) (test code = 414) MONOCYTES ABSOLUTE COUNT (BEAKER) 0.75 K/ L 0.30-0.82 (test code = 415) EOSINOPHILS ABSOLUTE COUNT 0.17 K/ L 0.04-0.54 (BEAKER) (test code = 416) BASOPHILS ABSOLUTE COUNT (BEAKER) 0.02 K/ L 0.01-0.08 (test code = 417) IMMATURE GRANULOCYTES-RELATIVE 1 % 0-1 PERCENT (BEAKER) (test code = 2801) POCT-GLUCOSE [id number] 21:11:42 Test Item Value Reference Range Interpretation Comments POC-GLUCOSE METER 138 mg/dL 70-110 H : Notified RN/MD: (AKER) (test code = TESTED AT [place] [address]) [facility], [address]: Stopper Maker/Techni diaz ID = [id number] for DEE BYRNE HAZEL POCT-GLUCOSE [id number] 16:54:38 Test Item Value Reference Range Interpretation Comments POC-GLUCOSE METER 327 mg/dL 70-110 H : TESTED A T [place] [address] ([facility]) (test code [facility], = 1538) [address]: Stopper Maker/Techni diaz ID = [id number] for RED MCKEE HEPATIC FUNCTION [id number] 08:53:43 Test Item Value Reference Range Interpretation Comments TOTAL PROTEIN (BEAKER) (test code = 6.2 gm/dL 6.0-8.3 770) ALBUMIN (BEAKER) (test code = 1145) 3.3 g/dL 3.5-5.0 L BILIRUBIN TOTAL (BEAKER) (test code 4.1 mg/dL 0.2-1.2 H = 377) BILIRUBIN DIRECT (BEAKER) (test 3.2 mg/dL 0.1-0.5 H code = 706) ALKALINE PHOSPHATASE (BEAKER) (test 120 U/L 40-150 code = 346) AST (SGOT) (BEAKER) (test code = 72 U/L 5-34 H 353) ALT (SGPT) (BEAKER) (test code = 359 U/L 6-55 H 347) Stopper Maker ID - DBSpecimen slightly ictericPOCT-GLUCOSE [id number] 08:02:49 Test Item Value Reference Range Interpretation Comments POC-GLUCOSE METER 262 mg/dL 70-110 H : TESTED A T [facility] 6720 (BEAKER) (test code [facility], = 1538) [address]: Stopper Maker/Techni diaz ID = [id number] for RED MCKEE BASIC METABOLIC [id number] 05:00:34 Test Item Value Reference Range Interpretation Comments SODIUM (BEAKER) 135 meq/L 136-145 L (test code = 381) POTASSIUM (BEAKER) 4.4 meq/L 3.5-5.1 (test code = 379) CHLORIDE (BEAKER) 97 meq/L 98-107 L (test code = 382) CO2 (BEAKER) (test 28 meq/L 22-29 code = 355) BLOOD UREA NITROGEN 56 mg/dL 7-21 H (BEAKER) (test code = 354) CREATININE (BEAKER) 2.95 mg/dL 0.57-1.25 H (test code = 358) GLUCOSE RANDOM 364 mg/dL 70-105 H (BEAKER) (test code = 652) CALCIUM (BEAKER) 10.0 mg/dL 8.4-10.2 (test code = 697) EGFR (BEAKER) (test 21 mL/min/1.73 ESTIMA MOSHE GFR IS code = 1092) sq m NOT ACCURATE CREATININE CLEARANCE IN PREDICTING GLOMERULAR FILTRATION RATE . ESTIMATED GFR I S NOT APPLICABLE FOR DIALYSIS PATIEN TS. Stopper Maker ID - CLAUDIO GSpecimen slightly ictericCBC W/PLT COUNT & AUTO [id number] 04:57:06 Test Item Value Reference Range Interpretation Comments WHITE BLOOD CELL COUNT (BEAKER) 6.7 K/ L 3.5-10.5 (test code = 775) RED BLOOD CELL COUNT (BEAKER) 4.36 M/ L 4.63-6.08 L (test code = 761) HEMOGLOBIN (BEAKER) (test code = 13.0 GM/DL 13.7-17.5 L 410) HEMATOCRIT (BEAKER) (test code = 39.3 % 40.1-51.0 L 411) MEAN CORPUSCULAR VOLUME (BEAKER) 90.1 fL 79.0-92.2 (test code = 753) MEAN CORPUSCULAR HEMOGLOBIN 29.8 pg 25.7-32.2 (BEAKER) (test code = 751) MEAN CORPUSCULAR HEMOGLOBIN CONC 33.1 GM/DL 32.3-36.5 (BEAKER) (test code = 752) RED CELL DISTRIBUTION WIDTH 15.1 % 11.6-14.4 H (BEAKER) (test code = 412) PLATELET COUNT (BEAKER) (test 152 K/CU MM 150-450 code = 756) MEAN PLATELET VOLUME (BEAKER) 10.5 fL 9.4-12.4 (test code = 754) NUCLEATED RED BLOOD CELLS 0 /100 WBC 0-0 (BEAKER) (test code = 413) NEUTROPHILS RELATIVE PERCENT 82 % (BEAKER) (test code = 429) LYMPHOCYTES RELATIVE PERCENT 5 % (BEAKER) (test code = 430) MONOCYTES RELATIVE PERCENT 10 % (BEAKER) (test code = 431) EOSINOPHILS RELATIVE PERCENT 2 % (BEAKER) (test code = 432) BASOPHILS RELATIVE PERCENT 1 % (BEAKER) (test code = 437) NEUTROPHILS ABSOLUTE COUNT 5.48 K/ L 1.78-5.38 H (BEAKER) (test code = 670) LYMPHOCYTES ABSOLUTE COUNT 0.31 K/ L 1.32-3.57 L (BEAKER) (test code = 414) MONOCYTES ABSOLUTE COUNT (BEAKER) 0.68 K/ L 0.30-0.82 (test code = 415) EOSINOPHILS ABSOLUTE COUNT 0.11 K/ L 0.04-0.54 (BEAKER) (test code = 416) BASOPHILS ABSOLUTE COUNT (BEAKER) 0.04 K/ L 0.01-0.08 (test code = 417) IMMATURE GRANULOCYTES-RELATIVE 1 % 0-1 PERCENT (BEAKER) (test code = 2801) U/S, RENAL, [id number] 00:08:00Reason for exam:->[facility] : 1940 Sex: MFINAL REPORT TECHNIQUE: Grayscale ultrasound of the kidneys and bladder with Doppler and spectral analysis. INDICATION: HIRO. COMPARISON: 01/20/2022. FINDINGS: RIGHT KIDNEY: The right kidney is 9.6 x 4.7 x 4.1 cm. Cortical thickness is 1.1 cm. There are several simple cysts with largest 1.6 cm diameter. No solid mass lesions. No hydronephrosis. Renal artery and vein are patent. LEFT KIDNEY: The left kidney is 10.4 x 5.0 x 4.4 cm. Cortical thickness is 1.2 cm. There are several simple cysts with largest 1.9 cm diameter. No solid mass lesions. No hydronephrosis. Renal artery and vein are patent. BLADDER: Unremarkable. IMPRESSION:Bilateral renal cysts. Otherwise, unremarkable ultrasound of the kidneys. No hydronephrosis. Signed: Carolin Knox MDReport Verified Date/Time: 01/22/2022 00:08:17 POCT-GLUCOSE [id number] 21:45:31 Test Item Value Reference Range Interpretation Comments POC-GLUCOSE METER 258 mg/dL 70-110 H : TESTED A T [facility] 6720 (BEAKER) (test code = [place]OY[place] [facility], 1538) [address]: Stopper Maker/Techni diaz ID = [id number] for STACEY GARRETT CREATININE, RANDOM [id number] 19:56:51 Test Item Value Reference Range Interpretation Comments CREATININE URINE (BEAKER) (test 23.7 mg/dL code = 375) Reference Range: No NormalsOperator ID - DBPROTEIN, RANDOM [id number] 19:56:51 Test Item Value Reference Range Interpretation Comments PROTEIN, URINE (BEAKER) (test code = 62 mg/dL 0-14 H 1569) Stopper Maker ID - DBURINALYSIS W/ [id number] 19:47:32 Test Item Value Reference Range Interpretation Comments COLOR (BEAKER) (test code = 470) Yellow CLARITY (BEAKER) (test code = 469) Clear SPECIFIC GRAVITY UA (BEAKER) (test 1.008 1.001-1.035 code = 468) PH UA (BEAKER) (test code = 467) 6.5 5.0-8.0 PROTEIN UA (BEAKER) (test code = 50 mg/dL Negative A 464) GLUCOSE UA (BEAKER) (test code = 200 mg/dL Negative A 365) KETONES UA (BEAKER) (test code = Negative Negative 371) BILIRUBIN UA (BEAKER) (test code = Negative Negative 462) BLOOD UA (BEAKER) (test code = 461) Negative Negative NITRITE UA (BEAKER) (test code = Negative Negative 465) LEUKOCYTE ESTERASE UA (BEAKER) Negative Negative (test code = 466) UROBILINOGEN UA (BEAKER) (test code 3.0 mg/dL 0.2-1.0 H = 463) RBC UA (BEAKER) (test code = 519) 1 /HPF WBC UA (BEAKER) (test code = 520) 0 /HPF BACTERIA (BEAKER) (test code = 517) None Seen CRYSTALS, URINE (BEAKER) (test code None Seen = 1521) SOURCE(BEAKER) (test code = 2795) Stopper Maker ID - [auto]Stopper Maker ID - techPOCT-GLUCOSE [id number] 16:23:46 Test Item Value Reference Range Interpretation Comments POC-GLUCOSE METER 270 mg/dL 70-110 H : TESTED A T [facility] 6720 (BEAKER) (test code = [facility], 1538) [address]: Stopper Maker/Techni diaz ID = [id number] for DEONNA GREENE JENNIFFER KAMAR TITER AND [id number] 11:55:46 Test Item Value Reference Range Interpretation Comments KAMAR TITER (BEAKER) (test code = :40 1541) KAMAR PATTERN (BEAKER) (test code = Homogeneous 1781) ANTI-NUCLEAR ANTIBODY (KAMAR)2022-01-21 11:55:40 Test Item Value Reference Range Interpretation Comments ANTI-NUCLEAR ANTIBODY (KAMAR) (BEAKER) Positive Negative A (test code = 418) Test performed by IFA method.POCT-GLUCOSE [id number] 11:43:49 Test Item Value Reference Range Interpretation Comments POC-GLUCOSE METER 225 mg/dL 70-110 H : TESTED A T [facility] 6720 (BEAKER) (test code = [facility], 1538) [address]: Stopper Maker/Techni diaz ID = [id number] for BERNARDO DALGO, AGLAE HEPATIC FUNCTION [id number] 10:49:28 Test Item Value Reference Range Interpretation Comments TOTAL PROTEIN (BEAKER) (test code = 6.1 gm/dL 6.0-8.3 770) ALBUMIN (BEAKER) (test code = 1145) 3.2 g/dL 3.5-5.0 L BILIRUBIN TOTAL (BEAKER) (test code 4.6 mg/dL 0.2-1.2 H = 377) BILIRUBIN DIRECT (BEAKER) (test 3.5 mg/dL 0.1-0.5 H code = 706) ALKALINE PHOSPHATASE (BEAKER) (test 121 U/L 40-150 code = 346) AST (SGOT) (BEAKER) (test code = 121 U/L 5-34 H 353) ALT (SGPT) (BEAKER) (test code = 455 U/L 6-55 H 347) Stopper Maker ID - BSSpecimen moderately ictericPOCT-GLUCOSE [id number] 08:08:00 Test Item Value Reference Range Interpretation Comments POC-GLUCOSE METER 172 mg/dL 70-110 H : [facility] (BEAKER) (test code = [facility], 1538[facility] [address]: Stopper Maker/Techni diaz ID = [id number] for ELIZABETH DUFFY CBC W/PLT COUNT & AUTO [id number] 05:10:56 Test Item Value Reference Range Interpretation Comments WHITE BLOOD CELL COUNT (BEAKER) 6.2 K/ L 3.5-10.5 (test code = 775) RED BLOOD CELL COUNT (BEAKER) 4.09 M/ L 4.63-6.08 L (test code = 761) HEMOGLOBIN (BEAKER) (test code = 12.3 GM/DL 13.7-17.5 L 410) HEMATOCRIT (BEAKER) (test code = 35.8 % 40.1-51.0 L 411) MEAN CORPUSCULAR VOLUME (BEAKER) 87.5 fL 79.0-92.2 (test code = 753) MEAN CORPUSCULAR HEMOGLOBIN 30.1 pg 25.7-32.2 (BEAKER) (test code = 751) MEAN CORPUSCULAR HEMOGLOBIN CONC 34.4 GM/DL 32.3-36.5 (BEAKER) (test code = 752) RED CELL DISTRIBUTION WIDTH 14.9 % 11.6-14.4 H (BEAKER) (test code = 412) PLATELET COUNT (BEAKER) (test 161 K/CU MM 150-450 code = 756) MEAN PLATELET VOLUME (BEAKER) 10.3 fL 9.4-12.4 (test code = 754) NUCLEATED RED BLOOD CELLS 0 /100 WBC 0-0 (BEAKER) (test code = 413) NEUTROPHILS RELATIVE PERCENT 81 % (BEAKER) (test code = 429) LYMPHOCYTES RELATIVE PERCENT 6 % (BEAKER) (test code = 430) MONOCYTES RELATIVE PERCENT 10 % (BEAKER) (test code = 431) EOSINOPHILS RELATIVE PERCENT 2 % (BEAKER) (test code = 432) BASOPHILS RELATIVE PERCENT 1 % (BEAKER) (test code = 437) NEUTROPHILS ABSOLUTE COUNT 4.99 K/ L 1.78-5.38 (BEAKER) (test code = 670) LYMPHOCYTES ABSOLUTE COUNT 0.37 K/ L 1.32-3.57 L (BEAKER) (test code = 414) MONOCYTES ABSOLUTE COUNT (BEAKER) 0.62 K/ L 0.30-0.82 (test code = 415) EOSINOPHILS ABSOLUTE COUNT 0.12 K/ L 0.04-0.54 (BEAKER) (test code = 416) BASOPHILS ABSOLUTE COUNT (BEAKER) 0.03 K/ L 0.01-0.08 (test code = 417) IMMATURE GRANULOCYTES-RELATIVE 1 % 0-1 PERCENT (BEAKER) (test code = 2801) BASIC METABOLIC [id number] 05:03:58 Test Item Value Reference Range Interpretation Comments SODIUM (BEAKER) 134 meq/L 136-145 L (test code = 381) POTASSIUM (BEAKER) 3.7 meq/L 3.5-5.1 (test code = 379) CHLORIDE (BEAKER) 98 meq/L 98-107 (test code = 382) CO2 (BEAKER) (test 25 meq/L 22-29 code = 355) BLOOD UREA NITROGEN 57 mg/dL 7-21 H (BEAKER) (test code = 354) CREATININE (BEAKER) 2.95 mg/dL 0.57-1.25 H (test code = 358) GLUCOSE RANDOM 222 mg/dL 70-105 H (BEAKER) (test code = 652) CALCIUM (BEAKER) 9.8 mg/dL 8.4-10.2 (test code = 697) EGFR (GAEL) (test 21 mL/min/1.73 ESTIMA MOSHE GFR IS code = 1092) sq m NOT ACCURATE CREATININE CLEARANCE IN PREDICTING GLOMERULAR FILTRATION RATE . ESTIMATED GFR I S NOT APPLICABLE FOR DIALYSIS PATIEN TS. Stopper Maker ID - SHANITA MSpecimen slightly [id number] 04:54:21 Test Item Value Reference Range Interpretation Comments MAGNESIUM (GAEL) (test code = 1.9 mg/dL 1.6-2.6 627) Stopper Maker ID - SHANITA MU/S, ABDOMINAL, WITH [id number] 00:51:00Reason for exam:->elevated lfts [facility] 1940 Sex: MFINAL REPORT History: elevated lfts Abdominal ultrasound dated 01/20/2022 Comparison: None Comment: Real-time transabdominal ultrasound of the abdomen was performed. Liver: 13.6 cm , normal. Normal echogenicity. No focal lesions. Gallbladder: No gallstones. No gallbladder wall thickening. No pericholecystic fluid.. No sonographic Peters's sign. Transverse diameter: 3.0 cm Biliary tree: No intrahepatic ductal dilatation. CBD: 2 mm. Spleen: Mildly enlarged, measuring 13.3 cm in maximum dimension. Pancreas: Unremarkable. Right kidney: 9.5 x 4.9 x 3.8 cm. Elevated echogenicity. There are 2 right renal cysts, the larger in the midpole measuring 1.1 cm.Left kidney: 10.8 x 4.9 x 4.4 cm. Elevated echogenicity. 3 left renal cysts, the largest measuring 2.1 cm in the midpole. No ascites is present in the abdomen. Real-time Vasquez scale, color and spectral doppler ultrasound of the abdomen was performed to evaluate visceral blood flow. Main portal vein measures 0.9 cm in diameter. There is hepatopetal flow in the main portal vein with velocity 17.6 cm/sec. The right and left intrahepatic portal veins are patent with hepatopetal flow. Proper hepatic artery, right hepatic artery, and left hepatic artery are patent with resistive indices 0.7, 0.6, and 0.7 respectively. IVC, Hepatic venous confluence, right HV, middle HV and left HV are patent with appropriate flow. The visualized abdominal aorta is normal in caliber. Impression: No ultrasound abnormality to explain the patient's elevated LFTs. Mild splenomegaly. Normal abdominal Doppler evaluation. Signed: Anne Marie Ward MDReport Verified Date/Time: 01/21/2022 00:51:44 POCT-GLUCOSE [id number] 21:06:06 Test Item Value Reference Range Interpretation Comments POC-GLUCOSE METER 248 mg/dL 70-110 H : TESTED A T [facility] 6720 (BEAKER) (test code = [facility], 1538) [address]: Stopper Maker/Techni diaz ID = [id number] for STACEY GARRETT HEPATITIS B CORE ANTIBODY, [id number] 18:10:17 Test Item Value Reference Range Interpretation Comments HEPATITIS B CORE TOTAL ANTIBODY Reactive Nonreactive A (BEAKER) (test code = 497) Stopper Maker ID - BSOperator ID - BSOperator ID - BSHEPATITIS C [id number] 17:50:30 Test Item Value Reference Range Interpretation Comments HEPATITIS C ANTIBODY (BEAKER) Nonreactive Nonreactive (test code = 367) Stopper Maker ID - BSHEPATITIS B SURFACE [id number] 17:50:24 Test Item Value Reference Range Interpretation Comments HEPATITIS B SURFACE ANTIGEN (2) Nonreactive Nonreactive (BEAKER) (test code = 2585) Specimen is considered negative for HBsAg.HEPATITIS B SURFACE [id number] 17:50:24 Test Item Value Reference Range Interpretation Comments HEPATITIS B SURFACE ANTIBODY 830.9 mIU/mL <8.0 H (BEAKER) (test code = 647) Stopper Maker ID - BSHEPATITIS B CORE ANTIBODY, [id number] 17:36:49 Test Item Value Reference Range Interpretation Comments HEPATITIS B CORE IGM ANTIBODY Nonreactive Nonreactive (BEAKER) (test code = 645) Stopper Maker ID - BSHEPATITIS A ANTIBODY, [id number] 17:36:49 Test Item Value Reference Range Interpretation Comments HEPATITIS A IGG ANTIBODY (BEAKER) Nonreactive Nonreactive (test code = 2797) Stopper Maker ID - BSALPHA FETOPROTEIN (AFP), TUMOR [id number] 17:36:48 Test Item Value Reference Range Interpretation Comments ALPHA-FETOPROTEIN (BEAKER) (test 3.7 ng/mL <10.0 code = 1094) Stopper Maker ID - BSIMMUNOGLOBULIN G (IGG)2022-01-20 17:15:56 Test Item Value Reference Range Interpretation Comments IMMUNOGLOBULIN G (IGG) 1081 mg/dL See_Comment [Aut omated message] (BEAKER) (test code = The sy stem which 427) generated this result transmit moshe reference range : 540-1,822. The reference range was not used to interpret this result as normal/abnormal . Stopper Maker ID - BSIRON, TIBC, % SAT. (WITHOUT FERRITIN)2022-01-20 17:15:56 Test Item Value Reference Range Interpretation Comments IRON (BEAKER) (test code = 547) 94.0 ug/dL 40.0-160.0 TOTAL IRON BINDING CAPACITY 245 ug/dL 250-450 L (BEAKER) (test code = 769) IRON % SATURATION (2) (BEAKER) 38 % 20-55 (test code = 2590) Stopper Maker ID - BSPOCT-GLUCOSE [id number] 16:55:44 Test Item Value Reference Range Interpretation Comments POC-GLUCOSE METER 226 mg/dL 70-110 H : TESTED A T [facility] 6720 (BEAKER) (test code = [facility], 1538) [address]: Stopper Maker/Techni diaz ID = [id number] for Lauryn MONIQUE [id number] 16:54:50 Test Item Value Reference Range Interpretation Comments ALPHA-1 ANTITRYPSIN (BEAKER) 162.50 mg/dL 90.00-200.00 (test code = 502) Stopper Maker ID - [id number] 16:52:28 Test Item Value Reference Range Interpretation Comments FERRITIN (GAEL) (test code = 1286.44 ng/mL 5.00-275.00 H 361) Stopper Maker ID - BSPOCT-GLUCOSE [id number] 11:44:46 Test Item Value Reference Range Interpretation Comments POC-GLUCOSE METER 207 mg/dL 70-110 H : TESTED A T [facility] 6720 (GAEL) (test code [facility], = 1538) [address]862: Stopper Maker/Techni diaz ID = [id number] for RED MCKEE HEMOGLOBIN [id number] 10:30:47 Test Item Value Reference Range Interpretation Comments HEMOGLOBIN A1C 6.3 % See_Comment H [Automated m essage] ELECTROPHORESIS (GAEL) The system which (test code = 3811) generated this result transmitted ref erence range: <=5.6%. The reference range was not used to int erpret this result as normal/abnormal . "The A1c is measured using a NGSP-certified method. HbA1c value equal to or greater than 6.5% as thediagnosis cutoff for diabetes. An HbA1c value of 5.7- 6.4% indicates increased risk for diabetes (prediabetes)."Stopper Maker ID - ADMFAM, CHEST, 2 [id number] 10:28:00Reason for exam:->concern for heart failureDiagnosis:->Shortness of breath [facility] : 1940 Sex: MFINAL REPORT INDICATION: concern for heart failure COMPARISON: None TECHNIQUE: AP and lateral view of the chest. FINDINGS: Lines, tubes, and devices: A 3-lead left subclavian approach AICD-pacemaker combination projects in good position.Lungs and pleura: Scattered linear opacities in the right lower lung. No effusion.Heart and mediastinum: Normal heart size. Unremarkable me diastinal contours.Osseous structures: No acute abnormality.Other: None. IMPRESSION: No acute intrathoracic abnormality.Linear atelectasis/scarring in the right lower lung. Signed: Meghan Poole MDReport Verified Date/Time: 01/20/2022 10:28:13 Reading Location: [facility] Radiology Reading Room POCT- GLUCOSE [id number] 07:47:02 Test Item Value Reference Range Interpretation Comments POC-GLUCOSE METER 173 mg/dL 70-110 H : TESTED A T [facility] 6720 (BEAKER) (test code [facility], = 1538) [address]: Stopper Maker/Techni diaz ID = [id number] for RED MCKEE POCT-GLUCOSE [id number] 03:51:00 Test Item Value Reference Range Interpretation Comments POC-GLUCOSE METER 188 mg/dL 70-110 H : TESTED A T [facility] 6720 (BEAKER) (test code = [facility], 1538) 486[address]: Stopper Maker/Techni diaz ID = [id number] for HAZEL CHUN BASIC METABOLIC [id number] 03:35:28 Test Item Value Reference Range Interpretation Comments SODIUM (BEAKER) 131 meq/L 136-145 L (test code = 381) POTASSIUM (BEAKER) 2.7 meq/L 3.5-5.1 L (test code = 379) CHLORIDE (BEAKER) 92 meq/L 98-107 L (test code = 382) CO2 (BEAKER) (test 27 meq/L 22-29 code = 355) BLOOD UREA NITROGEN 64 mg/dL 7-21 H (BEAKER) (test code = 354) CREATININE (BEAKER) 3.18 mg/dL 0.57-1.25 H (test code = 358) GLUCOSE RANDOM 176 mg/dL 70-105 H (BEAKER) (test code = 652) CALCIUM (BEAKER) 9.7 mg/dL 8.4-10.2 (test code = 697) EGFR (BEAKER) (test 19 mL/min/1.73 ESTIMA MOSHE GFR IS code = 1092) sq m NOT ACCURATE CREATININE CLEARANCE IN PREDICTING GLOMERULAR FILTRATION RATE . ESTIMATED GFR I S NOT APPLICABLE FOR DIALYSIS PATIEN TS. Stopper Maker ID - SHANITA MSpecimen moderately ictericB-TYPE NATRIURETIC FACTOR (BNP) 2022-01-20 03:16:05 Test Item Value Reference Range Interpretation Comments B-TYPE NATRIURETIC PEPTIDE (BEAKER) 319 pg/mL 0-100 H (test code = 700) Stopper Maker ID - SHANITA MHIGH SENSITIVITY TROPONIN [id number] 03:16:00 Test Item Value Reference Range Interpretation Comments HIGH SENSITIVITY 35 pg/ml See_Comment [Automated message] TROPONIN I (test code = The system which 2469357) generated this result transmitted ref erence range: <=35. Th e reference range was not used to int erpret this result as normal/abnormal . Stopper Maker ID - SHANITA MThe [employer] STAT High Sensitivity Troponin-I results should be used in conjunction with other diagnostic information such as ECG, clinical observations and information, and patient symptoms to aid in the diagnosis of VT.HEPATIC FUNCTION [id number] 03:14:30 Test Item Value Reference Range Interpretation Comments TOTAL PROTEIN (BEAKER) (test code = 6.2 gm/dL 6.0-8.3 770) ALBUMIN (BEAKER) (test code = 1145) 3.2 g/dL 3.5-5.0 L BILIRUBIN TOTAL (BEAKER) (test code 5.1 mg/dL 0.2-1.2 H = 377) BILIRUBIN DIRECT (BEAKER) (test 3.8 mg/dL 0.1-0.5 H code = 706) ALKALINE PHOSPHATASE (BEAKER) (test 116 U/L 40-150 code = 346) AST (SGOT) (BEAKER) (test code = 222 U/L 5-34 H 353) ALT (SGPT) (BEAKER) (test code = 666 U/L 6-55 H 347) Stopper Maker ID - SHANITA MSpecimen moderately [id number] 03:14:29 Test Item Value Reference Range Interpretation Comments MAGNESIUM (BEAKER) (test code = 1.6 mg/dL 1.6-2.6 627) Stopper Maker ID - SHANITA MLIPID [id number] 03:14:29 Test Item Value Reference Range Interpretation Comments TRIGLYCERIDES (BEAKER) (test code = 165 mg/dL 540) CHOLESTEROL (BEAKER) (test code = 168 mg/dL 631) HDL CHOLESTEROL (BEAKER) (test code 13 mg/dL = 976) LDL CHOLESTEROL CALCULATED (BEAKER) 122 mg/dL (test code = 633) Triglyceride Reference Range: Low Risk <150 Borderline 150-199 High Risk 200-499 Very High Risk >=500Cholesterol Reference Range: Low Risk <200 Borderline 200-239 High Risk >240HDL Cholesterol Reference Range: Low Risk >=60 High Risk <40LDL Cholesterol Reference Range: Optimal <100 Near Optimal 100-129 Borderline 130-159 High 160-189 Very High >=190 Stopper Maker ID - SHANITA MSpecimen moderately ictericCBC W/PLT COUNT & AUTO [id number] 02:51:43 Test Item Value Reference Range Interpretation Comments WHITE BLOOD CELL COUNT (BEAKER) 6.6 K/ L 3.5-10.5 (test code = 775) RED BLOOD CELL COUNT (BEAKER) 4.27 M/ L 4.63-6.08 L (test code = 761) HEMOGLOBIN (BEAKER) (test code = 12.8 GM/DL 13.7-17.5 L 410) HEMATOCRIT (BEAKER) (test code = 37.4 % 40.1-51.0 L 411) MEAN CORPUSCULAR VOLUME (BEAKER) 87.6 fL 79.0-92.2 (test code = 753) MEAN CORPUSCULAR HEMOGLOBIN 30.0 pg 25.7-32.2 (BEAKER) (test code = 751) MEAN CORPUSCULAR HEMOGLOBIN CONC 34.2 GM/DL 32.3-36.5 (BEAKER) (test code = 752) RED CELL DISTRIBUTION WIDTH 14.8 % 11.6-14.4 H (BEAKER) (test code = 412) PLATELET COUNT (BEAKER) (test 165 K/CU MM 150-450 code = 756) MEAN PLATELET VOLUME (BEAKER) 9.9 fL 9.4-12.4 (test code = 754) NUCLEATED RED BLOOD CELLS 0 /100 WBC 0-0 (BEAKER) (test code = 413) NEUTROPHILS RELATIVE PERCENT 82 % (BEAKER) (test code = 429) LYMPHOCYTES RELATIVE PERCENT 5 % (BEAKER) (test code = 430) MONOCYTES RELATIVE PERCENT 10 % (BEAKER) (test code = 431) EOSINOPHILS RELATIVE PERCENT 2 % (BEAKER) (test code = 432) BASOPHILS RELATIVE PERCENT 0 % (BEAKER) (test code = 437) NEUTROPHILS ABSOLUTE COUNT 5.35 K/ L 1.78-5.38 (BEAKER) (test code = 670) LYMPHOCYTES ABSOLUTE COUNT 0.35 K/ L 1.32-3.57 L (BEAKER) (test code = 414) MONOCYTES ABSOLUTE COUNT (BEAKER) 0.67 K/ L 0.30-0.82 (test code = 415) EOSINOPHILS ABSOLUTE COUNT 0.10 K/ L 0.04-0.54 (BEAKER) (test code = 416) BASOPHILS ABSOLUTE COUNT (BEAKER) 0.02 K/ L 0.01-0.08 (test code = 417) IMMATURE GRANULOCYTES-RELATIVE 1 % 0-1 PERCENT (BEAKER) (test code = 2801) POCT GLUCOSE (AUTOMATED)2020-06-04 21:59:00 Test Item Value Reference Range Interpretation Comments POCT GLU (test code = 5479679349) 133 mg/dL 70-110 H Lab Interpretation (test code = Abnormal 49939-1) [facility] 17:13:00 Test Item Value Reference Range Interpretation Comments POCT GLU (test code = 3096995791) 154 mg/dL 70-110 H Lab Interpretation (test code = Abnormal 97932-4) [facility] CenterXR CHEST 1 [id number] 14:00:56HISTORY: Follow-up of CHF. TECHNIQUE: AP view [...] ifany, residual pulmonary edema seen at this time.[facility] GLUCOSE (AUTOMATED)2020-06-04 13:19:00 Test Item Value Reference Range Interpretation Comments POCT GLU (test code = 4768121549) 98 mg/dL 70-110 Lab Interpretation (test code = Normal 22614-1) [facility] GLUCOSE (AUTOMATED)2020-06-04 01:35:00 Test Item Value Reference Range Interpretation Comments POCT GLU (test code = 0355127716) 192 mg/dL 70-110 H Lab Interpretation (test code = Abnormal 94293-9) [facility] GLUCOSE (AUTOMATED)2020-06-03 21:51:00 Test Item Value Reference Range Interpretation Comments POCT GLU (test code = 6251346787) 98 mg/dL 70-110 Lab Interpretation (test code = Normal 81714-1) [facility] GLUCOSE (AUTOMATED)2020-06-03 17:28:00 Test Item Value Reference Range Interpretation Comments POCT GLU (test code = 9272744368) 195 mg/dL 70-110 H Lab Interpretation (test code = Abnormal 74554-2) [facility] GLUCOSE (AUTOMATED)2020-06-03 13:43:00 Test Item Value Reference Range Interpretation Comments POCT GLU (test code = 2360212650) 98 mg/dL 70-110 Lab Interpretation (test code = Normal 96232-5) [facility] WITH [id number] 13:10:00 Test Item Value Reference Range Interpretation [...] RDW-SD (test code = 46.4 fL 38.5-51.6 40617-7) RDW-CV (test code = 13.7 % 12.1-15.4 788-0) PLT (test code = See_Comment L [Automated 777-3) message] The sy stem which generated this result transmitted reference range : 150 - 328 10*3/ ?L. The reference r martin was not used to interpret this result as normal/abnormal . MPV (test code = 10.5 fL 9.8-13 55642-1) NRBC/100 WBC (test See_Comment [Automat ed code = 1143914703) message] The system which generated this result transmitted reference range : 0.0 - 10.0 /100 WBCs. The refer ence range was not u sed to interpret th is result as normal/abnormal . NRBC x10^3 (test code <0.01 See_Comment [Auto mated = 8227697712) message] The s ystem which generated this result transmitted reference range : 10*3/?L. The reference range was not used to interpret this result as normal/abnormal . GRAN MAT (NEUT) % 55.9 % (test code = 770-8) IMM GRAN % (test code 0.40 % = 2013724714) LYMPH % (test code = 16.5 % 736-9) MONO % (test code = 12.4 % 5905-5) EOS % (test code = 14.0 % 713-8) BASO % (test code = 0.8 % 706-2) GRAN MAT x10^3(ANC) 1.35 10*3/uL 1.99-6.95 L (test code = 1783869141) IMM GRAN x10^3 (test <0.03 0-0.06 code = 7582084630) LYMPH x10^3 (test code 0.40 10*3/uL 1.09-3.23 L = 731-0) MONO x10^3 (test code 0.30 10*3/uL 0.36-1.02 L = 742-7) EOS x10^3 (test code = 0.34 10*3/uL 0.06-0.53 711-2) BASO x10^3 (test code <0.03 0.01-0.09 = 704-7) Lab Interpretation Abnormal (test code = 27759-4) [facility]. METABOLIC PANEL (54753)2020-06-03 12:46:00 Test Item Value Reference Range Interpretation Comments NA (test code = 136 mmol/L 135-145 9244417394) K (test code = 3.9 mmol/L 3.5-5 0612355080) CL (test code = 100 mmol/L 98-108 4521914024) CO2 TOTAL (test code = 27 mmol/L 23-31 9693894954) AGAP (test code = 2-16 8740050729) BUN (test code = 37 mg/dL 7-23 H 6473546731) GLUCOSE (test code = 87 mg/dL 70-110 6508960036) CREATININE (test code = 1.85 mg/dL 0.6-1.25 H 8422244556) TOTAL BILI (test code = 0.4 mg/dL 0.1-1.1 9237837425) CALCIUM (test code = 9.4 mg/dL 8.6-10.6 5926596488) T PROTEIN (test code = 6.3 g/dL 6.3-8.2 0861447429) ALBUMIN (test code = 3.2 g/dL 3.5-5 L 5341645572) ALK PHOS (test code = 58 U/L 34-122 6755177871) ALTv (test code = 22 U/L 5-50 1742-6) AST(SGOT) (test code = 31 U/L 13-40 2909958994) eGFR Calculation mL/min/1.73m2 (Non-) (test code = 6132968076) eGFR Calculation mL/min/1.73m2 () (test code = 5886821889) EMIR (test code = EMIR) Association of [...] tests). Lab Interpretation Abnormal (test code = 90241-8) [facility]2020-06-03 01:56:00 Test Item Value Reference Range Interpretation Comments POCT GLU (test code = 5337687887) 152 mg/dL 70-110 H Lab Interpretation (test code = Abnormal 76179-6) [facility] CenterMOD BARIUM SWALLOW, (COOKIE)2020-06-02 23:24:43 Flash laryngeal penetration [...] nectar thick liquid, puree or jewelry solids. [facility], Radiant Results Inft User- 06/02/2020 6:25 PM [...] to the speech pathologist's report for further details.[facility] GLUCOSE (AUTOMATED)2020-06-02 21:24:00 Test Item Value Reference Range Interpretation Comments POCT GLU (test code = 129 mg/dL 70-110 H Notifi ed Provider 8132206051) Lab Interpretation (test Abnormal code = 71973-2) [facility] GLUCOSE (AUTOMATED)2020-06-02 17:12:00 Test Item Value Reference Range Interpretation Comments POCT GLU (test code = 159 mg/dL 70-110 H Notifi ed Provider 5193801649) Lab Interpretation (test Abnormal code = 51779-4) [facility] WITH [id number] 14:34:00 Test Item Value Reference Range Interpretation Comments WBC (test code = See_Comment L [Automated 3190-2) message] The sy stem which generated this result transmitted reference range : 4.20 - 10.70 10*3/?L. The reference range was not used to interpret this result as normal/abnormal . RBC (test code = See_Comment L [Automated 179-8) message] The sy stem which generated this [...] RDW-SD (test code = 46.7 fL 38.5-51.6 34924-7) RDW-CV (test code = 13.9 % 12.1-15.4 788-0) PLT (test code = See_Comment [Automated 777-3) message] The sy stem which generated this result transmitted reference range : 150 - 328 10*3/ ?L. The reference r martin was not used to interpret this result as normal/abnormal . MPV (test code = 10.4 fL 9.8-13 50319-7) NRBC/100 WBC (test See_Comment [Automat ed code = 9618169091) message] The system which generated this result transmitted reference range : 0.0 - 10.0 /100 WBCs. The refer ence range was not u sed to interpret th is result as normal/abnormal . NRBC x10^3 (test code <0.01 See_Comment [Auto mated = 7807005530) message] The s ystem which generated this result transmitted reference range : 10*3/?L. The reference range was not used to interpret this result as normal/abnormal . GRAN MAT (NEUT) % 58.9 % (test code = 770-8) IMM GRAN % (test code 0.40 % = 8362605296) LYMPH % (test code = 11.3 % 736-9) MONO % (test code = 10.8 % 5905-5) EOS % (test code = 17.3 % 713-8) BASO % (test code = 1.3 % 706-2) GRAN MAT x10^3(ANC) 1.36 10*3/uL 1.99-6.95 L (test code = 6269119323) IMM GRAN x10^3 (test <0.03 0-0.06 code = 3161090110) LYMPH x10^3 (test code 0.26 10*3/uL 1.09-3.23 L = 731-0) MONO x10^3 (test code 0.25 10*3/uL 0.36-1.02 L = 742-7) EOS x10^3 (test code = 0.40 10*3/uL 0.06-0.53 711-2) BASO x10^3 (test code 0.03 10*3/uL 0.01-0.09 = 704-7) Lab Interpretation Abnormal (test code = 46816-0) [facility]2020-06-02 13:45:00 Test Item Value Reference Range Interpretation Comments POCT GLU (test code = 8235969301) 105 mg/dL 70-110 Lab Interpretation (test code = Normal 42903-9) [facility] CenterBL[facility]OD CULTURE [id number] 13:39:00 Test Item Value Reference Range Interpretation Comments Blood Culture Staphylococcus Organism elvia ntified Workup (test epidermidis by DNA probeFor code = 600-7) susceptibility results, refer to culture # - [id number] Gram stain Gram positive cocci Anaerobi c Bottle (test code = 664-3) [facility] CenterCOMP. METABOLIC PANEL (35809)2020-06-02 13:10:00 Test Item Value Reference Range Interpretation Comments NA (test code = 133 mmol/L 135-145 L 0345106273) K (test code = 3.4 mmol/L 3.5-5 L 7577664080) CL (test code = 96 mmol/L 98-108 L 7580949979) CO2 TOTAL (test code = 28 mmol/L 23-31 6899436074) AGAP (test code = 2-16 4822479013) BUN (test code = 34 mg/dL 7-23 H 3408841826) GLUCOSE (test code = 135 mg/dL 70-110 H 9851136159) CREATININE (test code = 1.83 mg/dL 0.6-1.25 H 1987179221) TOTAL BILI (test code = 0.4 mg/dL 0.1-1.3 6529432604) CALCIUM (test code = 9.4 mg/dL 8.6-10.6 1240519492) T PROTEIN (test code = 6.0 g/dL 6.3-8.2 L 3311527661) ALBUMIN (test code = 3.1 g/dL 3.5-5 L 9513671211) ALK PHOS (test code = 52 U/L 34-122 1285303818) ALTv (test code = 25 U/L 5-50 1742-6) AST(SGOT) (test code = 31 U/L 13-40 1849852050) eGFR Calculation mL/min/1.73m2 (Non-) (test code = 6725633429) eGFR Calculation mL/min/1.73m2 () (test code = 3328219998) EMIR (test code = EMIR) Association of [...] tests). Lab Interpretation Abnormal (test code = 79939-9) [facility] 13:10:00 Test Item Value Reference Range Interpretation Comments MAGNESIUM (test code = 9319212420) 1.8 mg/dL 1.7-2.4 Lab Interpretation (test code = Normal 98545-0) [facility] CenterMYCOPLASMA PNEUMONIAE ANTIBODY, [id number] 11:34:00 Test Item Value Reference Range Interpretation [...] an 12 months post-infection. Performed By: YUMIKO amado[address] [place] [id number] aboratory Director: Julisa Choi MD [Aut omated message] The sy stem which generated this result transmit moshe reference range : <=0.76. The reference r martin was not used to int erpret this result as normal/abnormal . [facility] CULTURE [id number] 22:31:00 Test Item Value Reference Range Interpretation Comments Blood Culture-Aerobic Culture positive. No growth AA P revious (test code = 29641-9) See Blood prelim inary Culture Workup verified resu lt for additional was Culture I n information. Progress on 05/30/2020 at 03 19 CDT Blood Culture positive. No growth AA Previous Culture-Anaerobic See Blood preliminar y (test code = 98343-1) Culture Workup veri fied result for additional was Culture I n information. Progress on 05/30/2020 at 03 19 CDT Lab Interpretation Abnormal (test code = 81690-0) [facility] GLUCOSE (AUTOMATED)2020-06-01 21:59:00 Test Item Value Reference Range Interpretation Comments POCT GLU (test code = 2915399121) 101 mg/dL 70-110 Lab Interpretation (test code = Normal 30789-1) [facility] GLUCOSE (AUTOMATED)2020-06-01 17:53:00 Test Item Value Reference Range Interpretation Comments POCT GLU (test code = 2584844295) 184 mg/dL 70-110 H Lab Interpretation (test code = Abnormal 60691-5) [facility] CULTURE [id number] 17:20:00 Test Item Value Reference Range Interpretation Comments Blood Culture-Aerobic Culture positive. No growth AA P revious (test code = 07989-0) See Blood prelim inary Culture Workup verified resu lt for additional was Culture I n information. Progress on 05/30/2020 at 03 19 CDT Blood Culture positive. No growth AA Previous Culture-Anaerobic See Blood preliminar y (test code = 25752-3) Culture Workup veri fied result for additional was Culture I n information. Progress on 05/30/2020 at 03 19 CDT Lab Interpretation Abnormal (test code = 82060-9) [facility] GLUCOSE (AUTOMATED)2020-06-01 13:22:00 Test Item Value Reference Range Interpretation Comments POCT GLU (test code = 1027512846) 109 mg/dL 70-110 Lab Interpretation (test code = Normal 60034-8) [facility] WITH [id number] 11:12:00 Test Item Value Reference Range Interpretation [...] RDW-SD (test code = 46.0 fL 38.5-51.6 36237-7) RDW-CV (test code = 13.8 % 12.1-15.4 788-0) PLT (test code = See_Comment L [Automated 777-3) message] The sy stem which generated this result transmitted reference range : 150 - 328 10*3/ ?L. The reference r martin was not used to interpret this result as normal/abnormal . MPV (test code = 10.3 fL 9.8-13 60640-5) NRBC/100 WBC (test See_Comment [Automat ed code = 6907045744) message] The system which generated this result transmitted reference range : 0.0 - 10.0 /100 WBCs. The refer ence range was not u sed to interpret th is result as normal/abnormal . NRBC x10^3 (test code <0.01 See_Comment [Auto mated = 7003559785) message] The s ystem which generated this result transmitted reference range : 10*3/?L. The reference range was not used to interpret this result as normal/abnormal . GRAN MAT (NEUT) % 71.9 % (test code = 770-8) IMM GRAN % (test code 0.30 % = 7346470596) LYMPH % (test code = 8.0 % 736-9) MONO % (test code = 10.5 % 5905-5) EOS % (test code = 8.4 % 713-8) BASO % (test code = 0.9 % 706-2) GRAN MAT x10^3(ANC) 2.32 10*3/uL 1.99-6.95 (test code = 6711724350) IMM GRAN x10^3 (test <0.03 0-0.06 code = 0063295381) LYMPH x10^3 (test code 0.26 10*3/uL 1.09-3.23 L = 731-0) MONO x10^3 (test code 0.34 10*3/uL 0.36-1.02 L = 742-7) EOS x10^3 (test code = 0.27 10*3/uL 0.06-0.53 711-2) BASO x10^3 (test code 0.03 10*3/uL 0.01-0.09 = 704-7) Lab Interpretation Abnormal (test code = 58237-4) [facility] [id number] 11:07:00 Test Item Value Reference Range Interpretation Comments NT-proBNP (test code 13102 pg/mL See_Comment H [Autom ated = 6105077383) message] The system which generated this result transmitted reference range : <=450. The reference range was not used to interpret this result as normal/abnormal . EMIR (test code = EMIR) Biotin has been reported to cause a negative bias, interpret results relative to patient's use of biotin. Lab Interpretation Abnormal (test code = 14972-8) [facility] CenterCOMP. METABOLIC PANEL (24936)2020-06-01 11:03:00 Test Item Value Reference Range Interpretation Comments NA (test code = 136 mmol/L 135-145 4508171485) K (test code = 3.9 mmol/L 3.5-5 4885325369) CL (test code = 97 mmol/L 98-108 L 9183967687) CO2 TOTAL (test code = 30 mmol/L 23-31 3454306792) AGAP (test code = 2-16 8002113509) BUN (test code = 34 mg/dL 7-23 H 0267856547) GLUCOSE (test code = 112 mg/dL 70-110 H 6607730217) CREATININE (test code = 1.81 mg/dL 0.6-1.25 H 0106843663) TOTAL BILI (test code = 0.5 mg/dL 0.1-1.9 5138682346) CALCIUM (test code = 9.5 mg/dL 8.6-10.6 6504641228) T PROTEIN (test code = 6.2 g/dL 6.3-8.2 L 2195190992) ALBUMIN (test code = 3.2 g/dL 3.5-5 L 2392111560) ALK PHOS (test code = 58 U/L 34-122 1627015069) ALTv (test code = 32 U/L 5-50 1742-6) AST(SGOT) (test code = 38 U/L 13-40 0936415222) eGFR Calculation mL/min/1.73m2 (Non-) (test code = 9141095572) eGFR Calculation mL/min/1.73m2 () (test code = 1279232870) EMIR (test code = EMIR) Association of [...] tests). Lab Interpretation Abnormal (test code = 75407-8) [facility] CenterMAGNESIUM2020-09-13 11:03:00 Test Item Value Reference Range Interpretation Comments MAGNESIUM (test code = 8371263779) 2.0 mg/dL 1.7-2.4 Lab Interpretation (test code = Normal 92232-4) [facility] CenterAC[facility]ARE VENOUS BLOOD [id number] 10:21:00 Test Item Value Reference Range Interpretation Comments PH (test code = 7.32-7.42 0586969841) PCO2 GIFTY (test code = See_Comment [Auto mated message] The 8573634357) system which [employer] nerated this result transmit moshe reference range : 41 - 51 mmHg. The refer ence range was not used to interpret this result as normal/abnormal . PO2 GIFTY (test code = See_Comment [Autom ated message] The 6193148726) system which [employer] nerated this result transmit moshe reference range : 25 - 40 mmHg. The refer ence range was not used to interpret this result as normal/abnormal . HCO3 GIFTY (test code = See_Comment [Auto mated message] The 3660693698) system which [employer] nerated this result transmit moshe reference range : 24 - 28 mEq/L. The refe rence range was not used to interpret this result as normal/abnormal . AC VBE(BEAKER) (test mEq/L code = 6677727486) [facility] GLUCOSE (AUTOMATED)2020-06-01 01:53:00 Test Item Value Reference Range Interpretation Comments POCT GLU (test code = 2713095765) 124 mg/dL 70-110 H Lab Interpretation (test code = Abnormal 09181-4) [facility] GLUCOSE (AUTOMATED)2020-05-31 22:35:00 Test Item Value Reference Range Interpretation Comments POCT GLU (test code = 6025438863) 105 mg/dL 70-110 Lab Interpretation (test code = Normal 40041-3) [facility] GLUCOSE (AUTOMATED)2020-05-31 17:52:00 Test Item Value Reference Range Interpretation Comments POCT GLU (test code = 3477463299) 106 mg/dL 70-110 Lab Interpretation (test code = Normal 52856-1) [facility] CenterAMMONIA, [id number] 17:33:00 Test Item Value Reference Range Interpretation Comments AMMONIA (test code = 0435182064) <9 9-33 L Lab Interpretation (test code = Abnormal 46192-6) [facility] CenterGRAM POSITIVE BLOOD PATHOGENS DNA [id number] 14:44:00 Test Item Value Reference Range Interpretation Comments Coagulase Negative Positive Negative A Staphylococcus (test code = 62865-2) EMIR (test code = EMIR) Coagulase negative [...] contact the Antimicrobial Stewardship Program with questions.Pager: ?[phone] Testing included eleven identification and three resistance marker targets. Lab Interpretation Abnormal (test code = 61324-4) [facility] GLUCOSE (AUTOMATED)2020-05-31 13:09:00 Test Item Value Reference Range Interpretation Comments POCT GLU (test code = 0471983760) 154 mg/dL 70-110 H Lab Interpretation (test code = Abnormal 00267-3) [facility] CenterURINE [id number] 12:11:00 Test Item Value Reference Range Interpretation Comments URINE CULTURE (test No aerobic growth (< code = 630-4) 1000 CFU/mL) [facility] CenterN-TERMINAL [id number] 11:51:00 Test Item Value Reference Range Interpretation Comments NT-proBNP (test code 81211 pg/mL See_Comment H [Autom ated = 5871941401) message] The system which generated this result transmitted reference range : <=450. The reference range was not used to interpret this result as normal/abnormal . EMIR (test code = EMIR) Biotin has been reported to cause a negative bias, interpret results relative to patient's use of biotin. Lab Interpretation Abnormal (test code = 17515-0) [facility] CenterURIC [id number] 11:25:00 Test Item Value Reference Range Interpretation Comments URIC ACID (test code = 2840370605) 9.0 mg/dL 3.6-8 H Lab Interpretation (test code = Abnormal 19027-8) [facility] WITH [id number] 11:02:00 Test Item Value Reference Range Interpretation [...] RDW-SD (test code = 47.7 fL 38.5-51.6 52465-6) RDW-CV (test code = 14.0 % 12.1-15.4 788-0) PLT (test code = See_Comment L [Automated 777-3) message] The sy stem which generated this result transmitted reference range : 150 - 328 10*3/ ?L. The reference r martin was not used to interpret this result as normal/abnormal . MPV (test code = 10.5 fL 9.8-13 59386-4) NRBC/100 WBC (test See_Comment [Automat ed code = 8517683006) message] The system which generated this result transmitted reference range : 0.0 - 10.0 /100 WBCs. The refer ence range was not u sed to interpret th is result as normal/abnormal . NRBC x10^3 (test code <0.01 See_Comment [Auto mated = 3712286523) message] The s ystem which generated this result transmitted reference range : 10*3/?L. The reference range was not used to interpret this result as normal/abnormal . GRAN MAT (NEUT) % 81.0 % (test code = 770-8) IMM GRAN % (test code 0.40 % = 9960673077) LYMPH % (test code = 4.8 % 736-9) MONO % (test code = 11.5 % 5905-5) EOS % (test code = 1.7 % 713-8) BASO % (test code = 0.6 % 706-2) GRAN MAT x10^3(ANC) 4.23 10*3/uL 1.99-6.95 (test code = 5600559036) IMM GRAN x10^3 (test <0.03 0-0.06 code = 9513435882) LYMPH x10^3 (test code 0.25 10*3/uL 1.09-3.23 L = 731-0) MONO x10^3 (test code 0.60 10*3/uL 0.36-1.02 = 742-7) EOS x10^3 (test code = 0.09 10*3/uL 0.06-0.53 711-2) BASO x10^3 (test code 0.03 10*3/uL 0.01-0.09 = 704-7) Lab Interpretation Abnormal (test code = 52521-6) [facility] CenterTROPONIN [id number] 10:45:00 Test Item Value Reference Range Interpretation Comments TROPONIN I (test 0.167 ng/mL See_Comment H [Automated code = 5184859884) message] The system which generated this result [...] ? Lab Interpretation Abnormal (test code = 91924-5) [facility] CenterCOMP. METABOLIC PANEL (09347)2020-05-31 10:35:00 Test Item Value Reference Range Interpretation Comments NA (test code = 133 mmol/L 135-145 L 8720251472) K (test code = 3.4 mmol/L 3.5-5 L 5101041901) CL (test code = 95 mmol/L 98-108 L 4136690599) CO2 TOTAL (test code = 29 mmol/L 23-31 5131385525) AGAP (test code = 2-16 2769173127) BUN (test code = 36 mg/dL 7-23 H 7246801491) GLUCOSE (test code = 136 mg/dL 70-110 H 4638563835) CREATININE (test code = 1.71 mg/dL 0.6-1.25 H 3156629720) TOTAL BILI (test code = 0.8 mg/dL 0.1-1.2 7917712964) CALCIUM (test code = 9.4 mg/dL 8.6-10.6 1153376229) T PROTEIN (test code = 6.5 g/dL 6.3-8.2 3222501217) ALBUMIN (test code = 3.4 g/dL 3.5-5 L 9153114601) ALK PHOS (test code = 59 U/L 34-122 7209419106) ALTv (test code = 35 U/L 5-50 1742-6) AST(SGOT) (test code = 42 U/L 13-40 H 1016999780) eGFR Calculation mL/min/1.73m2 (Non-) (test code = 5655019315) eGFR Calculation mL/min/1.73m2 () (test code = 1673204214) EMIR (test code = EMIR) Association of [...] tests). Lab Interpretation Abnormal (test code = 69577-7) [facility] CenterMAGNESIUM2020-09-12 10:35:00 Test Item Value Reference Range Interpretation Comments MAGNESIUM (test code = 7537085675) 1.4 mg/dL 1.7-2.4 L Lab Interpretation (test code = Abnormal 76129-1) [facility] GLUCOSE (AUTOMATED)2020-05-30 21:17:00 Test Item Value Reference Range Interpretation Comments POCT GLU (test code = 5846813981) 105 mg/dL 70-110 Lab Interpretation (test code = Normal 96560-9) [facility] CenterPNEUMOCOCCAL [id number] 19:20:00 Test Item Value Reference Range Interpretation Comments S. pneumoniae antigen Positive Negative A (test code = 2849699329) EMIR (test code = EMIR) S. pneumoniae vaccine may give false positive results in urine with this assay in the 48 hours following vaccination. Lab Interpretation (test Abnormal code = 89686-0) [facility] CenterLEGIONELLA URINARY ANTIGEN [id number] 19:20:00 Test Item Value Reference Range Interpretation Comments Legionella Urinary Negative Negative Antigen (test code = 6700055020) EMIR (test code = EMIR) Negative for [...] test. Lab Interpretation (test Normal code = 26375-5) [facility] CenterCORTISOL [id number] 18:48:00 Test Item Value Reference Range Interpretation Comments SHAYY AM (test code = 23.8 ug/dL 4.5-23 H 9359748384) EMIR (test code = EMIR) Biotin has been reported to cause a positive bias, interpret results relative to patient's use of biotin. Lab Interpretation (test Abnormal code = 82502-5) [facility] GLUCOSE (AUTOMATED)2020-05-30 17:17:00 Test Item Value Reference Range Interpretation Comments POCT GLU (test code = 2921944963) 117 mg/dL 70-110 H Lab Interpretation (test code = Abnormal 66730-3) [facility] CenterTROPONIN [id number] 17:14:00 Test Item Value Reference Range Interpretation Comments TROPONIN I (test 0.222 ng/mL See_Comment H [Automated code = 6179855611) message] The system which generated this result [...] ? Lab Interpretation Abnormal (test code = 01275-7) [facility] CenterOSMOLALITY [id number] 16:53:00 Test Item Value Reference Range Interpretation Comments OSMO U (test code = See_Comment [Automa moshe message] 7019986980) The system [employer] generated this result transmitted ref erence range: 50-1,100 mOsm/kg. The re ference range was not u sed to interpret this result as normal/abnor mal. Lab Interpretation (test Normal code = 17770-9) [facility] CenterVITAMIN D, [id number] 16:43:00 Test Item Value Reference Range Interpretation Comments VIT D 25OH (test code = 29 ng/mL 25-80 74068-3) EMIR (test code = EMIR) Deficiency: <20 ng/mLInsufficiency : 20-24 ng/mLOptimal: 25-80 ng/mL Lab Interpretation (test Normal code = 40057-5) [facility] CenterUREA NITROGEN, URINE [id number] 15:44:00 Test Item Value Reference Range Interpretation Comments UREA N UR (test code = 0008389217) 114 mg/dL [facility] CenterCT THORAX WO [id number] 15:23:12 1. ?Pulmonary edema with moderate volume [...] sagittal MPR images were generated and reviewed.(Display eomgl-zt-glsv = 35 cm) FINDINGS: Lower neck/thyroid: Unremarkable. [...] sagittal MPR images were generated and reviewed.(Display fidiq-vd-jwif = 35 cm)FINDINGS:Lower neck/thyroid: Unremarkable.Lungs: Centrilobular septal [...] reviewed this study and agree with theabove report.[facility] CenterPOCT GLUCOSE (AUTOMATED) 2020-05-30 14:53:00 Test Item Value Reference Range Interpretation Comments POCT GLU (test code = 0825214743) 100 mg/dL 70-110 Lab Interpretation (test code = Normal 87150-8) [facility] CenterVITAMIN B12, [id number] 13:07:00 Test Item Value Reference Range Interpretation Comments VIT B12 (test code = 412 pg/mL 240-930 0991768876) EMIR (test code = EMIR) Biotin has been reported to cause a positive bias, interpret results relative to patient's use of biotin. Lab Interpretation (test Normal code = 74311-0) [facility] CenterFOLATE2020-09-11 13:07:00 Test Item Value Reference Range Interpretation Comments FOLATE SER (test code = 8.4 ng/mL 3-20 Biot in has been 6537624515) reported to cau se a positive bias, interpret resul ts relative to patient's use o f biotin. Lab Interpretation (test Normal code = 47671-6) [facility] CenterCORONAVIRUS COVID-19 [id number] 12:49:00 Test Item Value Reference Range Interpretation Comments SARS-CoV-2 PCR (test Not Detected Not Detected code = 37153-2) EMIR (test code = EMIR) Cepheid Xpert ?Xpress SARS-CoV-2 Assay is a rapid, real-time RT-PCR test intended for the qualitative detection of nucleic acid from the SARS-CoV-2 in nasopharyngeal (SPARE FIXER) specimens. It is used under Emergency Use [...] indicated. Lab Interpretation Normal (test code = 87673-4) [facility] CenterRESPIRATORY PANEL BY [id number] 12:44:00 Test Item Value Reference Range Interpretation Comments Adenovirus (test code = Negative Negative 22499-1) Coronavirus HKU1 (test Negative Negative code = 21154-4) Coronavirus NL63 (test Negative Negative code = 36913-8) Coronavirus 229E (test Negative Negative code = 26550-9) Coronavirus OC43 (test Negative Negative code = 12345-4) Human Metapneumovirus Negative Negative (test code = 47978-7) Human Negative Negative Rhinovirus/Enterovirus (test code = 40466-5) Influenza A (test code = Negative Negative 18336-3) Influenza B (test code = Negative Negative 54894-9) Parainfluenza Virus 1 Negative Negative (test code = 69449-1) Parainfluenza Virus 2 Negative Negative (test code = 07011-9) Parainfluenza Virus 3 Negative Negative (test code = 39351-7) Parainfluenza Virus 4 Negative Negative (test code = 05088-9) Respiratory Syncytial Negative Negative Virus (test code = 88841-0) Bordetella parapertussis Negative Negative (test code = 41077-7) Bordetella pertussis Negative Negative (test code = 73705-6) Chlamydia pneumoniae Negative Negative (test code = 94006-4) Mycoplasma pneumoniae Negative Negative (test code = 82621-5) EMIR (test code = EMIR) Negative:A negative result does not rule-out infection. ?This assay does not test for all potential infectious agents. ? Positive:A positive test result does not necessarily indicate the presence of viable organism. ? Lab Interpretation (test Normal code = 56320-1) [facility] CenterPROCALCITONIN2020-09-11 12:14:00 Test Item Value Reference Range Interpretation Comments Procalcitonin (test 0.06 ng/mL <0.07 code = 7566465482) EMIR (test code = EMIR) INTERPRETATION OF [...] lung abscess/empyema. For further information please refer to:[email or web address] Lab Interpretation Normal (test code = 61992-5) [facility] CenterOSMOLALITY [id number] 11:49:00 Test Item Value Reference Range Interpretation Comments OSMOLALITY (test code = See_Comment [Au tomated message] 8161150222) The system [employer] generated this result transmitted ref erence range: 278 - 30 5 mOsm/kg. The re ference range was not u sed to interpret this result as normal/abnor mal. Lab Interpretation (test Normal code = 07481-8) [facility] CenterN-TERMINAL [id number] 11:19:00 Test Item Value Reference Range Interpretation Comments NT-proBNP (test code 61489 pg/mL See_Comment H [Autom ated = 9008514149) message] The system which generated this result transmitted reference range : <=450. The reference range was not used to interpret this result as normal/abnormal . EMIR (test code = EMIR) Biotin has been reported to cause a negative bias, interpret results relative to patient's use of biotin. Lab Interpretation Abnormal (test code = 98110-6) [facility] CenterSEDIMENTATION [id number] 11:01:00 Test Item Value Reference Range Interpretation Comments ESR (test code = See_Comment H [Automated message] 9817952262) The system [employer] generated this result transmitted ref erence range: 0 - 10 m m/HR. The reference r martin was not used to interpret this result as normal/abnor mal. Lab Interpretation (test Abnormal code = 83458-2) [facility] CenterTROPONIN [id number] 10:57:00 Test Item Value Reference Range Interpretation Comments TROPONIN I (test 0.233 ng/mL See_Comment H [Automated code = 3867407212) message] The system which generated this result [...] ? Lab Interpretation Abnormal (test code = 07447-2) [facility] CenterIRON [id number] 10:53:00 Test Item Value Reference Range Interpretation Comments IRON (test code = 1741686362) 37 ug/dL 50-160 L TIBC (test code = 4657388093) 259 ug/dL 250-410 % FE SAT (test code = 0264158289) 14 % 20-50 L Lab Interpretation (test code = Abnormal 39457-8) [facility]. METABOLIC PANEL (16304)2020-05-30 10:44:00 Test Item Value Reference Range Interpretation Comments NA (test code = 135 mmol/L 135-145 7321917553) K (test code = 4.3 mmol/L 3.5-5 8704312428) CL (test code = 98 mmol/L 98-108 8790660404) CO2 TOTAL (test code = 26 mmol/L 23-31 7840102915) AGAP (test code = 2-16 8183571745) BUN (test code = 29 mg/dL 7-23 H 5974581216) GLUCOSE (test code = 127 mg/dL 70-110 H 0174200521) CREATININE (test code = 1.38 mg/dL 0.6-1.25 H 9819206234) TOTAL BILI (test code = 0.9 mg/dL 0.1-1.5 5258428618) CALCIUM (test code = 9.4 mg/dL 8.6-10.6 4267074405) T PROTEIN (test code = 6.6 g/dL 6.3-8.2 1292690909) ALBUMIN (test code = 3.7 g/dL 3.5-5 6331105974) ALK PHOS (test code = 65 U/L 34-122 3746586008) ALTv (test code = 28 U/L 5-50 1742-6) AST(SGOT) (test code = 42 U/L 13-40 H 1732417263) eGFR Calculation mL/min/1.73m2 (Non-) (test code = 8333461715) eGFR Calculation mL/min/1.73m2 () (test code = 5737485557) EMIR (test code = EMIR) Association of [...] tests). Lab Interpretation Abnormal (test code = 04372-1) [facility] CenterMAGNESIUM2020-09-11 10:44:00 Test Item Value Reference Range Interpretation Comments MAGNESIUM (test code = 1992843291) 1.4 mg/dL 1.7-2.4 L Lab Interpretation (test code = Abnormal 03901-6) [facility] CenterURIC [id number] 10:44:00 Test Item Value Reference Range Interpretation Comments URIC ACID (test code = 3256881825) 7.8 mg/dL 3.6-8 Lab Interpretation (test code = Normal 99428-6) [facility] CenterPROTEIN CREAT RATIO URINE [id number] 10:29:00 Test Item Value Reference Range Interpretation Comments T. PROT U (test code = 104 mg/dL 2888-6) CREAT U (test code = 14.4 mg/dL 8674773993) Protein/Creatinine Ratio 0.0-2.0 H Urine (test code = 2930937625) EMIR (test code = EMIR) Random Urine Total Protein Reference Ranges Random Specimen: ? Less than 10 mg/dLFirst Morning Specimen: ? ?Less than 20 mg/dL ? Lab Interpretation (test Abnormal code = 04390-9) [facility] WITH [id number] 10:28:00 Test Item Value Reference Range Interpretation [...] RDW-SD (test code = 47.6 fL 38.5-51.6 78321-6) RDW-CV (test code = 14.2 % 12.1-15.4 788-0) PLT (test code = See_Comment L [Automated 777-3) message] The sy stem which generated this result transmitted reference range : 150 - 328 10*3/ ?L. The reference r martin was not used to interpret this result as normal/abnormal . MPV (test code = 10.5 fL 9.8-13 91353-2) NRBC/100 WBC (test See_Comment [Automat ed code = 8511592381) message] The system which generated this result transmitted reference range : 0.0 - 10.0 /100 WBCs. The refer ence range was not u sed to interpret th is result as normal/abnormal . NRBC x10^3 (test code <0.01 See_Comment [Auto mated = 6195163121) message] The s ystem which generated this result transmitted reference range : 10*3/?L. The reference range was not used to interpret this result as normal/abnormal . GRAN MAT (NEUT) % 83.1 % (test code = 770-8) IMM GRAN % (test code 0.40 % = 6962819406) LYMPH % (test code = 3.7 % 736-9) MONO % (test code = 11.8 % 5905-5) EOS % (test code = 0.4 % 713-8) BASO % (test code = 0.6 % 706-2) GRAN MAT x10^3(ANC) 4.52 10*3/uL 1.99-6.95 (test code = 5692482190) IMM GRAN x10^3 (test <0.03 0-0.06 code = 6819522674) LYMPH x10^3 (test code 0.20 10*3/uL 1.09-3.23 L = 731-0) MONO x10^3 (test code 0.64 10*3/uL 0.36-1.02 = 742-7) EOS x10^3 (test code = <0.03 0.06-0.53 L 711-2) BASO x10^3 (test code 0.03 10*3/uL 0.01-0.09 = 704-7) Lab Interpretation Abnormal (test code = 52837-2) [facility] CenterSODIUM, URINE [id number] 10:25:00 Test Item Value Reference Range Interpretation Comments NA URINE (test code = 0653858861) 123 mmol/L [facility] CenterPROTHROMBIN TIME / [id number] 08:09:00 Test Item Value Reference Range Interpretation Comments PROTIME PATIENT (test See_Comment [Auto mated message] code = 5964-2) The system ich generated this result transmitted ref erence range: 12.0 - 1 4.7 Seconds. The re ference range was not u sed to interpret this result as normal/abnor mal. INR (test code = 6301-6) Nor mal INR <1.1; Warfarin Therap eutic range 2.0 to 3. 0 or 2.5 to 3.5, dep ending upon the indica tions. Lab Interpretation (test Normal code = 29570-6) [facility] CenterGLYCOSYLATED HEMOGLOBIN (A1C)2020-05-30 07:33:00 Test Item Value Reference Range Interpretation Comments HGB A1C (test code = 5.4 % 4-6 4548-4) EMIR (test code = EMIR) %A1C (NGSP) Interpretation (ADA)4.8-5.6 ? ? Normal or (Non-Diabetic Range)5.7-6.4 ? ? Increased Risk (Pre-Diabetic)>6.5 ?Diabetes Indicated Lab Interpretation Normal (test code = 59599-8) [facility] CenterLIPID PANEL (53754)(TOTAL CHOLESTEROL, TRIGLYCERIDES, HDL)2020-05-30 07:20:00 Test Item Value Reference Range Interpretation Comments CHOL (test code = 174 mg/dL 120-200 6316079930) HDL (test code = 37 mg/dL >40 L 0826802189) HDLC RATIO (test code = See_Comment [Au tomated message] 8891509276) The system [employer] generated this result transmit moshe reference range : <=5.0. The refe rence range was not u sed to interpret th is result as normal/abnormal . TRIG (test code = 85 mg/dL 30-170 3818451671) LDL CHOL (test code = 120 mg/dL See_Comment [Auto mated message] 48960-1) The system [employer] generated this result transmit moshe reference range : <=160. The refe rence range was not u sed to interpret th is result as normal/abnormal . VLDL (test code = 17 mg/dL 5-60 5563793912) Lab Interpretation (test Abnormal code = 69493-1) [facility] CenterCREATINE [id number] 07:19:00 Test Item Value Reference Range Interpretation Comments CK (test code = 0400400620) 88 U/L 33-194 Lab Interpretation (test code = Normal 76123-9) [facility] CenterURIC [id number] 07:19:00 Test Item Value Reference Range Interpretation Comments URIC ACID (test code = 3727632202) 7.9 mg/dL 3.6-8 Lab Interpretation (test code = Normal 13773-1) [facility]IN [id number] 06:48:00 Test Item Value Reference Range Interpretation Comments FERRITIN (test code = 73.2 ng/mL 18-464 9987255565) EMIR (test code = EMIR) Biotin has been reported to cause a negative bias, interpret results relative to patient's use of biotin. Lab Interpretation (test Normal code = 04062-3) [facility] CenterTHYROID STIMULATING [id number] 06:46:00 Test Item Value Reference Range Interpretation Comments TSH (test code = See_Comment [Automated message] 0906036479) The system W[employer] generated this result transmitted ref erence range: 0.45 - 4 .70 mIU/L. The refe rence range was not u sed to interpret this result as normal/abnor mal. Lab Interpretation (test Normal code = 23932-8) [facility]IUM2020-09-11 06:19:00 Test Item Value Reference Range Interpretation Comments MAGNESIUM (test code = 5292943335) 1.6 mg/dL 1.7-2.4 L Lab Interpretation (test code = Abnormal 38713-4) [facility]PHOSPHORUS2020-09-11 06:19:00 Test Item Value Reference Range Interpretation Comments PHOSPHORUS (test code = 4526494613) 2.9 mg/dL 2.5-5 Lab Interpretation (test code = Normal 30926-2) [facility] CenterURINALYSIS2020-09-11 04:26:00 Test Item Value Reference Range Interpretation Comments APPEARANCE (test code = Clear Clear 3420360132) COLOR (test code = Yellow Yellow 4602224534) PH (test code = 4.8-8.0 1511931278) SP GRAVITY (test code = 1.003-1.030 2097818559) GLU U QUAL (test code = Normal Normal 7081965572) BLOOD (test code = 1+ Negative A 5262749418) KETONES (test code = Negative Negative 7204429496) PROTEIN (test code = 500 mg/dL Negative A 2887-8) UROBILIN (test code = Normal Normal 3197252279) BILIRUBIN (test code = Negative Negative 6720291909) NITRITE (test code = Negative Negative 6424834390) LEUK MARLENA (test code = Negative Negative 6115944832) RBC/HPF (test code = See_Comment H [Autom ated message] 9479389224) The system [employer] generated this result transmit moshe reference range : 0 - 3 HPF. The refe rence range was not u sed to interpret th is result as normal/abnormal . WBC/HPF (test code = See_Comment [Autom ated message] 6301378295) The system [employer] generated this result transmit moshe reference range : 0 - 5 HPF. The refe rence range was not u sed to interpret th is result as normal/abnormal . BACTERIA (test code = Few Negative A 6161043371) MUCOUS (test code = Slight Negative LPF A 2517149501) HYAL CAST (test code = See_Comment H [Aut omated message] 6790387161) The system [employer] generated this result transmit moshe reference range : <=2 LPF. The refere nce range was not u sed to interpret th is result as normal/abnormal . GRAN CASTS (test code = See_Comment H [Au tomated message] 7314463042) The system [employer] generated this result transmit moshe reference range : <=1 LPF. The refere nce range was not u sed to interpret th is result as normal/abnormal . Lab Interpretation (test Abnormal code = 15456-6) [facility] CenterXR CHEST 1 [id number] 03:33:16 Multifocal interstitial and airspace opacities are concerning forbronchopneumonia. These findings can also be seen with atypical infectiousprocess, including COVID-19 pneumonia. Disclaimer: Generally,the findings on chest imaging in COVID-19 are notspecific, and overlap with other infections, including influenza, H1N1,SARS and MERS.According to the Centers for Disease Control (CDC) and recent statement ofthe [employer], viral testing remains the [...] Disease Control (CDC) and recent statement ofthe [employer], viral testing remains the only specificmethod of diagnosis. Confirmation with the viral test is required, even ifradiologic findings are suggestive of COVID-[address]Preliminary Report Dictated by Resident: Ming Ivan MD., have reviewed this study and agree with the abovereport.[facility] CenterCOVID-19 (ID NOW RAPID TESTING)2020-05-30 01:54:00 Test Item Value Reference Range Interpretation Comments SARS-CoV-2 Rapid ID NOW Not Detected Not Detected (test code = 99990-6) EMIR (test code = EMIR) ID NOW COVID-19 Assay is an isothermal nucleic acid amplification test intended for the qualitative detection of nucleic acid from SARS-CoV-2 viral RNA in nasopharyngeal (SPARE FIXER) specimens. It is used under Emergency Use [...] indicated. Lab Interpretation Normal (test code = 52297-6) [facility] CenterTROPONIN [id number] 01:52:00 Test Item Value Reference Range Interpretation Comments TROPONIN I (test 0.148 ng/mL See_Comment H [Automated code = 1141484787) message] The system which generated this result [...] ? Lab Interpretation Abnormal (test code = 05614-4) [facility] CenterN-TERMINAL [id number] 01:49:00 Test Item Value Reference Range Interpretation Comments NT-proBNP (test code 59740 pg/mL See_Comment H [Autom ated = 1321977479) message] The system which generated this result transmitted reference range : <=450. The reference range was not used to interpret this result as normal/abnormal . EMIR (test code = EMIR) Biotin has been reported to cause a negative bias, interpret results relative to patient's use of biotin. Lab Interpretation Abnormal (test code = 38631-3) [facility]. METABOLIC PANEL (89794)2020-05-30 01:41:00 Test Item Value Reference Range Interpretation Comments NA (test code = 135 mmol/L 135-145 1072070218) K (test code = 4.0 mmol/L 3.5-5 6749070390) CL (test code = 98 mmol/L 98-108 3898147016) CO2 TOTAL (test code = 27 mmol/L 23-31 4662454865) AGAP (test code = 2-16 7567716845) BUN (test code = 27 mg/dL 7-23 H 2613346866) GLUCOSE (test code = 143 mg/dL 70-110 H 9510356482) CREATININE (test code = 1.51 mg/dL 0.6-1.25 H 7787173567) TOTAL BILI (test code = 0.6 mg/dL 0.1-1.1 1377491228) CALCIUM (test code = 9.5 mg/dL 8.6-10.6 6065226759) T PROTEIN (test code = 6.9 g/dL 6.3-8.2 7612650767) ALBUMIN (test code = 3.9 g/dL 3.5-5 1273161028) ALK PHOS (test code = 78 U/L 34-122 3311499668) ALTv (test code = 29 U/L 5-50 1742-6) AST(SGOT) (test code = 37 U/L 13-40 2897380553) eGFR Calculation mL/min/1.73m2 (Non-) (test code = 4479374234) eGFR Calculation mL/min/1.73m2 () (test code = 6059251800) EMIR (test code = EMIR) Association of [...] tests). Lab Interpretation Abnormal (test code = 44748-2) [facility] HEAD WO [id number] 01:40:13 No acute intracranial hemorrhage or mass [...] of a left posterior ethmoid air cell. [facility], Radiant Results Inft User - 05/29/2020 8:52 [...] ethmoid aircell.IMPRESSIONNo acute intracranial hemorrhage or mass effect.[facility] GLUCOSE (AUTOMATED)2020-05-30 01:23:00 Test Item Value Reference Range Interpretation Comments POCT GLU (test code = 1293662419) 130 mg/dL 70-110 H Lab Interpretation (test code = Abnormal 46884-8) [facility] WITH [id number] 01:22:00 Test Item Value Reference Range Interpretation [...] RDW-SD (test code = 46.8 fL 38.5-51.6 26104-9) RDW-CV (test code = 13.9 % 12.1-15.4 788-0) PLT (test code = See_Comment [Automated 777-3) message] The sy stem which generated this result transmitted reference range : 150 - 328 10*3/ ?L. The reference r martin was not used to interpret this result as normal/abnormal . MPV (test code = 9.9 fL 9.8-13 15629-5) NRBC/100 WBC (test See_Comment [Automat ed code = 7941024806) message] The system which generated this result transmitted reference range : 0.0 - 10.0 /100 WBCs. The refer ence range was not u sed to interpret th is result as normal/abnormal . NRBC x10^3 (test code <0.01 See_Comment [Auto mated = 1554081661) message] The s ystem which generated this result transmitted reference range : 10*3/?L. The reference range was not used to interpret this result as normal/abnormal . GRAN MAT (NEUT) % 82.3 % (test code = 770-8) IMM GRAN % (test code 0.50 % = 8299103302) LYMPH % (test code = 5.5 % 736-9) MONO % (test code = 10.6 % 5905-5) EOS % (test code = 0.6 % 713-8) BASO % (test code = 0.5 % 706-2) GRAN MAT x10^3(ANC) 5.23 10*3/uL 1.99-6.95 (test code = 9300309720) IMM GRAN x10^3 (test 0.03 10*3/uL 0-0.06 code = 1956845579) LYMPH x10^3 (test code 0.35 10*3/uL 1.09-3.23 L = 731-0) MONO x10^3 (test code 0.67 10*3/uL 0.36-1.02 = 742-7) EOS x10^3 (test code = 0.04 10*3/uL 0.06-0.53 L 711-2) BASO x10^3 (test code 0.03 10*3/uL 0.01-0.09 = 704-7) Lab Interpretation Abnormal (test code = 05412-0) [facility] CenterAC ABG + LACTIC [id number] 01:14:00 Test Item Value Reference Range Interpretation Comments PH (test code = 2) 7.35-7.45 PCO2 (test code = See_Comment [Automat ed 7107914308) message] The sy stem which generated this result transmitted reference range : 35 - 45 mmHg. The reference range was not used to interpret this result as normal/abnormal . PO2 (test code = See_Comment H [Automated 6929341580) message] The sy stem which generated this result transmitted reference range : 80 - 100 mmHg. The reference range was not used to interpret this result as normal/abnormal . HCO3 (test code = See_Comment [Automate d 8867920264) message] The sy stem which generated this result transmitted reference range : 22 - 26 mEq/L. The reference range was not used to interpret this result as normal/abnormal . BE (test code = See_Comment [Automated 2389078634) message] The sy stem which generated this result transmitted reference range : -3.0 - 3.0 mEq/ L. The reference r martin was not used to interpret this result as normal/abnormal . LACTIC ACID (test code 1.10 mmol/L = 2954800765) Lab Interpretation Abnormal (test code = 23352-7) [facility] CenterPO[facility] GLUCOSE(AGE >30DAYS)2020-05-30 01:04:00 Test Item Value Reference Range Interpretation Comments POCT Glu (age>30days) (test code = 130 mg/dL 70-110 A 3342) Lab Interpretation (test code = Abnormal 11181-5) [facility]
[2022-01-27] MEDS ORDERED: ASPIRIN 81 MG CHEWABLE TABLET ONE (21:32)
[2022-01-27] MEDS ORDERED: NITROGLYCERIN 0.4 MG/TAB SL ONE (21:32)
[2022-01-27 21:40] LABS: Absolute Lymphocytes (CBC) 0.3 K/uL (0.7-4.9); Hematocrit 31.4 % (39.6-49.0); Lymphocytes % 4.4 % (15.3-44.8); RBC Red Blood Cell Count 3.54 M/uL (4.33-5.43)
--- NOTE | 2022-01-27 21:43 | RAD REPORT ---
EXAM DESCRIPTION: Daniel Single View01/27/2022 9:33 pm CLINICAL HISTORY: Chest pain COMPARISON: January 19, 2022 FINDINGS: The lungs appear clear of acute infiltrate. The heart is mildly enlarged. Pacemaker leads are in place. IMPRESSION: No acute abnormalities displayed
--- NOTE | 2022-01-27 23:03 | EDPHYS ---
Physician Documentation [facility] Name: Jimbo Cat Age: 81 yrs Sex: Male : 1940 Arrival Date: 01/27/2022 Time: 20:54 Bed 4 Private MD: ED Physician Terry Sanderson HPI: 01/27 22:04 This 81 yrs old Male presents to ER via EMS with complaints of Chest Pain. jr8 22:04 The patient or guardian reports chest pain that is located primarily in the substernal jr8 area. Onset: acutely, today. The pain does not radiate. Associated signs and symptoms: Pertinent positives: shortness of breath. The chest pain is described as a pressure. Duration: The patient or guardian reports a single episode, that is still ongoing. Severity of pain: At its worst the pain was moderate in the emergency department the pain is unchanged. The patient has experienced similar episodes in the past, a few times. The patient has not recently seen a physician. Historical: - Allergies: 20:55 No Known Allergies; jb4 - Home Meds: 20:55 albuterol sulfate 2.5 mg /3 mL (0.083 %) Inhl nebu [Active]; amiodarone 400 mg Oral tab jb4 1 tab once daily [Active]; atorvastatin 40 mg Oral tab 1 tab once daily [Active]; Entresto 49-51 mg Oral tab 1 tab 2 times per day [Active]; Furosemide Oral once daily [Active]; metoprolol succinate 25 mg Oral CSpX 1 cap once daily [Active]; - PMHx: 20:55 Congestive heart failure; CVA; diabetes mellitus; Myocardial infarction; jb4 - PSHx: 20:55 Appendectomy; Pacemaker/Defibrillator; jb4 ROS: 22:04 Eyes: Negative for injury, pain, redness, and discharge, ENT: Negative for injury, jr8 pain, and discharge, Neck: Negative for injury, pain, and swelling, Abdomen/GI: Negative for abdominal pain, nausea, vomiting, diarrhea, and constipation, Back: Negative for injury and pain, MS/Extremity: Negative for injury and deformity, Skin: Negative for injury, rash, and discoloration, Neuro: Negative for headache, weakness, numbness, tingling, and seizure. 22:04 Cardiovascular: Positive for chest pain, Negative for edema, orthopnea, palpitations, paroxysmal nocturnal dyspnea. 22:04 Respiratory: Positive for shortness of breath. Exam: 22:04 Constitutional: This is a well developed, well nourished patient who is awake, alert, jr8 and in no acute distress. Neck: Trachea midline, no thyromegaly or masses palpated, and no cervical lymphadenopathy. Supple, full range of motion without nuchal rigidity, or vertebral point tenderness. No Meningismus. Cardiovascular: Regular rate and rhythm with a normal S1 and S2. No gallops, murmurs, or rubs. Normal PMI, no JVD. No pulse deficits. Respiratory: Lungs have equal breath sounds bilaterally, clear to auscultation and percussion. No rales, rhonchi or wheezes noted. No increased work of breathing, no retractions or nasal flaring. Abdomen/GI: Soft, non-tender, with normal bowel sounds. No distension or tympany. No guarding or rebound. No evidence of tenderness throughout. Skin: Warm, dry with normal turgor. Normal color with no rashes, no lesions, and no evidence of cellulitis. MS/ Extremity: Pulses equal, no cyanosis. Neurovascular intact. Full, normal range of motion. Neuro: Awake and alert, GCS 15, oriented to person, place, time, and situation. Cranial nerves II-XII grossly intact. Motor strength 5/5 in all extremities. Sensory grossly intact. Vital Signs: 20:54 BP 146 / 76; Pulse 66; Resp 25; Temp 98.4; Pulse Ox 98% on R/A; Weight 63.5 kg (R); jb4 Height 5 ft. 3 in. (160.02 cm); 22:35 BP 129 / 76; Pulse 61; Resp 16 S; Pulse Ox 100% on 2 lpm NC; as6 23:20 BP 136 / 69; Pulse 61; Resp 21; Pulse Ox 100% on 2 lpm NC; jb4 20:54 Body Mass Index 24.80 (63.50 kg, 160.02 cm) jb4 MDM: 21:06 Patient medically screened. jr8 22:04 The patient was given aspirin in the Emergency Department. Data reviewed: vital signs, 8 nurses notes, lab test result(s), EKG, radiologic studies, plain films. Data interpreted: Pulse oximetry: on room air is 98 %. Interpretation: normal. Counseling: I had a detailed discussion with the patient and/or guardian regarding: the historical points, exam findings, and any diagnostic results supporting the discharge/admit diagnosis, lab results, radiology results. 01/27 20:58 Order name: Basic Metabolic Panel; Complete Time: 23:32 as6 01/27 20:58 Order name: CBC with Diff as6 01/27 20:58 Order name: Troponin HS; Complete Time: 23:32 as6 01/27 21:03 Order name: COVID-19 SARS RT PCR (Document "Date of Onset" if Symptomatic); Complete la1 Time: 22:54 01/27 21:35 Order name: Liver (Hepatic) Function; Complete Time: 23:32 EDVA 01/27 21:35 Order name: NT PRO-BNP; Complete Time: 23:32 EDMS 01/27 21:35 Order name: Magnesium; Complete Time: 23:32 EDMS 01/28 04:45 Order name: CBC with Automated Diff EDVA 01/28 05:11 Order name: Comprehensive Metabolic Panel EDVA 01/28 05:11 Order name: Troponin High Sensitivity EDVA 01/28 05:11 Order name: Magnesium EDMS 01/27 20:58 Order name: XRAY Chest (1 view); Complete Time: 21:45 01/27 20:58 Order name: EKG; Complete Time: 20:59 01/27 20:58 Order name: Cardiac monitoring; Complete Time: 20:58 01/27 20:58 Order name: EKG - Nurse/Tech; Complete Time: 20:58 01/27 20:58 Order name: IV Saline Lock; Complete Time: 20:58 01/27 20:58 Order name: Labs collected and sent; Complete Time: 21:15 as01/27 20:58 Order name: O2 Per Protocol; Complete Time: 20:58 as6 01/28 07:47 Order name: Urinalysis EDVA 01/28 07:55 Order name: Glucose, Ancillary Testing EDVA 01/28 08:16 Order name: Urine Microscopic Only EDVA 01/28 11:45 Order name: Glucose, Ancillary Testing EDVA 01/28 11:49 Order name: NM EDVA 01/27 20:58 Order name: O2 Sat Monitoring; Complete Time: 20:58 as6 Administered Medications: 21:30 Drug: Aspirin Chewable Tablet 324 mg Route: PO; as6 23:56 Follow up: Response: No adverse reaction jb4 21:31 Drug: Nitroglycerin 0.4 mg Route: Sublingual; as6 23:56 Follow up: Response: No adverse reaction jb4 23:56 Drug: Magnesium Sulfate 1 grams Route: IVPB; Infused Over: 1 hrs; Site: left jb4 antecubital; 01/28 00:56 Follow up: Response: No adverse reaction; IV Status: Completed infusion; IV Intake: jb4 100ml Disposition Summary: 01/27/22 23:02 Hospitalization Ordered Hospitalization Status: Observation jr8 Provider: Richard Dnet jr8 Condition: Stable jr8 Problem: new jr8 Symptoms: have improved jr8 Bed/Room Type: Standard 8 Location: Telemetry/MedSurg (observation)(01/28/22 09:30) kj1 Room Assignment: [facility](01/28/22 09:30) [facility] Diagnosis - Chest pain, unspecified jr8 Forms: - Medication Reconciliation Form jr8 - SBAR form jr8 Signatures: Dispatcher [employer] EDMS Faisal Bridges PA PA jr8 Lisa Hutchinson RN RN cg Bryson, James, RN RN jb4 Gayle Cody kj1 Weston Segura RN RN as6 Corrections: (The following items were deleted from the chart) 01/27 21:34 21:14 MAGNESIUM+C.LAB.BRZ ordered. EDMS EDMS 21:35 21:02 PROBNP+C.LAB.BRZ ordered. EDMS EDMS 21:35 21:04 HEPATIC FUNCTION+C.LAB.BRZ ordered. EDMS EDMS 23:08 23:02 Telemetry/MedSurg (observation) jr8 cg 23:08 23:02 jr8 cg 01/28 09:30 01/27 23:08 [facility] ER HOLD cg kj1 01/28 09:30 01/27 23:08 ERHOLD- cg kj1 01/28 09:30 09:30 kj1 kj1
--- NOTE | 2022-01-27 23:03 | ER ---
Nurse's Notes [facility] Name: Jimbo Cat Age: 81 yrs Sex: Male : 1940 Arrival Date: 01/27/2022 Time: 20:54 Bed 4 Private MD: Diagnosis: Chest pain, unspecified Presentation: 01/27 20:54 Chief complaint: EMS states: Pt reports SOB and chest pain. SOB is worse than the chest jb4 pain, and pt reports it continues to worsen. On 2L NC at home. Coronavirus screen: At this time, the client does not indicate any symptoms associated with coronavirus-19. Ebola Screen: No symptoms or risks identified at this time. Initial Sepsis Screen: Does the patient meet any 2 criteria? No. Patient's initial sepsis screen is negative. Does the patient have a suspected source of infection? No. Patient's initial sepsis screen is negative. Risk Assessment: Do you want to hurt yourself or someone else? Patient reports no desire to harm self or others. Onset of symptoms was January 27, 2022. Transition of care: patient was not received from another setting of care. 20:54 Method Of Arrival: EMS: [facility] jb4 20:54 Acuity: SYDNIE 3 jb4 Historical: - Allergies: 20:55 No Known Allergies; jb4 - Home Meds: 20:55 albuterol sulfate 2.5 mg /3 mL (0.083 %) [facility] [Active]; amiodarone 400 mg Oral tab jb4 1 tab once daily [Active]; atorvastatin 40 mg Oral tab 1 tab once daily [Active]; Entresto 49-51 mg Oral tab 1 tab 2 times per day [Active]; Furosemide Oral once daily [Active]; metoprolol succinate 25 mg Oral CSpX 1 cap once daily [Active]; - PMHx: 20:55 Congestive heart failure; CVA; diabetes mellitus; Myocardial infarction; jb4 - PSHx: 20:55 Appendectomy; Pacemaker/Defibrillator; jb4 Screenin:55 Abuse screen: Denies threats or abuse. Nutritional screening: No deficits noted. jb4 Tuberculosis screening: No symptoms or risk factors identified. Fall Risk None identified. Assessment: 20:55 General: Appears in no apparent distress. uncomfortable, Behavior is calm, cooperative, jb4 appropriate for age. Pain: Complains of pain in chest Pain does not radiate. Pain currently is 4 out of 10 on a pain scale. Quality of pain is described as aching. Neuro: Level of Consciousness is awake, alert, obeys commands, Oriented to person, place, time, situation. Cardiovascular: Patient's skin is warm and dry. Rhythm is atrial pacer ventricular pacer. Respiratory: Airway is patent Respiratory effort is even, labored, Respiratory pattern is regular, tachypnea Breath sounds are clear bilaterally. GI: No signs and/or symptoms were reported involving the gastrointestinal system. : No signs and/or symptoms were reported regarding the genitourinary system. EENT: No signs and/or symptoms were reported regarding the EENT system. Derm: Skin is intact, Skin is pink, warm \T\ dry. Musculoskeletal: Circulation, motion, and sensation intact. Range of motion: intact in all extremities. 21:30 Reassessment: Patient appears in no apparent distress at this time. Patient and/or jb4 family updated on plan of care and expected duration. Pain level reassessed. Patient is alert, oriented x 3, equal unlabored respirations, skin warm/dry/pink. 22:30 Reassessment: Patient appears in no apparent distress at this time. Patient and/or jb4 family updated on plan of care and expected duration. Pain level reassessed. Patient is alert, oriented x 3, equal unlabored respirations, skin warm/dry/pink. 23:29 Reassessment: Patient appears in no apparent distress at this time. Patient and/or jb4 family updated on plan of care and expected duration. Pain level reassessed. Patient is alert, oriented x 3, equal unlabored respirations, skin warm/dry/pink. 01/28 11:54 Reassessment: Report given to Katy REGALADO. vg1 Vital Signs: 01/27 20:54 BP 146 / 76; Pulse 66; Resp 25; Temp 98.4; Pulse Ox 98% on R/A; Weight 63.5 kg (R); jb4 Height 5 ft. 3 in. (160.02 cm); 22:35 BP 129 / 76; Pulse 61; Resp 16 S; Pulse Ox 100% on 2 lpm NC; as6 23:20 BP 136 / 69; Pulse 61; Resp 21; Pulse Ox 100% on 2 lpm NC; jb4 20:54 Body Mass Index 24.80 (63.50 kg, 160.02 cm) jb4 ED Course: 20:54 Patient arrived in ED. jb4 20:55 Triage completed. jb4 20:55 Arm band placed on right wrist. jb4 20:55 Maintain EMS IV. Dressing intact. Good blood return noted. Site clean \T\ dry. Gauge \T\ parvez 4 site: 20g LAC. 20:58 Weston Segura, SABINE is Primary Nurse. as6 21:06 Faisal Bridges PA is PHCP. jr8 21:06 Terry Sanderson MD is Attending Physician. jr8 21:33 XRAY Chest (1 view) In Process Unspecified. EDMS 23:02 Richard Dent MD is Hospitalizing Provider. jr8 23:20 No provider procedures requiring assistance completed. Patient admitted, IV remains in jb4 place. Administered Medications: 21:30 Drug: Aspirin Chewable Tablet 324 mg Route: PO; as6 23:56 Follow up: Response: No adverse reaction jb4 21:31 Drug: Nitroglycerin 0.4 mg Route: Sublingual; as6 23:56 Follow up: Response: No adverse reaction jb4 23:56 Drug: Magnesium Sulfate 1 grams Route: IVPB; Infused Over: 1 hrs; Site: left jb4 antecubital; 01/28 00:56 Follow up: Response: No adverse reaction; IV Status: Completed infusion; IV Intake: jb4 100ml Intake: 00:56 IV: 100ml; Total: 100ml. jb4 Outcome: 01/27 23:02 Decision to Hospitalize by Provider. jr8 23:20 Admitted to ER Hold. Please see [facility] for further documentation. jb4 23:20 Condition: stable 23:20 Discharge instructions given to patient, Instructed on the need for admit, Demonstrated understanding of instructions. 01/28 12:02 Patient left the ED. kj1 Signatures: Dispatcher [employer] EDMD Faisal Bridges PA PA jr8 Edwin Higgins RN RN jb4 Gayle Cody kj1 Laury Hutchinson, RN RN vg1 Weston Segura, RN RN as6 Corrections: (The following items were deleted from the chart) 01/27 23:29 20:55 Respiratory: Airway is patent Respiratory effort is even, labored, Respiratory jb4 pattern is regular, tachypnea jb4
[2022-01-27 23:23] LABS: Albumin 2.6 g/dL (3.4-5.0); Bilirubin Direct 1.2 mg/dL (0-0.2); Bilirubin Total 1.5 mg/dL (0.2-1.0); Magnesium 1.6 mg/dL (1.8-2.4); Potassium 3.8 mmol/L (3.5-5.1); Protein, Total 6.2 g/dL (6.4-8.2)
[2022-01-27 23:31] LABS: Troponin High Sensitivity 67.2 pg/mL (<58.9)
[2022-01-27] MEDS ORDERED: MAGNESIUM SULFATE 1 gm IVPB 1 GM/100 ML BAG IV ONE (23:50)
--- NOTE | 2022-01-28 00:41 | P.HP ---
Certification for Inpatient Patient admitted to: Observation With expected LOS: <2 Midnights Patient will require the following post-hospital care: None Practitioner: I am a practitioner with admitting privileges, knowledge of patient current condition, hospital course, and medical plan of care. Services: Services provided to patient in accordance with Admission requirements found in Title 42 Section 412.3 of the Code of Federal Regulations Patient History Date of Service: 01/28/22 Primary Care Provider: Dr. Hernandez, Dr. Powell, Dr. Smith Reason for admission: Chest pain, dyspnea, HIRO History of Present Illness: 81-year-old male with history of chronic systolic congestive heart failure, CKD 3, hypertension, COPD, CAD with pacemaker presents emergency department for chest pain, shortness of breath he has been having shortness of breath over course last 24 hours, chest pain began this evening while at rest pain is descr ibed as sharp lasted for approximately 1 hour, is episodic in nature. Patient was evaluated in the emergency department his labs were significant for mild worsening of his CKD, mild hyponatremia elevated BNP mildly elevated troponin chest x-ray negative for any acute findings EKG shows paced rhythm ED provider wishes to admit for chest pain, dyspnea. Allergies No Known Allergies Allergy (Verified 03/23/21 04:35) Home Medications: Sacubitril/Valsartan [Entresto 49 mg-51 mg Tablet] 1 tab PO BID #60 tab 03/23/21 Albuterol Neb [Proventil 0.083% Neb Soln] 2.5 mg NEB Q6HP PRN #60 amp 07/09/21 Atorvastatin Calcium [Lipitor] 40 mg PO BEDTIME #30 tab 07/09/21 Amiodarone HCl [Pacerone] 200 mg PO DAILY #30 tablet 11/30/21 Clopidogrel Bisulfate [Plavix*] 75 mg PO DAILY #30 tablet 11/30/21 Metoprolol Tartrate [Lopressor*] 50 mg PO BID #60 tab 11/30/21 Furosemide 20 mg PO BID #60 tablet 12/28/21 - Past Medical/Surgical History Diabetic: No -: Pacemaker/defibrillator 2010 -: Hypertension -: CAD -: Hyperlipidemia -: History of CVA -: Depression -: Bilateral cataracts -: Chronic systolic CHF -: COPD -: Parkinsons -: CKD III followed by Dr. 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 moist/pink, EOMI, Sclerae nonicteric Neck: Supple, 2+ carotid pulse no bruit, No LAD, Without JVD or thyroid abn ormality Respiratory: Clear to auscultation bilaterally, Normal air movement Cardiovascular: Regular rate/rhythm, Normal S1 S2 Gastrointestinal: Normal bowel sounds, No tenderness Musculoskeletal: No tenderness Integumentary: No rashes Neurological: Normal speech, Normal strength at 5/5 x4 extr, Normal tone, Normal affect - Studies Laboratory Data (last 24 hrs) 01/27/22 22:43: Sodium 129 L, Potassium 3.8, BUN 69 H, Creatinine 2.66 H, Glucose 275 H, Magnesium 1.6 L, Total Bilirubin 1.5 H, AST 31 D, ALT 112 H D, Alkaline Phosphatase 91 01/27/22 21:13: Magnesium Cancelled 01/27/22 21:12: WBC 7.3 D, Hgb 10.8 L D, Hct 31.4 L D, Plt Count 186 01/27/22 21:03: Total Bilirubin Cancelled, AST Cancelled, ALT Cancelled, Alkaline Phosphatase Cancelled Assessment and Plan - Plan Assessment: Chest pain, dyspnea rule out ACS Acute on chronic systolic congestive heart failure Acute worsening of CKD 3 Mild hyponatremia Hypertension Hypomagnesemia Elevated LFTs Plan: Chest pain, dyspnea rule out ACS: Monitor on telemetry, trend troponins, cardiology consult in place. Continue home medications, treat for CHF most recent echocardiogram showed mildly depressed ejection fraction 50 to 55% in November 2021. Acute on chronic systolic congestive heart failure: Continue as above, Lasix 20 IV twice daily, appreciate further input from cardiology/nephrology regarding volume status/mild hyponatremia. Acute worsening of CKD 3: Nephrology consulted, continue gentle diuresis at this time, appreciate further input from nephrology. Mild hyponatremia: Continue as above Hypertension: Continue home medication Hypomagnesemia: Replaced in ER, replace as needed. Elevated LFTs: Patient was previously evaluated for acute hepatic injury and transferred approximately a month ago it was deemed this was related to medication amiodarone which has been discontinued. DVT PPX: Heparin Code status: Full Discharge Plan: Home Plan to discharge in: 24 Hours - Advance Directives Does patient have a Living Will: No Does patient have a Durable POA for Healthcare: Yes - Code Status/Comfort Care Code Status Assessed: Yes (Full code) Critical Care: No Time Spent Managing Pts Care (In Minutes): 55
[2022-01-28 01:15] VITALS: BMI 24.7
[2022-01-28] MEDS ORDERED: ONDANSETRON 4 MG/2 ML VIAL IV PRN (02:05)
[2022-01-28] MEDS ORDERED: MORPHINE 2 MG/ML SYR IV PRN (02:05)
[2022-01-28 04:36] LABS: Absolute Lymphocytes (CBC) 0.4 K/uL (0.7-4.9); Hematocrit 30.8 % (39.6-49.0); Lymphocytes % 7.2 % (15.3-44.8); MPV 8.3 fL (7.6-11.3); RBC Red Blood Cell Count 3.48 M/uL (4.33-5.43)
[2022-01-28 05:06] LABS: Albumin 2.5 g/dL (3.4-5.0); Bilirubin Total 1.4 mg/dL (0.2-1.0); Magnesium 1.9 mg/dL (1.8-2.4); Potassium 3.4 mmol/L (3.5-5.1); Protein, Total 5.9 g/dL (6.4-8.2)
[2022-01-28 05:10] LABS: Troponin High Sensitivity 71.7 pg/mL (<58.9)
[2022-01-28] MEDS ORDERED: D50W 25 GM/50 ML SYRINGE IV PRN (07:21)
[2022-01-28] MEDS ORDERED: GLUCAGON 1 MG/VIAL IM PRN (07:21)
[2022-01-28] MEDS: INSULIN -REGULAR HUMAN 50 UNIT/0.5 ML ML SQ SCH ×4 (07:30→20:55)
--- NOTE | 2022-01-28 07:44 | EKG ---
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
[2022-01-28 07:47] LABS: Urine Appearance Clear (Clear); Urine Bilirubin Negative (Negative); Urine Blood Trace-intact (Negative); Urine Color Yellow (Yellow); Urine Glucose 2+ (Negative); Urine Microscopic Reflex ORDER UMIC; Urine Protein 2+ (Negative)
[2022-01-28] MEDS ORDERED: INSULIN -REGULAR HUMAN 50 UNIT/0.5 ML ML ONE ×2 (07:56→11:45)
[2022-01-28 08:15] LABS: Urine Bacteria <20 /HPF (NONE SEEN); Urine RBC <5 /HPF (NONE SEEN)
[2022-01-28] MEDS ORDERED: CLOPIDOGREL 75 MG TABLET ONE (08:55)
[2022-01-28] MEDS ORDERED: HEPARIN 5000 UNIT/ML 1 ML VIAL ONE ×2 (08:55→13:27)
[2022-01-28] MEDS ORDERED: FUROSEMIDE 20 MG/ 2ML VIAL ONE (08:55)
[2022-01-28] MEDS ORDERED: METOPROLOL TAR 50 MG TAB ONE (08:55)
[2022-01-28] MEDS: CLOPIDOGREL 75 MG TABLET PO SCH (09:00)
[2022-01-28] MEDS: HEPARIN 5000 UNIT/ML 1 ML VIAL SQ SCH ×2 (09:00→20:51)
[2022-01-28] MEDS: FUROSEMIDE 20 MG/ 2ML VIAL IV SCH ×2 (09:00→17:48)
[2022-01-28] MEDS: METOPROLOL TAR 50 MG TAB PO SCH ×2 (09:00→20:50)
[2022-01-28] MEDS ORDERED: REGADENOSON 0.4 MG/5 ML SYR IV ONE (09:54)
--- NOTE | 2022-01-28 11:27 | P.CNS ---
Date of Consult: 01/28/22 Reason for Consult: Hyponatremia Requesting Physician: Richard Dent Primary Care Provider: Dr. Hernandez, Dr. Powell, Dr. Arenas Chief Complaint: Chest pain, dyspnea, HIRO History of Present Illness: 81-year-old male with history of chronic systolic congestive heart failure, CKD 3, hypertension, COPD, CAD with pacemaker presents emergency department for chest pain, shortness of breath he has been having shortness of breath over course last 24 hours, chest pain began this evening while at rest pain is described as sharp lasted for approximately 1 hour, is episodic in nature. Patient was evaluated in the emergency department his labs were significant for mild worsening of his CKD, mild hyponatremia elevated BNP mildly elevated troponin chest x-ray negative for any acute findings EKG shows paced rhythm ED provider wishes to admit for chest pain, dyspnea. 22:04 This 81 yrs old Male presents to ER via EMS with complaints of Chest Pain. jr8 22:04 The patient or guardian reports chest pain that is located primarily in the substernal jr8 area. Onset: acutely, today. The pain does not radiate. Associated signs and symptoms: Pertinent positives: shortness of breath. The chest pain is described as a pressure. Duration: The patient or guardian reports a single episode, that is still ongoing. Severity of pain: At its worst the pain was moderate in the emergency department the pain is unchanged. The patient has experienced similar episodes in the past, a few times. The patient has not recently seen a physician Allergies No Known Allergies Allergy (Verified 03/23/21 04:35) Home medications list reviewed: Yes Home Medications: Furosemide 80 mg PO BID 01/28/22 Hydralazine [Apresoline*] 1 tab PO BID 01/28/22 Isosorbide Mononitrate [Isosorbide Mononitrate ER] 1 tab PO DAILY 01/28/22 Potassium Chloride 1 tab PO DAILY 01/28/22 - Past Medical/Surgical History Diabetic: No -: Pacemaker/defibrillator 2010 -: Hypertension -: CAD -: Hyperlipidemia -: History of CVA -: Depression -: Bilateral cataracts -: Chronic systolic CHF -: COPD -: Parkinsons -: CKD III followed by Dr. 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 - Family History Father Medical History: Heart disease Mother Medical History: Heart disease, Hypertension, Diabetes, Cancer - Social History Smoking Status: Unknown if ever smoked Alcohol use: Yes CD- Drugs: No Caffeine use: Yes Place of Residence: Home Review of Systems 10-point ROS is otherwise unremarkable Respiratory: SOB with Excertion Physical Examination Temp Pulse Resp BP Pulse Ox 97.4 F 63 16 141/74 H 100 01/28/22 04:00 01/28/22 09:00 01/28/22 08:00 01/28/22 09:00 01/28/22 08:00 General: Oriented x3, Cooperative HEENT: Atraumatic Respiratory: Clear to auscultation bilaterally Cardiovascular: No edema Gastrointestinal: Soft and benign, Non-distended Musculoskeletal: No clubbing, No contractures Integumentary: No rashes Neurological: Normal speech Laboratory Data (last 24 hrs) 01/27/22 22:43: Sodium 129 L, Potassium 3.8, BUN 69 H, Creatinine 2.66 H, Glucose 275 H, Magnesium 1.6 L, Total Bilirubin 1.5 H, AST 31 D, ALT 112 H D, Alkaline Phosphatase 91 01/27/22 21:13: Magnesium Cancelled 01/27/22 21:12: WBC 7.3 D, Hgb 10.8 L D, Hct 31.4 L D, Plt Count 186 01/27/22 21:03: Total Bilirubin Cancelled, AST Cancelled, ALT Cancelled, Alkaline Phosphatase Cancelled Imagings Data: EXAM DESCRIPTION: Daniel Single View01/27/2022 9:33 pm CLINICAL HISTORY: Chest pain COMPARISON: January 19, 2022 FINDINGS: The lungs appear clear of acute infiltrate. The heart is mildly enlarged. Pacemaker leads are in place. IMPRESSION: No acute abnormalities displayed Conclusions/Impression: HIRO likely CRS CKD IV with proteinuria -No NSAIDs Hyponatremia -Correct hyperglycemia -Continue Lasix Hypokalemia -Replete potassium HTN with CKD/ CHF -Continue Metoprolol Systolic CHF, A/C -Continue Lasix DM II with CKD -RISS Moderate malnutrition -Encourage nutrition Anemia in chronic illness -Monitor H&H Case reviewed as Dr. Dent Thank you kindly for the consultation
--- NOTE | 2022-01-28 11:49 | RAD REPORT ---
EXAM DESCRIPTION: NM - Rest Stress Cardiac Imaging - 01/28/2022 11:04 am CLINICAL HISTORY: Chest pain. COMPARISON: None. TECHNIQUE: The patient was administered 10.8 mCi of Tc 99m Sestamibi prior to resting SPECT imaging of the heart. The patient was then administered 30.9 mCi of Tc 99m Sestamibi following exercise or ph armacologic stress. Multiplanar SPECT images were reviewed. FINDINGS: Stress images demonstrate small area diminished radiotracer uptake involving the inferior left ventricular myocardium. Small to moderate area of diminished radiotracer uptake involves the lat eral left ventricular myocardium. On rest images there is no significant change in the appearance of radiotracer activity involving the left ventricular myocardium The left ventricular ejection fraction equals 34% IMPRESSION: Small to moderate apparent fixed perfusion defect involving the lateral left ventricular myocardium may indicate infarct Small fixed perfusion defect involving the inferior left ventricular myocardium could either be atten uation from the diaphragm or an infarct. There is no evidence of stress-induced ischemia
[2022-01-28] MEDS ORDERED: ATROPINE SULF 1 MG/10 ML SYR IV ONE (13:23)
[2022-01-28] MEDS ORDERED: HEPA 1000U/500MLS 2,000 UNIT/1,000 ML BAG IV ONE (13:23)
[2022-01-28] MEDS ORDERED: MIDAZOLAM HCL 2 MG/2 ML INJ ONE (13:27)
[2022-01-28] MEDS ORDERED: VERAPAMIL HCL 10 MG/4 ML VIAL IV ONE (13:27)
[2022-01-28] MEDS ORDERED: FENTANYL CITR 100 MCG/2 ML ONE (13:27)
[2022-01-28] MEDS ORDERED: NA CHLORIDE 0.9% 500 ML ONE (13:40)
--- NOTE | 2022-01-28 13:57 | TREADPHA ---
DX: CHEST PAIN Date of Study: 01/28/2022 Ht: 5' 3 " Wt: 140 lb 0 oz Consulting Physician: J LUIS MEDICATIONS: PLAVIX, LASIX, LOPRESSOR, HEPARIN, GLUCAGEN HISTORY: PHYSICIAL EXAMINATION: RESTING B.P.: 145/81 RESTING H.R.: 62 RESTING EKG: V - PACED PROTOCOL: LEXISCAN EXERCISE TIME: 3:30 B.P. AT PEAK STRESS: 117/56 IMPRESSION: NO EKG CHANGES WITH LEXISCAN. LEXISCAN INJECTED. CARDIOLITE INJECTED (SEE NUCLEAR MEDICINE REPORT). NO COMPLAINTS OF CHEST PAIN OR HEADACHE. COMPLAINTS OF SHORTNESS OF BREATH. NO SUPRA VENTRICULAR TACHYCARDIA OR VENTRICULAR TACHYCARDIA. NO ARRHYTHMIAS NOTED. A/V PACED.
--- NOTE | 2022-01-28 14:27 | CON ---
Date of Consultation: 01/28/2022 Reason For Consultation: Chest pain. History Of Present Illness: Mr. Cat is 81, known to us from previous office visits and admissions. He has a history of chronic renal disease, parkinsonism, history of CVA, hypertension, COPD, CAD, d iastolic congestive heart failure, and defibrillator. Recently had an echocardiogram showed an eject ion fraction of 55% with moderate mitral regurgitation and left atrial enlargement. He came in with substernal chest pain, shortness of breath, diaphoresis, but no nausea. Denied PND, orthopnea, pedal edema, palpitations, or syncope. His EKG is unremarkable. His troponin is 71, glucose was 423, cre atinine is 2.63. He is pain free now. Past Medical History: As stated above. Allergies: NONE. Review of Systems: Negative. Social History: Negative. Family History: Negative. Medications: At home include inhalers, Lipitor, Plavix, Lasix, metoprolol, Entresto. Physical Examination: Vital Signs: Stable, afebrile. HEENT: Negative. Neck: Supple with no bruit. Chest: Clear. Cardiac: Revealed a regular rhythm and rate with mitral regurgitation murmur. No gallops or rubs. Abdomen: Benign. Extremities: Revealed no clubbing, cyanosis, or edema. Skin: Dry and intact. Pulses were present distally bilaterally. Neurologic: He was nonfocal. Impression And Plan: 1.Acute on chronic diastolic congestive heart failure. 2.Chest pain that could be related to coronary artery disease. 3.History of defibrillator, pacemaker. 4.History of cerebrovascular accident. 5.Chronic renal disease. 6.Parkinsonism. 7.Hypertension. 8.History of chronic obstructive pulmonary disease. 9.Diabetes, poorly controlled. 10.Mitral regurgitation. 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 He is in paced rhythm now. I think Mr. Cat really requires rather intensive cardiac workup for hi s coronary anatomy. At one point, he was going to go to [place] and have a stress test and a heart c atheterization after that, but this was not done because he did not follow up and does not want to go to [place]. I went ahead and ordered a Lexiscan on him for today. If that is positive, we will do a heart catheterization on him tomorrow. Meanwhile, continue present regimen. Consider increasing L asix. Continue Entresto and metoprolol. Watch his kidney function. Consider Nephrology consultatio farhad WALDRON/FAITH Voice ID: [id number] Report ID: [id number]
--- NOTE | 2022-01-29 03:32 | OP ---
Date of Procedure: 01/28/2022 Surgeon: ARIAN DO Procedures Performed: 1.Selective coronary angiogram. 2.Left heart catheterization. Indication: Non-ST elevation myocardial infarction. Access: Right radial artery, 6-Guamanian, closed with TR band. Complications: None. Bleeding: Less than 10 mL. Used fentanyl, Versed in sedation. Total sedation time was 25 minutes. Description Of Procedure: After risks, benefits, and alternatives were explained, the patient agreed to proceed and signed informed consent. The patient was brought into the cardiac catheterization la boratory, prepped and draped in sterile fashion. Then, we accessed right radial artery using Verosee ic micropuncture kit, placed a 6-Guamanian slender sheath and took a 5-Guamanian tiger 4.0 catheter in the aortic root, engaged left main, right coronary artery, took standard views and then over the J-wire a nd the catheter was advanced to the LV. LVEDP was measured and pullback did not record any significa nt gradient. I removed the catheter and sheath, placed TR band with good hemostasis. Findings: 1.Left main, large and normal. 2.LAD, very large and normal, normal diagonal branches. 3.Left circumflex, large and codominant and normal. Normal OMs. 4.RCA, very large with aneurysmal proximal portion, but good flow and no significant disease. 5.LVEDP, normal at 6 mmHg and no gradient across aortic valve. Conclusion: 1.Normal coronary arteries. 2.Normal LVEDP. Recommendations: Medical management. /FAITH Voice ID: [id number] Report ID: [id number]
[2022-01-29 04:10] VITALS: O2SAT 99
[2022-01-29 05:48] LABS: Absolute Lymphocytes (CBC) 0.4 K/uL (0.7-4.9); Hematocrit 33.7 % (39.6-49.0); Lymphocytes % 6.3 % (15.3-44.8); RBC Red Blood Cell Count 3.84 M/uL (4.33-5.43)
[2022-01-29 06:03] LABS: Albumin 2.5 g/dL (3.4-5.0); Bilirubin Total 1.3 mg/dL (0.2-1.0); Magnesium 1.8 mg/dL (1.8-2.4); Phosphorus 2.6 mg/dL (2.5-4.9); Potassium 3.6 mmol/L (3.5-5.1); Protein, Total 6.3 g/dL (6.4-8.2); Uric Acid 5.9 mg/dL (3.5-7.2)
[2022-01-29] MEDS: INSULIN -REGULAR HUMAN 50 UNIT/0.5 ML ML SQ SCH (08:47)
[2022-01-29] MEDS: HEPARIN 5000 UNIT/ML 1 ML VIAL SQ SCH (08:48)
[2022-01-29] MEDS: METOPROLOL TAR 50 MG TAB PO SCH (08:48)
[2022-01-29] MEDS: CLOPIDOGREL 75 MG TABLET PO SCH (08:48)
[2022-01-29] MEDS: FUROSEMIDE 20 MG/ 2ML VIAL IV SCH (08:48)
[2022-01-29 08:50] VITALS: TEMP 97.3
[2022-01-29 08:57] VITALS: BP 158/81
--- NOTE | 2022-01-29 17:46 | P.DS ---
Admission Date: 01/28/22 Discharge Date: 01/29/22 Primary Care Provider: Dr. Hernandez, Dr. Powell, Dr. Arenas Disposition: ROUTINE DISCHARGE Discharge Condition: GOOD Reason for Admission: Chest pain, dyspnea, HIRO Consultations: Nephrology - Dr. Powell Procedures: Problem List Chest pain, NSTEMI Acute on chronic systolic congestive heart failure CKD 3 Mild hyponatremia, chronic Hypertension Hypomagnesemia Elevated LFTs Brief History of Present Illness: 81yo M, PMH: chronic CHF, CKD3, HTN, COPD, CAD with pacemaker. Presented to ED due to chest pain and shortness of breath over the last 24 hrs. Chest pain began this evening while at rest and described as sharp. Lasted for approximately 1 hour, is episodic in nature. Patient was evaluated in the emergency department his labs were significant for mild worsening of his CKD, mild hyponatremia elevated BNP, mildly elevated troponin. chest x-ray negative for any acute findings EKG shows paced rhythm ED provider wishes to admit for chest pain, dyspnea. Hospital Course: Patient underwent cardiac stress testing and catheterization which revealed no coronary artery disease. He was treated with IV lasix and had improvement of his symptoms and breathing comfortably at rest on room air. He is to continue with his home oxygen - as needed to maintain SpO2 > 92% Resume home medications - reiterated importance of adherence to his medication. He was also noted to be hyperglycemia. A1c: 6.6. He is started on metformin 500mg BID. Advised to check blood glucose at least fasting in morning and at night. Record levels and take with him to PCP's office. Recommend follow up with PCP within 1 week. Vital Signs/Physical Exam: Temp Pulse Resp BP Pulse Ox 97.3 F 66 16 158/81 H 98 01/29/22 08:00 01/29/22 08:48 01/29/22 08:00 01/29/22 08:48 01/29/22 08:00 General: Alert, In no apparent distress, Oriented x3 HEENT: Sclerae nonicteric Neck: Supple Respiratory: Clear to auscultation bilaterally, Normal air movement Cardiovascular: No edema, Regular rate/rhythm Gastrointestinal: Soft and benign, Non-distended, No tenderness Musculoskeletal: No swelling Neurological: Normal speech, Normal affect Laboratory Data at Discharge: WBC 7.0 K/uL (4.3-10.9) D 01/29/22 05:25 Hgb 12.0 g/dL (13.6-17.9) L 01/29/22 05:25 Hct 33.7 % (39.6-49.0) L 01/29/22 05:25 Plt Count 180 K/uL (152-406) D 01/29/22 05:25 Sodium 134 mmol/L (136-145) L 01/29/22 05:25 Potassium 3.6 mmol/L (3.5-5.1) 01/29/22 05:25 BUN 54 mg/dL (7-18) H 01/29/22 05:25 Creatinine 2.55 mg/dL (0.55-1.3) H 01/29/22 05:25 Glucose 224 mg/dL (74-106) H 01/29/22 05:25 Uric Acid 5.9 mg/dL (3.5-7.2) D 01/29/22 05:25 Phosphorus 2.6 mg/dL (2.5-4.9) 01/29/22 05:25 Magnesium 1.8 mg/dL (1.8-2.4) 01/29/22 05:25 Total Bilirubin 1.3 mg/dL (0.2-1.0) H 01/29/22 05:25 AST 34 U/L (15-37) 01/29/22 05:25 ALT 98 U/L (12-78) H 01/29/22 05:25 Alkaline Phosphatase 89 U/L (45-117) 01/29/22 05:25 Home Medications: Furosemide 80 mg PO BID 01/28/22 Hydralazine [Apresoline*] 1 tab PO BID 01/28/22 Isosorbide Mononitrate [Isosorbide Mononitrate ER] 1 tab PO DAILY 01/28/22 Potassium Chloride 1 tab PO DAILY 01/28/22 Blood Sugar Diagnostic [Accu-Chek Guide Test Strip] 1 each MC BID 30 Days #60 strip 01/29/22 Blood-Glucose Meter [Contour] 1 each MC DAILY 90 Days #1 each 01/29/22 Lancets [Advanced Travel Lancets] 1 each MC BID 30 Days #60 each 01/29/22 Metformin HCl [Glucophage*] 500 mg PO BIDWM 30 Days #60 tab 01/29/22 New Medications: Blood Sugar Diagnostic [Accu-Chek Guide Test Strip] 1 each MC BID 30 Days #60 strip Lancets [Advanced Travel Lancets] 1 each MC BID 30 Days #60 each Blood-Glucose Meter [Contour] 1 each MC DAILY 90 Days #1 each Metformin HCl [Glucophage*] 500 mg PO BIDWM 30 Days #60 tab Diet: ADA Activity: Ad brianna Followup: Unknown,U [Primary Care Provider] - Time spent managing pt's care (in minutes): 45
== END 2022-01-29 11:48 | disposition home or self-care (01) | DRG 280 ==
LOC: ER 20:49 → ERHOLD 01-28 00:03 → 2ND 01-28 11:55 → OBSVTOIN 01-28 13:38
PROVIDERS: ADMIT Hospitalist; ATTEND Hospitalist
PROC: B201YZZ Plain Radiography of Multiple Coronary Arteries using Other Contrast (ICD-10-PCS; principal; 2022-01-28)
PROC: 4A023N7 Measurement of Cardiac Sampling and Pressure, Left Heart, Percutaneous Approach (ICD-10-PCS; 2022-01-28)
DX: I21.4 Non-ST elevation (NSTEMI) myocardial infarction (principal); I50.33 Acute on chronic diastolic (congestive) heart failure; I13.0 Hypertensive heart and chronic kidney disease with heart failure and stage 1 through stage 4 chronic kidney disease, or unspecified chronic kidney disease; E87.1 Hypo-osmolality and hyponatremia; N17.9 Acute kidney failure, unspecified; I25.10 Atherosclerotic heart disease of native coronary artery without angina pectoris; N18.30 Chronic kidney disease, stage 3 unspecified; E83.42 Hypomagnesemia; R79.89 Other specified abnormal findings of blood chemistry; G20 Parkinson's disease; Z86.73 Personal history of transient ischemic attack (TIA), and cerebral infarction without residual deficits; E11.22 Type 2 diabetes mellitus with diabetic chronic kidney disease; E11.65 Type 2 diabetes mellitus with hyperglycemia; I34.0 Nonrheumatic mitral (valve) insufficiency; J44.9 Chronic obstructive pulmonary disease, unspecified; Z95.0 Presence of cardiac pacemaker; Z20.822 Contact with and (suspected) exposure to COVID-19
CPT/HCPCS: 36415; 71045; 78452; 80048; 80053; 80076; 81003; 81015; 82947; 83036; 83735; 83880; 84100; 84484; 84550; 85025; 93005; 93017; 93458; 96365; 99285; A9500; C1893; G0378; J1644; J1815; J1940; J2250; J2785; J3010; J3475; J7040; U0003

== ENCOUNTER 2022-02-04 19:06 | Emergency (ER) | payer OTHER ==
--- OUTSIDE RECORDS SUMMARY | 2022-02-04 19:12 | XMS REPORT | Continuity of Care Document ---
:1940 Author Organization [facility] t Address [address] [place] [address] Care Team Providers Name Role Phone JOHNSON [...] Date Expiration Date Lauryn little UNITED MEDICARE [id number] 2021 O 00:00:00 Problems Condition Condition Condition [...] Disease Active Univers 9-11 ity of 00:00: [place] [facility] Pneumonia Pneumonia Disease Active Uni vers due to due to 9-11 [place]y of infectious [place] organism organism 00 Medica l Branch Elevated Elevated Disease Active Unive rs troponin I troponin I 9-11 it y of level level 00:00: [place] [facility] Acute on Acute on Disease Active Unive rs chronic chronic 9-10 [place]y of diastolic [place] congest[place] congestive 00 Me dical heart heart Branch failure failure Chest pain Chest pain Disease Active U nivers 7-07 ity of 00:00: [place] [facility] Obesity Obesity Disease Active Overview: Univ ers 4-17 ICD10 ity of 00:00: Diagnosis [facility] Utility Type II or Type [...] demia) demia) 00:00: Diagnosis [place] [facility] Utility Essential Essential Disease Active [...] Known DA Active U [facility]16 [place] 00:00: [address] No Known DA Active U [facility] 05-20 [place] 00:00: [address] NO KNOWN Drug Active Univers ALLERGIE Class ity of S [facility] NO KNOWN Allergy Active [facility] Social History Social Habit Start Date Stop Date Quantity Comments Source Tobacco Comment quit 30 years Univer sity of ago [facility] Alcohol Comment 3 drinks (vodka) Uni versity of nightly [facility] Sex Assigned At Universit y of [facility] Exposure to Unable to assess Univers ity of SARS-CoV-2 [facility] (event) [place] Tobacco use and 2020-05-30 2020-05-30 Never used Universit y of exposure 00:00:00 00:00:00 [facility] Alcohol intake 2020-05-30 2020-05-30 Current drinker Unive rsity of 00:00:00 00:00:00 of alcohol [facility] (finding) [place] Smoking Status Start Date Stop Date Source Never smoker [facility] Medications Ordered Filled Start Stop Current Ordering Indication Dosage Frequency Signature Comments Components Source Medication Medication Date Date Medication? Clinician (SIG) Name Name ASPIRIN 81 0 Yes once daily U nivers MG ORAL 9-16 ity of CHEW 22:57: [address] magnesium 2019-0 Yes 400mg Take 400 Uni vers oxide 9-16 mg by ity of (MAG-OX 22:57: mouth [place] 400) 400 mg 45 daily. Medica l tablet Branch Cyanocobala Yes Place Unive rs min 9-16 under the ity of (VITAMIN 22:57: tongue. [place] B-12) 2,500 45 Medical mcg Subl Branch CALCIUM 2019-0 Yes [facility] CARBON[facility]/V 9-16 mouth. ity of ITAMIN D3 22:57: [place] (VITAMIN 45 Medical D-3 ORAL) Branch MULTIVITAMI 0 Yes Take by Un audra N 9-16 mouth. ity of W-MINERALS/ 22:57: [place] LUTEIN 45 Medical (CENTRUM Branch SILVER ORAL) ASPIRIN 81 2019-0 Yes once daily U nivers MG ORAL 9-16 ity of CHEW 22:57: [address] Branch magnesium 2020-0 Yes 400mg Take [...] daily. Medical per tablet Branch atorvastati Yes [id number] 20mg Take 1 Univers n 20 mg 9-16 tablet by ity of tablet 00:00: mouth at [place] 00 bedtime. Medical Branch primidone 2019-0 Yes [id number] 50mg Take 1 U nivers 50 mg 9-16 tablet by ity of tablet 00:00: mouth [place] 00 every 12 Medical (twelve) Branch hours. metoprolol 2019-0 Yes [id number] 25mg Take 1 Univers tartrate 25 9-16 tablet by ity of mg tablet 00:00: mouth 2 [place] 00 (two) Medical times Branch daily. sacubitriL- 2020-0 Yes [id number] 1{tbl} Take 1 Univers valsartan 9-16 tablet by ity o f 97-103 mg 00:00: mouth 2 [place] tablet 00 (two) Medical times Branch daily. levoFLOXaci 2019-0 Yes [id number] 500mg Take 1 Univers n 500 mg 9-16 tablet by ity of tablet 00:00: mouth [place] 00 every 24 Medical (twenty-fo Branch ur) hours. acidophilus 2020-0 Yes [id number] 1g Take 1 Univers 100 million 9-16 tablet by ity of cell tablet 00:00: mouth 2 Abilio as 00 (two) Medical times Branch daily. atorvastati 2020-0 Yes [id number] 20mg Take 1 Univers n 20 mg 9-16 tablet by ity of tablet 00:00: mouth at [place] 00 bedtime. Medical Branch primidone 2020-0 Yes [id number] 50mg Take 1 U nivers 50 mg 9-16 tablet by ity of tablet 00:00: mouth [place] 00 every 12 Medical (twelve) Branch hours. metoprolol 2020-0 Yes [id number] 25mg Take 1 Univers tartrate 25 9-16 tablet by ity of mg tablet 00:00: mouth 2 [place] 00 (two) Medical times Branch daily. sacubitriL- 2020-0 Yes [id number] 1{tbl} Take 1 Univers valsartan 9-16 tablet by ity o f 97-103 mg 00:00: mouth 2 [place] tablet 00 (two) Medical times Branch daily. levoFLOXaci 2020-0 Yes [id number] 500mg Take 1 Univers n 500 mg 9-16 tablet by ity of tablet 00:00: mouth [place] 00 every 24 Medical (twenty-fo Branch ur) hours. acidophilus 2020-0 Yes [id number] 1g Take 1 Univers 100 million 9-16 tablet by ity of cell tablet 00:00: mouth 2 [place] as 00 (two) Medical times Branch daily. KCL 2020-0 2020- No 20meq 20 mEq, Univers (KLOR-CON 06-03-15 Oral, ONCE ity of M20) tablet 02:30: 01:54 NOW, 1 [place] as 20 mEq 00 :00 dose, [facility] 06/02/20 at Branch 2130, Routine levoFLOXaci 2020-0 Yes 750mg 750 mg, Un audra n 9-14 Oral, ity of (LEVAQUIN) 16:00: Q48H, [place] tablet 750 00 First dose Med ical mg on [facility] Branch 06/02/20 at 1100, Until Discontinu ed, [...] First dose [place] mg 00 on [facility] 06/01/20 at Branch 2215, Until Discontinu ed, Routine bisacodyL 2019- No 10mg 10 mg, Unive rs (DULCOLAX) 06-02 Rectal, ity o f suppository 03:15: 01:59 QHS, 3 [place] as 10 mg 00 :00 doses, Medical First dose Branch on [place] 06/01/20 at 2215, Last dose on Tue06/03/20 at 2100, Routine epoetin 2019- 2020- No 4000U 4,000 Univers renetta-epbx 06-01 Units, ity of (RETACRIT) 19:45: 19:59 Subcutaneo [place] injection 00 :00 us, ONCE, Medic al 4,000 Units 1 dose, Branc h [place] 06/01/20 at 1445, Routine
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 Restricted medication : AKILAH ANDRE ANGELES furosemide 2019- No 40mg 40 mg, IV U nivers (LASIX) 06-01 Push, ity of injection 14:00: 17:48 DAILY, [place] 40 mg 00 :15 First dose Medical (after Branch last modificati on) on [place] 06/01/20 at 0900, Until Discontinu ed, LICO ferrous 2019- 2020- No 325mg 325 mg, Unive rs sulfate 06-01 Oral, BID ity of tablet 325 13:00: 01:14 MEALS, [place] mg 00 :51 First dose Medical on [place] Branch 9/13/20 at 0800, Until Discontinu ed, Routine haloperidol 2020-0 Yes 5mg 5 mg, Slow Univers lactate 06-01 IV Push, ity of (HALDOL) 01:16: QHSPRN, [place] injection 5 44 Starting Medi mecca mg [facility] 05/31/20 at 2016, Until Discontinu ed, Routine, insomnia, psychosis, agitation piperacilli 2020-0 2020- No 2.25g 2.25 g, IV Univers n-tazobacta 06-01 Piggyback, i ty of m (ZOSYN) 00:45: 14:59 Q6H ABX, [place] as 2.25 g/50 00 :52 First dose Medi mecca mL RTU on [facility] Branch 05/31/20 at 1945, Until Discontinu ed, 50 mL
Reas on for Anti-Infec tive: Documented Infection< br>Documen moshe Infection Site: Respirator y
Durat ion of Therapy: 10 days KCL 2020-0 2020- No 40meq 40 mEq, Univers (KLOR-CON 06-01 Oral, ity of M20) tablet 00:45: 01:23 ONCE, 1 [place] 40 mEq 00 :00 dose, [facility] Medical 05/31/20 at Branch 1945, Routine magnesium 2019-0 2020- No 2g 2 g, IV Univ ers sulfate in 06-01 Piggyback, it y of water 2 00:45: 01:23 ONCE, 1 [place] gram/50 mL 00 :00 dose, [facility] Medi mecca (4 %) 05/31/20 at [place] infusion 2 1944, g Routine sodium 2019-0 Yes 125mg 125 mg, IV Univ ers ferric 05-31 Piggyback, ity of gluconate 14:00: DAILY, [place] (FERRLECIT) 00 First dose Me dical 125 mg in on [facility] NaCl 0.9% 05/31/20 at (NS) 100 mL 0900, IV Until piggyback Discontinu ed, 100 mL
Facu lty member approving Restricted medication : HELENA KUMAR sulfur 2020-0 2020- No 5mL 5 mL, Univers hexafluorid 05-30 Intravenou i ty of e microsphr 19:00: 16:30 s, ONCE, 1 [place] (LUMASON) 00 :00 dose, Fri Medic al injection 5 05/30/20 at Br anch mL 1400, Routine
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 Restricted medication : MEGADC heparin [...] ity of (vitamin C) 06:15: First dose [place] (VITAMIN C) 00 on Tue Medica l tablet 500 05/30/20 at [facility] mg 0115, Until Discontinu ed, Routine cholecalcif [...] -11 Oral, ity of (TYLENOL) 06:01: Q6HPRN [place] tablet 650 34 Starting Medic al mg Tue Branch 05/30/20 at 0101, Until Discontinu ed, Routine, Temp > 38.5 C ondansetron 2020-0 Yes 4mg 4 mg, Slow Univers (ZOFRAN 9-11 IV Push, ity of (PF)) 06:01: Q6HPRN [place] injection 4 16 Starting Medi [place] mg [...] [place] 60 mg 00 :00 dose, [facility] Medical 05/29/20 at Branch 2215, LICO albuterol 2020- No 8{puff} 8 Puff, U nivers (VENTOLIN) 05-30 Inhalation it y of inhaler 8 01:45: 01:04 , ONCE, 1 [place] Puff 00 :00 dose, [facility] 05/29/20 at Branch 2045, LICO
Is this order for a patient with suspected or confirmed COVID-19 infection? Yes atorvastati 2019- No [id number] 20mg Take 1 Univers n (LIPITOR) 01-27 tablet by it y of 20 mg 00:00: 00:00 mouth at [place] tablet 00 :00 bedtime. Medical Branch Insulin 2020- No [id number] 8U inject 8 U nivers Glargine 01-27 [...] directed ity of (ACCU-CHEK 00:00: [place] WILLIAM) [place] [address] Medical Branch Blood-Gluco Yes Use as [facility] ers se Meter 4-07 directed ity of (ACCU-CHEK 00:00: [place] WILLIAM) [place] [address] Medical Branch EXFORGE 2020- No TAKE 1 [...] mm[Hg] Univer sity of pressure [facility] Diastolic blood 2020-06-04 20:55:00 85 mm[Hg] Unive rsity [facility] Respiratory rate 2020-06-04 20:55:00 18 /min [facility] Oxygen saturation in 2020-06-04 20:55:00 92 /min [facility] blood by [facility] Pulse oximetry Branch Heart rate 2020-06-04 20:00:00 67 /min [facility] Body temperature 2020-06-04 20:00:00 36.06 Razia [facility] Body weight 2020-06-03 06:15:00 65.998 kg [facility] BMI 2020-06-03 06:15:00 24.21 kg/m2 [facility] Body height 2020-05-30 06:15:00 165.1 cm [facility] Systolic blood 2020-06-04 20:55:00 156 mm[Hg] Univer sity of pressure [facility] Diastolic blood 2020-06-04 20:55:00 85 mm[Hg] Unive rsity of [facility] Respiratory rate 2020-06-04 20:55:00 18 /min [facility] Oxygen saturation in 2020-06-04 20:55:00 92 /min [facility] Arterial blood by [facility] Pulse oximetry Branch Heart rate 2020-06-04 20:00:00 67 /min [facility] Body temperature 2020-06-04 20:00:00 36.06 Razia [facility] Body weight 2020-06-03 06:15:00 65.998 kg [facility] BMI 2020-06-03 06:15:00 24.21 kg/m2 [facility] Body height 2020-05-30 06:15:00 165.1 cm [facility] Procedures Procedure Date / Time Performing Clinician Source Performed POCT GLUCOSE (AUTOMATED) 2020-06-04 21:56:00 [facility]ben [facility]SE (AUTOMATED) 2020-06-04 16:48:00 Arben Julien Uni [facility] XR CHEST 1 VW 2020-06-04 13:56:16 [facility] [place] [facility] POCT GLUCOSE (AUTOMATED) 2020-06-04 12:44:00 Arben [facility] POCT GLUCOSE (AUTOMATED) 2020-06-04 01:32:00 [facility]ben [facility] POCT GLUCOSE (AUTOMATED) 2020-06-03 21:46:00 Arben uJlien [facility] PO[facility] GLUCOSE (AUTOMATED) 2020-06-03 16:54:00 Arben Julien [facility] POCT GLUCOSE (AUTOMATED) 2020-06-03 12:50:00 [facility]ben [facility] COMP. METABOLIC PANEL 2020-06-03 11:37:00 Sukhwinder Hughes [facility] ([id number]) [facility] CBC WITH DIFF 2020-06-03 11:36:00 Sukhwinder Hughes [facility] POCT GLUCOSE (AUTOMATED) 2020-06-03 01:18:00 [facility]ben [facility] POCT GLUCOSE (AUTOMATED) 2020-06-02 21:22:00 [facility]ben [facility] [place] MODIFIED BARIUM 2020-06-02 19:00:00 Rufus Goodwin [facility] POCT GLUCOSE (AUTOMATED) 2020-06-02 16:59:00 Arben Julien [facility] POCT GLUCOSE (AUTOMATED) 2020-06-02 13:26:00 Arben Julien [facility] MAGNESIUM 2020-06-02 10:40:00 Buddy [facility] COMP. METABOLIC PANEL 2020-06-02 10:40:00 Rufus Goodwin [facility] ([id number]) [facility] CBC WITH DIFF 2020-06-02 10:40:00 Arben Julien [facility] POCT GLUCOSE (AUTOMATED) 2020-06-01 21:51:00 Arben Julien [facility] POCT GLUCOSE (AUTOMATED) 2020-06-01 17:00:00 Arben Julien [facility] BLOOD CULTURE SCREEN 2020-06-01 15:42:00 Rufus Goodwin [facility] BLOOD CULTURE SCREEN 2020-06-01 15:29:00 Rufus Goodwin [facility] POCT GLUCOSE (AUTOMATED) 2020-06-01 13:18:00 [facility]ben [facility] MAGNESIUM 2020-06-01 10:14:00 Buddy [facility] COMP. METABOLIC PANEL 2020-06-01 10:14[facility]00 [id number] ACUTE CARE VENOUS BLOOD 2020-06-01 10:14:00 Arben Julien [facility] GAS [facility] CBC WITH DIFF 2020-06-01 10:14:00 Wily hilda [facility] N-TERMINAL PRO-BNP 2020-06-01 10:14:00 Arben Julien [facility] POCT GLUCOSE (AUTOMATED) 2020-06-01 00:42:00 Arben Julien [facility] POCT GLUCOSE (AUTOMATED) 2020-05-31 21:51:00 Arben Julien [facility] AMMONIA, PLASMA 2020-05-31 17:01:00 Buddy [facility] POCT GLUCOSE (AUTOMATED) 2020-05-31 16:59:00 Arben Julien [facility] URIC ACID 2020-05-31 08:32:00 Wily [facility] MAGNESIUM 2020-05-31 08:32:00 Wily [facility] TROPONIN I 2020-05-31 08:32:00 Wily [facility] COMP. METABOLIC PANEL 2020-05-31 08:32:00 Arben Julien [facility] ([id number] CBC WITH DIFF 2020-05-31 08:32:00 Wily [facility] N-TERMINAL PRO-BNP 2020-05-31 08:32:00 Wily hilda [facility] POCT GLUCOSE (AUTOMATED) 2020-05-31 00:32:00 Arben Julien [facility] POCT GLUCOSE (AUTOMATED) 2020-05-30 20:44:00 Arben Julien [facility] POCT GLUCOSE (AUTOMATED) 2020-05-30 17:04:00 Arben Julien [facility] TROPONIN I 2020-05-30 16:25:00 Arben Julien [facility] ECHO ROUTINE W/DOPPLER 2020-05-30 16:08:22 Arben Julien [facility] POCT GLUCOSE (AUTOMATED) 2020-05-30 13:56:00 Arben Julien [facility] CT THORAX WO CONTRAST 2020-05-30 10:26:42 Arben Julien [facility] SEDIMENTATION RATE 2020-05-30 09:51:00 Arben Julien [facility] CBC WITH DIFF 2020-05-30 09:51:00 Wily [facility] URIC ACID 2020-05-30 08:34:00 Wily [facility] MAGNESIUM 2020-05-30 08:34:00 Wily [facility] CORTISOL AM 2020-05-30 08:34:00 Wily [facility] TROPONIN I 2020-05-30 08:34:00 Wily [facility] COMP. METABOLIC PANEL 2020-05-30 08:34:00 Arben Julien [facility] ([id number]) Medical [place] IRON PANEL 2020-05-30 08:34:00 Wily [facility] N-TERMINAL PRO-BNP 2020-05-30 08:34:00 Wily hilda [facility] LEGIONELLA URINARY 2020-05-30 08:29:00 Wily hilda [facility] ANTIGEN TST [facility] SODIUM, URINE RANDOM 2020-05-30 08:28:00 Wily hilda [facility] PROTEIN CREAT RATIO 2020-05-30 08:28:00 Arben Julien [facility] URINE [facility] PNEUMOCOCCAL ANTIGEN 2020-05-30 08:27:00 Wily hilda [facility] OSMOLALITY URINE 2020-05-30 08:25:00 Wily [facility] UREA NITROGEN, URINE 2020-05-30 08:25:00 Wily hilda [facility] URINE CULTURE 2020-05-30 08:24:00 Wily [facility] OSMOLALITY SERUM 2020-05-30 07:08:00 Wily [facility] VITAMIN B12, LEVEL 2020-05-30 07:08:00 Wily hilda [facility] FOLATE 2020-05-30 07:08:00 Wily hilda [facility] PROTHROMBIN TIME / INR 2020-05-30 07:08:00 Arben Julien [facility] MYCOPLASMA PNEUMONIAE 2020-05-30 07:08:00 Arben Julien [facility] ANTIBODY, IGM [facility] VITAMIN D, 25-OH 2020-05-30 07:08:00 Arben Julien [facility] PROCALCITONIN 2020-05-30 07:08:00 Arben Julien [place] [facility] BLOOD CULTURE SCREEN 2020-05-30 07:07:00 Arben Julien [facility] BLOOD CULTURE WORKUP 2020-05-30 07:07:00 Arben Julien [facility] BLOOD CULTURE WORKUP 2020-05-30 07:07:00 Arben Julien [facility] GRAM POSITIVE BLOOD 2020-05-30 07:07:00 Arben Julien [facility] PATHOGENS DNA [facility] PROBE-AEROBIC RESPIRATORY PANEL BY PCR 2020-05-30 05:20:00 Arben Julien [facility] COVID-19 (PCR MOLECULAR 2020-05-30 05:20:00 Arben Julien [facility] TESTING) [facility] Branch EXTERNAL PROVIDER 2020-05-30 05:01:00 Doctor Unassigned, No [facility] RECORDS Name [facility] URINALYSIS 2020-05-30 03:39:00 Trice [facility] XR CHEST 1 VW 2020-05-30 01:45:07 Trice Kraft [facility] CT HEAD WO CONTRAST 2020-05-30 01:34:53 Trice Kraft [facility] EKG-12 LEAD 2020-05-30 01:08:00 Trice K[facility] AC ABG + LACTIC ACID 2020-05-30 01:06:00 Trice Kraft [facility] POCT GLUCOSE(AGE 2020-05-30 01:04:00 Trice Kraft [facility] >30DAYS) [facility] POCT GLUCOSE (AUTOMATED) 2020-05-30 01:03:00 Trice [facility]raft [facility] PHOSPHORUS 2020-05-30 00:59:00 Wily, [facility] CREATINE KINASE 2020-05-30 00:59:00 Wily hilda [facility] URIC ACID 2020-05-30 00:59:00 Wily [facility] MAGNESIUM 2020-05-30 00:59:00 Wily [facility] FERRITIN SERUM 2020-05-30 00:59:00 Wily [facility] TROPONIN I 2020-05-30 00:59:00 Trice [facility] THYROID STIMULATING 2020-05-30 00:59:00 Wily hilda [facility] HORMONE [facility] COMP. METABOLIC PANEL 2020-05-30 00:59:00 Trice Kraft [facility] ([id number]) Medical Branch LIPID PANEL 2020-05-30 00:59:00 Wily hilda [facility] ([id number])(TOTAL Medical Branch CHOLESTEROL, TRIGLYCERIDES, HDL) CBC WITH DIFF 2020-05-30 00:59:00 Trice K[facility] GLYCOSYLATED HEMOGLOBIN 2020-05-30 00:59:00 Arben Julien [facility] (A1C) Medical Branch N-TERMINAL PRO-BNP 2020-05-30 00:59:00 Trice Kraft [facility] COVID-19 (ID NOW RAPID 2020-05-30 00:59:00 Trice Kraft [facility] TESTING) Medical Branch EKG-12 LEAD 2020-05-30 00:39:36 Trice Kraft [facility] NOTICE OF PRIVACY 2020-05-29 23:34:11 Doctor Unassigned, No [facility] PRACTICES Name Medical Branch CONSENT/REFUSAL FOR 2020-05-29 23:33:17 Doctor Unassigned, No [facility] DIAGNOSIS AND TREATMENT Name Medical Branch Encounters Start End Encounter Admission Attending Care Care Encounter Source Date/Time Date/Time Type Type Clinicians Facility Department ID 2022-01-27 Inpatient ALONSO HU [facility] Surgery [id number] SLE 14:58:54 2022-02-08 2022-02-08 Outpatient [facility] [id number] SLE 00:00:00 00:00:00 2022-01-20 2022-01-25 Inpatient ER JASVIR [facility] [id number] [facility] 01:13:00 14:52:00 [facility] Med 2022-01-20 2022-01-20 [facility] [id number] 00:00:00 23:59:00 [place] e of Medicin e 2020-06-05 2020-06-05 Transition Mary Kay Cerna [id number] [facility] 00:00:00 00:00:00 of Care Cody Minery [id number] ity of [place] [id number] [facility] [id number] [facility] 403 Branch 2020-06-05 2020-06-05 Transition Mary Kay Cerna [id number] 00:00:00 00:00:00 of Care Cody Minery [id number] [place] [id number] [facility] 2020-05-29 2020-06-04 [facility] [id number] Univers 18:50:00 17:57:00 Encounter WilyArben chew [id number] ity of [place] [id number] [facility] [id number] [place] [id number] Branch 2020-05-29 2020-06-04 [facility] 1.2.840. [id number] 18:50:00 17:57:00 Encounter WilyArben chew [id number] [place] [id number] [place] [id number] [facility] 2020-05-29 2020-05-29 Emergency X [facility] ERT [id number] Univers 18:28:00 [facility]:28[facility] Test Description Test Time Test Comments Results Result Comments Source ANTI-MITOCHONDRIAL AB, REFLEX TO TITER 2022-02-04 07:59:23 Test Item Value Reference Range Interpretation Comme nts SCAN RESULT (test code = 5949217) PHOSPHATIDYLETHANOL, [id number] 11:24:39 Test Item Value Reference Range Interpretation Comments PHOSPHATIDYLETHANOL (PETH) See scanned (test code = 1902455) report See scanned reportPOCT-GLUCOSE [id number] 09:57:09 Test Item Value Reference Range Interpretation Comments POC-GLUCOSE METER 216 mg/dL 70-110 H : TESTED A T [facility] 6720 (BEAKER) (test code = LATOYA Edgar [place], 1538) [address]: Optical Glass Inspector/Techni diaz ID = [id number] for Aleksey [place] (pca2)Pebbles BASIC METABOLIC [id number] 05:33:08 Test Item Value Reference Range Interpretation [...] S NOT APPLICABLE FOR DIALYSIS PATIEN TS. Optical Glass Inspector ID - PIAYA LCBC W/PLT COUNT & AUTO [id number] 04:37:52 Test Item Value Reference Range Interpretation [...] PERCENT (BEAKER) (test code = 2801) POCT-GLUCOSE [id number] 16:00:26 Test Item Value Reference Range Interpretation Comments POC-GLUCOSE METER 399 mg/dL 70-110 H : TESTED A T [facility] 6720 (BEAKER) (test code = LATOYA [place], 1538) [address]: Optical Glass Inspector/Techni diaz ID = [id number] for Maribel Rhoades BASIC METABOLIC [id number] 06:39:45 Test Item Value Reference Range Interpretation [...] S NOT APPLICABLE FOR DIALYSIS PATIEN TS. Optical Glass Inspector ID - PIAYA LCBC W/PLT COUNT & AUTO [id number] 05:29:49 Test Item Value Reference Range Interpretation [...] PERCENT (BEAKER) (test code = 2801) POCT-GLUCOSE [id number] 21:12:45 Test Item Value Reference Range Interpretation Comments POC-GLUCOSE METER 156 mg/dL 70-110 H : Notified RN/: (GAEL) (test code = TESTED AT [place] [address]) [facility], [address]: Optical Glass Inspector/Techni diaz ID = [id number] for HAZEL CHUN POCT-GLUCOSE [id number] 19:36:30 Test Item Value Reference Range Interpretation Comments POC-GLUCOSE METER 209 mg/dL 70-110 H : Notified RN/: (GAEL) (test code = TESTED AT [place] [address]) [facility], [address]: Optical Glass Inspector/Techni diaz ID = [id number] for HAZEL CHUN POCT-GLUCOSE [id number] 16:34:24 Test Item Value Reference Range Interpretation Comments POC-GLUCOSE METER 414 mg/dL 70-110 HH : Notified RN/: TESTED (BEAKER) (test code AT [facility] 67[address] [facility] = 1538) [facility], [address]: Optical Glass Inspector/Techni diaz ID = [id number] for Anabel Silverio POCT-GLUCOSE [id number] 12:12:54 Test Item Value Reference Range Interpretation Comments POC-GLUCOSE METER 180 mg/dL 70-110 H : [facility] (BEAKER) (test code [facility], = 1538) [address]: Optical Glass Inspector/Techni diaz ID = [id number] for Anabel Silverio POCT-GLUCOSE [id number] 07:53:32 Test Item Value Reference Range Interpretation Comments POC-GLUCOSE METER 263 mg/dL 70-110 H : TESTED A T [facility] 6720 (BEAKER) (test code [facility], = 1538) [address]: Optical Glass Inspector/Techni diaz ID = [id number] for Anabel Silverio COMPREHENSIVE METABOLIC [id number] 07:29:57 Test Item Value Reference Range Interpretation [...] S NOT APPLICABLE FOR DIALYSIS PATIEN TS. Optical Glass Inspector ID - SHANITA MSpecimen slightly ictericCBC W/PLT COUNT & AUTO [id number] 07:13:58 Test Item Value Reference Range Interpretation [...] PERCENT (BEAKER) (test code = 2801) POCT-GLUCOSE [id number] 21:11:42 Test Item Value Reference Range Interpretation Comments POC-GLUCOSE METER 138 mg/dL 70-110 H : Notified RN/MD: ([facility]) (test code = TESTED AT [place] [address]38) [facility], [address]: Optical Glass Inspector/Techni diaz ID = [id number] for AIDAN CHUNY POCT-GLUCOSE [id number] 16:54:38 Test Item Value Reference Range Interpretation Comments POC-GLUCOSE METER 327 mg/dL 70-110 H : TESTED [place] T [place] [address] ([facility]) (test code [facility], = 1538) [address]: Optical Glass Inspector/Techni diaz ID = [id number] for RED MCKEE HEPATIC FUNCTION [id number] 08:53:43 Test Item Value Reference Range Interpretation [...] code = 359 U/L 6-55 H 347) Optical Glass Inspector ID - DBSpecimen slightly ictericPOCT-GLUCOSE [id number] 08:02:49 Test Item Value Reference Range Interpretation Comments POC-GLUCOSE METER 262 mg/dL 70-110 H : TESTED A T [facility] 6720 (BEAKER) (test code [place], = 1538) [address]: Optical Glass Inspector/Techni diaz ID = [id number] for RED MCKEE BASIC METABOLIC [id number] 05:00:34 Test Item Value Reference Range Interpretation [...] S NOT APPLICABLE FOR DIALYSIS PATIEN TS. Optical Glass Inspector ID - CLAUDIO GSpecimen slightly ictericCBC W/PLT COUNT & AUTO [id number] 04:57:06 Test Item Value Reference Range Interpretation [...] (BEAKER) (test code = 2801) U/S, RENAL, [id number] 00:08:00Reason for exam:->[facility] : 1940 Sex: MFINAL REPORT [...] Knox MDReport Verified Date/Time: 01/22/2022 00:08:17 POCT-GLUCOSE [id number] 21:45:31 Test Item Value Reference Range Interpretation Comments POC-GLUCOSE METER 258 mg/dL 70-110 H : TESTED A T [facility] 6720 (BEAKER) (test code = PAUL[facility]OM H[facility], 1538) [address]: Optical Glass Inspector/Techni diaz ID = [id number] for ZACK MORALES, ABDOULAYETU CREATININE, RANDOM [id number] 19:56:51 Test Item Value Reference Range Interpretation Comments CREATININE URINE (ANDREWAKER) (test 23.7 mg/dL code = 375) Reference Range: No NormalsOperator ID - DBPROTEIN, RANDOM [id number] 19:56:51 Test Item Value Reference Range Interpretation Comments PROTEIN, URINE (ANDREWAKER) (test code = 62 mg/dL 0-14 H 1569) Optical Glass Inspector ID - DBURINALYSIS W/ [id number] 19:47:32 Test Item Value Reference Range Interpretation [...] = 1521) SOURCE(BEAKER) (test code = 2795) Optical Glass Inspector ID - [auto]Optical Glass Inspector ID - techPOCT-GLUCOSE [id number] 16:23:46 Test Item Value Reference Range Interpretation Comments POC-GLUCOSE METER 270 mg/dL 70-110 H : TESTED A T [facility] 6720 (BEAKER) (test code = [place], 1538) [address]: Optical Glass Inspector/Techni diaz ID = [id number] for AR JC, JENNIFFER KAMAR TITER AND [id number] 11:55:46 Test Item Value Reference Range Interpretation Comments KAMAR TITER (BEAKER) (test code = :40 1541) KAMAR PATTERN (BEAKER) (test code = Homogeneous 1781) ANTI-NUCLEAR ANTIBODY (KAMAR)2022-01-21 11:55:40 Test Item Value Reference Range Interpretation Comments ANTI-NUCLEAR ANTIBODY (KAMAR) (BEAKER) Positive Negative A (test code = 418) Test performed by IFA method.POCT-GLUCOSE [id number] 11:43:49 Test Item Value Reference Range Interpretation Comments POC-GLUCOSE METER 225 mg/dL 70-110 H : TESTED A T [facility] 6720 (BEAKER) (test code = [facility], 1538) [address]: Optical Glass Inspector/Techni diaz ID = [id number] for ELIZABETH DUFFY HEPATIC FUNCTION [id number] 10:49:28 Test Item Value Reference Range Interpretation [...] code = 455 U/L 6-55 H 347) Optical Glass Inspector ID - BSSpecimen moderately ictericPOCT-GLUCOSE [id number] 08:08:00 Test Item Value Reference Range Interpretation Comments POC-GLUCOSE METER 172 mg/dL 70-110 H : TESTED A T [facility] 6720 (BEAKER) (test code = [facility], 1538) [address]: Optical Glass Inspector/Techni diaz ID = [id number] for ELIZABETH DUFFY CBC W/PLT COUNT & AUTO [id number] 05:10:56 Test Item Value Reference Range Interpretation [...] (BEAKER) (test code = 2801) BASIC METABOLIC [id number] 05:03:58 Test Item Value Reference Range Interpretation [...] S NOT APPLICABLE FOR DIALYSIS PATIEN TS. Optical Glass Inspector ID - SHANITA MSpecimen slightly [id number] 04:54:21 Test Item Value Reference Range Interpretation Comments MAGNESIUM (BEJAMARI) (test code = 1.9 mg/dL 1.6-2.6 627) Optical Glass Inspector ID - SHANITA MU/S, ABDOMINAL, WITH [id number] 00:51:00Reason for exam:->elevated [facility] : 1940 Sex: MFINAL REPORT [...] Ward MDReport Verified Date/Time: 01/21/2022 00:51:44 POCT-GLUCOSE [id number] 21:06:06 Test Item Value Reference Range Interpretation Comments POC-GLUCOSE METER 248 mg/dL 70-110 H : TESTED A T [facility] 6720 (GAEL) (test code = [place] [facility], 1538) [address]: Optical Glass Inspector/Techni diaz ID = [id number] for STACEY GARRETT HEPATITIS B CORE ANTIBODY, [id number] 18:10:17 Test Item Value Reference Range Interpretation Comments HEPATITIS B CORE TOTAL ANTIBODY Reactive Nonreactive A (GAEL) (test code = 497) Optical Glass Inspector ID - BSOperator ID - BSOperator ID - BSHEPATITIS C [id number] 17:50:30 Test Item Value Reference Range Interpretation Comments HEPATITIS C ANTIBODY (GAEL) Nonreactive Nonreactive (test code = 367) Optical Glass Inspector ID - BSHEPATITIS B SURFACE [id number] 17:50:24 Test Item Value Reference Range Interpretation Comments HEPATITIS B SURFACE ANTIGEN (2) Nonreactive Nonreactive (BEAKER) (test code = 2585) Specimen is considered negative for HBsAg.HEPATITIS B SURFACE [id number] 17:50:24 Test Item Value Reference Range Interpretation Comments HEPATITIS B SURFACE ANTIBODY 830.9 mIU/mL <8.0 H (BEAKER) (test code = 647) Optical Glass Inspector ID - BSHEPATITIS B CORE ANTIBODY, [id number] 17:36:49 Test Item Value Reference Range Interpretation Comments HEPATITIS B CORE IGM ANTIBODY Nonreactive Nonreactive (BEAKER) (test code = 645) Optical Glass Inspector ID - BSHEPATITIS A ANTIBODY, [id number] 17:36:49 Test Item Value Reference Range Interpretation Comments HEPATITIS A IGG ANTIBODY (BEAKER) Nonreactive Nonreactive (test code = 2797) Optical Glass Inspector ID - BSALPHA FETOPROTEIN (AFP), TUMOR [id number] 17:36:48 Test Item Value Reference Range Interpretation Comments ALPHA-FETOPROTEIN (BEAKER) (test 3.7 ng/mL <10.0 code = 1094) Optical Glass Inspector ID - BSIMMUNOGLOBULIN G (IGG)2022-01-20 17:15:56 Test Item Value Reference Range Interpretation Comments IMMUNOGLOBULIN G (IGG) 1081 mg/dL See_Comment [Aut omated message] (BEAKER) (test code = The sy stem which 427) generated this result transmit moshe reference range : 540-1,822. The reference range was not used to interpret this result as normal/abnormal . Optical Glass Inspector ID - BSIRON, TIBC, % SAT. (WITHOUT FERRITIN)2022-01-20 17:15:56 Test Item Value Reference Range Interpretation Comments IRON (BEAKER) (test code = 547) 94.0 ug/dL 40.0-160.0 TOTAL IRON BINDING CAPACITY 245 ug/dL 250-450 L (BEAKER) (test code = 769) IRON % SATURATION (2) (BEAKER) 38 % 20-55 (test code = 2590) Optical Glass Inspector ID - BSPOCT-GLUCOSE [id number] 16:55:44 Test Item Value Reference Range Interpretation Comments POC-GLUCOSE METER 226 mg/dL 70-110 H : [facility] (BEAKER[facility] (test code = [place], 1538) [address]: Optical Glass Inspector/Techni diaz ID = [id number] for Lauryn MONIQUE DUOOM-9-[id number] 16:54:50 Test Item Value Reference Range Interpretation Comments ALPHA-1 ANTITRYPSIN (GAEL) 162.50 mg/dL 90.00-200.00 (test code = 502) Optical Glass Inspector ID - [id number] 16:52:28 Test Item Value Reference Range Interpretation Comments FERRITIN (ANDREWAKER) (test code = 1286.44 ng/mL 5.00-275.00 H 361) Optical Glass Inspector ID - BSPOCT-GLUCOSE [id number] 11:44:46 Test Item Value Reference Range Interpretation Comments POC-GLUCOSE METER 207 mg/dL 70-110 H : TESTED A T [facility] 6720 (GAEL) (test code [facility], = 1538) [address]: Optical Glass Inspector/Techni diaz ID = [id number] for RED MCKEE HEMOGLOBIN [id number] 10:30:47 Test Item Value Reference Range Interpretation [...] 5.7- 6.4% indicates increased risk for diabetes (prediabetes)."Optical Glass Inspector ID - ADMRAD, CHEST, 2 [id number] 10:28:00Reason for exam:->concern for heart failureDiagnosis:->Shortness of breath [facility] : 1940 Sex: MFINAL REPORT INDICATION: [...] the right lower lung. Signed: Meghan Poole Verified Date/Time: 01/20/2022 10:28:13 Reading Location: [facility] Radiology Reading Room POCT- GLUCOSE [id number] 07:47:02 Test Item Value Reference Range Interpretation Comments POC-GLUCOSE METER 173 mg/dL 70-110 H : TESTED A T [facility] 6720 (BEAKER) (test code [facility], = 1538) [address]: Optical Glass Inspector/Techni diaz ID = [id number] for RED MCKEE POCT-GLUCOSE [id number] 03:51:00 Test Item Value Reference Range Interpretation Comments POC-GLUCOSE METER 188 mg/dL 70-110 H : TESTED A T [facility] 6720 (BEAKER) (test code = [place] [facility], 1538) [address]: Optical Glass Inspector/Techni diaz ID = [id number] for HAZEL CHUN BASIC METABOLIC [id number] 03:35:28 Test Item Value Reference Range Interpretation [...] S NOT APPLICABLE FOR DIALYSIS PATIEN TS. Optical Glass Inspector ID - SHANITA MSpecimen moderately ictericB-TYPE NATRIURETIC FACTOR (BNP) 2022-01-20 03:16:05 Test Item Value Reference Range Interpretation Comments B-TYPE NATRIURETIC PEPTIDE (BEAKER) 319 pg/mL 0-100 H (test code = 700) Optical Glass Inspector ID - SHANITA MHIGH SENSITIVITY TROPONIN [id number] 03:16:00 Test Item Value Reference Range Interpretation Comments HIGH SENSITIVITY 35 pg/ml See_Comment [Automated message] TROPONIN I (test code = The system which 7671650) generated this result transmitted ref erence range: <=35. Th e reference range was not used to int erpret this result as normal/abnormal . Optical Glass Inspector ID - SHANITA MThe MOTORBOAT MECHANIC STAT High Sensitivity Troponin-I results should be used in conjunction with other diagnostic information such as ECG, clinical observations and information, and patient symptoms to aid in the diagnosis of AR.HEPATIC FUNCTION [id number] 03:14:30 Test Item Value Reference Range Interpretation [...] code = 666 U/L 6-55 H 347) Optical Glass Inspector ID - SHANITA MSpecimen moderately [id number] 03:14:29 Test Item Value Reference Range Interpretation Comments MAGNESIUM (BEAKER) (test code = 1.6 mg/dL 1.6-2.6 627) Optical Glass Inspector ID - SHANITA MLIPID [id number] 03:14:29 Test Item Value Reference Range Interpretation [...] Borderline 130-159 High 160-189 Very High >=190 Optical Glass Inspector ID - SHANITA MSpecimen moderately ictericCBC W/PLT COUNT & AUTO [id number] 02:51:43 Test Item Value Reference Range Interpretation [...] Interpretation Comments POCT GLU (test code = 8414654098) 133 mg/dL 70-110 H Lab Interpretation (test code = Abnormal 13208-6) [facility] 17:13:00 Test Item Value Reference Range Interpretation Comments POCT GLU (test code = 4933425057) 154 mg/dL 70-110 H Lab Interpretation (test code = Abnormal 29679-4) [facility] 1 [id number] 14:00:56HISTORY: Follow-up of CHF. TECHNIQUE: AP view [...] ifany, residual pulmonary edema seen at this time.[facility] GLUCOSE (AUTOMATED)2020-06-04 13:19:00 Test Item Value Reference Range Interpretation Comments POCT GLU (test code = 4653388381) 98 mg/dL 70-110 Lab Interpretation (test code = Normal 09975-8) [facility] GLUCOSE (AUTOMATED)2020-06-04 01:35:00 Test Item Value Reference Range Interpretation Comments POCT GLU (test code = 5652707296) 192 mg/dL 70-110 H Lab Interpretation (test code = Abnormal 96413-4) [facility] GLUCOSE (AUTOMATED)2020-06-03 21:51:00 Test Item Value Reference Range Interpretation Comments POCT GLU (test code = 1731171179) 98 mg/dL 70-110 Lab Interpretation (test code = Normal 22971-0) [facility] GLUCOSE (AUTOMATED)2020-06-03 17:28:00 Test Item Value Reference Range Interpretation Comments POCT GLU (test code = 9000793865) 195 mg/dL 70-110 H Lab Interpretation (test code = Abnormal 75225-1) [facility] GLUCOSE (AUTOMATED)2020-06-03 13:43:00 Test Item Value Reference Range Interpretation Comments POCT GLU (test code = 3060137951) 98 mg/dL 70-110 Lab Interpretation (test code = Normal 76937-8) [facility] WITH [id number] 13:10:00 Test Item Value Reference Range Interpretation [...] RDW-SD (test code = 46.4 fL 38.5-51.6 71338-2) RDW-CV (test code = 13.7 % 12.1-15.4 788-0) PLT (test code = See_Comment L [Automated 777-3) message] The sy stem which generated this result transmitted reference range : 150 - 328 10*3/ ?L. The reference r martin was not used to interpret this result as normal/abnormal . MPV (test code = 10.5 fL 9.8-13 64606-8) NRBC/100 WBC (test See_Comment [Automat ed code = 3391014077) message] The system which generated this result transmitted reference range : 0.0 - 10.0 /100 WBCs. The refer ence range was not u sed to interpret th is result as normal/abnormal . NRBC x10^3 (test code <0.01 See_Comment [Auto mated = 0831465656) message] The s ystem which generated this result transmitted reference range : 10*3/?L. The reference range was not used to interpret this result as normal/abnormal . GRAN MAT (NEUT) % 55.9 % (test code = 770-8) IMM GRAN % (test code 0.40 % = 5634221422) LYMPH % (test code = 16.5 % 736-9) MONO % (test code = 12.4 % 5905-5) EOS % (test code = 14.0 % 713-8) BASO % (test code = 0.8 % 706-2) GRAN MAT x10^3(ANC) 1.35 10*3/uL 1.99-6.95 L (test code = 8203655269) IMM GRAN x10^3 (test <0.03 0-0.06 code = 8835013729) LYMPH x10^3 (test code 0.40 10*3/uL 1.09-3.23 L = 731-0) MONO x10^3 (test code 0.30 10*3/uL 0.36-1.02 L = 742-7) EOS x10^3 (test code = 0.34 10*3/uL 0.06-0.53 711-2) BASO x10^3 (test code <0.03 0.01-0.09 = 704-7) Lab Interpretation Abnormal (test code = 07324-7) [facility]. METABOLIC PANEL (08153)2020-06-03 12:46:00 Test Item Value Reference Range Interpretation Comments NA (test code = 136 mmol/L 135-145 2315710882) K (test code = 3.9 mmol/L 3.5-5 5212554204) CL (test code = 100 mmol/L 98-108 9458315558) CO2 TOTAL (test code = 27 mmol/L 23-31 3489027852) AGAP (test code = 2-16 1237281860) BUN (test code = 37 mg/dL 7-23 H 1404809131) GLUCOSE (test code = 87 mg/dL 70-110 9274909183) CREATININE (test code = 1.85 mg/dL 0.6-1.25 H 0504646351) TOTAL BILI (test code = 0.4 mg/dL 0.1-1.2 8018298736) CALCIUM (test code = 9.4 mg/dL 8.6-10.6 5158244940) T PROTEIN (test code = 6.3 g/dL 6.3-8.2 7671828759) ALBUMIN (test code = 3.2 g/dL 3.5-5 L 4536722367) ALK PHOS (test code = 58 U/L 34-122 6012609230) ALTv (test code = 22 U/L 5-50 1742-6) AST(SGOT) (test code = 31 U/L 13-40 8036317283) eGFR Calculation mL/min/1.73m2 (Non-) (test code = 9569896903) eGFR Calculation mL/min/1.73m2 () (test code = 9445716083) EMIR (test code = EMIR) Association of [...] tests). Lab Interpretation Abnormal (test code = 71637-0) [facility] 01:56:00 Test Item Value Reference Range Interpretation Comments POCT GLU (test code = 6836365861) 152 mg/dL 70-110 H Lab Interpretation (test code = Abnormal 41512-5) [facility] BARIUM SWALLOW, (COOKIE)2020-06-02 23:24:43 Flash laryngeal [...] nectar thick liquid, puree or jewelry solids. [facility], Radiant Results Inft 06/02/2020 6:25 PM CDTEXAM: [place] MODIFIED BARIUM [...] to the speech pathologist's report for further details.[facility] GLUCOSE (AUTOMATED)2020-06-02 21:24:00 Test Item Value Reference Range Interpretation Comments POCT GLU (test code = 129 mg/dL 70-110 H Notifi ed Provider 1671099256) Lab Interpretation (test Abnormal code = 09087-4) [facility] GLUCOSE (AUTOMATED)2020-06-02 17:12:00 Test Item Value Reference Range Interpretation Comments POCT GLU (test code = 159 mg/dL 70-110 H Notifi ed Provider 5615814727) Lab Interpretation (test Abnormal code = 09580-8) [facility] WITH [id number] 14:34:00 Test Item Value Reference Range Interpretation [...] RDW-SD (test code = 46.7 fL 38.5-51.6 80576-1) RDW-CV (test code = 13.9 % 12.1-15.4 788-0) PLT (test code = See_Comment [Automated 777-3) message] The sy stem which generated this result transmitted reference range : 150 - 328 10*3/ ?L. The reference r martin was not used to interpret this result as normal/abnormal . MPV (test code = 10.4 fL 9.8-13 07309-7) NRBC/100 WBC (test See_Comment [Automat ed code = 6330667706) message] The system which generated this result transmitted reference range : 0.0 - 10.0 /100 WBCs. The refer ence range was not u sed to interpret th is result as normal/abnormal . NRBC x10^3 (test code <0.01 See_Comment [Auto mated = 6206391817) message] The s ystem which generated this result transmitted reference range : 10*3/?L. The reference range was not used to interpret this result as normal/abnormal . GRAN MAT (NEUT) % 58.9 % (test code = 770-8) IMM GRAN % (test code 0.40 % = 2415336665) LYMPH % (test code = 11.3 % 736-9) MONO % (test code = 10.8 % 5905-5) EOS % (test code = 17.3 % 713-8) BASO % (test code = 1.3 % 706-2) GRAN MAT x10^3(ANC) 1.36 10*3/uL 1.99-6.95 L (test code = 9691240539) IMM GRAN x10^3 (test <0.03 0-0.06 code = 5227386336) LYMPH x10^3 (test code 0.26 10*3/uL 1.09-3.23 L = 731-0) MONO x10^3 (test code 0.25 10*3/uL 0.36-1.02 L = 742-7) EOS x10^3 (test code = 0.40 10*3/uL 0.06-0.53 711-2) BASO x10^3 (test code 0.03 10*3/uL 0.01-0.09 = 704-7) Lab Interpretation Abnormal (test code = 91996-1) [facility]2020-[facility] 13:45:00 Test Item Value Reference Range Interpretation Comments POCT GLU (test code = 6174290176) 105 mg/dL 70-110 Lab Interpretation (test code = Normal 88575-3) [facility] Clinic[facility] [id number] 13:39:00 Test Item Value Reference Range Interpretation Comments Blood Culture Staphylococcus Organism elvia ntified Workup (test epidermidis by DNA probeFor code = 600-7) susceptibility results, refer to culture # - [id number] Gram stain Gram positive cocci Anaerobi c Bottle (test code = 664-3) [facility] Clinic[facility] METABOLIC PANEL (12611)2020-06-02 13:10:00 Test Item Value Reference Range Interpretation Comments NA (test code = 133 mmol/L 135-145 L 5653170169) K (test code = 3.4 mmol/L 3.5-5 L 0006324955) CL (test code = 96 mmol/L 98-108 L 7260405211) CO2 TOTAL (test code = 28 mmol/L 23-31 8156236609) AGAP (test code = 2-16 0895414283) BUN (test code = 34 mg/dL 7-23 H 5523678978) GLUCOSE (test code = 135 mg/dL 70-110 H 0554822621) CREATININE (test code = 1.83 mg/dL 0.6-1.25 H 3719129943) TOTAL BILI (test code = 0.4 mg/dL 0.1-1.1 3394795065) CALCIUM (test code = 9.4 mg/dL 8.6-10.6 3485205990) T PROTEIN (test code = 6.0 g/dL 6.3-8.2 L 6703883365) ALBUMIN (test code = 3.1 g/dL 3.5-5 L 8312513396) ALK PHOS (test code = 52 U/L 34-122 0373835110) ALTv (test code = 25 U/L 5-50 1742-6) AST(SGOT) (test code = 31 U/L 13-40 5969343928) eGFR Calculation mL/min/1.73m2 (Non-) (test code = 2377026726) eGFR Calculation mL/min/1.73m2 () (test code = 5404498969) EMIR (test code = EMIR) Association of [...] tests). Lab Interpretation Abnormal (test code = 55977-4) [facility] Clinic[facility]UM2020-09-14 13:10:00 Test Item Value Reference Range Interpretation Comments MAGNESIUM (test code = 9279810986) 1.8 mg/dL 1.7-2.4 Lab Interpretation (test code = Normal 08041-1) [facility] ClinicMYCOPLASMA PNEUMONIAE ANTIBODY, [id number] 11:34:00 Test Item Value Reference Range Interpretation [...] an 12 months post-infection. Performed By: YUMIKO amado[address] [place] [address]H aboratory Director: Julisa Choi MD [Aut omated message] The sy stem which generated this result transmit moshe reference range : <=0.76. The reference r martin was not used to int erpret this result as normal/abnormal . [facility] CULTURE [id number] 22:31:00 Test Item Value Reference Range Interpretation Comments Blood Culture-Aerobic Culture positive. No growth AA P revious (test code = 16968-5) See Blood prelim inary Culture Workup verified resu lt for additional was Culture I n information. Progress on 05/30/2020 at 03 19 CDT Blood Culture positive. No growth AA Previous Culture-Anaerobic See Blood preliminar y (test code = 61014-4) Culture Workup veri fied result for additional was Culture I n information. Progress on 05/30/2020 at 07 CDT Lab Interpretation Abnormal (test code = 33206-4) [facility] GLUCOSE (AUTOMATED)2020-06-01 21:59:00 Test Item Value Reference Range Interpretation Comments POCT GLU (test code = 3089683136) 101 mg/dL 70-110 Lab Interpretation (test code = Normal 60932-1) [facility] GLUCOSE (AUTOMATED)2020-06-01 17:53:00 Test Item Value Reference Range Interpretation Comments POCT GLU (test code = 1174380828) 184 mg/dL 70-110 H Lab Interpretation (test code = Abnormal 18190-4) [facility] CULTURE [id number] 17:20:00 Test Item Value Reference Range Interpretation Comments Blood Culture-Aerobic Culture positive. No growth AA P revious (test code = 66711-3) See Blood prelim inary Culture Workup verified resu lt for additional was Culture I n information. Progress on 05/30/2020 at 03 19 CDT Blood Culture positive. No growth AA Previous Culture-Anaerobic See Blood preliminar y (test code = 53044-1) Culture Workup veri fied result for additional was Culture I n information. Progress on 05/30/2020 at 07 01 CDT Lab Interpretation Abnormal (test code = 63259-7) [facility]2020-06-01 13:22:00 Test Item Value Reference Range Interpretation Comments POCT GLU (test code = 5772837586) 109 mg/dL 70-110 Lab Interpretation (test code = Normal 56541-4) [facility] [facility] [id number] 11:12:00 Test Item Value Reference Range Interpretation [...] RDW-SD (test code = 46.0 fL 38.5-51.6 22724-4) RDW-CV (test code = 13.8 % 12.1-15.4 788-0) PLT (test code = See_Comment L [Automated 777-3) message] The sy stem which generated this result transmitted reference range : 150 - 328 10*3/ ?L. The reference r martin was not used to interpret this result as normal/abnormal . MPV (test code = 10.3 fL 9.8-13 39328-2) NRBC/100 WBC (test See_Comment [Automat ed code = 1046995429) message] The system which generated this result transmitted reference range : 0.0 - 10.0 /100 WBCs. The refer ence range was not u sed to interpret th is result as normal/abnormal . NRBC x10^3 (test code <0.01 See_Comment [Auto mated = 4187469162) message] The s ystem which generated this result transmitted reference range : 10*3/?L. The reference range was not used to interpret this result as normal/abnormal . GRAN MAT (NEUT) % 71.9 % (test code = 770-8) IMM GRAN % (test code 0.30 % = 2574470723) LYMPH % (test code = 8.0 % 736-9) MONO % (test code = 10.5 % 5905-5) EOS % (test code = 8.4 % 713-8) BASO % (test code = 0.9 % 706-2) GRAN MAT x10^3(ANC) 2.32 10*3/uL 1.99-6.95 (test code = 9520048008) IMM GRAN x10^3 (test <0.03 0-0.06 code = 5969586211) LYMPH x10^3 (test code 0.26 10*3/uL 1.09-3.23 L = 731-0) MONO x10^3 (test code 0.34 10*3/uL 0.36-1.02 L = 742-7) EOS x10^3 (test code = 0.27 10*3/uL 0.06-0.53 711-2) BASO x10^3 (test code 0.03 10*3/uL 0.01-0.09 = 704-7) Lab Interpretation Abnormal (test code = 57062-2) [id number] 11:07:00 Test Item Value Reference Range Interpretation Comments NT-proBNP (test code 91574 pg/mL See_Comment H [Autom ated = 9272315013) message] The system which generated this result transmitted reference range : <=450. The reference range was not used to interpret this result as normal/abnormal . EMIR (test code = EMIR) Biotin has been reported to cause a negative bias, interpret results relative to patient's use of biotin. Lab Interpretation Abnormal (test code = 09737-5) [facility]. METABOLIC PANEL (03264)2020-06-01 11:03:00 Test Item Value Reference Range Interpretation Comments NA (test code = 136 mmol/L 135-145 1756748325) K (test code = 3.9 mmol/L 3.5-5 7511735881) CL (test code = 97 mmol/L 98-108 L 1547911350) CO2 TOTAL (test code = 30 mmol/L 23-31 5117603237) AGAP (test code = 2-16 0071783421) BUN (test code = 34 mg/dL 7-23 H 6543055373) GLUCOSE (test code = 112 mg/dL 70-110 H 8120623603) CREATININE (test code = 1.81 mg/dL 0.6-1.25 H 1436640057) TOTAL BILI (test code = 0.5 mg/dL 0.1-1.7 0727277591) CALCIUM (test code = 9.5 mg/dL 8.6-10.6 8885980131) T PROTEIN (test code = 6.2 g/dL 6.3-8.2 L 9870664812) ALBUMIN (test code = 3.2 g/dL 3.5-5 L 8100985306) ALK PHOS (test code = 58 U/L 34-122 5914653035) ALTv (test code = 32 U/L 5-50 1742-6) AST(SGOT) (test code = 38 U/L 13-40 7511103780) eGFR Calculation mL/min/1.73m2 (Non-) (test code = 5793235664) eGFR Calculation mL/min/1.73m2 () (test code = 9708031623) EMIR (test code = EMIR) Association of [...] tests). Lab Interpretation Abnormal (test code = 39755-2) [facility] 11:03:00 Test Item Value Reference Range Interpretation Comments MAGNESIUM (test code = 2332086224) 2.0 mg/dL 1.7-2.4 Lab Interpretation (test code = Normal 67633-5) [facility] CARE VENOUS BLOOD [id number] 10:21:00 Test Item Value Reference Range Interpretation Comments PH (test code = 7.32-7.42 9342670759) PCO2 GIFTY (test code = See_Comment [Auto mated message] The 7463489960) system which [employer] nerated this result transmit moshe reference range : 41 - 51 mmHg. The refer ence range was not used to interpret this result as normal/abnormal . PO2 GIFTY (test code = See_Comment [Autom ated message] The 1209438177) system which [employer] nerated this result transmit moshe reference range : 25 - 40 mmHg. The refer ence range was not used to interpret this result as normal/abnormal . HCO3 GIFTY (test code = See_Comment [Auto mated message] The 5176263182) system which [employer] nerated this result transmit moshe reference range : 24 - 28 mEq/L. The refe rence range was not used to interpret this result as normal/abnormal . AC VBE(BEAKER) (test mEq/L code = 0314514167) [facility]2020-06-01 01:53:00 Test Item Value Reference Range Interpretation Comments POCT GLU (test code = 1805825758) 124 mg/dL 70-110 H Lab Interpretation (test code = Abnormal 13281-2) [facility] GLUCOSE (AUTOMATED)2020-05-31 22:35:00 Test Item Value Reference Range Interpretation Comments POCT GLU (test code = 0763797457) 105 mg/dL 70-110 Lab Interpretation (test code = Normal 69859-9) [facility] GLUCOSE (AUTOMATED)2020-05-31 17:52:00 Test Item Value Reference Range Interpretation Comments POCT GLU (test code = 2365928021) 106 mg/dL 70-110 Lab Interpretation (test code = Normal 82644-0) [facility] [id number] 17:33:00 Test Item Value Reference Range Interpretation Comments AMMONIA (test code = 6050781017) <9 9-33 L Lab Interpretation (test code = Abnormal 58695-2) [facility] ClinicGRAM POSITIVE BLOOD PATHOGENS DNA [id number] 14:44:00 Test Item Value Reference Range Interpretation Comments Coagulase Negative Positive Negative A Staphylococcus (test code = 76692-8) EMIR (test code = EMIR) Coagulase negative [...] contact the Antimicrobial Stewardship Program with questions.Pager: ?[phone] Testing included eleven identification and three resistance marker targets. Lab Interpretation Abnormal (test code = 20250-3) [facility]2020-05-31 13:09:00 Test Item Value Reference Range Interpretation Comments POCT GLU (test code = 1937391562) 154 mg/dL 70-110 H Lab Interpretation (test code = Abnormal 63973-3) [facility] ClinicURINE [id number] 12:11:00 Test Item Value Reference Range Interpretation Comments URINE CULTURE (test No aerobic growth (< code = 630-4) 1000 CFU/mL) [facility]N-[facility]MINAL [id number] 11:51:00 Test Item Value Reference Range Interpretation Comments NT-proBNP (test code 18575 pg/mL See_Comment H [Autom ated = 9782219970) message] The system which generated this result transmitted reference range : <=450. The reference range was not used to interpret this result as normal/abnormal . EMIR (test code = EMIR) Biotin has been reported to cause a negative bias, interpret results relative to patient's use of biotin. Lab Interpretation Abnormal (test code = 69920-6) [facility]UR[facility] [id number] 11:25:00 Test Item Value Reference Range Interpretation Comments URIC ACID (test code = 9316075598) 9.0 mg/dL 3.6-8 H Lab Interpretation (test code = Abnormal 38950-3) [facility] ClinicCBC WITH [id number] 11:02:00 Test Item Value Reference Range Interpretation [...] RDW-SD (test code = 47.7 fL 38.5-51.6 53072-4) RDW-CV (test code = 14.0 % 12.1-15.4 788-0) PLT (test code = See_Comment L [Automated 777-3) message] The sy stem which generated this result transmitted reference range : 150 - 328 10*3/ ?L. The reference r martin was not used to interpret this result as normal/abnormal . MPV (test code = 10.5 fL 9.8-13 36049-9) NRBC/100 WBC (test See_Comment [Automat ed code = 4992282224) message] The system which generated this result transmitted reference range : 0.0 - 10.0 /100 WBCs. The refer ence range was not u sed to interpret th is result as normal/abnormal . NRBC x10^3 (test code <0.01 See_Comment [Auto mated = 9126385858) message] The s ystem which generated this result transmitted reference range : 10*3/?L. The reference range was not used to interpret this result as normal/abnormal . GRAN MAT (NEUT) % 81.0 % (test code = 770-8) IMM GRAN % (test code 0.40 % = 1435713794) LYMPH % (test code = 4.8 % 736-9) MONO % (test code = 11.5 % 5905-5) EOS % (test code = 1.7 % 713-8) BASO % (test code = 0.6 % 706-2) GRAN MAT x10^3(ANC) 4.23 10*3/uL 1.99-6.95 (test code = 4815470772) IMM GRAN x10^3 (test <0.03 0-0.06 code = 3461152390) LYMPH x10^3 (test code 0.25 10*3/uL 1.09-3.23 L = 731-0) MONO x10^3 (test code 0.60 10*3/uL 0.36-1.02 = 742-7) EOS x10^3 (test code = 0.09 10*3/uL 0.06-0.53 711-2) BASO x10^3 (test code 0.03 10*3/uL 0.01-0.09 = 704-7) Lab Interpretation Abnormal (test code = 87732-6) [facility] ClinicTROPONIN [id number] 10:45:00 Test Item Value Reference Range Interpretation Comments TROPONIN I (test 0.167 ng/mL See_Comment H [Automated code = 4681433935) message] The system which generated this result [...] ? Lab Interpretation Abnormal (test code = 29615-9) [facility] ClinicCOM[facility] METABOLIC PANEL (54098)2020-05-31 10:35:00 Test Item Value Reference Range Interpretation Comments NA (test code = 133 mmol/L 135-145 L 1528621135) K (test code = 3.4 mmol/L 3.5-5 L 8745549142) CL (test code = 95 mmol/L 98-108 L 6687022664) CO2 TOTAL (test code = 29 mmol/L 23-31 0760043806) AGAP (test code = 2-16 6178660569) BUN (test code = 36 mg/dL 7-23 H 3086662912) GLUCOSE (test code = 136 mg/dL 70-110 H 5877990172) CREATININE (test code = 1.71 mg/dL 0.6-1.25 H 5147964774) TOTAL BILI (test code = 0.8 mg/dL 0.1-1.0 9891389050) CALCIUM (test code = 9.4 mg/dL 8.6-10.6 2670956246) T PROTEIN (test code = 6.5 g/dL 6.3-8.2 0228052261) ALBUMIN (test code = 3.4 g/dL 3.5-5 L 3014957257) ALK PHOS (test code = 59 U/L 34-122 9464610235) ALTv (test code = 35 U/L 5-50 1742-6) AST(SGOT) (test code = 42 U/L 13-40 H 1842501042) eGFR Calculation mL/min/1.73m2 (Non-) (test code = 9611562272) eGFR Calculation mL/min/1.73m2 () (test code = 4867386053) EMIR (test code = EMIR) Association of [...] tests). Lab Interpretation Abnormal (test code = 75248-0) [facility]UM2020-[facility]-12 10:35:00 Test Item Value Reference Range Interpretation Comments MAGNESIUM (test code = 4245522599) 1.4 mg/dL 1.7-2.4 L Lab Interpretation (test code = Abnormal 42947-7) [facility]PO[facility]ATED)2020-05-30 21:17:00 Test Item Value Reference Range Interpretation Comments POCT GLU (test code = 6093909747) 105 mg/dL 70-110 Lab Interpretation (test code = Normal 76269-8) [facility] ClinicPNEUMOCOCCAL [id number] 19:20:00 Test Item Value Reference Range Interpretation Comments S. pneumoniae antigen Positive Negative A (test code = 0236764173) EMIR (test code = EMIR) S. pneumoniae vaccine may give false positive results in urine with this assay in the 48 hours following vaccination. Lab Interpretation (test Abnormal code = 36279-6) [facility] ClinicLEGIONELLA URINARY ANTIGEN [id number] 19:20:00 Test Item Value Reference Range Interpretation Comments Legionella Urinary Negative Negative Antigen (test code = 0413698563) EMIR (test code = EMIR) Negative for [...] test. Lab Interpretation (test Normal code = 24023-0) [facility] ClinicCORTISOL [id number] 18:48:00 Test Item Value Reference Range Interpretation Comments SHAYY AM (test code = 23.8 ug/dL 4.5-23 H 9821546500) EMIR (test code = EMIR) Biotin has been reported to cause a positive bias, interpret results relative to patient's use of biotin. Lab Interpretation (test Abnormal code = 11668-2) [facility]PO[facility])2020-05-30 17:17:00 Test Item Value Reference Range Interpretation Comments POCT GLU (test code = 4822073217) 117 mg/dL 70-110 H Lab Interpretation (test code = Abnormal 23789-9) [facility] ClinicTROPONIN [id number] 17:14:00 Test Item Value Reference Range Interpretation Comments TROPONIN I (test 0.222 ng/mL See_Comment H [Automated code = 0870356373) message] The system which generated this result [...] ? Lab Interpretation Abnormal (test code = 55614-9) [facility] ClinicOSMOLALITY [id number] 16:53:00 Test Item Value Reference Range Interpretation Comments OSMO U (test code = See_Comment [Automa moshe message] 1233588566) The system [employer] generated this result transmitted ref erence range: 50-1,100 mOsm/kg. The re ference range was not u sed to interpret this result as normal/abnor mal. Lab Interpretation (test Normal code = 09257-5) [facility] ClinicVITAMIN D, [id number] 16:43:00 Test Item Value Reference Range Interpretation Comments VIT D 25OH (test code = 29 ng/mL 25-80 63168-6) EMIR (test code = EMIR) Deficiency: <20 ng/mLInsufficiency : 20-24 ng/mLOptimal: 25-80 ng/mL Lab Interpretation (test Normal code = 23315-8) [facility] ClinicUREA NITROGEN, URINE [id number] 15:44:00 Test Item Value Reference Range Interpretation Comments UREA N UR (test code = 6850243747) 114 mg/dL [facility] ClinicCT THORAX WO [id number] 15:23:12 1. ?Pulmonary edema with moderate volume [...] sagittal MPR images were generated and reviewed.(Display cpjes-nb-hnba = 35 cm) FINDINGS: Lower neck/thyroid: Unremarkable. [...] sagittal MPR images were generated and reviewed.(Display deedc-ib-cqzn = 35 cm)FINDINGS:Lower neck/thyroid: Unremarkable.Lungs: Centrilobular septal [...] reviewed this study and agree with theabove report.[facility] 2020-05-30 14:53:00 Test Item Value Reference Range Interpretation Comments POCT GLU (test code = 7766466572) 100 mg/dL 70-110 Lab Interpretation (test code = Normal 72034-7) [facility] ClinicVITAMIN B12, [id number] 13:07:00 Test Item Value Reference Range Interpretation Comments VIT B12 (test code = 412 pg/mL 240-930 9809165053) EMIR (test code = EMIR) Biotin has been reported to cause a positive bias, interpret results relative to patient's use of biotin. Lab Interpretation (test Normal code = 24098-3) [facility] ClinicFOLATE2020-09-11 13:07:00 Test Item Value Reference Range Interpretation Comments FOLATE SER (test code = 8.4 ng/mL 3-20 Biot in has been 2521781769) reported to cau se a positive bias, interpret resul ts relative to patient's use o f biotin. Lab Interpretation (test Normal code = 56133-6) [facility] ClinicCORONAVIRUS COVID-19 [id number] 12:49:00 Test Item Value Reference Range Interpretation Comments SARS-CoV-2 PCR (test Not Detected Not Detected code = 16402-2) EMIR (test code = EMIR) [employer] Xpert ?Xpress SARS-CoV-2 Assay is a rapid, real-time RT-PCR test intended for the qualitative detection of nucleic acid from the SARS-CoV-2 in nasopharyngeal (DIRECTOR OF CARDIAC CATH LAB) specimens. It is used under Emergency Use [...] indicated. Lab Interpretation Normal (test code = 51777-5) [facility] ClinicRESPIRATORY PANEL BY [id number] 12:44:00 Test Item Value Reference Range Interpretation Comments Adenovirus (test code = Negative Negative 34632-8) Coronavirus HKU1 (test Negative Negative code = 22978-2) Coronavirus NL63 (test Negative Negative code = 91290-4) Coronavirus 229E (test Negative Negative code = 68097-4) Coronavirus OC43 (test Negative Negative code = 40808-9) Human Metapneumovirus Negative Negative (test code = 50450-0) Human Negative Negative Rhinovirus/Enterovirus (test code = 82196-1) Influenza A (test code = Negative Negative 02574-9) Influenza B (test code = Negative Negative 61400-6) Parainfluenza Virus 1 Negative Negative (test code = 92813-4) Parainfluenza Virus 2 Negative Negative (test code = 27759-1) Parainfluenza Virus 3 Negative Negative (test code = 45506-4) Parainfluenza Virus 4 Negative Negative (test code = 55088-3) Respiratory Syncytial Negative Negative Virus (test code = 09585-1) Bordetella parapertussis Negative Negative (test code = 95276-0) Bordetella pertussis Negative Negative (test code = 37519-2) Chlamydia pneumoniae Negative Negative (test code = 47770-1) Mycoplasma pneumoniae Negative Negative (test code = 25240-4) EMIR (test code = EMIR) Negative:A negative result does not rule-out infection. ?This assay does not test for all potential infectious agents. ? Positive:A positive test result does not necessarily indicate the presence of viable organism. ? Lab Interpretation (test Normal code = 77973-2) [facility] ClinicPROCALCITONIN2020-09-11 12:14:00 Test Item Value Reference Range Interpretation Comments Procalcitonin (test 0.06 ng/mL <0.07 code = 1790758524) EMIR (test code = EMIR) INTERPRETATION OF [...] lung abscess/empyema. For further information please refer to:[email or web address] Lab Interpretation Normal (test code = 12928-0) [facility] ClinicOSMOLALITY [id number] 11:49:00 Test Item Value Reference Range Interpretation Comments OSMOLALITY (test code = See_Comment [Au tomated message] 8425447875) The system [employer] generated this result transmitted ref erence range: 278 - 30 5 mOsm/kg. The re ference range was not u sed to interpret this result as normal/abnor mal. Lab Interpretation (test Normal code = 12057-7) [facility] ClinicN-TERMINAL [id number] 11:19:00 Test Item Value Reference Range Interpretation Comments NT-proBNP (test code 65843 pg/mL See_Comment H [Autom ated = 1579292337) message] The system which generated this result transmitted reference range : <=450. The reference range was not used to interpret this result as normal/abnormal . EMIR (test code = EMIR) Biotin has been reported to cause a negative bias, interpret results relative to patient's use of biotin. Lab Interpretation Abnormal (test code = 37694-8) [facility] ClinicSEDIMENTATION [id number] 11:01:00 Test Item Value Reference Range Interpretation Comments ESR (test code = See_Comment H [Automated message] 8402351929) The system [employer] generated this result transmitted ref erence range: 0 - 10 m m/HR. The reference r martin was not used to interpret this result as normal/abnor mal. Lab Interpretation (test Abnormal code = 89398-4) [facility] ClinicTROPONIN [id number] 10:57:00 Test Item Value Reference Range Interpretation Comments TROPONIN I (test 0.233 ng/mL See_Comment H [Automated code = 2298187794) message] The system which generated this result [...] ? Lab Interpretation Abnormal (test code = 93088-6) [facility] ClinicIRON [id number] 10:53:00 Test Item Value Reference Range Interpretation Comments IRON (test code = 0690879180) 37 ug/dL 50-160 L TIBC (test code = 1629989548) 259 ug/dL 250-410 % FE SAT (test code = 5278067202) 14 % 20-50 L Lab Interpretation (test code = Abnormal 95343-2) [facility] METABOLIC PANEL (72563)2020-05-30 10:44:00 Test Item Value Reference Range Interpretation Comments NA (test code = 135 mmol/L 135-145 0705775461) K (test code = 4.3 mmol/L 3.5-5 8420961384) CL (test code = 98 mmol/L 98-108 5184716091) CO2 TOTAL (test code = 26 mmol/L 23-31 9085677559) AGAP (test code = 2-16 1061666348) BUN (test code = 29 mg/dL 7-23 H 8629984448) GLUCOSE (test code = 127 mg/dL 70-110 H 1921035988) CREATININE (test code = 1.38 mg/dL 0.6-1.25 H 4352788858) TOTAL BILI (test code = 0.9 mg/dL 0.1-1.2 8546860470) CALCIUM (test code = 9.4 mg/dL 8.6-10.6 4842152696) T PROTEIN (test code = 6.6 g/dL 6.3-8.2 2494303199) ALBUMIN (test code = 3.7 g/dL 3.5-5 9765586202) ALK PHOS (test code = 65 U/L 34-122 8479210204) ALTv (test code = 28 U/L 5-50 1742-6) AST(SGOT) (test code = 42 U/L 13-40 H 1769726931) eGFR Calculation mL/min/1.73m2 (Non-) (test code = 2312324095) eGFR Calculation mL/min/1.73m2 () (test code = 3905366200) EMIR (test code = EMIR) Association of [...] tests). Lab Interpretation Abnormal (test code = 44036-1) [facility] ClinicMAGNESIUM2020-09-11 10:44:00 Test Item Value Reference Range Interpretation Comments MAGNESIUM (test code = 6748916278) 1.4 mg/dL 1.7-2.4 L Lab Interpretation (test code = Abnormal 10609-4) [facility] ClinicURIC [id number] 10:44:00 Test Item Value Reference Range Interpretation Comments URIC ACID (test code = 6861083539) 7.8 mg/dL 3.6-8 Lab Interpretation (test code = Normal 78832-4) [facility] ClinicPROTEIN CREAT RATIO URINE [id number] 10:29:00 Test Item Value Reference Range Interpretation Comments T. PROT U (test code = 104 mg/dL 2888-6) CREAT U (test code = 14.4 mg/dL 9533672399) Protein/Creatinine Ratio 0.0-2.0 H Urine (test code = 9887105237) EMIR (test code = EMIR) Random Urine Total Protein Reference Ranges Random Specimen: ? Less than 10 mg/dLFirst Morning Specimen: ? ?Less than 20 mg/dL ? Lab Interpretation (test Abnormal code = 53204-9) [facility] WITH [id number] 10:28:00 Test Item Value Reference Range Interpretation [...] RDW-SD (test code = 47.6 fL 38.5-51.6 90920-9) RDW-CV (test code = 14.2 % 12.1-15.4 788-0) PLT (test code = See_Comment L [Automated 777-3) message] The sy stem which generated this result transmitted reference range : 150 - 328 10*3/ ?L. The reference r martin was not used to interpret this result as normal/abnormal . MPV (test code = 10.5 fL 9.8-13 67820-0) NRBC/100 WBC (test See_Comment [Automat ed code = 9531286416) message] The system which generated this result transmitted reference range : 0.0 - 10.0 /100 WBCs. The refer ence range was not u sed to interpret th is result as normal/abnormal . NRBC x10^3 (test code <0.01 See_Comment [Auto mated = 3471733985) message] The s ystem which generated this result transmitted reference range : 10*3/?L. The reference range was not used to interpret this result as normal/abnormal . GRAN MAT (NEUT) % 83.1 % (test code = 770-8) IMM GRAN % (test code 0.40 % = 2496093650) LYMPH % (test code = 3.7 % 736-9) MONO % (test code = 11.8 % 5905-5) EOS % (test code = 0.4 % 713-8) BASO % (test code = 0.6 % 706-2) GRAN MAT x10^3(ANC) 4.52 10*3/uL 1.99-6.95 (test code = 5935239208) IMM GRAN x10^3 (test <0.03 0-0.06 code = 7006840827) LYMPH x10^3 (test code 0.20 10*3/uL 1.09-3.23 L = 731-0) MONO x10^3 (test code 0.64 10*3/uL 0.36-1.02 = 742-7) EOS x10^3 (test code = <0.03 0.06-0.53 L 711-2) BASO x10^3 (test code 0.03 10*3/uL 0.01-0.09 = 704-7) Lab Interpretation Abnormal (test code = 91707-9) [facility] ClinicSODIUM, URINE [id number] 10:25:00 Test Item Value Reference Range Interpretation Comments NA URINE (test code = 0636066773) 123 mmol/L [facility] ClinicPROTHROMBIN TIME / [id number] 08:09:00 Test Item Value Reference Range Interpretation Comments PROTIME PATIENT (test See_Comment [Auto mated message] code = 5964-2) The system [employer] generated this result transmitted ref erence range: 12.0 - 1 4.7 Seconds. The re ference range was not u sed to interpret this result as normal/abnor mal. INR (test code = 6301-6) Nor mal INR <1.1; Warfarin Therap eutic range 2.0 to 3. 0 or 2.5 to 3.5, dep ending upon the indica tions. Lab Interpretation (test Normal code = 10498-3) [facility] ClinicGLYCOSYLATED HEMOGLOBIN (A1C)2020-05-30 07:33:00 Test Item Value Reference Range Interpretation Comments HGB A1C (test code = 5.4 % 4-6 4548-4) EMIR (test code = EMIR) %A1C (NGSP) Interpretation (ADA)4.8-5.6 ? ? Normal or (Non-Diabetic Range)5.7-6.4 ? ? Increased Risk (Pre-Diabetic)>6.5 ?Diabetes Indicated Lab Interpretation Normal (test code = 80279-9) [facility] ClinicLIPID PANEL (44392)(TOTAL CHOLESTEROL, TRIGLYCERIDES, HDL)2020-05-30 07:20:00 Test Item Value Reference Range Interpretation Comments CHOL (test code = 174 mg/dL 120-200 3209805741) HDL (test code = 37 mg/dL >40 L 1376744686) HDLC RATIO (test code = See_Comment [Au tomated message] 4280024253) The system [employer] generated this result transmit moshe reference range : <=5.0. The refe rence range was not u sed to interpret th is result as normal/abnormal . TRIG (test code = 85 mg/dL 30-170 2057050556) LDL CHOL (test code = 120 mg/dL See_Comment [Auto mated message] 68033-9) The system [employer] generated this result transmit moshe reference range : <=160. The refe rence range was not u sed to interpret th is result as normal/abnormal . VLDL (test code = 17 mg/dL 5-60 7935044837) Lab Interpretation (test Abnormal code = 28336-6) [facility] [id number] 07:19:00 Test Item Value Reference Range Interpretation Comments CK (test code = 7246671566) 88 U/L 33-194 Lab Interpretation (test code = Normal 95033-0) [facility]URIC [id number] 07:19:00 Test Item Value Reference Range Interpretation Comments URIC ACID (test code = 3272315882) 7.9 mg/dL 3.6-8 Lab Interpretation (test code = Normal 08875-6) [facility] ClinicFERRITIN [id number] 06:48:00 Test Item Value Reference Range Interpretation Comments FERRITIN (test code = 73.2 ng/mL 18-464 1913558296) EMIR (test code = EMIR) Biotin has been reported to cause a negative bias, interpret results relative to patient's use of biotin. Lab Interpretation (test Normal code = 63253-2) [facility] ClinicTHYROID STIMULATING [id number] 06:46:00 Test Item Value Reference Range Interpretation Comments TSH (test code = See_Comment [Automated message] 1573807957) The system [employer] generated this result transmitted ref erence range: 0.45 - 4 .70 mIU/L. The refe rence range was not u sed to interpret this result as normal/abnor mal. Lab Interpretation (test Normal code = 98004-2) [facility]MAGN[facility]IUM2020-09-11 06:19:00 Test Item Value Reference Range Interpretation Comments MAGNESIUM (test code = 7453051981) 1.6 mg/dL 1.7-2.4 L Lab Interpretation (test code = Abnormal 34956-2) [facility]PHOSPHORUS2020-09-11 06:19:00 Test Item Value Reference Range Interpretation Comments PHOSPHORUS (test code = 4032714420) 2.9 mg/dL 2.5-5 Lab Interpretation (test code = Normal 02958-0) [facility]IS2020-09-11 04:26:00 Test Item Value Reference Range Interpretation Comments APPEARANCE (test code = Clear Clear 1042232126) COLOR (test code = Yellow Yellow 1787066983) PH (test code = 4.8-8.0 6379448978) SP GRAVITY (test code = 1.003-1.030 8833025039) GLU U QUAL (test code = Normal Normal 6913830428) BLOOD (test code = 1+ Negative A 5482043629) KETONES (test code = Negative Negative 6463937228) PROTEIN (test code = 500 mg/dL Negative A 2887-8) UROBILIN (test code = Normal Normal 3604485060) BILIRUBIN (test code = Negative Negative 0662210855) NITRITE (test code = Negative Negative 9992216153) LEUK MARLENA (test code = Negative Negative 4978543936) RBC/HPF (test code = See_Comment H [Autom ated message] 3440654701) The system [employer] generated this result transmit moshe reference range : 0 - 3 HPF. The refe rence range was not u sed to interpret th is result as normal/abnormal . WBC/HPF (test code = See_Comment [Autom ated message] 4049839290) The system [employer] generated this result transmit moshe reference range : 0 - 5 HPF. The refe rence range was not u sed to interpret th is result as normal/abnormal . BACTERIA (test code = Few Negative A 2009301464) MUCOUS (test code = Slight Negative LPF A 3645644783) HYAL CAST (test code = See_Comment H [Aut omated message] 9193035191) The system [employer] generated this result transmit moshe reference range : <=2 LPF. The refere nce range was not u sed to interpret th is result as normal/abnormal . GRAN CASTS (test code = See_Comment H [Au tomated message] 4081768429) The system [employer] generated this result transmit moshe reference range : <=1 LPF. The refere nce range was not u sed to interpret th is result as normal/abnormal . Lab Interpretation (test Abnormal code = 68529-9) [facility] ClinicXR CHEST 1 [id number] 03:33:16 Multifocal interstitial and airspace opacities are concerning forbronchopneumonia. These findings can also be seen with atypical infectiousprocess, including COVID-19 pneumonia. Disclaimer: Generally,the findings on chest imaging in COVID-19 are notspecific, and overlap with other infections, including influenza, H1N1,SARS and MERS.According to the Centers for Disease Control (CDC) and recent statement ofthe [employer], viral testing remains the [...] enlarged, unchanged. No acute osseous structure abnormality. [facility], Radiant Results Inft User - 05/29/2020 10:34 [...] Disease Control (CDC) and recent statement ofthe [employer], viral testing remains the only specificmethod of diagnosis. Confirmation with the viral test is required, even ifradiologic findings are suggestive of COVID-[address]Preliminary Report Dictated by Resident: Ming Ivan MD., have reviewed this study and agree with the abovereport.[facility] ClinicCOVID-19 (ID NOW RAPID TESTING)2020-05-30 01:54:00 Test Item Value Reference Range Interpretation Comments SARS-CoV-2 Rapid ID NOW Not Detected Not Detected (test code = 83788-7) EMIR (test code = EMIR) ID NOW COVID-19 Assay is an isothermal nucleic acid amplification test intended for the qualitative detection of nucleic acid from SARS-CoV-2 viral RNA in nasopharyngeal (DIRECTOR OF CARDIAC CATH LAB) specimens. It is used under Emergency Use [...] indicated. Lab Interpretation Normal (test code = 35126-5) [facility] ClinicTROPONI [id number] 01:52:00 Test Item Value Reference Range Interpretation Comments TROPONIN I (test 0.148 ng/mL See_Comment H [Automated code = 1954598931) message] The system which generated this result [...] ? Lab Interpretation Abnormal (test code = 98742-7) [facility] ClinicN-TERMINAL [id number] 01:49:00 Test Item Value Reference Range Interpretation Comments NT-proBNP (test code 45993 pg/mL See_Comment H [Autom ated = 6696053805) message] The system which generated this result transmitted reference range : <=450. The reference range was not used to interpret this result as normal/abnormal . EMIR (test code = EMIR) Biotin has been reported to cause a negative bias, interpret results relative to patient's use of biotin. Lab Interpretation Abnormal (test code = 69274-7) [facility] ClinicCOMP. METABOLIC PANEL (94085)2020-05-30 01:41:00 Test Item Value Reference Range Interpretation Comments NA (test code = 135 mmol/L 135-145 2355145545) K (test code = 4.0 mmol/L 3.5-5 8587500828) CL (test code = 98 mmol/L 98-108 5944649028) CO2 TOTAL (test code = 27 mmol/L 23-31 2562549544) AGAP (test code = 2-16 4799211089) BUN (test code = 27 mg/dL 7-23 H 9322189902) GLUCOSE (test code = 143 mg/dL 70-110 H 5976113109) CREATININE (test code = 1.51 mg/dL 0.6-1.25 H 1404052236) TOTAL BILI (test code = 0.6 mg/dL 0.1-1.6 1998625778) CALCIUM (test code = 9.5 mg/dL 8.6-10.6 2153544213) T PROTEIN (test code = 6.9 g/dL 6.3-8.2 6211153946) ALBUMIN (test code = 3.9 g/dL 3.5-5 4734776591) ALK PHOS (test code = 78 U/L 34-122 9112573762) ALTv (test code = 29 U/L 5-50 1742-6) AST(SGOT) (test code = 37 U/L 13-40 0430561111) eGFR Calculation mL/min/1.73m2 (Non-) (test code = 0829730499) eGFR Calculation mL/min/1.73m2 () (test code = 7418089735) EMIR (test code = EMIR) Association of [...] tests). Lab Interpretation Abnormal (test code = 31891-8) [facility] ClinicCT HEAD WO [id number] 01:40:13 No acute intracranial hemorrhage or mass [...] of a left posterior ethmoid air cell. [facility], Radiant Results Inft User - 05/29/2020 8:52 [...] ethmoid aircell.IMPRESSIONNo acute intracranial hemorrhage or mass effect.[facility] ClinicPOCT GLUCOSE (AUTOMATED)2020-05-30 01:23:00 Test Item Value Reference Range Interpretation Comments POCT GLU (test code = 5394369678) 130 mg/dL 70-110 H Lab Interpretation (test code = Abnormal 62432-3) [facility] WITH [id number] 01:22:00 Test Item Value Reference Range Interpretation [...] RDW-SD (test code = 46.8 fL 38.5-51.6 55228-3) RDW-CV (test code = 13.9 % 12.1-15.4 788-0) PLT (test code = See_Comment [Automated 777-3) message] The sy stem which generated this result transmitted reference range : 150 - 328 10*3/ ?L. The reference r martin was not used to interpret this result as normal/abnormal . MPV (test code = 9.9 fL 9.8-13 90116-5) NRBC/100 WBC (test See_Comment [Automat ed code = 9047485259) message] The system which generated this result transmitted reference range : 0.0 - 10.0 /100 WBCs. The refer ence range was not u sed to interpret th is result as normal/abnormal . NRBC x10^3 (test code <0.01 See_Comment [Auto mated = 1835230086) message] The s ystem which generated this result transmitted reference range : 10*3/?L. The reference range was not used to interpret this result as normal/abnormal . GRAN MAT (NEUT) % 82.3 % (test code = 770-8) IMM GRAN % (test code 0.50 % = 9442630935) LYMPH % (test code = 5.5 % 736-9) MONO % (test code = 10.6 % 5905-5) EOS % (test code = 0.6 % 713-8) BASO % (test code = 0.5 % 706-2) GRAN MAT x10^3(ANC) 5.23 10*3/uL 1.99-6.95 (test code = 3475257218) IMM GRAN x10^3 (test 0.03 10*3/uL 0-0.06 code = 5575537550) LYMPH x10^3 (test code 0.35 10*3/uL 1.09-3.23 L = 731-0) MONO x10^3 (test code 0.67 10*3/uL 0.36-1.02 = 742-7) EOS x10^3 (test code = 0.04 10*3/uL 0.06-0.53 L 711-2) BASO x10^3 (test code 0.03 10*3/uL 0.01-0.09 = 704-7) Lab Interpretation Abnormal (test code = 37819-2) [facility] ABG + LACTIC [id number] 01:14:00 Test Item Value Reference Range Interpretation Comments PH (test code = 2) 7.35-7.45 PCO2 (test code = See_Comment [Automat ed 4782007607) message] The sy stem which generated this result transmitted reference range : 35 - 45 mmHg. The reference range was not used to interpret this result as normal/abnormal . PO2 (test code = See_Comment H [Automated 4471938708) message] The sy stem which generated this result transmitted reference range : 80 - 100 mmHg. The reference range was not used to interpret this result as normal/abnormal . HCO3 (test code = See_Comment [Automate d 9726421827) message] The sy stem which generated this result transmitted reference range : 22 - 26 mEq/L. The reference range was not used to interpret this result as normal/abnormal . BE (test code = See_Comment [Automated 8863692342) message] The sy stem which generated this result transmitted reference range : -3.0 - 3.0 mEq/ L. The reference r martin was not used to interpret this result as normal/abnormal . LACTIC ACID (test code 1.10 mmol/L = 4469987110) Lab Interpretation Abnormal (test code = 03145-5) [facility]PO[facility](AGE >30DAYS)2020-05-30 01:04:00 Test Item Value Reference Range Interpretation Comments POCT Glu (age>30days) (test code = 130 mg/dL 70-110 A 3342) Lab Interpretation (test code = Abnormal 76219-5) [facility]
--- NOTE | 2022-02-04 21:04 | RAD REPORT ---
EXAM DESCRIPTION: CT - Abdomen Pelvis Wo Contrast - 02/04/2022 8:46 pm CLINICAL HISTORY: Abdominal pain. Bowel obstruction suspected COMPARISON: CT ABD PELVIS W CONTRAST dated 03/05/2013 TECHNIQUE: CT imaging of the abdomen and pelvis was performed without contrast. Solid organ, bowel a nd vascular assessment is limited due to lack of IV and oral contrast. All CT scans are performed using dose optimization technique as appropriate and may include automated exposure control or mA/KV adjustment according to patient size. FINDINGS: The lower lung osman are clear.Small hiatal hernia. The liver, spleen, pancreas, adrenal glands and kidneys are within normal limits for a limited non-co ntrast examination.Small benign renal cysts bilaterally. No bowel obstruction, free air, free fluid or abscess. Appendectomy. Large amount retained stool in the colon and fluid in the small bowel. Mild lower lumbar degenerative changes. IMPRESSION: Advanced fecal retention throughout the colon. A limited non-contrast examination was performed as detailed.
--- NOTE | 2022-02-04 21:16 | ER ---
Nurse's Notes [facility] Name: Jimbo Cat Age: 81 yrs Sex: Male : 1940 Arrival Date: 02/04/2022 Time: 19:08 Bed 12 Private MD: Diagnosis: Constipation, unspecified Presentation: 02/04 19:09 Chief complaint: Patient states: Constipation for 1.5 days. OTC meds taken, no relief. ld1 Coronavirus screen: At this time, the client does not indicate any symptoms associated with coronavirus-19. Ebola Screen: No symptoms or risks identified at this time. Initial Sepsis Screen: Does the patient meet any 2 criteria? No. Patient's initial sepsis screen is negative. Does the patient have a suspected source of infection? No. Patient's initial sepsis screen is negative. Risk Assessment: Do you want to hurt yourself or someone else? Patient reports no desire to harm self or others. Onset of symptoms was February 04, 2022 at 19:12. 19:09 Method Of Arrival: EMS: [facility] ld1 19:09 Acuity: SYDNIE 3 ld1 Triage Assessment: 19:13 General: Appears in no apparent distress. comfortable, Behavior is calm, cooperative, ld1 appropriate for age. Pain: Complains of pain in right lower quadrant and left lower quadrant Pain does not radiate. Pain currently is 6 out of 10 on a pain scale. Quality of pain is described as throbbing. EENT: No signs and/or symptoms were reported regarding the EENT system. Neuro: Level of Consciousness is awake, alert, obeys commands, Oriented to person, place, time, situation. Cardiovascular: Capillary refill < 3 seconds Patient's skin is warm and dry. Respiratory: Airway is patent Respiratory effort is even, unlabored. GI: Abdomen is round non-distended, Reports constipation. GI: Reports lower abdominal pain. : No signs and/or symptoms were reported regarding the genitourinary system. Derm: No signs and/or symptoms reported regarding the dermatologic system. Musculoskeletal: No signs and/or symptoms reported regarding the musculoskeletal system. Historical: - Allergies: 19:12 No Known Allergies; ld1 - PMHx: 19:12 Congestive heart failure; CVA; Myocardial infarction; diabetes mellitus; ld1 - PSHx: 19:12 Appendectomy; Pacemaker/Defibrillator; ld1 - Immunization history:: Adult Immunizations up to date, Client reports having NOT received the Covid vaccine. - Social history:: Smoking status: Patient denies any tobacco usage or history of. Patient/guardian denies using alcohol. - Family history:: not pertinent. - Hospitalizations: : No recent hospitalization is reported. Screenin:17 Abuse screen:. Nutritional screening: No deficits noted. Tuberculosis screening: No tw5 symptoms or risk factors identified. Fall Risk None identified. Assessment: 19:14 Reassessment:. ld1 21:18 GI: tw5 Vital Signs: 19:09 BP 152 / 90; Pulse 64; Resp 18; Temp 98.9(O); Pulse Ox 100% on 2 lpm NC; Weight 65.77 ld1 kg; Height 5 ft. 8 in. (172.72 cm); Pain 6/10; 19:09 Body Mass Index 22.05 (65.77 kg, 172.72 cm) ld1 ED Course: 19:08 Patient arrived in ED. tw5 19:12 Triage completed. ld1 19:13 Arm band placed on right wrist. ld1 19:35 Rhys Dent MD is Attending Physician. rn 20:48 Abdomen In Process Unspecified. EDMS 21:17 Patient has correct armband on for positive identification. tw5 21:17 No provider procedures requiring assistance completed. Inserted Patient did not have IV tw5 access during this emergency room visit. Administered Medications: 21:16 CANCELLED (Physician Discretion): NS 0.9% 250 ml IV at bolus once tw5 Outcome: 21:16 Discharge ordered by . rn 21:17 Discharged to home tw5 21:17 Condition: good 21:17 Discharge instructions given to never given patient left prior to being handed discharge instructions 21:18 Patient left the ED. tw5 Signatures: Dispatcher [employer] EDMS Rhys Dent MD MD rn Dibbern, Lauren, RN RN Lynne Gutierrez tw5
--- NOTE | 2022-02-04 21:17 | EDPHYS ---
Physician Documentation [facility] Name: Jimbo Cat Age: 81 yrs Sex: Male : 1940 Arrival Date: 02/04/2022 Time: 19:08 Bed 12 Private MD: ED Physician Rhys Dent HPI: 02/04 19:39 This 81 yrs old Male presents to ER via EMS with complaints of Abdominal Pain. rn 19:39 The patient presents with abdominal pain in the lower abdomen. Onset: The rn symptoms/episode began/occurred 2 day(s) ago. The symptoms do not radiate. Associated signs and symptoms: Pertinent positives: constipation, Pertinent negatives: blood in stools, fever, vomiting, vomiting blood. The symptoms are described as crampy. Modifying factors: The symptoms are alleviated by nothing, the symptoms are aggravated by nothing. Severity of pain: At its worst the pain was mild in the emergency department the pain is unchanged. It is unknown whether or not the patient has had similar symptoms in the past. The patient has not recently seen a physician. Historical: - Allergies: 19:12 No Known Allergies; ld1 - PMHx: 19:12 Congestive heart failure; CVA; Myocardial infarction; diabetes mellitus; ld1 - PSHx: 19:12 Appendectomy; Pacemaker/Defibrillator; ld1 - Immunization history:: Adult Immunizations up to date, Client reports having NOT received the Covid vaccine. - Social history:: Smoking status: Patient denies any tobacco usage or history of. Patient/guardian denies using alcohol. - Family history:: not pertinent. - Hospitalizations: : No recent hospitalization is reported. ROS: 19:39 Constitutional: Negative for fever, chills, and weight loss, Eyes: Negative for injury, rn pain, redness, and discharge, Neck: Negative for injury, pain, and swelling, Cardiovascular: Negative for chest pain, palpitations, and edema, Respiratory: Negative for shortness of breath, cough, wheezing, and pleuritic chest pain, Abdomen/GI: + lower abd pain and constipation : Negative for injury, bleeding, discharge, and swelling, MS/Extremity: Negative for injury and deformity, Skin: Negative for injury, rash, and discoloration, Neuro: Negative for headache, weakness, numbness, tingling, and seizure. Exam: 19:39 Constitutional: This is a well developed, well nourished patient who is awake, alert, rn and in no acute distress. Head/Face: Normocephalic, atraumatic. Cardiovascular: Regular rate and rhythm. No pulse deficits. Respiratory: Speaking full sentences, unlabored. No increased work of breathing, no retractions or nasal flaring. Abdomen/GI: Soft, mild lower abd tenderness, no distension or rebound, no masses Skin: Warm, dry MS/ Extremity: Pulses equal, no cyanosis. Neuro: Awake and alert, GCS 15 Vital Signs: 19:09 BP 152 / 90; Pulse 64; Resp 18; Temp 98.9(O); Pulse Ox 100% on 2 lpm NC; Weight 65.77 ld1 kg; Height 5 ft. 8 in. (172.72 cm); Pain 6/10; 19:09 Body Mass Index 22.05 (65.77 kg, 172.72 cm) ld1 MDM: 19:35 Patient medically screened. rn 21:14 Differential diagnosis: bowel obstruction, non-specific abd pain. Data reviewed: vital rn signs, nurses notes, radiologic studies, CT scan, and as a result, I will discharge patient. Response to treatment: There is no appreciated change of the patient's symptoms at this time. ED course: Pt got CT, shows moderate fecal retention but no obstruction, patient got back from CT and wants to go home, stable vitals, no distress, understands risks of leaving. Labs canceled. . 02/04 20:45 Order name: Abdomen ; Complete Time: 21:13 EDMS Administered Medications: 21:16 CANCELLED (Physician Discretion): NS 0.9% 250 ml IV at bolus once tw5 Disposition Summary: 02/04/22 21:16 Discharge Ordered Location: Home rn Problem: new rn Symptoms: are unchanged rn Condition: Stable rn Diagnosis - Constipation, unspecified rn Followup: rn - With: Private Physician - When: As needed - Reason: Recheck today's complaints, Re-evaluation by your physician Discharge Instructions: - Discharge Summary Sheet rn - Constipation, Adult rn Forms: - Medication Reconciliation Form rn - Thank You Letter 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 EDMS EDMS : 19:39 IV Saline Lock ordered. renee tabares : 19:39 NS 0.9% 250 ml IV at bolus once ordered. renee tabares 21:17 19:39 Labs collected and sent ordered. renee [email or web address]
[2022-02-04 21:28] VITALS: BP 152/90; TEMP 98.9; O2SAT 100
== END 2022-02-04 21:18 | disposition home or self-care (01) ==
LOC: ER 19:06
DX: K59.00 Constipation, unspecified (principal); E11.9 Type 2 diabetes mellitus without complications; I50.9 Heart failure, unspecified; Z86.73 Personal history of transient ischemic attack (TIA), and cerebral infarction without residual deficits; Z95.810 Presence of automatic (implantable) cardiac defibrillator
CPT/HCPCS: 74176; 99283

== ENCOUNTER 2022-02-05 01:27 | Emergency (ER) | payer OTHER ==
--- OUTSIDE RECORDS SUMMARY | 2022-02-05 01:34 | XMS REPORT | Continuity of Care Document ---
:1940 Author Organization [facility] t Address [address] [place] [address] Care Team Providers Name Role Phone JOHNSON [...] Date Expiration Date Lauryn little UNITED MEDICARE [id number] 2021 O 00:00:00 Problems Condition Condition Condition [...] Disease Active Univers 9-11 ity of 00:00: [place] [facility] Pneumonia Pneumonia Disease Active Uni vers due to due to 9-11 [place]y of infectious infectious [place] organism organism 00 Medica l Branch Elevated Elevated Disease Active Unive rs troponin I troponin I 9-11 it y of level level 00:00: [place] [facility] Acute on Acute on Disease Active Unive rs chronic chronic 9-10 [place]y of diastolic [place] congestive congestive 00 Me dical heart heart Branch failure failure Chest pain Chest pain Disease Active U nivers 7-07 ity of 00:00: [place] [facility] Obesity Obesity Disease Active Overview: Univ ers 4-17 ICD10 ity of 00:00: Diagnosis Term Medical [facility] Branch Utility Type II or Type II [...] demia) demia) 00:00: Diagnosis [place] Term Medical [facility] Utility Essential Essential Disease Active Uni [...] Known DA Active U [facility] [place] 00:00: [address] No Known DA Active U [facility] 05[facility]20 [place] 00:00: [address] NO KNOWN Drug Active Univers ALLERGIE Class ity of S [facility] NO KNOWN Allergy Active [facility] Social History Social Habit Start Date Stop Date Quantity Comments Source Tobacco Comment quit 30 years Univer sity of ago [facility] Alcohol Comment 3 drinks (vodka) Uni versity of nightly [facility] Sex Assigned At Universit y of [facility] Exposure to Unable to assess Univers ity of SARS-CoV-2 [facility] (event) [place] Tobacco use and 2020-05-30 2020-05-30 Never used Universit y of exposure 00:00:00 00:00:00 [facility] Alcohol intake 2020-05-30 2020-05-30 Current drinker Unive rsity of 00:00:00 00:00:00 of alcohol [facility] (finding) [place] Smoking Status Start Date Stop Date Source Never smoker [facility] Medications Ordered Filled Start Stop Current Ordering Indication Dosage Frequency Signature Comments Components Source Medication Medication Date Date Medication? Clinician (SIG) Name Name ASPIRIN 81 0 Yes once daily U nivers MG ORAL 9-16 ity of CHEW 22:57: [address] magnesium 2019-0 Yes 400mg Take 400 Uni vers oxide 9-16 mg by ity of (MAG-OX 22:57: mouth [place] 400) 400 mg 45 daily. Medica l tablet Branch Cyanocobala Yes Place Unive rs min 9-16 under the ity of (VITAMIN 22:57: tongue. [place] B-12) 2,500 45 Medical mcg Subl Branch CALCIUM 2019-0 Yes [facility] CARBONATE/V 9-16 mouth. ity of ITAMIN D3 22:57: [place] (VITAMIN 45 Medical D-3 ORAL) Branch MULTIVITAMI 0 Yes Take by Un audra N 9-16 mouth. ity of W-MINERALS/ 22:57: [place] LUTEIN 45 Medical (CENTRUM Branch SILVER ORAL) ASPIRIN 81 2019-0 Yes once daily U nivers MG ORAL 9-16 ity of CHEW 22:57: [address] Branch magnesium 2020-0 Yes 400mg Take [...] daily. Medical per tablet Branch atorvastati Yes [id number] 20mg Take 1 Univers n 20 mg 9-16 tablet by ity of tablet 00:00: mouth at [place] 00 bedtime. Medical Branch primidone 2019-0 Yes [id number] 50mg Take 1 U nivers 50 mg 9-16 tablet by ity of tablet 00:00: mouth [place] 00 every 12 Medical (twelve) Branch hours. metoprolol 2019-0 Yes [id number] 25mg Take 1 Univers tartrate 25 9-16 tablet by ity of mg tablet 00:00: mouth 2 [place] 00 (two) Medical times Branch daily. sacubitriL- 2020-0 Yes [id number] 1{tbl} Take 1 Univers valsartan 9-16 tablet by ity o f 97-103 mg 00:00: mouth 2 [place] tablet 00 (two) Medical times Branch daily. levoFLOXaci 2019-0 Yes [id number] 500mg Take 1 Univers n 500 mg 9-16 tablet by ity of tablet 00:00: mouth [place] 00 every 24 Medical (twenty-fo Branch ur) hours. acidophilus 2020-0 Yes [id number] 1g Take 1 Univers 100 million 9-16 tablet by ity of cell tablet 00:00: mouth 2 [place] as 00 (two) Medical times Branch daily. atorvastati 2020-0 Yes [id number] 20mg Take 1 Univers n 20 mg 9-16 tablet by ity of tablet 00:00: mouth at [place] 00 bedtime. Medical Branch primidone 2020-0 Yes [id number] 50mg Take 1 U nivers 50 mg 9-16 tablet by ity of tablet 00:00: mouth [place] 00 every 12 Medical (twelve) Branch hours. metoprolol 2020-0 Yes [id number] 25mg Take 1 Univers tartrate 25 9-16 tablet by ity of mg tablet 00:00: mouth 2 [place] 00 (two) Medical times Branch daily. sacubitriL- 2020-0 Yes [id number] 1{tbl} Take 1 Univers valsartan 9-16 tablet by ity o f 97-103 mg 00:00: mouth 2 [place] tablet 00 (two) Medical times Branch daily. levoFLOXaci 2020-0 Yes [id number] 500mg Take 1 Univers n 500 mg 9-16 tablet by ity of tablet 00:00: mouth [place] 00 every 24 Medical (twenty-fo Branch ur) hours. acidophilus 2020-0 Yes [id number] 1g Take 1 Univers 100 million 9-16 tablet by ity of cell tablet 00:00: mouth 2 [place] as 00 (two) Medical times Branch daily. KCL 2020-0 2020- No 20meq 20 mEq, Univers (KLOR-CON 06-03-15 Oral, ONCE ity of M20) tablet 02:30: 01:54 NOW, 1 [place] as 20 mEq 00 :00 dose, [facility] 06/02/20 at Branch 2130, Routine levoFLOXaci 2020-0 Yes 750mg 750 mg, Un audra n 9-14 Oral, ity of (LEVAQUIN) 16:00: Q48H, [place] tablet 750 00 First dose Med ical mg on [facility] Branch 06/02/20 at 1100, Until Discontinu [...] First dose [place] mg 00 on [facility] To [facility] 06/01/20 at Branch 2215, Until Discontinu ed, Routine bisacodyL 2019- No 10mg 10 mg, Unive rs (DULCOLAX) 06-02 Rectal, ity o f suppository 03:15: 01:59 QHS, 3 [place] as 10 mg 00 :00 doses, Medical First dose Branch on [place] 06/01/20 at 2215, Last dose on Tue06/03/20 at 2100, Routine epoetin 2019- 2020- No 4000U 4,000 Univers renetta-epbx 06-01 Units, ity of (RETACRIT) 19:45: 19:59 Subcutaneo [place] injection 00 :00 us, ONCE, Medic al 4,000 Units 1 dose, Branc h [place] 06/01/20 at 1445, Routine
sociology faculty member approving Restricted medication : AKILAH ANDRE ANGELES furosemide 2019- No 40mg 40 mg, IV U nivers (LASIX) 06-01 Push, ity of injection 14:00: 17:48 DAILY, [place] 40 mg 00 :15 First dose Medical (after Branch last modificati on) on [place] 06/01/20 at 0900, Until Discontinu ed, LICO ferrous 2019- 2020- No 325mg 325 mg, Unive rs sulfate 06-01 Oral, BID ity of tablet 325 13:00: 01:14 MEALS, [place] mg 00 :51 First dose Medical on [place] Branch 9/13/20 at 0800, Until Discontinu ed, Routine haloperidol 2020-0 Yes 5mg 5 mg, Slow Univers lactate 06-01 IV Push, ity of (HALDOL) 01:16: QHSPRN, [place] injection 5 44 Starting Medi mecca mg [facility] 05/31/20 at 2016, Until Discontinu ed, Routine, insomnia, psychosis, agitation piperacilli 2020-0 2020- No 2.25g 2.25 g, IV Univers n-tazobacta 06-01 Piggyback, i ty of m (ZOSYN) 00:45: 14:59 Q6H ABX, [place] as 2.25 g/50 00 :52 First dose Medi mecca mL RTU on [facility] Branch 05/31/20 at 1945, Until Discontinu ed, 50 mL
Reas on for Anti-Infec tive: Documented Infection< br>Documen moshe Infection Site: Respirator y
Durat ion of Therapy: 10 days KCL 2020-0 2020- No 40meq 40 mEq, Univers (KLOR-CON 06-01 Oral, ity of M20) tablet 00:45: 01:23 ONCE, 1 [place] 40 mEq 00 :00 dose, [facility] Medical 05/31/20 at Branch 1945, Routine magnesium 2019-0 2020- No 2g 2 g, IV Univ ers sulfate in 06-01 Piggyback, it y of water 2 00:45: 01:23 ONCE, 1 [place] gram/50 mL 00 :00 dose, [facility] Medi mecca (4 %) 05/31/20 at [place] infusion 2 1944, g Routine sodium 2019-0 Yes 125mg 125 mg, IV Univ ers ferric 05-31 Piggyback, ity of gluconate 14:00: DAILY, [place] (FERRLECIT) 00 First dose Me dical 125 mg in on [facility] NaCl 0.9% 05/31/20 at (NS) 100 mL 0900, IV Until piggyback Discontinu ed, 100 mL
Facu lty member approving Restricted medication : HELENA KUMAR sulfur 2020-0 2020- No 5mL 5 mL, Univers hexafluorid 05-30 Intravenou i ty of e microsphr 19:00: 16:30 s, ONCE, 1 [place] (LUMASON) 00 :00 dose, Fri Medic al injection 5 05/30/20 at Br anch mL 1400, Routine
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
sociology faculty member approving Restricted medication : MEGADC [...] ity of (vitamin C) 06:15: First dose [place] (VITAMIN C) 00 on Tue Medica l tablet 500 05/30/20 at [facility] mg 0115, Until Discontinu ed, Routine cholecalcif [...] -11 Oral, ity of (TYLENOL) 06:01: Q6HPRN [place] tablet 650 34 Starting Medic al mg Tue Branch 05/30/20 at 0101, Until Discontinu ed, Routine, Temp > 38.5 C ondansetron 2020-0 Yes 4mg 4 mg, Slow Univers (ZOFRAN 9-11 IV Push, ity of (PF)) 06:01: Q6HPRN [place] injection 4 16 Starting Medi [place] mg [...] [place] 60 mg 00 :00 dose, [facility] Medical 05/29/20 at Branch 2215, LICO albuterol 2020- No 8{puff} 8 Puff, U nivers (VENTOLIN) 05-30 Inhalation it y of inhaler 8 01:45: 01:04 , ONCE, 1 [place] Puff 00 :00 dose, [facility] 05/29/20 at Branch 2045, LICO
Is this order for a patient with suspected or confirmed COVID-19 infection? Yes atorvastati 2019- No [id number] 20mg Take 1 Univers n (LIPITOR) 01-27 tablet by it y of 20 mg 00:00: 00:00 mouth at [place] tablet 00 :00 bedtime. Medical Branch Insulin 2020- No [id number] 8U inject 8 U nivers Glargine 01-27 [...] directed ity of (ACCU-CHEK 00:00: [place] WILLIAM) [place] [address] Medical Branch Blood-Gluco Yes Use as [facility] ers se Meter 4-07 directed ity of (ACCU-CHEK 00:00: [place] WILLIAM) [place] [address] Medical Branch EXFORGE 2020- No TAKE 1 [...] 20:55:00 156 mm[Hg] Univer sity of pressure [facility] Diastolic blood 2020-06-04 20:55:00 85 mm[Hg] Unive rsity [facility] Respiratory rate 2020-06-04 20:55:00 18 /min [facility] Oxygen saturation in 2020-06-04 20:55:00 92 /min [facility] blood by [facility] Pulse oximetry Branch Heart rate 2020-06-04 20:00:00 67 /min [facility] Body temperature 2020-06-04 20:00:00 36.06 Razia [facility] Body weight 2020-06-03 06:15:00 65.998 kg [facility] BMI 2020-06-03 06:15:00 24.21 kg/m2 [facility] Body height 2020-05-30 06:15:00 165.1 cm [facility] Systolic blood 2020-06-04 20:55:00 156 mm[Hg] Univer sity of pressure [facility] Diastolic blood 2020-06-04 20:55:00 85 mm[Hg] [facility] Respiratory rate 2020-06-04 20:55:00 18 /min [facility] Oxygen saturation in 2020-06-04 20:55:00 92 /min [facility] Arterial blood by [facility] Pulse oximetry Branch Heart rate 2020-06-04 20:00:00 67 /min [facility] Body temperature 2020-06-04 20:00:00 36.06 Razia [facility] Body weight 2020-06-03 06:15:00 65.998 kg [facility] BMI 2020-06-03 06:15:00 24.21 kg/m2 [facility] Body height 2020-05-30 06:15:00 165.1 cm [facility] Procedures Procedure Date / Time Performing Clinician Source Performed POCT GLUCOSE (AUTOMATED) 2020-06-04 21:56:00 [facility] PO[facility] GLUCOSE (AUTOMATED) 2020-06-04 16:48:00 Arben Julien Uni [facility] [place] [facility] XR CHEST 1 VW 2020-06-04 13:56:16 [facility] POCT GLUCOSE (AUTOMATED) 2020-06-04 12:44:00 Arben [facility] POCT GLUCOSE (AUTOMATED) 2020-06-04 01:32:00 [facility]ben [facility] POCT GLUCOSE (AUTOMATED) 2020-06-03 21:46:00 [facility]ben [facility] POCT GLUCOSE (AUTOMATED) 2020-06-03 16:54:00 Arben [facility] POCT GLUCOSE (AUTOMATED) 2020-06-03 12:50:00 [facility] COMP. METABOLIC PANEL 2020-06-03 11:37:00 Sukhwinder Hughes [facility] ([id number]) [facility] CBC WITH DIFF 2020-06-03 11:36:00 Sukhwinder Hughes [facility] POCT GLUCOSE (AUTOMATED) 2020-06-03 01:18:00 [facility] POCT GLUCOSE (AUTOMATED) 2020-06-02 21:22:00 [facility]ben [facility] FL MODIFIED BARIUM 2020-06-02 19:00:00 Rufus Goodwin [facility] POCT GLUCOSE (AUTOMATED) 2020-06-02 16:59:00 Arben Jul[facility] POCT GLUCOSE (AUTOMATED) 2020-06-02 13:26:00 Arben Julien [facility] [place] [facility] MAGNESIUM 2020-06-02 10:40:00 Buddy [facility] COMP. METABOLIC PANEL 2020-06-02 10:40:00 Rufus Goodwin [facility] ([id number]) [facility] CBC WITH DIFF 2020-06-02 10:40:00 Arben Julien [facility] POCT GLUCOSE (AUTOMATED) 2020-06-01 21:51:00 Arben Julien [facility] POCT GLUCOSE (AUTOMATED) 2020-06-01 17:00:00 Arben Julien [facility] BLOOD CULTURE SCREEN 2020-06-01 15:42:00 Rufus Goodwin [facility] BLOOD CULTURE SCREEN 2020-06-01 15:29:00 Rufus Goodwin [facility] POCT GLUCOSE (AUTOMATED) 2020-06-01 13:18:00 [facility]ben [facility] MAGNESIUM 2020-06-01 10:14:00 Buddy [facility] COMP. METABOLIC PANEL 2020-06-01 10:14[id number] ACUTE CARE VENOUS BLOOD 2020-06-01 10:14:00 Arben Julien [facility] GAS [facility] CBC WITH DIFF 2020-06-01 10:14:00 Wily hilda [facility] N-TERMINAL PRO-BNP 2020-06-01 10:14:00 Arben Julien [facility] POCT GLUCOSE (AUTOMATED) 2020-06-01 00:42:00 Arben Julien [facility] POCT GLUCOSE (AUTOMATED) 2020-05-31 21:51:00 Arben Julien [facility] [place] [facility] AMMONIA, PLASMA 2020-05-31 17:01:00 Buddy [facility] POCT GLUCOSE (AUTOMATED) 2020-05-31 16:59:00 Arben Julien [facility] URIC ACID 2020-05-31 08:32:00 Wily [facility] MAGNESIUM 2020-05-31 08:32:00 Wily [facility] TROPONIN I 2020-05-31 08:32:00 Wily [facility] COMP. METABOLIC PANEL 2020-05-31 08:32:00 Arben Julien [facility] ([id number] CBC WITH DIFF 2020-05-31 08:32:00 Wily [facility] N-TERMINAL PRO-BNP 2020-05-31 08:32:00 Wily hilda [facility] POCT GLUCOSE (AUTOMATED) 2020-05-31 00:32:00 Arben Julien [facility] POCT GLUCOSE (AUTOMATED) 2020-05-30 20:44:00 Arben Julien [facility] POCT GLUCOSE (AUTOMATED) 2020-05-30 17:04:00 Arben Julien [facility] TROPONIN I 2020-05-30 16:25:00 Arben Julien [facility] ECHO ROUTINE W/DOPPLER 2020-05-30 16:08:22 Arben Julien [facility] POCT GLUCOSE (AUTOMATED) 2020-05-30 13:56:00 Arben Julien [facility] [place] [facility] CT THORAX WO CONTRAST 2020-05-30 10:26:42 Arben Julien [facility] SEDIMENTATION RATE 2020-05-30 09:51:00 Arben Julien [facility] CBC WITH DIFF 2020-05-30 09:51:00 Wily [facility] URIC ACID 2020-05-30 08:34:00 Wily [facility] MAGNESIUM 2020-05-30 08:34:00 Wily [facility] CORTISOL AM 2020-05-30 08:34:00 Wily [facility] TROPONIN I 2020-05-30 08:34:00 Wily [facility] COMP. METABOLIC PANEL 2020-05-30 08:34:00 Arben Julien [facility] ([id number]) Medical [place] IRON PANEL 2020-05-30 08:34:00 Wily [facility] N-TERMINAL PRO-BNP 2020-05-30 08:34:00 Wily hilda [facility] LEGIONELLA URINARY 2020-05-30 08:29:[address] [facility] ANTIGEN TST [facility] SODIUM, URINE RANDOM 2020-05-30 08:28:00 Wily hilda [facility] PROTEIN CREAT RATIO 2020-05-30 08:28:00 Arben Julien [facility] URINE [facility] PNEUMOCOCCAL ANTIGEN 2020-05-30 08:27:00 Wily hilda [facility] OSMOLALITY URINE 2020-05-30 08:25:00 Wily [facility] UREA NITROGEN, URINE 2020-05-30 08:25:00 Wily hilda [facility] URINE CULTURE 2020-05-30 08:24:00 Wily [facility] OSMOLALITY SERUM 2020-05-30 07:08:00 Wily [facility] VITAMIN B12, LEVEL 2020-05-30 07:08:00 Wily hilda [facility] FOLATE 2020-05-30 07:08:00 Wily hilda [facility] PROTHROMBIN TIME / INR 2020-05-30 07:08:00 Arben Julien [facility] MYCOPLASMA PNEUMONIAE 2020-05-30 07:08:00 Arben Julien [facility] ANTIBODY, IGM [facility] VITAMIN D, 25-OH 2020-05-30 07:08:00 Arben Julien [facility] PROCALCITONIN 2020-05-30 07:08:00 Arben Julien [place] [facility] BLOOD CULTURE SCREEN 2020-05-30 07:07:00 Arben Julien [facility] BLOOD CULTURE WORKUP 2020-05-30 07:07:00 Arben Julien [facility] BLOOD CULTURE WORKUP 2020-05-30 07:07:00 Arben Julien [facility] GRAM POSITIVE BLOOD 2020-05-30 07:07:00 Arben Julien [facility] PATHOGENS DNA [facility] PROBE-AEROBIC RESPIRATORY PANEL BY PCR 2020-05-30 05:20:00 Arben Julien [facility] COVID-19 (PCR MOLECULAR 2020-05-30 05:20:00 Arben Julien [facility] TESTING) [facility] Branch EXTERNAL PROVIDER 2020-05-30 05:01:00 Doctor Unassigned, No [facility] RECORDS Name [facility] URINALYSIS 2020-05-30 03:39:00 Trice Kraft [facility] XR CHEST 1 VW 2020-05-30 01:45:07 Trice Kraft [facility] CT HEAD WO CONTRAST 2020-05-30 01:34:53 Trice Kraft [facility] EKG-12 LEAD 2020-05-30 01:08:00 Trice Kraft [facility] AC ABG + LACTIC ACID 2020-05-30 01:06:00 Trice Kraft [facility] POCT GLUCOSE(AGE 2020-05-30 01:04:00 Trice Kraft [facility] >30DAYS) [facility] POCT GLUCOSE (AUTOMATED) 2020-05-30 01:03:00 Trice Kraft [facility] PHOSPHORUS 2020-05-30 00:59:00 Wily, General acute hospital CREATINE KINASE 2020-05-30 00:59:00 Wily hilda [facility] URIC ACID 2020-05-30 00:59:00 Wily [facility] MAGNESIUM 2020-05-30 00:59:00 Wily [facility] FERRITIN SERUM 2020-05-30 00:59:00 Wily [facility] TROPONIN I 2020-05-30 00:59:00 Trice Kraft [facility] THYROID STIMULATING 2020-05-30 00:59:00 Wily hilda [facility] HORMONE [facility] COMP. METABOLIC PANEL 2020-05-30 00:59:00 Trice Kraft [facility] ([id number]) Medical Branch LIPID PANEL 2020-05-30 00:59:00 Wily hilda [facility] ([id number])(TOTAL Medical Branch CHOLESTEROL, TRIGLYCERIDES, HDL) CBC WITH DIFF 2020-05-30 00:59:00 Trice Kraft [facility] GLYCOSYLATED HEMOGLOBIN 2020-05-30 00:59:00 Arben Julien [facility] (A1C) Medical Branch N-TERMINAL PRO-BNP 2020-05-30 00:59:00 Trice Kraft [facility] COVID-19 (ID NOW RAPID 2020-05-30 00:59:00 Trice Kraft [facility] TESTING) Medical Branch EKG-12 LEAD 2020-05-30 00:39:36 Trice Kraft [facility] NOTICE OF PRIVACY 2020-05-29 23:34:11 Doctor Unassigned, No [facility] PRACTICES Name Medical Branch CONSENT/REFUSAL FOR 2020-05-29 23:33:17 [facility] DI[facility]NOSIS AND TREATMENT Name Medical Branch Encounters Start End Encounter Admission Attending Care Care Encounter Source Date/Time Date/Time Type Type Clinicians Facility Department ID 2022-01-[address] [facility] Surgery [id number] SLE 14:58:54 2022-02-08 2022-02-08 Outpatient [facility] [id number] SLE 00:00:00 00:00:00 2022-01-20 2022-01-25 Inpatient ER JASVIR [facility] [id number] [facility] 01:13:00 14:52:00 [facility] Med 2022-01-20 2022-01-20 [facility] [id number] [facility] 00:00:00 23:59:00 [place] e of Medicin e 2020-06-05 2020-06-05 Transition Mary Kay Cerna [id number] [facility] 00:00:00 00:00:00 of Care Cody Minery [id number] ity of [place] [id number] [facility] [place] [facility] [id number] [facility] 403 Branch 2020-06-05 2020-06-05 Transition Mary Kay Cerna [id number] 00:00:00 00:00:00 of Care Cody Minery [id number] [place] [id number] [facility] 2020-05-29 2020-06-04 [facility] 1.2.840. [id number] Univers 18:50:00 17:57:00 Encounter WilyArben chew [id number] ity of [place] [id number] [facility] [id number] [place] [id number] Branch 2020-05-29 2020-06-04 [facility] 1.2.840. 114 [id number] 18:50:00 17:57:00 Encounter WilyArben chew [id number] [place] [id number] [place] [id number] [facility] 2020-05-29 2020-05-29 Emergency X [facility] ERT [id number] Univers 18:28:00 [facility]:28[facility] Test Description Test Time Test Comments Results Result Comments Source ANTI-MITOCHONDRIAL AB, REFLEX TO TITER 2022-02-04 07:59:23 Test Item Value Reference Range Interpretation Comme nts SCAN RESULT (test code = 0889430) PHOSPHATIDYLETHANOL, [id number] 11:24:39 Test Item Value Reference Range Interpretation Comments PHOSPHATIDYLETHANOL (PETH) See scanned (test code = 4385161) report See scanned reportPOCT-GLUCOSE [id number] 09:57:09 Test Item Value Reference Range Interpretation Comments POC-GLUCOSE METER 216 mg/dL 70-110 H : TESTED A T [facility] (BEAKER) (test code = LATOYA Edgar [place], 1538) [id number]: Reservoir Engineering Manager/Techni diaz ID = [id number] for Aleksey [place] (pca2)[employer] BASIC METABOLIC [id number] 05:33:08 Test Item Value Reference Range Interpretation [...] S NOT APPLICABLE FOR DIALYSIS PATIEN TS. Reservoir Engineering Manager ID - PIAYA LCBC W/PLT COUNT & AUTO [id number] 04:37:52 Test Item Value Reference Range Interpretation [...] PERCENT (BEAKER) (test code = 2801) POCT-GLUCOSE [id number] 16:00:26 Test Item Value Reference Range Interpretation Comments POC-GLUCOSE METER 399 mg/dL 70-110 H : TESTED A T [facility] (BEAKER) (test code = [place], 1538) [id number]: Reservoir Engineering Manager/Techni diaz ID = [id number] for Maribel Rhoades BASIC METABOLIC [id number] 06:39:45 Test Item Value Reference Range Interpretation [...] S NOT APPLICABLE FOR DIALYSIS PATIEN TS. Reservoir Engineering Manager ID - PIAYA LCBC W/PLT COUNT & AUTO [id number] 05:29:49 Test Item Value Reference Range Interpretation [...] PERCENT (BEAKER) (test code = 2801) POCT-GLUCOSE [id number] 21:12:45 Test Item Value Reference Range Interpretation Comments POC-GLUCOSE METER 156 mg/dL 70-110 H : Notified RN/: (GAEL) (test code = TESTED AT [place] [address]) [facility], [id number]: Reservoir Engineering Manager/Techni diaz ID = [id number] for HAZEL CHUN POCT-GLUCOSE [id number] 19:36:30 Test Item Value Reference Range Interpretation Comments POC-GLUCOSE METER 209 mg/dL 70-110 H : Notified RN/: (GAEL) (test code = TESTED AT [place] [address]) [facility], [address]: Reservoir Engineering Manager/Techni diaz ID = [id number] for HAZEL CHUN POCT-GLUCOSE [id number] 16:34:24 Test Item Value Reference Range Interpretation Comments POC-GLUCOSE METER 414 mg/dL 70-110 HH : Notified RN/: TESTED (BEAKER) (test code AT [facility] [address] [facility] = 1538) [facility], [address]: Reservoir Engineering Manager/Techni diaz ID = [id number] for Anabel Silverio POCT-GLUCOSE [id number] 12:12:54 Test Item Value Reference Range Interpretation Comments POC-GLUCOSE METER 180 mg/dL 70-110 H : [facility] (BEAKER[facility] (test code [facility], = 1538) [address]: Reservoir Engineering Manager/Techni diaz ID = [id number] for Anabel Silverio POCT-GLUCOSE [id number] 07:53:32 Test Item Value Reference Range Interpretation Comments POC-GLUCOSE METER 263 mg/dL 70-110 H : TESTED A T [facility] 6720 (BEAKER) (test code [facility], = 1538) [address]: Reservoir Engineering Manager/Techni diaz ID = [id number] for Anabel Silverio COMPREHENSIVE METABOLIC [id number] 07:29:57 Test Item Value Reference Range Interpretation [...] S NOT APPLICABLE FOR DIALYSIS PATIEN TS. Reservoir Engineering Manager ID - SHANITA MSpecimen slightly ictericCBC W/PLT COUNT & AUTO [id number] 07:13:58 Test Item Value Reference Range Interpretation [...] PERCENT (BEAKER) (test code = 2801) POCT-GLUCOSE [id number] 21:11:42 Test Item Value Reference Range Interpretation Comments POC-GLUCOSE METER 138 mg/dL 70-110 H : Notified RN/MD: ([facility]) (test code = TESTED AT [place] [address] 1538) [facility], [address]: Reservoir Engineering Manager/Techni diaz ID = [id number] for AIDAN CHUNY POCT-GLUCOSE [id number] 16:54:38 Test Item Value Reference Range Interpretation Comments POC-GLUCOSE METER 327 mg/dL 70-110 H : TESTED A T [place] [address] ([facility]) (test code [facility], = 1538) [address]: Reservoir Engineering Manager/Techni diaz ID = [id number] for RED MCKEE HEPATIC FUNCTION [id number] 08:53:43 Test Item Value Reference Range Interpretation [...] code = 359 U/L 6-55 H 347) Reservoir Engineering Manager ID - DBSpecimen slightly ictericPOCT-GLUCOSE [id number] 08:02:49 Test Item Value Reference Range Interpretation Comments POC-GLUCOSE METER 262 mg/dL 70-110 H : TESTED A T [facility] 6720 (BEAKER) (test code [place], = 1538) [address]: Reservoir Engineering Manager/Techni diaz ID = [id number] for RED MCKEE BASIC METABOLIC [id number] 05:00:34 Test Item Value Reference Range Interpretation [...] S NOT APPLICABLE FOR DIALYSIS PATIEN TS. Reservoir Engineering Manager ID - CLAUDIO GSpecimen slightly ictericCBC W/PLT COUNT & AUTO [id number] 04:57:06 Test Item Value Reference Range Interpretation [...] (BEAKER) (test code = 2801) U/S, RENAL, [id number] 00:08:00Reason for exam:->[facility] : 1940 Sex: MFINAL [...] Knox MDReport Verified Date/Time: 01/22/2022 00:08:17 POCT-GLUCOSE [id number] 21:45:31 Test Item Value Reference Range Interpretation Comments POC-GLUCOSE METER 258 mg/dL 70-110 H : TESTED A T [facility] 67[address] (BEAKER) (test code = [facility], 1538) [address]: Reservoir Engineering Manager/Techni diaz ID = [id number] for ZACK MORALES, ABDOULAYETU CREATININE, RANDOM [id number] 19:56:51 Test Item Value Reference Range Interpretation Comments CREATININE URINE (ANDREWAKER) (test 23.7 mg/dL code = 375) Reference Range: No NormalsOperator ID - DBPROTEIN, RANDOM [id number] 19:56:51 Test Item Value Reference Range Interpretation Comments PROTEIN, URINE (ANDREWAKER) (test code = 62 mg/dL 0-14 H 1569) Reservoir Engineering Manager ID - DBURINALYSIS W/ [id number] 19:47:32 Test Item Value Reference Range Interpretation [...] = 1521) SOURCE(BEAKER) (test code = 2795) Reservoir Engineering Manager ID - [auto]Reservoir Engineering Manager ID - techPOCT-GLUCOSE [id number] 16:23:46 Test Item Value Reference Range Interpretation Comments POC-GLUCOSE METER 270 mg/dL 70-110 H : TESTED A T [facility] 6720 (BEAKER) (test code = [place], 1538) [address]: Reservoir Engineering Manager/Techni diaz ID = [id number] for AR JC, JENNIFFER KAMAR TITER AND [id number] 11:55:46 Test Item Value Reference Range Interpretation Comments KAMAR TITER (BEAKER) (test code = :40 1541) KAMAR PATTERN (BEAKER) (test code = Homogeneous 1781) ANTI-NUCLEAR ANTIBODY (KAMAR)2022-01-21 11:55:40 Test Item Value Reference Range Interpretation Comments ANTI-NUCLEAR ANTIBODY (KAMAR) (BEAKER) Positive Negative A (test code = 418) Test performed by IFA method.POCT-GLUCOSE [id number] 11:43:49 Test Item Value Reference Range Interpretation Comments POC-GLUCOSE METER 225 mg/dL 70-110 H : TESTED A T [facility] 6720 (BEAKER) (test code = [facility], 1538) [address]: Reservoir Engineering Manager/Techni diaz ID = [id number] for ELIZABETH DUFFY HEPATIC FUNCTION [id number] 10:49:28 Test Item Value Reference Range Interpretation [...] code = 455 U/L 6-55 H 347) Reservoir Engineering Manager ID - BSSpecimen moderately ictericPOCT-GLUCOSE [id number] 08:08:00 Test Item Value Reference Range Interpretation Comments POC-GLUCOSE METER 172 mg/dL 70-110 H : TESTED A T [facility] 6720 (BEAKER) (test code = [facility], 1538) [address]: Reservoir Engineering Manager/Techni diaz ID = [id number] for ELIZABETH DUFFY CBC W/PLT COUNT & AUTO [id number] 05:10:56 Test Item Value Reference Range Interpretation [...] (BEAKER) (test code = 2801) BASIC METABOLIC [id number] 05:03:58 Test Item Value Reference Range Interpretation [...] S NOT APPLICABLE FOR DIALYSIS PATIEN TS. Reservoir Engineering Manager ID - SHANITA MSpecimen slightly sqekbtzAHRJSCPPS9199-40-50 04:54:21 Test Item Value Reference Range Interpretation Comments MAGNESIUM (BEJAMARI) (test code = 1.9 mg/dL 1.6-2.6 627) Reservoir Engineering Manager ID - SHANITA MU/S, ABDOMINAL, WITH [id number] 00:51:00Reason for exam:->elevated lfts [facility] : 1940 Sex: MFINAL [...] Ward MDReport Verified Date/Time: 01/21/2022 00:51:44 POCT-GLUCOSE [id number] 21:06:06 Test Item Value Reference Range Interpretation Comments POC-GLUCOSE METER 248 mg/dL 70-110 H : TESTED A T [facility] 6720 (GAEL) (test code = LATOYA Edgar [facility], 1538) [address]: Reservoir Engineering Manager/Techni diaz ID = [id number] for STACEY GARRETT HEPATITIS B CORE ANTIBODY, [id number] 18:10:17 Test Item Value Reference Range Interpretation Comments HEPATITIS B CORE TOTAL ANTIBODY Reactive Nonreactive A (GAEL) (test code = 497) Reservoir Engineering Manager ID - BSOperator ID - BSOperator ID - BSHEPATITIS C [id number] 17:50:30 Test Item Value Reference Range Interpretation Comments HEPATITIS C ANTIBODY (GAEL) Nonreactive Nonreactive (test code = 367) Reservoir Engineering Manager ID - BSHEPATITIS B SURFACE [id number] 17:50:24 Test Item Value Reference Range Interpretation Comments HEPATITIS B SURFACE ANTIGEN (2) Nonreactive Nonreactive (BEAKER) (test code = 2585) Specimen is considered negative for HBsAg.HEPATITIS B SURFACE [id number] 17:50:24 Test Item Value Reference Range Interpretation Comments HEPATITIS B SURFACE ANTIBODY 830.9 mIU/mL <8.0 H (BEAKER) (test code = 647) Reservoir Engineering Manager ID - BSHEPATITIS B CORE ANTIBODY, [id number] 17:36:49 Test Item Value Reference Range Interpretation Comments HEPATITIS B CORE IGM ANTIBODY Nonreactive Nonreactive (BEAKER) (test code = 645) Reservoir Engineering Manager ID - BSHEPATITIS A ANTIBODY, [id number] 17:36:49 Test Item Value Reference Range Interpretation Comments HEPATITIS A IGG ANTIBODY (BEAKER) Nonreactive Nonreactive (test code = 2797) Reservoir Engineering Manager ID - BSALPHA FETOPROTEIN (AFP), TUMOR [id number] 17:36:48 Test Item Value Reference Range Interpretation Comments ALPHA-FETOPROTEIN (BEAKER) (test 3.7 ng/mL <10.0 code = 1094) Reservoir Engineering Manager ID - BSIMMUNOGLOBULIN G (IGG)2022-01-20 17:15:56 Test Item Value Reference Range Interpretation Comments IMMUNOGLOBULIN G (IGG) 1081 mg/dL See_Comment [Aut omated message] (BEAKER) (test code = The sy stem which 427) generated this result transmit moshe reference range : 540-1,822. The reference range was not used to interpret this result as normal/abnormal . Reservoir Engineering Manager ID - BSIRON, TIBC, % SAT. (WITHOUT FERRITIN)2022-01-20 17:15:56 Test Item Value Reference Range Interpretation Comments IRON (BEAKER) (test code = 547) 94.0 ug/dL 40.0-160.0 TOTAL IRON BINDING CAPACITY 245 ug/dL 250-450 L (BEAKER) (test code = 769) IRON % SATURATION (2) (BEAKER) 38 % 20-55 (test code = 2590) Reservoir Engineering Manager ID - BSPOCT-GLUCOSE [id number] 16:55:44 Test Item Value Reference Range Interpretation Comments POC-GLUCOSE METER 226 mg/dL 70-110 H : [facility] (BEAKER) (test code = [place], 1538) [address]: Reservoir Engineering Manager/Techni diaz ID = [id number] for Lauryn MONIQUE WRVTX-2-[id number] 16:54:50 Test Item Value Reference Range Interpretation Comments ALPHA-1 ANTITRYPSIN (GAEL) 162.50 mg/dL 90.00-200.00 (test code = 502) Reservoir Engineering Manager ID - [id number] 16:52:28 Test Item Value Reference Range Interpretation Comments FERRITIN (ANDREWAKER) (test code = 1286.44 ng/mL 5.00-275.00 H 361) Reservoir Engineering Manager ID - BSPOCT-GLUCOSE [id number] 11:44:46 Test Item Value Reference Range Interpretation Comments POC-GLUCOSE METER 207 mg/dL 70-110 H : TESTED A T [facility] 6720 (GAEL) (test code [facility], = 1538) [address]: Reservoir Engineering Manager/Techni diaz ID = [id number] for RED MCKEE HEMOGLOBIN [id number] 10:30:47 Test Item Value Reference Range Interpretation [...] 5.7- 6.4% indicates increased risk for diabetes (prediabetes)."Reservoir Engineering Manager ID - ADMRAD, CHEST, 2 [id number] 10:28:00Reason for exam:->concern for heart failureDiagnosis:->Shortness of breath [facility] : 1940 Sex: MFINAL [...] Poole Verified Date/Time: 01/20/2022 10:28:13 Reading Location: [facility] Radiology Reading Room POCT- GLUCOSE [id number] 07:47:02 Test Item Value Reference Range Interpretation Comments POC-GLUCOSE METER 173 mg/dL 70-110 H : TESTED A T [facility] 6720 (BEAKER) (test code [facility], = 1538) [address]: Reservoir Engineering Manager/Techni diaz ID = [id number] for RED MCKEE POCT-GLUCOSE [id number] 03:51:00 Test Item Value Reference Range Interpretation Comments POC-GLUCOSE METER 188 mg/dL 70-110 H : TESTED A T [facility] 6720 (BEAKER) (test code = LATOYA Edgar [facility], 1538) [address]: Reservoir Engineering Manager/Techni diaz ID = [id number] for HAZEL CHUN BASIC METABOLIC [id number] 03:35:28 Test Item Value Reference Range Interpretation [...] S NOT APPLICABLE FOR DIALYSIS PATIEN TS. Reservoir Engineering Manager ID - SHANITA MSpecimen moderately ictericB-TYPE NATRIURETIC FACTOR (BNP) 2022-01-20 03:16:05 Test Item Value Reference Range Interpretation Comments B-TYPE NATRIURETIC PEPTIDE (BEAKER) 319 pg/mL 0-100 H (test code = 700) Reservoir Engineering Manager ID - SHANITA MHIGH SENSITIVITY TROPONIN [id number] 03:16:00 Test Item Value Reference Range Interpretation Comments HIGH SENSITIVITY 35 pg/ml See_Comment [Automated message] TROPONIN I (test code = The system which 7830053) generated this result transmitted ref erence range: <=35. Th e reference range was not used to int erpret this result as normal/abnormal . Reservoir Engineering Manager ID - SHANITA MThe FARM TECHNICIAN STAT High Sensitivity Troponin-I results should be used in conjunction with other diagnostic information such as ECG, clinical observations and information, and patient symptoms to aid in the diagnosis of DE.HEPATIC FUNCTION [id number] 03:14:30 Test Item Value Reference Range Interpretation [...] code = 666 U/L 6-55 H 347) Reservoir Engineering Manager ID - SHANITA MSpecimen moderately [id number] 03:14:29 Test Item Value Reference Range Interpretation Comments MAGNESIUM (BEAKER) (test code = 1.6 mg/dL 1.6-2.6 627) Reservoir Engineering Manager ID - SHANITA MLIPID [id number] 03:14:29 Test Item Value Reference Range Interpretation [...] Borderline 130-159 High 160-189 Very High >=190 Reservoir Engineering Manager ID - SHANITA MSpecimen moderately ictericCBC W/PLT COUNT & AUTO [id number] 02:51:43 Test Item Value Reference Range Interpretation [...] Interpretation Comments POCT GLU (test code = 8430503384) 133 mg/dL 70-110 H Lab Interpretation (test code = Abnormal 44840-5) [facility]2020-[facility] 17:13:00 Test Item Value Reference Range Interpretation Comments POCT GLU (test code = 4662006706) 154 mg/dL 70-110 H Lab Interpretation (test code = Abnormal 98440-7) [facility] 1 [id number] 14:00:56HISTORY: Follow-up of CHF. TECHNIQUE: AP view [...] ifany, residual pulmonary edema seen at this time.[facility] GLUCOSE (AUTOMATED)2020-06-04 13:19:00 Test Item Value Reference Range Interpretation Comments POCT GLU (test code = 4329386284) 98 mg/dL 70-110 Lab Interpretation (test code = Normal 47253-6) [facility] GLUCOSE (AUTOMATED)2020-06-04 01:35:00 Test Item Value Reference Range Interpretation Comments POCT GLU (test code = 3930321174) 192 mg/dL 70-110 H Lab Interpretation (test code = Abnormal 35559-9) [facility] GLUCOSE (AUTOMATED)2020-06-03 21:51:00 Test Item Value Reference Range Interpretation Comments POCT GLU (test code = 6789024400) 98 mg/dL 70-110 Lab Interpretation (test code = Normal 35557-0) [facility] GLUCOSE (AUTOMATED)2020-06-03 17:28:00 Test Item Value Reference Range Interpretation Comments POCT GLU (test code = 9198639538) 195 mg/dL 70-110 H Lab Interpretation (test code = Abnormal 53953-3) [facility] GLUCOSE (AUTOMATED)2020-06-03 13:43:00 Test Item Value Reference Range Interpretation Comments POCT GLU (test code = 4701197301) 98 mg/dL 70-110 Lab Interpretation (test code = Normal 83912-9) [facility] WITH [id number] 13:10:00 Test Item Value Reference Range Interpretation [...] RDW-SD (test code = 46.4 fL 38.5-51.6 41331-0) RDW-CV (test code = 13.7 % 12.1-15.4 788-0) PLT (test code = See_Comment L [Automated 777-3) message] The sy stem which generated this result transmitted reference range : 150 - 328 10*3/ ?L. The reference r martin was not used to interpret this result as normal/abnormal . MPV (test code = 10.5 fL 9.8-13 81182-6) NRBC/100 WBC (test See_Comment [Automat ed code = 7191067617) message] The system which generated this result transmitted reference range : 0.0 - 10.0 /100 WBCs. The refer ence range was not u sed to interpret th is result as normal/abnormal . NRBC x10^3 (test code <0.01 See_Comment [Auto mated = 7786450030) message] The s ystem which generated this result transmitted reference range : 10*3/?L. The reference range was not used to interpret this result as normal/abnormal . GRAN MAT (NEUT) % 55.9 % (test code = 770-8) IMM GRAN % (test code 0.40 % = 9117733599) LYMPH % (test code = 16.5 % 736-9) MONO % (test code = 12.4 % 5905-5) EOS % (test code = 14.0 % 713-8) BASO % (test code = 0.8 % 706-2) GRAN MAT x10^3(ANC) 1.35 10*3/uL 1.99-6.95 L (test code = 7122836790) IMM GRAN x10^3 (test <0.03 0-0.06 code = 3596924905) LYMPH x10^3 (test code 0.40 10*3/uL 1.09-3.23 L = 731-0) MONO x10^3 (test code 0.30 10*3/uL 0.36-1.02 L = 742-7) EOS x10^3 (test code = 0.34 10*3/uL 0.06-0.53 711-2) BASO x10^3 (test code <0.03 0.01-0.09 = 704-7) Lab Interpretation Abnormal (test code = 08723-2) [facility]. METABOLIC PANEL (94211)2020-06-03 12:46:00 Test Item Value Reference Range Interpretation Comments NA (test code = 136 mmol/L 135-145 9701874649) K (test code = 3.9 mmol/L 3.5-5 6530090537) CL (test code = 100 mmol/L 98-108 9041598386) CO2 TOTAL (test code = 27 mmol/L 23-31 6880078551) AGAP (test code = 2-16 4376629136) BUN (test code = 37 mg/dL 7-23 H 0731075984) GLUCOSE (test code = 87 mg/dL 70-110 8197896316) CREATININE (test code = 1.85 mg/dL 0.6-1.25 H 2790277840) TOTAL BILI (test code = 0.4 mg/dL 0.1-1.6 9922012281) CALCIUM (test code = 9.4 mg/dL 8.6-10.6 0786269807) T PROTEIN (test code = 6.3 g/dL 6.3-8.2 4744810538) ALBUMIN (test code = 3.2 g/dL 3.5-5 L 9190103031) ALK PHOS (test code = 58 U/L 34-122 2153242262) ALTv (test code = 22 U/L 5-50 1742-6) AST(SGOT) (test code = 31 U/L 13-40 9738762778) eGFR Calculation mL/min/1.73m2 (Non-) (test code = 9755493884) eGFR Calculation mL/min/1.73m2 () (test code = 3051621358) EMIR (test code = EMIR) Association of [...] tests). Lab Interpretation Abnormal (test code = 03760-1) [facility] 01:56:00 Test Item Value Reference Range Interpretation Comments POCT GLU (test code = 8639961773) 152 mg/dL 70-110 H Lab Interpretation (test code = Abnormal 50034-0) [facility] BARIUM SWALLOW, (COOKIE)2020-06-02 23:24:43 Flash [...] nectar thick liquid, puree or jewelry solids. [facility], Radiant Results Inft 06/02/2020 6:25 PM CDTEXAM: [...] to the speech pathologist's report for further details.[facility] GLUCOSE (AUTOMATED)2020-06-02 21:24:00 Test Item Value Reference Range Interpretation Comments POCT GLU (test code = 129 mg/dL 70-110 H Notifi ed Provider 2549419702) Lab Interpretation (test Abnormal code = 37162-4) [facility] GLUCOSE (AUTOMATED)2020-06-02 17:12:00 Test Item Value Reference Range Interpretation Comments POCT GLU (test code = 159 mg/dL 70-110 H Notifi ed Provider 6407195765) Lab Interpretation (test Abnormal code = 60782-6) [facility] WITH [id number] 14:34:00 Test Item Value Reference Range Interpretation [...] RDW-SD (test code = 46.7 fL 38.5-51.6 06782-8) RDW-CV (test code = 13.9 % 12.1-15.4 788-0) PLT (test code = See_Comment [Automated 777-3) message] The sy stem which generated this result transmitted reference range : 150 - 328 10*3/ ?L. The reference r martin was not used to interpret this result as normal/abnormal . MPV (test code = 10.4 fL 9.8-13 83988-6) NRBC/100 WBC (test See_Comment [Automat ed code = 6031542842) message] The system which generated this result transmitted reference range : 0.0 - 10.0 /100 WBCs. The refer ence range was not u sed to interpret th is result as normal/abnormal . NRBC x10^3 (test code <0.01 See_Comment [Auto mated = 5950777421) message] The s ystem which generated this result transmitted reference range : 10*3/?L. The reference range was not used to interpret this result as normal/abnormal . GRAN MAT (NEUT) % 58.9 % (test code = 770-8) IMM GRAN % (test code 0.40 % = 9593317650) LYMPH % (test code = 11.3 % 736-9) MONO % (test code = 10.8 % 5905-5) EOS % (test code = 17.3 % 713-8) BASO % (test code = 1.3 % 706-2) GRAN MAT x10^3(ANC) 1.36 10*3/uL 1.99-6.95 L (test code = 3694601411) IMM GRAN x10^3 (test <0.03 0-0.06 code = 1654751258) LYMPH x10^3 (test code 0.26 10*3/uL 1.09-3.23 L = 731-0) MONO x10^3 (test code 0.25 10*3/uL 0.36-1.02 L = 742-7) EOS x10^3 (test code = 0.40 10*3/uL 0.06-0.53 711-2) BASO x10^3 (test code 0.03 10*3/uL 0.01-0.09 = 704-7) Lab Interpretation Abnormal (test code = 63291-8) [facility]2020-06-02 13:45:00 Test Item Value Reference Range Interpretation Comments POCT GLU (test code = 7551455112) 105 mg/dL 70-110 Lab Interpretation (test code = Normal 05367-0) [facility]ney[facility] [id number] 13:39:00 Test Item Value Reference Range Interpretation Comments Blood Culture Staphylococcus Organism elvia ntified Workup (test epidermidis by DNA probeFor code = 600-7) susceptibility results, refer to culture # - [id number] Gram stain Gram positive cocci Anaerobi c Bottle (test code = 664-3) [facility] METABOLIC PANEL (00251)2020-06-02 13:10:00 Test Item Value Reference Range Interpretation Comments NA (test code = 133 mmol/L 135-145 L 8541652425) K (test code = 3.4 mmol/L 3.5-5 L 8090489393) CL (test code = 96 mmol/L 98-108 L 4948574187) CO2 TOTAL (test code = 28 mmol/L 23-31 0143749082) AGAP (test code = 2-16 1036714477) BUN (test code = 34 mg/dL 7-23 H 5682643165) GLUCOSE (test code = 135 mg/dL 70-110 H 4734011792) CREATININE (test code = 1.83 mg/dL 0.6-1.25 H 2583248969) TOTAL BILI (test code = 0.4 mg/dL 0.1-1.6 0379110127) CALCIUM (test code = 9.4 mg/dL 8.6-10.6 8258364936) T PROTEIN (test code = 6.0 g/dL 6.3-8.2 L 7961829857) ALBUMIN (test code = 3.1 g/dL 3.5-5 L 7750574481) ALK PHOS (test code = 52 U/L 34-122 5799740103) ALTv (test code = 25 U/L 5-50 1742-6) AST(SGOT) (test code = 31 U/L 13-40 0209970536) eGFR Calculation mL/min/1.73m2 (Non-) (test code = 2486504045) eGFR Calculation mL/min/1.73m2 () (test code = 5135064093) EMIR (test code = EMIR) Association of [...] tests). Lab Interpretation Abnormal (test code = 16580-3) [facility]2020-09-14 13:10:00 Test Item Value Reference Range Interpretation Comments MAGNESIUM (test code = 5080080645) 1.8 mg/dL 1.7-2.4 Lab Interpretation (test code = Normal 09592-0) [facility] McKinneyMYCOPLASMA PNEUMONIAE ANTIBODY, [id number] 11:34:00 Test Item Value Reference Range Interpretation [...] an 12 months post-infection. Performed By: YUMIKO amado[address] [place] [id number] aboratory Director: Julisa Choi MD [Aut omated message] The sy stem which generated this result transmit moshe reference range : <=0.76. The reference r martin was not used to int erpret this result as normal/abnormal . [facility] CULTURE [id number] 22:31:00 Test Item Value Reference Range Interpretation Comments Blood Culture-Aerobic Culture positive. No growth AA P revious (test code = 29913-0) See Blood prelim inary Culture Workup verified resu lt for additional was Culture I n information. Progress on 05/30/2020 at 03 19 CDT Blood Culture positive. No growth AA Previous Culture-Anaerobic See Blood preliminar y (test code = 82159-0) Culture Workup veri fied result for additional was Culture I n information. Progress on 05/30/2020 at 07 CDT Lab Interpretation Abnormal (test code = 33119-5) [facility] GLUCOSE (AUTOMATED)2020-06-01 21:59:00 Test Item Value Reference Range Interpretation Comments POCT GLU (test code = 6963781320) 101 mg/dL 70-110 Lab Interpretation (test code = Normal 28442-3) [facility] GLUCOSE (AUTOMATED)2020-06-01 17:53:00 Test Item Value Reference Range Interpretation Comments POCT GLU (test code = 8694783498) 184 mg/dL 70-110 H Lab Interpretation (test code = Abnormal 50783-1) [facility] CULTURE [id number] 17:20:00 Test Item Value Reference Range Interpretation Comments Blood Culture-Aerobic Culture positive. No growth AA P revious (test code = 25108-4) See Blood prelim inary Culture Workup verified resu lt for additional was Culture I n information. Progress on 05/30/2020 at 03 19 CDT Blood Culture positive. No growth AA Previous Culture-Anaerobic See Blood preliminar y (test code = 31418-7) Culture Workup veri fied result for additional was Culture I n information. Progress on 05/30/2020 at 07 01 CDT Lab Interpretation Abnormal (test code = 89039-4) [facility]2020-06-01 13:22:00 Test Item Value Reference Range Interpretation Comments POCT GLU (test code = 0580511833) 109 mg/dL 70-110 Lab Interpretation (test code = Normal 83584-2) [facility] WITH [id number] 11:12:00 Test Item Value Reference Range Interpretation [...] RDW-SD (test code = 46.0 fL 38.5-51.6 76880-0) RDW-CV (test code = 13.8 % 12.1-15.4 788-0) PLT (test code = See_Comment L [Automated 777-3) message] The sy stem which generated this result transmitted reference range : 150 - 328 10*3/ ?L. The reference r martin was not used to interpret this result as normal/abnormal . MPV (test code = 10.3 fL 9.8-13 79743-1) NRBC/100 WBC (test See_Comment [Automat ed code = 7163750594) message] The system which generated this result transmitted reference range : 0.0 - 10.0 /100 WBCs. The refer ence range was not u sed to interpret th is result as normal/abnormal . NRBC x10^3 (test code <0.01 See_Comment [Auto mated = 9712147175) message] The s ystem which generated this result transmitted reference range : 10*3/?L. The reference range was not used to interpret this result as normal/abnormal . GRAN MAT (NEUT) % 71.9 % (test code = 770-8) IMM GRAN % (test code 0.30 % = 7500388594) LYMPH % (test code = 8.0 % 736-9) MONO % (test code = 10.5 % 5905-5) EOS % (test code = 8.4 % 713-8) BASO % (test code = 0.9 % 706-2) GRAN MAT x10^3(ANC) 2.32 10*3/uL 1.99-6.95 (test code = 3017675764) IMM GRAN x10^3 (test <0.03 0-0.06 code = 3509014176) LYMPH x10^3 (test code 0.26 10*3/uL 1.09-3.23 L = 731-0) MONO x10^3 (test code 0.34 10*3/uL 0.36-1.02 L = 742-7) EOS x10^3 (test code = 0.27 10*3/uL 0.06-0.53 711-2) BASO x10^3 (test code 0.03 10*3/uL 0.01-0.09 = 704-7) Lab Interpretation Abnormal (test code = 54293-5) [id number] 11:07:00 Test Item Value Reference Range Interpretation Comments NT-proBNP (test code 80984 pg/mL See_Comment H [Autom ated = 9342281676) message] The system which generated this result transmitted reference range : <=450. The reference range was not used to interpret this result as normal/abnormal . EMIR (test code = EMIR) Biotin has been reported to cause a negative bias, interpret results relative to patient's use of biotin. Lab Interpretation Abnormal (test code = 84956-7) [facility]. METABOLIC PANEL (39997)2020-06-01 11:03:00 Test Item Value Reference Range Interpretation Comments NA (test code = 136 mmol/L 135-145 1532372303) K (test code = 3.9 mmol/L 3.5-5 6005360769) CL (test code = 97 mmol/L 98-108 L 0569923814) CO2 TOTAL (test code = 30 mmol/L 23-31 0378060507) AGAP (test code = 2-16 1039320447) BUN (test code = 34 mg/dL 7-23 H 9646437728) GLUCOSE (test code = 112 mg/dL 70-110 H 5828657867) CREATININE (test code = 1.81 mg/dL 0.6-1.25 H 6560685052) TOTAL BILI (test code = 0.5 mg/dL 0.1-1.0 6450893246) CALCIUM (test code = 9.5 mg/dL 8.6-10.6 2391541329) T PROTEIN (test code = 6.2 g/dL 6.3-8.2 L 3465521180) ALBUMIN (test code = 3.2 g/dL 3.5-5 L 6237401124) ALK PHOS (test code = 58 U/L 34-122 8039177402) ALTv (test code = 32 U/L 5-50 1742-6) AST(SGOT) (test code = 38 U/L 13-40 7566740128) eGFR Calculation mL/min/1.73m2 (Non-) (test code = 7496317545) eGFR Calculation mL/min/1.73m2 () (test code = 4285846825) EMIR (test code = EMIR) Association of [...] tests). Lab Interpretation Abnormal (test code = 95658-0) [facility]2020-[facility]-13 11:03:00 Test Item Value Reference Range Interpretation Comments MAGNESIUM (test code = 1893812358) 2.0 mg/dL 1.7-2.4 Lab Interpretation (test code = Normal 49705-0) [facility] CARE VENOUS BLOOD [id number] 10:21:00 Test Item Value Reference Range Interpretation Comments PH (test code = 7.32-7.42 3804829457) PCO2 GIFTY (test code = See_Comment [Auto mated message] The 2297045977) system which [employer] nerated this result transmit moshe reference range : 41 - 51 mmHg. The refer ence range was not used to interpret this result as normal/abnormal . PO2 GIFTY (test code = See_Comment [Autom ated message] The 9339266135) system which [employer] nerated this result transmit moshe reference range : 25 - 40 mmHg. The refer ence range was not used to interpret this result as normal/abnormal . HCO3 GIFTY (test code = See_Comment [Auto mated message] The 1616619016) system which [employer] nerated this result transmit moshe reference range : 24 - 28 mEq/L. The refe rence range was not used to interpret this result as normal/abnormal . AC VBE(BEAKER) (test mEq/L code = 1123967892) [facility]AUTOMATED[facility]2020-06-01 01:53:00 Test Item Value Reference Range Interpretation Comments POCT GLU (test code = 8703078537) 124 mg/dL 70-110 H Lab Interpretation (test code = Abnormal 13609-9) [facility] GLUCOSE (AUTOMATED)2020-05-31 22:35:00 Test Item Value Reference Range Interpretation Comments POCT GLU (test code = 9502922912) 105 mg/dL 70-110 Lab Interpretation (test code = Normal 92928-0) [facility] GLUCOSE (AUTOMATED)2020-05-31 17:52:00 Test Item Value Reference Range Interpretation Comments POCT GLU (test code = 2598036533) 106 mg/dL 70-110 Lab Interpretation (test code = Normal 69078-0[id number] 17:33:00 Test Item Value Reference Range Interpretation Comments AMMONIA (test code = 2781227974) <9 9-33 L Lab Interpretation (test code = Abnormal 73076-2) [facility]neyGRAM POSITIVE BLOOD PATHOGENS DNA [id number] 14:44:00 Test Item Value Reference Range Interpretation Comments Coagulase Negative Positive Negative A Staphylococcus (test code = 14086-3) EMIR (test code = EMIR) Coagulase negative [...] contact the Antimicrobial Stewardship Program with questions.Pager: ?[phone] Testing included eleven identification and three resistance marker targets. Lab Interpretation Abnormal (test code = 06510-9) [facility]2020-05-31 13:09:00 Test Item Value Reference Range Interpretation Comments POCT GLU (test code = 6457462552) 154 mg/dL 70-110 H Lab Interpretation (test code = Abnormal 70461-2) [facility]neyURINE [id number] 12:11:00 Test Item Value Reference Range Interpretation Comments URINE CULTURE (test No aerobic growth (< code = 630-4) 1000 CFU/mL) [facility] [id number] 11:51:00 Test Item Value Reference Range Interpretation Comments NT-proBNP (test code 48196 pg/mL See_Comment H [Autom ated = 8475784614) message] The system which generated this result transmitted reference range : <=450. The reference range was not used to interpret this result as normal/abnormal . EMIR (test code = EMIR) Biotin has been reported to cause a negative bias, interpret results relative to patient's use of biotin. Lab Interpretation Abnormal (test code = 17483-8) [facility]neyUR[facility] [id number] 11:25:00 Test Item Value Reference Range Interpretation Comments URIC ACID (test code = 0009762156) 9.0 mg/dL 3.6-8 H Lab Interpretation (test code = Abnormal 44856-2) [facility]neyCBC WITH [id number] 11:02:00 Test Item Value Reference Range Interpretation [...] RDW-SD (test code = 47.7 fL 38.5-51.6 26639-4) RDW-CV (test code = 14.0 % 12.1-15.4 788-0) PLT (test code = See_Comment L [Automated 777-3) message] The sy stem which generated this result transmitted reference range : 150 - 328 10*3/ ?L. The reference r martin was not used to interpret this result as normal/abnormal . MPV (test code = 10.5 fL 9.8-13 50642-3) NRBC/100 WBC (test See_Comment [Automat ed code = 6522549379) message] The system which generated this result transmitted reference range : 0.0 - 10.0 /100 WBCs. The refer ence range was not u sed to interpret th is result as normal/abnormal . NRBC x10^3 (test code <0.01 See_Comment [Auto mated = 9454257565) message] The s ystem which generated this result transmitted reference range : 10*3/?L. The reference range was not used to interpret this result as normal/abnormal . GRAN MAT (NEUT) % 81.0 % (test code = 770-8) IMM GRAN % (test code 0.40 % = 1120885892) LYMPH % (test code = 4.8 % 736-9) MONO % (test code = 11.5 % 5905-5) EOS % (test code = 1.7 % 713-8) BASO % (test code = 0.6 % 706-2) GRAN MAT x10^3(ANC) 4.23 10*3/uL 1.99-6.95 (test code = 8704476713) IMM GRAN x10^3 (test <0.03 0-0.06 code = 7694360758) LYMPH x10^3 (test code 0.25 10*3/uL 1.09-3.23 L = 731-0) MONO x10^3 (test code 0.60 10*3/uL 0.36-1.02 = 742-7) EOS x10^3 (test code = 0.09 10*3/uL 0.06-0.53 711-2) BASO x10^3 (test code 0.03 10*3/uL 0.01-0.09 = 704-7) Lab Interpretation Abnormal (test code = 21449-3) [facility]neyTROPONIN [id number] 10:45:00 Test Item Value Reference Range Interpretation Comments TROPONIN I (test 0.167 ng/mL See_Comment H [Automated code = 7535915250) message] The system which generated this result [...] ? Lab Interpretation Abnormal (test code = 12032-6) [facility]COM[facility] METABOLIC PANEL (41785)2020-05-31 10:35:00 Test Item Value Reference Range Interpretation Comments NA (test code = 133 mmol/L 135-145 L 0482201657) K (test code = 3.4 mmol/L 3.5-5 L 9572465125) CL (test code = 95 mmol/L 98-108 L 8157442126) CO2 TOTAL (test code = 29 mmol/L 23-31 4151517095) AGAP (test code = 2-16 9523428715) BUN (test code = 36 mg/dL 7-23 H 9313634553) GLUCOSE (test code = 136 mg/dL 70-110 H 4080030046) CREATININE (test code = 1.71 mg/dL 0.6-1.25 H 5018656100) TOTAL BILI (test code = 0.8 mg/dL 0.1-1.8 2124119737) CALCIUM (test code = 9.4 mg/dL 8.6-10.6 3361545513) T PROTEIN (test code = 6.5 g/dL 6.3-8.2 6259801602) ALBUMIN (test code = 3.4 g/dL 3.5-5 L 1155335198) ALK PHOS (test code = 59 U/L 34-122 3628964968) ALTv (test code = 35 U/L 5-50 1742-6) AST(SGOT) (test code = 42 U/L 13-40 H 3077100752) eGFR Calculation mL/min/1.73m2 (Non-) (test code = 0226034544) eGFR Calculation mL/min/1.73m2 () (test code = 5365367702) EIMR (test code = EMIR) Association of Glomerular [...] tests). Lab Interpretation Abnormal (test code = 39752-5) [facility]2020-09-12 10:35:00 Test Item Value Reference Range Interpretation Comments MAGNESIUM (test code = 9549869591) 1.4 mg/dL 1.7-2.4 L Lab Interpretation (test code = Abnormal 06391-2) [facility]OM[facility]2020-05-30 21:17:00 Test Item Value Reference Range Interpretation Comments POCT GLU (test code = 1286295141) 105 mg/dL 70-110 Lab Interpretation (test code = Normal 85134-2) [facility]neyPNEUMOCOCCAL [id number] 19:20:00 Test Item Value Reference Range Interpretation Comments S. pneumoniae antigen Positive Negative A (test code = 3445805026) EMIR (test code = EMIR) S. pneumoniae vaccine may give false positive results in urine with this assay in the 48 hours following vaccination. Lab Interpretation (test Abnormal code = 40339-3) [facility]neyLEGIONELLA URINARY ANTIGEN [id number] 19:20:00 Test Item Value Reference Range Interpretation Comments Legionella Urinary Negative Negative Antigen (test code = 8878605258) EMIR (test code = EMIR) Negative for [...] test. Lab Interpretation (test Normal code = 89871-9) [facility]neyCORTISOL [id number] 18:48:00 Test Item Value Reference Range Interpretation Comments SHAYY AM (test code = 23.8 ug/dL 4.5-23 H 4938403080) EMIR (test code = EMIR) Biotin has been reported to cause a positive bias, interpret results relative to patient's use of biotin. Lab Interpretation (test Abnormal code = 83653-2) [facility]SE [facility]AUTOMATED)2020-05-30 17:17:00 Test Item Value Reference Range Interpretation Comments POCT GLU (test code = 9181868369) 117 mg/dL 70-110 H Lab Interpretation (test code = Abnormal 51265-7) [facility]neyTROPONIN [id number] 17:14:00 Test Item Value Reference Range Interpretation Comments TROPONIN I (test 0.222 ng/mL See_Comment H [Automated code = 0410842327) message] The system which generated this result [...] ? Lab Interpretation Abnormal (test code = 16929-9) [facility]neyOSMOLALITY [id number] 16:53:00 Test Item Value Reference Range Interpretation Comments OSMO U (test code = See_Comment [Automa moshe message] 8611111583) The system [employer] generated this result transmitted ref erence range: 50-1,100 mOsm/kg. The re ference range was not u sed to interpret this result as normal/abnor mal. Lab Interpretation (test Normal code = 89148-5) [facility]neyVITAMIN D, [id number] 16:43:00 Test Item Value Reference Range Interpretation Comments VIT D 25OH (test code = 29 ng/mL 25-80 97521-6) EMIR (test code = EMIR) Deficiency: <20 ng/mLInsufficiency : 20-24 ng/mLOptimal: 25-80 ng/mL Lab Interpretation (test Normal code = 03150-2) [facility] McKinneyUREA NITROGEN, URINE [id number] 15:44:00 Test Item Value Reference Range Interpretation Comments UREA N UR (test code = 6959374608) 114 mg/dL [facility] McKinneyCT THORAX WO [id number] 15:23:12 1. ?Pulmonary edema with moderate volume [...] sagittal MPR images were generated and reviewed.(Display pngjn-fj-ynwc = 35 cm) FINDINGS: Lower neck/thyroid: Unremarkable. [...] sagittal MPR images were generated and reviewed.(Display yggqy-rd-cetg = 35 cm)FINDINGS:Lower neck/thyroid: Unremarkable.Lungs: Centrilobular septal [...] reviewed this study and agree with theabove report.[facility] 2020-05-30 14:53:00 Test Item Value Reference Range Interpretation Comments POCT GLU (test code = 3872436109) 100 mg/dL 70-110 Lab Interpretation (test code = Normal 34424-8) [facility]neyVITAMIN B12, [id number] 13:07:00 Test Item Value Reference Range Interpretation Comments VIT B12 (test code = 412 pg/mL 240-930 3345793070) EMIR (test code = EMIR) Biotin has been reported to cause a positive bias, interpret results relative to patient's use of biotin. Lab Interpretation (test Normal code = 05373-3) [facility]neyFOLATE2020-09-11 13:07:00 Test Item Value Reference Range Interpretation Comments FOLATE SER (test code = 8.4 ng/mL 3-20 Biot in has been 0401583047) reported to cau se a positive bias, interpret resul ts relative to patient's use o f biotin. Lab Interpretation (test Normal code = 99996-4) [facility] McKinneyCORONAVIRUS COVID-19 [id number] 12:49:00 Test Item Value Reference Range Interpretation Comments SARS-CoV-2 PCR (test Not Detected Not Detected code = 40681-5) EMIR (test code = EMIR) [employer]epSc[employer]illeid Xpert ?Xpress SARS-CoV-2 Assay is a rapid, real-time RT-PCR test intended for the qualitative detection of nucleic acid from the SARS-CoV-2 in nasopharyngeal ([employer]) specimens. It is used under Emergency Use [...] indicated. Lab Interpretation Normal (test code = 35454-5) [facility]neyRESPIRATORY PANEL BY [id number] 12:44:00 Test Item Value Reference Range Interpretation Comments Adenovirus (test code = Negative Negative 18038-3) Coronavirus HKU1 (test Negative Negative code = 57915-5) Coronavirus NL63 (test Negative Negative code = 29159-9) Coronavirus 229E (test Negative Negative code = 49091-1) Coronavirus OC43 (test Negative Negative code = 38977-1) Human Metapneumovirus Negative Negative (test code = 71515-3) Human Negative Negative Rhinovirus/Enterovirus (test code = 46734-7) Influenza A (test code = Negative Negative 72101-2) Influenza B (test code = Negative Negative 61692-8) Parainfluenza Virus 1 Negative Negative (test code = 97956-1) Parainfluenza Virus 2 Negative Negative (test code = 92880-3) Parainfluenza Virus 3 Negative Negative (test code = 26002-2) Parainfluenza Virus 4 Negative Negative (test code = 07827-8) Respiratory Syncytial Negative Negative Virus (test code = 27750-5) Bordetella parapertussis Negative Negative (test code = 88875-8) Bordetella pertussis Negative Negative (test code = 40452-9) Chlamydia pneumoniae Negative Negative (test code = 50008-0) Mycoplasma pneumoniae Negative Negative (test code = 17064-9) EMIR (test code = EMIR) Negative:A negative result does not rule-out infection. ?This assay does not test for all potential infectious agents. ? Positive:A positive test result does not necessarily indicate the presence of viable organism. ? Lab Interpretation (test Normal code = 95026-5) [facility] McKinneyPROCALCITONIN2020-09-11 12:14:00 Test Item Value Reference Range Interpretation Comments Procalcitonin (test 0.06 ng/mL <0.07 code = 4319588325) EMIR (test code = EMIR) INTERPRETATION OF [...] lung abscess/empyema. For further information please refer to:[email or web address] Lab Interpretation Normal (test code = 37704-4) [facility] McKinneyOSMOLALITY [id number] 11:49:00 Test Item Value Reference Range Interpretation Comments OSMOLALITY (test code = See_Comment [Au tomated message] 9181584463) The system [employer] generated this result transmitted ref erence range: 278 - 30 5 mOsm/kg. The re ference range was not u sed to interpret this result as normal/abnor mal. Lab Interpretation (test Normal code = 00317-5) [facility] McKinneyN-TERMINAL [id number] 11:19:00 Test Item Value Reference Range Interpretation Comments NT-proBNP (test code 66764 pg/mL See_Comment H [Autom ated = 6335395365) message] The system which generated this result transmitted reference range : <=450. The reference range was not used to interpret this result as normal/abnormal . EMIR (test code = EMIR) Biotin has been reported to cause a negative bias, interpret results relative to patient's use of biotin. Lab Interpretation Abnormal (test code = 11777-5) [facility] McKinneySEDIMENTATION [id number] 11:01:00 Test Item Value Reference Range Interpretation Comments ESR (test code = See_Comment H [Automated message] 6734938266) The system [employer] generated this result transmitted ref erence range: 0 - 10 m m/HR. The reference r martin was not used to interpret this result as normal/abnor mal. Lab Interpretation (test Abnormal code = 95152-7) [facility]neyTROPONIN [id number] 10:57:00 Test Item Value Reference Range Interpretation Comments TROPONIN I (test 0.233 ng/mL See_Comment H [Automated code = 0234299697) message] The system which generated this result [...] ? Lab Interpretation Abnormal (test code = 73453-9) [facility] McKinneyIRON [id number] 10:53:00 Test Item Value Reference Range Interpretation Comments IRON (test code = 5933628709) 37 ug/dL 50-160 L TIBC (test code = 9353282240) 259 ug/dL 250-410 % FE SAT (test code = 5163338442) 14 % 20-50 L Lab Interpretation (test code = Abnormal 73797-9) [facility] METABOLIC PANEL (90118)2020-05-30 10:44:00 Test Item Value Reference Range Interpretation Comments NA (test code = 135 mmol/L 135-145 6888623392) K (test code = 4.3 mmol/L 3.5-5 0229930277) CL (test code = 98 mmol/L 98-108 5772039683) CO2 TOTAL (test code = 26 mmol/L 23-31 4356903879) AGAP (test code = 2-16 6506278618) BUN (test code = 29 mg/dL 7-23 H 7557457440) GLUCOSE (test code = 127 mg/dL 70-110 H 3384437655) CREATININE (test code = 1.38 mg/dL 0.6-1.25 H 2505076220) TOTAL BILI (test code = 0.9 mg/dL 0.1-1.2 5500667057) CALCIUM (test code = 9.4 mg/dL 8.6-10.6 4805210797) T PROTEIN (test code = 6.6 g/dL 6.3-8.2 6438663475) ALBUMIN (test code = 3.7 g/dL 3.5-5 0623514474) ALK PHOS (test code = 65 U/L 34-122 7716412966) ALTv (test code = 28 U/L 5-50 1742-6) AST(SGOT) (test code = 42 U/L 13-40 H 6526427635) eGFR Calculation mL/min/1.73m2 (Non-) (test code = 2906915749) eGFR Calculation mL/min/1.73m2 () (test code = 0245460293) EMIR (test code = EMIR) Association of [...] tests). Lab Interpretation Abnormal (test code = 90999-6) [facility]neyMAGNESIUM2020-09-11 10:44:00 Test Item Value Reference Range Interpretation Comments MAGNESIUM (test code = 4841800044) 1.4 mg/dL 1.7-2.4 L Lab Interpretation (test code = Abnormal 19074-7) [facility]neyURIC [id number] 10:44:00 Test Item Value Reference Range Interpretation Comments URIC ACID (test code = 7009530332) 7.8 mg/dL 3.6-8 Lab Interpretation (test code = Normal 47010-3) [facility] McKinneyPROTEIN CREAT RATIO URINE [id number] 10:29:00 Test Item Value Reference Range Interpretation Comments T. PROT U (test code = 104 mg/dL 2888-6) CREAT U (test code = 14.4 mg/dL 7305332990) Protein/Creatinine Ratio 0.0-2.0 H Urine (test code = 2929539026) EMIR (test code = EMIR) Random Urine Total Protein Reference Ranges Random Specimen: ? Less than 10 mg/dLFirst Morning Specimen: ? ?Less than 20 mg/dL ? Lab Interpretation (test Abnormal code = 74376-4) [facility] WITH [id number] 10:28:00 Test Item Value Reference Range Interpretation [...] RDW-SD (test code = 47.6 fL 38.5-51.6 59665-6) RDW-CV (test code = 14.2 % 12.1-15.4 788-0) PLT (test code = See_Comment L [Automated 777-3) message] The sy stem which generated this result transmitted reference range : 150 - 328 10*3/ ?L. The reference r martin was not used to interpret this result as normal/abnormal . MPV (test code = 10.5 fL 9.8-13 08862-2) NRBC/100 WBC (test See_Comment [Automat ed code = 4444311550) message] The system which generated this result transmitted reference range : 0.0 - 10.0 /100 WBCs. The refer ence range was not u sed to interpret th is result as normal/abnormal . NRBC x10^3 (test code <0.01 See_Comment [Auto mated = 8762447062) message] The s ystem which generated this result transmitted reference range : 10*3/?L. The reference range was not used to interpret this result as normal/abnormal . GRAN MAT (NEUT) % 83.1 % (test code = 770-8) IMM GRAN % (test code 0.40 % = 3337863701) LYMPH % (test code = 3.7 % 736-9) MONO % (test code = 11.8 % 5905-5) EOS % (test code = 0.4 % 713-8) BASO % (test code = 0.6 % 706-2) GRAN MAT x10^3(ANC) 4.52 10*3/uL 1.99-6.95 (test code = 0097013975) IMM GRAN x10^3 (test <0.03 0-0.06 code = 0972197515) LYMPH x10^3 (test code 0.20 10*3/uL 1.09-3.23 L = 731-0) MONO x10^3 (test code 0.64 10*3/uL 0.36-1.02 = 742-7) EOS x10^3 (test code = <0.03 0.06-0.53 L 711-2) BASO x10^3 (test code 0.03 10*3/uL 0.01-0.09 = 704-7) Lab Interpretation Abnormal (test code = 62747-6) [facility]neySODIUM, URINE [id number] 10:25:00 Test Item Value Reference Range Interpretation Comments NA URINE (test code = 8208835446) 123 mmol/L [facility] McKinneyPROTHROMBIN TIME / [id number] 08:09:00 Test Item Value Reference Range Interpretation Comments PROTIME PATIENT (test See_Comment [Auto mated message] code = 5964-2) The system [employer] generated this result transmitted ref erence range: 12.0 - 1 4.7 Seconds. The re ference range was not u sed to interpret this result as normal/abnor mal. INR (test code = 6301-6) Nor mal INR <1.1; Warfarin Therap eutic range 2.0 to 3. 0 or 2.5 to 3.5, dep ending upon the indica tions. Lab Interpretation (test Normal code = 62705-7) [facility] McKinneyGLYCOSYLATED HEMOGLOBIN (A1C)2020-05-30 07:33:00 Test Item Value Reference Range Interpretation Comments HGB A1C (test code = 5.4 % 4-6 4548-4) EMIR (test code = EMIR) %A1C (NGSP) Interpretation (ADA)4.8-5.6 ? ? Normal or (Non-Diabetic Range)5.7-6.4 ? ? Increased Risk (Pre-Diabetic)>6.5 ?Diabetes Indicated Lab Interpretation Normal (test code = 11823-1) [facility] McKinneyLIPID PANEL (16753)(TOTAL CHOLESTEROL, TRIGLYCERIDES, HDL)2020-05-30 07:20:00 Test Item Value Reference Range Interpretation Comments CHOL (test code = 174 mg/dL 120-200 6537007066) HDL (test code = 37 mg/dL >40 L 6734388729) HDLC RATIO (test code = See_Comment [Au tomated message] 7435305438) The system [employer] generated this result transmit moshe reference range : <=5.0. The refe rence range was not u sed to interpret th is result as normal/abnormal . TRIG (test code = 85 mg/dL 30-170 8497337542) LDL CHOL (test code = 120 mg/dL See_Comment [Auto mated message] 62010-8) The system [employer] generated this result transmit moshe reference range : <=160. The refe rence range was not u sed to interpret th is result as normal/abnormal . VLDL (test code = 17 mg/dL 5-60 5103894599) Lab Interpretation (test Abnormal code = 31460-1) [facility] [id number] 07:19:00 Test Item Value Reference Range Interpretation Comments CK (test code = 8815711879) 88 U/L 33-194 Lab Interpretation (test code = Normal 41925-2) [facility] [id number] 07:19:00 Test Item Value Reference Range Interpretation Comments URIC ACID (test code = 6863868673) 7.9 mg/dL 3.6-8 Lab Interpretation (test code = Normal 71711-4) [facility]FERRITIN [id number] 06:48:00 Test Item Value Reference Range Interpretation Comments FERRITIN (test code = 73.2 ng/mL 18-464 3800906996) EMIR (test code = EMIR) Biotin has been reported to cause a negative bias, interpret results relative to patient's use of biotin. Lab Interpretation (test Normal code = 99366-6) [facility] STIMULATING [id number] 06:46:00 Test Item Value Reference Range Interpretation Comments TSH (test code = See_Comment [Automated message] 5289464118) The system [employer] generated this result transmitted ref erence range: 0.45 - 4 .70 mIU/L. The refe rence range was not u sed to interpret this result as normal/abnor mal. Lab Interpretation (test Normal code = 72493-2) [facility]MAGN[facility]IUM2020-09-11 06:19:00 Test Item Value Reference Range Interpretation Comments MAGNESIUM (test code = 6475579170) 1.6 mg/dL 1.7-2.4 L Lab Interpretation (test code = Abnormal 17089-5) [facility]OSPHORUS2020-09-11 06:19:00 Test Item Value Reference Range Interpretation Comments PHOSPHORUS (test code = 7077780297) 2.9 mg/dL 2.5-5 Lab Interpretation (test code = Normal 08772-9) [facility]2020-09-11 04:26:00 Test Item Value Reference Range Interpretation Comments APPEARANCE (test code = Clear Clear 0148388499) COLOR (test code = Yellow Yellow 7696050389) PH (test code = 4.8-8.0 3653877528) SP GRAVITY (test code = 1.003-1.030 1916794479) GLU U QUAL (test code = Normal Normal 5349062768) BLOOD (test code = 1+ Negative A 2919317413) KETONES (test code = Negative Negative 9522907232) PROTEIN (test code = 500 mg/dL Negative A 2887-8) UROBILIN (test code = Normal Normal 9103781707) BILIRUBIN (test code = Negative Negative 3333142159) NITRITE (test code = Negative Negative 3490046729) LEUK MARLENA (test code = Negative Negative 9335591347) RBC/HPF (test code = See_Comment H [Autom ated message] 5007222391) The system [employer] generated this result transmit moshe reference range : 0 - 3 HPF. The refe rence range was not u sed to interpret th is result as normal/abnormal . WBC/HPF (test code = See_Comment [Autom ated message] 9989068454) The system [employer] generated this result transmit moshe reference range : 0 - 5 HPF. The refe rence range was not u sed to interpret th is result as normal/abnormal . BACTERIA (test code = Few Negative A 4680487797) MUCOUS (test code = Slight Negative LPF A 0249255750) HYAL CAST (test code = See_Comment H [Aut omated message] 6910419730) The system [employer] generated this result transmit msohe reference range : <=2 LPF. The refere nce range was not u sed to interpret th is result as normal/abnormal . GRAN CASTS (test code = See_Comment H [Au tomated message] 2030234524) The system [employer] generated this result transmit moshe reference range : <=1 LPF. The refere nce range was not u sed to interpret th is result as normal/abnormal . Lab Interpretation (test Abnormal code = 01071-3) [facility]neyXR CHEST 1 [id number] 03:33:16 Multifocal interstitial and airspace opacities are concerning forbronchopneumonia. These findings can also be seen with atypical infectiousprocess, including COVID-19 pneumonia. Disclaimer: Generally,the findings on chest imaging in COVID-19 are notspecific, and overlap with other infections, including influenza, H1N1,SARS and MERS.According to the Centers for Disease Control (CDC) and recent statement ofthe [employer], viral testing remains the [...] enlarged, unchanged. No acute osseous structure abnormality. [facility], Radiant Results Inft User - 05/29/2020 10:34 [...] Disease Control (CDC) and recent statement ofthe [employer], viral testing remains the only specificmethod of diagnosis. Confirmation with the viral test is required, even ifradiologic findings are suggestive of COVID-[address]Preliminary Report Dictated by Resident: Ming Ivan MD., have reviewed this study and agree with the abovereport.[facility]neyCOVID-[facility] (ID NOW RAPID TESTING)2020-05-30 01:54:00 Test Item Value Reference Range Interpretation Comments SARS-CoV-2 Rapid ID NOW Not Detected Not Detected (test code = 88330-1) EMIR (test code = EMIR) ID NOW COVID-19 Assay is an isothermal nucleic acid amplification test intended for the qualitative detection of nucleic acid from SARS-CoV-2 viral RNA in nasopharyngeal ([employer]) specimens. It is used under Emergency Use [...] indicated. Lab Interpretation Normal (test code = 35860-4) [facility]neyTROPONI [id number] 01:52:00 Test Item Value Reference Range Interpretation Comments TROPONIN I (test 0.148 ng/mL See_Comment H [Automated code = 7346115282) message] The system which generated this result [...] ? Lab Interpretation Abnormal (test code = 23784-7) [facility]neyN-TERMINAL [id number] 01:49:00 Test Item Value Reference Range Interpretation Comments NT-proBNP (test code 46977 pg/mL See_Comment H [Autom ated = 9405935838) message] The system which generated this result transmitted reference range : <=450. The reference range was not used to interpret this result as normal/abnormal . EMIR (test code = EMIR) Biotin has been reported to cause a negative bias, interpret results relative to patient's use of biotin. Lab Interpretation Abnormal (test code = 93485-5) [facility]neyCOMP. METABOLIC PANEL (61664)2020-05-30 01:41:00 Test Item Value Reference Range Interpretation Comments NA (test code = 135 mmol/L 135-145 9120951438) K (test code = 4.0 mmol/L 3.5-5 9559243533) CL (test code = 98 mmol/L 98-108 1355720537) CO2 TOTAL (test code = 27 mmol/L 23-31 4486420330) AGAP (test code = 2-16 7701020656) BUN (test code = 27 mg/dL 7-23 H 3036227932) GLUCOSE (test code = 143 mg/dL 70-110 H 4636091110) CREATININE (test code = 1.51 mg/dL 0.6-1.25 H 3505745353) TOTAL BILI (test code = 0.6 mg/dL 0.1-1.6 7891852070) CALCIUM (test code = 9.5 mg/dL 8.6-10.6 2882853205) T PROTEIN (test code = 6.9 g/dL 6.3-8.2 6016316096) ALBUMIN (test code = 3.9 g/dL 3.5-5 4982679181) ALK PHOS (test code = 78 U/L 34-122 5874261731) ALTv (test code = 29 U/L 5-50 1742-6) AST(SGOT) (test code = 37 U/L 13-40 9989791244) eGFR Calculation mL/min/1.73m2 (Non-) (test code = 2993036067) eGFR Calculation mL/min/1.73m2 () (test code = 8658971749) EMIR (test code = EMIR) Association of [...] tests). Lab Interpretation Abnormal (test code = 81229-6) [facility]neyCT HEAD WO [id number] 01:40:13 No acute intracranial hemorrhage or mass [...] of a left posterior ethmoid air cell. [facility], Radiant Results Inft User - 05/29/2020 [...] ethmoid aircell.IMPRESSIONNo acute intracranial hemorrhage or mass effect.[facility]neyPOCT GLUCOSE (AUTOMATED)2020-05-30 01:23:00 Test Item Value Reference Range Interpretation Comments POCT GLU (test code = 3989425936) 130 mg/dL 70-110 H Lab Interpretation (test code = Abnormal 52206-1) [facility] WITH [id number] 01:22:00 Test Item Value Reference Range Interpretation [...] RDW-SD (test code = 46.8 fL 38.5-51.6 61291-4) RDW-CV (test code = 13.9 % 12.1-15.4 788-0) PLT (test code = See_Comment [Automated 777-3) message] The sy stem which generated this result transmitted reference range : 150 - 328 10*3/ ?L. The reference r martin was not used to interpret this result as normal/abnormal . MPV (test code = 9.9 fL 9.8-13 24047-8) NRBC/100 WBC (test See_Comment [Automat ed code = 2739630600) message] The system which generated this result transmitted reference range : 0.0 - 10.0 /100 WBCs. The refer ence range was not u sed to interpret th is result as normal/abnormal . NRBC x10^3 (test code <0.01 See_Comment [Auto mated = 0067141361) message] The s ystem which generated this result transmitted reference range : 10*3/?L. The reference range was not used to interpret this result as normal/abnormal . GRAN MAT (NEUT) % 82.3 % (test code = 770-8) IMM GRAN % (test code 0.50 % = 1677956694) LYMPH % (test code = 5.5 % 736-9) MONO % (test code = 10.6 % 5905-5) EOS % (test code = 0.6 % 713-8) BASO % (test code = 0.5 % 706-2) GRAN MAT x10^3(ANC) 5.23 10*3/uL 1.99-6.95 (test code = 0014649039) IMM GRAN x10^3 (test 0.03 10*3/uL 0-0.06 code = 1430400285) LYMPH x10^3 (test code 0.35 10*3/uL 1.09-3.23 L = 731-0) MONO x10^3 (test code 0.67 10*3/uL 0.36-1.02 = 742-7) EOS x10^3 (test code = 0.04 10*3/uL 0.06-0.53 L 711-2) BASO x10^3 (test code 0.03 10*3/uL 0.01-0.09 = 704-7) Lab Interpretation Abnormal (test code = 36942-0) [facility] ABG + LACTIC [id number] 01:14:00 Test Item Value Reference Range Interpretation Comments PH (test code = 2) 7.35-7.45 PCO2 (test code = See_Comment [Automat ed 8308356502) message] The sy stem which generated this result transmitted reference range : 35 - 45 mmHg. The reference range was not used to interpret this result as normal/abnormal . PO2 (test code = See_Comment H [Automated 9126481913) message] The sy stem which generated this result transmitted reference range : 80 - 100 mmHg. The reference range was not used to interpret this result as normal/abnormal . HCO3 (test code = See_Comment [Automate d 6806679217) message] The sy stem which generated this result transmitted reference range : 22 - 26 mEq/L. The reference range was not used to interpret this result as normal/abnormal . BE (test code = See_Comment [Automated 1179162886) message] The sy stem which generated this result transmitted reference range : -3.0 - 3.0 mEq/ L. The reference r martin was not used to interpret this result as normal/abnormal . LACTIC ACID (test code 1.10 mmol/L = 5230308505) Lab Interpretation Abnormal (test code = 49519-7) [facility](AGE >30DAYS)2020-05-30 01:04:00 Test Item Value Reference Range Interpretation Comments POCT Glu (age>30days) (test code = 130 mg/dL 70-110 A 3342) Lab Interpretation (test code = Abnormal 29492-1) [facility]
[2022-02-05] MEDS ORDERED: FLEET ENEMA ADULT PR ONE (02:01)
[2022-02-05] MEDS ORDERED: MAGNESIUM CITRATE 300 ML BOT ONE (02:02)
[2022-02-05] MEDS ORDERED: NA CHLORIDE 0.9% 500 ML ONE ×2 (02:02→04:33)
--- NOTE | 2022-02-05 04:57 | ER ---
Nurse's Notes [facility] Name: Jimbo Cat Age: 81 yrs Sex: Male : 1940 Arrival Date: 02/05/2022 Time: 01:31 Bed 16 Private MD: Diagnosis: Constipation, unspecified;Dehydration;Abdominal pain, unspecified Presentation: 02/05 01:44 Chief complaint: EMS states: EMS REPORT PATIENT C/O NO BOWEL MOVEMENT X2 DAYS, C/O ag7 URINARY RETENION. Coronavirus screen: Client denies travel out of the [place] in the last 14 days. At this time, the client does not indicate any symptoms associated with coronavirus-19. Ebola Screen: Patient negative for fever greater than or equal to 101.5 degrees Fahrenheit, and additional compatible Ebola Virus Disease symptoms Patient denies exposure to infectious person. Patient denies travel to an Ebola-affected area in the 21 days before illness onset. Initial Sepsis Screen: Does the patient meet any 2 criteria? No. Patient's initial sepsis screen is negative. Does the patient have a suspected source of infection? No. Patient's initial sepsis screen is negative. Risk Assessment: Do you want to hurt yourself or someone else? Patient reports no desire to harm self or others. Onset of symptoms was February 05, 2022. 01:44 Method Of Arrival: EMS ag7 01:44 Acuity: SYDNIE 2 ag7 Triage Assessment: 01:48 General: Appears in no apparent distress. General: Behavior is calm, cooperative, ag7 appropriate for age. Pain: Complains of pain in abdomen Pain does not radiate. Pain currently is 10 out of 10 on a pain scale. Quality of pain is described as pressure, Pain began suddenly, Is continuous, Alleviated by nothing. 01:48 GI: Abdomen is round non-distended, Bowel sounds present X 4 quads. Abd is soft and non ag7 tender X 4 quads. Historical: - Allergies: 01:47 No Known Allergies; ag7 - Home Meds: 01:47 Unable to obtain [Active]; ag7 - PMHx: 01:47 Congestive heart failure; CVA; diabetes mellitus; Myocardial infarction; ag7 - PSHx: 01:47 Appendectomy; Pacemaker/Defibrillator; ag7 - Immunization history:: Client reports receiving the 2nd dose of the Covid vaccine, Flu vaccine is up to date. - Social history:: Smoking status: Patient denies any tobacco usage or history of. - Family history:: not pertinent. - Hospitalizations: : No recent hospitalization is reported. Screenin:47 Abuse screen: Denies threats or abuse. Nutritional screening: No deficits noted. ag7 Tuberculosis screening: No symptoms or risk factors identified. Fall Risk No fall in past 12 months (0 pts). No secondary diagnosis (0 pts). No IV (0 pts). Ambulatory Aid- None/Bed Rest/Nurse Assist (0 pts). Gait- Normal/Bed Rest/Wheelchair (0 pts) Mental Status- Oriented to own ability (0 pts). Total Johnston Fall Scale indicates No Risk (0-24 pts). Assessment: 01:45 Reassessment: see triage assessment. ag7 03:00 Reassessment: Patient and/or family updated on plan of care and expected duration. Pain ag7 level reassessed. Patient is alert, oriented x 3, equal unlabored respirations, skin warm/dry/pink. Patient is having bowel movements loose and large Patient states feeling better. 04:00 Reassessment: Patient and/or family updated on plan of care and expected duration. Pain ag7 level reassessed. Patient is alert, oriented x 3, equal unlabored respirations, skin warm/dry/pink. 05:00 Reassessment: No changes from previously documented assessment. Patient states symptoms ag7 have improved. Vital Signs: 01:30 BP 103 / 48; Pulse 59; Resp 16 S; Pulse Ox 98% on R/A; Pain 10/10; ag7 01:44 BP 103 / 48; Pulse 59; Resp 24; Temp 98.0; Pulse Ox 99% on R/A; Weight 63.5 kg; Height ag7 5 ft. 7 in. (170.18 cm); Pain 10/10; 02:05 BP 135 / 63; Pulse 60; Resp 16 S; Pulse Ox 98% on R/A; Pain 5/10; ag7 01:44 Body Mass Index 21.93 (63.50 kg, 170.18 cm) ag7 ED Course: 01:31 Patient arrived in ED. wm 01:32 Rhys Dent MD is Attending Physician. rn 01:44 Joi Ordaz RN is Primary Nurse. ag7 01:47 Triage completed. ag7 01:49 Patient has correct armband on for positive identification. Bed in low position. Call ag7 light in reach. Side rails up X 1. 01:49 Patient 1/2 BOTTLE OF MILK OF MAGNESIUM. ag7 02:16 Inserted saline lock: 22 gauge in left antecubital area, using aseptic technique. ag7 Missed attempt(s): 20 gauge in right antecubital area. 05:45 No provider procedures requiring assistance completed. ag7 06:04 IV discontinued, intact, bleeding controlled, No redness/swelling at site. Pressure ag7 dressing applied. Administered Medications: 02:15 Drug: NS 0.9% 500 ml Route: IV; Rate: bolus; Site: left antecubital; ag7 03:30 Follow up: IV Status: Completed infusion; IV Intake: 500ml ag7 02:15 Drug: Fleet Enema (sodium phosphate) 133 ml Route: MI; ag7 02:45 Follow up: Response: No adverse reaction ag7 02:15 Drug: Magnesium Citrate Liquid 300 ml Route: PO; ag7 02:45 Follow up: Response: No adverse reaction ag7 04:29 Not Given (bowel movement resulted MD moore): Fleet Bisacodyl Enema (10 mg/30mL) 10 mg ag7 MI once 04:30 Drug: NS 0.9% 500 ml Route: IV; Rate: bolus; Site: left antecubital; ag7 05:42 Follow up: IV Status: Completed infusion; IV Intake: 500ml ag7 Medication: 01:50 VIS not applicable for this client. ag7 Intake: 03:30 IV: 500ml; Total: 500ml. ag7 05:42 IV: 500ml; Total: 1000ml. ag7 Output: 04:40 Stool: 4 (Loose Stool) ; Total: 0ml. ag7 04:40 Stool: 1 (Formed Stool) ; Total: 0ml. ag7 06:03 Stool: 1 (Loose Stool) ; Total: 0ml. ag7 Outcome: 04:56 Discharge ordered by . rn 06:03 Condition: stable ag7 06:03 Discharge instructions given to patient, Instructed on discharge instructions, follow up and referral plans. Demonstrated understanding of instructions, follow-up care. 09:42 Discharged to home ap3 09:42 Patient left the ED. ap3 Signatures: Rhys Dent MD MD rn Noemi Ibarra RN RN ap3 Madelin Love Angela RN RN ag7
--- NOTE | 2022-02-05 04:57 | EDPHYS ---
Physician Documentation [facility] Name: Jimbo Cat Age: 81 yrs Sex: Male : 1940 Arrival Date: 02/05/2022 Time: 01:31 Bed 16 Private MD: ED Physician Rhys Dent HPI: 02/05 03:04 This 81 yrs old Male presents to ER via EMS with complaints of abd pain, constipation. rn 03:04 The patient presents with abdominal pain. rn 03:04 Onset: The symptoms/episode began/occurred 2 day(s) ago. The symptoms do not radiate. rn Associated signs and symptoms: Pertinent positives: constipation, Pertinent negatives: nausea and vomiting, blood in stools, fever. The symptoms are described as crampy, intermittent. Modifying factors: The symptoms are alleviated by nothing, the symptoms are aggravated by nothing. Severity of pain: At its worst the pain was moderate in the emergency department the pain is unchanged. The patient has not experienced similar symptoms in the past. The patient has not recently seen a physician. Patient seen earlier today, left after CT scan, returns for persistent abd cramping and constipation, no bowel movement for 2 days. No fever. . Historical: - Allergies: 01:47 No Known Allergies; ag7 - Home Meds: 01:47 Unable to obtain [Active]; ag7 - PMHx: 01:47 Congestive heart failure; CVA; diabetes mellitus; Myocardial infarction; ag7 - PSHx: 01:47 Appendectomy; Pacemaker/Defibrillator; ag7 - Immunization history:: Client reports receiving the 2nd dose of the Covid vaccine, Flu vaccine is up to date. - Social history:: Smoking status: Patient denies any tobacco usage or history of. - Family history:: not pertinent. - Hospitalizations: : No recent hospitalization is reported. ROS: 03:04 Constitutional: Negative for fever, chills, and weight loss, Eyes: Negative for injury, rn pain, redness, and discharge, Cardiovascular: Negative for chest pain, palpitations, and edema, Respiratory: Negative for shortness of breath, cough, wheezing, and pleuritic chest pain, Abdomen/GI: + abd pain and constipation Back: Negative for injury and pain, : Negative for injury, bleeding, discharge, and swelling, MS/Extremity: Negative for injury and deformity, Skin: Negative for injury, rash, and discoloration, Neuro: Negative for headache, weakness, numbness, tingling, and seizure. Exam: 03:04 Constitutional: This is a well developed, well nourished patient who is awake, alert, rn and in no acute distress. Head/Face: Normocephalic, atraumatic. Cardiovascular: Regular rate and rhythm. No pulse deficits. Respiratory: Speaking full sentences, unlabored. No increased work of breathing, no retractions or nasal flaring. Abdomen/GI: soft, non-tender, non-distended Skin: Warm, dry MS/ Extremity: Pulses equal, no cyanosis. Neuro: Awake and alert, GCS 15 Vital Signs: 01:30 BP 103 / 48; Pulse 59; Resp 16 S; Pulse Ox 98% on R/A; Pain 10/10; ag7 01:44 BP 103 / 48; Pulse 59; Resp 24; Temp 98.0; Pulse Ox 99% on R/A; Weight 63.5 kg; Height ag7 5 ft. 7 in. (170.18 cm); Pain 10/10; 02:05 BP 135 / 63; Pulse 60; Resp 16 S; Pulse Ox 98% on R/A; Pain 5/10; ag7 01:44 Body Mass Index 21.93 (63.50 kg, 170.18 cm) ag7 MDM: 01:32 Patient medically screened. rn 03:04 Differential diagnosis: constipation, dehydration, ascites. Data reviewed: vital signs, rn nurses notes, old medical records. ED course: CT reviewed from earlier, showed fecal retention but no obstruction. Laxative and enema given here in addition to fluids, with some response, patient feels better overall. . 04:27 ED course: Pt now having much better output with bowel movement, says feels a little rn dizzy after going so much, will give fluids and reeval for dc home.. 04:55 Counseling: I had a detailed discussion with the patient and/or guardian regarding: the rn historical points, exam findings, and any diagnostic results supporting the discharge/admit diagnosis, radiology results, the need for outpatient follow up, to return to the emergency department if symptoms worsen or persist or if there are any questions or concerns that arise at home. Response to treatment: the patient's symptoms have markedly improved after treatment, and as a result, I will discharge patient. Special discussion: I discussed with the patient/guardian in detail that at this point there is no indication for admission to the hospital. It is understood, however, that if the symptoms persist or worsen the patient needs to return immediately for re-evaluation. 02/05 01:33 Order name: IV Start; Complete Time: 02:15 rn Administered Medications: 02:15 Drug: NS 0.9% 500 ml Route: IV; Rate: bolus; Site: left antecubital; ag7 03:30 Follow up: IV Status: Completed infusion; IV Intake: 500ml ag7 02:15 Drug: Fleet Enema (sodium phosphate) 133 ml Route: MA; ag7 02:45 Follow up: Response: No adverse reaction ag7 02:15 Drug: Magnesium Citrate Liquid 300 ml Route: PO; ag7 02:45 Follow up: Response: No adverse reaction ag7 04:29 Not Given (bowel movement resulted MD moore): Fleet Bisacodyl Enema (10 mg/30mL) 10 mg ag7 MA once 04:30 Drug: NS 0.9% 500 ml Route: IV; Rate: bolus; Site: left antecubital; ag7 05:42 Follow up: IV Status: Completed infusion; IV Intake: 500ml ag7 Disposition Summary: 02/05/22 04:56 Discharge Ordered Location: Home rn Problem: new rn Symptoms: have improved rn Condition: Stable rn Diagnosis - Constipation, unspecified rn - Dehydration rn - Abdominal pain, unspecified rn Followup: rn - With: Private Physician - When: As needed - Reason: Recheck today's complaints, Re-evaluation by your physician Discharge Instructions: - Discharge Summary Sheet rn - Abdominal Pain, Adult rn - Constipation, Adult rn - Dehydration, Adult rn Forms: - Medication Reconciliation Form rn - Thank You Letter rn - 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 rn Laxative and enema given here in addition to fluids, with great response, patient feels better overall. . rn
[2022-02-05 09:56] VITALS: TEMP 98
[2022-02-05 09:59] VITALS: BP 135/63; O2SAT 98
== END 2022-02-05 09:42 | disposition home or self-care (01) ==
LOC: ER 01:27
DX: K59.00 Constipation, unspecified (principal); E86.0 Dehydration; E11.9 Type 2 diabetes mellitus without complications; I50.9 Heart failure, unspecified; Z86.73 Personal history of transient ischemic attack (TIA), and cerebral infarction without residual deficits; Z95.810 Presence of automatic (implantable) cardiac defibrillator
CPT/HCPCS: 96361; 96360; 99283; J7040 ×2

== ENCOUNTER 2022-02-18 22:41 | Inpatient (IN) | payer OTHER ==
--- OUTSIDE RECORDS SUMMARY | 2022-02-18 22:48 | XMS REPORT | Continuity of Care Document ---
:1940 Author Organization [facility] t Address [address] [place] [address] Care Team Providers Name Role Phone JOHNSON COLE Primary Care Physician Unavailable Herve EVANS Attending Clinician Unavailable HOLLIE DARNELL Attending Clinician Unavailable JASVIR Attending Clinician Unavailable Eryn REGALADO, A Attending Clinician Unavailable Abena VICTOR, S Attending Clinician Wily VICTOR Attending Clinician Herve EVANS Admitting Clinician Unavailable CORDELL SMITH Admitting Clinician Unavailable Wily VICTOR Admitting Clinician Payers Payer Name Policy Type Policy Number Effective Date Expiration Date Lauryn little UNITED MEDICARE [id number] 2021 O 00:00:00 Problems Condition Condition Condition [...] Disease Active Univers 9-11 ity of 00:00: [place] [facility] Pneumonia Pneumonia Disease Active Uni vers due to due to 9-11 [place]y of infectious [place] organism organism 00 Medica l Branch Elevated Elevated Disease Active Unive rs troponin I troponin I 9-11 it y of level level 00:00: [place] [facility] Acute on Acute on Disease Active Unive rs chronic chronic 9-10 [place]y of diastolic [place] congestive congestive 00 Me dical heart heart Branch failure failure Chest pain Chest pain Disease Active U nivers 7-07 ity of 00:00: [place] [facility] Obesity Obesity Disease Active Overview: Univ ers 4-17 ICD10 ity of 00:00: Diagnosis 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 Utility Type II or Type II [...] demia) demia) 00:00: Diagnosis [place] 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 Utility Essential Essential Disease Active Uni [...] Known DA Active U [facility] 1[facility]16 [place] 00:00: [address] No Known DA Active U [facility] 05-20 [place] 00:00: [address] NO KNOWN Drug Active Univers ALLERGIE Class ity of S [facility] NO KNOWN Allergy Active [facility] Social History Social Habit Start Date Stop Date Quantity Comments Source Tobacco Comment quit 30 years Univer sity of ago [facility] Alcohol Comment 3 drinks (vodka) Uni versity of nightly [facility] Sex Assigned At Universit y of [facility] Exposure to Unable to assess Univers ity of SARS-CoV-2 [facility] (event) [place] Tobacco use and 2020-05-30 2020-05-30 Never used Universit y of exposure 00:00:00 00:00:00 [facility] Alcohol intake 2020-05-30 2020-05-30 Current drinker Unive rsity of 00:00:00 00:00:00 of alcohol [facility] (finding) [place] Smoking Status Start Date Stop Date Source Never smoker [facility] Medications Ordered Filled Start Stop Current Ordering Indication Dosage Frequency Signature Comments Components Source Medication Medication Date Date Medication? Clinician (SIG) Name Name ASPIRIN 81 0 Yes once daily U nivers MG ORAL 9-16 ity of CHEW 22:57: [address] magnesium 2019-0 Yes 400mg Take 400 Uni vers oxide 9-16 mg by ity of (MAG-OX 22:57: mouth [place] 400) 400 mg 45 daily. Medica l tablet Branch Cyanocobala Yes Place Unive rs min 9-16 under the ity of (VITAMIN 22:57: tongue. [place] B-12) 2,500 45 Medical mcg Subl Branch CALCIUM 2019-0 Yes [facility] CARBONATE/V 9-16 mouth. ity of ITAMIN D3 22:57: [place] (VITAMIN 45 Medical D-3 ORAL) Branch MULTIVITAMI 0 Yes Take by Un audra N 9-16 mouth. ity of W-MINERALS/ 22:57: [place] LUTEIN 45 Medical (CENTRUM Branch SILVER ORAL) ASPIRIN 81 2019-0 Yes once daily U nivers MG ORAL 9-16 ity of CHEW 22:57: [address] Branch magnesium 2020-0 Yes 400mg Take [...] daily. Medical per tablet Branch atorvastati Yes [id number] 20mg Take 1 Univers n 20 mg 9-16 tablet by ity of tablet 00:00: mouth at [place] 00 bedtime. Medical Branch primidone 2019-0 Yes [id number] 50mg Take 1 U nivers 50 mg 9-16 tablet by ity of tablet 00:00: mouth [place] 00 every 12 Medical (twelve) Branch hours. metoprolol 2019-0 Yes [id number] 25mg Take 1 Univers tartrate 25 9-16 tablet by ity of mg tablet 00:00: mouth 2 [place] 00 (two) Medical times Branch daily. sacubitriL- 2020-0 Yes [id number] 1{tbl} Take 1 Univers valsartan 9-16 tablet by ity o f 97-103 mg 00:00: mouth 2 [place] tablet 00 (two) Medical times Branch daily. levoFLOXaci 2019-0 Yes [id number] 500mg Take 1 Univers n 500 mg 9-16 tablet by ity of tablet 00:00: mouth [place] 00 every 24 Medical (twenty-fo Branch ur) hours. acidophilus 2020-0 Yes [id number] 1g Take 1 Univers 100 million 9-16 tablet by ity of cell tablet 00:00: mouth 2 [place] as 00 (two) Medical times Branch daily. atorvastati 2020-0 Yes [id number] 20mg Take 1 Univers n 20 mg 9-16 tablet by ity of tablet 00:00: mouth at [place] 00 bedtime. Medical Branch primidone 2020-0 Yes [id number] 50mg Take 1 U nivers 50 mg 9-16 tablet by ity of tablet 00:00: mouth [place] 00 every 12 Medical (twelve) Branch hours. metoprolol 2020-0 Yes [id number] 25mg Take 1 Univers tartrate 25 9-16 tablet by ity of mg tablet 00:00: mouth 2 [place] 00 (two) Medical times Branch daily. sacubitriL- 2020-0 Yes [id number] 1{tbl} Take 1 Univers valsartan 9-16 tablet by ity o f 97-103 mg 00:00: mouth 2 [place] tablet 00 (two) Medical times Branch daily. levoFLOXaci 2020-0 Yes [id number] 500mg Take 1 Univers n 500 mg 9-16 tablet by ity of tablet 00:00: mouth [place] 00 every 24 Medical (twenty-fo Branch ur) hours. acidophilus 2020-0 Yes [id number] 1g Take 1 Univers 100 million 9-16 tablet by ity of cell tablet 00:00: mouth 2 [place] as 00 (two) Medical times Branch daily. KCL 2020-0 2020- No 20meq 20 mEq, Univers (KLOR-CON 06-03-15 Oral, ONCE ity of M20) tablet 02:30: 01:54 NOW, 1 [place] as 20 mEq 00 :00 dose, [facility] 06/02/20 at Branch 2130, Routine levoFLOXaci 2020-0 Yes 750mg 750 mg, Un audra n 9-14 Oral, ity of (LEVAQUIN) 16:00: Q48H, [place] tablet 750 00 First dose Med ical mg on [facility] Branch 06/02/20 at 1100, Until [...] First dose [place] mg 00 on [facility] 06/01/20 at Branch 2215, Until Discontinu ed, Routine bisacodyL 2019- No 10mg 10 mg, Unive rs (DULCOLAX) 06-02 Rectal, ity o f suppository 03:15: 01:59 QHS, 3 [place] as 10 mg 00 :00 doses, Medical First dose Branch on [place] 06/01/20 at 2215, Last dose on Tue06/03/20 at 2100, Routine epoetin 2019- 2020- No 4000U 4,000 Univers renetta-epbx 06-01 Units, ity of (RETACRIT) 19:45: 19:59 Subcutaneo [place] injection 00 :00 us, ONCE, Medic al 4,000 Units 1 dose, Branc h [place] 06/01/20 at 1445, Routine
team member approving Restricted medication : AKILAH ANDRE ANGELES furosemide 2019- No 40mg 40 mg, IV U nivers (LASIX) 06-01 Push, ity of injection 14:00: 17:48 DAILY, [place] 40 mg 00 :15 First dose Medical (after Branch last modificati on) on [place] 06/01/20 at 0900, Until Discontinu ed, LICO ferrous 2019- 2020- No 325mg 325 mg, Unive rs sulfate 06-01 Oral, BID ity of tablet 325 13:00: 01:14 MEALS, [place] mg 00 :51 First dose Medical on [place] Branch 9/13/20 at 0800, Until Discontinu ed, Routine haloperidol 2020-0 Yes 5mg 5 mg, Slow Univers lactate 06-01 IV Push, ity of (HALDOL) 01:16: QHSPRN, [place] injection 5 44 Starting Medi mecca mg [facility] 05/31/20 at 2016, Until Discontinu ed, Routine, insomnia, psychosis, agitation piperacilli 2020-0 2020- No 2.25g 2.25 g, IV Univers n-tazobacta 06-01 Piggyback, i ty of m (ZOSYN) 00:45: 14:59 Q6H ABX, [place] as 2.25 g/50 00 :52 First dose Medi mecca mL RTU on [facility] Branch 05/31/20 at 1945, Until Discontinu ed, 50 mL
Reas on for Anti-Infec tive: Documented Infection< br>Documen moshe Infection Site: Respirator y
Durat ion of Therapy: 10 days KCL 2020-0 2020- No 40meq 40 mEq, Univers (KLOR-CON 06-01 Oral, ity of M20) tablet 00:45: 01:23 ONCE, 1 [place] 40 mEq 00 :00 dose, [facility] Medical 05/31/20 at Branch 1945, Routine magnesium 2019-0 2020- No 2g 2 g, IV Univ ers sulfate in 06-01 Piggyback, it y of water 2 00:45: 01:23 ONCE, 1 [place] gram/50 mL 00 :00 dose, [facility] Medi mecca (4 %) 05/31/20 at [place] infusion 2 1944, g Routine sodium 2019-0 Yes 125mg 125 mg, IV Univ ers ferric 05-31 Piggyback, ity of gluconate 14:00: DAILY, [place] (FERRLECIT) 00 First dose Me dical 125 mg in on [facility] NaCl 0.9% 05/31/20 at (NS) 100 mL 0900, IV Until piggyback Discontinu ed, 100 mL
Facu lty member approving Restricted medication : HELENA KUMAR sulfur 2020-0 2020- No 5mL 5 mL, Univers hexafluorid 05-30 Intravenou i ty of e microsphr 19:00: 16:30 s, ONCE, 1 [place] (LUMASON) 00 :00 dose, Fri Medic al injection 5 05/30/20 at Br anch mL 1400, Routine
team member approving Restricted medication : VANESSA SHAH vancomycin 2020-0 2020- No 15mg/kg 1,000 mg Univers (VANCOCIN) 05-3014 (rounded ity of 1,000 mg in 17:15: 14:59 from 990 [place] NaCl 0.9% 00 :52 mg = 15 Medical (NS) 250 mL mg/kg ?66 [facility] VIAL-MATE kg), IV IV Piggyback, piggyback [...] on Tue Medical tablet 1 05/30/20 at [facility] h tablet 0800, Until Discontinu ed, Routine
team member approving Restricted medication : MEGADC [...] ity of (vitamin C) 06:15: First dose [place] (VITAMIN C) 00 on Tue Medica l tablet 500 05/30/[address] [facility] mg 0115, Until Discontinu ed, Routine cholecalcif [...] -11 Oral, ity of (TYLENOL) 06:01: Q6HPRN [place] tablet 650 34 Starting Medic al mg Tue Branch 05/30/20 at 0101, Until Discontinu ed, Routine, Temp > 38.5 C ondansetron 2020-0 Yes 4mg 4 mg, Slow Univers (ZOFRAN 9-11 IV Push, ity of (PF)) 06:01: Q6HPRN [place] injection 4 16 Starting Medi [place] mg [...] [place] 60 mg 00 :00 dose, [facility] Medical 05/29/20 at Branch 2215, LICO albuterol 2020- No 8{puff} 8 Puff, U nivers (VENTOLIN) 05-30 Inhalation it y of inhaler 8 01:45: 01:04 , ONCE, 1 [place] Puff 00 :00 dose, [facility] 05/29/20 at Branch 2045, LICO
Is this order for a patient with suspected or confirmed COVID-19 infection? Yes atorvastati 2019- No [id number] 20mg Take 1 Univers n (LIPITOR) 01-27 tablet by it y of 20 mg 00:00: 00:00 mouth at [place] tablet 00 :00 bedtime. Medical Branch Insulin 2020- No [id number] 8U inject 8 U nivers Glargine 01-27 [...] directed ity of (ACCU-CHEK 00:00: [place] WILLIAM) [place] [address] Medical Branch Blood-Gluco Yes Use as [facility] ers se Meter 4-07 directed ity of (ACCU-CHEK 00:00: [place] WILLIAM) [place] [address] Medical Branch EXFORGE 2020- No TAKE 1 Univers 10-320 mg 01-0316 TABLET BY ity of per tablet 00:00: 00:00 MOUTH [place] 00 :00 EVERY DAY Medical Branch Vital Signs Vital Name Observation Time Observation Value Comments Source WEIGHT 2022-02-16 05:00:00 63.957 kg WEIGHT 2022-02-15 05:00:00 64.411 kg WEIGHT 2022-02-14 06:00:00 70.217 kg WEIGHT 2022-02-12 05:24:00 72.439 kg WEIGHT 2022-02-11 05:00:00 72.802 kg WEIGHT 2022-02-08 14:36:00 64.683 kg WEIGHT 2022-02-16 05:00:00 63.957 kg WEIGHT 2022-02-15 05:00:00 64.411 kg WEIGHT 2022-02-14 06:00:00 70.217 kg WEIGHT 2022-02-12 05:24:00 72.439 kg WEIGHT 2022-02-11 05:00:00 72.802 kg WEIGHT 2022-02-08 14:36:00 64.683 kg WEIGHT 2022-01-24 06:00:00 62.642 kg WEIGHT [...] 20:55:00 156 mm[Hg] Univer sity of pressure [facility] Diastolic blood 2020-06-04 20:55:00 85 mm[Hg] Unive rsity of pressure [facility] Respiratory rate 2020-06-04 20:55:00 18 /min Univ ersity of [facility] Oxygen saturation in 2020-06-04 20:55:00 92 /min University of Arterial blood by [facility] Pulse oximetry Branch Heart rate 2020-06-04 20:00:00 67 /min Universi ty of [facility] Body temperature 2020-06-04 20:00:00 36.06 Razia Univ ersity of [facility] Body weight 2020-06-03 06:15:00 65.998 kg Universi ty of [facility] BMI 2020-06-03 06:15:00 24.21 kg/m2 Universi ty of [facility] Body height 2020-05-30 06:15:00 165.1 cm Universi ty of [facility] Systolic blood 2020-06-04 20:55:00 156 mm[Hg] Univer sity of pressure [facility] Diastolic blood 2020-06-04 20:55:00 85 mm[Hg] Unive rsity of pressure [facility] Respiratory rate 2020-06-04 20:55:00 18 /min Univ ersity of [facility] Oxygen saturation in 2020-06-04 20:55:00 92 /min University of Arterial blood by [facility] Pulse oximetry Branch Heart rate 2020-06-04 20:00:00 67 /min Universi ty of [facility] Body temperature 2020-06-04 20:00:00 36.06 Razia Univ ersity of [facility] Body weight 2020-06-03 06:15:00 65.998 kg Universi ty of [facility] BMI 2020-06-03 06:15:00 24.21 kg/m2 Universi ty of [facility] Body height 2020-05-30 06:15:00 165.1 cm Universi ty [facility] Procedures Procedure Date / Time Performing Clinician Source Performed POCT GLUCOSE (AUTOMATED) 2020-06-04 21:56:00 Arben Julien Uni versity [facility] POCT GLUCOSE (AUTOMATED) 2020-06-04 16:48:00 Arben Julien Uni versity of [facility] XR CHEST 1 VW 2020-06-04 13:56:16 Vanessa Shah [facility] POCT GLUCOSE (AUTOMATED) 2020-06-04 12:44:00 Arben Julien Uni versity of [facility] POCT GLUCOSE (AUTOMATED) 2020-06-04 01:32:00 Arben Julien Uni versity of [facility] POCT GLUCOSE (AUTOMATED) 2020-06-03 21:46:00 Arben Julien Uni versity of [facility] POCT GLUCOSE (AUTOMATED) 2020-06-03 16:54:00 Arben Julien Uni versity of [facility] POCT GLUCOSE (AUTOMATED) 2020-06-03 12:50:00 Arben Julien Uni versity of [facility] COMP. METABOLIC PANEL 2020-06-03 11:37:00 [id number] CBC WITH DIFF 2020-06-03 11:36:00 Sukhwinder Hughes [facility] POCT GLUCOSE (AUTOMATED) 2020-06-03 01:18:00 Arben Julien Uni versity of [facility] POCT GLUCOSE (AUTOMATED) 2020-06-02 21:22:00 Arben Julien Uni versity of [facility] FL MODIFIED BARIUM 2020-06-02 19:00:00 Rufus Goodwin [facility] POCT GLUCOSE (AUTOMATED) 2020-06-02 16:59:00 Arben Julien Uni versity of [facility] POCT GLUCOSE (AUTOMATED) 2020-06-02 13:26:00 Arben Julien Uni versity of [place] [facility] MAGNESIUM 2020-06-02 10:40:00 Rufus Goodwin [facility] COMP. METABOLIC PANEL 2020-06-02 10:40:00 Buddy [facility] ([id number]) [facility] CBC WITH DIFF 2020-06-02 10:40:00 Arben Julien [facility] POCT GLUCOSE (AUTOMATED) 2020-06-01 21:51:00 Arben Julien Uni versity of [facility] POCT GLUCOSE (AUTOMATED) 2020-06-01 17:00:00 Arben Julien [facility] BLOOD CULTURE SCREEN 2020-06-01 15:42:00 Rufus Goodwin [facility] BLOOD CULTURE SCREEN 2020-06-01 15:29:00 Rufus Goodwin [facility] POCT GLUCOSE (AUTOMATED) 2020-06-01 13:18:00 Arben Julien [facility] MAGNESIUM 2020-06-01 10:14:00 Rufus Goodwin [facility] COMP. METABOLIC PANEL 2020-06-01 10:14:00 Rufus Goodwin [facility] ([id number]) [facility] ACUTE CARE VENOUS BLOOD 2020-06-01 10:14:00 Arben Julien [facility] CBC WITH DIFF 2020-06-01 10:14:00 Wily [facility] N-TERMINAL PRO-BNP 2020-06-01 10:14:00 Arben Julien [facility] POCT GLUCOSE (AUTOMATED) 2020-06-01 00:42:00 Wily hilda [facility] POCT GLUCOSE (AUTOMATED) 2020-05-31 21:51:00 Arben Julien [facility] AMMONIA, PLASMA 2020-05-31 17:01:00 Rufus Goodwin [facility] POCT GLUCOSE (AUTOMATED) 2020-05-31 16:59:00 Arben Julien [facility] URIC ACID 2020-05-31 08:32:00 Wily [facility] MAGNESIUM 2020-05-31 08:32:00 Wily [facility] TROPONIN I 2020-05-31 08:32:00 Wily hilda [facility] COMP. METABOLIC PANEL 2020-05-31 08:32:00 Wily hilda [facility] ([id number]) [facility] CBC WITH DIFF 2020-05-31 08:32:00 Wily [facility] N-TERMINAL PRO-BNP 2020-05-31 08:32:00 Wily hilda [facility] POCT GLUCOSE (AUTOMATED) 2020-05-31 00:32:00 Arben Julien [facility] POCT GLUCOSE (AUTOMATED) 2020-05-30 20:44:00 Wily hilda [facility] POCT GLUCOSE (AUTOMATED) 2020-05-30 17:04:00 Arben Julien [facility] TROPONIN I 2020-05-30 16:25:00 Wily hilda [facility] ECHO ROUTINE W/DOPPLER 2020-05-30 16:08:22 Arben Julien [facility] POCT GLUCOSE (AUTOMATED) 2020-05-30 13:56:00 Arben Julien [facility] CT THORAX WO CONTRAST 2020-05-30 10:26:42 Arben Julien [facility] SEDIMENTATION RATE 2020-05-30 09:51:00 Wily hilda [facility] CBC WITH DIFF 2020-05-30 09:51:00 Wily [facility] URIC ACID 2020-05-30 08:34:00 Wily [facility] MAGNESIUM 2020-05-30 08:34:00 Wily [facility] CORTISOL AM 2020-05-30 08:34:00 Wily [facility] TROPONIN I 2020-05-30 08:34:00 Wily [facility] COMP. METABOLIC PANEL 2020-05-30 08:34:00 Wily hilda [facility] ([id number]) [facility] IRON PANEL 2020-05-30 08:34:00 Wily [facility] N-TERMINAL PRO-BNP 2020-05-30 08:34:00 Wily hilda [facility] LEGIONELLA URINARY 2020-05-30 08:29:00 Wily hilda [facility] ANTIGEN TST [facility] SODIUM, URINE RANDOM 2020-05-30 08:28:00 Wily hilda [facility] PROTEIN CREAT RATIO 2020-05-30 08:28:[address] [facility] URINE RANDOM [facility] PNEUMOCOCCAL ANTIGEN 2020-05-30 08:27:00 Arben Julien [facility] OSMOLALITY URINE 2020-05-30 08:25:00 Wily hilda [facility] UREA NITROGEN, URINE 2020-05-30 08:25:00 Arben Julien [facility] RANDOM [facility] URINE CULTURE 2020-05-30 08:24:00 Arben Julien [facility] OSMOLALITY SERUM 2020-05-30 07:08:00 Wily hilda [facility] VITAMIN B12, LEVEL 2020-05-30 07:08:00 Arben Julien [facility] FOLATE 2020-05-30 07:08:00 Arben Julien [facility] PROTHROMBIN TIME / INR 2020-05-30 07:08:00 Arben Julien [facility] MYCOPLASMA PNEUMONIAE 2020-05-30 07:08:00 Arben Julien [facility] ANTIBODY, IGM [facility] VITAMIN D, 25-OH 2020-05-30 07:08:00 Arben Julien [facility] PROCALCITONIN 2020-05-30 07:08:00 Arben Julien [facility] BLOOD CULTURE SCREEN 2020-05-30 07:07:00 Arben Julien [facility] BLOOD CULTURE WORKUP 2020-05-30 07:07:00 Wily hilda [facility] BLOOD CULTURE WORKUP 2020-05-30 07:07:00 Arben Julien [facility] GRAM POSITIVE BLOOD 2020-05-30 07:07:00 [facility] PROBE-AEROBIC RESPIRATORY PANEL BY PCR 2020-05-30 05:20:00 Arben Julien [facility] COVID-19 (PCR MOLECULAR 2020-05-30 05:20:00 Arben Julien [facility] TESTING) [facility] EXTERNAL PROVIDER 2020-05-30 05:01:00 Doctor Unassigned, No Univ [facility] RECORDS Name Medical Branch URINALYSIS 2020-05-30 03:39:00 Trice Kraft [facility] XR CHEST 1 VW 2020-05-30 01:45:07 Trice Kraft [facility] CT HEAD WO CONTRAST 2020-05-30 01:34:53 Trice Kraft [facility] EKG-12 LEAD 2020-05-30 01:08:00 Trice Kraft [facility] AC ABG + LACTIC ACID 2020-05-30 01:06:00 Trice Kraft [facility] POCT GLUCOSE(AGE 2020-05-30 01:04:00 Trice Kraft [facility] >30DAYS) [facility] POCT GLUCOSE (AUTOMATED) 2020-05-30 01:03:00 [facility] PHOSPHORUS 2020-05-30 00:59:00 Wily [facility] CREATINE KINASE 2020-05-30 00:59:00 Wily [facility] URIC ACID 2020-05-30 00:59:00 Wily [facility] MAGNESIUM 2020-05-30 00:59:00 Wily [facility] FERRITIN SERUM 2020-05-30 00:59:00 Wily [facility] TROPONIN I 2020-05-30 00:59:00 Trice Kraft [facility] THYROID STIMULATING 2020-05-30 00:59:[address] [facility] HORMONE [facility] COMP. METABOLIC PANEL 2020-05-30 00:59:00 Trice Kraft [facility] ([id number]) [facility] LIPID PANEL 2020-05-30 00:59:00 Wily hilda [facility] ([id number])(TOTAL Medical Branch CHOLESTEROL, TRIGLYCERIDES, HDL) CBC WITH DIFF 2020-05-30 00:59:00 Trice Kraft [facility] GLYCOSYLATED HEMOGLOBIN 2020-05-30 00:59:00 Arben Julien [facility] (A1C) [facility] N-TERMINAL PRO-BNP 2020-05-30 00:59:00 Trice Kraft [facility] COVID-19 (ID NOW RAPID 2020-05-30 00:59:00 Trice Kraft [facility] TESTING) Medical Branch EKG-12 LEAD 2020-05-30 00:39:36 Trice Kraft [facility] NOTICE OF PRIVACY 2020-05-29 23:34:11 Doctor Unassigned, No [facility] PRACTICES Name Medical Branch CONSENT/REFUSAL FOR 2020-05-29 23:33:17 Doctor Unassigned, No [facility] DIAGNOSIS AND TREATMENT Name Medical Branch Encounters Start End Encounter Admission Attending Care Care Encounter Source Date/Time Date/Time Type Type Clinicians Facility Department ID 2022-01-27 Inpatient ALONSO HU [facility] Surgery [id number] [facility] 14:58:54 2022-02-08 2022-02-16 Inpatient ALONSO HU [facility] Surgery [id number] [facility] 14:10:00 16:01:00 2022-02-09 2022-02-09 Outpatient [facility] BC [id number] [facility] 00:00:00 23:59:00 [facility] 2022-02-08 2022-02-08 Outpatient BCM BCM [id number] [facility] 14:10:00 23:59:00 [facility] 2022-02-08 2022-02-08 Outpatient [facility] [id number] [facility] 00:00:00 00:00:00 2022-01-20 2022-01-25 Inpatient ER [facility] [id number] [facility] 01:13:00 14:52:00 [facility] Med 2022-01-20 2022-01-20 Outpatient BCM BCM [id number] [facility] 00:00:00 23:59:00 [facility] Medicin e 2020-06-05 2020-06-05 Transition Mary Kay Cerna [id number] Univers 00:00:00 00:00:00 of Care Cody Stover [id number] ity of [place] [id number] Keri katz [id number] [address] 2020-06-05 2020-06-05 Transition Mary Kay Cerna [id number] 00:00:00 00:00:00 of Care Cody Stover [id number] [place] [id number] 2020-05-29 2020-06-04 [facility] [id number] Univers 18:50:00 17:57:00 Encounter David Julienhilda [place] [id number] [id number] [facility] [id number] [place] [id number] Branch 2020-05-29 2020-06-04 [facility] [id number] 18:50:00 17:57:00 Encounter Wily Arben [place] [id number] [place] [id number] [place] [id number] 2020-05-29 2020-05-29 Emergency X [facility] ERT [id number] [employer] 18:28:00 18:28:00 [facility] Results Test Description Test Time Test Comments Results Result Comments Source PHOSPHORUS 2022-02-16 05:32:27 Test Item Value Reference Range Interpretation Comme nts PHOSPHORUS (BEAKER) (test code = 604) 1.9 mg/dL 2.3-4.7 L Fire Chief Deputy ID - NOLA [id number] 05:32:26 Test Item Value Reference Range Interpretation Comments MAGNESIUM (BEAKER) (test code = 1.6 mg/dL 1.6-2.6 627) Fire Chief Deputy ID - PIKYLER LBASIC METABOLIC [id number] 05:32:25 Test Item Value Reference Range Interpretation Comments SODIUM (BEAKER) 132 meq/L 136-145 L (test code = 381) POTASSIUM (BEAKER) 3.6 meq/L 3.5-5.1 (test code = 379) CHLORIDE (BEAKER) 97 meq/L 98-107 L (test code = 382) CO2 (BEAKER) (test 25 meq/L 22-29 code = 355) BLOOD UREA NITROGEN 26 mg/dL 7-21 H (BEAKER) (test code = 354) CREATININE (BEAKER) 1.85 mg/dL 0.57-1.25 H (test code = 358) GLUCOSE RANDOM 188 mg/dL 70-105 H (BEAKER) (test code = 652) CALCIUM (BEAKER) 9.0 mg/dL 8.4-10.2 (test code = 697) EGFR (BEAKER) (test 35 mL/min/1.73 ESTIMA MOSHE GFR IS code = 1092) sq m NOT ACCURATE CREATININE CLEARANCE IN PREDICTING GLOMERULAR FILTRATION RATE . ESTIMATED GFR I S NOT APPLICABLE FOR DIALYSIS PATIEN TS. Fire Chief Deputy ID - NOLA LCBC (HEMOGRAM ONLY)2022-02-16 05:05:53 Test Item Value Reference Range Interpretation Comments WHITE BLOOD CELL COUNT (BEAKER) 7.4 K/ L 3.5-10.5 (test code = 775) RED BLOOD CELL COUNT (BEAKER) 3.38 M/ L 4.63-6.08 L (test code = 761) HEMOGLOBIN (BEAKER) (test code = 10.5 GM/DL 13.7-17.5 L 410) HEMATOCRIT (BEAKER) (test code = 30.5 % 40.1-51.0 L 411) MEAN CORPUSCULAR VOLUME (BEAKER) 90.2 fL 79.0-92.2 (test code = 753) MEAN CORPUSCULAR HEMOGLOBIN 31.1 pg 25.7-32.2 (BEAKER) (test code = 751) MEAN CORPUSCULAR HEMOGLOBIN CONC 34.4 GM/DL 32.3-36.5 (BEAKER) (test code = 752) RED CELL DISTRIBUTION WIDTH 15.0 % 11.6-14.4 H (BEAKER) (test code = 412) PLATELET COUNT (BEAKER) (test 197 K/CU MM 150-450 code = 756) MEAN PLATELET VOLUME (BEAKER) 9.4 fL 9.4-12.4 (test code = 754) NUCLEATED RED BLOOD CELLS 0 /100 WBC 0-0 (BEAKER) (test code = 413) [id number] 05:55:44 Test Item Value Reference Range Interpretation Comments MAGNESIUM (BEAKER) (test code = 1.5 mg/dL 1.6-2.6 L 627) Fire Chief Deputy ID Junie [id number] 05:55:44 Test Item Value Reference Range Interpretation Comments PHOSPHORUS (BEAKER) (test code = 1.7 mg/dL 2.3-4.7 L 604) Fire Chief Deputy AKOSUA FAIRCHILD WBASIC METABOLIC [id number] 05:55:43 Test Item Value Reference Range Interpretation Comments SODIUM (BEAKER) 131 meq/L 136-145 L (test code = 381) POTASSIUM (BEAKER) 3.2 meq/L 3.5-5.1 L (test code = 379) CHLORIDE (BEAKER) 99 meq/L 98-107 (test code = 382) CO2 (BEAKER) (test 25 meq/L 22-29 code = 355) BLOOD UREA NITROGEN 26 mg/dL 7-21 H (BEAKER) (test code = 354) CREATININE (BEAKER) 1.76 mg/dL 0.57-1.25 H (test code = 358) GLUCOSE RANDOM 217 mg/dL 70-105 H (BEAKER) (test code = 652) CALCIUM (BEAKER) 8.6 mg/dL 8.4-10.2 (test code = 697) EGFR (BEAKER) (test 38 mL/min/1.73 ESTIMA MOSHE GFR IS code = 1092) sq m NOT ACCURATE CREATININE CLEARANCE IN PREDICTING GLOMERULAR FILTRATION RATE . ESTIMATED GFR I S NOT APPLICABLE FOR DIALYSIS PATIEN TS. Fire Chief Deputy AKOSUA FAIRCHILD WCBC (HEMOGRAM ONLY)2022-02-15 05:21:42 Test Item Value Reference Range Interpretation Comments WHITE BLOOD CELL COUNT (BEAKER) 6.0 K/ L 3.5-10.5 (test code = 775) RED BLOOD CELL COUNT (BEAKER) 3.08 M/ L 4.63-6.08 L (test code = 761) HEMOGLOBIN (BEAKER) (test code = 9.7 GM/DL 13.7-17.5 L 410) HEMATOCRIT (BEAKER) (test code = 27.9 % 40.1-51.0 L 411) MEAN CORPUSCULAR VOLUME (BEAKER) 90.6 fL 79.0-92.2 (test code = 753) MEAN CORPUSCULAR HEMOGLOBIN 31.5 pg 25.7-32.2 (BEAKER) (test code = 751) MEAN CORPUSCULAR HEMOGLOBIN CONC 34.8 GM/DL 32.3-36.5 (BEAKER) (test code = 752) RED CELL DISTRIBUTION WIDTH 14.8 % 11.6-14.4 H (BEAKER) (test code = 412) PLATELET COUNT (BEAKER) (test 151 K/CU MM 150-450 code = 756) MEAN PLATELET VOLUME (BEAKER) 9.3 fL 9.4-12.4 L (test code = 754) NUCLEATED RED BLOOD CELLS 0 /100 WBC 0-0 (BEAKER) (test code = 413) [id number] 05:25:33 Test Item Value Reference Range Interpretation Comments PHOSPHORUS (BEAKER) (test code = 2.0 mg/dL 2.3-4.7 L 604) Fire Chief Deputy ID Junie FAIRCHILD WBASIC METABOLIC [id number] 05:25:32 Test Item Value Reference Range Interpretation Comments SODIUM (BEAKER) 132 meq/L 136-145 L (test code = 381) POTASSIUM (BEAKER) 3.8 meq/L 3.5-5.1 (test code = 379) CHLORIDE (BEAKER) 97 meq/L 98-107 L (test code = 382) CO2 (BEAKER) (test 28 meq/L 22-29 code = 355) BLOOD UREA NITROGEN 20 mg/dL 7-21 (BEAKER) (test code = 354) CREATININE (BEAKER) 1.69 mg/dL 0.57-1.25 H (test code = 358) GLUCOSE RANDOM 164 mg/dL 70-105 H (BEAKER) (test code = 652) CALCIUM (BEAKER) 8.8 mg/dL 8.4-10.2 (test code = 697) EGFR (BEAKER) (test 39 mL/min/1.73 ESTIMA MOSHE GFR IS code = 1092) sq m NOT ACCURATE CREATININE CLEARANCE IN PREDICTING GLOMERULAR FILTRATION RATE . ESTIMATED GFR I S NOT APPLICABLE FOR DIALYSIS PATIEN TS. Fire Chief Deputy ID Junie FAIRCHILD [id number] 05:25:32 Test Item Value Reference Range Interpretation Comments MAGNESIUM (BEAKER) (test code = 1.4 mg/dL 1.6-2.6 L 627) Fire Chief Deputy ID Junie FAIRCHILD WCBC (HEMOGRAM ONLY)2022-02-14 04:52:12 Test Item Value Reference Range Interpretation Comments WHITE BLOOD CELL COUNT (BEAKER) 7.5 K/ L 3.5-10.5 (test code = 775) RED BLOOD CELL COUNT (BEAKER) 3.48 M/ L 4.63-6.08 L (test code = 761) HEMOGLOBIN (BEAKER) (test code = 10.6 GM/DL 13.7-17.5 L 410) HEMATOCRIT (BEAKER) (test code = 32.1 % 40.1-51.0 L 411) MEAN CORPUSCULAR VOLUME (BEAKER) 92.2 fL 79.0-92.2 (test code = 753) MEAN CORPUSCULAR HEMOGLOBIN 30.5 pg 25.7-32.2 (BEAKER) (test code = 751) MEAN CORPUSCULAR HEMOGLOBIN CONC 33.0 GM/DL 32.3-36.5 (BEAKER) (test code = 752) RED CELL DISTRIBUTION WIDTH 14.7 % 11.6-14.4 H (BEAKER) (test code = 412) PLATELET COUNT (BEAKER) (test 190 K/CU MM 150-450 code = 756) MEAN PLATELET VOLUME (BEAKER) 9.7 fL 9.4-12.4 (test code = 754) NUCLEATED RED BLOOD CELLS 0 /100 WBC 0-0 (BEAKER) (test code = 413) HEPATIC FUNCTION [id number] 08:20:57 Test Item Value Reference Range Interpretation Comments TOTAL PROTEIN (BEAKER) (test code = 5.2 gm/dL 6.0-8.3 L 770) ALBUMIN (BEAKER) (test code = 1145) 2.8 g/dL 3.5-5.0 L BILIRUBIN TOTAL (BEAKER) (test code 1.0 mg/dL 0.2-1.2 = 377) BILIRUBIN DIRECT (BEAKER) (test 0.5 mg/dL 0.1-0.5 code = 706) ALKALINE PHOSPHATASE (BEAKER) (test 76 U/L 40-150 code = 346) AST (SGOT) (BEAKER) (test code = 30 U/L 5-34 353) ALT (SGPT) (BEAKER) (test code = 28 U/L 6-55 347) Fire Chief Deputy ID Junie CERVANTES [id number] 07:17:48 Test Item Value Reference Range Interpretation Comments PHOSPHORUS (BEAKER) (test code = 2.2 mg/dL 2.3-4.7 L 604) Fire Chief Deputy ID - SHANITA MBASIC METABOLIC [id number] 07:17:47 Test Item Value Reference Range Interpretation Comments SODIUM (BEAKER) 129 meq/L 136-145 L (test code = 381) POTASSIUM (BEAKER) 4.0 meq/L 3.5-5.1 (test code = 379) CHLORIDE (BEAKER) 100 meq/L 98-107 (test code = 382) CO2 (BEAKER) (test 21 meq/L 22-29 L code = 355) BLOOD UREA NITROGEN 21 mg/dL 7-21 (BEAKER) (test code = 354) CREATININE (BEAKER) 1.76 mg/dL 0.57-1.25 H (test code = 358) GLUCOSE RANDOM 144 mg/dL 70-105 H (BEAKER) (test code = 652) CALCIUM (BEAKER) 8.5 mg/dL 8.4-10.2 (test code = 697) EGFR (BEAKER) (test 38 mL/min/1.73 ESTIMA MOSHE GFR IS code = 1092) sq m NOT ACCURATE CREATININE CLEARANCE IN PREDICTING GLOMERULAR FILTRATION RATE . ESTIMATED GFR I S NOT APPLICABLE FOR DIALYSIS PATIEN TS. Fire Chief Deputy ID - SHANITA [id number] 07:17:47 Test Item Value Reference Range Interpretation Comments MAGNESIUM (BEAKER) (test code = 1.6 mg/dL 1.6-2.6 627) Fire Chief Deputy ID Junie DIEHL MCBC (HEMOGRAM ONLY)2022-02-13 06:47:08 Test Item Value Reference Range Interpretation Comments WHITE BLOOD CELL COUNT (BEAKER) 7.5 K/ L 3.5-10.5 (test code = 775) RED BLOOD CELL COUNT (BEAKER) 3.15 M/ L 4.63-6.08 L (test code = 761) HEMOGLOBIN (BEAKER) (test code = 10.0 GM/DL 13.7-17.5 L 410) HEMATOCRIT (BEAKER) (test code = 28.7 % 40.1-51.0 L 411) MEAN CORPUSCULAR VOLUME (BEAKER) 91.1 fL 79.0-92.2 (test code = 753) MEAN CORPUSCULAR HEMOGLOBIN 31.7 pg 25.7-32.2 (BEAKER) (test code = 751) MEAN CORPUSCULAR HEMOGLOBIN CONC 34.8 GM/DL 32.3-36.5 (BEAKER) (test code = 752) RED CELL DISTRIBUTION WIDTH 15.0 % 11.6-14.4 H (BEAKER) (test code = 412) PLATELET COUNT (BEAKER) (test 155 K/CU MM 150-450 code = 756) MEAN PLATELET VOLUME (BEAKER) 9.7 fL 9.4-12.4 (test code = 754) NUCLEATED RED BLOOD CELLS 0 /100 WBC 0-0 (BEAKER) (test code = 413) BASIC METABOLIC [id number] 18:14:02 Test Item Value Reference Range Interpretation Comments SODIUM (BEAKER) 129 meq/L 136-145 L (test code = 381) POTASSIUM (BEAKER) 3.9 meq/L 3.5-5.1 (test code = 379) CHLORIDE (BEAKER) 98 meq/L 98-107 (test code = 382) CO2 (BEAKER) (test 26 meq/L 22-29 code = 355) BLOOD UREA NITROGEN 21 mg/dL 7-21 (BEAKER) (test code = 354) CREATININE (BEAKER) 1.71 mg/dL 0.57-1.25 H (test code = 358) GLUCOSE RANDOM 179 mg/dL 70-105 H (BEAKER) (test code = 652) CALCIUM (BEAKER) 9.0 mg/dL 8.4-10.2 (test code = 697) EGFR (BEAKER) (test 39 mL/min/1.73 ESTIMA MOSHE GFR IS code = 1092) sq m NOT ACCURATE CREATININE CLEARANCE IN PREDICTING GLOMERULAR FILTRATION RATE . ESTIMATED GFR I S NOT APPLICABLE FOR DIALYSIS PATIEN TS. Fire Chief Deputy ID - [id number] 07:28:46 Test Item Value Reference Range Interpretation Comments PHOSPHORUS (BEAKER) (test code = 2.8 mg/dL 2.3-4.7 604) Fire Chief Deputy ID - DBBASIC METABOLIC [id number] 07:28:45 Test Item Value Reference Range Interpretation Comments SODIUM (BEAKER) 131 meq/L 136-145 L (test code = 381) POTASSIUM (BEAKER) 3.7 meq/L 3.5-5.1 (test code = 379) CHLORIDE (BEAKER) 102 meq/L 98-107 (test code = 382) CO2 (BEAKER) (test 24 meq/L 22-29 code = 355) BLOOD UREA NITROGEN 22 mg/dL 7-21 H (BEAKER) (test code = 354) CREATININE (BEAKER) 1.77 mg/dL 0.57-1.25 H (test code = 358) GLUCOSE RANDOM 151 mg/dL 70-105 H (BEAKER) (test code = 652) CALCIUM (BEAKER) 8.5 mg/dL 8.4-10.2 (test code = 697) EGFR (BEAKER) (test 37 mL/min/1.73 ESTIMA MOSHE GFR IS code = 1092) sq m NOT ACCURATE CREATININE CLEARANCE IN PREDICTING GLOMERULAR FILTRATION RATE . ESTIMATED GFR I S NOT APPLICABLE FOR DIALYSIS PATIEN TS. Fire Chief Deputy ID - [id number] 07:28:45 Test Item Value Reference Range Interpretation Comments MAGNESIUM (BEAKER) (test code = 1.5 mg/dL 1.6-2.6 L 627) Fire Chief Deputy ID - DBCBC (HEMOGRAM ONLY)2022-02-12 07:08:20 Test Item Value Reference Range Interpretation Comments WHITE BLOOD CELL COUNT (BEAKER) 8.1 K/ L 3.5-10.5 (test code = 775) RED BLOOD CELL COUNT (BEAKER) 2.86 M/ L 4.63-6.08 L (test code = 761) HEMOGLOBIN (BEAKER) (test code = 8.9 GM/DL 13.7-17.5 L 410) HEMATOCRIT (BEAKER) (test code = 26.5 % 40.1-51.0 L 411) MEAN CORPUSCULAR VOLUME (BEAKER) 92.7 fL 79.0-92.2 H (test code = 753) MEAN CORPUSCULAR HEMOGLOBIN 31.1 pg 25.7-32.2 (BEAKER) (test code = 751) MEAN CORPUSCULAR HEMOGLOBIN CONC 33.6 GM/DL 32.3-36.5 (BEAKER) (test code = 752) RED CELL DISTRIBUTION WIDTH 14.9 % 11.6-14.4 H (BEAKER) (test code = 412) PLATELET COUNT (BEAKER) (test 147 K/CU MM 150-450 L code = 756) MEAN PLATELET VOLUME (BEAKER) 9.5 fL 9.4-12.4 (test code = 754) NUCLEATED RED BLOOD CELLS 0 /100 WBC 0-0 (BEAKER) (test code = 413) [id number] 06:24:12 Test Item Value Reference Range Interpretation Comments MAGNESIUM (BEAKER) (test code = 1.8 mg/dL 1.6-2.6 627) Fire Chief Deputy ID - [id number] 06:24:12 Test Item Value Reference Range Interpretation Comments PHOSPHORUS (BEAKER) (test code = 3.3 mg/dL 2.3-4.7 604) Fire Chief Deputy ID - BSBASIC METABOLIC [id number] 06:24:11 Test Item Value Reference Range Interpretation Comments SODIUM (BEAKER) 134 meq/L 136-145 L (test code = 381) POTASSIUM (BEAKER) 4.0 meq/L 3.5-5.1 (test code = 379) CHLORIDE (BEAKER) 107 meq/L 98-107 (test code = 382) CO2 (BEAKER) (test 20 meq/L 22-29 L code = 355) BLOOD UREA NITROGEN 18 mg/dL 7-21 (BEAKER) (test code = 354) CREATININE (BEAKER) 1.79 mg/dL 0.57-1.25 H (test code = 358) GLUCOSE RANDOM 120 mg/dL 70-105 H (BEAKER) (test code = 652) CALCIUM (BEAKER) 9.0 mg/dL 8.4-10.2 (test code = 697) EGFR (BEAKER) (test 37 mL/min/1.73 ESTIMA MOSHE GFR IS code = 1092) sq m NOT ACCURATE CREATININE CLEARANCE IN PREDICTING GLOMERULAR FILTRATION RATE . ESTIMATED GFR I S NOT APPLICABLE FOR DIALYSIS PATIEN TS. Fire Chief Deputy ID - BSCBC (HEMOGRAM ONLY)2022-02-11 06:01:14 Test Item Value Reference Range Interpretation Comments WHITE BLOOD CELL COUNT (BEAKER) 9.2 K/ L 3.5-10.5 (test code = 775) RED BLOOD CELL COUNT (BEAKER) 2.69 M/ L 4.63-6.08 L (test code = 761) HEMOGLOBIN (BEAKER) (test code = 8.5 GM/DL 13.7-17.5 L 410) HEMATOCRIT (BEAKER) (test code = 25.1 % 40.1-51.0 L 411) MEAN CORPUSCULAR VOLUME (BEAKER) 93.3 fL 79.0-92.2 H (test code = 753) MEAN CORPUSCULAR HEMOGLOBIN 31.6 pg 25.7-32.2 (BEAKER) (test code = 751) MEAN CORPUSCULAR HEMOGLOBIN CONC 33.9 GM/DL 32.3-36.5 (BEAKER) (test code = 752) RED CELL DISTRIBUTION WIDTH 15.3 % 11.6-14.4 H (BEAKER) (test code = 412) PLATELET COUNT (BEAKER) (test 112 K/CU MM 150-450 L code = 756) MEAN PLATELET VOLUME (BEAKER) 10.1 fL 9.4-12.4 (test code = 754) NUCLEATED RED BLOOD CELLS 0 /100 WBC 0-0 (BEAKER) (test code = 413) POCT-GLUCOSE [id number] 17:35:30 Test Item Value Reference Range Interpretation Comments POC-GLUCOSE METER 157 mg/dL 70-110 H : TESTED A T [facility] 6720 (BEAKER) ([facility] [id number]: Fire Chief Deputy/Techni diaz ID = [id number] for Cesar Torres (CELLAVISION MANUAL DIFF)2022-02-10 13:48:38 Test Item Value Reference Range Interpretation Comments NEUTROPHILS - REL 96 % (CELLAVISION)(BEAKER) (test code = 2816) LYMPHOCYTES - REL 3 % (CELLAVISION)(BEAKER) (test code = 2817) MONOCYTES - REL 1 % (CELLAVISION)(BEAKER) (test code = 2818) NEUTROPHILS - ABS 10.18 K/ul 1.78-5.38 H (CELLAVISION)(BEAKER) (test code = 2830) LYMPHOCYTES - ABS 0.32 K/ul 1.32-3.57 L (CELLAVISION)(BEAKER) (test code = 2831) MONOCYTES - ABS 0.11 K/uL 0.30-0.82 L (CELLAVISION)(BEAKER) (test code = 2832) TOTAL COUNTED (BEAKER) (test code 100 = 1351) RBC MORPHOLOGY (BEAKER) (test code Normal = 762) WBC MORPHOLOGY (BEAKER) (test code Normal = 487) PLT MORPHOLOGY (BEAKER) (test code Normal = 486) ARTIFACT (CELLAVISION)(BEAKER) Present (test code = 3432) PLATELET CONCENTRATION Decreased (CELLAVISION)(BEAKER) (test code = 3438) Fire Chief Deputy ID - Roseann OverholtUser comments: Slide comments:CBC W/PLT COUNT & AUTO [id number] 13:48:37 Test Item Value Reference Range Interpretation Comments WHITE BLOOD CELL COUNT (BEAKER) 10.6 K/ L 3.5-10.5 H (test code = 775) RED BLOOD CELL COUNT (BEAKER) 2.84 M/ L 4.63-6.08 L (test code = 761) HEMOGLOBIN (BEAKER) (test code = 8.8 GM/DL 13.7-17.5 L 410) HEMATOCRIT (BEAKER) (test code = 26.2 % 40.1-51.0 L 411) MEAN CORPUSCULAR VOLUME (BEAKER) 92.3 fL 79.0-92.2 H (test code = 753) MEAN CORPUSCULAR HEMOGLOBIN 31.0 pg 25.7-32.2 (BEAKER) (test code = 751) MEAN CORPUSCULAR HEMOGLOBIN CONC 33.6 GM/DL 32.3-36.5 (BEAKER) (test code = 752) RED CELL DISTRIBUTION WIDTH 15.0 % 11.6-14.4 H (BEAKER) (test code = 412) PLATELET COUNT (BEAKER) (test 109 K/CU MM 150-450 L code = 756) MEAN PLATELET VOLUME (BEAKER) 9.8 fL 9.4-12.4 (test code = 754) NUCLEATED RED BLOOD CELLS 0 /100 WBC 0-0 (BEAKER) (test code = 413) [id number] 13:31:32 Test Item Value Reference Range Interpretation Comments MAGNESIUM (BEAKER) (test code = 1.9 mg/dL 1.6-2.6 627) Fire Chief Deputy ID - [id number] 13:31:32 Test Item Value Reference Range Interpretation Comments PHOSPHORUS (BEAKER) (test code = 3.4 mg/dL 2.3-4.7 604) Fire Chief Deputy ID - ADMINBASIC METABOLIC [id number] 13:31:31 Test Item Value Reference Range Interpretation Comments SODIUM (BEAKER) 136 meq/L 136-145 (test code = 381) POTASSIUM (BEAKER) 4.3 meq/L 3.5-5.1 (test code = 379) CHLORIDE (BEAKER) 108 meq/L 98-107 H (test code = 382) CO2 (BEAKER) (test 22 meq/L 22-29 code = 355) BLOOD UREA NITROGEN 18 mg/dL 7-21 (BEAKER) (test code = 354) CREATININE (BEAKER) 1.80 mg/dL 0.57-1.25 H (test code = 358) GLUCOSE RANDOM 236 mg/dL 70-105 H (BEAKER) (test code = 652) CALCIUM (BEAKER) 9.3 mg/dL 8.4-10.2 (test code = 697) EGFR (BEAKER) (test 37 mL/min/1.73 ESTIMA MOSHE GFR IS code = 1092) sq m NOT ACCURATE CREATININE CLEARANCE IN PREDICTING GLOMERULAR FILTRATION RATE . ESTIMATED GFR I S NOT APPLICABLE FOR DIALYSIS PATIEN TS. Fire Chief Deputy ID - ADMINLACTIC ACID, [id number] 13:24:59 Test Item Value Reference Range Interpretation Comments LACTATE BLOOD ARTERIAL (2) 1.3 mmol/L 0.5-2.2 (BEAKER) (test code = 2874) Fire Chief Deputy ID - ADMINBLOOD GAS, [id number] 13:17:20 Test Item Value Reference Range Interpretation Comments PH ARTERIAL (BEAKER) (test code = 7.43 7.35-7.45 383) PCO2 ARTERIAL (BEAKER) (test code 30 mm Hg 35-45 L = 384) PO2 ARTERIAL (BEAKER) (test code 150 mm Hg 80-90 H = 385) O2 SATURATION ARTERIAL (BEAKER) 99.0 % 96.0-97.0 H (test code = 386) HCO3 ARTERIAL (BEAKER) (test code 19 mmol/L 21-29 L = 388) BASE EXCESS ARTERIAL (BEAKER) -4.5 mmol/L -2.0-3.0 L (test code = 387) PATIENT TEMPERATURE (BEAKER) 36.8 (test code = 1818) FIO2 (BEAKER) (test code = 1819) 21.0 POCT-GLUCOSE [id number] 12:17:28 Test Item Value Reference Range Interpretation Comments POC-GLUCOSE METER 212 mg/dL 70-110 H : TESTED A T [facility] 6720 (BEAKER) (test code = [facility], 1538) [address]: Fire Chief Deputy/Techni diaz ID = [id number] for Po tts, Laly MISCELLANEOUS LAB [id number] 09:24:20 Test Item Value Reference Range Interpretation Comments SCAN RESULT (test code = See scanned report. [id number]) See scanned reportPOCT-GLUCOSE [id number] 07:22:09 Test Item Value Reference Range Interpretation Comments POC-GLUCOSE METER 102 mg/dL 70-110 : TESTED A T [facility] 6720 (BEAKER) (test code = [facility], 1538) [address]: Fire Chief Deputy/Techni diaz ID = [id number] for Po tts, Laly POCT-GLUCOSE [id number] 06:34:44 Test Item Value Reference Range Interpretation Comments POC-GLUCOSE METER 85 mg/dL 70-110 : TESTED A T [facility] 6720 (BEAKER) (test code = [facility], 1538) [address]: Fire Chief Deputy/Techni diaz ID = [id number] for NGUY EN, DUNG [id number] 04:15:39 Test Item Value Reference Range Interpretation Comments MAGNESIUM (BEAKER) (test code = 2.0 mg/dL 1.6-2.6 627) Fire Chief Deputy ID - SHANITA [id number] 04:15:39 Test Item Value Reference Range Interpretation Comments PHOSPHORUS (BEAKER) (test code = 3.3 mg/dL 2.3-4.7 604) Fire Chief Deputy ID - SHANITA MBASIC METABOLIC [id number] 04:15:38 Test Item Value Reference Range Interpretation Comments SODIUM (BEAKER) 139 meq/L 136-145 (test code = 381) POTASSIUM (BEAKER) 4.1 meq/L 3.5-5.1 (test code = 379) CHLORIDE (BEAKER) 110 meq/L 98-107 H (test code = 382) CO2 (BEAKER) (test 23 meq/L 22-29 code = 355) BLOOD UREA NITROGEN 19 mg/dL 7-21 (BEAKER) (test code = 354) CREATININE (BEAKER) 1.77 mg/dL 0.57-1.25 H (test code = 358) GLUCOSE RANDOM 135 mg/dL 70-105 H (BEAKER) (test code = 652) CALCIUM (BEAKER) 8.8 mg/dL 8.4-10.2 (test code = 697) EGFR (BEAKER) (test 37 mL/min/1.73 ESTIMA MOSHE GFR IS code = 1092) sq m NOT ACCURATE CREATININE CLEARANCE IN PREDICTING GLOMERULAR FILTRATION RATE . ESTIMATED GFR I S NOT APPLICABLE FOR DIALYSIS PATIEN TS. Fire Chief Deputy ID - SHANITA MLACTIC ACID, [id number] 04:05:11 Test Item Value Reference Range Interpretation Comments LACTATE BLOOD ARTERIAL (2) 0.8 mmol/L 0.5-2.2 (BEAKER) (test code = 2874) Fire Chief Deputy ID - SHANITA [facility] (HEMOGRAM ONLY)2022-02-10 04:00:32 Test Item Value Reference Range Interpretation Comments WHITE BLOOD CELL COUNT (BEAKER) 14.4 K/ L 3.5-10.5 H (test code = 775) RED BLOOD CELL COUNT (BEAKER) 2.82 M/ L 4.63-6.08 L (test code = 761) HEMOGLOBIN (BEAKER) (test code = 8.6 GM/DL 13.7-17.5 L 410) HEMATOCRIT (BEAKER) (test code = 26.4 % 40.1-51.0 L 411) MEAN CORPUSCULAR VOLUME (BEAKER) 93.6 fL 79.0-92.2 H (test code = 753) MEAN CORPUSCULAR HEMOGLOBIN 30.5 pg 25.7-32.2 (BEAKER) (test code = 751) MEAN CORPUSCULAR HEMOGLOBIN CONC 32.6 GM/DL 32.3-36.5 (BEAKER) (test code = 752) RED CELL DISTRIBUTION WIDTH 14.8 % 11.6-14.4 H (BEAKER) (test code = 412) PLATELET COUNT (BEAKER) (test 148 K/CU MM 150-450 L code = 756) MEAN PLATELET VOLUME (BEAKER) 9.7 fL 9.4-12.4 (test code = 754) NUCLEATED RED BLOOD CELLS 0 /100 WBC 0-0 (BEAKER) (test code = 413) POCT-GLUCOSE [id number] 02:46:41 Test Item Value Reference Range Interpretation Comments POC-GLUCOSE METER 128 mg/dL 70-110 H : TESTED A T [facility] 6720 (BEAKER) (test code = [facility], [facility]8) [id number]: Fire Chief Deputy/Techni diaz ID = [id number] for NG RICA, DUNG POCT-GLUCOSE [id number] 00:38:12 Test Item Value Reference Range Interpretation Comments POC-GLUCOSE METER 138 mg/dL 70-110 H : TESTED A T [facility] 6720 (BEAKER) (test code = [facility], [facility]) [id number]: Fire Chief Deputy/Techni diaz ID = [id number] for NG RICA, DUNG POCT-GLUCOSE [id number] 23:17:27 Test Item Value Reference Range Interpretation Comments POC-GLUCOSE METER 141 mg/dL 70-110 H : TESTED A T [facility] 6720 (BEAKER) (test code = [facility], [facility]) [id number]: Fire Chief Deputy/Techni diaz ID = [id number] for NG RICA, DUNG POCT-GLUCOSE [id number] 22:20:14 Test Item Value Reference Range Interpretation Comments POC-GLUCOSE METER 151 mg/dL 70-110 H : TESTED A T [facility] 6720 (BEAKER) (test code = [facility], [facility]) [id number]: Fire Chief Deputy/Techni diaz ID = [id number] for NG RICA, DUNG LACTIC ACID, [id number] 21:08:39 Test Item Value Reference Range Interpretation Comments LACTATE BLOOD ARTERIAL (2) 1.6 mmol/L 0.5-2.2 (BEAKER) (test code = 2874) Fire Chief Deputy ID - BSBLOOD GAS, [id number] 20:52:38 Test Item Value Reference Range Interpretation Comments PH ARTERIAL (BEAKER) (test code = 7.39 7.35-7.45 383) PCO2 ARTERIAL (BEAKER) (test code 36 mm Hg 35-45 = 384) PO2 ARTERIAL (BEAKER) (test code 89 mm Hg 80-90 = 385) O2 SATURATION ARTERIAL (BEAKER) 96.7 % 96.0-97.0 (test code = 386) HCO3 ARTERIAL (BEAKER) (test code 21 mmol/L 21-29 = 388) BASE EXCESS ARTERIAL (BEAKER) -3.2 mmol/L -2.0-3.0 L (test code = 387) PATIENT TEMPERATURE (BEAKER) 37.3 (test code = 1818) FIO2 (BEAKER) (test code = 1819) 36.0 POCT-GLUCOSE [id number] 20:21:03 Test Item Value Reference Range Interpretation Comments POC-GLUCOSE METER 155 mg/dL 70-110 H : TESTED A T [facility] 6720 (BEAKER) (test code = [facility], 1538) [id number]: Fire Chief Deputy/Techni diaz ID = [id number] for NG LALITHA STRAUSS BLOOD GAS, [id number] 18:55:30 Test Item Value Reference Range Interpretation Comments PH ARTERIAL (BEAKER) (test code = 7.41 7.35-7.45 383) PCO2 ARTERIAL (BEAKER) (test code 34 mm Hg 35-45 L = 384) PO2 ARTERIAL (BEAKER) (test code 80 mm Hg 80-90 = 385) O2 SATURATION ARTERIAL (BEAKER) 96.1 % 96.0-97.0 (test code = 386) HCO3 ARTERIAL (BEAKER) (test code 21 mmol/L 21-29 = 388) BASE EXCESS ARTERIAL (BEAKER) -3.2 mmol/L -2.0-3.0 L (test code = 387) PATIENT TEMPERATURE (BEAKER) 36.7 (test code = 1818) FIO2 (BEAKER) (test code = 1819) 40.0 GLUCOSE-STAT [id number] 18:55:30 Test Item Value Reference Range Interpretation Comments GLUCOSE RANDOM (BEAKER) (test code 169 mg/dL 70-110 H = 652) POCT-GLUCOSE [id number] 18:02:09 Test Item Value Reference Range Interpretation Comments POC-GLUCOSE METER 157 mg/dL 70-110 H : TESTED A T [facility] 6720 (BEAKER) (test code = [facility], 153) [address]: Fire Chief Deputy/Techni diaz ID = [id number] for BR MALIKCAROLE LACTIC ACID, [id number] 16:37:27 Test Item Value Reference Range Interpretation Comments LACTATE BLOOD 2.0 mmol/L 0.5-2.2 Specimen sligh tly ARTERIAL (2) (BEAKER) hemoly zed (test code = 2874) Fire Chief Deputy ID - BSGLUCOSE-STAT [id number] 16:37:22 Test Item Value Reference Range Interpretation Comments GLUCOSE RANDOM (BEAKER) (test code 169 mg/dL 70-110 H = 652) BLOOD GAS, [id number] 16:37:21 Test Item Value Reference Range Interpretation Comments PH ARTERIAL (BEAKER) (test code = 7.41 7.35-7.45 383) PCO2 ARTERIAL (BEAKER) (test code 36 mm Hg 35-45 = 384) PO2 ARTERIAL (BEAKER) (test code 119 mm Hg 80-90 H = 385) O2 SATURATION ARTERIAL (BEAKER) 98.4 % 96.0-97.0 H (test code = 386) HCO3 ARTERIAL (BEAKER) (test code 22 mmol/L 21-29 = 388) BASE EXCESS ARTERIAL (BEAKER) -2.2 mmol/L -2.0-3.0 L (test code = 387) PATIENT TEMPERATURE (BEAKER) 36.5 (test code = 1818) FIO2 (BEAKER) (test code = 1819) 60.0 (CELLAVISION MANUAL DIFF)2022-02-09 15:34:38 Test Item Value Reference Range Interpretation Comments NEUTROPHILS - REL 78 % (CELLAVISION)(BEAKER) (test code = 2816) LYMPHOCYTES - REL 3 % (CELLAVISION)(BEAKER) (test code = 2817) MONOCYTES - REL 5 % (CELLAVISION)(BEAKER) (test code = 2818) MYELOCYTES - REL 1 % 0-0 H (CELLAVISION)(BEAKER) (test code = 2822) BANDS - REL (CELLAVISION)(BEAKER) 13 % 0-10 H (test code = 2826) NEUTROPHILS - ABS 9.59 K/ul 1.78-5.38 H (CELLAVISION)(BEAKER) (test code = 2830) LYMPHOCYTES - ABS 0.37 K/ul 1.32-3.57 L (CELLAVISION)(BEAKER) (test code = 2831) MONOCYTES - ABS 0.62 K/uL 0.30-0.82 (CELLAVISION)(BEAKER) (test code = 2832) MYELOCYTES-ABS 0.12 K/uL 0.00-0.00 H (CELLAVISION)(BEAKER) (test code = 2837) BANDS - ABS (CELLAVISION)(BEAKER) 1.60 K/uL 0.00-0.80 H (test code = 2840) TOTAL COUNTED (BEAKER) (test code 100 = 1351) WBC MORPHOLOGY (BEAKER) (test Normal code = 487) PLT MORPHOLOGY (BEAKER) (test Normal code = 486) ANISOCYTOSIS (BEAKER) (test code 2+ moderate = 961) MICROCYTES (BEAKER) (test code = 2+ moderate 965) MACROCYTES (BEAKER) (test code = 1+ few 964) ARTIFACT (CELLAVISION)(BEAKER) Present (test code = 3432) PLATELET CONCENTRATION Adequate (CELLAVISION)(BEAKER) (test code = 3438) Fire Chief Deputy ID - [id number] ID - Sangeetha Francisco comments: Slide comments:BASIC METABOLIC [id number] 15:14:24 Test Item Value Reference Range Interpretation Comments SODIUM (BEAKER) 136 meq/L 136-145 (test code = 381) POTASSIUM (BEAKER) 3.7 meq/L 3.5-5.1 (test code = 379) CHLORIDE (BEAKER) 107 meq/L 98-107 (test code = 382) CO2 (BEAKER) (test 21 meq/L 22-29 L code = 355) BLOOD UREA NITROGEN 22 mg/dL 7-21 H (BEAKER) (test code = 354) CREATININE (BEAKER) 1.71 mg/dL 0.57-1.25 H (test code = 358) GLUCOSE RANDOM 214 mg/dL 70-105 H (BEAKER) (test code = 652) CALCIUM (BEAKER) 7.7 mg/dL 8.4-10.2 L (test code = 697) EGFR (BEAKER) (test 39 mL/min/1.73 ESTIMA MOSHE GFR IS code = 1092) sq m NOT ACCURATE CREATININE CLEARANCE IN PREDICTING GLOMERULAR FILTRATION RATE . ESTIMATED GFR I S NOT APPLICABLE FOR DIALYSIS PATIEN TS. Fire Chief Deputy ID - [id number] 15:14:07 Test Item Value Reference Range Interpretation Comments MAGNESIUM (BEAKER) (test code = 2.0 mg/dL 1.6-2.6 627) Fire Chief Deputy ID - [id number] 15:14:07 Test Item Value Reference Range Interpretation Comments PHOSPHORUS (BEAKER) (test code = 2.0 mg/dL 2.3-4.7 L 604) Fire Chief Deputy ID - [id number] 15:04:40 Test Item Value Reference Range Interpretation Comments PARTIAL THROMBOPLASTIN TIME 35.9 seconds 22.5-36.0 (BEAKER) (test code = 760) PROTHROMBIN TIME/[id number] 15:04:03 Test Item Value Reference Range Interpretation Comments PROTIME (BEAKER) 16.2 seconds 11.9-14.2 H (test code = 759) INR (BEAKER) (test 1.32 See_Comment [Automat ed message] code = 370) The system NGDATA generated this result transmitted ref erence range: <=5.90. The reference range was not used to int erpret this result as normal/abnormal . RECOMMENDED COUMADIN/WARFARIN INR THERAPY RANGESSTANDARD DOSE: 2.0 - 3.0 Includes: PROPHYLAXIS forvenous thrombosis, systemic embolization; TREATMENT for venous thrombosis and/or pulmonary embolus.HIGH RISK: Target INR is 2.5-3.5 for patients with mechanical heart valves.LACTIC ACID, [id number] 15:03:00 Test Item Value Reference Range Interpretation Comments LACTATE BLOOD ARTERIAL (2) 1.3 mmol/L 0.5-2.2 (BEAKER) (test code = 2874) Fire Chief Deputy ID - BSCBC W/PLT COUNT & AUTO [id number] 15:00:31 Test Item Value Reference Range Interpretation Comments WHITE BLOOD CELL COUNT (BEAKER) 12.7 K/ L 3.5-10.5 H (test code = 775) RED BLOOD CELL COUNT (BEAKER) 2.66 M/ L 4.63-6.08 L (test code = 761) HEMOGLOBIN (BEAKER) (test code = 8.2 GM/DL 13.7-17.5 L 410) HEMATOCRIT (BEAKER) (test code = 24.2 % 40.1-51.0 L 411) MEAN CORPUSCULAR VOLUME (BEAKER) 91.0 fL 79.0-92.2 (test code = 753) MEAN CORPUSCULAR HEMOGLOBIN 30.8 pg 25.7-32.2 (BEAKER) (test code = 751) MEAN CORPUSCULAR HEMOGLOBIN CONC 33.9 GM/DL 32.3-36.5 (BEAKER) (test code = 752) RED CELL DISTRIBUTION WIDTH 14.9 % 11.6-14.4 H (BEAKER) (test code = 412) PLATELET COUNT (BEAKER) (test 169 K/CU MM 150-450 code = 756) MEAN PLATELET VOLUME (BEAKER) 9.2 fL 9.4-12.4 L (test code = 754) NUCLEATED RED BLOOD CELLS 0 /100 WBC 0-0 (BEAKER) (test code = 413) CALCIUM, [id number] 14:48:27 Test Item Value Reference Range Interpretation Comments CALCIUM IONIZED (BEAKER) (test 1.04 mmol/L 1.12-1.27 L code = 698) PH, BLOOD (BEAKER) (test code = 7.35 1810) BLOOD GAS, [id number] 14:48:12 Test Item Value Reference Range Interpretation Comments PH ARTERIAL (BEAKER) (test code = 7.40 7.35-7.45 383) PCO2 ARTERIAL (BEAKER) (test code 38 mm Hg 35-45 = 384) PO2 ARTERIAL (BEAKER) (test code 143 mm Hg 80-90 H = 385) O2 SATURATION ARTERIAL (BEAKER) 98.9 % 96.0-97.0 H (test code = 386) HCO3 ARTERIAL (BEAKER) (test code 23 mmol/L 21-29 = 388) BASE EXCESS ARTERIAL (BEAKER) -1.9 mmol/L -2.0-3.0 (test code = 387) PATIENT TEMPERATURE (BEAKER) 35.2 (test code = 1818) FIO2 (BEAKER) (test code = 1819) 60.0 OXYGEN SATURATION, [id number] 14:47:33 Test Item Value Reference Range Interpretation Comments O2 SATURATION (MEASURED) (BEAKER) 84.4 % (test code = 1455) CBC W/PLT COUNT & AUTO [id number] 14:41:20 Test Item Value Reference Range Interpretation Comments WHITE BLOOD CELL COUNT (BEAKER) 13.4 K/ L 3.5-10.5 H (test code = 775) RED BLOOD CELL COUNT (BEAKER) 2.84 M/ L 4.63-6.08 L (test code = 761) HEMOGLOBIN (BEAKER) (test code = 8.7 GM/DL 13.7-17.5 L 410) HEMATOCRIT (BEAKER) (test code = 26.5 % 40.1-51.0 L 411) MEAN CORPUSCULAR VOLUME (BEAKER) 93.3 fL 79.0-92.2 H (test code = 753) MEAN CORPUSCULAR HEMOGLOBIN 30.6 pg 25.7-32.2 (BEAKER) (test code = 751) MEAN CORPUSCULAR HEMOGLOBIN CONC 32.8 GM/DL 32.3-36.5 (BEAKER) (test code = 752) RED CELL DISTRIBUTION WIDTH 15.0 % 11.6-14.4 H (BEAKER) (test code = 412) PLATELET COUNT (BEAKER) (test 189 K/CU MM 150-450 code = 756) MEAN PLATELET VOLUME (BEAKER) 10.0 fL 9.4-12.4 (test code = 754) NUCLEATED RED BLOOD CELLS 0 /100 WBC 0-0 (BEAKER) (test code = 413) NEUTROPHILS RELATIVE PERCENT 81 % (BEAKER) (test code = 429) LYMPHOCYTES RELATIVE PERCENT 11 % (BEAKER) (test code = 430) MONOCYTES RELATIVE PERCENT 5 % (BEAKER) (test code = 431) EOSINOPHILS RELATIVE PERCENT 1 % (BEAKER) (test code = 432) BASOPHILS RELATIVE PERCENT 0 % (BEAKER) (test code = 437) NEUTROPHILS ABSOLUTE COUNT 10.85 K/ L 1.78-5.38 H (BEAKER) (test code = 670) LYMPHOCYTES ABSOLUTE COUNT 1.50 K/ L 1.32-3.57 (BEAKER) (test code = 414) MONOCYTES ABSOLUTE COUNT (BEAKER) 0.65 K/ L 0.30-0.82 (test code = 415) EOSINOPHILS ABSOLUTE COUNT 0.14 K/ L 0.04-0.54 (BEAKER) (test code = 416) BASOPHILS ABSOLUTE COUNT (BEAKER) 0.03 K/ L 0.01-0.08 (test code = 417) IMMATURE GRANULOCYTES-RELATIVE 2 % 0-1 H PERCENT (BEAKER) (test code = 2801) [id number] 13:18:44 Test Item Value Reference Range Interpretation Comments ACTIVATED CLOTTING TIME 136 sec : 74 -137 seconds, (BEAKER) (test code = Baseli ne: TESTED AT 441) [place] [id number]: Fire Chief Deputy/Techni diaz ID = [id number] for TORIN ZUNIGA KATINA [id number] 13:18:43 Test Item Value Reference Range Interpretation Comments ACTIVATED CLOTTING TIME 535 sec : 74 -137 seconds, (BEAKER) (test code = Baseli ne: TESTED AT 441) [place] [address]: Fire Chief Deputy/Techni diaz ID = [id number] for CA STRO, SONJA [id number] 13:18:42 Test Item Value Reference Range Interpretation Comments ACTIVATED CLOTTING TIME 654 sec : 74 -137 seconds, (BEAKER) (test code = Baseli ne: TESTED AT 441) [place] [address]: Fire Chief Deputy/Techni diaz ID = [id number] for CA STRO, SONJA [id number] 13:18:42 Test Item Value Reference Range Interpretation Comments ACTIVATED CLOTTING TIME 696 sec : 74 -137 seconds, (BEAKER) (test code = Baseli ne: TESTED AT 441) [place] [address]: Fire Chief Deputy/Techni diaz ID = [id number] for CA STRO, SONJA [id number] 13:18:41 Test Item Value Reference Range Interpretation Comments ACTIVATED CLOTTING TIME 696 sec : 74 -137 seconds, (BEAKER) (test code = Baseli ne: TESTED AT 441) [place] [address]: Fire Chief Deputy/Techni diaz ID = [id number] for CA STRO, SONJA [id number] 12:54:23 Test Item Value Reference Range Interpretation Comments FIBRINOGEN LEVEL (BEAKER) (test 435 mg/dl 225-434 H code = 658) PROTHROMBIN [id number] 12:54:06 Test Item Value Reference Range Interpretation Comments PROTIME (BEAKER) 18.0 seconds 11.9-14.2 H (test code = 759) INR (BEAKER) (test 1.52 See_Comment [Automat ed message] code = 370) The system NGDATA generated this result transmitted ref erence range: <=5.90. The reference range was not used to int erpret this result as normal/abnormal . RECOMMENDED COUMADIN/WARFARIN INR THERAPY RANGESSTANDARD DOSE: 2.0 - 3.0 Includes: PROPHYLAXIS forvenous thrombosis, systemic embolization; TREATMENT for venous thrombosis and/or pulmonary embolus.HIGH RISK: Target INR is 2.5-3.5 for patients with mechanical heart valves.PLATELET [id number] 12:40:20 Test Item Value Reference Range Interpretation Comments PLATELET COUNT (BEAKER) (test 179 K/CU MM 150-450 code = 756) Fire Chief Deputy ID - [id number]-STAT [id number] 12:32:34 Test Item Value Reference Range Interpretation Comments GLUCOSE RANDOM (BEAKER) (test code 243 mg/dL 70-110 H = 652) HGB/HCT (H&H) - STAT [id number] 12:32:34 Test Item Value Reference Range Interpretation Comments HEMOGLOBIN (BEAKER) (test code = 9.0 GM/DL 13.0-16.8 L 410) HEMATOCRIT (BEAKER) (test code = 26.0 % 40.0-50.0 L 411) BLOOD GAS, [id number] 12:32:33 Test Item Value Reference Range Interpretation Comments PH ARTERIAL (BEAKER) (test code = 7.40 7.35-7.45 383) PCO2 ARTERIAL (BEAKER) (test code 33 mm Hg 35-45 L = 384) PO2 ARTERIAL (BEAKER) (test code 96 mm Hg 80-90 H = 385) O2 SATURATION ARTERIAL (BEAKER) 97.7 % 96.0-97.0 H (test code = 386) HCO3 ARTERIAL (BEAKER) (test code 20 mmol/L 21-29 L = 388) BASE EXCESS ARTERIAL (BEAKER) -4.2 mmol/L -2.0-3.0 L (test code = 387) PATIENT TEMPERATURE (BEAKER) 36.0 (test code = 1818) FIO2 (BEAKER) (test code = 1819) 100.0 SODIUM NA-STAT [id number] 12:32:33 Test Item Value Reference Range Interpretation Comments SODIUM (BEAKER) (test code = 381) 131 meq/L 136-145 L POTASSIUM-STAT [id number] 12:32:17 Test Item Value Reference Range Interpretation Comments POTASSIUM (BEAKER) (test code = 3.8 meq/L 3.6-5.5 379) GLUCOSE-STAT [id number] 11:50:14 Test Item Value Reference Range Interpretation Comments GLUCOSE RANDOM (BEAKER) (test code 263 mg/dL 70-110 H = 652) HGB/HCT (H&H) - STAT [id number] 11:50:14 Test Item Value Reference Range Interpretation Comments HEMOGLOBIN (BEAKER) (test code = 7.6 GM/DL 13.0-16.8 L 410) HEMATOCRIT (BEAKER) (test code = 22.0 % 40.0-50.0 L 411) BLOOD GAS, [id number] 11:50:13 Test Item Value Reference Range Interpretation Comments PH ARTERIAL (BEAKER) (test code = 7.40 7.35-7.45 383) PCO2 ARTERIAL (BEAKER) (test code 35 mm Hg 35-45 = 384) PO2 ARTERIAL (BEAKER) (test code 242 mm Hg 80-90 H = 385) O2 SATURATION ARTERIAL (BEAKER) 99.6 % 96.0-97.0 H (test code = 386) HCO3 ARTERIAL (BEAKER) (test code 22 mmol/L 21-29 = 388) BASE EXCESS ARTERIAL (BEAKER) -2.9 mmol/L -2.0-3.0 L (test code = 387) PATIENT TEMPERATURE (BEAKER) 36.5 (test code = 1818) FIO2 (BEAKER) (test code = 1819) 73.0 SODIUM NA-STAT [id number] 11:50:13 Test Item Value Reference Range Interpretation Comments SODIUM (BEAKER) (test code = 381) 129 meq/L 136-145 L POTASSIUM-STAT [id number] 11:50:02 Test Item Value Reference Range Interpretation Comments POTASSIUM (BEAKER) (test code = 4.8 meq/L 3.6-5.5 379) GLUCOSE-STAT [id number] 11:14:52 Test Item Value Reference Range Interpretation Comments GLUCOSE RANDOM (BEAKER) (test code 249 mg/dL 70-110 H = 652) HGB/HCT (H&H) - STAT [id number] 11:14:52 Test Item Value Reference Range Interpretation Comments HEMOGLOBIN (BEAKER) (test code = 7.5 GM/DL 13.0-16.8 L 410) HEMATOCRIT (BEAKER) (test code = 22.0 % 40.0-50.0 L 411) BLOOD GAS, [id number] 11:14:51 Test Item Value Reference Range Interpretation Comments PH ARTERIAL (BEAKER) (test code = 7.51 7.35-7.45 H 383) PCO2 ARTERIAL (BEAKER) (test code 28 mm Hg 35-45 L = 384) PO2 ARTERIAL (BEAKER) (test code 410 mm Hg 80-90 H = 385) O2 SATURATION ARTERIAL (BEAKER) 99.9 % 96.0-97.0 H (test code = 386) HCO3 ARTERIAL (BEAKER) (test code 22 mmol/L 21-29 = 388) BASE EXCESS ARTERIAL (BEAKER) -1.3 mmol/L -2.0-3.0 (test code = 387) PATIENT TEMPERATURE (BEAKER) 36.0 (test code = 1818) FIO2 (BEAKER) (test code = 1819) 85.0 SODIUM NA-STAT [id number] 11:14:51 Test Item Value Reference Range Interpretation Comments SODIUM (BEAKER) (test code = 381) 129 meq/L 136-145 L POTASSIUM-STAT [id number] 11:13:51 Test Item Value Reference Range Interpretation Comments POTASSIUM (BEAKER) (test code = 5.0 meq/L 3.6-5.5 379) HGB/HCT (H&H) - STAT [id number] 10:55:39 Test Item Value Reference Range Interpretation Comments HEMOGLOBIN (BEAKER) (test code = 7.3 GM/DL 13.0-16.8 L 410) HEMATOCRIT (BEAKER) (test code = 21.0 % 40.0-50.0 L 411) SODIUM NA-STAT [id number] 10:55:38 Test Item Value Reference Range Interpretation Comments SODIUM (BEAKER) (test code = 381) 129 meq/L 136-145 L GLUCOSE-STAT [id number] 10:55:38 Test Item Value Reference Range Interpretation Comments GLUCOSE RANDOM (BEAKER) (test code 183 mg/dL 70-110 H = 652) BLOOD GAS, [id number] 10:55:37 Test Item Value Reference Range Interpretation Comments PH ARTERIAL (BEAKER) (test code = 7.51 7.35-7.45 H 383) PCO2 ARTERIAL (BEAKER) (test code 26 mm Hg 35-45 L = 384) PO2 ARTERIAL (BEAKER) (test code 432 mm Hg 80-90 H = 385) O2 SATURATION ARTERIAL (BEAKER) 99.9 % 96.0-97.0 H (test code = 386) HCO3 ARTERIAL (BEAKER) (test code 21 mmol/L 21-29 = 388) BASE EXCESS ARTERIAL (BEAKER) -2.3 mmol/L -2.0-3.0 L (test code = 387) PATIENT TEMPERATURE (BEAKER) 34.9 (test code = 1818) FIO2 (BEAKER) (test code = 1819) 100.0 POTASSIUM-STAT [id number] 10:55:23 Test Item Value Reference Range Interpretation Comments POTASSIUM (BEAKER) (test code = 3.8 meq/L 3.6-5.5 379) GLUCOSE-STAT [id number] 09:02:47 Test Item Value Reference Range Interpretation Comments GLUCOSE RANDOM (BEAKER) (test code 174 mg/dL 70-110 H = 652) HGB/HCT (H&H) - STAT [id number] 09:02:47 Test Item Value Reference Range Interpretation Comments HEMOGLOBIN (BEAKER) (test code = 10.7 GM/DL 13.0-16.8 L 410) HEMATOCRIT (BEAKER) (test code = 31.0 % 40.0-50.0 L 411) BLOOD GAS, [id number] 09:02:46 Test Item Value Reference Range Interpretation Comments PH ARTERIAL (BEAKER) (test code = 7.38 7.35-7.45 383) PCO2 ARTERIAL (BEAKER) (test code 44 mm Hg 35-45 = 384) PO2 ARTERIAL (BEAKER) (test code 423 mm Hg 80-90 H = 385) O2 SATURATION ARTERIAL (BEAKER) 99.8 % 96.0-97.0 H (test code = 386) HCO3 ARTERIAL (BEAKER) (test code 25 mmol/L 21-29 = 388) BASE EXCESS ARTERIAL (BEAKER) -0.2 mmol/L -2.0-3.0 (test code = 387) PATIENT TEMPERATURE (BEAKER) 38.0 (test code = 1818) FIO2 (BEAKER) (test code = 1819) 100.0 SODIUM NA-STAT [id number] 09:02:46 Test Item Value Reference Range Interpretation Comments SODIUM (BEAKER) (test code = 381) 132 meq/L 136-145 L POTASSIUM-STAT [id number] 09:01:48 Test Item Value Reference Range Interpretation Comments POTASSIUM (BEAKER) (test code = 3.7 meq/L 3.6-5.5 379) HEMOGLOBIN [id number] 08:53:38 Test Item Value Reference Range Interpretation Comments HEMOGLOBIN A1C 7.7 % See_Comment H [Automated m essage] ELECTROPHORESIS (BEAKER) The system which (test code = 3811) generated this result transmitted ref erence range: <=5.6%. The reference range was not used to int erpret this result as normal/abnormal . "The A1c is measured using a NGSP-certified method. HbA1c value equal to or greater than 6.5% as thediagnosis cutoff for diabetes. An HbA1c value of 5.7- 6.4% indicates increased risk for diabetes (prediabetes)."Fire Chief Deputy ID - ADMOperator ID - ADMSARS-COV2/RT-PCR ([facility])2022-02-09 07:17:40 Test Item Value Reference Range Interpretation Comments SARS-COV2/RT-PCR Negative Negative The SARS-Co V-2 target (test code = nucleic acids a re not [id number]) detected in thi s specimen. Negative result s do not preclude SARS-C oV-2 infection and s hould not be used as the cesilia e basis for patient managem ent decisions. Nega tive results must be combine d with clinical observ ations, patient history , and epidemiological information. A false negativ e result may occur if a spec imen is improperly dena ected, transported or handled. This SARS CoV-2 test is a rapid, real-heath e RT-PCR test intended for th e qualitative detection of nu cleic acid from SARS-CoV-2 in a nasopharyngeal swab specimen collected from individuals suspected of CO VID-19 by their healthcar e provider. This test has been authorized by FDA under an EUA for use by authorized laboratories. This test is only authorized for the duration of the declaration that circumstances exist justifying the authorization of emergency use of in vitro diagnostic tests for detection and/or diagnosis of COVID-19 under Section 564(b)(1) of the Federal Food, Drug and Cosmetic Act, 21 U.S.C. 360bbb- 3(b)(1), unless the authorization is terminated or revoked sooner. Fact Sheet for Healthcare Providers: https://www.[employer]/Documents/Xpert%20Xpress%20SARS%20CoV-2/Fact%20Sheets/3023802%20SARS-COV -2%20HEALTHCARE%20PROVIDERS%20FACT%20SHEET.pdf Fact Sheet for Healthcare Patients: https://www.[employer]/Documents/Xpert %20Xpress%20SARS%20CoV-2/Fact%20Sheets/3023801%42KPOI-XIT-9%20PATIENT%20FACT%20 SHEET.pdfURINALYSIS W/ [id number] 18:08:55 Test Item Value Reference Range Interpretation Comments COLOR (BEAKER) (test code = 470) Yellow CLARITY (BEAKER) (test code = 469) Clear SPECIFIC GRAVITY UA (BEAKER) (test 1.010 1.001-1.035 code = 468) PH UA (BEAKER) (test code = 467) 6.5 5.0-8.0 PROTEIN UA (BEAKER) (test code = 100 mg/dL Negative A 464) GLUCOSE UA (BEAKER) (test code = 500 mg/dL Negative A 365) KETONES UA (BEAKER) (test code = Negative Negative 371) BILIRUBIN UA (BEAKER) (test code = Negative Negative 462) BLOOD UA (BEAKER) (test code = 461) Negative Negative NITRITE UA (BEAKER) (test code = Negative Negative 465) LEUKOCYTE ESTERASE UA (BEAKER) Negative Negative (test code = 466) UROBILINOGEN UA (BEAKER) (test code 0.2 mg/dL 0.2-1.0 = 463) RBC UA (BEAKER) (test code = 519) 1 /HPF WBC UA (BEAKER) (test code = 520) 0 /HPF BACTERIA (BEAKER) (test code = 517) None Seen CRYSTALS, URINE (BEAKER) (test code None Seen = 1521) SOURCE(BEAKER) (test code = 2795) Fire Chief Deputy ID - [auto]Fire Chief Deputy ID - techBASIC METABOLIC [id number] 16:04:23 Test Item Value Reference Range Interpretation Comments SODIUM (BEAKER) 130 meq/L 136-145 L (test code = 381) POTASSIUM (BEAKER) 3.8 meq/L 3.5-5.1 (test code = 379) CHLORIDE (BEAKER) 96 meq/L 98-107 L (test code = 382) CO2 (BEAKER) (test 25 meq/L 22-29 code = 355) BLOOD UREA NITROGEN 27 mg/dL 7-21 H (BEAKER) (test code = 354) CREATININE (BEAKER) 2.23 mg/dL 0.57-1.25 H (test code = 358) GLUCOSE RANDOM 260 mg/dL 70-105 H (BEAKER) (test code = 652) CALCIUM (BEAKER) 8.9 mg/dL 8.4-10.2 (test code = 697) EGFR (BEAKER) (test 29 mL/min/1.73 ESTIMA MOSHE GFR IS code = 1092) sq m NOT ACCURATE CREATININE CLEARANCE IN PREDICTING GLOMERULAR FILTRATION RATE . ESTIMATED GFR I S NOT APPLICABLE FOR DIALYSIS PATIEN TS. Fire Chief Deputy ID - [id number] 16:01:10 Test Item Value Reference Range Interpretation Comments PHOSPHORUS (BEAKER) (test code = 2.5 mg/dL 2.3-4.7 604) Fire Chief Deputy ID - BSLIPID [id number] 16:01:10 Test Item Value Reference Range Interpretation Comments TRIGLYCERIDES (BEAKER) (test code = 155 mg/dL 540) CHOLESTEROL (BEAKER) (test code = 150 mg/dL 631) HDL CHOLESTEROL (BEAKER) (test code 30 mg/dL = 976) LDL CHOLESTEROL CALCULATED (BEAKER) 89 mg/dL (test code = 633) Triglyceride Reference Range: Low Risk <150 Borderline 150-199 High Risk 200-499 Very High Risk >=500Cholesterol Reference Range: Low Risk <200 Borderline 200-239 High Risk >240HDL Cholesterol Reference Range: Low Risk >=60 High Risk <40LDL Cholesterol Reference Range: Optimal <100 Near Optimal 100-129 Borderline 130-159 High 160-189 Very High >=190 Fire Chief Deputy ID - [id number] 16:01:09 Test Item Value Reference Range Interpretation Comments MAGNESIUM (BEAKER) (test code = 2.2 mg/dL 1.6-2.6 627) Fire Chief Deputy ID - BSCBC W/PLT COUNT & AUTO [id number] 15:48:35 Test Item Value Reference Range Interpretation Comments WHITE BLOOD CELL COUNT (BEAKER) 5.6 K/ L 3.5-10.5 (test code = 775) RED BLOOD CELL COUNT (BEAKER) 3.69 M/ L 4.63-6.08 L (test code = 761) HEMOGLOBIN (BEAKER) (test code = 11.1 GM/DL 13.7-17.5 L 410) HEMATOCRIT (BEAKER) (test code = 34.0 % 40.1-51.0 L 411) MEAN CORPUSCULAR VOLUME (BEAKER) 92.1 fL 79.0-92.2 (test code = 753) MEAN CORPUSCULAR HEMOGLOBIN 30.1 pg 25.7-32.2 (BEAKER) (test code = 751) MEAN CORPUSCULAR HEMOGLOBIN CONC 32.6 GM/DL 32.3-36.5 (BEAKER) (test code = 752) RED CELL DISTRIBUTION WIDTH 14.7 % 11.6-14.4 H (BEAKER) (test code = 412) PLATELET COUNT (BEAKER) (test 202 K/CU MM 150-450 code = 756) MEAN PLATELET VOLUME (BEAKER) 9.4 fL 9.4-12.4 (test code = 754) NUCLEATED RED BLOOD CELLS 0 /100 WBC 0-0 (BEAKER) (test code = 413) NEUTROPHILS RELATIVE PERCENT 83 % (BEAKER) (test code = 429) LYMPHOCYTES RELATIVE PERCENT 7 % (BEAKER) (test code = 430) MONOCYTES RELATIVE PERCENT 7 % (BEAKER) (test code = 431) EOSINOPHILS RELATIVE PERCENT 1 % (BEAKER) (test code = 432) BASOPHILS RELATIVE PERCENT 0 % (BEAKER) (test code = 437) NEUTROPHILS ABSOLUTE COUNT 4.62 K/ L 1.78-5.38 (BEAKER) (test code = 670) LYMPHOCYTES ABSOLUTE COUNT 0.36 K/ L 1.32-3.57 L (BEAKER) (test code = 414) MONOCYTES ABSOLUTE COUNT (BEAKER) 0.41 K/ L 0.30-0.82 (test code = 415) EOSINOPHILS ABSOLUTE COUNT 0.08 K/ L 0.04-0.54 (BEAKER) (test code = 416) BASOPHILS ABSOLUTE COUNT (BEAKER) 0.02 K/ L 0.01-0.08 (test code = 417) IMMATURE GRANULOCYTES-RELATIVE 1 % 0-1 PERCENT (BEAKER) (test code = 2801) [id number] 15:32:17 Test Item Value Reference Range Interpretation Comments PARTIAL THROMBOPLASTIN TIME 38.8 seconds 22.5-36.0 H (BEAKER) (test code = 760) PROTHROMBIN [id number] 15:31:59 Test Item Value Reference Range Interpretation Comments PROTIME (BEAKER) 13.2 seconds 11.9-14.2 (test code = 759) INR (BEAKER) (test 1.02 See_Comment [Automat ed message] code = 370) The system [employer] generated this result transmitted ref erence range: <=5.90. The reference range was not used to int erpret this result as normal/abnormal . RECOMMENDED COUMADIN/WARFARIN INR THERAPY RANGESSTANDARD DOSE: 2.0 - 3.0 Includes: PROPHYLAXIS forvenous thrombosis, systemic embolization; TREATMENT for venous thrombosis and/or pulmonary embolus.HIGH RISK: Target INR is 2.5-3.5 for patients with mechanical heart valves.ANTI-MITOCHONDRIAL AB, REFLEX TO TITER 2022-02-04 07:59:23 Test Item Value Reference Range Interpretation Comments SCAN RESULT (test code = 5863656) PHOSPHATIDYLETHANOL, [id number] 11:24:39 Test Item Value Reference Range Interpretation Comments PHOSPHATIDYLETHANOL (PETH) See scanned (test code = 6520678) report See scanned reportPOCT-GLUCOSE [id number] 09:57:09 Test Item Value Reference Range Interpretation Comments POC-GLUCOSE METER 216 mg/dL 70-110 H : TESTED A T [facility] 6720 (BEAKER) (test code = [place], 1538) [address]: Fire Chief Deputy/Techni diaz ID = [id number] for Aleksey munroe (pca2)Pebbles BASIC METABOLIC [id number] 05:33:08 Test Item Value Reference Range Interpretation [...] S NOT APPLICABLE FOR DIALYSIS PATIEN TS. Fire Chief Deputy ID - PIAYA LCBC W/PLT COUNT & AUTO [id number] 04:37:52 Test Item Value Reference Range Interpretation [...] PERCENT (BEAKER) (test code = 2801) POCT-GLUCOSE [id number] 16:00:26 Test Item Value Reference Range Interpretation Comments POC-GLUCOSE METER 399 mg/dL 70-110 H : TESTED A T [facility] 6720 (BEAKER) (test code = [place], 1538) [address]: Fire Chief Deputy/Techni diaz ID = [id number] for Efren mengMaribel BASIC METABOLIC [id number] 06:39:45 Test Item Value Reference Range Interpretation [...] S NOT APPLICABLE FOR DIALYSIS PATIEN TS. Fire Chief Deputy ID - PIAYA LCBC W/PLT COUNT & AUTO [id number] 05:29:49 Test Item Value Reference Range Interpretation [...] PERCENT (BEAKER) (test code = 2801) POCT-GLUCOSE [id number] 21:12:45 Test Item Value Reference Range Interpretation Comments POC-GLUCOSE METER 156 mg/dL 70-110 H : Notified RN/MD: (GAEL) (test code = TESTED AT [place] [address] 153) [facility], [address]: Fire Chief Deputy/Techni diaz ID = [id number] for HAZEL CHUN POCT-GLUCOSE [id number] 19:36:30 Test Item Value Reference Range Interpretation Comments POC-GLUCOSE METER 209 mg/dL 70-110 H : Notified RN/MD: (GAEL) (test code = TESTED AT [place] [address] 1538) [facility], [address]: Fire Chief Deputy/Techni diaz ID = [id number] for HAZEL CHUN POCT-GLUCOSE [id number] 16:34:24 Test Item Value Reference Range Interpretation Comments POC-GLUCOSE METER 414 mg/dL 70-110 HH : Notified RN/MD: [facility] (test code AT [address] = 1538) [facility], [address]: Fire Chief Deputy/Techni diaz ID = [id number] for Kemiag delmyCarriree POCT-GLUCOSE [id number] 12:12:54 Test Item Value Reference Range Interpretation Comments POC-GLUCOSE METER 180 mg/dL 70-110 H : TESTED A T [place] [address] ([facility]) (test code [facility], = 1538) [address]: Fire Chief Deputy/Techni diaz ID = [id number] for Bhag delmy, Rajashree POCT-GLUCOSE [id number] 07:53:32 Test Item Value Reference Range Interpretation Comments POC-GLUCOSE METER 263 mg/dL 70-110 H : [facility] 67[facility] (BEAKER) (test code VINCE [facility], = 1538) [address]: Fire Chief Deputy/Techni diaz ID = [id number] for Anabel Silverio COMPREHENSIVE METABOLIC [id number] 07:29:57 Test Item Value Reference Range Interpretation [...] S NOT APPLICABLE FOR DIALYSIS PATIEN TS. Fire Chief Deputy ID - SHANITA MSpecimen slightly ictericCBC W/PLT COUNT & AUTO [id number] 07:13:58 Test Item Value Reference Range Interpretation [...] PERCENT (BEAKER) (test code = 2801) POCT-GLUCOSE [id number] 21:11:42 Test Item Value Reference Range Interpretation Comments POC-GLUCOSE METER 138 mg/dL 70-110 H : Notified RN/MD: (BEAKER) (test code = TESTED AT [place] [address] 1538) [facility], [address]: Fire Chief Deputy/Techni diaz ID = [id number] for HAZEL CHUN POCT-GLUCOSE [id number] 16:54:38 Test Item Value Reference Range Interpretation Comments POC-GLUCOSE METER 327 mg/dL 70-110 H : TESTED A T [facility] 6720 (BEAKER) (test code [facility], = 1538) [address]: Fire Chief Deputy/Techni diaz ID = [id number] for WILS ON, SHASTANIE HEPATIC FUNCTION [id number] 08:53:43 Test Item Value Reference Range Interpretation [...] code = 359 U/L 6-55 H 347) Fire Chief Deputy ID - DBSpecimen slightly ictericPOCT-GLUCOSE [id number] 08:02:49 Test Item Value Reference Range Interpretation Comments POC-GLUCOSE METER 262 mg/dL 70-110 H : TESTED A T [facility] 6720 (BEAKER) (test code [facility], = 1538) [address]: Fire Chief Deputy/Techni diaz ID = [id number] for WILS ON, SHASTANIE BASIC METABOLIC [id number] 05:00:34 Test Item Value Reference Range Interpretation [...] S NOT APPLICABLE FOR DIALYSIS PATIEN TS. Fire Chief Deputy ID - CLAUDIO GSpecimen slightly ictericCBC W/PLT COUNT & AUTO [id number] 04:57:06 Test Item Value Reference Range Interpretation [...] (BEAKER) (test code = 2801) U/S, RENAL, [id number] 00:08:00Reason for exam:->[facility] 1940 Sex: MFINAL [...] Knox MDReport Verified Date/Time: 01/22/2022 00:08:17 POCT-GLUCOSE [id number] 21:45:31 Test Item Value Reference Range Interpretation Comments POC-GLUCOSE METER 258 mg/dL 70-110 H : TESTED A T [facility] 6720 (BEAKER) (test code = [place], 1538) [address]: Fire Chief Deputy/Techni diaz ID = [id number] for STACEY GARRETT CREATININE, RANDOM [id number] 19:56:51 Test Item Value Reference Range Interpretation Comments CREATININE URINE (BEAKER) (test 23.7 mg/dL code = 375) Reference Range: No NormalsOperator ID - DBPROTEIN, RANDOM [id number] 19:56:51 Test Item Value Reference Range Interpretation Comments PROTEIN, URINE (BEAKER) (test code = 62 mg/dL 0-14 H 1569) Fire Chief Deputy ID - DBURINALYSIS W/ [id number] 19:47:32 Test Item Value Reference Range Interpretation [...] = 1521) SOURCE(BEAKER) (test code = 2795) Fire Chief Deputy ID - [auto]Fire Chief Deputy ID - techPOCT-GLUCOSE [id number] 16:23:46 Test Item Value Reference Range Interpretation Comments POC-GLUCOSE METER 270 mg/dL 70-110 H : TESTED A T [facility] 6720 (BEAKER) (test code = [facility], 153) [address]: Fire Chief Deputy/Techni diaz ID = [id number] for DEONNA GREENE, JENNIFFER KAMAR TITER AND [id number] 11:55:46 Test Item Value Reference Range Interpretation Comments KAMAR TITER (BEAKER) (test code = :40 1541) KAMAR PATTERN (BEAKER) (test code = Homogeneous 1781) ANTI-NUCLEAR ANTIBODY (KAMAR)2022-01-21 11:55:40 Test Item Value Reference Range Interpretation Comments ANTI-NUCLEAR ANTIBODY (KAMAR) (BEAKER) Positive Negative A (test code = 418) Test performed by IFA method.POCT-GLUCOSE [id number] 11:43:49 Test Item Value Reference Range Interpretation Comments POC-GLUCOSE METER 225 mg/dL 70-110 H : TESTED A T [facility] 6720 (BEAKER) (test code = [facility], 1538) [address]: Fire Chief Deputy/Techni diaz ID = [id number] for MARTHA DUFFYRosa HEPATIC FUNCTION [id number] 10:49:28 Test Item Value Reference Range Interpretation [...] code = 455 U/L 6-55 H 347) Fire Chief Deputy ID - BSSpecimen moderately ictericPOCT-GLUCOSE [id number] 08:08:00 Test Item Value Reference Range Interpretation Comments POC-GLUCOSE METER 172 mg/dL 70-110 H : TESTED A T [facility] 6720 (BEAKER) (test code = [place], 1538) [address]: Fire Chief Deputy/Techni diaz ID = [id number] for ELIZABETH DUFFY CBC W/PLT COUNT & AUTO [id number] 05:10:56 Test Item Value Reference Range Interpretation [...] (BEAKER) (test code = 2801) BASIC METABOLIC [id number] 05:03:58 Test Item Value Reference Range Interpretation [...] S NOT APPLICABLE FOR DIALYSIS PATIEN TS. Fire Chief Deputy ID - SHANITA MSpecimen slightly [id number] 04:54:21 Test Item Value Reference Range Interpretation Comments MAGNESIUM (ANDREWAKER) (test code = 1.9 mg/dL 1.6-2.6 627) Fire Chief Deputy ID - SHANITA MU/S, ABDOMINAL, WITH [id number] 00:51:00Reason for exam:->elevated lfts [facility] 1940 Sex: MFINAL [...] Ward MDReport Verified Date/Time: 01/21/2022 00:51:44 POCT-GLUCOSE [id number] 21:06:06 Test Item Value Reference Range Interpretation Comments POC-GLUCOSE METER 248 mg/dL 70-110 H : TESTED A T [facility] 6720 ([place]) (test code = [place], 1538) [address]: Fire Chief Deputy/Techni diaz ID = [id number] for STACEY GARRETT HEPATITIS B CORE ANTIBODY, [id number] 18:10:17 Test Item Value Reference Range Interpretation Comments HEPATITIS B CORE TOTAL ANTIBODY Reactive Nonreactive A (BEAKER) (test code = 497) Fire Chief Deputy ID - BSOperator ID - BSOperator ID - BSHEPATITIS C [id number] 17:50:30 Test Item Value Reference Range Interpretation Comments HEPATITIS C ANTIBODY (BEAKER) Nonreactive Nonreactive (test code = 367) Fire Chief Deputy ID - BSHEPATITIS B SURFACE [id number] 17:50:24 Test Item Value Reference Range Interpretation Comments HEPATITIS B SURFACE ANTIGEN (2) Nonreactive Nonreactive (BEAKER) (test code = 2585) Specimen is considered negative for HBsAg.HEPATITIS B SURFACE [id number] 17:50:24 Test Item Value Reference Range Interpretation Comments HEPATITIS B SURFACE ANTIBODY 830.9 mIU/mL <8.0 H (BEAKER) (test code = 647) Fire Chief Deputy ID - BSHEPATITIS B CORE ANTIBODY, [id number] 17:36:49 Test Item Value Reference Range Interpretation Comments HEPATITIS B CORE IGM ANTIBODY Nonreactive Nonreactive (BEAKER) (test code = 645) Fire Chief Deputy ID - BSHEPATITIS A ANTIBODY, [id number] 17:36:49 Test Item Value Reference Range Interpretation Comments HEPATITIS A IGG ANTIBODY (BEAKER) Nonreactive Nonreactive (test code = 2797) Fire Chief Deputy ID - BSALPHA FETOPROTEIN (AFP), TUMOR [id number] 17:36:48 Test Item Value Reference Range Interpretation Comments ALPHA-FETOPROTEIN (BEAKER) (test 3.7 ng/mL <10.0 code = 1094) Fire Chief Deputy ID - BSIMMUNOGLOBULIN G (IGG)2022-01-20 17:15:56 Test Item Value Reference Range Interpretation Comments IMMUNOGLOBULIN G (IGG) 1081 mg/dL See_Comment [Aut omated message] (BEAKER) (test code = The sy stem which 427) generated this result transmit moshe reference range : 540-1,822. The reference range was not used to interpret this result as normal/abnormal . Fire Chief Deputy ID - BSIRON, TIBC, % SAT. (WITHOUT FERRITIN)2022-01-20 17:15:56 Test Item Value Reference Range Interpretation Comments IRON (BEAKER) (test code = 547) 94.0 ug/dL 40.0-160.0 TOTAL IRON BINDING CAPACITY 245 ug/dL 250-450 L (BEAKER) (test code = 769) IRON % SATURATION (2) (BEAKER) 38 % 20-55 (test code = 2590) Fire Chief Deputy ID - BSPOCT-GLUCOSE [id number] 16:55:44 Test Item Value Reference Range Interpretation Comments POC-GLUCOSE METER 226 mg/dL 70-110 H : TESTED A T [facility] 6720 (BEAKER) (test code = [place], 1538) [address]: Fire Chief Deputy/Techni diaz ID = [id number] for MELECIOTMI Lauryn MILLER [id number]-2-[id number] 16:54:50 Test Item Value Reference Range Interpretation Comments ALPHA-1 ANTITRYPSIN (BEAKER) 162.50 mg/dL 90.00-200.00 (test code = 502) Fire Chief Deputy ID - [id number] 16:52:28 Test Item Value Reference Range Interpretation Comments FERRITIN (BEAKER) (test code = 1286.44 ng/mL 5.00-275.00 H 361) Fire Chief Deputy ID - BSPOCT-GLUCOSE [id number] 11:44:46 Test Item Value Reference Range Interpretation Comments POC-GLUCOSE METER 207 mg/dL 70-110 H : TESTED A T [facility] 6720 (GAEL) (test code [facility], = 1538) [address]: Fire Chief Deputy/Techni diaz ID = [id number] for RED MCKEE HEMOGLOBIN [id number] 10:30:47 Test Item Value Reference Range Interpretation [...] 5.7- 6.4% indicates increased risk for diabetes (prediabetes)."Fire Chief Deputy ID - KAMI, CHEST, 2 [id number] 10:28:00Reason for exam:->concern for heart failureDiagnosis:->Shortness of breath [facility] 1940 Sex: MFINAL [...] Poole Verified Date/Time: 01/20/2022 10:28:13 Reading Location: [facility] Radiology Reading Room POCT- GLUCOSE [id number] 07:47:02 Test Item Value Reference Range Interpretation Comments POC-GLUCOSE METER 173 mg/dL 70-110 H : TESTED A T [facility] 6720 (BEAKER) (test code [facility], = 1538) [address]: Fire Chief Deputy/Techni diaz ID = [id number] for RED MCKEE POCT-GLUCOSE [id number] 03:51:00 Test Item Value Reference Range Interpretation Comments POC-GLUCOSE METER 188 mg/dL 70-110 H : TESTED A T [facility] 6720 (BEAKER) (test code = LATOYA Herve [facility], 1538) [address]: Fire Chief Deputy/Techni diaz ID = [id number] for DEE THERESAHAZEL AREVALO BASIC METABOLIC [id number] 03:35:28 Test Item Value Reference Range Interpretation [...] S NOT APPLICABLE FOR DIALYSIS PATIEN TS. Fire Chief Deputy ID - SHANITA MSpecimen moderately ictericB-TYPE NATRIURETIC FACTOR (BNP) 2022-01-20 03:16:05 Test Item Value Reference Range Interpretation Comments B-TYPE NATRIURETIC PEPTIDE (BEAKER) 319 pg/mL 0-100 H (test code = 700) Fire Chief Deputy ID Junie DIEHL MHIGH SENSITIVITY TROPONIN [id number] 03:16:00 Test Item Value Reference Range Interpretation Comments HIGH SENSITIVITY 35 pg/ml See_Comment [Automated message] TROPONIN I (test code = The system which 5078539) generated this result transmitted ref erence range: <=35. Th e reference range was not used to int erpret this result as normal/abnormal . Fire Chief Deputy ID - SHANITA MThe SUPPORT ANALYST STAT High Sensitivity Troponin-I results should be used in conjunction with other diagnostic information such as ECG, clinical observations and information, and patient symptoms to aid in the diagnosis of [place].HEPATIC FUNCTION [id number] 03:14:30 Test Item Value Reference Range Interpretation [...] code = 666 U/L 6-55 H 347) Fire Chief Deputy ID - SHANITA MSpecimen moderately hocdzwhTAAVYVTKZ2365-82-58 03:14:29 Test Item Value Reference Range Interpretation Comments MAGNESIUM (BEAKER) (test code = 1.6 mg/dL 1.6-2.6 627) Fire Chief Deputy ID Junie DIEHL MLIPID [id number] 03:14:29 Test Item Value Reference Range Interpretation [...] Borderline 130-159 High 160-189 Very High >=190 Fire Chief Deputy ID - SHANITA MSpecimen moderately ictericCBC W/PLT COUNT & AUTO [id number] 02:51:43 Test Item Value Reference Range Interpretation [...] Interpretation Comments POCT GLU (test code = 5296254822) 133 mg/dL 70-110 H Lab Interpretation (test code = Abnormal 43004-0) [facility] 17:13:00 Test Item Value Reference Range Interpretation Comments POCT GLU (test code = 7326120663) 154 mg/dL 70-110 H Lab Interpretation (test code = Abnormal 22861-3) [facility]ST 1 [id number] 14:00:56HISTORY: Follow-up of CHF. TECHNIQUE: AP view [...] ifany, residual pulmonary edema seen at this time.Dcmb, Radiant Results Inft User - 06/04/2020 9:02 [...] ifany, residual pulmonary edema seen at this time.[facility] GLUCOSE (AUTOMATED)2020-06-04 13:19:00 Test Item Value Reference Range Interpretation Comments POCT GLU (test code = 1857865119) 98 mg/dL 70-110 Lab Interpretation (test code = Normal 96412-7) [facility] GLUCOSE (AUTOMATED)2020-06-04 01:35:00 Test Item Value Reference Range Interpretation Comments POCT GLU (test code = 8320829337) 192 mg/dL 70-110 H Lab Interpretation (test code = Abnormal 70126-4) [facility] GLUCOSE (AUTOMATED)2020-06-03 21:51:00 Test Item Value Reference Range Interpretation Comments POCT GLU (test code = 3121070786) 98 mg/dL 70-110 Lab Interpretation (test code = Normal 56349-1) [facility] GLUCOSE (AUTOMATED)2020-06-03 17:28:00 Test Item Value Reference Range Interpretation Comments POCT GLU (test code = 1574010909) 195 mg/dL 70-110 H Lab Interpretation (test code = Abnormal 57784-1) [facility] GLUCOSE (AUTOMATED)2020-06-03 13:43:00 Test Item Value Reference Range Interpretation Comments POCT GLU (test code = 9196434744) 98 mg/dL 70-110 Lab Interpretation (test code = Normal 66513-0) [facility] WITH [id number] 13:10:00 Test Item Value Reference Range Interpretation [...] RDW-SD (test code = 46.4 fL 38.5-51.6 20827-9) RDW-CV (test code = 13.7 % 12.1-15.4 788-0) PLT (test code = See_Comment L [Automated 777-3) message] The sy stem which generated this result transmitted reference range : 150 - 328 10*3/ ?L. The reference r martin was not used to interpret this result as normal/abnormal . MPV (test code = 10.5 fL 9.8-13 43722-7) NRBC/100 WBC (test See_Comment [Automat ed code = 6353881237) message] The system which generated this result transmitted reference range : 0.0 - 10.0 /100 WBCs. The refer ence range was not u sed to interpret th is result as normal/abnormal . NRBC x10^3 (test code <0.01 See_Comment [Auto mated = 5828349188) message] The s ystem which generated this result transmitted reference range : 10*3/?L. The reference range was not used to interpret this result as normal/abnormal . GRAN MAT (NEUT) % 55.9 % (test code = 770-8) IMM GRAN % (test code 0.40 % = 5055369799) LYMPH % (test code = 16.5 % 736-9) MONO % (test code = 12.4 % 5905-5) EOS % (test code = 14.0 % 713-8) BASO % (test code = 0.8 % 706-2) GRAN MAT x10^3(ANC) 1.35 10*3/uL 1.99-6.95 L (test code = 4107579566) IMM GRAN x10^3 (test <0.03 0-0.06 code = 4456694435) LYMPH x10^3 (test code 0.40 10*3/uL 1.09-3.23 L = 731-0) MONO x10^3 (test code 0.30 10*3/uL 0.36-1.02 L = 742-7) EOS x10^3 (test code = 0.34 10*3/uL 0.06-0.53 711-2) BASO x10^3 (test code <0.03 0.01-0.09 = 704-7) Lab Interpretation Abnormal (test code = 88917-9) [facility]le[facility] METABOLIC PANEL (36015)2020-06-03 12:46:00 Test Item Value Reference Range Interpretation Comments NA (test code = 136 mmol/L 135-145 7589468514) K (test code = 3.9 mmol/L 3.5-5 1976404826) CL (test code = 100 mmol/L 98-108 5894666563) CO2 TOTAL (test code = 27 mmol/L 23-31 5505678035) AGAP (test code = 2-16 2433087785) BUN (test code = 37 mg/dL 7-23 H 0988600009) GLUCOSE (test code = 87 mg/dL 70-110 6582831172) CREATININE (test code = 1.85 mg/dL 0.6-1.25 H 7988683691) TOTAL BILI (test code = 0.4 mg/dL 0.1-1.9 1682382802) CALCIUM (test code = 9.4 mg/dL 8.6-10.6 8335131582) T PROTEIN (test code = 6.3 g/dL 6.3-8.2 4220289901) ALBUMIN (test code = 3.2 g/dL 3.5-5 L 3777275705) ALK PHOS (test code = 58 U/L 34-122 0798791666) ALTv (test code = 22 U/L 5-50 1742-6) AST(SGOT) (test code = 31 U/L 13-40 1027516295) eGFR Calculation mL/min/1.73m2 (Non-) (test code = 9354367643) eGFR Calculation mL/min/1.73m2 () (test code = 0859007668) EMIR (test code = EMIR) Association of [...] tests). Lab Interpretation Abnormal (test code = 39959-0) [facility]2020-06-03 01:56:00 Test Item Value Reference Range Interpretation Comments POCT GLU (test code = 7412600674) 152 mg/dL 70-110 H Lab Interpretation (test code = Abnormal 46553-4) [facility]leMOD BARIUM SWALLOW, (COOKIE)2020-06-02 23:24:43 Flash laryngeal penetration [...] nectar thick liquid, puree or jewelry solids. Dcmb, Radiant Results Inft User- 06/02/2020 6:25 PM [...] to the speech pathologist's report for further details.[facility] GLUCOSE (AUTOMATED)2020-06-02 21:24:00 Test Item Value Reference Range Interpretation Comments POCT GLU (test code = 129 mg/dL 70-110 H Notifi ed Provider [id number]) Lab Interpretation (test Abnormal code = 17156-6) [facility] GLUCOSE (AUTOMATED)2020-06-02 17:12:00 Test Item Value Reference Range Interpretation Comments POCT GLU (test code = 159 mg/dL 70-110 H Notifi ed Provider 4879394822) Lab Interpretation (test Abnormal code = 50189-6) [facility] WITH [id number] 14:34:00 Test Item Value Reference Range Interpretation Comments WBC (test code = See_Comment L [Automated 3790-2) message] The sy stem which generated this result transmitted reference range : 4.20 - 10.70 10*3/?L. The reference range was not used to interpret this result as normal/abnormal . RBC (test code = See_Comment L [Automated 169-8) message] The sy stem which generated this [...] RDW-SD (test code = 46.7 fL 38.5-51.6 12457-7) RDW-CV (test code = 13.9 % 12.1-15.4 788-0) PLT (test code = See_Comment [Automated 777-3) message] The sy stem which generated this result transmitted reference range : 150 - 328 10*3/ ?L. The reference r martin was not used to interpret this result as normal/abnormal . MPV (test code = 10.4 fL 9.8-13 38572-6) NRBC/100 WBC (test See_Comment [Automat ed code = 1786652269) message] The system which generated this result transmitted reference range : 0.0 - 10.0 /100 WBCs. The refer ence range was not u sed to interpret th is result as normal/abnormal . NRBC x10^3 (test code <0.01 See_Comment [Auto mated = 2868988989) message] The s ystem which generated this result transmitted reference range : 10*3/?L. The reference range was not used to interpret this result as normal/abnormal . GRAN MAT (NEUT) % 58.9 % (test code = 770-8) IMM GRAN % (test code 0.40 % = 1281822863) LYMPH % (test code = 11.3 % 736-9) MONO % (test code = 10.8 % 5905-5) EOS % (test code = 17.3 % 713-8) BASO % (test code = 1.3 % 706-2) GRAN MAT x10^3(ANC) 1.36 10*3/uL 1.99-6.95 L (test code = 8002304714) IMM GRAN x10^3 (test <0.03 0-0.06 code = 3872967492) LYMPH x10^3 (test code 0.26 10*3/uL 1.09-3.23 L = 731-0) MONO x10^3 (test code 0.25 10*3/uL 0.36-1.02 L = 742-7) EOS x10^3 (test code = 0.40 10*3/uL 0.06-0.53 711-2) BASO x10^3 (test code 0.03 10*3/uL 0.01-0.09 = 704-7) Lab Interpretation Abnormal (test code = 77067-5) [facility]2020-06-02 13:45:00 Test Item Value Reference Range Interpretation Comments POCT GLU (test code = 2699643077) 105 mg/dL 70-110 Lab Interpretation (test code = Normal 60711-8) [facility]leBLOOD CULTURE [id number] 13:39:00 Test Item Value Reference Range Interpretation Comments Blood Culture Staphylococcus Organism elvia ntified Workup (test epidermidis by DNA probeFor code = 600-7) susceptibility results, refer to culture # - [id number] Gram stain Gram positive cocci Anaerobi c Bottle (test code = 664-3) [facility]. METABOLIC PANEL (81134)2020-06-02 13:10:00 Test Item Value Reference Range Interpretation Comments NA (test code = 133 mmol/L 135-145 L 0646810586) K (test code = 3.4 mmol/L 3.5-5 L 1521324127) CL (test code = 96 mmol/L 98-108 L 9646589471) CO2 TOTAL (test code = 28 mmol/L 23-31 0805717499) AGAP (test code = 2-16 9456883414) BUN (test code = 34 mg/dL 7-23 H 1815488904) GLUCOSE (test code = 135 mg/dL 70-110 H 3353334830) CREATININE (test code = 1.83 mg/dL 0.6-1.25 H 3018032854) TOTAL BILI (test code = 0.4 mg/dL 0.1-1.9 8824426509) CALCIUM (test code = 9.4 mg/dL 8.6-10.6 7387999718) T PROTEIN (test code = 6.0 g/dL 6.3-8.2 L 4926690858) ALBUMIN (test code = 3.1 g/dL 3.5-5 L 3595594378) ALK PHOS (test code = 52 U/L 34-122 6639044342) ALTv (test code = 25 U/L 5-50 1742-6) AST(SGOT) (test code = 31 U/L 13-40 3698763255) eGFR Calculation mL/min/1.73m2 (Non-) (test code = 8735265921) eGFR Calculation mL/min/1.73m2 () (test code = 2021464586) EMIR (test code = EMIR) Association of [...] tests). Lab Interpretation Abnormal (test code = 48024-4) [facility]2020-[facility]-14 13:10:00 Test Item Value Reference Range Interpretation Comments MAGNESIUM (test code = 6198764290) 1.8 mg/dL 1.7-2.4 Lab Interpretation (test code = Normal 06198-0) [facility] AzleMYCOPLASMA PNEUMONIAE ANTIBODY, [id number] 11:34:00 Test Item Value Reference Range Interpretation [...] e- ?specific IgM a ntibody ?detected. Ho sera, low levels ? of IgM antibodies may ?occasionally p ersist for more ?th an 12 months post-infection. Performed By: YUMIKO amado[address] [place] [id number] aboratory Director: Julisa Choi MD [Aut omated message] The sy stem which generated this result transmit moshe reference range : <=0.76. The reference r martin was not used to int erpret this result as normal/abnormal . [facility] [id number] 22:31:00 Test Item Value Reference Range Interpretation Comments Blood Culture-Aerobic Culture positive. No growth AA P revious (test code = 76926-5) See Blood prelim inary Culture Workup verified resu lt for additional was Culture I n information. Progress on 05/30/2020 at 03 19 CDT Blood Culture positive. No growth AA Previous Culture-Anaerobic See Blood preliminar y (test code = 54320-9) Culture Workup veri fied result for additional was Culture I n information. Progress on 05/30/2020 at 03 19 CDT Lab Interpretation Abnormal (test code = 99950-3) [facility] GLUCOSE (AUTOMATED)2020-06-01 21:59:00 Test Item Value Reference Range Interpretation Comments POCT GLU (test code = 7447866043) 101 mg/dL 70-110 Lab Interpretation (test code = Normal 94716-2) [facility] GLUCOSE (AUTOMATED)2020-06-01 17:53:00 Test Item Value Reference Range Interpretation Comments POCT GLU (test code = 6002439080) 184 mg/dL 70-110 H Lab Interpretation (test code = Abnormal 77082-6) [facility] [id number] 17:20:00 Test Item Value Reference Range Interpretation Comments Blood Culture-Aerobic Culture positive. No growth AA P revious (test code = 03592-0) See Blood prelim inary Culture Workup verified resu lt for additional was Culture I n information. Progress on 05/30/2020 at 03 19 CDT Blood Culture positive. No growth AA Previous Culture-Anaerobic See Blood preliminar y (test code = 21659-3) Culture Workup veri fied result for additional was Culture I n information. Progress on 05/30/2020 at 03 19 CDT Lab Interpretation Abnormal (test code = 56362-9) [facility] GLUCOSE (AUTOMATED)2020-06-01 13:22:00 Test Item Value Reference Range Interpretation Comments POCT GLU (test code = 4790469411) 109 mg/dL 70-110 Lab Interpretation (test code = Normal 85050-8) [facility] [id number] 11:12:00 Test Item Value Reference Range Interpretation [...] RDW-SD (test code = 46.0 fL 38.5-51.6 08600-7) RDW-CV (test code = 13.8 % 12.1-15.4 788-0) PLT (test code = See_Comment L [Automated 777-3) message] The sy stem which generated this result transmitted reference range : 150 - 328 10*3/ ?L. The reference r martin was not used to interpret this result as normal/abnormal . MPV (test code = 10.3 fL 9.8-13 96615-1) NRBC/100 WBC (test See_Comment [Automat ed code = 3862325340) message] The system which generated this result transmitted reference range : 0.0 - 10.0 /100 WBCs. The refer ence range was not u sed to interpret th is result as normal/abnormal . NRBC x10^3 (test code <0.01 See_Comment [Auto mated = 7381552736) message] The s ystem which generated this result transmitted reference range : 10*3/?L. The reference range was not used to interpret this result as normal/abnormal . GRAN MAT (NEUT) % 71.9 % (test code = 770-8) IMM GRAN % (test code 0.30 % = 4698089250) LYMPH % (test code = 8.0 % 736-9) MONO % (test code = 10.5 % 5905-5) EOS % (test code = 8.4 % 713-8) BASO % (test code = 0.9 % 706-2) GRAN MAT x10^3(ANC) 2.32 10*3/uL 1.99-6.95 (test code = 1896639646) IMM GRAN x10^3 (test <0.03 0-0.06 code = 5952973302) LYMPH x10^3 (test code 0.26 10*3/uL 1.09-3.23 L = 731-0) MONO x10^3 (test code 0.34 10*3/uL 0.36-1.02 L = 742-7) EOS x10^3 (test code = 0.27 10*3/uL 0.06-0.53 711-2) BASO x10^3 (test code 0.03 10*3/uL 0.01-0.09 = 704-7) Lab Interpretation Abnormal (test code = 06911-2) [facility] [id number] 11:07:00 Test Item Value Reference Range Interpretation Comments NT-proBNP (test code 25963 pg/mL See_Comment H [Autom ated = 2215817000) message] The system which generated this result transmitted reference range : <=450. The reference range was not used to interpret this result as normal/abnormal . EMIR (test code = EMIR) Biotin has been reported to cause a negative bias, interpret results relative to patient's use of biotin. Lab Interpretation Abnormal (test code = 28918-4) [facility] METABOLIC PANEL ([id number])2020-06-01 11:03:00 Test Item Value Reference Range Interpretation Comments NA (test code = 136 mmol/L 135-145 9067200526) K (test code = 3.9 mmol/L 3.5-5 8148571356) CL (test code = 97 mmol/L 98-108 L 6442829031) CO2 TOTAL (test code = 30 mmol/L 23-31 3181025793) AGAP (test code = 2-16 1334640217) BUN (test code = 34 mg/dL 7-23 H 9569079066) GLUCOSE (test code = 112 mg/dL 70-110 H 3224754412) CREATININE (test code = 1.81 mg/dL 0.6-1.25 H 1174569817) TOTAL BILI (test code = 0.5 mg/dL 0.1-1.3 5451509718) CALCIUM (test code = 9.5 mg/dL 8.6-10.6 6375107055) T PROTEIN (test code = 6.2 g/dL 6.3-8.2 L 2437853456) ALBUMIN (test code = 3.2 g/dL 3.5-5 L 4187896333) ALK PHOS (test code = 58 U/L 34-122 6702528830) ALTv (test code = 32 U/L 5-50 1742-6) AST(SGOT) (test code = 38 U/L 13-40 6269840849) eGFR Calculation mL/min/1.73m2 (Non-) (test code = 9101792192) eGFR Calculation mL/min/1.73m2 () (test code = 6608733149) EMIR (test code = EMIR) Association of [...] tests). Lab Interpretation Abnormal (test code = 52992-7) [facility]2020-09-13 11:03:00 Test Item Value Reference Range Interpretation Comments MAGNESIUM (test code = 7311050670) 2.0 mg/dL 1.7-2.4 Lab Interpretation (test code = Normal 40517-6) [facility] VENOUS BLOOD [id number] 10:21:00 Test Item Value Reference Range Interpretation Comments PH (test code = 7.32-7.42 9279057428) PCO2 GIFTY (test code = See_Comment [Auto mated message] The 1784802662) system which [employer] nerated this result transmit moshe reference range : 41 - 51 mmHg. The refer ence range was not used to interpret this result as normal/abnormal . PO2 GIFTY (test code = See_Comment [Autom ated message] The 0619490054) system which [employer] nerated this result transmit moshe reference range : 25 - 40 mmHg. The refer ence range was not used to interpret this result as normal/abnormal . HCO3 GIFTY (test code = See_Comment [Auto mated message] The 7807546835) system which [employer] nerated this result transmit moshe reference range : 24 - 28 mEq/L. The refe rence range was not used to interpret this result as normal/abnormal . AC VBE(BEAKER) (test mEq/L code = 5453847545) [facility] GLUCOSE (AUTOMATED)2020-06-01 01:53:00 Test Item Value Reference Range Interpretation Comments POCT GLU (test code = 0171809705) 124 mg/dL 70-110 H Lab Interpretation (test code = Abnormal 28797-4) [facility] GLUCOSE (AUTOMATED)2020-05-31 22:35:00 Test Item Value Reference Range Interpretation Comments POCT GLU (test code = 3515853525) 105 mg/dL 70-110 Lab Interpretation (test code = Normal 23456-4) [facility] GLUCOSE (AUTOMATED)2020-05-31 17:52:00 Test Item Value Reference Range Interpretation Comments POCT GLU (test code = 7341963304) 106 mg/dL 70-110 Lab Interpretation (test code = Normal 16167-3) [facility]leAMMONIA, [id number] 17:33:00 Test Item Value Reference Range Interpretation Comments AMMONIA (test code = 6617241407) <9 9-33 L Lab Interpretation (test code = Abnormal 20986-5) [facility]leGRAM POSITIVE BLOOD PATHOGENS DNA [id number] 14:44:00 Test Item Value Reference Range Interpretation Comments Coagulase Negative Positive Negative A Staphylococcus (test code = 28704-2) EMIR (test code = EMIR) Coagulase negative [...] contact the Antimicrobial Stewardship Program with questions.Pager: ?[phone] Testing included eleven identification and three resistance marker targets. Lab Interpretation Abnormal (test code = 80483-0) [facility]2020-05-31 13:09:00 Test Item Value Reference Range Interpretation Comments POCT GLU (test code = 2240203147) 154 mg/dL 70-110 H Lab Interpretation (test code = Abnormal 73053-1) [facility] [id number] 12:11:00 Test Item Value Reference Range Interpretation Comments URINE CULTURE (test No aerobic growth (< code = 630-4) 1000 CFU/mL) [facility]leN-TERMINAL [id number] 11:51:00 Test Item Value Reference Range Interpretation Comments NT-proBNP (test code 60887 pg/mL See_Comment H [Autom ated = 3980964461) message] The system which generated this result transmitted reference range : <=450. The reference range was not used to interpret this result as normal/abnormal . EMIR (test code = EMIR) Biotin has been reported to cause a negative bias, interpret results relative to patient's use of biotin. Lab Interpretation Abnormal (test code = 53555-2) [facility]leURIC [id number] 11:25:00 Test Item Value Reference Range Interpretation Comments URIC ACID (test code = 2014733713) 9.0 mg/dL 3.6-8 H Lab Interpretation (test code = Abnormal 44241-4) [facility] WITH [id number] 11:02:00 Test Item Value Reference Range Interpretation [...] RDW-SD (test code = 47.7 fL 38.5-51.6 44251-3) RDW-CV (test code = 14.0 % 12.1-15.4 788-0) PLT (test code = See_Comment L [Automated 777-3) message] The sy stem which generated this result transmitted reference range : 150 - 328 10*3/ ?L. The reference r martin was not used to interpret this result as normal/abnormal . MPV (test code = 10.5 fL 9.8-13 14948-7) NRBC/100 WBC (test See_Comment [Automat ed code = 6578219292) message] The system which generated this result transmitted reference range : 0.0 - 10.0 /100 WBCs. The refer ence range was not u sed to interpret th is result as normal/abnormal . NRBC x10^3 (test code <0.01 See_Comment [Auto mated = 0693187427) message] The s ystem which generated this result transmitted reference range : 10*3/?L. The reference range was not used to interpret this result as normal/abnormal . GRAN MAT (NEUT) % 81.0 % (test code = 770-8) IMM GRAN % (test code 0.40 % = 3516263926) LYMPH % (test code = 4.8 % 736-9) MONO % (test code = 11.5 % 5905-5) EOS % (test code = 1.7 % 713-8) BASO % (test code = 0.6 % 706-2) GRAN MAT x10^3(ANC) 4.23 10*3/uL 1.99-6.95 (test code = 3568891591) IMM GRAN x10^3 (test <0.03 0-0.06 code = 6042532029) LYMPH x10^3 (test code 0.25 10*3/uL 1.09-3.23 L = 731-0) MONO x10^3 (test code 0.60 10*3/uL 0.36-1.02 = 742-7) EOS x10^3 (test code = 0.09 10*3/uL 0.06-0.53 711-2) BASO x10^3 (test code 0.03 10*3/uL 0.01-0.09 = 704-7) Lab Interpretation Abnormal (test code = 66546-3) [facility] [id number] 10:45:00 Test Item Value Reference Range Interpretation Comments TROPONIN I (test 0.167 ng/mL See_Comment H [Automated code = 6502309285) message] The system which generated this result [...] ? Lab Interpretation Abnormal (test code = 56642-1) [facility]. METABOLIC PANEL (58314)2020-05-31 10:35:00 Test Item Value Reference Range Interpretation Comments NA (test code = 133 mmol/L 135-145 L 4451124390) K (test code = 3.4 mmol/L 3.5-5 L 4560776615) CL (test code = 95 mmol/L 98-108 L 0434758678) CO2 TOTAL (test code = 29 mmol/L 23-31 0214580937) AGAP (test code = 2-16 6720936998) BUN (test code = 36 mg/dL 7-23 H 5851154612) GLUCOSE (test code = 136 mg/dL 70-110 H 3008646727) CREATININE (test code = 1.71 mg/dL 0.6-1.25 H 9731571879) TOTAL BILI (test code = 0.8 mg/dL 0.1-1.1 0243543396) CALCIUM (test code = 9.4 mg/dL 8.6-10.6 4123486098) T PROTEIN (test code = 6.5 g/dL 6.3-8.2 5735779309) ALBUMIN (test code = 3.4 g/dL 3.5-5 L 4420502517) ALK PHOS (test code = 59 U/L 34-122 2404383818) ALTv (test code = 35 U/L 5-50 1742-6) AST(SGOT) (test code = 42 U/L 13-40 H 2577005228) eGFR Calculation mL/min/1.73m2 (Non-) (test code = 8338267600) eGFR Calculation mL/min/1.73m2 () (test code = 4290670125) EMIR (test code = EMIR) Association of [...] tests). Lab Interpretation Abnormal (test code = 13329-3) [facility] Test Item Value Reference Range Interpretation Comments MAGNESIUM (test code = 9285013875) 1.4 mg/dL 1.7-2.4 L Lab Interpretation (test code = Abnormal 52207-3) [facility] GLUCOSE (AUTOMATED)2020-05-30 21:17:00 Test Item Value Reference Range Interpretation Comments POCT GLU (test code = 8046264495) 105 mg/dL 70-110 Lab Interpretation (test code = Normal 76731-4) [facility]lePNEUMOCOCCAL [id number] 19:20:00 Test Item Value Reference Range Interpretation Comments S. pneumoniae antigen Positive Negative A (test code = 3622691235) EMIR (test code = EMIR) S. pneumoniae vaccine may give false positive results in urine with this assay in the 48 hours following vaccination. Lab Interpretation (test Abnormal code = 79564-4) [facility]leLEGIONELLA URINARY ANTIGEN [id number] 19:20:00 Test Item Value Reference Range Interpretation Comments Legionella Urinary Negative Negative Antigen (test code = 9939579012) EMIR (test code = EMIR) Negative for [...] test. Lab Interpretation (test Normal code = 04922-7) [facility]leCORTISOL [id number] 18:48:00 Test Item Value Reference Range Interpretation Comments SHAYY AM (test code = 23.8 ug/dL 4.5-23 H 6073572322) EMIR (test code = EMIR) Biotin has been reported to cause a positive bias, interpret results relative to patient's use of biotin. Lab Interpretation (test Abnormal code = 31563-8) [facility] GLUCOSE (AUTOMATED)2020-05-30 17:17:00 Test Item Value Reference Range Interpretation Comments POCT GLU (test code = 2261628141) 117 mg/dL 70-110 H Lab Interpretation (test code = Abnormal 81181-3) [facility]leTROPONIN [id number] 17:14:00 Test Item Value Reference Range Interpretation Comments TROPONIN I (test 0.222 ng/mL See_Comment H [Automated code = 8165712018) message] The system which generated this result [...] ? Lab Interpretation Abnormal (test code = 20390-5) [facility]leOSMOLALITY [id number] 16:53:00 Test Item Value Reference Range Interpretation Comments OSMO U (test code = See_Comment [Automa moshe message] 8453525515) The system [employer] generated this result transmitted ref erence range: 50-1,100 mOsm/kg. The re ference range was not u sed to interpret this result as normal/abnor mal. Lab Interpretation (test Normal code = 46894-3) [facility]leVITAMIN D, [id number] 16:43:00 Test Item Value Reference Range Interpretation Comments VIT D 25OH (test code = 29 ng/mL 25-80 69459-6) EMIR (test code = EMIR) Deficiency: <20 ng/mLInsufficiency : 20-24 ng/mLOptimal: 25-80 ng/mL Lab Interpretation (test Normal code = 77835-1) [facility]leUREA NITROGEN, URINE [id number] 15:44:00 Test Item Value Reference Range Interpretation Comments UREA N UR (test code = 4899679930) 114 mg/dL [facility]leCT THORAX WO [id number] 15:23:12 1. ?Pulmonary edema with moderate volume [...] sagittal MPR images were generated and reviewed.(Display vqyfn-ye-wkse = 35 cm) FINDINGS: Lower neck/thyroid: Unremarkable. [...] sagittal MPR images were generated and reviewed.(Display xqxvk-sm-bjef = 35 cm)FINDINGS:Lower neck/thyroid: Unremarkable.Lungs: Centrilobular septal [...] this study and agree with theabove report.[facility] 2020-05-30 14:53:00 Test Item Value Reference Range Interpretation Comments POCT GLU (test code = 4326607728) 100 mg/dL 70-110 Lab Interpretation (test code = Normal 83806-9) [facility]leVITAMIN B12, [id number] 13:07:00 Test Item Value Reference Range Interpretation Comments VIT B12 (test code = 412 pg/mL 240-930 6994001198) EMIR (test code = EMIR) Biotin has been reported to cause a positive bias, interpret results relative to patient's use of biotin. Lab Interpretation (test Normal code = 62593-0) [facility]leFOLATE2020-09-11 13:07:00 Test Item Value Reference Range Interpretation Comments FOLATE SER (test code = 8.4 ng/mL 3-20 Biot in has been 2615586425) reported to cau se a positive bias, interpret resul ts relative to patient's use o f biotin. Lab Interpretation (test Normal code = 14838-5) [facility]leCORONAVIRUS COVID-19 [id number] 12:49:00 Test Item Value Reference Range Interpretation Comments SARS-CoV-2 PCR (test Not Detected Not Detected code = 37287-8) EMIR (test code = EMIR) Oktalogicid Xpert ?Xpress SARS-CoV-2 Assay is a rapid, real-time RT-PCR test intended for the qualitative detection of nucleic acid from the SARS-CoV-2 in nasopharyngeal ([employer]) specimens. It is used under Emergency Use [...] indicated. Lab Interpretation Normal (test code = 75972-3) [facility]leRESPIRATORY PANEL BY [id number] 12:44:00 Test Item Value Reference Range Interpretation Comments Adenovirus (test code = Negative Negative 18268-4) Coronavirus HKU1 (test Negative Negative code = 75511-0) Coronavirus NL63 (test Negative Negative code = 96288-2) Coronavirus 229E (test Negative Negative code = 54538-7) Coronavirus OC43 (test Negative Negative code = 23842-5) Human Metapneumovirus Negative Negative (test code = 57965-0) Human Negative Negative Rhinovirus/Enterovirus (test code = 30219-8) Influenza A (test code = Negative Negative 49772-5) Influenza B (test code = Negative Negative 03051-0) Parainfluenza Virus 1 Negative Negative (test code = 34259-5) Parainfluenza Virus 2 Negative Negative (test code = 26596-6) Parainfluenza Virus 3 Negative Negative (test code = 58036-3) Parainfluenza Virus 4 Negative Negative (test code = 79763-1) Respiratory Syncytial Negative Negative Virus (test code = 75594-6) Bordetella parapertussis Negative Negative (test code = 62527-7) Bordetella pertussis Negative Negative (test code = 18718-5) Chlamydia pneumoniae Negative Negative (test code = 13875-2) Mycoplasma pneumoniae Negative Negative (test code = 01275-7) EMIR (test code = EMIR) Negative:A negative result does not rule-out infection. ?This assay does not test for all potential infectious agents. ? Positive:A positive test result does not necessarily indicate the presence of viable organism. ? Lab Interpretation (test Normal code = 92429-0) [facility]lePROCALCITONIN2020-09-11 12:14:00 Test Item Value Reference Range Interpretation Comments Procalcitonin (test 0.06 ng/mL <0.07 code = 5424672484) EMIR (test code = EMIR) INTERPRETATION OF [...] lung abscess/empyema. For further information please refer to:[email or web address] Lab Interpretation Normal (test code = 26294-6) [facility] AzleOSMOLALITY [id number] 11:49:00 Test Item Value Reference Range Interpretation Comments OSMOLALITY (test code = See_Comment [Au tomated message] 9085367345) The system [employer] generated this result transmitted ref erence range: 278 - 30 5 mOsm/kg. The re ference range was not u sed to interpret this result as normal/abnor mal. Lab Interpretation (test Normal code = 46766-2) [facility]leN-TERMINAL [id number] 11:19:00 Test Item Value Reference Range Interpretation Comments NT-proBNP (test code 97683 pg/mL See_Comment H [Autom ated = 6569861124) message] The system which generated this result transmitted reference range : <=450. The reference range was not used to interpret this result as normal/abnormal . EMIR (test code = EMIR) Biotin has been reported to cause a negative bias, interpret results relative to patient's use of biotin. Lab Interpretation Abnormal (test code = 24304-9) [facility] AzleSEDIMENTATION [id number] 11:01:00 Test Item Value Reference Range Interpretation Comments ESR (test code = See_Comment H [Automated message] 4994005437) The system [employer] generated this result transmitted ref erence range: 0 - 10 m m/HR. The reference r martin was not used to interpret this result as normal/abnor mal. Lab Interpretation (test Abnormal code = 68873-5) [facility]leTROPONIN [id number] 10:57:00 Test Item Value Reference Range Interpretation Comments TROPONIN I (test 0.233 ng/mL See_Comment H [Automated code = 5214275456) message] The system which generated this result [...] ? Lab Interpretation Abnormal (test code = 32097-3) [facility]leIRO [id number] 10:53:00 Test Item Value Reference Range Interpretation Comments IRON (test code = 1974489310) 37 ug/dL 50-160 L TIBC (test code = 3214732548) 259 ug/dL 250-410 % FE SAT (test code = 6778952444) 14 % 20-50 L Lab Interpretation (test code = Abnormal 80549-4) [facility]. METABOLIC PANEL (01941)2020-05-30 10:44:00 Test Item Value Reference Range Interpretation Comments NA (test code = 135 mmol/L 135-145 0607373022) K (test code = 4.3 mmol/L 3.5-5 4318054443) CL (test code = 98 mmol/L 98-108 6384303661) CO2 TOTAL (test code = 26 mmol/L 23-31 9832512222) AGAP (test code = 2-16 4602284647) BUN (test code = 29 mg/dL 7-23 H 4602523355) GLUCOSE (test code = 127 mg/dL 70-110 H 8221664012) CREATININE (test code = 1.38 mg/dL 0.6-1.25 H 2645484458) TOTAL BILI (test code = 0.9 mg/dL 0.1-1.4 0307589566) CALCIUM (test code = 9.4 mg/dL 8.6-10.6 4955381957) T PROTEIN (test code = 6.6 g/dL 6.3-8.2 4144455728) ALBUMIN (test code = 3.7 g/dL 3.5-5 7512336001) ALK PHOS (test code = 65 U/L 34-122 0594891479) ALTv (test code = 28 U/L 5-50 1742-6) AST(SGOT) (test code = 42 U/L 13-40 H 0430894346) eGFR Calculation mL/min/1.73m2 (Non-) (test code = 4628154155) eGFR Calculation mL/min/1.73m2 () (test code = 3715700757) EMIR (test code = EMIR) Association of [...] tests). Lab Interpretation Abnormal (test code = 91705-1) [facility]leMAGNESIUM2020-09-11 10:44:00 Test Item Value Reference Range Interpretation Comments MAGNESIUM (test code = 7458881109) 1.4 mg/dL 1.7-2.4 L Lab Interpretation (test code = Abnormal 12363-1) [facility]leURIC [id number] 10:44:00 Test Item Value Reference Range Interpretation Comments URIC ACID (test code = 4799617710) 7.8 mg/dL 3.6-8 Lab Interpretation (test code = Normal 93213-9) [facility]lePROTEIN CREAT RATIO URINE [id number] 10:29:00 Test Item Value Reference Range Interpretation Comments T. PROT U (test code = 104 mg/dL 2888-6) CREAT U (test code = 14.4 mg/dL 1844325324) Protein/Creatinine Ratio 0.0-2.0 H Urine (test code = 8105085920) EMIR (test code = EMIR) Random Urine Total Protein Reference Ranges Random Specimen: ? Less than 10 mg/dLFirst Morning Specimen: ? ?Less than 20 mg/dL ? Lab Interpretation (test Abnormal code = 75204-0) [facility] WITH [id number] 10:28:00 Test Item Value Reference Range Interpretation [...] RDW-SD (test code = 47.6 fL 38.5-51.6 54723-2) RDW-CV (test code = 14.2 % 12.1-15.4 788-0) PLT (test code = See_Comment L [Automated 777-3) message] The sy stem which generated this result transmitted reference range : 150 - 328 10*3/ ?L. The reference r martin was not used to interpret this result as normal/abnormal . MPV (test code = 10.5 fL 9.8-13 79710-4) NRBC/100 WBC (test See_Comment [Automat ed code = 5607410399) message] The system which generated this result transmitted reference range : 0.0 - 10.0 /100 WBCs. The refer ence range was not u sed to interpret th is result as normal/abnormal . NRBC x10^3 (test code <0.01 See_Comment [Auto mated = 8902082687) message] The s ystem which generated this result transmitted reference range : 10*3/?L. The reference range was not used to interpret this result as normal/abnormal . GRAN MAT (NEUT) % 83.1 % (test code = 770-8) IMM GRAN % (test code 0.40 % = 9355396125) LYMPH % (test code = 3.7 % 736-9) MONO % (test code = 11.8 % 5905-5) EOS % (test code = 0.4 % 713-8) BASO % (test code = 0.6 % 706-2) GRAN MAT x10^3(ANC) 4.52 10*3/uL 1.99-6.95 (test code = 8624487525) IMM GRAN x10^3 (test <0.03 0-0.06 code = 8582188935) LYMPH x10^3 (test code 0.20 10*3/uL 1.09-3.23 L = 731-0) MONO x10^3 (test code 0.64 10*3/uL 0.36-1.02 = 742-7) EOS x10^3 (test code = <0.03 0.06-0.53 L 711-2) BASO x10^3 (test code 0.03 10*3/uL 0.01-0.09 = 704-7) Lab Interpretation Abnormal (test code = 74109-2) [facility] [id number] 10:25:00 Test Item Value Reference Range Interpretation Comments NA URINE (test code = 2537748811) 123 mmol/L [facility] TIME / [id number] 08:09:00 Test Item Value Reference Range Interpretation Comments PROTIME PATIENT (test See_Comment [Auto mated message] code = 5964-2) The system [employer] generated this result transmitted ref erence range: 12.0 - 1 4.7 Seconds. The re ference range was not u sed to interpret this result as normal/abnor mal. INR (test code = 6301-6) Nor mal INR <1.1; Warfarin Therap eutic range 2.0 to 3. 0 or 2.5 to 3.5, dep ending upon the indica tions. Lab Interpretation (test Normal code = 20626-6) [facility]le[facility]YCOSYLATED HEMOGLOBIN (A1C)2020-05-30 07:33:00 Test Item Value Reference Range Interpretation Comments HGB A1C (test code = 5.4 % 4-6 4548-4) EMIR (test code = EMIR) %A1C (NGSP) Interpretation (ADA)4.8-5.6 ? ? Normal or (Non-Diabetic Range)5.7-6.4 ? ? Increased Risk (Pre-Diabetic)>6.5 ?Diabetes Indicated Lab Interpretation Normal (test code = 87775-1) [facility]leLIPID PANEL (88468)(TOTAL CHOLESTEROL, TRIGLYCERIDES, HDL)2020-05-30 07:20:00 Test Item Value Reference Range Interpretation Comments CHOL (test code = 174 mg/dL 120-200 3389134015) HDL (test code = 37 mg/dL >40 L 5678087740) HDLC RATIO (test code = See_Comment [Au tomated message] 3907367709) The system [employer] generated this result transmit moshe reference range : <=5.0. The refe rence range was not u sed to interpret th is result as normal/abnormal . TRIG (test code = 85 mg/dL 30-170 9697736581) LDL CHOL (test code = 120 mg/dL See_Comment [Auto mated message] 63621-2) The system [employer] generated this result transmit moshe reference range : <=160. The refe rence range was not u sed to interpret th is result as normal/abnormal . VLDL (test code = 17 mg/dL 5-60 9888851651) Lab Interpretation (test Abnormal code = 14657-4) [facility]leCREATINE [id number] 07:19:00 Test Item Value Reference Range Interpretation Comments CK (test code = 0323472755) 88 U/L 33-194 Lab Interpretation (test code = Normal 60900-0) [facility]le[facility]IC [id number] 07:19:00 Test Item Value Reference Range Interpretation Comments URIC ACID (test code = 0269179472) 7.9 mg/dL 3.6-8 Lab Interpretation (test code = Normal 54953-3) [facility]le[facility]ERRITIN [id number] 06:48:00 Test Item Value Reference Range Interpretation Comments FERRITIN (test code = 73.2 ng/mL 18-464 9331285213) EMIR (test code = EMIR) Biotin has been reported to cause a negative bias, interpret results relative to patient's use of biotin. Lab Interpretation (test Normal code = 28995-6) [facility]leTHYROID STIMULATING [id number] 06:46:00 Test Item Value Reference Range Interpretation Comments TSH (test code = See_Comment [Automated message] 6864396039) The system [employer] generated this result transmitted ref erence range: 0.45 - 4 .70 mIU/L. The refe rence range was not u sed to interpret this result as normal/abnor mal. Lab Interpretation (test Normal code = 75546-2) [facility]leMAGNESIUM2020-09-11 06:19:00 Test Item Value Reference Range Interpretation Comments MAGNESIUM (test code = 7906217657) 1.6 mg/dL 1.7-2.4 L Lab Interpretation (test code = Abnormal 81685-9) [facility]lePHOSPHORUS2020-09-11 06:19:00 Test Item Value Reference Range Interpretation Comments PHOSPHORUS (test code = 3029524392) 2.9 mg/dL 2.5-5 Lab Interpretation (test code = Normal 49825-2) [facility]INALYSIS2020-09-11 04:26:00 Test Item Value Reference Range Interpretation Comments APPEARANCE (test code = Clear Clear 0358148853) COLOR (test code = Yellow Yellow 0170800561) PH (test code = 4.8-8.0 1684301731) SP GRAVITY (test code = 1.003-1.030 8002311777) GLU U QUAL (test code = Normal Normal 6505282477) BLOOD (test code = 1+ Negative A 3293290661) KETONES (test code = Negative Negative 2693533574) PROTEIN (test code = 500 mg/dL Negative A 2887-8) UROBILIN (test code = Normal Normal 7975348144) BILIRUBIN (test code = Negative Negative 3023867724) NITRITE (test code = Negative Negative 8622413015) LEUK MARLENA (test code = Negative Negative 2111978406) RBC/HPF (test code = See_Comment H [Autom ated message] 8649355001) The system [employer] generated this result transmit moshe reference range : 0 - 3 HPF. The refe rence range was not u sed to interpret th is result as normal/abnormal . WBC/HPF (test code = See_Comment [Autom ated message] 7668335150) The system [employer] generated this result transmit moshe reference range : 0 - 5 HPF. The refe rence range was not u sed to interpret th is result as normal/abnormal . BACTERIA (test code = Few Negative A 1493863402) MUCOUS (test code = Slight Negative LPF A 4531861675) HYAL CAST (test code = See_Comment H [Aut omated message] 1779986599) The system [employer] generated this result transmit moshe reference range : <=2 LPF. The refere nce range was not u sed to interpret th is result as normal/abnormal . GRAN CASTS (test code = See_Comment H [Au tomated message] 5939627583) The system [employer] generated this result transmit moshe reference range : <=1 LPF. The refere nce range was not u sed to interpret th is result as normal/abnormal . Lab Interpretation (test Abnormal code = 06323-8) [facility]leXR CHEST 1 [id number] 03:33:16 Multifocal interstitial and airspace opacities are concerning forbronchopneumonia. These findings can also be seen with atypical infectiousprocess, including COVID-19 pneumonia. Disclaimer: Generally,the findings on chest imaging in COVID-19 are notspecific, and overlap with other infections, including influenza, H1N1,SARS and MERS.According to the Centers for Disease Control (CDC) and recent statement ofthe [employer], viral testing remains the [...] Disease Control (CDC) and recent statement ofthe [employer], viral testing remains the only specificmethod of diagnosis. Confirmation with the viral test is required, even ifradiologic findings are suggestive of COVID-[address]Preliminary Report Dictated by Resident: Ming Ivan MD., have reviewed this study and agree with the abovereport.[facility]leCOVID-19 (ID NOW RAPID TESTING)2020-05-30 01:54:00 Test Item Value Reference Range Interpretation Comments SARS-CoV-2 Rapid ID NOW Not Detected Not Detected (test code = 35670-6) EMIR (test code = EMIR) ID NOW COVID-19 Assay is an isothermal nucleic acid amplification test intended for the qualitative detection of nucleic acid from SARS-CoV-2 viral RNA in nasopharyngeal ([employer]) specimens. It is used under Emergency Use [...] indicated. Lab Interpretation Normal (test code = 28922-1) [facility]leTROPONIN [id number] 01:52:00 Test Item Value Reference Range Interpretation Comments TROPONIN I (test 0.148 ng/mL See_Comment H [Automated code = 3305504474) message] The system which generated this result [...] ? Lab Interpretation Abnormal (test code = 90501-5) [facility]leN-TERMINAL [id number] 01:49:00 Test Item Value Reference Range Interpretation Comments NT-proBNP (test code 02873 pg/mL See_Comment H [Autom ated = 6755825920) message] The system which generated this result transmitted reference range : <=450. The reference range was not used to interpret this result as normal/abnormal . EMIR (test code = EMIR) Biotin has been reported to cause a negative bias, interpret results relative to patient's use of biotin. Lab Interpretation Abnormal (test code = 61645-9) [facility] AzleCOMP. METABOLIC PANEL (65625)2020-05-30 01:41:00 Test Item Value Reference Range Interpretation Comments NA (test code = 135 mmol/L 135-145 3556791897) K (test code = 4.0 mmol/L 3.5-5 4108611954) CL (test code = 98 mmol/L 98-108 7629415257) CO2 TOTAL (test code = 27 mmol/L 23-31 5056666619) AGAP (test code = 2-16 2810638226) BUN (test code = 27 mg/dL 7-23 H 9868090336) GLUCOSE (test code = 143 mg/dL 70-110 H 6253494695) CREATININE (test code = 1.51 mg/dL 0.6-1.25 H 2157265044) TOTAL BILI (test code = 0.6 mg/dL 0.1-1.7 0220396320) CALCIUM (test code = 9.5 mg/dL 8.6-10.6 7066327274) T PROTEIN (test code = 6.9 g/dL 6.3-8.2 2107761260) ALBUMIN (test code = 3.9 g/dL 3.5-5 9421195010) ALK PHOS (test code = 78 U/L 34-122 0052199030) ALTv (test code = 29 U/L 5-50 1742-6) AST(SGOT) (test code = 37 U/L 13-40 6470151932) eGFR Calculation mL/min/1.73m2 (Non-) (test code = 9383392855) eGFR Calculation mL/min/1.73m2 () (test code = 4895271618) EMIR (test code = EMIR) Association of [...] tests). Lab Interpretation Abnormal (test code = 47858-2) [facility] HEAD WO [id number] 01:40:13 No acute intracranial hemorrhage or mass [...] ethmoid aircell.IMPRESSIONNo acute intracranial hemorrhage or mass effect.[facility] GLUCOSE (AUTOMATED)2020-05-30 01:23:00 Test Item Value Reference Range Interpretation Comments POCT GLU (test code = 0756929044) 130 mg/dL 70-110 H Lab Interpretation (test code = Abnormal 69393-4) [facility] WITH [id number] 01:22:00 Test Item Value Reference Range Interpretation [...] RDW-SD (test code = 46.8 fL 38.5-51.6 23470-1) RDW-CV (test code = 13.9 % 12.1-15.4 788-0) PLT (test code = See_Comment [Automated 777-3) message] The sy stem which generated this result transmitted reference range : 150 - 328 10*3/ ?L. The reference r martin was not used to interpret this result as normal/abnormal . MPV (test code = 9.9 fL 9.8-13 16264-4) NRBC/100 WBC (test See_Comment [Automat ed code = 2566111898) message] The system which generated this result transmitted reference range : 0.0 - 10.0 /100 WBCs. The refer ence range was not u sed to interpret th is result as normal/abnormal . NRBC x10^3 (test code <0.01 See_Comment [Auto mated = 7572330549) message] The s ystem which generated this result transmitted reference range : 10*3/?L. The reference range was not used to interpret this result as normal/abnormal . GRAN MAT (NEUT) % 82.3 % (test code = 770-8) IMM GRAN % (test code 0.50 % = 1858748341) LYMPH % (test code = 5.5 % 736-9) MONO % (test code = 10.6 % 5905-5) EOS % (test code = 0.6 % 713-8) BASO % (test code = 0.5 % 706-2) GRAN MAT x10^3(ANC) 5.23 10*3/uL 1.99-6.95 (test code = 4423852472) IMM GRAN x10^3 (test 0.03 10*3/uL 0-0.06 code = 8808851457) LYMPH x10^3 (test code 0.35 10*3/uL 1.09-3.23 L = 731-0) MONO x10^3 (test code 0.67 10*3/uL 0.36-1.02 = 742-7) EOS x10^3 (test code = 0.04 10*3/uL 0.06-0.53 L 711-2) BASO x10^3 (test code 0.03 10*3/uL 0.01-0.09 = 704-7) Lab Interpretation Abnormal (test code = 95626-8) [facility] ABG + LACTIC [id number] 01:14:00 Test Item Value Reference Range Interpretation Comments PH (test code = 2) 7.35-7.45 PCO2 (test code = See_Comment [Automat ed 7415533671) message] The sy stem which generated this result transmitted reference range : 35 - 45 mmHg. The reference range was not used to interpret this result as normal/abnormal . PO2 (test code = See_Comment H [Automated 1145725075) message] The sy stem which generated this result transmitted reference range : 80 - 100 mmHg. The reference range was not used to interpret this result as normal/abnormal . HCO3 (test code = See_Comment [Automate d 6790635732) message] The sy stem which generated this result transmitted reference range : 22 - 26 mEq/L. The reference range was not used to interpret this result as normal/abnormal . BE (test code = See_Comment [Automated 7706368357) message] The sy stem which generated this result transmitted reference range : -3.0 - 3.0 mEq/ L. The reference r martin was not used to interpret this result as normal/abnormal . LACTIC ACID (test code 1.10 mmol/L = 2033459517) Lab Interpretation Abnormal (test code = 43159-8) [facility](AGE >30DAYS)2020-05-30 01:04:00 Test Item Value Reference Range Interpretation Comments POCT Glu (age>30days) (test code = 130 mg/dL 70-110 A 3342) Lab Interpretation (test code = Abnormal 30236-0) [facility]
[2022-02-18 23:31] LABS: Absolute Lymphocytes (CBC) 0.4 K/uL (0.7-4.9); Hematocrit 29.5 % (39.6-49.0); MPV 6.9 fL (7.6-11.3); RBC Red Blood Cell Count 3.29 M/uL (4.33-5.43)
[2022-02-18] MEDS ORDERED: ALBUTEROL 2.5 MG/3 ML NEB SOL ONE (23:41)
[2022-02-18] MEDS ORDERED: IPRATROPIUM BROM 0.5MG/2.5ML ONE (23:41)
[2022-02-18 23:59] LABS: Potassium 3.1 mmol/L (3.5-5.1)
[2022-02-19 00:02] LABS: Troponin High Sensitivity 208.5 pg/mL (<58.9)
--- NOTE | 2022-02-19 00:18 | ER ---
Nurse's Notes [facility] Name: Jimbo Cat Age: 81 yrs Sex: Male : 1940 Arrival Date: 02/18/2022 Time: 22:42 Bed 20 Private MD: Diagnosis: Elevated Troponin;Congestive heart failure;Hypokalemia;Elevated Creatinine;Anemia, unspecified Presentation: 02/18 22:44 Chief complaint: EMS states: toned out twice to Pt house. First time EMS helped fix lg3 oxygen bottle at home, second time insisted pt had to come to ER to be checked out. Pt C/O SOB - SpO2 100% RA upon arrival to ER. Coronavirus screen: At this time, the client does not indicate any symptoms associated with coronavirus-19. Ebola Screen: No symptoms or risks identified at this time. Initial Sepsis Screen: Does the patient meet any 2 criteria? No. Patient's initial sepsis screen is negative. Does the patient have a suspected source of infection? No. Patient's initial sepsis screen is negative. Risk Assessment: Do you want to hurt yourself or someone else? Patient reports no desire to harm self or others. Onset of symptoms was February 18, 2022. 22:44 Method Of Arrival: EMS: [facility] lg3 22:44 Acuity: SYDNIE 3 lg3 Triage Assessment: 22:45 General: Appears in no apparent distress. comfortable, Behavior is cooperative, lg3 appropriate for age, anxious. Pain: Denies pain. EENT: No signs and/or symptoms were reported regarding the EENT system. Neuro: Level of Consciousness is awake, alert, obeys commands, Oriented to person, place, time, situation. Cardiovascular: Capillary refill < 3 seconds Patient's skin is warm and dry. Rhythm is sinus tachycardia. Respiratory: Airway is patent Respiratory effort is even, unlabored, Respiratory pattern is regular, symmetrical. Respiratory: Reports shortness of breath at rest. GI: Abdomen is flat, non-distended. : No signs and/or symptoms were reported regarding the genitourinary system. Derm: No signs and/or symptoms reported regarding the dermatologic system. Musculoskeletal: No signs and/or symptoms reported regarding the musculoskeletal system. Historical: - Home Meds: 02/19 04:19 Unable to obtain [Active]; lg3 - PMHx: 02/18 22:45 Congestive heart failure; CVA; diabetes mellitus; Myocardial infarction; lg3 - PSHx: 22:45 Pacemaker/Defibrillator; Appendectomy; lg3 - Immunization history:: Adult Immunizations up to date, Client reports receiving the 2nd dose of the Covid vaccine. - Social history:: Smoking status: Patient/guardian denies using tobacco, Patient/guardian denies using alcohol. Screenin:25 Abuse screen: Denies threats or abuse. Denies injuries from another. Nutritional lg3 screening: No deficits noted. Tuberculosis screening: No symptoms or risk factors identified. Fall Risk None identified. Assessment: 23:25 General: Appears in no apparent distress. comfortable, Behavior is cooperative, lg3 agitated, fussy. Pain: Denies pain. Neuro: No deficits noted. James Agitation-Sedation Scale (RASS): +2 Agitated Level of Consciousness is awake, alert, obeys commands, Oriented to person, place, time, situation. Cardiovascular: No deficits noted. Reports shortness of breath, Capillary refill < 3 seconds Clubbing of nail beds is absent JVD is absent Patient's skin is warm and dry. Respiratory: Reports shortness of breath Airway is patent Trachea midline Respiratory effort is even, unlabored, Respiratory pattern is regular, tachypnea Breath sounds are clear bilaterally. GI: No deficits noted. No signs and/or symptoms were reported involving the gastrointestinal system. : No deficits noted. No signs and/or symptoms were reported regarding the genitourinary system. EENT: No deficits noted. No signs and/or symptoms were reported regarding the EENT system. Derm: Skin is intact, is thin, Skin is dry, Skin temperature is warm post operative incisions noted to right chest. Musculoskeletal: No deficits noted. No signs and/or symptoms reported regarding the musculoskeletal system. Circulation, motion, and sensation intact. Range of motion: intact in all extremities. 02/19 00:50 Reassessment: Patient appears in no apparent distress at this time. No changes from lg3 previously documented assessment. Patient and/or family updated on plan of care and expected duration. Pain level reassessed. Patient is alert, oriented x 3, equal unlabored respirations, skin warm/dry/pink. 03:55 Reassessment: Patient appears in no apparent distress at this time. No changes from lg3 previously documented assessment. Patient and/or family updated on plan of care and expected duration. Pain level reassessed. Patient is alert, oriented x 3, equal unlabored respirations, skin warm/dry/pink. Patient states symptoms have improved. Vital Signs: 02/18 22:44 BP 142 / 67; Pulse 80; Resp 23; Temp 98.3(TE); Pulse Ox 100% on R/A; Weight 56.7 kg; lg3 Height 5 ft. 9 in. (175.26 cm); Pain 0/10; 23:25 BP 110 / 62; Pulse 80; Resp 24; Pulse Ox 100% on R/A; lg3 02/19 02:00 BP 122 / 65; Pulse 80; Resp 22; Pulse Ox 99% on R/A; lg3 02:00 BP 132 / 68; Pulse 80; Resp 21; Pulse Ox 100% on R/A; lg3 02/18 22:44 Body Mass Index 18.46 (56.70 kg, 175.26 cm) lg3 ED Course: 02/18 22:42 Patient arrived in ED. mw2 22:43 Deangelo Cabezas DO is Attending Physician. ms3 22:44 Britta Franklin, RN is Primary Nurse. lg3 22:45 Triage completed. lg3 22:45 Arm band placed on right wrist. lg3 23:22 Basic Metabolic Panel Sent. lg3 23:23 Client placed on continuous cardiac and pulse oximetry monitoring. NIBP monitoring wm applied. personnel monitor on. 23:23 CBC with Diff Sent. lg3 23:23 NT PRO-BNP Sent. lg3 23:23 Troponin HS Sent. lg3 23:23 EKG done, by ED staff, reviewed by Deangelo Cabezas DO. wm 23:25 Patient has correct armband on for positive identification. Bed in low position. Call lg3 light in reach. Side rails up X2. Door closed. Noise minimized. Warm blanket given. 23:25 Inserted saline lock: 20 gauge in right antecubital area, using aseptic technique. lg3 Blood collected. 23:43 Basic Metabolic Panel Sent. lg3 23:44 NT PRO-BNP Sent. lg3 23:44 Troponin HS Sent. lg3 23:47 XRAY Chest (1 view) In Process Unspecified. EDMS 02/19 00:16 Michele Kaur is Hospitalizing Provider. ms3 00:46 COVID-19 SARS RT PCR (Document "Date of Onset" if Symptomatic) Sent. lg3 03:59 No provider procedures requiring assistance completed. Patient admitted, IV remains in lg3 place. intact, No redness/swelling at site. 05:21 Notified ED physician of a critical lab result(s). pot 2.8, trop 229.9. tw5 13:05 Inserted saline lock:. zamora Administered Medications: 02/18 23:49 Drug: Albuterol - atroVENT (ipratropium) (3:1) (2.5 mg - 0.5 mg) 3 ml Route: Nebulizer; lg3 23:49 Follow up: Response: No adverse reaction lg3 03 00:46 Drug: AZITHromycin 500 mg Route: IVPB; Infused Over: 1 hrs; Site: right antecubital; lg3 00:46 Follow up: Response: No adverse reaction; IV Status: Completed infusion; IV Intake: lg3 250ml 00:47 Drug: Rocephin (cefTRIAXone) 1 grams Route: IV; Rate: calculated rate; Site: right 3 antecubital; 00:47 Follow up: Response: No adverse reaction; IV Status: Completed infusion; IV Intake: [id number] Medication: 02/18 23:25 VIS not applicable for this client. lg3 Intake: 03 00:46 IV: 250ml; Total: 250ml. lg3 00:47 IV: 10ml; Total: 260ml. lg3 Outcome: 00:18 Decision to Hospitalize by Provider. ms3 03:59 Admitted to ER Hold. Please see [facility] for further documentation. lg3 03:59 Condition: stable 03:59 Instructed on the need for admit. 13:50 Patient left the ED. zamora Signatures: Dispatcher [employer] EDAL Samantha Art mw2 Britta Franklin, SABINE RN lg3 Deangelo Cabezas DO DO ms3 Madelin Love Tiffany tw5 Au-StagerAngelica RN RN ha
--- NOTE | 2022-02-19 00:19 | EDPHYS ---
Physician Documentation [facility] Name: Jimbo Cat Age: 81 yrs Sex: Male : 1940 Arrival Date: 02/18/2022 Time: 22:42 Bed 20 Private MD: ED Physician Deangelo Cabezas HPI: 02/18 23:25 This 81 yrs old Male presents to ER via EMS with complaints of shortness of breath. ms3 23:25 The patient has shortness of breath at rest. Onset: The symptoms/episode began/occurred ms3 2 hour(s) ago. Duration: The symptoms are continuous. The patient's shortness of breath is aggravated by nothing, is alleviated by nothing. Associated signs and symptoms: The patient has no apparent associated signs or symptoms. Severity of symptoms: At their worst the symptoms were moderate in the emergency department the symptoms are unchanged Pain is currently a . 81-year-old male with past medical history of congestive heart failure, CVA, diabetes, myocardial infarction, COPD presents via clued EMS for shortness of breath that began 2 hours prior to arrival. Patient denies alleviating or inciting factors.. Historical: - Home Meds: 02/19 04:19 Unable to obtain [Active]; lg3 - PMHx: 02/18 22:45 Congestive heart failure; CVA; diabetes mellitus; Myocardial infarction; lg3 - PSHx: 22:45 Pacemaker/Defibrillator; Appendectomy; lg3 - Immunization history:: Adult Immunizations up to date, Client reports receiving the 2nd dose of the Covid vaccine. - Social history:: Smoking status: Patient/guardian denies using tobacco, Patient/guardian denies using alcohol. ROS: 23:25 Constitutional: Negative for fever, and chills. Neck: Negative for injury, pain, and ms3 swelling, Cardiovascular: Negative for chest pain, and palpitations. Abdomen/GI: Negative for abdominal pain, nausea, vomiting, diarrhea, and constipation, Back: Negative for injury and pain, MS/Extremity: Negative for injury and deformity, Skin: Negative for injury, rash, and discoloration. 23:25 Respiratory: Positive for shortness of breath. Exam: 23:15 ECG was reviewed by the Attending Physician. ms3 23:25 Constitutional: This is a well developed, well nourished patient who is awake, alert, ms3 and in no acute distress. Head/Face: Normocephalic, atraumatic. Neck: Trachea midline, no cervical lymphadenopathy. Supple, full range of motion without nuchal rigidity, or vertebral point tenderness. No Meningismus. Chest/axilla: Normal chest wall appearance and motion. Nontender with no deformity. Cardiovascular: Regular rate and rhythm with a normal S1 and S2. No gallops, murmurs, or rubs. Normal PMI, no JVD. No pulse deficits. Respiratory: Lungs have equal breath sounds bilaterally, clear to auscultation and percussion. No rales, rhonchi or wheezes noted. No increased work of breathing, no retractions or nasal flaring. Abdomen/GI: Soft, non-tender, with normal bowel sounds. No distension or tympany. No guarding or rebound. No evidence of tenderness throughout. Skin: Warm, dry with normal turgor. Normal color with no rashes, no lesions, and no evidence of cellulitis. Psych: Awake, alert, with orientation to person, place and time. Behavior, mood, and affect are within normal limits. Vital Signs: 22:44 BP 142 / 67; Pulse 80; Resp 23; Temp 98.3(TE); Pulse Ox 100% on R/A; Weight 56.7 kg; lg3 Height 5 ft. 9 in. (175.26 cm); Pain 0/10; 23:25 BP 110 / 62; Pulse 80; Resp 24; Pulse Ox 100% on R/A; lg3 02/19 02:00 BP 122 / 65; Pulse 80; Resp 22; Pulse Ox 99% on R/A; lg3 02:00 BP 132 / 68; Pulse 80; Resp 21; Pulse Ox 100% on R/A; lg3 02/18 22:44 Body Mass Index 18.46 (56.70 kg, 175.26 cm) lg3 MDM: 02/18 22:50 Patient medically screened. ms3 23:25 Differential diagnosis: CHF exacerbation, Chronic Obstructive Pulmonary Disease ms3 Myocardial Infarction. 02/19 00:15 ED course: Discussed case with APPLE Tai, and she accepts patient on behalf of ms3 Dr Kaur as inpatient admission. Discussed plan with patient and he understands/ agrees with plan. All questions answered. Patient remains in stable condition.. 00:18 Data reviewed: vital signs, nurses notes, lab test result(s), EKG, radiologic studies. ms3 Data interpreted: lift operator: rate is 75 beats/min, rhythm is paced rhythm with no ectopy, Interpretation: normal rate, normal rhythm, Pulse oximetry: on room air is 100 %. Interpretation: normal. Counseling: I had a detailed discussion with the patient and/or guardian regarding: the historical points, exam findings, and any diagnostic results supporting the discharge/admit diagnosis, lab results, radiology results, the need for further work-up and treatment in the hospital. 02/18 22:51 Order name: Basic Metabolic Panel; Complete Time: 00:09 ms3 02/18 22:51 Order name: CBC with Diff; Complete Time: 23:37 ms3 02/18 22:51 Order name: NT PRO-BNP; Complete Time: 00:09 ms3 02/18 22:51 Order name: Troponin HS; Complete Time: 00:09 ms3 02/19 00:21 Order name: COVID-19 SARS RT PCR (Document "Date of Onset" if Symptomatic) 3 02/19 03:57 Order name: CKMB Creatine Kinase MB EDMS 02/19 03:57 Order name: Creatine Phosphokinase EDMS 02/19 03:57 Order name: Urinalysis EDMS 02/19 03:57 Order name: CBC with Automated Diff EDMS 02/19 03:57 Order name: CBC with Automated Diff EDMS 02/19 03:57 Order name: CBC with Automated Diff EDMS 02/19 03:57 Order name: Comprehensive Metabolic Panel EDMS 02/19 03:57 Order name: Comprehensive Metabolic Panel EDMS 02/19 03:57 Order name: Comprehensive Metabolic Panel EDMS 02/18 22:51 Order name: XRAY Chest (1 view) ms3 02/18 22:51 Order name: EKG; Complete Time: 22:52 ms3 02/19 03:57 Order name: CONS Physician Consult EDMS 02/19 03:57 Order name: Heart Healthy EDMS 02/19 03:57 Order name: Lipid Profile EDMS 02/19 03:57 Order name: Lipid Profile EDMS 02/19 03:57 Order name: Magnesium EDMS 02/19 03:57 Order name: Magnesium EDMS 02/19 03:57 Order name: Magnesium EDMS 02/19 03:58 Order name: Thyroid Stimulating Hormone EDMS 02/19 03:58 Order name: Thyroid Stimulating Hormone EDMS 02/19 03:58 Order name: Troponin High Sensitivity EDMS 02/19 03:58 Order name: Troponin High Sensitivity EDMS 02/18 22:51 Order name: Cardiac monitoring; Complete Time: 23:22 ms3 02/18 22:51 Order name: EKG - Nurse/Tech; Complete Time: 23:22 ms3 02/18 22:51 Order name: IV Saline Lock; Complete Time: 23:22 ms3 02/18 22:51 Order name: Labs collected and sent; Complete Time: 23:22 ms3 02/18 22:51 Order name: O2 Per Protocol; Complete Time: 23:22 ms3 02/18 22:51 Order name: O2 Sat Monitoring; Complete Time: 23:22 ms3 EC/02 23:15 Rate is 80 beats/min. Rhythm is regular. Left axis deviation noted. Clinical ms3 impression: AV paced rhythm. Administered Medications: 23:49 Drug: Albuterol - atroVENT (ipratropium) (3:1) (2.5 mg - 0.5 mg) 3 ml Route: Nebulizer; 3 23:49 Follow up: Response: No adverse reaction 3 02/19 00:46 Drug: AZITHromycin 500 mg Route: IVPB; Infused Over: 1 hrs; Site: right antecubital; 3 00:46 Follow up: Response: No adverse reaction; IV Status: Completed infusion; IV Intake: lg3 250ml 00:47 Drug: Rocephin (cefTRIAXone) 1 grams Route: IV; Rate: calculated rate; Site: right 3 antecubital; 00:47 Follow up: Response: No adverse reaction; IV Status: Completed infusion; IV Intake: [id number] Disposition Summary: 02/19/22 00:18 Hospitalization Ordered Hospitalization Status: Inpatient Admission ms3 Provider: Michele Kaur ms3 Condition: Guarded ms3 Problem: new ms3 Symptoms: are unchanged ms3 Bed/Room Type: Standard ms3 Location: Telemetry/MedSurg (Inpatient)(02/19/22 12:24) dw Room Assignment: 221(02/19/22 12:24) dw Diagnosis - Elevated Troponin ms3 - Congestive heart failure ms3 - Hypokalemia ms3 - Elevated Creatinine ms3 - Anemia, unspecified ms3 Forms: - Medication Reconciliation Form ms3 - SBAR form ms3 Signatures: Dispatcher [employer] EDZehra Zavala RN RN mw Woody, Diana RN Britta Maldonado RN RN lg3 Deangelo Cabezas, DO ms3 Johanna Villalobos, APLPE PA sb3 Corrections: (The following items were deleted from the chart) 01:55 00:18 Telemetry/MedSurg (Inpatient) ms3 mw 01:55 00:18 ms3 mw 12:24 01:55 [facility] ER HOLD mw dw 12:24 01:55 ERHOLD- mw dw
[2022-02-19] MEDS ORDERED: CEFTRIAXONE 1000 MG/VIAL ONE (00:31)
[2022-02-19] MEDS ORDERED: AZITHROMYCIN 500 MG INJ IVPB ONE (00:31)
[2022-02-19] MEDS ORDERED: NA CHLORIDE 0.9% 250 ML ONE (00:31)
--- NOTE | 2022-02-19 00:59 | P.HP ---
Certification for Inpatient Patient admitted to: Inpatient With expected LOS: >2 Midnights Patient will require the following post-hospital care: None Practitioner: I am a practitioner with admitting privileges, knowledge of patient current condition, hospital course, and medical plan of care. Services: Services provided to patient in accordance with Admission requirements found in Title 42 Section 412.3 of the Code of Federal Regulations Patient History Date of Service: 02/19/22 History of Present Illness: Patient is an 89-year-old male with PMH of chronic systolic CHF, CKD 3, IDDM, hypertension, COPD, CAD with pacemaker who presented to the ED via EMS with complaints of SHOB that began w hours METAL CUTTER. Patient saturating 100% on RA upon arrival. Workup revealed Cr 2.4, K 3.1, trop HS 208, and BNP 6000. CXR showed groundglass and streaky opacities in the right midlung. He was given duonebs, rocephin, and azithromycin in the ED. Patient's troponin is typically elevated, but today is higher than usual. He did have cardiac catheterization about 3 weeks ago that was normal. Patient is admitted for further evaluation and treatment. Allergies No Known Allergies Allergy (Verified 03/23/21 04:35) Home Medications: Furosemide 80 mg PO BID 01/28/22 Hydralazine [Apresoline*] 1 tab PO BID 01/28/22 Isosorbide Mononitrate [Isosorbide Mononitrate ER] 1 tab PO DAILY 01/28/22 Potassium Chloride 1 tab PO DAILY 01/28/22 Blood Sugar Diagnostic [Accu-Chek Guide Test Strip] 1 each MC BID 30 Days #60 strip 01/29/22 Blood-Glucose Meter [Contour] 1 each MC DAILY 90 Days #1 each 01/29/22 Lancets [Advanced Travel Lancets] 1 each MC BID 30 Days #60 each 01/29/22 Metformin HCl [Glucophage*] 500 mg PO BIDWM 30 Days #60 tab 01/29/22 - Past Medical/Surgical History Diabetic: Yes -: Pacemaker/defibrillator 2010 -: Hypertension -: CAD -: Hyperlipidemia -: History of CVA -: Depression -: Bilateral cataracts -: Chronic systolic CHF -: COPD -: Parkinsons -: CKD III followed by Dr. 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 - Family History Father -: Heart disease Mother -: Heart disease, Hypertension, Diabetes, Cancer - Social History Smoking Status: Former smoker Alcohol use: Yes CD- Drugs: No Caffeine use: Yes Place of Residence: Home Review of Systems 10-point ROS is otherwise unremarkable Respiratory: Shortness of Breath Physical Examination - Physical Exam General: Alert, In no apparent distress HEENT: Atraumatic, PERRLA, EOMI, Sclerae nonicteric Neck: Supple, 2+ carotid pulse no bruit, No LAD, Without JVD or thyroid abnormality Respiratory: Clear to auscultation bilaterally, Normal air movement Cardiovascular: Regular rate/rhythm, Normal S1 S2 Gastrointestinal: Normal bowel sounds, No tenderness Musculoskeletal: No tenderness Integumentary: No rashes Neurological: Normal speech, Normal strength at 5/5 x4 extr, Normal affect - Studies Laboratory Data (last 24 hrs) 02/18/22 23:21: WBC 6.8, Hgb 10.2 L, Hct 29.5 L, Plt Count 213 02/18/22 23:21: Sodium 137, Potassium 3.1 L, BUN 30 H, Creatinine 2.42 H, Glucose 207 H Assessment and Plan - Problems (Diagnosis) (1) COPD (chronic obstructive pulmonary disease) Current Visit: Yes Status: Chronic Qualifiers: COPD type: unspecified COPD Qualified Code(s): J44.9 - Chronic obstructive pulmonary disease, unspecified (2) Acute kidney injury superimposed on CKD Current Visit: Yes Status: Acute (3) Acute on chronic systolic CHF (congestive heart failure) Current Visit: Yes Status: Chronic (4) Chronic atrial fibrillation Current Visit: No Status: Chronic (5) Diabetes mellitus, type II Current Visit: Yes Status: Chronic Qualifiers: Diabetes mellitus terminal carman insulin use: with terminal carman use Diabetes mellitus complication status: with kidney complications Diabetes mellitus complication detail: with chronic kidney disease Chronic kidney disease stage: stage 4 (severe) Qualified Code(s): E11.22 - Type 2 diabetes mellitus with diabetic chronic kidney disease; N18.4 - Chronic kidney disease, stage 4 (sev ere); Z79.4 - oysterman (current) use of insulin (6) HTN (hypertension) Current Visit: Yes Status: Chronic Qualifiers: Hypertension type: primary hypertension Qualified Code(s): I10 - Essential (primary) hypertension (7) History of CVA (cerebrovascular accident) Current Visit: No Status: Chronic (8) Hyperlipidemia Current Visit: No Status: Chronic Qualifiers: Hyperlipidemia type: mixed hyperlipidemia Qualified Code(s): E78.2 - Mixed hyperlipidemia (9) Hyponatremia Current Visit: Yes Status: Chronic (10) Presence of combination internal cardiac defibrillator (ICD) and pacemaker Current Visit: No Status: Chronic (11) Hypokalemia Current Visit: Yes Status: Acute - Plan -Cardiology and Pulmonology consulted -Trop elevated. Check CPK and CKMB and trend trop q6hx2. Cardiac cath 3 weeks ago without abnormality -Monitor and replete electrolytes as per protocol- deficient in potassium, mag, and sodium -Duo nebs PRN -Reconcile and cont home medications -Heparin for VTE ppx -Full code Discharge Plan: Home Plan to discharge in: 48 Hours - Advance Directives Does patient have a Living Will: No Does patient have a Durable POA for Healthcare: No - Code Status/Comfort Care Code Status Assessed: Yes (Full) Critical Care: No Time Spent Managing Pts Care (In Minutes): 70
[2022-02-19] MEDS: HEPARIN 5000 UNIT/ML 1 ML VIAL SQ SCH ×2 (03:54→17:19)
[2022-02-19] MEDS ORDERED: ALBUTEROL 2.5 MG/3 ML NEB SOL NEB PRN ×2 (03:54→14:00)
[2022-02-19] MEDS ORDERED: ONDANSETRON 4 MG/2 ML VIAL IV PRN (03:54)
[2022-02-19] MEDS ORDERED: ACETAMINOPHEN 500 MG TAB PO PRN (03:54)
[2022-02-19 04:21] VITALS: BMI 18.4
[2022-02-19] MEDS ORDERED: HEPARIN 5000 UNIT/ML 1 ML VIAL ONE (04:38)
[2022-02-19 04:50] LABS: Absolute Lymphocytes (CBC) 0.4 K/uL (0.7-4.9); Hematocrit 27.3 % (39.6-49.0); Lymphocytes % 5.3 % (15.3-44.8); MPV 7.1 fL (7.6-11.3); RBC Red Blood Cell Count 3.03 M/uL (4.33-5.43)
[2022-02-19 05:11] LABS: CKMB Creatine Kinase MB 1.2 ng/mL (1.0-3.6)
[2022-02-19 05:18] LABS: Albumin 2.5 g/dL (3.4-5.0); Bilirubin Total 0.8 mg/dL (0.2-1.0); Magnesium 1.5 mg/dL (1.8-2.4); Protein, Total 5.5 g/dL (6.4-8.2); Thyroid Stimulating Hormone 2.43 uIU/mL (0.360-3.740)
[2022-02-19 05:23] LABS: Potassium 2.8 mmol/L (3.5-5.1); Troponin High Sensitivity 229.9 pg/mL (<58.9)
[2022-02-19] MEDS ORDERED: POTASSIUM 25 MEQ EFFERV TAB PO ONE (05:43)
[2022-02-19] MEDS ORDERED: ACETAMINOPHEN 500 MG TAB ONE (06:16)
[2022-02-19] MEDS ORDERED: POTASSIUM 25 MEQ EFFERV TAB ONE (06:16)
[2022-02-19 09:56] VITALS: O2SAT 97
--- NOTE | 2022-02-19 12:33 | RAD REPORT ---
EXAM DESCRIPTION: RAD - Chest Single View - 02/18/2022 11:45 pm CLINICAL HISTORY: SOB. COMPARISON: Chest radiograph from December 27, 2021. TECHNIQUE: Single view AP chest radiograph(s). FINDINGS: Mild diffuse pulmonary interstitial thickening. Within streaky opacity across the right mi dlung. Mild groundglass opacification in the periphery of the right midlung. No pleural effusion. No pneumothorax. Mild cardiomegaly status post AICD. No significant osseous abnormality. IMPRESSION: Groundglass and streaky opacities in the right midlung. Differential includes infectious infiltrate in the appropriate clinical setting. Electronically signed by: Yasmin Stewart MD 02/19/2022 12:00 AM CDT Due to temporary technical issues with the PACS/Fluency reporting system, reports are being signed by the in house radiologists without review as a courtesy to insure prompt reporting. The interpreting radiologist is fully responsible for the content of the report.
--- NOTE | 2022-02-19 14:31 | P.PN ---
Date of Service: 02/19/22 Patient seen and examined. He states his shortness of breath is much better. He is asking when he can go home He has been tolerating room air. Lungs clear to auscultation bilaterally. Troponin elevated but trending flat. Serum creatinine trending down. Diagnosis: Elevated troponin Coronary artery disease Acute on chronic kidney disease stage III. Possible pneumonia. Plan: Continue antibiotics. Elevated troponin likely secondary to demand ischemia. Cardiology consulted given recent cardiac catheterization. Hold Lasix. Encourage oral intake Monitor renal function for improvement.
[2022-02-19] MEDS ORDERED: MORPHINE 4 MG/ML SYR IV ONE (22:27)
[2022-02-19] MEDS ORDERED: MORPHINE 4 MG/ML SYR ONE (22:37)
[2022-02-19] MEDS ORDERED: ZOLPIDEM TARTRATE 10 MG TABLET PO PRN (23:44)
[2022-02-20 00:07] LABS: Urine Appearance Clear (Clear); Urine Bilirubin Negative (Negative); Urine Blood Trace-intact (Negative); Urine Color Yellow (Yellow); Urine Glucose 2+ (Negative); Urine Protein 3+ (Negative); Urine Specific Gravity 1.015 (1.005-1.030); Urine pH 6.5 (5.0-7.0)
[2022-02-20 00:09] LABS: Urine Microscopic Reflex ORDER UMIC
[2022-02-20] MEDS: HEPARIN 5000 UNIT/ML 1 ML VIAL SQ SCH ×2 (00:22→09:00)
[2022-02-20 00:46] LABS: Urine Bacteria <20 /HPF (NONE SEEN); Urine RBC <5 /HPF (NONE SEEN)
[2022-02-20 05:57] LABS: Absolute Lymphocytes (CBC) 0.7 K/uL (0.7-4.9); Hematocrit 30.3 % (39.6-49.0); Lymphocytes % 9.6 % (15.3-44.8); MPV 7.1 fL (7.6-11.3); RBC Red Blood Cell Count 3.38 M/uL (4.33-5.43)
[2022-02-20 06:20] LABS: Albumin 2.6 g/dL (3.4-5.0); Bilirubin Total 0.7 mg/dL (0.2-1.0); Magnesium 1.5 mg/dL (1.8-2.4); Potassium 3.8 mmol/L (3.5-5.1); Protein, Total 5.8 g/dL (6.4-8.2)
--- NOTE | 2022-02-20 08:56 | P.DS ---
Admission Date: 02/19/22 Discharge Date: 02/20/22 Disposition: ROUTINE DISCHARGE Discharge Condition: FAIR - Problems (1) Acute on chronic diastolic heart failure Status: Acute (2) NSTEMI (non-ST elevated myocardial infarction) Status: Acute (3) COPD exacerbation Status: Acute (4) Chronic kidney disease, stage 3 Status: Chronic Qualifiers: (5) Diabetes mellitus, type II Status: Chronic Qualifiers: Diabetes mellitus coiled coil inspector insulin use: with coiled coil inspector use Diabetes mellitus complication status: with kidney complications Diabetes mellitus complication detail: with chronic kidney disease Chronic kidney disease stage: stage 4 (severe) Qualified Code(s): E11.22 - Type 2 diabetes mellitus with diabetic chronic kidney disease; N18.4 - Chronic kidney disease, stage 4 (severe); Z79.4 - penitentiary (current) use of insulin Brief History of Present Illness: Patient is an 89-year-old male with PMH of chronic systolic CHF, CKD 3, IDDM, hypertension, COPD, CAD with pacemaker who presented to the ED via EMS with complaints of SHOB that began w hours RUMPER. Patient saturating 100% on RA upon arrival. Workup revealed Cr 2.4, K 3.1, trop HS 208, and BNP 6000. CXR showed groundglass and streaky opacities in the right midlung. He was given duonebs, rocephin, and azithromycin in the ED. Patient's troponin is typically elevated, but today is higher than usual. He did have cardiac catheterization about 3 weeks ago that was normal. Patient is admitted for further evaluation and treatm ent. Hospital Course: Patient admitted to the medical floor and treated for CHF exacerbation with IV Lasix and COPD exacerbation. He was seen and evaluated by pulmonary. Patient also seen by cardiology for elevated troponin which was deemed secondary to demand ischemia. He has chronic troponin elevation. He underwent cardiac catheterization about 2 weeks ago, patient noted to have normal coronary arteries and medical management recommended. Patient respiratory symptoms resolved with treatment. 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 He was evaluated by physical therapy Who noted upper extremity tremors and recommended that he uses a Rollator for ambulation. No more therapy needs recommended. Patient has clinically improved, vitals are stable and deemed stable for discharge. Vital Signs/Physical Exam: Temp Pulse Resp BP Pulse Ox 98.1 F 84 18 137/79 98 02/20/22 08:00 02/20/22 08:00 02/20/22 08:00 02/20/22 08:00 02/20/22 08:00 General: Alert, In no apparent distress HEENT: Mucous membr. moist/pink Neck: JVD not distended Respiratory: Clear to auscultation bilaterally, Normal air movement Cardiovascular: No edema, Regular rate/rhythm, Normal S1 S2 Gastrointestinal: Soft and benign, Non-distended Musculoskeletal: No swelling Integumentary: No rashes Neurological: Normal strength at 5/5 x4 extr Laboratory Data at Discharge: WBC 7.0 K/uL (4.3-10.9) 02/20/22 05:44 Hgb 10.6 g/dL (13.6-17.9) L 02/20/22 05:44 Hct 30.3 % (39.6-49.0) L 02/20/22 05:44 Plt Count 189 K/uL (152-406) 02/20/22 05:44 Sodium 133 mmol/L (136-145) L 02/20/22 05:44 Potassium 3.8 mmol/L (3.5-5.1) 02/20/22 05:44 BUN 25 mg/dL (7-18) H 02/20/22 05:44 Creatinine 1.83 mg/dL (0.55-1.3) H 02/20/22 05:44 Glucose 167 mg/dL (74-106) H 02/20/22 05:44 Magnesium 1.5 mg/dL (1.8-2.4) L 02/20/22 05:44 Total Bilirubin 0.7 mg/dL (0.2-1.0) 02/20/22 05:44 AST 23 U/L (15-37) 02/20/22 05:44 ALT 34 U/L (12-78) 02/20/22 05:44 Alkaline Phosphatase 79 U/L (45-117) 02/20/22 05:44 Triglycerides 102 mg/dL (<150) 02/19/22 04:29 Cholesterol 130 mg/dL (<200) 02/19/22 04:29 HDL Cholesterol 25 mg/dL (40-60) L 02/19/22 04:29 Cholesterol/HDL Ratio 5.20 02/19/22 04:29 Home Medications: Hydralazine [Apresoline*] 1 tab PO BID 01/28/22 Isosorbide Mononitrate [Isosorbide Mononitrate ER] 1 tab PO DAILY 01/28/22 Potassium Chloride 1 tab PO DAILY 01/28/22 Blood Sugar Diagnostic [Accu-Chek Guide Test Strip] 1 each MC BID 30 Days #60 strip 01/29/22 Blood-Glucose Meter [Contour] 1 each MC DAILY 90 Days #1 each 01/29/22 Lancets [Advanced Travel Lancets] 1 each MC BID 30 Days #60 each 01/29/22 Metformin HCl [Glucophage*] 500 mg PO BIDWM 30 Days #60 tab 01/29/22 Furosemide [Lasix] 60 mg PO BID #180 tablet 02/20/22 levoFLOXacin [Levaquin] 750 mg PO DAILY #5 tab 02/20/22 New Medications: Furosemide [Lasix] 60 mg PO BID #180 tablet levoFLOXacin [Levaquin] 750 mg PO DAILY #5 tab Diet: ADA Activity: Ad brianna Time spent managing pt's care (in minutes): 36
[2022-02-20 12:03] VITALS: BP 127/64; TEMP 97.2
--- NOTE | 2022-02-20 14:30 | EKG ---
Test Date: 2022-02-18 Test Time: 23:15:18 Parakeet Raiser: MEASUREMENT RESULTS: Intervals: Rate: 80 MI: 156 QRSD: 236 QT: 556 QTc: 641 [place]: P: 108 MI: 156 QRS: -78 T: 116 INTERPRETIVE STATEMENTS: AV dual-paced rhythm Abnormal ECG Compared to ECG 02/18/2022 23:14:08 No significant changes Electronically Signed On 02-20-22 14:29:46 CDT by Hector Bar
--- NOTE | 2022-02-22 13:24 | EKG ---
Test Date: 2022-02-19 Test Time: 21:20:01 Freight Car Cleaner: RT MEASUREMENT RESULTS: Intervals: Rate: 80 MS: 122 QRSD: 208 QT: 550 QTc: 634 [place]: P: 101 MS: 122 QRS: -76 T: 104 INTERPRETIVE STATEMENTS: AV sequential or dual chamber electronic pacemaker Compared to ECG 02/19/2022 13:17:03 Ventricular-paced complex(es) or rhythm no longer present Electronically Signed On 02-22-22 13:22:39 CDT by Hector Bar
--- NOTE | 2022-02-22 13:25 | EKG ---
Test Date: 2022-02-19 Test Time: 13:17:03 Outreach Representative: CONCHITA MEASUREMENT RESULTS: Intervals: Rate: 81 VA: 224 QRSD: 212 QT: 566 QTc: 657 [place]: P: VA: 224 QRS: -79 T: 101 INTERPRETIVE STATEMENTS: AV dual-paced rhythm with prolonged AV conduction Abnormal ECG Compared to ECG 02/18/2022 23:15:18 No significant changes Electronically Signed On 02-22-22 13:22:52 CDT by Hector Bar
== END 2022-02-20 12:15 | disposition home or self-care (01) | DRG 291 ==
LOC: ER 22:41 → ERHOLD 02-19 04:13 → 2ND 02-19 13:33
PROVIDERS: ADMIT Internal Medicine; ATTEND Internal Medicine
DX: I13.0 Hypertensive heart and chronic kidney disease with heart failure and stage 1 through stage 4 chronic kidney disease, or unspecified chronic kidney disease (principal); I50.23 Acute on chronic systolic (congestive) heart failure; J18.9 Pneumonia, unspecified organism; N17.9 Acute kidney failure, unspecified; J44.0 Chronic obstructive pulmonary disease with (acute) lower respiratory infection; J44.1 Chronic obstructive pulmonary disease with (acute) exacerbation; I48.20 Chronic atrial fibrillation, unspecified; E87.1 Hypo-osmolality and hyponatremia; I24.8 Other forms of acute ischemic heart disease; N18.30 Chronic kidney disease, stage 3 unspecified; E11.22 Type 2 diabetes mellitus with diabetic chronic kidney disease; I25.10 Atherosclerotic heart disease of native coronary artery without angina pectoris; G20 Parkinson's disease; E78.2 Mixed hyperlipidemia; E87.6 Hypokalemia; Z79.4 Long term (current) use of insulin; Z86.73 Personal history of transient ischemic attack (TIA), and cerebral infarction without residual deficits; Z95.810 Presence of automatic (implantable) cardiac defibrillator; Z20.822 Contact with and (suspected) exposure to COVID-19
CPT/HCPCS: 36415; 71045; 80048; 80053; 80061; 81003; 81015; 82550; 82553; 83735; 83880; 84443; 84484; 85025; 93005; 94640; 96374; 96375; 97116; 97161; 99285; J0456; J1644; J7050; U0003

== ENCOUNTER 2022-03-03 18:40 | Inpatient (IN) | payer OTHER ==
--- OUTSIDE RECORDS SUMMARY | 2022-03-03 18:49 | XMS REPORT | Continuity of Care Document ---
:1940 Author Organization [facility] t Address 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 Branch Utility Essential Essential Disease Active Uni [...] Known DA Active U [facility]16 [place] 00:00: [address] No Known DA Active U [facility] 05-20 [place] 00:00: [address] NO KNOWN Drug Active Univers ALLERGIE Class ity of S [facility] NO KNOWN Allergy Active [facility] Social History Social Habit Start Date Stop Date Quantity Comments Source Tobacco Comment quit 30 years Univer sity of ago [facility] Alcohol Comment 3 drinks (vodka) Uni versity of nightly [facility] Sex Assigned At Universit y of [facility] Exposure to Unable to assess Univers ity of SARS-CoV-2 [facility] (event) [place] Tobacco use and 2020-05-30 2020-05-30 Never used Universit y of exposure 00:00:00 00:00:00 [facility] Alcohol intake 2020-05-30 2020-05-30 Current drinker Unive rsity of 00:00:00 00:00:00 of alcohol [facility] (finding) [place] Smoking Status Start Date Stop Date Source Never smoker [facility] Medications Ordered Filled Start Stop Current Ordering Indication Dosage Frequency Signature Comments Components Source Medication Medication Date Date Medication? Clinician (SIG) Name Name ASPIRIN 81 0 Yes once daily U nivers MG ORAL 9-16 ity of CHEW 22:57: [address] magnesium 2019-0 Yes 400mg Take 400 Uni vers oxide 9-16 mg by ity of (MAG-OX 22:57: mouth [place] 400) 400 mg 45 daily. Medica l tablet Branch Cyanocobala Yes Place Unive rs min 9-16 under the ity of (VITAMIN 22:57: tongue. [place] B-12) 2,500 45 Medical mcg Subl Branch CALCIUM 2019-0 Yes [facility] CARBON[facility]/V 9-16 mouth. ity of ITAMIN D3 22:57: [place] (VITAMIN 45 Medical D-3 ORAL) Branch MULTIVITAMI 0 Yes Take by Un audra N 9-16 mouth. ity of W-MINERALS/ 22:57: [place] LUTEIN 45 Medical (CENTRUM Branch SILVER ORAL) ASPIRIN 81 2019-0 Yes once daily U nivers MG ORAL 9-16 ity of CHEW 22:57: [address] Branch magnesium 2020-0 Yes 400mg Take [...] daily. Medical per tablet Branch atorvastati Yes [id number] 20mg Take 1 Univers n 20 mg 9-16 tablet by ity of tablet 00:00: mouth at [place] 00 bedtime. Medical Branch primidone 2019-0 Yes [id number] 50mg Take 1 U nivers 50 mg 9-16 tablet by ity of tablet 00:00: mouth [place] 00 every 12 Medical (twelve) Branch hours. metoprolol 2019-0 Yes [id number] 25mg Take 1 Univers tartrate 25 9-16 tablet by ity of mg tablet 00:00: mouth 2 [place] 00 (two) Medical times Branch daily. sacubitriL- 2020-0 Yes [id number] 1{tbl} Take 1 Univers valsartan 9-16 tablet by ity o f 97-103 mg 00:00: mouth 2 [place] tablet 00 (two) Medical times Branch daily. levoFLOXaci 2019-0 Yes [id number] 500mg Take 1 Univers n 500 mg 9-16 tablet by ity of tablet 00:00: mouth [place] 00 every 24 Medical (twenty-fo Branch ur) hours. acidophilus 2020-0 Yes [id number] 1g Take 1 Univers 100 million 9-16 tablet by ity of cell tablet 00:00: mouth 2 [place] as 00 (two) Medical times Branch daily. atorvastati 2020-0 Yes [id number] 20mg Take 1 Univers n 20 mg 9-16 tablet by ity of tablet 00:00: mouth at [place] 00 bedtime. Medical Branch primidone 2020-0 Yes [id number] 50mg Take 1 U nivers 50 mg 9-16 tablet by ity of tablet 00:00: mouth [place] 00 every 12 Medical (twelve) Branch hours. metoprolol 2020-0 Yes [id number] 25mg Take 1 Univers tartrate 25 9-16 tablet by ity of mg tablet 00:00: mouth 2 [place] 00 (two) Medical times Branch daily. sacubitriL- 2020-0 Yes [id number] 1{tbl} Take 1 Univers valsartan 9-16 tablet by ity o f 97-103 mg 00:00: mouth 2 [place] tablet 00 (two) Medical times Branch daily. levoFLOXaci 2020-0 Yes [id number] 500mg Take 1 Univers n 500 mg 9-16 tablet by ity of tablet 00:00: mouth [place] 00 every 24 Medical (twenty-fo Branch ur) hours. acidophilus 2020-0 Yes [id number] 1g Take 1 Univers 100 million 9-16 tablet by ity of cell tablet 00:00: mouth 2 [place] as 00 (two) Medical times Branch daily. KCL 2020-0 2020- No 20meq 20 mEq, Univers (KLOR-CON 06-03-15 Oral, ONCE ity of M20) tablet 02:30: 01:54 NOW, 1 [place] as 20 mEq 00 :00 dose, [facility] 06/02/20 at Branch 2130, Routine levoFLOXaci 2020-0 Yes 750mg 750 mg, Un audra n 9-14 Oral, ity of (LEVAQUIN) 16:00: Q48H, [place] tablet 750 00 First dose Med ical mg on [facility] Branch 06/02/20 at 1100, Until Discontinu [...] First dose [place] mg 00 on [facility] 06/01/20 at Branch 2215, Until Discontinu ed, Routine bisacodyL 2019- No 10mg 10 mg, Unive rs (DULCOLAX) 06-02 Rectal, ity o f suppository 03:15: 01:59 QHS, 3 [place] as 10 mg 00 :00 doses, Medical First dose Branch on [place] 06/01/20 at 2215, Last dose on Tue06/03/20 at 2100, Routine epoetin 2019- 2020- No 4000U 4,000 Univers renetta-epbx 06-01 Units, ity of (RETACRIT) 19:45: 19:59 Subcutaneo [place] injection 00 :00 us, ONCE, Medic al 4,000 Units 1 dose, Branc h [place] 06/01/20 at 1445, Routine
solar crew member approving Restricted medication : AKILAH ANDRE ANGELES furosemide 2019- No 40mg 40 mg, IV U nivers (LASIX) 06-01 Push, ity of injection 14:00: 17:48 DAILY, [place] 40 mg 00 :15 First dose Medical (after Branch last modificati on) on [place] 06/01/20 at 0900, Until Discontinu ed, LICO ferrous 2019- 2020- No 325mg 325 mg, Unive rs sulfate 06-01 Oral, BID ity of tablet 325 13:00: 01:14 MEALS, [place] mg 00 :51 First dose Medical on [place] Branch 9/13/20 at 0800, Until Discontinu ed, Routine haloperidol 2020-0 Yes 5mg 5 mg, Slow Univers lactate 06-01 IV Push, ity of (HALDOL) 01:16: QHSPRN, [place] injection 5 44 Starting Medi mecca mg [facility] 05/31/20 at 2016, Until Discontinu ed, Routine, insomnia, psychosis, agitation piperacilli 2020-0 2020- No 2.25g 2.25 g, IV Univers n-tazobacta 06-01 Piggyback, i ty of m (ZOSYN) 00:45: 14:59 Q6H ABX, [place] as 2.25 g/50 00 :52 First dose Medi mecca mL RTU on [facility] Branch 05/31/20 at 1945, Until Discontinu ed, 50 mL
Reas on for Anti-Infec tive: Documented Infection< br>Documen moshe Infection Site: Respirator y
Durat ion of Therapy: 10 days KCL 2020-0 2020- No 40meq 40 mEq, Univers (KLOR-CON 06-01 Oral, ity of M20) tablet 00:45: 01:23 ONCE, 1 [place] 40 mEq 00 :00 dose, [facility] Medical 05/31/20 at Branch 1945, Routine magnesium 2019-0 2020- No 2g 2 g, IV Univ ers sulfate in 06-01 Piggyback, it y of water 2 00:45: 01:23 ONCE, 1 [place] gram/50 mL 00 :00 dose, [facility] Medi mecca (4 %) 05/31/20 at [place] infusion 2 1944, g Routine sodium 2019-0 Yes 125mg 125 mg, IV Univ ers ferric 05-31 Piggyback, ity of gluconate 14:00: DAILY, [place] (FERRLECIT) 00 First dose Me dical 125 mg in on [facility] NaCl 0.9% 05/31/20 at (NS) 100 mL 0900, IV Until piggyback Discontinu ed, 100 mL
Facu lty member approving Restricted medication : HELENA KUMAR sulfur 2020-0 2020- No 5mL 5 mL, Univers hexafluorid 05-30 Intravenou i ty of e microsphr 19:00: 16:30 s, ONCE, 1 [place] (LUMASON) 00 :00 dose, Fri Medic al injection 5 05/30/20 at Br anch mL 1400, Routine
solar crew member approving Restricted medication : VANESSA SHAH vancomycin 2020-0 2020- No 15mg/kg 1,000 mg Univers (VANCOCIN) 05-3014 (rounded ity of 1,000 mg in 17:15: 14:59 from 990 [place] NaCl 0.9% 00 :52 mg = 15 Medical (NS) 250 mL mg/kg ?66 [facility] VIAL-MATE kg), IV IV Piggyback, piggyback [...] on Tue Medical tablet 1 05/30/20 at [facility] h tablet 0800, Until Discontinu ed, Routine
solar crew member approving Restricted medication : MEGADC [...] Tue Medica l tablet 500 05/30/20 at [facility] mg 0115, Until Discontinu ed, Routine cholecalcif 2020-0 Yes 1000U 1,000 Univ ers hselley 9-11 Units, ity of (vitamin 06:15: Oral, [...] [place] 60 mg 00 :00 dose, [facility] Medical 05/29/20 at Branch 2215, LICO albuterol 2020- No 8{puff} 8 Puff, U nivers (VENTOLIN) 05-30 Inhalation it y of inhaler 8 01:45: 01:04 , ONCE, 1 [place] Puff 00 :00 dose, [facility] 05/29/20 at Branch 2045, LICO
Is this order for a patient with suspected or confirmed COVID-19 infection? Yes atorvastati 2019- No [id number] 20mg Take 1 Univers n (LIPITOR) 01-27 tablet by it y of 20 mg 00:00: 00:00 mouth at [place] tablet 00 :00 bedtime. Medical Branch Insulin 2020- No [id number] 8U inject 8 U nivers Glargine 01-27 [...] directed ity of (ACCU-CHEK 00:00: [place] WILLIAM) [place] [address] Medical Branch Blood-Gluco Yes Use as [facility] ers se Meter 4-07 directed ity of (ACCU-CHEK 00:00: [place] WILLIAM) [place] [address] Medical Branch EXFORGE 2020- No TAKE 1 [...] mm[Hg] Univer sity of pressure [facility] Diastolic blood 2020-06-04 20:55:00 85 mm[Hg] Unive rsity of pressure [facility] Respiratory rate 2020-06-04 20:55:00 18 /min Univ ersity of [facility] Oxygen saturation in 2020-06-04 20:55:00 92 /min University of Arterial blood by [facility] Pulse oximetry Branch Heart rate 2020-06-04 20:00:00 67 /min Universi ty of [facility] Body temperature 2020-06-04 20:00:00 36.06 Razia Univ ersity of [facility] Body weight 2020-06-03 06:15:00 65.998 kg Universi ty of [facility] BMI 2020-06-03 06:15:00 24.21 kg/m2 Universi ty of [facility] Body height 2020-05-30 06:15:00 165.1 cm Universi ty of [facility] Systolic blood 2020-06-04 20:55:00 156 mm[Hg] Univer sity of pressure [facility] Diastolic blood 2020-06-04 20:55:00 85 mm[Hg] Unive rsity of pressure [facility] Respiratory rate 2020-06-04 20:55:00 18 /min Univ ersity of [facility] Oxygen saturation in 2020-06-04 20:55:00 92 /min University of Arterial blood by [facility] Pulse oximetry Branch Heart rate 2020-06-04 20:00:00 67 /min Universi ty of [facility] Body temperature 2020-06-04 20:00:00 36.06 Razia Univ ersity of [facility] Body weight 2020-06-03 06:15:00 65.998 kg Universi ty of [facility] BMI 2020-06-03 06:15:00 24.21 kg/m2 Universi ty of [facility] Body height 2020-05-30 06:15:00 165.1 cm Universi ty [facility] Procedures Procedure Date / Time Performing Clinician Source Performed POCT GLUCOSE (AUTOMATED) 2020-06-04 21:56:00 Arben Julien Uni versity [facility] POCT GLUCOSE (AUTOMATED) 2020-06-04 16:48:00 Arben Julien Uni versity of [facility] XR CHEST 1 VW 2020-06-04 13:56:16 Vanessa Shah [facility] POCT GLUCOSE (AUTOMATED) 2020-06-04 12:44:00 Arben Julien Uni versity of [facility] POCT GLUCOSE (AUTOMATED) 2020-06-04 01:32:00 Arben Julien Uni versity of [facility] POCT GLUCOSE (AUTOMATED) 2020-06-03 21:46:00 Arben Julien Uni versity of [facility] POCT GLUCOSE (AUTOMATED) 2020-06-03 16:54:00 Arben Julien Uni versity of [facility] POCT GLUCOSE (AUTOMATED) 2020-06-03 12:50:00 Arben Julien Uni versity of [facility] COMP. METABOLIC PANEL 2020-06-03 11:37[id number] CBC WITH DIFF 2020-06-03 11:36:00 Sukhwinder Hughes [facility] POCT GLUCOSE (AUTOMATED) 2020-06-03 01:18:00 Arben Julien Uni versity of [facility] POCT GLUCOSE (AUTOMATED) 2020-06-02 21:22:00 Arben Julien Uni versity of [facility] [place] MODIFIED BARIUM 2020-06-02 19:00:00 Rufus Goodwin [facility] POCT GLUCOSE (AUTOMATED) 2020-06-02 16:59:00 Arben Julien Uni versity of [facility] POCT GLUCOSE (AUTOMATED) 2020-06-02 13:26:00 Arben Julien Uni versity of [place] Medical Branch MAGNESIUM 2020-06-02 10:40:00 Rufus Goodwin [facility] COMP. METABOLIC PANEL 2020-06-02 10:40:00 Buddy [facility] ([id number]) [facility] CBC WITH DIFF 2020-06-02 10:40:00 Arben Julien [facility] POCT GLUCOSE (AUTOMATED) 2020-06-01 21:51:00 Arben Julien Uni versity of [facility] POCT GLUCOSE (AUTOMATED) 2020-06-01 17:00:00 Arben Julien [facility] BLOOD CULTURE SCREEN 2020-06-01 15:42:00 Rufus Goodwin [facility] BLOOD CULTURE SCREEN 2020-06-01 15:29:00 Rufus Goodwin [facility] POCT GLUCOSE (AUTOMATED) 2020-06-01 13:18:00 Arben Julien [facility] MAGNESIUM 2020-06-01 10:14:00 Rufus Goodwin [facility] COMP. METABOLIC PANEL 2020-06-01 10:14:00 Rufus Goodwin [facility] ([id number]) [facility] ACUTE CARE VENOUS BLOOD 2020-06-01 10:14:00 Arben Julien [facility] CBC WITH DIFF 2020-06-01 10:14:00 Wily [facility] N-TERMINAL PRO-BNP 2020-06-01 10:14:00 Arben Julien [facility] POCT GLUCOSE (AUTOMATED) 2020-06-01 00:42:00 Wily hilda [facility] POCT GLUCOSE (AUTOMATED) 2020-05-31 21:51:00 Arben Julien [facility] AMMONIA, PLASMA 2020-05-31 17:01:00 Rufus Goodwin [facility] POCT GLUCOSE (AUTOMATED) 2020-05-31 16:59:00 Arben Julien [facility] URIC ACID 2020-05-31 08:32:00 Wily [facility] MAGNESIUM 2020-05-31 08:32:00 Wily [facility] TROPONIN I 2020-05-31 08:32:00 Wily hilda [facility] COMP. METABOLIC PANEL 2020-05-31 08:32:00 Wily hilda [facility] ([id number]) [facility] CBC WITH DIFF 2020-05-31 08:32:00 Wily [facility] N-TERMINAL PRO-BNP 2020-05-31 08:32:00 Wily hilda [facility] POCT GLUCOSE (AUTOMATED) 2020-05-31 00:32:00 Arben Julien [facility] POCT GLUCOSE (AUTOMATED) 2020-05-30 20:44:00 Wily hilda [facility] POCT GLUCOSE (AUTOMATED) 2020-05-30 17:04:00 Arben Julien [facility] TROPONIN I 2020-05-30 16:25:00 Wily hilda [facility] ECHO ROUTINE W/DOPPLER 2020-05-30 16:08:22 Arben Julien [facility] POCT GLUCOSE (AUTOMATED) 2020-05-30 13:56:00 Arben Julien [facility] CT THORAX WO CONTRAST 2020-05-30 10:26:42 Arben Julien [facility] SEDIMENTATION RATE 2020-05-30 09:51:00 Wily hilda [facility] CBC WITH DIFF 2020-05-30 09:51:00 Wily [facility] URIC ACID 2020-05-30 08:34:00 Wily [facility] MAGNESIUM 2020-05-30 08:34:00 Wily [facility] CORTISOL AM 2020-05-30 08:34:00 Wily [facility] TROPONIN I 2020-05-30 08:34:00 Wily [facility] COMP. METABOLIC PANEL 2020-05-30 08:34:00 Wily hilda [facility] ([id number]) [facility] IRON PANEL 2020-05-30 08:34:00 Wily [facility] N-TERMINAL PRO-BNP 2020-05-30 08:34:00 Wily hilda [facility] LEGIONELLA URINARY 2020-05-30 08:29:00 Wily hilda [facility] ANTIGEN TST [facility] SODIUM, URINE RANDOM 2020-05-30 08:28:00 Wily hilda [facility] PROTEIN CREAT RATIO 2020-05-30 08:28:00 Wily hilda [facility] URINE RANDOM [facility] Branch PNEUMOCOCCAL ANTIGEN 2020-05-30 08:27:00 Arben Julien [facility] OSMOLALITY URINE 2020-05-30 08:25:00 Wily hilda [facility] UREA NITROGEN, URINE 2020-05-30 08:25:00 Arben Julien [facility] RANDOM [facility] URINE CULTURE 2020-05-30 08:24:00 Arben Julien [facility] OSMOLALITY SERUM 2020-05-30 07:08:00 Wily hilda [facility] VITAMIN B12, LEVEL 2020-05-30 07:08:00 Arben Julien [facility] FOLATE 2020-05-30 07:08:00 Arben Julien [facility] PROTHROMBIN TIME / INR 2020-05-30 07:08:00 Arben Julien [facility] MYCOPLASMA PNEUMONIAE 2020-05-30 07:08:00 Arben Julien [facility] ANTIBODY, IGM [facility] VITAMIN D, 25-OH 2020-05-30 07:08:00 Arben Julien [facility] PROCALCITONIN 2020-05-30 07:08:00 Arben Julien [facility] BLOOD CULTURE SCREEN 2020-05-30 07:07:00 Arben Julien [facility] BLOOD CULTURE WORKUP 2020-05-30 07:07:00 Wily hilda [facility] BLOOD CULTURE WORKUP 2020-05-30 07:07:00 Arben Julien [facility] GRAM POSITIVE BLOOD 2020-05-30 07:07:00 [facility] PROBE-AEROBIC RESPIRATORY PANEL BY PCR 2020-05-30 05:20:00 Arben Julien [facility] COVID-19 (PCR MOLECULAR 2020-05-30 05:20:00 Arben Julien [facility] TESTING) [facility] EXTERNAL PROVIDER 2020-05-30 05:01:00 Doctor Unassigned, No Univ [facility] RECORDS Name Medical Branch URINALYSIS 2020-05-30 03:39:00 Trice Kraft [facility] XR CHEST 1 VW 2020-05-30 01:45:07 Trice Kraft [facility] CT HEAD WO CONTRAST 2020-05-30 01:34:53 Trice Kraft [facility] EKG-12 LEAD 2020-05-30 01:08:00 Trice Kraft [facility] AC ABG + LACTIC ACID 2020-05-30 01:06:00 Trice Kraft [facility] POCT GLUCOSE(AGE 2020-05-30 01:04:00 Trice Kraft [facility] >30DAYS) [facility] POCT GLUCOSE (AUTOMATED) 2020-05-30 01:03:00 [facility] 2020-05-30 00:59:00 Wily [facility] CREATINE KINASE 2020-05-30 00:59:00 Wily [facility] URIC ACID 2020-05-30 00:59:00 Wily [facility] MAGNESIUM 2020-05-30 00:59:00 Wily [facility] FERRITIN SERUM 2020-05-30 00:59:00 Wily [facility] TROPONIN I 2020-05-30 00:59:00 Trice Kraft [facility] THYROID STIMULATING 2020-05-30 00:59:00 Wily hilda [facility] HORMONE [facility] COMP. METABOLIC PANEL 2020-05-30 00:59:00 Trice Kraft [facility] ([id number]) [facility] LIPID PANEL 2020-05-30 00:59:00 Wily hilda [facility] ([id number])(TOTAL Medical Branch CHOLESTEROL, TRIGLYCERIDES, HDL) CBC WITH DIFF 2020-05-30 00:59:00 Trice Kraft [facility] GLYCOSYLATED HEMOGLOBIN 2020-05-30 00:59:00 Arben Julien [facility] (A1C) [facility] Branch N-TERMINAL PRO-BNP 2020-05-30 00:59:00 Trice Kraft [facility] COVID-19 (ID NOW RAPID 2020-05-30 00:59:00 Trice Kraft [facility] TESTING) Medical Branch EKG-12 LEAD 2020-05-30 00:39:36 Trice Kraft [facility] NOTICE OF PRIVACY 2020-05-29 23:34:11 Doctor Unassigned, No [facility] PRACTICES Name Medical Branch CONSENT/REFUSAL FOR 2020-05-29 23:33:17 Doctor Unassigned, No [facility] DIAGNOSIS AND TREATMENT Name Medical Branch Encounters Start End Encounter Admission Attending Care Care Encounter Source Date/Time Date/Time Type Type Clinicians Facility Department ID 2022-01-27 Inpatient ALONSO [facility] [id number] [facility] 14:58:54 2022-02-08 2022-02-16 Inpatient ALONSO HU [facility] Surgery [id number] [facility] 14:10:00 16:01:00 2022-02-09 2022-02-09 Outpatient B[facility] BC [id number] [facility] 00:00:00 23:59:00 [facility] 2022-02-08 2022-02-08 Outpatient BCM BCM [id number] [facility] 14:10:00 23:59:00 [facility] 2022-02-08 2022-02-08 Outpatient [facility] [id number] [facility] 00:00:00 00:00:00 2022-01-20 2022-01-25 Inpatient ER [facility] [id number] [facility] 01:13:00 14:52:00 [facility] Med 2022-01-20 2022-01-20 Outpatient BCM BCM [id number] [facility] 00:00:00 23:59:00 [facility] 2020-06-05 2020-06-05 Transition Mary Kay Cerna [id number] Univers 00:00:00 00:00:00 of Care Cody Stover [id number] ity of [place] [id number] Keri katz [id number] [address] 2020-06-05 2020-06-05 Transition Mary Kay Cerna [id number] 00:00:00 00:00:00 of Care Cody Stover [id number] [place] [id number] [id number] 2020-05-29 2020-06-04 [facility] [id number]. [id number] Univers 18:50:00 17:57:00 Encounter [facility] [place] [id number] [id number] [place] [address] Branch 2020-05-29 2020-06-04 [facility] 1.2.840. [id number] 18:50:00 17:57:00 Encounter Wily Arben [place] [id number] [place] [id number] [place] [id number] 2020-05-29 2020-05-29 Emergency X [facility] ERT [id number] Univers 18:28:00 18:28:00 [facility] Results Test Description Test Time Test Comments Results Result Comments Source PHOSPHORUS 2022-02-16 05:32:27 Test Item Value Reference Range Interpretation Comme nts PHOSPHORUS (BEAKER) (test code = 604) 1.9 mg/dL 2.3-4.7 L Input Output Clerk ID - NOLA [id number] 05:32:26 Test Item Value Reference Range Interpretation Comments MAGNESIUM (BEAKER) (test code = 1.6 mg/dL 1.6-2.6 627) Input Output Clerk ID - PIKYLER LBASIC METABOLIC [id number] 05:32:25 Test Item Value Reference Range Interpretation [...] S NOT APPLICABLE FOR DIALYSIS PATIEN TS. Input Output Clerk ID - NOLA LCBC (HEMOGRAM ONLY)2022-02-16 05:05:53 [...] WBC 0-0 (BEAKER) (test code = 413) [id number] 05:55:44 Test Item Value Reference Range Interpretation Comments MAGNESIUM (BEAKER) (test code = 1.5 mg/dL 1.6-2.6 L 627) Input Output Clerk ID Junie [id number] 05:55:44 Test Item Value Reference Range Interpretation Comments PHOSPHORUS (BEAKER) (test code = 1.7 mg/dL 2.3-4.7 L 604) Input Output Clerk AKOSUA FAIRCHILD WBASIC METABOLIC [id number] 05:55:43 Test Item Value Reference Range Interpretation [...] S NOT APPLICABLE FOR DIALYSIS PATIEN TS. Input Output Clerk AKOSUA FAIRCHILD WCBC (HEMOGRAM ONLY)2022-02-15 05:21:42 Test [...] WBC 0-0 (BEAKER) (test code = 413) [id number] 05:25:33 Test Item Value Reference Range Interpretation Comments PHOSPHORUS (BEAKER) (test code = 2.0 mg/dL 2.3-4.7 L 604) Input Output Clerk ID Junie FAIRCHILD WBASIC METABOLIC [id number] 05:25:32 Test Item Value Reference Range Interpretation [...] S NOT APPLICABLE FOR DIALYSIS PATIEN TS. Input Output Clerk ID Junie FAIRCHILD [id number] 05:25:32 Test Item Value Reference Range Interpretation Comments MAGNESIUM (BEAKER) (test code = 1.4 mg/dL 1.6-2.6 L 627) Input Output Clerk ID Junie FAIRCHILD WCBC (HEMOGRAM ONLY)2022-02-14 04:52:12 [...] (BEAKER) (test code = 413) HEPATIC FUNCTION [id number] 08:20:57 Test Item Value Reference Range Interpretation [...] (test code = 28 U/L 6-55 347) Input Output Clerk ID Junie CERVANTES [id number] 07:17:48 Test Item Value Reference Range Interpretation Comments PHOSPHORUS (BEAKER) (test code = 2.2 mg/dL 2.3-4.7 L 604) Input Output Clerk ID - SHANITA MBASIC METABOLIC [id number] 07:17:47 Test Item Value Reference Range Interpretation [...] S NOT APPLICABLE FOR DIALYSIS PATIEN TS. Input Output Clerk ID - SHANITA [id number] 07:17:47 Test Item Value Reference Range Interpretation Comments MAGNESIUM (BEAKER) (test code = 1.6 mg/dL 1.6-2.6 627) Input Output Clerk ID Junie DIEHL MCBC (HEMOGRAM ONLY)2022-02-13 06:47:08 [...] (BEAKER) (test code = 413) BASIC METABOLIC [id number] 18:14:02 Test Item Value Reference Range Interpretation [...] S NOT APPLICABLE FOR DIALYSIS PATIEN TS. Input Output Clerk ID - [id number] 07:28:46 Test Item Value Reference Range Interpretation Comments PHOSPHORUS (BEAKER) (test code = 2.8 mg/dL 2.3-4.7 604) Input Output Clerk ID - DBBASIC METABOLIC [id number] 07:28:45 Test Item Value Reference Range Interpretation [...] S NOT APPLICABLE FOR DIALYSIS PATIEN TS. Input Output Clerk ID - [id number] 07:28:45 Test Item Value Reference Range Interpretation Comments MAGNESIUM (BEAKER) (test code = 1.5 mg/dL 1.6-2.6 L 627) Input Output Clerk ID - DBCBC (HEMOGRAM ONLY)2022-02-12 07:08:20 Test [...] WBC 0-0 (BEAKER) (test code = 413) [id number] 06:24:12 Test Item Value Reference Range Interpretation Comments MAGNESIUM (BEAKER) (test code = 1.8 mg/dL 1.6-2.6 627) Input Output Clerk ID - [id number] 06:24:12 Test Item Value Reference Range Interpretation Comments PHOSPHORUS (BEAKER) (test code = 3.3 mg/dL 2.3-4.7 604) Input Output Clerk ID - BSBASIC METABOLIC [id number] 06:24:11 Test Item Value Reference Range Interpretation [...] S NOT APPLICABLE FOR DIALYSIS PATIEN TS. Input Output Clerk ID - BSCBC (HEMOGRAM ONLY)2022-02-11 06:01:14 Test [...] 0-0 (BEAKER) (test code = 413) POCT-GLUCOSE [id number] 17:35:30 Test Item Value Reference Range Interpretation Comments POC-GLUCOSE METER 157 mg/dL 70-110 H : TESTED A T [facility] 6720 (BEAKER) (test [facility] = [facility], 1538) [address]: Input Output Clerk/Techni diaz ID = [id number] for Cesar Torres (CELLAVISION MANUAL DIFF)2022-02-10 13:48:38 [...] CONCENTRATION Decreased (CELLAVISION)(BEAKER) (test code = 3438) Input Output Clerk ID - Roseann OverholtUser comments: Slide comments:CBC W/PLT COUNT & AUTO [id number] 13:48:37 Test Item Value Reference Range Interpretation [...] WBC 0-0 (BEAKER) (test code = 413) [id number] 13:31:32 Test Item Value Reference Range Interpretation Comments MAGNESIUM (BEAKER) (test code = 1.9 mg/dL 1.6-2.6 627) Input Output Clerk ID - [id number] 13:31:32 Test Item Value Reference Range Interpretation Comments PHOSPHORUS (BEAKER) (test code = 3.4 mg/dL 2.3-4.7 604) Input Output Clerk ID - ADMINBASIC METABOLIC [id number] 13:31:31 Test Item Value Reference Range Interpretation [...] S NOT APPLICABLE FOR DIALYSIS PATIEN TS. Input Output Clerk ID - ADMINLACTIC ACID, [id number] 13:24:59 Test Item Value Reference Range Interpretation Comments LACTATE BLOOD ARTERIAL (2) 1.3 mmol/L 0.5-2.2 (BEAKER) (test code = 2874) Input Output Clerk ID - ADMINBLOOD GAS, [id number] 13:17:20 Test Item Value Reference Range Interpretation [...] (BEAKER) (test code = 1819) 21.0 POCT-GLUCOSE [id number] 12:17:28 Test Item Value Reference Range Interpretation Comments POC-GLUCOSE METER 212 mg/dL 70-110 H : TESTED A T [facility] 6720 (BEAKER) (test code = [facility], 1538) [address]: Input Output Clerk/Techni diaz ID = [id number] for Po tts, Laly MISCELLANEOUS LAB [id number] 09:24:20 Test Item Value Reference Range Interpretation Comments SCAN RESULT (test code = See scanned report. [id number]) See scanned reportPOCT-GLUCOSE [id number] 07:22:09 Test Item Value Reference Range Interpretation Comments POC-GLUCOSE METER 102 mg/dL 70-110 : TESTED A T [facility] 6720 (BEAKER) (test code = [facility], 1538) [address]: Input Output Clerk/Techni diaz ID = [id number] for Po tts, Laly POCT-GLUCOSE [id number] 06:34:44 Test Item Value Reference Range Interpretation Comments POC-GLUCOSE METER 85 mg/dL 70-110 : TESTED A T [facility] 6720 (BEAKER) (test code = [facility], 1538) [address]: Input Output Clerk/Techni diaz ID = [id number] for NGUY EN, DUNG [id number] 04:15:39 Test Item Value Reference Range Interpretation Comments MAGNESIUM (BEAKER) (test code = 2.0 mg/dL 1.6-2.6 627) Input Output Clerk ID - SHANITA [id number] 04:15:39 Test Item Value Reference Range Interpretation Comments PHOSPHORUS (BEAKER) (test code = 3.3 mg/dL 2.3-4.7 604) Input Output Clerk ID - SHANITA MBASIC METABOLIC [id number] 04:15:38 Test Item Value Reference Range Interpretation [...] S NOT APPLICABLE FOR DIALYSIS PATIEN TS. Input Output Clerk ID - SHANITA MLACTIC ACID, [id number] 04:05:11 Test Item Value Reference Range Interpretation Comments LACTATE BLOOD ARTERIAL (2) 0.8 mmol/L 0.5-2.2 (BEAKER) (test code = 2874) Input Output Clerk ID - SHANITA MCBC (HEMOGRAM ONLY)2022-02-10 04:00:32 [...] 0-0 (BEAKER) (test code = 413) POCT-GLUCOSE [id number] 02:46:41 Test Item Value Reference Range Interpretation Comments POC-GLUCOSE METER 128 mg/dL 70-110 H : TESTED A T [facility] 6720 (BEAKER) (test code = [facility], [facility]8) [address]: Input Output Clerk/Techni diaz ID = [id number] for NG RICA, DUNG POCT-GLUCOSE [id number] 00:38:12 Test Item Value Reference Range Interpretation Comments POC-GLUCOSE METER 138 mg/dL 70-110 H : TESTED A T [facility] 6720 (BEAKER) (test code = [facility], [facility]) [address]: Input Output Clerk/Techni diaz ID = [id number] for NG RICA, DUNG POCT-GLUCOSE [id number] 23:17:27 Test Item Value Reference Range Interpretation Comments POC-GLUCOSE METER 141 mg/dL 70-110 H : TESTED A T [facility] 6720 (BEAKER) (test code = [facility], [facility]) 327[address]: Input Output Clerk/Techni diaz ID = [id number] for NG RICA, DUNG POCT-GLUCOSE [id number] 22:20:14 Test Item Value Reference Range Interpretation Comments POC-GLUCOSE METER 151 mg/dL 70-110 H : TESTED A T [facility] 6720 (BEAKER) (test code = [facility], [facility]) [address]40[address]: Input Output Clerk/Techni diaz ID = [id number] for NG RICA, DUNG LACTIC ACID, [id number] 21:08:39 Test Item Value Reference Range Interpretation Comments LACTATE BLOOD ARTERIAL (2) 1.6 mmol/L 0.5-2.2 (BEAKER) (test code = 2874) Input Output Clerk ID - BSBLOOD GAS, [id number] 20:52:38 Test Item Value Reference Range Interpretation [...] (BEAKER) (test code = 1819) 36.0 POCT-GLUCOSE [id number] 20:21:03 Test Item Value Reference Range Interpretation Comments POC-GLUCOSE METER 155 mg/dL 70-110 H : TESTED A T [facility] 6720 (BEAKER) (test code = [facility], 1538) [address]78[address]: Input Output Clerk/Techni diaz ID = [id number] for NG LALITHA STRAUSS BLOOD GAS, [id number] 18:55:30 Test Item Value Reference Range Interpretation [...] (BEAKER) (test code = 1819) 40.0 GLUCOSE-STAT [id number] 18:55:30 Test Item Value Reference Range Interpretation Comments GLUCOSE RANDOM (BEAKER) (test code 169 mg/dL 70-110 H = 652) POCT-GLUCOSE [id number] 18:02:09 Test Item Value Reference Range Interpretation Comments POC-GLUCOSE METER 157 mg/dL 70-110 H : TESTED A T [facility] 6720 (BEAKER) (test code = [facility], 153) [address]: Input Output Clerk/Techni diaz ID = [id number] for BR MALIKCAROLE LACTIC ACID, [id number] 16:37:27 Test Item Value Reference Range Interpretation Comments LACTATE BLOOD 2.0 mmol/L 0.5-2.2 Specimen sligh tly ARTERIAL (2) (BEAKER) hemoly zed (test code = 2874) Input Output Clerk ID - BSGLUCOSE-STAT [id number] 16:37:22 Test Item Value Reference Range Interpretation Comments GLUCOSE RANDOM (BEAKER) (test code 169 mg/dL 70-110 H = 652) BLOOD GAS, [id number] 16:37:21 Test Item Value Reference Range Interpretation [...] CONCENTRATION Adequate (CELLAVISION)(BEAKER) (test code = 3438) Input Output Clerk ID - [id number] ID - Sangeetha Francisco comments: Slide comments:BASIC METABOLIC [id number] 15:14:24 Test Item Value Reference Range Interpretation [...] S NOT APPLICABLE FOR DIALYSIS PATIEN TS. Input Output Clerk ID - [id number] 15:14:07 Test Item Value Reference Range Interpretation Comments MAGNESIUM (BEAKER) (test code = 2.0 mg/dL 1.6-2.6 627) Input Output Clerk ID - [id number] 15:14:07 Test Item Value Reference Range Interpretation Comments PHOSPHORUS (BEAKER) (test code = 2.0 mg/dL 2.3-4.7 L 604) Input Output Clerk ID - [id number] 15:04:40 Test Item Value Reference Range Interpretation Comments PARTIAL THROMBOPLASTIN TIME 35.9 seconds 22.5-36.0 (BEAKER) (test code = 760) PROTHROMBIN [id number] 15:04:03 Test Item Value Reference Range Interpretation Comments PROTIME (BEAKER) 16.2 seconds 11.9-14.2 H (test code = 759) INR (BEAKER) (test 1.32 See_Comment [Automat ed message] code = 370) The system [employer] generated this result transmitted ref erence range: <=5.90. The reference range was not used to int erpret this result as normal/abnormal . RECOMMENDED COUMADIN/WARFARIN INR THERAPY RANGESSTANDARD DOSE: 2.0 - 3.0 Includes: PROPHYLAXIS forvenous thrombosis, systemic embolization; TREATMENT for venous thrombosis and/or pulmonary embolus.HIGH RISK: Target INR is 2.5-3.5 for patients with mechanical heart valves.LACTIC ACID, [id number] 15:03:00 Test Item Value Reference Range Interpretation Comments LACTATE BLOOD ARTERIAL (2) 1.3 mmol/L 0.5-2.2 (BEAKER) (test code = 2874) Input Output Clerk ID - BSCBC W/PLT COUNT & AUTO [id number] 15:00:31 Test Item Value Reference Range Interpretation [...] 0-0 (BEAKER) (test code = 413) CALCIUM, [id number] 14:48:27 Test Item Value Reference Range Interpretation Comments CALCIUM IONIZED (BEAKER) (test 1.04 mmol/L 1.12-1.27 L code = 698) PH, BLOOD (BEAKER) (test code = 7.35 1810) BLOOD GAS, [id number] 14:48:12 Test Item Value Reference Range Interpretation [...] (test code = 1819) 60.0 OXYGEN SATURATION, [id number] 14:47:33 Test Item Value Reference Range Interpretation Comments O2 SATURATION (MEASURED) (BEAKER) 84.4 % (test code = 1455) CBC W/PLT COUNT & AUTO [id number] 14:41:20 Test Item Value Reference Range Interpretation [...] H PERCENT (BEAKER) (test code = 2801) [id number] 13:18:44 Test Item Value Reference Range Interpretation Comments ACTIVATED CLOTTING TIME 136 sec : 74 -137 seconds, (BEAKER) (test code = Baseli ne: TESTED AT 441) [place] [address] 30: Input Output Clerk/Techni diaz ID = [id number] for TORIN ZUNIGA KATINA [id number] 13:18:43 Test Item Value Reference Range Interpretation Comments ACTIVATED CLOTTING TIME 535 sec : 74 -137 seconds, (BEAKER) (test code = Baseli ne: TESTED AT 441) [place] [address] 30: Input Output Clerk/Techni diaz ID = [id number] for CA STRO, SONJA [id number] 13:18:42 Test Item Value Reference Range Interpretation Comments ACTIVATED CLOTTING TIME 654 sec : 74 -137 seconds, (BEAKER) (test code = Baseli ne: TESTED AT 441) [place] [address] 30: Input Output Clerk/Techni diaz ID = [id number] for CA STRO, SONJA [id number] 13:18:42 Test Item Value Reference Range Interpretation Comments ACTIVATED CLOTTING TIME 696 sec : 74 -137 seconds, (BEAKER) (test code = Baseli ne: TESTED AT 441) [place] [address] 30: Input Output Clerk/Techni diaz ID = [id number] for CA STRO, SONJA [id number] 13:18:41 Test Item Value Reference Range Interpretation Comments ACTIVATED CLOTTING TIME 696 sec : 74 -137 seconds, (BEAKER) (test code = Baseli ne: TESTED AT 441) [place] [address] 30: Input Output Clerk/Techni diaz ID = [id number] for CA STRO, SONJA [id number] 12:54:23 Test Item Value Reference Range Interpretation Comments FIBRINOGEN LEVEL (BEAKER) (test 435 mg/dl 225-434 H code = 658) PROTHROMBIN [id number] 12:54:06 Test Item Value Reference Range Interpretation Comments PROTIME (BEAKER) 18.0 seconds 11.9-14.2 H (test code = 759) INR (BEAKER) (test 1.52 See_Comment [Automat ed message] code = 370) The system [employer] generated this result transmitted ref erence range: <=5.90. The reference range was not used to int erpret this result as normal/abnormal . RECOMMENDED COUMADIN/WARFARIN INR THERAPY RANGESSTANDARD DOSE: 2.0 - 3.0 Includes: PROPHYLAXIS forvenous thrombosis, systemic embolization; TREATMENT for venous thrombosis and/or pulmonary embolus.HIGH RISK: Target INR is 2.5-3.5 for patients with mechanical heart valves.PLATELET [id number] 12:40:20 Test Item Value Reference Range Interpretation Comments PLATELET COUNT (BEAKER) (test 179 K/CU MM 150-450 code = 756) Input Output Clerk ID - [id number]-STAT [id number] 12:32:34 Test Item Value Reference Range Interpretation Comments GLUCOSE RANDOM (BEAKER) (test code 243 mg/dL 70-110 H = 652) HGB/HCT (H&H) - STAT [id number] 12:32:34 Test Item Value Reference Range Interpretation Comments HEMOGLOBIN (BEAKER) (test code = 9.0 GM/DL 13.0-16.8 L 410) HEMATOCRIT (BEAKER) (test code = 26.0 % 40.0-50.0 L 411) BLOOD GAS, [id number] 12:32:33 Test Item Value Reference Range Interpretation [...] (test code = 1819) 100.0 SODIUM NA-STAT [id number] 12:32:33 Test Item Value Reference Range Interpretation Comments SODIUM (BEAKER) (test code = 381) 131 meq/L 136-145 L POTASSIUM-STAT [id number] 12:32:17 Test Item Value Reference Range Interpretation Comments POTASSIUM (BEAKER) (test code = 3.8 meq/L 3.6-5.5 379) GLUCOSE-STAT [id number] 11:50:14 Test Item Value Reference Range Interpretation Comments GLUCOSE RANDOM (BEAKER) (test code 263 mg/dL 70-110 H = 652) HGB/HCT (H&H) - STAT [id number] 11:50:14 Test Item Value Reference Range Interpretation Comments HEMOGLOBIN (BEAKER) (test code = 7.6 GM/DL 13.0-16.8 L 410) HEMATOCRIT (BEAKER) (test code = 22.0 % 40.0-50.0 L 411) BLOOD GAS, [id number] 11:50:13 Test Item Value Reference Range Interpretation [...] (test code = 1819) 73.0 SODIUM NA-STAT [id number] 11:50:13 Test Item Value Reference Range Interpretation Comments SODIUM (BEAKER) (test code = 381) 129 meq/L 136-145 L POTASSIUM-STAT [id number] 11:50:02 Test Item Value Reference Range Interpretation Comments POTASSIUM (BEAKER) (test code = 4.8 meq/L 3.6-5.5 379) GLUCOSE-STAT [id number] 11:14:52 Test Item Value Reference Range Interpretation Comments GLUCOSE RANDOM (BEAKER) (test code 249 mg/dL 70-110 H = 652) HGB/HCT (H&H) - STAT [id number] 11:14:52 Test Item Value Reference Range Interpretation Comments HEMOGLOBIN (BEAKER) (test code = 7.5 GM/DL 13.0-16.8 L 410) HEMATOCRIT (BEAKER) (test code = 22.0 % 40.0-50.0 L 411) BLOOD GAS, [id number] 11:14:51 Test Item Value Reference Range Interpretation [...] (test code = 1819) 85.0 SODIUM NA-STAT [id number] 11:14:51 Test Item Value Reference Range Interpretation Comments SODIUM (BEAKER) (test code = 381) 129 meq/L 136-145 L POTASSIUM-STAT [id number] 11:13:51 Test Item Value Reference Range Interpretation Comments POTASSIUM (BEAKER) (test code = 5.0 meq/L 3.6-5.5 379) HGB/HCT (H&H) - STAT [id number] 10:55:39 Test Item Value Reference Range Interpretation Comments HEMOGLOBIN (BEAKER) (test code = 7.3 GM/DL 13.0-16.8 L 410) HEMATOCRIT (BEAKER) (test code = 21.0 % 40.0-50.0 L 411) SODIUM NA-STAT [id number] 10:55:38 Test Item Value Reference Range Interpretation Comments SODIUM (BEAKER) (test code = 381) 129 meq/L 136-145 L GLUCOSE-STAT [id number] 10:55:38 Test Item Value Reference Range Interpretation Comments GLUCOSE RANDOM (BEAKER) (test code 183 mg/dL 70-110 H = 652) BLOOD GAS, [id number] 10:55:37 Test Item Value Reference Range Interpretation [...] (BEAKER) (test code = 1819) 100.0 POTASSIUM-STAT [id number] 10:55:23 Test Item Value Reference Range Interpretation Comments POTASSIUM (BEAKER) (test code = 3.8 meq/L 3.6-5.5 379) GLUCOSE-STAT [id number] 09:02:47 Test Item Value Reference Range Interpretation Comments GLUCOSE RANDOM (BEAKER) (test code 174 mg/dL 70-110 H = 652) HGB/HCT (H&H) - STAT [id number] 09:02:47 Test Item Value Reference Range Interpretation Comments HEMOGLOBIN (BEAKER) (test code = 10.7 GM/DL 13.0-16.8 L 410) HEMATOCRIT (BEAKER) (test code = 31.0 % 40.0-50.0 L 411) BLOOD GAS, [id number] 09:02:46 Test Item Value Reference Range Interpretation [...] (test code = 1819) 100.0 SODIUM NA-STAT [id number] 09:02:46 Test Item Value Reference Range Interpretation Comments SODIUM (BEAKER) (test code = 381) 132 meq/L 136-145 L POTASSIUM-STAT [id number] 09:01:48 Test Item Value Reference Range Interpretation Comments POTASSIUM (BEAKER) (test code = 3.7 meq/L 3.6-5.5 379) HEMOGLOBIN [id number] 08:53:38 Test Item Value Reference Range Interpretation [...] 5.7- 6.4% indicates increased risk for diabetes (prediabetes)."Input Output Clerk ID - ADMOperator ID - ADMSARS-COV2/RT-PCR ([facility])2022-02-09 07:17:40 Test Item Value Reference Range Interpretation Comments SARS-COV2/RT-PCR Negative Negative The SARS-Co V-2 target (test code = nucleic acids a re not 1838838) detected in thi s specimen. Negative result [...] revoked sooner. Fact Sheet for Healthcare Providers: https://www.[employer]/Documents/Xpert%20Xpress%20SARS%20CoV-2/Fact%20Sheets/3023802%20SARS-COV -2%20HEALTHCARE%20PROVIDERS%20FACT%20SHEET.pdf Fact Sheet for Healthcare Patients: https://www.[employer]/Documents/Xpert %20Xpress%20SARS%20CoV-2/Fact%20Sheets/3023801%90ZYTH-GAY-5%20PATIENT%20FACT%20 SHEET.pdfURINALYSIS W/ [id number] 18:08:55 Test Item Value Reference Range Interpretation [...] = 1521) SOURCE(BEAKER) (test code = 2795) Input Output Clerk ID - [auto]Input Output Clerk ID - techBASIC METABOLIC [id number] 16:04:23 Test Item Value Reference Range Interpretation [...] S NOT APPLICABLE FOR DIALYSIS PATIEN TS. Input Output Clerk ID - [id number] 16:01:10 Test Item Value Reference Range Interpretation Comments PHOSPHORUS (BEAKER) (test code = 2.5 mg/dL 2.3-4.7 604) Input Output Clerk ID - BSLIPID [id number] 16:01:10 Test Item Value Reference Range Interpretation [...] Borderline 130-159 High 160-189 Very High >=190 Input Output Clerk ID - [id number] 16:01:09 Test Item Value Reference Range Interpretation Comments MAGNESIUM (BEAKER) (test code = 2.2 mg/dL 1.6-2.6 627) Input Output Clerk ID - BSCBC W/PLT COUNT & AUTO [id number] 15:48:35 Test Item Value Reference Range Interpretation [...] 0-1 PERCENT (BEAKER) (test code = 2801) [id number] 15:32:17 Test Item Value Reference Range Interpretation Comments PARTIAL THROMBOPLASTIN TIME 38.8 seconds 22.5-36.0 H (BEAKER) (test code = 760) PROTHROMBIN [id number] 15:31:59 Test Item Value Reference Range Interpretation Comments PROTIME (BEAKER) 13.2 seconds 11.9-14.2 (test code = 759) INR (BEAKER) (test 1.02 See_Comment [Automat ed message] code = 370) The system [employer] generated this result transmitted ref erence range: [...] Interpretation Comments SCAN RESULT (test code = 1435967) PHOSPHATIDYLETHANOL, [id number] 11:24:39 Test Item Value Reference Range Interpretation Comments PHOSPHATIDYLETHANOL (PETH) See scanned (test code = 6937144) report See scanned reportPOCT-GLUCOSE [id number] 09:57:09 Test Item Value Reference Range Interpretation Comments POC-GLUCOSE METER 216 mg/dL 70-110 H : TESTED A T [facility] 6720 (BEAKER) (test code = [place], 1538) [address]: Input Output Clerk/Techni diaz ID = [id number] for Aleksey munroe (pca2)Pebbles BASIC METABOLIC [id number] 05:33:08 Test Item Value Reference Range Interpretation [...] S NOT APPLICABLE FOR DIALYSIS PATIEN TS. Input Output Clerk ID - PIAYA LCBC W/PLT COUNT & AUTO [id number] 04:37:52 Test Item Value Reference Range Interpretation [...] PERCENT (BEAKER) (test code = 2801) POCT-GLUCOSE [id number] 16:00:26 Test Item Value Reference Range Interpretation Comments POC-GLUCOSE METER 399 mg/dL 70-110 H : TESTED A T [facility] 6720 (BEAKER) (test code = [facility] [place], 1538) [address]: Input Output Clerk/Techni diaz ID = [id number] for Efren mengMaribel BASIC METABOLIC [id number] 06:39:45 Test Item Value Reference Range Interpretation [...] S NOT APPLICABLE FOR DIALYSIS PATIEN TS. Input Output Clerk ID - PIAYA LCBC W/PLT COUNT & AUTO [id number] 05:29:49 Test Item Value Reference Range Interpretation [...] PERCENT (BEAKER) (test code = 2801) POCT-GLUCOSE [id number] 21:12:45 Test Item Value Reference Range Interpretation Comments POC-GLUCOSE METER 156 mg/dL 70-110 H : Notified RN/MD: (GAEL) (test code = TESTED AT [place] [address] 153) [facility], [address]: Input Output Clerk/Techni diaz ID = [id number] for HAZEL CHUN POCT-GLUCOSE [id number] 19:36:30 Test Item Value Reference Range Interpretation Comments POC-GLUCOSE METER 209 mg/dL 70-110 H : Notified RN/MD: (GAEL) (test code = TESTED AT [place] [address] 1538) [facility], [address]: Input Output Clerk/Techni diaz ID = [id number] for HAZEL CHUN POCT-GLUCOSE [id number] 16:34:24 Test Item Value Reference Range Interpretation Comments POC-GLUCOSE METER 414 mg/dL 70-110 HH : [facility]MD: [facility] (test code AT [address] = 1538) [facility], 770 30: Input Output Clerk/Techni diaz ID = [id number] for Kemiag delmyCarriree POCT-GLUCOSE [id number] 12:12:54 Test Item Value Reference Range Interpretation Comments POC-GLUCOSE METER 180 mg/dL 70-110 H : TESTED A T [place] [address] ([facility]) (test code [facility], = 1538) [address]: Input Output Clerk/Techni diaz ID = [id number] for Bhag delmy, Rajashree POCT-GLUCOSE [id number] 07:53:32 Test Item Value Reference Range Interpretation Comments POC-GLUCOSE METER 263 mg/dL 70-110 H : TESTED A T [facility] (BEAKER) (test code [facility], = 1538) [address]: Input Output Clerk/Techni diaz ID = [id number] for Anabel Silverio COMPREHENSIVE METABOLIC [id number] 07:29:57 Test Item Value Reference Range Interpretation [...] S NOT APPLICABLE FOR DIALYSIS PATIEN TS. Input Output Clerk ID - SHANITA MSpecimen slightly ictericCBC W/PLT COUNT & AUTO [id number] 07:13:58 Test Item Value Reference Range Interpretation [...] PERCENT (BEAKER) (test code = 2801) POCT-GLUCOSE [id number] 21:11:42 Test Item Value Reference Range Interpretation Comments POC-GLUCOSE METER 138 mg/dL 70-110 H : Notified RN/MD: (BEAKER) (test code = TESTED AT [place] [address]38) [facility], [address]: Input Output Clerk/Techni diaz ID = [id number] for HAZEL CHUN POCT-GLUCOSE [id number] 16:54:38 Test Item Value Reference Range Interpretation Comments POC-GLUCOSE METER 327 mg/dL 70-110 H : TESTED A T [facility] 6720 (BEAKER) (test code [facility], = 1538) [address]: Input Output Clerk/Techni diaz ID = [id number] for WILS ON, SHASTANIE HEPATIC FUNCTION [id number] 08:53:43 Test Item Value Reference Range Interpretation [...] code = 359 U/L 6-55 H 347) Input Output Clerk ID - DBSpecimen slightly ictericPOCT-GLUCOSE [id number] 08:02:49 Test Item Value Reference Range Interpretation Comments POC-GLUCOSE METER 262 mg/dL 70-110 H : TESTED A T [facility] 6720 (BEAKER) (test code [facility], = 1538) [address]: Input Output Clerk/Techni diaz ID = [id number] for WILS ON, SHASTANIE BASIC METABOLIC [id number] 05:00:34 Test Item Value Reference Range Interpretation [...] S NOT APPLICABLE FOR DIALYSIS PATIEN TS. Input Output Clerk ID - CLAUDIO GSpecimen slightly ictericCBC W/PLT COUNT & AUTO [id number] 04:57:06 Test Item Value Reference Range Interpretation [...] (BEAKER) (test code = 2801) U/S, RENAL, [id number] 00:08:00Reason for exam:->[facility] JO[facility]PH[facility]: ENMA YOUNG : 1940 Sex: MFINAL REPORT [...] [place] MDReport Verified Date/Time: 01/22/2022 00:08:17 POCT-GLUCOSE [id number] 21:45:31 Test Item Value Reference Range Interpretation Comments POC-GLUCOSE METER 258 mg/dL 70-110 H : TESTED A T [facility] (BEAKER) (test code = LATOYA LYON MS, 1538) 89198: Input Output Clerk/Techni diaz ID = [id number] for STACEY GARRETT CREATININE, RANDOM [id number] 19:56:51 Test Item Value Reference Range Interpretation Comments CREATININE URINE (BEAKER) (test 23.7 mg/dL code = 375) Reference Range: No NormalsOperator ID - DBPROTEIN, RANDOM [id number] 19:56:51 Test Item Value Reference Range Interpretation Comments PROTEIN, URINE (BEAKER) (test code = 62 mg/dL 0-14 H 1569) Input Output Clerk ID - DBURINALYSIS W/ [id number] 19:47:32 Test Item Value Reference Range Interpretation [...] = 1521) SOURCE(BEAKER) (test code = 2795) Input Output Clerk ID - [auto]Input Output Clerk ID - techPOCT-GLUCOSE [id number] 16:23:46 Test Item Value Reference Range Interpretation Comments POC-GLUCOSE METER 270 mg/dL 70-110 H : TESTED A T [facility] 6720 (BEAKER) (test code = [facility], 153) 23693: Input Output Clerk/Techni diaz ID = [id number] for DEONNA GREENE, JENNIFFER KAMAR TITER AND [id number] 11:55:46 Test Item Value Reference Range Interpretation Comments KAMAR TITER (BEAKER) (test code = :40 1541) KAMAR PATTERN (BEAKER) (test code = Homogeneous 1781) ANTI-NUCLEAR ANTIBODY (KAMAR)2022-01-21 11:55:40 Test Item Value Reference Range Interpretation Comments ANTI-NUCLEAR ANTIBODY (KAMAR) (BEAKER) Positive Negative A (test code = 418) Test performed by IFA method.POCT-GLUCOSE [id number] 11:43:49 Test Item Value Reference Range Interpretation Comments POC-GLUCOSE METER 225 mg/dL 70-110 H : TESTED A T [facility] 6720 (BEAKER) (test code = [facility], 1538) 74935: Input Output Clerk/Techni diaz ID = [id number] for MARTHA DUFFYRosa HEPATIC FUNCTION [id number] 10:49:28 Test Item Value Reference Range Interpretation [...] code = 455 U/L 6-55 H 347) Input Output Clerk ID - BSSpecimen moderately ictericPOCT-GLUCOSE [id number] 08:08:00 Test Item Value Reference Range Interpretation Comments POC-GLUCOSE METER 172 mg/dL 70-110 H : TESTED A T [facility] 6720 (BEAKER) (test code = [place], 1538) 49479: Input Output Clerk/Techni diaz ID = [id number] for ELIZABETH DUFFY CBC W/PLT COUNT & AUTO [id number] 05:10:56 Test Item Value Reference Range Interpretation [...] (BEAKER) (test code = 2801) BASIC METABOLIC [id number] 05:03:58 Test Item Value Reference Range Interpretation [...] S NOT APPLICABLE FOR DIALYSIS PATIEN TS. Input Output Clerk ID - SHANITA MSpecimen slightly [id number] 04:54:21 Test Item Value Reference Range Interpretation Comments MAGNESIUM (ANDREWAKER) (test code = 1.9 mg/dL 1.6-2.6 627) Input Output Clerk ID - SHANITA MU/S, ABDOMINAL, WITH [id number] 00:51:00Reason for exam:->elevated lfts [facility] EN[facility] YOU[facility] : 1940 Sex: MFINAL REPORT [...] Ward MDReport Verified Date/Time: 01/21/2022 00:51:44 POCT-GLUCOSE [id number] 21:06:06 Test Item Value Reference Range Interpretation Comments POC-GLUCOSE METER 248 mg/dL 70-110 H : TESTED A T [facility] 67[address] ([employer]) (test code = [place], 1538) 53201: Input Output Clerk/Techni diaz ID = [id number] for STACEY GARRETT HEPATITIS B CORE ANTIBODY, [id number] 18:10:17 Test Item Value Reference Range Interpretation Comments HEPATITIS B CORE TOTAL ANTIBODY Reactive Nonreactive A (BEAKER) (test code = 497) Input Output Clerk ID - BSOperator ID - BSOperator ID - BSHEPATITIS C [id number] 17:50:30 Test Item Value Reference Range Interpretation Comments HEPATITIS C ANTIBODY (BEAKER) Nonreactive Nonreactive (test code = 367) Input Output Clerk ID - BSHEPATITIS B SURFACE [id number] 17:50:24 Test Item Value Reference Range Interpretation Comments HEPATITIS B SURFACE ANTIGEN (2) Nonreactive Nonreactive (BEAKER) (test code = 2585) Specimen is considered negative for HBsAg.HEPATITIS B SURFACE [id number] 17:50:24 Test Item Value Reference Range Interpretation Comments HEPATITIS B SURFACE ANTIBODY 830.9 mIU/mL <8.0 H (BEAKER) (test code = 647) Input Output Clerk ID - BSHEPATITIS B CORE ANTIBODY, [id number] 17:36:49 Test Item Value Reference Range Interpretation Comments HEPATITIS B CORE IGM ANTIBODY Nonreactive Nonreactive (BEAKER) (test code = 645) Input Output Clerk ID - BSHEPATITIS A ANTIBODY, [id number] 17:36:49 Test Item Value Reference Range Interpretation Comments HEPATITIS A IGG ANTIBODY (BEAKER) Nonreactive Nonreactive (test code = 2797) Input Output Clerk ID - BSALPHA FETOPROTEIN (AFP), TUMOR [id number] 17:36:48 Test Item Value Reference Range Interpretation Comments ALPHA-FETOPROTEIN (BEAKER) (test 3.7 ng/mL <10.0 code = 1094) Input Output Clerk ID - BSIMMUNOGLOBULIN G (IGG)2022-01-20 17:15:56 Test Item Value Reference Range Interpretation Comments IMMUNOGLOBULIN G (IGG) 1081 mg/dL See_Comment [Aut omated message] (BEAKER) (test code = The sy stem which 427) generated this result transmit moshe reference range : 540-1,822. The reference range was not used to interpret this result as normal/abnormal . Input Output Clerk ID - BSIRON, TIBC, % SAT. (WITHOUT FERRITIN)2022-01-20 17:15:56 Test Item Value Reference Range Interpretation Comments IRON (BEAKER) (test code = 547) 94.0 ug/dL 40.0-160.0 TOTAL IRON BINDING CAPACITY 245 ug/dL 250-450 L (BEAKER) (test code = 769) IRON % SATURATION (2) (BEAKER) 38 % 20-55 (test code = 2590) Input Output Clerk ID - BSPOCT-GLUCOSE [id number] 16:55:44 Test Item Value Reference Range Interpretation Comments POC-GLUCOSE METER 226 mg/dL 70-110 H : TESTED A T [facility] 6720 (BEAKER) (test code = [place], 1538) 18877: Input Output Clerk/Techni diaz ID = [id number] for MELECIOTIM Lauryn MILLER [id number]-1-[id number] 16:54:50 Test Item Value Reference Range Interpretation Comments ALPHA-1 ANTITRYPSIN (BEAKER) 162.50 mg/dL 90.00-200.00 (test code = 502) Input Output Clerk ID - [id number] 16:52:28 Test Item Value Reference Range Interpretation Comments FERRITIN (BEAKER) (test code = 1286.44 ng/mL 5.00-275.00 H 361) Input Output Clerk ID - BSPOCT-GLUCOSE [id number] 11:44:46 Test Item Value Reference Range Interpretation Comments POC-GLUCOSE METER 207 mg/dL 70-110 H : TESTED A T [facility] 6720 (GAEL) (test code [facility], = 1538) 19197: Input Output Clerk/Techni diaz ID = [id number] for RED MCKEE HEMOGLOBIN [id number] 10:30:47 Test Item Value Reference Range Interpretation [...] 5.7- 6.4% indicates increased risk for diabetes (prediabetes)."Input Output Clerk ID - KAMI, CHEST, 2 [id number] 10:28:00Reason for exam:->concern for heart failureDiagnosis:->Shortness of breath [facility] EN[facility] YOUNG : 1940 Sex: MFINAL REPORT [...] Poole Verified Date/Time: 01/20/2022 10:28:13 Reading Location: [facility] Radiology Reading Room POCT- GLUCOSE [id number] 07:47:02 Test Item Value Reference Range Interpretation Comments POC-GLUCOSE METER 173 mg/dL 70-110 H : TESTED A T [facility] 6720 (BEAKER) (test code [facility], = 1538) 90907: Input Output Clerk/Techni diaz ID = [id number] for RED MCKEE POCT-GLUCOSE [id number] 03:51:00 Test Item Value Reference Range Interpretation Comments POC-GLUCOSE METER 188 mg/dL 70-110 H : TESTED A T [facility] 6720 (BEAKER) (test code = [place] [facility], 1538) 10360: Input Output Clerk/Techni diaz ID = [id number] for DEE THERESAHAZEL AREVALO BASIC METABOLIC [id number] 03:35:28 Test Item Value Reference Range Interpretation [...] S NOT APPLICABLE FOR DIALYSIS PATIEN TS. Input Output Clerk ID - SHANITA MSpecimen moderately ictericB-TYPE NATRIURETIC FACTOR (BNP) 2022-01-20 03:16:05 Test Item Value Reference Range Interpretation Comments B-TYPE NATRIURETIC PEPTIDE (BEAKER) 319 pg/mL 0-100 H (test code = 700) Input Output Clerk ID Junie DIEHL MHIGH SENSITIVITY TROPONIN [id number] 03:16:00 Test Item Value Reference Range Interpretation Comments HIGH SENSITIVITY 35 pg/ml See_Comment [Automated message] TROPONIN I (test code = The system which 0416286) generated this result transmitted ref erence range: <=35. Th e reference range was not used to int erpret this result as normal/abnormal . Input Output Clerk ID - SHANITA MThe SENIOR CYBER INTELLIGENCE ANALYST STAT High Sensitivity Troponin-I results should be used in conjunction with other diagnostic information such as ECG, clinical observations and information, and patient symptoms to aid in the diagnosis of [place].HEPATIC FUNCTION [id number] 03:14:30 Test Item Value Reference Range Interpretation [...] code = 666 U/L 6-55 H 347) Input Output Clerk ID - SHANITA MSpecimen moderately [id number] 03:14:29 Test Item Value Reference Range Interpretation Comments MAGNESIUM (BEAKER) (test code = 1.6 mg/dL 1.6-2.6 627) Input Output Clerk ID Junie DIEHL MLIPID [id number] 03:14:29 Test Item Value Reference Range Interpretation [...] Borderline 130-159 High 160-189 Very High >=190 Input Output Clerk ID - SHANITA MSpecimen moderately ictericCBC W/PLT COUNT & AUTO [id number] 02:51:43 Test Item Value Reference Range Interpretation [...] Interpretation Comments POCT GLU (test code = 9125978418) 133 mg/dL 70-110 H Lab Interpretation (test code = Abnormal 42060-1) [facility] 17:13:00 Test Item Value Reference Range Interpretation Comments POCT GLU (test code = 4135056837) 154 mg/dL 70-110 H Lab Interpretation (test code = Abnormal 30939-0) [facility] HospitalXR [facility]ST 1 [id number] 14:00:56HISTORY: Follow-up of CHF. TECHNIQUE: AP view [...] ifany, residual pulmonary edema seen at this time.[facility], Radiant Results Inft User - 06/04/2020 9:02 [...] ifany, residual pulmonary edema seen at this time.[facility] GLUCOSE (AUTOMATED)2020-06-04 13:19:00 Test Item Value Reference Range Interpretation Comments POCT GLU (test code = 8081877693) 98 mg/dL 70-110 Lab Interpretation (test code = Normal 30289-5) [facility] GLUCOSE (AUTOMATED)2020-06-04 01:35:00 Test Item Value Reference Range Interpretation Comments POCT GLU (test code = 1126368655) 192 mg/dL 70-110 H Lab Interpretation (test code = Abnormal 91975-9) [facility] GLUCOSE (AUTOMATED)2020-06-03 21:51:00 Test Item Value Reference Range Interpretation Comments POCT GLU (test code = 4931287274) 98 mg/dL 70-110 Lab Interpretation (test code = Normal 04930-7) [facility] GLUCOSE (AUTOMATED)2020-06-03 17:28:00 Test Item Value Reference Range Interpretation Comments POCT GLU (test code = 1905440353) 195 mg/dL 70-110 H Lab Interpretation (test code = Abnormal 73643-2) [facility] GLUCOSE (AUTOMATED)2020-06-03 13:43:00 Test Item Value Reference Range Interpretation Comments POCT GLU (test code = 0059073796) 98 mg/dL 70-110 Lab Interpretation (test code = Normal 82555-1) [facility] WITH [id number] 13:10:00 Test Item Value Reference Range Interpretation [...] RDW-SD (test code = 46.4 fL 38.5-51.6 15933-0) RDW-CV (test code = 13.7 % 12.1-15.4 788-0) PLT (test code = See_Comment L [Automated 777-3) message] The sy stem which generated this result transmitted reference range : 150 - 328 10*3/ ?L. The reference r martin was not used to interpret this result as normal/abnormal . MPV (test code = 10.5 fL 9.8-13 26721-4) NRBC/100 WBC (test See_Comment [Automat ed code = 1163763920) message] The system which generated this result transmitted reference range : 0.0 - 10.0 /100 WBCs. The refer ence range was not u sed to interpret th is result as normal/abnormal . NRBC x10^3 (test code <0.01 See_Comment [Auto mated = 8644036294) message] The s ystem which generated this result transmitted reference range : 10*3/?L. The reference range was not used to interpret this result as normal/abnormal . GRAN MAT (NEUT) % 55.9 % (test code = 770-8) IMM GRAN % (test code 0.40 % = 5563007161) LYMPH % (test code = 16.5 % 736-9) MONO % (test code = 12.4 % 5905-5) EOS % (test code = 14.0 % 713-8) BASO % (test code = 0.8 % 706-2) GRAN MAT x10^3(ANC) 1.35 10*3/uL 1.99-6.95 L (test code = 1620000352) IMM GRAN x10^3 (test <0.03 0-0.06 code = 4841359810) LYMPH x10^3 (test code 0.40 10*3/uL 1.09-3.23 L = 731-0) MONO x10^3 (test code 0.30 10*3/uL 0.36-1.02 L = 742-7) EOS x10^3 (test code = 0.34 10*3/uL 0.06-0.53 711-2) BASO x10^3 (test code <0.03 0.01-0.09 = 704-7) Lab Interpretation Abnormal (test code = 82643-3) [facility]OL[facility] (01969)2020-06-03 12:46:00 Test Item Value Reference Range Interpretation Comments NA (test code = 136 mmol/L 135-145 3183640841) K (test code = 3.9 mmol/L 3.5-5 1224254949) CL (test code = 100 mmol/L 98-108 6414637981) CO2 TOTAL (test code = 27 mmol/L 23-31 4543250919) AGAP (test code = 2-16 5923480739) BUN (test code = 37 mg/dL 7-23 H 3523344997) GLUCOSE (test code = 87 mg/dL 70-110 4416736365) CREATININE (test code = 1.85 mg/dL 0.6-1.25 H 2357155203) TOTAL BILI (test code = 0.4 mg/dL 0.1-1.8 4677681888) CALCIUM (test code = 9.4 mg/dL 8.6-10.6 7399209123) T PROTEIN (test code = 6.3 g/dL 6.3-8.2 5489333900) ALBUMIN (test code = 3.2 g/dL 3.5-5 L 1619084946) ALK PHOS (test code = 58 U/L 34-122 0695739408) ALTv (test code = 22 U/L 5-50 1742-6) AST(SGOT) (test code = 31 U/L 13-40 8636456975) eGFR Calculation mL/min/1.73m2 (Non-) (test code = 5331330984) eGFR Calculation mL/min/1.73m2 () (test code = 9981243557) EMIR (test code = EMIR) Association of [...] tests). Lab Interpretation Abnormal (test code = 72925-4) [facility]2020-06-03 01:56:00 Test Item Value Reference Range Interpretation Comments POCT GLU (test code = 8973281922) 152 mg/dL 70-110 H Lab Interpretation (test code = Abnormal 26916-5) [facility] HospitalMOD BARIUM SWALLOW, (COOKIE)2020-06-02 23:24:43 Flash laryngeal penetration [...] nectar thick liquid, puree or jewelry solids. [facility], Radiant Results Inft User- 06/02/2020 6:25 PM [...] to the speech pathologist's report for further details.[facility] GLUCOSE (AUTOMATED)2020-06-02 21:24:00 Test Item Value Reference Range Interpretation Comments POCT GLU (test code = 129 mg/dL 70-110 H Notifi ed Provider [id number]) Lab Interpretation (test Abnormal code = 48415-5) [facility] GLUCOSE (AUTOMATED)2020-06-02 17:12:00 Test Item Value Reference Range Interpretation Comments POCT GLU (test code = 159 mg/dL 70-110 H Notifi ed Provider [id number]) Lab Interpretation (test Abnormal code = 00775-9) [facility] WITH [id number] 14:34:00 Test Item Value Reference Range Interpretation Comments WBC (test code = See_Comment L [Automated 4390-2) message] The sy stem which generated this result transmitted reference range : 4.20 - 10.70 10*3/?L. The reference range was not used to interpret this result as normal/abnormal . RBC (test code = See_Comment L [Automated 519-8) message] The sy stem which generated this [...] RDW-SD (test code = 46.7 fL 38.5-51.6 55936-7) RDW-CV (test code = 13.9 % 12.1-15.4 788-0) PLT (test code = See_Comment [Automated 777-3) message] The sy stem which generated this result transmitted reference range : 150 - 328 10*3/ ?L. The reference r martin was not used to interpret this result as normal/abnormal . MPV (test code = 10.4 fL 9.8-13 89065-9) NRBC/100 WBC (test See_Comment [Automat ed code = 9634710906) message] The system which generated this result transmitted reference range : 0.0 - 10.0 /100 WBCs. The refer ence range was not u sed to interpret th is result as normal/abnormal . NRBC x10^3 (test code <0.01 See_Comment [Auto mated = 4920254938) message] The s ystem which generated this result transmitted reference range : 10*3/?L. The reference range was not used to interpret this result as normal/abnormal . GRAN MAT (NEUT) % 58.9 % (test code = 770-8) IMM GRAN % (test code 0.40 % = 6882086556) LYMPH % (test code = 11.3 % 736-9) MONO % (test code = 10.8 % 5905-5) EOS % (test code = 17.3 % 713-8) BASO % (test code = 1.3 % 706-2) GRAN MAT x10^3(ANC) 1.36 10*3/uL 1.99-6.95 L (test code = 1737566813) IMM GRAN x10^3 (test <0.03 0-0.06 code = 6351431958) LYMPH x10^3 (test code 0.26 10*3/uL 1.09-3.23 L = 731-0) MONO x10^3 (test code 0.25 10*3/uL 0.36-1.02 L = 742-7) EOS x10^3 (test code = 0.40 10*3/uL 0.06-0.53 711-2) BASO x10^3 (test code 0.03 10*3/uL 0.01-0.09 = 704-7) Lab Interpretation Abnormal (test code = 17522-4) [facility]2020-[facility]-02 13:45:00 Test Item Value Reference Range Interpretation Comments POCT GLU (test code = 5233825724) 105 mg/dL 70-110 Lab Interpretation (test code = Normal 75128-6) [facility]BL[facility]URE [id number] 13:39:00 Test Item Value Reference Range Interpretation Comments Blood Culture Staphylococcus Organism elvia ntified Workup (test epidermidis by DNA probeFor code = 600-7) susceptibility results, refer to culture # - [id number] Gram stain Gram positive cocci Anaerobi c Bottle (test code = 664-3) [facility]. METABOLIC PANEL (34722)2020-06-02 13:10:00 Test Item Value Reference Range Interpretation Comments NA (test code = 133 mmol/L 135-145 L 3873587784) K (test code = 3.4 mmol/L 3.5-5 L 8706356749) CL (test code = 96 mmol/L 98-108 L 4135271626) CO2 TOTAL (test code = 28 mmol/L 23-31 3815422347) AGAP (test code = 2-16 6901196488) BUN (test code = 34 mg/dL 7-23 H 2489488006) GLUCOSE (test code = 135 mg/dL 70-110 H 3703220643) CREATININE (test code = 1.83 mg/dL 0.6-1.25 H 3326517962) TOTAL BILI (test code = 0.4 mg/dL 0.1-1.0 0736101046) CALCIUM (test code = 9.4 mg/dL 8.6-10.6 8058900813) T PROTEIN (test code = 6.0 g/dL 6.3-8.2 L 9022029907) ALBUMIN (test code = 3.1 g/dL 3.5-5 L 3427628468) ALK PHOS (test code = 52 U/L 34-122 8096776243) ALTv (test code = 25 U/L 5-50 1742-6) AST(SGOT) (test code = 31 U/L 13-40 4959561829) eGFR Calculation mL/min/1.73m2 (Non-) (test code = 8621022407) eGFR Calculation mL/min/1.73m2 () (test code = 7377185788) EMIR (test code = EMIR) Association of [...] tests). Lab Interpretation Abnormal (test code = 27982-8) [facility]UM2020-09-14 13:10:00 Test Item Value Reference Range Interpretation Comments MAGNESIUM (test code = 3523086357) 1.8 mg/dL 1.7-2.4 Lab Interpretation (test code = Normal 51478-8) [facility] HospitalMYCOPLASMA PNEUMONIAE ANTIBODY, [id number] 11:34:00 Test Item Value Reference Range Interpretation [...] an 12 months post-infection. Performed By: YUMIKO amado[address] [place] [address] [id number] aboratory Director: Julisa Choi MD [Aut omated message] The sy stem which generated this result transmit moshe reference range : <=0.76. The reference r martin was not used to int erpret this result as normal/abnormal . [facility]BL[facility] [id number] 22:31:00 Test Item Value Reference Range Interpretation Comments Blood Culture-Aerobic Culture positive. No growth AA P revious (test code = 22649-3) See Blood prelim inary Culture Workup verified resu lt for additional was Culture I n information. Progress on 05/30/2020 at 03 19 CDT Blood Culture positive. No growth AA Previous Culture-Anaerobic See Blood preliminar y (test code = 04056-1) Culture Workup veri fied result for additional was Culture I n information. Progress on 05/30/2020 at 03 19 CDT Lab Interpretation Abnormal (test code = 43732-3) [facility] GLUCOSE (AUTOMATED)2020-06-01 21:59:00 Test Item Value Reference Range Interpretation Comments POCT GLU (test code = 9244738025) 101 mg/dL 70-110 Lab Interpretation (test code = Normal 08346-8) [facility] GLUCOSE (AUTOMATED)2020-06-01 17:53:00 Test Item Value Reference Range Interpretation Comments POCT GLU (test code = 5209595806) 184 mg/dL 70-110 H Lab Interpretation (test code = Abnormal 22443-8) [facility] [id number] 17:20:00 Test Item Value Reference Range Interpretation Comments Blood Culture-Aerobic Culture positive. No growth AA P revious (test code = 58733-3) See Blood prelim inary Culture Workup verified resu lt for additional was Culture I n information. Progress on 05/30/2020 at 03 19 CDT Blood Culture positive. No growth AA Previous Culture-Anaerobic See Blood preliminar y (test code = 09534-1) Culture Workup veri fied result for additional was Culture I n information. Progress on 05/30/2020 at 03 19 CDT Lab Interpretation Abnormal (test code = 11492-2) [facility] GLUCOSE (AUTOMATED)2020-06-01 13:22:00 Test Item Value Reference Range Interpretation Comments POCT GLU (test code = 7935194755) 109 mg/dL 70-110 Lab Interpretation (test code = Normal 00247-4) [facility] WITH [id number] 11:12:00 Test Item Value Reference Range Interpretation [...] RDW-SD (test code = 46.0 fL 38.5-51.6 35047-8) RDW-CV (test code = 13.8 % 12.1-15.4 788-0) PLT (test code = See_Comment L [Automated 777-3) message] The sy stem which generated this result transmitted reference range : 150 - 328 10*3/ ?L. The reference r martin was not used to interpret this result as normal/abnormal . MPV (test code = 10.3 fL 9.8-13 28486-7) NRBC/100 WBC (test See_Comment [Automat ed code = 0201495060) message] The system which generated this result transmitted reference range : 0.0 - 10.0 /100 WBCs. The refer ence range was not u sed to interpret th is result as normal/abnormal . NRBC x10^3 (test code <0.01 See_Comment [Auto mated = 0725912003) message] The s ystem which generated this result transmitted reference range : 10*3/?L. The reference range was not used to interpret this result as normal/abnormal . GRAN MAT (NEUT) % 71.9 % (test code = 770-8) IMM GRAN % (test code 0.30 % = 1001889381) LYMPH % (test code = 8.0 % 736-9) MONO % (test code = 10.5 % 5905-5) EOS % (test code = 8.4 % 713-8) BASO % (test code = 0.9 % 706-2) GRAN MAT x10^3(ANC) 2.32 10*3/uL 1.99-6.95 (test code = 0897745368) IMM GRAN x10^3 (test <0.03 0-0.06 code = 5612624721) LYMPH x10^3 (test code 0.26 10*3/uL 1.09-3.23 L = 731-0) MONO x10^3 (test code 0.34 10*3/uL 0.36-1.02 L = 742-7) EOS x10^3 (test code = 0.27 10*3/uL 0.06-0.53 711-2) BASO x10^3 (test code 0.03 10*3/uL 0.01-0.09 = 704-7) Lab Interpretation Abnormal (test code = 08806-8) [facility] HospitalN-TERMINAL [id number] 11:07:00 Test Item Value Reference Range Interpretation Comments NT-proBNP (test code 28727 pg/mL See_Comment H [Autom ated = 6184404949) message] The system which generated this result transmitted reference range : <=450. The reference range was not used to interpret this result as normal/abnormal . EMIR (test code = EMIR) Biotin has been reported to cause a negative bias, interpret results relative to patient's use of biotin. Lab Interpretation Abnormal (test code = 52041-7) [facility]OL[facility] PAN[facility] (19058)2020-06-01 11:03:00 Test Item Value Reference Range Interpretation Comments NA (test code = 136 mmol/L 135-145 6024025877) K (test code = 3.9 mmol/L 3.5-5 9201380782) CL (test code = 97 mmol/L 98-108 L 1919081362) CO2 TOTAL (test code = 30 mmol/L 23-31 0519179730) AGAP (test code = 2-16 6597861937) BUN (test code = 34 mg/dL 7-23 H 4706073328) GLUCOSE (test code = 112 mg/dL 70-110 H 3486806124) CREATININE (test code = 1.81 mg/dL 0.6-1.25 H 7927962758) TOTAL BILI (test code = 0.5 mg/dL 0.1-1.4 6667862958) CALCIUM (test code = 9.5 mg/dL 8.6-10.6 4151179986) T PROTEIN (test code = 6.2 g/dL 6.3-8.2 L 6526526538) ALBUMIN (test code = 3.2 g/dL 3.5-5 L 5715568328) ALK PHOS (test code = 58 U/L 34-122 5677426817) ALTv (test code = 32 U/L 5-50 1742-6) AST(SGOT) (test code = 38 U/L 13-40 5753710381) eGFR Calculation mL/min/1.73m2 (Non-) (test code = 3962523395) eGFR Calculation mL/min/1.73m2 () (test code = 0973913213) EMIR (test code = EMIR) Association of [...] tests). Lab Interpretation Abnormal (test code = 97711-0) [facility]2020-09-13 11:03:00 Test Item Value Reference Range Interpretation Comments MAGNESIUM (test code = 1783138481) 2.0 mg/dL 1.7-2.4 Lab Interpretation (test code = Normal 71745-4) [facility] VENOUS BLOOD [id number] 10:21:00 Test Item Value Reference Range Interpretation Comments PH (test code = 7.32-7.42 8718733927) PCO2 GIFTY (test code = See_Comment [Auto mated message] The 7791781218) system which [employer] nerated this result transmit moshe reference range : 41 - 51 mmHg. The refer ence range was not used to interpret this result as normal/abnormal . PO2 GIFTY (test code = See_Comment [Autom ated message] The 7065597722) system which [employer] nerated this result transmit moshe reference range : 25 - 40 mmHg. The refer ence range was not used to interpret this result as normal/abnormal . HCO3 GIFTY (test code = See_Comment [Auto mated message] The 4947011496) system which [employer] nerated this result transmit moshe reference range : 24 - 28 mEq/L. The refe rence range was not used to interpret this result as normal/abnormal . AC VBE(BEAKER) (test mEq/L code = 9876370449) [facility] GLUCOSE (AUTOMATED)2020-06-01 01:53:00 Test Item Value Reference Range Interpretation Comments POCT GLU (test code = 2211118506) 124 mg/dL 70-110 H Lab Interpretation (test code = Abnormal 25147-0) [facility] GLUCOSE (AUTOMATED)2020-05-31 22:35:00 Test Item Value Reference Range Interpretation Comments POCT GLU (test code = 0646705345) 105 mg/dL 70-110 Lab Interpretation (test code = Normal 87681-2) [facility] GLUCOSE (AUTOMATED)2020-05-31 17:52:00 Test Item Value Reference Range Interpretation Comments POCT GLU (test code = 1141562209) 106 mg/dL 70-110 Lab Interpretation (test code = Normal 60490-8) [facility] [id number] 17:33:00 Test Item Value Reference Range Interpretation Comments AMMONIA (test code = 0435531781) <9 9-33 L Lab Interpretation (test code = Abnormal 66011-0) [facility] HospitalGRAM POSITIVE BLOOD PATHOGENS DNA [id number] 14:44:00 Test Item Value Reference Range Interpretation Comments Coagulase Negative Positive Negative A Staphylococcus (test code = 05973-8) EMIR (test code = EMIR) Coagulase negative [...] contact the Antimicrobial Stewardship Program with questions.Pager: ?[phone] Testing included eleven identification and three resistance marker targets. Lab Interpretation Abnormal (test code = 42456-4) [facility]2020-[facility] 13:09:00 Test Item Value Reference Range Interpretation Comments POCT GLU (test code = 3775185905) 154 mg/dL 70-110 H Lab Interpretation (test code = Abnormal 03039-6) [facility]URINE [id number] 12:11:00 Test Item Value Reference Range Interpretation Comments URINE CULTURE (test No aerobic growth (< code = 630-4) 1000 CFU/mL) [facility] HospitalN-TERMINAL [id number] 11:51:00 Test Item Value Reference Range Interpretation Comments NT-proBNP (test code 49724 pg/mL See_Comment H [Autom ated = 1102011478) message] The system which generated this result transmitted reference range : <=450. The reference range was not used to interpret this result as normal/abnormal . EMIR (test code = EMIR) Biotin has been reported to cause a negative bias, interpret results relative to patient's use of biotin. Lab Interpretation Abnormal (test code = 61328-4) [facility]UR[facility] [id number] 11:25:00 Test Item Value Reference Range Interpretation Comments URIC ACID (test code = 3880927270) 9.0 mg/dL 3.6-8 H Lab Interpretation (test code = Abnormal 19746-6) [facility] WITH [id number] 11:02:00 Test Item Value Reference Range Interpretation [...] RDW-SD (test code = 47.7 fL 38.5-51.6 24445-9) RDW-CV (test code = 14.0 % 12.1-15.4 788-0) PLT (test code = See_Comment L [Automated 777-3) message] The sy stem which generated this result transmitted reference range : 150 - 328 10*3/ ?L. The reference r martin was not used to interpret this result as normal/abnormal . MPV (test code = 10.5 fL 9.8-13 58268-3) NRBC/100 WBC (test See_Comment [Automat ed code = 2901548226) message] The system which generated this result transmitted reference range : 0.0 - 10.0 /100 WBCs. The refer ence range was not u sed to interpret th is result as normal/abnormal . NRBC x10^3 (test code <0.01 See_Comment [Auto mated = 2048026927) message] The s ystem which generated this result transmitted reference range : 10*3/?L. The reference range was not used to interpret this result as normal/abnormal . GRAN MAT (NEUT) % 81.0 % (test code = 770-8) IMM GRAN % (test code 0.40 % = 6985276945) LYMPH % (test code = 4.8 % 736-9) MONO % (test code = 11.5 % 5905-5) EOS % (test code = 1.7 % 713-8) BASO % (test code = 0.6 % 706-2) GRAN MAT x10^3(ANC) 4.23 10*3/uL 1.99-6.95 (test code = 1128975824) IMM GRAN x10^3 (test <0.03 0-0.06 code = 2390170140) LYMPH x10^3 (test code 0.25 10*3/uL 1.09-3.23 L = 731-0) MONO x10^3 (test code 0.60 10*3/uL 0.36-1.02 = 742-7) EOS x10^3 (test code = 0.09 10*3/uL 0.06-0.53 711-2) BASO x10^3 (test code 0.03 10*3/uL 0.01-0.09 = 704-7) Lab Interpretation Abnormal (test code = 13262-4) [facility] HospitalNITESHFORMERLY [facility] [id number] 10:45:00 Test Item Value Reference Range Interpretation Comments TROPONIN I (test 0.167 ng/mL See_Comment H [Automated code = 4853989689) message] The system which generated this result [...] ? Lab Interpretation Abnormal (test code = 32005-2) [facility]. METABOLIC PANEL (35940)2020-05-31 10:35:00 Test Item Value Reference Range Interpretation Comments NA (test code = 133 mmol/L 135-145 L 1925637427) K (test code = 3.4 mmol/L 3.5-5 L 1015728967) CL (test code = 95 mmol/L 98-108 L 4004295804) CO2 TOTAL (test code = 29 mmol/L 23-31 2800645694) AGAP (test code = 2-16 0769338660) BUN (test code = 36 mg/dL 7-23 H 8339164868) GLUCOSE (test code = 136 mg/dL 70-110 H 3415510071) CREATININE (test code = 1.71 mg/dL 0.6-1.25 H 0277223570) TOTAL BILI (test code = 0.8 mg/dL 0.1-1.8 5137891514) CALCIUM (test code = 9.4 mg/dL 8.6-10.6 5917138705) T PROTEIN (test code = 6.5 g/dL 6.3-8.2 1012603552) ALBUMIN (test code = 3.4 g/dL 3.5-5 L 3128203976) ALK PHOS (test code = 59 U/L 34-122 1420352382) ALTv (test code = 35 U/L 5-50 1742-6) AST(SGOT) (test code = 42 U/L 13-40 H 1835677803) eGFR Calculation mL/min/1.73m2 (Non-) (test code = 2648084564) eGFR Calculation mL/min/1.73m2 () (test code = 8115174577) EMIR (test code = EMIR) Association of [...] tests). Lab Interpretation Abnormal (test code = 70641-6) [facility] Test Item Value Reference Range Interpretation Comments MAGNESIUM (test code = 6771768268) 1.4 mg/dL 1.7-2.4 L Lab Interpretation (test code = Abnormal 76107-8) [facility] GLUCOSE (AUTOMATED)2020-05-30 21:17:00 Test Item Value Reference Range Interpretation Comments POCT GLU (test code = 6662265914) 105 mg/dL 70-110 Lab Interpretation (test code = Normal 48063-7) [facility] HospitalPNEUMOCOCCAL [id number] 19:20:00 Test Item Value Reference Range Interpretation Comments S. pneumoniae antigen Positive Negative A (test code = 8811765080) EMIR (test code = EMIR) S. pneumoniae vaccine may give false positive results in urine with this assay in the 48 hours following vaccination. Lab Interpretation (test Abnormal code = 65709-1) [facility] HospitalLEGIONELLA URINARY ANTIGEN [id number] 19:20:00 Test Item Value Reference Range Interpretation Comments Legionella Urinary Negative Negative Antigen (test code = 2778718721) EMIR (test code = EMIR) Negative for [...] test. Lab Interpretation (test Normal code = 42724-5) [facility] HospitalCORTISOL [id number] 18:48:00 Test Item Value Reference Range Interpretation Comments SHAYY AM (test code = 23.8 ug/dL 4.5-23 H 4677928559) EMIR (test code = EMIR) Biotin has been reported to cause a positive bias, interpret results relative to patient's use of biotin. Lab Interpretation (test Abnormal code = 86322-3) [facility] GLUCOSE (AUTOMATED)2020-05-30 17:17:00 Test Item Value Reference Range Interpretation Comments POCT GLU (test code = 4800326165) 117 mg/dL 70-110 H Lab Interpretation (test code = Abnormal 10518-1) [facility] HospitalTROPONIN [id number] 17:14:00 Test Item Value Reference Range Interpretation Comments TROPONIN I (test 0.222 ng/mL See_Comment H [Automated code = 9539465135) message] The system which generated this result [...] ? Lab Interpretation Abnormal (test code = 31086-2) [facility] HospitalOSMOLALITY [id number] 16:53:00 Test Item Value Reference Range Interpretation Comments OSMO U (test code = See_Comment [Automa moshe message] 6417962845) The system [employer] generated this result transmitted ref erence range: 50-1,100 mOsm/kg. The re ference range was not u sed to interpret this result as normal/abnor mal. Lab Interpretation (test Normal code = 35373-7) [facility] HospitalVITAMIN D, [id number] 16:43:00 Test Item Value Reference Range Interpretation Comments VIT D 25OH (test code = 29 ng/mL 25-80 85376-3) EMIR (test code = EMIR) Deficiency: <20 ng/mLInsufficiency : 20-24 ng/mLOptimal: 25-80 ng/mL Lab Interpretation (test Normal code = 43116-3) [facility] HospitalUREA NITROGEN, URINE [id number] 15:44:00 Test Item Value Reference Range Interpretation Comments UREA N UR (test code = 8840515408) 114 mg/dL [facility] HospitalCT THORAX WO [id number] 15:23:12 1. ?Pulmonary edema with moderate volume [...] sagittal MPR images were generated and reviewed.(Display obkyd-ay-uiff = 35 cm) FINDINGS: Lower neck/thyroid: Unremarkable. [...] sagittal MPR images were generated and reviewed.(Display awvfy-rn-ddqi = 35 cm)FINDINGS:Lower neck/thyroid: Unremarkable.Lungs: Centrilobular septal [...] reviewed this study and agree with theabove report.[facility]PO[facility] 2020-05-30 14:53:00 Test Item Value Reference Range Interpretation Comments POCT GLU (test code = 0217822284) 100 mg/dL 70-110 Lab Interpretation (test code = Normal 74967-8) [facility] HospitalVITAMIN B12, [id number] 13:07:00 Test Item Value Reference Range Interpretation Comments VIT B12 (test code = 412 pg/mL 240-930 8799458655) EMIR (test code = EMIR) Biotin has been reported to cause a positive bias, interpret results relative to patient's use of biotin. Lab Interpretation (test Normal code = 13067-6) [facility] HospitalFOLATE2020-09-11 13:07:00 Test Item Value Reference Range Interpretation Comments FOLATE SER (test code = 8.4 ng/mL 3-20 Biot in has been 9953067142) reported to cau se a positive bias, interpret resul ts relative to patient's use o f biotin. Lab Interpretation (test Normal code = 24629-2) [facility] HospitalCORONAVIRUS COVID-19 [id number] 12:49:00 Test Item Value Reference Range Interpretation Comments SARS-CoV-2 PCR (test Not Detected Not Detected code = 01414-3) EMIR (test code = EMIR) maniaTVid Xpert ?Xpress SARS-CoV-2 Assay is a rapid, real-time RT-PCR test intended for the qualitative detection of nucleic acid from the SARS-CoV-2 in nasopharyngeal (TENTERING MACHINE OFF BEARER) specimens. It is used under Emergency Use [...] indicated. Lab Interpretation Normal (test code = 22343-2) [facility] HospitalRESPIRATORY PANEL BY [id number] 12:44:00 Test Item Value Reference Range Interpretation Comments Adenovirus (test code = Negative Negative 13256-0) Coronavirus HKU1 (test Negative Negative code = 30459-0) Coronavirus NL63 (test Negative Negative code = 98088-4) Coronavirus 229E (test Negative Negative code = 15856-1) Coronavirus OC43 (test Negative Negative code = 56750-0) Human Metapneumovirus Negative Negative (test code = 37577-6) Human Negative Negative Rhinovirus/Enterovirus (test code = 00094-7) Influenza A (test code = Negative Negative 60281-4) Influenza B (test code = Negative Negative 57639-9) Parainfluenza Virus 1 Negative Negative (test code = 22167-4) Parainfluenza Virus 2 Negative Negative (test code = 88752-7) Parainfluenza Virus 3 Negative Negative (test code = 41340-8) Parainfluenza Virus 4 Negative Negative (test code = 61350-7) Respiratory Syncytial Negative Negative Virus (test code = 48956-9) Bordetella parapertussis Negative Negative (test code = 92991-4) Bordetella pertussis Negative Negative (test code = 55046-0) Chlamydia pneumoniae Negative Negative (test code = 54808-5) Mycoplasma pneumoniae Negative Negative (test code = 78267-4) EMIR (test code = EMIR) Negative:A negative result does not rule-out infection. ?This assay does not test for all potential infectious agents. ? Positive:A positive test result does not necessarily indicate the presence of viable organism. ? Lab Interpretation (test Normal code = 65453-0) [facility] HospitalPROCALCITONIN2020-09-11 12:14:00 Test Item Value Reference Range Interpretation Comments Procalcitonin (test 0.06 ng/mL <0.07 code = 3577858481) EMIR (test code = EMIR) INTERPRETATION OF [...] lung abscess/empyema. For further information please refer to:[email or web address] Lab Interpretation Normal (test code = 73469-2) [facility] HospitalOSMOLALITY [id number] 11:49:00 Test Item Value Reference Range Interpretation Comments OSMOLALITY (test code = See_Comment [Au tomated message] 5812224314) The system [employer] generated this result transmitted ref erence range: 278 - 30 5 mOsm/kg. The re ference range was not u sed to interpret this result as normal/abnor mal. Lab Interpretation (test Normal code = 72581-9) [facility] HospitalN-TERMINAL [id number] 11:19:00 Test Item Value Reference Range Interpretation Comments NT-proBNP (test code 34106 pg/mL See_Comment H [Autom ated = 5185096832) message] The system which generated this result transmitted reference range : <=450. The reference range was not used to interpret this result as normal/abnormal . EMIR (test code = EMIR) Biotin has been reported to cause a negative bias, interpret results relative to patient's use of biotin. Lab Interpretation Abnormal (test code = 37268-5) [facility] HospitalSEDIMENTATION [id number] 11:01:00 Test Item Value Reference Range Interpretation Comments ESR (test code = See_Comment H [Automated message] 2855551107) The system [employer] generated this result transmitted ref erence range: 0 - 10 m m/HR. The reference r martin was not used to interpret this result as normal/abnor mal. Lab Interpretation (test Abnormal code = 38599-5) [facility] HospitalTROPONIN [id number] 10:57:00 Test Item Value Reference Range Interpretation Comments TROPONIN I (test 0.233 ng/mL See_Comment H [Automated code = 3679351134) message] The system which generated this result [...] ? Lab Interpretation Abnormal (test code = 37168-0) [facility] HospitalIRO [id number] 10:53:00 Test Item Value Reference Range Interpretation Comments IRON (test code = 0976566759) 37 ug/dL 50-160 L TIBC (test code = 9427165172) 259 ug/dL 250-410 % FE SAT (test code = 9127592953) 14 % 20-50 L Lab Interpretation (test code = Abnormal 94230-4) [facility]. METABOLIC PANEL (58264)2020-05-30 10:44:00 Test Item Value Reference Range Interpretation Comments NA (test code = 135 mmol/L 135-145 4453050038) K (test code = 4.3 mmol/L 3.5-5 1759344556) CL (test code = 98 mmol/L 98-108 5401707042) CO2 TOTAL (test code = 26 mmol/L 23-31 8473701407) AGAP (test code = 2-16 5665190873) BUN (test code = 29 mg/dL 7-23 H 5196353374) GLUCOSE (test code = 127 mg/dL 70-110 H 9389633459) CREATININE (test code = 1.38 mg/dL 0.6-1.25 H 8357660743) TOTAL BILI (test code = 0.9 mg/dL 0.1-1.6 3935411778) CALCIUM (test code = 9.4 mg/dL 8.6-10.6 7081557915) T PROTEIN (test code = 6.6 g/dL 6.3-8.2 7361049553) ALBUMIN (test code = 3.7 g/dL 3.5-5 4268488060) ALK PHOS (test code = 65 U/L 34-122 7886687725) ALTv (test code = 28 U/L 5-50 1742-6) AST(SGOT) (test code = 42 U/L 13-40 H 8724508397) eGFR Calculation mL/min/1.73m2 (Non-) (test code = 7098184520) eGFR Calculation mL/min/1.73m2 () (test code = 5016462482) EMIR (test code = EMIR) Association of [...] tests). Lab Interpretation Abnormal (test code = 28422-5) [facility] HospitalMAGNESIUM2020-09-11 10:44:00 Test Item Value Reference Range Interpretation Comments MAGNESIUM (test code = 7988945886) 1.4 mg/dL 1.7-2.4 L Lab Interpretation (test code = Abnormal 56003-0) [facility] HospitalURIC [id number] 10:44:00 Test Item Value Reference Range Interpretation Comments URIC ACID (test code = 6127846267) 7.8 mg/dL 3.6-8 Lab Interpretation (test code = Normal 79854-7) [facility] HospitalPROTEIN CREAT RATIO URINE [id number] 10:29:00 Test Item Value Reference Range Interpretation Comments T. PROT U (test code = 104 mg/dL 2888-6) CREAT U (test code = 14.4 mg/dL 9565721598) Protein/Creatinine Ratio 0.0-2.0 H Urine (test code = 0550145486) EMIR (test code = EMIR) Random Urine Total Protein Reference Ranges Random Specimen: ? Less than 10 mg/dLFirst Morning Specimen: ? ?Less than 20 mg/dL ? Lab Interpretation (test Abnormal code = 69071-0) [facility] WITH [id number] 10:28:00 Test Item Value Reference Range Interpretation [...] RDW-SD (test code = 47.6 fL 38.5-51.6 88205-1) RDW-CV (test code = 14.2 % 12.1-15.4 788-0) PLT (test code = See_Comment L [Automated 777-3) message] The sy stem which generated this result transmitted reference range : 150 - 328 10*3/ ?L. The reference r martin was not used to interpret this result as normal/abnormal . MPV (test code = 10.5 fL 9.8-13 68970-1) NRBC/100 WBC (test See_Comment [Automat ed code = 5734536672) message] The system which generated this result transmitted reference range : 0.0 - 10.0 /100 WBCs. The refer ence range was not u sed to interpret th is result as normal/abnormal . NRBC x10^3 (test code <0.01 See_Comment [Auto mated = 8242978002) message] The s ystem which generated this result transmitted reference range : 10*3/?L. The reference range was not used to interpret this result as normal/abnormal . GRAN MAT (NEUT) % 83.1 % (test code = 770-8) IMM GRAN % (test code 0.40 % = 6019576078) LYMPH % (test code = 3.7 % 736-9) MONO % (test code = 11.8 % 5905-5) EOS % (test code = 0.4 % 713-8) BASO % (test code = 0.6 % 706-2) GRAN MAT x10^3(ANC) 4.52 10*3/uL 1.99-6.95 (test code = 3377894661) IMM GRAN x10^3 (test <0.03 0-0.06 code = 3524988450) LYMPH x10^3 (test code 0.20 10*3/uL 1.09-3.23 L = 731-0) MONO x10^3 (test code 0.64 10*3/uL 0.36-1.02 = 742-7) EOS x10^3 (test code = <0.03 0.06-0.53 L 711-2) BASO x10^3 (test code 0.03 10*3/uL 0.01-0.09 = 704-7) Lab Interpretation Abnormal (test code = 28803-2) [facility] HospitalSODIUM, URINE [id number] 10:25:00 Test Item Value Reference Range Interpretation Comments NA URINE (test code = 0078785525) 123 mmol/L [facility] HospitalPROTHROMBIN TIME / [id number] 08:09:00 Test Item Value Reference Range Interpretation Comments PROTIME PATIENT (test See_Comment [Auto mated message] code = 5964-2) The system [employer] generated this result transmitted ref erence range: 12.0 - 1 4.7 Seconds. The re ference range was not u sed to interpret this result as normal/abnor mal. INR (test code = 6301-6) Nor mal INR <1.1; Warfarin Therap eutic range 2.0 to 3. 0 or 2.5 to 3.5, dep ending upon the indica tions. Lab Interpretation (test Normal code = 63381-8) [facility] HospitalGLYCOSYLATED HEMOGLOBIN (A1C)2020-05-30 07:33:00 Test Item Value Reference Range Interpretation Comments HGB A1C (test code = 5.4 % 4-6 4548-4) EMIR (test code = EMIR) %A1C (NGSP) Interpretation (ADA)4.8-5.6 ? ? Normal or (Non-Diabetic Range)5.7-6.4 ? ? Increased Risk (Pre-Diabetic)>6.5 ?Diabetes Indicated Lab Interpretation Normal (test code = 15985-0) [facility] HospitalLIPID PANEL (17931)(TOTAL CHOLESTEROL, TRIGLYCERIDES, HDL)2020-05-30 07:20:00 Test Item Value Reference Range Interpretation Comments CHOL (test code = 174 mg/dL 120-200 6475396041) HDL (test code = 37 mg/dL >40 L 6379132832) HDLC RATIO (test code = See_Comment [Au tomated message] 1214869785) The system [employer] generated this result transmit moshe reference range : <=5.0. The refe rence range was not u sed to interpret th is result as normal/abnormal . TRIG (test code = 85 mg/dL 30-170 1039522157) LDL CHOL (test code = 120 mg/dL See_Comment [Auto mated message] 19749-3) The system [employer] generated this result transmit moshe reference range : <=160. The refe rence range was not u sed to interpret th is result as normal/abnormal . VLDL (test code = 17 mg/dL 5-60 1344106817) Lab Interpretation (test Abnormal code = 12675-0) [facility] HospitalCREATINE [id number] 07:19:00 Test Item Value Reference Range Interpretation Comments CK (test code = 3182829880) 88 U/L 33-194 Lab Interpretation (test code = Normal 42956-6) [facility] HospitalURIC [id number] 07:19:00 Test Item Value Reference Range Interpretation Comments URIC ACID (test code = 0324338551) 7.9 mg/dL 3.6-8 Lab Interpretation (test code = Normal 65191-3) [facility] HospitalFERRITIN [id number] 06:48:00 Test Item Value Reference Range Interpretation Comments FERRITIN (test code = 73.2 ng/mL 18-464 7240615223) EMIR (test code = EMIR) Biotin has been reported to cause a negative bias, interpret results relative to patient's use of biotin. Lab Interpretation (test Normal code = 53883-4) [facility] HospitalTHYROID STIMULATING [id number] 06:46:00 Test Item Value Reference Range Interpretation Comments TSH (test code = See_Comment [Automated message] 7296718109) The system [employer] generated this result transmitted ref erence range: 0.45 - 4 .70 mIU/L. The refe rence range was not u sed to interpret this result as normal/abnor mal. Lab Interpretation (test Normal code = 65416-2) [facility] HospitalMAGNESIUM2020-09-11 06:19:00 Test Item Value Reference Range Interpretation Comments MAGNESIUM (test code = 7356847007) 1.6 mg/dL 1.7-2.4 L Lab Interpretation (test code = Abnormal 56003-5) [facility] HospitalPHOSPHORUS2020-09-11 06:19:00 Test Item Value Reference Range Interpretation Comments PHOSPHORUS (test code = 4297644442) 2.9 mg/dL 2.5-5 Lab Interpretation (test code = Normal 58020-1) [facility] HospitalURINALYSIS2020-09-11 04:26:00 Test Item Value Reference Range Interpretation Comments APPEARANCE (test code = Clear Clear 4161540245) COLOR (test code = Yellow Yellow 6009131302) PH (test code = 4.8-8.0 6048553330) SP GRAVITY (test code = 1.003-1.030 8088882073) GLU U QUAL (test code = Normal Normal 8358484056) BLOOD (test code = 1+ Negative A 0569166154) KETONES (test code = Negative Negative 4855232171) PROTEIN (test code = 500 mg/dL Negative A 2887-8) UROBILIN (test code = Normal Normal 4224271594) BILIRUBIN (test code = Negative Negative 6752757659) NITRITE (test code = Negative Negative 8669750968) LEUK MARLENA (test code = Negative Negative 7799850081) RBC/HPF (test code = See_Comment H [Autom ated message] 2618343364) The system [employer] generated this result transmit moshe reference range : 0 - 3 HPF. The refe rence range was not u sed to interpret th is result as normal/abnormal . WBC/HPF (test code = See_Comment [Autom ated message] 8381155837) The system [employer] generated this result transmit moshe reference range : 0 - 5 HPF. The refe rence range was not u sed to interpret th is result as normal/abnormal . BACTERIA (test code = Few Negative A 2999282641) MUCOUS (test code = Slight Negative LPF A 5721888389) HYAL CAST (test code = See_Comment H [Aut omated message] 0710933010) The system [employer] generated this result transmit moshe reference range : <=2 LPF. The refere nce range was not u sed to interpret th is result as normal/abnormal . GRAN CASTS (test code = See_Comment H [Au tomated message] 1690721006) The system [employer] generated this result transmit moshe reference range : <=1 LPF. The refere nce range was not u sed to interpret th is result as normal/abnormal . Lab Interpretation (test Abnormal code = 86066-7) [facility] HospitalXR CHEST 1 [id number] 03:33:16 Multifocal interstitial and airspace opacities are concerning forbronchopneumonia. These findings can also be seen with atypical infectiousprocess, including COVID-19 pneumonia. Disclaimer: Generally,the findings on chest imaging in COVID-19 are notspecific, and overlap with other infections, including influenza, H1N1,SARS and MERS.According to the Centers for Disease Control (CDC) and recent statement ofthe [employer], viral testing remains the [...] Disease Control (CDC) and recent statement ofthe [employer], viral testing remains the only specificmethod of diagnosis. Confirmation with the viral test is required, even ifradiologic findings are suggestive of COVID-[address]Preliminary Report Dictated by Resident: Ming Ivan MD., have reviewed this study and agree with the abovereport.[facility] HospitalCOVID-19 (ID NOW RAPID TESTING)2020-05-30 01:54:00 Test Item Value Reference Range Interpretation Comments SARS-CoV-2 Rapid ID NOW Not Detected Not Detected (test code = 15650-6) EMIR (test code = EMIR) ID NOW COVID-19 Assay is an isothermal nucleic acid amplification test intended for the qualitative detection of nucleic acid from SARS-CoV-2 viral RNA in nasopharyngeal (TENTERING MACHINE OFF BEARER) specimens. It is used under Emergency Use [...] indicated. Lab Interpretation Normal (test code = 66621-7) [id number]00 Test Item Value Reference Range Interpretation Comments TROPONIN I (test 0.148 ng/mL See_Comment H [Automated code = 3927552885) message] The system which generated this result [...] ? Lab Interpretation Abnormal (test code = 28320-3) [id number] 01:49:00 Test Item Value Reference Range Interpretation Comments NT-proBNP (test code 85190 pg/mL See_Comment H [Autom ated = 0944070490) message] The system which generated this result transmitted reference range : <=450. The reference range was not used to interpret this result as normal/abnormal . EMIR (test code = EMIR) Biotin has been reported to cause a negative bias, interpret results relative to patient's use of biotin. Lab Interpretation Abnormal (test code = 91115-9) [facility] (29080)2020-05-30 01:41:00 Test Item Value Reference Range Interpretation Comments NA (test code = 135 mmol/L 135-145 7511551986) K (test code = 4.0 mmol/L 3.5-5 7786765723) CL (test code = 98 mmol/L 98-108 6102685755) CO2 TOTAL (test code = 27 mmol/L 23-31 7833398049) AGAP (test code = 2-16 0154905168) BUN (test code = 27 mg/dL 7-23 H 4200701335) GLUCOSE (test code = 143 mg/dL 70-110 H 5420457071) CREATININE (test code = 1.51 mg/dL 0.6-1.25 H 8725590543) TOTAL BILI (test code = 0.6 mg/dL 0.1-1.2 9663643079) CALCIUM (test code = 9.5 mg/dL 8.6-10.6 9249260862) T PROTEIN (test code = 6.9 g/dL 6.3-8.2 0873924649) ALBUMIN (test code = 3.9 g/dL 3.5-5 1621677737) ALK PHOS (test code = 78 U/L 34-122 1788680329) ALTv (test code = 29 U/L 5-50 1742-6) AST(SGOT) (test code = 37 U/L 13-40 7463560001) eGFR Calculation mL/min/1.73m2 (Non-) (test code = 4192055531) eGFR Calculation mL/min/1.73m2 () (test code = 7745266285) EMIR (test code = EMIR) Association of [...] tests). Lab Interpretation Abnormal (test code = 51782-5) [facility] HEAD WO [id number] 01:40:13 No acute intracranial hemorrhage or mass [...] ethmoid aircell.IMPRESSIONNo acute intracranial hemorrhage or mass effect.[facility] GLUCOSE (AUTOMATED)2020-05-30 01:23:00 Test Item Value Reference Range Interpretation Comments POCT GLU (test code = 1055467951) 130 mg/dL 70-110 H Lab Interpretation (test code = Abnormal 90196-6) [facility] WITH [id number] 01:22:00 Test Item Value Reference Range Interpretation [...] RDW-SD (test code = 46.8 fL 38.5-51.6 82253-1) RDW-CV (test code = 13.9 % 12.1-15.4 788-0) PLT (test code = See_Comment [Automated 777-3) message] The sy stem which generated this result transmitted reference range : 150 - 328 10*3/ ?L. The reference r martin was not used to interpret this result as normal/abnormal . MPV (test code = 9.9 fL 9.8-13 21859-8) NRBC/100 WBC (test See_Comment [Automat ed code = 5820116346) message] The system which generated this result transmitted reference range : 0.0 - 10.0 /100 WBCs. The refer ence range was not u sed to interpret th is result as normal/abnormal . NRBC x10^3 (test code <0.01 See_Comment [Auto mated = 1907705117) message] The s ystem which generated this result transmitted reference range : 10*3/?L. The reference range was not used to interpret this result as normal/abnormal . GRAN MAT (NEUT) % 82.3 % (test code = 770-8) IMM GRAN % (test code 0.50 % = 5168488381) LYMPH % (test code = 5.5 % 736-9) MONO % (test code = 10.6 % 5905-5) EOS % (test code = 0.6 % 713-8) BASO % (test code = 0.5 % 706-2) GRAN MAT x10^3(ANC) 5.23 10*3/uL 1.99-6.95 (test code = 5016137938) IMM GRAN x10^3 (test 0.03 10*3/uL 0-0.06 code = 8292947680) LYMPH x10^3 (test code 0.35 10*3/uL 1.09-3.23 L = 731-0) MONO x10^3 (test code 0.67 10*3/uL 0.36-1.02 = 742-7) EOS x10^3 (test code = 0.04 10*3/uL 0.06-0.53 L 711-2) BASO x10^3 (test code 0.03 10*3/uL 0.01-0.09 = 704-7) Lab Interpretation Abnormal (test code = 86305-7) [facility] ABG + LACTIC [id number] 01:14:00 Test Item Value Reference Range Interpretation Comments PH (test code = 2) 7.35-7.45 PCO2 (test code = See_Comment [Automat ed 0928988492) message] The sy stem which generated this result transmitted reference range : 35 - 45 mmHg. The reference range was not used to interpret this result as normal/abnormal . PO2 (test code = See_Comment H [Automated 0426941936) message] The sy stem which generated this result transmitted reference range : 80 - 100 mmHg. The reference range was not used to interpret this result as normal/abnormal . HCO3 (test code = See_Comment [Automate d 1100626484) message] The sy stem which generated this result transmitted reference range : 22 - 26 mEq/L. The reference range was not used to interpret this result as normal/abnormal . BE (test code = See_Comment [Automated 2203156525) message] The sy stem which generated this result transmitted reference range : -3.0 - 3.0 mEq/ L. The reference r martin was not used to interpret this result as normal/abnormal . LACTIC ACID (test code 1.10 mmol/L = 2188706494) Lab Interpretation Abnormal (test code = 88396-8) [facility] >30DAYS[facility]2020-05-30 01:04:00 Test Item Value Reference Range Interpretation Comments POCT Glu (age>30days) (test code = 130 mg/dL 70-110 A 3342) Lab Interpretation (test code = Abnormal 27679-8) [facility]
[2022-03-03 19:51] LABS: Urine Blood Negative (Negative); Urine Glucose Negative (Negative); Urine Protein 2+ (Negative)
--- NOTE | 2022-03-03 19:55 | RAD REPORT ---
EXAM DESCRIPTION: RAD - Chest Single View - 03/03/2022 7:36 pm CLINICAL HISTORY: SOB COMPARISON: <Comparisons> FINDINGS: Lines: Pacemaker/ICD. Lungs: Increased vascular engorgement. Pleural: Fluid in the right minor fissure. Cardiac: Cardiomegaly. Bones: No acute fractures. Other: IMPRESSION: Findings most likely representing interstitial edema. Pneumonia difficult to entirely ex clude.
[2022-03-03 20:07] LABS: Urine Bacteria NONE SEEN /HPF (NONE SEEN); Urine Mucus 1+ /HPF (NONE SEEN); Urine RBC <5 /HPF (NONE SEEN)
[2022-03-03] MEDS ORDERED: ALBUTEROL 2.5 MG/3 ML NEB SOL ONE (20:19)
[2022-03-03 20:26] LABS: Absolute Lymphocytes (CBC) 0.5 K/uL (0.7-4.9); Hematocrit 27.3 % (39.6-49.0); Lymphocytes % 6.3 % (15.3-44.8); MCV 88.7 fL (80-100); MPV 7.1 fL (7.6-11.3); Protime INR 1.04; RBC Red Blood Cell Count 3.07 M/uL (4.33-5.43)
[2022-03-03 20:41] LABS: Albumin 2.7 g/dL (3.4-5.0); Bilirubin Direct 0.3 mg/dL (0-0.2); Bilirubin Total 0.7 mg/dL (0.2-1.0); Potassium 3.7 mmol/L (3.5-5.1); Protein, Total 6.2 g/dL (6.4-8.2); Troponin High Sensitivity 52.2 pg/mL (<58.9)
--- NOTE | 2022-03-03 21:27 | ER ---
Nurse's Notes [facility] Name: Jimbo Cat Age: 81 yrs Sex: Male : 1940 Arrival Date: 03/03/2022 Time: 18:44 Bed 2 Private MD: Diagnosis: Unspecified combined systolic (congestive) and diastolic (congestive) heart failure;Dyspnea, unspecified Presentation: 03/03 18:49 Chief complaint: EMS states: toned out for SOB, weakness, headache X 1 day. Coronavirus ld1 screen: At this time, the client does not indicate any symptoms associated with coronavirus-19. Ebola Screen: No symptoms or risks identified at this time. Initial Sepsis Screen: Does the patient meet any 2 criteria? No. Patient's initial sepsis screen is negative. Does the patient have a suspected source of infection? No. Patient's initial sepsis screen is negative. Risk Assessment: Do you want to hurt yourself or someone else? Patient reports no desire to harm self or others. Onset of symptoms was March 03, 2022. 18:49 Method Of Arrival: EMS: [facility] ld1 18:49 Acuity: SYDNIE 3 ld1 Triage Assessment: 18:51 General: Appears in no apparent distress. comfortable, Behavior is calm, cooperative, ld1 appropriate for age. Pain: Denies pain. EENT: No signs and/or symptoms were reported regarding the EENT system. Neuro: Level of Consciousness is awake, alert, obeys commands, Oriented to person, place, time, situation. Cardiovascular: Capillary refill < 3 seconds Patient's skin is warm and dry. Rhythm is sinus rhythm. Respiratory: Reports shortness of breath at rest on exertion Airway is patent Respiratory effort is even, unlabored, Onset: The symptoms/episode began/occurred gradually, the patient has mild shortness of breath. GI: Abdomen is flat, non-distended. : No signs and/or symptoms were reported regarding the genitourinary system. Derm: No signs and/or symptoms reported regarding the dermatologic system. Musculoskeletal: No signs and/or symptoms reported regarding the musculoskeletal system. Historical: - Allergies: 18:51 No Known Allergies; ld1 - PMHx: 18:51 Congestive heart failure; diabetes mellitus; CVA; Myocardial infarction; ld1 - PSHx: 18:51 Pacemaker/Defibrillator; Appendectomy; ld1 - Immunization history:: Adult Immunizations up to date, Client reports receiving the 2nd dose of the Covid vaccine. - Social history:: Smoking status: Patient denies any tobacco usage or history of. Patient/guardian denies using alcohol. Screenin:10 Abuse screen: Denies threats or abuse. Denies injuries from another. Nutritional lg3 screening: No deficits noted. Tuberculosis screening: No symptoms or risk factors identified. Fall Risk Secondary diagnosis (15 points) IV access (20 points). Gait- Weak (10 pts.). Mental Status- Overestimates/Forgets Limitations (15 pts.). Total Johnston Fall Scale indicates High Risk Score (45 or more points). Side Rails Up X 2 Frequent Obs/Assessments Occuring As available patient and family educated on Fall Prevention Program and Strategies. Assessment: 20:07 General: Appears in no apparent distress. comfortable, Behavior is calm, cooperative. lg3 Pain: Complains of pain in chest Quality of pain is described as dull. Neuro: James Agitation-Sedation Scale (RASS): +1 Restless Level of Consciousness is awake, alert, obeys commands, Oriented to person, place, situation. Cardiovascular: Reports chest pain, fatigue, shortness of breath, Capillary refill < 3 seconds Clubbing of nail beds is absent JVD is absent Patient's skin is warm and dry. Respiratory: Airway is patent Trachea midline Respiratory effort is even, unlabored, Respiratory pattern is regular, symmetrical, Breath sounds are clear bilaterally. GI: No deficits noted. No signs and/or symptoms were reported involving the gastrointestinal system. Abdomen is flat, non-distended. : No deficits noted. No signs and/or symptoms were reported regarding the genitourinary system. EENT: No deficits noted. No signs and/or symptoms were reported regarding the EENT system. Derm: No deficits noted. No signs and/or symptoms reported regarding the dermatologic system. Skin is intact, is fragile, is thin, Skin is dry, Skin temperature is warm Bruising that is on generalized. Musculoskeletal: No deficits noted. No signs and/or symptoms reported regarding the musculoskeletal system. Circulation, motion, and sensation intact. Range of motion: intact in all extremities. 21:38 General: attempted to call per patient request. no answer. . lg3 23:52 Reassessment: Patient appears in no apparent distress at this time. No changes from lg3 previously documented assessment. Patient and/or family updated on plan of care and expected duration. Pain level reassessed. Patient is alert, oriented x 3, equal unlabored respirations, skin warm/dry/pink. Patient states feeling better. Patient states symptoms have improved. Vital Signs: 18:49 BP 99 / 67; Pulse 80; Resp 18; Temp 98.3(O); Pulse Ox 100% on R/A; Weight 85.73 kg; ld1 Height 5 ft. 10 in. (177.80 cm); Pain 0/10; 20:11 BP 101 / 68; Pulse 109; Resp 19; Pulse Ox 97% on R/A; lg3 23:51 BP 131 / 69; Pulse 81; Resp 19; Pulse Ox 100% on R/A; lg3 18:49 Body Mass Index 27.12 (85.73 kg, 177.80 cm) ld1 ED Course: 18:44 Patient arrived in ED. bd 18:51 Triage completed. ld1 18:51 Arm band placed on right wrist. ld1 19:05 Terry Fernández PA is PHCP. cp 19:05 Boogie Shah MD is Attending Physician. cp 19:18 Britta Franklin, SABINE is Primary Nurse. lg3 19:38 XRAY Chest (1 view) In Process Unspecified. EDMS 20:02 Urine Microscopic Only Sent. lg3 20:10 Patient has correct armband on for positive identification. Bed in low position. Call lg3 light in reach. Side rails up X2. Client placed on continuous cardiac and pulse oximetry monitoring. NIBP monitoring applied. residential monitor on. Door closed. Noise minimized. Warm blanket given. 20:10 Maintain EMS IV. Dressing intact. Site clean \T\ dry. Gauge \T\ site: 18 left forearm . lg 3 20:14 Lipase Sent. lg3 20:14 Basic Metabolic Panel Sent. lg3 20:14 CBC with Diff Sent. lg3 20:14 LFT's Sent. lg3 20:14 Magnesium Sent. lg3 20:15 NT PRO-BNP Sent. lg3 20:15 PT-INR Sent. lg3 20:15 Troponin HS Sent. lg3 21:26 Michele Kaur is Hospitalizing Provider. cp 23:52 No provider procedures requiring assistance completed. Patient admitted, IV remains in lg3 place. intact, No redness/swelling at site. Administered Medications: 20:19 Drug: Albuterol 2.5 mg Route: Inhalation; lg3 21:37 Drug: Lasix (furosemide) 20 mg Route: IVP; Site: left forearm; lg3 21:37 Follow up: Response: No adverse reaction lg3 Medication: 23:52 VIS not applicable for this client. lg3 Outcome: 21:27 Decision to Hospitalize by Provider. cp 23:52 Admitted to Tele accompanied by tech, via stretcher, room 408, Report called to [facility] 23:52 Condition: stable 23:52 Instructed on the need for admit. 03/04 00:26 Patient left the ED. vc1 Signatures: Dispatcher [employer] EDMS Bettina Pratt Corey, PA PA cp Gibson, Lacie, RN RN lg3 Paola Trujillo RN RN ld1 Shani Mendez RN RN vc1
--- NOTE | 2022-03-03 21:27 | EDPHYS ---
Physician Documentation [facility] Name: Jimbo Cat Age: 81 yrs Sex: Male : 1940 Arrival Date: 03/03/2022 Time: 18:44 Bed 2 Private MD: ED Physician Boogie Shah HPI: 03/03 19:20 This 81 yrs old Male presents to ER via EMS with complaints of Shortness Of Breath. cp 19:20 The patient has shortness of breath at rest. cp 19:20 Onset: The symptoms/episode began/occurred yesterday. Duration: The symptoms are cp continuous, and are steadily getting worse. 19:20 The patient's shortness of breath is aggravated by light activity. Associated signs and cp symptoms: Pertinent positives: chest pain, headache, general weakness, Pertinent negatives: productive cough, fever, vomiting. The patient has experienced similar episodes in the past, chronically. Historical: - Allergies: 18:51 No Known Allergies; ld1 - PMHx: 18:51 Congestive heart failure; diabetes mellitus; CVA; Myocardial infarction; ld1 - PSHx: 18:51 Pacemaker/Defibrillator; Appendectomy; ld1 - Immunization history:: Adult Immunizations up to date, Client reports receiving the 2nd dose of the Covid vaccine. - Social history:: Smoking status: Patient denies any tobacco usage or history of. Patient/guardian denies using alcohol. ROS: 19:20 Constitutional: Negative for body aches, chills, fever, poor PO intake. cp 19:20 Eyes: Negative for injury, pain, redness, and discharge. cp 19:20 ENT: Negative for drainage from ear(s), ear pain, sore throat, difficulty swallowing, difficulty handling secretions. 19:20 Cardiovascular: Positive for chest pain, Negative for edema, palpitations. 19:20 Respiratory: Positive for shortness of breath, at rest. Negative for cough, wheezing. 19:20 Abdomen/GI: Negative for abdominal pain, nausea, vomiting, and diarrhea. 19:20 Back: Negative for pain at rest, pain with movement. 19:20 Neuro: Positive for headache, weakness, Negative for altered mental status, dizziness, syncope. 19:20 All other systems are negative. Exam: 19:25 Constitutional: The patient appears in no acute distress, alert, awake, cp non-diaphoretic, non-toxic, well developed, well nourished. 19:25 Head/Face: Normocephalic, atraumatic. cp 19:25 Eyes: Periorbital structures: appear normal, Conjunctiva: normal, no exudate, no injection, Sclera: no appreciated abnormality, Lids and lashes: appear normal, bilaterally. 19:25 ENT: External ear(s): are unremarkable, Nose: is normal, Mouth: Lips: dry, Oral mucosa: moist, Posterior pharynx: Airway: no evidence of obstruction, patent, swelling, is not appreciated, erythema, is not appreciated, exudate, is not appreciated. 19:25 Neck: ROM/movement: is normal, is supple, without pain, no range of motions limitations, no meningismus, no nuchal rigidity. 19:25 Chest/axilla: Inspection: normal, Palpation: is normal, no crepitus, no tenderness. 19:25 Cardiovascular: Rate: normal, Rhythm: regular, Edema: is not appreciated, JVD: is not appreciated. 19:25 Respiratory: the patient does not display signs of respiratory distress, Respirations: shallow respirations, that is mild, Breath sounds: decreased breath sounds, that are mild, diffuse, stridor, is not appreciated, wheezing: is not appreciated. 19:25 Abdomen/GI: Inspection: abdomen appears normal, Bowel sounds: active, all quadrants, Palpation: abdomen is soft and non-tender, in all quadrants. 19:25 Back: pain, is absent, ROM is normal. 19:25 Skin: no rash present. 19:25 Neuro: Orientation: to person, place \\T\\ time. Mentation: is normal, Motor: moves all fours, strength is normal, Sensation: is normal, Gait: is steady, at a normal pace, without difficulty. 20:07 ECG was reviewed by the Attending Physician. cp Vital Signs: 18:49 BP 99 / 67; Pulse 80; Resp 18; Temp 98.3(O); Pulse Ox 100% on R/A; Weight 85.73 kg; ld1 Height 5 ft. 10 in. (177.80 cm); Pain 0/10; 20:11 BP 101 / 68; Pulse 109; Resp 19; Pulse Ox 97% on R/A; lg3 23:51 BP 131 / 69; Pulse 81; Resp 19; Pulse Ox 100% on R/A; lg3 18:49 Body Mass Index 27.12 (85.73 kg, 177.80 cm) ld1 MDM: 19:12 Patient medically screened. cp 21:25 Data reviewed: vital signs, nurses notes, lab test result(s), EKG, radiologic studies, cp plain films. 21:25 Test interpretation: by ED physician or midlevel provider: ECG, plain radiologic cp studies. Counseling: I had a detailed discussion with the patient and/or guardian regarding: the historical points, exam findings, and any diagnostic results supporting the discharge/admit diagnosis, lab results. Physician consultation: Johanna CHIU was contacted at 21:25, regarding admission, to the telemetry unit. patient's condition. 03/03 19:18 Order name: Basic Metabolic Panel; Complete Time: 21:07 03/03 21:08 Interpretation: Normal except: NA 129; CL 94; GLUC 257; BUN 45; CRE 3.05; GFR 20. 03/03 19:18 Order name: CBC with Diff; Complete Time: 21:07 03/03 21:08 Interpretation: Normal except: RBC 3.07; HGB 9.7; HCT 27.3; PLT 147; RDW 15.3; MPV 7.1; cp BHAVNA% 83.8; LYM% 6.3; LYMA 0.5. 03/03 19:18 Order name: LFT's; Complete Time: 21:07 cp 03/03 21:13 Interpretation: Normal except: BILID 0.3; TP 6.2; ALB 2.7; A/G 0.8. 03/03 19:18 Order name: Magnesium; Complete Time: 21:07 cp 03/03 19:18 Order name: NT PRO-BNP; Complete Time: 21:07 03/03 21:09 Interpretation: Abnormal: NT PRO-BNP 5480. 03/03 19:18 Order name: PT-INR; Complete Time: 21:07 cp 03/03 19:18 Order name: Troponin HS; Complete Time: 21:07 cp 03/03 19:18 Order name: XRAY Chest (1 view); Complete Time: 20:14 cp 03/03 20:14 Interpretation: Report review. 03/03 19:18 Order name: Lipase; Complete Time: 21:07 cp 03/03 21:08 Interpretation: Abnormal: LIP 470. cp 03/03 19:18 Order name: Urine Microscopic Only; Complete Time: 20:14 cp 03/03 19:52 Order name: Urine Dipstick-Ancillary; Complete Time: 20:14 EDMS 03/03 21:23 Order name: COVID-19 SARS RT PCR (Document "Date of Onset" if Symptomatic) mw2 03/03 19:18 Order name: EKG; Complete Time: 19:18 cp 03/03 19:18 Order name: Cardiac monitoring; Complete Time: 20:07 cp 03/03 19:18 Order name: EKG - Nurse/Tech; Complete Time: 20:03 cp 03/03 19:18 Order name: IV Saline Lock; Complete Time: 20:03 cp 03/03 19:18 Order name: Labs collected and sent; Complete Time: 20:14 cp 03/03 19:18 Order name: O2 Per Protocol; Complete Time: 20:03 cp 03/03 19:18 Order name: O2 Sat Monitoring; Complete Time: 20:03 cp 03/03 19:18 Order name: Urine Dipstick-Ancillary (obtain specimen); Complete Time: 20:03 cp EC:07 Rate is 80 beats/min. Rhythm is regular, Paced. VA interval is prolonged. QRS interval cp is prolonged at 178 msec. QT interval is prolonged at 512 msec. T waves are Inverted in leads I, aVL, aVR, V2. Interpreted by me. Reviewed by me. Administered Medications: 20:19 Drug: Albuterol 2.5 mg Route: Inhalation; lg3 21:37 Drug: Lasix (furosemide) 20 mg Route: IVP; Site: left forearm; lg3 21:37 Follow up: Response: No adverse reaction lg3 Disposition Summary: 03/03/22 21:27 Hospitalization Ordered Hospitalization Status: Inpatient Admission cp Provider: Michele Kaur cp Location: Telemetry/MedSurg (Inpatient) cp Condition: Stable cp Problem: an acute exacerbation cp Symptoms: are unchanged cp Bed/Room Type: Standard cp Room Assignment: 408(03/03/22 22:39) cg Diagnosis - Unspecified combined systolic (congestive) and diastolic (congestive) heart failure cp - Dyspnea, unspecified cp Forms: - Medication Reconciliation Form cp - SBAR form cp Addendum: 03/11/2022 06:55 Co-signature as Attending Physician, Boogie Shah MD I agree with the assessment and k dr plan of care. Signatures: Dispatcher [employer] Boogie Menchaca MD MD [facility] Terry Fernández PA PA cp Lisa Hutchinson, RN RN cg Britta Franklin RN RN lg3 Paola Trujillo RN RN ld1 Corrections: (The following items were deleted from the chart) 03/03 22:39 21:27 cp
[2022-03-03] MEDS ORDERED: FUROSEMIDE 20 MG/ 2ML VIAL ONE (21:38)
--- NOTE | 2022-03-03 22:13 | P.HP ---
Certification for Inpatient Patient admitted to: Inpatient With expected LOS: <2 Midnights Patient will require the following post-hospital care: None Practitioner: I am a practitioner with admitting privileges, knowledge of patient current condition, hospital course, and medical plan of care. Services: Services provided to patient in accordance with Admission requirements found in Title 42 Section 412.3 of the Code of Federal Regulations Patient History Date of Service: 03/03/22 Reason for admission: CHF, HIRO, SHOB History of Present Illness: Patient is an 89-year-old male with PMH of chronic systolic CHF, CKD4, IDDM, hypertension, COPD, and CAD with pacemaker who presented to the ED via EMS with complaints of SHOB and weakness x 1 day. Labs significant for Cr 3.05, BUN 45, hgb 9.7, platelet 147, sodium 129, glucose 257, BNP 548, troponin WNL, 2+ protein in urine. CXR showed interstitial edema. Patient reports compliance with medications. He was given a breathing treatment and 20 mg IV lasix. He is saturating appropriately on RA. No peripheral edema noted. ED provider wishes to admit patient for further evaluation and treatment. Allergies No Known Allergies Allergy (Verified 03/23/21 04:35) Home Medications: Hydralazine [Apresoline*] 1 tab PO BID 01/28/22 Isosorbide Mononitrate [Isosorbide Mononitrate ER] 1 tab PO DAILY 01/28/22 Potassium Chloride 1 tab PO DAILY 01/28/22 Blood Sugar Diagnostic [Accu-Chek Guide Test Strip] 1 each MC BID 30 Days #60 strip 01/29/22 Blood-Glucose Meter [Contour] 1 each MC DAILY 90 Days #1 each 01/29/22 Lancets [Advanced Travel Lancets] 1 each MC BID 30 Days #60 each 01/29/22 Metformin HCl [Glucophage*] 500 mg PO BIDWM 30 Days #60 tab 01/29/22 Furosemide [Lasix] 60 mg PO BID #180 tablet 02/20/22 levoFLOXacin [Levaquin] 750 mg PO DAILY #5 tab 02/20/22 - Past Medical/Surgical History Diabetic: Yes -: Pacemaker/defibrillator 2010 -: Hypertension -: CAD -: Hyperlipidemia -: History of CVA -: Depression -: Bilateral cataracts -: Chronic systolic CHF -: COPD -: Parkinsons -: CKD [address] 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 - Family History Father -: Heart disease Mother -: Heart disease, Hypertension, Diabetes, Cancer - Social History Alcohol use: Yes CD- Drugs: No Caffeine use: Yes Review of Systems General: Weakness Respiratory: Shortness of Breath Physical Examination - Physical Exam General: Alert, In no apparent distress, Oriented x3 HEENT: Atraumatic, PERRLA, EOMI, Sclerae nonicteric Neck: Supple, 2+ carotid pulse no bruit, No LAD, Without JVD or thyroid abnormality Respiratory: Clear to auscultation bilaterally, Normal air movement Cardiovascular: No edema, Regular rate/rhythm, Normal S1 S2 Gastrointestinal: Normal bowel sounds, No tenderness Musculoskeletal: No tenderness Integumentary: No rashes Neurological: Normal speech, Normal strength at 5/5 x4 extr, Normal tone, Normal affect - Studies Laboratory Data (last 24 hrs) 03/03/22 20:13: PT 11.5, INR 1.04 03/03/22 20:13: WBC 8.6 D, Hgb 9.7 L, Hct 27.3 L, Plt Count 147 L D 03/03/22 20:13: Sodium 129 L, Potassium 3.7, BUN 45 H D, Creatinine 3.05 H D, Glucose 257 H, Magnesium 2.0 D, Total Bilirubin 0.7, AST 29, ALT 30, Alkaline Phosphatase 81, Lipase 470 H Assessment and Plan - Problems (Diagnosis) (1) Acute kidney injury superimposed on CKD Current Visit: Yes Status: Acute (2) Acute on chronic systolic heart failure Current Visit: Yes Status: Acute (3) Dyspnea Current Visit: Yes Status: Acute Qualifiers: Dyspnea type: unspecified Qualified Code(s): R06.00 - Dyspnea, unspecified (4) Afib Current Visit: Yes Status: Chronic Qualifiers: Atrial fibrillation type: unspecified Qualified Code(s): I48.91 - Unspecified atrial fibrillation (5) COPD (chronic obstructive pulmonary disease) Current Visit: Yes Status: Chronic Qualifiers: COPD type: unspecified COPD Qualified Code(s): J44.9 - Chronic obstructive pulmonary disease, unspecified (6) Diabetes mellitus, type II Current Visit: Yes Status: Chronic Qualifiers: Diabetes mellitus watermaster insulin use: without chcf use Diabetes mellitus complication status: with kidney complications Diabetes mellitus complication detail: with chronic kidney disease Chronic kidney disease stage: stage 4 (severe) Qualified Code(s): E11.22 - Type 2 diabetes mellitus with diabetic chronic kidney disease; N18.4 - Chronic kidney disease, stage 4 (severe) (7) HTN (hypertension) Current Visit: Yes Status: Chronic Qualifiers: Hypertension type: primary hypertension Qualified Code(s): I10 - Essential (primary) hypertension (8) Hyperlipidemia Current Visit: Yes Status: Chronic Qualifiers: Hyperlipidemia type: mixed hyperlipidemia Qualified Code(s): E78.2 - Mixed hyperlipidemia (9) Hyponatremia Current Visit: Yes Status: Chronic - Plan -Cardiology consult -BNP appears around baseline. CXR unchanged from previous. -Received 20 mg IV lasix in the ED. Will hold off on additional and await cardiac recommendation. -Cr is elevated at 3 with proteinuria. Monitor renal function. Hold nephrotoxic drugs. -1500 cc/day fluid restriction. Daily weights -ACHS accu checks with moderate sliding scale insulin and diabetic diet -Monitor and replete electrolytes per protocol. Patient has chronic hyponatremia -Reconcile and continue home medications -Heparin for VTE ppx -Full code Discharge Plan: Home Plan to discharge in: 48 Hours - Advance Directives Does patient have a Living Will: No Does patient have a Durable POA for Healthcare: No - Code Status/Comfort Care Code Status Assessed: Yes (Full) Critical Care: No Time Spent Managing Pts Care (In Minutes): 70
[2022-03-04 01:00] VITALS: BMI 20.9
[2022-03-04] MEDS ORDERED: ALBUTEROL 2.5 MG/3 ML NEB SOL NEB PRN (01:20)
[2022-03-04] MEDS ORDERED: DOCUSATE NA 100 MG CAP PO PRN (01:20)
[2022-03-04] MEDS ORDERED: ONDANSETRON 4 MG/2 ML VIAL IV PRN (01:20)
[2022-03-04] MEDS: HEPARIN 5000 UNIT/ML 1 ML VIAL SQ SCH ×3 (01:37→16:21)
[2022-03-04 03:34] LABS: Absolute Lymphocytes (CBC) 0.6 K/uL (0.7-4.9); Hematocrit 28.9 % (39.6-49.0); Lymphocytes % 7.4 % (15.3-44.8); MCV 89.5 fL (80-100); MPV 7.3 fL (7.6-11.3); RBC Red Blood Cell Count 3.23 M/uL (4.33-5.43)
[2022-03-04 03:47] LABS: Magnesium 1.8 mg/dL (1.8-2.4); Phosphorus 3.1 mg/dL (2.5-4.9); Potassium 3.7 mmol/L (3.5-5.1)
[2022-03-04] MEDS: ACETAMINOPHEN 500 MG TAB PO PRN ×2 (04:49→23:09)
[2022-03-04] MEDS ORDERED: MAGNESIUM SULFATE 1 gm IVPB 1 GM/100 ML BAG IV ONE (05:04)
[2022-03-04] MEDS ORDERED: POTASSIUM CL SA 10 MEQ TAB PO ONE (05:09)
[2022-03-04] MEDS: INSULIN -REGULAR HUMAN 50 UNIT/0.5 ML ML SQ SCH ×4 (08:41→20:06)
[2022-03-04] MEDS: FUROSEMIDE 40 MG/4 ML VIAL IV SCH ×2 (08:42→16:20)
--- NOTE | 2022-03-04 12:15 | P.CNS ---
Date of Consult: 03/04/22 Reason for Consult: Renal insufficiency, CKD, established clinic pt Chief Complaint: CHF, HIRO, SHOB History of Present Illness: Patient is an 89-year-old male with PMH of chronic systolic CHF (unspecified LVEF), CKD Stage IV followed by Dr. Powell, IDDM, hypertension although with relatively lower BP POA, COPD, and CAD with prior coronary stenting and with pacemaker who presented to the ED via EMS with complaints of dyspnea and right sided chest pain that began yesterday at rest. He report chest pain was non radiating but associated with dyspnea and initial episode last at least 10 min and has been recurrent since. He does have discomfort in that area on deep inspiration, mild cough. He otherwise has chronic GUERRERO, possibly worse over the past month Allergies No Known Allergies Allergy (Verified 03/23/21 04:35) Home Medications: Hydralazine [Apresoline*] 1 tab PO BID 01/28/22 Isosorbide Mononitrate [Isosorbide Mononitrate ER] 1 tab PO DAILY 01/28/22 Potassium Chloride 1 tab PO DAILY 01/28/22 Blood Sugar Diagnostic [Accu-Chek Guide Test Strip] 1 each MC BID 30 Days #60 strip 01/29/22 Blood-Glucose Meter [Contour] 1 each MC DAILY 90 Days #1 each 01/29/22 Lancets [Advanced Travel Lancets] 1 each MC BID 30 Days #60 each 01/29/22 Metformin HCl [Glucophage*] 500 mg PO BIDWM 30 Days #60 tab 01/29/22 Furosemide [Lasix] 60 mg PO BID #180 tablet 02/20/22 levoFLOXacin [Levaquin] 750 mg PO DAILY #5 tab 02/20/22 - Past Medical/Surgical History Diabetic: Yes -: Pacemaker/defibrillator 2010 -: Hypertension -: CAD -: Hyperlipidemia -: History of CVA -: Depression -: Bilateral cataracts -: Chronic systolic CHF -: COPD -: Parkinsons -: CKD [address] 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 - Family History Father History Unknown: Yes Medical History: Heart disease Mother History Unknown: Yes Medical History: Heart disease, Hypertension, Diabetes, Cancer - Social History Smoking Status: Unknown if ever smoked Alcohol use: No CD- Drugs: No Caffeine use: Yes Place of Residence: Home Review of Systems General: Weakness Eyes: Unremarkable Respiratory: Shortness of Breath, SOB with Excertion, Pleuritic Pain Cardiovascular: Chest Pain Gastrointestinal: Unremarkable Genitourinary: Unremarkable Musculoskeletal: Unremarkable Integumentary: Unremarkable Neurological: Unremarkable Lymphatics: Unremarkable Physical Examination Temp Pulse Resp BP Pulse Ox 97.4 F 83 18 96/66 97 03/04/22 08:00 03/04/22 08:00 03/04/22 08:00 03/04/22 08:00 03/04/22 08:00 General: Alert, Oriented x3 HEENT: Atraumatic, Sclerae nonicteric Neck: Supple Respiratory: Normal air movement Cardiovascular: No edema, Regular rate/rhythm, Other (PPM present, tender on palpation of Rt chest wall and ribs) Gastrointestinal: Soft and benign, No ascites, No tenderness Musculoskeletal: No clubbing, No swelling Integumentary: No rashes Neurological: Normal speech, Normal affect Laboratory Data (last 24 hrs) 03/03/22 20:13: PT 11.5, INR 1.04 03/03/22 20:13: WBC 8.6 D, Hgb 9.7 L, Hct 27.3 L, Plt Count 147 L D 03/03/22 20:13: Sodium 129 L, Potassium 3.7, BUN 45 H D, Creatinine 3.05 H D, Glucose 257 H, Magnesium 2.0 D, Total Bilirubin 0.7, AST 29, ALT 30, Alkaline Phosphatase 81, Lipase 470 H Conclusions/Impression: 1. Abnormal results of kidney function studies. 2. Underlying CKD, Stage IV 3. Possible Acute on chronic systolic CHF. 4. Chest pain unspecified, atypical 5. Acute pulmonary edema 6. Anemia 2nd to CKD +/- other 1. Monitor renal function closely with escalation of diuretics and on IV lasix here. Will look up baseline and historic Cr level trend at his OP clinic records. 2. Relatively lower BP and low GFR state appear to preclude the use of agents such as Entresto which pt otherwise benefit from with his systolic HF. 3. Again with relatively lower BP present and during admission, does not require vasodilators such as Hydralazine as afterload reduction not needed currently. 4. Monitor lytes, K level on Lasix. 5. Dose meds for reduced CrCl and avoid nephrotoxins including iodinated contrast as pt has higher risk for JOSH with multiple risk factors. Thank you for this referral Zacarias Melo MD, YASMIN
--- NOTE | 2022-03-04 14:28 | P.PN ---
Subjective Date of Service: 03/04/22 Chief Complaint: CHF, HIRO, SHOB Patient complaining of chest pain. He states his shortness of breath is better. Serum creatinine is trending down. Physical Examination - Vital Signs Temperature: 97.8 F Blood Pressure: 110/74 Pulse: 83 Respirations: 18 Pulse Ox (%): 99 - Physical Exam General: Alert, In no apparent distress, Oriented x3 HEENT: Atraumatic, Mucous membr. moist/pink, Sclerae nonicteric Neck: Supple, JVD not distended Respiratory: Clear to auscultation bilaterally, Normal air movement Cardiovascular: No edema, Regular rate/rhythm, Normal S1 S2 Gastrointestinal: Normal bowel sounds, Soft and benign, Non-distended, No tenderness Musculoskeletal: No swelling, No tenderness Integumentary: No rashes, No cyanosis Neurological: Normal strength at 5/5 x4 extr, Other (Kimu-horotoj-wjem hand) - Studies Laboratory Data (last 24 hrs) 03/03/22 20:13: PT 11.5, INR 1.04 03/03/22 20:13: WBC 8.6 D, Hgb 9.7 L, Hct 27.3 L, Plt Count 147 L D 03/03/22 20:13: Sodium 129 L, Potassium 3.7, BUN 45 H D, Creatinine 3.05 H D, Glucose 257 H, Magnesium 2.0 D, Total Bilirubin 0.7, AST 29, ALT 30, Alkaline Phosphatase 81, Lipase 470 H Assessment And Plan - Current Problems (Diagnosis) (1) Acute worsening of stage 3 chronic kidney disease Current Visit: Yes Status: Acute (2) Acute kidney injury superimposed on CKD Current Visit: Yes Status: Acute (3) Presence of combination internal cardiac defibrillator (ICD) and pacemaker Current Visit: No Status: Chronic - Plan Patient with chronic systolic heart failure. Most recent EF is 53 which is an improvement from echocardiogram done in 2018. Continue IV Lasix. Renal function is trending down with diuresis. Nephrology consulted for input. Cardiology also consulted Noted patient has right-sided chest pain reproducible by palpation. Chest pain is likely noncardiac. Continue other home medications. Monitor renal function for improvement.
--- NOTE | 2022-03-04 15:29 | EKG ---
Test Date: 2022-03-03 Test Time: 20:00:37 Scraper Hand: TERRANCE MEASUREMENT RESULTS: Intervals: Rate: 80 SC: 224 QRSD: 178 QT: 512 QTc: 590 [place]: P: -80 SC: 224 QRS: -84 T: 110 INTERPRETIVE STATEMENTS: AV dual-paced rhythm with prolonged AV conduction Abnormal ECG Compared to ECG 02/19/2022 21:20:01 No significant changes Electronically Signed On 03-04-22 15:27:30 CDT by Hector Bar
[2022-03-04] MEDS: HYDRALAZINE HCL 25 MG TABLET PO SCH (20:04)
[2022-03-04] MEDS ORDERED: ZOLPIDEM TARTRATE 5 MG TABLET PO PRN (23:23)
[2022-03-05] MEDS: HEPARIN 5000 UNIT/ML 1 ML VIAL SQ SCH ×2 (01:45→08:39)
[2022-03-05 04:33] LABS: Absolute Lymphocytes (CBC) 0.5 K/uL (0.7-4.9); Hematocrit 27.7 % (39.6-49.0); Lymphocytes % 8.6 % (15.3-44.8); MCV 89.6 fL (80-100); MPV 7.5 fL (7.6-11.3); RBC Red Blood Cell Count 3.09 M/uL (4.33-5.43)
[2022-03-05 04:45] LABS: Magnesium 1.9 mg/dL (1.8-2.4); Potassium 3.4 mmol/L (3.5-5.1)
[2022-03-05 05:05] VITALS: O2SAT 99
[2022-03-05] MEDS ORDERED: POTASSIUM CL SA 10 MEQ TAB PO ONE (05:32)
[2022-03-05] MEDS: INSULIN -REGULAR HUMAN 50 UNIT/0.5 ML ML SQ SCH ×2 (08:38→12:30)
[2022-03-05] MEDS: FUROSEMIDE 40 MG/4 ML VIAL IV SCH (08:39)
[2022-03-05] MEDS: HYDRALAZINE HCL 25 MG TABLET PO SCH (08:39)
[2022-03-05] MEDS ORDERED: INSULIN GLARGINE 100 UNIT/ML SQ SCH (09:00)
[2022-03-05] MEDS ORDERED: ASPIRIN 81 MG CHEWABLE TABLET PO SCH (09:00)
[2022-03-05 12:27] VITALS: BP 118/69; TEMP 98
--- NOTE | 2022-03-05 12:45 | P.PN ---
Subjective Date of Service: 03/05/22 Chief Complaint: CHF, HIRO, SHOB Reports still with soreness on the Rt lateral/upper chest and pain upon inspiration, reveals he had surgery about one week with valve repair through a costochondral approach Physical Examination - Vital Signs Temperature: 98 F Blood Pressure: 118/69 Pulse: 83 Respirations: 18 Pulse Ox (%): 99 - Physical Exam General: Alert HEENT: Atraumatic Neck: Supple Respiratory: Normal air movement Cardiovascular: No edema, Normal S1 S2, Systolic murmur Gastrointestinal: Soft and benign, Non-distended Musculoskeletal: No swelling Neurological: Normal speech, Normal affect (Surgical scar along the right upper- lateral chest wall, underneath pectoralis. Tender to palpation along surgical incision) Assessment And Plan - Plan 1. Abnormal results of kidney function studies. 2. Underlying CKD, Stage IV 3. Possible Acute on chronic systolic CHF. 4. Chest pain, atypical 5. Acute pulmonary edema 6. Anemia 2nd to CKD +/- other 1. Monitor renal function closely with escalation of diuretics and on IV lasix here. Will look up baseline and historic Cr level trend at his OP clinic records. 2. Relatively lower BP and low GFR state appear to preclude the use of agents such as Entresto which pt otherwise benefit from with his systolic HF. 3. Again with relatively lower BP present and during admission, does not require vasodilators such as Hydralazine as afterload reduction not needed currently. 4. Monitor lytes, K level on Lasix. 5. Dose meds for reduced CrCl and avoid nephrotoxins including iodinated contrast as pt has higher risk for JOSH with multiple risk factors. 6. Pt's right chest wall pain appears related to recent surgical incision and is non cardiac. No NSAIDs due to his renal impairment, defer management of pain, symptoms otherwise to the primary team. Thank you for this referral Zacarias Melo MD, YASMIN
[2022-03-05] MEDS ORDERED: ALBUTEROL 2.5 MG/3 ML NEB SOL NEB PRN (14:00)
--- NOTE | 2022-03-05 15:49 | P.DS ---
Admission Date: 03/03/22 Discharge Date: 03/05/22 Disposition: DC HOME/HOME HEALTH CARE Discharge Condition: FAIR Reason for Admission: CHF, HIRO, SHOB - Problems (1) Acute worsening of stage 3 chronic kidney disease Status: Acute (2) Acute kidney injury superimposed on CKD Status: Acute (3) Presence of combination internal cardiac defibrillator (ICD) and pacemaker Status: Chronic Brief History of Present Illness: Patient is an 89-year-old male with PMH of chronic systolic CHF, CKD4, IDDM, hyp ertension, COPD, and CAD with pacemaker who presented to the ED via EMS with complaints of SHOB and weakness x 1 day. Labs significant for Cr 3.05, BUN 45, hgb 9.7, platelet 147, sodium 129, glucose 257, BNP 548, troponin WNL, 2+ protein in urine. CXR showed interstitial edema. Patient reported compliance with medications. He was given a breathing treatment and 20 mg IV lasix. He was saturating appropriately on RA. No peripheral edema noted. Patient is admitted for further management. Hospital Course: Patient with chronic systolic heart failure. Most recent EF is 53 which is an improvement from echocardiogram done in 2018. Patient admitted for acute on chronic systolic heart failure and treated with IV Lasix. His shortness of breath resolved with treatment. Patient was complaining of chest pain but chest pain was musculoskeletal and reproducible by palpation. Renal function was stable with diuresis. Seen by nephrology who assisted with management Patient requested to go home today to attempt to some family matters. He is clinically stable and discharged per his request. Vital Signs/Physical Exam: Temp Pulse Resp BP Pulse Ox 98 F 83 18 118/69 99 03/05/22 12:47 03/05/22 12:47 03/05/22 12:47 03/05/22 12:47 03/05/22 12:47 General: Alert, In no apparent distress, Oriented x3 HEENT: Mucous membr. moist/pink Neck: JVD not distended Respiratory: Clear to auscultation bilaterally, Normal air movement Cardiovascular: No edema, Regular rate/rhythm, Normal S1 S2 Gastrointestinal: Soft and benign, Non-distended, No tenderness Musculoskeletal: No swelling Integumentary: No rashes, No cyanosis Neurological: Normal strength at 5/5 x4 extr Laboratory Data at Discharge: WBC 6.0 K/uL (4.3-10.9) D 03/05/22 04:02 Hgb 9.8 g/dL (13.6-17.9) L 03/05/22 04:02 Hct 27.7 % (39.6-49.0) L 03/05/22 04:02 Plt Count 97 K/uL (152-406) L D 03/05/22 04:02 PT 11.5 SECONDS (9.5-12.5) 03/03/22 20:13 INR 1.04 03/03/22 20:13 Sodium 131 mmol/L (136-145) L 03/05/22 04:02 Potassium 4.0 mmol/L (3.5-5.1) 03/05/22 11:28 BUN 49 mg/dL (7-18) H 03/05/22 04:02 Creatinine 3.01 mg/dL (0.55-1.3) H 03/05/22 04:02 Glucose 183 mg/dL (74-106) H 03/05/22 04:02 Phosphorus 3.1 mg/dL (2.5-4.9) 03/04/22 03:04 Magnesium 1.9 mg/dL (1.8-2.4) 03/05/22 04:02 Total Bilirubin 0.7 mg/dL (0.2-1.0) 03/03/22 20:13 AST 29 U/L (15-37) 03/03/22 20:13 ALT 30 U/L (12-78) 03/03/22 20:13 Alkaline Phosphatase 81 U/L (45-117) 03/03/22 20:13 Lipase 470 U/L (73-393) H 03/03/22 20:13 Home Medications: Hydralazine [Apresoline*] 25 mg PO TID 01/28/22 Potassium Chloride 1 tab PO DAILY 01/28/22 Metformin HCl [Glucophage*] 500 mg PO BIDWM 30 Days #60 tab 01/29/22 Aspirin 81 mg PO DAILY 03/04/22 Furosemide [Lasix] 20 mg PO BID 03/04/22 Insulin Glargine,Hum.rec.anlog [Lantus] 20 units SQ DAILY 03/04/22 Followup: Josh Powell DO [ACTIVE - CAN ADMIT] - 1-2 Weeks (Call for appointment.) Max Pro MD [ACTIVE - CAN ADMIT] - 1-2 Weeks (Call for appointment.) Unknown,U [Primary Care Provider] - 1 Week (Call for appointment.) Time spent managing pt's care (in minutes): 35
--- NOTE | 2022-03-05 16:18 | PN ---
Date of Progress Note: 03/05/2022 Subjective: Mr. Cat today is feeling better, but his weight went down. Objective: Vital Signs: His blood pressure is adequate at 114/67. He is in a paced rhythm, heart r ate of 84, afebrile. I's and O's are adequate. His O2 saturation is 99% on room air. Creatinine re silver stable at about 3.01. Hemoglobin of 9.8. Assessment: Mr. Jimbo Cat's main problem is mcxtv-bo-[id number] diastolic congestive heart failure a s well as diabetes and hypertension. He is on aspirin. He is on Lasix. He is on insulin. He shoul d be on a low dose carvedilol. He can go home whenever it is okay with admitting physician. We will see him in the office soon. CHIVO/FAITH Voice ID: [id number] Report ID: [id number]
[2022-03-05] MEDS ORDERED: FUROSEMIDE 40 MG/4 ML VIAL IV SCH (17:00)
[2022-03-06] MEDS ORDERED: POTASSIUM CL SA 10 MEQ TAB PO SCH (09:00)
--- NOTE | 2022-03-08 12:00 | EKG ---
Test Date: 2022-03-04 Test Time: 20:26:11 Payment Manager: RT-O MEASUREMENT RESULTS: Intervals: Rate: 81 VT: 124 QRSD: 182 QT: 502 QTc: 583 [place]: P: 93 VT: 124 QRS: -82 T: 97 INTERPRETIVE STATEMENTS: AV sequential or dual chamber electronic pacemaker Compared to ECG 03/04/2022 20:21:43 No significant changes Electronically Signed On 03-08-22 11:52:43 CDT by Max Pro
--- NOTE | 2022-03-08 12:01 | EKG ---
Test Date: 2022-03-04 Test Time: 20:21:43 Risk Prevention Engineer: RT-O MEASUREMENT RESULTS: Intervals: Rate: 80 [place]: 124 QRSD: 180 QT: 484 QTc: 558 [place]: P: -88 [place]: 124 QRS: -81 T: 102 INTERPRETIVE STATEMENTS: AV sequential or dual chamber electronic pacemaker Compared to ECG 03/03/2022 20:00:37 Ventricular-paced complex(es) or rhythm no longer present Electronically Signed On 03-08-22 11:52:45 CDT by Max Pro
--- NOTE | 2022-03-08 15:09 | CON ---
Date of Consultation: 03/04/[address] Kaur 03/03/2022. I saw the patient on 03/04/2022. Reason For Consultation: Congestive heart failure. History Of Present Illness: Mr. Cat is 81, has a history of chronic diastolic congestive heart jaimee lure, normal heart catheterization in 01/2022, moderate mitral regurgitation, has a history of AICD, has biventricular pacemaker, diabetes, CVA, comes in with CHF exacerbation. . He came in with a creatinine of 2.9. Elevated BNP of 5480. Lipase is 470. He denied chest pain. He denies na usea, vomiting, diaphoresis, palpitation, or syncope. Denied any fever or chills. Past Medical History: As stated above. Allergies: NONE. Review of Systems: Negative. Social History: Negative. Family History: Noncontributory. Medications: At home include Lasix, hydralazine, Levaquin, Imdur, potassium, and metformin. Physical Examination: Vital Signs: Stable. He was afebrile. HEENT: Negative. Neck: Supple with no bruit. Chest: Clear to auscultation and percussion. Cardiac: Exam revealed a regular rhythm and rate. No murmurs, gallops, or rubs. Abdomen: Benign. Extremities: Revealed no clubbing, cyanosis, or edema. Diagnostic Data: As stated earlier. Impression And Plan: 1.Kfrrm-oa-xvvwsxt diastolic heart failure. Continue the diuresis. Continue Lasix, hydralazine, Im dur, potassium, metformin, and Levaquin. 2.Renal insufficiency. Nephrology is following. 3.Elevated lactate indicated. 4.Elevated BNP congestive heart failure. . Ejection fraction 55% with moderat e MR recently. No need to repeat the cardiac echo he has a defibrillator, biventricular p acemaker, though he is not sure when he was last checked . NB/MODL Voice ID: [id number] Report ID: [id number]
== END 2022-03-05 15:30 | disposition home or self-care (01) | DRG 291 ==
LOC: ER 18:40 → ERHOLD 22:40 → 4TH 23:30
PROVIDERS: ADMIT Internal Medicine; ATTEND Internal Medicine
DX: I13.0 Hypertensive heart and chronic kidney disease with heart failure and stage 1 through stage 4 chronic kidney disease, or unspecified chronic kidney disease (principal); I50.23 Acute on chronic systolic (congestive) heart failure; N18.4 Chronic kidney disease, stage 4 (severe); N17.9 Acute kidney failure, unspecified; E87.1 Hypo-osmolality and hyponatremia; E11.22 Type 2 diabetes mellitus with diabetic chronic kidney disease; J44.9 Chronic obstructive pulmonary disease, unspecified; I25.10 Atherosclerotic heart disease of native coronary artery without angina pectoris; E78.5 Hyperlipidemia, unspecified; G20 Parkinson's disease; I48.91 Unspecified atrial fibrillation; D63.1 Anemia in chronic kidney disease; R07.89 Other chest pain; Z86.73 Personal history of transient ischemic attack (TIA), and cerebral infarction without residual deficits; Z95.810 Presence of automatic (implantable) cardiac defibrillator; Z20.822 Contact with and (suspected) exposure to COVID-19
CPT/HCPCS: 36415; 71045; 80048; 80076; 81003; 81015; 82947; 83690; 83735; 83880; 84100; 84132; 84484; 85025; 85610; 93005; 96374; 99285; J1644; J1815; J1940; J3475; U0003

== ENCOUNTER 2022-03-25 23:59 | Inpatient (IN) | payer OTHER ==
[2022-03-26] MEDS ORDERED: NA CHLORIDE 0.9% 1,000 ML ONE (00:32)
[2022-03-26] MEDS ORDERED: MORPHINE 2 MG/ML SYR ONE (01:02)
[2022-03-26] MEDS ORDERED: ONDANSETRON 4 MG/2 ML VIAL ONE (01:02)
[2022-03-26 01:05] LABS: Absolute Lymphocytes (CBC) 0.5 K/uL (0.7-4.9); Hematocrit 27.9 % (39.6-49.0); Lymphocytes % 5.1 % (15.3-44.8); MPV 8.1 fL (7.6-11.3); RBC Red Blood Cell Count 3.13 M/uL (4.33-5.43)
[2022-03-26 01:11] LABS: Protime INR 1.09
[2022-03-26 01:39] LABS: Albumin 2.9 g/dL (3.4-5.0); Bilirubin Direct 0.3 mg/dL (0-0.2); Bilirubin Total 0.6 mg/dL (0.2-1.0); Magnesium 1.5 mg/dL (1.8-2.4); Protein, Total 6.5 g/dL (6.4-8.2); Troponin High Sensitivity 54.8 pg/mL (<58.9)
--- NOTE | 2022-03-26 02:01 | EDPHYS ---
Physician Documentation [facility] Name: Jimbo Cat Age: 81 yrs Sex: Male : 1940 Arrival Date: 03/26/2022 Time: 00:01 Bed 15 Private MD: ED Physician Terry Sanderson HPI: 03/26 00:47 This 81 yrs old Male presents to ER via EMS with complaints of chest pain and lubna sob. 00:47 The patient or guardian reports chest pain that is located primarily in the substernal lubna area, anterior chest wall, right clavicle, left clavicle, anterior aspect of right upper chest and anterior aspect of left upper chest. Onset: 3 hour(s) ago. The pain radiates to right arm and left arm. Associated signs and symptoms: Pertinent positives: shortness of breath. The chest pain is described as a pressure. Duration: The patient or guardian reports multiple episodes, with no pattern. Modifying factors: The symptoms are alleviated by nothing. Severity of pain: At its worst the pain was mild in the emergency department the pain is unchanged. The patient has experienced similar episodes in the past, multiple times. Historical: - Allergies: 00:09 No Known Allergies; ke1 - PMHx: 00:09 Congestive heart failure; CVA; diabetes mellitus; Myocardial infarction; ke1 - PSHx: 00:09 Appendectomy; Pacemaker/Defibrillator; ke1 - Immunization history:: Adult Immunizations Client reports having NOT received the Covid vaccine. - Social history:: Smoking status: Patient/guardian denies using tobacco, the patient reports quitting approximately 34 years ago. - Family history:: not pertinent. ROS: 00:47 Constitutional: Negative for fever, chills, and weight loss, Eyes: Negative for injury, lubna pain, redness, and discharge, ENT: Negative for injury, pain, and discharge, Neck: Negative for injury, pain, and swelling, Abdomen/GI: Negative for abdominal pain, nausea, vomiting, diarrhea, and constipation, Back: Negative for injury and pain, : Negative for injury, bleeding, discharge, and swelling, MS/Extremity: Negative for injury and deformity, Skin: Negative for injury, rash, and discoloration, Neuro: Negative for headache, weakness, numbness, tingling, and seizure, Psych: Negative for depression, anxiety, suicide ideation, homicidal ideation, and hallucinations, Allergy/Immunology: Negative for hives, rash, and allergies, Endocrine: Negative for neck swelling, polydipsia, polyuria, polyphagia, and marked weight changes. 00:47 Cardiovascular: Positive for chest pain. 00:47 Respiratory: Positive for cough, shortness of breath, at rest. Exam: 00:47 Constitutional: This is a well developed, well nourished patient who is awake, alert, lubna and in no acute distress. Head/Face: Normocephalic, atraumatic. Eyes: Pupils equal round and reactive to light, extra-ocular motions intact. Lids and lashes normal. Conjunctiva and sclera are non-icteric and not injected. Cornea within normal limits. Periorbital areas with no swelling, redness, or edema. ENT: Nares patent. No nasal discharge, no septal abnormalities noted. Tympanic membranes are normal and external auditory canals are clear. Oropharynx with no redness, swelling, or masses, exudates, or evidence of obstruction, uvula midline. Mucous membranes moist. Neck: Trachea midline, no thyromegaly or masses palpated, and no cervical lymphadenopathy. Supple, full range of motion without nuchal rigidity, or vertebral point tenderness. No Meningismus. Chest/axilla: Normal chest wall appearance and motion. Nontender with no deformity. No lesions are appreciated. Cardiovascular: Regular rate and rhythm with a normal S1 and S2. No gallops, murmurs, or rubs. Normal PMI, no JVD. No pulse deficits. Abdomen/GI: Soft, non-tender, with normal bowel sounds. No distension or tympany. No guarding or rebound. No evidence of tenderness throughout. Back: No spinal tenderness. No costovertebral tenderness. Full range of motion. Male : Normal genitalia with no discharge or lesions. Skin: Warm, dry with normal turgor. Normal color with no rashes, no lesions, and no evidence of cellulitis. MS/ Extremity: Pulses equal, no cyanosis. Neurovascular intact. Full, normal range of motion. Neuro: Awake and alert, GCS 15, oriented to person, place, time, and situation. Cranial nerves II-XII grossly intact. Motor strength 5/5 in all extremities. Sensory grossly intact. Cerebellar exam normal. Normal gait. Psych: Awake, alert, with orientation to person, place and time. Behavior, mood, and affect are within normal limits. 00:47 ECG was reviewed by the Attending Physician. 00:47 Respiratory: the patient does not display signs of respiratory distress, Respirations: normal, Breath sounds: rales, that are mild, are located in both bases, Respiratory rate: 18 Vital Signs: 00:02 BP 130 / 76; Pulse 80; Resp 17; Temp 98.2(O); Weight 63.5 kg; Height 5 ft. 7 in. ke1 (170.18 cm); Pain 8/10; 03:22 BP 121 / 75; Pulse 83; Resp 24; Pulse Ox 100% on R/A; tw5 00:02 Body Mass Index 21.93 (63.50 kg, 170.18 cm) ke1 MDM: 00:04 Patient medically screened. lubna 00:54 Differential diagnosis: abnormal EKG, acute myocardial infarction, acute pericarditis, lubna anxiety, coronary artery disease chest wall pain, congestive heart failure Cholelithiasis pancreatitis, peptic ulcer disease, pleurisy, pneumonia, stable angina, unstable angina. HEART Score: History: Moderately Suspicious (1), ECG: Non specific repolarization disturbance / LBTB / PM (1), Age: > 45 and < 65 years (1), Risk Factors: > or = 3 Risk factors for atherosclerotic disease (2), [Hypercholesterolemia] [Hypertension] [DM] [+ Family HX] Troponin: < or = 1 x Normal Limit (0). The patient was given aspirin in the Emergency Department. The patient's deep vein thrombosis risk score was calculated as follows: Total Score: 0. This patient was found to be at low risk for a deep vein thrombosis by using the Well's assessment criteria. The patient's pulmonary embolism risk score was calculated as follows: Total Score: 0-2 points. This patient was found to be at low risk for a pulmonary embolism by using the Well's assessment criteria. YOGESH Risk Score: 1 - patient's age is greater or equal to 65 years, 1 - Three or more CAD risk factors, 1- Known CAD, 1 - ASA use in past 7 days, 1 - Recent [<24hrs] Severe Angina, TOTAL SCORE = 5. Data reviewed: vital signs, nurses notes, lab test result(s), EKG, radiologic studies, CT scan, plain films. Data interpreted: marketing communications associate: rate is 80 beats/min, rhythm is regular, Pulse oximetry: on 2L(s) per nasal canula, is 96 %. Test interpretation: by ED physician or midlevel provider: ECG, plain radiologic studies. 03/26 00:04 Order name: Basic Metabolic Panel; Complete Time: 01:56 [facility] 03/26 00:04 Order name: CBC with Diff; Complete Time: 01:26 [facility] 03/26 00:04 Order name: D-Dimer; Complete Time: : [facility] 03/26 00:04 Order name: LFT's; Complete Time: :56 [facility] 03/26 00:04 Order name: Magnesium; Complete Time: :56 [facility] 03/26 00:04 Order name: NT PRO-BNP; Complete Time: : [facility] 03/26 00:04 Order name: PT-INR; Complete Time: : [facility] 03/26 00:04 Order name: Troponin HS; Complete Time: 01:56 [facility] 03/26 00:04 Order name: Lipase; Complete Time: :56 [facility] 03/26 01:58 Order name: Urine Osmolality [facility] 03/26 01:58 Order name: Urine Sodium Random [facility] 03/26 01:58 Order name: Osmolality, Serum [facility] 03/26 01:58 Order name: Urine Creatinine la1 03/26 02:09 Order name: SARS-COV-2 RT PCR (Document "Date of Onset" if Symptomatic) tw5 03/26 00:04 Order name: XRAY Chest (1 view) [facility] 03/26 01:20 Order name: US Extremity Venous W Compression Shantanu [facility] 03/26 02:02 Order name: VQ scan (Nuclear Medicine) [facility] 03/26 02:06 Order name: Vent Perfusion VQ Scan [facility] 03/26 06:22 Order name: Glucose, Ancillary Testing [facility] 03/26 08:53 Order name: Hemoglobin A1c [facility] 03/26 08:59 Order name: Basic Metabolic Panel [facility] 03/26 08:59 Order name: Troponin High Sensitivity [facility] 03/26 12:06 Order name: Glucose, Ancillary Testing [facility] 03/26 00:04 Order name: EKG; Complete Time: 00:07 [facility] 03/26 00:04 Order name: Cardiac monitoring; Complete Time: 00:21 [facility] 03/26 00:04 Order name: EKG - Nurse/Tech; Complete Time: 00:21 [facility] 03/26 00:04 Order name: IV Saline Lock; Complete Time: 00:49 lubna 03/26 00:04 Order name: Labs collected and sent; Complete Time: 00:49 [facility] 03/26 00:04 Order name: O2 Per Protocol; Complete Time: 00:21 [facility] 03/26 00:04 Order name: O2 Sat Monitoring; Complete Time: 00:21 lubna EC:47 Rate is 80 beats/min. Clinical impression: Abnormal EKG without significant change and lubna No evidence of ischemia. Interpreted by me. Reviewed by me. Administered Medications: 02:02 Discontinued: NS 0.9% 1000 ml IV at 75 ml/hr continuous la1 00:28 Drug: Aspirin Chewable Tablet 324 mg Route: PO; ke1 00:46 Not Given (Duplicate Order): NS 0.9% 1000 ml IV at 125 ml/hr continuous lubna 00:49 Drug: NS 0.9% 1000 ml Route: IV; Rate: 75 ml/hr; Site: right forearm; ke1 01:01 Drug: morphine 2 mg Route: IVP; Infused Over: 4 mins; Site: right forearm; ke1 01:01 Drug: Zofran (Ondansetron) 4 mg Route: IVP; Site: right forearm; ke1 02:15 Drug: Magnesium Sulfate 1 grams Route: IVPB; Infused Over: 1 hrs; Site: right forearm; tw5 02:50 Drug: Lasix (furosemide) 40 mg Route: IVP; Site: right forearm; tw5 03:32 Follow up: Response: No adverse reaction tw5 03:02 Drug: Insulin Regular Human 10 units {Co-Signature: [email or web address] (Leilani Calvillo RN).} Route: IVP; tw5 Site: right forearm; 03:02 Drug: Insulin Regular Human 5 units {Co-Signature: [email or web address] (Leilani Calvillo RN).} Route: Sub-Q; tw5 Site: right upper arm; 04:06 Not Given (not needed): morphine 2 mg IVP once over 4 mins ke1 Disposition Summary: 03/26/22 02:01 Hospitalization Ordered Hospitalization Status: Inpatient Admission lubna Provider: Rell Lee cha Condition: Fair lubna Problem: new lubna Symptoms: have improved lubna Bed/Room Type: Standard ulbna Location: Telemetry/MedSurg (Inpatient)(03/26/22 11:33) em1 Room Assignment: 216(03/26/22 11:33) em1 Diagnosis - Chest pain, unspecified lubna - Hypo-osmolality and hyponatremia lubna - Anemia, unspecified lubna - Hypomagnesemia lubna - Type 1 diabetes mellitus with hyperglycemia lubna - Acute kidney failure, unspecified - ON CHRONIC lubna Forms: - Medication Reconciliation Form lubna - SBAR form lubna Signatures: Dispatcher [employer] EDMS Terry Sandesron MD MD cha Martinez, Eric em1 Shaq Panchal FNP-C FNP-Lisa Scott, RN RN Lynne Alonso tw5 Marielena Monteiro RN RN ke1 Leilani Calvillo RN sm5 Corrections: (The following items were deleted from the chart) 02:44 02:01 Telemetry/MedSurg (Inpatient) lubna cg 02:44 02:01 lubna 11: 02:44 [facility] ER HOLD cg em1 11:33 02:44 ERHOLD- cg em1
--- NOTE | 2022-03-26 02:01 | ER ---
Nurse's Notes [facility] Name: Jimbo Cat Age: 81 yrs Sex: Male : 1940 Arrival Date: 03/26/2022 Time: 00:01 Bed 15 Private MD: Diagnosis: Chest pain, unspecified;Hypo-osmolality and hyponatremia;Anemia, unspecified;Hypomagnesemia;Type 1 diabetes mellitus with hyperglycemia;Acute kidney failure, unspecified-ON CHRONIC Presentation: 03/26 00:02 Chief complaint: EMS states: Left side CP every time he takes a deep breath. ke1 Coronavirus screen: Vaccine status: Patient reports being unvaccinated. Ebola Screen: No symptoms or risks identified at this time. Initial Sepsis Screen: Does the patient meet any 2 criteria? No. Patient's initial sepsis screen is negative. Does the patient have a suspected source of infection? No. Patient's initial sepsis screen is negative. Risk Assessment: Do you want to hurt yourself or someone else? Patient reports no desire to harm self or others. Onset of symptoms was March 25, 2022 at 21:00. 00:02 Method Of Arrival: EMS: [facility] ke1 00:02 Acuity: SYDNIE 3 ke1 Triage Assessment: 00:10 Pain: Complains of pain in left side chest pain Pain does not radiate. Pain currently ke1 is 8 out of 10 on a pain scale. Quality of pain is described as shooting. Cardiovascular: Reports chest pain, lightheadedness, Parent/caregiver reports patient has had Pacemaker and defibrillator. Respiratory: Reports pain with respiration. 02:37 General: Appears in no apparent distress. Behavior is appropriate for age. tw5 Historical: - Allergies: 00:09 No Known Allergies; ke1 - PMHx: 00:09 Congestive heart failure; CVA; diabetes mellitus; Myocardial infarction; ke1 - PSHx: 00:09 Appendectomy; Pacemaker/Defibrillator; ke1 - Immunization history:: Adult Immunizations Client reports having NOT received the Covid vaccine. - Social history:: Smoking status: Patient/guardian denies using tobacco, the patient reports quitting approximately 34 years ago. - Family history:: not pertinent. Screenin:37 Abuse screen: Denies threats or abuse. Nutritional screening: No deficits noted. tw5 Tuberculosis screening: No symptoms or risk factors identified. Fall Risk No fall in past 12 months (0 pts). No secondary diagnosis (0 pts). IV access (20 points). Ambulatory Aid- None/Bed Rest/Nurse Assist (0 pts). Gait- Normal/Bed Rest/Wheelchair (0 pts) Mental Status- Oriented to own ability (0 pts). Total Johnston Fall Scale indicates No Risk (0-24 pts). Assessment: 02:37 Reassessment: Patient appears in no apparent distress at this time. Patient and/or tw5 family updated on plan of care and expected duration. Pain level reassessed. Patient is alert, oriented x 3, equal unlabored respirations, skin warm/dry/pink. Patient denies pain at this time. Patient states feeling better. Patient states symptoms have improved. 03:24 Reassessment: Patient appears in no apparent distress at this time. No changes from tw5 previously documented assessment. Vital Signs: 00:02 BP 130 / 76; Pulse 80; Resp 17; Temp 98.2(O); Weight 63.5 kg; Height 5 ft. 7 in. ke1 (170.18 cm); Pain 8/10; 03:22 BP 121 / 75; Pulse 83; Resp 24; Pulse Ox 100% on R/A; tw5 00:02 Body Mass Index 21.93 (63.50 kg, 170.18 cm) ke1 ED Course: 00:01 Patient arrived in ED. mw2 00:02 Terry Sanderson MD is Attending Physician. lubna 00:02 Marielena Monteiro RN is Primary Nurse. ke1 00:08 Triage completed. ke1 00:35 XRAY Chest (1 view) In Process Unspecified. EDMS 00:48 Inserted saline lock: 20 gauge in right forearm, using aseptic technique. ke1 01:59 Rell Lee MD is Hospitalizing Provider. lubna 02:01 US Extremity Venous W Compression Shantanu In Process Unspecified. EDMS 02:35 SARS-COV-2 RT PCR (Document "Date of Onset" if Symptomatic) Sent. tw5 02:37 Bed in low position. Call light in reach. Side rails up X 1. tw5 02:38 Arm band placed on. tw5 10:33 Primary Nurse role handed off by Marielena Monteiro RN jg9 10:33 Abreu, Sandy, RN is Primary Nurse. jg9 11:48 No provider procedures requiring assistance completed. jg9 11:48 Patient admitted, IV remains in place. jg9 Administered Medications: 02:02 Discontinued: NS 0.9% 1000 ml IV at 75 ml/hr continuous la1 00:28 Drug: Aspirin Chewable Tablet 324 mg Route: PO; ke1 00:46 Not Given (Duplicate Order): NS 0.9% 1000 ml IV at 125 ml/hr continuous lubna 00:49 Drug: NS 0.9% 1000 ml Route: IV; Rate: 75 ml/hr; Site: right forearm; ke1 01:01 Drug: morphine 2 mg Route: IVP; Infused Over: 4 mins; Site: right forearm; ke1 01:01 Drug: Zofran (Ondansetron) 4 mg Route: IVP; Site: right forearm; ke1 02:15 Drug: Magnesium Sulfate 1 grams Route: IVPB; Infused Over: 1 hrs; Site: right forearm; tw5 02:50 Drug: Lasix (furosemide) 40 mg Route: IVP; Site: right forearm; tw5 03:32 Follow up: Response: No adverse reaction tw5 03:02 Drug: Insulin Regular Human 10 units {Co-Signature: sm5 (Leilani Calvillo RN).} Route: IVP; tw5 Site: right forearm; 03:02 Drug: Insulin Regular Human 5 units {Co-Signature: sm5 (Leilani Calvillo RN).} Route: Sub-Q; tw5 Site: right upper arm; 04:06 Not Given (not needed): morphine 2 mg IVP once over 4 mins ke1 Medication: 11:48 VIS not applicable for this client. jg9 Outcome: 02:01 Decision to Hospitalize by Provider. lubna 11:48 Admitted to Med/surg accompanied by nurse, via wheelchair, with chart, Report called to keyanna Singh RN 11:48 Condition: stable jg9 12:08 Patient left the ED. jg9 Signatures: Dispatcher [employer] EDTerry Rees MD MD cha Westbrook, MyKena mw2 Wood, Tiffany tw5 Sandy Abreu, RN SABINE jg9 Marielena Monteiro RN RN ke1 Leilani Calvillo RN 5 Corrections: (The following items were deleted from the chart) 02:36 02:15 Magnesium Sulfate 1 grams IVPB in right antecubital over 1 hrs tw5 tw5
[2022-03-26] MEDS ORDERED: MAGNESIUM SULFATE 1 gm IVPB 1 GM/100 ML BAG IV ONE (02:18)
--- NOTE | 2022-03-26 02:44 | P.HP ---
Certification for Inpatient Patient admitted to: Observation With expected LOS: <2 Midnights Patient will require the following post-hospital care: None Practitioner: I am a practitioner with admitting privileges, knowledge of patient current condition, hospital course, and medical plan of care. Services: Services provided to patient in accordance with Admission requirements found in Title 42 Section 412.3 of the Code of Federal Regulations Patient History Date of Service: 03/26/22 Reason for admission: Chest pain History of Present Illness: 81-year-old male with history of chronic systolic congestive heart failure, CKD 4, insulin-dependent diabetes, hypertension, COPD presents the emergency department for chest pain and shortness of breath. Patient was evaluated in the emergency department found to be hyperglycemic with mild hyponatremia, elevated BNP, hypomagnesemia elevated D-dimer. Chest x-ray was not different from previous EKG without ST elevations initial troponin negative patient had recent cardiac catheterization performed on 01/29/2022 with completely normal coronaries. Patient sodium adjusted for the hyperglycemia today would be 129, he was discharged previously on Lantus but he reports he has not been taking insulin at home he may have not picked up this prescription. ED provider wishes to admit for further evaluation and management of patient's chest pain, to rule out D-dimer and gain better control of his diabetes. Allergies No Known Allergies Allergy (Verified 03/23/21 04:35) Home Medications: Hydralazine [Apresoline*] 25 mg PO TID 01/28/22 Potassium Chloride 1 tab PO DAILY 01/28/22 Metformin HCl [Glucophage*] 500 mg PO BIDWM 30 Days #60 tab 01/29/22 Aspirin 81 mg PO DAILY 03/04/22 Furosemide [Lasix] 20 mg PO BID 03/04/22 Insulin Glargine,Hum.rec.anlog [Lantus] 20 units SQ DAILY 03/04/22 - Past Medical/Surgical History Diabetic: Yes -: Pacemaker/defibrillator 2010 -: Hypertension -: CAD -: Hyperlipidemia -: History of CVA -: Depression -: Bilateral cataracts -: Chronic systolic CHF -: COPD -: Parkinsons -: CKD [address] 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 moist/pink, EOMI, Sclerae nonicteric Neck: Supple, 2+ carotid pulse no bruit, No LAD, Without JVD or thyroid abnormality Respiratory: Normal air movement, Crackles/rales Cardiovascular: Regular rate/rhythm, Normal S1 S2, Edema Capillary refill: <2 Seconds Gastrointestinal: Normal bowel sounds, No tenderness Musculoskeletal: No tenderness Integumentary: No rashes Neurological: Normal speech, Normal strength at 5/5 x4 extr, Normal tone, Normal affect Lymphatics: No axilla or inguinal lymphadenopathy - Studies Laboratory Data (last 24 hrs) 03/26/22 00:42: PT 12.0, INR 1.09 03/26/22 00:42: WBC 8.9, Hgb 9.8 L, Hct 27.9 L, Plt Count 120 L 03/26/22 00:42: Sodium 124 L, Potassium 4.0, BUN 56 H, Creatinine 2.53 H, Glucose 407 H*, Magnesium 1.5 L, Total Bilirubin 0.6, AST 67 H, ALT 111 H, Alkaline Phosphatase 96, Lipase 476 H Assessment and Plan - Plan Assessment: Chest painatypical Acute on chronic systolic congestive heart failure-with pacemaker/defibrillator 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 He had a recent heart catheterization on 01/30/2020 with normal coronaries. Continue other home medications monitor on telemetry, will trend troponins as well. Consult cardiology if this becomes necessary. Acute on chronic systolic congestive heart failure-with pacemaker/defibrillator: Continue home medications, will gently diurese with Lasix given his hyponatremia, elevated BNP and mild edema of lower extremities. 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 CKD 4: Stable, continue diuresis at this time recheck chemistry later today, patient's expenditure requisition clerk is Dr. Powell consult for any worsening or as necessary. DVT PPX: Heparin Code status: Full Discharge Plan: Home Plan to discharge in: 24 Hours - Advance Directives Does patient have a Living Will: Yes Does patient have a Durable POA for Healthcare: No - Code Status/Comfort Care Code Status Assessed: Yes (Full code) Critical Care: No Time Spent Managing Pts Care (In Minutes): 70
[2022-03-26] MEDS ORDERED: INSULIN -REGULAR HUMAN 50 UNIT/0.5 ML ML ONE ×3 (02:48→12:09)
[2022-03-26] MEDS ORDERED: FUROSEMIDE 40 MG/4 ML VIAL ONE (02:49)
[2022-03-26 05:12] VITALS: BMI 21.9
[2022-03-26] MEDS ORDERED: ONDANSETRON 4 MG/2 ML VIAL IV PRN (07:00)
[2022-03-26] MEDS: INSULIN -REGULAR HUMAN 50 UNIT/0.5 ML ML SQ SCH ×4 (07:30→20:43)
[2022-03-26] MEDS ORDERED: INSULIN GLARGINE 100 UNIT/ML SQ ONE (08:19)
[2022-03-26] MEDS ORDERED: HEPARIN 5000 UNIT/ML 1 ML VIAL ONE (08:19)
[2022-03-26] MEDS ORDERED: FUROSEMIDE 20 MG/ 2ML VIAL ONE (08:20)
[2022-03-26] MEDS: HEPARIN 5000 UNIT/ML 1 ML VIAL SQ SCH ×2 (08:43→20:44)
[2022-03-26] MEDS: FUROSEMIDE 20 MG/ 2ML VIAL IV SCH ×2 (08:43→17:00)
[2022-03-26 08:51] LABS: Potassium 3.3 mmol/L (3.5-5.1)
[2022-03-26 08:58] LABS: Troponin High Sensitivity 63.1 pg/mL (<58.9)
[2022-03-26] MEDS: INSULIN GLARGINE 100 UNIT/ML SQ SCH (09:00)
--- NOTE | 2022-03-26 14:54 | RAD REPORT ---
EXAM DESCRIPTION: Chest Radiography COMPARISON Chest radiograph February 18, 2022 CLINICAL HISTORY: [facility] MAIN CHEST PAIN FINDINGS: A single AP view of the chest demonstrates a normal cardiomediastinal silhouette. Left viet st pacemaker in place. No pneumothorax or pleural effusion. Perihilar opacities are stable. Osseous structures are intact. IMPRESSION: Stable chest. Electronically signed by: Doni Red MD 03/26/2022 12:53 AM CDT Due to temporary technical issues with the PACS/Fluency reporting system, reports are being signed by the in house radiologists without review as a courtesy to insure prompt reporting. The interpreting radiologist is fully responsible for the content of the report.
--- NOTE | 2022-03-26 15:27 | RAD REPORT ---
EXAM DESCRIPTION: Ultrasound Lower Extremity Venous Doppler COMPARISON: None. CLINICAL HISTORY: [facility] MAIN PAIN TECHNIQUE: Multiple grayscale, color, and spectral Doppler images of the bilateral lower extremity v eins were obtained. FINDINGS: Right: The common femoral, greater saphenous, superficial femoral, popliteal, posterior tibial, and peroneal veins demonstrate normal flow, augmentation, and compressibility. Left: The common femoral, greater saphenous, superficial femoral, popliteal, posterior tibial, and peroneal veins demonstrate normal flow, augmentation, and compressibility. IMPRESSION: No evidence of deep vein thrombosis. Electronically signed by: Doni Red MD 03/26/2022 2:30 AM CDT Due to temporary technical issues with the PACS/Fluency reporting system, reports are being signed by the in house radiologists without review as a courtesy to insure prompt reporting. The interpreting radiologist is fully responsible for the content of the report.
[2022-03-27] MEDS: ACETAMINOPHEN 500 MG TAB PO PRN ×2 (01:50→20:25)
[2022-03-27 06:25] LABS: Absolute Lymphocytes (CBC) 0.5 K/uL (0.7-4.9); Hematocrit 29.7 % (39.6-49.0); Lymphocytes % 6.5 % (15.3-44.8); MCV 87.3 fL (80-100); MPV 7.7 fL (7.6-11.3)
[2022-03-27 06:53] LABS: Albumin 2.8 g/dL (3.4-5.0); Bilirubin Total 0.7 mg/dL (0.2-1.0); Potassium 3.6 mmol/L (3.5-5.1); Protein, Total 6.5 g/dL (6.4-8.2)
[2022-03-27] MEDS: HEPARIN 5000 UNIT/ML 1 ML VIAL SQ SCH ×2 (09:23→20:26)
[2022-03-27] MEDS: FUROSEMIDE 20 MG/ 2ML VIAL IV SCH ×2 (09:24→17:02)
[2022-03-27] MEDS: INSULIN -REGULAR HUMAN 50 UNIT/0.5 ML ML SQ SCH ×4 (09:24→20:27)
[2022-03-27] MEDS: INSULIN GLARGINE 100 UNIT/ML SQ SCH (09:25)
--- NOTE | 2022-03-27 11:40 | P.PN ---
Subjective Date of Service: 03/27/22 Chief Complaint: Chest pain No changes still complaining of severe pleuritic chest pain with inspiration and cardiac cath was normal Review of Systems General: Weakness Cardiovascular: Chest Pain Physical Examination - Vital Signs Temperature: 97.1 F Blood Pressure: 126/70 Pulse: 82 Respirations: 17 Pulse Ox (%): 98 - Physical Exam General: Alert, In no apparent distress, Oriented x3 Respiratory: Clear to auscultation bilaterally Cardiovascular: No edema, Regular rate/rhythm Gastrointestinal: Normal bowel sounds, Soft and benign Assessment And Plan - Current Problems (Diagnosis) (1) Pleuritic chest pain Current Visit: Yes Status: Acute Plan: Patient is 81 years of age metabolic syndrome chronic renal failure has had this chronic left-sided pleuritic chest pain with inspiration normal cardiac cath history of chronic renal failure seen by nephrology labs reviewed mild anemia vital signs stable oxygenation satisfactory chest x-ray is clear I ordered a CT scan of the chest he does have a left-sided pacemaker rest x-ray shows cardiomegaly patient refused VQ scan Discharge Plan: Home Plan to discharge in: 24 Hours
--- NOTE | 2022-03-27 12:43 | RAD REPORT ---
EXAM DESCRIPTION: CT - Thorax Wo Con - 03/27/2022 12:20 pm CLINICAL HISTORY: Chest pain COMPARISON: 2020 TECHNIQUE: Computed axial tomography of the chest was obtained. Contrast was not requested. All CT scans are performed using dose optimization technique as appropriate and may include automated exposure control or mA/KV adjustment according to patient size. FINDINGS: The evaluation of mediastinum, juan francisco and vessels is limited secondary to lack of IV contras t administration. Mild chronic lung opacities. Chronic right middle lobe atelectasis. Calcified mediastinal and calcified hilar lymph nodes. Splenic and hepatic granulomata. A pleural effusion is not present. No pericardial effusion. Cardiomegaly IMPRESSION: Chronic right middle lobe atelectasis Calcified mediastinal and calcified hilar lymph nodes. Splenic and hepatic granulomas. . These findin gs indicate prior granulomatous disease
[2022-03-27] MEDS: predniSONE 20 MG TAB PO SCH ×2 (16:57→20:26)
[2022-03-27] MEDS: DULERA 200/5 (MOMETASONE/FORMOTEROL) INHALER IH SCH ×2 (16:58→21:00)
[2022-03-27 17:48] VITALS: O2SAT 99
[2022-03-27] MEDS ORDERED: MELATONIN 5 MG TABLET PO PRN (23:04)
--- NOTE | 2022-03-28 08:10 | P.DS ---
Admission Date: 03/26/22 Discharge Date: 03/28/22 Disposition: ROUTINE DISCHARGE Discharge Condition: FAIR Reason for Admission: Chest pain - Problems (1) Pleuritic chest pain Current Visit: Yes Status: Acute Brief History of Present Illness: Patient is 81 years of age admitted with atypical chest pain Hospital Course: He had his pain improved on admission to the hospital with steroids and inhalers have an element of obstructive airways disease the time of discharge he was pain-free vital signs all stable patient has baseline chronic renal failure Home medications list not verified he was given Dulera from the hospital on examination alert oriented x3 chest clear cardiovascular system heart sounds normal oxygenation satisfactory Vital Signs/Physical Exam: Temp Pulse Resp BP Pulse Ox 97.0 F 85 16 123/71 98 03/28/22 04:00 03/28/22 04:00 03/28/22 04:00 03/28/22 04:00 03/28/22 04:00 Laboratory Data at Discharge: WBC 8.4 K/uL (4.3-10.9) 03/27/22 05:58 Hgb 10.6 g/dL (13.6-17.9) L 03/27/22 05:58 Hct 29.7 % (39.6-49.0) L 03/27/22 05:58 Plt Count 114 K/uL (152-406) L 03/27/22 05:58 PT 12.0 SECONDS (9.5-12.5) 03/26/22 00:42 INR 1.09 03/26/22 00:42 Sodium 129 mmol/L (136-145) L 03/27/22 05:58 Potassium 3.6 mmol/L (3.5-5.1) 03/27/22 05:58 BUN 54 mg/dL (7-18) H 03/27/22 05:58 Creatinine 2.11 mg/dL (0.55-1.3) H 03/27/22 05:58 Glucose 184 mg/dL (74-106) H 03/27/22 05:58 Magnesium 1.5 mg/dL (1.8-2.4) L 03/26/22 00:42 Total Bilirubin 0.7 mg/dL (0.2-1.0) 03/27/22 05:58 AST 64 U/L (15-37) H 03/27/22 05:58 ALT 109 U/L (12-78) H 03/27/22 05:58 Alkaline Phosphatase 93 U/L (45-117) 03/27/22 05:58 Lipase 476 U/L (73-393) H 03/26/22 00:42 Home Medications: Hydralazine [Apresoline*] 25 mg PO TID 01/28/22 Potassium Chloride 1 tab PO DAILY 01/28/22 Metformin HCl [Glucophage*] 500 mg PO BIDWM 30 Days #60 tab 01/29/22 Aspirin 81 mg PO DAILY 03/04/22 Furosemide [Lasix] 20 mg PO BID 03/04/22 Insulin Glargine,Hum.rec.anlog [Lantus] 20 units SQ DAILY 03/04/22 predniSONE [Deltasone*] 10 mg PO BID #20 tab 03/27/22 Mometasone/Formoterol [Dulera 200 Mcg/5 Mcg Inhaler] 2 puff IH BID #60 inhaler 03/28/22 New Medications: predniSONE [Deltasone*] 10 mg PO BID #20 tab Mometasone/Formoterol [Dulera 200 Mcg/5 Mcg Inhaler] 2 puff IH BID #60 inhaler Followup: Micha Hernandez MD [Primary Care Provider] -
[2022-03-28] MEDS: DULERA 200/5 (MOMETASONE/FORMOTEROL) INHALER IH SCH (09:00)
[2022-03-28] MEDS: predniSONE 20 MG TAB PO SCH (09:26)
[2022-03-28] MEDS: INSULIN GLARGINE 100 UNIT/ML SQ SCH (09:27)
[2022-03-28] MEDS: FUROSEMIDE 20 MG/ 2ML VIAL IV SCH (09:28)
[2022-03-28] MEDS: HEPARIN 5000 UNIT/ML 1 ML VIAL SQ SCH (09:29)
[2022-03-28] MEDS: INSULIN -REGULAR HUMAN 50 UNIT/0.5 ML ML SQ SCH ×2 (10:09→12:04)
[2022-03-28 12:00] VITALS: BP 127/77; TEMP 97.3
--- NOTE | 2022-03-29 13:52 | EKG ---
Test Date: 2022-03-27 Test Time: 01:38:33 Solid Surface Fabricator: RT-O MEASUREMENT RESULTS: Intervals: Rate: 83 NH: 124 QRSD: 170 QT: 498 QTc: 585 [place]: P: NH: 124 QRS: -77 T: 112 INTERPRETIVE STATEMENTS: AV sequential or dual chamber electronic pacemaker Compared to ECG 03/26/2022 00:20:58 No significant changes Electronically Signed On 03-29-22 13:47:53 CDT by Hector Bar
--- NOTE | 2022-03-29 13:58 | EKG ---
Test Date: 2022-03-26 Test Time: 00:20:58 Bathing Suit Maker: ZACK MEASUREMENT RESULTS: Intervals: Rate: 80 [place]: 104 QRSD: 172 QT: 496 QTc: 572 [place]: P: [place]: 104 QRS: -83 T: 85 INTERPRETIVE STATEMENTS: AV sequential or dual chamber electronic pacemaker Compared to ECG 03/04/2022 20:26:11 No significant changes Electronically Signed On 03-29-22 13:50:46 CDT by Hector Bar
--- OUTSIDE RECORDS SUMMARY | 2022-04-07 17:52 | XMS REPORT | Continuity of Care Document ---
:1940 Author Organization [facility] t Address [address] [place] [address] Care Team Providers Name Role Phone JOHNSON [...] Date Expiration Date Lauryn little UNITED MEDICARE [id number] 2021 O 00:00:00 Problems Condition Condition Condition [...] Disease Active Univers 9-11 ity of 00:00: [place] [facility] Pneumonia Pneumonia Disease Active Uni vers due to due to 9-11 ity of infectious infectious [place] organism organism 00 Medica l Branch Elevated Elevated Disease Active Unive rs troponin I troponin I 9-11 it y of level level 00:00: [place] [facility] Acute on Acute on Disease Active Unive rs chronic chronic 910 [place]y of diastolic diastolic [place] congestive congestive 00 Me dical heart heart Branch failure failure Chest pain Chest pain Disease Active U nivers 7-07 ity of 00:00: Medical Branch Obesity Obesity Disease Active Overview: Univ ers 4-17 ICD10 ity of 00:00: Diagnosis Term Medical Shot Dropper Branch Utility 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 U nivers unspecifie unspecifie 7-09 it y of d type d type 00:00: [place] diabetes diabetes Medica l mellitus mellitus 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, ions, uncontroll uncontroll ed(250.52) ed(250.52) HLD HLD Disease Active Overview: Univer s (hyperlipi (hyperlipi 3-09 ICD10 it y of demia) demia) 00:00: Diagnosis Term Medical Shot Dropper Branch Utility Essential Essential Disease Active Uni [...] No Known DA Active U [facility] -16 [place] 00:00: [address] No Known DA Active U [facility] 05-20 [place] 00:00: [address] NO KNOWN Drug Active Univers ALLERGIE Class ity of S [facility] NO KNOWN Allergy Active [facility] Social History Social Habit Start Date Stop Date Quantity Comments Source Tobacco Comment quit 30 years Univer sity of ago [facility] Alcohol Comment 3 drinks (vodka) Uni versity of nightly [facility] Sex Assigned At Universit y of [facility] Exposure to Unable to assess Univers ity of SARS-CoV-2 [facility] (event) [place] Tobacco use and 2020-05-30 2020-05-30 Never used Universit y of exposure 00:00:00 00:00:00 [facility] Alcohol intake 2020-05-30 2020-05-30 Current drinker Unive rsity of 00:00:00 00:00:00 of alcohol [facility] (finding) [place] Smoking Status Start Date Stop Date Source Never smoker [facility] Medications Ordered Filled Start Stop Current Ordering Indication Dosage Frequency Signature Comments Components Source Medication Medication Date Date Medication? Clinician (SIG) Name Name ASPIRIN 81 0 Yes once daily U nivers MG ORAL 9-16 ity of CHEW 22:57: [address] magnesium 2019-0 Yes 400mg Take 400 Uni vers oxide 9-16 mg by ity of (MAG-OX 22:57: mouth [place] 400) 400 mg 45 daily. Medica l tablet Branch Cyanocobala Yes Place Unive rs min 9-16 under the ity of (VITAMIN 22:57: tongue. [place] B-12) 2,500 45 Medical mcg Subl Branch CALCIUM 2019-0 Yes Take by Univer s CARBONATE/V 9-16 mouth. ity of ITAMIN D3 22:57: [place] (VITAMIN 45 Medical D-3 ORAL) Branch MULTIVITAMI 0 Yes Take by Un audra N 9-16 mouth. ity of W-MINERALS/ 22:57: [place] LUTEIN 45 Medical (CENTRUM Branch SILVER ORAL) ASPIRIN 81 2019-0 Yes once daily U nivers MG ORAL 9-16 ity of CHEW 22:57: [place] [address] Medical Branch magnesium 2020-0 Yes 400mg Take 400 [...] daily. Medical per tablet Branch atorvastati Yes [id number] 20mg Take 1 Univers n 20 mg 9-16 tablet by ity of tablet 00:00: mouth at [place] 00 bedtime. Medical Branch primidone 2019-0 Yes [id number] 50mg Take 1 U nivers 50 mg 9-16 tablet by ity of tablet 00:00: mouth [place] 00 every 12 Medical (twelve) Branch hours. metoprolol 2019-0 Yes [id number] 25mg Take 1 Univers tartrate 25 9-16 tablet by ity of mg tablet 00:00: mouth 2 [place] 00 (two) Medical times Branch daily. sacubitriL- 2019-0 Yes [id number] 1{tbl} Take 1 Univers valsartan 9-16 tablet by ity o f 97-103 mg 00:00: mouth 2 [place] tablet 00 (two) Medical times Branch daily. levoFLOXaci 2019-0 Yes [id number] 500mg Take 1 Univers n 500 mg 9-16 tablet by ity of tablet 00:00: mouth [place] 00 every 24 Medical (twenty-fo Branch ur) hours. acidophilus 2020-0 Yes [id number] 1g Take 1 Univers 100 million 9-16 tablet by ity of cell tablet 00:00: mouth 2 [place] as 00 (two) Medical times Branch daily. atorvastati 2020-0 Yes [id number] 20mg Take 1 Univers n 20 mg 9-16 tablet by ity of tablet 00:00: mouth at [place] 00 bedtime. Medical Branch primidone 2020-0 Yes [id number] 50mg Take 1 U nivers 50 mg 9-16 tablet by ity of tablet 00:00: mouth [place] 00 every 12 Medical (twelve) Branch hours. metoprolol 2020-0 Yes [id number] 25mg Take 1 Univers tartrate 25 9-16 tablet by ity of mg tablet 00:00: mouth 2 [place] 00 (two) Medical times Branch daily. sacubitriL- 2020-0 Yes [id number] 1{tbl} Take 1 Univers valsartan 9-16 tablet by ity o f 97-103 mg 00:00: mouth 2 [place] tablet 00 (two) Medical times Branch daily. levoFLOXaci 2020-0 Yes [id number] 500mg Take 1 Univers n 500 mg 9-16 tablet by ity of tablet 00:00: mouth [place] 00 every 24 Medical (twenty-fo Branch ur) hours. acidophilus 2020-0 Yes [id number] 1g Take 1 Univers 100 million 9-16 tablet by ity of cell tablet 00:00: mouth 2 [place] as 00 (two) Medical times Branch daily. KCL 2020-0 2020- No 20meq 20 mEq, Univers (KLOR-CON 06-03-15 Oral, ONCE ity of M20) tablet 02:30: 01:54 NOW, 1 [place] as 20 mEq 00 :00 dose, [facility] 06/02/20 at Branch 2130, Routine levoFLOXaci 2020-0 Yes 750mg 750 mg, Un audra n 9-14 Oral, ity of (LEVAQUIN) 16:00: Q48H, [place] tablet 750 00 First dose Med ical mg on [facility] Branch 06/02/20 at 1100, Until Discontinu [...] First dose [place] mg 00 on [facility] 06/01/20 at Branch 2215, Until Discontinu ed, Routine bisacodyL 2019- No 10mg 10 mg, Unive rs (DULCOLAX) 06-02 Rectal, ity o f suppository 03:15: 01:59 QHS, 3 [place] as 10 mg 00 :00 doses, Medical First dose Branch on [place] 06/01/20 at 2215, Last dose on Tue06/03/20 at 2100, Routine epoetin 2019- 2020- No 4000U 4,000 Univers renetta-epbx 06-01 Units, ity of (RETACRIT) 19:45: 19:59 Subcutaneo [place] injection 00 :00 us, ONCE, Medic al 4,000 Units 1 dose, Branc h [place] 06/01/20 at 1445, Routine
membership manager approving Restricted medication : AKILAH ANDRE ANGELES furosemide 2019- 2020- No 40mg 40 mg, IV U nivers (LASIX) 06-01 Push, ity of injection 14:00: 17:48 DAILY, [place] 40 mg 00 :15 First dose Medical (after Branch last modificati on) on [place] 06/01/20 at 0900, Until Discontinu ed, LICO ferrous 2019-0 2020- No 325mg 325 mg, Unive rs sulfate 06-01 Oral, BID ity of tablet 325 13:00: 01:14 MEALS, [place] mg 00 :51 First dose Medical on [place] Branch 06/01/20 at 0800, Until Discontinu ed, Routine haloperidol 2020-0 Yes 5mg 5 mg, Slow Univers lactate 06-01 IV Push, ity of (HALDOL) 01:16: QHSPRN, [place] injection 5 44 Starting Medi mecca mg [facility] 05/31/20 at 2016, Until Discontinu ed, Routine, insomnia, psychosis, agitation piperacilli 2020-0 2020- No 2.25g 2.25 g, IV Univers n-tazobacta 06-01 Piggyback, i ty of m (ZOSYN) 00:45: 14:59 Q6H ABX, [place] as 2.25 g/50 00 :52 First dose Medi mecca mL RTU on [facility] 05/31/20 at 1945, Until Discontinu ed, 50 mL
Reas on for Anti-Infec tive: Documented Infection< br>Documen moshe Infection Site: Respirator y
Durat ion of Therapy: 10 days KCL 2020-0 2020- No 40meq 40 mEq, Univers (KLOR-CON 06-01 Oral, ity of M20) tablet 00:45: 01:23 ONCE, 1 [place] 40 mEq 00 :00 dose, [facility] Medical 05/31/20 at Branch 1945, Routine magnesium 2019-0 2020- No 2g 2 g, IV Univ ers sulfate in 06-01 Piggyback, it y of water 2 00:45: 01:23 ONCE, 1 [place] gram/50 mL 00 :00 dose, [facility] Medi mecca (4 %) 05/31/20 at [place] infusion 2 1944, g Routine sodium 2019-0 Yes 125mg 125 mg, IV Univ ers ferric 05-31 Piggyback, ity of gluconate 14:00: DAILY, [place] (FERRLECIT) 00 First dose Me dical 125 mg in on [facility] NaCl 0.9% 05/31/20 at (NS) [...] 05/30/20 at Br anch mL 1400, Routine
membership manager approving Restricted medication : VANESSA SHAH vancomycin 2020-0 2020- No 15mg/kg 1,000 mg Univers (VANCOCIN) 05-3014 (rounded ity of 1,000 mg in 17:15: 14:59 from 990 [place] NaCl 0.9% 00 :52 mg = 15 Medical (NS) 250 mL mg/kg ?66 [facility] VIAL-MATE kg), IV IV Piggyback, [...] on Tue Medical tablet 1 05/30/20 at [facility] h tablet 0800, Until Discontinu ed, Routine
membership manager approving Restricted medication : MEGADC heparin 2020-0 [...] mg, IV Univers n in D5W 05-30 0914 Piggyback, ity of (LEVAQUIN) 07:00: 15:03 Q24H ABX, [place] 750 mg/150 00 :19 First dose Med ical mL on Tue Branch Piggyback 05/30/20 at 750 mg 0200, Until Discontinu ed, 150 mL
R joseline for Anti-Infec tive: Documented Infection< br>Documen moshe Infection Site: Respirator y
Durat ion of Therapy: 10 days ascorbic 2020-0 Yes 500mg 500 mg, Unive rs acid -11 Oral, TID, ity of (vitamin C) 06:15: First dose [place] (VITAMIN C) 00 on Tue Medica l tablet 500 05/30/20 at [facility] mg 0115, Until Discontinu ed, Routine cholecalcif [...] Branch 05/30/20 at 0100, Until Discontinu ed, LCIO, Blood Glucose < or = 70 mg/dL [...] on Tue Medical mg 05/30/20 at Branch 010, Until Discontinu ed, Routine atorvastati 2020-0 Yes 40mg 40 mg, Univ ers n (LIPITOR) 05-30 Oral, QHS, it y of tablet 40 06:00: First dose [place] mg 00 on Tue Medical 05/30/20 at Branch 010, Until Discontinu ed, Routine aspirin 2020-0 Yes [...] [place] 60 mg 00 :00 dose, [facility] Medical 05/29/20 at Branch 2215, LICO albuterol 2020- No 8{puff} 8 Puff, U nivers (VENTOLIN) 05-30 Inhalation it y of inhaler 8 01:45: 01:04 , ONCE, 1 [place] Puff 00 :00 dose, [facility] Medical 05/29/20 at Branch 2045, LICO
Is this order for a patient with suspected or confirmed COVID-19 infection? Yes atorvastati 2019- No [id number] 20mg Take 1 Univers n (LIPITOR) 01-27 tablet by it y of 20 mg 00:00: 00:00 mouth at [place] tablet 00 :00 bedtime. Medical Branch Insulin 2020- No [id number] 8U inject 8 U nivers Glargine 01-27 [...] directed ity of (ACCU-CHEK 00:00: [place] WILLIAM) [place] [address] Medical Branch Blood-Gluco Yes Use as [facility] ers se Meter 4-07 directed ity of (ACCU-CHEK 00:00: [place] WILLIAM) [place] [address] Medical Branch EXFORGE 2020- No TAKE 1 [...] 20:55:00 156 mm[Hg] Univer sity of pressure [place] [facility] Diastolic blood 2020-06-04 20:55:00 85 mm[Hg] Unive rsity of pressure [facility] Respiratory rate 2020-06-04 20:55:00 18 /min Univ ersity of [facility] Oxygen saturation in 2020-06-04 20:55:00 92 /min University of Arterial blood by [facility] Pulse oximetry Branch Heart rate 2020-06-04 20:00:00 67 /min Universi ty of [facility] Body temperature 2020-06-04 20:00:00 36.06 Razia Univ ersity of [facility] Body weight 2020-06-03 06:15:00 65.998 kg Universi ty of [facility] BMI 2020-06-03 06:15:00 24.21 kg/m2 Universi ty of [facility] Body height 2020-05-30 06:15:00 165.1 cm Universi ty of [facility] Systolic blood 2020-06-04 20:55:00 156 mm[Hg] Univer sity of pressure [facility] Diastolic blood 2020-06-04 20:55:00 85 mm[Hg] Unive rsity of pressure [facility] Respiratory rate 2020-06-04 20:55:00 18 /min Univ ersity of [facility] Oxygen saturation in 2020-06-04 20:55:00 92 /min University of Arterial blood by [facility] Pulse oximetry Branch Heart rate 2020-06-04 20:00:00 67 /min Universi ty of [facility] Body temperature 2020-06-04 20:00:00 36.06 Razia Univ ersity of [facility] Body weight 2020-06-03 06:15:00 65.998 kg Universi ty of [facility] BMI 2020-06-03 06:15:00 24.21 kg/m2 Universi ty of [facility] Body height 2020-05-30 06:15:00 165.1 cm Universi ty [facility] Procedures Procedure Date / Time Performing Clinician Source Performed POCT GLUCOSE (AUTOMATED) 2020-06-04 21:56:00 Arben Julien Uni versity [facility] POCT GLUCOSE (AUTOMATED) 2020-06-04 16:48:00 Arben Julien Uni versity of [facility] XR CHEST 1 VW 2020-06-04 13:56:16 Vanessa Shah [facility] POCT GLUCOSE (AUTOMATED) 2020-06-04 12:44:00 Arben Julien Uni versity of [facility] POCT GLUCOSE (AUTOMATED) 2020-06-04 01:32:00 Arben Julien Uni versity of [facility] POCT GLUCOSE (AUTOMATED) 2020-06-03 21:46:00 Arben Julien Uni versity of [facility] Branch POCT GLUCOSE (AUTOMATED) 2020-06-03 16:54:00 Arben Julien Uni versity of [facility] POCT GLUCOSE (AUTOMATED) 2020-06-03 12:50:00 Arben Julien Uni versity of [facility] COMP. METABOLIC PANEL 2020-06-03 11:37:00 Ellen [facility] ([id number]) [facility] CBC WITH DIFF 2020-06-03 11:36:00 Sukhwinder Hughes [facility] POCT GLUCOSE (AUTOMATED) 2020-06-03 01:18:00 Arben Julien Uni versity of [facility] POCT GLUCOSE (AUTOMATED) 2020-06-02 21:22:00 Arben Julien Uni versity of [facility] FL MODIFIED BARIUM 2020-06-02 19:00:00 Rufus Goodwin [facility] POCT GLUCOSE (AUTOMATED) 2020-06-02 16:59:00 Arben Julien Uni versity of [facility] POCT GLUCOSE (AUTOMATED) 2020-06-02 13:26:00 Arben Julien Uni versity of [facility] Branch MAGNESIUM 2020-06-02 10:40:00 Buddy [facility] COMP. METABOLIC PANEL 2020-06-02 10:40:00 Buddy [facility] ([id number]) [facility] CBC WITH DIFF 2020-06-02 10:40:00 Arben Julien [facility] POCT GLUCOSE (AUTOMATED) 2020-06-01 21:51:00 Arben Julien Uni versity of [facility] POCT GLUCOSE (AUTOMATED) 2020-06-01 17:00:[address] [facility] BLOOD CULTURE SCREEN 2020-06-01 15:42:00 Rufus Goodwin [facility] BLOOD CULTURE SCREEN 2020-06-01 15:29:00 Rufus Goodwin [facility] POCT GLUCOSE (AUTOMATED) 2020-06-01 13:18:[address] [facility] MAGNESIUM 2020-06-01 10:14:00 Rufus Goodwin [facility] COMP. METABOLIC PANEL 2020-06-01 10:14:00 Rufus Goodwin [facility] ([id number]) [facility] ACUTE CARE VENOUS BLOOD 2020-06-01 10:14:00 Arben Julien [facility] CBC WITH DIFF 2020-06-01 10:14:00 Wily [facility] N-TERMINAL PRO-BNP 2020-06-01 10:14:00 Wily hilda [facility] POCT GLUCOSE (AUTOMATED) 2020-06-01 00:42:[address] [facility] POCT GLUCOSE (AUTOMATED) 2020-05-31 21:51:[address] [facility] AMMONIA, PLASMA 2020-05-31 17:01:00 Rufus Goodwin [facility] POCT GLUCOSE (AUTOMATED) 2020-05-31 16:59:[address] [facility] URIC ACID 2020-05-31 08:32:00 Wily [facility] MAGNESIUM 2020-05-31 08:32:00 Wily [facility] TROPONIN I 2020-05-31 08:32:00 Wily [facility] COMP. METABOLIC PANEL 2020-05-31 08:32:00 Wily hilda [facility] ([id number]) [facility] CBC WITH DIFF 2020-05-31 08:32:00 Wily [facility] N-TERMINAL PRO-BNP 2020-05-31 08:32:00 Wily hilda [facility] POCT GLUCOSE (AUTOMATED) 2020-05-31 00:32:[address] [facility] POCT GLUCOSE (AUTOMATED) 2020-05-30 20:44:[address] [facility] POCT GLUCOSE (AUTOMATED) 2020-05-30 17:04:[address] [facility] TROPONIN I 2020-05-30 16:25:00 Wily hilda [facility] ECHO ROUTINE W/DOPPLER 2020-05-30 16:08:22 Arben Julien [facility] POCT GLUCOSE (AUTOMATED) 2020-05-30 13:56:[address] [facility] CT THORAX WO CONTRAST 2020-05-30 10:26:42 Arben Julien [facility] SEDIMENTATION RATE 2020-05-30 09:51:00 Wily hilda [facility] CBC WITH DIFF 2020-05-30 09:51:00 Wily [facility] URIC ACID 2020-05-30 08:34:00 Wily [facility] MAGNESIUM 2020-05-30 08:34:00 Wily [facility] CORTISOL AM 2020-05-30 08:34:00 Wily [facility] TROPONIN I 2020-05-30 08:34:00 Wily [facility] COMP. METABOLIC PANEL 2020-05-30 08:34:00 Wily hilda [facility] ([id number]) [facility] IRON PANEL 2020-05-30 08:34:00 Wily [facility] N-TERMINAL PRO-BNP 2020-05-30 08:34:00 Wily hilda [facility] LEGIONELLA URINARY 2020-05-30 08:29:00 Wily hilda [facility] ANTIGEN TST [facility] SODIUM, URINE RANDOM 2020-05-30 08:28:00 Wily hilda [facility] PROTEIN CREAT RATIO 2020-05-30 08:28:00 Wily hilda [facility] URINE RANDOM [facility] PNEUMOCOCCAL ANTIGEN 2020-05-30 08:27:00 Arben Julien [facility] OSMOLALITY URINE 2020-05-30 08:25:00 Wily hilda [facility] UREA NITROGEN, URINE 2020-05-30 08:25:00 Arben Julien [facility] RANDOM [facility] URINE CULTURE 2020-05-30 08:24:00 Arben Julien [facility] OSMOLALITY SERUM 2020-05-30 07:08:00 Wily hilda [facility] VITAMIN B12, LEVEL 2020-05-30 07:08:00 Arben Julien [facility] FOLATE 2020-05-30 07:08:00 Arben Julien [facility] PROTHROMBIN TIME / INR 2020-05-30 07:08:00 Arben Julien [facility] MYCOPLASMA PNEUMONIAE 2020-05-30 07:08:00 Arben Julien [facility] ANTIBODY, IGM [facility] VITAMIN D, 25-OH 2020-05-30 07:08:00 Arben Julien [facility] PROCALCITONIN 2020-05-30 07:08:00 Arben Julien [facility] BLOOD CULTURE SCREEN 2020-05-30 07:07:00 Arben Julien [facility] BLOOD CULTURE WORKUP 2020-05-30 07:07:00 Arben Julien [facility] BLOOD CULTURE WORKUP 2020-05-30 07:07:00 Arben Julien [facility] GRAM POSITIVE BLOOD 2020-05-30 07:07:00 [facility] PROBE-AEROBIC RESPIRATORY PANEL BY PCR 2020-05-30 05:20:[address] [facility] COVID-19 (PCR MOLECULAR 2020-05-30 05:20:00 Arben Julien [facility] TESTING) [facility] EXTERNAL PROVIDER 2020-05-30 05:01:00 Doctor Unassigned, No Univ [facility] RECORDS Name Medical Branch URINALYSIS 2020-05-30 03:39:00 Trice Kraft [facility] XR CHEST 1 VW 2020-05-30 01:45:07 Trice Kraft [facility] CT HEAD WO CONTRAST 2020-05-30 01:34:53 Trice Kraft [facility] EKG-12 LEAD 2020-05-30 01:08:00 Trice Kraft [facility] AC ABG + LACTIC ACID 2020-05-30 01:06:00 Trice Kraft [facility] POCT GLUCOSE(AGE 2020-05-30 01:04:00 Trice Kraft [facility] >30DAYS) [facility] POCT GLUCOSE (AUTOMATED) 2020-05-30 01:03:00 [facility] 2020-05-30 00:59:00 Wily [facility] CREATINE KINASE 2020-05-30 00:59:00 Wily [facility] URIC ACID 2020-05-30 00:59:00 Wily [facility] MAGNESIUM 2020-05-30 00:59:00 Wily [facility] FERRITIN SERUM 2020-05-30 00:59:00 Wily [facility] TROPONIN I 2020-05-30 00:59:00 Trice Kraft [facility] THYROID STIMULATING 2020-05-30 00:59:00 Wily hilda [facility] HORMONE [facility] COMP. METABOLIC PANEL 2020-05-30 00:59:00 Trice Kraft [facility] ([id number]) [facility] LIPID PANEL 2020-05-30 00:59:00 Wily hilda [facility] ([id number])(TOTAL Medical [place] CHOLESTEROL, TRIGLYCERIDES, HDL) CBC WITH DIFF 2020-05-30 00:59:00 Trice Kraft [facility] GLYCOSYLATED HEMOGLOBIN 2020-05-30 00:59:00 Arben Julien [facility] (A1C) [facility] N-TERMINAL PRO-BNP 2020-05-30 00:59:00 Trice Kraft [facility] COVID-19 (ID NOW RAPID 2020-05-30 00:59:00 Trice Kraft [facility] TESTING) Medical Branch EKG-12 LEAD 2020-05-30 00:39:36 Trice Kraft [facility] NOTICE OF PRIVACY 2020-05-29 23:34:11 Doctor Unassigned, No [facility] PRACTICES Name Medical Branch CONSENT/REFUSAL FOR 2020-05-29 23:33:17 Doctor Unassigned, No [facility] DIAGNOSIS AND TREATMENT Name Medical Branch Encounters Start End Encounter Admission Attending Care Care Encounter Source Date/Time Date/Time Type Type Clinicians Facility Department ID 2022-01-27 Inpatient ALONSO HU [facility] Surgery [id number] [facility] 14:58:54 2022-02-08 2022-02-16 Inpatient ALONSO HU [facility] Surgery [id number] [facility] 14:10:00 16:01:00 2022-02-09 2022-02-09 Outpatient [facility] BC [id number] [facility] 00:00:00 23:59:00 [facility] 2022-02-08 2022-02-08 Outpatient BCM BCM [id number] [facility] 14:10:00 23:59:00 [facility] 2022-02-08 2022-02-08 Outpatient [facility] [id number] [facility] 00:00:00 00:00:00 2022-01-20 2022-01-25 Inpatient ER [facility] [id number] [facility] 01:13:00 14:52:00 [facility] Med 2022-01-20 2022-01-20 Outpatient BCM BCM [id number] [facility] 00:00:00 23:59:00 [facility] 2020-06-05 2020-06-05 Transition Mary Kay Cerna [id number] Univers 00:00:00 00:00:00 of Care Cody Stover [id number] ity of [place] [id number] Keri katz [id number] [address] 2020-06-05 2020-06-05 Transition Mary Kay Cerna [id number] 00:00:00 00:00:00 of Care Cody Stover [id number] [place] [id number] 2020-05-29 2020-06-04 [facility] [id number] [facility] 18:50:00 17:57:00 Encounter [id number] [facility] [id number] [place] [id number] Branch 2020-05-29 2020-06-04 [facility] [id number] 18:50:00 17:57:00 Encounter Arben Julien [id number] [place] [id number] [place] [id number] 2020-05-29 2020-05-29 Emergency X [facility] ERT [id number] [facility] 18:28:00 18:28:00 [facility] Results Test Description Test Time Test Comments Results Result [facility] e Comments RAD, CHEST, 1 2022-02-16 while patient is VIEW, NON DEPT 10:25:00 intubated or has chest tubes.Reason for exam:->Status [facility] - post CV MEDICAL CENTERName: SurgeryShould ENMA Banuelos be performed at the : 1940 bedside?->Yes Sex: M FINAL REPORT RAD, CHEST, 1 VIEW, NON DEPT INDICATION: Status post CV Surgery COMPARISON: Prior day's exam FINDINGS: Portable frontal view of the chest. IMPRESSION: Support Lines: Pacer device Lungs and pleura: Platelike atelectasis within the right midlung is unchanged. No significant pneumothorax. Heart and mediastinum: Stable contours. Stable surgical changes. Additional findings: None. Signed: Leilani Pérez Verified Date/Time: 02/16/2022 10:25:02 Reading Location: [facility] Radiology Reading Room PHORUS 2022-02-16 05:32:27 Test Item Value Reference Range Interpretation Comme nts PHOSPHORUS (BEAKER) (test code = 604) 1.9 mg/dL 2.3-4.7 L Lead [employer] Developer ID Junie VACA [id number] 05:32:26 Test Item Value Reference Range Interpretation Comments MAGNESIUM (BEAKER) (test code = 1.6 mg/dL 1.6-2.6 627) Lead [employer]form[employer] Developer ID - NOLA LBASIC METABOLIC [id number] 05:32:25 Test Item Value Reference Range Interpretation [...] S NOT APPLICABLE FOR DIALYSIS PATIEN TS. Lead [employer]form[employer] Developer ID - NOLA LCBC (HEMOGRAM ONLY)2022-02-16 05:05:53 [...] WBC 0-0 (BEAKER) (test code = 413) RAD, CHEST, 1 VIEW, NON [id number] 07:48:00while patient is intubated or has chest tubes.Reason for exam:->Status post CV SurgeryShould thisbe performed at the bedside?->Yes [facility] 1940 Sex: MFINAL REPORT RAD, CHEST, 1 VIEW, NON DEPT INDICATION: Status post CV Surgery COMPARISON: Prior day's exam FINDINGS: Portable frontal view of the chest. IMPRESSION: SupportLines: Pacer device Lungs and pleura: Platelike atelectasis within the right midlung is unchanged. No significant pneumothorax. Heart and mediastinum: Stable contours. Stable surgical changes. Additional findings: None. Signed: Leilani Pérezeport Verified Date/Time: 02/15/2022 07:48:22 [id number] 05:55:44 Test Item Value Reference Range Interpretation Comments MAGNESIUM (BEAKER) (test code = 1.5 mg/dL 1.6-2.6 L 627) Lead [employer]form[employer] Developer ID Junie FAIRCHILD [id number] 05:55:44 Test Item Value Reference Range Interpretation Comments PHOSPHORUS (BEAKER) (test code = 1.7 mg/dL 2.3-4.7 L 604) Lead [employer]form[employer] Developer ID Junie FAIRCHILD WBASIC METABOLIC [id number] 05:55:43 Test Item Value Reference Range Interpretation [...] S NOT APPLICABLE FOR DIALYSIS PATIEN TS. Lead [employer]form[employer] Developer ID Junie FAIRCHILD WCBC (HEMOGRAM ONLY)2022-02-15 05:21:42 Test Item [...] WBC 0-0 (BEAKER) (test code = 413) RAD, CHEST, 1 VIEW, NON [id number] 07:59:00while patient is intubated or has chest tubes.Reason for exam:->Status post CV SurgeryShould thisbe performed at the bedside?->Yes [facility] 1940 Sex: MFINAL REPORT RAD, CHEST, 1 VIEW, NON DEPT INDICATION: Status post CV Surgery COMPARISON: Prior day's exam FINDINGS: Portable frontal view of the chest. IMPRESSION: SupportLines: Interval removal of right chest tube. Pacer device. Lungs and pleura: Platelike atelectasiswithin the right lower lobe. No significant pneumothorax. Heart and mediastinum: Stable contours. Additional findings: None. Signed: Leilani Pérez MDReport Verified Date/Time: 02/14/2022 07:59:04 [id number] 05:25:33 Test Item Value Reference Range Interpretation Comments PHOSPHORUS (BEAKER) (test code = 2.0 mg/dL 2.3-4.7 L 604) Lead [employer]form[employer] Developer ID - GURINDER WBASIC METABOLIC [id number] 05:25:32 Test Item Value Reference Range Interpretation [...] S NOT APPLICABLE FOR DIALYSIS PATIEN TS. Lead [employer]form[employer] Developer ID - GURINDER [id number] 05:25:32 Test Item Value Reference Range Interpretation Comments MAGNESIUM (BEAKER) (test code = 1.4 mg/dL 1.6-2.6 L 627) Lead [employer]form[employer] Developer AKOSUA FAIRCHILD WCBC (HEMOGRAM ONLY)2022-02-14 04:52:12 Test Item [...] (BEAKER) (test code = 413) HEPATIC FUNCTION [id number] 08:20:57 Test Item Value Reference Range Interpretation [...] (test code = 28 U/L 6-55 347) Lead [employer]form[employer] Developer ID - HELEN GARCIAAD, CHEST, 1 VIEW, NON [id number] 07:55:00while patient is intubated or has chest tubes.Reason for exam:->Status post CV SurgeryShould thisbe performed at the bedside?->Yes [facility] 1940 Sex: MFINAL REPORT RAD, CHEST, 1 VIEW, NON DEPT INDICATION: Status post CV Surgery COMPARISON: Prior day's exam FINDINGS: Portable frontal view of the chest. IMPRESSION: SupportLines: Right chest tube. Right-sided sheath tip overlies the junction of the brachiocephalic and theIJ. Pacer device. Lungs and pleura: Retrocardiac atelectasis. No significant pneumothorax. Heart and mediastinum: Stable contours. Stable surgical changes. Additional findings: None. Signed: Leilani Pérez MDReport Verified Date/Time: 02/13/2022 07:55:04 [id number] 07:17:48 Test Item Value Reference Range Interpretation Comments PHOSPHORUS (BEAKER) (test code = 2.2 mg/dL 2.3-4.7 L 604) Lead [employer]form[employer] Developer ID - SHANITA MBASIC METABOLIC [id number] 07:17:47 Test Item Value Reference Range Interpretation [...] S NOT APPLICABLE FOR DIALYSIS PATIEN TS. Lead [employer]form[employer] Developer ID - SHANITA [id number] 07:17:47 Test Item Value Reference Range Interpretation Comments MAGNESIUM (BEAKER) (test code = 1.6 mg/dL 1.6-2.6 627) Lead [employer]form[employer] Developer ID - SHANITA MCBC (HEMOGRAM ONLY)2022-02-13 06:47:08 Test Item Value [...] (BEAKER) (test code = 413) BASIC METABOLIC [id number] 18:14:02 Test Item Value Reference Range Interpretation [...] S NOT APPLICABLE FOR DIALYSIS PATIEN TS. Lead Inform[employer]a Developer ID - BSRAD, CHEST, 1 VIEW, NON [id number] 09:32:00while patient is intubated or has chest tubes.Reason for exam:->Status post CV SurgeryShould thisbe performed at the bedside?->Yes [facility] 1940 Sex: MFINAL REPORT Chest, 1 view, 02/12/2022 5:08 AM. History: Postop. Comparison: 02/11/2022. Discussion: The cardiac silhouette is stable. Bibasilar opacities are unchanged. There is no pneumothorax or pleural effusion. Supporting lines and tubes are unchanged. The soft tissuesand osseous structures are intact. IMPRESSION: No significant change. Signed: Jalen Edwardsepvivi Verified Date/Time: 02/12/2022 09:32:27 Reading Location: [facility] Radiology Reading Room [id number] 07:28:46 Test Item Value Reference Range Interpretation Comments PHOSPHORUS (BEAKER) (test code = 2.8 mg/dL 2.3-4.7 604) Lead [employer]form[employer] Developer ID - DBBASIC METABOLIC [id number] 07:28:45 Test Item Value Reference Range Interpretation [...] S NOT APPLICABLE FOR DIALYSIS PATIEN TS. Lead [employer]form[employer] Developer ID - [id number] 07:28:45 Test Item Value Reference Range Interpretation Comments MAGNESIUM (BEAKER) (test code = 1.5 mg/dL 1.6-2.6 L 627) Lead Inform[employer]a Developer ID - DBCBC (HEMOGRAM ONLY)2022-02-12 07:08:20 Test [...] WBC 0-0 (BEAKER) (test code = 413) RAD, CHEST, 1 VIEW, NON [id number] 07:22:00while patient is intubated or has chest tubes.Reason for exam:->Status post CV SurgeryShould thisbe performed at the bedside?->Yes [facility] 1940 Sex: MFINAL REPORT EXAMINATION: RAD, CHEST, 1 VIEW, NON DEPT INDICATION: Postoperative COMPARISON: Chest radiograph of the prior day FINDINGS: LINES/TUBES: Right IJ Holland-Dilia catheter has been removed with a right IJ sheath remaining in place. Right chest tube and left chest AICD unchanged. LUNGS: Stable lung volumes. Improving right greater than left basilar opacities. PLEURA:No definite pleural effusion. No pneumothorax. MEDIASTINUM: The cardiomediastinal silhouette appears unchanged in size and shape. BONES/SOFT TISSUES:No acute osseous injury. ABDOMEN:No free air under the diaphragm. IMPRESSION: Lines and tubes as above, with interval removal of Holland-Dilia catheter. Slightly improving right greater than left basilar opacities. Signed: Aubree Oteroort Verified Date/Time: 02/11/2022 07:22:59 Reading Location: [facility] Radiology Reading Room [id number] 06:24:12 Test Item Value Reference Range Interpretation Comments MAGNESIUM (BEAKER) (test code = 1.8 mg/dL 1.6-2.6 627) Lead [employer]form[employer] Developer ID - [id number] 06:24:12 Test Item Value Reference Range Interpretation Comments PHOSPHORUS (BEAKER) (test code = 3.3 mg/dL 2.3-4.7 604) Lead [employer]form[employer] Developer ID - BSBASIC METABOLIC [id number] 06:24:11 Test Item Value Reference Range Interpretation [...] S NOT APPLICABLE FOR DIALYSIS PATIEN TS. Lead Inform[employer]a Developer ID - BSCBC (HEMOGRAM ONLY)2022-02-11 06:01:14 Test [...] 0-0 (BEAKER) (test code = 413) POCT-GLUCOSE [id number] 17:35:30 Test Item Value Reference Range Interpretation Comments POC-GLUCOSE METER 157 mg/dL 70-110 H : TESTED A T [facility] 6720 (BEAKER) (test code = [place], 1538) [id number]: Lead Informatica Developer/Techni diaz ID = [id number] for Cesar Torres (CELLAVISION MANUAL DIFF)2022-02-10 13:48:38 [...] CONCENTRATION Decreased (CELLAVISION)(BEAKER) (test code = 3438) Lead Informatica Developer ID - Roseann OverholtUser comments: Slide comments:CBC W/PLT COUNT & AUTO [id number] 13:48:37 Test Item Value Reference Range Interpretation [...] WBC 0-0 (BEAKER) (test code = 413) [id number] 13:31:32 Test Item Value Reference Range Interpretation Comments MAGNESIUM (BEAKER) (test code = 1.9 mg/dL 1.6-2.6 627) Lead Inform[employer]a Developer ID - [id number] 13:31:32 Test Item Value Reference Range Interpretation Comments PHOSPHORUS (BEAKER) (test code = 3.4 mg/dL 2.3-4.7 604) Lead Inform[employer]a Developer ID - ADMINBASIC METABOLIC [id number] 13:31:31 Test Item Value Reference Range Interpretation [...] S NOT APPLICABLE FOR DIALYSIS PATIEN TS. Lead Inform[employer]a Developer ID - ADMINLACTIC ACID, [id number] 13:24:59 Test Item Value Reference Range Interpretation Comments LACTATE BLOOD ARTERIAL (2) 1.3 mmol/L 0.5-2.2 (BEAKER) (test code = 2874) Lead Informatica Developer ID - ADMINBLOOD GAS, [id number] 13:17:20 Test Item Value Reference Range Interpretation [...] (BEAKER) (test code = 1819) 21.0 POCT-GLUCOSE [id number] 12:17:28 Test Item Value Reference Range Interpretation Comments POC-GLUCOSE METER 212 mg/dL 70-110 H : TESTED A T [facility] 6720 (BEAKER) (test code = [place], 1538) [address]: Lead Informatica Developer/Techni diaz ID = [id number] for Po tts, Laly MISCELLANEOUS LAB [id number] 09:24:20 Test Item Value Reference Range Interpretation Comments SCAN RESULT (test code = See scanned report. [id number]) See scanned reportRAD, CHEST, 1 VIEW, NON [id number] 08:18:00Reason for exam:->Status post CV Surgery post op day 0Should this be performed at the bedside?->[facility] 1940 Sex: MFINAL REPORT TECHNIQUE: Frontal view of the chest. INDICATION: Status post CV Surgery post op day 0 COMPARISON:01/20/2022 DISCUSSION:Limited evaluation due to portable technique. Lines and hardware: Endotracheal tube projects 4.5 cm above the sanjana. Right internal jugular pulmonary arterial catheter with tip projecting over the proximal right main pulmonary artery. Left chest wall single lead AICD is stable. Subdiaphragmatic enteric tube. Right apical chest tube.Heart and mediastinum: Stable.Lungs and pleura: Mild interstitial prominence. No lobar consolidation, large layering pleural effusion or pneumothorax.Soft tissues and bones: No acute abnormality. IMPRESSION:Support structures are described above.Mild interstitial prominence. Signed: Ki Oquendo MDReport VerifiedDate/Time: 02/10/2022 08:18:32 Reading Location: [facility] Radiology Reading Room POCT-GLUCOSE [id number] 07:22:09 Test Item Value Reference Range Interpretation Comments POC-GLUCOSE METER 102 mg/dL 70-110 : TESTED A T [facility] 6720 ([employer]) (test code = [employer] [facility], 1538) [address]: Lead Informatica Developer/Techni diaz ID = [id number] for Po tts, Laly POCT-GLUCOSE [id number] 06:34:44 Test Item Value Reference Range Interpretation Comments POC-GLUCOSE METER 85 mg/dL 70-110 : TESTED A T [facility] 6720 (BEAKER) (test code = [employer] [facility], 1538) [address]: Lead Informatica Developer/Techni diaz ID = [id number] for NGUY EN, DUNG RAD, CHEST, 1 VIEW, NON [id number] 06:08:00while patient is intubated or has chest tubes.Reason for exam:->Status post CV SurgeryShould thisbe performed at the bedside?->Yes [facility] 1940 Sex: MFINAL REPORT RAD, CHEST, 1 VIEW, NON DEPT INDICATION: Status post CV Surgery COMPARISON: Prior day's exam FINDINGS: Portable frontal view of the chest. IMPRESSION: SupportLines: ET tube and enteric tube removed. Holland-Dilia catheter tip overlies the right pulmonary artery. Right chest tube is stable.Lungs and pleura: Increased bilateral pleural-parenchymal opacities. No p neumothorax.Heart and mediastinum: Stable contours. Additional findings: None. Signed: Martin Ayala MDReport Verified Date/Time: 02/10/2022 06:08:41 [id number] 04:15:39 Test Item Value Reference Range Interpretation Comments MAGNESIUM (BEAKER) (test code = 2.0 mg/dL 1.6-2.6 627) Lead Informatica Developer ID - SHANITA [id number] 04:15:39 Test Item Value Reference Range Interpretation Comments PHOSPHORUS (BEAKER) (test code = 3.3 mg/dL 2.3-4.7 604) Lead Inform[employer]a Developer ID - SHANITA MBASIC METABOLIC [id number] 04:15:38 Test Item Value Reference Range Interpretation [...] S NOT APPLICABLE FOR DIALYSIS PATIEN TS. Lead Inform[employer]a Developer ID - SHANITA MLACTIC ACID, [id number] 04:05:11 Test Item Value Reference Range Interpretation Comments LACTATE BLOOD ARTERIAL (2) 0.8 mmol/L 0.5-2.2 (BEAKER) (test code = 2874) Lead Informatica Developer ID - SHANITA MCBC (HEMOGRAM ONLY)2022-02-10 04:00:32 [...] 0-0 (BEAKER) (test code = 413) POCT-GLUCOSE [id number] 02:46:41 Test Item Value Reference Range Interpretation Comments POC-GLUCOSE METER 128 mg/dL 70-110 H : TESTED Ishaan T [facility] 6720 (BEAKER) (test code = [place], 1538) [address]: Lead Informatica Developer/Techni diaz ID = [id number] for NG RICA, DUNG POCT-GLUCOSE [id number] 00:38:12 Test Item Value Reference Range Interpretation Comments POC-GLUCOSE METER 138 mg/dL 70-110 H : TESTED A T [facility] 6720 (BEAKER) (test code = [facility], 1538) [address]: Lead Informatica Developer/Techni diaz ID = [id number] for NG RICA, DUNG POCT-GLUCOSE [id number] 23:17:27 Test Item Value Reference Range Interpretation Comments POC-GLUCOSE METER 141 mg/dL 70-110 H : TESTED A T [facility] 6720 (BEAKER) (test code = [facility], 1538) [address]: Lead Informatica Developer/Techni diaz ID = [id number] for NG RICA, DUNG POCT-GLUCOSE [id number] 22:20:14 Test Item Value Reference Range Interpretation Comments POC-GLUCOSE METER 151 mg/dL 70-110 H : TESTED A T [facility] 6720 (BEAKER) (test code = [facility], 1538) [address]: Lead Informatica Developer/Techni diaz ID = [id number] for NG RICA, DUNG LACTIC ACID, [id number] 21:08:39 Test Item Value Reference Range Interpretation Comments LACTATE BLOOD ARTERIAL (2) 1.6 mmol/L 0.5-2.2 (BEAKER) (test code = 2874) Lead Informatica Developer ID - BSBLOOD GAS, [id number] 20:52:38 Test Item Value Reference Range Interpretation [...] (BEAKER) (test code = 1819) 36.0 POCT-GLUCOSE [id number] 20:21:03 Test Item Value Reference Range Interpretation Comments POC-GLUCOSE METER 155 mg/dL 70-110 H : [facility] ([facility]ER[facility] (test code = [facility], 1538) [address]: Lead Informatica Developer/Techni diaz ID = [id number] for NG LALITHA STRAUSS BLOOD GAS, [id number] 18:55:30 Test Item Value Reference Range Interpretation [...] (BEAKER) (test code = 1819) 40.0 GLUCOSE-STAT [id number] 18:55:30 Test Item Value Reference Range Interpretation Comments GLUCOSE RANDOM (BEAKER) (test code 169 mg/dL 70-110 H = 652) POCT-GLUCOSE [id number] 18:02:09 Test Item Value Reference Range Interpretation Comments POC-GLUCOSE METER 157 mg/dL 70-110 H : TESTED A T [facility] 6720 (BEAKER) (test code = [facility], 1538) [address]: Lead Informatica Developer/Techni diaz ID = [id number] for BR CAROLE GAN LACTIC ACID, [id number] 16:37:27 Test Item Value Reference Range Interpretation Comments LACTATE BLOOD 2.0 mmol/L 0.5-2.2 Specimen sligh tly ARTERIAL (2) (BEAKER) hemoly zed (test code = 2874) Lead Informatica Developer ID - BSGLUCOSE-STAT [id number] 16:37:22 Test Item Value Reference Range Interpretation Comments GLUCOSE RANDOM (BEAKER) (test code 169 mg/dL 70-110 H = 652) BLOOD GAS, [id number] 16:37:21 Test Item Value Reference Range Interpretation [...] CONCENTRATION Adequate (CELLAVISION)(BEAKER) (test code = 3438) Lead Informatica Developer ID - [id number] ID - Sangeetha Francisco comments: Slide comments:BASIC METABOLIC [id number] 15:14:24 Test Item Value Reference Range Interpretation [...] S NOT APPLICABLE FOR DIALYSIS PATIEN TS. Lead Informatica Developer ID - [id number] 15:14:07 Test Item Value Reference Range Interpretation Comments MAGNESIUM (BEAKER) (test code = 2.0 mg/dL 1.6-2.6 627) Lead Inform[employer]a Developer ID - [id number] 15:14:07 Test Item Value Reference Range Interpretation Comments PHOSPHORUS (BEAKER) (test code = 2.0 mg/dL 2.3-4.7 L 604) Lead Inform[employer]a Developer ID - [id number] 15:04:40 Test Item Value Reference Range Interpretation Comments PARTIAL THROMBOPLASTIN TIME 35.9 seconds 22.5-36.0 (BEAKER) (test code = 760) PROTHROMBIN TIME/[id number] 15:04:03 Test Item Value Reference Range Interpretation Comments PROTIME (BEAKER) 16.2 seconds 11.9-14.2 H (test code = 759) INR (BEAKER) (test 1.32 See_Comment [Automat ed message] code = 370) The system [employer] generated this result transmitted ref erence range: <=5.90. The reference range was not used to int erpret this result as normal/abnormal . RECOMMENDED COUMADIN/WARFARIN INR THERAPY RANGESSTANDARD DOSE: 2.0 - 3.0 Includes: PROPHYLAXIS forvenous thrombosis, systemic embolization; TREATMENT for venous thrombosis and/or pulmonary embolus.HIGH RISK: Target INR is 2.5-3.5 for patients with mechanical heart valves.LACTIC ACID, [id number] 15:03:00 Test Item Value Reference Range Interpretation Comments LACTATE BLOOD ARTERIAL (2) 1.3 mmol/L 0.5-2.2 (BEAKER) (test code = 2874) Lead Informatica Developer ID - BSCBC W/PLT COUNT & AUTO [id number] 15:00:31 Test Item Value Reference Range Interpretation [...] 0-0 (BEAKER) (test code = 413) CALCIUM, [id number] 14:48:27 Test Item Value Reference Range Interpretation Comments CALCIUM IONIZED (BEAKER) (test 1.04 mmol/L 1.12-1.27 L code = 698) PH, BLOOD (BEAKER) (test code = 7.35 1810) BLOOD GAS, [id number] 14:48:12 Test Item Value Reference Range Interpretation [...] (test code = 1819) 60.0 OXYGEN SATURATION, [id number] 14:47:33 Test Item Value Reference Range Interpretation Comments O2 SATURATION (MEASURED) (BEAKER) 84.4 % (test code = 1455) CBC W/PLT COUNT & AUTO [id number] 14:41:20 Test Item Value Reference Range Interpretation [...] H PERCENT (BEAKER) (test code = 2801) [id number] 13:18:44 Test Item Value Reference Range Interpretation Comments ACTIVATED CLOTTING TIME 136 sec : 74 -137 seconds, (BEAKER) (test code = Michelle ne: TESTED AT 441) [facility] 6720 [facility], [facility] 30: Lead Informatica Developer/Techni diaz ID = [id number] for TORIN ZUNIGA KATINA [id number] 13:18:43 Test Item Value Reference Range Interpretation Comments ACTIVATED CLOTTING TIME 535 sec : 74 -137 seconds, (BEAKER) (test code = Baseli ne: TESTED AT 441) [address], [facility] 30: Lead Informatica Developer/Techni diza ID = [id number] for CA STRO, SONJA [id number] 13:18:42 Test Item Value Reference Range Interpretation Comments ACTIVATED CLOTTING TIME 654 sec : 74 -137 seconds, (BEAKER) (test code = Baseli ne: TESTED AT 441) [address], [facility] 30: Lead Informatica Developer/Techni diaz ID = [id number] for CA STRO, SONJA [id number] 13:18:42 Test Item Value Reference Range Interpretation Comments ACTIVATED CLOTTING TIME 696 sec : 74 -137 seconds, (BEAKER) (test code = Baseli ne: TESTED AT 441) [address], [facility] 30: Lead Informatica Developer/Techni diaz ID = [id number] for CA STRO, SONJA [id number] 13:18:41 Test Item Value Reference Range Interpretation Comments ACTIVATED CLOTTING TIME 696 sec : 74 -137 seconds, (BEAKER) (test code = Baseli ne: TESTED AT 441) [address], [facility] 30: Lead Informatica Developer/Techni diaz ID = [id number] for CA STRO, SONJA [id number] 12:54:23 Test Item Value Reference Range Interpretation Comments FIBRINOGEN LEVEL (BEAKER) (test 435 mg/dl 225-434 H code = 658) PROTHROMBIN TIME/[id number] 12:54:06 Test Item Value Reference Range Interpretation Comments PROTIME (BEAKER) 18.0 seconds 11.9-14.2 H (test code = 759) INR (BEAKER) (test 1.52 See_Comment [Automat ed message] code = 370) The system [employer] generated this result transmitted ref erence range: <=5.90. The reference range was not used to int erpret this result as normal/abnormal . RECOMMENDED COUMADIN/WARFARIN INR THERAPY RANGESSTANDARD DOSE: 2.0 - 3.0 Includes: PROPHYLAXIS forvenous thrombosis, systemic embolization; TREATMENT for venous thrombosis and/or pulmonary embolus.HIGH RISK: Target INR is 2.5-3.5 for patients with mechanical heart valves.PLATELET [id number] 12:40:20 Test Item Value Reference Range Interpretation Comments PLATELET COUNT (BEAKER) (test 179 K/CU MM 150-450 code = 756) Lead Informatica Developer ID - [id number]-STAT [id number] 12:32:34 Test Item Value Reference Range Interpretation Comments GLUCOSE RANDOM (BEAKER) (test code 243 mg/dL 70-110 H = 652) HGB/HCT (H&H) - STAT [id number] 12:32:34 Test Item Value Reference Range Interpretation Comments HEMOGLOBIN (BEAKER) (test code = 9.0 GM/DL 13.0-16.8 L 410) HEMATOCRIT (BEAKER) (test code = 26.0 % 40.0-50.0 L 411) BLOOD GAS, [id number] 12:32:33 Test Item Value Reference Range Interpretation [...] (test code = 1819) 100.0 SODIUM NA-STAT [id number] 12:32:33 Test Item Value Reference Range Interpretation Comments SODIUM (BEAKER) (test code = 381) 131 meq/L 136-145 L POTASSIUM-STAT [id number] 12:32:17 Test Item Value Reference Range Interpretation Comments POTASSIUM (BEAKER) (test code = 3.8 meq/L 3.6-5.5 379) GLUCOSE-STAT [id number] 11:50:14 Test Item Value Reference Range Interpretation Comments GLUCOSE RANDOM (BEAKER) (test code 263 mg/dL 70-110 H = 652) HGB/HCT (H&H) - STAT [id number] 11:50:14 Test Item Value Reference Range Interpretation Comments HEMOGLOBIN (BEAKER) (test code = 7.6 GM/DL 13.0-16.8 L 410) HEMATOCRIT (BEAKER) (test code = 22.0 % 40.0-50.0 L 411) BLOOD GAS, [id number] 11:50:13 Test Item Value Reference Range Interpretation [...] (test code = 1819) 73.0 SODIUM NA-STAT [id number] 11:50:13 Test Item Value Reference Range Interpretation Comments SODIUM (BEAKER) (test code = 381) 129 meq/L 136-145 L POTASSIUM-STAT [id number] 11:50:02 Test Item Value Reference Range Interpretation Comments POTASSIUM (BEAKER) (test code = 4.8 meq/L 3.6-5.5 379) GLUCOSE-STAT [id number] 11:14:52 Test Item Value Reference Range Interpretation Comments GLUCOSE RANDOM (BEAKER) (test code 249 mg/dL 70-110 H = 652) HGB/HCT (H&H) - STAT [id number] 11:14:52 Test Item Value Reference Range Interpretation Comments HEMOGLOBIN (BEAKER) (test code = 7.5 GM/DL 13.0-16.8 L 410) HEMATOCRIT (BEAKER) (test code = 22.0 % 40.0-50.0 L 411) BLOOD GAS, [id number] 11:14:51 Test Item Value Reference Range Interpretation [...] (test code = 1819) 85.0 SODIUM NA-STAT [id number] 11:14:51 Test Item Value Reference Range Interpretation Comments SODIUM (BEAKER) (test code = 381) 129 meq/L 136-145 L POTASSIUM-STAT [id number] 11:13:51 Test Item Value Reference Range Interpretation Comments POTASSIUM (BEAKER) (test code = 5.0 meq/L 3.6-5.5 379) HGB/HCT (H&H) - STAT [id number] 10:55:39 Test Item Value Reference Range Interpretation Comments HEMOGLOBIN (BEAKER) (test code = 7.3 GM/DL 13.0-16.8 L 410) HEMATOCRIT (BEAKER) (test code = 21.0 % 40.0-50.0 L 411) SODIUM NA-STAT [id number] 10:55:38 Test Item Value Reference Range Interpretation Comments SODIUM (BEAKER) (test code = 381) 129 meq/L 136-145 L GLUCOSE-STAT [id number] 10:55:38 Test Item Value Reference Range Interpretation Comments GLUCOSE RANDOM (BEAKER) (test code 183 mg/dL 70-110 H = 652) BLOOD GAS, [id number] 10:55:37 Test Item Value Reference Range Interpretation [...] (BEAKER) (test code = 1819) 100.0 POTASSIUM-STAT [id number] 10:55:23 Test Item Value Reference Range Interpretation Comments POTASSIUM (BEAKER) (test code = 3.8 meq/L 3.6-5.5 379) GLUCOSE-STAT [id number] 09:02:47 Test Item Value Reference Range Interpretation Comments GLUCOSE RANDOM (BEAKER) (test code 174 mg/dL 70-110 H = 652) HGB/HCT (H&H) - STAT [id number] 09:02:47 Test Item Value Reference Range Interpretation Comments HEMOGLOBIN (BEAKER) (test code = 10.7 GM/DL 13.0-16.8 L 410) HEMATOCRIT (BEAKER) (test code = 31.0 % 40.0-50.0 L 411) BLOOD GAS, [id number] 09:02:46 Test Item Value Reference Range Interpretation [...] (test code = 1819) 100.0 SODIUM NA-STAT [id number] 09:02:46 Test Item Value Reference Range Interpretation Comments SODIUM (GAEL) (test code = 381) 132 meq/L 136-145 L POTASSIUM-STAT [id number] 09:01:48 Test Item Value Reference Range Interpretation Comments POTASSIUM (GAEL) (test code = 3.7 meq/L 3.6-5.5 379) HEMOGLOBIN [id number] 08:53:38 Test Item Value Reference Range Interpretation Comments HEMOGLOBIN A1C 7.7 % See_Comment H [Automated m essage] ELECTROPHORESIS (GAEL) The system which (test code = 3811) generated this result transmitted ref erence range: <=5.6%. The reference range was not used to int erpret this result as normal/abnormal . "The A1c is measured using a [facility]-certified method. HbA1c value equal to or greater than 6.5% as thediagnosis cutoff for diabetes. An HbA1c value of 5.7- 6.4% indicates increased risk for diabetes (prediabetes)."Lead Informatica Developer ID - ADMOperator ID - ADMSARS-COV2/RT-PCR ([facility])2022-02-09 07:17:40 Test Item Value Reference Range Interpretation Comments SARS-COV2/RT-PCR Negative Negative The SARS-Co V-2 target (test code = nucleic acids a re not 9054753) detected in thi s specimen. Negative result [...] revoked sooner. Fact Sheet for Healthcare Providers: https://www.[employer]/Documents/Xpert%20Xpress%20SARS%20CoV-2/Fact%20Sheets/302-3802%20SARS-COV -2%20HEALTHCARE%20PROVIDERS%20FACT%20SHEET.pdf Fact Sheet for Healthcare Patients: https://www.[employer]/Documents/Xpert %20Xpress%20SARS%20CoV-2/Fact%20Sheets/302-3801%54JCBR-JWV-1%20PATIENT%20FACT%20 SHEET.pdfURINALYSIS W/ [id number] 18:08:55 Test Item Value Reference Range Interpretation [...] = 1521) SOURCE(BEAKER) (test code = 2795) Lead Inform[employer] Developer ID - [auto]Lead Inform[employer] Developer ID - techBASIC METABOLIC [id number] 16:04:23 Test Item Value Reference Range Interpretation [...] S NOT APPLICABLE FOR DIALYSIS PATIEN TS. Lead [employer]form[employer] Developer ID - [id number] 16:01:10 Test Item Value Reference Range Interpretation Comments PHOSPHORUS (BEAKER) (test code = 2.5 mg/dL 2.3-4.7 604) Lead [employer]form[employer] Developer ID - BSLIPID [id number] 16:01:10 Test Item Value Reference Range Interpretation [...] Borderline 130-159 High 160-189 Very High >=190 Lead [employer]form[employer] Developer ID - [id number] 16:01:09 Test Item Value Reference Range Interpretation Comments MAGNESIUM (BEAKER) (test code = 2.2 mg/dL 1.6-2.6 627) Lead [employer]form[employer] Developer ID - BSCBC W/PLT COUNT & AUTO [id number] 15:48:35 Test Item Value Reference Range Interpretation [...] 0-1 PERCENT (BEAKER) (test code = 2801) [id number] 15:32:17 Test Item Value Reference Range Interpretation Comments PARTIAL THROMBOPLASTIN TIME 38.8 seconds 22.5-36.0 H (BEAKER) (test code = 760) PROTHROMBIN [id number] 15:31:59 Test Item Value Reference Range Interpretation Comments PROTIME (BEAKER) 13.2 seconds 11.9-14.2 (test code = 759) INR (BEAKER) (test 1.02 See_Comment [Automat ed message] code = 370) The system [employer] generated this result transmitted ref erence range: [...] Interpretation Comments SCAN RESULT (test code = 2109696) PHOSPHATIDYLETHANOL, [id number] 11:24:39 Test Item Value Reference Range Interpretation Comments PHOSPHATIDYLETHANOL (PETH) See scanned (test code = 3450021) report See scanned reportPOCT-GLUCOSE [id number] 09:57:09 Test Item Value Reference Range Interpretation Comments POC-GLUCOSE METER 216 mg/dL 70-110 H : TESTED A T [facility] 6720 (BEAKER) (test code = [place], 1538) [address]: Lead Informatica Developer/Techni diaz ID = [id number] for Aleksey munroe (pca2)Pebbles BASIC METABOLIC [id number] 05:33:08 Test Item Value Reference Range Interpretation [...] S NOT APPLICABLE FOR DIALYSIS PATIEN TS. Lead [employer]form[employer] Developer ID - PIAYA LCBC W/PLT COUNT & AUTO [id number] 04:37:52 Test Item Value Reference Range Interpretation [...] PERCENT (BEAKER) (test code = 2801) POCT-GLUCOSE [id number] 16:00:26 Test Item Value Reference Range Interpretation Comments POC-GLUCOSE METER 399 mg/dL 70-110 H : TESTED A T [facility] 6720 (BEAKER) (test code = [place], 1538) [address]: Lead Informatica Developer/Techni diaz ID = [id number] for Maribel Rhoades BASIC METABOLIC [id number] 06:39:45 Test Item Value Reference Range Interpretation [...] S NOT APPLICABLE FOR DIALYSIS PATIEN TS. Lead Inform[employer]a Developer ID - PIAYA LCBC W/PLT COUNT & AUTO [id number] 05:29:49 Test Item Value Reference Range Interpretation [...] 417) IMMATURE GRANULOCYTES-RELATIVE 1 % 0-1 PERCENT (AKER) (test code = 2801) POCT-GLUCOSE [id number] 21:12:45 Test Item Value Reference Range Interpretation Comments POC-GLUCOSE METER 156 mg/dL 70-110 H : Notified RN/MD: ([facility]) (test code = TESTED AT [place] [address]) [facility], [address]: Lead Informatica Developer/Techni diaz ID = [id number] for HAZEL CHUN POCT-GLUCOSE [id number] 19:36:30 Test Item Value Reference Range Interpretation Comments POC-GLUCOSE METER 209 mg/dL 70-110 H : Notified RN/MD: (GAEL) (test code = TESTED AT [place] [address]) [facility], [address]: Lead Informatica Developer/Techni diaz ID = [id number] for HAZEL CHUN POCT-GLUCOSE [id number] 16:34:24 Test Item Value Reference Range Interpretation Comments POC-GLUCOSE METER 414 mg/dL 70-110 HH : Notified RN/MD: TESTED ([facility]) (test code AT [address] = 1538) [facility], [address]: Lead Informatica Developer/Techni diaz ID = [id number] for Miryam brock, Rajashree POCT-GLUCOSE [id number] 12:12:54 Test Item Value Reference Range Interpretation Comments POC-GLUCOSE METER 180 mg/dL 70-110 H : [facility] ([facility] (test code [facility], = 1538) [address]: Lead Informatica Developer/Techni diaz ID = [id number] for Bhag delmy, Rajashree POCT-GLUCOSE [id number] 07:53:32 Test Item Value Reference Range Interpretation Comments POC-GLUCOSE METER 263 mg/dL 70-110 H : TESTED A T [facility] 6720 (BEAKER) (test code [facility], = 1538) [address]: Lead Informatica Developer/Techni diaz ID = [id number] for Anabel Silverio COMPREHENSIVE METABOLIC [id number] 07:29:57 Test Item Value Reference Range Interpretation [...] S NOT APPLICABLE FOR DIALYSIS PATIEN TS. Lead [employer]form[employer]a Developer ID - SHANITA MSpecimen slightly ictericCBC W/PLT COUNT & AUTO [id number] 07:13:58 Test Item Value Reference Range Interpretation [...] PERCENT (BEAKER) (test code = 2801) POCT-GLUCOSE [id number] 21:11:42 Test Item Value Reference Range Interpretation Comments POC-GLUCOSE METER 138 mg/dL 70-110 H : Notified RN/MD: (BEAKER) (test code = TESTED AT [place] [id number]38) [facility], [address]: Lead Informatica Developer/Techni diaz ID = [id number] for HAZEL CHUN POCT-GLUCOSE [id number] 16:54:38 Test Item Value Reference Range Interpretation Comments POC-GLUCOSE METER 327 mg/dL 70-110 H : TESTED A T [facility] 6720 (BEAKER) (test code [facility], = 1538) [address]: Lead Informatica Developer/Techni diaz ID = [id number] for WILS ON, SABIHASTANIE HEPATIC FUNCTION [id number] 08:53:43 Test Item Value Reference Range Interpretation [...] code = 359 U/L 6-55 H 347) Lead Informatica Developer ID - DBSpecimen slightly ictericPOCT-GLUCOSE [id number] 08:02:49 Test Item Value Reference Range Interpretation Comments POC-GLUCOSE METER 262 mg/dL 70-110 H : TESTED A T [facility] 6720 (BEAKER) (test code [facility], = 1538) [address]: Lead Informatica Developer/Techni diaz ID = [id number] for WILS ON, SHASTANIE BASIC METABOLIC [id number] 05:00:34 Test Item Value Reference Range Interpretation [...] S NOT APPLICABLE FOR DIALYSIS PATIEN TS. Lead Inform[employer]a Developer ID - CLAUDIO GSpecimen slightly ictericCBC W/PLT COUNT & AUTO [id number] 04:57:06 Test Item Value Reference Range Interpretation [...] (BEAKER) (test code = 2801) U/S, RENAL, [id number] 00:08:00Reason for exam:->[facility] 1940 Sex: MFINAL [...] [place] MDReport Verified Date/Time: 01/22/2022 00:08:17 POCT-GLUCOSE [id number] 21:45:31 Test Item Value Reference Range Interpretation Comments POC-GLUCOSE METER 258 mg/dL 70-110 H : TESTED A T [facility] 6720 (BEAKER) (test code = [place], 1538) [address]: Lead Informatica Developer/Techni diaz ID = [id number] for STACEY GARRETT CREATININE, RANDOM [id number] 19:56:51 Test Item Value Reference Range Interpretation Comments CREATININE URINE (BEAKER) (test 23.7 mg/dL code = 375) Reference Range: No NormalsOperator ID - DBPROTEIN, RANDOM [id number] 19:56:51 Test Item Value Reference Range Interpretation Comments PROTEIN, URINE (BEAKER) (test code = 62 mg/dL 0-14 H 1569) Lead Informatica Developer ID - DBURINALYSIS W/ [id number] 19:47:32 Test Item Value Reference Range Interpretation [...] = 1521) SOURCE(BEAKER) (test code = 2795) Lead Informatica Developer ID - [auto]Lead Informatica Developer ID - techPOCT-GLUCOSE [id number] 16:23:46 Test Item Value Reference Range Interpretation Comments POC-GLUCOSE METER 270 mg/dL 70-110 H : TESTED A T [facility] 6720 (BEAKER) (test code = [facility], 1538) [address]: Lead Informatica Developer/Techni diaz ID = [id number] for DEONNA GREENE, JENNIFFER KAMAR TITER AND [id number] 11:55:46 Test Item Value Reference Range Interpretation Comments KAMAR TITER (BEAKER) (test code = :40 1541) KAMAR PATTERN (BEAKER) (test code = Homogeneous 1781) ANTI-NUCLEAR ANTIBODY (KAMAR)2022-01-21 11:55:40 Test Item Value Reference Range Interpretation Comments ANTI-NUCLEAR ANTIBODY (KAMAR) (BEAKER) Positive Negative A (test code = 418) Test performed by IFA method.POCT-GLUCOSE [id number] 11:43:49 Test Item Value Reference Range Interpretation Comments POC-GLUCOSE METER 225 mg/dL 70-110 H : TESTED A T [facility] 6720 (BEAKER) (test code = [facility], 1538) [address]: Lead Informatica Developer/Techni diaz ID = [id number] for ELIZABETH DUFFY HEPATIC FUNCTION [id number] 10:49:28 Test Item Value Reference Range Interpretation [...] code = 455 U/L 6-55 H 347) Lead Informatica Developer ID - BSSpecimen moderately ictericPOCT-GLUCOSE [id number] 08:08:00 Test Item Value Reference Range Interpretation Comments POC-GLUCOSE METER 172 mg/dL 70-110 H : TESTED A T [facility] 6720 (BEAKER) (test code = [place], 1538) [address]: Lead Informatica Developer/Techni diaz ID = [id number] for ELIZABETH DUFFY CBC W/PLT COUNT & AUTO [id number] 05:10:56 Test Item Value Reference Range Interpretation [...] (BEAKER) (test code = 2801) BASIC METABOLIC [id number] 05:03:58 Test Item Value Reference Range Interpretation [...] S NOT APPLICABLE FOR DIALYSIS PATIEN TS. Lead Informatica Developer ID - SHANITA MSpecimen slightly [id number] 04:54:21 Test Item Value Reference Range Interpretation Comments MAGNESIUM (BEAKER) (test code = 1.9 mg/dL 1.6-2.6 627) Lead Informatica Developer ID - SHANITA MU/S, ABDOMINAL, WITH [id number] 00:51:00Reason for exam:->elevated lfts [facility] 1940 Sex: [...] abdominal Doppler evaluation. Signed: Anne Marie Ward Verified Date/Time: 01/21/2022 00:51:44 POCT-GLUCOSE [id number] 21:06:06 Test Item Value Reference Range Interpretation Comments POC-GLUCOSE METER 248 mg/dL 70-110 H : TESTED A T [facility] 6720 (BEAKER) (test code = [place], 1538) [address]: Lead Informatica Developer/Techni diaz ID = [id number] for STACEY GARRETT HEPATITIS B CORE ANTIBODY, [id number] 18:10:17 Test Item Value Reference Range Interpretation Comments HEPATITIS B CORE TOTAL ANTIBODY Reactive Nonreactive A (BEAKER) (test code = 497) Lead Informatica Developer ID - BSOperator ID - BSOperator ID - BSHEPATITIS C [id number] 17:50:30 Test Item Value Reference Range Interpretation Comments HEPATITIS C ANTIBODY (BEAKER) Nonreactive Nonreactive (test code = 367) Lead Informatica Developer ID - BSHEPATITIS B SURFACE [id number] 17:50:24 Test Item Value Reference Range Interpretation Comments HEPATITIS B SURFACE ANTIGEN (2) Nonreactive Nonreactive (BEAKER) (test code = 2585) Specimen is considered negative for HBsAg.HEPATITIS B SURFACE [id number] 17:50:24 Test Item Value Reference Range Interpretation Comments HEPATITIS B SURFACE ANTIBODY 830.9 mIU/mL <8.0 H (BEAKER) (test code = 647) Lead Informatica Developer ID - BSHEPATITIS B CORE ANTIBODY, [id number] 17:36:49 Test Item Value Reference Range Interpretation Comments HEPATITIS B CORE IGM ANTIBODY Nonreactive Nonreactive (BEAKER) (test code = 645) Lead Informatica Developer ID - BSHEPATITIS A ANTIBODY, [id number] 17:36:49 Test Item Value Reference Range Interpretation Comments HEPATITIS A IGG ANTIBODY (BEAKER) Nonreactive Nonreactive (test code = 2797) Lead Informatica Developer ID - BSALPHA FETOPROTEIN (AFP), TUMOR [id number] 17:36:48 Test Item Value Reference Range Interpretation Comments ALPHA-FETOPROTEIN (BEAKER) (test 3.7 ng/mL <10.0 code = 1094) Lead Informatica Developer ID - BSIMMUNOGLOBULIN G (IGG)2022-01-20 17:15:56 Test Item Value Reference Range Interpretation Comments IMMUNOGLOBULIN G (IGG) 1081 mg/dL See_Comment [Aut omated message] (BEAKER) (test code = The sy stem which 427) generated this result transmit moshe reference range : 540-1,822. The reference range was not used to interpret this result as normal/abnormal . Lead Informatica Developer ID - BSIRON, TIBC, % SAT. (WITHOUT FERRITIN)2022-01-20 17:15:56 Test Item Value Reference Range Interpretation Comments IRON (BEAKER) (test code = 547) 94.0 ug/dL 40.0-160.0 TOTAL IRON BINDING CAPACITY 245 ug/dL 250-450 L (BEAKER) (test code = 769) IRON % SATURATION (2) (BEAKER) 38 % 20-55 (test code = 2590) Lead Informatica Developer ID - BSPOCT-GLUCOSE [id number] 16:55:44 Test Item Value Reference Range Interpretation Comments POC-GLUCOSE METER 226 mg/dL 70-110 H : TESTED A T [facility] 6720 (BEAKER) (test code = LTAOYA [place] [facility], 1538) [address]: Lead Informatica Developer/Techni diaz ID = [id number] for Lauryn MONIQUE EOAHD-4-[id number] 16:54:50 Test Item Value Reference Range Interpretation Comments ALPHA-1 ANTITRYPSIN (BEAKER) 162.50 mg/dL 90.00-200.00 (test code = 502) Lead Informatica Developer ID - [id number] 16:52:28 Test Item Value Reference Range Interpretation Comments FERRITIN (BEAKER) (test code = 1286.44 ng/mL 5.00-275.00 H 361) Lead Informatica Developer ID - BSPOCT-GLUCOSE [id number] 11:44:46 Test Item Value Reference Range Interpretation Comments POC-GLUCOSE METER 207 mg/dL 70-110 H : TESTED A T [facility] 6720 (BEAKER) (test code [facility], = 1538) [address]: Lead Informatica Developer/Techni diaz ID = [id number] for RED MCKEE HEMOGLOBIN [id number] 10:30:47 Test Item Value Reference Range Interpretation [...] 5.7- 6.4% indicates increased risk for diabetes (prediabetes)."Lead Informatica Developer ID - ALTAGRACIA MCCLURE, 2 [id number] 10:28:00Reason for exam:->concern for heart failureDiagnosis:->Shortness of breath [facility] 1940 Sex: MFINAL [...] the right lower lung. Signed: Meghan Poole [facility] Verified Date/Time: 01/20/2022 10:28:13 Reading Location: [facility] Reading Room POCT- GLUCOSE [id number] 07:47:02 Test Item Value Reference Range Interpretation Comments POC-GLUCOSE METER 173 mg/dL 70-110 H : TESTED A T [facility] 6720 (BEAKER) (test code [facility], = 1538) [address]: Lead Informatica Developer/Techni diaz ID = [id number] for RED MCKEE POCT-GLUCOSE [id number] 03:51:00 Test Item Value Reference Range Interpretation Comments POC-GLUCOSE METER 188 mg/dL 70-110 H : TESTED A T [facility] 6720 (BEAKER) (test code = LATOYA [place] [facility], 1538) [address]: Lead Informatica Developer/Techni diaz ID = [id number] for HAZEL CHUN BASIC METABOLIC [id number] 03:35:28 Test Item Value Reference Range Interpretation [...] S NOT APPLICABLE FOR DIALYSIS PATIEN TS. Lead Informatica Developer ID - SHANITA MSpecimen moderately ictericB-TYPE NATRIURETIC FACTOR (BNP) 2022-01-20 03:16:05 Test Item Value Reference Range Interpretation Comments B-TYPE NATRIURETIC PEPTIDE (BEAKER) 319 pg/mL 0-100 H (test code = 700) Lead Informatica Developer ID - SHANITA MHIGH SENSITIVITY TROPONIN [id number] 03:16:00 Test Item Value Reference Range Interpretation Comments HIGH SENSITIVITY 35 pg/ml See_Comment [Automated message] TROPONIN I (test code = The system which 7240196) generated this result transmitted ref erence range: <=35. Th e reference range was not used to int erpret this result as normal/abnormal . Lead Informatica Developer ID - SHANITA [facility] SUPER[facility] HEAT TREATING STAT High Sensitivity Troponin-I results should be used in conjunction with other diagnostic information such as ECG, clinical observations and information, and patient symptoms to aid in the diagnosis of [place].HEPATIC FUNCTION [id number] 03:14:30 Test Item Value Reference Range Interpretation [...] code = 666 U/L 6-55 H 347) Lead Informatica Developer ID - SHANITA MSpecimen moderately [id number] 03:14:29 Test Item Value Reference Range Interpretation Comments MAGNESIUM (BEAKER) (test code = 1.6 mg/dL 1.6-2.6 627) Lead Informatica Developer ID - SHANITA MLIPID [id number] 03:14:29 Test Item Value Reference Range Interpretation [...] Borderline 130-159 High 160-189 Very High >=190 Lead Informatica Developer AKOSUA DIEHL MSpecimen moderately ictericCBC W/PLT COUNT & AUTO [id number] 02:51:43 Test Item Value Reference Range Interpretation [...] Interpretation Comments POCT GLU (test code = 0179392518) 133 mg/dL 70-110 H Lab Interpretation (test code = Abnormal 95747-6) [facility] 17:13:00 Test Item Value Reference Range Interpretation Comments POCT GLU (test code = 4172938926) 154 mg/dL 70-110 H Lab Interpretation (test code = Abnormal 59607-8) [facility] CHEST 1 [id number] 14:00:56HISTORY: Follow-up of CHF. TECHNIQUE: AP view [...] ifany, residual pulmonary edema seen at this time.[facility], Radiant Results Inft User - [...] ifany, residual pulmonary edema seen at this time.[facility] GLUCOSE (AUTOMATED)2020-06-04 13:19:00 Test Item Value Reference Range Interpretation Comments POCT GLU (test code = 1302827928) 98 mg/dL 70-110 Lab Interpretation (test code = Normal 47913-2) [facility] GLUCOSE (AUTOMATED)2020-06-04 01:35:00 Test Item Value Reference Range Interpretation Comments POCT GLU (test code = 0624274071) 192 mg/dL 70-110 H Lab Interpretation (test code = Abnormal 34859-3) [facility] GLUCOSE (AUTOMATED)2020-06-03 21:51:00 Test Item Value Reference Range Interpretation Comments POCT GLU (test code = 9416358545) 98 mg/dL 70-110 Lab Interpretation (test code = Normal 15328-5) [facility] GLUCOSE (AUTOMATED)2020-06-03 17:28:00 Test Item Value Reference Range Interpretation Comments POCT GLU (test code = 4190904579) 195 mg/dL 70-110 H Lab Interpretation (test code = Abnormal 05670-7) [facility] GLUCOSE (AUTOMATED)2020-06-03 13:43:00 Test Item Value Reference Range Interpretation Comments POCT GLU (test code = 7667831565) 98 mg/dL 70-110 Lab Interpretation (test code = Normal 26640-5) [facility] WITH [id number] 13:10:00 Test Item Value Reference Range Interpretation [...] RDW-SD (test code = 46.4 fL 38.5-51.6 15956-4) RDW-CV (test code = 13.7 % 12.1-15.4 788-0) PLT (test code = See_Comment L [Automated 777-3) message] The sy stem which generated this result transmitted reference range : 150 - 328 10*3/ ?L. The reference r martin was not used to interpret this result as normal/abnormal . MPV (test code = 10.5 fL 9.8-13 69001-1) NRBC/100 WBC (test See_Comment [Automat ed code = 5397207957) message] The system which generated this result transmitted reference range : 0.0 - 10.0 /100 WBCs. The refer ence range was not u sed to interpret th is result as normal/abnormal . NRBC x10^3 (test code <0.01 See_Comment [Auto mated = 6724751549) message] The s ystem which generated this result transmitted reference range : 10*3/?L. The reference range was not used to interpret this result as normal/abnormal . GRAN MAT (NEUT) % 55.9 % (test code = 770-8) IMM GRAN % (test code 0.40 % = 2818910044) LYMPH % (test code = 16.5 % 736-9) MONO % (test code = 12.4 % 5905-5) EOS % (test code = 14.0 % 713-8) BASO % (test code = 0.8 % 706-2) GRAN MAT x10^3(ANC) 1.35 10*3/uL 1.99-6.95 L (test code = 0435853203) IMM GRAN x10^3 (test <0.03 0-0.06 code = 5854978980) LYMPH x10^3 (test code 0.40 10*3/uL 1.09-3.23 L = 731-0) MONO x10^3 (test code 0.30 10*3/uL 0.36-1.02 L = 742-7) EOS x10^3 (test code = 0.34 10*3/uL 0.06-0.53 711-2) BASO x10^3 (test code <0.03 0.01-0.09 = 704-7) Lab Interpretation Abnormal (test code = 69427-3) [facility]. METABOLIC PANEL (77450)2020-06-03 12:46:00 Test Item Value Reference Range Interpretation Comments NA (test code = 136 mmol/L 135-145 7365373009) K (test code = 3.9 mmol/L 3.5-5 4000569548) CL (test code = 100 mmol/L 98-108 1815625783) CO2 TOTAL (test code = 27 mmol/L 23-31 8784584678) AGAP (test code = 2-16 8980450690) BUN (test code = 37 mg/dL 7-23 H 5623501165) GLUCOSE (test code = 87 mg/dL 70-110 8064719091) CREATININE (test code = 1.85 mg/dL 0.6-1.25 H 4234298010) TOTAL BILI (test code = 0.4 mg/dL 0.1-1.0 7722209864) CALCIUM (test code = 9.4 mg/dL 8.6-10.6 3652967050) T PROTEIN (test code = 6.3 g/dL 6.3-8.2 6078987860) ALBUMIN (test code = 3.2 g/dL 3.5-5 L 1248494406) ALK PHOS (test code = 58 U/L 34-122 3003685788) ALTv (test code = 22 U/L 5-50 1742-6) AST(SGOT) (test code = 31 U/L 13-40 2099749195) eGFR Calculation mL/min/1.73m2 (Non-) (test code = 2676687490) eGFR Calculation mL/min/1.73m2 () (test code = 1363644465) EMIR (test code = EMIR) Association of [...] tests). Lab Interpretation Abnormal (test code = 95240-7) [facility]2020[facility]06-03 01:56:00 Test Item Value Reference Range Interpretation Comments POCT GLU (test code = 2163925846) 152 mg/dL 70-110 H Lab Interpretation (test code = Abnormal 03073-5) [facility], (COOKALEXANDER)2020-06-02 23:24:43 Flash laryngeal penetration on swallowing of [...] nectar thick liquid, puree or jewelry solids. [facility], Radiant Results Inft User- 06/02/2020 [...] to the speech pathologist's report for further details.[facility] GLUCOSE (AUTOMATED)2020-06-02 21:24:00 Test Item Value Reference Range Interpretation Comments POCT GLU (test code = 129 mg/dL 70-110 H Notifi ed Provider [id number]) Lab Interpretation (test Abnormal code = 83081-6) [facility] GLUCOSE (AUTOMATED)2020-06-02 17:12:00 Test Item Value Reference Range Interpretation Comments POCT GLU (test code = 159 mg/dL 70-110 H Notifi ed Provider [id number]) Lab Interpretation (test Abnormal code = 52156-9) [facility] WITH [id number] 14:34:00 Test Item Value Reference Range Interpretation [...] RDW-SD (test code = 46.7 fL 38.5-51.6 65089-5) RDW-CV (test code = 13.9 % 12.1-15.4 788-0) PLT (test code = See_Comment [Automated 777-3) message] The sy stem which generated this result transmitted reference range : 150 - 328 10*3/ ?L. The reference r martin was not used to interpret this result as normal/abnormal . MPV (test code = 10.4 fL 9.8-13 83359-7) NRBC/100 WBC (test See_Comment [Automat ed code = 6573426245) message] The system which generated this result transmitted reference range : 0.0 - 10.0 /100 WBCs. The refer ence range was not u sed to interpret th is result as normal/abnormal . NRBC x10^3 (test code <0.01 See_Comment [Auto mated = 1530111719) message] The s ystem which generated this result transmitted reference range : 10*3/?L. The reference range was not used to interpret this result as normal/abnormal . GRAN MAT (NEUT) % 58.9 % (test code = 770-8) IMM GRAN % (test code 0.40 % = 9809310663) LYMPH % (test code = 11.3 % 736-9) MONO % (test code = 10.8 % 5905-5) EOS % (test code = 17.3 % 713-8) BASO % (test code = 1.3 % 706-2) GRAN MAT x10^3(ANC) 1.36 10*3/uL 1.99-6.95 L (test code = 1604219993) IMM GRAN x10^3 (test <0.03 0-0.06 code = 1001781756) LYMPH x10^3 (test code 0.26 10*3/uL 1.09-3.23 L = 731-0) MONO x10^3 (test code 0.25 10*3/uL 0.36-1.02 L = 742-7) EOS x10^3 (test code = 0.40 10*3/uL 0.06-0.53 711-2) BASO x10^3 (test code 0.03 10*3/uL 0.01-0.09 = 704-7) Lab Interpretation Abnormal (test code = 28214-4) [facility] 13:45:00 Test Item Value Reference Range Interpretation Comments POCT GLU (test code = 8685726456) 105 mg/dL 70-110 Lab Interpretation (test code = Normal 82396-7) [facility] [id number] 13:39:00 Test Item Value Reference Range Interpretation Comments Blood Culture Staphylococcus Organism elvia ntified Workup (test epidermidis by DNA probeFor code = 600-7) susceptibility results, refer to culture # - [id number] Gram stain Gram positive cocci Anaerobi c Bottle (test code = 664-3) [facility]COMP[facility] METABOLIC PANEL (51780)2020-06-02 13:10:00 Test Item Value Reference Range Interpretation Comments NA (test code = 133 mmol/L 135-145 L 0077597935) K (test code = 3.4 mmol/L 3.5-5 L 4305553735) CL (test code = 96 mmol/L 98-108 L 3385336074) CO2 TOTAL (test code = 28 mmol/L 23-31 8725613839) AGAP (test code = 2-16 2515742843) BUN (test code = 34 mg/dL 7-23 H 3695606361) GLUCOSE (test code = 135 mg/dL 70-110 H 2605970659) CREATININE (test code = 1.83 mg/dL 0.6-1.25 H 1105991901) TOTAL BILI (test code = 0.4 mg/dL 0.1-1.1 9046872074) CALCIUM (test code = 9.4 mg/dL 8.6-10.6 7640552221) T PROTEIN (test code = 6.0 g/dL 6.3-8.2 L 4408440416) ALBUMIN (test code = 3.1 g/dL 3.5-5 L 1520277742) ALK PHOS (test code = 52 U/L 34-122 9501301968) ALTv (test code = 25 U/L 5-50 1742-6) AST(SGOT) (test code = 31 U/L 13-40 1607158372) eGFR Calculation mL/min/1.73m2 (Non-) (test code = 6127376349) eGFR Calculation mL/min/1.73m2 () (test code = 0015809812) EMIR (test code = EMIR) Association of [...] tests). Lab Interpretation Abnormal (test code = 63811-3) [facility]2020-[facility]-14 13:10:00 Test Item Value Reference Range Interpretation Comments MAGNESIUM (test code = 6428881009) 1.8 mg/dL 1.7-2.4 Lab Interpretation (test code = Normal 91560-3) [facility] NorthwestMYCOPLASMA PNEUMONIAE ANTIBODY, [id number] 11:34:00 Test Item Value Reference Range Interpretation [...] an 12 months post-infection. Performed By: YUMIKO amado[address] [place] [address] [id number] aboratory Director: Julisa Choi MD [Aut omated message] The sy stem which generated this result transmit moshe reference range : <=0.76. The reference r martin was not used to int erpret this result as normal/abnormal . [facility] NorthwestBL[facility] C[facility] [id number] 22:31:00 Test Item Value Reference Range Interpretation Comments Blood Culture-Aerobic Culture positive. No growth AA P revious (test code = 79884-6) See Blood prelim inary Culture Workup verified resu lt for additional was Culture I n information. Progress on 05/30/2020 at 03 19 CDT Blood Culture positive. No growth AA Previous Culture-Anaerobic See Blood preliminar y (test code = 74213-4) Culture Workup veri fied result for additional was Culture I n information. Progress on 05/30/2020 at 03 19 CDT Lab Interpretation Abnormal (test code = 82322-1) [facility] GLUCOSE (AUTOMATED)2020-06-01 21:59:00 Test Item Value Reference Range Interpretation Comments POCT GLU (test code = 7068615779) 101 mg/dL 70-110 Lab Interpretation (test code = Normal 08078-5) [facility] GLUCOSE (AUTOMATED)2020-06-01 17:53:00 Test Item Value Reference Range Interpretation Comments POCT GLU (test code = 2699000124) 184 mg/dL 70-110 H Lab Interpretation (test code = Abnormal 56546-9) [facility] [id number] 17:20:00 Test Item Value Reference Range Interpretation Comments Blood Culture-Aerobic Culture positive. No growth AA P revious (test code = 11737-7) See Blood prelim inary Culture Workup verified resu lt for additional was Culture I n information. Progress on 05/30/2020 at 03 19 CDT Blood Culture positive. No growth AA Previous Culture-Anaerobic See Blood preliminar y (test code = 33562-4) Culture Workup veri fied result for additional was Culture I n information. Progress on 05/30/2020 at 03 19 CDT Lab Interpretation Abnormal (test code = 09305-2) [facility] GLUCOSE (AUTOMATED)2020-06-01 13:22:00 Test Item Value Reference Range Interpretation Comments POCT GLU (test code = 8624514306) 109 mg/dL 70-110 Lab Interpretation (test code = Normal 76630-7) [facility] WITH [id number] 11:12:00 Test Item Value Reference Range Interpretation [...] RDW-SD (test code = 46.0 fL 38.5-51.6 96205-4) RDW-CV (test code = 13.8 % 12.1-15.4 788-0) PLT (test code = See_Comment L [Automated 777-3) message] The sy stem which generated this result transmitted reference range : 150 - 328 10*3/ ?L. The reference r martin was not used to interpret this result as normal/abnormal . MPV (test code = 10.3 fL 9.8-13 66645-1) NRBC/100 WBC (test See_Comment [Automat ed code = 8567514195) message] The system which generated this result transmitted reference range : 0.0 - 10.0 /100 WBCs. The refer ence range was not u sed to interpret th is result as normal/abnormal . NRBC x10^3 (test code <0.01 See_Comment [Auto mated = 8967975461) message] The s ystem which generated this result transmitted reference range : 10*3/?L. The reference range was not used to interpret this result as normal/abnormal . GRAN MAT (NEUT) % 71.9 % (test code = 770-8) IMM GRAN % (test code 0.30 % = 7825712549) LYMPH % (test code = 8.0 % 736-9) MONO % (test code = 10.5 % 5905-5) EOS % (test code = 8.4 % 713-8) BASO % (test code = 0.9 % 706-2) GRAN MAT x10^3(ANC) 2.32 10*3/uL 1.99-6.95 (test code = 9848699664) IMM GRAN x10^3 (test <0.03 0-0.06 code = 4569539169) LYMPH x10^3 (test code 0.26 10*3/uL 1.09-3.23 L = 731-0) MONO x10^3 (test code 0.34 10*3/uL 0.36-1.02 L = 742-7) EOS x10^3 (test code = 0.27 10*3/uL 0.06-0.53 711-2) BASO x10^3 (test code 0.03 10*3/uL 0.01-0.09 = 704-7) Lab Interpretation Abnormal (test code = 11684-0) [facility] NorthwestN-TERMINAL [id number] 11:07:00 Test Item Value Reference Range Interpretation Comments NT-proBNP (test code 80352 pg/mL See_Comment H [Autom ated = 7755355517) message] The system which generated this result transmitted reference range : <=450. The reference range was not used to interpret this result as normal/abnormal . EMIR (test code = EMIR) Biotin has been reported to cause a negative bias, interpret results relative to patient's use of biotin. Lab Interpretation Abnormal (test code = 38294-4) [facility] NorthwestCOM. METABOLIC PANEL (95078)2020-06-01 11:03:00 Test Item Value Reference Range Interpretation Comments NA (test code = 136 mmol/L 135-145 6165927285) K (test code = 3.9 mmol/L 3.5-5 3193979250) CL (test code = 97 mmol/L 98-108 L 1493410957) CO2 TOTAL (test code = 30 mmol/L 23-31 0725993755) AGAP (test code = 2-16 1046796880) BUN (test code = 34 mg/dL 7-23 H 0545933456) GLUCOSE (test code = 112 mg/dL 70-110 H 1730245060) CREATININE (test code = 1.81 mg/dL 0.6-1.25 H 2747161783) TOTAL BILI (test code = 0.5 mg/dL 0.1-1.9 5668285763) CALCIUM (test code = 9.5 mg/dL 8.6-10.6 0833227924) T PROTEIN (test code = 6.2 g/dL 6.3-8.2 L 3064016437) ALBUMIN (test code = 3.2 g/dL 3.5-5 L 1363765644) ALK PHOS (test code = 58 U/L 34-122 3530701074) ALTv (test code = 32 U/L 5-50 1742-6) AST(SGOT) (test code = 38 U/L 13-40 8160884206) eGFR Calculation mL/min/1.73m2 (Non-) (test code = 1352425392) eGFR Calculation mL/min/1.73m2 () (test code = 3233647649) EMIR (test code = EMIR) Association of [...] tests). Lab Interpretation Abnormal (test code = 39987-3) [facility]MAGNESIUM2020-09-13 11:03:00 Test Item Value Reference Range Interpretation Comments MAGNESIUM (test code = 5326751409) 2.0 mg/dL 1.7-2.4 Lab Interpretation (test code = Normal 17186-2) [facility] CARE VENOUS BLOOD [id number] 10:21:00 Test Item Value Reference Range Interpretation Comments PH (test code = 7.32-7.42 0468627215) PCO2 GIFTY (test code = See_Comment [Auto mated message] The 6001670262) system which makr nerated this result transmit moshe reference range : 41 - 51 mmHg. The refer ence range was not used to interpret this result as normal/abnormal . PO2 GIFTY (test code = See_Comment [Autom ated message] The 2100318795) system which makr nerated this result transmit moshe reference range : 25 - 40 mmHg. The refer ence range was not used to interpret this result as normal/abnormal . HCO3 GIFTY (test code = See_Comment [Auto mated message] The 2852417293) system which makr nerated this result transmit moshe reference range : 24 - 28 mEq/L. The refe rence range was not used to interpret this result as normal/abnormal . AC VBE(BEAKER) (test mEq/L code = 3076860140) [facility] GLUCOSE (AUTOMATED)2020-06-01 01:53:00 Test Item Value Reference Range Interpretation Comments POCT GLU (test code = 5982593254) 124 mg/dL 70-110 H Lab Interpretation (test code = Abnormal 17381-4) [facility] GLUCOSE (AUTOMATED)2020-05-31 22:35:00 Test Item Value Reference Range Interpretation Comments POCT GLU (test code = 8319878611) 105 mg/dL 70-110 Lab Interpretation (test code = Normal 61617-8) [facility] GLUCOSE (AUTOMATED)2020-05-31 17:52:00 Test Item Value Reference Range Interpretation Comments POCT GLU (test code = 6877412119) 106 mg/dL 70-110 Lab Interpretation (test code = Normal 31202-7) [facility] NorthwestAMMONIA, [id number] 17:33:00 Test Item Value Reference Range Interpretation Comments AMMONIA (test code = 7793665542) <9 9-33 L Lab Interpretation (test code = Abnormal 97308-1) [facility] NorthwestGRAM POSITIVE BLOOD PATHOGENS DNA [id number] 14:44:00 Test Item Value Reference Range Interpretation Comments Coagulase Negative Positive Negative A Staphylococcus (test code = 35314-5) EMIR (test code = EMIR) Coagulase negative [...] contact the Antimicrobial Stewardship Program with questions.Pager: ?[phone] Testing included eleven identification and three resistance marker targets. Lab Interpretation Abnormal (test code = 37394-7) [facility]2020-05-31 13:09:00 Test Item Value Reference Range Interpretation Comments POCT GLU (test code = 0253925363) 154 mg/dL 70-110 H Lab Interpretation (test code = Abnormal 00035-5) [facility] NorthwestURINE [id number] 12:11:00 Test Item Value Reference Range Interpretation Comments URINE CULTURE (test No aerobic growth (< code = 630-4) 1000 CFU/mL) [facility] NorthwestN-TERMINAL [id number] 11:51:00 Test Item Value Reference Range Interpretation Comments NT-proBNP (test code 59491 pg/mL See_Comment H [Autom ated = 7273506130) message] The system which generated this result transmitted reference range : <=450. The reference range was not used to interpret this result as normal/abnormal . EMIR (test code = EMIR) Biotin has been reported to cause a negative bias, interpret results relative to patient's use of biotin. Lab Interpretation Abnormal (test code = 22284-3) [facility] NorthwestURIC [id number] 11:25:00 Test Item Value Reference Range Interpretation Comments URIC ACID (test code = 1331376095) 9.0 mg/dL 3.6-8 H Lab Interpretation (test code = Abnormal 03205-7) [facility] WITH [id number] 11:02:00 Test Item Value Reference Range Interpretation [...] RDW-SD (test code = 47.7 fL 38.5-51.6 44923-8) RDW-CV (test code = 14.0 % 12.1-15.4 788-0) PLT (test code = See_Comment L [Automated 777-3) message] The sy stem which generated this result transmitted reference range : 150 - 328 10*3/ ?L. The reference r martin was not used to interpret this result as normal/abnormal . MPV (test code = 10.5 fL 9.8-13 65795-3) NRBC/100 WBC (test See_Comment [Automat ed code = 4882840085) message] The system which generated this result transmitted reference range : 0.0 - 10.0 /100 WBCs. The refer ence range was not u sed to interpret th is result as normal/abnormal . NRBC x10^3 (test code <0.01 See_Comment [Auto mated = 9885302721) message] The s ystem which generated this result transmitted reference range : 10*3/?L. The reference range was not used to interpret this result as normal/abnormal . GRAN MAT (NEUT) % 81.0 % (test code = 770-8) IMM GRAN % (test code 0.40 % = 0502330043) LYMPH % (test code = 4.8 % 736-9) MONO % (test code = 11.5 % 5905-5) EOS % (test code = 1.7 % 713-8) BASO % (test code = 0.6 % 706-2) GRAN MAT x10^3(ANC) 4.23 10*3/uL 1.99-6.95 (test code = 2737388852) IMM GRAN x10^3 (test <0.03 0-0.06 code = 0578627354) LYMPH x10^3 (test code 0.25 10*3/uL 1.09-3.23 L = 731-0) MONO x10^3 (test code 0.60 10*3/uL 0.36-1.02 = 742-7) EOS x10^3 (test code = 0.09 10*3/uL 0.06-0.53 711-2) BASO x10^3 (test code 0.03 10*3/uL 0.01-0.09 = 704-7) Lab Interpretation Abnormal (test code = 80656-0) [facility] [id number] 10:45:00 Test Item Value Reference Range Interpretation Comments TROPONIN I (test 0.167 ng/mL See_Comment H [Automated code = 0830891279) message] The system which generated this result [...] ? Lab Interpretation Abnormal (test code = 80293-1) [facility] NorthwestCOMP. METABOLIC PANEL (14661)2020-05-31 10:35:00 Test Item Value Reference Range Interpretation Comments NA (test code = 133 mmol/L 135-145 L 4270676913) K (test code = 3.4 mmol/L 3.5-5 L 0969670296) CL (test code = 95 mmol/L 98-108 L 9733442584) CO2 TOTAL (test code = 29 mmol/L 23-31 8548543643) AGAP (test code = 2-16 7386666037) BUN (test code = 36 mg/dL 7-23 H 8242982005) GLUCOSE (test code = 136 mg/dL 70-110 H 6875015530) CREATININE (test code = 1.71 mg/dL 0.6-1.25 H 7666447075) TOTAL BILI (test code = 0.8 mg/dL 0.1-1.5 9557735980) CALCIUM (test code = 9.4 mg/dL 8.6-10.6 9785578202) T PROTEIN (test code = 6.5 g/dL 6.3-8.2 8555043744) ALBUMIN (test code = 3.4 g/dL 3.5-5 L 5821675522) ALK PHOS (test code = 59 U/L 34-122 6638862998) ALTv (test code = 35 U/L 5-50 1742-6) AST(SGOT) (test code = 42 U/L 13-40 H 6877987990) eGFR Calculation mL/min/1.73m2 (Non-) (test code = 3778128090) eGFR Calculation mL/min/1.73m2 () (test code = 8876356228) EMIR (test code = EMIR) Association of [...] tests). Lab Interpretation Abnormal (test code = 08854-8) [facility]MAGN[facility]IUM2020-09-12 10:35:00 Test Item Value Reference Range Interpretation Comments MAGNESIUM (test code = 0901219567) 1.4 mg/dL 1.7-2.4 L Lab Interpretation (test code = Abnormal 25709-7) [facility] GLUCOSE (AUTOMATED)2020-05-30 21:17:00 Test Item Value Reference Range Interpretation Comments POCT GLU (test code = 2890280473) 105 mg/dL 70-110 Lab Interpretation (test code = Normal 25693-5) [facility] NorthwestPNEUMOCOCCAL [id number] 19:20:00 Test Item Value Reference Range Interpretation Comments S. pneumoniae antigen Positive Negative A (test code = 0700566637) EMIR (test code = EMIR) S. pneumoniae vaccine may give false positive results in urine with this assay in the 48 hours following vaccination. Lab Interpretation (test Abnormal code = 01937-1) [facility] NorthwestLEGIONELLA URINARY ANTIGEN [id number] 19:20:00 Test Item Value Reference Range Interpretation Comments Legionella Urinary Negative Negative Antigen (test code = 4633416377) EMIR (test code = EMIR) Negative for [...] test. Lab Interpretation (test Normal code = 09405-2) [facility] NorthwestCORTISOL [id number] 18:48:00 Test Item Value Reference Range Interpretation Comments SHAYY AM (test code = 23.8 ug/dL 4.5-23 H 2752459872) EMIR (test code = EMIR) Biotin has been reported to cause a positive bias, interpret results relative to patient's use of biotin. Lab Interpretation (test Abnormal code = 16127-4) [facility] GLUCOSE (AUTOMATED)2020-05-30 17:17:00 Test Item Value Reference Range Interpretation Comments POCT GLU (test code = 4736714946) 117 mg/dL 70-110 H Lab Interpretation (test code = Abnormal 20420-0) [facility] NorthwestTROPONIN [id number] 17:14:00 Test Item Value Reference Range Interpretation Comments TROPONIN I (test 0.222 ng/mL See_Comment H [Automated code = 3681135123) message] The system which generated this result [...] ? Lab Interpretation Abnormal (test code = 46681-4) [facility] NorthwestOSMOLALITY [id number] 16:53:00 Test Item Value Reference Range Interpretation Comments OSMO U (test code = See_Comment [Automa moshe message] 1992467676) The system [employer] generated this result transmitted ref erence range: 50-1,100 mOsm/kg. The re ference range was not u sed to interpret this result as normal/abnor mal. Lab Interpretation (test Normal code = 76389-0) [facility] NorthwestVITAMIN D, [id number] 16:43:00 Test Item Value Reference Range Interpretation Comments VIT D 25OH (test code = 29 ng/mL 25-80 36719-1) EMIR (test code = EMIR) Deficiency: <20 ng/mLInsufficiency : 20-24 ng/mLOptimal: 25-80 ng/mL Lab Interpretation (test Normal code = 79841-0) [facility] NorthwestUREA NITROGEN, URINE [id number] 15:44:00 Test Item Value Reference Range Interpretation Comments UREA N UR (test code = 6258287339) 114 mg/dL [facility] NorthwestCT THORAX WO [id number] 15:23:12 1. ?Pulmonary edema with moderate volume [...] sagittal MPR images were generated and reviewed.(Display egfwr-ua-tfoo = 35 cm) FINDINGS: Lower neck/thyroid: Unremarkable. [...] sagittal MPR images were generated and reviewed.(Display metfj-ej-tcab = 35 cm)FINDINGS:Lower neck/thyroid: Unremarkable.Lungs: Centrilobular septal [...] reviewed this study and agree with theabove report.[facility] 2020-05-30 14:53:00 Test Item Value Reference Range Interpretation Comments POCT GLU (test code = 8982045809) 100 mg/dL 70-110 Lab Interpretation (test code = Normal 44662-0) [facility] NorthwestVITAMIN B12, [id number] 13:07:00 Test Item Value Reference Range Interpretation Comments VIT B12 (test code = 412 pg/mL 240-930 8862449835) EMIR (test code = EMIR) Biotin has been reported to cause a positive bias, interpret results relative to patient's use of biotin. Lab Interpretation (test Normal code = 28059-4) [facility] NorthwestFOLATE2020-09-11 13:07:00 Test Item Value Reference Range Interpretation Comments FOLATE SER (test code = 8.4 ng/mL 3-20 Biot in has been 7343820306) reported to cau se a positive bias, interpret resul ts relative to patient's use o f biotin. Lab Interpretation (test Normal code = 89488-4) [facility] NorthwestCORONAVIRUS COVID-19 [id number] 12:49:00 Test Item Value Reference Range Interpretation Comments SARS-CoV-2 PCR (test Not Detected Not Detected code = 02504-4) EMIR (test code = EMIR) NetIQ Xpert ?Xpress SARS-CoV-2 Assay is a rapid, real-time RT-PCR test intended for the qualitative detection of nucleic acid from the SARS-CoV-2 in nasopharyngeal ([employer]) specimens. It is used under Emergency Use [...] indicated. Lab Interpretation Normal (test code = 41218-8) [facility] NorthwestRESPIRATORY PANEL BY [id number] 12:44:00 Test Item Value Reference Range Interpretation Comments Adenovirus (test code = Negative Negative 94481-4) Coronavirus HKU1 (test Negative Negative code = 90711-4) Coronavirus NL63 (test Negative Negative code = 47251-0) Coronavirus 229E (test Negative Negative code = 05634-0) Coronavirus OC43 (test Negative Negative code = 32779-6) Human Metapneumovirus Negative Negative (test code = 74112-7) Human Negative Negative Rhinovirus/Enterovirus (test code = 49455-6) Influenza A (test code = Negative Negative 77782-2) Influenza B (test code = Negative Negative 98122-2) Parainfluenza Virus 1 Negative Negative (test code = 63473-7) Parainfluenza Virus 2 Negative Negative (test code = 33193-8) Parainfluenza Virus 3 Negative Negative (test code = 05046-2) Parainfluenza Virus 4 Negative Negative (test code = 38457-0) Respiratory Syncytial Negative Negative Virus (test code = 76305-0) Bordetella parapertussis Negative Negative (test code = 55952-8) Bordetella pertussis Negative Negative (test code = 97136-5) Chlamydia pneumoniae Negative Negative (test code = 53472-6) Mycoplasma pneumoniae Negative Negative (test code = 65016-2) EMIR (test code = EMIR) Negative:A negative result does not rule-out infection. ?This assay does not test for all potential infectious agents. ? Positive:A positive test result does not necessarily indicate the presence of viable organism. ? Lab Interpretation (test Normal code = 60526-9) [facility] NorthwestPROCALCITONIN2020-09-11 12:14:00 Test Item Value Reference Range Interpretation Comments Procalcitonin (test 0.06 ng/mL <0.07 code = 4249110927) EMIR (test code = EMIR) INTERPRETATION OF [...] lung abscess/empyema. For further information please refer to:[email or web address] Lab Interpretation Normal (test code = 43508-9) [facility] NorthwestOSMOLALITY [id number] 11:49:00 Test Item Value Reference Range Interpretation Comments OSMOLALITY (test code = See_Comment [Au tomated message] 4078516213) The system [employer] generated this result transmitted ref erence range: 278 - 30 5 mOsm/kg. The re ference range was not u sed to interpret this result as normal/abnor mal. Lab Interpretation (test Normal code = 44977-0) [facility] NorthwestN-TERMINAL [id number] 11:19:00 Test Item Value Reference Range Interpretation Comments NT-proBNP (test code 08840 pg/mL See_Comment H [Autom ated = 6063910054) message] The system which generated this result transmitted reference range : <=450. The reference range was not used to interpret this result as normal/abnormal . EMIR (test code = EMIR) Biotin has been reported to cause a negative bias, interpret results relative to patient's use of biotin. Lab Interpretation Abnormal (test code = 61794-8) [facility] NorthwestSEDIMENTATION [id number] 11:01:00 Test Item Value Reference Range Interpretation Comments ESR (test code = See_Comment H [Automated message] 9719824585) The system [employer] generated this result transmitted ref erence range: 0 - 10 m m/HR. The reference r martin was not used to interpret this result as normal/abnor mal. Lab Interpretation (test Abnormal code = 29924-4) [facility] NorthwestTROPONIN [id number] 10:57:00 Test Item Value Reference Range Interpretation Comments TROPONIN I (test 0.233 ng/mL See_Comment H [Automated code = 9868178765) message] The system which generated this result [...] ? Lab Interpretation Abnormal (test code = 70890-0) [facility] NorthwestIRO [id number] 10:53:00 Test Item Value Reference Range Interpretation Comments IRON (test code = 0667658661) 37 ug/dL 50-160 L TIBC (test code = 8380371588) 259 ug/dL 250-410 % FE SAT (test code = 6911228897) 14 % 20-50 L Lab Interpretation (test code = Abnormal 73598-6) [facility]. METABOLIC PANEL (36958)2020-05-30 10:44:00 Test Item Value Reference Range Interpretation Comments NA (test code = 135 mmol/L 135-145 5963530127) K (test code = 4.3 mmol/L 3.5-5 3465919684) CL (test code = 98 mmol/L 98-108 5753431638) CO2 TOTAL (test code = 26 mmol/L 23-31 2473867369) AGAP (test code = 2-16 2657234273) BUN (test code = 29 mg/dL 7-23 H 0620179324) GLUCOSE (test code = 127 mg/dL 70-110 H 8384486381) CREATININE (test code = 1.38 mg/dL 0.6-1.25 H 4897943339) TOTAL BILI (test code = 0.9 mg/dL 0.1-1.5 8548716073) CALCIUM (test code = 9.4 mg/dL 8.6-10.6 6510222646) T PROTEIN (test code = 6.6 g/dL 6.3-8.2 5312002099) ALBUMIN (test code = 3.7 g/dL 3.5-5 1709551384) ALK PHOS (test code = 65 U/L 34-122 9206676492) ALTv (test code = 28 U/L 5-50 1742-6) AST(SGOT) (test code = 42 U/L 13-40 H 4210000229) eGFR Calculation mL/min/1.73m2 (Non-) (test code = 6640445186) eGFR Calculation mL/min/1.73m2 () (test code = 6629628859) EMIR (test code = EMIR) Association of [...] tests). Lab Interpretation Abnormal (test code = 83084-2) [facility] NorthwestMAGNESIUM2020-09-11 10:44:00 Test Item Value Reference Range Interpretation Comments MAGNESIUM (test code = 6519009278) 1.4 mg/dL 1.7-2.4 L Lab Interpretation (test code = Abnormal 81940-8) [facility] NorthwestURIC [id number] 10:44:00 Test Item Value Reference Range Interpretation Comments URIC ACID (test code = 4817863448) 7.8 mg/dL 3.6-8 Lab Interpretation (test code = Normal 06146-0) [facility] NorthwestPROTEIN CREAT RATIO URINE [id number] 10:29:00 Test Item Value Reference Range Interpretation Comments T. PROT U (test code = 104 mg/dL 2888-6) CREAT U (test code = 14.4 mg/dL 5354325807) Protein/Creatinine Ratio 0.0-2.0 H Urine (test code = 7679018926) EMIR (test code = EMIR) Random Urine Total Protein Reference Ranges Random Specimen: ? Less than 10 mg/dLFirst Morning Specimen: ? ?Less than 20 mg/dL ? Lab Interpretation (test Abnormal code = 83748-8) [facility] NorthwestCB WITH [id number] 10:28:00 Test Item Value Reference Range Interpretation Comments WBC (test code = See_Comment [Automated 6390-2) message] The sy stem which generated this [...] RDW-SD (test code = 47.6 fL 38.5-51.6 25833-8) RDW-CV (test code = 14.2 % 12.1-15.4 788-0) PLT (test code = See_Comment L [Automated 777-3) message] The sy stem which generated this result transmitted reference range : 150 - 328 10*3/ ?L. The reference r martin was not used to interpret this result as normal/abnormal . MPV (test code = 10.5 fL 9.8-13 52200-5) NRBC/100 WBC (test See_Comment [Automat ed code = 5461823362) message] The system which generated this result transmitted reference range : 0.0 - 10.0 /100 WBCs. The refer ence range was not u sed to interpret th is result as normal/abnormal . NRBC x10^3 (test code <0.01 See_Comment [Auto mated = 3238519167) message] The s ystem which generated this result transmitted reference range : 10*3/?L. The reference range was not used to interpret this result as normal/abnormal . GRAN MAT (NEUT) % 83.1 % (test code = 770-8) IMM GRAN % (test code 0.40 % = 3181884594) LYMPH % (test code = 3.7 % 736-9) MONO % (test code = 11.8 % 5905-5) EOS % (test code = 0.4 % 713-8) BASO % (test code = 0.6 % 706-2) GRAN MAT x10^3(ANC) 4.52 10*3/uL 1.99-6.95 (test code = 2433756379) IMM GRAN x10^3 (test <0.03 0-0.06 code = 9914705344) LYMPH x10^3 (test code 0.20 10*3/uL 1.09-3.23 L = 731-0) MONO x10^3 (test code 0.64 10*3/uL 0.36-1.02 = 742-7) EOS x10^3 (test code = <0.03 0.06-0.53 L 711-2) BASO x10^3 (test code 0.03 10*3/uL 0.01-0.09 = 704-7) Lab Interpretation Abnormal (test code = 07268-2) [facility] NorthwestSODIUM, URINE [id number] 10:25:00 Test Item Value Reference Range Interpretation Comments NA URINE (test code = 9391213933) 123 mmol/L [facility] NorthwestPROTHROMBIN TIME / [id number] 08:09:00 Test Item Value Reference Range Interpretation Comments PROTIME PATIENT (test See_Comment [Auto mated message] code = 5964-2) The system [employer] generated this result transmitted ref erence range: 12.0 - 1 4.7 Seconds. The re ference range was not u sed to interpret this result as normal/abnor mal. INR (test code = 6301-6) Nor mal INR <1.1; Warfarin Therap eutic range 2.0 to 3. 0 or 2.5 to 3.5, dep ending upon the indica tions. Lab Interpretation (test Normal code = 26173-0) [facility] NorthwestGLYCOSYLATED HEMOGLOBIN (A1C)2020-05-30 07:33:00 Test Item Value Reference Range Interpretation Comments HGB A1C (test code = 5.4 % 4-6 4548-4) EMIR (test code = EMIR) %A1C (NGSP) Interpretation (ADA)4.8-5.6 ? ? Normal or (Non-Diabetic Range)5.7-6.4 ? ? Increased Risk (Pre-Diabetic)>6.5 ?Diabetes Indicated Lab Interpretation Normal (test code = 43366-9) [facility] NorthwestLIPID PANEL (30843)(TOTAL CHOLESTEROL, TRIGLYCERIDES, HDL)2020-05-30 07:20:00 Test Item Value Reference Range Interpretation Comments CHOL (test code = 174 mg/dL 120-200 3594902958) HDL (test code = 37 mg/dL >40 L 5145043062) HDLC RATIO (test code = See_Comment [Au tomated message] 9494615135) The system [employer] generated this result transmit moshe reference range : <=5.0. The refe rence range was not u sed to interpret th is result as normal/abnormal . TRIG (test code = 85 mg/dL 30-170 7115772476) LDL CHOL (test code = 120 mg/dL See_Comment [Auto mated message] 48356-8) The system [employer] generated this result transmit moshe reference range : <=160. The refe rence range was not u sed to interpret th is result as normal/abnormal . VLDL (test code = 17 mg/dL 5-60 9850103838) Lab Interpretation (test Abnormal code = 63416-9) [facility] NorthwestCREATINE [id number] 07:19:00 Test Item Value Reference Range Interpretation Comments CK (test code = 8858601106) 88 U/L 33-194 Lab Interpretation (test code = Normal 89266-3) [facility] NorthwestURIC [id number] 07:19:00 Test Item Value Reference Range Interpretation Comments URIC ACID (test code = 4049462339) 7.9 mg/dL 3.6-8 Lab Interpretation (test code = Normal 28357-3) [facility] NorthwestFERRITIN [id number] 06:48:00 Test Item Value Reference Range Interpretation Comments FERRITIN (test code = 73.2 ng/mL 18-464 9535600120) EMIR (test code = EMIR) Biotin has been reported to cause a negative bias, interpret results relative to patient's use of biotin. Lab Interpretation (test Normal code = 02087-4) [facility] NorthwestTHYROID STIMULATING [id number] 06:46:00 Test Item Value Reference Range Interpretation Comments TSH (test code = See_Comment [Automated message] 5815880337) The system [employer] generated this result transmitted ref erence range: 0.45 - 4 .70 mIU/L. The refe rence range was not u sed to interpret this result as normal/abnor mal. Lab Interpretation (test Normal code = 14577-5) [facility] NorthwestMAGNESIUM2020-09-11 06:19:00 Test Item Value Reference Range Interpretation Comments MAGNESIUM (test code = 7623159888) 1.6 mg/dL 1.7-2.4 L Lab Interpretation (test code = Abnormal 41653-5) [facility] NorthwestPHOSPHORUS2020-09-11 06:19:00 Test Item Value Reference Range Interpretation Comments PHOSPHORUS (test code = 9875881311) 2.9 mg/dL 2.5-5 Lab Interpretation (test code = Normal 30069-3) [facility] NorthwestURINALYSIS2020-09-11 04:26:00 Test Item Value Reference Range Interpretation Comments APPEARANCE (test code = Clear Clear 7549071624) COLOR (test code = Yellow Yellow 0044925660) PH (test code = 4.8-8.0 3717074195) SP GRAVITY (test code = 1.003-1.030 7369303268) GLU U QUAL (test code = Normal Normal 9647110694) BLOOD (test code = 1+ Negative A 2740146924) KETONES (test code = Negative Negative 8297159495) PROTEIN (test code = 500 mg/dL Negative A 2887-8) UROBILIN (test code = Normal Normal 2387279160) BILIRUBIN (test code = Negative Negative 3586134987) NITRITE (test code = Negative Negative 8722372818) LEUK MARLENA (test code = Negative Negative 9647838200) RBC/HPF (test code = See_Comment H [Autom ated message] 3219239206) The system [employer] generated this result transmit moshe reference range : 0 - 3 HPF. The refe rence range was not u sed to interpret th is result as normal/abnormal . WBC/HPF (test code = See_Comment [Autom ated message] 6890155499) The system [employer] generated this result transmit moshe reference range : 0 - 5 HPF. The refe rence range was not u sed to interpret th is result as normal/abnormal . BACTERIA (test code = Few Negative A 4905797742) MUCOUS (test code = Slight Negative LPF A 0607309096) HYAL CAST (test code = See_Comment H [Aut omated message] 0287242850) The system [employer] generated this result transmit moshe reference range : <=2 LPF. The refere nce range was not u sed to interpret th is result as normal/abnormal . GRAN CASTS (test code = See_Comment H [Au tomated message] 9329564546) The system [employer] generated this result transmit moshe reference range : <=1 LPF. The refere nce range was not u sed to interpret th is result as normal/abnormal . Lab Interpretation (test Abnormal code = 76795-2) [facility] NorthwestXR CHEST 1 [id number] 03:33:16 Multifocal interstitial and airspace opacities are concerning forbronchopneumonia. These findings can also be seen with atypical infectiousprocess, including COVID-19 pneumonia. Disclaimer: Generally,the findings on chest imaging in COVID-19 are notspecific, and overlap with other infections, including influenza, H1N1,SARS and MERS.According to the Centers for Disease Control (CDC) and recent statement ofthe [employer] [employer], viral testing remains the [...] Disease Control (CDC) and recent statement ofthe [place] [employer], viral testing remains the only specificmethod of diagnosis. Confirmation with the viral test is required, even ifradiologic findings are suggestive of COVID-[address]Preliminary Report Dictated by Resident: Darvin Duarte, Ming Lara MD., have reviewed this study and agree with the abovereport.[facility] NorthwestCOVID-19 (ID NOW RAPID TESTING)2020-05-30 01:54:00 Test Item Value Reference Range Interpretation Comments SARS-CoV-2 Rapid ID NOW Not Detected Not Detected (test code = 58384-4) EMIR (test code = EMIR) ID NOW COVID-19 Assay is an isothermal nucleic acid amplification test intended for the qualitative detection of nucleic acid from SARS-CoV-2 viral RNA in nasopharyngeal ([employer]) specimens. It is used under Emergency Use [...] indicated. Lab Interpretation Normal (test code = 32391-1) [facility] NorthwestMARISN [id number] 01:52:00 Test Item Value Reference Range Interpretation Comments TROPONIN I (test 0.148 ng/mL See_Comment H [Automated code = 1363529740) message] The system which generated this result [...] ? Lab Interpretation Abnormal (test code = 14303-7) [facility] NorthwestN-TERMINAL [id number] 01:49:00 Test Item Value Reference Range Interpretation Comments NT-proBNP (test code 47754 pg/mL See_Comment H [Autom ated = 4621715973) message] The system which generated this result transmitted reference range : <=450. The reference range was not used to interpret this result as normal/abnormal . EMIR (test code = EMIR) Biotin has been reported to cause a negative bias, interpret results relative to patient's use of biotin. Lab Interpretation Abnormal (test code = 46483-3) [facility]. METABOLIC PANEL (70966)2020-05-30 01:41:00 Test Item Value Reference Range Interpretation Comments NA (test code = 135 mmol/L 135-145 8330614573) K (test code = 4.0 mmol/L 3.5-5 5267818232) CL (test code = 98 mmol/L 98-108 9348824914) CO2 TOTAL (test code = 27 mmol/L 23-31 3751485538) AGAP (test code = 2-16 3249609598) BUN (test code = 27 mg/dL 7-23 H 6090367330) GLUCOSE (test code = 143 mg/dL 70-110 H 0369574384) CREATININE (test code = 1.51 mg/dL 0.6-1.25 H 1978465826) TOTAL BILI (test code = 0.6 mg/dL 0.1-1.0 5071339993) CALCIUM (test code = 9.5 mg/dL 8.6-10.6 8563895083) T PROTEIN (test code = 6.9 g/dL 6.3-8.2 5179217955) ALBUMIN (test code = 3.9 g/dL 3.5-5 5122931168) ALK PHOS (test code = 78 U/L 34-122 8478675547) ALTv (test code = 29 U/L 5-50 1742-6) AST(SGOT) (test code = 37 U/L 13-40 3662415513) eGFR Calculation mL/min/1.73m2 (Non-) (test code = 1996652684) eGFR Calculation mL/min/1.73m2 () (test code = 3091094984) EMIR (test code = EMIR) Association of [...] tests). Lab Interpretation Abnormal (test code = 65317-1) [facility] HEAD WO [id number] 01:40:13 No acute intracranial hemorrhage or mass [...] ethmoid aircell.IMPRESSIONNo acute intracranial hemorrhage or mass effect.[facility] GLUCOSE (AUTOMATED)2020-05-30 01:23:00 Test Item Value Reference Range Interpretation Comments POCT GLU (test code = 6807550790) 130 mg/dL 70-110 H Lab Interpretation (test code = Abnormal 76799-9) [facility] WITH [id number] 01:22:00 Test Item Value Reference Range Interpretation [...] RDW-SD (test code = 46.8 fL 38.5-51.6 79951-0) RDW-CV (test code = 13.9 % 12.1-15.4 788-0) PLT (test code = See_Comment [Automated 777-3) message] The sy stem which generated this result transmitted reference range : 150 - 328 10*3/ ?L. The reference r martin was not used to interpret this result as normal/abnormal . MPV (test code = 9.9 fL 9.8-13 96189-8) NRBC/100 WBC (test See_Comment [Automat ed code = 8980408708) message] The system which generated this result transmitted reference range : 0.0 - 10.0 /100 WBCs. The refer ence range was not u sed to interpret th is result as normal/abnormal . NRBC x10^3 (test code <0.01 See_Comment [Auto mated = 5061050467) message] The s ystem which generated this result transmitted reference range : 10*3/?L. The reference range was not used to interpret this result as normal/abnormal . GRAN MAT (NEUT) % 82.3 % (test code = 770-8) IMM GRAN % (test code 0.50 % = 6153051264) LYMPH % (test code = 5.5 % 736-9) MONO % (test code = 10.6 % 5905-5) EOS % (test code = 0.6 % 713-8) BASO % (test code = 0.5 % 706-2) GRAN MAT x10^3(ANC) 5.23 10*3/uL 1.99-6.95 (test code = 5792105368) IMM GRAN x10^3 (test 0.03 10*3/uL 0-0.06 code = 5890763474) LYMPH x10^3 (test code 0.35 10*3/uL 1.09-3.23 L = 731-0) MONO x10^3 (test code 0.67 10*3/uL 0.36-1.02 = 742-7) EOS x10^3 (test code = 0.04 10*3/uL 0.06-0.53 L 711-2) BASO x10^3 (test code 0.03 10*3/uL 0.01-0.09 = 704-7) Lab Interpretation Abnormal (test code = 78544-5) [facility] NorthwestAC ABG + LACTIC [id number] 01:14:00 Test Item Value Reference Range Interpretation Comments PH (test code = 2) 7.35-7.45 PCO2 (test code = See_Comment [Automat ed 5186540205) message] The sy stem which generated this result transmitted reference range : 35 - 45 mmHg. The reference range was not used to interpret this result as normal/abnormal . PO2 (test code = See_Comment H [Automated 9843676186) message] The sy stem which generated this result transmitted reference range : 80 - 100 mmHg. The reference range was not used to interpret this result as normal/abnormal . HCO3 (test code = See_Comment [Automate d 7639394568) message] The sy stem which generated this result transmitted reference range : 22 - 26 mEq/L. The reference range was not used to interpret this result as normal/abnormal . BE (test code = See_Comment [Automated 7282909523) message] The sy stem which generated this result transmitted reference range : -3.0 - 3.0 mEq/ L. The reference r martin was not used to interpret this result as normal/abnormal . LACTIC ACID (test code 1.10 mmol/L = 9636462338) Lab Interpretation Abnormal (test code = 30375-3) [facility] NorthwestPO[facility]SE(AGE >30DAYS)2020-05-30 01:04:00 Test Item Value Reference Range Interpretation Comments POCT Glu (age>30days) (test code = 130 mg/dL 70-110 A 3342) Lab Interpretation (test code = Abnormal 48564-7) [facility]
== END 2022-03-28 13:46 | disposition home or self-care (01) | DRG 291 ==
LOC: ER 23:59 → ERHOLD 03-26 02:32 → 2ND 03-26 12:12 → OBSVTOIN 03-28 13:15
PROVIDERS: ADMIT Internal Medicine Nephrology; ATTEND Internal Medicine Nephrology
DX: I13.0 Hypertensive heart and chronic kidney disease with heart failure and stage 1 through stage 4 chronic kidney disease, or unspecified chronic kidney disease (principal); I50.23 Acute on chronic systolic (congestive) heart failure; N18.4 Chronic kidney disease, stage 4 (severe); E87.1 Hypo-osmolality and hyponatremia; R07.89 Other chest pain; E11.22 Type 2 diabetes mellitus with diabetic chronic kidney disease; J44.9 Chronic obstructive pulmonary disease, unspecified; E83.42 Hypomagnesemia; E78.5 Hyperlipidemia, unspecified; I25.10 Atherosclerotic heart disease of native coronary artery without angina pectoris; G20 Parkinson's disease; E11.65 Type 2 diabetes mellitus with hyperglycemia; Z91.14 Patient's other noncompliance with medication regimen; Z95.0 Presence of cardiac pacemaker; Z86.73 Personal history of transient ischemic attack (TIA), and cerebral infarction without residual deficits; Z20.822 Contact with and (suspected) exposure to COVID-19
CPT/HCPCS: 36415; 71045; 71250; 80048; 80053; 80076; 82570; 82947; 83036; 83690; 83735; 83880; 83930; 83935; 84300; 84484; 85025; 85379; 85610; 93005; 93970; 96372; 96374; 96375; 99285; G0378; J1644; J1815; J1940; J2270; J2405; J3475; J3535; J7030; J7512; U0003

== ENCOUNTER 2022-03-29 22:32 | Emergency (ER) | payer OTHER ==
[2011-11-06 08:21] VITALS: BP 198/85
--- NOTE | 2022-03-30 00:01 | ER ---
Nurse's Notes [facility] Name: Jimbo Cat Age: 81 yrs Sex: Male : 1940 Arrival Date: 03/29/2022 Time: 22:34 Bed Waiting [facility] MD: Diagnosis: ED Course: 03/29 22:34 Patient arrived in ED. [id number] Administered Medications: No medications were administered Outcome: 23:59 Patient left the ED. kd3 Signatures: Sandy Neri Kyli RN RN kd3
== END 2022-03-29 23:59 | disposition left against medical advice (07) ==
LOC: ER 22:32
DX: Z02.9 Encounter for administrative examinations, unspecified (principal)

== ENCOUNTER 2022-03-30 02:57 | Inpatient (IN) | payer OTHER ==
[2022-03-30] MEDS ORDERED: LACTULOSE 20 GM/30 ML UCUP ONE (03:27)
[2022-03-30] MEDS ORDERED: BISACODYL 10 MG RECTAL SUPP ONE (03:27)
[2022-03-30] MEDS ORDERED: NA CHLORIDE 0.9% 500 ML ONE (03:27)
[2022-03-30 04:17] LABS: Absolute Lymphocytes (CBC) 0.5 K/uL (0.7-4.9); Lymphocytes % 4.5 % (15.3-44.8); MCV 90.3 fL (80-100); MPV 7.6 fL (7.6-11.3); RBC Red Blood Cell Count 3.44 M/uL (4.33-5.43)
[2022-03-30 04:41] LABS: Albumin 2.9 g/dL (3.4-5.0); Bilirubin Total 0.6 mg/dL (0.2-1.0); Potassium 3.4 mmol/L (3.5-5.1); Protein, Total 6.4 g/dL (6.4-8.2)
--- NOTE | 2022-03-30 06:03 | RAD REPORT ---
EXAM DESCRIPTION: CT - Abdomen Pelvis Wo Contrast - 03/30/2022 5:34 am CLINICAL HISTORY: Abdominal pain, acute, nonlocalized COMPARISON: Abdomen Pelvis Wo Contrast dated 02/04/2022; Thorax Wo Con dated 03/27/2022 TECHNIQUE: Axial [address] imaging of the abdomen and pelvis was performed without IV contrast. No IV contrast was given because of allergy, abnormal renal function, patient refusal or physician re quest. Oral contrast was given. All CT scans are performed using dose optimization technique as appropriate and may include automated exposure control or mA/KV adjustment according to patient size. FINDINGS: Cardiomegaly present without pericardial thickening or effusion. Chronic lung base opacifi cation on the right is present but not fully imaged. Chest findings are similar to the March 27 examina tion. Liver density is increased for a typical non IV contrast study. No focal liver lesions seen. A few pu nctate parenchymal calcifications are present. This could be due to amiodarone deposition in the live r parenchyma. Granulomatous calcifications present in a normal size spleen. No acute pancreatic proce ss. Gallbladder is not identified and presumed absent. No cholecystectomy clips seen. Gallbladder is potentially tightly contracted and obscured by dilated colon. Biliary tree is not dilated. No hydronephrosis of either kidney. Renal cysts are present mostly on the right. No significant adre nal finding. Isodense renal masses and pyelonephritis cannot be excluded in the absence of IV contras t. The urinary bladder is without significant finding. Small hiatal hernia is present. Oral contrast distends the stomach. No gastric wall thickening or mas s. Duration between contrast ingestion and image acquisition is unknown. Only trace amounts of contra st has extended into the small bowel. Large amount of stool is present in the rectum partially opacif ied by prior imaging or medication. The rectum is dilated to 8 cm. Large stool volume dilates the dis kimmie sigmoid colon to 5 cm. Moderate stool volume fills but does not dilate the descending colon. Flui d and air distended transverse colon. Cecum is dilated to 8 cm and filled with air and liquid stool. Fluid-filled, distended small bowel loops are present with no focal dilation or small bowel mass. No free air, free fluid or inflammatory stranding. No hernia, mass or bulky lymphadenopathy. No suspicious bony findings. IMPRESSION: Constipation pattern with a large amount of stool dilating the rectum to 8 cm and the di stal sigmoid colon to 5 cm. Right-side large bowel is dilated 8 cm in the cecum and filled with air and liquid stool. Numerous di stended but nondilated fluid-filled small bowel loops are present. No acute bowel obstruction, free air or other surgically emergent finding. Increased density of the liver may be due to amiodarone deposition from long-term use of this medicat ion. Full assessment is limited is the absence of IV contrast.
--- NOTE | 2022-03-30 07:27 | ER ---
Nurse's Notes [facility] Name: Jimbo Cat Age: 81 yrs Sex: Male : 1940 Arrival Date: 03/30/2022 Time: 03:03 Bed 19 Private MD: Diagnosis: Abdominal pain, Generalized;Vomiting;Constipation;Type 2 diabetes mellitus with hyperglycemia Presentation: 03/30 03:04 Chief complaint: EMS states: seen here earlier for constipation, left AMA. called 911 5 again for constipation. Coronavirus screen: Vaccine status: Patient reports receiving the 2nd dose of the covid vaccine. Ebola Screen: No symptoms or risks identified at this time. Initial Sepsis Screen: Does the patient meet any 2 criteria? No. Patient's initial sepsis screen is negative. Does the patient have a suspected source of infection? No. Patient's initial sepsis screen is negative. Risk Assessment: Do you want to hurt yourself or someone else? Patient reports no desire to harm self or others. Onset of symptoms was March 30, 2022. 03:04 Method Of Arrival: EMS: [place] [id number] 03:04 Acuity: SYDNIE 4 5 Triage Assessment: 03:05 General: Appears unkempt, Behavior is agitated. Pain: Denies pain. Neuro: Level of 5 Consciousness is awake, alert, obeys commands, Oriented to person, place, time, situation. GI: Abdomen is flat, non-distended, Reports constipation. Historical: - Allergies: 03:05 No Known Allergies; sm5 - PMHx: 03:05 Congestive heart failure; CVA; diabetes mellitus; Myocardial infarction; sm5 - PSHx: 03:05 Appendectomy; Pacemaker/Defibrillator; 5 - Immunization history:: Client reports receiving the 2nd dose of the Covid vaccine. - Social history:: Smoking status: Patient/guardian denies using tobacco, but has a distant history of tobacco abuse. - Family history:: not pertinent. Screenin:28 Abuse screen: Denies threats or abuse. Denies injuries from another. Nutritional sm5 screening: No deficits noted. Tuberculosis screening: No symptoms or risk factors identified. Fall Risk Gait- Weak (10 pts.). Assessment: 03:15 Reassessment: see triage assessment. 5 04:30 Reassessment: No changes from previously documented assessment. Patient and/or family 5 updated on plan of care and expected duration. Pain level reassessed. 05:30 Reassessment: No changes from previously documented assessment. sm5 06:52 Reassessment: No changes from previously documented assessment. sm5 07:01 Reassessment: pt now vomiting at this time. 5 Vital Signs: 03:04 BP 124 / 67; Pulse 80; Resp 19; Temp 97.9(TE); Pulse Ox 100% on R/A; Weight 58.97 kg; sm5 Height 5 ft. 7 in. (170.18 cm); 03:04 Body Mass Index 20.36 (58.97 kg, 170.18 cm) 5 ED Course: 03:03 Patient arrived in ED. wm 03:04 Terry Sanderson MD is Attending Physician. lubna 03:04 Leilani Calvillo, RN is Primary Nurse. 5 03:05 Triage completed. sm5 03:06 Arm band placed on right wrist. sm5 03:28 Inserted saline lock: 20 gauge in right forearm, using aseptic technique. Blood sm5 collected. 04:41 Notified ED physician of a critical lab result(s). glucose of 443 Dr Sanderson notified. bb 04:50 IV discontinued, intact, bleeding controlled, No redness/swelling at site. Pressure sm5 dressing applied, pt removed IV. 05:36 Abdomen In Process Unspecified. EDMS 07:11 Primary Nurse role handed off by Leilani Calvillo, RN tw2 07:11 Keisha Wilkinson, SABINE is Primary Nurse. tw2 07:24 Parveen Crabtree MD is Hospitalizing Provider. lubna 07:27 Inserted saline lock: 20 gauge in left antecubital area, using aseptic technique. Blood tw2 collected. IV discontinued, intact, bleeding controlled, No redness/swelling at site. Pressure dressing applied, pts arm started shaking before iv secured with tegaderm, infiltration noted. Missed attempt(s): 20 gauge in right antecubital area. Bleeding controlled, band aid applied, catheter tip intact. 07:52 Inserted saline lock: 22 gauge in left forearm, using aseptic technique. ll1 10:09 COVID-19 SARS RT PCR (Document "Date of Onset" if Symptomatic) Sent. kj1 10:36 No provider procedures requiring assistance completed. tw2 Administered Medications: 03:24 Drug: Dulcolax (bisacodyl) Suppository 10 mg Route: MO; 5 03:27 Drug: Lactulose 60 grams Volume: 45 ml; Route: PO; 03:27 Drug: NS 0.9% 500 ml Route: IV; Rate: bolus; Site: right antecubital; 08:57 Drug: Insulin Regular Human 8 units {Co-Signature: ll1 (Fernando Strange RN).} Route: IVP; 2 Site: left forearm; 09:58 Follow up: Response: No adverse reaction; Blood sugar is lowered 08:57 Drug: Semglee 100 unit/mL 25 units Route: Sub-Q; Site: right upper arm; 09:58 Follow up: Response: No adverse reaction 08:59 Drug: Pepcid (famotidine) 20 mg Route: IVP; Site: left forearm; 09:03 Drug: NS 0.9% 1000 ml Route: IV; Rate: 100 ml/hr; Site: left forearm; 09:06 Drug: Zosyn (piperacillin-tazobactam) 3.375 grams Route: IVPB; Infused Over: 60 mins; Site: left forearm; Point of Care Testing: Blood Glucose: :57 Blood Glucose: 469 mg/dL; 09:57 provider notified. Ranges: Outcome: 07:26 Decision to Hospitalize by Provider. lubna 10:36 Admitted to ER Hold. Please see [facility] for further documentation. tw2 10:36 Condition: stable 10:36 Instructed on the need for admit. 12:38 Patient left the ED. kj1 Signatures: Dispatcher [employer] EDTerry Rees MD MD cha Ballard, Brenda, RN RN Keisha Orozco RN RN tw2 Gayle Cody kj1 Fernando Strange RN RN ll1 Madelin Love Sarah, RN RN 5 Fernando Strange RN ll1
--- NOTE | 2022-03-30 07:27 | EDPHYS ---
Physician Documentation [facility] Name: Jimbo Cat Age: 81 yrs Sex: Male : 1940 Arrival Date: 03/30/2022 Time: 03:03 Bed 19 Private MD: NIVIA Physician Terry Sanderson HPI: 03/30 07:16 This 81 yrs old Male presents to ER via EMS with complaints of Constipation. lubna 07:16 The patient presents with abdominal pain in the upper abdomen, in the lower abdomen, lubna abdominal distention. Onset: The symptoms/episode began/occurred 3 day(s) ago. The patient presents to the emergency department with nausea, vomiting, abdominal pain, of the right upper quadrant, left upper quadrant, right lower quadrant and left lower quadrant. Onset: The symptoms/episode began/occurred 3 day(s) ago. Possible causes: unknown. The symptoms are aggravated by movement, pressure, The symptoms are alleviated by nothing. remaining still. Associated signs and symptoms: Pertinent positives: abdominal pain, constipation, nausea. The symptoms do not radiate. Associated signs and symptoms: Pertinent positives: nausea and vomiting, constipation. Modifying factors: The symptoms are alleviated by nothing, the symptoms are aggravated by movement, PALPITATION AND MOVEMENT. Historical: - Allergies: 03:05 No Known Allergies; sm5 - PMHx: 03:05 Congestive heart failure; CVA; diabetes mellitus; Myocardial infarction; sm5 - PSHx: 03:05 Appendectomy; Pacemaker/Defibrillator; sm5 - Immunization history:: Client reports receiving the 2nd dose of the Covid vaccine. - Social history:: Smoking status: Patient/guardian denies using tobacco, but has a distant history of tobacco abuse. - Family history:: not pertinent. ROS: 07:16 Constitutional: Negative for fever, chills, and weight loss, Eyes: Negative for injury, lubna pain, redness, and discharge, ENT: Negative for injury, pain, and discharge, Neck: Negative for injury, pain, and swelling, Cardiovascular: Negative for chest pain, palpitations, and edema, Respiratory: Negative for shortness of breath, cough, wheezing, and pleuritic chest pain, Back: Negative for injury and pain, : Negative for injury, bleeding, discharge, and swelling, MS/Extremity: Negative for injury and deformity, Skin: Negative for injury, rash, and discoloration, Neuro: Negative for headache, weakness, numbness, tingling, and seizure, Psych: Negative for depression, anxiety, suicide ideation, homicidal ideation, and hallucinations, Allergy/Immunology: Negative for hives, rash, and allergies, Endocrine: Negative for neck swelling, polydipsia, polyuria, polyphagia, and marked weight changes, Hematologic/Lymphatic: Negative for swollen nodes, abnormal bleeding, and unusual bruising. 07:16 Abdomen/GI: Positive for abdominal pain, nausea and vomiting, diarrhea, of the right upper quadrant, left upper quadrant, right lower quadrant and left lower quadrant. Exam: 07:16 Constitutional: This is a well developed, well nourished patient who is awake, alert, lubna and in no acute distress. Head/Face: Normocephalic, atraumatic. Eyes: Pupils equal round and reactive to light, extra-ocular motions intact. Lids and lashes normal. Conjunctiva and sclera are non-icteric and not injected. Cornea within normal limits. Periorbital areas with no swelling, redness, or edema. ENT: Nares patent. No nasal discharge, no septal abnormalities noted. Tympanic membranes are normal and external auditory canals are clear. Oropharynx with no redness, swelling, or masses, exudates, or evidence of obstruction, uvula midline. Mucous membranes moist. Neck: Trachea midline, no thyromegaly or masses palpated, and no cervical lymphadenopathy. Supple, full range of motion without nuchal rigidity, or vertebral point tenderness. No Meningismus. Chest/axilla: Normal chest wall appearance and motion. Nontender with no deformity. No lesions are appreciated. Cardiovascular: Regular rate and rhythm with a normal S1 and S2. No gallops, murmurs, or rubs. Normal PMI, no JVD. No pulse deficits. Respiratory: Lungs have equal breath sounds bilaterally, clear to auscultation and percussion. No rales, rhonchi or wheezes noted. No increased work of breathing, no retractions or nasal flaring. Back: No spinal tenderness. No costovertebral tenderness. Full range of motion. Male : Normal genitalia with no discharge or lesions. Skin: Warm, dry with normal turgor. Normal color with no rashes, no lesions, and no evidence of cellulitis. MS/ Extremity: Pulses equal, no cyanosis. Neurovascular intact. Full, normal range of motion. Neuro: Awake and alert, GCS 15, oriented to person, place, time, and situation. Cranial nerves II-XII grossly intact. Motor strength 5/5 in all extremities. Sensory grossly intact. Cerebellar exam normal. Normal gait. Psych: Awake, alert, with orientation to person, place and time. Behavior, mood, and affect are within normal limits. 07:16 Constitutional: The patient appears well developed, in obvious distress, mildly distressed. 07:16 Cardiovascular: Rate: normal, Rhythm: regular, Pulses: Pulses are 4+ in bilateral radial, brachial, femoral, popliteal, posterior tibial and and dorsalis pedis arteries.. Heart sounds: normal, Edema: is not appreciated, JVD: is not appreciated. 07:16 Abdomen/GI: Inspection: abdomen appears normal, Bowel sounds: diminished, Palpation: moderate abdominal tenderness, in all quadrants, Liver: no appreciated palpable abnormalities, Hernia: not appreciated. Vital Signs: 03:04 BP 124 / 67; Pulse 80; Resp 19; Temp 97.9(TE); Pulse Ox 100% on R/A; Weight 58.97 kg; 5 Height 5 ft. 7 in. (170.18 cm); 03:04 Body Mass Index 20.36 (58.97 kg, 170.18 cm) [facility] MDM: 03:04 Patient medically screened. [facility] 07:20 Differential diagnosis: Nonspecific abd pain, gastritis, diverticulitis, viral lubna gastroenteritis, gastroenteritis, Cholelithiasis, diverticulitis, gastritis, Hepatitis, non-specific abd pain, Peptic Ulcer Disease, Perf. Duodenal Ulcer, Perf. Gastric Ulcer, Prostatitis, Ureterolithiasis, urinary tract infection. Data reviewed: vital signs, nurses notes, lab test result(s), EKG, radiologic studies, CT scan, plain films. Data interpreted: monitoring engineer: rate is 80 beats/min, rhythm is regular, Pulse oximetry: on room air is 100 %. Test interpretation: by ED physician or midlevel provider: ECG, plain radiologic studies. Counseling: I had a detailed discussion with the patient and/or guardian regarding: the historical points, exam findings, and any diagnostic results supporting the discharge/admit diagnosis, lab results, radiology results, the need for further work-up and treatment in the hospital. 03/30 03:06 Order name: CBC with Diff; Complete Time: 06:54 [facility] 03/30 03:06 Order name: CMP; Complete Time: 06:54 [facility] 03/30 03:06 Order name: Lipase; Complete Time: 06:54 [facility] 03/30 07:08 Order name: Troponin High Sensitivity; Complete Time: 10:16 [facility] 03/30 07:18 Order name: Lactate; Complete Time: 10:16 kj 03/30 07:51 Order name: CBC with Automated Diff EDVT 03/30 07:51 Order name: CBC with Automated Diff EDMS 03/30 07:51 Order name: Comprehensive Metabolic Panel EDVT 03/30 07:51 Order name: Comprehensive Metabolic Panel EDVT 03/30 08:43 Order name: Glucose 2 03/30 08:44 Order name: COVID-19 SARS RT PCR (Document "Date of Onset" if Symptomatic) [facility] 03/30 08:55 Order name: Glucose, Ancillary Testing; Complete Time: 10:16 EDVT 03/30 09:16 Order name: Glucose Level; Complete Time: 10:16 EDVT 03/30 10:08 Order name: Glucose, Ancillary Testing; Complete Time: 10:16 EDVT 03/30 03:06 Order name: CT Abd/Pelvis - PO Contrast Only [facility] 03/30 05:14 Order name: Abdomen ; Complete Time: 06:54 EDVT 03/30 07:08 Order name: EKG; Complete Time: 07:08 [facility] 03/30 07:51 Order name: ERT [facility] 03/30 07:51 Order name: ERT [facility]EM[facility] 03/30 10:38 Order name: SARS-COV-2 RT PCR [facility] 03/30 10:45 Order name: Lactate Sepsis 2 HR Follow-up [facility] 03/30 03:06 Order name: IV Saline Lock; Complete Time: 03:24 [facility] 03/30 03:06 Order name: Labs collected and sent; Complete Time: 03:24 [facility] 03/30 07:08 Order name: EKG - Nurse/Tech [facility] 03/30 07:51 Order name: Regular EDMS Administered Medications: 03:24 Drug: Dulcolax (bisacodyl) Suppository 10 mg Route: HI; sm5 03:27 Drug: Lactulose 60 grams Volume: 45 ml; Route: PO; sm5 03:27 Drug: NS 0.9% 500 ml Route: IV; Rate: bolus; Site: right antecubital; sm5 08:57 Drug: Insulin Regular Human 8 units {Co-Signature: ll1 (Fernando Strange RN).} Route: IVP; tw2 Site: left forearm; 09:58 Follow up: Response: No adverse reaction; Blood sugar is lowered 08:57 Drug: Semglee 100 unit/mL 25 units Route: Sub-Q; Site: right upper arm; tw2 09:58 Follow up: Response: No adverse reaction 08:59 Drug: Pepcid (famotidine) 20 mg Route: IVP; Site: left forearm; tw2 09:03 Drug: NS 0.9% 1000 ml Route: IV; Rate: 100 ml/hr; Site: left forearm; tw 09:06 Drug: Zosyn (piperacillin-tazobactam) 3.375 grams Route: IVPB; Infused Over: 60 mins; tw2 Site: left forearm; Point of Care Testing: Blood Glucose: Blood Glucose: 469 mg/dL; 09:57 provider notified. Ranges: Critical Glucose Levels:Adult <50 mg/dl or >400 mg/dl <40 mg/dl or >180 mg/dl Disposition Summary: 03/30/22 07:26 Hospitalization Ordered Hospitalization Status: Inpatient Admission lubna Provider: Parveen Crabtree cha Condition: Fair lubna Problem: new lubna Symptoms: have improved lubna Bed/Room Type: Standard lubna Location: Telemetry/MedSurg (Inpatient)(03/30/22 11:24) [facility] Room Assignment: [facility](03/30/22 11:24) [facility] Diagnosis - Abdominal pain, Generalized lubna - Vomiting lubna - Constipation lubna - Type 2 diabetes mellitus with hyperglycemia lubna Forms: - Medication Reconciliation Form lubna - SBAR form lubna Signatures: Dispatcher [employer] EDMS Terry Sanderson MD MD cha Marinas, Patrick, SURVEY RESEARCH MANAGER SURVEY RESEARCH MANAGER pm1 Keisha Wilkinson RN RN tw2 Carter Mcintosh RN RN ja1 Gayle Cody Sarah, RN RN sm5 Fernando Strange RN ll1 Corrections: (The following items were deleted from the chart) 05:14 03:10 Abdomen ordered. EDVT EDMS 10:07 07:26 Telemetry/MedSurg (Inpatient) lubna kj1 10:07 07:26 lubna kj1 10: 10:07 kj1 kj1 11:24 10:07 [facility] kj1 ja1 11:24 10: [facility]- kj1 ja1
[2022-03-30] MEDS ORDERED: ACETAMINOPHEN 500 MG TAB PO PRN (07:42)
[2022-03-30] MEDS ORDERED: MORPHINE 2 MG/ML SYR IV PRN (07:42)
[2022-03-30] MEDS ORDERED: MAGNESIUM CITRATE 300 ML BOT PO SCH (08:00)
[2022-03-30] MEDS ORDERED: INSULIN -REGULAR HUMAN 50 UNIT/0.5 ML ML ONE (08:57)
[2022-03-30] MEDS ORDERED: INSULIN GLARGINE 100 UNIT/ML SQ ONE (08:57)
[2022-03-30] MEDS ORDERED: FAMOTIDINE 20 MG/2 ML VIAL IV ONE (08:59)
[2022-03-30] MEDS ORDERED: NA CHLORIDE 0.9% 1,000 ML ONE ×2 (08:59→10:13)
[2022-03-30] MEDS ORDERED: PIPERACIL/TAZO 3.375 GM VIAL IV ONE (08:59)
[2022-03-30] MEDS ORDERED: NA CHLORIDE 0.9% 100 ML ONE (08:59)
[2022-03-30] MEDS ORDERED: ONDANSETRON 4 MG/2 ML VIAL ONE (10:12)
[2022-03-30] MEDS ORDERED: MAGNESIUM CITRATE 300 ML BOT ONE (10:12)
[2022-03-30] MEDS ORDERED: MORPHINE 2 MG/ML SYR ONE (10:12)
[2022-03-30] MEDS: NA CHLORIDE 0.9% 1,000 ML IV SCH ×2 (10:15→15:46)
[2022-03-30] MEDS: ONDANSETRON 4 MG/2 ML VIAL IV PRN (10:15)
[2022-03-30 12:01] VITALS: BMI 20.3
[2022-03-30] MEDS ORDERED: GLUCAGON 1 MG/VIAL IM PRN (14:53)
[2022-03-30] MEDS ORDERED: INSULIN 70/30 100 UNITS/ML SQ ONE (15:00)
[2022-03-30] MEDS ORDERED: DEXTROSE 10%-WATER 500 ML IV BAG IV PRN (15:08)
[2022-03-30] MEDS: INSULIN -REGULAR HUMAN 50 UNIT/0.5 ML ML SQ SCH ×2 (17:18→20:45)
[2022-03-30] MEDS: LACTULOSE 20 GM/30 ML UCUP PO SCH ×2 (17:19→20:45)
[2022-03-30] MEDS ORDERED: DIPHENHYDRAMINE 25 MG TAB/CAP PO PRN (22:31)
--- NOTE | 2022-03-30 22:52 | P.HP ---
Certification for Inpatient Patient admitted to: Observation With expected LOS: <2 Midnights Patient will require the following post-hospital care: None Practitioner: I am a practitioner with admitting privileges, knowledge of patient current condition, hospital course, and medical plan of care. Services: Services provided to patient in accordance with Admission requirements found in Title 42 Section 412.3 of the Code of Federal Regulations Patient History Date of Service: 03/30/22 Reason for admission: Patient with severe constipation and abdominal pain with nausea and vomiti History of Present Illness: patient is a 81-year-old gentleman who comes into the hospital with abdominal pain. Patient was having nausea and vomiting as well. Imaging studies reveal patient was impacted. Patient had a large amount of stool volume throughout the colon. ER physician felt like patient need to be admitted for disimpaction. Spoke to nursing staff and plan is to disimpact patient and give soapsuds enema x2. Also give laxative. Hopefully, we can clean patient about his abdominal pain will improve. We will continue monitoring closely. Continue with monitoring labs closely. Patient has a history of cardiac disease, but recent ECHO revealed he had an EF of 50%. 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 Allergies No Known Allergies Allergy (Verified 03/23/21 04:35) Home Medications: Hydralazine [Apresoline*] 25 mg PO TID 01/28/22 Potassium Chloride 1 tab PO DAILY 01/28/22 Metformin HCl [Glucophage*] 500 mg PO BIDWM 30 Days #60 tab 01/29/22 Aspirin 81 mg PO DAILY 03/04/22 Furosemide [Lasix] 20 mg PO BID 03/04/22 Insulin Glargine,Hum.rec.anlog [Lantus] 20 units SQ DAILY 03/04/22 predniSONE [Deltasone*] 10 mg PO BID #20 tab 03/27/22 Mometasone/Formoterol [Dulera 200 Mcg/5 Mcg Inhaler] 2 puff IH BID #60 inhaler 03/28/22 - Past Medical/Surgical History Has patient received pneumonia vaccine in the past: Yes Diabetic: Yes -: Pacemaker/defibrillator 2010 -: Hypertension -: CAD -: Hyperlipidemia -: History of CVA -: Depression -: Bilateral cataracts -: Chronic systolic CHF -: COPD -: Parkinsons -: CKD [address] 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 moist/pink, EOMI, Sclerae nonicteric Neck: Supple, 2+ carotid pulse no bruit, No LAD, Without JVD or thyroid abnormality Respiratory: Clear to auscultation bilaterally, Normal air movement Cardiovascular: Regular rate/rhythm, Normal S1 S2 Gastrointestinal: Hypoactive, No rebound, No guarding, Other (mildly distended), Tenderness Musculoskeletal: No clubbing, No swelling, No tenderness Integumentary: No rashes Neurological: Normal gait, Normal speech, Normal strength at 5/5 x4 extr, Normal tone, Normal affect Lymphatics: No axilla or inguinal lymphadenopathy - Studies Laboratory Data (last 24 hrs) 03/30/22 03:53: Sodium 131 L, Potassium 3.4 L, BUN 66 H, Creatinine 2.61 H, Glucose 443 H*, Total Bilirubin 0.6, AST 64 H, ALT 121 H, Alkaline Phosphatase 94, Lipase 294 03/30/22 03:53: WBC 10.0 D, Hgb 10.6 L, Hct 31.0 L, Plt Count 183 D Assessment & Plan - Problems (Diagnosis) (1) Fecal impaction of colon Current Visit: Yes Status: Acute (2) COPD (chronic obstructive pulmonary disease) Current Visit: No Status: Chronic Qualifiers: (3) Chronic kidney disease, stage 3 Current Visit: No Status: Chronic Qualifiers: (4) Congestive heart failure (CHF) Onset Date: 06/15/17 Current Visit: No Status: Chronic Qualifiers: Heart failure type: diastolic Heart failure chronicity: chronic Qualified Code(s): I50.32 - Chronic diastolic (congestive) heart failure (5) Diabetes mellitus, type II Current Visit: No Status: Chronic Qualifiers: (6) HTN (hypertension) Current Visit: No Status: Chronic Qualifiers: (7) History of CVA (cerebrovascular accident) Current Visit: No Status: Chronic (8) Hyperlipidemia Current Visit: No Status: Chronic Qualifiers: - Plan PLAN: 1. IVFs 2. Laxative 3. Enema 4. Disimpact 5. Repeat labs 6. Pain control 7. Resume cardiac meds 8. Monitor Volume status and renal function. 9. Strict BS monitoring Discharge Plan: Home Plan to discharge in: Greater than 2 days - Advance Directives Does patient have a Living Will: No Does patient have a Durable POA for Healthcare: No - Code Status/Comfort Care Code Status Assessed: Yes Code Status: Full Code Critical Care: No Time Spent Managing PTS Care (In Minutes): 45
[2022-03-31] MEDS: ONDANSETRON 4 MG/2 ML VIAL IV PRN (00:31)
[2022-03-31] MEDS: NA CHLORIDE 0.9% 1,000 ML IV SCH (04:00)
[2022-03-31 04:10] LABS: Absolute Lymphocytes (CBC) 0.6 K/uL (0.7-4.9); Hematocrit 36.9 % (39.6-49.0); Lymphocytes % 1.7 % (15.3-44.8); MCV 89.8 fL (80-100); MPV 7.7 fL (7.6-11.3); RBC Red Blood Cell Count 4.11 M/uL (4.33-5.43)
[2022-03-31 04:27] LABS: Albumin 2.8 g/dL (3.4-5.0); Potassium 3.6 mmol/L (3.5-5.1); Protein, Total 6.7 g/dL (6.4-8.2)
[2022-03-31] MEDS ORDERED: FUROSEMIDE 40 MG/4 ML VIAL IV ONE ×2 (04:41→08:09)
[2022-03-31 04:47] LABS: Blood Morphology Comment NOT SEEN (NOT SEEN); Platelet Estimate ADEQ
[2022-03-31] MEDS: INSULIN -REGULAR HUMAN 50 UNIT/0.5 ML ML SQ SCH ×4 (07:30→23:30)
[2022-03-31] MEDS ORDERED: Ciprofloxacin 200mg IV 200 MG/100 ML IV.SOLN. IV SCH ×2 (08:00→09:00)
[2022-03-31] MEDS ORDERED: FUROSEMIDE 40 MG/4 ML VIAL ONE (08:18)
[2022-03-31] MEDS ORDERED: SODIUM BICARB 50 MEQ/50ML VIAL ONE (08:37)
[2022-03-31] MEDS ORDERED: RSI MEDICATION KIT IV ONE (08:43)
[2022-03-31] MEDS: LACTULOSE 20 GM/30 ML UCUP PO SCH ×2 (09:00→13:00)
--- NOTE | 2022-03-31 09:13 | P.PN ---
Date of Service: 03/31/22 Rapid response called. Patient was lethargic compared to my visit with him yesterday. Patient's abdomen was more distended. Apparently overnight patient had worsening shortness of breath. Patient's fluids were stopped and patient was given IV lasix. However, patient's abdomen was distended this AM and patient had lactic acidosis. Patient also had a significant increase in leukocytosis. Patient was started on antibiotics. I saw patient this AM and we called rapid response because of lethargy. I ordered CXR and KUB. Patient was still very lethargic and not responding well. We had placed a NGT and got a large amount of NG fluid-700cc right away. I spoke with ER physician and decision was made to intubate as patient was very le thargic and obtunded, and concern for aspiration as he was not protecting his airway. I spoke with the and she stated that he was a full code. We intubated the patient, and NGT was placed. Dr. Sanderson also placed a central line using Seldinger technique. Patient was prepped and draped sterilely. Patient was given local anesthesia with lidocaine. Patient's femoral vein was aspirated and central line placed without difficulty. Patient's ports were flushed. Patient will be transferred to ICU
[2022-03-31 09:19] LABS: Absolute Lymphocytes (CBC) 0.3 K/uL (0.7-4.9); Hematocrit 30.5 % (39.6-49.0); Lymphocytes % 1.4 % (15.3-44.8); MCV 90.1 fL (80-100); MPV 7.6 fL (7.6-11.3); RBC Red Blood Cell Count 3.38 M/uL (4.33-5.43)
[2022-03-31 09:36] LABS: Potassium 3.9 mmol/L (3.5-5.1); Protein, Total 5.1 g/dL (6.4-8.2)
--- NOTE | 2022-03-31 09:37 | RAD REPORT ---
EXAM DESCRIPTION: RAD - Abdomen 1 View (KUB) - 03/31/2022 9:17 am CLINICAL HISTORY: Device placement nasogastric tube placement FINDINGS: The tip of a nasogastric tube lies within the distal stomach.
--- NOTE | 2022-03-31 09:38 | RAD REPORT ---
EXAM DESCRIPTION: Daniel Single View03/31/2022 9:17 am CLINICAL HISTORY: Device placement endotracheal tube placement IMPRESSION: An endotracheal tube has been inserted with its tip overlying the aortic arch approximat inga 2 centimeters from the sanjana
[2022-03-31] MEDS: METRONIDAZOLE 500mg IVPB 500 MG/100 ML BAG IV SCH ×2 (09:44→16:56)
--- NOTE | 2022-03-31 09:57 | P.CNS ---
Date of Consult: 03/31/22 Reason for consult: Abdominal pain History of present illness: Patient is a 81-year-old gentleman who came into the emergency room with abdominal pain yesterday. Work-up revealed fecal impaction. Today patient was noted to have significant increase in his white countfrom 10,000-35,000 with a left shift. Patient had acute respiratory failure and patient was just recently intubated. I was consulted at this time. Patient is intubated unable to give any review of systems. Patient does have multiple medical problems and has been admitted with similar issues in the past. Review of systems: See medical records Past medical history:Hypertension,, coronary artery disease hyperlipidemia, history of stroke, depression, chronic systolic CHF, COPD, Parkinson's, chronic renal failure, chronic hyponatremia Past surgical history:Cervical vertebrae surgery x2, benign tumor removed from left knee, appendectomy, tonsillectomy, left ear cancer resection, pacemaker and defibrillator Allergies: None Social history: Patient does not smoke or drink Family history: Reviewed in the computer Vital signs:Currently the patient is intubated, vitals are stable and he is afebrile Physical exam: Intubated, nonresponsive Head and neck exam: No masses Chest: Clear Heart: S1-S2 Abdomen: Soft, distended, hypoactive bowel sounds, nontender Extremity: Neurovascular intact, nontender Neuro: Nonfocal Diagnostic data: CT scan done yesterday reviewed with radiologistessentially shows fecal impaction with no evidence of ischemic colitis. White count is 35,000 with a left shift and electrolytes reviewed. Assessment: Abdominal pain, fecal impaction, respiratory failure and leukocytosis. Plan/recommendation: Discussed the case with Dr. Crabtree. As the NG tube put out greater than a liter of gastric contents, we will get a repeat CT of the abdomen pelvis with p.o. contrast. Differential does include ischemic colitis. Currently, patient requires respiratory support, close monitoring and empiric antibiotics until the diagnosis is clear. We will follow this patient closely. CC:
[2022-03-31] MEDS ORDERED: ROCURONIUM 50 MG/5 ML VIAL IV ONE (09:59)
[2022-03-31] MEDS ORDERED: ETOMIDATE 20 MG/10 ML VIAL IV ONE (09:59)
[2022-03-31 10:00] LABS: Arterial Blood Carboxyhemoglob 1.2 % (0-1.5); Blood Gas Oxyhemoglobin 96.2 % (94-97); Blood O2 Saturation 98.7 % (92-98.5)
[2022-03-31] MEDS ORDERED: NA CHLORIDE 0.9% 1,000 ML IV SCH (10:24)
--- NOTE | 2022-03-31 14:57 | RAD REPORT ---
EXAM DESCRIPTION: CT - Head Brain Wo Cont - 03/31/2022 2:38 pm CLINICAL HISTORY: non responsive post intubation COMPARISON: Head Brain Wo Cont dated 07/08/2021 TECHNIQUE: Axial 5 mm thick images of the head were obtained without IV contrast. All CT scans are performed using dose optimization technique as appropriate and may include automated exposure control or mA/KV adjustment according to patient size. FINDINGS: No intracranial hemorrhage is present. There is no mass, edema or shift of midline structu res. Vasquez matter -white matter differentiation is preserved. There is no diffuse anoxic brain injury evident. No focal acute cortical based infarction seen. No cortical edema or sulcal effacement. Underlying atr ophy changes are [id number]. Relatively decreased activity along the insular cortex and externa l capsule on the left not clearly different from the 2020 comparison. Ventricles are in proportion to any volume loss. A few scattered white matter chronic ischemic changes are seen. Focal decreased att enuation in the left cerebral peduncle matches the prior study. No abnormal extra-axial fluid collect ions. Mastoid air cells and visualized portions of the paranasal sinuses are clear. No acute bony findings. IMPRESSION: No hemorrhage, edema or acute intracranial process identifiable. An acute infarction is not identifiable. The patient's atrophy and chronic ischemic findings are similar to the 2020 comparison.
--- NOTE | 2022-03-31 15:18 | RAD REPORT ---
EXAM DESCRIPTION: CT - Abdomen Pelvis Wo Contrast - 03/31/2022 2:39 pm CLINICAL HISTORY: PO contrast , ischemic bowel COMPARISON: Abdomen Pelvis Wo Contrast dated 03/30/2022; Abdomen 1 View (KUB) dated 03/31/2022 TECHNIQUE: Axial [address] imaging of the abdomen and pelvis was performed without IV contrast. No IV contrast was given because of allergy, abnormal renal function, patient refusal or physician re quest. Oral contrast was given. All CT scans are performed using dose optimization technique as appropriate and may include automated exposure control or mA/KV adjustment according to patient size. FINDINGS: There is extensive consolidation of each lower lobe with large air bronchograms identified . This is new from the March 30 examination. No pleural effusion. Cardiac silhouette remains enlarged. Atelectasis changes are minimal in the right middle lobe and lingula of the left upper lobe. Numerou s mediastinal and hilar granulomatous calcifications are present only partially imaged. The liver, spleen and pancreas show no suspicious findings on non-contrast imaging. Gallbladder and b iliary tree are also without suspicious finding. No hydronephrosis or suspicious renal mass. Small exophytic renal cortical cysts are present. No sign ificant adrenal finding. Isodense renal masses and pyelonephritis cannot be excluded in the absence o f IV contrast. Urinary bladder is contracted around a Massey catheter. Contrast is present within the nondilated stomach. No gastric wall thickening or gastric mass identif iable. Contrast is present in the distal esophagus from either decreased peristalsis or reflux. Oral contrast column extends to the mid jejunal level. Patient has numerous distended but nondilated air a nd fluid-filled small bowel loops. In the central abdomen and few of the small bowel loops show perip heral air that could be air trapped within folds or possibly pneumatosis intestinalis. This is not pr esent in the colon. There are no areas of large or small bowel wall thickening or edema. Aortic ather osclerotic calcifications are mild for age. There are no calcifications at the origin of the celiac, SMA or BON vasculature. Large amount of solid stool is present distending the rectum to 7 cm and exte nding to a lesser degree the distal sigmoid. No colon obstructing mass. No free air, free fluid or extravasation of contrast. There is no intraabdominal abscess. No hernia, mass or bulky lymphadenopathy. Disc and bone degenerative changes are present. IMPRESSION: Bilateral lower lobe consolidation new from prior day imaging. Aspiration and/ or infect ious pneumonia suspected. No intraabdominal abscess. No extravasation of bowel content or perforation findings. The large and small bowel loops generally show no findings suspicious for mesenteric ischemia. There is no abnormal degree of calcification at the origin of the mesenteric vasculature. A few central small bowel loops show air pattern that could indicate pneumatosis intestinalis. Pneuma tosis is not present in the colon. Full assessment is limited is the absence of IV contrast.
[2022-03-31] MEDS ORDERED: SODIUM CHL 0.9% 500 ML BAG IV ONE (16:00)
[2022-03-31] MEDS: D5 0.9 NS 1,000 ML IV SCH (16:57)
[2022-03-31] MEDS ORDERED: VANCOMYCIN 1.5 GM in NA CHLORIDE 0.9% 500 ML IVPB ONE (17:00)
[2022-03-31] MEDS: NOREPINEPHRINE BITARTRATE/D5W 4 MG/250 ML BAG IV SCH ×2 (18:22→22:00)
[2022-03-31 18:47] LABS: Arterial Blood Carboxyhemoglob 1.4 % (0-1.5); Blood Gas Oxyhemoglobin 88.4 % (94-97); Blood O2 Saturation 90.9 % (92-98.5)
[2022-03-31] MEDS ORDERED: HYDROCORTISONE SUC 100 MG INJ IV ONE (19:00)
--- NOTE | 2022-03-31 19:41 | RAD REPORT ---
EXAM DESCRIPTION: RAD - Chest Single View - 03/31/2022 6:48 pm CLINICAL HISTORY: rhythm changed, code blue COMPARISON: March 31 TECHNIQUE: AP portable chest image was obtained 03/31/2022 6:48 pm . FINDINGS: Endotracheal tube and nasogastric tube are unchanged. Defibrillator remains in place. Resu scitation paddles overlie the chest. Lung volumes are low. Mid and lower left lung field interstitial and alveolar opacities are stable. P atchy right lung base parenchymal opacification and atelectasis are also stable. Heart and vasculature are normal. No measurable pleural effusion and no pneumothorax. Lateral fifth rib on the right is fractured. No other fractures confirmed. No acute aortic findings suspected. IMPRESSION: Stable lung parenchymal opacification pattern. Tubes and lines are unchanged.
[2022-03-31] MEDS: HYDROCORTISONE SUC 100 MG INJ IV SCH (20:43)
[2022-03-31] MEDS: PIPER TAZO 3.375 GM in NA CHLORIDE 0.9% 100 ML IV SCH (20:43)
--- NOTE | 2022-03-31 22:07 | P.PN ---
Subjective Date of Service: 03/31/22 Patient had rapid response called this morning. Patient was intubated and patient was taken to the ICU. Patient was started on vasopressor support. This evening patient lost his pulse and we had to initiate CPR. Patient had also several electrolyte tibia we started patient on IV push epinephrine x2. We gave patient an amp of bicarb. We were able to get a pulse back. I spoke with the patient's and she states that he has a living will that says he does not want to be resuscitated. Patient will be made a do not attempt resuscitation at this time. If he loses his pulse again will keep him comfortable and make sure he passes away peacefully. Review of Systems is unable to be obtained Physical Examination - Vital Signs Temperature: 97.6 F Blood Pressure: 118/52 Pulse: 89 Respirations: 20 Pulse Ox (%): 99 - Physical Exam General: Unresponsive HEENT: Other ( Intubated and sedated) Respiratory: Rhonchi/gurgles Cardiovascular: Regular rate/rhythm, Normal S1 S2 Gastrointestinal: Normal bowel sounds, Soft and benign, Non-distended Musculoskeletal: No clubbing, No swelling Neurological: Other Assessment & Plan - Problems (Diagnosis) (1) Fecal impaction of colon Current Visit: Yes Status: Acute (2) COPD (chronic obstructive pulmonary disease) Current Visit: No Status: Chronic Qualifiers: (3) Chronic kidney disease, stage 3 Current Visit: No Status: Chronic Qualifiers: (4) Congestive heart failure (CHF) Onset Date: 06/15/17 Current Visit: No Status: Chronic Qualifiers: Heart failure type: diastolic Heart failure chronicity: chronic Qualified Code(s): I50.32 - Chronic diastolic (congestive) heart failure (5) Diabetes mellitus, type II Current Visit: No Status: Chronic Qualifiers: (6) HTN (hypertension) Current Visit: No Status: Chronic Qualifiers: (7) History of CVA (cerebrovascular accident) Current Visit: No Status: Chronic (8) Hyperlipidemia Current Visit: No Status: Chronic Qualifiers: (9) Aspiration pneumonia Current Visit: Yes Status: Acute (10) Septic shock Current Visit: Yes Status: Acute (11) Lactic acidosis Current Visit: Yes Status: Acute - Plan PLAN: 1. IVFs 2. Continue with vasopressor support 3. Lactulose through NG tube if secretions diminished 4. Will start bicarb drip 5. May need Nephrology consultation if renal function worsens; monitor input and output 6. IV antibiotic therapy for aspiration pneumonia and colitis 7. Patient is a do not attempt resuscitation 8. Gi and DVT prophylaxis Discharge Plan: Home Plan to discharge in: Greater than 2 days - Advance Directives Does patient have a Living Will: No Does patient have a Durable POA for Healthcare: No - Code Status/Comfort Care Code Status: Do Not Attempt Resuscitat Critical Care: Yes Time Spent Managing PTS Care (In Minutes): 120
[2022-04-01 00:58] VITALS: O2SAT 96
[2022-04-01] MEDS ORDERED: PIPER TAZO 2.25 GM in NA CHLORIDE 0.9% 50 ML IV SCH (01:00)
[2022-04-01] MEDS: NOREPINEPHRINE BITARTRATE/D5W 4 MG/250 ML BAG IV SCH ×9 (01:15→22:56)
[2022-04-01] MEDS ORDERED: D5W 250 ML IV ONE ×2 (03:26→05:27)
[2022-04-01] MEDS ORDERED: Phenylephrine HCl 10 MG/ML 1 ML VIAL ONE (03:27)
[2022-04-01 05:26] LABS: Absolute Lymphocytes (CBC) 0.4 K/uL (0.7-4.9); Hematocrit 37.2 % (39.6-49.0); Lymphocytes % 1.7 % (15.3-44.8); MPV 8.5 fL (7.6-11.3); RBC Red Blood Cell Count 4.04 M/uL (4.33-5.43)
[2022-04-01] MEDS ORDERED: NOREPINEPHRINE 4 MG/4 ML VIAL ONE (05:26)
[2022-04-01 06:03] LABS: Albumin 1.9 g/dL (3.4-5.0); Bilirubin Total 3.4 mg/dL (0.2-1.0); Magnesium 6.2 mg/dL (1.8-2.4); Phosphorus 5.2 mg/dL (2.5-4.9); Potassium 4.4 mmol/L (3.5-5.1); Protein, Total 4.8 g/dL (6.4-8.2)
[2022-04-01] MEDS: INSULIN -REGULAR HUMAN 50 UNIT/0.5 ML ML SQ SCH ×3 (07:30→16:30)
--- NOTE | 2022-04-01 07:44 | RAD REPORT ---
EXAM DESCRIPTION: Daniel Single View04/01/2022 5:44 am CLINICAL HISTORY: Chest pain COMPARISON: March 31, 2022 FINDINGS: Worsening in right lower lobe consolidation. No significant change left lower lobe consoli dation Cardiomegaly Endotracheal tube with its tip overlying the aortic arch. Nasogastric tube within the distal stomach. Pacemaker leads place IMPRESSION: Worsening in right lower lobe consolidation consistent with pneumonia No significant change left lower lobe consolidation
[2022-04-01] MEDS: HYDROCORTISONE SUC 100 MG INJ IV SCH ×2 (08:32→22:35)
[2022-04-01] MEDS: PIPER TAZO 3.375 GM in NA CHLORIDE 0.9% 100 ML IV SCH ×2 (08:32→22:35)
[2022-04-01] MEDS: D5 0.9 NS 1,000 ML IV SCH (10:30)
[2022-04-01] MEDS ORDERED: SODIUM BICARB 50 MEQ/50ML VIAL IV ONE (18:51)
[2022-04-01] MEDS ORDERED: EPINEPHrine 1 MG/10 ML SYR IV ONE (18:51)
[2022-04-02] MEDS: D5 0.9 NS 1,000 ML IV SCH (02:14)
[2022-04-02] MEDS: NOREPINEPHRINE BITARTRATE/D5W 4 MG/250 ML BAG IV SCH (02:14)
--- NOTE | 2022-04-02 07:47 | P.DS ---
Discharge Date: 04/02/22 Disposition: Reason for Admission: Patient with severe constipation and abdominal pain with nausea and vomiti - Problems (1) Fecal impaction of colon Current Visit: Yes Status: Acute (2) COPD (chronic obstructive pulmonary disease) Current Visit: No Status: Chronic Qualifiers: (3) Chronic kidney disease, stage 3 Current Visit: No Status: Chronic Qualifiers: (4) Congestive heart failure (CHF) Onset Date: 06/15/17 Current Visit: No Status: Chronic Qualifiers: Heart failure type: diastolic Heart failure chronicity: chronic Qualified Code(s): I50.32 - Chronic diastolic (congestive) heart failure (5) Diabetes mellitus, type II Current Visit: No Status: Chronic Qualifiers: (6) HTN (hypertension) Current Visit: No Status: Chronic Qualifiers: (7) History of CVA (cerebrovascular accident) Current Visit: No Status: Chronic (8) Hyperlipidemia Current Visit: No Status: Chronic Qualifiers: (9) Aspiration pneumonia Current Visit: Yes Status: Acute (10) Septic shock Current Visit: Yes Status: Acute (11) Lactic acidosis Current Visit: Yes Status: Acute Brief History of Present Illness: patient is a 81-year-old gentleman who comes into the hospital with abdominal pain. Patient was having nausea and vomiting as well. Imaging studies reveal patient was impacted. Patient had a large amount of stool volume throughout the colon. ER physician felt like patient need to be admitted for disimpaction. Spoke to nursing staff and plan is to disimpact patient and give soapsuds enema x2. Also give laxative. Hopefully, we can clean patient about his abdominal pain will improve. We will continue monitoring closely. Continue with monitoring labs closely. Patient has a history of cardiac disease, but recent ECHO revealed he had an EF of 50%. 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 Hospital Course: Patient became septic from aspiration pneumonia. Patient's clinical symptoms continue to deteriorate. Patient had to be resuscitated. I spoke to the and she stated that patient had a do not attempt resuscitation that she found in his paperwork. She does not want any more aggressive measures performed. Patient ended up passing away on the morning of April 02, 2022 Home Medications: Hydralazine [Apresoline*] 25 mg PO TID 01/28/22 Potassium Chloride 1 tab PO DAILY 01/28/22 Metformin HCl [Glucophage*] 500 mg PO BIDWM 30 Days #60 tab 01/29/22 Aspirin 81 mg PO DAILY 03/04/22 Furosemide [Lasix] 20 mg PO BID 03/04/22 Insulin Glargine,Hum.rec.anlog [Lantus] 20 units SQ DAILY 03/04/22 predniSONE [Deltasone*] 10 mg PO BID #20 tab 03/27/22 Mometasone/Formoterol [Dulera 200 Mcg/5 Mcg Inhaler] 2 puff IH BID #60 inhaler 03/28/22 Physician Discharge Instructions: Patient Time spent managing pt's care (in minutes): 25
[2022-04-02 07:48] VITALS: BP 118/52; TEMP 97.6
--- NOTE | 2022-04-02 07:50 | P.PN ---
Date of Service: 04/01/22 Subjective Family at bedside. Patient prognosis is poor. Requesting comfort measures at this point. Do not want to withdraw care. Review of Systems is unable to be obtained Physical Examination - Vital Signs Reviewed - Physical Exam General: Unresponsive HEENT: Other ( Intubated and sedated) Respiratory: Rhonchi/gurgles Cardiovascular: Regular rate/rhythm, Normal S1 S2 Gastrointestinal: Normal bowel sounds, Soft and benign, Non-distended Musculoskeletal: No clubbing, No swelling Neurological: Other Assessment & Plan - Problems (Diagnosis) (1) Fecal impaction of colon Current Visit: Yes Status: Acute (2) COPD (chronic obstructive pulmonary disease) Current Visit: No Status: Chronic Qualifiers: (3) Chronic kidney disease, stage 3 Current Visit: No Status: Chronic Qualifiers: (4) Congestive heart failure (CHF) Onset Date: 06/15/17 Current Visit: No Status: Chronic Qualifiers: Heart failure type: diastolic Heart failure chronicity: chronic Qualified Code(s): I50.32 - Chronic diastolic (congestive) heart failure (5) Diabetes mellitus, type II Current Visit: No Status: Chronic Qualifiers: (6) HTN (hypertension) Current Visit: No Status: Chronic Qualifiers: (7) History of CVA (cerebrovascular accident) Current Visit: No Status: Chronic (8) Hyperlipidemia Current Visit: No Status: Chronic Qualifiers: (9) Aspiration pneumonia Current Visit: Yes Status: Acute (10) Septic shock Current Visit: Yes Status: Acute (11) Lactic acidosis Current Visit: Yes Status: Acute - Plan Continue with plan of care as mentioned below: 1. IVFs 2. Continue with vasopressor support; no additional vasopressors 3. Comfort measures at this time 4. Family at bedside and we have spoken to the who has the son at bedside. 5. Renal function stable 6. IV antibiotic therapy for aspiration pneumonia and colitis 7. Patient is a do not attempt resuscitation 8. Gi and DVT prophylaxis Discharge Plan: Home Plan to discharge in: Greater than 2 days - Advance Directives Does patient have a Living Will: No Does patient have a Durable POA for Healthcare: No - Code Status/Comfort Care Code Status: Do Not Attempt Resuscitat Critical Care: Yes Time Spent Managing PTS Care (In Minutes): 120
[2022-04-02] MEDS ORDERED: VANCOMYCIN 1 GM in NA CHLORIDE 0.9% 250 ML IVPB SCH (17:00)
--- OUTSIDE RECORDS SUMMARY | 2022-04-08 01:14 | XMS REPORT | Continuity of Care Document ---
:1940 Author Organization [facility] t Address [address] [place] [address] Care Team Providers Name Role Phone JOHNSON [...] Date Expiration Date Lauryn little UNITED MEDICARE [id number] 2021 O 00:00:00 Problems Condition Condition Condition [...] 9-11 it y of level level 00:00: [place] [facility] Acute on Acute on Disease Active Unive rs chronic chronic 910 [place]y of diastolic diastolic [place] congest[place] congestive 00 Me dical heart heart Branch failure failure Chest pain Chest pain Disease Active U nivers 7-07 ity of 00:00: Medical Branch Obesity Obesity Disease Active Overview: Univ ers 4-17 ICD10 ity of 00:00: Diagnosis Term Medical Activity Leader Branch Utility 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 U nivers unspecifie unspecifie 7-09 it y of d type d type 00:00: [place] diabetes diabetes Medica l mellitus mellitus 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, ions, uncontroll uncontroll ed(250.52) ed(250.52) HLD HLD Disease Active Overview: Univer s (hyperlipi (hyperlipi 3-09 ICD10 it y of demia) demia) 00:00: Diagnosis Term Medical Activity Leader Branch Utility Essential Essential Disease Active Uni [...] Known DA Active U [facility] -16 [place] 00:00: [address] No Known DA Active U [facility] 05-20 [place] 00:00: [address] NO KNOWN Drug Active Univers ALLERGIE Class ity of S [facility] NO KNOWN Allergy Active [facility] Social History Social Habit Start Date Stop Date Quantity Comments Source Tobacco Comment quit 30 years Univer sity of ago [facility] Alcohol Comment 3 drinks (vodka) Uni versity of nightly [facility] Sex Assigned At Universit y of [facility] Exposure to Unable to assess Univers ity of SARS-CoV-2 [facility] (event) [place] Tobacco use and 2020-05-30 2020-05-30 Never used Universit y of exposure 00:00:00 00:00:00 [facility] Alcohol intake 2020-05-30 2020-05-30 Current drinker Unive rsity of 00:00:00 00:00:00 of alcohol [facility] (finding) [place] Smoking Status Start Date Stop Date Source Never smoker [facility] Medications Ordered Filled Start Stop Current Ordering Indication Dosage Frequency Signature Comments Components Source Medication Medication Date Date Medication? Clinician (SIG) Name Name ASPIRIN 81 0 Yes once daily U nivers MG ORAL 9-16 ity of CHEW 22:57: [address] magnesium 2019-0 Yes 400mg Take 400 [...] 9-16 mouth. ity of ITAMIN D3 22:57: [place] (VITAMIN 45 Medical D-3 ORAL) Branch MULTIVITAMI 0 Yes Take by Un audra N 9-16 mouth. ity of W-MINERALS/ 22:57: [place] LUTEIN 45 Medical (CENTRUM Branch SILVER ORAL) ASPIRIN 81 2019-0 Yes once daily U nivers MG ORAL 9-16 ity of CHEW 22:57: [place] [address] Medical Branch magnesium 2020-0 Yes 400mg Take [...] daily. Medical per tablet Branch atorvastati Yes [id number] 20mg Take 1 Univers n 20 mg 9-16 tablet by ity of tablet 00:00: mouth at [place] 00 bedtime. Medical Branch primidone 2019-0 Yes [id number] 50mg Take 1 U nivers 50 mg 9-16 tablet by ity of tablet 00:00: mouth [place] 00 every 12 Medical (twelve) Branch hours. metoprolol 2019-0 Yes [id number] 25mg Take 1 Univers tartrate 25 9-16 tablet by ity of mg tablet 00:00: mouth 2 [place] 00 (two) Medical times Branch daily. sacubitriL- 2019-0 Yes [id number] 1{tbl} Take 1 Univers valsartan 9-16 tablet by ity o f 97-103 mg 00:00: mouth 2 [place] tablet 00 (two) Medical times Branch daily. levoFLOXaci 2019-0 Yes [id number] 500mg Take 1 Univers n 500 mg 9-16 tablet by ity of tablet 00:00: mouth [place] 00 every 24 Medical (twenty-fo Branch ur) hours. acidophilus 2020-0 Yes [id number] 1g Take 1 Univers 100 million 9-16 tablet by ity of cell tablet 00:00: mouth 2 Abilio as 00 (two) Medical times Branch daily. atorvastati 2020-0 Yes [id number] 20mg Take 1 Univers n 20 mg 9-16 tablet by ity of tablet 00:00: mouth at [place] 00 bedtime. Medical Branch primidone 2020-0 Yes [id number] 50mg Take 1 U nivers 50 mg 9-16 tablet by ity of tablet 00:00: mouth [place] 00 every 12 Medical (twelve) Branch hours. metoprolol 2020-0 Yes [id number] 25mg Take 1 Univers tartrate 25 9-16 tablet by ity of mg tablet 00:00: mouth 2 [place] 00 (two) Medical times Branch daily. sacubitriL- 2020-0 Yes [id number] 1{tbl} Take 1 Univers valsartan 9-16 tablet by ity o f 97-103 mg 00:00: mouth 2 [place] tablet 00 (two) Medical times Branch daily. levoFLOXaci 2020-0 Yes [id number] 500mg Take 1 Univers n 500 mg 9-16 tablet by ity of tablet 00:00: mouth [place] 00 every 24 Medical (twenty-fo Branch ur) hours. acidophilus 2020-0 Yes [id number] 1g Take 1 Univers 100 million 9-16 [...] 00 First dose Med ical mg on [facility] Branch 06/02/20 at 1100, Until Discontinu [...] First dose [place] mg 00 on [facility] 06/01/20 at Branch 2215, Until Discontinu ed, Routine bisacodyL 2019- No 10mg 10 mg, Unive rs (DULCOLAX) 06-02 Rectal, ity o f suppository 03:15: 01:59 QHS, 3 [place] as 10 mg 00 :00 doses, Medical First dose Branch on [place] 06/01/20 at 2215, Last dose on Tue06/03/20 at 2100, Routine epoetin 2019- 2020- No 4000U 4,000 Univers renetta-epbx 06-01 Units, ity of (RETACRIT) 19:45: 19:59 Subcutaneo [place] injection 00 :00 us, ONCE, Medic al 4,000 Units 1 dose, Branc h [place] 06/01/20 at 1445, Routine
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 Restricted medication : AKILAH ANDRE ANGELES furosemide 2019- 2020- No 40mg 40 mg, IV U nivers (LASIX) 06-01 Push, ity of injection 14:00: 17:48 DAILY, [place] 40 mg 00 :15 First dose Medical (after Branch last modificati on) on [place] 06/01/20 at 0900, Until Discontinu ed, LICO ferrous 2019-0 2020- No 325mg 325 mg, Unive rs sulfate 06-01 Oral, BID ity of tablet 325 13:00: 01:14 MEALS, [place] mg 00 :51 First dose Medical on [place] Branch 06/01/20 at 0800, Until Discontinu ed, Routine haloperidol 2020-0 Yes 5mg 5 mg, Slow Univers lactate 06-01 IV Push, ity of (HALDOL) 01:16: QHSPRN, [place] injection 5 44 Starting Medi mecca mg [facility] 05/31/20 at 2016, Until Discontinu ed, Routine, insomnia, psychosis, agitation piperacilli 2020-0 2020- No 2.25g 2.25 g, IV Univers n-tazobacta 06-01 Piggyback, i ty of m (ZOSYN) 00:45: 14:59 Q6H ABX, [place] as 2.25 g/50 00 :52 First dose Medi [place]cca mL RTU on [facility] 05/31/20 at 1945, Until Discontinu ed, 50 mL
Reas on for Anti-Infec tive: Documented Infection< br>Documen moshe Infection Site: Respirator y
Durat ion of Therapy: 10 days KCL 2020-0 2020- No 40meq 40 mEq, Univers (KLOR-CON 06-01 Oral, ity of M20) tablet 00:45: 01:23 ONCE, 1 [place] 40 mEq 00 :00 dose, [facility] Medical 05/31/20 at Branch 1945, Routine magnesium 2019-0 2020- No 2g 2 g, IV Univ ers sulfate in 06-01 Piggyback, it y of water 2 00:45: 01:23 ONCE, 1 [place] gram/50 mL 00 :00 dose, [facility] Medi mecca (4 %) 05/31/20 at [place] infusion 2 1944, g Routine sodium 2019-0 Yes 125mg 125 mg, IV Univ ers ferric 05-31 Piggyback, ity of gluconate 14:00: DAILY, [place] (FERRLECIT) 00 First dose Me dical 125 mg in on [facility] NaCl 0.9% 05/31/20 at (NS) 100 mL 0900, IV Until piggyback Discontinu ed, 100 mL
Facu lty member approving Restricted medication : HELENA KUMAR sulfur 2020-0 2020- No 5mL 5 mL, Univers hexafluorid 05-30 Intravenou i ty of e microsphr 19:00: 16:30 s, ONCE, 1 [place] (LUMASON) 00 :00 dose, Fri Medic al injection 5 05/30/20 at Br anch mL 1400, Routine
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 Restricted medication : [...] Tue Medica l tablet 500 05/30/20 at [facility] mg 0115, Until Discontinu ed, Routine cholecalcif [...] -11 Oral, ity of (TYLENOL) 06:01: Q6HPRN [place] tablet 650 34 Starting Medic al mg Tue Branch 05/30/20 at 0101, Until Discontinu ed, Routine, Temp > 38.5 C ondansetron 2020-0 Yes 4mg 4 mg, Slow Univers (ZOFRAN 9-11 IV Push, ity of (PF)) 06:01: Q6HPRN [place] injection 4 16 Starting Medi [place] mg [...] 1 [place] Puff 00 :00 dose, [facility] Medical 05/29/20 at Branch 2045, LICO
Is this order for a patient with suspected or confirmed COVID-19 infection? Yes atorvastati 2019- No [id number] 20mg Take 1 Univers n (LIPITOR) 01-27 tablet by it y of 20 mg 00:00: 00:00 mouth at [place] tablet 00 :00 bedtime. Medical Branch Insulin 2020- No [id number] 8U inject 8 U nivers Glargine 01-27 [...] directed ity of (ACCU-CHEK 00:00: [place] WILLIAM) [place] [id number] Medical Branch Blood-Gluco Yes Use as [facility] ers se Meter 4-07 directed ity of (ACCU-CHEK 00:00: [place] WILLIAM) [place] [address] Medical Branch EXFORGE 2020- No TAKE 1 [...] 20:55:00 156 mm[Hg] Univer sity of pressure [place] [facility] Diastolic blood 2020-06-04 20:55:00 85 mm[Hg] Unive rsity of pressure [facility] Respiratory rate 2020-06-04 20:55:00 18 /min Univ ersity of [facility] Oxygen saturation in 2020-06-04 20:55:00 92 /min University of Arterial blood by [facility] Pulse oximetry Branch Heart rate 2020-06-04 20:00:00 67 /min Universi ty of [facility] Body temperature 2020-06-04 20:00:00 36.06 Razia Univ ersity of [facility] Body weight 2020-06-03 06:15:00 65.998 kg Universi ty of [facility] BMI 2020-06-03 06:15:00 24.21 kg/m2 Universi ty of [facility] Body height 2020-05-30 06:15:00 165.1 cm Universi ty of [facility] Systolic blood 2020-06-04 20:55:00 156 mm[Hg] Univer sity of pressure [facility] Diastolic blood 2020-06-04 20:55:00 85 mm[Hg] Unive rsity of pressure [facility] Respiratory rate 2020-06-04 20:55:00 18 /min Univ ersity of [facility] Oxygen saturation in 2020-06-04 20:55:00 92 /min University of Arterial blood by [facility] Pulse oximetry Branch Heart rate 2020-06-04 20:00:00 67 /min Universi ty of [facility] Body temperature 2020-06-04 20:00:00 36.06 Razia Univ ersity of [facility] Body weight 2020-06-03 06:15:00 65.998 kg Universi ty of [facility] BMI 2020-06-03 06:15:00 24.21 kg/m2 Universi ty of [facility] Body height 2020-05-30 06:15:00 165.1 cm Universi ty [facility] Procedures Procedure Date / Time Performing Clinician Source Performed POCT GLUCOSE (AUTOMATED) 2020-06-04 21:56:00 Arben Julien Uni versity [facility] POCT GLUCOSE (AUTOMATED) 2020-06-04 16:48:00 Arben Julien Uni versity of [facility] XR CHEST 1 VW 2020-06-04 13:56:16 Vanessa Shah [facility] POCT GLUCOSE (AUTOMATED) 2020-06-04 12:44:00 Arben Julien Uni versity of [facility] POCT GLUCOSE (AUTOMATED) 2020-06-04 01:32:00 Arben Julien Uni versity of [facility] POCT GLUCOSE (AUTOMATED) 2020-06-03 21:46:00 Arben Julien Uni versity of [facility] Branch POCT GLUCOSE (AUTOMATED) 2020-06-03 16:54:00 Arben Julien Uni versity of [facility] POCT GLUCOSE (AUTOMATED) 2020-06-03 12:50:00 Arben Julien Uni versity of [facility] COMP. METABOLIC PANEL 2020-06-03 11:37:00 Ellen [facility] ([id number]) [facility] CBC WITH DIFF 2020-06-03 11:36:00 Sukhwinder Hughes [facility] POCT GLUCOSE (AUTOMATED) 2020-06-03 01:18:00 Arben Julien Uni versity of [facility] POCT GLUCOSE (AUTOMATED) 2020-06-02 21:22:00 Arben Julien Uni versity of [facility] FL MODIFIED BARIUM 2020-06-02 19:00:00 Rufus Goodwin [facility] POCT GLUCOSE (AUTOMATED) 2020-06-02 16:59:00 Arben Julien Uni versity of [facility] POCT GLUCOSE (AUTOMATED) 2020-06-02 13:26:00 Arben Julien Uni versity of [facility] Branch MAGNESIUM 2020-06-02 10:40:00 Buddy [facility] COMP. METABOLIC PANEL 2020-06-02 10:40:00 Buddy [facility] ([id number]) [facility] CBC WITH DIFF 2020-06-02 10:40:00 Arben Julien [facility] POCT GLUCOSE (AUTOMATED) 2020-06-01 21:51:00 Arben Julien Uni versity of [facility] POCT GLUCOSE (AUTOMATED) 2020-06-01 17:00:00 Arben Julien [facility] BLOOD CULTURE SCREEN 2020-06-01 15:42:00 Rufus Goodwin [facility] BLOOD CULTURE SCREEN 2020-06-01 15:29:00 Rufus Goodwin [facility] POCT GLUCOSE (AUTOMATED) 2020-06-01 13:18:00 Arben Julien [facility] MAGNESIUM 2020-06-01 10:14:00 Rufus Goodwin [facility] COMP. METABOLIC PANEL 2020-06-01 10:14:00 Rufus Goodwin [facility] ([id number]) [facility] ACUTE CARE VENOUS BLOOD 2020-06-01 10:14:00 Arben Julien [facility] CBC WITH DIFF 2020-06-01 10:14:00 Wily [facility] N-TERMINAL PRO-BNP 2020-06-01 10:14:00 Wily hilda [facility] POCT GLUCOSE (AUTOMATED) 2020-06-01 00:42:00 Wily hilda [facility] POCT GLUCOSE (AUTOMATED) 2020-05-31 21:51:00 Wily hilda [facility] AMMONIA, PLASMA 2020-05-31 17:01:00 Rufus Goodwin [facility] POCT GLUCOSE (AUTOMATED) 2020-05-31 16:59:00 Arben Julien [facility] URIC ACID 2020-05-31 08:32:00 Wily [facility] MAGNESIUM 2020-05-31 08:32:00 Wily [facility] TROPONIN I 2020-05-31 08:32:00 Wily [facility] COMP. METABOLIC PANEL 2020-05-31 08:32:00 Wily hilda [facility] ([id number]) [facility] CBC WITH DIFF 2020-05-31 08:32:00 Wily [facility] N-TERMINAL PRO-BNP 2020-05-31 08:32:00 Wily hilda [facility] POCT GLUCOSE (AUTOMATED) 2020-05-31 00:32:00 Arben Julien [facility] POCT GLUCOSE (AUTOMATED) 2020-05-30 20:44:00 Wily hilda [facility] POCT GLUCOSE (AUTOMATED) 2020-05-30 17:04:00 Arben Julien [facility] TROPONIN I 2020-05-30 16:25:00 Wily hilda [facility] ECHO ROUTINE W/DOPPLER 2020-05-30 16:08:22 Arben Julien [facility] POCT GLUCOSE (AUTOMATED) 2020-05-30 13:56:00 Arben Julien [facility] CT THORAX WO CONTRAST 2020-05-30 10:26:42 Arben Julien [facility] SEDIMENTATION RATE 2020-05-30 09:51:00 Wily hilda [facility] CBC WITH DIFF 2020-05-30 09:51:00 Wily [facility] URIC ACID 2020-05-30 08:34:00 Wily [facility] MAGNESIUM 2020-05-30 08:34:00 Wily [facility] CORTISOL AM 2020-05-30 08:34:00 Wily [facility] TROPONIN I 2020-05-30 08:34:00 Wily [facility] COMP. METABOLIC PANEL 2020-05-30 08:34:00 Wily hilda [facility] ([id number]) [facility] IRON PANEL 2020-05-30 08:34:00 Wily [facility] N-TERMINAL PRO-BNP 2020-05-30 08:34:00 Wily hilda [facility] LEGIONELLA URINARY 2020-05-30 08:29:00 Wily hilda [facility] ANTIGEN TST [facility] SODIUM, URINE RANDOM 2020-05-30 08:28:00 Wily hilda [facility] PROTEIN CREAT RATIO 2020-05-30 08:28:00 Wily hilda [facility] URINE RANDOM [facility] PNEUMOCOCCAL ANTIGEN 2020-05-30 08:27:00 Arben Julien [facility] OSMOLALITY URINE 2020-05-30 08:25:00 Wily hilda [facility] UREA NITROGEN, URINE 2020-05-30 08:25:00 Arben Julien [facility] RANDOM [facility] URINE CULTURE 2020-05-30 08:24:00 Arben Julien [facility] OSMOLALITY SERUM 2020-05-30 07:08:00 Wily hilda [facility] VITAMIN B12, LEVEL 2020-05-30 07:08:00 Arben Julien [facility] FOLATE 2020-05-30 07:08:00 Arben Julien [facility] PROTHROMBIN TIME / INR 2020-05-30 07:08:00 Arben Julien [facility] MYCOPLASMA PNEUMONIAE 2020-05-30 07:08:00 Arben Julien [facility] ANTIBODY, IGM [facility] VITAMIN D, 25-OH 2020-05-30 07:08:00 Arben Julien [facility] PROCALCITONIN 2020-05-30 07:08:00 Arben Julien [facility] BLOOD CULTURE SCREEN 2020-05-30 07:07:00 Arben Julien [facility] BLOOD CULTURE WORKUP 2020-05-30 07:07:00 Arben Julien [facility] BLOOD CULTURE WORKUP 2020-05-30 07:07:00 Arben Julien [facility] GRAM POSITIVE BLOOD 2020-05-30 07:07:00 [facility] PROBE-AEROBIC RESPIRATORY PANEL BY PCR 2020-05-30 05:20:00 Arben Julien [facility] COVID-19 (PCR MOLECULAR 2020-05-30 05:20:00 Arben Julien [facility] TESTING) [facility] EXTERNAL PROVIDER 2020-05-30 05:01:00 Doctor Unassigned, No Univ [facility] RECORDS Name Medical Branch URINALYSIS 2020-05-30 03:39:00 Trice Kraft [facility] XR CHEST 1 VW 2020-05-30 01:45:07 Trice Kraft [facility] CT HEAD WO CONTRAST 2020-05-30 01:34:53 Trice Kraft [facility] EKG-12 LEAD 2020-05-30 01:08:00 Trice Kraft [facility] AC ABG + LACTIC ACID 2020-05-30 01:06:00 Trice Kraft [facility] POCT GLUCOSE(AGE 2020-05-30 01:04:00 Trice Kraft [facility] >30DAYS) [facility] POCT GLUCOSE (AUTOMATED) 2020-05-30 01:03:00 [facility] 2020-05-30 00:59:00 Wily [facility] CREATINE KINASE 2020-05-30 00:59:00 Wily [facility] URIC ACID 2020-05-30 00:59:00 Wily [facility] MAGNESIUM 2020-05-30 00:59:00 Wily [facility] FERRITIN SERUM 2020-05-30 00:59:00 Wily [facility] TROPONIN I 2020-05-30 00:59:00 Trice Kraft [facility] THYROID STIMULATING 2020-05-30 00:59:00 Wily hilda [facility] HORMONE [facility] COMP. METABOLIC PANEL 2020-05-30 00:59:00 Trice Kraft [facility] ([id number]) [facility] LIPID PANEL 2020-05-30 00:59:00 Wily hilda [facility] ([id number])(TOTAL Medical [place] CHOLESTEROL, TRIGLYCERIDES, HDL) CBC WITH DIFF 2020-05-30 00:59:00 Trice Kraft [facility] GLYCOSYLATED HEMOGLOBIN 2020-05-30 00:59:00 Arben Julien [facility] (A1C) [facility] Branch N-TERMINAL PRO-BNP 2020-05-30 00:59:00 Trice Kraft [facility] COVID-19 (ID NOW RAPID 2020-05-30 00:59:00 Trice Kraft [facility] TESTING) Medical Branch EKG-12 LEAD 2020-05-30 00:39:36 rTice Kraft [facility] NOTICE OF PRIVACY 2020-05-29 23:34:11 Doctor Unassigned, No [facility] PRACTICES Name Medical Branch CONSENT/REFUSAL FOR 2020-05-29 23:33:17 Doctor Unassigned, No [facility] DIAGNOSIS AND TREATMENT Name Medical Branch Encounters Start End Encounter Admission Attending Care Care Encounter Source Date/Time Date/Time Type Type Clinicians Facility Department ID 2022-01-27 Inpatient ALONSO HU [facility] Surgery [id number] [facility] 14:58:54 2022-02-08 2022-02-16 Inpatient ALONSO HU [facility] Surgery [id number] [facility] 14:10:00 16:01:00 2022-02-09 2022-02-09 Outpatient BCM BC [id number] [facility] 00:00:00 23:59:00 [facility] 2022-02-08 2022-02-08 Outpatient BCM BCM [id number] [facility] 14:10:00 23:59:00 [facility] 2022-02-08 2022-02-08 Outpatient [facility] [id number] [facility] 00:00:00 00:00:00 2022-01-20 2022-01-25 Inpatient ER [facility] [id number] [facility] 01:13:00 14:52:00 [facility] Med 2022-01-20 2022-01-20 Outpatient BCM BCM [id number] [facility] 00:00:00 23:59:00 Colleg [facility] Medicin e 2020-06-05 2020-06-05 Transition Mary Kay Cerna [id number] Univers 00:00:00 00:00:00 of Care Cody Stover [id number] ity of [place] [id number] Keri katz [id number] 2020-06-05 2020-06-05 Transition Mary Kay Cerna [id number] 00:00:00 00:00:00 of Care Cody Stover [id number] [place] [id number] 2020-05-29 2020-06-04 [facility] 1.2.840. [id number] [facility] 18:50:00 17:57:00 [id number] [facility] [id number] [place] [id number] Branch 2020-05-29 2020-06-04 [facility] 1.2.840. [id number] 18:50:00 17:57:00 Encounter Arben Julien [id number] [place] [id number] [place] [id number] 2020-05-29 2020-05-29 Emergency X [facility] ERT [id number] [facility] 18:28:00 18:28:00 [facility] Results Test Description Test Time Test Comments Results Result [facility] Branch e Comments RAD, CHEST, 1 2022-02-16 while patient is VIEW, NON DEPT 10:25:00 intubated or has chest tubes.Reason for exam:->Status [facility] - post [facility]: SurgeryShould ENMA [...] Pérez Verified Date/Time: 02/16/2022 10:25:02 Reading Location: [facility] Radiology Reading Room PHORUS 2022-02-16 05:32:27 Test Item Value Reference Range Interpretation Comme nts PHOSPHORUS (BEAKER) (test code = 604) 1.9 mg/dL 2.3-4.7 L Technical Rep ID Junie VACA [id number] 05:32:26 Test Item Value Reference Range Interpretation Comments MAGNESIUM (BEAKER) (test code = 1.6 mg/dL 1.6-2.6 627) Technical Rep ID - NOLA LBASIC METABOLIC [id number] 05:32:25 Test Item Value Reference Range Interpretation [...] S NOT APPLICABLE FOR DIALYSIS PATIEN TS. Technical Rep ID - NOLA LCBC (HEMOGRAM ONLY)2022-02-16 05:05:53 [...] = 413) RAD, CHEST, 1 VIEW, NON [id number] 07:48:00while patient is intubated or has chest tubes.Reason for exam:->Status post CV SurgeryShould thisbe performed at the bedside?->Yes [facility] : 1940 Sex: [...] Signed: Leilani Pérezeport Verified Date/Time: 02/15/2022 07:48:22 [id number] 05:55:44 Test Item Value Reference Range Interpretation Comments MAGNESIUM (BEAKER) (test code = 1.5 mg/dL 1.6-2.6 L 627) Technical Rep ID Junie FAIRCHILD [id number] 05:55:44 Test Item Value Reference Range Interpretation Comments PHOSPHORUS (BEAKER) (test code = 1.7 mg/dL 2.3-4.7 L 604) Technical Rep ID Junie FAIRCHILD WBASIC METABOLIC [id number] 05:55:43 Test Item Value Reference Range Interpretation [...] S NOT APPLICABLE FOR DIALYSIS PATIEN TS. Technical Rep ID Junie FAIRCHILD WCBC (HEMOGRAM ONLY)2022-02-15 05:21:42 [...] = 413) RAD, CHEST, 1 VIEW, NON [id number] 07:59:00while patient is intubated or has chest tubes.Reason for exam:->Status post CV SurgeryShould thisbe performed at the bedside?->Yes [facility] : 1940 Sex: [...] Leilani Pérez MDReport Verified Date/Time: 02/14/2022 07:59:04 [id number] 05:25:33 Test Item Value Reference Range Interpretation Comments PHOSPHORUS (BEAKER) (test code = 2.0 mg/dL 2.3-4.7 L 604) Technical Rep ID - GURINDER WBASIC METABOLIC [id number] 05:25:32 Test Item Value Reference Range Interpretation [...] S NOT APPLICABLE FOR DIALYSIS PATIEN TS. Technical Rep ID - GURINDER [id number] 05:25:32 Test Item Value Reference Range Interpretation Comments MAGNESIUM (BEAKER) (test code = 1.4 mg/dL 1.6-2.6 L 627) Technical Rep AKOSUA FAIRCHILD WCBC (HEMOGRAM ONLY)2022-02-14 04:52:12 Test [...] (BEAKER) (test code = 413) HEPATIC FUNCTION [id number] 08:20:57 Test Item Value Reference Range Interpretation [...] (test code = 28 U/L 6-55 347) Technical Rep ID - HELEN GARCIAAD, CHEST, 1 VIEW, NON [id number] 07:55:00while patient is intubated or has chest tubes.Reason for exam:->Status post CV SurgeryShould thisbe performed at the bedside?->Yes [facility] : 1940 Sex: [...] Leilani Pérez MDReport Verified Date/Time: 02/13/2022 07:55:04 [id number] 07:17:48 Test Item Value Reference Range Interpretation Comments PHOSPHORUS (BEAKER) (test code = 2.2 mg/dL 2.3-4.7 L 604) Technical Rep ID - SHANITA MBASIC METABOLIC [id number] 07:17:47 Test Item Value Reference Range Interpretation [...] S NOT APPLICABLE FOR DIALYSIS PATIEN TS. Technical Rep ID - SHANITA [id number] 07:17:47 Test Item Value Reference Range Interpretation Comments MAGNESIUM (BEAKER) (test code = 1.6 mg/dL 1.6-2.6 627) Technical Rep ID - SHANITA MCBC (HEMOGRAM ONLY)2022-02-13 06:47:08 [...] (BEAKER) (test code = 413) BASIC METABOLIC [id number] 18:14:02 Test Item Value Reference Range Interpretation [...] S NOT APPLICABLE FOR DIALYSIS PATIEN TS. Technical Rep ID - BSRAD, CHEST, 1 VIEW, NON [id number] 09:32:00while patient is intubated or has chest tubes.Reason for exam:->Status post CV SurgeryShould thisbe performed at the bedside?->Yes [facility] : 1940 Sex: MFINAL REPORT Chest, 1 view, 02/12/2022 5:08 AM. History: Postop. Comparison: 02/11/2022. Discussion: The cardiac silhouette is stable. Bibasilar opacities are unchanged. There is no pneumothorax or pleural effusion. Supporting lines and tubes are unchanged. The soft tissuesand osseous structures are intact. IMPRESSION: No significant change. Signed: Jalen Edwardsepvivi Verified Date/Time: 02/12/2022 09:32:27 Reading Location: [facility] Radiology Reading Room [id number] 07:28:46 Test Item Value Reference Range Interpretation Comments PHOSPHORUS (BEAKER) (test code = 2.8 mg/dL 2.3-4.7 604) Technical Rep ID - DBBASIC METABOLIC [id number] 07:28:45 Test Item Value Reference Range Interpretation [...] S NOT APPLICABLE FOR DIALYSIS PATIEN TS. Technical Rep ID - [id number] 07:28:45 Test Item Value Reference Range Interpretation Comments MAGNESIUM (BEAKER) (test code = 1.5 mg/dL 1.6-2.6 L 627) Technical Rep ID - DBCBC (HEMOGRAM ONLY)2022-02-12 07:08:20 Test [...] = 413) RAD, CHEST, 1 VIEW, NON [id number] 07:22:00while patient is intubated or has chest tubes.Reason for exam:->Status post CV SurgeryShould thisbe performed at the bedside?->Yes [facility] 1940 Sex: MFINAL REPORT EXAMINATION: RAD, CHEST, 1 VIEW, NON DEPT INDICATION: Postoperative COMPARISON: Chest radiograph of the prior day FINDINGS: LINES/TUBES: Right IJ [place]-Dilia catheter has been removed with a right [...] tubes as above, with interval removal of [place]-Dilia catheter. Slightly improving right greater than left basilar opacities. Signed: Aubree Oteroort Verified Date/Time: 02/11/2022 07:22:59 Reading Location: [facility] Radiology Reading Room [id number] 06:24:12 Test Item Value Reference Range Interpretation Comments MAGNESIUM (BEAKER) (test code = 1.8 mg/dL 1.6-2.6 627) Technical Rep ID - [id number] 06:24:12 Test Item Value Reference Range Interpretation Comments PHOSPHORUS (BEAKER) (test code = 3.3 mg/dL 2.3-4.7 604) Technical Rep ID - BSBASIC METABOLIC [id number] 06:24:11 Test Item Value Reference Range Interpretation [...] S NOT APPLICABLE FOR DIALYSIS PATIEN TS. Technical Rep ID - BSCBC (HEMOGRAM ONLY)2022-02-11 06:01:14 Test [...] 0-0 (BEAKER) (test code = 413) POCT-GLUCOSE [id number] 17:35:30 Test Item Value Reference Range Interpretation Comments POC-GLUCOSE METER 157 mg/dL 70-110 H : TESTED A T [facility] 6720 (BEAKER) (test code = [place], 1538) [address]: Technical Rep/Techni diaz ID = [id number] for Cesar Torres (CELLAVISION MANUAL DIFF)2022-02-10 13:48:38 [...] CONCENTRATION Decreased (CELLAVISION)(BEAKER) (test code = 3438) Technical Rep ID - Roseann OverholtUser comments: Slide comments:CBC W/PLT COUNT & AUTO [id number] 13:48:37 Test Item Value Reference Range Interpretation [...] WBC 0-0 (BEAKER) (test code = 413) [id number] 13:31:32 Test Item Value Reference Range Interpretation Comments MAGNESIUM (BEAKER) (test code = 1.9 mg/dL 1.6-2.6 627) Technical Rep ID - [id number] 13:31:32 Test Item Value Reference Range Interpretation Comments PHOSPHORUS (BEAKER) (test code = 3.4 mg/dL 2.3-4.7 604) Technical Rep ID - ADMINBASIC METABOLIC [id number] 13:31:31 Test Item Value Reference Range Interpretation [...] S NOT APPLICABLE FOR DIALYSIS PATIEN TS. Technical Rep ID - ADMINLACTIC ACID, [id number] 13:24:59 Test Item Value Reference Range Interpretation Comments LACTATE BLOOD ARTERIAL (2) 1.3 mmol/L 0.5-2.2 (BEAKER) (test code = 2874) Technical Rep ID - ADMINBLOOD GAS, [id number] 13:17:20 Test Item Value Reference Range Interpretation [...] (BEAKER) (test code = 1819) 21.0 POCT-GLUCOSE [id number] 12:17:28 Test Item Value Reference Range Interpretation Comments POC-GLUCOSE METER 212 mg/dL 70-110 H : TESTED A T [facility] 6720 (BEAKER) (test code = [place], 1538) [address]: Technical Rep/Techni diaz ID = [id number] for Po tts, Laly MISCELLANEOUS LAB [id number] 09:24:20 Test Item Value Reference Range Interpretation Comments SCAN RESULT (test code = See scanned report. [id number]) See scanned reportRAD, CHEST, 1 VIEW, NON [id number] 08:18:00Reason for exam:->Status post CV Surgery post op day 0Should this be performed at the bedside?->[facility] 1940 Sex: MFINAL [...] Oquendo MDReport VerifiedDate/Time: 02/10/2022 08:18:32 Reading Location: [facility] Radiology Reading Room POCT-GLUCOSE [id number] 07:22:09 Test Item Value Reference Range Interpretation Comments POC-GLUCOSE METER 102 mg/dL 70-110 : TESTED A T [facility] 6720 ([employer]) (test code = MediklyAL [employer]ool [facility], 1538) [address]: Technical Rep/Techni diaz ID = [id number] for Po tts, Laly POCT-GLUCOSE [id number] 06:34:44 Test Item Value Reference Range Interpretation Comments POC-GLUCOSE METER 85 mg/dL 70-110 : TESTED A T [facility] 6720 (BEAKER) (test code = Secoo [facility], 1538) 67693: Technical Rep/Techni diaz ID = [id number] for NGUY EN, DUNG RAD, CHEST, 1 VIEW, NON [id number] 06:08:00while patient is intubated or has chest tubes.Reason for exam:->Status post CV SurgeryShould thisbe performed at the bedside?->Yes [facility] 1940 Sex: MFINAL REPORT RAD, CHEST, 1 VIEW, NON DEPT INDICATION: Status post CV Surgery COMPARISON: Prior day's exam FINDINGS: Portable frontal view of the chest. IMPRESSION: SupportLines: ET tube and enteric tube removed. [place]-Dilia catheter tip overlies the right pulmonary artery. Right chest tube is stable.Lungs and pleura: Increased bilateral pleural-parenchymal opacities. No p neumothorax.Heart and mediastinum: Stable contours. Additional findings: None. Signed: Martin Ayala MDReport Verified Date/Time: 02/10/2022 06:08:41 [id number] 04:15:39 Test Item Value Reference Range Interpretation Comments MAGNESIUM (BEAKER) (test code = 2.0 mg/dL 1.6-2.6 627) Technical Rep ID - SHANITA [id number] 04:15:39 Test Item Value Reference Range Interpretation Comments PHOSPHORUS (BEAKER) (test code = 3.3 mg/dL 2.3-4.7 604) Technical Rep ID - SHANITA MBASIC METABOLIC [id number] 04:15:38 Test Item Value Reference Range Interpretation [...] S NOT APPLICABLE FOR DIALYSIS PATIEN TS. Technical Rep ID - SHANITA MLACTIC ACID, [id number] 04:05:11 Test Item Value Reference Range Interpretation Comments LACTATE BLOOD ARTERIAL (2) 0.8 mmol/L 0.5-2.2 (BEAKER) (test code = 2874) Technical Rep ID - SHANITA MCBC (HEMOGRAM ONLY)2022-02-10 04:00:32 [...] 0-0 (BEAKER) (test code = 413) POCT-GLUCOSE [id number] 02:46:41 Test Item Value Reference Range Interpretation Comments POC-GLUCOSE METER 128 mg/dL 70-110 H : TESTED Ishaan T [facility] 6720 (BEAKER) (test code = [place], 1538) [address]: Technical Rep/Techni diaz ID = [id number] for NG RICA, DUNG POCT-GLUCOSE [id number] 00:38:12 Test Item Value Reference Range Interpretation Comments POC-GLUCOSE METER 138 mg/dL 70-110 H : TESTED A T [facility] 6720 (BEAKER) (test code = [facility], 1538) 68[address]: Technical Rep/Techni diaz ID = [id number] for NG RICA, DUNG POCT-GLUCOSE [id number] 23:17:27 Test Item Value Reference Range Interpretation Comments POC-GLUCOSE METER 141 mg/dL 70-110 H : TESTED A T [facility] 6720 (BEAKER) (test code = [facility], 1538) 22579: Technical Rep/Techni diaz ID = [id number] for NG RICA, DUNG POCT-GLUCOSE [id number] 22:20:14 Test Item Value Reference Range Interpretation Comments POC-GLUCOSE METER 151 mg/dL 70-110 H : TESTED A T [facility] 6720 (BEAKER) (test code = [facility], 1538) 73797: Technical Rep/Techni diaz ID = [id number] for NG RICA, DUNG LACTIC ACID, [id number] 21:08:39 Test Item Value Reference Range Interpretation Comments LACTATE BLOOD ARTERIAL (2) 1.6 mmol/L 0.5-2.2 (BEAKER) (test code = 2874) Technical Rep ID - BSBLOOD GAS, [id number] 20:52:38 Test Item Value Reference Range Interpretation [...] (BEAKER) (test code = 1819) 36.0 POCT-GLUCOSE [id number] 20:21:03 Test Item Value Reference Range Interpretation Comments POC-GLUCOSE METER 155 mg/dL 70-110 H : TESTED A T [facility] 6720 (BEAKER) (test code = [facility], 1538) [address]: Technical Rep/Techni diaz ID = [id number] for NG LALITHA STRAUSS BLOOD GAS, [id number] 18:55:30 Test Item Value Reference Range Interpretation [...] (BEAKER) (test code = 1819) 40.0 GLUCOSE-STAT [id number] 18:55:30 Test Item Value Reference Range Interpretation Comments GLUCOSE RANDOM (BEAKER) (test code 169 mg/dL 70-110 H = 652) POCT-GLUCOSE [id number] 18:02:09 Test Item Value Reference Range Interpretation Comments POC-GLUCOSE METER 157 mg/dL 70-110 H : TESTED A T [facility] [address] (BEAKER) (test code = [facility], 1538) 74[address]: Technical Rep/Techni diaz ID = [id number] for BR CAROLE GAN LACTIC ACID, [id number] 16:37:27 Test Item Value Reference Range Interpretation Comments LACTATE BLOOD 2.0 mmol/L 0.5-2.2 Specimen sligh tly ARTERIAL (2) (BEAKER) hemoly zed (test code = 2874) Technical Rep ID - BSGLUCOSE-STAT [id number] 16:37:22 Test Item Value Reference Range Interpretation Comments GLUCOSE RANDOM (BEAKER) (test code 169 mg/dL 70-110 H = 652) BLOOD GAS, [id number] 16:37:21 Test Item Value Reference Range Interpretation [...] CONCENTRATION Adequate (CELLAVISION)(BEAKER) (test code = 3438) Technical Rep ID - [id number] ID - Sangeetha Francisco comments: Slide comments:BASIC METABOLIC [id number] 15:14:24 Test Item Value Reference Range Interpretation [...] S NOT APPLICABLE FOR DIALYSIS PATIEN TS. Technical Rep ID - [id number] 15:14:07 Test Item Value Reference Range Interpretation Comments MAGNESIUM (BEAKER) (test code = 2.0 mg/dL 1.6-2.6 627) Technical Rep ID - [id number] 15:14:07 Test Item Value Reference Range Interpretation Comments PHOSPHORUS (BEAKER) (test code = 2.0 mg/dL 2.3-4.7 L 604) Technical Rep ID - [id number] 15:04:40 Test Item Value Reference Range Interpretation Comments PARTIAL THROMBOPLASTIN TIME 35.9 seconds 22.5-36.0 (BEAKER) (test code = 760) PROTHROMBIN [id number] 15:04:03 Test Item Value Reference Range Interpretation Comments PROTIME (BEAKER) 16.2 seconds 11.9-14.2 H (test code = 759) INR (BEAKER) (test 1.32 See_Comment [Automat ed message] code = 370) The system Abloomy generated this result transmitted ref erence range: <=5.90. The reference range was not used to int erpret this result as normal/abnormal . RECOMMENDED COUMADIN/WARFARIN INR THERAPY RANGESSTANDARD DOSE: 2.0 - 3.0 Includes: PROPHYLAXIS forvenous thrombosis, systemic embolization; TREATMENT for venous thrombosis and/or pulmonary embolus.HIGH RISK: Target INR is 2.5-3.5 for patients with mechanical heart valves.LACTIC ACID, [id number] 15:03:00 Test Item Value Reference Range Interpretation Comments LACTATE BLOOD ARTERIAL (2) 1.3 mmol/L 0.5-2.2 (BEAKER) (test code = 2874) Technical Rep ID - BSCBC W/PLT COUNT & AUTO [id number] 15:00:31 Test Item Value Reference Range Interpretation [...] 0-0 (BEAKER) (test code = 413) CALCIUM, [id number] 14:48:27 Test Item Value Reference Range Interpretation Comments CALCIUM IONIZED (BEAKER) (test 1.04 mmol/L 1.12-1.27 L code = 698) PH, BLOOD (BEAKER) (test code = 7.35 1810) BLOOD GAS, [id number] 14:48:12 Test Item Value Reference Range Interpretation [...] (test code = 1819) 60.0 OXYGEN SATURATION, [id number] 14:47:33 Test Item Value Reference Range Interpretation Comments O2 SATURATION (MEASURED) (BEAKER) 84.4 % (test code = 1455) CBC W/PLT COUNT & AUTO [id number] 14:41:20 Test Item Value Reference Range Interpretation [...] H PERCENT (BEAKER) (test code = 2801) [id number] 13:18:44 Test Item Value Reference Range Interpretation Comments ACTIVATED CLOTTING TIME 136 sec : 74 -137 seconds, (BEAKER) (test code = Michelle ne: TESTED AT 441) [facility] 67[address] [facility], [facility] 30: Technical Rep/Techni diaz ID = [id number] for OTRIN ZUNIGA KATINA [id number] 13:18:43 Test Item Value Reference Range Interpretation Comments ACTIVATED CLOTTING TIME 535 sec : 74 -137 seconds, (BEAKER) (test code = Baseli ne: TESTED AT 441) [address], [facility] 30: Technical Rep/Techni diaz ID = [id number] for CA STRO, SONJA [id number] 13:18:42 Test Item Value Reference Range Interpretation Comments ACTIVATED CLOTTING TIME 654 sec : 74 -137 seconds, (BEAKER) (test code = Baseli ne: TESTED AT 441) [address], [facility] 30: Technical Rep/Techni diaz ID = [id number] for CA STRO, SONJA [id number] 13:18:42 Test Item Value Reference Range Interpretation Comments ACTIVATED CLOTTING TIME 696 sec : 74 -137 seconds, (BEAKER) (test code = Baseli ne: TESTED AT 441) [address], [facility] 30: Technical Rep/Techni diaz ID = [id number] for CA STRO, SONJA [id number] 13:18:41 Test Item Value Reference Range Interpretation Comments ACTIVATED CLOTTING TIME 696 sec : 74 -137 seconds, (BEAKER) (test code = Baseli ne: TESTED AT 441) [address], [facility] 30: Technical Rep/Techni diaz ID = [id number] for CA STRO, SONJA [id number] 12:54:23 Test Item Value Reference Range Interpretation Comments FIBRINOGEN LEVEL (BEAKER) (test 435 mg/dl 225-434 H code = 658) PROTHROMBIN [id number] 12:54:06 Test Item Value Reference Range Interpretation Comments PROTIME (BEAKER) 18.0 seconds 11.9-14.2 H (test code = 759) INR (BEAKER) (test 1.52 See_Comment [Automat ed message] code = 370) The system Abloomy generated this result transmitted ref erence range: <=5.90. The reference range was not used to int erpret this result as normal/abnormal . RECOMMENDED COUMADIN/WARFARIN INR THERAPY RANGESSTANDARD DOSE: 2.0 - 3.0 Includes: PROPHYLAXIS forvenous thrombosis, systemic embolization; TREATMENT for venous thrombosis and/or pulmonary embolus.HIGH RISK: Target INR is 2.5-3.5 for patients with mechanical heart valves.PLATELET [id number] 12:40:20 Test Item Value Reference Range Interpretation Comments PLATELET COUNT (BEAKER) (test 179 K/CU MM 150-450 code = 756) Technical Rep ID - [id number]-STAT [id number] 12:32:34 Test Item Value Reference Range Interpretation Comments GLUCOSE RANDOM (BEAKER) (test code 243 mg/dL 70-110 H = 652) HGB/HCT (H&H) - STAT [id number] 12:32:34 Test Item Value Reference Range Interpretation Comments HEMOGLOBIN (BEAKER) (test code = 9.0 GM/DL 13.0-16.8 L 410) HEMATOCRIT (BEAKER) (test code = 26.0 % 40.0-50.0 L 411) BLOOD GAS, [id number] 12:32:33 Test Item Value Reference Range Interpretation [...] (test code = 1819) 100.0 SODIUM NA-STAT [id number] 12:32:33 Test Item Value Reference Range Interpretation Comments SODIUM (BEAKER) (test code = 381) 131 meq/L 136-145 L POTASSIUM-STAT [id number] 12:32:17 Test Item Value Reference Range Interpretation Comments POTASSIUM (BEAKER) (test code = 3.8 meq/L 3.6-5.5 379) GLUCOSE-STAT [id number] 11:50:14 Test Item Value Reference Range Interpretation Comments GLUCOSE RANDOM (BEAKER) (test code 263 mg/dL 70-110 H = 652) HGB/HCT (H&H) - STAT [id number] 11:50:14 Test Item Value Reference Range Interpretation Comments HEMOGLOBIN (BEAKER) (test code = 7.6 GM/DL 13.0-16.8 L 410) HEMATOCRIT (BEAKER) (test code = 22.0 % 40.0-50.0 L 411) BLOOD GAS, [id number] 11:50:13 Test Item Value Reference Range Interpretation [...] (test code = 1819) 73.0 SODIUM NA-STAT [id number] 11:50:13 Test Item Value Reference Range Interpretation Comments SODIUM (BEAKER) (test code = 381) 129 meq/L 136-145 L POTASSIUM-STAT [id number] 11:50:02 Test Item Value Reference Range Interpretation Comments POTASSIUM (BEAKER) (test code = 4.8 meq/L 3.6-5.5 379) GLUCOSE-STAT [id number] 11:14:52 Test Item Value Reference Range Interpretation Comments GLUCOSE RANDOM (BEAKER) (test code 249 mg/dL 70-110 H = 652) HGB/HCT (H&H) - STAT [id number] 11:14:52 Test Item Value Reference Range Interpretation Comments HEMOGLOBIN (BEAKER) (test code = 7.5 GM/DL 13.0-16.8 L 410) HEMATOCRIT (BEAKER) (test code = 22.0 % 40.0-50.0 L 411) BLOOD GAS, [id number] 11:14:51 Test Item Value Reference Range Interpretation [...] (test code = 1819) 85.0 SODIUM NA-STAT [id number] 11:14:51 Test Item Value Reference Range Interpretation Comments SODIUM (BEAKER) (test code = 381) 129 meq/L 136-145 L POTASSIUM-STAT [id number] 11:13:51 Test Item Value Reference Range Interpretation Comments POTASSIUM (BEAKER) (test code = 5.0 meq/L 3.6-5.5 379) HGB/HCT (H&H) - STAT [id number] 10:55:39 Test Item Value Reference Range Interpretation Comments HEMOGLOBIN (BEAKER) (test code = 7.3 GM/DL 13.0-16.8 L 410) HEMATOCRIT (BEAKER) (test code = 21.0 % 40.0-50.0 L 411) SODIUM NA-STAT [id number] 10:55:38 Test Item Value Reference Range Interpretation Comments SODIUM (BEAKER) (test code = 381) 129 meq/L 136-145 L GLUCOSE-STAT [id number] 10:55:38 Test Item Value Reference Range Interpretation Comments GLUCOSE RANDOM (BEAKER) (test code 183 mg/dL 70-110 H = 652) BLOOD GAS, [id number] 10:55:37 Test Item Value Reference Range Interpretation [...] (BEAKER) (test code = 1819) 100.0 POTASSIUM-STAT [id number] 10:55:23 Test Item Value Reference Range Interpretation Comments POTASSIUM (BEAKER) (test code = 3.8 meq/L 3.6-5.5 379) GLUCOSE-STAT [id number] 09:02:47 Test Item Value Reference Range Interpretation Comments GLUCOSE RANDOM (BEAKER) (test code 174 mg/dL 70-110 H = 652) HGB/HCT (H&H) - STAT [id number] 09:02:47 Test Item Value Reference Range Interpretation Comments HEMOGLOBIN (BEAKER) (test code = 10.7 GM/DL 13.0-16.8 L 410) HEMATOCRIT (BEAKER) (test code = 31.0 % 40.0-50.0 L 411) BLOOD GAS, [id number] 09:02:46 Test Item Value Reference Range Interpretation [...] (test code = 1819) 100.0 SODIUM NA-STAT [id number] 09:02:46 Test Item Value Reference Range Interpretation Comments SODIUM (GAEL) (test code = 381) 132 meq/L 136-145 L POTASSIUM-STAT [id number] 09:01:48 Test Item Value Reference Range Interpretation Comments POTASSIUM (GAEL) (test code = 3.7 meq/L 3.6-5.5 379) HEMOGLOBIN [id number] 08:53:38 Test Item Value Reference Range Interpretation Comments HEMOGLOBIN A1C 7.7 % See_Comment H [Automated m essage] ELECTROPHORESIS (GAEL) The system which (test code = 3811) generated this result transmitted ref erence range: <=5.6%. The reference range was not used to int erpret this result as normal/abnormal . "The A1c is measured using a [facility]-certified method. HbA1c value equal to or greater than 6.5% as thediagnosis cutoff for diabetes. An HbA1c value of 5.7- 6.4% indicates increased risk for diabetes (prediabetes)."Technical Rep ID - ADMOperator ID - ADMSARS-COV2/RT-PCR ([facility])2022-02-09 07:17:40 Test Item Value Reference Range Interpretation Comments SARS-COV2/RT-PCR Negative Negative The SARS-Co V-2 target (test code = nucleic acids a re not [id number]) detected in thi s specimen. Negative result [...] revoked sooner. Fact Sheet for Healthcare Providers: https://www.uiu/Documents/Xpert%20Xpress%20SARS%20CoV-2/Fact%20Sheets/302-3802%20SARS-COV -2%20HEALTHCARE%20PROVIDERS%20FACT%20SHEET.pdf Fact Sheet for Healthcare Patients: https://www.[employer]/Documents/Xpert %20Xpress%20SARS%20CoV-2/Fact%20Sheets/302-3801%52OIFJ-BQY-9%20PATIENT%20FACT%20 SHEET.pdfURINALYSIS W/ [id number] 18:08:55 Test Item Value Reference Range Interpretation [...] = 1521) SOURCE(BEAKER) (test code = 2795) Technical Rep ID - [auto]Technical Rep ID - techBASIC METABOLIC [id number] 16:04:23 Test Item Value Reference Range Interpretation [...] S NOT APPLICABLE FOR DIALYSIS PATIEN TS. Technical Rep ID - [id number] 16:01:10 Test Item Value Reference Range Interpretation Comments PHOSPHORUS (BEAKER) (test code = 2.5 mg/dL 2.3-4.7 604) Technical Rep ID - BSLIPID [id number] 16:01:10 Test Item Value Reference Range Interpretation [...] Borderline 130-159 High 160-189 Very High >=190 Technical Rep ID - [id number] 16:01:09 Test Item Value Reference Range Interpretation Comments MAGNESIUM (BEAKER) (test code = 2.2 mg/dL 1.6-2.6 627) Technical Rep ID - BSCBC W/PLT COUNT & AUTO [id number] 15:48:35 Test Item Value Reference Range Interpretation [...] 0-1 PERCENT (BEAKER) (test code = 2801) [id number] 15:32:17 Test Item Value Reference Range Interpretation Comments PARTIAL THROMBOPLASTIN TIME 38.8 seconds 22.5-36.0 H (BEAKER) (test code = 760) PROTHROMBIN TIME/[id number] 15:31:59 Test Item Value Reference Range Interpretation Comments PROTIME (BEAKER) 13.2 seconds 11.9-14.2 (test code = 759) INR (BEAKER) (test 1.02 See_Comment [Automat ed message] code = 370) The system Abloomy generated this result transmitted ref erence range: [...] Interpretation Comments SCAN RESULT (test code = 1650428) PHOSPHATIDYLETHANOL, [id number] 11:24:39 Test Item Value Reference Range Interpretation Comments PHOSPHATIDYLETHANOL (PETH) See scanned (test code = 7295253) report See scanned reportPOCT-GLUCOSE [id number] 09:57:09 Test Item Value Reference Range Interpretation Comments POC-GLUCOSE METER 216 mg/dL 70-110 H : TESTED A T [facility] 6720 (BEAKER) (test code = LATOYA LYON HI, 1538) [address]: Technical Rep/Techni diaz ID = [id number] for Aleksey mun[place] (pca2)[employer] BASIC METABOLIC [id number] 05:33:08 Test Item Value Reference Range Interpretation [...] S NOT APPLICABLE FOR DIALYSIS PATIEN TS. Technical Rep ID - PIAYA LCBC W/PLT COUNT & AUTO [id number] 04:37:52 Test Item Value Reference Range Interpretation [...] PERCENT (BEAKER) (test code = 2801) POCT-GLUCOSE [id number] 16:00:26 Test Item Value Reference Range Interpretation Comments POC-GLUCOSE METER 399 mg/dL 70-110 H : TESTED A T [facility] 6720 (BEAKER) (test code = [place], 1538) [address]: Technical Rep/Techni diaz ID = [id number] for Maribel Rhoades BASIC METABOLIC [id number] 06:39:45 Test Item Value Reference Range Interpretation [...] S NOT APPLICABLE FOR DIALYSIS PATIEN TS. Technical Rep ID - PIAYA LCBC W/PLT COUNT & AUTO [id number] 05:29:49 Test Item Value Reference Range Interpretation [...] PERCENT (AKER) (test code = 2801) POCT-GLUCOSE [id number] 21:12:45 Test Item Value Reference Range Interpretation Comments POC-GLUCOSE METER 156 mg/dL 70-110 H : Notified RN/MD: ([facility]) (test code = TESTED AT [place] [address]) [facility], [address]: Technical Rep/Techni diaz ID = [id number] for HAZEL CHUN POCT-GLUCOSE [id number] 19:36:30 Test Item Value Reference Range Interpretation Comments POC-GLUCOSE METER 209 mg/dL 70-110 H : Notified RN/MD: (GAEL) (test code = TESTED AT [place] [address]) [facility], [address]: Technical Rep/Techni diaz ID = [id number] for HAZEL CHUN POCT-GLUCOSE [id number] 16:34:24 Test Item Value Reference Range Interpretation Comments POC-GLUCOSE METER 414 mg/dL 70-110 HH : Notified RN/MD: TESTED ([facility]) (test code AT [address] = 1538) [facility], [address]: Technical Rep/Techni diaz ID = [id number] for Miryam brock, Rajashree POCT-GLUCOSE [id number] 12:12:54 Test Item Value Reference Range Interpretation Comments POC-GLUCOSE METER 180 mg/dL 70-110 H : TESTED [facility] T [facility] 67[facility] ([facility]) (test code [facility], = 1538) [address]: Technical Rep/Techni diaz ID = [id number] for Bhag delmy, Rajashree POCT-GLUCOSE [id number] 07:53:32 Test Item Value Reference Range Interpretation Comments POC-GLUCOSE METER 263 mg/dL 70-110 H : TESTED A T [facility] 6720 (BEAKER) (test code [facility], = 1538) [address]: Technical Rep/Techni diaz ID = [id number] for Anabel Silverio COMPREHENSIVE METABOLIC [id number] 07:29:57 Test Item Value Reference Range Interpretation [...] S NOT APPLICABLE FOR DIALYSIS PATIEN TS. Technical Rep ID - SHANITA MSpecimen slightly ictericCBC W/PLT COUNT & AUTO [id number] 07:13:58 Test Item Value Reference Range Interpretation [...] PERCENT (BEAKER) (test code = 2801) POCT-GLUCOSE [id number] 21:11:42 Test Item Value Reference Range Interpretation Comments POC-GLUCOSE METER 138 mg/dL 70-110 H : Notified RN/MD: (BEAKER) (test code = TESTED AT [place] [id number] 1538) [facility], [address]: Technical Rep/Techni diaz ID = [id number] for HAZEL CHUN POCT-GLUCOSE [id number] 16:54:38 Test Item Value Reference Range Interpretation Comments POC-GLUCOSE METER 327 mg/dL 70-110 H : TESTED A T [facility] 6720 (BEAKER) (test code [facility], = 1538) [address]: Technical Rep/Techni diaz ID = [id number] for WILS ON, SABIHASTANIE HEPATIC FUNCTION [id number] 08:53:43 Test Item Value Reference Range Interpretation [...] code = 359 U/L 6-55 H 347) Technical Rep ID - DBSpecimen slightly ictericPOCT-GLUCOSE [id number] 08:02:49 Test Item Value Reference Range Interpretation Comments POC-GLUCOSE METER 262 mg/dL 70-110 H : TESTED A T [facility] 6720 (BEAKER) (test code [facility], = 1538) [address]: Technical Rep/Techni diaz ID = [id number] for WILS ON, SHASTANIE BASIC METABOLIC [id number] 05:00:34 Test Item Value Reference Range Interpretation [...] S NOT APPLICABLE FOR DIALYSIS PATIEN TS. Technical Rep ID - CLAUDIO GSpecimen slightly ictericCBC W/PLT COUNT & AUTO [id number] 04:57:06 Test Item Value Reference Range Interpretation [...] (BEAKER) (test code = 2801) U/S, RENAL, [id number] 00:08:00Reason for exam:->[facility] 1940 Sex: MFINAL [...] [place] MDR[place] Verified Date/Time: 01/22/2022 00:08:17 POCT-GLUCOSE [id number] 21:45:31 Test Item Value Reference Range Interpretation Comments POC-GLUCOSE METER 258 mg/dL 70-110 H : TESTED A T [facility] 6720 (BEAKER) (test code = [place], 1538) [address]: Technical Rep/Techni diaz ID = [id number] for STACEY GARRETT CREATININE, RANDOM [id number] 19:56:51 Test Item Value Reference Range Interpretation Comments CREATININE URINE (BEAKER) (test 23.7 mg/dL code = 375) Reference Range: No NormalsOperator ID - DBPROTEIN, RANDOM [id number] 19:56:51 Test Item Value Reference Range Interpretation Comments PROTEIN, URINE (BEAKER) (test code = 62 mg/dL 0-14 H 1569) Technical Rep ID - DBURINALYSIS W/ [id number] 19:47:32 Test Item Value Reference Range Interpretation [...] = 1521) SOURCE(BEAKER) (test code = 2795) Technical Rep ID - [auto]Technical Rep ID - techPOCT-GLUCOSE [id number] 16:23:46 Test Item Value Reference Range Interpretation Comments POC-GLUCOSE METER 270 mg/dL 70-110 H : TESTED A T [facility] 6720 (BEAKER) (test code = [facility], 1538) [address]: Technical Rep/Techni diaz ID = [id number] for DEONNA GREENE, JENNIFFER KAMAR TITER AND [id number] 11:55:46 Test Item Value Reference Range Interpretation Comments KAMAR TITER (BEAKER) (test code = :40 1541) KAMAR PATTERN (BEAKER) (test code = Homogeneous 1781) ANTI-NUCLEAR ANTIBODY (KAMAR)2022-01-21 11:55:40 Test Item Value Reference Range Interpretation Comments ANTI-NUCLEAR ANTIBODY (KAMAR) (BEAKER) Positive Negative A (test code = 418) Test performed by IFA method.POCT-GLUCOSE [id number] 11:43:49 Test Item Value Reference Range Interpretation Comments POC-GLUCOSE METER 225 mg/dL 70-110 H : TESTED A T [facility] 6720 (BEAKER) (test code = [facility], 1538) [address]: Technical Rep/Techni diaz ID = [id number] for ELIZABETH DUFFY HEPATIC FUNCTION [id number] 10:49:28 Test Item Value Reference Range Interpretation [...] code = 455 U/L 6-55 H 347) Technical Rep ID - BSSpecimen moderately ictericPOCT-GLUCOSE [id number] 08:08:00 Test Item Value Reference Range Interpretation Comments POC-GLUCOSE METER 172 mg/dL 70-110 H : TESTED A T [facility] 6720 (BEAKER) (test code = [place], 1538) [address]: Technical Rep/Techni diaz ID = [id number] for ELIZABETH DUFFY CBC W/PLT COUNT & AUTO [id number] 05:10:56 Test Item Value Reference Range Interpretation [...] (BEAKER) (test code = 2801) BASIC METABOLIC [id number] 05:03:58 Test Item Value Reference Range Interpretation [...] S NOT APPLICABLE FOR DIALYSIS PATIEN TS. Technical Rep ID - SHANITA MSpecimen slightly [id number] 04:54:21 Test Item Value Reference Range Interpretation Comments MAGNESIUM (BEAKER) (test code = 1.9 mg/dL 1.6-2.6 627) Technical Rep ID - SHANITA MU/S, ABDOMINAL, WITH [id number] 00:51:00Reason for exam:->[facility] 1940 Sex: MFINAL [...] Marie Ward Verified Date/Time: 01/21/2022 00:51:44 POCT-GLUCOSE [id number] 21:06:06 Test Item Value Reference Range Interpretation Comments POC-GLUCOSE METER 248 mg/dL 70-110 H : TESTED A T [facility] 6720 (BEAKER) (test code = [place], 1538) [address]: Technical Rep/Techni diaz ID = [id number] for STACEY GARRETT HEPATITIS B CORE ANTIBODY, [id number] 18:10:17 Test Item Value Reference Range Interpretation Comments HEPATITIS B CORE TOTAL ANTIBODY Reactive Nonreactive A (BEAKER) (test code = 497) Technical Rep ID - BSOperator ID - BSOperator ID - BSHEPATITIS C [id number] 17:50:30 Test Item Value Reference Range Interpretation Comments HEPATITIS C ANTIBODY (BEAKER) Nonreactive Nonreactive (test code = 367) Technical Rep ID - BSHEPATITIS B SURFACE [id number] 17:50:24 Test Item Value Reference Range Interpretation Comments HEPATITIS B SURFACE ANTIGEN (2) Nonreactive Nonreactive (BEAKER) (test code = 2585) Specimen is considered negative for HBsAg.HEPATITIS B SURFACE [id number] 17:50:24 Test Item Value Reference Range Interpretation Comments HEPATITIS B SURFACE ANTIBODY 830.9 mIU/mL <8.0 H (BEAKER) (test code = 647) Technical Rep ID - BSHEPATITIS B CORE ANTIBODY, [id number] 17:36:49 Test Item Value Reference Range Interpretation Comments HEPATITIS B CORE IGM ANTIBODY Nonreactive Nonreactive (BEAKER) (test code = 645) Technical Rep ID - BSHEPATITIS A ANTIBODY, [id number] 17:36:49 Test Item Value Reference Range Interpretation Comments HEPATITIS A IGG ANTIBODY (BEAKER) Nonreactive Nonreactive (test code = 2797) Technical Rep ID - BSALPHA FETOPROTEIN (AFP), TUMOR [id number] 17:36:48 Test Item Value Reference Range Interpretation Comments ALPHA-FETOPROTEIN (BEAKER) (test 3.7 ng/mL <10.0 code = 1094) Technical Rep ID - BSIMMUNOGLOBULIN G (IGG)2022-01-20 17:15:56 Test Item Value Reference Range Interpretation Comments IMMUNOGLOBULIN G (IGG) 1081 mg/dL See_Comment [Aut omated message] (BEAKER) (test code = The sy stem which 427) generated this result transmit moshe reference range : 540-1,822. The reference range was not used to interpret this result as normal/abnormal . Technical Rep ID - BSIRON, TIBC, % SAT. (WITHOUT FERRITIN)2022-01-20 17:15:56 Test Item Value Reference Range Interpretation Comments IRON (BEAKER) (test code = 547) 94.0 ug/dL 40.0-160.0 TOTAL IRON BINDING CAPACITY 245 ug/dL 250-450 L (BEAKER) (test code = 769) IRON % SATURATION (2) (BEAKER) 38 % 20-55 (test code = 2590) Technical Rep ID - BSPOCT-GLUCOSE [id number] 16:55:44 Test Item Value Reference Range Interpretation Comments POC-GLUCOSE METER 226 mg/dL 70-110 H : TESTED A T [facility] 6720 (BEAKER) (test code = LATOYA Edgar [facility], 1538) [address]: Technical Rep/Techni diaz ID = [id number] for Lauryn MONIQUE [id number]-1-[id number] 16:54:50 Test Item Value Reference Range Interpretation Comments ALPHA-1 ANTITRYPSIN (BEAKER) 162.50 mg/dL 90.00-200.00 (test code = 502) Technical Rep ID - [id number] 16:52:28 Test Item Value Reference Range Interpretation Comments FERRITIN (BEAKER) (test code = 1286.44 ng/mL 5.00-275.00 H 361) Technical Rep ID - BSPOCT-GLUCOSE [id number] 11:44:46 Test Item Value Reference Range Interpretation Comments POC-GLUCOSE METER 207 mg/dL 70-110 H : TESTED A T [facility] 6720 (BEAKER) (test code [facility], = 1538) [address]: Technical Rep/Techni diaz ID = [id number] for RED MCKEE HEMOGLOBIN [id number] 10:30:47 Test Item Value Reference Range Interpretation [...] 5.7- 6.4% indicates increased risk for diabetes (prediabetes)."Technical Rep ID - ALTAGRACIA MCCLURE, 2 [id number] 10:28:00Reason for exam:->concern for heart failureDiagnosis:->Shortness of breath [facility] 1940 Sex: MFINAL [...] the right lower lung. Signed: Meghan Poole [facility] Verified Date/Time: 01/20/2022 10:28:13 Reading Location: [facility] Reading Room POCT- GLUCOSE [id number] 07:47:02 Test Item Value Reference Range Interpretation Comments POC-GLUCOSE METER 173 mg/dL 70-110 H : TESTED A T [facility] 6720 (BEAKER) (test code VINCE [facility], = 1538) [address]: Technical Rep/Techni diaz ID = [id number] for RED MCKEE POCT-GLUCOSE [id number] 03:51:00 Test Item Value Reference Range Interpretation Comments POC-GLUCOSE METER 188 mg/dL 70-110 H : TESTED A T [facility] 6720 (BEAKER) (test code = LATOYA Egdar [facility], 1538) [address]: Technical Rep/Techni diaz ID = [id number] for HAZEL CHUN BASIC METABOLIC [id number] 03:35:28 Test Item Value Reference Range Interpretation [...] S NOT APPLICABLE FOR DIALYSIS PATIEN TS. Technical Rep ID - SHANITA MSpecimen moderately ictericB-TYPE NATRIURETIC FACTOR (BNP) 2022-01-20 03:16:05 Test Item Value Reference Range Interpretation Comments B-TYPE NATRIURETIC PEPTIDE (BEAKER) 319 pg/mL 0-100 H (test code = 700) Technical Rep ID - SHANITA MHIGH SENSITIVITY TROPONIN [id number] 03:16:00 Test Item Value Reference Range Interpretation Comments HIGH SENSITIVITY 35 pg/ml See_Comment [Automated message] TROPONIN I (test code = The system which 5871214) generated this result transmitted ref erence range: <=35. Th e reference range was not used to int erpret this result as normal/abnormal . Technical Rep ID - SHANITA [facility] STAT High Sensitivity Troponin-I results should be used in conjunction with other diagnostic information such as ECG, clinical observations and information, and patient symptoms to aid in the diagnosis of OR.HEPATIC FUNCTION [id number] 03:14:30 Test Item Value Reference Range Interpretation [...] code = 666 U/L 6-55 H 347) Technical Rep ID - SHANITA MSpecimen moderately [id number] 03:14:29 Test Item Value Reference Range Interpretation Comments MAGNESIUM (BEAKER) (test code = 1.6 mg/dL 1.6-2.6 627) Technical Rep ID - SHANITA MLIPID [id number] 03:14:29 Test Item Value Reference Range Interpretation [...] Borderline 130-159 High 160-189 Very High >=190 Technical Rep AKOSUA DIEHL MSpecimen moderately ictericCBC W/PLT COUNT & AUTO [id number] 02:51:43 Test Item Value Reference Range Interpretation [...] Interpretation Comments POCT GLU (test code = 8885303090) 133 mg/dL 70-110 H Lab Interpretation (test code = Abnormal 04232-5) [facility]2020-[facility] 17:13:00 Test Item Value Reference Range Interpretation Comments POCT GLU (test code = 1634597840) 154 mg/dL 70-110 H Lab Interpretation (test code = Abnormal 77451-0) [facility] CHEST 1 [id number] 14:00:56HISTORY: Follow-up of CHF. TECHNIQUE: AP view [...] ifany, residual pulmonary edema seen at this time.[facility], Radiant Results Inft User - [...] residual pulmonary edema seen at this time.[facility] GLUCOSE (AUTOMATED)2020-06-04 13:19:00 Test Item Value Reference Range Interpretation Comments POCT GLU (test code = 0719846360) 98 mg/dL 70-110 Lab Interpretation (test code = Normal 42124-6) [facility] GLUCOSE (AUTOMATED)2020-06-04 01:35:00 Test Item Value Reference Range Interpretation Comments POCT GLU (test code = 0323273145) 192 mg/dL 70-110 H Lab Interpretation (test code = Abnormal 05832-7) [facility] GLUCOSE (AUTOMATED)2020-06-03 21:51:00 Test Item Value Reference Range Interpretation Comments POCT GLU (test code = 9429242271) 98 mg/dL 70-110 Lab Interpretation (test code = Normal 80226-9) [facility] GLUCOSE (AUTOMATED)2020-06-03 17:28:00 Test Item Value Reference Range Interpretation Comments POCT GLU (test code = 4510948016) 195 mg/dL 70-110 H Lab Interpretation (test code = Abnormal 00342-1) [facility] GLUCOSE (AUTOMATED)2020-06-03 13:43:00 Test Item Value Reference Range Interpretation Comments POCT GLU (test code = 0915549829) 98 mg/dL 70-110 Lab Interpretation (test code = Normal 81817-3) [facility] WITH [id number] 13:10:00 Test Item Value Reference Range Interpretation [...] RDW-SD (test code = 46.4 fL 38.5-51.6 84532-2) RDW-CV (test code = 13.7 % 12.1-15.4 788-0) PLT (test code = See_Comment L [Automated 777-3) message] The sy stem which generated this result transmitted reference range : 150 - 328 10*3/ ?L. The reference r martin was not used to interpret this result as normal/abnormal . MPV (test code = 10.5 fL 9.8-13 66823-4) NRBC/100 WBC (test See_Comment [Automat ed code = 9629426621) message] The system which generated this result transmitted reference range : 0.0 - 10.0 /100 WBCs. The refer ence range was not u sed to interpret th is result as normal/abnormal . NRBC x10^3 (test code <0.01 See_Comment [Auto mated = 9979557710) message] The s ystem which generated this result transmitted reference range : 10*3/?L. The reference range was not used to interpret this result as normal/abnormal . GRAN MAT (NEUT) % 55.9 % (test code = 770-8) IMM GRAN % (test code 0.40 % = 7773355393) LYMPH % (test code = 16.5 % 736-9) MONO % (test code = 12.4 % 5905-5) EOS % (test code = 14.0 % 713-8) BASO % (test code = 0.8 % 706-2) GRAN MAT x10^3(ANC) 1.35 10*3/uL 1.99-6.95 L (test code = 4324121334) IMM GRAN x10^3 (test <0.03 0-0.06 code = 1162846588) LYMPH x10^3 (test code 0.40 10*3/uL 1.09-3.23 L = 731-0) MONO x10^3 (test code 0.30 10*3/uL 0.36-1.02 L = 742-7) EOS x10^3 (test code = 0.34 10*3/uL 0.06-0.53 711-2) BASO x10^3 (test code <0.03 0.01-0.09 = 704-7) Lab Interpretation Abnormal (test code = 59726-4) [facility]. METABOLIC PANEL (93868)2020-06-03 12:46:00 Test Item Value Reference Range Interpretation Comments NA (test code = 136 mmol/L 135-145 4798250112) K (test code = 3.9 mmol/L 3.5-5 6810213912) CL (test code = 100 mmol/L 98-108 1404372699) CO2 TOTAL (test code = 27 mmol/L 23-31 3384400064) AGAP (test code = 2-16 3167946491) BUN (test code = 37 mg/dL 7-23 H 6914929361) GLUCOSE (test code = 87 mg/dL 70-110 8781735942) CREATININE (test code = 1.85 mg/dL 0.6-1.25 H 2699688483) TOTAL BILI (test code = 0.4 mg/dL 0.1-1.4 2174348611) CALCIUM (test code = 9.4 mg/dL 8.6-10.6 8572351906) T PROTEIN (test code = 6.3 g/dL 6.3-8.2 1762306953) ALBUMIN (test code = 3.2 g/dL 3.5-5 L 7738412885) ALK PHOS (test code = 58 U/L 34-122 8175448306) ALTv (test code = 22 U/L 5-50 1742-6) AST(SGOT) (test code = 31 U/L 13-40 7170685565) eGFR Calculation mL/min/1.73m2 (Non-) (test code = 0373703632) eGFR Calculation mL/min/1.73m2 () (test code = 1803755991) EMIR (test code = EMIR) Association of [...] tests). Lab Interpretation Abnormal (test code = 28896-6) [facility]2020-06-03 01:56:00 Test Item Value Reference Range Interpretation Comments POCT GLU (test code = 3234659862) 152 mg/dL 70-110 H Lab Interpretation (test code = Abnormal 43191-1) [facility] CampusMOD BARIUM SWALLOW, (COOKALEXANDER)2020-06-02 23:24:43 Flash laryngeal penetration [...] nectar thick liquid, puree or jewelry solids. [facility], Radiant Results Inft User- 06/02/2020 [...] to the speech pathologist's report for further details.[facility] GLUCOSE (AUTOMATED)2020-06-02 21:24:00 Test Item Value Reference Range Interpretation Comments POCT GLU (test code = 129 mg/dL 70-110 H Notifi ed Provider 9401270822) Lab Interpretation (test Abnormal code = 66554-5) [facility] GLUCOSE (AUTOMATED)2020-06-02 17:12:00 Test Item Value Reference Range Interpretation Comments POCT GLU (test code = 159 mg/dL 70-110 H Notifi ed Provider 8270366392) Lab Interpretation (test Abnormal code = 65173-2) [facility] WITH [id number] 14:34:00 Test Item Value Reference Range Interpretation [...] RDW-SD (test code = 46.7 fL 38.5-51.6 57678-3) RDW-CV (test code = 13.9 % 12.1-15.4 788-0) PLT (test code = See_Comment [Automated 777-3) message] The sy stem which generated this result transmitted reference range : 150 - 328 10*3/ ?L. The reference r martin was not used to interpret this result as normal/abnormal . MPV (test code = 10.4 fL 9.8-13 12062-6) NRBC/100 WBC (test See_Comment [Automat ed code = 8910351291) message] The system which generated this result transmitted reference range : 0.0 - 10.0 /100 WBCs. The refer ence range was not u sed to interpret th is result as normal/abnormal . NRBC x10^3 (test code <0.01 See_Comment [Auto mated = 3213399055) message] The s ystem which generated this result transmitted reference range : 10*3/?L. The reference range was not used to interpret this result as normal/abnormal . GRAN MAT (NEUT) % 58.9 % (test code = 770-8) IMM GRAN % (test code 0.40 % = 0551698967) LYMPH % (test code = 11.3 % 736-9) MONO % (test code = 10.8 % 5905-5) EOS % (test code = 17.3 % 713-8) BASO % (test code = 1.3 % 706-2) GRAN MAT x10^3(ANC) 1.36 10*3/uL 1.99-6.95 L (test code = 2373124118) IMM GRAN x10^3 (test <0.03 0-0.06 code = 8242723763) LYMPH x10^3 (test code 0.26 10*3/uL 1.09-3.23 L = 731-0) MONO x10^3 (test code 0.25 10*3/uL 0.36-1.02 L = 742-7) EOS x10^3 (test code = 0.40 10*3/uL 0.06-0.53 711-2) BASO x10^3 (test code 0.03 10*3/uL 0.01-0.09 = 704-7) Lab Interpretation Abnormal (test code = 80828-9) [facility]2020-06-02 13:45:00 Test Item Value Reference Range Interpretation Comments POCT GLU (test code = 9486253522) 105 mg/dL 70-110 Lab Interpretation (test code = Normal 72782-5) [facility] CampusBLOOD CULTURE [id number] 13:39:00 Test Item Value Reference Range Interpretation Comments Blood Culture Staphylococcus Organism elvia ntified Workup (test epidermidis by DNA probeFor code = 600-7) susceptibility results, refer to culture # - [id number] Gram stain Gram positive cocci Anaerobi c Bottle (test code = 664-3) [facility]COMP. METABOLIC PANEL (63770)2020-06-02 13:10:00 Test Item Value Reference Range Interpretation Comments NA (test code = 133 mmol/L 135-145 L 7722442081) K (test code = 3.4 mmol/L 3.5-5 L 7017133301) CL (test code = 96 mmol/L 98-108 L 5614957336) CO2 TOTAL (test code = 28 mmol/L 23-31 1787602743) AGAP (test code = 2-16 0124893715) BUN (test code = 34 mg/dL 7-23 H 7129884191) GLUCOSE (test code = 135 mg/dL 70-110 H 3486536740) CREATININE (test code = 1.83 mg/dL 0.6-1.25 H 9417608818) TOTAL BILI (test code = 0.4 mg/dL 0.1-1.3 0151168592) CALCIUM (test code = 9.4 mg/dL 8.6-10.6 4428023978) T PROTEIN (test code = 6.0 g/dL 6.3-8.2 L 5652682447) ALBUMIN (test code = 3.1 g/dL 3.5-5 L 1139001664) ALK PHOS (test code = 52 U/L 34-122 6095721639) ALTv (test code = 25 U/L 5-50 1742-6) AST(SGOT) (test code = 31 U/L 13-40 6852962571) eGFR Calculation mL/min/1.73m2 (Non-) (test code = 1647644902) eGFR Calculation mL/min/1.73m2 () (test code = 0026136984) EMIR (test code = EMIR) Association of [...] tests). Lab Interpretation Abnormal (test code = 34184-2) [facility]IUM2020-09-14 13:10:00 Test Item Value Reference Range Interpretation Comments MAGNESIUM (test code = 7379191189) 1.8 mg/dL 1.7-2.4 Lab Interpretation (test code = Normal 36314-9) [facility] CampusMYCOPLASMA PNEUMONIAE ANTIBODY, [id number] 11:34:00 Test Item Value Reference Range Interpretation [...] an 12 months post-infection. Performed By: YUMIKO amado[address] [place] [address]S aboratory Director: Julisa Choi MD [Aut omated message] The sy stem which generated this result transmit moshe reference range : <=0.76. The reference r martin was not used to int erpret this result as normal/abnormal . [facility] CampusBLOOD CULTURE [id number] 22:31:00 Test Item Value Reference Range Interpretation Comments Blood Culture-Aerobic Culture positive. No growth AA P revious (test code = 37465-7) See Blood prelim inary Culture Workup verified resu lt for additional was Culture I n information. Progress on 05/30/2020 at 03 19 CDT Blood Culture positive. No growth AA Previous Culture-Anaerobic See Blood preliminar y (test code = 52380-3) Culture Workup veri fied result for additional was Culture I n information. Progress on 05/30/2020 at 03 19 CDT Lab Interpretation Abnormal (test code = 51834-3) [facility] GLUCOSE (AUTOMATED)2020-06-01 21:59:00 Test Item Value Reference Range Interpretation Comments POCT GLU (test code = 8502142993) 101 mg/dL 70-110 Lab Interpretation (test code = Normal 85776-9) [facility] GLUCOSE (AUTOMATED)2020-06-01 17:53:00 Test Item Value Reference Range Interpretation Comments POCT GLU (test code = 3535748055) 184 mg/dL 70-110 H Lab Interpretation (test code = Abnormal 17659-6) [facility] [id number] 17:20:00 Test Item Value Reference Range Interpretation Comments Blood Culture-Aerobic Culture positive. No growth AA P revious (test code = 43970-2) See Blood prelim inary Culture Workup verified resu lt for additional was Culture I n information. Progress on 05/30/2020 at 03 19 CDT Blood Culture positive. No growth AA Previous Culture-Anaerobic See Blood preliminar y (test code = 89767-9) Culture Workup veri fied result for additional was Culture I n information. Progress on 05/30/2020 at 03 19 CDT Lab Interpretation Abnormal (test code = 07229-4) [facility] GLUCOSE (AUTOMATED)2020-06-01 13:22:00 Test Item Value Reference Range Interpretation Comments POCT GLU (test code = 4242393007) 109 mg/dL 70-110 Lab Interpretation (test code = Normal 12555-1) [facility] WITH [id number] 11:12:00 Test Item Value Reference Range Interpretation [...] RDW-SD (test code = 46.0 fL 38.5-51.6 58482-0) RDW-CV (test code = 13.8 % 12.1-15.4 788-0) PLT (test code = See_Comment L [Automated 777-3) message] The sy stem which generated this result transmitted reference range : 150 - 328 10*3/ ?L. The reference r martin was not used to interpret this result as normal/abnormal . MPV (test code = 10.3 fL 9.8-13 60156-1) NRBC/100 WBC (test See_Comment [Automat ed code = 3210970304) message] The system which generated this result transmitted reference range : 0.0 - 10.0 /100 WBCs. The refer ence range was not u sed to interpret th is result as normal/abnormal . NRBC x10^3 (test code <0.01 See_Comment [Auto mated = 6141090016) message] The s ystem which generated this result transmitted reference range : 10*3/?L. The reference range was not used to interpret this result as normal/abnormal . GRAN MAT (NEUT) % 71.9 % (test code = 770-8) IMM GRAN % (test code 0.30 % = 0000105284) LYMPH % (test code = 8.0 % 736-9) MONO % (test code = 10.5 % 5905-5) EOS % (test code = 8.4 % 713-8) BASO % (test code = 0.9 % 706-2) GRAN MAT x10^3(ANC) 2.32 10*3/uL 1.99-6.95 (test code = 4388301512) IMM GRAN x10^3 (test <0.03 0-0.06 code = 6140344088) LYMPH x10^3 (test code 0.26 10*3/uL 1.09-3.23 L = 731-0) MONO x10^3 (test code 0.34 10*3/uL 0.36-1.02 L = 742-7) EOS x10^3 (test code = 0.27 10*3/uL 0.06-0.53 711-2) BASO x10^3 (test code 0.03 10*3/uL 0.01-0.09 = 704-7) Lab Interpretation Abnormal (test code = 17251-9) [id number] 11:07:00 Test Item Value Reference Range Interpretation Comments NT-proBNP (test code 72773 pg/mL See_Comment H [Autom ated = 4107681433) message] The system which generated this result transmitted reference range : <=450. The reference range was not used to interpret this result as normal/abnormal . EMIR (test code = EMIR) Biotin has been reported to cause a negative bias, interpret results relative to patient's use of biotin. Lab Interpretation Abnormal (test code = 61552-5) [facility] MET[facility]OLIC PAN[facility] (51067)2020-06-01 11:03:00 Test Item Value Reference Range Interpretation Comments NA (test code = 136 mmol/L 135-145 2804688634) K (test code = 3.9 mmol/L 3.5-5 8645648125) CL (test code = 97 mmol/L 98-108 L 9376160076) CO2 TOTAL (test code = 30 mmol/L 23-31 7319352376) AGAP (test code = 2-16 8102420201) BUN (test code = 34 mg/dL 7-23 H 4345255288) GLUCOSE (test code = 112 mg/dL 70-110 H 0996010620) CREATININE (test code = 1.81 mg/dL 0.6-1.25 H 9554116399) TOTAL BILI (test code = 0.5 mg/dL 0.1-1.4 4871146262) CALCIUM (test code = 9.5 mg/dL 8.6-10.6 8703141207) T PROTEIN (test code = 6.2 g/dL 6.3-8.2 L 6767807928) ALBUMIN (test code = 3.2 g/dL 3.5-5 L 5149991800) ALK PHOS (test code = 58 U/L 34-122 2653453564) ALTv (test code = 32 U/L 5-50 1742-6) AST(SGOT) (test code = 38 U/L 13-40 3662843385) eGFR Calculation mL/min/1.73m2 (Non-) (test code = 0404531093) eGFR Calculation mL/min/1.73m2 () (test code = 4762193656) EMIR (test code = EMIR) Association of [...] tests). Lab Interpretation Abnormal (test code = 15432-4) [facility]2020-09-13 11:03:00 Test Item Value Reference Range Interpretation Comments MAGNESIUM (test code = 0392109519) 2.0 mg/dL 1.7-2.4 Lab Interpretation (test code = Normal 86371-1) [facility] CARE VENOUS BLOOD [id number] 10:21:00 Test Item Value Reference Range Interpretation Comments PH (test code = 7.32-7.42 7675277543) PCO2 GIFTY (test code = See_Comment [Auto mated message] The 7255101768) system which [employer] nerated this result transmit moshe reference range : 41 - 51 mmHg. The refer ence range was not used to interpret this result as normal/abnormal . PO2 GIFTY (test code = See_Comment [Autom ated message] The 8107963415) system which [employer] nerated this result transmit moshe reference range : 25 - 40 mmHg. The refer ence range was not used to interpret this result as normal/abnormal . HCO3 GFITY (test code = See_Comment [Auto mated message] The 8922385307) system which [employer] nerated this result transmit moshe reference range : 24 - 28 mEq/L. The refe rence range was not used to interpret this result as normal/abnormal . AC VBE(BEAKER) (test mEq/L code = 3759716662) [facility] GLUCOSE (AUTOMATED)2020-06-01 01:53:00 Test Item Value Reference Range Interpretation Comments POCT GLU (test code = 2646619443) 124 mg/dL 70-110 H Lab Interpretation (test code = Abnormal 38807-6) [facility] GLUCOSE (AUTOMATED)2020-05-31 22:35:00 Test Item Value Reference Range Interpretation Comments POCT GLU (test code = 5345631565) 105 mg/dL 70-110 Lab Interpretation (test code = Normal 07138-9) [facility] GLUCOSE (AUTOMATED)2020-05-31 17:52:00 Test Item Value Reference Range Interpretation Comments POCT GLU (test code = 9610658984) 106 mg/dL 70-110 Lab Interpretation (test code = Normal 22511-1) [facility]AMMONIA, [id number] 17:33:00 Test Item Value Reference Range Interpretation Comments AMMONIA (test code = 1974732709) <9 9-33 L Lab Interpretation (test code = Abnormal 01181-6) [facility] CampusGRAM POSITIVE BLOOD PATHOGENS DNA [id number] 14:44:00 Test Item Value Reference Range Interpretation Comments Coagulase Negative Positive Negative A Staphylococcus (test code = 41017-1) EMIR (test code = EMIR) Coagulase negative [...] contact the Antimicrobial Stewardship Program with questions.Pager: ?[phone] Testing included eleven identification and three resistance marker targets. Lab Interpretation Abnormal (test code = 82412-8) [facility])2020-05-31 13:09:00 Test Item Value Reference Range Interpretation Comments POCT GLU (test code = 7761656916) 154 mg/dL 70-110 H Lab Interpretation (test code = Abnormal 84559-1) [facility]URINE [id number] 12:11:00 Test Item Value Reference Range Interpretation Comments URINE CULTURE (test No aerobic growth (< code = 630-4) 1000 CFU/mL) [facility]MINAL [id number] 11:51:00 Test Item Value Reference Range Interpretation Comments NT-proBNP (test code 71257 pg/mL See_Comment H [Autom ated = 9076946663) message] The system which generated this result transmitted reference range : <=450. The reference range was not used to interpret this result as normal/abnormal . EMIR (test code = EMIR) Biotin has been reported to cause a negative bias, interpret results relative to patient's use of biotin. Lab Interpretation Abnormal (test code = 29360-7) [facility]URIC [id number] 11:25:00 Test Item Value Reference Range Interpretation Comments URIC ACID (test code = 4806194195) 9.0 mg/dL 3.6-8 H Lab Interpretation (test code = Abnormal 55198-6) [facility] WITH [id number] 11:02:00 Test Item Value Reference Range Interpretation [...] RDW-SD (test code = 47.7 fL 38.5-51.6 52309-5) RDW-CV (test code = 14.0 % 12.1-15.4 788-0) PLT (test code = See_Comment L [Automated 777-3) message] The sy stem which generated this result transmitted reference range : 150 - 328 10*3/ ?L. The reference r martin was not used to interpret this result as normal/abnormal . MPV (test code = 10.5 fL 9.8-13 13731-1) NRBC/100 WBC (test See_Comment [Automat ed code = 8420500254) message] The system which generated this result transmitted reference range : 0.0 - 10.0 /100 WBCs. The refer ence range was not u sed to interpret th is result as normal/abnormal . NRBC x10^3 (test code <0.01 See_Comment [Auto mated = 1159942721) message] The s ystem which generated this result transmitted reference range : 10*3/?L. The reference range was not used to interpret this result as normal/abnormal . GRAN MAT (NEUT) % 81.0 % (test code = 770-8) IMM GRAN % (test code 0.40 % = 6856477512) LYMPH % (test code = 4.8 % 736-9) MONO % (test code = 11.5 % 5905-5) EOS % (test code = 1.7 % 713-8) BASO % (test code = 0.6 % 706-2) GRAN MAT x10^3(ANC) 4.23 10*3/uL 1.99-6.95 (test code = 4094978052) IMM GRAN x10^3 (test <0.03 0-0.06 code = 6514435132) LYMPH x10^3 (test code 0.25 10*3/uL 1.09-3.23 L = 731-0) MONO x10^3 (test code 0.60 10*3/uL 0.36-1.02 = 742-7) EOS x10^3 (test code = 0.09 10*3/uL 0.06-0.53 711-2) BASO x10^3 (test code 0.03 10*3/uL 0.01-0.09 = 704-7) Lab Interpretation Abnormal (test code = 76542-0) [facility] [id number] 10:45:00 Test Item Value Reference Range Interpretation Comments TROPONIN I (test 0.167 ng/mL See_Comment H [Automated code = 6374649088) message] The system which generated this result [...] ? Lab Interpretation Abnormal (test code = 28066-2) [facility]. METABOLIC PANEL (32490)2020-05-31 10:35:00 Test Item Value Reference Range Interpretation Comments NA (test code = 133 mmol/L 135-145 L 2540752493) K (test code = 3.4 mmol/L 3.5-5 L 0342088651) CL (test code = 95 mmol/L 98-108 L 5241198890) CO2 TOTAL (test code = 29 mmol/L 23-31 8856731396) AGAP (test code = 2-16 4298612817) BUN (test code = 36 mg/dL 7-23 H 3539302461) GLUCOSE (test code = 136 mg/dL 70-110 H 9773774591) CREATININE (test code = 1.71 mg/dL 0.6-1.25 H 7452524840) TOTAL BILI (test code = 0.8 mg/dL 0.1-1.2 7332322024) CALCIUM (test code = 9.4 mg/dL 8.6-10.6 3931314064) T PROTEIN (test code = 6.5 g/dL 6.3-8.2 2161791768) ALBUMIN (test code = 3.4 g/dL 3.5-5 L 4303368909) ALK PHOS (test code = 59 U/L 34-122 0008416358) ALTv (test code = 35 U/L 5-50 1742-6) AST(SGOT) (test code = 42 U/L 13-40 H 3253281557) eGFR Calculation mL/min/1.73m2 (Non-) (test code = 4261597232) eGFR Calculation mL/min/1.73m2 () (test code = 9145566179) EMIR (test code = EMIR) Association of [...] tests). Lab Interpretation Abnormal (test code = 49532-8) [facility]2020-09-12 10:35:00 Test Item Value Reference Range Interpretation Comments MAGNESIUM (test code = 2985478142) 1.4 mg/dL 1.7-2.4 L Lab Interpretation (test code = Abnormal 93653-6) [facility] GLUCOSE (AUTOMATED)2020-05-30 21:17:00 Test Item Value Reference Range Interpretation Comments POCT GLU (test code = 5855982591) 105 mg/dL 70-110 Lab Interpretation (test code = Normal 30875-3) [facility] CampusPNEUMOCOCCAL [id number] 19:20:00 Test Item Value Reference Range Interpretation Comments S. pneumoniae antigen Positive Negative A (test code = 9455282731) EMIR (test code = EMIR) S. pneumoniae vaccine may give false positive results in urine with this assay in the 48 hours following vaccination. Lab Interpretation (test Abnormal code = 10134-2) [facility] CampusLEGIONELLA URINARY ANTIGEN [id number] 19:20:00 Test Item Value Reference Range Interpretation Comments Legionella Urinary Negative Negative Antigen (test code = 6910227123) EMIR (test code = EMIR) Negative for [...] test. Lab Interpretation (test Normal code = 56891-7) [facility] CampusCORTISOL [id number] 18:48:00 Test Item Value Reference Range Interpretation Comments SHAYY AM (test code = 23.8 ug/dL 4.5-23 H 1096190601) EMIR (test code = EMIR) Biotin has been reported to cause a positive bias, interpret results relative to patient's use of biotin. Lab Interpretation (test Abnormal code = 41096-9) [facility] GLUCOSE (AUTOMATED)2020-05-30 17:17:00 Test Item Value Reference Range Interpretation Comments POCT GLU (test code = 0783355411) 117 mg/dL 70-110 H Lab Interpretation (test code = Abnormal 54441-4) [facility] CampusTROPONIN [id number] 17:14:00 Test Item Value Reference Range Interpretation Comments TROPONIN I (test 0.222 ng/mL See_Comment H [Automated code = 7207981141) message] The system which generated this result [...] ? Lab Interpretation Abnormal (test code = 15645-8) [facility] CampusOSMOLALITY [id number] 16:53:00 Test Item Value Reference Range Interpretation Comments OSMO U (test code = See_Comment [Automa moshe message] 4810761330) The system [employer] generated this result transmitted ref erence range: 50-1,100 mOsm/kg. The re ference range was not u sed to interpret this result as normal/abnor mal. Lab Interpretation (test Normal code = 14120-6) [facility] CampusVITAMIN D, [id number] 16:43:00 Test Item Value Reference Range Interpretation Comments VIT D 25OH (test code = 29 ng/mL 25-80 07149-3) EMIR (test code = EMIR) Deficiency: <20 ng/mLInsufficiency : 20-24 ng/mLOptimal: 25-80 ng/mL Lab Interpretation (test Normal code = 91721-0) [facility] CampusUREA NITROGEN, URINE [id number] 15:44:00 Test Item Value Reference Range Interpretation Comments UREA N UR (test code = 3335385415) 114 mg/dL [facility] CampusCT THORAX WO [id number] 15:23:12 1. ?Pulmonary edema with moderate volume [...] sagittal MPR images were generated and reviewed.(Display hzaxm-ps-dkay = 35 cm) FINDINGS: Lower neck/thyroid: Unremarkable. [...] sagittal MPR images were generated and reviewed.(Display xhihp-lz-nywo = 35 cm)FINDINGS:Lower neck/thyroid: Unremarkable.Lungs: Centrilobular septal [...] reviewed this study and agree with theabove report.[facility]PO[facility] GL[facility]SE (AUT[facility]ATED) 2020-05-30 14:53:00 Test Item Value Reference Range Interpretation Comments POCT GLU (test code = 2571583396) 100 mg/dL 70-110 Lab Interpretation (test code = Normal 20932-4) [facility] CampusVITAMIN B12, [id number] 13:07:00 Test Item Value Reference Range Interpretation Comments VIT B12 (test code = 412 pg/mL 240-930 2228195997) EMIR (test code = EMIR) Biotin has been reported to cause a positive bias, interpret results relative to patient's use of biotin. Lab Interpretation (test Normal code = 16301-4) [facility] CampusFOLATE2020-09-11 13:07:00 Test Item Value Reference Range Interpretation Comments FOLATE SER (test code = 8.4 ng/mL 3-20 Biot in has been 5286718115) reported to cau se a positive bias, interpret resul ts relative to patient's use o f biotin. Lab Interpretation (test Normal code = 71944-0) [facility] CampusCORONAVIRUS COVID-19 [id number] 12:49:00 Test Item Value Reference Range Interpretation Comments SARS-CoV-2 PCR (test Not Detected Not Detected code = 27429-5) EMIR (test code = EMIR) [employer] Xpert ?Xpress SARS-CoV-2 Assay is a rapid, real-time RT-PCR test intended for the qualitative detection of nucleic acid from the SARS-CoV-2 in nasopharyngeal (REPRESENTATIVE) specimens. It is used under Emergency Use [...] indicated. Lab Interpretation Normal (test code = 83134-9) [facility] CampusRESPIRATORY PANEL BY [id number] 12:44:00 Test Item Value Reference Range Interpretation Comments Adenovirus (test code = Negative Negative 70248-3) Coronavirus HKU1 (test Negative Negative code = 77284-3) Coronavirus NL63 (test Negative Negative code = 77563-1) Coronavirus 229E (test Negative Negative code = 99034-8) Coronavirus OC43 (test Negative Negative code = 84994-3) Human Metapneumovirus Negative Negative (test code = 68251-4) Human Negative Negative Rhinovirus/Enterovirus (test code = 89650-0) Influenza A (test code = Negative Negative 46535-5) Influenza B (test code = Negative Negative 38820-8) Parainfluenza Virus 1 Negative Negative (test code = 65630-4) Parainfluenza Virus 2 Negative Negative (test code = 00693-7) Parainfluenza Virus 3 Negative Negative (test code = 90012-1) Parainfluenza Virus 4 Negative Negative (test code = 25782-6) Respiratory Syncytial Negative Negative Virus (test code = 55827-4) Bordetella parapertussis Negative Negative (test code = 01528-9) Bordetella pertussis Negative Negative (test code = 25533-7) Chlamydia pneumoniae Negative Negative (test code = 73895-4) Mycoplasma pneumoniae Negative Negative (test code = 64181-0) EMIR (test code = EMIR) Negative:A negative result does not rule-out infection. ?This assay does not test for all potential infectious agents. ? Positive:A positive test result does not necessarily indicate the presence of viable organism. ? Lab Interpretation (test Normal code = 04600-1) [facility] CampusPROCALCITONIN2020-09-11 12:14:00 Test Item Value Reference Range Interpretation Comments Procalcitonin (test 0.06 ng/mL <0.07 code = 0119625519) EMIR (test code = EMIR) INTERPRETATION OF [...] lung abscess/empyema. For further information please refer to:[email or web address] Lab Interpretation Normal (test code = 83861-8) [facility] CampusOSMOLALITY [id number] 11:49:00 Test Item Value Reference Range Interpretation Comments OSMOLALITY (test code = See_Comment [Au tomated message] 6426426062) The system [employer] generated this result transmitted ref erence range: 278 - 30 5 mOsm/kg. The re ference range was not u sed to interpret this result as normal/abnor mal. Lab Interpretation (test Normal code = 51698-0) [facility] CampusN-TERMINAL [id number] 11:19:00 Test Item Value Reference Range Interpretation Comments NT-proBNP (test code 36218 pg/mL See_Comment H [Autom ated = 0184692496) message] The system which generated this result transmitted reference range : <=450. The reference range was not used to interpret this result as normal/abnormal . EMIR (test code = EMIR) Biotin has been reported to cause a negative bias, interpret results relative to patient's use of biotin. Lab Interpretation Abnormal (test code = 39165-8) [facility] CampusSEDIMENTATION [id number] 11:01:00 Test Item Value Reference Range Interpretation Comments ESR (test code = See_Comment H [Automated message] 7161656447) The system [employer] generated this result transmitted ref erence range: 0 - 10 m m/HR. The reference r martin was not used to interpret this result as normal/abnor mal. Lab Interpretation (test Abnormal code = 68269-0) [facility] CampusTROPONIN [id number] 10:57:00 Test Item Value Reference Range Interpretation Comments TROPONIN I (test 0.233 ng/mL See_Comment H [Automated code = 6138892019) message] The system which generated this result [...] ? Lab Interpretation Abnormal (test code = 50171-1) [facility] CampusIRO [id number] 10:53:00 Test Item Value Reference Range Interpretation Comments IRON (test code = 6861575490) 37 ug/dL 50-160 L TIBC (test code = 1381640723) 259 ug/dL 250-410 % FE SAT (test code = 9729934751) 14 % 20-50 L Lab Interpretation (test code = Abnormal 04444-5) [facility]. METABOLIC PANEL (86584)2020-05-30 10:44:00 Test Item Value Reference Range Interpretation Comments NA (test code = 135 mmol/L 135-145 8528316880) K (test code = 4.3 mmol/L 3.5-5 0523731533) CL (test code = 98 mmol/L 98-108 3216803748) CO2 TOTAL (test code = 26 mmol/L 23-31 9000596986) AGAP (test code = 2-16 7605219787) BUN (test code = 29 mg/dL 7-23 H 6501155561) GLUCOSE (test code = 127 mg/dL 70-110 H 5174563517) CREATININE (test code = 1.38 mg/dL 0.6-1.25 H 1503661189) TOTAL BILI (test code = 0.9 mg/dL 0.1-1.4 1380731805) CALCIUM (test code = 9.4 mg/dL 8.6-10.6 7818163697) T PROTEIN (test code = 6.6 g/dL 6.3-8.2 3576914847) ALBUMIN (test code = 3.7 g/dL 3.5-5 3217929162) ALK PHOS (test code = 65 U/L 34-122 1359318340) ALTv (test code = 28 U/L 5-50 1742-6) AST(SGOT) (test code = 42 U/L 13-40 H 5182632997) eGFR Calculation mL/min/1.73m2 (Non-) (test code = 2578004953) eGFR Calculation mL/min/1.73m2 () (test code = 1842572899) EMIR (test code = EMIR) Association of [...] tests). Lab Interpretation Abnormal (test code = 14707-3) [facility] CampusMAGNESIUM2020-09-11 10:44:00 Test Item Value Reference Range Interpretation Comments MAGNESIUM (test code = 6849741771) 1.4 mg/dL 1.7-2.4 L Lab Interpretation (test code = Abnormal 64980-1) [facility] CampusURIC [id number] 10:44:00 Test Item Value Reference Range Interpretation Comments URIC ACID (test code = 0337430242) 7.8 mg/dL 3.6-8 Lab Interpretation (test code = Normal 28730-7) [facility] CampusPROTEIN CREAT RATIO URINE [id number] 10:29:00 Test Item Value Reference Range Interpretation Comments T. PROT U (test code = 104 mg/dL 2888-6) CREAT U (test code = 14.4 mg/dL 6722243774) Protein/Creatinine Ratio 0.0-2.0 H Urine (test code = 9890290670) EMIR (test code = EMIR) Random Urine Total Protein Reference Ranges Random Specimen: ? Less than 10 mg/dLFirst Morning Specimen: ? ?Less than 20 mg/dL ? Lab Interpretation (test Abnormal code = 47541-4) [facility] CampusCB WITH [id number] 10:28:00 Test Item Value Reference Range Interpretation [...] RDW-SD (test code = 47.6 fL 38.5-51.6 94707-8) RDW-CV (test code = 14.2 % 12.1-15.4 788-0) PLT (test code = See_Comment L [Automated 777-3) message] The sy stem which generated this result transmitted reference range : 150 - 328 10*3/ ?L. The reference r martin was not used to interpret this result as normal/abnormal . MPV (test code = 10.5 fL 9.8-13 88816-6) NRBC/100 WBC (test See_Comment [Automat ed code = 5999646210) message] The system which generated this result transmitted reference range : 0.0 - 10.0 /100 WBCs. The refer ence range was not u sed to interpret th is result as normal/abnormal . NRBC x10^3 (test code <0.01 See_Comment [Auto mated = 0420143112) message] The s ystem which generated this result transmitted reference range : 10*3/?L. The reference range was not used to interpret this result as normal/abnormal . GRAN MAT (NEUT) % 83.1 % (test code = 770-8) IMM GRAN % (test code 0.40 % = 0983607992) LYMPH % (test code = 3.7 % 736-9) MONO % (test code = 11.8 % 5905-5) EOS % (test code = 0.4 % 713-8) BASO % (test code = 0.6 % 706-2) GRAN MAT x10^3(ANC) 4.52 10*3/uL 1.99-6.95 (test code = 5826013200) IMM GRAN x10^3 (test <0.03 0-0.06 code = 3112512932) LYMPH x10^3 (test code 0.20 10*3/uL 1.09-3.23 L = 731-0) MONO x10^3 (test code 0.64 10*3/uL 0.36-1.02 = 742-7) EOS x10^3 (test code = <0.03 0.06-0.53 L 711-2) BASO x10^3 (test code 0.03 10*3/uL 0.01-0.09 = 704-7) Lab Interpretation Abnormal (test code = 53809-5) [facility] CampusSODIUM, URINE [id number] 10:25:00 Test Item Value Reference Range Interpretation Comments NA URINE (test code = 8789944081) 123 mmol/L [facility] CampusPROTHROMBIN TIME / [id number] 08:09:00 Test Item Value Reference Range Interpretation Comments PROTIME PATIENT (test See_Comment [Auto mated message] code = 5964-2) The system [employer] generated this result transmitted ref erence range: 12.0 - 1 4.7 Seconds. The re ference range was not u sed to interpret this result as normal/abnor mal. INR (test code = 6301-6) Nor mal INR <1.1; Warfarin Therap eutic range 2.0 to 3. 0 or 2.5 to 3.5, dep ending upon the indica tions. Lab Interpretation (test Normal code = 65254-3) [facility] CampusGLYCOSYLATED HEMOGLOBIN (A1C)2020-05-30 07:33:00 Test Item Value Reference Range Interpretation Comments HGB A1C (test code = 5.4 % 4-6 4548-4) EMIR (test code = EMIR) %A1C (NGSP) Interpretation (ADA)4.8-5.6 ? ? Normal or (Non-Diabetic Range)5.7-6.4 ? ? Increased Risk (Pre-Diabetic)>6.5 ?Diabetes Indicated Lab Interpretation Normal (test code = 70928-0) [facility] (65187)(TOTAL CHOLESTEROL, TRIGLYCERIDES, HDL)2020-05-30 07:20:00 Test Item Value Reference Range Interpretation Comments CHOL (test code = 174 mg/dL 120-200 2770137988) HDL (test code = 37 mg/dL >40 L 1730795940) HDLC RATIO (test code = See_Comment [Au tomated message] 3923237757) The system [employer] generated this result transmit moshe reference range : <=5.0. The refe rence range was not u sed to interpret th is result as normal/abnormal . TRIG (test code = 85 mg/dL 30-170 3368336925) LDL CHOL (test code = 120 mg/dL See_Comment [Auto mated message] 03118-7) The system [employer] generated this result transmit moshe reference range : <=160. The refe rence range was not u sed to interpret th is result as normal/abnormal . VLDL (test code = 17 mg/dL 5-60 8730693686) Lab Interpretation (test Abnormal code = 53305-0) [facility]AT[facility] [id number] 07:19:00 Test Item Value Reference Range Interpretation Comments CK (test code = 5082443461) 88 U/L 33-194 Lab Interpretation (test code = Normal 48123-9) [facility] [id number] 07:19:00 Test Item Value Reference Range Interpretation Comments URIC ACID (test code = 4205762932) 7.9 mg/dL 3.6-8 Lab Interpretation (test code = Normal 20712-3) [facility]FERRITIN [id number] 06:48:00 Test Item Value Reference Range Interpretation Comments FERRITIN (test code = 73.2 ng/mL 18-464 1120863935) EMIR (test code = EMIR) Biotin has been reported to cause a negative bias, interpret results relative to patient's use of biotin. Lab Interpretation (test Normal code = 23645-0) [facility] CampusTHYROID STIMULATING [id number] 06:46:00 Test Item Value Reference Range Interpretation Comments TSH (test code = See_Comment [Automated message] 0692357021) The system [employer] generated this result transmitted ref erence range: 0.45 - 4 .70 mIU/L. The refe rence range was not u sed to interpret this result as normal/abnor mal. Lab Interpretation (test Normal code = 34347-9) [facility]MAGNESIUM2020-09-11 06:19:00 Test Item Value Reference Range Interpretation Comments MAGNESIUM (test code = 8533826240) 1.6 mg/dL 1.7-2.4 L Lab Interpretation (test code = Abnormal 59622-5) [facility]PHOSPHORUS2020-09-11 06:19:00 Test Item Value Reference Range Interpretation Comments PHOSPHORUS (test code = 7740593423) 2.9 mg/dL 2.5-5 Lab Interpretation (test code = Normal 43606-9) [facility]URINALYSIS2020-09-11 04:26:00 Test Item Value Reference Range Interpretation Comments APPEARANCE (test code = Clear Clear 4269002700) COLOR (test code = Yellow Yellow 7235318328) PH (test code = 4.8-8.0 1689372588) SP GRAVITY (test code = 1.003-1.030 7844945336) GLU U QUAL (test code = Normal Normal 4672501631) BLOOD (test code = 1+ Negative A 1112424402) KETONES (test code = Negative Negative 0416341365) PROTEIN (test code = 500 mg/dL Negative A 2887-8) UROBILIN (test code = Normal Normal 0270273994) BILIRUBIN (test code = Negative Negative 4453096288) NITRITE (test code = Negative Negative 4728381349) LEUK MARLENA (test code = Negative Negative 3960366158) RBC/HPF (test code = See_Comment H [Autom ated message] 7705895713) The system [employer] generated this result transmit moshe reference range : 0 - 3 HPF. The refe rence range was not u sed to interpret th is result as normal/abnormal . WBC/HPF (test code = See_Comment [Autom ated message] 6737188261) The system [employer] generated this result transmit moshe reference range : 0 - 5 HPF. The refe rence range was not u sed to interpret th is result as normal/abnormal . BACTERIA (test code = Few Negative A 2757609677) MUCOUS (test code = Slight Negative LPF A 9964266914) HYAL CAST (test code = See_Comment H [Aut omated message] 5306701183) The system [employer] generated this result transmit moshe reference range : <=2 LPF. The refere nce range was not u sed to interpret th is result as normal/abnormal . GRAN CASTS (test code = See_Comment H [Au tomated message] 1461846974) The system [employer] generated this result transmit moshe reference range : <=1 LPF. The refere nce range was not u sed to interpret th is result as normal/abnormal . Lab Interpretation (test Abnormal code = 60255-9) [facility]XR CHEST 1 [id number] 03:33:16 Multifocal interstitial and airspace opacities are concerning forbronchopneumonia. These findings can also be seen with atypical infectiousprocess, including COVID-19 pneumonia. Disclaimer: Generally,the findings on chest imaging in COVID-19 are notspecific, and overlap with other infections, including influenza, H1N1,SARS and MERS.According to the Centers for Disease Control (CDC) and recent statement ofthe [employer], viral testing remains the [...] Disease Control (CDC) and recent statement ofthe [employer], viral testing remains the only specificmethod of diagnosis. Confirmation with the viral test is required, even ifradiologic findings are suggestive of COVID-[address]Preliminary Report Dictated by Resident: Darvin Duarte, Ming Lara MD., have reviewed this study and agree with the abovereport.[facility]COVID-[facility] (ID NOW RAPID TESTING)2020-05-30 01:54:00 Test Item Value Reference Range Interpretation Comments SARS-CoV-2 Rapid ID NOW Not Detected Not Detected (test code = 19321-2) EMIR (test code = EMIR) ID NOW COVID-19 Assay is an isothermal nucleic acid amplification test intended for the qualitative detection of nucleic acid from SARS-CoV-2 viral RNA in nasopharyngeal (REPRESENTATIVE) specimens. It is used under Emergency Use [...] indicated. Lab Interpretation Normal (test code = 77962-7) [facility] CampusMARISN [id number] 01:52:00 Test Item Value Reference Range Interpretation Comments TROPONIN I (test 0.148 ng/mL See_Comment H [Automated code = 1213141972) message] The system which generated this result [...] ? Lab Interpretation Abnormal (test code = 48964-1) [facility] CampusN-TERMINAL [id number] 01:49:00 Test Item Value Reference Range Interpretation Comments NT-proBNP (test code 50059 pg/mL See_Comment H [Autom ated = 2109667221) message] The system which generated this result transmitted reference range : <=450. The reference range was not used to interpret this result as normal/abnormal . EMIR (test code = EMIR) Biotin has been reported to cause a negative bias, interpret results relative to patient's use of biotin. Lab Interpretation Abnormal (test code = 36468-4) [facility]. METABOLIC PANEL (12785)2020-05-30 01:41:00 Test Item Value Reference Range Interpretation Comments NA (test code = 135 mmol/L 135-145 2565210726) K (test code = 4.0 mmol/L 3.5-5 3265952244) CL (test code = 98 mmol/L 98-108 1695260089) CO2 TOTAL (test code = 27 mmol/L 23-31 6035031556) AGAP (test code = 2-16 0722547472) BUN (test code = 27 mg/dL 7-23 H 9114771862) GLUCOSE (test code = 143 mg/dL 70-110 H 4063865131) CREATININE (test code = 1.51 mg/dL 0.6-1.25 H 7023646398) TOTAL BILI (test code = 0.6 mg/dL 0.1-1.0 3409097714) CALCIUM (test code = 9.5 mg/dL 8.6-10.6 2874228636) T PROTEIN (test code = 6.9 g/dL 6.3-8.2 2585602010) ALBUMIN (test code = 3.9 g/dL 3.5-5 3120017577) ALK PHOS (test code = 78 U/L 34-122 4582472672) ALTv (test code = 29 U/L 5-50 1742-6) AST(SGOT) (test code = 37 U/L 13-40 0584075222) eGFR Calculation mL/min/1.73m2 (Non-) (test code = 6392198422) eGFR Calculation mL/min/1.73m2 () (test code = 7397847683) EMIR (test code = EMIR) Association of [...] tests). Lab Interpretation Abnormal (test code = 72422-8) [facility] HEAD WO [id number] 01:40:13 No acute intracranial hemorrhage or mass [...] aircell.IMPRESSIONNo acute intracranial hemorrhage or mass effect.[facility] GLUCOSE (AUTOMATED)2020-05-30 01:23:00 Test Item Value Reference Range Interpretation Comments POCT GLU (test code = 0868318244) 130 mg/dL 70-110 H Lab Interpretation (test code = Abnormal 42714-8) [facility] WITH [id number] 01:22:00 Test Item Value Reference Range Interpretation [...] RDW-SD (test code = 46.8 fL 38.5-51.6 17624-6) RDW-CV (test code = 13.9 % 12.1-15.4 788-0) PLT (test code = See_Comment [Automated 777-3) message] The sy stem which generated this result transmitted reference range : 150 - 328 10*3/ ?L. The reference r martin was not used to interpret this result as normal/abnormal . MPV (test code = 9.9 fL 9.8-13 10322-9) NRBC/100 WBC (test See_Comment [Automat ed code = 7097133181) message] The system which generated this result transmitted reference range : 0.0 - 10.0 /100 WBCs. The refer ence range was not u sed to interpret th is result as normal/abnormal . NRBC x10^3 (test code <0.01 See_Comment [Auto mated = 0048011662) message] The s ystem which generated this result transmitted reference range : 10*3/?L. The reference range was not used to interpret this result as normal/abnormal . GRAN MAT (NEUT) % 82.3 % (test code = 770-8) IMM GRAN % (test code 0.50 % = 8065685227) LYMPH % (test code = 5.5 % 736-9) MONO % (test code = 10.6 % 5905-5) EOS % (test code = 0.6 % 713-8) BASO % (test code = 0.5 % 706-2) GRAN MAT x10^3(ANC) 5.23 10*3/uL 1.99-6.95 (test code = 7013718108) IMM GRAN x10^3 (test 0.03 10*3/uL 0-0.06 code = 7858180607) LYMPH x10^3 (test code 0.35 10*3/uL 1.09-3.23 L = 731-0) MONO x10^3 (test code 0.67 10*3/uL 0.36-1.02 = 742-7) EOS x10^3 (test code = 0.04 10*3/uL 0.06-0.53 L 711-2) BASO x10^3 (test code 0.03 10*3/uL 0.01-0.09 = 704-7) Lab Interpretation Abnormal (test code = 44231-1) [facility] + LACTIC [id number] 01:14:00 Test Item Value Reference Range Interpretation Comments PH (test code = 2) 7.35-7.45 PCO2 (test code = See_Comment [Automat ed 8099678322) message] The sy stem which generated this result transmitted reference range : 35 - 45 mmHg. The reference range was not used to interpret this result as normal/abnormal . PO2 (test code = See_Comment H [Automated 2085727908) message] The sy stem which generated this result transmitted reference range : 80 - 100 mmHg. The reference range was not used to interpret this result as normal/abnormal . HCO3 (test code = See_Comment [Automate d 5615402644) message] The sy stem which generated this result transmitted reference range : 22 - 26 mEq/L. The reference range was not used to interpret this result as normal/abnormal . BE (test code = See_Comment [Automated 3924121588) message] The sy stem which generated this result transmitted reference range : -3.0 - 3.0 mEq/ L. The reference r martin was not used to interpret this result as normal/abnormal . LACTIC ACID (test code 1.10 mmol/L = 6812792678) Lab Interpretation Abnormal (test code = 15130-9) [facility]SE(AGE >30DAYS)2020-05-30 01:04:00 Test Item Value Reference Range Interpretation Comments POCT Glu (age>30days) (test code = 130 mg/dL 70-110 A 3342) Lab Interpretation (test code = Abnormal 43006-8) [facility]
== END 2022-04-02 04:10 | disposition expired | DRG 388 ==
LOC: ER 02:57 → ERHOLD 07:43 → 2ND 12:25 → 3RD-ICU 03-31 09:23
PROVIDERS: ADMIT Hospitalist; ATTEND Hospitalist
PROC: 5A12012 Performance of Cardiac Output, Single, Manual (ICD-10-PCS; principal; 2022-03-31)
PROC: 0BH17EZ Insertion of Endotracheal Airway into Trachea, Via Natural or Artificial Opening (ICD-10-PCS; 2022-03-31)
PROC: 06HY33Z Insertion of Infusion Device into Lower Vein, Percutaneous Approach (ICD-10-PCS; 2022-03-31)
PROC: 3E033XZ Introduction of Vasopressor into Peripheral Vein, Percutaneous Approach (ICD-10-PCS; 2022-03-31)
PROC: 5A1945Z Respiratory Ventilation, 24-96 Consecutive Hours (ICD-10-PCS; 2022-03-31)
DX: K56.41 Fecal impaction (principal); A41.9 Sepsis, unspecified organism; J96.00 Acute respiratory failure, unspecified whether with hypoxia or hypercapnia; J69.0 Pneumonitis due to inhalation of food and vomit; R65.21 Severe sepsis with septic shock; I13.0 Hypertensive heart and chronic kidney disease with heart failure and stage 1 through stage 4 chronic kidney disease, or unspecified chronic kidney disease; N18.4 Chronic kidney disease, stage 4 (severe); I50.22 Chronic systolic (congestive) heart failure; E87.2 Acidosis; Z95.810 Presence of automatic (implantable) cardiac defibrillator; I25.10 Atherosclerotic heart disease of native coronary artery without angina pectoris; E11.22 Type 2 diabetes mellitus with diabetic chronic kidney disease; E78.5 Hyperlipidemia, unspecified; F32.A Depression, unspecified; J44.9 Chronic obstructive pulmonary disease, unspecified; G20 Parkinson's disease; Z20.822 Contact with and (suspected) exposure to COVID-19; Z66 Do not resuscitate; Z86.73 Personal history of transient ischemic attack (TIA), and cerebral infarction without residual deficits
CPT/HCPCS: 36415; 70450; 71045; 74018; 74176; 80053; 82805; 82947; 83605; 83690; 83735; 83880; 84100; 84145; 84484; 85025; 94002; 94003; 96372; 96374; 96375; 99285; J0171; J0744; J1720; J1815; J1940; J2270; J2370; J2405; J2543; J3370; J3490; J7030; J7040; J7042; J7060; U0003